=== PATIENT | male | born 1965 | race Caucasian/White ===

== ENCOUNTER 2016-09-11 21:17 | Inpatient (IN) | payer MEDICARE ==
[2016-09-11] MEDS ORDERED: RX INFO: IV CONTRAST WAS GIVEN 1 EACH MISC MISCELLANE PRN (21:40)
[2016-09-11] MEDS ORDERED: SODIUM CHLORIDE 0.9% 1,000 ML IV STA (21:40)
--- NOTE | 2016-09-11 21:44 | ED ---
General Adult HPI - General Chief complaint: Weakness Stated complaint: dizziness Time Seen by Provider: 09/11/16 21:34 Source: patient, RN notes reviewed Mode of arrival: wheelchair Limitations: no limitations - History of Present Illness Initial comments: Patient is a pleasant 50-year-old male presenting to the emergency department complaining of generalized weakness. Onset was just a couple hours ago. Patient does have dizziness that feels like a spinning type sensation. Patient feels slightly foggy with his thinking. No isolated area of weakness. No chest pain or dyspnea. No neck or back pain. No headache. No abdominal pain. Patient has had some episodes of vertigo in the past however not quite like this. - Related Data Home Medications Medication Instructions Recorded Confirmed DULoxetine HCL [Cymbalta] 30 mg PO DAILY 09/11/16 09/11/16 Gabapentin [Neurontin] 400 mg PO TID 09/11/16 09/11/16 Lisinopril [Zestril] 20 mg PO DAILY 09/11/16 09/11/16 Omeprazole 20 mg PO BID 09/11/16 09/11/16 QUEtiapine FUMARATE [SEROquel] 300 mg PO HS 09/11/16 09/11/16 busPIRone HCL 15 mg PO TID 09/11/16 09/11/16 lamoTRIgine [LaMICtal] 200 mg PO DIRECTED 09/11/16 09/11/16 Allergies Allergy/AdvReac Type Severity Reaction Status Date / Time No Known Allergies Allergy Verified 09/11/16 21:23 Review of Systems ROS Statement: Those systems with pertinent positive or pertinent negative responses have been documented in the HPI. ROS Other: All systems not noted in ROS Statement are negative. Constitutional: Denies: fever Eyes: Denies: eye pain ENT: Denies: ear pain Respiratory: Denies: cough Cardiovascular: Denies: chest pain Endocrine: Reports: fatigue Gastrointestinal: Denies: abdominal pain, vomiting Genitourinary: Denies: dysuria Musculoskeletal: Denies: back pain Skin: Denies: rash Neurological: Reports: weakness (Generalized), vertigo. Denies: headache Past Medical History Past Medical History: Hypertension Additional Past Medical History / Comment(s): GI Bleed History of Any Multi-Drug Resistant Organisms: None Reported Additional Past Surgical History / Comment(s): Forearm Past Psychological History: Anxiety, Depression Smoking Status: Current every day smoker Past Alcohol Use History: Heavy Past Drug Use History: None Reported, Heroin General Exam Limitations: no limitations General appearance: other (Patient appears drowsy however does carry conversation and follows commands.) Head exam: Present: atraumatic, normocephalic Eye exam: Present: normal appearance, PERRL, EOMI. Absent: nystagmus ENT exam: Present: normal oropharynx Neck exam: Present: normal inspection. Absent: tenderness Respiratory exam: Present: normal lung sounds bilaterally Cardiovascular Exam: Present: regular rate, normal rhythm GI/Abdominal exam: Present: soft. Absent: tenderness Extremities exam: Present: normal inspection Neurological exam: Present: alert, oriented X3, CN II-XII intact. Absent: motor sensory deficit Expanded Patient oriented to: Present: person, place, time Speech: Present: fluid speech Cranial nerves: EOM's Intact: Normal Cerebellar function: Finger to Nose: Normal Sensory exam: Upper Extremity Light Touch: Normal, Lower Extremity Light Touch: Normal Motor strength exam: RUE: 5, LUE: 5, RLE: 5, LLE: 5 Eye Response: (4) open spontaneously Motor Response: (6) obeys commands Verbal Response: (5) oriented Psychiatric exam: Present: normal affect, normal mood Skin exam: Absent: rash Course Vital Signs 09/11/16 09/11/16 09/11/16 21:21 21:43 22:33 Temperature 98 F Pulse Rate 93 94 Respiratory 20 18 Rate Blood Pressure 61/35 64/45 103/68 O2 Sat by Pulse 98 98 Oximetry EKG Findings - EKG Comments: EKG Findings:: Normal sinus rhythm at 84. ND 140. QRS 84. QT 380. QTC 449. Normal axis. Normal QRS. Normal ST-T. Medical Decision Making - Medical Decision Making Patient reevaluated and feels somewhat better. Secondary to hypotension patient will be admitted. Case was discussed in detail with Dr. larose, who will admit for hospital call. Patient updated on results and plan. Systolic blood pressure 100 with fluids. - Lab Data Result diagrams: 09/11/16 21:41 09/11/16 21:41 Lab Results 09/11/16 09/11/16 09/11/16 Range/Units 21:41 21:41 21:41 WBC 5.8 (3.8-10.6) k/uL RBC 3.82 L (4.30-5.90) m/uL Hgb 12.0 L (13.0-17.5) gm/dL Hct 37.7 L (39.0-53.0) % MCV 98.6 (80.0-100.0) fL MCH 31.4 (25.0-35.0) pg MCHC 31.8 (31.0-37.0) g/dL RDW 13.6 (11.5-15.5) % Plt Count 266 (150-450) k/uL Neutrophils % 66 % Lymphocytes % 20 % Monocytes % 5 % Eosinophils % 4 % Basophils % 2 % Neutrophils # 3.9 (1.3-7.7) k/uL Lymphocytes # 1.2 (1.0-4.8) k/uL Monocytes # 0.3 (0-1.0) k/uL Eosinophils # 0.2 (0-0.7) k/uL Basophils # 0.1 (0-0.2) k/uL PT (9.0-12.0) sec INR (<1.1) APTT (22.0-30.0) sec Sodium 138 (137-145) mmol/L Potassium 3.9 (3.5-5.1) mmol/L Chloride 106 (98-107) mmol/L Carbon Dioxide 21 L (22-30) mmol/L Anion Gap 11 mmol/L BUN 16 (9-20) mg/dL Creatinine 0.80 (0.66-1.25) mg/dL Est GFR (MDRD) Af Amer >60 (>60 ml/min/1.73 sqM) Est GFR (MDRD) Non-Af >60 (>60 ml/min/1.73 sqM) Glucose 137 H (74-99) mg/dL Calcium 9.2 (8.4-10.2) mg/dL Phosphorus 5.1 H (2.5-4.5) mg/dL Magnesium 1.7 (1.6-2.3) mg/dL Total Bilirubin 0.5 (0.2-1.3) mg/dL AST 41 (17-59) U/L ALT 49 (21-72) U/L Alkaline Phosphatase 67 (38-126) U/L Total Creatine Kinase 43 L (55-170) U/L CK-MB (CK-2) 1.3 (0.0-2.4) ng/mL CK-MB (CK-2) Rel Index 3.0 Troponin I <0.012 (0.000-0.034) ng/mL Total Protein 6.2 L (6.3-8.2) g/dL Albumin 3.5 (3.5-5.0) g/dL TSH 2.070 (0.465-4.680) mIU/L Free T4 0.86 (0.78-2.19) ng/dL Free T3 pg/mL 4.0 (2.8-5.3) pg/ml Urine Color Urine Appearance (Clear) Urine pH (5.0-8.0) Ur Specific [place] (1.001-1.035) Urine Protein (Negative) Urine Glucose (UA) (Negative) Urine Ketones (Negative) Urine Blood (Negative) Urine Nitrate (Negative) Urine Bilirubin (Negative) Urine Urobilinogen (<2.0) mg/dL Ur Leukocyte Esterase (Negative) Urine Opiates Screen (NotDetected) Ur Oxycodone Screen (NotDetected) Urine Methadone Screen (NotDetected) Ur Propoxyphene Screen (NotDetected) Ur Barbiturates Screen (NotDetected) U Tricyclic Antidepress (NotDetected) Ur Phencyclidine Scrn (NotDetected) Ur Amphetamines Screen (NotDetected) U Methamphetamines Scrn (NotDetected) U Benzodiazepines Scrn (NotDetected) Urine Cocaine Screen (NotDetected) U Marijuana (THC) Screen (NotDetected) Serum Alcohol <10 mg/dL 09/11/16 09/11/16 Range/Units 21:41 23:00 WBC (3.8-10.6) k/uL RBC (4.30-5.90) m/uL Hgb (13.0-17.5) gm/dL Hct (39.0-53.0) % MCV (80.0-100.0) fL MCH (25.0-35.0) pg MCHC (31.0-37.0) g/dL RDW (11.5-15.5) % Plt Count (150-450) k/uL Neutrophils % % Lymphocytes % % Monocytes % % Eosinophils % % Basophils % % Neutrophils # (1.3-7.7) k/uL Lymphocytes # (1.0-4.8) k/uL Monocytes # (0-1.0) k/uL Eosinophils # (0-0.7) k/uL Basophils # (0-0.2) k/uL PT 10.2 (9.0-12.0) sec INR 1.0 (<1.1) APTT 23.4 (22.0-30.0) sec Sodium (137-145) mmol/L Potassium (3.5-5.1) mmol/L Chloride (98-107) mmol/L Carbon Dioxide (22-30) mmol/L Anion Gap mmol/L BUN (9-20) mg/dL Creatinine (0.66-1.25) mg/dL Est GFR (MDRD) Af Amer (>60 ml/min/1.73 sqM) Est GFR (MDRD) Non-Af (>60 ml/min/1.73 sqM) Glucose (74-99) mg/dL Calcium (8.4-10.2) mg/dL Phosphorus (2.5-4.5) mg/dL Magnesium (1.6-2.3) mg/dL Total Bilirubin (0.2-1.3) mg/dL AST (17-59) U/L ALT (21-72) U/L Alkaline Phosphatase (38-126) U/L Total Creatine Kinase (55-170) U/L CK-MB (CK-2) (0.0-2.4) ng/mL CK-MB (CK-2) Rel Index Troponin I (0.000-0.034) ng/mL Total Protein (6.3-8.2) g/dL Albumin (3.5-5.0) g/dL TSH (0.465-4.680) mIU/L Free T4 (0.78-2.19) ng/dL Free T3 pg/mL (2.8-5.3) pg/ml Urine Color Light Yellow Urine Appearance Clear (Clear) Urine pH 7.0 (5.0-8.0) Ur Specific [place] 1.011 (1.001-1.035) Urine Protein Trace H (Negative) Urine Glucose (UA) Negative (Negative) Urine Ketones Negative (Negative) Urine Blood Negative (Negative) Urine Nitrate Negative (Negative) Urine Bilirubin Negative (Negative) Urine Urobilinogen <2.0 (<2.0) mg/dL Ur Leukocyte Esterase Negative (Negative) Urine Opiates Screen Not Detected (NotDetected) Ur Oxycodone Screen Not Detected (NotDetected) Urine Methadone Screen Not Detected (NotDetected) Ur Propoxyphene Screen Not Detected (NotDetected) Ur Barbiturates Screen Not Detected (NotDetected) U Tricyclic Antidepress Detected H (NotDetected) Ur Phencyclidine Scrn Not Detected (NotDetected) Ur Amphetamines Screen Not Detected (NotDetected) U Methamphetamines Scrn Not Detected (NotDetected) U Benzodiazepines Scrn Not Detected (NotDetected) Urine Cocaine Screen Not Detected (NotDetected) U Marijuana (THC) Screen Not Detected (NotDetected) Serum Alcohol mg/dL - Radiology Data Radiology results: report reviewed (CTA of the head and neck shows no acute process), image reviewed (Computed tomography scan of the brain and chest x-ray shows no acute process.) Disposition Clinical Impression: Hypotension Disposition: ADMITTED IP TO THIS HOSP
[2016-09-11 21:51] LABS: Basophils # (A) 0.1 k/uL (0-0.2); Basophils % (A) 2 %; CH 32.1; CHCM 32.7; Eosinophils # (A) 0.2 k/uL (0-0.7); Eosinophils % (A) 4 %; HCT 37.7 % (39.0-53.0); HDW 2.33; Luc # (Auto) 0.16; Luc % (Auto) 3; Lymphocytes # (A) 1.2 k/uL (1.0-4.8); Lymphocytes % (A) 20 %; MCH 31.4 pg (25.0-35.0); MCHC 31.8 g/dL (31.0-37.0); MCV 98.6 fL (80.0-100.0); Mean Platelet Volume 7.2; Monocytes # (A) 0.3 k/uL (0-1.0); Monocytes % (A) 5 %; Neutrophils # (A) 3.9 k/uL (1.3-7.7); Neutrophils % (A) 66 %; RBC 3.82 m/uL (4.30-5.90); RDW 13.6 % (11.5-15.5); WBC 5.8 k/uL (3.8-10.6); WBC (Perox) 6.22
[2016-09-11 22:01] LABS: Partial Thromboplastin Time 23.4 sec (22.0-30.0); Prothrombin Time 10.2 sec (9.0-12.0)
[2016-09-11 22:05] LABS: ALT 49 U/L (21-72); AST 41 U/L (17-59); Alcohol <10 mg/dL; Alkaline Phosphatase 67 U/L (38-126); Anion Gap 11 mmol/L; Blood Urea Nitrogen 16 mg/dL (9-20); Calcium 9.2 mg/dL (8.4-10.2); Carbon Dioxide 21 mmol/L (22-30); Chloride 106 mmol/L (98-107); Glucose 137 mg/dL (74-99); Magnesium 1.7 mg/dL (1.6-2.3); Non-African American GFR(MDRD) >60 (>60 ml/min/1.73 sqM); Phosphorous 5.1 mg/dL (2.5-4.5); Potassium 3.9 mmol/L (3.5-5.1); Sodium 138 mmol/L (137-145); Total Bilirubin 0.5 mg/dL (0.2-1.3); Total Protein 6.2 g/dL (6.3-8.2)
[2016-09-11 22:14] LABS: Creatine Kinase 43 U/L (55-170)
[2016-09-11 22:28] LABS: Creatine Kinase MB 1.3 ng/mL (0.0-2.4); Troponin I <0.012 ng/mL (0.000-0.034)
--- NOTE | 2016-09-11 22:29 | XR ---
EXAMINATION TYPE: XR chest 2V DATE OF EXAM: 09/11/2016 10:18 PM COMPARISON: NONE HISTORY: Weakness and dizziness TECHNIQUE: Frontal and lateral views of the chest are obtained. FINDINGS: There is elevated left diaphragm. There is some linear density at the lung bases and more on the left side. There is no heart failure. Heart size is normal. There are chest leads. There is ol d right-sided healed rib fracture. IMPRESSION: Bilateral mild atelectasis. Elevated left diaphragm. No heart failure.
--- NOTE | 2016-09-11 22:40 | CT ---
EXAMINATION TYPE: CT brain wo con DATE OF EXAM: 09/11/2016 10:32 PM COMPARISON: NONE HISTORY: Weakness and dizziness CT DLP: mGycm Automated exposure control for dose reduction was used. FINDINGS: The ventricles and sulci appear normal. There is no mass effect nor midline shift. There is no sign o f intracranial hemorrhage. There is some mucosal thickening in the ethmoid and frontal sinuses. Simone rium is intact. IMPRESSION: Frontal and ethmoid sinusitis. No intracranial abnormality.
--- NOTE | 2016-09-11 22:46 | CT ---
EXAMINATION TYPE: CT angio head neck DATE OF EXAM: 09/11/2016 10:32 PM COMPARISON: NONE HISTORY: Weakness and dizziness CT DLP: mGycm Automated exposure control for dose reduction was used. TECHNIQUE: Multiple axial sections were obtained from the aortic arch to the vertex of the brain with intravenou s contrast. FINDINGS: There are 3-D post processed images. There is bilateral patency of the vertebral arteries. There is bilateral patency of the common internet network specialist al and external carotid arteries. There is normal branching pattern of the great vessels on the aorti c arch. There is tortuosity in the distal internal carotid arteries. There is patency of the vertebrobasilar artery system. There is patency of the anterior middle and po sterior cerebral arteries. There is no evidence of aneurysm or neovascularity. There is no mass effec t. There is normal appearance of the venous sinuses. The remainder of exam is unremarkable. IMPRESSION: NEGATIVE CT ANGIOGRAM OF THE NECK. NO EVIDENCE OF HEMODYNAMICALLY SIGNIFICANT STENOSIS. NEGATIVE CT ANGIOGRAM OF THE BRAIN. NO EVIDENCE OF ARTERIAL DISSECTION.
[2016-09-11 23:09] LABS: Appearance,Urine Clear (Clear); Bilirubin,Urine Negative (Negative); Glucose,Urine (UA) Negative (Negative); Ketones,Urine Negative (Negative); Leukocyte Esterase,Urine Negative (Negative); Nitrite,Urine Negative (Negative); Protein,Urine Trace (Negative); Specific Gravity,Urine 1.011 (1.001-1.035); UA Billing (MACRO vs. MICRO) CHEM; Urobilinogen,Urine <2.0 mg/dL (<2.0)
[2016-09-11] MEDS ORDERED: NALOXONE 0.4 MG/ML 1 ML VIAL IV PRN (23:32)
[2016-09-11] MEDS: SODIUM CHLORIDE 0.9% 1,000 ML IV SCH (23:40)
[2016-09-12 01:05] VITALS: RESP 18; BMI 27.4
[2016-09-12 03:26] LABS: Basophils % (A) 0 %; CH 31.5; CHCM 31.6; Eosinophils # (A) 0.2 k/uL (0-0.7); Eosinophils % (A) 4 %; HCT 36.1 % (39.0-53.0); HDW 2.34; HGB 11.6 gm/dL (13.0-17.5); Luc # (Auto) 0.22; Luc % (Auto) 4; Lymphocytes # (A) 1.3 k/uL (1.0-4.8); Lymphocytes % (A) 27 %; MCH 32.2 pg (25.0-35.0); MCHC 32.2 g/dL (31.0-37.0); Mean Platelet Volume 6.4; Monocytes # (A) 0.3 k/uL (0-1.0); Monocytes % (A) 7 %; Neutrophils # (A) 2.9 k/uL (1.3-7.7); Neutrophils % (A) 58 %; RBC 3.61 m/uL (4.30-5.90); RDW 13.6 % (11.5-15.5); WBC (Perox) 4.93
[2016-09-12 03:45] LABS: ALT 49 U/L (21-72); AST 30 U/L (17-59); Alkaline Phosphatase 60 U/L (38-126); Anion Gap 6 mmol/L; Blood Urea Nitrogen 14 mg/dL (9-20); Calcium 8.9 mg/dL (8.4-10.2); Carbon Dioxide 27 mmol/L (22-30); Chloride 108 mmol/L (98-107); Glucose 133 mg/dL (74-99); Non-African American GFR(MDRD) >60 (>60 ml/min/1.73 sqM); Potassium 3.9 mmol/L (3.5-5.1); Sodium 141 mmol/L (137-145); Total Bilirubin 0.5 mg/dL (0.2-1.3); Total Protein 5.7 g/dL (6.3-8.2)
[2016-09-12] MEDS: SODIUM CHLORIDE 0.9% 1,000 ML IV SCH ×2 (08:51→15:43)
[2016-09-12] MEDS ORDERED: LISINOPRIL 20 MG TAB PO SCH (12:15)
[2016-09-12] MEDS ORDERED: DULoxetine HCL 30 MG CAPSULE.DR PO SCH (12:30)
[2016-09-12] MEDS: busPIRone HCl 5 MG TAB PO SCH ×2 (12:38→15:49)
[2016-09-12] MEDS: GABAPENTIN 400 MG CAP PO SCH ×2 (12:38→15:48)
[2016-09-12] MEDS ORDERED: lamoTRIgine 100 MG TAB PO SCH (13:30)
--- NOTE | 2016-09-12 14:06 | HP ---
DATE OF ADMISSION: 09/11/2016 PRESENTING COMPLAINT: Dizzy, lightheaded. HISTORY OF PRESENTING COMPLAINT: This is a 50-year-old patient who has just moved to [place] from [place], has a history of hypertension. Chronic stable conditions include anxiety, depression, GERD, GI bleed. Patient was rushed to go out yesterday evening, took a shower and he thinks he may by mistake, taken an extra dose of Lamictal or an extra dose of Zestril that is 20 mg and subsequently then he started feeling dizzy, unstable, felt just drained. He lives at a three-quarter house and the person who runs the place brought him in. Patient's blood pressure when he first came in her was down to 61/35. CT scan was negative. REVIEW OF SYSTEMS: CONSTITUTIONAL: Tired. HEENT: Dizziness. RESPIRATORY: None. CARDIOVASCULAR: No palpitations or chest pain. GASTROINTESTINAL: Heartburn. GENITOURINARY: None. MUSCULOSKELETAL: None. DERMATOLOGICAL: None. HEMATOLOGICAL: None. LYMPHATICS: None. PSYCHIATRY: Anxiety, depression. NEUROLOGICAL: As above with no focal signs. Past medical history of hypertension, anxiety, depression, GERD, GI bleed. PAST SURGICAL HISTORY: Forearm injury, psych history of anxiety, depression, PTSD. SOCIAL HISTORY: Patient has drank on and off, the last alcohol drinking binge was for 3 months, stopped on June 28, used to smoke, drank two fifths a day. Also did heroin in the past. Large binge; stopped on June 28. Family history of hypertension and lupus. SOCIAL HISTORY: Currently living in a three-quarter house, smokes about 15 cigarettes a day. FAMILY HISTORY: Noncontributory to presentation. HOME MEDICATIONS: 1. Buspirone 50 mg p.o. t.i.d. 2. Zestril 20 mg p.o. daily. 3. Neurontin 40 mg p.o. t.i.d. 4. Cymbalta 30 mg p.o. daily. 5. Lamictal 200 mg as directed. 6. Seroquel 300 mg q.h.s. 7. Omeprazole 20 mg b.i.d. ALLERGIES: None. On exam, vitals on presentation: Temperature 98, pulse 93, respirations 20, blood pressure 61/35, pulse ox 98% on room air. GENERAL APPEARANCE: Average build, lying in bed, tired -appearing. EYES: Pupils equal. Conjunctivae normal. HEENT: External appearance of nose and ears normal. Oral cavity normal. NECK: JVD not raised. Mass not palpable. Respiratory effort normal. LUNGS: Slight decreased breath sounds. CARDIOVASCULAR: First and second sounds are normal. No edema. ABDOMEN: Soft, nontender. Liver and spleen not palpable. LYMPHATIC: No lymph node palpable in neck or axillae. PSYCHIATRY: Alert and oriented x3. Mood and affect normal. DERMATOLOGICAL: Tattoos are present. INVESTIGATIONS: White count 5.8, hemoglobin 12, potassium 3.9. BUN and creatinine are normal. Urine drug screen positive for tricyclic antidepressants, depressions. EKG shows normal sinus rhythm. CT angiogram of the brain, negative. CT scan of the brain, nil acute. ASSESSMENT: 1. Upon discharge, patient presented with acute dizziness, difficulty in speech, after he thinks he may have taken an extra dose of Prinivil. This was confirmed for the fact that patient's blood pressure was low 60 systolic when her first came. I except this to wear out of the system in the next 24 hours. Patient will be worse later towards the evening. Blood pressure was already started to come up. 2. Anxiety, not otherwise specified. 3. Depression, not otherwise specified. 4. Gastroesophageal reflux disease. 5. Essential hypertension. 6. Chronic nicotine dependence. Patient is an active cigarette smoker. PLAN: Keep a close eye on blood pressure. Home medications are resumed except for antihypertensive. If patient is doing better by this evening, patient will probably be let go. Patient advised against smoking. Patient currently does not have a family doctor and is ( ) establishing himself with Dr. Paniagua.
[2016-09-12 16:06] VITALS: BP 152/99; PULSE 78; TEMP 96.8
[2016-09-12] MEDS ORDERED: QUEtiapine 100 MG TAB PO SCH (21:00)
--- NOTE | 2016-09-13 08:36 | EEG ---
DATE OF SERVICE: 09/12/2016 INDICATIONS FOR EXAMINATION: Dizziness and vertigo. AGE: 50Y DESCRIPTION OF PROCEDURE: This EEG was performed using a 21 channel digital electroencephalograph following international 10-20 system. DESCRIPTION OF THE RECORDING: From the beginning of the tracing, with the patient's eyes closed, the background rhythm was mostly consisting of 9 Hz alpha frequency in the posterior occipital leads. No obvious asymmetry is seen. Photic stimulation was performed with a minimal driving response seen. No pathological waves were elicited. Occasional muscle artifacts and movement artifacts are seen. Hyperventilation was not performed. The patient remains awake throughout the tracing. No epileptiform discharges were seen. His EKG lead showed regular rate and rhythm. INTERPRETATION: This awake EEG can be considered within normal limits. There was no asymmetry seen. No epileptiform discharges were noticed. The absence of epileptiform discharges does not rule out the diagnosis of epilepsy. Therefore, clinical correlation is recommended.
[2016-09-13] MEDS ORDERED: PANTOPRAZOLE 40 MG TABLET PO SCH (12:30)
--- NOTE | 2016-09-13 21:21 | DS ---
DATE OF ADMISSION: 09/11/2016 DATE OF DISCHARGE: 09/12/2016 FINAL DIAGNOSES: 1. Acute hypotension due to medication induced. 2. Anxiety, not otherwise specified. 3. Depression, not otherwise specified. 4. Gastroesophageal reflux disease. 5. Essential hypertension. 6. Chronic nicotine dependence. Patient active cigarette smoker. HOSPITAL COURSE: This patient presented for severe dizziness, found to have a blood pressure down to systolic 64 after patient may have taken an extra dose of Prinivil. Patient's blood pressure doing much better, up and out of bed at time of discharge. CT scan of brain was unremarkable. Care was discussed with the patient. Patient counseled against smoking. On exam, LUNGS: Fair air entry. CARDIOVASCULAR: First and second sounds normal. DISCHARGE MEDICATIONS: 1. Cymbalta 30 mg a day. 2. Neurontin 400 mg p.o. t.i.d. 3. Zestril 20 mg p.o. b.i.d. 4. Omeprazole 20 mg b.i.d. 5. Seroquel 200 mg p.o. q.h.s. 6. Buspirone 50 mg p.o. t.i.d. 7. Lamictal 200 mg as directed. 8. Nicotine patch. Patient due to see Dr. Paniagua, follow up with him in 1 week. Care was discussed with the patient.
--- NOTE | 2016-09-18 12:01 | CONS ---
DATE OF CONSULTATION: 09/12/2016 CHIEF COMPLAINT: Dizziness. HISTORY OF PRESENT ILLNESS: Mr. Parsons is a pleasant 50-year-old male who is being evaluated today on 09/12/2016 by the neurology service per the request of Dr. Guajardo for dizziness. The patient was brought into [facility] emergency room complaining of some generalized weakness and significant dizziness which he describes as spinning sensation and lightheaded sensation. His blood pressure in the emergency room was significantly low at 61/35. The patient does have history of hypertension and does take Lisinopril at home. The patient does believe that he accidentally took two Lisinopril yesterday. A CT scan of the brain was done, which showed no intracranial abnormality abnormalities. There was evidence of frontal and ethmoidal sinusitis. A CT angiogram of the brain and neck were normal. His CBC showed mild anemia with a hemoglobin of 11.6 and hematocrit of 36%. His comprehensive metabolic profile, cardiac enzymes, and urinalysis were normal. I did review his EEG, which was normal. At the time of my evaluation, the patient is lying in his bed and appears to be in no acute distress. His blood pressure is back to normal with the latest reading 110/68. He denies any symptoms at this time. PAST MEDICAL HISTORY: Hypertension, gastroesophageal reflux disease, history of GI bleed, depression, anxiety disorder. SOCIAL HISTORY: The patient is a current every day smoker. He frequently drinks alcohol. He denies any current use. FAMILY HISTORY: Noncontributory. HOME MEDICATIONS: Reviewed in the chart. ALLERGIES: No known drug allergies. REVIEW OF SYSTEMS: As mentioned above and otherwise negative. PHYSICAL EXAM: Vital signs show a temperature of 98.0, pulse 75, respirations 18, blood pressure 110/68. GENERAL APPEARANCE: The patient is a well-developed male who appears to be in no acute distress. HEENT: Normocephalic, atraumatic, no facial asymmetry is seen. Neck is supple with no masses felt. CARDIOVASCULAR: Regular rate and rhythm. ABDOMEN: Nontender, nondistended. EXTREMITIES: No edema or clubbing. NEUROLOGICAL EXAM: The patient is alert, aware, and oriented x3. Speech and language are normal. Strength is full in all 4 extremities. Sensory exam was normal to light touch in all 4 extremities. No facial asymmetry is seen on cranial nerve testing. No tremors or seizure-like activity is seen. IMPRESSION: 1. Dizziness, resolved. 2. Hypotension. 3. Tobacco dependence. RECOMMENDATIONS: The patient does have significant dizziness and was found to have some generalized fatigue and weakness, but this was due to his significant hypotension. As mentioned above, the patient believes that he took an extra dose of Lisinopril by mistake. His blood pressure is better at this time and his symptoms have completely resolved. I did review his EEG and CT scan of the brain, which showed no significant abnormalities. No further inpatient neurological work-up is needed. The patient was counseled on tobacco cessation. From a neurology standpoint, the patient is cleared for discharge. Thank you for allowing me to participate in the care of your patient. If you have any questions, please feel free to contact me.
== END 2016-09-12 18:42 | disposition home or self-care (01) | DRG 918 ==
LOC: EC 21:17 → 6SEL 23:31
PROVIDERS: ADMIT Hospitalist; ATTEND Hospitalist
DX: T46.4X1A Poisoning by angiotensin-converting-enzyme inhibitors, accidental (unintentional), initial encounter (principal); I95.2 Hypotension due to drugs; I10 Essential (primary) hypertension; F41.9 Anxiety disorder, unspecified; F32.9 Major depressive disorder, single episode, unspecified; F43.10 Post-traumatic stress disorder, unspecified; K21.9 Gastro-esophageal reflux disease without esophagitis; F17.210 Nicotine dependence, cigarettes, uncomplicated; Z82.49 Family history of ischemic heart disease and other diseases of the circulatory system; Z79.899 Other long term (current) drug therapy; Z71.6 Tobacco abuse counseling; Z87.828 Personal history of other (healed) physical injury and trauma; Z87.19 Personal history of other diseases of the digestive system; Z83.2 Family history of diseases of the blood and blood-forming organs and certain disorders involving the immune mechanism; Y92.099 Unspecified place in other non-institutional residence as the place of occurrence of the external cause
CPT/HCPCS: 36415; 70450; 70496; 70498; 71020; 80053; 80306; 80320; 81003; 82550; 82553; 83735; 84100; 84439; 84443; 84481; 84484; 85025; 85610; 85730; 93005; 95819; 96360; 96361; 99285

== ENCOUNTER 2017-04-18 22:30 | Emergency (ER) | payer MEDICARE ==
[2017-04-18] MEDS ORDERED: SODIUM CHLORIDE 0.9% 1,000 ML IV STA (22:41)
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
--- NOTE | 2017-04-18 23:45 | XR ---
EXAMINATION TYPE: XR pelvis AP view DATE OF EXAM: 04/18/2017 COMPARISON: NONE HISTORY: Fall. Pain. TECHNIQUE: Single view FINDINGS: Pelvic ring is intact. Proximal femurs and hip joints are intact. Sacroiliac joints appear normal. IMPRESSION: Negative pelvis x-ray exam.
--- NOTE | 2017-04-18 23:46 | XR ---
EXAMINATION TYPE: XR chest 1V DATE OF EXAM: 04/18/2017 COMPARISON: 09/11/2016 HISTORY: Altered mental status. Chest pain TECHNIQUE: Single frontal view of the chest is obtained. FINDINGS: There is elevated left diaphragm. There is no sign of pneumothorax. There are chest leads. There is no heart failure. Trachea is midline. I see no definite pleural effusion. 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 This is simila r to old exam. There is probably some atelectasis in the left lower lobe. No heart failure.
[2017-04-18 23:51] LABS: Basophils # (A) 0.1 k/uL (0-0.2); Basophils % (A) 1 %; CH 31.8; CHCM 31.4; Eosinophils # (A) 0.3 k/uL (0-0.7); Eosinophils % (A) 3 %; HCT 43.4 % (39.0-53.0); HDW 2.12; HGB 13.1 gm/dL (13.0-17.5); Luc # (Auto) 0.25; Luc % (Auto) 3; Lymphocytes # (A) 1.4 k/uL (1.0-4.8); Lymphocytes % (A) 16 %; MCH 30.9 pg (25.0-35.0); MCHC 30.2 g/dL (31.0-37.0); MCV 102.1 fL (80.0-100.0); Macrocytosis Slight; Mean Platelet Volume 7.5; Monocytes # (A) 0.5 k/uL (0-1.0); Monocytes % (A) 5 %; Neutrophils # (A) 6.4 k/uL (1.3-7.7); Neutrophils % (A) 72 %; RBC 4.25 m/uL (4.30-5.90); RDW 15.5 % (11.5-15.5); WBC 8.9 k/uL (3.8-10.6)
[2017-04-18 23:58] LABS: INR 0.9 (<1.2); Partial Thromboplastin Time 23.8 sec (22.0-30.0); Prothrombin Time 9.5 sec (9.0-12.0)
[2017-04-18 23:58] LABS: ALT 35 U/L (21-72); AST 50 U/L (17-59); Alkaline Phosphatase 81 U/L (38-126); Anion Gap 20 mmol/L; Blood Urea Nitrogen 17 mg/dL (9-20); Calcium 8.7 mg/dL (8.4-10.2); Carbon Dioxide 15 mmol/L (22-30); Chloride 110 mmol/L (98-107); Glucose 68 mg/dL (74-99); Magnesium 1.8 mg/dL (1.6-2.3); Non-African American GFR(MDRD) >60 (>60 ml/min/1.73 sqM); Phosphorus 3.8 mg/dL (2.5-4.5); Potassium 4.1 mmol/L (3.5-5.1); Sodium 145 mmol/L (137-145); Total Bilirubin 0.4 mg/dL (0.2-1.3); Total Protein 6.5 g/dL (6.3-8.2)
[2017-04-19 00:09] LABS: Alcohol 388 mg/dL
[2017-04-19 00:10] LABS: Creatine Kinase 195 U/L (55-170)
[2017-04-19 00:22] LABS: Troponin I <0.012 ng/mL (0.000-0.034)
[2017-04-19 00:26] LABS: Creatine Kinase MB 3.2 ng/mL (0.0-2.4)
[2017-04-19 05:47] LABS: Glucose,Whole Blood 79 mg/dL (75-99)
[2017-04-19 06:06] LABS: Amorphous Sediment,Urine Occasional /hpf; Appearance,Urine Cloudy (Clear); Bilirubin,Urine Negative (Negative); Glucose,Urine (UA) Negative (Negative); Ketones,Urine 1+ (Negative); Leukocyte Esterase,Urine Negative (Negative); Nitrite,Urine Negative (Negative); Particle Count 4030; Protein,Urine Negative (Negative); RBC,Urine <1 /hpf (0-5); Specific Gravity,Urine 1.007 (1.001-1.035); Squamous Epithelial Cell,Urine 4 /hpf (0-4); UA Billing (MACRO vs. MICRO) MICRO; Urobilinogen,Urine <2.0 mg/dL (<2.0)
[2017-04-19 13:14] VITALS: BP 116/64; PULSE 87; RESP 18; TEMP 97.8
--- NOTE | 2017-04-20 07:43 | PCN ---
Documentation Clarification OP Dear Dr. Wicho Grande Please do addendum to ED report for missing facial laceration length Thank you, Rayray Menjivar Yard Motor Operator If you have any questions, please contact [employer] Administrator at [phone] [facility]
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
== END 2017-04-19 13:14 | disposition home or self-care (01) ==
LOC: EC 22:30
DX: S01.81XA Laceration without foreign body of other part of head, initial encounter (principal); F10.120 Alcohol abuse with intoxication, uncomplicated; F43.20 Adjustment disorder, unspecified; I10 Essential (primary) hypertension; F41.9 Anxiety disorder, unspecified; F32.9 Major depressive disorder, single episode, unspecified; F43.10 Post-traumatic stress disorder, unspecified; F17.200 Nicotine dependence, unspecified, uncomplicated; Z79.899 Other long term (current) drug therapy; Z79.51 Long term (current) use of inhaled steroids; Y04.2XXA Assault by strike against or bumped into by another person, initial encounter
CPT/HCPCS: 12014; 36415; 70450; 70486; 71010; 72125; 72170; 80053; 80306; 80320; 81001; 82075; 82550; 82553; 83735; 84100; 84484; 85025; 85610; 85730; 87086; 93005; 96360; 96361; 99285

== ENCOUNTER 2017-04-21 07:02 | Inpatient (IN) | payer MEDICARE ==
[2017-04-21] MEDS ORDERED: SODIUM CHLORIDE 0.9% 1,000 ML IV ONE ×2 (07:27→08:40)
[2017-04-21] MEDS ORDERED: ONDANSETRON 4 MG/2 ML VIAL IVP STA (07:28)
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
[2017-04-21 07:43] LABS: Basophils % (A) 1 %; CH 31.2; CHCM 31.6; Eosinophils # (A) 0.3 k/uL (0-0.7); Eosinophils % (A) 4 %; HCT 39.7 % (39.0-53.0); HDW 2.02; HGB 12.7 gm/dL (13.0-17.5); Luc # (Auto) 0.17; Luc % (Auto) 3; Lymphocytes # (A) 1.2 k/uL (1.0-4.8); Lymphocytes % (A) 18 %; MCH 31.8 pg (25.0-35.0); MCHC 32.1 g/dL (31.0-37.0); MCV 99.2 fL (80.0-100.0); Macrocytosis Slight; Monocytes # (A) 0.4 k/uL (0-1.0); Monocytes % (A) 6 %; Neutrophils # (A) 4.5 k/uL (1.3-7.7); Neutrophils % (A) 69 %; RDW 14.6 % (11.5-15.5); WBC 6.5 k/uL (3.8-10.6); WBC (Perox) 6.67
[2017-04-21 07:58] LABS: ALT 29 U/L (21-72); AST 35 U/L (17-59); Alkaline Phosphatase 69 U/L (38-126); Anion Gap 13 mmol/L; Blood Urea Nitrogen 10 mg/dL (9-20); Calcium 8.8 mg/dL (8.4-10.2); Carbon Dioxide 20 mmol/L (22-30); Chloride 113 mmol/L (98-107); Glucose 73 mg/dL (74-99); Non-African American GFR(MDRD) >60 (>60 ml/min/1.73 sqM); Sodium 146 mmol/L (137-145); Total Bilirubin 0.4 mg/dL (0.2-1.3); Total Protein 6.3 g/dL (6.3-8.2)
--- NOTE | 2017-04-21 08:15 | CT ---
EXAMINATION TYPE: CT brain wo con DATE OF EXAM: 04/21/2017 COMPARISON: Previous study dated 04/18/2017 HISTORY: Recent fall, dizziness and nausea since CT DLP: 1144.8 mGycm Automated exposure control for dose reduction was used. FINDINGS: Central structures are midline. There is no evidence of hydrocephalus. No acute focal lesion, mass ef fect or midline shift is seen. I do not see evidence of IMPRESSION: 1. NO ACUTE INTRACRANIAL ABNORMALITY. 2. LEFT SCALP SWELLING. 3. CHRONIC SINUS MUCOSAL DISEASE.
[2017-04-21 15:06] VITALS: BMI 25.6
[2017-04-21] MEDS ORDERED: MAG HYDROX/AL HYDROX/SIMETH 30 ML CUP PO PRN (15:21)
[2017-04-21] MEDS ORDERED: MAGNESIUM HYDROXIDE 2,400 MG/10 ML CUP PO PRN (15:21)
[2017-04-21] MEDS: PANTOPRAZOLE 40 MG TABLET PO SCH (16:37)
[2017-04-21] MEDS: LORazepam 1 MG TAB PO PRN (18:53)
[2017-04-21] MEDS: SYMBICORT 160-4.5 MCG INHALER INHALATION SCH (20:33)
[2017-04-21] MEDS: QUEtiapine 200 MG TAB PO SCH ×2 (21:41→23:03)
[2017-04-22] MEDS: ALBUTEROL INHALER 60 PUFF/8 GM INHALER INHALATION PRN ×3 (08:57→21:35)
[2017-04-22] MEDS: SYMBICORT 160-4.5 MCG INHALER INHALATION SCH ×2 (08:57→21:35)
[2017-04-22] MEDS: lamoTRIgine 25 MG TAB PO SCH (09:02)
[2017-04-22] MEDS: DULoxetine HCL 30 MG CAPSULE.DR PO SCH (09:02)
[2017-04-22] MEDS: LISINOPRIL 20 MG TAB PO SCH (09:02)
[2017-04-22] MEDS: PANTOPRAZOLE 40 MG TABLET PO SCH (09:02)
[2017-04-22 11:59] LABS: Hemoglobin A1C 5.6 % (4.2-6.1)
[2017-04-22] MEDS: ACETAMINOPHEN TAB 325 MG TAB PO PRN ×2 (12:25→21:29)
[2017-04-22] MEDS: LORazepam 1 MG TAB PO PRN ×2 (12:26→21:29)
--- NOTE | 2017-04-22 12:42 | P.CONS ---
History of Present Illness - Reason for Consult Consult date: 04/22/17 Medical management - Chief Complaint Severe depression - History of Present Illness This is a 51-year-old gentleman with past medical history noted below significant for chronic alcohol abuse and severe depression who presented to the emergency room originally couple of days ago after he sustained a fall at home and had a laceration on his forehead that was stitched and patient was found to be alcohol intoxicated so he was hydrated until he was sober and then he was released from the emergency room. He subsequently felt more depressed and continued to drink and at some point he was feeling suicidal. He did not have a specific plan. He'll return to the emergency room for further evaluation. He was admitted to the psychiatry unit. He feels relatively better today. No issues otherwise. Urine toxicology screen was negative. Review of Systems Review of system: 14 points review of systems were obtained and were negative except to what were mentioned in the HPI. Past Medical History Past Medical History: GERD/Reflux, Hypertension, Musculoskeletal Disorder Additional Past Medical History / Comment(s): GI Bleed History of Any Multi-Drug Resistant Organisms: None Reported Past Surgical History: Bariatric Surgery, Orthopedic Surgery Additional Past Surgical History / Comment(s): Left inner Forearm-metal plate Past Anesthesia/Blood Transfusion Reactions: No Reported Reaction Smoking Status: Current every day smoker - Past Family History Mother Family Medical History: Hypertension Additional Family Medical History / Comment(s): Lupus Medications and Allergies Home Medications Medication Instructions Recorded Confirmed Type DULoxetine HCL [Cymbalta] 30 mg PO DAILY 09/11/16 04/21/17 History Gabapentin [Neurontin] 400 mg PO TID 09/11/16 04/21/17 History Lisinopril [Zestril] 20 mg PO DAILY 09/11/16 04/21/17 History Omeprazole 20 mg PO BID 09/11/16 04/21/17 History QUEtiapine FUMARATE [SEROquel] 300 mg PO HS 09/11/16 04/21/17 History lamoTRIgine [LaMICtal] 200 mg PO DAILY 09/11/16 04/21/17 History Budesonide/Formoterol Fumarate 2 puff INHALATION RT-BID 04/18/17 04/21/17 History [Symbicort 160-4.5 Mcg Inhaler] Dicyclomine [Bentyl] 20 mg PO QID 04/18/17 04/21/17 History Albuterol Inhaler [Ventolin Hfa 1 - 2 puff INHALATION RT-Q6H PRN 04/21/17 History Inhaler] busPIRone HCL 15 mg PO TID 04/21/17 04/21/17 History Allergies Allergy/AdvReac Type Severity Reaction Status Date / Time No Known Allergies Allergy Verified 04/21/17 11:30 Physical Exam Vitals: Vital Signs Temp Pulse Pulse Resp BP BP BP 04/22/17 09:41 99 20 136/83 04/22/17 07:00 97.7 F 79 16 138/94 04/21/17 18:43 92 16 157/83 04/21/17 14:11 99.5 F 67 18 04/21/17 14:04 75 16 124/74 04/21/17 13:08 98.0 F 68 16 102/70 Pulse Ox 04/22/17 09:41 04/22/17 07:00 04/21/17 18:43 04/21/17 14:11 04/21/17 14:04 100 04/21/17 13:08 99 General: The patient is awake and alert, in no distress Eye: there is normal conjunctiva bilaterally. Neck: The neck is supple, there is no JVD. Cardiovascular: Normal S1-S2, no S3-S4, no murmurs. Respiratory: Lungs clear to auscultation bilaterally Gastrointestinal: Abdomen is soft, nontender Musculoskeletal: There is no pedal edema. Neurological:. Speech is normal. Skin: Skin is warm and dry Results CBC & Chem 7: 04/21/17 07:31 04/21/17 07:31 Labs: Abnormal Lab Results - Last 24 Hours (Table) 04/21/17 Range/Units 07:31 HDL Cholesterol 61 H (40-60) mg/dL Assessment and Plan Plan: 1. Major depressive disorder with suicidal thoughts, managed by psychiatry 2. Essential hypertension: Blood pressure well-controlled 3. Alcohol abuse, counseled extensively to quit 4. Underlying COPD with no evidence of exacerbation Today, I reviewed her medication list and lab work results. Continue current regimen. Thank you very much for the consultation. I will continue to follow up on the patient on as-needed basis
--- NOTE | 2017-04-22 16:36 | P.HP ---
Psychiatric H&P - . H&P Date: 04/22/17 History & Physical: Allergies Allergy/AdvReac Type Severity Reaction Status Date / Time No Known Allergies Allergy Verified 04/21/17 11:30 Vital Signs Temp 97.7 F 04/22/17 07:00 Pulse 99 04/22/17 09:41 Resp 20 04/22/17 09:41 BP 136/83 04/22/17 09:41 Pulse Ox 100 04/21/17 14:04 Intake & Output 04/21/17 04/22/17 04/22/17 18:59 06:59 18:59 Intake Total 1000 Balance 1000 Weight 76.43 kg 78.9 kg Intake: IV 1000 Invasive Line 1 1000 Laboratory Last Values WBC 6.5 k/uL (3.8-10.6) 04/21/17 07:31 RBC 4.00 m/uL (4.30-5.90) L 04/21/17 07:31 Hgb 12.7 gm/dL (13.0-17.5) L 04/21/17 07:31 Hct 39.7 % (39.0-53.0) 04/21/17 07:31 MCV 99.2 fL (80.0-100.0) 04/21/17 07:31 MCH 31.8 pg (25.0-35.0) 04/21/17 07:31 MCHC 32.1 g/dL (31.0-37.0) 04/21/17 07:31 RDW 14.6 % (11.5-15.5) 04/21/17 07:31 Plt Count 349 k/uL (150-450) 04/21/17 07:31 Neutrophils % 69 % 04/21/17 07:31 Lymphocytes % 18 % 04/21/17 07:31 Monocytes % 6 % 04/21/17 07:31 Eosinophils % 4 % 04/21/17 07:31 Basophils % 1 % 04/21/17 07:31 Neutrophils # 4.5 k/uL (1.3-7.7) 04/21/17 07:31 Lymphocytes # 1.2 k/uL (1.0-4.8) 04/21/17 07:31 Monocytes # 0.4 k/uL (0-1.0) 04/21/17 07:31 Eosinophils # 0.3 k/uL (0-0.7) 04/21/17 07:31 Basophils # 0.0 k/uL (0-0.2) 04/21/17 07:31 Macrocytosis Slight 04/21/17 07:31 Sodium 146 mmol/L (137-145) H 04/21/17 07:31 Potassium 4.0 mmol/L (3.5-5.1) 04/21/17 07:31 Chloride 113 mmol/L (98-107) H 04/21/17 07:31 Carbon Dioxide 20 mmol/L (22-30) L 04/21/17 07:31 Anion Gap 13 mmol/L 04/21/17 07:31 BUN 10 mg/dL (9-20) 04/21/17 07:31 Creatinine 0.66 mg/dL (0.66-1.25) 04/21/17 07:31 Est GFR (MDRD) Af Amer >60 (>60 ml/min/1.73 sqM) 04/21/17 07:31 Est GFR (MDRD) Non-Af >60 (>60 ml/min/1.73 sqM) 04/21/17 07:31 Glucose 73 mg/dL (74-99) L 04/21/17 07:[address] Glu mg/dL 114 mg/dL 04/21/17 07:31 Hemoglobin A1c 5.6 % (4.2-6.1) 04/21/17 07:31 Calcium 8.8 mg/dL (8.4-10.2) 04/21/17 07:31 Total Bilirubin 0.4 mg/dL (0.2-1.3) 04/21/17 07:31 AST 35 U/L (17-59) 04/21/17 07:31 ALT 29 U/L (21-72) 04/21/17 07:31 Alkaline Phosphatase 69 U/L (38-126) 04/21/17 07:31 Total Protein 6.3 g/dL (6.3-8.2) 04/21/17 07:31 Albumin 3.6 g/dL (3.5-5.0) 04/21/17 07:31 Triglycerides 141 mg/dL (<150) 04/21/17 07:31 Cholesterol 163 mg/dL (<200) 04/21/17 07:31 LDL Cholesterol, Calc 74 mg/dL (0-99) 04/21/17 07:31 HDL Cholesterol 61 mg/dL (40-60) H 04/21/17 07:31 TSH 2.420 mIU/L (0.465-4.680) 04/21/17 07:31 Urine Opiates Screen Not Detected (NotDetected) 04/21/17 10:43 Ur Oxycodone Screen Not Detected (NotDetected) 04/21/17 10:43 Urine Methadone Screen Not Detected (NotDetected) 04/21/17 10:43 Ur Propoxyphene Screen Not Detected (NotDetected) 04/21/17 10:43 Ur Barbiturates Screen Not Detected (NotDetected) 04/21/17 10:43 U Tricyclic Antidepress Not Detected (NotDetected) 04/21/17 10:43 Ur Phencyclidine Scrn Not Detected (NotDetected) 04/21/17 10:43 Ur Amphetamines Screen Not Detected (NotDetected) 04/21/17 10:43 U Methamphetamines Scrn Not Detected (NotDetected) 04/21/17 10:43 U Benzodiazepines Scrn Not Detected (NotDetected) 04/21/17 10:43 Urine Cocaine Screen Not Detected (NotDetected) 04/21/17 10:43 U Marijuana (THC) Screen Not Detected (NotDetected) 04/21/17 10:43 04/22/17 16:21 IDENTIFYING DATA: 51-year-old male patient HPI: Patient admitted to the inpatient psychiatric unit [facility] on a voluntary basis with recent depression and concerns regarding thoughts of suicide. Patient states that he had started Chantix at the end of February which she thinks was a factor in him becoming more depressed. Says his smoking has cut down. He says he is also been drinking a lot recently. He says he came to the hospital Sunday because he had a gash on his head that sounds like he had fallen. Says his depression was getting worse. He says the reason he came back to the hospital because he was feeling dizzy and his head was hurting he also felt more depressed and had thoughts of suicide but no plan. Says is eating his been decreased and interest in things has been decreased. He does desire to get his sobriety back, but does not have interest in inpatient rehab treatment at this time. He states that he is interested in outpatient treatment program. PAST PSYCHIATRIC HISTORY: Most recently has been on Cymbalta 30 mg daily which is only been taking sporadically. When he takes the Cymbalta does help him. He has also been on Seroquel which has been kind of sporadic with coming does state that the Seroquel makes him tired. He has most recent milligram 300 mg at bedtime. Currently dose to 200 more grams at bedtime he states that he feels very tired but it is tolerable. He also has a history of being on Neurontin which helped some mood stability but he has not been consistent with and also was abusing it recently. He has a history of bipolar 1 disorder. He has a history of long episodes of darci which he'll do excessive spending, sexually impulsive and use drugs. He said more than 5 inpatient psychiatric admissions. He has had 3 previous serious suicide attempts in the span of a year which were overdoses. He also has been on Lamictal recently which he has not been taking consistently. Says he won't take Depakote because of weight gain he was on lithium in the past which he has low blood levels on even at maximum doses. 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 Either IBS or Crohn's disease. ALLERGIES: No known ALLERGIES MEDICATIONS: Tylenol when necessary, Maalox when necessary, Ventolin when necessary, Symbicort, Bentyl, Cymbalta, Lamictal, Zestril, Ativan when necessary , milk of magnesia, Protonix, Seroquel CHEMICAL DEPENDENCY HISTORY: Patient states that he is an alcoholic and also has heroin addiction. He says he quit both of them in the beginning of June , has not used heroin since. He started drinking alcohol January 21 has been using on and off doesn't to last week was more consistently use. He has no interest in inpatient chemical dependency treatment at this point time but is interested in outpatient treatment FAMILY PSYCHIATRIC HISTORY: Father with bipolar disorder FAMILY CHEMICAL DEPENDENCY HISTORY: None known at this time SOCIAL HISTORY: Currently lives with 2 roommates in a home. He does not have any children. He is once and . He has been on disability since June 2000 for bipolar disorder. MENTAL STATUS EXAM: He is alert and cooperative with the interview. His speech is fluent, not rapid or pressured. Thought processes are organized. His mood he describes his "mama Estefani, dark." He denies any active thoughts of harm to self or others. He does state he feels safe here on the unit. There is no evidence of psychosis or agitation. Cognitively appears to be grossly intact. I do not note any significant memory disturbance or disorientation. His insight is adequate, judgment shows evidence of recent impairment. STRENGTHS/WEAKNESSES: Strengths-seeking treatment; weaknesses-coping skills INTELLECTUAL FUNCTIONING: Average IMPRESSIONS: Bipolar disorder, depressed; alcohol use disorder; history of opioid use disorder PLAN: Patient is admitted to the inpatient psychiatric unit [facility] on a voluntary basis. SP 15 minute precautions are ordered and she'll be monitored regarding suicidal ideations. Baseline laboratory workup will be done the patient and medical consultation will be ordered. Circles been reinitiated at 200 motives at bedtime for mood stability as well as Lamictal 25 mg daily. Cymbalta is reinitiated at 30 monitor daily for depression. At this time we will continue to hold on Neurontin with recent concerns of him overusing it. We will monitor his mood, look into any support systems. Dr. Carballo will initiate care this patient starting tomorrow. Estimated length of stay is 5-7 days. Prognosis is guarded.
[2017-04-22 16:46] LABS: Appearance,Urine Cloudy (Clear); Bacteria,Urine Rare /hpf; Bilirubin,Urine Negative (Negative); Glucose,Urine (UA) Negative (Negative); Ketones,Urine Negative (Negative); Leukocyte Esterase,Urine Trace (Negative); Mucus,Urine Moderate /hpf; Nitrite,Urine Negative (Negative); PH, Urine 5.5 (5.0-8.0); Particle Count 7362; Protein,Urine 1+ (Negative); RBC,Urine >182 /hpf (0-5); Specific Gravity,Urine 1.018 (1.001-1.035); Squamous Epithelial Cell,Urine 4 /hpf (0-4); UA Billing (MACRO vs. MICRO) MICRO; WBC,Urine 13 /hpf (0-5)
[2017-04-22] MEDS: DICYCLOMINE 20 MG TAB PO SCH ×2 (19:31→21:28)
[2017-04-22] MEDS: QUEtiapine 200 MG TAB PO SCH (21:28)
[2017-04-23] MEDS: LISINOPRIL 20 MG TAB PO SCH (08:50)
[2017-04-23] MEDS: lamoTRIgine 25 MG TAB PO SCH (08:50)
[2017-04-23] MEDS: PANTOPRAZOLE 40 MG TABLET PO SCH (08:50)
[2017-04-23] MEDS: DULoxetine HCL 30 MG CAPSULE.DR PO SCH (08:50)
[2017-04-23] MEDS: DICYCLOMINE 20 MG TAB PO SCH ×4 (08:50→22:11)
[2017-04-23] MEDS: ACETAMINOPHEN TAB 325 MG TAB PO PRN (08:54)
[2017-04-23] MEDS: LORazepam 1 MG TAB PO PRN ×2 (08:54→17:05)
[2017-04-23] MEDS: SYMBICORT 160-4.5 MCG INHALER INHALATION SCH ×2 (09:09→19:02)
[2017-04-23] MEDS: ALBUTEROL INHALER 60 PUFF/8 GM INHALER INHALATION PRN ×3 (09:10→19:02)
--- NOTE | 2017-04-23 10:54 | P.PN ---
Progress Note - Text Interval history: The patient is found in his room he follows me to an interview room. He was admitted to the mental health unit by Dr. Masterson and that psychiatric evaluation was reviewed. It appears he presented with acute symptoms of depression with suicidal ideation. This is in the context of overusing alcohol. The patient was continued on Cymbalta and Seroquel Lamictal was started 25 mg daily. He reports his mood is "melancholy". Staff report that he has been trying to attend groups. He reports he was able to sleep last night due to the Seroquel. Mental status exam: The patient is a male he is dressed in his own clothing he ambulates slowly in the hallway but demonstrates no ataxia. Eye contact is appropriate speech is fluent and spontaneous nonpressured. He has a disheveled appearance hygiene is fair. He has a sutured wound in the left supraorbital region. Affect is congruent to reported mood. He feels safe in the hospital is endorsing no acute suicidal ideation he is reporting no homicidal ideation. He is endorsing no auditory or visual hallucinations or specific delusions. He demonstrates no verbal or physical aggressiveness. With outstretched hands there is no evidence of tremor. Plan: The patient will continue on his current medications. We will monitor him for safety and encourage his participation in the milieu. Vital signs reviewed. We will consider titrating the Cymbalta and Lamictal further if appropriate.
[2017-04-23] MEDS: QUEtiapine 200 MG TAB PO SCH (22:11)
[2017-04-24] MEDS: LISINOPRIL 20 MG TAB PO SCH (09:09)
[2017-04-24] MEDS: DULoxetine HCL 30 MG CAPSULE.DR PO SCH (09:09)
[2017-04-24] MEDS: PANTOPRAZOLE 40 MG TABLET PO SCH (09:10)
[2017-04-24] MEDS: lamoTRIgine 25 MG TAB PO SCH ×2 (09:10→22:14)
[2017-04-24] MEDS: DICYCLOMINE 20 MG TAB PO SCH ×4 (09:10→22:14)
[2017-04-24] MEDS: LORazepam 1 MG TAB PO PRN ×2 (09:11→18:41)
[2017-04-24] MEDS: ALBUTEROL INHALER 60 PUFF/8 GM INHALER INHALATION PRN ×3 (09:14→19:26)
[2017-04-24] MEDS: SYMBICORT 160-4.5 MCG INHALER INHALATION SCH ×2 (09:14→19:26)
--- NOTE | 2017-04-24 10:59 | P.PN ---
Progress Note - Text Interval history: The patient is found in group he follows me to an interview room. He states that he feels safe here and that his depression is starting to lift. He was able to sleep last night. Again we reviewed his presentation to the hospital. He clearly describes a history of bipolar disorder with manic episodes in the past. He describes some of his manic episodes becoming severe and causing psychosis. He is endorsing no racing thoughts. He is expressing no irritability area we reviewed his medications the Lamictal, Cymbalta, Seroquel. He feels the Seroquel is too sedating in the morning if the doses above 200. We discussed titrating the Lamictal further as the target dose would be 200 mg. Mental status exam: The patient is alert he is dressed in his own clothing hygiene grooming adequate. Eye contact is good speech is fluent spontaneous nonpressured. Affect is brighter and he is more engaged in the conversation today. Thought process is linear compared to yesterday. He is reporting no homicidal ideation intent or plan. He reports feeling safe in the hospital. He is endorsing no acute suicidal ideation intent or plan. He endorses no auditory or visual hallucinations or specific delusions. He demonstrates no verbal or physical aggressiveness. He is oriented to person place and date. Plan: Bipolar 1 disorder depressed, opioid and alcohol use disorders, the patient will continue on his current medications we plan to titrate the Lamictal to 25 mg twice daily starting tomorrow. He will continue on the Cymbalta and Seroquel as written. He is encouraged to continue participating in groups. Vital signs reviewed. We will continue to monitor him for clinical improvement. He may be appropriate for discharge in the next 2-3 days.
[2017-04-24] MEDS: QUEtiapine 200 MG TAB PO SCH (22:14)
--- NOTE | 2017-04-25 09:15 | P.PN ---
Progress Note - Text Interval history: The patient is found in group he follows me to an interview room. He reports he is feeling better sleep is improving. He has been tolerating his medications. He is reporting no side effects from his psychotropic medications. He voices some concerns regarding one of his roommates back home and is considering changing locations because of that person. He has been participating in groups. Mental status exam: The patient is alert he is dressed in his own clothing hygiene grooming adequate. He has a noticeable exaggerated thoracic kyphosis. Eye contact is appropriate he's pleasant and cooperative. He reports his mood is improving he is feeling less depressed. He feels hopeless thinking is resolving. He endorses no acute suicidal or homicidal ideation. He endorses no auditory or visual hallucinations, no specific delusions, there is no observed evidence of psychosis. Insight and judgment improving. He demonstrates no verbal or physical aggressiveness. He remains oriented to person place and date. He does not appear hypomanic or manic. Plan: Bipolar depression, opiate use disorder, alcohol use disorder, the patient will continue on his current medications. We will monitor him for safety and encourage his continued participation in the milieu. Vital signs reviewed. They're within normal limits. We will anticipate discharging him tomorrow if he demonstrates continued stability and improvement.
[2017-04-25] MEDS: PANTOPRAZOLE 40 MG TABLET PO SCH (09:17)
[2017-04-25] MEDS: lamoTRIgine 25 MG TAB PO SCH ×2 (09:17→22:06)
[2017-04-25] MEDS: DICYCLOMINE 20 MG TAB PO SCH ×4 (09:17→22:06)
[2017-04-25] MEDS: DULoxetine HCL 30 MG CAPSULE.DR PO SCH (09:17)
[2017-04-25] MEDS: LISINOPRIL 20 MG TAB PO SCH (09:17)
[2017-04-25] MEDS: SYMBICORT 160-4.5 MCG INHALER INHALATION SCH ×2 (09:19→20:49)
[2017-04-25] MEDS: ALBUTEROL INHALER 60 PUFF/8 GM INHALER INHALATION PRN ×3 (09:20→20:48)
[2017-04-25] MEDS: QUEtiapine 200 MG TAB PO SCH (22:06)
[2017-04-26 06:44] VITALS: BP 111/78; PULSE 61; RESP 12; TEMP 97.6
[2017-04-26] MEDS: ALBUTEROL INHALER 60 PUFF/8 GM INHALER INHALATION PRN ×2 (08:32→12:25)
[2017-04-26] MEDS: SYMBICORT 160-4.5 MCG INHALER INHALATION SCH (08:32)
[2017-04-26] MEDS: PANTOPRAZOLE 40 MG TABLET PO SCH (09:15)
[2017-04-26] MEDS: lamoTRIgine 25 MG TAB PO SCH (09:15)
[2017-04-26] MEDS: LISINOPRIL 20 MG TAB PO SCH (09:15)
[2017-04-26] MEDS: DICYCLOMINE 20 MG TAB PO SCH ×2 (09:15→12:04)
[2017-04-26] MEDS: DULoxetine HCL 30 MG CAPSULE.DR PO SCH (09:15)
[2017-04-26] MEDS: ACETAMINOPHEN TAB 325 MG TAB PO PRN (09:16)
--- NOTE | 2017-04-26 09:24 | P.DS ---
Providers Date of admission: 04/21/17 13:51 Expected date of discharge: 04/26/17 Attending physician: Dragan Navarro Consults: 04/21/17 15:21 Consult Physician Routine Consulting Provider: Sarahy Yap Consult Reason/Comments: history and physical Do you want consulting provider notified?: Yes Primary care physician: Meka Paniagua - Discharge Diagnosis(es) (1) Bipolar 1 disorder, depressed Current Visit: Yes Status: Acute Priority: High (2) Alcohol use disorder, severe, dependence Current Visit: Yes Status: Acute Priority: High (3) Opioid use disorder, severe, dependence Current Visit: Yes Status: Acute Priority: High Hospital Course: Brief summary of admission note: This patient is a 51-year-old male who was admitted to the mental health unit on a voluntary basis with report of depressed mood and suicidal ideation. He had reported he been excessively drinking alcohol he had been off of his psychotropic medications and not sleeping for several days in a row. He had not been eating. He felt hopeless. For full details please refer to Dr. Masterson's psychiatric evaluation dated 04/22/2017. Summary of hospital course: The patient was admitted to the mental health unit he signed in voluntarily. He was initially seen by Dr. Masterson. He was continued on Cymbalta 30 mg daily started on Lamictal 25 mg daily and continued on Seroquel 200 mg at bedtime. During the course of the stay we titrated the Lamictal further. The patient did attend groups. He reported a progressive improvement of symptoms while here. He demonstrated no agitated behavior. He was monitored for alcohol withdrawal symptoms. He attended groups. We discussed having him participate in inpatient chemical dependency treatment upon discharge but he was not agreeable. He plans on attending AA and NA meetings upon discharge. He is agreeable to following up at [facility] for outpatient mental health treatment. Mental status exam: The patient is male appearing his stated age he has several visible tattoos he has earrings. He is noted to have an exaggerated thoracic kyphosis in terms of his posture. Eye contact is appropriate. He is pleasant cooperative easily directed in the session. He reports his mood is much improved affect is congruent and appears euthymic. He denies having any hopelessness thinking or any suicidal or homicidal ideation intent or plan. He is reporting no auditory or visual hallucinations or specific delusions. There is no observed evidence of psychosis. He does not appear hypomanic or manic at this time there is no evidence of pressured speech he endorses no racing thoughts. He demonstrates no verbal or physical aggressiveness. He remains oriented to person place and date. Impressions 1. I Polar 1 disorder most recent depressed, alcohol use disorder, opioid use disorder Plan: The patient will be discharged from the mental health unit today to return back to his own home residing with a roommate. He plans to follow at [facility] work will confirm he has an appointment. He will continue on Seroquel 200 mg at bedtime, Lamictal 25 mg twice daily, Cymbalta 30 mg daily. His Lamictal and possibly Seroquel will require further titration in the outpatient setting. He is instructed to abstain from any use of alcohol or marijuana or illicit drugs. We discussed that his safety risk is elevated should he engage in use of those substances. He does not wish to participate in inpatient chemical dependency treatment is willing to attend NA and AA meetings. At this time there is no imminent safety risk he is able to attend to his own activities of daily living and he is appropriate for transition to outpatient care. He is instructed to return to the hospital with any acute safety concerns. Patient Condition at Discharge: Stable Plan - Discharge Summary New Discharge Prescriptions: New lamoTRIgine [LaMICtal] 25 mg PO BID #60 tab QUEtiapine [SEROquel] 200 mg PO HS #30 tab Continue Lisinopril [Zestril] 20 mg PO DAILY Omeprazole 20 mg PO BID Dicyclomine [Bentyl] 20 mg PO QID Budesonide/Formoterol Fumarate [Symbicort 160-4.5 Mcg Inhaler] 2 puff INHALATION RT-BID Albuterol Inhaler [Ventolin Hfa Inhaler] 1 - 2 puff INHALATION RT-Q6H PRN PRN Reason: Shortness Of Breath DULoxetine HCL [Cymbalta] 30 mg PO DAILY #30 Discontinued Gabapentin [Neurontin] 400 mg PO TID lamoTRIgine [LaMICtal] 200 mg PO DAILY QUEtiapine FUMARATE [SEROquel] 300 mg PO HS busPIRone HCL 15 mg PO TID Discharge Medication List Lisinopril [Zestril] 20 mg PO DAILY 09/11/16 [History] Omeprazole 20 mg PO BID 09/11/16 [History] Budesonide/Formoterol Fumarate [Symbicort 160-4.5 Mcg Inhaler] 2 puff INHALATION RT-BID 04/18/17 [History] Dicyclomine [Bentyl] 20 mg PO QID 04/18/17 [History] Albuterol Inhaler [Ventolin Hfa Inhaler] 1 - 2 puff INHALATION RT-Q6H PRN [History] DULoxetine HCL [Cymbalta] 30 mg PO DAILY #30 04/26/17 [Rx] QUEtiapine [SEROquel] 200 mg PO HS #30 tab 04/26/17 [Rx] lamoTRIgine [LaMICtal] 25 mg PO BID #60 tab 04/26/17 [Rx] Follow up Appointment(s)/Referral(s): Meka Paniagua DO [Primary Care Provider] - 1-2 days
== END 2017-04-26 14:26 | disposition home or self-care (01) | DRG 885 ==
LOC: EC 07:02 → 3MHU 13:51
PROVIDERS: ADMIT Psychiatry & Neurology Psychiatry; ATTEND Psychiatry & Neurology Psychiatry
DX: F31.9 Bipolar disorder, unspecified (principal); F11.20 Opioid dependence, uncomplicated; R45.851 Suicidal ideations; I10 Essential (primary) hypertension; F43.10 Post-traumatic stress disorder, unspecified; F10.229 Alcohol dependence with intoxication, unspecified; F17.200 Nicotine dependence, unspecified, uncomplicated; K21.9 Gastro-esophageal reflux disease without esophagitis; J44.9 Chronic obstructive pulmonary disease, unspecified; M40.204 Unspecified kyphosis, thoracic region; F29 Unspecified psychosis not due to a substance or known physiological condition; R51 Headache; F07.81 Postconcussional syndrome; Z98.84 Bariatric surgery status; Z82.49 Family history of ischemic heart disease and other diseases of the circulatory system; Z81.8 Family history of other mental and behavioral disorders; Z79.899 Other long term (current) drug therapy; Z79.51 Long term (current) use of inhaled steroids
CPT/HCPCS: 36415; 70450; 80053; 80061; 80306; 81001; 82075; 83036; 84443; 85025; 93005; 94640; 96361; 96374; 99285

== ENCOUNTER 2017-06-19 07:53 | Emergency (ER) | payer MEDICARE ==
[2017-06-19 08:00] VITALS: RESP 18
--- NOTE | 2017-06-19 08:12 | ED ---
Psych HPI - General Chief Complaint: Psychiatric Symptoms Stated Complaint: Mental Health Time Seen by Provider: 06/19/17 08:07 Source: patient, EMS, RN notes reviewed Mode of arrival: EMS Limitations: no limitations - History of Present Illness Initial Comments: This is a 51-year-old male presents emergency department chief complaint depression, suicidal thoughts. Patient states that he's been having increasing depression and states that he does really wants to be diabetic states is not really sure if he actually wants to kill himself. Patient states that he does drink alcohol on a regular basis has a history of drug abuse. Patient denies any homicidal ideations. Denies taking current psychiatric medications he states he is supposed to see a psychiatrist antiemetic medications but he is not. Patient denies any physical complaints. - Related Data Home Medications Medication Instructions Recorded Confirmed Lisinopril [Zestril] 20 mg PO BID 09/11/16 06/19/17 Omeprazole 20 mg PO BID 09/11/16 06/19/17 Budesonide/Formoterol Fumarate 1 puff INHALATION RT-BID 04/18/17 06/19/17 [Symbicort 160-4.5 Mcg Inhaler] Dicyclomine [Bentyl] 20 mg PO QID 04/18/17 06/19/17 Albuterol Inhaler [Ventolin Hfa 1 - 2 puff INHALATION RT-Q6H PRN 04/21/17 Inhaler] Gabapentin [Neurontin] 400 mg PO TID 06/19/17 06/19/17 Mometasone/Formoterol [Dulera 100 2 puff INHALATION RT-BID 06/19/17 06/19/17 Mcg/5 Mcg Inhaler] QUEtiapine FUMARATE [SEROquel] 300 mg PO HS 06/19/17 06/19/17 busPIRone HCL 15 mg PO TID 06/19/17 06/19/17 lamoTRIgine [LaMICtal] 200 mg PO DAILY 06/19/17 06/19/17 Previous Rx's Medication Instructions Recorded DULoxetine HCL [Cymbalta] 30 mg PO DAILY #30 04/26/17 Allergies Allergy/AdvReac Type Severity Reaction Status Date / Time No Known Allergies Allergy Verified 06/19/17 08:00 Review of Systems ROS Statement: Those systems with pertinent positive or pertinent negative responses have been documented in the HPI. ROS Other: All systems not noted in ROS Statement are negative. Past Medical History Past Medical History: GERD/Reflux, Hypertension, Musculoskeletal Disorder Additional Past Medical History / Comment(s): GI Bleed History of Any Multi-Drug Resistant Organisms: None Reported Past Surgical History: Bariatric Surgery, Orthopedic Surgery Additional Past Surgical History / Comment(s): Left inner Forearm-metal plate Past Anesthesia/Blood Transfusion Reactions: No Reported Reaction Past Psychological History: Anxiety, Bipolar, Depression, PTSD Smoking Status: Current every day smoker Past Alcohol Use History: Daily, Heavy Past Drug Use History: Marijuana, Methamphetamine - Past Family History Mother Family Medical History: Hypertension Additional Family Medical History / Comment(s): Lupus General Exam Limitations: no limitations General appearance: alert, in no apparent distress Head exam: Present: atraumatic, normocephalic, normal inspection Eye exam: Present: normal appearance, PERRL, EOMI. Absent: scleral icterus, conjunctival injection, periorbital swelling ENT exam: Present: normal exam, normal oropharynx, mucous membranes moist, TM's normal bilaterally, normal external ear exam Neck exam: Present: normal inspection. Absent: tenderness, meningismus, lymphadenopathy Respiratory exam: Present: normal lung sounds bilaterally. Absent: respiratory distress, wheezes, rales, rhonchi, stridor Cardiovascular Exam: Present: regular rate, normal rhythm, normal heart sounds. Absent: systolic murmur, diastolic murmur, rubs, gallop, clicks GI/Abdominal exam: Present: soft, normal bowel sounds. Absent: distended, tenderness, guarding, rebound, rigid Neurological exam: Present: alert, oriented X3 Psychiatric exam: Present: depressed, flat affect Skin exam: Present: warm, dry, intact, normal color. Absent: rash Course Vital Signs 06/19/17 06/19/17 07:56 10:07 Temperature 98.8 F Pulse Rate 76 88 Respiratory 18 18 Rate Blood Pressure 140/83 147/97 O2 Sat by Pulse 97 98 Oximetry Medical Decision Making - Medical Decision Making 51-year-old male presented for depression, alcohol chest contusion. Patient is sober was evaluated by EPS case discussed with psychiatrist patient will be discharged at this time - Lab Data Lab Results 06/19/17 Range/Units 08:22 Urine Opiates Screen Not Detected (NotDetected) Ur Oxycodone Screen Not Detected (NotDetected) Urine Methadone Screen Not Detected (NotDetected) Ur Propoxyphene Screen Not Detected (NotDetected) Ur Barbiturates Screen Not Detected (NotDetected) U Tricyclic Antidepress Not Detected (NotDetected) Ur Phencyclidine Scrn Not Detected (NotDetected) Ur Amphetamines Screen Not Detected (NotDetected) U Methamphetamines Scrn Not Detected (NotDetected) U Benzodiazepines Scrn Not Detected (NotDetected) Urine Cocaine Screen Not Detected (NotDetected) U Marijuana (THC) Screen Not Detected (NotDetected) Disposition Clinical Impression: Depression, Alcohol intoxication Disposition: HOME SELF-CARE Condition: Stable Instructions: Depression (ED) Additional Instructions: Please return to the Emergency Department if symptoms worsen or any other concerns. Referrals: Meka Paniagua DO [Primary Care Provider] - 1-2 days Time of Disposition: 14:58
[2017-06-19 15:09] VITALS: BP 138/87; PULSE 78; TEMP 98.4
== END 2017-06-19 15:09 | disposition home or self-care (01) ==
LOC: EC 07:53
DX: F32.9 Major depressive disorder, single episode, unspecified (principal); F10.120 Alcohol abuse with intoxication, uncomplicated; K21.9 Gastro-esophageal reflux disease without esophagitis; I10 Essential (primary) hypertension; F41.9 Anxiety disorder, unspecified; F17.200 Nicotine dependence, unspecified, uncomplicated; Z79.51 Long term (current) use of inhaled steroids; Z79.899 Other long term (current) drug therapy
CPT/HCPCS: 80306; 82075; 99284

== ENCOUNTER 2017-09-02 22:48 | Emergency (ER) | payer MEDICARE ==
[2017-09-02] MEDS ORDERED: SODIUM CHLORIDE 0.9% 1,000 ML IV ONE (22:58)
[2017-09-02] MEDS ORDERED: LORazepam 2 MG/ML INJ IV STA (22:58)
[2017-09-02 22:59] VITALS: TEMP 98.3
[2017-09-02] MEDS ORDERED: 1: MVI, ADULT NO.4 WITH VIT K 10 ML, THIAMINE 100 MG, FOLIC ACID 1 MG in SODIUM CHLORIDE IV SCH ×4 (23:00)
[2017-09-02] MEDS ORDERED: SODIUM CHLORIDE 0.9% 1,000 ML with MVI, ADULT NO.4 WITH VIT K 10 ML, THIAMINE 100 MG, F... IV ONE ×4 (23:04)
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
[2017-09-02] MEDS ORDERED: LABETALOL 5 MG/ML VIAL MDV IVP STA (23:08)
[2017-09-02 23:20] LABS: Basophils % (A) 0 %; Eosinophils % (A) 0 %; HCT 44.9 % (39.0-53.0); Lymphocytes # (A) 1.4 k/uL (1.0-4.8); Lymphocytes % (A) 19 %; MCH 30.3 pg (25.0-35.0); MCHC 31.2 g/dL (31.0-37.0); MCV 97.1 fL (80.0-100.0); Mean Platelet Volume 6.7; Monocytes # (A) 0.3 k/uL (0-1.0); Monocytes % (A) 4 %; Neutrophils # (A) 5.6 k/uL (1.3-7.7); Neutrophils % (A) 76 %; Platelet Count 291 k/uL (150-450); RBC 4.63 m/uL (4.30-5.90); RDW 13.9 % (11.5-15.5); WBC 7.4 k/uL (3.8-10.6)
[2017-09-02 23:27] LABS: ALT 18 U/L (21-72); AST 60 U/L (17-59); Albumin 4.1 g/dL (3.5-5.0); Alkaline Phosphatase 92 U/L (38-126); Amylase 42 U/L (30-110); Anion Gap 25 mmol/L; Blood Urea Nitrogen 11 mg/dL (9-20); Calcium 9.1 mg/dL (8.4-10.2); Carbon Dioxide 17 mmol/L (22-30); Chloride 90 mmol/L (98-107); Glucose 119 mg/dL (74-99); Lipase 100 U/L (23-300); Magnesium 1.5 mg/dL (1.6-2.3); Potassium 4.3 mmol/L (3.5-5.1); Sodium 132 mmol/L (137-145); Total Bilirubin 0.3 mg/dL (0.2-1.3); Total Protein 6.9 g/dL (6.3-8.2)
[2017-09-02 23:28] LABS: Partial Thromboplastin Time 26.5 sec (22.0-30.0); Prothrombin Time 9.7 sec (9.0-12.0)
[2017-09-02 23:37] VITALS: RESP 18
[2017-09-03 00:59] VITALS: BP 168/99; PULSE 98
== END 2017-09-03 01:52 | disposition home or self-care (01) ==
LOC: EC 22:48
DX: F10.239 Alcohol dependence with withdrawal, unspecified (principal); R21 Rash and other nonspecific skin eruption; I10 Essential (primary) hypertension; K21.9 Gastro-esophageal reflux disease without esophagitis; F17.200 Nicotine dependence, unspecified, uncomplicated; Z53.8 Procedure and treatment not carried out for other reasons; Z79.51 Long term (current) use of inhaled steroids; Z79.899 Other long term (current) drug therapy
CPT/HCPCS: 36415; 80053; 82150; 83690; 83735; 85025; 85610; 85730; 99285; 96365; 96366; 96375; J2060; J3411

== ENCOUNTER 2017-09-03 18:25 | Emergency (ER) | payer MEDICARE ==
[2017-09-03] MEDS ORDERED: SODIUM CHLORIDE 0.9% 1,000 ML IV STA (18:39)
[2017-09-03] MEDS ORDERED: LORazepam 2 MG/ML INJ IV STA (18:39)
[2017-09-03] MEDS ORDERED: THIAMINE 100 MG/ML 2 ML VIAL IM STA (18:39)
[2017-09-03] MEDS ORDERED: FOLIC ACID 1 MG TAB PO STA (18:41)
--- NOTE | 2017-09-03 18:51 | ED ---
General Adult HPI - General Chief complaint: Abdominal Pain Stated complaint: Abd Pain Time Seen by Provider: 09/03/17 18:32 Source: patient, EMS, RN notes reviewed Mode of arrival: EMS Limitations: no limitations - History of Present Illness Initial comments: 51 yo male presents to the ER with cc of alcohol withdrawal. He states that he is an alcoholic and he does not drink since last night. Patient states that he is going through withdrawal symptoms. Patient states that he is feeling somewhat shaky. Patient admits to being an alcoholic and states he's gone to rehab about 13 times. Patient states she's having some abdominal cramping and nausea with this as well. Patient denies any fever chills. Patient denies any recent fever, chills, shortness of breath, chest pain, back pain, numbness or tingling, dysuria or hematuria, constipation or diarrhea, headaches or visual changes, or any other current symptoms. - Related Data Home Medications Medication Instructions Recorded Confirmed Lisinopril [Zestril] 20 mg PO BID 09/11/16 09/03/17 Omeprazole 20 mg PO BID 09/11/16 09/03/17 Budesonide/Formoterol Fumarate 1 puff INHALATION RT-BID 04/18/17 09/03/17 [Symbicort 160-4.5 Mcg Inhaler] Dicyclomine [Bentyl] 20 mg PO QID 04/18/17 09/03/17 Albuterol Inhaler [Ventolin Hfa 1 - 2 puff INHALATION RT-Q6H PRN 04/21/17 Inhaler] Mometasone/Formoterol [Dulera 100 2 puff INHALATION RT-BID 06/19/17 09/03/17 Mcg/5 Mcg Inhaler] Multivitamins, Thera [Multivitamin 1 tab PO DAILY@1200 09/03/17 09/03/17 (formulary)] Previous Rx's Medication Instructions Recorded DULoxetine HCL [Cymbalta] 30 mg PO DAILY #30 capsule. 07/10/17 OLANZapine [ZyPREXA] 10 mg PO HS #30 tab 07/10/17 Thiamine [Vitamin B-1] 100 mg PO BID@1200,1700 #60 tab 07/10/17 busPIRone HCL 15 mg PO TID #90 tablet 07/10/17 lamoTRIgine [LaMICtal] 200 mg PO DAILY #30 tablet 07/10/17 chlordiazePOXIDE HCl [Librium] 25 mg PO QID #10 capsule 09/03/17 Allergies Allergy/AdvReac Type Severity Reaction Status Date / Time No Known Allergies Allergy Verified 09/03/17 18:48 Review of Systems ROS Statement: Those systems with pertinent positive or pertinent negative responses have been documented in the HPI. ROS Other: All systems not noted in ROS Statement are negative. Past Medical History Past Medical History: GERD/Reflux, Hypertension, Musculoskeletal Disorder, Pneumonia Additional Past Medical History / Comment(s): GI Bleed History of Any Multi-Drug Resistant Organisms: None Reported Past Surgical History: Bariatric Surgery, Orthopedic Surgery Additional Past Surgical History / Comment(s): Left inner Forearm-metal plate Past Anesthesia/Blood Transfusion Reactions: No Reported Reaction Past Psychological History: Anxiety, Bipolar, Depression, PTSD Smoking Status: Current every day smoker Past Alcohol Use History: Daily, Heavy Past Drug Use History: Cocaine, Heroin, Marijuana, Methamphetamine - Past Family History Mother Family Medical History: Hypertension Additional Family Medical History / Comment(s): Lupus General Exam - General Exam Comments Initial Comments: General: The patient is awake and alert, in no distress, and does not appear acutely ill. Eye: Pupils are equal, round. Ears, nose, mouth and throat: There are moist mucous membranes. Neck: The neck is supple, there is no tenderness. Cardiovascular: There is a regular rate and rhythm. No murmur, rub or gallop is appreciated. Respiratory: Lungs are clear to auscultation, respirations are non-labored, breath sounds are equal. No wheezes, stridor, rales, or rhonchi. Gastrointestinal: Soft, non-distended, non-tender abdomen without masses or organomegaly noted. There is no rebound or guarding present. No CVA tenderness. Bowel sounds are unremarkable. Back: There is no tenderness to palpation in the midline. There is no obvious deformity. No rashes noted. Musculoskeletal: Normal ROM, no tenderness, There is no pedal edema. There is no calf tenderness or swelling. Sensation intact. Pulses equal bilaterally 2+. Neurological: CN II-XII intact, There are no obvious motor or sensory deficits. Coordination appears grossly intact. Speech is normal. Skin: Skin is warm and dry and no rashes or lesions are noted. Psychiatric: Cooperative, appropriate mood & affect, normal judgment. Limitations: no limitations Course Vital Signs 09/03/17 09/03/17 18:29 19:19 Temperature 98.1 F Pulse Rate 104 H 95 Respiratory 16 16 Rate Blood Pressure 143/98 114/76 O2 Sat by Pulse 98 98 Oximetry Medical Decision Making - Medical Decision Making 51-year-old male presents to the emergency department with a chief complaint of alcohol withdrawal. At this time patient was given Ativan. Lab work was reviewed. We did give the patient a liter of fluids as well as replace his magnesium. At this time we did discuss that we will start the patient will be referred for home and we did make sure that he had his prescription prior to leaving the emergency department. We did discuss rehab we discussed return parameters discussed follow-up and all questions. Patient stated he understood and he is agreement with this plan. All questions have been answered. They will be discharged. - Lab Data Result diagrams: 09/03/17 18:59 09/03/17 18:59 Lab Results 09/03/17 09/03/17 Range/Units 18:59 18:59 WBC 5.6 (3.8-10.6) k/uL RBC 4.63 (4.30-5.90) m/uL Hgb 14.3 (13.0-17.5) gm/dL Hct 43.0 (39.0-53.0) % MCV 93.0 (80.0-100.0) fL MCH 31.0 (25.0-35.0) pg MCHC 33.3 (31.0-37.0) g/dL RDW 13.8 (11.5-15.5) % Plt Count 237 (150-450) k/uL Neutrophils % 70 % Lymphocytes % 21 % Monocytes % 7 % Eosinophils % 0 % Basophils % 0 % Neutrophils # 3.9 (1.3-7.7) k/uL Lymphocytes # 1.2 (1.0-4.8) k/uL Monocytes # 0.4 (0-1.0) k/uL Eosinophils # 0.0 (0-0.7) k/uL Basophils # 0.0 (0-0.2) k/uL Sodium 127 L (137-145) mmol/L Potassium 4.0 (3.5-5.1) mmol/L Chloride 89 L (98-107) mmol/L Carbon Dioxide 23 (22-30) mmol/L Anion Gap 15 mmol/L BUN 7 L (9-20) mg/dL Creatinine 0.50 L (0.66-1.25) mg/dL Est GFR (MDRD) Af Amer >60 (>60 ml/min/1.73 sqM) Est GFR (MDRD) Non-Af >60 (>60 ml/min/1.73 sqM) Glucose 113 H (74-99) mg/dL Calcium 8.9 (8.4-10.2) mg/dL Phosphorus 2.7 (2.5-4.5) mg/dL Magnesium 1.3 L (1.6-2.3) mg/dL Total Bilirubin 1.0 (0.2-1.3) mg/dL AST 59 (17-59) U/L ALT 26 (21-72) U/L Alkaline Phosphatase 97 (38-126) U/L Total Protein 6.7 (6.3-8.2) g/dL Albumin 3.8 (3.5-5.0) g/dL Amylase 37 (30-110) U/L Lipase 76 (23-300) U/L Disposition Clinical Impression: Alcohol withdrawal, Hypomagnesemia, Hyponatremia Disposition: HOME SELF-CARE Condition: Stable Instructions: Abuse of Alcohol (ED) Additional Instructions: Please use medication as discussed. Please follow up with family doctor if symptoms have not improved over the next two days. Please return to the emergency room if your symptoms increase or worsen or for any other concerns. Prescriptions: chlordiazePOXIDE HCl [Librium] 25 mg PO QID #10 capsule Referrals: Meka Paniagua DO [Primary Care Provider] - 1-2 days Time of Disposition: 19:36
[2017-09-03 19:11] LABS: Basophils % (A) 0 %; Eosinophils % (A) 0 %; HGB 14.3 gm/dL (13.0-17.5); Lymphocytes # (A) 1.2 k/uL (1.0-4.8); Lymphocytes % (A) 21 %; MCHC 33.3 g/dL (31.0-37.0); Mean Platelet Volume 6.8; Monocytes # (A) 0.4 k/uL (0-1.0); Monocytes % (A) 7 %; Neutrophils # (A) 3.9 k/uL (1.3-7.7); Neutrophils % (A) 70 %; Platelet Count 237 k/uL (150-450); RBC 4.63 m/uL (4.30-5.90); RDW 13.8 % (11.5-15.5); WBC 5.6 k/uL (3.8-10.6)
[2017-09-03 19:21] LABS: ALT 26 U/L (21-72); AST 59 U/L (17-59); Albumin 3.8 g/dL (3.5-5.0); Alkaline Phosphatase 97 U/L (38-126); Amylase 37 U/L (30-110); Anion Gap 15 mmol/L; Blood Urea Nitrogen 7 mg/dL (9-20); Calcium 8.9 mg/dL (8.4-10.2); Carbon Dioxide 23 mmol/L (22-30); Chloride 89 mmol/L (98-107); Glucose 113 mg/dL (74-99); Lipase 76 U/L (23-300); Magnesium 1.3 mg/dL (1.6-2.3); Phosphorus 2.7 mg/dL (2.5-4.5); Sodium 127 mmol/L (137-145); Total Protein 6.7 g/dL (6.3-8.2)
[2017-09-03] MEDS ORDERED: LORazepam 2 MG/ML INJ IV PRN ×3 (19:36)
[2017-09-03] MEDS: MAGNESIUM SULFATE-D5W PMX 1 GM in DEXTROSE/WATER 1 100ML.BAG IVPB SCH ×2 (19:42→20:48)
[2017-09-03 21:58] VITALS: BP 131/83; PULSE 88; RESP 18; TEMP 98
== END 2017-09-03 21:56 | disposition home or self-care (01) ==
LOC: EC 18:25
DX: F10.239 Alcohol dependence with withdrawal, unspecified (principal); E83.42 Hypomagnesemia; E87.1 Hypo-osmolality and hyponatremia; R10.9 Unspecified abdominal pain; K21.9 Gastro-esophageal reflux disease without esophagitis; I10 Essential (primary) hypertension; F17.200 Nicotine dependence, unspecified, uncomplicated; Z79.51 Long term (current) use of inhaled steroids; Z79.899 Other long term (current) drug therapy
CPT/HCPCS: 99284; 96365; 96366; 96375; 36415; 80053; 82150; 83690; 83735; 84100; 85025; 96361; 96372; J2060; J3411; J3475

== ENCOUNTER 2017-09-06 09:39 | Inpatient (IN) | payer MEDICARE ==
[2017-09-06] MEDS ORDERED: SODIUM CHLORIDE 0.9% 2,000 ML IV STA (10:00)
[2017-09-06 10:18] LABS: Basophils % (A) 1 %; Eosinophils # (A) 0.1 k/uL (0-0.7); Eosinophils % (A) 2 %; HCT 35.9 % (39.0-53.0); Lymphocytes # (A) 1.4 k/uL (1.0-4.8); Lymphocytes % (A) 27 %; MCH 30.5 pg (25.0-35.0); MCHC 31.6 g/dL (31.0-37.0); MCV 96.6 fL (80.0-100.0); Mean Platelet Volume 7.1; Monocytes # (A) 0.2 k/uL (0-1.0); Monocytes % (A) 4 %; Neutrophils # (A) 3.3 k/uL (1.3-7.7); Neutrophils % (A) 64 %; Platelet Count 206 k/uL (150-450); RBC 3.72 m/uL (4.30-5.90); RDW 13.9 % (11.5-15.5); WBC 5.2 k/uL (3.8-10.6)
[2017-09-06 10:24] LABS: Prothrombin Time 9.5 sec (9.0-12.0)
[2017-09-06 10:26] LABS: HGB 11.3 gm/dL (13.0-17.5)
--- NOTE | 2017-09-06 10:31 | ED ---
Overdose HPI - General Chief Complaint: Overdose Stated Complaint: Suicidal/Overdose Time Seen by Provider: 09/06/17 09:44 Source: EMS Mode of arrival: EMS Limitations: no limitations - History of Present Illness Initial Comments: 51 years old male with a history of for drug overdose in the past took about 200 mg of Seroquel about or prior to 2 hours prior to his arrival to the ER he also as well has a history of for drug overdose in the past as well. He himself wakes up to the sternal rub and does not answer any questions no review of system is available on arrival he is tachycardic pulse rate is 117 his blood pressures quite low he was started on fluids right away - Related Data Home Medications Medication Instructions Recorded Confirmed Lisinopril [Zestril] 20 mg PO BID 09/11/16 09/06/17 Omeprazole 20 mg PO BID 09/11/16 09/06/17 Budesonide/Formoterol Fumarate 1 puff INHALATION RT-BID 04/18/17 09/06/17 [Symbicort 160-4.5 Mcg Inhaler] Dicyclomine [Bentyl] 20 mg PO QID 04/18/17 09/06/17 Albuterol Inhaler [Ventolin Hfa 1 - 2 puff INHALATION RT-Q6H PRN 04/21/17 Inhaler] Mometasone/Formoterol [Dulera 100 2 puff INHALATION RT-BID 06/19/17 09/06/17 Mcg/5 Mcg Inhaler] Multivitamins, Thera [Multivitamin 1 tab PO DAILY@1200 09/03/17 09/06/17 (formulary)] QUEtiapine FUMARATE [SEROquel] 3,000 mg PO ONCE 09/06/17 09/06/17 Previous Rx's Medication Instructions Recorded DULoxetine HCL [Cymbalta] 30 mg PO DAILY #30 rosio. 07/10/17 OLANZapine [ZyPREXA] 10 mg PO HS #30 tab 07/10/17 Thiamine [Vitamin B-1] 100 mg PO BID@1200,1700 #60 tab 07/10/17 busPIRone HCL 15 mg PO TID #90 tablet 07/10/17 lamoTRIgine [LaMICtal] 200 mg PO DAILY #30 tablet 07/10/17 chlordiazePOXIDE HCl [Librium] 25 mg PO QID #10 capsule 09/03/17 Allergies Allergy/AdvReac Type Severity Reaction Status Date / Time No Known Allergies Allergy Verified 09/06/17 09:57 Review of Systems ROS Statement: Those systems with pertinent positive or pertinent negative responses have been documented in the HPI. ROS Other: All systems not noted in ROS Statement are negative. Past Medical History Past Medical History: GERD/Reflux, Hypertension, Musculoskeletal Disorder, Pneumonia Additional Past Medical History / Comment(s): GI Bleed History of Any Multi-Drug Resistant Organisms: None Reported Past Surgical History: Bariatric Surgery, Orthopedic Surgery Additional Past Surgical History / Comment(s): Left inner Forearm-metal plate Past Anesthesia/Blood Transfusion Reactions: No Reported Reaction Past Psychological History: Anxiety, Bipolar, Depression, PTSD Smoking Status: Current every day smoker Past Alcohol Use History: Daily, Heavy Past Drug Use History: Cocaine, Heroin, Marijuana, Methamphetamine - Past Family History Mother Family Medical History: Hypertension Additional Family Medical History / Comment(s): Lupus General Exam - General Exam Comments Initial Comments: General: The patient rwesponds only to sternal rub but then fell asleep Skin: Skin is warm and dry and no rashes or lesions are noted. Eye: Pupils are equal, round and reactive to light, and quite constricted there are rather pinpoint Ears, nose, mouth and throat: There are moist mucous membranes and no oral lesions. Neck: The neck is examined no obvious deformity noticed Cardiovascular: There is a regular rate and rhythm. No murmur, rub or gallop is appreciated. Noticed tachycardia Respiratory: To auscultation bilateral, decreased breath sounds bilateral Gastrointestinal: Soft, non-distended, non-tender abdomen without masses or organomegaly noted. There is no rebound or guarding present. Bowel sounds are unremarkable. Back: There is no tenderness to palpation in the midline. There is no obvious deformity. Musculoskeletal: Normal ROM, no tenderness, There is no pedal edema. There is no calf tenderness or swelling. No cords were appreciated. Neurological: GCS is a 7 he is maintaining his airway is well Psychiatric: Cooperative, appropriate mood & affect, normal judgment. Limitations: no limitations Course Vital Signs 09/06/17 09/06/17 09/06/17 09:42 10:15 10:28 Temperature 98 F Pulse Rate 117 H 105 H Respiratory 16 16 16 Rate Blood Pressure 78/52 97/61 O2 Sat by Pulse 97 98 Oximetry EKG is a sinus tachycardia ventricular rate is 15 [place] interval is 148 QRS duration is 86 QT/QTc is 368/86 review of this EKG does not reveal any ST elevation or ST depression noticed some T-wave flattening in aVF V4 V5 and V6 Patient is reassessed at 12:30, he is easily arousable now he CBC, ABGs, troponin, compressive metabolic panel are unremarkable urine drug screen confirms benzo alcohol in now tricyclic antidepressants Medical Decision Making - Lab Data Result diagrams: 09/06/17 09:56 09/06/17 09:56 Lab Results 09/06/17 09/06/17 09/06/17 Range/Units 09:56 09:56 09:56 WBC 5.2 (3.8-10.6) k/uL RBC 3.72 L (4.30-5.90) m/uL Hgb 11.3 L D (13.0-17.5) gm/dL Hct 35.9 L (39.0-53.0) % MCV 96.6 (80.0-100.0) fL MCH 30.5 (25.0-35.0) pg MCHC 31.6 (31.0-37.0) g/dL RDW 13.9 (11.5-15.5) % Plt Count 206 (150-450) k/uL Neutrophils % 64 % Lymphocytes % 27 % Monocytes % 4 % Eosinophils % 2 % Basophils % 1 % Neutrophils # 3.3 (1.3-7.7) k/uL Lymphocytes # 1.4 (1.0-4.8) k/uL Monocytes # 0.2 (0-1.0) k/uL Eosinophils # 0.1 (0-0.7) k/uL Basophils # 0.0 (0-0.2) k/uL PT 9.5 (9.0-12.0) sec INR 1.0 (<1.2) Sample Site ABG pH (7.35-7.45) ABG pCO2 (35-45) mmHg ABG pO2 (83-108) mmHg ABG HCO3 (21-25) mmol/L ABG Total CO2 (19-24) mmol/L ABG O2 Saturation (94-97) % ABG Base Excess mmol/L Bhupinder Test FiO2 % Sodium 143 (137-145) mmol/L Potassium 3.9 (3.5-5.1) mmol/L Chloride 108 H (98-107) mmol/L Carbon Dioxide 22 (22-30) mmol/L Anion Gap 13 mmol/L BUN 9 (9-20) mg/dL Creatinine 0.56 L (0.66-1.25) mg/dL Est GFR (MDRD) Af Amer >60 (>60 ml/min/1.73 sqM) Est GFR (MDRD) Non-Af >60 (>60 ml/min/1.73 sqM) Glucose 101 H (74-99) mg/dL Calcium 8.4 (8.4-10.2) mg/dL Total Bilirubin 0.2 (0.2-1.3) mg/dL AST 27 (17-59) U/L ALT 24 (21-72) U/L Alkaline Phosphatase 66 (38-126) U/L Troponin I (0.000-0.034) ng/mL Total Protein 5.7 L (6.3-8.2) g/dL Albumin 3.2 L (3.5-5.0) g/dL Salicylates <1.0 mg/dL Urine Opiates Screen (NotDetected) Ur Oxycodone Screen (NotDetected) Urine Methadone Screen (NotDetected) Ur Propoxyphene Screen (NotDetected) Acetaminophen <10.0 ug/mL Ur Barbiturates Screen (NotDetected) U Tricyclic Antidepress (NotDetected) Ur Phencyclidine Scrn (NotDetected) Ur Amphetamines Screen (NotDetected) U Methamphetamines Scrn (NotDetected) U Benzodiazepines Scrn (NotDetected) Urine Cocaine Screen (NotDetected) U Marijuana (THC) Screen (NotDetected) Serum Alcohol 98 mg/dL 09/06/17 09/06/17 09/06/17 Range/Units 09:56 10:00 10:31 WBC (3.8-10.6) k/uL RBC (4.30-5.90) m/uL Hgb (13.0-17.5) gm/dL Hct (39.0-53.0) % MCV (80.0-100.0) fL MCH (25.0-35.0) pg MCHC (31.0-37.0) g/dL RDW (11.5-15.5) % Plt Count (150-450) k/uL Neutrophils % % Lymphocytes % % Monocytes % % Eosinophils % % Basophils % % Neutrophils # (1.3-7.7) k/uL Lymphocytes # (1.0-4.8) k/uL Monocytes # (0-1.0) k/uL Eosinophils # (0-0.7) k/uL Basophils # (0-0.2) k/uL PT (9.0-12.0) sec INR (<1.2) Sample Site rrad ABG pH 7.32 L (7.35-7.45) ABG pCO2 44 (35-45) mmHg ABG pO2 125 H (83-108) mmHg ABG HCO3 22 (21-25) mmol/L ABG Total CO2 24 (19-24) mmol/L ABG O2 Saturation 98.7 H (94-97) % ABG Base Excess -3.8 mmol/L Bhupinder Test Yes FiO2 28 % Sodium (137-145) mmol/L Potassium (3.5-5.1) mmol/L Chloride (98-107) mmol/L Carbon Dioxide (22-30) mmol/L Anion Gap mmol/L BUN (9-20) mg/dL Creatinine (0.66-1.25) mg/dL Est GFR (MDRD) Af Amer (>60 ml/min/1.73 sqM) Est GFR (MDRD) Non-Af (>60 ml/min/1.73 sqM) Glucose (74-99) mg/dL Calcium (8.4-10.2) mg/dL Total Bilirubin (0.2-1.3) mg/dL AST (17-59) U/L ALT (21-72) U/L Alkaline Phosphatase (38-126) U/L Troponin I <0.012 (0.000-0.034) ng/mL Total Protein (6.3-8.2) g/dL Albumin (3.5-5.0) g/dL Salicylates mg/dL Urine Opiates Screen Not Detected (NotDetected) Ur Oxycodone Screen Not Detected (NotDetected) Urine Methadone Screen Not Detected (NotDetected) Ur Propoxyphene Screen Not Detected (NotDetected) Acetaminophen ug/mL Ur Barbiturates Screen Not Detected (NotDetected) U Tricyclic Antidepress Detected H (NotDetected) Ur Phencyclidine Scrn Not Detected (NotDetected) Ur Amphetamines Screen Not Detected (NotDetected) U Methamphetamines Scrn Not Detected (NotDetected) U Benzodiazepines Scrn Detected H (NotDetected) Urine Cocaine Screen Not Detected (NotDetected) U Marijuana (THC) Screen Not Detected (NotDetected) Serum Alcohol mg/dL Critical Care Time Total Critical Care Time: 30 Critical Care Time: Rosie came in with the drug overdose his blood pressure was quite low he was quite tachycardic at that time we started 2 IVs given some fluid bolus with that his hypotension as well as tachycardia improved then he has a GCS improved and alert however down the road considering is a Seroquel overdose is intentional even need a psych consult but considering his Seroquel large amount and did speak with the Dr. Suresh he agrees with the admission but he prefers to palpitnt in the ICU will get a consult Dr. Giordano Disposition Clinical Impression: Drug overdose, Tachycardia, Hypotension Disposition: ADMITTED IP TO THIS HOSP Referrals: Lolita Perez DO [Primary Care Provider] - 1-2 days
[2017-09-06 10:35] LABS: ALT 24 U/L (21-72); AST 27 U/L (17-59); Acetaminophen <10.0 ug/mL; Albumin 3.2 g/dL (3.5-5.0); Alkaline Phosphatase 66 U/L (38-126); Anion Gap 13 mmol/L; Blood Urea Nitrogen 9 mg/dL (9-20); Calcium 8.4 mg/dL (8.4-10.2); Carbon Dioxide 22 mmol/L (22-30); Chloride 108 mmol/L (98-107); Glucose 101 mg/dL (74-99); Potassium 3.9 mmol/L (3.5-5.1); Salicylate <1.0 mg/dL; Sodium 143 mmol/L (137-145); Total Bilirubin 0.2 mg/dL (0.2-1.3); Total Protein 5.7 g/dL (6.3-8.2)
[2017-09-06 10:36] LABS: ABG Base Excess -3.8 mmol/L; ABG HCO3 22 mmol/L (21-25); ABG Oxygen Saturation 98.7 % (94-97); ABG PCO2 44 mmHg (35-45); ABG PH 7.32 (7.35-7.45); ABG PO2 125 mmHg (83-108); ABG TCO2 24 mmol/L (19-24)
[2017-09-06 10:38] LABS: Alcohol 98 mg/dL
[2017-09-06 10:38] LABS: Cocaine Screen,Urine Not Detected (NotDetected); Phencyclidine Screen,Urine Not Detected (NotDetected); Urn Cannabinoid Scrn Not Detected (NotDetected)
[2017-09-06 10:39] LABS: Amphetamine Screen,Urine Not Detected (NotDetected); Barbiturate Screen,Urine Not Detected (NotDetected); Benzodiazepines Screen,Urine Detected (NotDetected); Methadone Screen, Urine Not Detected (NotDetected); Opiate Screen,Urine Not Detected (NotDetected); Oxycodone Screen, Urine Not Detected (NotDetected); Tricyclic Antidepressant,Urine Detected (NotDetected)
--- NOTE | 2017-09-06 11:07 | XR ---
EXAMINATION TYPE: XR chest 1V portable DATE OF EXAM: 09/06/2017 COMPARISON: 07/04/2017 HISTORY: Aspiration TECHNIQUE: Single frontal view of the chest is obtained. FINDINGS: Elevated bilateral hemidiaphragms with subsegmental changes at the left lung base. Chronic rib deformity. No pneumothorax. Heart size stable. Atherosclerotic change aorta. IMPRESSION: Subsegmental changes involving the left lung base persist with elevated left hemidiaphra gm. Atelectasis versus infiltrate.
[2017-09-06] MEDS ORDERED: NALOXONE 0.4 MG/ML 1 ML VIAL IV PRN (12:51)
[2017-09-06] MEDS ORDERED: ALBUTEROL NEBULIZED 2.5 MG/3 ML INHALATION PRN (12:56)
--- NOTE | 2017-09-06 14:12 | P.HPIM ---
History of Present Illness H&P Date: 09/06/17 Chief Complaint: Drug overdose with Seroquel This is a 51-year-old male, patient of [facility]. He has a known past medical history of previous drug overdose and psychiatric admissions. Also has a history of GERD, hypertension, bipolar, schizophrenia, PTSD and daily alcohol use. Patient seen and examined in the emergency room. He is currently unresponsive. Patient had taken ten 300 mg tablets of Seroquel about 2 hours prior to arrival to the emergency room. Patient was tachycardic on arrival. With a heart rate of 117 and hypotensive with BP of 78/52. He received IV fluid bolus. Blood pressure has shown improvement. Drug screen was positive for tricyclic antidepressants and benzodiazepines. Elevated alcohol level at 98. Patient will be admitted to the ICU. Chest x-ray shows subsegmental changes involving the left lung base with elevated left hemidiaphragm. Possible atelectasis versus infiltrate. EKG showed sinus tach with a heart rate of 105. Pulmonary service and psychiatry have been consulted. ABG shows a pH of 7.3 to pCO2 44 pO2 125 and bicarb 22. Unable to obtain review of systems. Patient is unarousable. Last reported vitals his heart rate of 106 respiratory rate 16 blood pressure 126/90 on 2 L nasal cannula satting at 98%. History was obtained from ER report and ER nurse Review of Systems Unable to obtain patient is unresponsive Past Medical History Past Medical History: GERD/Reflux, Hypertension, Musculoskeletal Disorder, Pneumonia Additional Past Medical History / Comment(s): GI Bleed, kidney stones History of Any Multi-Drug Resistant Organisms: None Reported Past Surgical History: Bariatric Surgery, Orthopedic Surgery Additional Past Surgical History / Comment(s): Left inner Forearm-metal plate Past Anesthesia/Blood Transfusion Reactions: No Reported Reaction Past Psychological History: Anxiety, Bipolar, Depression, PTSD Smoking Status: Current every day smoker Past Alcohol Use History: Daily, Heavy Past Drug Use History: Cocaine, Heroin, Marijuana, Methamphetamine - Past Family History Mother Family Medical History: Hypertension Additional Family Medical History / Comment(s): Lupus Medications and Allergies Home Medications Medication Instructions Recorded Confirmed Type Lisinopril [Zestril] 20 mg PO BID 09/11/16 09/06/17 History Omeprazole 20 mg PO BID 09/11/16 09/06/17 History Budesonide/Formoterol Fumarate 1 puff INHALATION RT-BID 04/18/17 09/06/17 History [Symbicort 160-4.5 Mcg Inhaler] Dicyclomine [Bentyl] 20 mg PO QID 04/18/17 09/06/17 History Albuterol Inhaler [Ventolin Hfa 1 - 2 puff INHALATION RT-Q6H PRN 04/21/17 History Inhaler] Mometasone/Formoterol [Dulera 100 2 puff INHALATION RT-BID 06/19/17 09/06/17 History Mcg/5 Mcg Inhaler] DULoxetine HCL [Cymbalta] 30 mg PO DAILY #30 capsule. 07/10/17 09/06/17 Rx OLANZapine [ZyPREXA] 10 mg PO HS #30 tab 07/10/17 09/06/17 Rx Thiamine [Vitamin B-1] 100 mg PO BID@1200,1700 #60 tab 07/10/17 09/06/17 Rx busPIRone HCL 15 mg PO TID #90 tablet 07/10/17 09/06/17 Rx lamoTRIgine [LaMICtal] 200 mg PO DAILY #30 tablet 07/10/17 09/06/17 Rx Multivitamins, Thera [Multivitamin 1 tab PO DAILY@1200 09/03/17 09/06/17 History (formulary)] chlordiazePOXIDE HCl [Librium] 25 mg PO QID #10 capsule 09/03/17 09/06/17 Rx QUEtiapine FUMARATE [SEROquel] 3,000 mg PO ONCE 09/06/17 09/06/17 History Allergies Allergy/AdvReac Type Severity Reaction Status Date / Time No Known Allergies Allergy Verified 09/06/17 09:57 Physical Exam Vitals: Vital Signs Temp Pulse Resp BP Pulse Ox 09/06/17 13:42 106 H 16 126/90 98 09/06/17 12:42 95 16 107/69 99 09/06/17 10:28 105 H 16 97/61 98 09/06/17 10:15 16 09/06/17 09:42 98 F 117 H 16 78/52 97 Intake and Output 09/05/17 09/06/17 09/06/17 22:59 06:59 14:59 Other: Weight 68.039 kg Patient Weight 09/07/17 06:59 Weight 68.039 kg Head normocephalic Neck supple Lungs clear to auscultation bilaterally no wheezing or crackles Heart regular rate and rhythm S1-S2, no rub or gallop Abdomen is soft nontender nondistended positive bowel sounds no hepatosplenomegaly Extremities no edema Neuro unresponsive Results CBC & Chem 7: 09/06/17 09:56 09/06/17 09:56 Labs: Abnormal Lab Results - Last 24 Hours (Table) 09/06/17 09/06/17 09/06/17 Range/Units 09:56 09:56 10:00 RBC 3.72 L (4.30-5.90) m/uL Hgb 11.3 L D (13.0-17.5) gm/dL Hct 35.9 L (39.0-53.0) % ABG pH (7.35-7.45) ABG pO2 (83-108) mmHg ABG O2 Saturation (94-97) % Chloride 108 H (98-107) mmol/L Creatinine 0.56 L (0.66-1.25) mg/dL Glucose 101 H (74-99) mg/dL Total Protein 5.7 L (6.3-8.2) g/dL Albumin 3.2 L (3.5-5.0) g/dL U Tricyclic Antidepress Detected H (NotDetected) U Benzodiazepines Scrn Detected H (NotDetected) 09/06/17 Range/Units 10:31 RBC (4.30-5.90) m/uL Hgb (13.0-17.5) gm/dL Hct (39.0-53.0) % ABG pH 7.32 L (7.35-7.45) ABG pO2 125 H (83-108) mmHg ABG O2 Saturation 98.7 H (94-97) % Chloride (98-107) mmol/L Creatinine (0.66-1.25) mg/dL Glucose (74-99) mg/dL Total Protein (6.3-8.2) g/dL Albumin (3.5-5.0) g/dL U Tricyclic Antidepress (NotDetected) U Benzodiazepines Scrn (NotDetected) Assessment and Plan Assessment: 1. Drug overdose with Seroquel and alcohol. Patient will be admitted to the ICU. Consult will be placed for Dr. Lopez for ICU management. Psychiatry has been consulted. 2. Alcohol intoxication: EtOH level of 98. Patient has history of daily alcohol use. We'll start CIWA protocol when patient is more alert 3. Unresponsive secondary to drug overdose and alcohol. 4. Sinus tachycardia and hypotension due to drug overdose. Patient received IV fluid bolus. Blood pressure and tachycardia showing improvement. 5. History of essential hypertension 6. Nicotine dependence 7. History of PTSD GI prophylaxis Protonix and DVT prophylaxis subcu heparin Time with Patient: Greater than 30 (Greater than 50% of the total time spent in counseling and coordination of care.I performed an examination of the patient and discussed their management with the physician Mechanical Applications Engineer. I have reviewed the Physician Mechanical Applications Engineer's notes and agree with the documented findings and plan of care)
--- NOTE | 2017-09-06 14:38 | P.CNPUL ---
History of Present Illness Consult date: 09/06/17 Requesting physician: Eliza Suresh Reason for consult: other (Critical care management) Chief complaint: Drug overdose History of present illness: This is a 51-year-old gentleman who follows with Dr. Perez as his primary care physician. He has a history of hypertension, GI bleed, bariatric surgery, gastroesophageal reflux disease, anxiety/depression, bipolar disorder, posttraumatic stress syndrome disorder, chronic and ongoing tobacco dependence, chronic obstructive pulmonary disease chronic and ongoing daily alcohol use, IV drug user with heroin. History of cocaine marijuana methamphetamine use. He was brought into the emergency room earlier this morning secondary to a drug and alcohol overdose. Suspect Seroquel. Urine drug screen is positive for tricyclic antidepressants and benzodiazepines. Serum alcohol level 98. Arterial blood gases reveal a pO2 of 125, pH 7.32, pCO2 44 and 20% FiO2. He is seen in consultation in the emergency room. He is quite obtunded. He is responding to sternal rub only. Currently protecting his airway. He is 98-99% O2 saturations on 2 L/m per nasal cannula. He is slightly tachycardic. Hemodynamically stable. He was given 2 L of fluid resuscitation. Chest x-ray shows subsegmental changes in the left lung base secondary to atelectasis. Review of Systems ROS unobtainable: due to mental status Past Medical History Past Medical History: GERD/Reflux, Hypertension, Musculoskeletal Disorder, Pneumonia Additional Past Medical History / Comment(s): GI Bleed, kidney stones History of Any Multi-Drug Resistant Organisms: None Reported Past Surgical History: Bariatric Surgery, Orthopedic Surgery Additional Past Surgical History / Comment(s): Left inner Forearm-metal plate Past Anesthesia/Blood Transfusion Reactions: No Reported Reaction Past Psychological History: Anxiety, Bipolar, Depression, PTSD Smoking Status: Current every day smoker Past Alcohol Use History: Daily, Heavy Past Drug Use History: Cocaine, Heroin, Marijuana, Methamphetamine - Past Family History Mother Family Medical History: Hypertension Additional Family Medical History / Comment(s): Lupus Medications and Allergies Home Medications Medication Instructions Recorded Confirmed Type Lisinopril [Zestril] 20 mg PO BID 09/11/16 09/06/17 History Omeprazole 20 mg PO BID 09/11/16 09/06/17 History Budesonide/Formoterol Fumarate 1 puff INHALATION RT-BID 04/18/17 09/06/17 History [Symbicort 160-4.5 Mcg Inhaler] Dicyclomine [Bentyl] 20 mg PO QID 04/18/17 09/06/17 History Albuterol Inhaler [Ventolin Hfa 1 - 2 puff INHALATION RT-Q6H PRN 04/21/17 History Inhaler] Mometasone/Formoterol [Dulera 100 2 puff INHALATION RT-BID 06/19/17 09/06/17 History Mcg/5 Mcg Inhaler] DULoxetine HCL [Cymbalta] 30 mg PO DAILY #30 capsule. 07/10/17 09/06/17 Rx OLANZapine [ZyPREXA] 10 mg PO HS #30 tab 07/10/17 09/06/17 Rx Thiamine [Vitamin B-1] 100 mg PO BID@1200,1700 #60 tab 07/10/17 09/06/17 Rx busPIRone HCL 15 mg PO TID #90 tablet 07/10/17 09/06/17 Rx lamoTRIgine [LaMICtal] 200 mg PO DAILY #30 tablet 07/10/17 09/06/17 Rx Multivitamins, Thera [Multivitamin 1 tab PO DAILY@1200 09/03/17 09/06/17 History (formulary)] chlordiazePOXIDE HCl [Librium] 25 mg PO QID #10 capsule 09/03/17 09/06/17 Rx QUEtiapine FUMARATE [SEROquel] 3,000 mg PO ONCE 09/06/17 09/06/17 History Allergies Allergy/AdvReac Type Severity Reaction Status Date / Time No Known Allergies Allergy Verified 09/06/17 09:57 Physical Exam Vitals: Vital Signs Temp Pulse Resp BP Pulse Ox 09/06/17 13:42 106 H 16 126/90 98 09/06/17 12:42 95 16 107/69 99 09/06/17 10:28 105 H 16 97/61 98 09/06/17 10:15 16 09/06/17 09:42 98 F 117 H 16 78/52 97 Intake and Output 09/05/17 09/06/17 09/06/17 22:59 06:59 14:59 Other: Weight 68.039 kg Patient Weight 09/07/17 06:59 Weight 68.039 kg GENERAL EXAM: Obtunded, unresponsive. HEAD: Normocephalic. EYES: Sluggish reaction of pupils, equal size. NOSE: Clear with pink turbinates. THROAT: No erythema or exudates. NECK: No masses, no JVD. CHEST: No chest wall deformity. LUNGS: Equal air entry with no crackles, wheeze, rhonchi or dullness. CVS: S1 and S2 normal with no audible murmur, regular rhythm. ABDOMEN: No hepatosplenomegaly, normal bowel sounds, no guarding or rigidity. SPINE: No scoliosis or deformity SKIN: No rashes CENTRAL NERVOUS SYSTEM: No focal deficits, tone is normal in all 4 extremities. EXTREMITIES: There is no peripheral edema. No clubbing, no cyanosis. Peripheral pulses are intact. Results - Laboratory Findings CBC and BMP: 09/06/17 09:56 09/06/17 09:56 ABG ABG pH 7.32 (7.35-7.45) L 09/06/17 10:31 ABG pCO2 44 mmHg (35-45) 09/06/17 10:31 ABG pO2 125 mmHg (83-108) H 09/06/17 10:31 ABG O2 Saturation 98.7 % (94-97) H 09/06/17 10:31 PT/INR, D-dimer PT 9.5 sec (9.0-12.0) 09/06/17 09:56 INR 1.0 (<1.2) 09/06/17 09:56 Abnormal lab findings: Abnormal Labs 09/06/17 09/06/17 09/06/17 09:56 09:56 10:00 RBC 3.72 L Hgb 11.3 L D Hct 35.9 L ABG pH ABG pO2 ABG O2 Saturation Chloride 108 H Creatinine 0.56 L Glucose 101 H Total Protein 5.7 L Albumin 3.2 L U Tricyclic Antidepress Detected H U Benzodiazepines Scrn Detected H 09/06/17 10:31 RBC Hgb Hct ABG pH 7.32 L ABG pO2 125 H ABG O2 Saturation 98.7 H Chloride Creatinine Glucose Total Protein Albumin U Tricyclic Antidepress U Benzodiazepines Scrn - Diagnostic Findings Chest x-ray: image reviewed Assessment and Plan Assessment: Impression: #1 Altered mental status secondary to drug and alcohol overdose. Suspect Seroquel. Alcohol level 98. #2 History of drug abuse including heroin, cocaine, methamphetamines, cannabinoid. #3 Alcoholism. #4 Bipolar disorder. #5 Post rheumatic stress disorder. #6 Chronic and ongoing tobacco dependence. #7 Chronic obstructive pulmonary disease. #8 Hypertension. #9 Gastroesophageal reflux disease. Plan: The patient was seen and evaluated by Dr. Lopez. He is currently able to protect his airway. He'll be transferred to the intensive care unit for closer monitoring. We'll continue with his COPD medications including DuoNeb inhalations, Symbicort. He is on heparin for DVT prophylaxis. Protonix for GI prophylaxis. Psychiatry will be consulted. CIWA protocol has been initiated. We will continue to follow and make further recommendations based on his clinical status. I, the cosigning physician, performed a history & physical examination of the patient. Lungs sounds are clear. Diminished. Maintaining good O2 saturations in the 90s on 2 L/m per nasal cannula. I discussed the assessment and plan of care with my nurse practitioner, Jada Webb. I attest to the above note as dictated by her. Time with Patient: Greater than 30
[2017-09-06] MEDS: IPRATROPIUM-ALBUTEROL 3 ML NEB INHALATION PRN (15:16)
[2017-09-06 18:04] LABS: Glucose,Whole Blood 78 mg/dL (75-99)
[2017-09-06] MEDS: THIAMINE 100 MG TAB PO SCH (18:11)
[2017-09-06] MEDS: SODIUM CHLORIDE 0.9% 1,000 ML IV SCH (18:19)
[2017-09-06 18:37] VITALS: BMI 26.4
[2017-09-06] MEDS ORDERED: NON-FORMULARY DRUG (Mometasone/Formoterol [Dulera 100 Mcg/5 Mcg Inhaler] 2 PUFF) INHALATION SCH (20:00)
[2017-09-06] MEDS: HEPARIN SODIUM,PORCINE 5,000 UNIT/ML 1 ML VIAL SQ SCH (20:44)
[2017-09-06] MEDS: SYMBICORT 160-4.5 MCG INHALER INHALATION SCH (20:53)
[2017-09-06 21:22] LABS: Hemoglobin A1C 5.7 % (4.0-6.0)
[2017-09-06 22:23] LABS: Anion Gap 8 mmol/L; Blood Urea Nitrogen 10 mg/dL (9-20); Calcium 8.7 mg/dL (8.4-10.2); Carbon Dioxide 24 mmol/L (22-30); Chloride 109 mmol/L (98-107); Glucose 71 mg/dL (74-99); Magnesium 1.6 mg/dL (1.6-2.3); Potassium 4.2 mmol/L (3.5-5.1); Sodium 141 mmol/L (137-145)
[2017-09-06] MEDS ORDERED: Magnesium Replacement Protocol 1 EACH MISC MISCELLANE PRN (22:28)
[2017-09-07] MEDS: MAGNESIUM SULFATE-D5W PMX 1 GM in DEXTROSE/WATER 1 100ML.BAG IVPB SCH ×2 (00:57)
[2017-09-07] MEDS: SODIUM CHLORIDE 0.9% 1,000 ML IV SCH ×4 (00:57→22:43)
[2017-09-07] MEDS ORDERED: hydrALAZINE HCL 20 MG/ML 1 ML VIAL IVP PRN (02:30)
[2017-09-07 04:03] LABS: Glucose,Whole Blood 83 mg/dL (75-99)
[2017-09-07 04:33] LABS: Basophils % (A) 0 %; Eosinophils # (A) 0.2 k/uL (0-0.7); Eosinophils % (A) 3 %; HCT 36.7 % (39.0-53.0); HGB 11.1 gm/dL (13.0-17.5); Hypochromasia Moderate; Lymphocytes # (A) 1.1 k/uL (1.0-4.8); Lymphocytes % (A) 20 %; MCH 30.4 pg (25.0-35.0); MCHC 30.4 g/dL (31.0-37.0); MCV 100.2 fL (80.0-100.0); Mean Platelet Volume 7.2; Monocytes # (A) 0.3 k/uL (0-1.0); Monocytes % (A) 5 %; Neutrophils # (A) 3.8 k/uL (1.3-7.7); Neutrophils % (A) 69 %; Platelet Count 213 k/uL (150-450); RBC 3.66 m/uL (4.30-5.90); RDW 13.9 % (11.5-15.5); WBC 5.5 k/uL (3.8-10.6)
[2017-09-07 04:53] LABS: ALT 20 U/L (21-72); AST 23 U/L (17-59); Albumin 3.1 g/dL (3.5-5.0); Alkaline Phosphatase 72 U/L (38-126); Anion Gap 9 mmol/L; Blood Urea Nitrogen 10 mg/dL (9-20); Calcium 8.4 mg/dL (8.4-10.2); Carbon Dioxide 23 mmol/L (22-30); Chloride 109 mmol/L (98-107); Glucose 83 mg/dL (74-99); Magnesium 1.9 mg/dL (1.6-2.3); Phosphorus 3.5 mg/dL (2.5-4.5); Potassium 4.2 mmol/L (3.5-5.1); Sodium 141 mmol/L (137-145); Total Bilirubin 0.7 mg/dL (0.2-1.3); Total Protein 5.8 g/dL (6.3-8.2)
[2017-09-07] MEDS: SYMBICORT 160-4.5 MCG INHALER INHALATION SCH ×2 (07:21→20:12)
[2017-09-07] MEDS: PANTOPRAZOLE 40 MG TABLET PO SCH (07:50)
--- NOTE | 2017-09-07 07:51 | XR ---
EXAMINATION TYPE: XR chest 1V portable DATE OF EXAM: 09/07/2017 COMPARISON: Prior chest x-ray 09/06/2017 HISTORY: Abnormal chest x-ray, aspiration, overdose TECHNIQUE: Single frontal view of the chest is obtained. FINDINGS: Patient is rotated. Elevation of left hemidiaphragm persists, there is basilar density not ed. No pneumothorax. Heart size is stable. Aorta diameter appears accentuated. Old rib fractures note d on the right. IMPRESSION: There may be lower lobe atelectasis versus pneumonia. Cannot exclude thoracic aortic ane urysm or small effusion. Rotated exam, recommend follow-up PA and lateral chest x-ray when stable.
[2017-09-07] MEDS: HEPARIN SODIUM,PORCINE 5,000 UNIT/ML 1 ML VIAL SQ SCH ×2 (07:54→22:43)
[2017-09-07] MEDS: PIPERACILLIN-TAZOBACTAM 3.375 GM in DEXTROSE/WATER 1 50ML.BAG IVPB SCH ×3 (09:13→23:39)
--- NOTE | 2017-09-07 10:31 | P.PN ---
Subjective Progress Note Date: 09/07/17 This is a 51-year-old male, patient of [facility]. He has a known past medical history of previous drug overdose and psychiatric admissions. Also has a history of GERD, hypertension, bipolar, schizophrenia, PTSD and daily alcohol use. Patient seen and examined in the emergency room. He is currently unresponsive. Patient had taken ten 300 mg tablets of Seroquel about 2 hours prior to arrival to the emergency room. Patient was tachycardic on arrival. With a heart rate of 117 and hypotensive with BP of 78/52. He received IV fluid bolus. Blood pressure has shown improvement. Drug screen was positive for tricyclic antidepressants and benzodiazepines. Elevated alcohol level at 98. Patient will be admitted to the ICU. Chest x-ray shows subsegmental changes involving the left lung base with elevated left hemidiaphragm. Possible atelectasis versus infiltrate. EKG showed sinus tach with a heart rate of 105. Pulmonary service and psychiatry have been consulted. ABG shows a pH of 7.3 to pCO2 44 pO2 125 and bicarb 22. Unable to obtain review of systems. Patient is unarousable. Last reported vitals his heart rate of 106 respiratory rate 16 blood pressure 126/90 on 2 L nasal cannula satting at 98%. History was obtained from ER report and ER nurse 09/07/2017 patient currently in the ICU. He is lethargic. But more responsive than yesterday. He is able to answer a few questions and falls back asleep. He denies any chest pain or shortness of breath. Denies any nausea or vomiting. Denies any abdominal pain. Has Valdes catheter in place. Today's chest x-ray report states lower lobe atelectasis versus pneumonia cannot exclude thoracic aortic aneurysm or small effusion Objective - Vital Signs Vital signs: Vital Signs Temp 97.4 F L 09/07/17 08:00 Pulse 82 09/07/17 10:00 Resp 11 L 09/07/17 10:00 BP 152/97 09/07/17 10:00 Pulse Ox 99 09/07/17 10:00 Intake & Output 09/06/17 09/07/17 09/07/17 18:59 06:59 18:59 Intake Total 1850 450 Output Total 400 1085 150 Balance -400 765 300 Weight 78.9 kg 79 kg Intake: IV 1850 450 Magnesium Sulfate-D5w Pmx 200 1 gm In Dextrose/Water 1 100ml.bag @ 100 mls/hr IVPB Q1H [facility] Rx#: [id number] Sodium Chloride 0.9% 1, 1650 450 000 ml @ 150 mls/hr IV . Q6H40M [facility] Rx#:[id number] Output: Urine 400 1085 150 Other: Voiding Method Indwelling Catheter Indwelling Catheter - Exam Head normocephalic Neck supple Lungs clear to auscultation bilaterally no wheezing or crackles Heart regular rate and rhythm S1-S2, no rub or gallop Abdomen is soft nontender nondistended positive bowel sounds no hepatosplenomegaly Extremities no edema Neuro lethargic but arousable and able to answer questions. He is orientated 3 - Labs CBC & Chem 7: 09/07/17 04:17 09/07/17 04:17 Labs: Abnormal Lab Results - Last 24 Hours (Table) 09/06/17 09/06/17 09/06/17 Range/Units 09:56 09:56 10:00 RBC 3.72 L (4.30-5.90) m/uL Hgb 11.3 L D (13.0-17.5) gm/dL Hct 35.9 L (39.0-53.0) % MCV (80.0-100.0) fL MCHC (31.0-37.0) g/dL ABG pH (7.35-7.45) ABG pO2 (83-108) mmHg ABG O2 Saturation (94-97) % Chloride 108 H (98-107) mmol/L Creatinine 0.56 L (0.66-1.25) mg/dL Glucose 101 H (74-99) mg/dL ALT (21-72) U/L Total Protein 5.7 L (6.3-8.2) g/dL Albumin 3.2 L (3.5-5.0) g/dL U Tricyclic Antidepress Detected H (NotDetected) U Benzodiazepines Scrn Detected H (NotDetected) 09/06/17 09/06/17 09/07/17 Range/Units 10:31 21:45 04:17 RBC 3.66 L (4.30-5.90) m/uL Hgb 11.1 L (13.0-17.5) gm/dL Hct 36.7 L (39.0-53.0) % MCV 100.2 H (80.0-100.0) fL MCHC 30.4 L (31.0-37.0) g/dL ABG pH 7.32 L (7.35-7.45) ABG pO2 125 H (83-108) mmHg ABG O2 Saturation 98.7 H (94-97) % Chloride 109 H (98-107) mmol/L Creatinine 0.53 L (0.66-1.25) mg/dL Glucose 71 L (74-99) mg/dL ALT (21-72) U/L Total Protein (6.3-8.2) g/dL Albumin (3.5-5.0) g/dL U Tricyclic Antidepress (NotDetected) U Benzodiazepines Scrn (NotDetected) 09/07/17 Range/Units 04:17 RBC (4.30-5.90) m/uL Hgb (13.0-17.5) gm/dL Hct (39.0-53.0) % MCV (80.0-100.0) fL MCHC (31.0-37.0) g/dL ABG pH (7.35-7.45) ABG pO2 (83-108) mmHg ABG O2 Saturation (94-97) % Chloride 109 H (98-107) mmol/L Creatinine 0.50 L (0.66-1.25) mg/dL Glucose (74-99) mg/dL ALT 20 L (21-72) U/L Total Protein 5.8 L (6.3-8.2) g/dL Albumin 3.1 L (3.5-5.0) g/dL U Tricyclic Antidepress (NotDetected) U Benzodiazepines Scrn (NotDetected) Assessment and Plan Assessment: 1. Acute toxic encephalopathy secondary to drug overdose and alcohol toxicity. Drug overdose with Seroquel and alcohol. Patient will be admitted to the ICU. Pulmonary service following. Psychiatry consulted. 2. Alcohol intoxication: EtOH level of 98. Patient has history of daily alcohol use. We'll start CIWA protocol when patient is more alert. Continue thiamine and multivitamin. 3. Unresponsive secondary to drug overdose and alcohol. 4. Sinus tachycardia and hypotension due to drug overdose. Patient received IV fluid bolus. Blood pressure and tachycardia shown improvement 5. History of essential hypertension 6. Nicotine dependence 7. History of PTSD 8. Possible pneumonia noted on chest x-ray, patient started on IV Zosyn GI prophylaxis Protonix and DVT prophylaxis subcu heparin I performed an examination of the patient and discussed their management with the physician Commercial Designer. I have reviewed the Physician Commercial Designer's notes and agree with the documented findings and plan of care
--- NOTE | 2017-09-07 10:45 | P.PN ---
Subjective Progress Note Date: 09/07/17 Principal diagnosis: Altered mental status secondary to drug and alcohol overdose suspect Seroquel. This is a 51-year-old gentleman who follows with Dr. Perez as his primary care physician. He has a history of hypertension, GI bleed, bariatric surgery, gastroesophageal reflux disease, anxiety/depression, bipolar disorder, posttraumatic stress syndrome disorder, chronic and ongoing tobacco dependence, chronic obstructive pulmonary disease chronic and ongoing daily alcohol use, IV drug user with heroin. History of cocaine marijuana methamphetamine use. He was brought into the emergency room earlier this morning secondary to a drug and alcohol overdose. Suspect Seroquel. Urine drug screen is positive for tricyclic antidepressants and benzodiazepines. Serum alcohol level 98. Arterial blood gases reveal a pO2 of 125, pH 7.32, pCO2 44 and 20% FiO2. He is seen in consultation in the emergency room. He is quite obtunded. He is responding to sternal rub only. Currently protecting his airway. He is 98-99% O2 saturations on 2 L/m per nasal cannula. He is slightly tachycardic. Hemodynamically stable. He was given 2 L of fluid resuscitation. Chest x-ray shows subsegmental changes in the left lung base secondary to atelectasis. Patient was seen again today on 09/07/2017, I saw him yesterday prior to admission was he was in the emergency room, and overnight the patient was admitted to the ICU. Patient is doing much better today, he is more awake, responsive, seems to be oriented to place and to time. Patient knows that he overdosed on Seroquel. Drifts on his own to sleep easily if left alone. But overall significant improvement compared to yesterday. And he does not seem to be in any form of distress. His CBC was noted to be relatively normal hemoglobin is 11.1. His electrolytes and renal profile are normal. Chest x- ray however is showing a left lower lobe atelectasis or possibly infiltrate, hence I recommended starting the patient on Zosyn empirically. Objective - Vital Signs Vital signs: Vital Signs Temp 97.4 F L 09/07/17 08:00 Pulse 82 09/07/17 10:00 Resp 11 L 09/07/17 10:00 BP 152/97 09/07/17 10:00 Pulse Ox 99 09/07/17 10:00 Intake & Output 02/09/07/17 09/07/17 18:59 06:59 18:59 Intake Total 1850 450 Output Total 400 1085 150 Balance -400 765 300 Weight 78.9 kg 79 kg Intake: IV 1850 450 Magnesium Sulfate-D5w Pmx 200 1 gm In Dextrose/Water 1 100ml.bag @ 100 mls/hr IVPB Q1H [facility] Rx#: [id number] Sodium Chloride 0.9% 1, 1650 450 000 ml @ 150 mls/hr IV . Q6H40M [facility] Rx#:[id number] Output: Urine 400 1085 150 Other: Voiding Method Indwelling Catheter Indwelling Catheter - Exam GENERAL EXAM: Sleepy, but arousable, responds and follows instructions properly. HEAD: Normocephalic. EYES: Sluggish reaction of pupils, equal size. NOSE: Clear with pink turbinates. THROAT: No erythema or exudates. NECK: No masses, no JVD. CHEST: No chest wall deformity. LUNGS: Equal air entry with no crackles, wheeze, rhonchi or dullness. CVS: S1 and S2 normal with no audible murmur, regular rhythm. ABDOMEN: No hepatosplenomegaly, normal bowel sounds, no guarding or rigidity. SPINE: No scoliosis or deformity SKIN: No rashes CENTRAL NERVOUS SYSTEM: No focal deficits, except the patient remains a bit lethargic and sleepy. tone is normal in all 4 extremities. EXTREMITIES: There is no peripheral edema. No clubbing, no cyanosis. Peripheral pulses are intact. - Labs CBC & Chem 7: 09/07/17 04:17 09/07/17 04:17 Labs: Abnormal Lab Results - Last 24 Hours (Table) 09/06/17 09/06/17 09/07/17 Range/Units 10:31 21:45 04:17 RBC 3.66 L (4.30-5.90) m/uL Hgb 11.1 L (13.0-17.5) gm/dL Hct 36.7 L (39.0-53.0) % MCV 100.2 H (80.0-100.0) fL MCHC 30.4 L (31.0-37.0) g/dL ABG pH 7.32 L (7.35-7.45) ABG pO2 125 H (83-108) mmHg ABG O2 Saturation 98.7 H (94-97) % Chloride 109 H (98-107) mmol/L Creatinine 0.53 L (0.66-1.25) mg/dL Glucose 71 L (74-99) mg/dL ALT (21-72) U/L Total Protein (6.3-8.2) g/dL Albumin (3.5-5.0) g/dL 09/07/17 Range/Units 04:17 RBC (4.30-5.90) m/uL Hgb (13.0-17.5) gm/dL Hct (39.0-53.0) % MCV (80.0-100.0) fL MCHC (31.0-37.0) g/dL ABG pH (7.35-7.45) ABG pO2 (83-108) mmHg ABG O2 Saturation (94-97) % Chloride 109 H (98-107) mmol/L Creatinine 0.50 L (0.66-1.25) mg/dL Glucose (74-99) mg/dL ALT 20 L (21-72) U/L Total Protein 5.8 L (6.3-8.2) g/dL Albumin 3.1 L (3.5-5.0) g/dL Assessment and Plan Assessment: #1 Altered mental status secondary to drug and alcohol overdose. Suspect Seroquel. Alcohol level 98. #2 History of drug abuse including heroin, cocaine, methamphetamines, cannabinoid. #3 Alcoholism. #4 Bipolar disorder. #5 Post rheumatic stress disorder. #6 Chronic and ongoing tobacco dependence. #7 Chronic obstructive pulmonary disease. #8 Hypertension. #9 Gastroesophageal reflux disease. #10 left lower lobe pneumonia, suspect aspiration, hence the patient will be started on Zosyn empirically. Recommendation: Continue present supportive care measures, patient could be transferred out of the ICU to a regular medical floor, will have a sitter next to him at all times, may have to consider a psychiatric consultation on this patient. Continue the alcohol withdrawal protocol. We'll continue to follow. Time with Patient: Less than 30
[2017-09-07] MEDS: MULTIVITAMINS, THERA 1 EACH TAB PO SCH (11:24)
[2017-09-07] MEDS: THIAMINE 100 MG TAB PO SCH ×2 (11:24→15:44)
[2017-09-07] MEDS: IPRATROPIUM-ALBUTEROL 3 ML NEB INHALATION PRN (11:36)
[2017-09-07] MEDS ORDERED: THIAMINE 100 MG/ML 2 ML VIAL IM STA (13:23)
[2017-09-07] MEDS ORDERED: LORazepam 2 MG/ML INJ IV PRN ×3 (13:23)
--- NOTE | 2017-09-07 14:28 | P.PN ---
Progress Note - Text Progress Note Date: 09/07/17 Attempted to do a psychiatric consultation but the patient was too sleepy and needed to be aroused with every question and was becoming irritable. Will return tomorrow to perform evaluation, would continue patient on suicide precautions with a sitter.
[2017-09-08] MEDS: SODIUM CHLORIDE 0.9% 1,000 ML IV SCH ×2 (05:59→09:34)
[2017-09-08 07:22] LABS: Basophils % (A) 1 %; Eosinophils # (A) 0.2 k/uL (0-0.7); Eosinophils % (A) 5 %; HCT 34.7 % (39.0-53.0); HGB 10.8 gm/dL (13.0-17.5); Hypochromasia Slight; Lymphocytes # (A) 1.1 k/uL (1.0-4.8); Lymphocytes % (A) 22 %; MCH 30.8 pg (25.0-35.0); MCHC 31.1 g/dL (31.0-37.0); MCV 99.2 fL (80.0-100.0); Mean Platelet Volume 7.2; Monocytes # (A) 0.2 k/uL (0-1.0); Monocytes % (A) 5 %; Neutrophils # (A) 3.2 k/uL (1.3-7.7); Neutrophils % (A) 65 %; Platelet Count 200 k/uL (150-450); RDW 13.8 % (11.5-15.5); WBC 4.9 k/uL (3.8-10.6)
--- NOTE | 2017-09-08 07:28 | XR ---
EXAMINATION TYPE: XR chest 1V portable DATE OF EXAM: 09/08/2017 HISTORY: Overdose. REFERENCE: Previous study dated 09/07/2017. FINDINGS: There is continuing left basilar airspace disease. There is colonic interposition on the ri ght. The heart is not enlarged. I cannot exclude a small effusion on the left. IMPRESSION: 1. CONTINUING LEFT BASILAR AIRSPACE DISEASE. 2. I CANNOT EXCLUDE A SMALL, LEFT EFFUSION.
[2017-09-08 07:36] LABS: ALT 16 U/L (21-72); AST 17 U/L (17-59); Albumin 2.7 g/dL (3.5-5.0); Alkaline Phosphatase 65 U/L (38-126); Anion Gap 5 mmol/L; Blood Urea Nitrogen 7 mg/dL (9-20); Calcium 8.7 mg/dL (8.4-10.2); Carbon Dioxide 28 mmol/L (22-30); Chloride 106 mmol/L (98-107); Glucose 82 mg/dL (74-99); Magnesium 1.5 mg/dL (1.6-2.3); Phosphorus 3.4 mg/dL (2.5-4.5); Sodium 139 mmol/L (137-145); Total Bilirubin 0.8 mg/dL (0.2-1.3); Total Protein 5.3 g/dL (6.3-8.2)
[2017-09-08] MEDS: SYMBICORT 160-4.5 MCG INHALER INHALATION SCH ×2 (07:51→18:50)
[2017-09-08 08:27] VITALS: RESP 18
[2017-09-08] MEDS: PIPERACILLIN-TAZOBACTAM 3.375 GM in DEXTROSE/WATER 1 50ML.BAG IVPB SCH ×2 (09:25→17:10)
[2017-09-08] MEDS: PANTOPRAZOLE 40 MG TABLET PO SCH (09:26)
[2017-09-08] MEDS: HEPARIN SODIUM,PORCINE 5,000 UNIT/ML 1 ML VIAL SQ SCH ×2 (09:32→21:57)
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
--- NOTE | 2017-09-08 12:51 | P.PN ---
Subjective Progress Note Date: 09/08/17 Principal diagnosis: Altered mental status secondary to drug and alcohol overdose suspect Seroquel. This is a 51-year-old gentleman who follows with Dr. Perez as his primary care physician. He has a history of hypertension, GI bleed, bariatric surgery, gastroesophageal reflux disease, anxiety/depression, bipolar disorder, posttraumatic stress syndrome disorder, chronic and ongoing tobacco dependence, chronic obstructive pulmonary disease chronic and ongoing daily alcohol use, IV drug user with heroin. History of cocaine marijuana methamphetamine use. He was brought into the emergency room earlier this morning secondary to a drug and alcohol overdose. Suspect Seroquel. Urine drug screen is positive for tricyclic antidepressants and benzodiazepines. Serum alcohol level 98. Arterial blood gases reveal a pO2 of 125, pH 7.32, pCO2 44 and 20% FiO2. He is seen in consultation in the emergency room. He is quite obtunded. He is responding to sternal rub only. Currently protecting his airway. He is 98-99% O2 saturations on 2 L/m per nasal cannula. He is slightly tachycardic. Hemodynamically stable. He was given 2 L of fluid resuscitation. Chest x-ray shows subsegmental changes in the left lung base secondary to atelectasis. Patient was seen again today on 09/07/2017, I saw him yesterday prior to admission was he was in the emergency room, and overnight the patient was admitted to the ICU. Patient is doing much better today, he is more awake, responsive, seems to be oriented to place and to time. Patient knows that he overdosed on Seroquel. Drifts on his own to sleep easily if left alone. But overall significant improvement compared to yesterday. And he does not seem to be in any form of distress. His CBC was noted to be relatively normal hemoglobin is 11.1. His electrolytes and renal profile are normal. Chest x- ray however is showing a left lower lobe atelectasis or possibly infiltrate, hence I recommended starting the patient on Zosyn empirically. Patient was reevaluated today on 09/08/2017, he is more awake, feeling much better, denies any specific complaints. Labs were reviewed had a relatively normal CBC and normal basic metabolic profile. Objective - Vital Signs Vital signs: Vital Signs Temp 97.0 F L 09/08/17 07:00 Pulse 95 09/08/17 07:00 Resp 18 09/08/17 07:00 BP 123/80 09/08/17 07:00 Pulse Ox 95 09/08/17 07:54 Intake & Output 09/07/17 09/08/17 09/08/17 18:59 06:59 18:59 Intake Total 510 1775 Output Total 150 400 Balance 360 1375 Intake: IV 450 1725 Sodium Chloride 0.9% 1, 450 1725 000 ml @ 150 mls/hr IV . Q6H40M ROLA Rx#:[id number] Intake, IV Titration 50 Amount Piperacillin-Tazobactam 3 50 .375 gm In Dextrose/Water 1 50ml.bag @ 12.5 mls/hr IVPB Q8HR ROLA Rx#: [id number] Oral 60 Output: Urine 150 400 Other: Voiding Method Indwelling Catheter Urinal Indwelling Catheter - Exam GENERAL EXAM: Awake alert, in no distress. HEAD: Normocephalic. EYES: Sluggish reaction of pupils, equal size. NOSE: Clear with pink turbinates. THROAT: No erythema or exudates. NECK: No masses, no JVD. CHEST: No chest wall deformity. LUNGS: Equal air entry with no crackles, wheeze, rhonchi or dullness. CVS: S1 and S2 normal with no audible murmur, regular rhythm. ABDOMEN: No hepatosplenomegaly, normal bowel sounds, no guarding or rigidity. SPINE: No scoliosis or deformity SKIN: No rashes CENTRAL NERVOUS SYSTEM: No focal deficits EXTREMITIES: There is no peripheral edema. No clubbing, no cyanosis. Peripheral pulses are intact. - Labs CBC & Chem 7: 09/08/17 06:56 09/08/17 06:56 Labs: Abnormal Lab Results - Last 24 Hours (Table) 09/08/17 09/08/17 Range/Units 06:56 06:56 RBC 3.50 L (4.30-5.90) m/uL Hgb 10.8 L (13.0-17.5) gm/dL Hct 34.7 L (39.0-53.0) % BUN 7 L (9-20) mg/dL Creatinine 0.56 L (0.66-1.25) mg/dL Magnesium 1.5 L (1.6-2.3) mg/dL ALT 16 L (21-72) U/L Total Protein 5.3 L (6.3-8.2) g/dL Albumin 2.7 L (3.5-5.0) g/dL Assessment and Plan Assessment: #1 Altered mental status secondary to drug and alcohol overdose. Suspect Seroquel. Alcohol level 98. On admission #2 History of drug abuse including heroin, cocaine, methamphetamines, cannabinoid. #3 Alcoholism. #4 Bipolar disorder. #5 Post rheumatic stress disorder. #6 Chronic and ongoing tobacco dependence. #7 Chronic obstructive pulmonary disease. #8 Hypertension. #9 Gastroesophageal reflux disease. #10 left lower lobe pneumonia, suspect aspiration, chest x-ray today continues to show left lower lobe airspace disease. Recommendation: Continue present supportive care measures, continue Zosyn, patient will need to be seen by psychiatry on consultation. We'll continue to follow. Time with Patient: Less than 30
--- NOTE | 2017-09-08 12:54 | P.DS ---
Providers Date of admission: 09/06/17 12:51 Expected date of discharge: 09/08/17 Attending physician: Eliza Suresh Consults: 09/06/17 12:51 Consult Physician Stat Consulting Provider: Cornelio Lopez Consult Reason/Comments: Drug overdose Do you want consulting provider notified?: Yes Consult Physician Stat Consulting Provider: Angela Lyles Consult Reason/Comments: Drug overdose, history of suicidal attempts Do you want consulting provider notified?: Yes Primary care physician: Lolita Perez Hospital Course: 1. Acute toxic encephalopathy secondary to drug overdose and alcohol toxicity. Drug overdose with Seroquel and alcohol. Patient was admitted to the intensive care unit and was hydrated aggressively. His mentation improved significantly. He is currently awake and alert. 2. Alcohol intoxication: EtOH level of 98. Patient has history of daily alcohol use. Continue thiamine and multivitamin. No evidence of alcohol withdrawal 3. Unresponsiveon presentation secondary to drug overdose and alcohol.t 5. History of essential hypertension 6. Nicotine dependence 7. History of PTSD 8. Possible pneumonia noted on chest x-ray, will finished antibiotic course with Augmentin Patient was seen and evaluated by psychiatry. He was accepted to the psych unit for further evaluation. He will be transferred today for further psychiatric treatment. Plan - Discharge Summary Discharge Rx Participant: Yes New Discharge Prescriptions: New Lisinopril [Prinivil] 10 mg PO DAILY #30 tab Pantoprazole [Protonix] 40 mg PO AC-BRKFST #30 tablet. Continue Budesonide/Formoterol Fumarate [Symbicort 160-4.5 Mcg Inhaler] 1 puff INHALATION RT-BID Albuterol Inhaler [Ventolin Hfa Inhaler] 1 - 2 puff INHALATION RT-Q6H PRN PRN Reason: Shortness Of Breath busPIRone HCL 15 mg PO TID #90 tablet DULoxetine HCL [Cymbalta] 30 mg PO DAILY #30 capsule. lamoTRIgine [LaMICtal] 200 mg PO DAILY #30 tablet Thiamine [Vitamin B-1] 100 mg PO BID@1200,1700 #60 tab Multivitamins, Thera [Multivitamin (formulary)] 1 tab PO DAILY@1200 Discontinued Lisinopril [Zestril] 20 mg PO BID Omeprazole 20 mg PO BID Dicyclomine [Bentyl] 20 mg PO QID Mometasone/Formoterol [Dulera 100 Mcg/5 Mcg Inhaler] 2 puff INHALATION RT-BID OLANZapine [ZyPREXA] 10 mg PO HS #30 tab chlordiazePOXIDE HCl [Librium] 25 mg PO QID #10 capsule QUEtiapine FUMARATE [SEROquel] 3,000 mg PO ONCE Discharge Medication List Budesonide/Formoterol Fumarate [Symbicort 160-4.5 Mcg Inhaler] 1 puff INHALATION RT-BID 04/18/17 [History] Albuterol Inhaler [Ventolin Hfa Inhaler] 1 - 2 puff INHALATION RT-Q6H PRN [History] DULoxetine HCL [Cymbalta] 30 mg PO DAILY #30 capsule. 07/10/17 [Rx] Thiamine [Vitamin B-1] 100 mg PO BID@1200,1700 #60 tab 07/10/17 [Rx] busPIRone HCL 15 mg PO TID #90 tablet 07/10/17 [Rx] lamoTRIgine [LaMICtal] 200 mg PO DAILY #30 tablet 07/10/17 [Rx] Multivitamins, Thera [Multivitamin (formulary)] 1 tab PO DAILY@1200 09/03/17 [ History] Lisinopril [Prinivil] 10 mg PO DAILY #30 tab 09/08/17 [Rx] Pantoprazole [Protonix] 40 mg PO AC-BRKFST #30 tablet. 09/08/17 [Rx] Follow up Appointment(s)/Referral(s): Lolita Perez DO [Primary Care Provider] - 1-2 days Discharge Disposition: TRANSFER TO PSYCH HOSP/UNIT
[2017-09-08] MEDS: THIAMINE 100 MG TAB PO SCH ×2 (15:18→18:37)
[2017-09-08] MEDS: MULTIVITAMINS, THERA 1 EACH TAB PO SCH (15:18)
[2017-09-08 16:10] VITALS: BP 150/101; PULSE 75; TEMP 97.4
== END 2017-09-08 22:15 | DRG 917 ==
LOC: EC 09:39 → 6ICU 12:51 → 5MS5E 09-07 12:52
PROVIDERS: ADMIT Internal Medicine; ATTEND Internal Medicine
DX: T43.591A Poisoning by other antipsychotics and neuroleptics, accidental (unintentional), initial encounter (principal); G92 Toxic encephalopathy; J18.9 Pneumonia, unspecified organism; F10.229 Alcohol dependence with intoxication, unspecified; F17.200 Nicotine dependence, unspecified, uncomplicated; F20.9 Schizophrenia, unspecified; F43.10 Post-traumatic stress disorder, unspecified; I10 Essential (primary) hypertension; J44.9 Chronic obstructive pulmonary disease, unspecified; K21.9 Gastro-esophageal reflux disease without esophagitis; T51.0X1A Toxic effect of ethanol, accidental (unintentional), initial encounter; F11.10 Opioid abuse, uncomplicated; F41.9 Anxiety disorder, unspecified; F32.9 Major depressive disorder, single episode, unspecified; Z79.51 Long term (current) use of inhaled steroids; Z79.899 Other long term (current) drug therapy; Z82.49 Family history of ischemic heart disease and other diseases of the circulatory system; Y90.4 Blood alcohol level of 80-99 mg/100 ml; Y92.9 Unspecified place or not applicable
CPT/HCPCS: 36415; 36600; 71045; 80048; 80053; 80306; 80320; 82150; 82805; 83036; 83520; 83690; 83735; 84100; 84484; 85025; 85610; 93005; 94640; 94760; 96360; 96361; 96365; 96366; 96372; 96375; 99284; 99291

== ENCOUNTER 2017-09-08 21:47 | Inpatient (IN) | payer MEDICARE ==
[2017-09-08] MEDS ORDERED: ALBUTEROL INHALER 60 PUFF/8 GM INHALER INHALATION PRN (22:48)
[2017-09-08] MEDS ORDERED: MAG HYDROX/AL HYDROX/SIMETH 30 ML CUP PO PRN (22:52)
[2017-09-08] MEDS ORDERED: MAGNESIUM HYDROXIDE 2,400 MG/10 ML CUP PO PRN (22:52)
[2017-09-08] MEDS ORDERED: ACETAMINOPHEN TAB 325 MG TAB PO PRN (22:52)
[2017-09-08] MEDS ORDERED: LORazepam 0.5 MG TAB PO PRN (22:57)
[2017-09-09] MEDS: LISINOPRIL 10 MG TAB PO SCH (08:42)
[2017-09-09] MEDS: PANTOPRAZOLE 40 MG TABLET PO SCH (08:43)
[2017-09-09] MEDS: busPIRone HCl 5 MG TAB PO SCH ×3 (08:43→21:25)
[2017-09-09] MEDS: lamoTRIgine 25 MG TAB PO SCH (08:43)
[2017-09-09] MEDS: DULoxetine HCL 30 MG CAPSULE.DR PO SCH (08:43)
[2017-09-09] MEDS: SYMBICORT 160-4.5 MCG INHALER INHALATION SCH ×2 (09:57→19:11)
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
[2017-09-09] MEDS: MULTIVITAMINS, THERA 1 EACH TAB PO SCH (11:58)
[2017-09-09] MEDS: THIAMINE 100 MG TAB PO SCH ×2 (11:58→16:06)
[2017-09-10 06:41] VITALS: TEMP 98.1
[2017-09-10] MEDS: lamoTRIgine 25 MG TAB PO SCH (08:56)
[2017-09-10] MEDS: busPIRone HCl 5 MG TAB PO SCH ×3 (08:56→21:28)
[2017-09-10] MEDS: DULoxetine HCL 30 MG CAPSULE.DR PO SCH (08:57)
[2017-09-10] MEDS: LISINOPRIL 10 MG TAB PO SCH (08:57)
[2017-09-10] MEDS: PANTOPRAZOLE 40 MG TABLET PO SCH (09:10)
[2017-09-10] MEDS: AMOXIC-POT CLAV 500-125 MG 1 EACH TAB PO SCH ×2 (09:11→20:53)
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
[2017-09-10] MEDS: SYMBICORT 160-4.5 MCG INHALER INHALATION SCH ×2 (11:21→22:40)
[2017-09-10] MEDS: THIAMINE 100 MG TAB PO SCH ×2 (12:20→16:15)
[2017-09-10] MEDS: MULTIVITAMINS, THERA 1 EACH TAB PO SCH (12:20)
--- NOTE | 2017-09-10 12:54 | P.PN ---
Progress Note - Text Progress Note Date: 09/10/17 Interval History: Patient is a 51-year-old male who was seen today after having taken an overdose of Seroquel and using alcohol and was transferred from the medical floor. Patient states that he is feeling much less depressed after his mother had paid his rent to his landlord and he has not lost his living situation. Patient reports that he is tolerating the medications without side effects. Patient and I had discussed having someone go to his house to remove the Seroquel and he states that his former girlfriend will not answer her phone and he has no one else he can call to go into his home and remove the Seroquel. Patient states that he plans to destroy or get rid of this once he is discharged. Patient states that he is not having any suicidal ideation and states that he slept well last evening. Patient states that he was attending AA meetings as an outpatient. Mental Status: Appearance/Attitude: Patient was dressed in a hospital gown, makes good eye contact and was cooperative. Behavior: Patient did not display any psychomotor agitation or retardation. Speech/Language: Patient's speech was spontaneous of normal volume and rhythm and he was coherent. Thought Process: Patient was goal-directed there is no evidence of loose associations or flight of ideas. Thought Content: Patient denied any auditory or visual hallucinations and no paranoid or delusional ideation was elicited. Patient states that he is no longer feeling depressed and states that he feels better as his landlord has been paid and he will not lose his apartment. Patient states he is sleeping and eating well. Suicidal/Homicidal Ideation: Patient denied any current suicidal or homicidal ideation Sensorium/Cognition: Patient is alert and oriented to person, place, time and his recent and remote memory are grossly intact. Mood/Affect: Patient's mood is euthymic and his affect is appropriate Insight/Judgment: Patient's insight and judgment are fair. Assessment: Patient reports that since his mother's paid his rent and he continues to have a place to live he is not feeling as overwhelmed or hopeless. He states that he will follow-up with outpatient care after discharge this time and reports that he is no longer feeling suicidal and not having any symptoms of depression. Patient reports no side effects from the restart of his medications. Patient states he has been attending groups and activities. He plans to find a payee company and arrange to have this done as an outpatient and take his mother off from being the payee set his bills are paid electronically. He is hoping that they will also give him his money on a weekly basis rather than one lump sum. Patient reports he has no one who can go to his home and remove the Seroquel from there but states that he will destroy the medication on his return. Plan: [Patient will continue on Lamictal 25 mg daily and this will need to be titrated back to his prior dose as an outpatient, we'll increase his BuSpar back to 15 mg 3 times a day and continue Cymbalta 30 mg every morning. Patient and I discussed possible discharge tomorrow and he was agreeable with this plan. Outpatient follow-up will need to be arranged as patient is unsure if he can return to [facility] clinic. Patient denies discussed the need for him to remain sober and attend AA meetings as well is be compliant with medications and outpatient appointments on discharge.
[2017-09-11] MEDS: busPIRone HCl 5 MG TAB PO SCH (08:59)
[2017-09-11] MEDS: AMOXIC-POT CLAV 500-125 MG 1 EACH TAB PO SCH (08:59)
[2017-09-11] MEDS: PANTOPRAZOLE 40 MG TABLET PO SCH (08:59)
[2017-09-11] MEDS: DULoxetine HCL 30 MG CAPSULE.DR PO SCH (08:59)
[2017-09-11] MEDS: LISINOPRIL 10 MG TAB PO SCH (08:59)
[2017-09-11] MEDS: lamoTRIgine 25 MG TAB PO SCH (08:59)
[2017-09-11] MEDS: SYMBICORT 160-4.5 MCG INHALER INHALATION SCH (09:22)
[2017-09-11 09:29] LABS: Basophils % (A) 0 %; Eosinophils # (A) 0.2 k/uL (0-0.7); Eosinophils % (A) 3 %; HCT 41.9 % (39.0-53.0); HGB 12.7 gm/dL (13.0-17.5); Hypochromasia Moderate; Lymphocytes # (A) 1.5 k/uL (1.0-4.8); Lymphocytes % (A) 27 %; MCH 30.8 pg (25.0-35.0); MCHC 30.3 g/dL (31.0-37.0); MCV 101.5 fL (80.0-100.0); Macrocytosis Slight; Mean Platelet Volume 7.9; Monocytes # (A) 0.7 k/uL (0-1.0); Monocytes % (A) 12 %; Neutrophils # (A) 3.1 k/uL (1.3-7.7); Neutrophils % (A) 56 %; Platelet Count 318 k/uL (150-450); RBC 4.13 m/uL (4.30-5.90); WBC 5.6 k/uL (3.8-10.6)
[2017-09-11 12:05] VITALS: BP 132/86; PULSE 80; RESP 16
[2017-09-11] MEDS: THIAMINE 100 MG TAB PO SCH (12:38)
[2017-09-11] MEDS: MULTIVITAMINS, THERA 1 EACH TAB PO SCH (12:38)
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
== END 2017-09-11 13:56 | disposition home or self-care (01) | DRG 885 ==
LOC: 3MHU 22:44
PROVIDERS: ADMIT Psychiatry & Neurology Psychiatry; ATTEND Psychiatry & Neurology Psychiatry
DX: F31.4 Bipolar disorder, current episode depressed, severe, without psychotic features (principal); G92 Toxic encephalopathy; J18.9 Pneumonia, unspecified organism; F10.239 Alcohol dependence with withdrawal, unspecified; L03.113 Cellulitis of right upper limb; E83.42 Hypomagnesemia; Z62.810 Personal history of physical and sexual abuse in childhood; M50.30 Other cervical disc degeneration, unspecified cervical region; M51.36 Other intervertebral disc degeneration, lumbar region; T43.592A Poisoning by other antipsychotics and neuroleptics, intentional self-harm, initial encounter; K21.9 Gastro-esophageal reflux disease without esophagitis; I10 Essential (primary) hypertension; F43.10 Post-traumatic stress disorder, unspecified; F17.200 Nicotine dependence, unspecified, uncomplicated; Y90.4 Blood alcohol level of 80-99 mg/100 ml; B95.61 Methicillin susceptible Staphylococcus aureus infection as the cause of diseases classified elsewhere; Z91.5 Personal history of self-harm; Z79.51 Long term (current) use of inhaled steroids; Z98.84 Bariatric surgery status; Z82.49 Family history of ischemic heart disease and other diseases of the circulatory system; Z87.442 Personal history of urinary calculi; Z91.14 Patient's other noncompliance with medication regimen; Z79.899 Other long term (current) drug therapy
CPT/HCPCS: 83735; 85025; 87070; 87077; 87186; 87205; 94640

== ENCOUNTER 2017-09-28 09:32 | Inpatient (IN) | payer MEDICARE ==
[2017-09-28 10:07] LABS: Amphetamine Screen,Urine Not Detected (NotDetected); Barbiturate Screen,Urine Not Detected (NotDetected); Benzodiazepines Screen,Urine Not Detected (NotDetected); Cocaine Screen,Urine Not Detected (NotDetected); Methadone Screen, Urine Not Detected (NotDetected); Opiate Screen,Urine Not Detected (NotDetected); Oxycodone Screen, Urine Not Detected (NotDetected); Phencyclidine Screen,Urine Not Detected (NotDetected); Tricyclic Antidepressant,Urine Not Detected (NotDetected); Urn Cannabinoid Scrn Not Detected (NotDetected)
--- NOTE | 2017-09-28 10:55 | ED ---
General Adult HPI - General Chief complaint: Psychiatric Symptoms Stated complaint: Mental Health Time Seen by Provider: 09/28/17 09:34 Source: patient, EMS, RN notes reviewed Mode of arrival: EMS Limitations: no limitations - History of Present Illness Initial comments: 51-year-old male presenting with alcohol intoxication and suicidal ideation. Patient states he has been drinking excessively and attempt to kill himself. He does have history of bipolar, he has had multiple psychiatric admissions in the past. He denies any other ingestion. Denies any physical self-harm. - Related Data Home Medications Medication Instructions Recorded Confirmed Budesonide/Formoterol Fumarate 1 puff INHALATION RT-BID 04/18/17 09/28/17 [Symbicort 160-4.5 Mcg Inhaler] Albuterol Inhaler [Ventolin Hfa 1 - 2 puff INHALATION RT-Q6H PRN 04/21/17 Inhaler] Multivitamins, Thera [Multivitamin 1 tab PO DAILY@1200 09/03/17 09/28/17 (formulary)] Previous Rx's Medication Instructions Recorded Thiamine [Vitamin B-1] 100 mg PO BID@1200,1700 #60 tab 07/10/17 Lisinopril [Prinivil] 10 mg PO DAILY #30 tab 09/08/17 Pantoprazole [Protonix] 40 mg PO AC-BRKFST #30 tablet. 09/08/17 DULoxetine HCL [Cymbalta] 30 mg PO DAILY #14 capsule. 09/11/17 busPIRone HCL 15 mg PO TID #42 tablet 09/11/17 lamoTRIgine [LaMICtal] 25 mg PO DAILY #40 tab 09/11/17 Allergies Allergy/AdvReac Type Severity Reaction Status Date / Time No Known Allergies Allergy Verified 09/28/17 09:35 Review of Systems ROS Statement: Those systems with pertinent positive or pertinent negative responses have been documented in the HPI. ROS Other: All systems not noted in ROS Statement are negative. Past Medical History Past Medical History: GERD/Reflux, Hypertension, Musculoskeletal Disorder, Pneumonia Additional Past Medical History / Comment(s): GI Bleed, kidney stones History of Any Multi-Drug Resistant Organisms: None Reported Past Surgical History: Bariatric Surgery, Orthopedic Surgery Additional Past Surgical History / Comment(s): Left inner Forearm-metal plate Past Anesthesia/Blood Transfusion Reactions: No Reported Reaction Past Psychological History: Anxiety, Bipolar, Depression, PTSD Smoking Status: Current every day smoker Past Alcohol Use History: Daily, Heavy Past Drug Use History: Cocaine, Heroin, Marijuana, Methamphetamine - Past Family History Mother Family Medical History: Hypertension Additional Family Medical History / Comment(s): Lupus General Exam Limitations: no limitations General appearance: alert, appears intoxicated Head exam: Present: atraumatic, normocephalic Eye exam: Present: normal appearance, PERRL, EOMI Neck exam: Present: normal inspection. Absent: tenderness, meningismus Respiratory exam: Present: normal lung sounds bilaterally. Absent: respiratory distress Cardiovascular Exam: Present: regular rate, normal rhythm GI/Abdominal exam: Present: soft. Absent: distended, tenderness Extremities exam: Present: normal inspection, normal capillary refill. Absent: pedal edema Back exam: Present: normal inspection Neurological exam: Present: alert, oriented X3, CN II-XII intact. Absent: motor sensory deficit Psychiatric exam: Present: depressed, suicidal ideation Skin exam: Present: warm, dry, intact. Absent: cyanosis, diaphoretic Course Vital Signs 09/28/17 09/28/17 09:33 14:19 Temperature 98.2 F Pulse Rate 91 100 Respiratory 16 18 Rate Blood Pressure 145/93 101/65 O2 Sat by Pulse 98 98 Oximetry - Reevaluation(s) Reevaluation #1: 09/28/17 1700 Patient account bleeding sobriety, he will be evaluated by EPS for his suicidal ideation. Patient's care is signed out to Dr. Arthur. Medical Decision Making - Lab Data Lab Results 09/28/17 Range/Units 09:44 Urine Opiates Screen Not Detected (NotDetected) Ur Oxycodone Screen Not Detected (NotDetected) Urine Methadone Screen Not Detected (NotDetected) Ur Propoxyphene Screen Not Detected (NotDetected) Ur Barbiturates Screen Not Detected (NotDetected) U Tricyclic Antidepress Not Detected (NotDetected) Ur Phencyclidine Scrn Not Detected (NotDetected) Ur Amphetamines Screen Not Detected (NotDetected) U Methamphetamines Scrn Not Detected (NotDetected) U Benzodiazepines Scrn Not Detected (NotDetected) Urine Cocaine Screen Not Detected (NotDetected) U Marijuana (THC) Screen Not Detected (NotDetected) Disposition Referrals: None,Stated [Primary Care Provider] - 1-2 days
[2017-09-28] MEDS ORDERED: THIAMINE 100 MG TAB PO SCH (17:00)
[2017-09-28] MEDS ORDERED: LORazepam 1 MG TAB PO STA (17:24)
[2017-09-28] MEDS ORDERED: LORazepam 2 MG/ML INJ IV STA (17:31)
[2017-09-28] MEDS ORDERED: MAGNESIUM HYDROXIDE 2,400 MG/10 ML CUP PO PRN (22:10)
[2017-09-28] MEDS ORDERED: ACETAMINOPHEN TAB 325 MG TAB PO PRN (22:10)
[2017-09-28] MEDS ORDERED: MAG HYDROX/AL HYDROX/SIMETH 30 ML CUP PO PRN (22:10)
[2017-09-28] MEDS ORDERED: LORazepam 1 MG TAB PO PRN (22:16)
[2017-09-28 22:47] LABS: Appearance,Urine Clear (Clear); Bilirubin,Urine Negative (Negative); Blood,Urine Negative (Negative); Color,Urine Yellow; Glucose,Urine (UA) Negative (Negative); Ketones,Urine 1+ (Negative); Leukocyte Esterase,Urine Negative (Negative); Nitrite,Urine Negative (Negative); Protein,Urine Negative (Negative); Specific Gravity,Urine 1.004 (1.001-1.035); Urobilinogen,Urine <2.0 mg/dL (<2.0)
[2017-09-28] MEDS ORDERED: NALOXONE 0.4 MG/ML 1 ML VIAL IV PRN (23:12)
[2017-09-28 23:14] VITALS: BP 127/84; PULSE 109; RESP 18; TEMP 99.1
[2017-09-28] MEDS ORDERED: LISINOPRIL 10 MG TAB PO SCH (23:15)
[2017-09-28] MEDS ORDERED: DULoxetine HCL 30 MG CAPSULE.DR PO SCH (23:15)
[2017-09-28] MEDS ORDERED: lamoTRIgine 25 MG TAB PO SCH (23:15)
[2017-09-28] MEDS ORDERED: busPIRone HCl 5 MG TAB PO SCH (23:15)
[2017-09-28] MEDS ORDERED: BACITRACIN OINT 1 EACH PACKET TOPICAL SCH (23:15)
[2017-09-28] MEDS ORDERED: THIAMINE 100 MG/ML 2 ML VIAL IM STA (23:16)
[2017-09-28] MEDS ORDERED: ALBUTEROL INHALER 60 PUFF/8 GM INHALER INHALATION PRN (23:16)
[2017-09-28] MEDS ORDERED: LORazepam 2 MG/ML INJ IV PRN ×3 (23:16)
--- NOTE | 2017-09-28 23:32 | P.HPIM ---
History of Present Illness H&P Date: 09/28/17 Chief Complaint: Suicide ideation 51-year-old male presenting with alcohol intoxication and suicidal ideation. Patient states he has been drinking excessively over the last several days/ weeks in an attempt to kill himself. He does have history of bipolar disorder with multiple psychiatric admissions in the past. Patient has long history of alcoholism and he normally drinks 12 beers every day. He was sober up until June when he broke up with his girlfriend, started drinking back again afterwards. Last month he overdosed himself with Seroquel in an attempt to kill himself. Several days ago he smoked some crack with a friend. His only complaints are some shortness of breath and back pain. He denied having any fevers or chills. No cough. While he was examined by the nurses in the mental health unit he was found to have severe shaking, tachycardia and mild hypertension consistent with alcohol withdrawal symptoms. The last time he drank was this morning. Patient also had several sores in his back with yellow/purulent base. They are tender to touch. He was also found to have multiple black scars on his chest and abdomen and when asked about them he stated that when he tries to roll his cigarettes, and due to severe shakes the burning aleida from the cigarette falls onto his abdomen and chest. Review of Systems 12 point review of system was performed, negative except for HPI Past Medical History Past Medical History: GERD/Reflux, Hypertension, Musculoskeletal Disorder, Pneumonia Additional Past Medical History / Comment(s): GI Bleed, kidney stones History of Any Multi-Drug Resistant Organisms: None Reported Past Surgical History: Bariatric Surgery, Orthopedic Surgery Additional Past Surgical History / Comment(s): Left inner Forearm-metal plate Past Anesthesia/Blood Transfusion Reactions: No Reported Reaction Past Psychological History: Anxiety, Bipolar, Depression, PTSD Smoking Status: Current every day smoker Past Alcohol Use History: Daily, Heavy Past Drug Use History: Cocaine, Heroin, Marijuana, Methamphetamine - Past Family History Mother Family Medical History: Hypertension Additional Family Medical History / Comment(s): Lupus Medications and Allergies Home Medications Medication Instructions Recorded Confirmed Type Budesonide/Formoterol Fumarate 1 puff INHALATION RT-BID 04/18/17 09/28/17 History [Symbicort 160-4.5 Mcg Inhaler] Albuterol Inhaler [Ventolin Hfa 1 - 2 puff INHALATION RT-Q6H PRN 04/21/17 History Inhaler] Thiamine [Vitamin B-1] 100 mg PO BID@1200,1700 #60 tab 07/10/17 09/28/17 Rx Multivitamins, Thera [Multivitamin 1 tab PO DAILY@1200 09/03/17 09/28/17 History (formulary)] Lisinopril [Prinivil] 10 mg PO DAILY #30 tab 09/08/17 09/28/17 Rx Pantoprazole [Protonix] 40 mg PO AC-BRKFST #30 tablet. 09/08/17 09/28/17 Rx DULoxetine HCL [Cymbalta] 30 mg PO DAILY #14 capsule. 09/11/17 09/28/17 Rx busPIRone HCL 15 mg PO TID #42 tablet 09/11/17 09/28/17 Rx lamoTRIgine [LaMICtal] 25 mg PO DAILY #40 tab 09/11/17 09/28/17 Rx Allergies Allergy/AdvReac Type Severity Reaction Status Date / Time No Known Allergies Allergy Verified 09/28/17 09:35 Physical Exam Vitals: Vital Signs Temp Pulse Pulse Resp BP BP Pulse Ox 09/28/17 23:12 99.1 F 109 H 18 127/84 09/28/17 22:25 99.9 F H 102 H 15 126/78 96 09/28/17 14:19 100 18 101/65 98 09/28/17 09:33 98.2 F 91 16 145/93 98 Intake and Output 09/28/17 09/28/17 09/29/17 14:59 22:59 06:59 Output Total 200 Balance -200 Output: Urine 200 Other: Weight 70.307 kg 65.9 kg Patient Weight 09/29/17 06:59 Weight 65.9 kg Constitutional: No acute distress, conversant Eyes:Anicteric sclerae, moist conjunctiva, no lid-lag, PERRLA, ENMT: Oropharynx clear, no erythema, exudates Neck: Supple, FROM, no masses, or JVD, No carotid bruits, No thyromegaly Lungs: Clear to auscultation, Clear to percussion, Normal respiratory effort, no accessory muscle use Cardiovascular: Tachycardic, regular, No murmurs, gallops, or rubs, No peripheral edema Abdominal: Soft, Nontender, no guarding, rebound or rigidity, Normoactive bowel sounds, No hepatomegaly, No splenomegaly, No palpable mass Skin: Multiple ulcers on the back with yellow/purulent base. Multiple scars on the chest and abdomen. Skin with normal temperature, tone, texture, turgor, no induration, No subcutaneous nodules, No rash, lesions, No ulcers Extremities: No digital cyanosis, No clubbing, Pedal pulses intact and symmetrical, Radial pulses intact and symmetrical, No calf tenderness Psychiatric: Alert and oriented to person, place and time, flat affect Neuro: Severe bilateral tremors, Muscles Strength 5/5 in all 4 extremities, Sensation to light touch grossly present throughout, Cranial nerves II-XII grossly intact, no focal sensory deficits Results Labs: Abnormal Lab Results - Last 24 Hours (Table) 09/28/17 Range/Units 22:27 Urine Ketones 1+ H (Negative) Assessment and Plan Plan: #1 Severe alcohol withdrawal: Admit to selective care Alcohol withdrawal protocol with Ativan IV, currently CIWA score is 19 Thiamine, folic acid and multivitamins #2 Suicide attempt/severe depression/bipolar disorder: Sitter one to one while in the floor Consult psychiatry once medically stable #3 COPD: Continue Symbicort and albuterol when necessary #4 Essential hypertension Continue lisinopril
[2017-09-28 23:49] LABS: Basophils # (A) 0.1 k/uL (0-0.2); Basophils % (A) 1 %; Eosinophils # (A) 0.1 k/uL (0-0.7); Eosinophils % (A) 1 %; HCT 39.7 % (39.0-53.0); HGB 12.6 gm/dL (13.0-17.5); Lymphocytes # (A) 1.5 k/uL (1.0-4.8); Lymphocytes % (A) 26 %; MCH 29.9 pg (25.0-35.0); MCHC 31.7 g/dL (31.0-37.0); Mean Platelet Volume 6.6; Monocytes # (A) 0.5 k/uL (0-1.0); Monocytes % (A) 8 %; Neutrophils # (A) 3.5 k/uL (1.3-7.7); Neutrophils % (A) 62 %; Platelet Count 301 k/uL (150-450); RBC 4.21 m/uL (4.30-5.90); RDW 15.5 % (11.5-15.5); WBC 5.6 k/uL (3.8-10.6)
[2017-09-28 23:51] LABS: MCV 94.3 fL (80.0-100.0)
[2017-09-28 23:58] LABS: ALT 59 U/L (21-72); AST 154 U/L (17-59); Alkaline Phosphatase 71 U/L (38-126); Anion Gap 11 mmol/L; Blood Urea Nitrogen 13 mg/dL (9-20); Calcium 9.4 mg/dL (8.4-10.2); Carbon Dioxide 26 mmol/L (22-30); Chloride 95 mmol/L (98-107); Glucose 93 mg/dL (74-99); Magnesium 1.5 mg/dL (1.6-2.3); Phosphorus 3.5 mg/dL (2.5-4.5); Potassium 4.4 mmol/L (3.5-5.1); Sodium 132 mmol/L (137-145); Total Bilirubin 2.7 mg/dL (0.2-1.3); Total Protein 6.9 g/dL (6.3-8.2)
[2017-09-29] MEDS ORDERED: LORazepam 1 MG TAB PO STA (00:05)
[2017-09-29] MEDS ORDERED: PANTOPRAZOLE 40 MG TABLET PO SCH (07:30)
[2017-09-29] MEDS ORDERED: SYMBICORT 160-4.5 MCG INHALER INHALATION SCH (08:00)
[2017-09-29] MEDS ORDERED: LORazepam 1 MG TAB PO SCH (09:00)
[2017-09-29] MEDS ORDERED: MULTIVITAMINS, THERA 1 EACH TAB PO SCH (12:00)
[2017-09-29] MEDS ORDERED: THIAMINE 100 MG TAB PO SCH (12:00)
--- NOTE | 2017-10-03 12:20 | P.DS ---
Providers Date of admission: 09/28/17 22:03 Expected date of discharge: 09/29/17 Attending physician: Angela Lyles MD Consults: 09/28/17 22:10 Consult Physician Routine Consulting Provider: Dory Moncada Consult Reason/Comments: H &P medical management Do you want consulting provider notified?: Yes Primary care physician: Stated None Hospital Course: Patient is a 51-year-old male who came to the emergency room after he called 911 due to his trying to drink himself to . Patient had been discharged from the hospital on September 11 and states that he began drinking and has been drinking since he left the hospital. Patient has not been compliant with his medications and reported that he wants to . Patient was not seen by myself but was admitted to the inpatient psychiatric unit and shortly after his arrival when being seen by the medical csr was found to have a CIWA score of 19 and was felt that he needed transfer to a medical floor to continue his detox. Patient was then transferred to a medical floor and discharged from the psychiatric unit. Patient Condition at Discharge: Serious Plan - Discharge Summary New Discharge Prescriptions: No Action Budesonide/Formoterol Fumarate [Symbicort 160-4.5 Mcg Inhaler] 1 puff INHALATION RT-BID Albuterol Inhaler [Ventolin Hfa Inhaler] 1 - 2 puff INHALATION RT-Q6H PRN PRN Reason: Shortness Of Breath Thiamine [Vitamin B-1] 100 mg PO BID@1200,1700 #60 tab Multivitamins, Thera [Multivitamin (formulary)] 1 tab PO DAILY@1200 Lisinopril [Prinivil] 10 mg PO DAILY #30 tab Pantoprazole [Protonix] 40 mg PO AC-BRKFST #30 tablet. lamoTRIgine [LaMICtal] 25 mg PO DAILY #40 tab busPIRone HCL 15 mg PO TID #42 tablet DULoxetine HCL [Cymbalta] 30 mg PO DAILY #14 capsule. Acetaminophen Tab [Tylenol] 650 mg PO Q6HR PRN tab PRN Reason: Mild Pain Or Fever > 100.5 Albuterol Nebulized [Ventolin Nebulized] 2.5 mg INHALATION RT-QID PRN nebu PRN Reason: Shortness Of Breath Or Wheezing Folic Acid 1 mg PO DAILY@1200 tab Discharge Medication List Budesonide/Formoterol Fumarate [Symbicort 160-4.5 Mcg Inhaler] 1 puff INHALATION RT-BID 04/18/17 [History] Albuterol Inhaler [Ventolin Hfa Inhaler] 1 - 2 puff INHALATION RT-Q6H PRN [History] Thiamine [Vitamin B-1] 100 mg PO BID@1200,1700 #60 tab 07/10/17 [Rx] Multivitamins, Thera [Multivitamin (formulary)] 1 tab PO DAILY@1200 09/03/17 [ History] Lisinopril [Prinivil] 10 mg PO DAILY #30 tab 09/08/17 [Rx] Pantoprazole [Protonix] 40 mg PO AC-BRKFST #30 tablet. 09/08/17 [Rx] DULoxetine HCL [Cymbalta] 30 mg PO DAILY #14 capsule. 09/11/17 [Rx] busPIRone HCL 15 mg PO TID #42 tablet 09/11/17 [Rx] lamoTRIgine [LaMICtal] 25 mg PO DAILY #40 tab 09/11/17 [Rx] Acetaminophen Tab [Tylenol] 650 mg PO Q6HR PRN tab 10/02/17 [Rx] Albuterol Nebulized [Ventolin Nebulized] 2.5 mg INHALATION RT-QID PRN nebu [Rx] Folic Acid 1 mg PO DAILY@1200 tab 10/02/17 [Rx] Follow up Appointment(s)/Referral(s): None,Stated [Primary Care Provider] - 1-2 days Discharge Disposition: TRANSFER TO [facility]
== END 2017-09-29 01:20 | disposition short-term general hospital (02) | DRG 897 ==
LOC: EC 09:32 → 3MHU 22:03
PROVIDERS: ADMIT Psychiatry & Neurology Psychiatry; ATTEND Psychiatry & Neurology Psychiatry
DX: F10.239 Alcohol dependence with withdrawal, unspecified (principal); R45.851 Suicidal ideations; F10.229 Alcohol dependence with intoxication, unspecified; F17.200 Nicotine dependence, unspecified, uncomplicated; F31.9 Bipolar disorder, unspecified; F43.10 Post-traumatic stress disorder, unspecified; I10 Essential (primary) hypertension; J44.9 Chronic obstructive pulmonary disease, unspecified; K21.9 Gastro-esophageal reflux disease without esophagitis; F41.9 Anxiety disorder, unspecified; Z79.51 Long term (current) use of inhaled steroids; Z79.899 Other long term (current) drug therapy; Z87.442 Personal history of urinary calculi; Z87.01 Personal history of pneumonia (recurrent); Z91.5 Personal history of self-harm; Z82.49 Family history of ischemic heart disease and other diseases of the circulatory system
CPT/HCPCS: 80053; 80306; 81003; 82075; 83735; 84100; 85025; 96374; 99285

== ENCOUNTER 2017-09-29 01:31 | Inpatient (IN) | payer MEDICARE ==
[2017-09-29] MEDS ORDERED: LORazepam 2 MG/ML INJ IV PRN ×2 (03:37)
[2017-09-29] MEDS ORDERED: NALOXONE 0.4 MG/ML 1 ML VIAL IV PRN (06:21)
[2017-09-29] MEDS ORDERED: ACETAMINOPHEN TAB 325 MG TAB PO PRN (06:21)
[2017-09-29] MEDS: SODIUM CHLORIDE 0.9% 1,000 ML IV SCH ×2 (06:47→16:33)
[2017-09-29] MEDS: PANTOPRAZOLE 40 MG TABLET PO SCH (06:47)
[2017-09-29] MEDS ORDERED: MAGNESIUM SULFATE-D5W PMX 1 GM in DEXTROSE/WATER 1 100ML.BAG IVPB SCH (07:00)
[2017-09-29] MEDS: MAGNESIUM SULFATE-D5W PMX 1 GM in DEXTROSE/WATER 1 100ML.BAG IVPB SCH ×2 (08:45→10:20)
[2017-09-29] MEDS: busPIRone HCl 5 MG TAB PO SCH ×3 (08:48→21:25)
[2017-09-29] MEDS: DULoxetine HCL 30 MG CAPSULE.DR PO SCH (08:48)
[2017-09-29] MEDS: lamoTRIgine 25 MG TAB PO SCH (08:49)
[2017-09-29] MEDS: LISINOPRIL 10 MG TAB PO SCH (08:49)
[2017-09-29] MEDS: SYMBICORT 160-4.5 MCG INHALER INHALATION SCH ×2 (09:12→21:39)
[2017-09-29] MEDS: ALBUTEROL NEBULIZED 2.5 MG/3 ML INHALATION PRN ×2 (09:12→21:38)
[2017-09-29] MEDS: MULTIVITAMINS, THERA 1 EACH TAB PO SCH (12:05)
[2017-09-29] MEDS: FOLIC ACID 1 MG TAB PO SCH (12:05)
[2017-09-29] MEDS: THIAMINE 100 MG TAB PO SCH ×2 (12:05→16:33)
[2017-09-29 12:13] VITALS: BMI 22.8
--- NOTE | 2017-09-29 16:18 | P.PN ---
Subjective Progress Note Date: 09/29/17 Principal diagnosis: patient seen and examined in follow up for alcohol withdrawal , suicide ideation patient seen and examined, more calm now , he feels less shaky, denies any chest pain, trouble breathing. He denies any further suicidal ideation, he wants to get his life straight H e reported some pressure ulcers on his back that is currently bothering him, he relates those to laying on the ground wasted from drinking for prolonged time. Objective - Vital Signs Vital signs: Vital Signs Temp 97.8 F 09/29/17 11:47 Pulse 83 09/29/17 11:47 Resp 16 09/29/17 11:47 BP 143/81 09/29/17 11:47 Pulse Ox 83 L 09/29/17 11:47 Intake & Output 09/28/17 09/29/17 09/29/17 18:59 06:59 18:59 Intake Total 240 237 Output Total 0 Balance 240 237 Weight 68 kg 68 kg Intake: Oral 240 237 Output: Urine 0 Stool 0 Other: Voiding Method Urinal # Voids 1 0 # Bowel Movements 0 - Exam Constitutional: vital signs stable, Not in acute distress, pleasant, conversant Lungs: Clear to auscultation bilaterally, clear to percussion, normal respiratory effort no use of accessory muscles Cardiovascular: Regular rate and rhythm, no murmurs, no gallops, no rubs, no peripheral edema Gastrointestinal: Soft, no tenderness to palpation, no palpable hepatosplenomegally, bowel sounds positive Extremities: No digital cyanosis or clubbing, peripheral pulses palpable and equal over bilateral radial arteries and dorsalis pedis artery, no calf muscle tenderness Psych: Alert, oriented to place, person , depressed affect, poor judgment multiple small pressure ulcers stage I, II, and III on his buttock over sacrum ( stage I and II) and over his thoracic spine (stage III) . Assessment and Plan (1) Alcohol withdrawal delirium Narrative/Plan: withdrawal precautions Benzos per CIWA thiamine multivitamines IVF hydration Current Visit: Yes Status: Acute Code(s): F10.231 - ALCOHOL DEPENDENCE WITH WITHDRAWAL DELIRIUM SNOMED Code(s): 7939904 (2) Suicidal ideation Narrative/Plan: suicide precautions Current Visit: Yes Status: Acute Code(s): R45.851 - SUICIDAL IDEATIONS SNOMED Code(s): 0213279 (3) Pressure ulcer Narrative/Plan: on his back , patient relates those to laying on the ground wasted from drinking for long time without moving wound care cushioned dressing Current Visit: Yes Status: Acute Code(s): L89.90 - PRESSURE ULCER OF UNSPECIFIED SITE, UNSPECIFIED STAGE SNOMED Code(s): 414474098 (4) Depression Narrative/Plan: psychiatry following Current Visit: Yes Status: Acute Code(s): F32.9 - MAJOR DEPRESSIVE DISORDER , SINGLE EPISODE, UNSPECIFIED SNOMED Code(s): 97086630 (5) Hypertension Narrative/Plan: continue home medications Current Visit: Yes Status: Acute Code(s): I10 - ESSENTIAL (PRIMARY) HYPERTENSION SNOMED Code(s): 16957900 (6) Hyperbilirubinemia Narrative/Plan: due to alcohol abuse continue to monitor Current Visit: Yes Status: Acute Code(s): E80.6 - OTHER DISORDERS OF BILIRUBIN METABOLISM SNOMED Code(s): 54797144 (7) DVT prophylaxis Narrative/Plan: heparin sc tid Current Visit: Yes Status: Acute Code(s): SWL6901 - SNOMED Code(s): 048020086
[2017-09-29] MEDS: LORazepam 2 MG/ML INJ IV PRN (21:25)
[2017-09-29] MEDS: HEPARIN SODIUM,PORCINE 5,000 UNIT/ML 1 ML VIAL SQ SCH (21:25)
[2017-09-30] MEDS: LORazepam 2 MG/ML INJ IV PRN (00:09)
[2017-09-30] MEDS: SODIUM CHLORIDE 0.9% 1,000 ML IV SCH ×2 (04:24→11:49)
[2017-09-30] MEDS: PANTOPRAZOLE 40 MG TABLET PO SCH (06:13)
[2017-09-30 07:04] LABS: Basophils % (A) 1 %; Eosinophils # (A) 0.1 k/uL (0-0.7); Eosinophils % (A) 3 %; HCT 35.1 % (39.0-53.0); HGB 11.5 gm/dL (13.0-17.5); Lymphocytes # (A) 1.5 k/uL (1.0-4.8); Lymphocytes % (A) 28 %; MCH 31.3 pg (25.0-35.0); MCHC 32.7 g/dL (31.0-37.0); MCV 95.7 fL (80.0-100.0); Mean Platelet Volume 7.4; Monocytes # (A) 0.3 k/uL (0-1.0); Monocytes % (A) 6 %; Neutrophils # (A) 3.2 k/uL (1.3-7.7); Neutrophils % (A) 60 %; Platelet Count 223 k/uL (150-450); RBC 3.66 m/uL (4.30-5.90); RDW 15.5 % (11.5-15.5); WBC 5.4 k/uL (3.8-10.6)
[2017-09-30 07:23] LABS: ALT 44 U/L (21-72); AST 86 U/L (17-59); Albumin 3.1 g/dL (3.5-5.0); Alkaline Phosphatase 61 U/L (38-126); Anion Gap 6 mmol/L; Blood Urea Nitrogen 17 mg/dL (9-20); Calcium 8.7 mg/dL (8.4-10.2); Carbon Dioxide 29 mmol/L (22-30); Chloride 99 mmol/L (98-107); Glucose 87 mg/dL (74-99); Magnesium 1.6 mg/dL (1.6-2.3); Phosphorus 4.4 mg/dL (2.5-4.5); Potassium 3.7 mmol/L (3.5-5.1); Sodium 134 mmol/L (137-145); Total Bilirubin 1.2 mg/dL (0.2-1.3); Total Protein 5.6 g/dL (6.3-8.2)
[2017-09-30] MEDS: SYMBICORT 160-4.5 MCG INHALER INHALATION SCH ×2 (08:16→21:12)
[2017-09-30] MEDS: ALBUTEROL NEBULIZED 2.5 MG/3 ML INHALATION PRN ×2 (08:16→21:12)
[2017-09-30] MEDS: HEPARIN SODIUM,PORCINE 5,000 UNIT/ML 1 ML VIAL SQ SCH ×3 (08:58→23:10)
[2017-09-30] MEDS: busPIRone HCl 5 MG TAB PO SCH ×3 (08:58→20:24)
[2017-09-30] MEDS: lamoTRIgine 25 MG TAB PO SCH (08:59)
[2017-09-30] MEDS: DULoxetine HCL 30 MG CAPSULE.DR PO SCH (08:59)
[2017-09-30] MEDS: LISINOPRIL 10 MG TAB PO SCH (08:59)
[2017-09-30] MEDS: THIAMINE 100 MG TAB PO SCH ×2 (11:49→17:20)
[2017-09-30] MEDS: FOLIC ACID 1 MG TAB PO SCH (11:49)
[2017-09-30] MEDS: MULTIVITAMINS, THERA 1 EACH TAB PO SCH (11:49)
--- NOTE | 2017-09-30 13:12 | P.PN ---
Subjective Progress Note Date: 09/30/17 Principal diagnosis: patient seen and examined in follow up for alcohol withdrawal , suicide ideation patient seen and examined, patient doing well now, denies any suicidal ideation , withdrawal symptoms are minimal. Tolerating by mouth intake denies any chest pain or trouble breathing. Denies any nausea or vomiting. Denies any fevers or chills Patient last drink was 48 hours ago, continues to be at risk of withdrawal Objective - Vital Signs Vital signs: Vital Signs Temp 98.6 F 09/30/17 11:35 Pulse 100 09/30/17 11:35 Resp 18 09/30/17 11:35 BP 122/68 09/30/17 11:35 Pulse Ox 98 09/30/17 11:35 Intake & Output 09/29/17 09/30/17 09/30/17 17:59 06:59 18:59 Intake Total Output Total Balance Weight Intake: Oral Output: Urine Stool Other: # Voids # Bowel Movements - Exam Constitutional: vital signs stable, Not in acute distress, pleasant, conversant Lungs: Clear to auscultation bilaterally, clear to percussion, normal respiratory effort no use of accessory muscles Cardiovascular: Regular rate and rhythm, no murmurs, no gallops, no rubs, no peripheral edema Gastrointestinal: Soft, no tenderness to palpation, no palpable hepatosplenomegally, bowel sounds positive Extremities: No digital cyanosis or clubbing, peripheral pulses palpable and equal over bilateral radial arteries and dorsalis pedis artery, no calf muscle tenderness Psych: Alert, oriented to place, person , depressed affect, poor judgment - Labs CBC & Chem 7: 09/30/17 06:21 09/30/17 06:21 Labs: Abnormal Lab Results - Last 24 Hours (Table) 09/30/17 09/30/17 Range/Units 06:21 06:21 RBC 3.66 L (4.30-5.90) m/uL Hgb 11.5 L (13.0-17.5) gm/dL Hct 35.1 L (39.0-53.0) % Sodium 134 L (137-145) mmol/L Creatinine 0.60 L (0.66-1.25) mg/dL AST 86 H (17-59) U/L Total Protein 5.6 L (6.3-8.2) g/dL Albumin 3.1 L (3.5-5.0) g/dL Assessment and Plan (1) Alcohol withdrawal delirium Narrative/Plan: withdrawal precautions Benzos per CIWA , currently scoring low thiamine multivitamines IVF hydration Encourage by mouth intake Patient continues to be at risk of withdrawal for the first 4 days after his last drink which was 48 hours ago Current Visit: Yes Status: Acute Code(s): F10.231 - ALCOHOL DEPENDENCE WITH WITHDRAWAL DELIRIUM SNOMED Code(s): 9718204 (2) Suicidal ideation Narrative/Plan: suicide precautions Current Visit: Yes Status: Acute Code(s): R45.851 - SUICIDAL IDEATIONS SNOMED Code(s): 5203696 (3) Pressure ulcer Narrative/Plan: on his back , patient relates those to laying on the ground wasted from drinking for long time without moving wound care cushioned dressing Current Visit: Yes Status: Acute Code(s): L89.90 - PRESSURE ULCER OF UNSPECIFIED SITE, UNSPECIFIED STAGE SNOMED Code(s): 365812914 (4) Depression Narrative/Plan: psychiatry following Current Visit: Yes Status: Acute Code(s): F32.9 - MAJOR DEPRESSIVE DISORDER , SINGLE EPISODE, UNSPECIFIED SNOMED Code(s): 32373933 (5) Hypertension Narrative/Plan: Currently controlled continue home medications Current Visit: Yes Status: Acute Code(s): I10 - ESSENTIAL (PRIMARY) HYPERTENSION SNOMED Code(s): 51191427 (6) Hyperbilirubinemia Narrative/Plan: due to alcohol abuse continue to monitor Current Visit: Yes Status: Acute Code(s): E80.6 - OTHER DISORDERS OF BILIRUBIN METABOLISM SNOMED Code(s): 65285123 (7) DVT prophylaxis Narrative/Plan: heparin sc tid Current Visit: Yes Status: Acute Code(s): PNN5635 - SNOMED Code(s): 885231533 Plan: Once withdrawal risk is minimal, patient might go back to the mental health unit pending psychiatry recommendations
[2017-10-01] MEDS: SODIUM CHLORIDE 0.9% 1,000 ML IV SCH ×3 (05:49→15:11)
[2017-10-01] MEDS: PANTOPRAZOLE 40 MG TABLET PO SCH (05:51)
[2017-10-01 06:17] LABS: Basophils % (A) 1 %; Eosinophils # (A) 0.1 k/uL (0-0.7); Eosinophils % (A) 3 %; HCT 32.8 % (39.0-53.0); HGB 10.6 gm/dL (13.0-17.5); Lymphocytes # (A) 1.5 k/uL (1.0-4.8); Lymphocytes % (A) 31 %; MCHC 32.3 g/dL (31.0-37.0); Mean Platelet Volume 7.4; Monocytes # (A) 0.2 k/uL (0-1.0); Monocytes % (A) 5 %; Neutrophils # (A) 2.7 k/uL (1.3-7.7); Neutrophils % (A) 57 %; Platelet Count 185 k/uL (150-450); RBC 3.42 m/uL (4.30-5.90); RDW 15.4 % (11.5-15.5); WBC 4.8 k/uL (3.8-10.6)
[2017-10-01 06:42] LABS: ALT 53 U/L (21-72); AST 70 U/L (17-59); Albumin 2.8 g/dL (3.5-5.0); Alkaline Phosphatase 55 U/L (38-126); Anion Gap 5 mmol/L; Blood Urea Nitrogen 9 mg/dL (9-20); Calcium 8.4 mg/dL (8.4-10.2); Carbon Dioxide 29 mmol/L (22-30); Chloride 101 mmol/L (98-107); Glucose 86 mg/dL (74-99); Magnesium 1.3 mg/dL (1.6-2.3); Potassium 3.8 mmol/L (3.5-5.1); Sodium 135 mmol/L (137-145); Total Bilirubin 0.9 mg/dL (0.2-1.3); Total Protein 5.3 g/dL (6.3-8.2)
[2017-10-01] MEDS: DULoxetine HCL 30 MG CAPSULE.DR PO SCH (07:44)
[2017-10-01] MEDS: busPIRone HCl 5 MG TAB PO SCH ×3 (07:44→21:21)
[2017-10-01] MEDS: HEPARIN SODIUM,PORCINE 5,000 UNIT/ML 1 ML VIAL SQ SCH ×3 (07:44→23:41)
[2017-10-01] MEDS: MULTIVITAMINS, THERA 1 EACH TAB PO SCH (07:45)
[2017-10-01] MEDS: LISINOPRIL 10 MG TAB PO SCH (07:45)
[2017-10-01] MEDS: FOLIC ACID 1 MG TAB PO SCH (07:45)
[2017-10-01] MEDS: lamoTRIgine 25 MG TAB PO SCH (07:45)
[2017-10-01] MEDS: THIAMINE 100 MG TAB PO SCH ×2 (07:46→17:03)
[2017-10-01] MEDS: MAGNESIUM SULFATE-D5W PMX 1 GM in DEXTROSE/WATER 1 100ML.BAG IVPB SCH ×2 (07:50→12:19)
[2017-10-01 07:55] VITALS: RESP 18
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
[2017-10-01] MEDS: SYMBICORT 160-4.5 MCG INHALER INHALATION SCH ×2 (08:46→19:29)
[2017-10-01] MEDS: ALBUTEROL NEBULIZED 2.5 MG/3 ML INHALATION PRN (08:46)
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
[2017-10-01] MEDS: LORazepam 2 MG/ML INJ IV PRN (21:21)
[2017-10-01 21:44] VITALS: TEMP 98.7
[2017-10-02] MEDS: SODIUM CHLORIDE 0.9% 1,000 ML IV SCH ×2 (06:24→15:14)
[2017-10-02] MEDS: LISINOPRIL 10 MG TAB PO SCH (08:09)
[2017-10-02] MEDS: HEPARIN SODIUM,PORCINE 5,000 UNIT/ML 1 ML VIAL SQ SCH ×2 (08:09→16:22)
[2017-10-02] MEDS: PANTOPRAZOLE 40 MG TABLET PO SCH (08:09)
[2017-10-02] MEDS: lamoTRIgine 25 MG TAB PO SCH (08:10)
[2017-10-02] MEDS: busPIRone HCl 5 MG TAB PO SCH ×2 (08:10→16:22)
[2017-10-02] MEDS: DULoxetine HCL 30 MG CAPSULE.DR PO SCH (08:10)
[2017-10-02 08:32] LABS: Basophils % (A) 0 %; Eosinophils # (A) 0.2 k/uL (0-0.7); Eosinophils % (A) 3 %; HCT 34.9 % (39.0-53.0); HGB 10.8 gm/dL (13.0-17.5); Hypochromasia Slight; Lymphocytes # (A) 1.4 k/uL (1.0-4.8); Lymphocytes % (A) 27 %; MCH 30.7 pg (25.0-35.0); MCHC 30.9 g/dL (31.0-37.0); MCV 99.4 fL (80.0-100.0); Macrocytosis Slight; Mean Platelet Volume 7.7; Monocytes # (A) 0.3 k/uL (0-1.0); Monocytes % (A) 5 %; Neutrophils # (A) 3.1 k/uL (1.3-7.7); Neutrophils % (A) 61 %; Platelet Count 185 k/uL (150-450); RBC 3.51 m/uL (4.30-5.90); RDW 15.3 % (11.5-15.5); WBC 5.1 k/uL (3.8-10.6)
[2017-10-02] MEDS: SYMBICORT 160-4.5 MCG INHALER INHALATION SCH (08:52)
[2017-10-02 08:54] VITALS: BP 136/83; PULSE 85
[2017-10-02 08:59] LABS: Anion Gap 7 mmol/L; Blood Urea Nitrogen 9 mg/dL (9-20); Calcium 8.8 mg/dL (8.4-10.2); Carbon Dioxide 26 mmol/L (22-30); Chloride 102 mmol/L (98-107); Glucose 85 mg/dL (74-99); Magnesium 1.5 mg/dL (1.6-2.3); Sodium 135 mmol/L (137-145)
[2017-10-02] MEDS: MAGNESIUM SULFATE-D5W PMX 1 GM in DEXTROSE/WATER 1 100ML.BAG IVPB SCH ×2 (10:05→11:15)
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
[2017-10-02] MEDS: FOLIC ACID 1 MG TAB PO SCH (11:17)
[2017-10-02] MEDS: MULTIVITAMINS, THERA 1 EACH TAB PO SCH (11:17)
[2017-10-02] MEDS: THIAMINE 100 MG TAB PO SCH (11:17)
== END 2017-10-02 16:35 | DRG 896 ==
LOC: 6SEL 01:31 → 5MS5E 10-01 13:28
PROVIDERS: ADMIT Internal Medicine; ATTEND Internal Medicine
DX: F10.231 Alcohol dependence with withdrawal delirium (principal); L89.303 Pressure ulcer of unspecified buttock, stage 3; L89.152 Pressure ulcer of sacral region, stage 2; L89.103 Pressure ulcer of unspecified part of back, stage 3; R45.851 Suicidal ideations; R17 Unspecified jaundice; E83.42 Hypomagnesemia; F31.9 Bipolar disorder, unspecified; I10 Essential (primary) hypertension; D64.9 Anemia, unspecified; K29.20 Alcoholic gastritis without bleeding; K21.9 Gastro-esophageal reflux disease without esophagitis; M50.30 Other cervical disc degeneration, unspecified cervical region; M51.36 Other intervertebral disc degeneration, lumbar region; T42.6X6A Underdosing of other antiepileptic and sedative-hypnotic drugs, initial encounter; Z79.899 Other long term (current) drug therapy; Z98.84 Bariatric surgery status; Z83.79 Family history of other diseases of the digestive system
CPT/HCPCS: 80048; 80053; 83735; 84100; 85025; 94640

== ENCOUNTER 2017-10-02 16:11 | Inpatient (IN) | payer MEDICARE ==
[2017-10-02] MEDS ORDERED: MAGNESIUM HYDROXIDE 2,400 MG/10 ML CUP PO PRN (17:19)
[2017-10-02] MEDS ORDERED: MAG HYDROX/AL HYDROX/SIMETH 30 ML CUP PO PRN (17:19)
[2017-10-02] MEDS ORDERED: ALBUTEROL NEBULIZED 2.5 MG/3 ML INHALATION PRN (17:21)
[2017-10-02] MEDS: lamoTRIgine 25 MG TAB PO SCH (17:35)
[2017-10-02] MEDS: busPIRone HCl 5 MG TAB PO SCH (21:12)
[2017-10-02] MEDS: SYMBICORT 160-4.5 MCG INHALER INHALATION SCH (21:26)
[2017-10-02] MEDS: ALBUTEROL INHALER 60 PUFF/8 GM INHALER INHALATION PRN (21:26)
[2017-10-03 00:20] VITALS: BMI 24.0
[2017-10-03] MEDS: DULoxetine HCL 30 MG CAPSULE.DR PO SCH (08:41)
[2017-10-03] MEDS: LORazepam 1 MG TAB PO PRN (08:41)
[2017-10-03] MEDS: busPIRone HCl 5 MG TAB PO SCH ×3 (08:41→21:34)
[2017-10-03] MEDS: LISINOPRIL 10 MG TAB PO SCH (08:41)
[2017-10-03] MEDS: lamoTRIgine 25 MG TAB PO SCH (08:41)
[2017-10-03] MEDS: PANTOPRAZOLE 40 MG TABLET PO SCH (08:42)
[2017-10-03] MEDS: NICOTINE 14MG/24HR PATCH TRANSDERM SCH (08:44)
[2017-10-03] MEDS: SYMBICORT 160-4.5 MCG INHALER INHALATION SCH ×2 (09:03→21:43)
[2017-10-03 11:09] LABS: Basophils % (A) 1 %; Eosinophils # (A) 0.1 k/uL (0-0.7); Eosinophils % (A) 2 %; HCT 35.7 % (39.0-53.0); HGB 11.5 gm/dL (13.0-17.5); Lymphocytes % (A) 18 %; MCH 31.6 pg (25.0-35.0); MCHC 32.2 g/dL (31.0-37.0); MCV 98.2 fL (80.0-100.0); Macrocytosis Slight; Mean Platelet Volume 7.7; Monocytes # (A) 0.3 k/uL (0-1.0); Monocytes % (A) 5 %; Neutrophils % (A) 71 %; Platelet Count 240 k/uL (150-450); RBC 3.64 m/uL (4.30-5.90); RDW 15.4 % (11.5-15.5); WBC 5.7 k/uL (3.8-10.6)
[2017-10-03 11:34] LABS: ALT 60 U/L (21-72); AST 69 U/L (17-59); Albumin 3.6 g/dL (3.5-5.0); Alkaline Phosphatase 53 U/L (38-126); Anion Gap 9 mmol/L; Blood Urea Nitrogen 11 mg/dL (9-20); Calcium 9.6 mg/dL (8.4-10.2); Carbon Dioxide 27 mmol/L (22-30); Chloride 100 mmol/L (98-107); Glucose 63 mg/dL (74-99); Sodium 136 mmol/L (137-145); Total Bilirubin 0.5 mg/dL (0.2-1.3); Total Protein 6.3 g/dL (6.3-8.2)
[2017-10-03] MEDS: MULTIVITAMINS, THERA 1 EACH TAB PO SCH (12:15)
[2017-10-03] MEDS: FOLIC ACID 1 MG TAB PO SCH (12:15)
[2017-10-03] MEDS: THIAMINE 100 MG TAB PO SCH ×2 (12:15→17:38)
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
--- NOTE | 2017-10-03 16:26 | P.MDCNMH ---
History of Present Illness H&P Date: 10/03/17 Chief Complaint: Medical management 51-year-old male with past medical history of depression, alcohol abuse, and hypertension. Patient is being seen now in the mental health unit upon request from psychiatrist for medical management. Patient has presented to the hospital around a week ago for suicidal ideation however he was found to be going and severe alcohol withdrawals with pending DTs for which she was admitted to the [facility] he spent about 4 days in the [facility] being managed and monitored for alcohol withdrawal once he was stabilized he was transferred back to the psych unit. Psychiatry evaluated him on the [facility] and deemed him appropriate for admission for mental health unit for further management of his suicidal ideation and depression. At this point patient is not expressing any physical concerns however he for the first time reported that he had unprotected sex with multiple partners over the past couple months and is asking to be tested for HIV and hepatitis. Otherwise he does not have any other new medical concerns As patient reported earlier during his hospital stay he had chronic anemia and multiple endoscopies were performed in the past including EGDs and colonoscopies without finding any abnormalities. His hemoglobin during the hospital stay has been stable without evidence of ongoing GI bleeding. This most likely due to gastritis from his alcohol abuse. Patient was kept on PPI for that electrolyte has been monitored and corrected accordingly. Blood pressure remained controlled with low-dose of lisinopril 10 mg daily Review of Systems Constitutional: Patient denies fever, denies chills, denies night sweating, denies significant weight changes Eyes: Patient denies visual changes, denies eye pain ENT: Patient denies ear pain, denies rhinorrhea, denies sore throat Cardiovascular: Patient denies chest pain, denies exertional dyspnea, denies peripheral leg edema, denies orthopnea, denies paroxysmal nocturnal dyspnea Respiratory:Patient denies cough, denies wheezing, denies shortness of breath Gastrointestinal: Patient denies diarrhea, denies constipation, denies nausea , denies vomiting, denies abdominal pain Genitourinary: Patient denies dysuria, denies hematuria, denies changes in urinary habits, denies genital lesions Musculoskeletal: Patient denies muscle pain, denies joint pain Psychiatric: Reports anxiety, depression, suicidal ideation Endocrine: Patient denies heat intolerance, denies cold intolerance, denies excessive thirst, denies polyuria Neurological: Patient denies focal neurologic deficits, denies weakness, denies numbness, denies tingling Hem/Lymphatic: Patient denies bleeding tendency, denies bruising, denies swollen lymph glands Allergic/Immun: Patient denies recent allergic reactions Skin: Patient denies rashes, denies pruritis, reports pressure ulcers on the back Past Medical History Past Medical History: GERD/Reflux, Hypertension, Musculoskeletal Disorder, Pneumonia Additional Past Medical History / Comment(s): GI Bleed, kidney stones, degenerative disc disease in lower back and neck, kyphosis and scoliosis, ETOH abuse. History of Any Multi-Drug Resistant Organisms: None Reported Past Surgical History: Bariatric Surgery, Orthopedic Surgery Additional Past Surgical History / Comment(s): Left inner Forearm-metal plate Past Anesthesia/Blood Transfusion Reactions: No Reported Reaction Smoking Status: Current every day smoker Past Alcohol Use History: Heavy - Past Family History Mother Family Medical History: No Reported History, Hypertension Additional Family Medical History / Comment(s): Lupus Medications and Allergies Home Medications Medication Instructions Recorded Confirmed Type Budesonide/Formoterol Fumarate 1 puff INHALATION RT-BID 04/18/17 10/02/17 History [Symbicort 160-4.5 Mcg Inhaler] Albuterol Inhaler [Ventolin Hfa 1 - 2 puff INHALATION RT-Q6H PRN 04/21/17 History Inhaler] Thiamine [Vitamin B-1] 100 mg PO BID@1200,1700 #60 tab 07/10/17 10/02/17 Rx Multivitamins, Thera [Multivitamin 1 tab PO DAILY@1200 09/03/17 10/02/17 History (formulary)] Lisinopril [Prinivil] 10 mg PO DAILY #30 tab 09/08/17 10/02/17 Rx Pantoprazole [Protonix] 40 mg PO AC-BRKFST #30 tablet. 09/08/17 10/02/17 Rx DULoxetine HCL [Cymbalta] 30 mg PO DAILY #14 capsule. 09/11/17 10/02/17 Rx busPIRone HCL 15 mg PO TID #42 tablet 09/11/17 10/02/17 Rx lamoTRIgine [LaMICtal] 25 mg PO DAILY #40 tab 09/11/17 10/02/17 Rx Acetaminophen Tab [Tylenol] 650 mg PO Q6HR PRN tab 10/02/17 10/02/17 Rx Albuterol Nebulized [Ventolin 2.5 mg INHALATION RT-QID PRN nebu 10/02/17 Rx Nebulized] Folic Acid 1 mg PO DAILY@1200 tab 10/02/17 10/02/17 Rx Allergies Allergy/AdvReac Type Severity Reaction Status Date / Time No Known Allergies Allergy Verified 10/03/17 00:23 Physical Exam Vitals: Vital Signs Temp Pulse Pulse Resp BP BP Pulse Ox 10/03/17 08:40 110 H 18 130/91 10/03/17 06:50 98.5 F 77 16 127/86 10/02/17 16:30 96.7 F L 87 20 152/92 100 Intake and Output 10/03/17 10/03/17 10/03/17 06:59 14:59 22:59 Other: Weight 71.6 kg Constitutional: No acute distress, conversant, pleasant Eyes: Anicteric sclerae, moist conjunctiva, no lid-lag Pupils equal round reactive to light ENMT: NC/AT Oropharynx clear, no erythema, exudates Neck: Supple, FROM, no masses, or JVD No carotid bruits No thyromegaly Lungs: Clear to auscultation Clear to percussion Normal respiratory effort, no accessory muscle use Cardiovascular: Heart regular in rate and rhythm, No murmurs, gallops, or rubs No peripheral edema Abdominal: Soft Nontender, no guarding, rebound or rigidity Abdomen moving with respiration Normoactive bowel sounds No hepatomegaly, No splenomegaly No palpable mass No abdominal wall hernia noted Skin: Normal temperature, tone, texture, turgor No induration No subcutaneous nodules No rash, lesions Stage II pressure ulcers over the lower thoracic spine 2 x 2 centimeter , stage I pressure ulcers over the sacrum and the medial aspect of the right buttocks Extremities: No digital cyanosis No clubbing Pedal pulses intact and symmetrical Radial pulses intact and symmetrical No calf tenderness Psychiatric: Alert and oriented to person, place and time Depressed affect poor judgment Neuro Muscles Strength 5/5 in all 4 extremities Sensation to light touch grossly present throughout No focal sensory deficits Lymphatics: no palpable cervical or supraclavicular , or inguinal lymph nodes Cranial Nerve Examination - Cranial Nerves Cranial Nerve II- Optic: Intact Cranial Nerve III- Oculomotor: Intact Cranial Nerve IV- Trochlear: Intact Cranial Nerve V- Trigeminal: Intact Cranial Nerve - Abducens: Intact Cranial Nerve VII- Facial: Intact Cranial Nerve VIII- Auditory: Intact Cranial Nerve IX- Glossopharyngeal: Intact Cranial Nerve X- Vagus: Intact Cranial Nerve XI- Accessory: Intact Cranial Nerve XII- Hypoglossal: Intact Results CBC & Chem 7: 10/03/17 10:23 10/03/17 10:23 Labs: Abnormal Lab Results - Last 24 Hours (Table) 10/03/17 10/03/17 Range/Units 10:23 10:23 RBC 3.64 L (4.30-5.90) m/uL Hgb 11.5 L (13.0-17.5) gm/dL Hct 35.7 L (39.0-53.0) % Sodium 136 L (137-145) mmol/L Creatinine 0.56 L (0.66-1.25) mg/dL Glucose 63 L (74-99) mg/dL AST 69 H (17-59) U/L Assessment and Plan Assessment: 51-year-old male with past medical history of hypertension, alcohol abuse, depression, suicidal ideation. After patient being managed for severe alcohol withdrawal symptoms in the [facility] he was transferred to the psych unit for further management of his depression and suicidal ideation. Internal medicine service was consultative to carry on medical management while the patient and the mental health unit. Plan: #Suicidal ideation and depression Management per psych Suicide precautions #Hypertension Currently controlled Continue with lisinopril #Chronic anemia Patient claims excessive workup performed outpatient with colonoscopies and EGD never found any abnormalities This is most likely due to gastritis from alcohol abuse There is no evidence of ongoing GI bleeding Hemoglobin has been actually trending up and stable during this hospital stay #Stage II pressure ulcer over the lower thoracic spine due to prolonged immobility while wasted with alcohol, this is present on admission Continue with local wound care Padded dressings daily #DVT prophylaxis patient is ambulatory low risk at this point #Alcohol abuse Patient counseled to quit alcohol #Multiple encounters with unprotected sex Patient reports males and female partners, couple incidents of being recipient with male partners Check for HIV consent provided Check for hepatitis panel #Gastritis due to alcohol abuse Continue with PPI Thank you for allowing us to participate in the care of this patient. We will follow peripherally. Do not hesitate to contact us with questions. Someone can be reached from the [facility] hospitalist group at all hours of the day at [phone].
[2017-10-03 18:01] LABS: HIV AB P24 Non-Reactive (Non-Reactive); HIV P24 AG Non-Reactive (Non-Reactive)
[2017-10-04] MEDS: lamoTRIgine 25 MG TAB PO SCH (08:57)
[2017-10-04] MEDS: DULoxetine HCL 30 MG CAPSULE.DR PO SCH (08:57)
[2017-10-04] MEDS: LISINOPRIL 10 MG TAB PO SCH (08:57)
[2017-10-04] MEDS: LORazepam 1 MG TAB PO PRN (08:57)
[2017-10-04] MEDS: busPIRone HCl 5 MG TAB PO SCH ×3 (08:57→20:57)
[2017-10-04] MEDS: PANTOPRAZOLE 40 MG TABLET PO SCH (08:58)
[2017-10-04] MEDS: NICOTINE 14MG/24HR PATCH TRANSDERM SCH (08:58)
[2017-10-04] MEDS: SYMBICORT 160-4.5 MCG INHALER INHALATION SCH ×3 (09:31→21:18)
--- NOTE | 2017-10-04 11:38 | P.PN ---
Progress Note - Text Progress Note Date: 10/04/17 Interval History: Patient is a 51-year-old male who was seen today he reports that he is feeling better from a physical standpoint. He reports still feeling shaky and tremulous after breakfast the last 2 days and has been using Ativan at that time only. He reports that otherwise he is not having any withdrawal symptoms. Patient is not using a walker today and feels more steady on his feet. He reports that he slept about 5-6 hours last evening. Patient reports not feeling suicidal, still feeling slightly depressed but not feeling hopeless and more positive about the future. Patient states that he is looking into other rehab options as [facility] is not possible secondary to his insurance. Patient reports no side effects from the restart of his psychotropic medication. Mental Status: Appearance/Attitude: Patient is appropriately dressed, walking with a stooped posture and is cooperative Behavior: Patient does not exhibit any psychomotor agitation or retardation. Speech/Language: Patient's speech is spontaneous and of normal volume and rhythm and he is coherent Thought Process: Patient is goal-directed he is not tangential or circumstantial and no loose association or flight of ideas. Thought Content: Patient denies any auditory or visual hallucinations no delusions or paranoid ideation were elicited. Patient reports he slept about 5- 6 hours last evening and is feeling better from a physical standpoint. He reports no longer needing to use a walker as he is feeling steadier on his feet. Patient does report that after breakfast yesterday and today he did have some tremors and shaking and took some Ativan with good results otherwise he has not been requiring Ativan throughout the rest of the day or night. Patient reports that he is eating well and not reporting any nausea. Patient states that he is not feeling hopeless, has done a lot of thinking about his alcohol use, and states he is more positive about the future. Suicidal/Homicidal Ideation: Patient denies any current suicidal or homicidal ideation. Sensorium/Cognition: Patient is alert and oriented to person, place, and time and his recent and remote memory are grossly intact Mood/Affect: Patient's mood is slightly depressed and his affect is appropriate Insight/Judgment: Patient's insight and judgment are fair Assessment: Patient reports feeling better physically, his gait is more stable and no longer using a walker. Patient states that he still had some withdrawal symptoms yesterday morning and this morning with Ativan relieving them. Patient states that he is no longer feeling suicidal, or hopeless and is trying to be more positive about the future. Patient is now willing to attend inpatient rehab something that he has declined on his prior admissions. Patient reports no side effects from his medication and states his mood remains slightly depressed. Patient slept 5-6 hours last night and his appetite is good without any complaints of nausea. Patient has been attending groups and activities. Plan: Patient will continue on BuSpar 15 mg 3 times a day, Cymbalta 30 mg in the morning and Lamictal 25 mg daily to stabilize his mood and target his anxiety. Patient is agreeable to inpatient rehab and would like to have this set up prior to discharge, patient has had 3 admissions since June 2017 on related to overdoses with medication and alcohol. Patient has not been compliant with any follow-up after his discharge and has begun drinking immediately upon discharge and is unable to stop. Patient has required medical care prior to each admission due to his overdoses or alcohol withdrawal symptoms. Patient and I again discussed the long-term consequences of continued alcohol use and the need for sobriety from all drugs and alcohol. Patient is working with social work for inpatient rehab referrals, consider discharge tomorrow.
[2017-10-04] MEDS ORDERED: MULTIVITAMINS, THERA 1 EACH TAB ONE (12:00)
[2017-10-04] MEDS ORDERED: FOLIC ACID 1 MG TAB ONE (12:00)
[2017-10-04] MEDS ORDERED: THIAMINE 100 MG TAB ONE (12:00)
[2017-10-04] MEDS: ALBUTEROL INHALER 60 PUFF/8 GM INHALER INHALATION PRN ×2 (12:21→21:16)
[2017-10-04] MEDS: MULTIVITAMINS, THERA 1 EACH TAB PO SCH (13:30)
[2017-10-04] MEDS: THIAMINE 100 MG TAB PO SCH ×3 (13:30→16:31)
[2017-10-04] MEDS: FOLIC ACID 1 MG TAB PO SCH (13:30)
[2017-10-04] MEDS: ACETAMINOPHEN TAB 325 MG TAB PO PRN (20:58)
[2017-10-05] MEDS: LISINOPRIL 10 MG TAB PO SCH (08:59)
[2017-10-05] MEDS: lamoTRIgine 25 MG TAB PO SCH (08:59)
[2017-10-05] MEDS: busPIRone HCl 5 MG TAB PO SCH ×3 (08:59→22:18)
[2017-10-05] MEDS: DULoxetine HCL 30 MG CAPSULE.DR PO SCH (08:59)
[2017-10-05] MEDS: NICOTINE 14MG/24HR PATCH TRANSDERM SCH (09:00)
[2017-10-05] MEDS: LORazepam 1 MG TAB PO PRN (09:02)
[2017-10-05] MEDS: PANTOPRAZOLE 40 MG TABLET PO SCH (09:05)
[2017-10-05] MEDS: SYMBICORT 160-4.5 MCG INHALER INHALATION SCH ×2 (09:37→20:42)
[2017-10-05] MEDS: FOLIC ACID 1 MG TAB PO SCH (12:46)
[2017-10-05] MEDS: MULTIVITAMINS, THERA 1 EACH TAB PO SCH (12:47)
[2017-10-05] MEDS: THIAMINE 100 MG TAB PO SCH ×2 (12:47→18:50)
--- NOTE | 2017-10-05 14:09 | P.PN ---
Progress Note - Text Progress Note Date: 10/05/17 Interval History: Patient is a 51-year-old male who was seen today and who reports that he is not going to go to any inpatient rehab program on Sunday directly from the hospital because he needs to go home and take care of things. Patient states that he'll go later in the week but he will not go on discharge on Sunday. We have yet to hear from [facility] whether they will have a bed on Sunday or not. Patient states that he needs to go home and take care of his cat, washes clothes and has no one that he can call to asked to do these things or trust in his house because his wallet has $300 in it. Patient states that what is different this time is that he came by himself to the emergency room and had not taken an overdose. Patient reports that he is not having any suicidal ideation, not feeling depressed. Patient is sleeping and eating well on the unit. Patient reports no side effects from the medication. Mental Status: Appearance/Attitude: Patient is appropriately dressed, makes good eye contact and is cooperative Behavior: Patient does not exhibit any psychomotor agitation or retardation. Speech/Language: Speech is spontaneous and of normal volume and rhythm and he is coherent. Thought Process: Patient is goal-directed there is no evidence of loose association or flight of ideas and he is not tangential or circumstantial Thought Content: Patient denies auditory or visual hallucinations and no delusions or paranoid ideation were elicited. Patient states that he is interested in inpatient rehab but insists that he cannot go directly from the hospital to a program because he needs to go home to take care of his cat and his laundry and has no one he can ask to assist with these tasks. He states his landlord is currently feeling his cat but cannot do so for the next 2 or 3 weeks. Patient states he is eating and sleeping well. Suicidal/Homicidal Ideation: Patient denies any current suicidal or homicidal ideation. Sensorium/Cognition: Patient is alert and oriented to person, place, and time and his recent and remote memory are grossly intact. Mood/Affect: Patient's mood is irritable and his affect is appropriate Insight/Judgment: Patient's insight and judgment are fair Assessment: Patient reports he is no longer suicidal and not feeling depressed but is adamant that he is not going to go directly from the hospital to an inpatient rehab program as he needs to take care of his cat and do his laundry. He states that he needs several days to accomplish these tasks as he might have to give up his cat as he has no one that he can ask to take care of the cat. His landlord is currently feeding his cat. Patient states that he will follow-up with an inpatient rehab referral if it is at least a day or so after his discharge. Patient reports no side effects from medication. Plan: Patient will continue on BuSpar 15 mg 3 times a day, Cymbalta 30 mg in the morning and Lamictal 25 mg daily. We are waiting to hear from [facility] on Sunday whether they have a bed or not, I discussed with the patient that due to his having had 3 admissions in the last 3 months all secondary to alcohol use and his lack of follow-up after discharge that I would recommend he think of someone that can assist him with his concerns at home and go directly to [facility] if they have a bed on Sunday. Patient is in a disagreement with this and we will wait till Sunday to see what is available at [facility].
[2017-10-06 06:32] VITALS: RESP 16
[2017-10-06] MEDS: busPIRone HCl 5 MG TAB PO SCH ×3 (09:08→21:08)
[2017-10-06] MEDS: DULoxetine HCL 30 MG CAPSULE.DR PO SCH (09:08)
[2017-10-06] MEDS: LISINOPRIL 10 MG TAB PO SCH (09:08)
[2017-10-06] MEDS: PANTOPRAZOLE 40 MG TABLET PO SCH (09:09)
[2017-10-06] MEDS: ALBUTEROL INHALER 60 PUFF/8 GM INHALER INHALATION PRN ×2 (09:26→18:49)
[2017-10-06] MEDS: SYMBICORT 160-4.5 MCG INHALER INHALATION SCH ×2 (09:26→18:48)
[2017-10-06] MEDS: NICOTINE 14MG/24HR PATCH TRANSDERM SCH (09:51)
[2017-10-06] MEDS: lamoTRIgine 25 MG TAB PO SCH (09:56)
[2017-10-06] MEDS: MULTIVITAMINS, THERA 1 EACH TAB PO SCH (12:59)
[2017-10-06] MEDS: THIAMINE 100 MG TAB PO SCH ×2 (12:59→16:21)
[2017-10-06] MEDS: FOLIC ACID 1 MG TAB PO SCH (12:59)
--- NOTE | 2017-10-06 15:03 | P.PN ---
Progress Note - Text Progress Note Date: 10/06/17 Interval history: Patient seen in [facility] today for Dr. Lyles. He reports that his mood is doing pretty good and relays his motivation to get treatment for substance abuse. He states that if he is not able to go as an inpatient he will pursue outpatient program. He does not voice any adverse psychotropic medication side effects. Mental status exam: He is alert and cooperative with the interview. His speech is fluent, not rapid or pressured. Thought processes organized. His mood he relays is doing pretty good. He does not verbalize any thoughts of harm to self or others. No evidence of psychosis or agitation. Plan: Patient will be maintained on current psychotropic medication regimen. We 'll monitor for any medication side effects, continue to cover for through the weekend.
[2017-10-07] MEDS: PANTOPRAZOLE 40 MG TABLET PO SCH (07:52)
[2017-10-07] MEDS: lamoTRIgine 25 MG TAB PO SCH (08:03)
[2017-10-07] MEDS: busPIRone HCl 5 MG TAB PO SCH ×3 (08:03→20:56)
[2017-10-07] MEDS: DULoxetine HCL 30 MG CAPSULE.DR PO SCH (08:03)
[2017-10-07] MEDS: LISINOPRIL 10 MG TAB PO SCH (08:04)
[2017-10-07] MEDS: NICOTINE 14MG/24HR PATCH TRANSDERM SCH (08:05)
[2017-10-07] MEDS: ALBUTEROL INHALER 60 PUFF/8 GM INHALER INHALATION PRN ×3 (09:30→21:50)
[2017-10-07] MEDS: SYMBICORT 160-4.5 MCG INHALER INHALATION SCH ×2 (09:31→21:50)
[2017-10-07] MEDS: ACETAMINOPHEN TAB 325 MG TAB PO PRN (11:12)
[2017-10-07] MEDS: FOLIC ACID 1 MG TAB PO SCH (11:13)
[2017-10-07] MEDS: MULTIVITAMINS, THERA 1 EACH TAB PO SCH (11:39)
[2017-10-07] MEDS: THIAMINE 100 MG TAB PO SCH ×2 (11:39→16:50)
--- NOTE | 2017-10-07 16:08 | P.PN ---
Progress Note - Text Progress Note Date: 10/07/17 Interval history: Patient seen in [facility] today for Dr. Lyles. He reports that his mood is doing pretty good. He slept about 7 hours last night. He feels like he is eating enough. He is still interested in receiving substance abuse treatment. He does not voice any adverse psychotropic medication side effects. Mental status exam: He is alert and cooperative with the interview. His speech is fluent, not rapid or pressured. Thought processes organized. His mood appears improved. He denies any thoughts of harm to self or others. There is no evidence of psychosis or agitation. Plan: We'll maintain current psychotropic medications as current. Dr. Lyles to resume care this patient starting tomorrow.
[2017-10-08 07:13] VITALS: BP 124/78; PULSE 61; TEMP 98.1
[2017-10-08] MEDS: busPIRone HCl 5 MG TAB PO SCH (08:29)
[2017-10-08] MEDS: PANTOPRAZOLE 40 MG TABLET PO SCH (08:29)
[2017-10-08] MEDS: lamoTRIgine 25 MG TAB PO SCH (08:29)
[2017-10-08] MEDS: DULoxetine HCL 30 MG CAPSULE.DR PO SCH (08:29)
[2017-10-08] MEDS: LISINOPRIL 10 MG TAB PO SCH (08:29)
[2017-10-08] MEDS: NICOTINE 14MG/24HR PATCH TRANSDERM SCH (08:30)
[2017-10-08] MEDS: ALBUTEROL INHALER 60 PUFF/8 GM INHALER INHALATION PRN (09:33)
[2017-10-08] MEDS: SYMBICORT 160-4.5 MCG INHALER INHALATION SCH (09:34)
--- NOTE | 2017-10-08 11:31 | P.DS ---
Providers Date of admission: 10/02/17 16:30 Expected date of discharge: 10/08/17 Attending physician: Angela Lyles MD Consults: 10/02/17 17:19 Consult Physician Routine Consulting Provider: Dory Moncada Consult Reason/Comments: follow uo h & p Do you want consulting provider notified?: Yes Primary care physician: Stated None Hospital Course: Discharge Diagnosis: Alcohol use disorder, severe; bipolar type I disorder, current episode depressed Reason for Admission: Patient is a 51-year-old male who is being transferred back to the inpatient psychiatric unit. Patient had called EMS and presented to the emergency room on September 28, admitted to the psychiatric unit and when seen that evening by the medical claims specialist was transferred to the medical floor due to his withdrawal symptoms. Patient is known to me as he had been on the inpatient psychiatric unit from the to September 11 after an overdose attempt with alcohol and Seroquel. Patient states after he was discharged his mother had wired transferred him the remaining amount of money for the month he picked it up at [facility], filled his prescriptions there and then went and bought alcohol. He states since that time he is really not been taking his medications and has been having [employer] deliver beer to his house. Patient has been drinking 12-24 ounce beers a day. Patient states that he began drinking again and states once he started he was unable to stop and began to feel like drinking himself to . Patient reports that he called 911 because he was feeling suicidal. He states that he did dispose of the remainder of the Seroquel medication that he had at home when he was discharged from the hospital. He states that he feared he would take an overdose of his other medications and that's the other reason that he called 911. Patient states that he was basically only drinking beer for the last 2 weeks, stating bed and also smoked crack on one occasion with a friend when he came over to the home. Patient states that he again suicidal because the relationship with a female friend is not going well secondary to his alcohol use. Patient reports that he has tried Vivitrol and Campral in the past as well as Antabuse to control his drinking with little to no benefit. Patient reports that he was not compliant with medication once he was discharged. Patient again has concerns regarding his ability to pay his rent as he has spent all of his money on alcohol. Patient's mother is his payee and his inability to pay his bills was an issue on his last admission. Patient had been discharged from the psychiatric unit in June 2017 and took some of his meds but was not compliant with all of them reported he takes them on a regular basis patient at that time never followed up with any outpatient appointments. Patient again once he was discharged in June began using alcohol again. Patient reports a history of psychiatric difficulties since the age of 29 and is able to endorse manic episodes as well as depressive episodes. Patient reports that most recently his episodes of been mostly depression, with suicidal thoughts and overdose attempts. Patient has a history of suicide attempts in the past 2 in 2016, one in June 2017 and one in August 2017. Mental status on Admission: Appearance/Attitude: Patient is appropriately dressed, walks with a walker and a stooped posture, he makes eye contact and is cooperative. Behavior: Patient does not exhibit any psychomotor agitation or retardation. Speech/Language: Patient is spontaneous, speech is of normal volume and rhythm and he is coherent. Thought Process: Patient is goal-directed, no evidence of circumstantial or tangential thought and no loose associations or flight of ideas. Thought Content: Patient denies auditory or visual hallucinations and no paranoid or delusional ideation is elicited. Patient reports that he is not having any withdrawal symptoms, no longer feeling tremulous and is eating well. Patient states that he slept fairly well. Patient continues to discuss his difficulties with his female friend that led him to continue to drink and feel suicidal, as well as his inability to stop drinking once he starts. Patient states that he is also concerned regarding inappropriate sexual activity that he had earlier in the year and wishes to have HIV testing. Suicidal/Homicidal Ideation: Patient states that he is not currently suicidal and no current homicidal ideation Sensorium/Cognition: Patient is alert and oriented to person, place, and time and his recent and remote memory are grossly intact although the patient states that he notices that his recent memory is not as good as it once was. Mood/Affect: Patient's mood is depressed and his affect is blunted Insight/Judgment: Patient's insight and judgment are fair Hospital Course: Patient was admitted on a voluntary basis, he was maintained on routine precautions in group and activity therapy were ordered. Patient was continued to be followed by the medical claims specialist upon his transfer from the medical floor back to the psychiatric inpatient unit. Patient was continued on BuSpar 15 mg twice a day, Cymbalta 30 mg in the morning and Lamictal at 25 mg a day. Patient reported no side effects from the medication and continue to have some symptoms of withdrawal in the mornings after breakfast and continued to require Ativan. Patient continued to improve reporting that he was no longer feeling as physically ill as he had been, he was eating well on the unit and his pressure ulcers were healing well. Patient reported no suicidal ideation, his mood was stable and he did not report any symptoms of depression. Patient was attending groups and activities. Patient and I discussed his need for rehab due to his inability to stop using alcohol once he is discharged, his need for follow up after care the need to be compliant with this. Patient was not accepted at any inpatient rehab facilities, will return home and follow up with outpatient psychiatric care and is aware that if he re-institutes his Medicaid he can call for an intake at [facility]. Allergies No Known Allergies Allergy (Verified 10/03/17 00:23) Laboratory Last Values WBC 5.7 k/uL (3.8-10.6) 10/03/17 10:23 RBC 3.64 m/uL (4.30-5.90) L 10/03/17 10:23 Hgb 11.5 gm/dL (13.0-17.5) L 10/03/17 10:23 Hct 35.7 % (39.0-53.0) L 10/03/17 10:23 MCV 98.2 fL (80.0-100.0) 10/03/17 10:23 MCH 31.6 pg (25.0-35.0) 10/03/17 10:23 MCHC 32.2 g/dL (31.0-37.0) 10/03/17 10:23 RDW 15.4 % (11.5-15.5) 10/03/17 10:23 Plt Count 240 k/uL (150-450) 10/03/17 10:23 Neutrophils % 71 % 10/03/17 10:23 Lymphocytes % 18 % 10/03/17 10:23 Monocytes % 5 % 10/03/17 10:23 Eosinophils % 2 % 10/03/17 10:23 Basophils % 1 % 10/03/17 10:23 Neutrophils # 4.0 k/uL (1.3-7.7) 10/03/17 10:23 Lymphocytes # 1.0 k/uL (1.0-4.8) 10/03/17 10:23 Monocytes # 0.3 k/uL (0-1.0) 10/03/17 10:23 Eosinophils # 0.1 k/uL (0-0.7) 10/03/17 10:23 Basophils # 0.0 k/uL (0-0.2) 10/03/17 10:23 Macrocytosis Slight 10/03/17 10:23 Sodium 136 mmol/L (137-145) L 10/03/17 10:23 Potassium 4.0 mmol/L (3.5-5.1) 10/03/17 10:23 Chloride 100 mmol/L (98-107) 10/03/17 10:23 Carbon Dioxide 27 mmol/L (22-30) 10/03/17 10:23 Anion Gap 9 mmol/L 10/03/17 10:23 BUN 11 mg/dL (9-20) 10/03/17 10:23 Creatinine 0.56 mg/dL (0.66-1.25) L 10/03/17 10:23 Est GFR (CKD-EPI)AfAm >90 (>60 ml/min/1.73 sqM) 10/03/17 10:23 Est GFR (CKD-EPI)NonAf >90 (>60 ml/min/1.73 sqM) 10/03/17 10:23 Glucose 63 mg/dL (74-99) L 10/03/17 10:23 Calcium 9.6 mg/dL (8.4-10.2) 10/03/17 10:23 Total Bilirubin 0.5 mg/dL (0.2-1.3) 10/03/17 10:23 AST 69 U/L (17-59) H 10/03/17 10:23 ALT 60 U/L (21-72) 10/03/17 10:23 Alkaline Phosphatase 53 U/L (38-126) 10/03/17 10:23 Total Protein 6.3 g/dL (6.3-8.2) 10/03/17 10:23 Albumin 3.6 g/dL (3.5-5.0) 10/03/17 10:23 HIV-1 Antibody Non-Reactive (Non-Reactive) 10/03/17 10:23 HIV Ag/Ab Interpret (()) 10/03/17 10:23 HIV p24 Antibody Non-Reactive (Non-Reactive) 10/03/17 10:23 HIV-2 Antibody Non-Reactive (Non-Reactive) 10/03/17 10:23 HIV P24 Antigen Non-Reactive (Non-Reactive) 10/03/17 10:23 Discharge Mental Status: Appearance/Attitude: Patient is appropriately dressed, walking with a stooped posture makes good eye contact and is cooperative. Behavior: Patient does not display any psychomotor agitation or retardation. Speech/Language: Patient's speech is spontaneous and of normal volume and rhythm and he is coherent Thought Process: Patient is goal-directed there is no evidence of loose association or flight of ideas. Thought Content: Patient denies any auditory or visual hallucinations no delusions or paranoid ideation were elicited. The patient is not having any racing thoughts, is not feeling hopeless or helpless. Patient reports that his physical health is improved dramatically and he is no longer having any symptoms of withdrawal. Patient states that he is eating and sleeping well. Patient states that he is very much interested in rehab once he is discharged. Suicidal/Homicidal Ideation: Patient denies any current suicidal or homicidal ideation. Sensorium/Cognition: Patient is alert and oriented to person, place, and time and his recent and remote memory are grossly intact. Mood/Affect: Patient's mood is euthymic and his affect is appropriate Insight/Judgment: Patient's insight and judgment are fair Risk Assessment: Patient's risk remains high secondary to repeat admissions, continued alcohol use and lack of compliance with follow-up care and medication on discharge Discharge Plan: Patient will be discharged to return home, patient will continue on BuSpar 15 mg twice a day, Cymbalta 30 mg in the morning and Lamictal 25 mg daily for 7 days then increase to 50 mg daily for 2 weeks. Patient will be given prescriptions for these 3 drugs and he states he has sufficient of his other medications at home. Patient was encouraged to remain sober and follow-up with his outpatient appointment and outpatient medications. Patient was encouraged to reinstate his Medicaid so that he could call for an intake at [facility], he is also encouraged to attend AA meetings after discharge. Patient Condition at Discharge: Stable Plan - Discharge Summary Discharge Rx Participant: No New Discharge Prescriptions: Continue Budesonide/Formoterol Fumarate [Symbicort 160-4.5 Mcg Inhaler] 1 puff INHALATION RT-BID Albuterol Inhaler [Ventolin Hfa Inhaler] 1 - 2 puff INHALATION RT-Q6H PRN PRN Reason: Shortness Of Breath Thiamine [Vitamin B-1] 100 mg PO BID@1200,1700 #60 tab Multivitamins, Thera [Multivitamin (formulary)] 1 tab PO DAILY@1200 Lisinopril [Prinivil] 10 mg PO DAILY #30 tab Pantoprazole [Protonix] 40 mg PO AC-BRKFST #30 tablet. Acetaminophen Tab [Tylenol] 650 mg PO Q6HR PRN tab PRN Reason: Mild Pain Or Fever > 100.5 Albuterol Nebulized [Ventolin Nebulized] 2.5 mg INHALATION RT-QID PRN nebu PRN Reason: Shortness Of Breath Or Wheezing Folic Acid 1 mg PO DAILY@1200 tab busPIRone HCL 15 mg PO TID #42 tablet DULoxetine HCL [Cymbalta] 30 mg PO DAILY #14 capsule. lamoTRIgine [LaMICtal] 25 mg PO DAILY #35 tab Discharge Medication List Budesonide/Formoterol Fumarate [Symbicort 160-4.5 Mcg Inhaler] 1 puff INHALATION RT-BID 04/18/17 [History] Albuterol Inhaler [Ventolin Hfa Inhaler] 1 - 2 puff INHALATION RT-Q6H PRN [History] Thiamine [Vitamin B-1] 100 mg PO BID@1200,1700 #60 tab 07/10/17 [Rx] Multivitamins, Thera [Multivitamin (formulary)] 1 tab PO DAILY@1200 09/03/17 [ History] Lisinopril [Prinivil] 10 mg PO DAILY #30 tab 09/08/17 [Rx] Pantoprazole [Protonix] 40 mg PO AC-BRKFST #30 tablet. 09/08/17 [Rx] Acetaminophen Tab [Tylenol] 650 mg PO Q6HR PRN tab 10/02/17 [Rx] Albuterol Nebulized [Ventolin Nebulized] 2.5 mg INHALATION RT-QID PRN nebu [Rx] Folic Acid 1 mg PO DAILY@1200 tab 10/02/17 [Rx] DULoxetine HCL [Cymbalta] 30 mg PO DAILY #14 capsule. 10/08/17 [Rx] busPIRone HCL 15 mg PO TID #42 tablet 10/08/17 [Rx] lamoTRIgine [LaMICtal] 25 mg PO DAILY #35 tab 10/08/17 [Rx] Follow up Appointment(s)/Referral(s): [facility] [Outside] - 10/11/17 11:30 am ([facility] Please call 10/08 or 10/09 speak to Nora prior to appintment for phone intake ) Patient Instructions/Handouts: How to Stop Smoking (GEN) Activity/Diet/Wound Care/Special Instructions: Keep your follow up appointments. Continue medications as prescribed. No alcohol or street drugs. No guns or weapons. Crisis line if needed [phone]. Discharge Disposition: HOME SELF-CARE
[2017-10-08] MEDS: MULTIVITAMINS, THERA 1 EACH TAB PO SCH (12:07)
[2017-10-08] MEDS: FOLIC ACID 1 MG TAB PO SCH (12:07)
[2017-10-08] MEDS: THIAMINE 100 MG TAB PO SCH (12:07)
== END 2017-10-08 12:29 | disposition home or self-care (01) | DRG 885 ==
LOC: 3MHU 16:30
PROVIDERS: ADMIT Psychiatry & Neurology Psychiatry; ATTEND Psychiatry & Neurology Psychiatry
DX: F31.4 Bipolar disorder, current episode depressed, severe, without psychotic features (principal); L89.309 Pressure ulcer of unspecified buttock, unspecified stage; L89.102 Pressure ulcer of unspecified part of back, stage 2; R45.851 Suicidal ideations; F10.10 Alcohol abuse, uncomplicated; I10 Essential (primary) hypertension; K21.9 Gastro-esophageal reflux disease without esophagitis; Z79.899 Other long term (current) drug therapy; Z91.5 Personal history of self-harm; Z98.84 Bariatric surgery status; K29.20 Alcoholic gastritis without bleeding; Z91.14 Patient's other noncompliance with medication regimen; Z71.6 Tobacco abuse counseling; F17.210 Nicotine dependence, cigarettes, uncomplicated; D64.9 Anemia, unspecified; F41.9 Anxiety disorder, unspecified; Z87.442 Personal history of urinary calculi; M50.30 Other cervical disc degeneration, unspecified cervical region; M41.9 Scoliosis, unspecified; Z71.41 Alcohol abuse counseling and surveillance of alcoholic; Z81.1 Family history of alcohol abuse and dependence; Z81.8 Family history of other mental and behavioral disorders
CPT/HCPCS: 80053; 85025; 87390; 94640

== ENCOUNTER 2017-12-30 03:48 | Emergency (ER) | payer MEDICARE ==
[2017-12-30 04:00] VITALS: RESP 16
--- NOTE | 2017-12-30 04:10 | ED ---
General Adult HPI - General Source: patient, police, EMS, RN notes reviewed Mode of arrival: EMS Limitations: no limitations <Saroj Cole - Last Filed: 12/30/17 04:07> <Harjinder Sands - Last Filed: 12/30/17 11:14> - General Chief complaint: Psychiatric Symptoms Stated complaint: Mental Health Time Seen by Provider: 12/30/17 04:03 - History of Present Illness Initial comments: Patient is a pleasant 52-year-old male presenting to the emergency department with suicidal ideation. Patient has been having suicidal thoughts for the past few days. Patient states he is suicidal because he received a message that his girlfriend is being held against her will. Patient states he is unable to notify the police because the person holding her is a phone hacker and his phone has been hacked. Patient denies any hallucinations stating that he has been taking his medications. No homicidal thoughts. Patient does admit to drinking alcohol today. Patient is unclear of any plan that he has to hurt himself. complaint investigations officer is present on patient arrival and did take information from the patient. Patient has no new physical complaints. (Saroj Cole) - Related Data Home Medications Medication Instructions Recorded Confirmed Budesonide/Formoterol Fumarate 1 puff INHALATION RT-BID 04/18/17 10/02/17 [Symbicort 160-4.5 Mcg Inhaler] Albuterol Inhaler [Ventolin Hfa 1 - 2 puff INHALATION RT-Q6H PRN 04/21/17 Inhaler] Multivitamins, Thera [Multivitamin 1 tab PO DAILY@1200 09/03/17 10/02/17 (formulary)] Previous Rx's Medication Instructions Recorded Thiamine [Vitamin B-1] 100 mg PO BID@1200,1700 #60 tab 07/10/17 Lisinopril [Prinivil] 10 mg PO DAILY #30 tab 09/08/17 Pantoprazole [Protonix] 40 mg PO AC-GONZALOKFSJoel #30 tablet. 09/08/17 Acetaminophen Tab [Tylenol] 650 mg PO Q6HR PRN tab 10/02/17 Albuterol Nebulized [Ventolin 2.5 mg INHALATION RT-QID PRN nebu 10/02/17 Nebulized] Folic Acid 1 mg PO DAILY@1200 tab 10/02/17 DULoxetine HCL [Cymbalta] 30 mg PO DAILY #14 capsule. 10/08/17 busPIRone HCL 15 mg PO TID #42 tablet 10/08/17 lamoTRIgine [LaMICtal] 25 mg PO DAILY #35 tab 10/08/17 Allergies Allergy/AdvReac Type Severity Reaction Status Date / Time No Known Allergies Allergy Verified 12/30/17 04:00 Review of Systems ROS Other: All systems not noted in ROS Statement are negative. Constitutional: Denies: fever Eyes: Denies: eye pain ENT: Denies: ear pain Respiratory: Denies: cough Cardiovascular: Denies: chest pain Endocrine: Denies: fatigue Gastrointestinal: Denies: abdominal pain Genitourinary: Denies: dysuria Musculoskeletal: Denies: back pain Skin: Denies: rash Neurological: Denies: headache Psychiatric: Reports: depression, suicidal thoughts <Saroj Cole - Last Filed: 12/30/17 04:07> ROS Other: All systems not noted in ROS Statement are negative. <Harjinder Sands - Last Filed: 12/30/17 11:14> ROS Statement: Those systems with pertinent positive or pertinent negative responses have been documented in the HPI. Past Medical History Past Medical History: GERD/Reflux, Hypertension, Musculoskeletal Disorder, Pneumonia Additional Past Medical History / Comment(s): GI Bleed, kidney stones, degenerative disc disease in lower back and neck, kyphosis and scoliosis, ETOH abuse. History of Any Multi-Drug Resistant Organisms: None Reported Past Surgical History: Bariatric Surgery, Orthopedic Surgery Additional Past Surgical History / Comment(s): Left inner Forearm-metal plate Past Anesthesia/Blood Transfusion Reactions: No Reported Reaction Past Psychological History: Anxiety, Bipolar, Depression, PTSD Past Alcohol Use History: Heavy - Past Family History Mother Family Medical History: Hypertension Additional Family Medical History / Comment(s): Lupus <Saroj Cole - Last Filed: 12/30/17 04:07> General Exam Limitations: no limitations General appearance: alert, in no apparent distress Head exam: Present: atraumatic Eye exam: Present: normal appearance, PERRL, EOMI, nystagmus ENT exam: Present: normal oropharynx Neck exam: Present: normal inspection Respiratory exam: Present: normal lung sounds bilaterally Cardiovascular Exam: Present: regular rate, normal rhythm GI/Abdominal exam: Present: soft. Absent: tenderness Extremities exam: Present: normal inspection Neurological exam: Present: alert, oriented X3. Absent: motor sensory deficit Psychiatric exam: Present: flat affect Skin exam: Present: normal color <Saroj Cole - Last Filed: 12/30/17 04:07> Vital Signs 12/30/17 03:52 Temperature 98.9 F Pulse Rate 102 H Respiratory 16 Rate Blood Pressure 164/90 O2 Sat by Pulse 98 Oximetry Medical Decision Making <Saroj Cole - Last Filed: 12/30/17 04:07> <Harjinder Sands - Last Filed: 12/30/17 11:14> - Medical Decision Making The patient was evaluated by the psychiatric service and currently is not a risk to himself or anyone else he will be discharged with outpatient referral and follow-up. (Harjinder Sands) Disposition <Saroj Cole - Last Filed: 12/30/17 04:07> Is patient prescribed a controlled substance at d/c from ED?: No <Harjinder Sands - Last Filed: 12/30/17 11:14> Clinical Impression: Adjustment reaction, Alcohol intoxication Disposition: HOME SELF-CARE Condition: Good Instructions: Alcohol Intoxication (ED), Abuse of Alcohol (ED), Mood Disorders (ED) Referrals: None,Stated [Primary Care Provider] - 1-2 days
[2017-12-30 11:27] LABS: Amphetamine Screen,Urine Not Detected (NotDetected); Barbiturate Screen,Urine Not Detected (NotDetected); Benzodiazepines Screen,Urine Not Detected (NotDetected); Cocaine Screen,Urine Not Detected (NotDetected); Methadone Screen, Urine Not Detected (NotDetected); Opiate Screen,Urine Not Detected (NotDetected); Oxycodone Screen, Urine Not Detected (NotDetected); Phencyclidine Screen,Urine Not Detected (NotDetected); Tricyclic Antidepressant,Urine Not Detected (NotDetected); Urn Cannabinoid Scrn Not Detected (NotDetected)
[2017-12-30 11:31] VITALS: BP 134/70; PULSE 100; TEMP 98.6
== END 2017-12-30 11:31 | disposition home or self-care (01) ==
LOC: EC 03:48
DX: F43.20 Adjustment disorder, unspecified (principal); F10.120 Alcohol abuse with intoxication, uncomplicated; Z79.51 Long term (current) use of inhaled steroids
CPT/HCPCS: 80306; 82075; 99285

== ENCOUNTER 2018-03-03 01:38 | Emergency (ER) | payer MEDICARE ==
--- NOTE | 2018-03-03 02:11 | ED ---
Alcohol HPI - General Source: patient, EMS Mode of arrival: EMS Limitations: no limitations <Phyllis Brown - Last Filed: 03/04/18 01:59> <Harjinder Worthy - Last Filed: 03/04/18 17:09> - General Chief Complaint: Alcohol Stated Complaint: Mental Health/ETOH Time Seen by Provider: 03/03/18 01:41 - History of Present Illness Initial Comments: 52-year-old male patient presents to the emergency department today complaining of increased depression. Patient states that he has been on a 3 day drinking binge due to being increasingly depressed. Patient states that recently he has been dealing with a woman who is obsessed with him and would not leave him alone. Patient states his situation is improving because he got a new phone and she does not have a contact information. Patient states she deals with chronic pain issues and financial troubles which are also contributing to his depression. Patient does have a history of heroin addiction but hasn't used since 2016. States that he occasionally uses marijuana and crack cocaine. Patient denies any thoughts of killing himself or any homicidal ideation but states that his depression is getting bad. Patient does have a history of bipolar to, states he has been taking his medications as ordered by he is about to run out. Denies any hallucinations. Is requesting mental health examination. He denies any current physical symptoms or concerns. (Phyllis Brown) - Related Data Home Medications Medication Instructions Recorded Confirmed Budesonide/Formoterol Fumarate 1 puff INHALATION RT-BID 04/18/17 03/03/18 [Symbicort 160-4.5 Mcg Inhaler] Albuterol Inhaler [Ventolin Hfa 1 - 2 puff INHALATION RT-Q6H PRN 04/21/17 Inhaler] Multivitamins, Thera [Multivitamin 1 tab PO DAILY 09/03/17 03/03/18 (formulary)] Calcium/Magnesium 1 tab PO DAILY 03/03/18 03/03/18 Dicyclomine [Bentyl] 20 mg PO ACHS 03/03/18 03/03/18 Lisinopril [Zestril] 20 mg PO DAILY 03/03/18 03/03/18 busPIRone HCL 15 mg PO QID 03/03/18 03/03/18 lamoTRIgine [LaMICtal] 100 mg PO DAILY 03/03/18 03/03/18 Previous Rx's Medication Instructions Recorded Albuterol Nebulized [Ventolin 2.5 mg INHALATION RT-QID PRN nebu 10/02/17 Nebulized] DULoxetine HCL [Cymbalta] 30 mg PO DAILY #14 capsule. 10/08/17 Allergies Allergy/AdvReac Type Severity Reaction Status Date / Time No Known Allergies Allergy Verified 03/03/18 17:52 Review of Systems ROS Other: All systems not noted in ROS Statement are negative. <Phyllis Brown - Last Filed: 03/04/18 01:59> ROS Other: All systems not noted in ROS Statement are negative. <Harjinder Worthy - Last Filed: 03/04/18 17:09> ROS Statement: Those systems with pertinent positive or pertinent negative responses have been documented in the HPI. Past Medical History Past Medical History: GERD/Reflux, Hypertension, Musculoskeletal Disorder, Pneumonia Additional Past Medical History / Comment(s): GI Bleed, kidney stones, degenerative disc disease in lower back and neck, kyphosis and scoliosis, ETOH abuse. IBS History of Any Multi-Drug Resistant Organisms: None Reported Past Surgical History: Bariatric Surgery, Orthopedic Surgery Additional Past Surgical History / Comment(s): Left inner Forearm-metal plate Past Anesthesia/Blood Transfusion Reactions: No Reported Reaction Past Psychological History: Anxiety, Bipolar, Depression, PTSD Smoking Status: Current every day smoker Past Alcohol Use History: Heavy Past Drug Use History: Marijuana - Past Family History Mother Family Medical History: Hypertension Additional Family Medical History / Comment(s): Lupus <Phyllis Brown - Last Filed: 03/04/18 01:59> General Exam Limitations: no limitations General appearance: alert, in no apparent distress, other (This is a well- developed, well-nourished adult male patient in no acute distress. Vital signs upon presentation are temperature 98.5F, pulse 109, respirations 18, blood pressure 139/93, pulse ox 95% on room air.) Eye exam: Present: normal appearance, PERRL, EOMI. Absent: scleral icterus, conjunctival injection, periorbital swelling ENT exam: Present: normal exam, normal oropharynx, mucous membranes moist Respiratory exam: Present: normal lung sounds bilaterally. Absent: respiratory distress, wheezes, rales, rhonchi, stridor Cardiovascular Exam: Present: regular rate, normal rhythm, normal heart sounds. Absent: systolic murmur, diastolic murmur, rubs, gallop, clicks GI/Abdominal exam: Present: soft, normal bowel sounds. Absent: distended, tenderness, guarding, rebound, rigid Neurological exam: Present: alert, oriented X3, CN II-XII intact Psychiatric exam: Present: depressed Skin exam: Present: warm, dry, intact, normal color. Absent: rash <Phyllis Brown - Last Filed: 03/04/18 01:59> Vital Signs 03/03/18 03/03/18 03/03/18 01:41 05:49 12:02 Temperature 98.5 F Pulse Rate 109 H 89 87 Respiratory 18 12 16 Rate Blood Pressure 139/93 125/87 136/79 O2 Sat by Pulse 95 98 99 Oximetry 03/03/18 03/04/18 18:49 07:29 Temperature Pulse Rate 62 81 Respiratory 16 18 Rate Blood Pressure 131/90 140/95 O2 Sat by Pulse 100 99 Oximetry Medical Decision Making - Lab Data Result diagrams: 03/03/18 04:55 03/03/18 04:55 <Phyllis Brown - Last Filed: 03/04/18 01:59> - Lab Data Result diagrams: 03/03/18 04:55 03/03/18 04:55 <Harjinder Worthy - Last Filed: 03/04/18 17:09> - Medical Decision Making 52-year-old male patient presented to the emergency department today for complaints of suicidal ideation, increased depression, and concern for alcohol dependence. Patient was seen and evaluated by emergency psychiatric services, it is felt that he would benefit from inpatient admission. There are no beds available in our facilities and will be transferred. (Phyllis Brown) The patient has been in the emergency department for approximately 36 hours. The psychiatrist just recently saw the patient in the ER and they felt as though patient is stable for discharge. He apparently feels much better since he has been in the emergency department and is no longer suicidal. The case is discussed with the psychiatric nurse in this regard. The patient will therefore be discharged and is instructed to follow-up with the psychiatric recommendations and return if any other further problems to occur. He was counseled regarding alcohol abuse. (Kitto,Aroldo) - Lab Data Lab Results 03/03/18 03/03/18 03/03/18 Range/Units 04:55 04:55 04:55 WBC 6.8 (3.8-10.6) k/uL RBC 4.74 (4.30-5.90) m/uL Hgb 14.7 (13.0-17.5) gm/dL Hct 45.1 (39.0-53.0) % MCV 95.3 (80.0-100.0) fL MCH 31.0 (25.0-35.0) pg MCHC 32.6 (31.0-37.0) g/dL RDW 14.3 (11.5-15.5) % Plt Count 380 (150-450) k/uL Neutrophils % 71 % Lymphocytes % 19 % Monocytes % 5 % Eosinophils % 2 % Basophils % 1 % Neutrophils # 4.8 (1.3-7.7) k/uL Lymphocytes # 1.3 (1.0-4.8) k/uL Monocytes # 0.4 (0-1.0) k/uL Eosinophils # 0.2 (0-0.7) k/uL Basophils # 0.1 (0-0.2) k/uL Sodium 141 (137-145) mmol/L Potassium 4.4 (3.5-5.1) mmol/L Chloride 104 (98-107) mmol/L Carbon Dioxide 27 (22-30) mmol/L Anion Gap 10 mmol/L BUN 12 (9-20) mg/dL Creatinine 0.64 L (0.66-1.25) mg/dL Est GFR (CKD-EPI)AfAm >90 (>60 ml/min/1.73 sqM) Est GFR (CKD-EPI)NonAf >90 (>60 ml/min/1.73 sqM) Glucose 110 H (74-99) mg/dL Calcium 9.4 (8.4-10.2) mg/dL Total Bilirubin 1.2 (0.2-1.3) mg/dL AST 34 (17-59) U/L ALT 24 (21-72) U/L Alkaline Phosphatase 84 (38-126) U/L Total Protein 7.2 (6.3-8.2) g/dL Albumin 4.2 (3.5-5.0) g/dL Urine Opiates Screen Not Detected (NotDetected) Ur Oxycodone Screen Not Detected (NotDetected) Urine Methadone Screen Not Detected (NotDetected) Ur Propoxyphene Screen Not Detected (NotDetected) Ur Barbiturates Screen Not Detected (NotDetected) U Tricyclic Antidepress Not Detected (NotDetected) Ur Phencyclidine Scrn Not Detected (NotDetected) Ur Amphetamines Screen Not Detected (NotDetected) U Methamphetamines Scrn Not Detected (NotDetected) U Benzodiazepines Scrn Not Detected (NotDetected) Urine Cocaine Screen Not Detected (NotDetected) U Marijuana (THC) Screen Not Detected (NotDetected) Disposition - Out of Hospital Transfer - Req. Specs Out of Hospital Transfer - Requested Specifics: Psychiatric Non-ICU <Phyllis Brown - Last Filed: 03/04/18 01:59> Is patient prescribed a controlled substance at d/c from ED?: No Time of Disposition: 17:08 <Harjinder Worthy - Last Filed: 03/04/18 17:09> Clinical Impression: Depression, Alcohol abuse Disposition: HOME SELF-CARE Condition: Fair Instructions: Abuse of Alcohol (ED), Depression (ED) Additional Instructions: Please follow-up with the psychiatrist recommendations. Referrals: None,Stated [Primary Care Provider] - 1-2 days
[2018-03-03] MEDS ORDERED: chlordiazePOXIDE 25 MG CAP PO STA (03:52)
[2018-03-03] MEDS ORDERED: THIAMINE 100 MG/ML 2 ML VIAL IM STA (04:57)
[2018-03-03] MEDS ORDERED: LORazepam 2 MG/ML INJ IV PRN ×3 (04:57)
[2018-03-03 05:04] LABS: Basophils # (A) 0.1 k/uL (0-0.2); Basophils % (A) 1 %; Eosinophils # (A) 0.2 k/uL (0-0.7); Eosinophils % (A) 2 %; HCT 45.1 % (39.0-53.0); HGB 14.7 gm/dL (13.0-17.5); Lymphocytes # (A) 1.3 k/uL (1.0-4.8); Lymphocytes % (A) 19 %; MCHC 32.6 g/dL (31.0-37.0); MCV 95.3 fL (80.0-100.0); Mean Platelet Volume 6.6; Monocytes # (A) 0.4 k/uL (0-1.0); Monocytes % (A) 5 %; Neutrophils # (A) 4.8 k/uL (1.3-7.7); Neutrophils % (A) 71 %; Platelet Count 380 k/uL (150-450); RBC 4.74 m/uL (4.30-5.90); RDW 14.3 % (11.5-15.5); WBC 6.8 k/uL (3.8-10.6)
[2018-03-03 05:30] LABS: Amphetamine Screen,Urine Not Detected (NotDetected); Barbiturate Screen,Urine Not Detected (NotDetected); Benzodiazepines Screen,Urine Not Detected (NotDetected); Cocaine Screen,Urine Not Detected (NotDetected); Methadone Screen, Urine Not Detected (NotDetected); Opiate Screen,Urine Not Detected (NotDetected); Oxycodone Screen, Urine Not Detected (NotDetected); Phencyclidine Screen,Urine Not Detected (NotDetected); Tricyclic Antidepressant,Urine Not Detected (NotDetected); Urn Cannabinoid Scrn Not Detected (NotDetected)
[2018-03-03] MEDS ORDERED: SODIUM CHLORIDE 0.9% 1,000 ML with MVI, ADULT NO.4 WITH VIT K 10 ML, THIAMINE 100 MG, F... IV ONE ×4 (05:30)
[2018-03-03 06:18] LABS: ALT 24 U/L (21-72); AST 34 U/L (17-59); Albumin 4.2 g/dL (3.5-5.0); Alkaline Phosphatase 84 U/L (38-126); Anion Gap 10 mmol/L; Blood Urea Nitrogen 12 mg/dL (9-20); Calcium 9.4 mg/dL (8.4-10.2); Carbon Dioxide 27 mmol/L (22-30); Chloride 104 mmol/L (98-107); Glucose 110 mg/dL (74-99); Potassium 4.4 mmol/L (3.5-5.1); Sodium 141 mmol/L (137-145); Total Bilirubin 1.2 mg/dL (0.2-1.3); Total Protein 7.2 g/dL (6.3-8.2)
[2018-03-04 07:30] VITALS: RESP 18
[2018-03-04] MEDS ORDERED: busPIRone HCl 5 MG TAB PO STA (08:30)
[2018-03-04] MEDS ORDERED: lamoTRIgine 100 MG TAB PO STA (08:30)
[2018-03-04] MEDS ORDERED: LISINOPRIL 20 MG TAB PO STA (08:31)
[2018-03-04] MEDS ORDERED: DULoxetine HCL 30 MG CAPSULE.DR PO STA (08:31)
[2018-03-04] MEDS ORDERED: LORazepam 1 MG TAB PO STA (13:11)
[2018-03-04 17:16] VITALS: BP 129/89; PULSE 95; TEMP 98.2
== END 2018-03-04 17:22 | disposition home or self-care (01) ==
LOC: EC 01:38
DX: F31.9 Bipolar disorder, unspecified (principal); F10.10 Alcohol abuse, uncomplicated; R45.851 Suicidal ideations; I10 Essential (primary) hypertension; F41.9 Anxiety disorder, unspecified; F43.10 Post-traumatic stress disorder, unspecified; F17.200 Nicotine dependence, unspecified, uncomplicated; Z79.51 Long term (current) use of inhaled steroids; Z79.899 Other long term (current) drug therapy
CPT/HCPCS: 82075; 36415; 80053; 85025; 80306; 99284; 96365; 96366 ×9; 96375; 96376; 96372; J2060; J3411

== ENCOUNTER 2019-05-18 15:04 | Inpatient (IN) | payer MEDICARE, OTHER ==
--- NOTE | 2019-05-18 17:15 | ED ---
Psych HPI <Iraj Polanco - Last Filed: 05/18/19 23:23> - General Source: patient Mode of arrival: wheelchair <Rosie Santiago - Last Filed: 05/20/19 20:08> - General Chief Complaint: Psychiatric Symptoms Stated Complaint: Suicidal,ETOH Time Seen by Provider: 05/18/19 15:57 - History of Present Illness Initial Comments: Patient is a 53-year-old male presenting to the emergency department with suicidal ideations. Patient was brought in by police department. Patient states he arrived at the train station today from [place] expecting his girlfriend pick him up and she did not. Patient became upset and drank a liter of whiskey and does not want to live anymore. Patient states he does not have a plan at this time. Patient has known history of alcohol intoxication. Patient denies homicidal thoughts at this time. Patient does not have any other complaints at this time. Upon arrival to ER, vital signs are stable. (Rosie Santiago) - Related Data Home Medications Medication Instructions Recorded Confirmed Budesonide/Formoterol Fumarate 1 puff INHALATION DIRECTED 04/18/17 05/31/18 [Symbicort 160-4.5 Mcg Inhaler] Albuterol Inhaler [Ventolin Hfa 1 - 2 puff INHALATION RT-Q6H PRN 04/21/17 05/31/18 Inhaler] Lisinopril [Zestril] 20 mg PO DIRECTED 03/03/18 05/31/18 lamoTRIgine [LaMICtal] 100 mg PO DIRECTED 03/03/18 05/31/18 Previous Rx's Medication Instructions Recorded Albuterol Nebulized [Ventolin 2.5 mg INHALATION RT-QID PRN nebu 10/02/17 Nebulized] Acamprosate Calcium [Campral] 333 mg PO TID 30 Days #90 tablet. 06/05/18 Ipratropium-Albuterol Nebulize 3 ml INHALATION RT-QID PRN 06/05/18 [Duoneb 0.5 mg-3 mg/3 ml Soln] ampul.neb Naltrexone HCl [Revia] 50 mg PO 2100 30 Days #30 tab 06/05/18 Paliperidone [Invega] 3 mg PO 2100 30 Days #30 tab.er.24 06/05/18 Sulfamethox-Tmp 800-160Mg [Bactrim 1 each PO BID 10 Days #20 tab 06/05/18 DS 800-160 mg] Venlafaxine HCl ER [Effexor XR] 150 mg PO 2100 30 Days #30 06/05/18 cap.er.24h lamoTRIgine [LaMICtal] 100 mg PO 2100 30 Days #30 tab 06/05/18 Allergies Allergy/AdvReac Type Severity Reaction Status Date / Time No Known Allergies Allergy Verified 05/20/19 00:32 Review of Systems ROS Other: All systems not noted in ROS Statement are negative. <Iraj Polanco - Last Filed: 05/18/19 23:23> ROS Other: All systems not noted in ROS Statement are negative. <Rosie Santiago - Last Filed: 05/20/19 20:08> ROS Statement: Those systems with pertinent positive or pertinent negative responses have been documented in the HPI. Past Medical History Past Medical History: GERD/Reflux, Hypertension, Musculoskeletal Disorder, Pneumonia Additional Past Medical History / Comment(s): GI Bleed, kidney stones, degenerative disc disease in lower back and neck, kyphosis and scoliosis, ETOH abuse. IBS History of Any Multi-Drug Resistant Organisms: None Reported Past Surgical History: Bariatric Surgery, Orthopedic Surgery Additional Past Surgical History / Comment(s): Left inner Forearm-metal plate Past Anesthesia/Blood Transfusion Reactions: No Reported Reaction Past Psychological History: Anxiety, Bipolar, Depression, PTSD Smoking Status: Current every day smoker Past Alcohol Use History: Abuse, Heavy Past Drug Use History: Cocaine, Heroin, Marijuana - Past Family History Mother Family Medical History: Hypertension Additional Family Medical History / Comment(s): Lupus <Rosie Santiago - Last Filed: 05/20/19 20:08> General Exam Limitations: no limitations <Rosie Santiago - Last Filed: 05/20/19 20:08> - General Exam Comments Initial Comments: GENERAL: Patient lying still on the bed, eyes closed, is responding to my questions. HEAD: Atraumatic, normocephalic. EYES: Pupils equal round and reactive to light, extraocular movements intact, sclera anicteric, conjunctiva are normal. ENT: Moist mucous membranes. NECK: Normal range of motion, supple without lymphadenopathy or JVD. LUNGS: Breath sounds clear to auscultation bilaterally and equal. No wheezes rales or rhonchi. HEART: Regular rate and rhythm without murmurs, rubs or gallops. ABDOMEN: Soft, nontender, normoactive bowel sounds. No guarding, no rebound. No masses appreciated. EXTREMITIES: Normal range of motion, no pitting or edema. No clubbing or cyanosis. NEUROLOGICAL: Cranial nerves II through XII grossly intact. Normal speech. PSYCH: Depressed mood, flat affect. SKIN: Warm, Dry, normal turgor, no rashes or lesions noted. (Rosie Santiago) Course <Iraj Polanco - Last Filed: 05/18/19 23:23> Vital Signs 05/18/19 05/19/19 05/19/19 15:16 00:37 03:46 Temperature 97.8 F Pulse Rate 70 77 70 Respiratory 18 16 18 Rate Blood Pressure 119/78 125/73 153/88 O2 Sat by Pulse 100 96 95 Oximetry - Reevaluation(s) Reevaluation #1: 05/18/19 23:24 Nursing staff reported the patient was starting to become somewhat agitated and I was asked to provide medication for this patient (Iraj Polanco) Medical Decision Making - Lab Data Result diagrams: 05/20/19 07:49 05/20/19 07:49 <Rosie Santiago - Last Filed: 05/20/19 20:08> - Medical Decision Making Patient is a 53-year-old male presenting with suicidal deviations and alcohol intoxication. Vital signs are stable. Patient was evaluated by EPS once he was sober. Patient will be admitted to psych. (Rosie Santiago) Disposition <Iraj Polanco - Last Filed: 05/18/19 23:23> Is patient prescribed a controlled substance at d/c from ED?: No Decision Date: 05/19/19 Decision Time: 04:00 <Rosie Santiago - Last Filed: 05/20/19 20:08> Clinical Impression: Alcohol intoxication, Suicidal ideation Disposition: ADMITTED IP TO THIS HOSP Condition: Stable
[2019-05-18] MEDS ORDERED: ZIPRASIDONE 20 MG VIAL IM STA (23:20)
[2019-05-18] MEDS ORDERED: LORazepam 2 MG/ML INJ IM STA (23:21)
[2019-05-19] MEDS ORDERED: LORazepam 2 MG/ML INJ IM STA (00:27)
[2019-05-19] MEDS ORDERED: MAGNESIUM HYDROXIDE 2,400 MG/10 ML CUP PO PRN (04:21)
[2019-05-19] MEDS ORDERED: ZIPRASIDONE 20 MG VIAL IM PRN (04:21)
[2019-05-19] MEDS ORDERED: ACETAMINOPHEN TAB 325 MG TAB PO PRN (04:21)
[2019-05-19] MEDS ORDERED: MAG HYDROX/AL HYDROX/SIMETH 30 ML CUP PO PRN (04:21)
[2019-05-19] MEDS ORDERED: NICOTINE POLACRILEX 2 MG GUM BUCCAL PRN (15:45)
--- NOTE | 2019-05-19 15:46 | P.HP ---
Psychiatric H&P - . H&P Date: 05/19/19 History & Physical: Allergies Allergy/AdvReac Type Severity Reaction Status Date / Time No Known Allergies Allergy Verified 05/18/19 15:20 Vital Signs Temp 97.6 F 05/19/19 05:21 Pulse 71 05/19/19 05:21 Resp 18 05/19/19 05:21 BP 160/96 05/19/19 05:21 Pulse Ox 97 05/19/19 05:21 Intake & Output 05/18/19 05/19/19 05/19/19 18:59 06:59 18:59 Weight 79.379 kg 05/19/19 12:46 IDENTIFYING DATA: Patient is a 53-year-old male who is currently homeless and has 3 kids in a single and currently collects Social Security. HPI: Patient presented to the hospital after being suicidal and presenting with the police. As per ED report, patient arrived at the train station coming from [place] to meet his girlfriend who did not show up to pick him up. Patient then went to different restaurants and tried to check into different motels and started drinking whiskey before coming into the hospital with suicidal ideations. Patient was placed on security one-to-one coming onto the unit as he was aggressive and intoxicated however patient was agreeable to be interviewed today. Patient states that she is having significant problems with this particular girl who he was trying to meet as he was stating that "she's been messing with me in all parts of my life" and states that "she thinks it's even funny". He claims that this girl is posing as Lina who is his girlfriend and has been able to access her phone and has even called the motels and hotels in the area and has "blocked me from getting in". Patient also spoke about this impostor taking money from his account and "messing with my family". He states that he is been filing different reports with the police and also to report with the FBI that have not been followed up according to patient. Patient claims that she has been taking his medications and was following up in [place] with a psychiatrist. He states at this time that he is depressed and having passive suicidal ideations with no plan. Patient claims that he is having mild anxiety and poor sleep. Patient is endorsing paranoia at this time. He is denying any homicidal ideations. He denies any auditory or visual hallucinations. Patient admits to previously abusing alcohol and has been sober for over a year however most recently drank 1 L of whiskey before coming into the hospital. Patient denies any other recreational drug use. He states that he smokes cigarettes approximately 1 pack per day PAST PSYCHIATRIC HISTORY: Patient states that he has a history of bipolar depression. He claims that his last hospitalization on the mental health unit was in May 2018. Patient admitted to following up with psychiatrist in [place] and was taking his medications as prescribed. Patient denies any previous suicide attempts. PMH: GERD, hypertension, degenerative joint disease, gastric bypass surgery, IBS ALLERGIES: as per EMR CHEMICAL DEPENDENCY HISTORY: as per HPI FAMILY PSYCHIATRIC/SUBSTANCE USE HISTORY: Claims his father was an alcoholic and his grandmother had some form of mental illness. SOCIAL HISTORY: States that he was born and raised in [facility] and moved to [place] thereafter. 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 MENTAL STATUS EXAM: General Appearance: Patient appears to be stated age is alert, attempts to be cooperative. Patient has a long house and has poor hygiene and grooming. Behavior: Patient is calmly seated without any agitated behavior. Speech: Patient's speech is fluent and nonpressured. Mood/Affect: Patient reports their mood is depressed, affect is congruent and constricted. Suicidality/Homicidality: Patient denies having any suicidal or homicidal ideation intent or plan. Perceptions: Patient denies any auditory or visual hallucinations. Though content/process: Patient has a well-formed delusion about it impostor and persecutions towards him. Tangential/circumstantial. Memory and concentration: AOX3, grossly intact for the purposes of this session. Can spell "WORLD" backwards Judgment and insight: poor/impulsive. STRENGTHS/WEAKNESSES: strength is that patient is resilient, weaknesses that patient is impulsive with poor insight. INTELLECT: average IMPRESSIONS: Bipolar disorder unspecified Alcohol abuse Cocaine dependence PLAN: -Patient is admitted under voluntary status to MHU for stabilization of psychiatric symptoms and safety. Patient signed adult voluntary form and medication consent and is placed in patient's chart. -Medications : Will start patient on with Zyprexa 5 mg daily at bedtime for mood stabilization/psychosis. We'll also re-start Lamictal 100 mg twice a day for mood stabilization. We'll start Cymbalta 30 mg daily for mood/pain. We'll consider adding on BuSpar if needed for anxiety. -Ativan and Geodon PRN for agitation/aggression -Patient was counselled on substance abuse and desired to cut back on use -Patient was informed of the risks, benefits and side effects of the medication and patient verbally consented to taking the medications. Patient signed med consent form and was placed in chart. -NRT -Nicorette gum ordered PRN -SW on board for discharge planning. 05/19/19 15:29 05/19/19 15:45
[2019-05-19] MEDS: DULoxetine HCL 30 MG CAPSULE.DR PO SCH (16:18)
[2019-05-19] MEDS ORDERED: SYMBICORT 160-4.5 MCG INHALER INHALATION SCH (19:45)
[2019-05-19] MEDS ORDERED: LISINOPRIL 20 MG TAB PO SCH (19:45)
[2019-05-19] MEDS: SYMBICORT 160-4.5 MCG INHALER INHALATION SCH (22:13)
[2019-05-19] MEDS: lamoTRIgine 100 MG TAB PO SCH (22:31)
[2019-05-19] MEDS: OLANZapine 5 MG TAB PO SCH (22:31)
[2019-05-19] MEDS: LISINOPRIL 20 MG TAB PO SCH (22:31)
--- NOTE | 2019-05-19 23:17 | P.MDCNMH ---
History of Present Illness H&P Date: 05/19/19 Chief Complaint: medical evaluation , manage HTN and COPD 53-year-old with history of hypertension and COPD Patient comes in due to suicidal ideation. He denies any physical complaints at this time denies headache changes in his vision or hearing denies any chest pain or trouble breathing denies any fevers or chills denies any coughing abdominal pain nausea vomiting GI bleeding. Patient was in [place] came back here seeking help and family support. He spent one night in the streets started having suicidal ideation after drinking decided to call 911 and was brought into the hospital. Review of Systems Pertinent positives as noted in HPI. All other systems were reviewed and are negative Past Medical History Past Medical History: GERD/Reflux, Hypertension, Musculoskeletal Disorder, Pneu monia Additional Past Medical History / Comment(s): GI Bleed, kidney stones, degenerative disc disease in lower back and neck, kyphosis and scoliosis, ETOH abuse. IBS History of Any Multi-Drug Resistant Organisms: None Reported Past Surgical History: Bariatric Surgery, Orthopedic Surgery Additional Past Surgical History / Comment(s): Left inner Forearm-metal plate Past Anesthesia/Blood Transfusion Reactions: No Reported Reaction Past Psychological History: Anxiety, Bipolar, Depression, PTSD Smoking Status: Current every day smoker Past Alcohol Use History: Abuse, Heavy Past Drug Use History: Cocaine, Heroin, Marijuana - Past Family History Mother Family Medical History: Hypertension Additional Family Medical History / Comment(s): Lupus Medications and Allergies Home Medications Medication Instructions Recorded Confirmed Type Budesonide/Formoterol Fumarate 1 puff INHALATION DIRECTED 04/18/17 05/31/18 History [Symbicort 160-4.5 Mcg Inhaler] Albuterol Inhaler [Ventolin Hfa 1 - 2 puff INHALATION RT-Q6H PRN 04/21/17 History Inhaler] Albuterol Nebulized [Ventolin 2.5 mg INHALATION RT-QID PRN nebu 10/02/17 05/31/18 Rx Nebulized] Lisinopril [Zestril] 20 mg PO DIRECTED 03/03/18 05/31/18 History lamoTRIgine [LaMICtal] 100 mg PO DIRECTED 03/03/18 05/31/18 History Acamprosate Calcium [Campral] 333 mg PO TID 30 Days #90 tablet. 06/05/18 Rx Ipratropium-Albuterol Nebulize 3 ml INHALATION RT-QID PRN 06/05/18 Rx [Duoneb 0.5 mg-3 mg/3 ml Soln] ampul.neb Naltrexone HCl [Revia] 50 mg PO 2100 30 Days #30 tab 06/05/18 Rx Paliperidone [Invega] 3 mg PO 2100 30 Days #30 tab.er.24 06/05/18 Rx Sulfamethox-Tmp 800-160Mg [Bactrim 1 each PO BID 10 Days #20 tab 06/05/18 Rx DS 800-160 mg] Venlafaxine HCl ER [Effexor XR] 150 mg PO 2100 30 Days #30 06/05/18 Rx cap.er.24h lamoTRIgine [LaMICtal] 100 mg PO 2100 30 Days #30 tab 06/05/18 Rx Allergies Allergy/AdvReac Type Severity Reaction Status Date / Time No Known Allergies Allergy Verified 05/18/19 15:20 Physical Exam Vitals: Vital Signs Temp Pulse Pulse Resp BP BP Pulse Ox 05/19/19 05:21 97.6 F 71 18 160/96 97 05/19/19 03:46 70 18 153/88 95 05/19/19 00:37 77 16 125/73 96 Constitutional: No acute distress, conversant, pleasant Eyes: Anicteric sclerae, moist conjunctiva, no lid-lag Pupils equal round reactive to light ENMT: NC/AT Oropharynx clear, no erythema, exudates Neck: Supple, FROM, no masses, or JVD No carotid bruits No thyromegaly Lungs: Clear to auscultation Clear to percussion Normal respiratory effort, no accessory muscle use Cardiovascular: Heart regular in rate and rhythm, No murmurs, gallops, or rubs No peripheral edema Abdominal: Soft Nontender, no guarding, rebound or rigidity Abdomen moving with respiration Normoactive bowel sounds No hepatomegaly, No splenomegaly No palpable mass No abdominal wall hernia noted Skin: Normal temperature, tone, texture, turgor No induration No subcutaneous nodules No rash, lesions No ulcers Extremities: No digital cyanosis No clubbing Pedal pulses intact and symmetrical Radial pulses intact and symmetrical No calf tenderness Psychiatric: Alert and oriented to person, place and time Depressed affect Poor judgement Neuro Muscles Strength 5/5 in all 4 extremities Sensation to light touch grossly present throughout Cranial nerves II-XII grossly intact No focal sensory deficits Lymphatics: no palpable cervical or supraclavicular , or inguinal lymph nodes Cranial Nerve Examination - Cranial Nerves Cranial Nerve II- Optic: Intact Cranial Nerve III- Oculomotor: Intact Cranial Nerve IV- Trochlear: Intact Cranial Nerve V- Trigeminal: Intact Cranial Nerve - Abducens: Intact Cranial Nerve VII- Facial: Intact Cranial Nerve VIII- Auditory: Intact Cranial Nerve IX- Glossopharyngeal: Intact Cranial Nerve X- Vagus: Intact Cranial Nerve XI- Accessory: Intact Cranial Nerve XII- Hypoglossal: Intact Assessment and Plan Assessment: 53-year-old male with history of hypertension COPD history of schizophrenia and bipolar admitted due to suicidal ideation patient is homeless currently has no physical complaints denies any trouble breathing or chest pain Plan: Suicidal ideation PTSD Bipolar disorder Management per psych Hypertension currently controlled Resume home meds Patient noncompliance with home meds COPD without exacerbation currently stable and compensated Resume inhalers Noncompliance with medications DVT prophylaxis patient low risk patient ambulatory Thank you for allowing us to participate in the care of this patient. We will follow peripherally. Do not hesitate to contact us with questions. Someone can be reached from the [facility] [place] hospitalist group at all hours of the day at [phone].
[2019-05-20] MEDS: SYMBICORT 160-4.5 MCG INHALER INHALATION SCH (08:00)
[2019-05-20 08:12] LABS: Basophils # (A) 0.1 k/uL (0-0.2); Basophils % (A) 1 %; Eosinophils # (A) 0.3 k/uL (0-0.7); Eosinophils % (A) 4 %; HCT 41.2 % (39.0-53.0); HGB 13.2 gm/dL (13.0-17.5); Lymphocytes # (A) 1.8 k/uL (1.0-4.8); Lymphocytes % (A) 26 %; MCH 31.2 pg (25.0-35.0); MCHC 32.1 g/dL (31.0-37.0); MCV 97.1 fL (80.0-100.0); Monocytes # (A) 0.4 k/uL (0-1.0); Monocytes % (A) 5 %; Neutrophils # (A) 4.2 k/uL (1.3-7.7); Neutrophils % (A) 60 %; Platelet Count 304 k/uL (150-450); RBC 4.24 m/uL (4.30-5.90); RDW 13.6 % (11.5-15.5); WBC 6.9 k/uL (3.8-10.6)
[2019-05-20 08:13] LABS: ALT 23 U/L (21-72); AST 28 U/L (17-59); African American GFR (CKD) >90 (>60 ml/min/1.73 sqM); Albumin 3.7 g/dL (3.5-5.0); Alkaline Phosphatase 70 U/L (38-126); Anion Gap 5 mmol/L; Bilirubin, Delta 0.1 mg/dL (0.0-0.2); Bilirubin,Unconjugated 0.8 mg/dL (0.0-1.1); Blood Urea Nitrogen 19 mg/dL (9-20); Calcium 9.1 mg/dL (8.4-10.2); Carbon Dioxide 28 mmol/L (22-30); Chloride 107 mmol/L (98-107); Cholesterol 152 mg/dL (<200); Glucose 95 mg/dL (74-99); HDL Cholesterol 45 mg/dL (40-60); LDL Cholesterol,Calculated 94 mg/dL (0-99); Potassium 3.9 mmol/L (3.5-5.1); Sodium 140 mmol/L (137-145); Total Bilirubin 0.9 mg/dL (0.2-1.3); Total Protein 6.6 g/dL (6.3-8.2); Triglycerides 66 mg/dL (<150)
[2019-05-20] MEDS: MULTIVITAMINS, THERA 1 EACH TAB PO SCH (10:48)
[2019-05-20] MEDS: LISINOPRIL 20 MG TAB PO SCH (10:48)
[2019-05-20] MEDS: lamoTRIgine 100 MG TAB PO SCH ×2 (10:48→21:04)
[2019-05-20] MEDS: DULoxetine HCL 30 MG CAPSULE.DR PO SCH (10:48)
[2019-05-20] MEDS: LORazepam 1 MG TAB PO PRN (10:52)
[2019-05-20] MEDS: SYMBICORT 160-4.5 MCG INHALER (BULK) INHALATION SCH ×2 (12:00→21:06)
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
[2019-05-20 17:38] LABS: Hemoglobin A1C 6.3 % (4.0-6.0)
[2019-05-20] MEDS: OLANZapine 5 MG TAB PO SCH (21:04)
[2019-05-21] MEDS: lamoTRIgine 100 MG TAB PO SCH ×2 (09:16→21:28)
[2019-05-21] MEDS: SYMBICORT 160-4.5 MCG INHALER (BULK) INHALATION SCH ×2 (09:16→20:29)
[2019-05-21] MEDS: MULTIVITAMINS, THERA 1 EACH TAB PO SCH (09:16)
[2019-05-21] MEDS: DULoxetine HCL 60 MG CAPSULE.DR PO SCH (09:16)
[2019-05-21] MEDS: LISINOPRIL 20 MG TAB PO SCH (09:16)
[2019-05-21] MEDS: LORazepam 1 MG TAB PO PRN (09:16)
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
[2019-05-21] MEDS: OLANZapine 5 MG TAB PO SCH (21:28)
[2019-05-22] MEDS: SYMBICORT 160-4.5 MCG INHALER (BULK) INHALATION SCH ×2 (09:24→20:19)
[2019-05-22] MEDS: LORazepam 1 MG TAB PO PRN (09:26)
[2019-05-22] MEDS: MULTIVITAMINS, THERA 1 EACH TAB PO SCH (09:26)
[2019-05-22] MEDS: DULoxetine HCL 60 MG CAPSULE.DR PO SCH (09:26)
[2019-05-22] MEDS: LISINOPRIL 20 MG TAB PO SCH (09:26)
[2019-05-22] MEDS: lamoTRIgine 100 MG TAB PO SCH ×2 (09:26→20:19)
--- NOTE | 2019-05-22 11:53 | P.PN ---
Progress Note - Text Progress Note Date: 05/22/19 Interval History: Patient was seen this morning after group and was agreeable to speak to bid writer in the office. Patient is continuing to show mild improvement with regards his preoccupation about the girl who is manipulating him. He states that he has no overnight complaints and claims to be doing well on the unit and has been interacting more with other patients. He states that his depression and anxiety are mildly improving on the current medications and denies any suicidal thoughts at this time. Patient does remain somewhat anxious/worried about where he will go once he leaves the hospital. He states that he slept better last night on the current medications. Patient states that he again was trying to talk to his mother however was not able to get a hold of her. At this time patient denies any suicidal or homical ideations, intent or plan. Patient denies any auditory, visual hallucinations. Patient continues to endorse well-formed delusion. Patient denies any side effects from the medications and has been compliant with meds. Mental Status Exam: General Appearance: Patient appears to be stated age is alert, attempts to be cooperative. Patient has a long house and has improving hygiene and grooming. Behavior: Patient is calmly seated without any agitated behavior. Speech: Patient's speech is fluent and nonpressured. Mood/Affect: Patient reports their mood is depressed, affect is congruent and constricted. Suicidality/Homicidality: Patient denies having any suicidal or homicidal ideation intent or plan. Perceptions: Patient denies any auditory or visual hallucinations. Though content/process: Patient has a well-formed delusion about it impostor and persecutions towards him. Patient is less preoccupied with it today. Memory and concentration: AOX3, grossly intact for the purposes of this session. Judgment and insight: poor/impulsive, improving mildly. Assessment Bipolar disorder unspecified Delusional disorder Alcohol abuse Cocaine dependence Plan: -Patient continues to meet criteria for inpatient psychiatric admission for symptom stabilization and safety. Patient has signed adult voluntary form and medication consent and was placed in patient's chart. -Medications: We'll continue with Zyprexa 5 mg nightly for mood stabilization/psychosis. Continue Lamictal 100 mg twice a day for mood stabilization. We'll continue with Cymbalta to 60 mg daily for mood/pain. Vistaril if needed for anxiety. -When necessary Geodon and Ativan for agitation/aggression. -NRT -Nicorette gum -SW on board for discharge planning. Patient is currently homeless and will likely go to a senior living upon discharge. Snapper On attempted to call patient's mother once again [phone] for further collateral information, no answer left a voicemail.
[2019-05-22] MEDS: OLANZapine 5 MG TAB PO SCH (20:19)
[2019-05-23] MEDS: SYMBICORT 160-4.5 MCG INHALER (BULK) INHALATION SCH ×2 (08:46→21:02)
[2019-05-23] MEDS: MULTIVITAMINS, THERA 1 EACH TAB PO SCH (08:46)
[2019-05-23] MEDS: DULoxetine HCL 60 MG CAPSULE.DR PO SCH (08:46)
[2019-05-23] MEDS: LISINOPRIL 20 MG TAB PO SCH (08:47)
[2019-05-23] MEDS: lamoTRIgine 100 MG TAB PO SCH ×2 (08:47→21:02)
[2019-05-23] MEDS: LORazepam 1 MG TAB PO PRN ×2 (08:49→21:03)
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
[2019-05-23] MEDS: OLANZapine 5 MG TAB PO SCH (21:02)
[2019-05-24 07:01] VITALS: TEMP 97.6
[2019-05-24] MEDS: MULTIVITAMINS, THERA 1 EACH TAB PO SCH (07:53)
[2019-05-24] MEDS: SYMBICORT 160-4.5 MCG INHALER (BULK) INHALATION SCH ×2 (07:53→20:53)
[2019-05-24] MEDS: DULoxetine HCL 60 MG CAPSULE.DR PO SCH (07:53)
[2019-05-24] MEDS: lamoTRIgine 100 MG TAB PO SCH ×2 (07:53→20:52)
[2019-05-24] MEDS: LISINOPRIL 20 MG TAB PO SCH (07:53)
[2019-05-24] MEDS: LORazepam 1 MG TAB PO PRN ×2 (07:54→16:23)
--- NOTE | 2019-05-24 19:17 | P.PN ---
Progress Note - Text Progress Note Date: 05/24/19 IDENTIFICATION DATA: 53-year-old male admitted to [facility] voluntarily with symptoms of depression and suicidal ideations INTERVAL HISTORY: He states his medications have been working very well for him. He says his mood has been lifted and is able to think well. Reports he is able to plan about the things he should do when he leaves the hospital. He reports good sleep and appetite. Going to all his assigned groups. No side effects from medications. MENTAL STATUS EXAMINATION: 53 year old male. Appears stated age in fair grooming and hygiene. speech and thought process are goal directed. mood is reported as good and affect constricted. denies current auditory hallucinations and visual hallucinations. Denies paranoid ideations. Denies suicidal and homicidal ideations. is alert and oriented x 4. insight and judgement are improving. Assessment Unspecified psychotic disorder rule out schizophrenia PLAN: Zyprexa 5 mg nightly for mood stabilization/psychosis. Continue Lamictal 100 mg twice a day for mood stabilization. Cymbalta to 60 mg daily for mood/pain. Vistaril PRN for anxiety.
[2019-05-24] MEDS: OLANZapine 5 MG TAB PO SCH (20:52)
[2019-05-25] MEDS: MULTIVITAMINS, THERA 1 EACH TAB PO SCH (08:20)
[2019-05-25] MEDS: lamoTRIgine 100 MG TAB PO SCH ×2 (08:20→21:07)
[2019-05-25] MEDS: SYMBICORT 160-4.5 MCG INHALER (BULK) INHALATION SCH ×2 (08:20→21:07)
[2019-05-25] MEDS: LISINOPRIL 20 MG TAB PO SCH (08:20)
[2019-05-25] MEDS: DULoxetine HCL 60 MG CAPSULE.DR PO SCH (08:21)
[2019-05-25] MEDS: LORazepam 1 MG TAB PO PRN ×2 (08:22→18:39)
--- NOTE | 2019-05-25 18:04 | P.PN ---
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 He reports doing well. He reports getting well with his peers and staff. No behavioral probelms. He reports good sleep and appetite. Tolerating his medications well with no side effects. He says zyprexa has been helping him a lot and claims to have been sleeping way better than before MENTAL STATUS EXAMINATION: 53 year old male. Appears stated age in fair grooming and hygiene. speech and thought process are goal directed. mood is reported as good and affect constricted. denies current auditory hallucinations and visual hallucinations. Denies paranoid ideations. Denies suicidal and homicidal ideations. is alert and oriented x 4. insight and judgement are improving. Assessment Unspecified psychotic disorder rule out schizophrenia PLAN: Zyprexa 5 mg nightly for mood stabilization/psychosis. Continue Lamictal 100 mg twice a day for mood stabilization. Cymbalta to 60 mg daily for mood/pain. Vistaril PRN for anxiety.
[2019-05-25] MEDS: OLANZapine 5 MG TAB PO SCH (21:07)
[2019-05-26] MEDS: LORazepam 1 MG TAB PO PRN ×2 (00:19→09:04)
[2019-05-26 00:20] VITALS: RESP 16
[2019-05-26] MEDS: SYMBICORT 160-4.5 MCG INHALER (BULK) INHALATION SCH (09:02)
[2019-05-26] MEDS: DULoxetine HCL 60 MG CAPSULE.DR PO SCH (09:04)
[2019-05-26] MEDS: lamoTRIgine 100 MG TAB PO SCH (09:04)
[2019-05-26] MEDS: LISINOPRIL 20 MG TAB PO SCH (09:04)
[2019-05-26] MEDS: MULTIVITAMINS, THERA 1 EACH TAB PO SCH (09:04)
--- NOTE | 2019-05-26 10:21 | P.DS ---
Providers Date of admission: 05/19/19 03:33 Expected date of discharge: 05/26/19 Attending physician: Evan Mosqueda MD Consults: 05/19/19 04:21 Consult Physician Routine Consulting Provider: Dory Moncada Consult Reason/Comments: H&P, medical management Do you want consulting provider notified?: Yes, Notify in am Primary care physician: Stated None - Discharge Diagnosis(es) (1) Delusional disorder Current Visit: Yes Status: Acute Priority: Medium (2) Alcohol abuse Current Visit: Yes Status: Acute Priority: Medium (3) Cocaine use disorder Current Visit: Yes Status: Acute Priority: Medium (4) Nicotine dependence Current Visit: Yes Status: Acute Priority: Low (5) Bipolar disorder with depression Current Visit: Yes Status: Acute Priority: High Hospital Course: Admission HPI: Patient is a 53-year-old male who is currently homeless and has 3 kids in a single and currently collects Social Security. Patient presented to the hospital after being suicidal and presenting with the police. As per ED report, patient arrived at the train station coming from [place] to meet his girlfriend who did not show up to pick him up. Patient then went to different restaurants and tried to check into different motels and started drinking whiskey before coming into the hospital with suicidal ideations. Patient was placed on security one-to-one coming onto the unit as he was aggressive and intoxicated however patient was agreeable to be interviewed today. Patient states that she is having significant problems with this particular girl who he was trying to meet as he was stating that "she's been messing with me in all parts of my life" and states that "she thinks it's even funny". He claims that this girl is posing as Lina who is his girlfriend and has been able to access her phone and has even called the motels and hotels in the area and has "blocked me from getting in". Patient also spoke about this impostor taking money from his account and "messing with my family". He states that he is been filing different reports with the police and also to report with the FBI that have not been followed up according to patient. Patient claims that she has been taking his medications and was following up in [place] with a psychiatrist. He states at this time that he is depressed and having passive suicidal ideations with no plan. Patient claims that he is having mild anxiety and poor sleep. Patient is endorsing paranoia at this time. He is denying any homicidal ideations. He denies any auditory or visual hallucinations. Patient admits to previously abusing alcohol and has been sober for over a year however most recently drank 1 L of whiskey before coming into the hospital. Patient denies any other recreational drug use. He states that he smokes cigarettes approximately 1 pack per day Hospital course: Upon admission to the unit patient was initially delusional, irritable and anxious/depressed. Patient was however directable and agreeable to commence treatment. Patient got along well with other patients on the unit and followed unit protocol. Patient was compliant with the medications and denied any side effects throughout hospital course. Patient was started on Zyprexa 5 mg nightly for mood stabilization/psychosis, Lamictal titrated up to 150 mg daily for mood stabilization/depression, Cymbalta titrated up to 60 mg daily for mood/pain, Vistaril when needed for anxiety. Patient spoke of his stressors and engaged in therapy both group and individual. Patient was also seen by medical team for history and physical exam. Throughout the course of the hospitalization patient gradually improved with regards to his delusions, mood, anxiety, sleep and pain and became future oriented with improved insight and judgment. On the day of discharge patient denied any suicidal or homicidal ideations intent or plan denied any auditory or visual hallucinations. Patient endorsed wanting to live for his health and future. The patient denied any access to guns or weapons. Patient denied any paranoia and did not endorse any delusions. Patient does have a significant history of substance abuse and was counseled on abstaining from all substances including alcohol and marijuana. Patient declined wanting to go to substance abuse rehab at this time. Patient was also counseled on the medications and need for regular compliance and was encouraged to follow-up with their outpatient appointment for mental health and also for primary care. Mental status exam: General Appearance: Patient appears to be stated age is alert, directable and cooperative. Patient is in no acute distress and has fair hygiene and grooming Behavior: Patient is calmly seated without any agitated behavior. Speech: Patient's speech is fluent and nonpressured. Mood/Affect: Patient reports their mood is "better", affect is congruent and euthymic. Suicidality/Homicidality: Patient denies having any suicidal or homicidal ideation intent or plan. Perceptions: Patient denies any auditory or visual hallucinations. Though content/process: There is no evidence of any delusional thought content and thought process is linear and goal-directed. Memory and concentration: AOX3, grossly intact for the purposes of this session. Can spell "WORLD" backwards correctly. Judgment and insight: fair, improved Impression: Bipolar disorder, depressed Delusional disorder Alcohol abuse Cocaine use disorder Nicotine dependence Plan: -Continue with discharge today as patient has improved and stabilized psychiatrically and is not currently an imminent threat to himself and/or others. -Continue medications: Zyprexa 5 mg nightly for mood stabilization/psychosis, Lamictal 150 mg daily for mood stabilization/depression, Cymbalta 60 mg daily for mood/pain, Vistaril when needed for anxiety. -Patient was counseled on the need for medication compliance and appropriate follow-up at mental health and also primary care for medical issues. Patient verbalized understanding and agreed. -Social work also to arrange for patients follow up appointments with psychiatric care along with follow up with primary care provider. clam bed worker to assist patient with trying to coordinate with payee to allow patient to have more money to afford a place to live. Patient to go to the retirement in the interim. -Patient counseled on abstaining from recreational drugs and marijuana and alcohol. Was informed/educated on the adverse effects on their physical and mental health. Patient verbally agreed and understood -Patient was instructed to return to the hospital or seek immediate medical care if their psychiatric or medical systems do worsen or reoccur. Allergies Allergy/AdvReac Type Severity Reaction Status Date / Time No Known Allergies Allergy Verified 05/20/19 00:32 Allergies Allergy/AdvReac Type Severity Reaction Status Date / Time No Known Allergies Allergy Verified 05/20/19 00:32 Laboratory Results WBC 6.9 k/uL (3.8-10.6) 05/20/19 07:49 RBC 4.24 m/uL (4.30-5.90) L 05/20/19 07:49 Hgb 13.2 gm/dL (13.0-17.5) 05/20/19 07:49 Hct 41.2 % (39.0-53.0) 05/20/19 07:49 MCV 97.1 fL (80.0-100.0) 05/20/19 07:49 MCH 31.2 pg (25.0-35.0) 05/20/19 07:49 MCHC 32.1 g/dL (31.0-37.0) 05/20/19 07:49 RDW 13.6 % (11.5-15.5) 05/20/19 07:49 Plt Count 304 k/uL (150-450) 05/20/19 07:49 Neutrophils % 60 % 05/20/19 07:49 Lymphocytes % 26 % 05/20/19 07:49 Monocytes % 5 % 05/20/19 07:49 Eosinophils % 4 % 05/20/19 07:49 Basophils % 1 % 05/20/19 07:49 Neutrophils # 4.2 k/uL (1.3-7.7) 05/20/19 07:49 Lymphocytes # 1.8 k/uL (1.0-4.8) 05/20/19 07:49 Monocytes # 0.4 k/uL (0-1.0) 05/20/19 07:49 Eosinophils # 0.3 k/uL (0-0.7) 05/20/19 07:49 Basophils # 0.1 k/uL (0-0.2) 05/20/19 07:49 Sodium 140 mmol/L (137-145) 05/20/19 07:49 Potassium 3.9 mmol/L (3.5-5.1) 05/20/19 07:49 Chloride 107 mmol/L (98-107) 05/20/19 07:49 Carbon Dioxide 28 mmol/L (22-30) 05/20/19 07:49 Anion Gap 5 mmol/L 05/20/19 07:49 BUN 19 mg/dL (9-20) 05/20/19 07:49 Creatinine 0.56 mg/dL (0.66-1.25) L 05/20/19 07:49 Est GFR (CKD-EPI)AfAm >90 (>60 ml/min/1.73 sqM) 05/20/19 07:49 Est GFR (CKD-EPI)NonAf >90 (>60 ml/min/1.73 sqM) 05/20/19 07:49 Glucose 95 mg/dL (74-99) 05/20/19 07:[address] Glu mg/dL 134 05/20/19 07:49 Hemoglobin A1c 6.3 % (4.0-6.0) H 05/20/19 07:49 Calcium 9.1 mg/dL (8.4-10.2) 05/20/19 07:49 Total Bilirubin 0.9 mg/dL (0.2-1.3) 05/20/19 07:49 Conjugated Bilirubin 0.0 mg/dL (0.0-0.3) 05/20/19 07:49 Unconjugated Bilirubin 0.8 mg/dL (0.0-1.1) 05/20/19 07:49 Delta Bilirubin 0.1 mg/dL (0.0-0.2) 05/20/19 07:49 AST 28 U/L (17-59) 05/20/19 07:49 ALT 23 U/L (21-72) 05/20/19 07:49 Alkaline Phosphatase 70 U/L (38-126) 05/20/19 07:49 Total Protein 6.6 g/dL (6.3-8.2) 05/20/19 07:49 Albumin 3.7 g/dL (3.5-5.0) 05/20/19 07:49 Triglycerides 66 mg/dL (<150) 05/20/19 07:49 Cholesterol 152 mg/dL (<200) 05/20/19 07:49 LDL Cholesterol, Calc 94 mg/dL (0-99) 05/20/19 07:49 HDL Cholesterol 45 mg/dL (40-60) 05/20/19 07:49 TSH 1.910 mIU/L (0.465-4.680) 05/20/19 07:49 Vital Signs Temp 97.6 F 05/24/19 07:01 Pulse 83 05/26/19 00:20 Resp 16 05/26/19 00:20 BP 164/104 05/26/19 00:20 Pulse Ox 98 05/22/19 09:28 Intake & Output 05/25/19 05/26/19 05/26/19 18:59 06:59 18:59 Weight 81.6 kg Patient Condition at Discharge: Stable Plan - Discharge Summary Discharge Rx Participant: No New Discharge Prescriptions: New DULoxetine HCL [Cymbalta] 60 mg PO DAILY 28 Days capsule.dr lamoTRIgine [LaMICtal] 100 mg PO BID 28 Days tab Multivitamins, Thera [Multivitamin (formulary)] 1 each PO DAILY 28 Days tab Nicotine Polacrilex [Nicorette] 2 mg BUCCAL Q4HR PRN 14 Days gum PRN Reason: Nicotine Cravings Budesonide-Formot 160-4.5 Mcg [Symbicort 160-4.5 Mcg Inhaler (Bulk)] 2 puff INHALATION RT-BID #2 puff Lisinopril [Zestril] 20 mg PO DAILY 28 Days tab OLANZapine [ZyPREXA] 5 mg PO HS 28 Days tab Continue Albuterol Inhaler [Ventolin Hfa Inhaler] 1 - 2 puff INHALATION RT-Q6H PRN #2 puff PRN Reason: Shortness Of Breath Discontinued Budesonide/Formoterol Fumarate [Symbicort 160-4.5 Mcg Inhaler] 1 puff INHALATION DIRECTED Albuterol Nebulized [Ventolin Nebulized] 2.5 mg INHALATION RT-QID PRN nebu PRN Reason: Shortness Of Breath Or Wheezing lamoTRIgine [LaMICtal] 100 mg PO DIRECTED Lisinopril [Zestril] 20 mg PO DIRECTED Acamprosate Calcium [Campral] 333 mg PO TID 30 Days #90 tablet. Ipratropium-Albuterol Nebulize [Duoneb 0.5 mg-3 mg/3 ml Soln] 3 ml INHALATION RT-QID PRN ampul.neb PRN Reason: Shortness Of Breath Or Wheezing lamoTRIgine [LaMICtal] 100 mg PO 2099 30 Days #30 tab Naltrexone HCl [Revia] 50 mg PO 2099 30 Days #30 tab Paliperidone [Invega] 3 mg PO 2099 30 Days #30 tab.er.24 Sulfamethox-Tmp 800-160Mg [Bactrim DS 800-160 mg] 1 each PO BID 10 Days #20 tab Venlafaxine HCl ER [Effexor XR] 150 mg PO 2100 30 Days #30 cap.er.24h Discharge Medication List Albuterol Inhaler [Ventolin Hfa Inhaler] 1 - 2 puff INHALATION RT-Q6H PRN #2 puff 05/26/19 [Rx] Budesonide-Formot 160-4.5 Mcg [Symbicort 160-4.5 Mcg Inhaler (Bulk)] 2 puff INHALATION RT-BID #2 puff 05/26/19 [Rx] DULoxetine HCL [Cymbalta] 60 mg PO DAILY 28 Days capsule. 05/26/19 [Rx] Lisinopril [Zestril] 20 mg PO DAILY 28 Days tab 05/26/19 [Rx] Multivitamins, Thera [Multivitamin (formulary)] 1 each PO DAILY 28 Days tab 05/26/19 [Rx] Nicotine Polacrilex [Nicorette] 2 mg BUCCAL Q4HR PRN 14 Days gum 05/26/19 [Rx] OLANZapine [ZyPREXA] 5 mg PO HS 28 Days tab 05/26/19 [Rx] lamoTRIgine [LaMICtal] 100 mg PO BID 28 Days tab 05/26/19 [Rx] Follow up Appointment(s)/Referral(s): None,Stated [Primary Care Provider] - 1-2 days Discharge Disposition: HOME SELF-CARE
[2019-05-26 14:15] VITALS: BP 139/85; PULSE 97
== END 2019-05-26 17:07 | disposition home or self-care (01) | DRG 885 ==
LOC: EC 15:04 → 3MHU 05-19 02:10 → UNDOADMIN 05-19 02:10 → 3MHU 05-19 03:33
PROVIDERS: ADMIT Psychiatry & Neurology Psychiatry; ATTEND Psychiatry & Neurology Psychiatry
DX: F31.30 Bipolar disorder, current episode depressed, mild or moderate severity, unspecified (principal); R45.851 Suicidal ideations; F22 Delusional disorders; F17.210 Nicotine dependence, cigarettes, uncomplicated; F43.10 Post-traumatic stress disorder, unspecified; I10 Essential (primary) hypertension; K21.9 Gastro-esophageal reflux disease without esophagitis; K58.9 Irritable bowel syndrome, unspecified; M41.9 Scoliosis, unspecified; Z59.0 Homelessness; Z79.51 Long term (current) use of inhaled steroids; Z79.899 Other long term (current) drug therapy; Z81.1 Family history of alcohol abuse and dependence; Z82.49 Family history of ischemic heart disease and other diseases of the circulatory system; Z87.442 Personal history of urinary calculi; Z98.84 Bariatric surgery status
CPT/HCPCS: 80053; 80061; 82075; 82248; 83036; 84443; 85025; 96372; 99285

== ENCOUNTER 2019-05-28 14:39 | Emergency (ER) | payer MEDICARE, OTHER ==
[2019-05-28 14:44] VITALS: RESP 18; TEMP 98
--- NOTE | 2019-05-28 15:04 | ED ---
Psych HPI - General Source: patient, police, EMS, RN notes reviewed Mode of arrival: EMS - History of Present Illness MD Complaint: suicidal ideation, feels depressed, other <Harjinder Sands - Last Filed: 05/28/19 16:42> <Kiya Pichardo - Last Filed: 05/29/19 05:44> - General Chief Complaint: Psychiatric Symptoms Stated Complaint: ETOH Time Seen by Provider: 05/28/19 14:40 - History of Present Illness Initial Comments: This is a 53-year-old male history depression and alcohol abuse who was brought in by EMS today because of feeling suicidal and depressed. He does admit to drinking a lot of alcohol today. States he misses his son and his son's mother. He does not have any particular plan though he does feel suicidal. Easily admitted for inpatient treatment of depression. No other modifying factors at this time (Harjinder Sands) - Related Data Home Medications Medication Instructions Recorded Confirmed Multivitamins, Thera [Multivitamin 1 tab PO DAILY 05/28/19 05/28/19 (formulary)] Previous Rx's Medication Instructions Recorded Albuterol Inhaler [Ventolin Hfa 1 - 2 puff INHALATION RT-Q6H PRN 05/26/19 Inhaler] #2 puff Budesonide-Formot 160-4.5 Mcg 2 puff INHALATION RT-BID #2 puff 05/26/19 [Symbicort 160-4.5 Mcg Inhaler (Bulk)] DULoxetine HCL [Cymbalta] 60 mg PO DAILY 28 Days capsule. 05/26/19 Lisinopril [Zestril] 20 mg PO DAILY 28 Days tab 05/26/19 Nicotine Polacrilex [Nicorette] 2 mg BUCCAL Q4HR PRN 14 Days gum 05/26/19 OLANZapine [ZyPREXA] 5 mg PO HS 28 Days tab 05/26/19 lamoTRIgine [LaMICtal] 100 mg PO BID 28 Days tab 05/26/19 Allergies Allergy/AdvReac Type Severity Reaction Status Date / Time No Known Allergies Allergy Verified 05/28/19 15:25 Review of Systems ROS Other: All systems not noted in ROS Statement are negative. <Harjinder Sands - Last Filed: 05/28/19 16:42> ROS Other: All systems not noted in ROS Statement are negative. <Kiya Pichardo - Last Filed: 05/29/19 05:44> ROS Statement: Those systems with pertinent positive or pertinent negative responses have been documented in the HPI. Past Medical History Past Medical History: GERD/Reflux, Hypertension, Musculoskeletal Disorder, Pneumonia Additional Past Medical History / Comment(s): GI Bleed, kidney stones, degenerative disc disease in lower back and neck, kyphosis and scoliosis, ETOH abuse. IBS History of Any Multi-Drug Resistant Organisms: None Reported Past Surgical History: Bariatric Surgery, Orthopedic Surgery Additional Past Surgical History / Comment(s): Left inner Forearm-metal plate Past Anesthesia/Blood Transfusion Reactions: No Reported Reaction Past Psychological History: Anxiety, Bipolar, Depression, PTSD Smoking Status: Current every day smoker Past Alcohol Use History: Abuse, Heavy Past Drug Use History: Cocaine, Heroin, Marijuana - Past Family History Mother Family Medical History: Hypertension Additional Family Medical History / Comment(s): Lupus <Harjinder Sands - Last Filed: 05/28/19 16:42> General Exam Limitations: no limitations General appearance: alert, appears intoxicated, anxious Head exam: Present: atraumatic, normocephalic, normal inspection Eye exam: Present: normal appearance, PERRL, EOMI. Absent: scleral icterus, conjunctival injection, periorbital swelling ENT exam: Present: normal exam, mucous membranes moist Neck exam: Present: normal inspection. Absent: tenderness, meningismus, lymphadenopathy Respiratory exam: Present: normal lung sounds bilaterally. Absent: respiratory distress, wheezes, rales, rhonchi, stridor Cardiovascular Exam: Present: regular rate, normal rhythm, normal heart sounds. Absent: systolic murmur, diastolic murmur, rubs, gallop, clicks GI/Abdominal exam: Present: soft, normal bowel sounds. Absent: distended, tenderness, guarding, rebound, rigid Extremities exam: Present: normal inspection, full ROM, normal capillary refill. Absent: tenderness, pedal edema, joint swelling, calf tenderness Back exam: Present: normal inspection Neurological exam: Present: alert, oriented X3, CN II-XII intact Psychiatric exam: Present: depressed, flat affect, suicidal ideation Skin exam: Present: warm, dry, intact, normal color. Absent: rash <Harjinder Sands - Last Filed: 05/28/19 16:42> - General Exam Comments Initial Comments: Is a well-developed asthenic appearing male was awake alert oriented x3 does have the smell of alcohol conjoiners on his breath (Harjinder Sands) Course <WichoHarjinder - Last Filed: 05/28/19 16:42> Vital Signs 05/28/19 05/28/19 05/28/19 14:42 15:00 18:00 Temperature 98.0 F Pulse Rate 70 62 72 Respiratory 18 18 18 Rate Blood Pressure 117/77 110/68 91/54 O2 Sat by Pulse 98 100 97 Oximetry - Reevaluation(s) Reevaluation #1: 05/28/19 16:42 The patient's care is endorsed to Dr. Cole at our shift change. Patient is pending sobriety and psychiatric evaluation (Harjinder Sands) Medical Decision Making <Kiya Pichardo - Last Filed: 05/29/19 05:44> - Medical Decision Making Patient care is signed out to me by Dr. Cole. Patient had presented intoxicated making passive suicidal statements. Upon sobriety the patient was evaluated by the emergency psychiatric services nurse, decision was made the patient was safe for discharge home. Patient contracted to safety, patient is tablets with [facility]. Patient will be discharged (Kiya Pichardo) - Lab Data Lab Results 05/28/19 Range/Units 18:30 Urine Opiates Screen Not Detected (NotDetected) Ur Oxycodone Screen Not Detected (NotDetected) Urine Methadone Screen Not Detected (NotDetected) Ur Propoxyphene Screen Not Detected (NotDetected) Ur Barbiturates Screen Not Detected (NotDetected) U Tricyclic Antidepress Not Detected (NotDetected) Ur Phencyclidine Scrn Not Detected (NotDetected) Ur Amphetamines Screen Not Detected (NotDetected) U Methamphetamines Scrn Not Detected (NotDetected) U Benzodiazepines Scrn Not Detected (NotDetected) Urine Cocaine Screen Not Detected (NotDetected) U Marijuana (THC) Screen Not Detected (NotDetected) Disposition <WichoHarjinder - Last Filed: 05/28/19 16:42> Is patient prescribed a controlled substance at d/c from ED?: No <Kiya Pichardo - Last Filed: 05/29/19 05:44> Clinical Impression: Depression, Alcohol intoxication, Suicidal ideation Disposition: HOME SELF-CARE Condition: Stable Instructions (If sedation given, give patient instructions): Alcohol Intoxication (ED) Referrals: None,Stated [Primary Care Provider] - 1-2 days
[2019-05-28 18:02] VITALS: BP 91/54; PULSE 72
[2019-05-28 19:20] LABS: Amphetamine Screen,Urine Not Detected (NotDetected); Barbiturate Screen,Urine Not Detected (NotDetected); Benzodiazepines Screen,Urine Not Detected (NotDetected); Cocaine Screen,Urine Not Detected (NotDetected); Methadone Screen, Urine Not Detected (NotDetected); Opiate Screen,Urine Not Detected (NotDetected); Oxycodone Screen, Urine Not Detected (NotDetected); Phencyclidine Screen,Urine Not Detected (NotDetected); Tricyclic Antidepressant,Urine Not Detected (NotDetected); Urn Cannabinoid Scrn Not Detected (NotDetected)
== END 2019-05-29 05:54 | disposition home or self-care (01) ==
LOC: EC 14:39
DX: F32.9 Major depressive disorder, single episode, unspecified (principal); F10.129 Alcohol abuse with intoxication, unspecified; R45.851 Suicidal ideations; F41.9 Anxiety disorder, unspecified; F17.200 Nicotine dependence, unspecified, uncomplicated
CPT/HCPCS: 80306; 82075; 99285

== ENCOUNTER 2019-06-03 11:21 | Emergency (ER) | payer MEDICARE ==
[2019-06-03] MEDS ORDERED: LORazepam 1 MG TAB PO STA (11:35)
--- NOTE | 2019-06-03 12:15 | ED ---
General Adult HPI - General Chief complaint: Alcohol Stated complaint: Mental health Time Seen by Provider: 06/03/19 11:45 Source: EMS Mode of arrival: EMS Limitations: no limitations - History of Present Illness Initial comments: The patient is a 53-year-old male with past medical history of alcohol abuse who presents to the emergency department with reported alcohol withdrawal. He states that he has been drinking consistently since he came back to the area in mid-April. States his last drink was in the middle the night. He ordered a case of tall "Ofelia Ferguson" and drank most of it. States he's been drinking daily. Admits to history of withdrawal seizures. No seizures recently. Has been in rehab numerous times. Admits to tremors. Denies any fevers or chills, nausea or vomiting. Denies IV drug use. Does admit to heavy smoking. Admits to depression. Denies any suicidal ideations or homicidal ideations. No hallucinations. There are no other alleviating, precipitating or modifying factors - Related Data Home Medications Medication Instructions Recorded Confirmed Multivitamins, Thera [Multivitamin 1 tab PO DAILY 05/28/19 06/03/19 (formulary)] Previous Rx's Medication Instructions Recorded Albuterol Inhaler [Ventolin Hfa 1 - 2 puff INHALATION RT-Q6H PRN 05/26/19 Inhaler] #2 puff Budesonide-Formot 160-4.5 Mcg 2 puff INHALATION RT-BID #2 puff 05/26/19 [Symbicort 160-4.5 Mcg Inhaler (Bulk)] DULoxetine HCL [Cymbalta] 60 mg PO DAILY 28 Days capsule. 05/26/19 Lisinopril [Zestril] 20 mg PO DAILY 28 Days tab 05/26/19 Nicotine Polacrilex [Nicorette] 2 mg BUCCAL Q4HR PRN 14 Days gum 05/26/19 OLANZapine [ZyPREXA] 5 mg PO HS 28 Days tab 05/26/19 lamoTRIgine [LaMICtal] 100 mg PO BID 28 Days tab 05/26/19 Cephalexin [Keflex] 500 mg PO Q6HR #28 cap 06/03/19 chlordiazePOXIDE HCl [Librium] 25 mg PO QID PRN 3 Days #12 capsule 06/03/19 Allergies Allergy/AdvReac Type Severity Reaction Status Date / Time No Known Allergies Allergy Verified 06/03/19 12:02 Review of Systems ROS Statement: Those systems with pertinent positive or pertinent negative responses have been documented in the HPI. ROS Other: All systems not noted in ROS Statement are negative. Past Medical History Past Medical History: GERD/Reflux, Hypertension, Musculoskeletal Disorder, Pneumonia Additional Past Medical History / Comment(s): GI Bleed, kidney stones, degenerative disc disease in lower back and neck, kyphosis and scoliosis, ETOH abuse. IBS History of Any Multi-Drug Resistant Organisms: None Reported Past Surgical History: Bariatric Surgery, Orthopedic Surgery Additional Past Surgical History / Comment(s): Left inner Forearm-metal plate Past Anesthesia/Blood Transfusion Reactions: No Reported Reaction Past Psychological History: Anxiety, Bipolar, Depression, PTSD Smoking Status: Current every day smoker Past Alcohol Use History: Abuse, Heavy Past Drug Use History: Cocaine, Heroin, Marijuana - Past Family History Mother Family Medical History: Hypertension Additional Family Medical History / Comment(s): Lupus General Exam Limitations: no limitations General appearance: alert, in no apparent distress Head exam: Present: atraumatic, normocephalic, normal inspection Eye exam: Present: normal appearance, PERRL, EOMI. Absent: scleral icterus, conjunctival injection, periorbital swelling ENT exam: Present: normal exam, mucous membranes moist Neck exam: Present: normal inspection. Absent: tenderness, meningismus, lymphadenopathy Respiratory exam: Present: normal lung sounds bilaterally. Absent: respiratory distress, wheezes, rales, rhonchi, stridor Cardiovascular Exam: Present: regular rate, normal rhythm, normal heart sounds. Absent: systolic murmur, diastolic murmur, rubs, gallop, clicks GI/Abdominal exam: Present: soft, normal bowel sounds. Absent: distended, tenderness, guarding, rebound, rigid Extremities exam: Present: normal inspection, full ROM, normal capillary refill. Absent: tenderness, pedal edema, joint swelling, calf tenderness Back exam: Present: normal inspection Neurological exam: Present: alert, oriented X3, CN II-XII intact Psychiatric exam: Present: normal affect, normal mood Skin exam: Present: warm, dry, intact, normal color. Absent: rash Course Vital Signs 06/03/19 06/03/19 06/03/19 11:41 11:45 14:52 Temperature 98.7 F 98.0 F Pulse Rate 100 98 Respiratory 19 18 Rate Blood Pressure 152/110 150/99 148/98 O2 Sat by Pulse 98 96 Oximetry Medical Decision Making - Medical Decision Making On arrival the patient is placed in room 9. A thorough history and physical exam is performed. CBC was unremarkable. CMP shows an AST of 148 and ALT of 95 . Urinalysis shows large leukocyte esterase, greater than 182 white blood cells, many white blood cell clumps many bacteria. Serum alcohol is 156. The patient appears comfortable in the room. No tachycardia. Mild tremor on exam. The patient was given 1 mg of Ativan by mouth. His magnesium was low at 1.6 and therefore I did replace this. I reevaluated the patient. He appears comfortable in the room. He is clinical sober. Tremors have resolved and there is no tachycardia. I discussed diagnosis, differential and treatment options. Patient was given resources for shelters and [place] by the EPS service. I will give the patient a starter pack of Keflex. I also provided him with a prescription for Keflex to be taken 4 times a day for comfort care and UTI. I gave the patient a prescription for Librium. He is to follow-up [facility] for rehab. The patient has any new or worsening symptoms she should return to the emergency room. The patient was discharged home in stable condition - Lab Data Result diagrams: 06/03/19 11:59 06/03/19 11:59 Lab Results 06/03/19 06/03/19 06/03/19 Range/Units 11:59 11:59 14:02 WBC 9.8 (3.8-10.6) k/uL RBC 5.08 (4.30-5.90) m/uL Hgb 15.7 (13.0-17.5) gm/dL Hct 49.1 (39.0-53.0) % MCV 96.6 (80.0-100.0) fL MCH 31.0 (25.0-35.0) pg MCHC 32.1 (31.0-37.0) g/dL RDW 13.8 (11.5-15.5) % Plt Count 282 (150-450) k/uL Neutrophils % 80 % Lymphocytes % 12 % Monocytes % 3 % Eosinophils % 3 % Basophils % 1 % Neutrophils # 7.8 H (1.3-7.7) k/uL Lymphocytes # 1.2 (1.0-4.8) k/uL Monocytes # 0.3 (0-1.0) k/uL Eosinophils # 0.3 (0-0.7) k/uL Basophils # 0.1 (0-0.2) k/uL Sodium 142 (137-145) mmol/L Potassium 4.4 (3.5-5.1) mmol/L Chloride 103 (98-107) mmol/L Carbon Dioxide 27 (22-30) mmol/L Anion Gap 12 mmol/L BUN 8 L (9-20) mg/dL Creatinine 0.51 L (0.66-1.25) mg/dL Est GFR (CKD-EPI)AfAm >90 (>60 ml/min/1.73 sqM) Est GFR (CKD-EPI)NonAf >90 (>60 ml/min/1.73 sqM) Glucose 103 H (74-99) mg/dL Calcium 9.2 (8.4-10.2) mg/dL Magnesium 1.6 (1.6-2.3) mg/dL Total Bilirubin 0.9 (0.2-1.3) mg/dL AST 148 H (17-59) U/L ALT 95 H (21-72) U/L Alkaline Phosphatase 96 (38-126) U/L Total Protein 7.6 (6.3-8.2) g/dL Albumin 4.4 (3.5-5.0) g/dL Urine Color Yellow Urine Appearance Cloudy (Clear) Urine pH 5.5 (5.0-8.0) Ur Specific Fertile 1.013 (1.001-1.035) Urine Protein 1+ H (Negative) Urine Glucose (UA) Negative (Negative) Urine Ketones Trace H (Negative) Urine Blood Small H (Negative) Urine Nitrite Positive (Negative) Urine Bilirubin Negative (Negative) Urine Urobilinogen 2.0 (<2.0) mg/dL Ur Leukocyte Esterase Large H (Negative) Urine RBC 4 (0-5) /hpf Urine WBC >182 H (0-5) /hpf Urine WBC Clumps Many H (None) /hpf Ur Squamous Epith Cells <1 (0-4) /hpf Urine Bacteria Many H (None) /hpf Urine Mucus Rare H (None) /hpf Serum Alcohol 156 mg/dL Disposition Clinical Impression: Alcohol intoxication, Urinary tract infection Disposition: HOME SELF-CARE Condition: Stable Instructions (If sedation given, give patient instructions): Urinary Tract Infection in Men (ED), Alcohol Withdrawal (ED) Additional Instructions: Please follow-up with the primary care doctor in 2-4 days. Return to the emergency room for any new or worsening symptoms Prescriptions: Cephalexin [Keflex] 500 mg PO Q6HR #28 cap chlordiazePOXIDE HCl [Librium] 25 mg PO QID PRN 3 Days #12 capsule PRN Reason: Alcohol Withdrawal Is patient prescribed a controlled substance at d/c from ED?: No Referrals: None,Stated [Primary Care Provider] - 1-2 days Time of Disposition: 13:18
[2019-06-03 12:27] LABS: Basophils # (A) 0.1 k/uL (0-0.2); Basophils % (A) 1 %; Eosinophils # (A) 0.3 k/uL (0-0.7); Eosinophils % (A) 3 %; HCT 49.1 % (39.0-53.0); HGB 15.7 gm/dL (13.0-17.5); Lymphocytes # (A) 1.2 k/uL (1.0-4.8); Lymphocytes % (A) 12 %; MCHC 32.1 g/dL (31.0-37.0); MCV 96.6 fL (80.0-100.0); Mean Platelet Volume 6.3; Monocytes # (A) 0.3 k/uL (0-1.0); Monocytes % (A) 3 %; Neutrophils # (A) 7.8 k/uL (1.3-7.7); Neutrophils % (A) 80 %; Platelet Count 282 k/uL (150-450); RBC 5.08 m/uL (4.30-5.90); RDW 13.8 % (11.5-15.5); WBC 9.8 k/uL (3.8-10.6)
[2019-06-03 12:37] LABS: ALT 95 U/L (21-72); AST 148 U/L (17-59); African American GFR (CKD) >90 (>60 ml/min/1.73 sqM); Albumin 4.4 g/dL (3.5-5.0); Alkaline Phosphatase 96 U/L (38-126); Anion Gap 12 mmol/L; Blood Urea Nitrogen 8 mg/dL (9-20); Calcium 9.2 mg/dL (8.4-10.2); Carbon Dioxide 27 mmol/L (22-30); Chloride 103 mmol/L (98-107); Glucose 103 mg/dL (74-99); Magnesium 1.6 mg/dL (1.6-2.3); Potassium 4.4 mmol/L (3.5-5.1); Sodium 142 mmol/L (137-145); Total Bilirubin 0.9 mg/dL (0.2-1.3); Total Protein 7.6 g/dL (6.3-8.2)
[2019-06-03 12:38] LABS: Alcohol 156 mg/dL
[2019-06-03] MEDS ORDERED: MAGNESIUM OXIDE 400 MG TAB PO STA (13:13)
[2019-06-03 14:23] LABS: Appearance,Urine Cloudy (Clear); Bacteria,Urine Many /hpf; Bilirubin,Urine Negative (Negative); Blood,Urine Small (Negative); Color,Urine Yellow; Glucose,Urine (UA) Negative (Negative); Ketones,Urine Trace (Negative); Leukocyte Esterase,Urine Large (Negative); Mucus,Urine Rare /hpf; Nitrite,Urine Positive (Negative); PH, Urine 5.5 (5.0-8.0); Protein,Urine 1+ (Negative); RBC,Urine 4 /hpf (0-5); Specific Gravity,Urine 1.013 (1.001-1.035); Squamous Epithelial Cell,Urine <1 /hpf (0-4); WBC,Urine >182 /hpf (0-5)
[2019-06-03] MEDS ORDERED: CEPHALEXIN 500MG STARTER PACK 4 CAP BTL PO STA (14:42)
[2019-06-03 14:54] VITALS: BP 148/98; PULSE 98; RESP 18; TEMP 98
== END 2019-06-03 15:16 | disposition home or self-care (01) ==
LOC: EC 11:21
DX: F10.129 Alcohol abuse with intoxication, unspecified (principal); N39.0 Urinary tract infection, site not specified; E83.42 Hypomagnesemia; F31.30 Bipolar disorder, current episode depressed, mild or moderate severity, unspecified; F17.200 Nicotine dependence, unspecified, uncomplicated; Y90.6 Blood alcohol level of 120-199 mg/100 ml
CPT/HCPCS: 99285 ×2; 36415; 80053; 83735; 85025; 81001; G0480; 80320

== ENCOUNTER 2019-06-18 11:13 | Emergency (ER) | payer MEDICARE, OTHER ==
[2019-06-18 11:22] VITALS: RESP 18
--- NOTE | 2019-06-18 11:25 | ED ---
Psych HPI - General Stated Complaint: Suicidal Time Seen by Provider: 06/18/19 11:15 Source: patient, EMS, RN notes reviewed Mode of arrival: EMS Limitations: no limitations - History of Present Illness Initial Comments: 53-year-old male presents emergency from chief complaint of feeling suicidal. Patient was presented emergency from via EMS stating that he has been increasing ly depressed because of the holidays, stating that his daughter and sniffing other are not here. Patient does admit to alcohol use presently daily drinker. Denies any current drug use states that he has a former history of use. No physical complaints. No homicidal ideation. - Related Data Home Medications Medication Instructions Recorded Confirmed Multivitamins, Thera [Multivitamin 1 tab PO DAILY 05/28/19 06/18/19 (formulary)] Albuterol Sulfate [Ventolin HFA] 1 - 2 puff INHALATION RT-Q6H PRN 06/18/19 06/18/19 Budesonide/Formoterol Fumarate 2 puff INHALATION RT-BID 06/18/19 06/18/19 [Symbicort 160-4.5 Mcg Inhaler] Calcium Citrate 250 mg PO BID 06/18/19 06/18/19 Cholecalciferol [Vitamin D3 (25 5,000 unit PO DAILY 06/18/19 06/18/19 Mcg = 1000 Iu)] Ferrous Sulfate [Feosol] 325 mg PO DAILY 06/18/19 06/18/19 lamoTRIgine [LaMICtal] 100 mg PO BID 06/18/19 06/18/19 Previous Rx's Medication Instructions Recorded DULoxetine HCL [Cymbalta] 60 mg PO DAILY 28 Days rosio. 05/26/19 Lisinopril [Zestril] 20 mg PO DAILY 28 Days tab 05/26/19 OLANZapine [ZyPREXA] 5 mg PO HS 28 Days tab 05/26/19 chlordiazePOXIDE HCl [Librium] 25 mg PO QID PRN 3 Days #12 capsule 06/03/19 Allergies Allergy/AdvReac Type Severity Reaction Status Date / Time No Known Allergies Allergy Verified 06/18/19 12:21 Review of Systems ROS Statement: Those systems with pertinent positive or pertinent negative responses have been documented in the HPI. ROS Other: All systems not noted in ROS Statement are negative. Past Medical History Past Medical History: GERD/Reflux, Hypertension, Musculoskeletal Disorder, Pneumonia Additional Past Medical History / Comment(s): GI Bleed, kidney stones, degenerative disc disease in lower back and neck, kyphosis and scoliosis, ETOH abuse. IBS History of Any Multi-Drug Resistant Organisms: None Reported Past Surgical History: Bariatric Surgery, Orthopedic Surgery Additional Past Surgical History / Comment(s): Left inner Forearm-metal plate Past Anesthesia/Blood Transfusion Reactions: No Reported Reaction Past Psychological History: Anxiety, Bipolar, Depression, PTSD Smoking Status: Current every day smoker Past Alcohol Use History: Abuse, Heavy Past Drug Use History: Cocaine, Heroin, Marijuana - Past Family History Mother Family Medical History: Hypertension Additional Family Medical History / Comment(s): Lupus General Exam General appearance: alert, in no apparent distress Head exam: Present: atraumatic, normocephalic, normal inspection Neck exam: Present: normal inspection, full ROM. Absent: tenderness, meningismus, lymphadenopathy Respiratory exam: Present: normal lung sounds bilaterally. Absent: respiratory distress, wheezes, rales, rhonchi, stridor Cardiovascular Exam: Present: regular rate, normal rhythm, normal heart sounds. Absent: systolic murmur, diastolic murmur, rubs, gallop, clicks GI/Abdominal exam: Present: soft, normal bowel sounds. Absent: distended, tenderness, guarding, rebound, rigid Neurological exam: Present: alert, oriented X3 Psychiatric exam: Present: depressed, flat affect Skin exam: Present: warm, dry, intact, normal color. Absent: rash Course Vital Signs 06/18/19 11:17 Temperature 99.3 F Pulse Rate 112 H Respiratory 18 Rate Blood Pressure 165/106 O2 Sat by Pulse 96 Oximetry Medical Decision Making - Medical Decision Making Patient evaluated by EPS case discussed with psychiatrist recommends patient to be discharged. Patient is stable for discharge he is not suicidal currently. Patient was given safety plan. Return parameters were discussed. - Lab Data Lab Results 06/18/19 Range/Units 11:15 Urine Opiates Screen Not Detected (NotDetected) Ur Oxycodone Screen Not Detected (NotDetected) Urine Methadone Screen Not Detected (NotDetected) Ur Propoxyphene Screen Not Detected (NotDetected) Ur Barbiturates Screen Not Detected (NotDetected) U Tricyclic Antidepress Not Detected (NotDetected) Ur Phencyclidine Scrn Not Detected (NotDetected) Ur Amphetamines Screen Not Detected (NotDetected) U Methamphetamines Scrn Not Detected (NotDetected) U Benzodiazepines Scrn Not Detected (NotDetected) Urine Cocaine Screen Not Detected (NotDetected) U Marijuana (THC) Screen Not Detected (NotDetected) Disposition Clinical Impression: Bipolar disorder with depression, Alcohol abuse Disposition: HOME SELF-CARE Condition: Stable Instructions (If sedation given, give patient instructions): Depression (ED) Additional Instructions: Please return to the Emergency Department if symptoms worsen or any other concerns. Is patient prescribed a controlled substance at d/c from ED?: No Referrals: None,Stated [Primary Care Provider] - 1-2 days Time of Disposition: 14:46
[2019-06-18 12:32] LABS: Amphetamine Screen,Urine Not Detected (NotDetected); Barbiturate Screen,Urine Not Detected (NotDetected); Benzodiazepines Screen,Urine Not Detected (NotDetected); Cocaine Screen,Urine Not Detected (NotDetected); Methadone Screen, Urine Not Detected (NotDetected); Opiate Screen,Urine Not Detected (NotDetected); Oxycodone Screen, Urine Not Detected (NotDetected); Phencyclidine Screen,Urine Not Detected (NotDetected); Tricyclic Antidepressant,Urine Not Detected (NotDetected); Urn Cannabinoid Scrn Not Detected (NotDetected)
[2019-06-18 14:59] VITALS: BP 170/99; PULSE 109; TEMP 98.2
== END 2019-06-18 15:13 | disposition home or self-care (01) ==
LOC: EC 11:13
DX: F31.30 Bipolar disorder, current episode depressed, mild or moderate severity, unspecified (principal); F10.10 Alcohol abuse, uncomplicated; R45.851 Suicidal ideations; F17.200 Nicotine dependence, unspecified, uncomplicated; Z79.51 Long term (current) use of inhaled steroids; Z79.899 Other long term (current) drug therapy; Z87.01 Personal history of pneumonia (recurrent); Z86.2 Personal history of diseases of the blood and blood-forming organs and certain disorders involving the immune mechanism
CPT/HCPCS: 80306; 82075; 99285

== ENCOUNTER 2019-06-19 11:47 | Observation (INO) | payer MEDICARE ==
--- NOTE | 2019-06-19 12:23 | ED ---
General Adult HPI <Harjinder Sands - Last Filed: 06/19/19 14:42> - General Source: EMS, RN notes reviewed, old records reviewed Mode of arrival: EMS Limitations: no limitations <Ulisses Xie - Last Filed: 06/19/19 15:12> - General Chief complaint: Weakness Stated complaint: GENERALIZED WEAKNESS, DEPRESSION Time Seen by Provider: 06/19/19 11:58 - History of Present Illness Initial comments: 53-year-old male patient presents to ED for multiple complaints. Patient reports that he is homeless not have any vertigo. Patient port that he has not multiple hospitals last 2 days. Most recently patient was discharged from [facility] early this morning for chest pain. Patient reports t hat he [facility] and sat [facility] the [facility]. Patient reports it was very cold and he is feeling generalized weakness. Patient reports although he does not have any suicidal or homicidal plan and has not anything to harm himself or any others. Part of him wishes that he had just sat on the steps to freeze to . During evaluation in the emergency department patient reports that he is not experiencing some substernal chest pain. Patient believes that his generalized weakness is due to alcohol withdrawals. Patient port. He is a daily drinker however has not drank in 2 days. Denies any other complaints at this time. Systemic: Pt denies fatigue, fever/chills, rash. Pt denies night sweats, weight loss. Neuro: Pt denies headache, visual disturbances, syncope or pre-syncope. HEENT: Pt denies ocular discharge or irritation, otalgia, rhinorrhea, pharyngitis or notable lymphadenopathy. Cardiopulmonary: Pt denies SOB, heart palpitations, dyspnea on exertion. Abdominal/GI: Pt denies abdominal pain, n/v/d. : Pt denies dysuria, burning w/ urination, frequency/urgency. Denies new onset urinary or bowel incontinence. MSK: Pt denies myalgia, loss of strength or function in extremities. Neuro: Pt denies new onset weakness, paresthesias. (Ulisses Xie) - Related Data Home Medications Medication Instructions Recorded Confirmed Multivitamins, Thera [Multivitamin 1 tab PO DAILY 05/28/19 06/19/19 (formulary)] Albuterol Sulfate [Ventolin HFA] 1 - 2 puff INHALATION RT-Q6H PRN 06/18/19 06/19/19 Budesonide/Formoterol Fumarate 2 puff INHALATION RT-BID 06/18/19 06/19/19 [Symbicort 160-4.5 Mcg Inhaler] Calcium Citrate 250 mg PO BID 06/18/19 06/19/19 Cholecalciferol [Vitamin D3 (25 5,000 unit PO DAILY 06/18/19 06/19/19 Mcg = 1000 Iu)] Ferrous Sulfate [Feosol] 325 mg PO DAILY 06/18/19 06/19/19 lamoTRIgine [LaMICtal] 100 mg PO BID 06/18/19 06/19/19 Previous Rx's Medication Instructions Recorded DULoxetine HCL [Cymbalta] 60 mg PO DAILY 28 Days capsule. 05/26/19 Lisinopril [Zestril] 20 mg PO DAILY 28 Days tab 05/26/19 OLANZapine [ZyPREXA] 5 mg PO HS 28 Days tab 05/26/19 chlordiazePOXIDE HCl [Librium] 25 mg PO QID PRN 3 Days #12 capsule 06/03/19 Allergies Allergy/AdvReac Type Severity Reaction Status Date / Time No Known Allergies Allergy Verified 06/19/19 14:25 Review of Systems ROS Other: All systems not noted in ROS Statement are negative. <Harjinder Sands - Last Filed: 06/19/19 14:42> ROS Other: All systems not noted in ROS Statement are negative. <Ulisses Xie - Last Filed: 06/19/19 15:12> ROS Statement: Those systems with pertinent positive or pertinent negative responses have been documented in the HPI. Past Medical History Past Medical History: GERD/Reflux, Hypertension, Musculoskeletal Disorder, Pneumonia Additional Past Medical History / Comment(s): GI Bleed, kidney stones, degenerative disc disease in lower back and neck, kyphosis and scoliosis, ETOH abuse. IBS History of Any Multi-Drug Resistant Organisms: None Reported Past Surgical History: Bariatric Surgery, Orthopedic Surgery Additional Past Surgical History / Comment(s): Left inner Forearm-metal plate Past Anesthesia/Blood Transfusion Reactions: No Reported Reaction Past Psychological History: Anxiety, Bipolar, Depression, PTSD Smoking Status: Current every day smoker Past Alcohol Use History: Abuse, Heavy Past Drug Use History: Cocaine, Heroin, Marijuana - Past Family History Mother Family Medical History: Hypertension Additional Family Medical History / Comment(s): Lupus <Ulisses Xie - Last Filed: 06/19/19 15:12> General Exam Limitations: no limitations <Ulisses Xie - Last Filed: 06/19/19 15:12> - General Exam Comments Initial Comments: Constitutional: NAD, AOX3, Pt has pleasant affect. HEENT: NC/AT, trachea midline, neck supple, no lymphadenopathy. Posterior pharynx non erythematous, without exudates. External ears appear normal, without discharge. Mucous membranes moist. Eyes PERRLA, EOM intact. There is no scleral icterus. No pallor noted. Cardiopulmonary: RRR, no murmurs, rubs or gallops, no JVD noted. Lungs CTAB in anterior and posterior izquierdo. No peripheral edema. Abdominal exam: Abdomen soft and non-distended. Abdomen non-tender to palpation in all 4 quadrants. Bowel sounds active in LLQ. No hepatosplenomegaly. No ecchymosis Neuro: CN II-XII intact. No nuchal rigidity. No raccon eyes, no king sign, no hemotympanum. No cervical spinal tenderness. MSK: No posterior calf tenderness bilaterally, homans sign negative bilaterally. Posterior tibialis and radial pulse +2 bilaterally. Sensation intact in upper and lower extremities. Full active ROM in upper and lower extremities, 5/5 stregnth. (Ulisses Xie) Course <Harjinder Sands - Last Filed: 06/19/19 14:42> Vital Signs 06/19/19 06/19/19 06/19/19 11:59 13:30 14:00 Temperature 97.9 F Pulse Rate 85 82 79 Respiratory 16 14 13 Rate Blood Pressure 171/115 154/102 145/104 O2 Sat by Pulse 97 97 97 Oximetry 06/19/19 14:30 Temperature Pulse Rate 79 Respiratory 12 Rate Blood Pressure 145/98 O2 Sat by Pulse 97 Oximetry - Reevaluation(s) Reevaluation #1: 06/19/19 14:42 PA supervision: I personally did evaluate this case and did discuss the findings with Dr. Condon. Patient does demonstrate weakness evidence of UTI and chest pain. He will be admitted for treatment of UTI and serial troponins. (Harjinder Sands) Medical Decision Making - Lab Data Result diagrams: 06/19/19 12:23 06/19/19 12:23 <Harjinder Sands - Last Filed: 06/19/19 14:42> - Lab Data Result diagrams: 06/19/19 12:23 06/19/19 12:23 - EKG Data -: EKG Interpreted by Me (and Dr. Sands ) <Ulisses Xie - Last Filed: 06/19/19 15:12> - Medical Decision Making 53-year-old male patient presents to ED for multiple complaints. Patient reports that he is homeless not have any vertigo. Patient port that he has not multiple hospitals last 2 days. Most recently patient was discharged from [facility] early this morning for chest pain. Patient reports that he went [facility] and sat on the steps. Patient reports it was very cold and he is feeling generalized weakness. Patient reports although he does not have any suicidal or homicidal plan and has not anything to harm himself or any others. Part of him wishes that he had just sat on the steps to freeze to . During evaluation in the emergency department patient reports that he is not experiencing some substernal chest pain. Patient believes that his generalized weakness is due to alcohol withdrawals. Patient port. He is a ben ly drinker however has not drank in 2 days. Denies any other complaints at this time. Patient vital signs stable, afebrile. Physical exam demonstrate acute pathology. Neurologic exam within normal limits. Laboratory investigations revealed troponin of 0.017. BNP of 455. UA displayed infection. Tox screen is negative. Serum alcohol is negative. Chest x-ray displayed new acute left basilar atelectasis. 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 EKG nonischemic. Patient denies any pain at time of admission. Patient placed on CIWA protocol. Patient admitted for serial troponins. Case discussed with Dr. Sands. (Ulisses Xie) - Lab Data Lab Results 06/19/19 06/19/19 06/19/19 Range/Units 12:23 12:23 12:23 WBC 7.9 (3.8-10.6) k/uL RBC 4.38 (4.30-5.90) m/uL Hgb 14.2 (13.0-17.5) gm/dL Hct 42.2 (39.0-53.0) % MCV 96.4 (80.0-100.0) fL MCH 32.5 (25.0-35.0) pg MCHC 33.7 (31.0-37.0) g/dL RDW 13.7 (11.5-15.5) % Plt Count 368 (150-450) k/uL Neutrophils % 84 % Lymphocytes % 9 % Monocytes % 4 % Eosinophils % 1 % Basophils % 1 % Neutrophils # 6.6 (1.3-7.7) k/uL Lymphocytes # 0.7 L (1.0-4.8) k/uL Monocytes # 0.3 (0-1.0) k/uL Eosinophils # 0.1 (0-0.7) k/uL Basophils # 0.1 (0-0.2) k/uL PT (9.0-12.0) sec INR (<1.2) APTT (22.0-30.0) sec Sodium 139 (137-145) mmol/L Potassium 3.7 (3.5-5.1) mmol/L Chloride 105 (98-107) mmol/L Carbon Dioxide 28 (22-30) mmol/L Anion Gap 6 mmol/L BUN 12 (9-20) mg/dL Creatinine 0.59 L (0.66-1.25) mg/dL Est GFR (CKD-EPI)AfAm >90 (>60 ml/min/1.73 sqM) Est GFR (CKD-EPI)NonAf >90 (>60 ml/min/1.73 sqM) Glucose 88 (74-99) mg/dL Calcium 9.0 (8.4-10.2) mg/dL Magnesium 1.7 (1.6-2.3) mg/dL Total Bilirubin 1.2 (0.2-1.3) mg/dL AST 34 (17-59) U/L ALT 21 (21-72) U/L Alkaline Phosphatase 97 (38-126) U/L Troponin I (0.000-0.034) ng/mL NT-Pro-B Natriuret Pep 455 pg/mL Total Protein 7.0 (6.3-8.2) g/dL Albumin 4.1 (3.5-5.0) g/dL Urine Color Urine Appearance (Clear) Urine pH (5.0-8.0) Ur Specific [facility] (1.001-1.035) Urine Protein (Negative) Urine Glucose (UA) (Negative) Urine Ketones (Negative) Urine Blood (Negative) Urine Nitrite (Negative) Urine Bilirubin (Negative) Urine Urobilinogen (<2.0) mg/dL Ur Leukocyte Esterase (Negative) Urine WBC (0-5) /hpf Urine WBC Clumps (None) /hpf Ur Squamous Epith Cells (0-4) /hpf Urine Bacteria (None) /hpf Urine Mucus (None) /hpf Urine Opiates Screen (NotDetected) Ur Oxycodone Screen (NotDetected) Urine Methadone Screen (NotDetected) Ur Propoxyphene Screen (NotDetected) Ur Barbiturates Screen (NotDetected) U Tricyclic Antidepress (NotDetected) Ur Phencyclidine Scrn (NotDetected) Ur Amphetamines Screen (NotDetected) U Methamphetamines Scrn (NotDetected) U Benzodiazepines Scrn (NotDetected) Urine Cocaine Screen (NotDetected) U Marijuana (THC) Screen (NotDetected) Serum Alcohol <10 mg/dL 06/19/19 06/19/19 06/19/19 Range/Units 12:23 12:23 Unknown WBC (3.8-10.6) k/uL RBC (4.30-5.90) m/uL Hgb (13.0-17.5) gm/dL Hct (39.0-53.0) % MCV (80.0-100.0) fL MCH (25.0-35.0) pg MCHC (31.0-37.0) g/dL RDW (11.5-15.5) % Plt Count (150-450) k/uL Neutrophils % % Lymphocytes % % Monocytes % % Eosinophils % % Basophils % % Neutrophils # (1.3-7.7) k/uL Lymphocytes # (1.0-4.8) k/uL Monocytes # (0-1.0) k/uL Eosinophils # (0-0.7) k/uL Basophils # (0-0.2) k/uL PT 10.0 (9.0-12.0) sec INR 0.9 (<1.2) APTT 25.3 (22.0-30.0) sec Sodium (137-145) mmol/L Potassium (3.5-5.1) mmol/L Chloride (98-107) mmol/L Carbon Dioxide (22-30) mmol/L Anion Gap mmol/L BUN (9-20) mg/dL Creatinine (0.66-1.25) mg/dL Est GFR (CKD-EPI)AfAm (>60 ml/min/1.73 sqM) Est GFR (CKD-EPI)NonAf (>60 ml/min/1.73 sqM) Glucose (74-99) mg/dL Calcium (8.4-10.2) mg/dL Magnesium (1.6-2.3) mg/dL Total Bilirubin (0.2-1.3) mg/dL AST (17-59) U/L ALT (21-72) U/L Alkaline Phosphatase (38-126) U/L Troponin I 0.017 (0.000-0.034) ng/mL NT-Pro-B Natriuret Pep pg/mL Total Protein (6.3-8.2) g/dL Albumin (3.5-5.0) g/dL Urine Color Yellow Urine Appearance Turbid (Clear) Urine pH 7.0 (5.0-8.0) Ur Specific [facility] 1.013 (1.001-1.035) Urine Protein 2+ H (Negative) Urine Glucose (UA) Negative (Negative) Urine Ketones Negative (Negative) Urine Blood Small H (Negative) Urine Nitrite Positive (Negative) Urine Bilirubin Negative (Negative) Urine Urobilinogen <2.0 (<2.0) mg/dL Ur Leukocyte Esterase Large H (Negative) Urine WBC >182 H (0-5) /hpf Urine WBC Clumps Many H (None) /hpf Ur Squamous Epith Cells 1 (0-4) /hpf Urine Bacteria Moderate H (None) /hpf Urine Mucus Few H (None) /hpf Urine Opiates Screen Not Detected (NotDetected) Ur Oxycodone Screen Not Detected (NotDetected) Urine Methadone Screen Not Detected (NotDetected) Ur Propoxyphene Screen Not Detected (NotDetected) Ur Barbiturates Screen Not Detected (NotDetected) U Tricyclic Antidepress Not Detected (NotDetected) Ur Phencyclidine Scrn Not Detected (NotDetected) Ur Amphetamines Screen Not Detected (NotDetected) U Methamphetamines Scrn Not Detected (NotDetected) U Benzodiazepines Scrn Not Detected (NotDetected) Urine Cocaine Screen Not Detected (NotDetected) U Marijuana (THC) Screen Not Detected (NotDetected) Serum Alcohol mg/dL - EKG Data EKG Comments: Ventricular rate 64,. Full 156, QRS 84, QT/QTC 46 is 14. Normal sinus rhythm, left ventricle hypertrophy with repolarization abnormality. Nonspecific ST abdnormality. Abnormal EKG. No concern for acute ischemia. (Ulisses Xie) Disposition <Harjinder Sands - Last Filed: 06/19/19 14:42> Is patient prescribed a controlled substance at d/c from ED?: No <Ulisses Xie - Last Filed: 06/19/19 15:12> Clinical Impression: Chest pain, UTI (urinary tract infection) Disposition: ADMITTED IP TO THIS HOSP Condition: Serious Referrals: None,Stated [Primary Care Provider] - 1-2 days
[2019-06-19] MEDS ORDERED: THIAMINE 100 MG/ML 2 ML VIAL IM STA (12:26)
[2019-06-19] MEDS ORDERED: ASPIRIN 81 MG PO STA (12:26)
[2019-06-19] MEDS ORDERED: LORazepam 2 MG/ML INJ IV PRN ×2 (12:26)
[2019-06-19] MEDS ORDERED: SODIUM CHLORIDE 0.9% 1,000 ML IV STA (12:26)
[2019-06-19] MEDS ORDERED: LORazepam 1 MG TAB PO STA (12:27)
[2019-06-19 12:36] LABS: Basophils # (A) 0.1 k/uL (0-0.2); Basophils % (A) 1 %; Eosinophils # (A) 0.1 k/uL (0-0.7); Eosinophils % (A) 1 %; HCT 42.2 % (39.0-53.0); HGB 14.2 gm/dL (13.0-17.5); Lymphocytes # (A) 0.7 k/uL (1.0-4.8); Lymphocytes % (A) 9 %; MCH 32.5 pg (25.0-35.0); MCHC 33.7 g/dL (31.0-37.0); MCV 96.4 fL (80.0-100.0); Mean Platelet Volume 5.4; Monocytes # (A) 0.3 k/uL (0-1.0); Monocytes % (A) 4 %; Neutrophils # (A) 6.6 k/uL (1.3-7.7); Neutrophils % (A) 84 %; Platelet Count 368 k/uL (150-450); RBC 4.38 m/uL (4.30-5.90); RDW 13.7 % (11.5-15.5); WBC 7.9 k/uL (3.8-10.6)
[2019-06-19 12:46] LABS: INR 0.9 (<1.2); Partial Thromboplastin Time 25.3 sec (22.0-30.0)
[2019-06-19 12:50] LABS: ALT 21 U/L (21-72); AST 34 U/L (17-59); African American GFR (CKD) >90 (>60 ml/min/1.73 sqM); Albumin 4.1 g/dL (3.5-5.0); Alcohol <10 mg/dL; Alkaline Phosphatase 97 U/L (38-126); Anion Gap 6 mmol/L; Blood Urea Nitrogen 12 mg/dL (9-20); Carbon Dioxide 28 mmol/L (22-30); Chloride 105 mmol/L (98-107); Glucose 88 mg/dL (74-99); Magnesium 1.7 mg/dL (1.6-2.3); Non-African American GFR(CKD) >90 (>60 ml/min/1.73 sqM); Potassium 3.7 mmol/L (3.5-5.1); Sodium 139 mmol/L (137-145); Total Bilirubin 1.2 mg/dL (0.2-1.3)
[2019-06-19 12:59] LABS: Appearance,Urine Turbid (Clear); Bacteria,Urine Moderate /hpf; Bilirubin,Urine Negative (Negative); Blood,Urine Small (Negative); Color,Urine Yellow; Glucose,Urine (UA) Negative (Negative); Ketones,Urine Negative (Negative); Leukocyte Esterase,Urine Large (Negative); Mucus,Urine Few /hpf; Nitrite,Urine Positive (Negative); Protein,Urine 2+ (Negative); Specific Gravity,Urine 1.013 (1.001-1.035); Squamous Epithelial Cell,Urine 1 /hpf (0-4); Urobilinogen,Urine <2.0 mg/dL (<2.0); WBC,Urine >182 /hpf (0-5)
[2019-06-19 13:01] LABS: Amphetamine Screen,Urine Not Detected (NotDetected); Barbiturate Screen,Urine Not Detected (NotDetected); Benzodiazepines Screen,Urine Not Detected (NotDetected); Cocaine Screen,Urine Not Detected (NotDetected); Methadone Screen, Urine Not Detected (NotDetected); Opiate Screen,Urine Not Detected (NotDetected); Oxycodone Screen, Urine Not Detected (NotDetected); Phencyclidine Screen,Urine Not Detected (NotDetected); Tricyclic Antidepressant,Urine Not Detected (NotDetected); Urn Cannabinoid Scrn Not Detected (NotDetected)
[2019-06-19] MEDS ORDERED: cefTRIAXone IN SWFI 1,000 MG/10 ML SYRINGE IVP STA (13:10)
--- NOTE | 2019-06-19 13:16 | XR ---
EXAMINATION TYPE: XR chest 2V DATE OF EXAM: 06/19/2019 COMPARISON: Chest x-ray April 01, 2018 HISTORY: Dysrhythmia. Anxiety and alcohol withdrawal. TECHNIQUE: Frontal and lateral views of the chest are obtained. FINDINGS: There is new left basilar linear atelectasis with elevated left hemidiaphragm redemonstrat ed. Right lung is clear. No pleural effusion or pneumothorax is noted bilaterally. The cardiac silhou ette size remains within normal limits with ectatic thoracic aorta. Old fractures posterior lateral r ight fifth and sixth ribs are redemonstrated. IMPRESSION: New acute left basilar linear atelectasis.
[2019-06-19] MEDS ORDERED: NITROGLYCERIN SL TABS 0.4 MG TAB SUBLINGUAL PRN (15:08)
[2019-06-19] MEDS ORDERED: ACETAMINOPHEN TAB 325 MG TAB PO PRN (15:08)
--- NOTE | 2019-06-19 15:22 | ED ---
Medical Decision Making - Medical Decision Making wrong EKG dictacted upon. Correct diction: Ventricular rate 100, UT interval 150, QRS 84, QT/QTC 372/479. Normal sinus rhythm, nonspecific T-wave abnormality. Prolonged QT, abnormal EKG. - Lab Data Result diagrams: 06/19/19 12:23 06/19/19 12:23 Lab Results 06/19/19 06/19/19 06/19/19 Range/Units 12:23 12:23 12:23 WBC 7.9 (3.8-10.6) k/uL RBC 4.38 (4.30-5.90) m/uL Hgb 14.2 (13.0-17.5) gm/dL Hct 42.2 (39.0-53.0) % MCV 96.4 (80.0-100.0) fL MCH 32.5 (25.0-35.0) pg MCHC 33.7 (31.0-37.0) g/dL RDW 13.7 (11.5-15.5) % Plt Count 368 (150-450) k/uL Neutrophils % 84 % Lymphocytes % 9 % Monocytes % 4 % Eosinophils % 1 % Basophils % 1 % Neutrophils # 6.6 (1.3-7.7) k/uL Lymphocytes # 0.7 L (1.0-4.8) k/uL Monocytes # 0.3 (0-1.0) k/uL Eosinophils # 0.1 (0-0.7) k/uL Basophils # 0.1 (0-0.2) k/uL PT (9.0-12.0) sec INR (<1.2) APTT (22.0-30.0) sec Sodium 139 (137-145) mmol/L Potassium 3.7 (3.5-5.1) mmol/L Chloride 105 (98-107) mmol/L Carbon Dioxide 28 (22-30) mmol/L Anion Gap 6 mmol/L BUN 12 (9-20) mg/dL Creatinine 0.59 L (0.66-1.25) mg/dL Est GFR (CKD-EPI)AfAm >90 (>60 ml/min/1.73 sqM) Est GFR (CKD-EPI)NonAf >90 (>60 ml/min/1.73 sqM) Glucose 88 (74-99) mg/dL Calcium 9.0 (8.4-10.2) mg/dL Magnesium 1.7 (1.6-2.3) mg/dL Total Bilirubin 1.2 (0.2-1.3) mg/dL AST 34 (17-59) U/L ALT 21 (21-72) U/L Alkaline Phosphatase 97 (38-126) U/L Troponin I (0.000-0.034) ng/mL NT-Pro-B Natriuret Pep 455 pg/mL Total Protein 7.0 (6.3-8.2) g/dL Albumin 4.1 (3.5-5.0) g/dL Urine Color Urine Appearance (Clear) Urine pH (5.0-8.0) Ur Specific [place] (1.001-1.035) Urine Protein (Negative) Urine Glucose (UA) (Negative) Urine Ketones (Negative) Urine Blood (Negative) Urine Nitrite (Negative) Urine Bilirubin (Negative) Urine Urobilinogen (<2.0) mg/dL Ur Leukocyte Esterase (Negative) Urine WBC (0-5) /hpf Urine WBC Clumps (None) /hpf Ur Squamous Epith Cells (0-4) /hpf Urine Bacteria (None) /hpf Urine Mucus (None) /hpf Urine Opiates Screen (NotDetected) Ur Oxycodone Screen (NotDetected) Urine Methadone Screen (NotDetected) Ur Propoxyphene Screen (NotDetected) Ur Barbiturates Screen (NotDetected) U Tricyclic Antidepress (NotDetected) Ur Phencyclidine Scrn (NotDetected) Ur Amphetamines Screen (NotDetected) U Methamphetamines Scrn (NotDetected) U Benzodiazepines Scrn (NotDetected) Urine Cocaine Screen (NotDetected) U Marijuana (THC) Screen (NotDetected) Serum Alcohol <10 mg/dL 06/19/19 06/19/19 06/19/19 Range/Units 12:23 12:23 Unknown WBC (3.8-10.6) k/uL RBC (4.30-5.90) m/uL Hgb (13.0-17.5) gm/dL Hct (39.0-53.0) % MCV (80.0-100.0) fL MCH (25.0-35.0) pg MCHC (31.0-37.0) g/dL RDW (11.5-15.5) % Plt Count (150-450) k/uL Neutrophils % % Lymphocytes % % Monocytes % % Eosinophils % % Basophils % % Neutrophils # (1.3-7.7) k/uL Lymphocytes # (1.0-4.8) k/uL Monocytes # (0-1.0) k/uL Eosinophils # (0-0.7) k/uL Basophils # (0-0.2) k/uL PT 10.0 (9.0-12.0) sec INR 0.9 (<1.2) APTT 25.3 (22.0-30.0) sec Sodium (137-145) mmol/L Potassium (3.5-5.1) mmol/L Chloride (98-107) mmol/L Carbon Dioxide (22-30) mmol/L Anion Gap mmol/L BUN (9-20) mg/dL Creatinine (0.66-1.25) mg/dL Est GFR (CKD-EPI)AfAm (>60 ml/min/1.73 sqM) Est GFR (CKD-EPI)NonAf (>60 ml/min/1.73 sqM) Glucose (74-99) mg/dL Calcium (8.4-10.2) mg/dL Magnesium (1.6-2.3) mg/dL Total Bilirubin (0.2-1.3) mg/dL AST (17-59) U/L ALT (21-72) U/L Alkaline Phosphatase (38-126) U/L Troponin I 0.017 (0.000-0.034) ng/mL NT-Pro-B Natriuret Pep pg/mL Total Protein (6.3-8.2) g/dL Albumin (3.5-5.0) g/dL Urine Color Yellow Urine Appearance Turbid (Clear) Urine pH 7.0 (5.0-8.0) Ur Specific [place] 1.013 (1.001-1.035) Urine Protein 2+ H (Negative) Urine Glucose (UA) Negative (Negative) Urine Ketones Negative (Negative) Urine Blood Small H (Negative) Urine Nitrite Positive (Negative) Urine Bilirubin Negative (Negative) Urine Urobilinogen <2.0 (<2.0) mg/dL Ur Leukocyte Esterase Large H (Negative) Urine WBC >182 H (0-5) /hpf Urine WBC Clumps Many H (None) /hpf Ur Squamous Epith Cells 1 (0-4) /hpf Urine Bacteria Moderate H (None) /hpf Urine Mucus Few H (None) /hpf Urine Opiates Screen Not Detected (NotDetected) Ur Oxycodone Screen Not Detected (NotDetected) Urine Methadone Screen Not Detected (NotDetected) Ur Propoxyphene Screen Not Detected (NotDetected) Ur Barbiturates Screen Not Detected (NotDetected) U Tricyclic Antidepress Not Detected (NotDetected) Ur Phencyclidine Scrn Not Detected (NotDetected) Ur Amphetamines Screen Not Detected (NotDetected) U Methamphetamines Scrn Not Detected (NotDetected) U Benzodiazepines Scrn Not Detected (NotDetected) Urine Cocaine Screen Not Detected (NotDetected) U Marijuana (THC) Screen Not Detected (NotDetected) Serum Alcohol mg/dL - EKG Data -: EKG Interpreted by Me (and Dr. Sands) EKG Comments: Ventricular rate 100, UT interval 150, QRS 84, QT/QTC 372/479. Normal sinus rhythm, nonspecific T-wave abnormality. Prolonged QT, abnormal EKG. Disposition Clinical Impression: Chest pain, UTI (urinary tract infection) Disposition: ADMITTED IP TO THIS HOSP Condition: Serious Is patient prescribed a controlled substance at d/c from ED?: No Referrals: None,Stated [Primary Care Provider] - 1-2 days
[2019-06-19] MEDS ORDERED: ALBUTEROL NEBULIZED 2.5 MG/3 ML INHALATION PRN (15:25)
[2019-06-19] MEDS ORDERED: chlordiazePOXIDE 25 MG CAP PO PRN (15:25)
[2019-06-19] MEDS ORDERED: HYDROcodone/APAP 5-325MG 1 EACH TAB PO PRN (15:26)
[2019-06-19] MEDS ORDERED: TEMAZEPAM 15 MG CAP PO PRN (15:26)
[2019-06-19] MEDS: LORazepam 2 MG/ML INJ IV PRN (17:52)
[2019-06-19] MEDS: CALCIUM CITRATE 250 MG PO SCH (19:16)
[2019-06-19] MEDS: OLANZapine 5 MG TAB PO SCH (19:22)
[2019-06-19] MEDS: HEPARIN SODIUM,PORCINE 5,000 UNIT/ML 1 ML VIAL SQ SCH (19:22)
[2019-06-19] MEDS: lamoTRIgine 100 MG TAB PO SCH (19:22)
[2019-06-19] MEDS: THIAMINE 100 MG TAB PO SCH (19:26)
[2019-06-19] MEDS: SYMBICORT 160-4.5 MCG INHALER INHALATION SCH (19:48)
--- NOTE | 2019-06-19 21:26 | HP ---
HISTORY AND PHYSICAL DATE OF SERVICE: 06/19/2019 CHIEF COMPLAINTS: Multiple chief complaints including chest pain, weakness, ETOH withdrawals and depression. HISTORY OF PRESENT ILLNESS: This 53-year-old gentleman with a past medical history of hypertension, DJD, history of pneumonia, history of bariatric surgery, history of anxiety, bipolar depression, PTSD being followed by no primary in the outpatient setting, is actually homeless. Patient apparently just returned from [place]. The patient does not have a place to go and currently the patient also was drinking alcohol, tall beers and the patient has some complaints of chest pain, palpitation, multiple other symptomatology. Patient admitted for further evaluation and treatment. Patient also had history of polysubstance abuse, cocaine, heroin and marijuana also. PAST MEDICAL HISTORY: History of hypertension, history of GERD, DJD, bariatric surgery, anxiety, bipolar depression, PTSD, substance abuse. MEDICATIONS: Reviewed and include: 1. Lamictal 100 mg p.o. b.i.d. 2. Librium 25 mg q.i.d. p.r.n. 3. Zyprexa 5 mg p.o. q.h.s. 4. Multivitamins 1 p.o. daily. 5. Zestril 20 mg p.o. daily. 6. Iron sulfate 320 mg daily. 7. Cymbalta 60 mg. 8. Vitamin D3 5000 daily. 9. Calcium citrate 250 mg p.o. b.i.d. 10.Symbicort 4.5 two puffs b.i.d. 11.Ventolin HFA II puffs q.6h p.r.n. ALLERGIES: None. FAMILY HISTORY: History of hypertension, lupus in the family. SOCIAL HISTORY: History of smoking, history of polysubstance abuse as mentioned earlier. History of alcohol. REVIEW OF SYSTEMS: ENT No history of diminished hearing or vision. CARDIOVASCULAR As mentioned earlier. RESPIRATORY As mentioned earlier. GI No nausea, vomiting, or diarrhea. No dysuria. NERVOUS No numbness or weakness. ALLERGY/IMMUNOLOGY No asthma or hayfever. MUSCULOSKELETAL As mentioned earlier. HEMATOLOGY/ONCOLOGY Negative. ENDOCRINE No history of diabetes or hypothyroidism. SKIN Negative. CONSTITUTIONAL No history of fever or weight loss. PSYCHIATRY As mentioned earlier. PHYSICAL EXAMINATION: Alert oriented x3. Pulse is 79, blood pressure 140/104, respirations 13, temperature 97.9, pulse ox 97% on room air skin: HEENT: Conjunctivae normal. Oral mucosa moist. NECK: No jugular venous distention. No lymph node enlargement. CARDIOVASCULAR: S1, S2. RESPIRATORY: Diminished breath sounds at the bases. No rhonchi, no crackles. ABDOMEN: Soft, nontender. LEGS: No swelling. NERVOUS SYSTEM: Higher functions mentioned earlier. Moves all four limbs. Diffuse tremors. Otherwise, no focal deficits. LYMPHATICS: No lymph node in neck or axilla. SKIN: No rash. JOINTS: No active deforming arthropathy. LABS: CBC, BMP noted. UA possible UTI. ASSESSMENT: 1. Chest pain for evaluation, possible unstable angina. 2. History of alcoholism and possible early delirium tremens. 3. Acute urinary tract infection present on admission. 4. History of gastroesophageal reflux disease. 5. Accelerated hypertension and hypertensive urgency. 6. History of pneumonia. 7. History of kidney stones. 8. History of gastrointestinal bleed. 9. History of degenerative joint disease. 10.History of irritable bowel syndrome. 11.History of bariatric surgery. 12.History of anxiety, bipolar depression, PTSD. 13.History of polysubstance abuse, cocaine, heroin, marijuana. 14.Social stressors. RECOMMENDATIONS AND DISCUSSION: In this 53-year-old gentleman who presented with multiple complex medical issues, we will monitor the patient closely, continue the current medications, management and symptomatic treatment. I recommend unstable angina protocol. Cardiology consultation. I would recommend empiric antibiotics. Resume the home medications. Symptomatic treatment. Case Management to evaluate the home situation. Otherwise, guarded prognosis because of multiple complex medical issues. Further recommendations to follow. Also, recommend the patient follow up with primary physician closely after discharge. MMODL / IJN: [id number] /
[2019-06-20] MEDS: LORazepam 2 MG/ML INJ IV PRN (02:35)
[2019-06-20] MEDS: PANTOPRAZOLE 40 MG TABLET PO SCH (06:07)
[2019-06-20] MEDS: THIAMINE 100 MG TAB PO SCH ×2 (06:07→16:59)
[2019-06-20 07:15] LABS: Cholesterol 184 mg/dL (<200); HDL Cholesterol 67 mg/dL (40-60); LDL Cholesterol,Calculated 98 mg/dL (0-99); Triglycerides 95 mg/dL (<150)
[2019-06-20] MEDS: SYMBICORT 160-4.5 MCG INHALER INHALATION SCH ×2 (08:02→19:49)
[2019-06-20] MEDS: CALCIUM CITRATE 250 MG PO SCH ×2 (08:20→20:31)
[2019-06-20] MEDS: LISINOPRIL 20 MG TAB PO SCH (08:35)
[2019-06-20] MEDS: lamoTRIgine 100 MG TAB PO SCH ×2 (08:35→21:00)
[2019-06-20] MEDS: FERROUS SULFATE 325 MG TAB PO SCH (08:35)
[2019-06-20] MEDS: MULTIVITAMINS, THERA 1 EACH TAB PO SCH (08:35)
[2019-06-20] MEDS: DULoxetine HCL 60 MG CAPSULE.DR PO SCH (08:35)
[2019-06-20] MEDS: CHOLECALCIFEROL 1,000 UNIT TAB PO SCH (08:35)
[2019-06-20] MEDS: ASPIRIN 325 MG TAB PO SCH (08:35)
[2019-06-20] MEDS: HEPARIN SODIUM,PORCINE 5,000 UNIT/ML 1 ML VIAL SQ SCH ×2 (08:35→21:00)
--- NOTE | 2019-06-20 10:51 | CONS ---
CONSULTATION CHIEF COMPLAINT: Chest pain. Jonathan is a 53-year-old gentleman with history of hypertension, COPD, bipolar mood disorder, who presented to the hospital with chest pain, weakness, and has had alcohol withdrawal also. Patient is homeless and does not have a primary care physician. He apparently just returned from [place]. The patient complains of vague chest pain that is sharp, precordial, unrelated to exertion and unassociated with diaphoresis. At the time of my evaluation, he is pain free. The patient has a history of polysubstance abuse including cocaine, heroin and marijuana. PAST MEDICAL HISTORY: Significant for hypertension, COPD, GERD, degenerative joint disease, bipolar mood disorder. MEDICATIONS: Medications at home include Lamictal 100 b.i.d., Librium, Zyprexa, Zestril 20 mg daily, iron, Cymbalta, Symbicort, and Ventolin. ALLERGIES: There are no known drug allergies. FAMILY HISTORY: Significant for hypertension. SOCIAL HISTORY: Significant for history of smoking, EtOH abuse. REVIEW OF SYSTEMS: HEENT is unremarkable. CARDIAC: As described above. RESPIRATORY: Negative. GI: Negative. GENITOURINARY: Negative. SHIRT FOLDING MACHINE OPERATOR: Negative. ALLERGY/IMMUNOLOGY: Negative. MUSCULOSKELETAL: Negative. HEMATOLOGICAL: Negative. ENDOCRINE: Negative. SKIN: Negative. CONSTITUTIONAL: Negative. PSYCH: As described above. PHYSICAL EXAMINATION: On exam, patient is comfortable at rest. Vital signs are stable. There is no jugular venous distention. Carotid upstroke is normal. There is no bruit. Chest exam reveals good air entry bilaterally. Heart exam reveals first and second heart sounds. No gallop. No murmur. No rub. Abdomen is soft, nontender. Examination of extremities did not reveal any edema. Peripheral pulses are felt. SHIRT FOLDING MACHINE OPERATOR exam did not reveal focal neurological deficits. LABS: Labs show that 3 sets of troponins are negative. LDL cholesterol is 98. Potassium is 3.7. Creatinine is normal. Hemoglobin is 14.2. ASSESSMENT: 1. Precordial chest pain. 2. EtOH abuse. PLAN: Patient's chest discomfort is sharp, atypical, probably noncardiac. I will obtain a 2D echo to evaluate his LV function and rule out wall motion abnormalities. If this is unremarkable, the patient can undergo an outpatient stress test. If he still here, we may do a dobutamine echo on him on Sunday. MMODL / IJN: [id number] /
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
--- NOTE | 2019-06-20 15:04 | ECHOF ---
Referral Reason:LV function MEASUREMENTS -------- HEIGHT: 172.7 cm WEIGHT: 77.1 kg BP: 130/84 IVSd: 1.6 cm (0.6 - 1.1) LVIDd: 3.2 cm (3.9 - 5.3) LVPWd: 1.2 cm (0.6 - 1.1) IVSs: 1.6 cm LVIDs: 2.8 cm LVPWs: 1.7 cm LAESV Index (A-L): 36.02 ml/m IVSd: 1.6 cm (0.6 - 1.1) LVIDd: 6.4 cm (3.9 - 5.3) LVPWd: 1.4 cm (0.6 - 1.1) IVSs: 2.5 cm LVIDs: 5.1 cm LVPWs: 2.0 cm EDV(Teich): 210 ml ESV(Teich): 122 ml EF(Teich): 42 % %FS: 21 % SV(Teich): 88 ml Ao Diam: 3.9 cm (2.0 - 3.7) AV Cusp: 1.9 cm (1.5 - 2.6) LA Diam: 3.5 cm (2.7 - 3.8) MV E Oc: 0.62 m/s MV DecT: 200 ms MV A Oc: 0.85 m/s MV E/A Ratio: 0.72 FINDINGS -------- Sinus rhythm. This was a technically difficult study with suboptimal views. The left ventricular size is normal. There is moderate concentric left ventricular hypertrophy. O verall left ventricular systolic function is mildly impaired with, an EF between 45 - 50 %. Mid ant eroseptal LV wall motion is hypokinetic. Apical septum LV wall motion is hypokinetic. The RV was not well visualized. LA is moderately dilated 34-39 ml/m2 The right atrium was not well visualized. xx ml of Lumason was utilized for enhancement of images. Interatrial and interventricular septum intact. The aortic valve was not well visualized. There is no evidence of aortic regurgitation. There is no evidence of aortic stenosis. No mitral regurgitation. The tricuspid valve was not well visualized. Unable to estimate RVSP due to inadequate TR jet spect ral doppler profile. The pulmonic valve was not well visualized. The aortic root size is normal. There is a trivial pericardial effusion present. Small Pleural Effusion. CONCLUSIONS -------- 1. Sinus rhythm. 2. This was a technically difficult study with suboptimal views. 3. The left ventricular size is normal. 4. There is moderate concentric left ventricular hypertrophy. 5. Overall left ventricular systolic function is mildly impaired with, an EF between 45 - 50 %. 6. Mid anteroseptal LV wall motion is hypokinetic. 7. Apical septum LV wall motion is hypokinetic. 8. The RV was not well visualized. 9. LA is moderately dilated 34-39 ml/m2 10. The right atrium was not well visualized. 11. xx ml of Lumason was utilized for enhancement of images. 12. Interatrial and interventricular septum intact. 13. The aortic valve was not well visualized. 14. There is no evidence of aortic regurgitation. 15. There is no evidence of aortic stenosis. 16. No mitral regurgitation. 17. The tricuspid valve was not well visualized. 18. Unable to estimate RVSP due to inadequate TR jet spectral doppler profile. 19. The pulmonic valve was not well visualized. 20. The aortic root size is normal. 21. There is a trivial pericardial effusion present. 22. Small Pleural Effusion. CURTAIN FELLER BLINDSTITCH: Emeli Lazaro RDCS
--- NOTE | 2019-06-20 18:48 | PN ---
PROGRESS NOTE DATE OF SERVICE: 06/20/2019 This 53-year-old gentleman who was admitted chest pain also has a history of alcoholism. The patient also has a UTI. Patient has significant social issues. The patient is currently apparently homeless. Social Work/Case Management is following the patient closely. A 2D echo with Doppler showed ejection fraction about 45% to 50% as well as other valvular abnormalities. Dr. Chaudhari from Cardiology has seen the patient and recommended outpatient followup. No chest pain. No palpitations. No fever. PHYSICAL EXAMINATION: Alert and oriented x3. Pulse 75, blood pressure 128/87, respirations 16, temperature 98.4, pulse ox 96% on room air. HEENT: Conjunctivae normal. NECK: No jugular venous distention. CARDIOVASCULAR SYSTEM: S1, S2 muffled. RESPIRATORY SYSTEM: Breath sounds diminished at the bases. No rhonchi. No crackles. ABDOMEN: Soft, non-tender. LEGS: No edema. No swelling. NERVOUS SYSTEM: No focal deficit. LABS: Labs at this time show CBC within normal limits. Sodium 139, potassium 3.7. ASSESSMENT: 1. Chest pain. Myocardial infarction ruled out. Possible unstable angina, possibly musculoskeletal. 2. History of alcoholism and possible early delirium tremens. 3. Acute urinary tract infection, present on admission. 4. History of gastroesophageal reflux disease. 5. Accelerated hypertension with hypertensive urgency, present on admission. 6. History of pneumonia. 7. History of kidney stones. 8. History of gastrointestinal bleed. 9. History of degenerative joint disease. 10.History of irritable bowel syndrome. 11.History of bariatric surgery. 12.Anxiety, bipolar, depression, post-traumatic stress disorder. 13.History of polysubstance abuse, cocaine, heroin, marijuana. 14.Social stressors. RECOMMENDATIONS AND DISCUSSION: I recommend to continue current medications, continue with the monitoring, symptomatic treatment. Otherwise at this time I recommend repeat labs. Closely follow with Cardiology. Psychiatry has seen the patient. workup. Increase ambulation. Once the health care social worker/case management team is ready with discharge disposition, the patient might be able to go home and continue workup with a primary physician in the outpatient setting. The importance of compliance was also stressed with the patient. The patient is not following up with any primary physician closely at this time. MMODL / IJN: [id number] / [facility]ITALYessica
[2019-06-20] MEDS: OLANZapine 5 MG TAB PO SCH (21:00)
[2019-06-21] MEDS: THIAMINE 100 MG TAB PO SCH (08:46)
[2019-06-21] MEDS: CHOLECALCIFEROL 1,000 UNIT TAB PO SCH (08:46)
[2019-06-21] MEDS: PANTOPRAZOLE 40 MG TABLET PO SCH (08:46)
[2019-06-21] MEDS: ASPIRIN 325 MG TAB PO SCH (08:46)
[2019-06-21] MEDS: MULTIVITAMINS, THERA 1 EACH TAB PO SCH (08:46)
[2019-06-21] MEDS: LISINOPRIL 20 MG TAB PO SCH (08:47)
[2019-06-21] MEDS: DULoxetine HCL 60 MG CAPSULE.DR PO SCH (08:47)
[2019-06-21] MEDS: HEPARIN SODIUM,PORCINE 5,000 UNIT/ML 1 ML VIAL SQ SCH (08:47)
[2019-06-21] MEDS: FERROUS SULFATE 325 MG TAB PO SCH (08:47)
[2019-06-21] MEDS: CALCIUM CITRATE 250 MG PO SCH (08:50)
[2019-06-21] MEDS: SYMBICORT 160-4.5 MCG INHALER INHALATION SCH (09:22)
[2019-06-21] MEDS: lamoTRIgine 100 MG TAB PO SCH (09:49)
[2019-06-21 12:53] VITALS: BP 154/88; PULSE 72; RESP 18; TEMP 98.1
--- NOTE | 2019-06-21 14:12 | P.PN ---
Subjective Progress Note Date: 06/21/19 Principal diagnosis: Atypical chest pain This is a pleasant 53-year-old gentleman with a past medical history significant for chronic obstructive pulmonary disease as well as history of bipolar disorder was admitted to the hospital with generalized weakness and atypical chest di scomfort. The patient is also alcoholic. He was ruled out for acute coronary event. The EKG did not show any ischemic changes and the enzymes were checked and came in to be unremarkable. The patient was seen today. He is asymptomatic from a cardiovascular standpoint of view. When the patient was seen yesterday by Dr. Bob, we advised proceeding with a stress test to be performed on Sunday but the patient is being discharged now. Patient can be seen as an outpatient and have the stress test as an outpatient as well. Objective - Vital Signs Vital signs: Vital Signs Temp 98.1 F 06/21/19 12:52 Pulse 72 06/21/19 12:52 Resp 18 06/21/19 12:52 BP 154/88 06/21/19 12:52 Pulse Ox 97 06/21/19 12:52 Intake & Output 06/20/19 06/21/19 06/21/19 18:59 06:59 18:59 Intake Total 1080 Balance 1080 Intake: Oral 1080 Other: Voiding Method Toilet # Voids 1 2 - Constitutional General appearance: Present: no acute distress - Respiratory Respiratory: bilateral: CTA - Cardiovascular Rhythm: regular Heart sounds: normal: S1, S2 - Labs CBC & Chem 7: 06/19/19 12:23 06/19/19 12:23 Labs: Microbiology - Last 24 Hours (Table) 06/19/19 Unknown Urine Culture - Final Urine,Voided Escherichia coli 06/19/19 18:47 Blood Culture - Preliminary Blood No Growth after 24 hours Assessment and Plan Assessment: Assessment #1 atypical chest pain #2 alcohol abuse #3 bipolar disorder Plan #1 acute coronary event was ruled out #2 the patient need to have a stress test, probably as an outpatient being disc harged now.
--- NOTE | 2019-06-21 23:06 | DS ---
DISCHARGE SUMMARY DATE OF SERVICE: 06/21/2019. FINAL DIAGNOSES: 1. Chest pain, myocardial infarction ruled out, possibly musculoskeletal. 2. History of alcoholism and possible early delirium tremens. 3. Acute urinary tract infection present on admission. 4. History of gastroesophageal reflux disease. 5. Accelerated hypertension with hypertensive urgency present on admission. 6. History of pneumonia. 7. History of kidney stones. 8. History of gastrointestinal bleed. 9. History of degenerative joint disease. 10.History of irritable bowel syndrome. 11.History of bariatric surgery. 12.History of anxiety, bipolar depression, posttraumatic stress disorder. 13.History of polysubstance abuse, cocaine, heroin and marijuana. 14.Social stressors. DISCHARGE DISPOSITION: The patient will be discharged in stable condition with guarded prognosis. HISTORY OF PRESENT ILLNESS: This 53-year-old gentleman with a past medical history of multiple medical problems was admitted with chest pain and multiple other medical problems, treated symptomatically. Patient improved significantly. The patient was basically homeless and the transplant case manager and social work team is working towards a discharge plan. Otherwise, the patient is improving significantly. Discharged cleared by multiple consultants. On exam, vitals are stable. Cardiovascular S1, S2. Abdomen soft. Nervous system: Higher functions as mentioned earlier. Moves all four extremities. Dermatology: Negative. Rheumatology: Negative. Psychiatry: As mentioned earlier. RECOMMENDATIONS AND DISCUSSION: I would recommend the patient follow up with primary physician and cardiology closely after discharge. DISCHARGE ADVICE AND MEDICATIONS: 1. Follow up with Dr. Parnell in 2 to 3 days. 2. Follow up with Cardiology as recommended. 3. Calcium citrate 250 mg p.o. b.i.d. 4. Iron 320 mg p.o. daily. 5. Lamictal 100 mg p.o. b.i.d. 6. Multivitamins 1 p.o. daily. 7. Symbicort 160/4.5 two puffs b.i.d. 8. Ventolin 1 puff q.6 p.r.n. 9. Vitamin D3 5000 daily. 10.Ativan 1 mg t.i.d. p.r.n. 11.Ceftin 500 mg p.o. b.i.d. for 3 days. 12.Cymbalta 60 mg p.o. daily. 13.Librium 25 mg q.i.d. p.r.n. 14.Tylenol p.r.n. 15.Zestril 20 mg p.o. daily. 16.Zyprexa 5 mg p.o. q.h.s. Once again, the patient being discharged in stable condition. MMSAMMIL / DEMARION: [id number] /
== END 2019-06-21 14:50 | disposition home or self-care (01) ==
LOC: EC 11:47 → 3SCARD 14:42 → 3NMEDONC 06-20 19:15
PROVIDERS: ADMIT Hospitalist; ATTEND Hospitalist
DX: R07.89 Other chest pain (principal); R07.2 Precordial pain; N39.0 Urinary tract infection, site not specified; K21.9 Gastro-esophageal reflux disease without esophagitis; I16.0 Hypertensive urgency; I10 Essential (primary) hypertension; M19.90 Unspecified osteoarthritis, unspecified site; K58.9 Irritable bowel syndrome, unspecified; F41.9 Anxiety disorder, unspecified; F31.9 Bipolar disorder, unspecified; F43.10 Post-traumatic stress disorder, unspecified; F10.21 Alcohol dependence, in remission; F14.11 Cocaine abuse, in remission; F11.11 Opioid abuse, in remission; F12.11 Cannabis abuse, in remission; F43.8 Other reactions to severe stress; M51.36 Other intervertebral disc degeneration, lumbar region; M50.30 Other cervical disc degeneration, unspecified cervical region; M41.9 Scoliosis, unspecified; M40.209 Unspecified kyphosis, site unspecified; J44.9 Chronic obstructive pulmonary disease, unspecified; Z59.0 Homelessness; Z87.01 Personal history of pneumonia (recurrent); Z87.442 Personal history of urinary calculi; Z87.19 Personal history of other diseases of the digestive system; Z98.84 Bariatric surgery status; Z79.899 Other long term (current) drug therapy; Z79.51 Long term (current) use of inhaled steroids; Z98.890 Other specified postprocedural states; Z82.49 Family history of ischemic heart disease and other diseases of the circulatory system; Z83.2 Family history of diseases of the blood and blood-forming organs and certain disorders involving the immune mechanism; Z81.1 Family history of alcohol abuse and dependence
CPT/HCPCS: 96366; 96372 ×4; 96376 ×2; 96365; 96375; 93005 ×2; 99285; 36415; 94640 ×4; 83880; 80061; 80053; 83735; 84484 ×2; 85025; 85610; 85730; 81001; 87040; 80306; 87086; 87077; 87186; 71046; G0378 ×4; C8929; G0480; J2060 ×2; J1644 ×3; J3411; J0696 ×3; Q9950; 80320; 93306

== ENCOUNTER 2019-07-05 08:17 | Emergency (ER) | payer MEDICARE ==
[2019-07-05 08:30] VITALS: RESP 18; TEMP 98.2
--- NOTE | 2019-07-05 08:51 | ED ---
General Adult HPI - General Chief complaint: Psychiatric Symptoms Stated complaint: ETOH, Suicidal Time Seen by Provider: 07/05/19 08:33 Source: patient Mode of arrival: EMS Limitations: no limitations - History of Present Illness Initial comments: Dictation was produced using [employer] dictation software. please excuse any grammatical, word or spelling errors. Chief Complaint: 53-year-old male presents with suicidal ideation. History of Present Illness: An is a 53-year-old male presents with suicidal ideation. Patient is a daily alcoholic. Her last 48 hours he's been drinking more than usual. Patient states he's had withdrawals in the past. Reports that he drinks half a gallon whiskey per day. He has any withdrawal seizures. Patient is depressed because he won't be able to spend [place] with his daughters. She denies any attempt today. He is taking he wants to commit suicide. He has plan of drinking or dosing on heroin. Patient asked alcohol intake approximately 30 minutes prior to coming to the emergency department. The ROS documented in this emergency department record has been reviewed and confirmed by me. Those systems with pertinent positive or negative responses have been documented in the HPI. All other systems are other negative and/or noncontributory. PHYSICAL EXAM: General Impression: Alert and oriented x3, not in acute distress HEENT: Normocephalic atraumatic, extra-ocular movements intact, pupils equal and reactive to light bilaterally, mucous membranes moist. Cardiovascular: Heart regular rate and rhythm, S1&S2 audible, no murmurs, rubs or gallops Chest: Lungs clear to auscultation bilaterally, no rhonchi, no wheeze, no rales Abdomen: Bowel sounds present, abdomen soft, non-tender, non-distended, no organomegaly Musculoskeletal: Pulses present and equal in all extremities, no peripheral edema Motor: no focal deficits noted Neurological: CN II-XII grossly intact, no focal motor or sensory deficits noted Skin: Intact with no visualized rashes Psych: Normal affect and mood ED course: 53 y Old male presents with suicidal ideation. As upon arrival shows heart rate of 103, rest of vital signs within acceptable limits. Physical examination is benign. Patient was evaluated by EPS. They recommend patient be discharged. Patient value at bedside on be stable medical condition. She advised to follow up outpatient with his primary care physician and outpatient psychiatry. Patient has arranged [facility] outpatient limits. - Related Data Home Medications Medication Instructions Recorded Confirmed Multivitamins, Thera [Multivitamin 1 tab PO DAILY 05/28/19 06/19/19 (formulary)] Albuterol Sulfate [Ventolin HFA] 1 - 2 puff INHALATION RT-Q6H PRN 06/18/19 06/19/19 Budesonide/Formoterol Fumarate 2 puff INHALATION RT-BID 06/18/19 06/19/19 [Symbicort 160-4.5 Mcg Inhaler] Calcium Citrate 250 mg PO BID 06/18/19 06/19/19 Cholecalciferol [Vitamin D3 (25 5,000 unit PO DAILY 06/18/19 06/19/19 Mcg = 1000 Iu)] Ferrous Sulfate [Iron (65 MG 325 mg PO DAILY 06/18/19 06/19/19 Elemental)] lamoTRIgine [LaMICtal] 100 mg PO BID 06/18/19 06/19/19 Previous Rx's Medication Instructions Recorded DULoxetine HCL [Cymbalta] 60 mg PO DAILY 28 Days capsule. 05/26/19 Lisinopril [Zestril] 20 mg PO DAILY 28 Days tab 05/26/19 OLANZapine [ZyPREXA] 5 mg PO HS 28 Days tab 05/26/19 chlordiazePOXIDE HCl [Librium] 25 mg PO QID PRN 3 Days #12 capsule 06/03/19 Acetaminophen Tab [Tylenol] 650 mg PO Q4HR PRN tab 06/21/19 Cefuroxime Axetil [Ceftin] 500 mg PO BID 3 Days #6 tab 06/21/19 LORazepam [Ativan] 1 mg PO TID PRN #10 tab 06/21/19 Allergies Allergy/AdvReac Type Severity Reaction Status Date / Time No Known Allergies Allergy Verified 07/05/19 08:30 Review of Systems ROS Statement: Those systems with pertinent positive or pertinent negative responses have been documented in the HPI. ROS Other: All systems not noted in ROS Statement are negative. Past Medical History Past Medical History: GERD/Reflux, Hypertension, Musculoskeletal Disorder, Pneumonia Additional Past Medical History / Comment(s): GI Bleed, kidney stones, degenerative disc disease in lower back and neck, kyphosis and scoliosis, ETOH abuse. IBS, iron deficient anemia. History of Any Multi-Drug Resistant Organisms: None Reported Past Surgical History: Bariatric Surgery, Orthopedic Surgery Additional Past Surgical History / Comment(s): Right inner Forearm-metal plate Past Anesthesia/Blood Transfusion Reactions: No Reported Reaction Past Psychological History: Anxiety, Bipolar, Depression, PTSD Smoking Status: Current every day smoker Past Alcohol Use History: Abuse, Heavy Past Drug Use History: Cocaine, Heroin, Marijuana - Past Family History Mother Family Medical History: Hypertension Additional Family Medical History / Comment(s): Lupus General Exam Limitations: no limitations Course Vital Signs 07/05/19 08:22 Temperature 98.2 F Pulse Rate 103 H Respiratory 18 Rate Blood Pressure 133/97 O2 Sat by Pulse 95 Oximetry Medical Decision Making - Lab Data Result diagrams: 07/05/19 09:05 07/05/19 09:05 Lab Results 07/05/19 07/05/19 07/05/19 Range/Units 09:05 09:05 09:15 WBC 7.9 (3.8-10.6) k/uL RBC 4.95 (4.30-5.90) m/uL Hgb 15.4 (13.0-17.5) gm/dL Hct 47.9 (39.0-53.0) % MCV 96.8 (80.0-100.0) fL MCH 31.2 (25.0-35.0) pg MCHC 32.2 (31.0-37.0) g/dL RDW 13.9 (11.5-15.5) % Plt Count 360 (150-450) k/uL Neutrophils % 71 % Lymphocytes % 19 % Monocytes % 3 % Eosinophils % 3 % Basophils % 1 % Neutrophils # 5.7 (1.3-7.7) k/uL Lymphocytes # 1.5 (1.0-4.8) k/uL Monocytes # 0.3 (0-1.0) k/uL Eosinophils # 0.3 (0-0.7) k/uL Basophils # 0.1 (0-0.2) k/uL Sodium 146 H (137-145) mmol/L Potassium 4.1 (3.5-5.1) mmol/L Chloride 106 (98-107) mmol/L Carbon Dioxide 25 (22-30) mmol/L Anion Gap 15 mmol/L BUN 14 (9-20) mg/dL Creatinine 0.60 L (0.66-1.25) mg/dL Est GFR (CKD-EPI)AfAm >90 (>60 ml/min/1.73 sqM) Est GFR (CKD-EPI)NonAf >90 (>60 ml/min/1.73 sqM) Glucose 166 H (74-99) mg/dL Calcium 9.0 (8.4-10.2) mg/dL Magnesium 1.5 L (1.6-2.3) mg/dL Urine Opiates Screen Not Detected (NotDetected) Ur Oxycodone Screen Not Detected (NotDetected) Urine Methadone Screen Not Detected (NotDetected) Ur Propoxyphene Screen Not Detected (NotDetected) Ur Barbiturates Screen Not Detected (NotDetected) U Tricyclic Antidepress Not Detected (NotDetected) Ur Phencyclidine Scrn Not Detected (NotDetected) Ur Amphetamines Screen Not Detected (NotDetected) U Methamphetamines Scrn Not Detected (NotDetected) U Benzodiazepines Scrn Not Detected (NotDetected) Urine Cocaine Screen Not Detected (NotDetected) U Marijuana (THC) Screen Not Detected (NotDetected) Serum Alcohol 258 H* mg/dL Disposition Clinical Impression: Suicidal ideations Disposition: HOME SELF-CARE Condition: Good Instructions (If sedation given, give patient instructions): Suicide Prevention (ED) Is patient prescribed a controlled substance at d/c from ED?: No Referrals: None,Stated [Primary Care Provider] - 1-2 days Time of Disposition: 16:31
[2019-07-05 09:18] LABS: Basophils # (A) 0.1 k/uL (0-0.2); Basophils % (A) 1 %; Eosinophils # (A) 0.3 k/uL (0-0.7); Eosinophils % (A) 3 %; HCT 47.9 % (39.0-53.0); HGB 15.4 gm/dL (13.0-17.5); Lymphocytes # (A) 1.5 k/uL (1.0-4.8); Lymphocytes % (A) 19 %; MCH 31.2 pg (25.0-35.0); MCHC 32.2 g/dL (31.0-37.0); MCV 96.8 fL (80.0-100.0); Mean Platelet Volume 6.4; Monocytes # (A) 0.3 k/uL (0-1.0); Monocytes % (A) 3 %; Neutrophils # (A) 5.7 k/uL (1.3-7.7); Neutrophils % (A) 71 %; Platelet Count 360 k/uL (150-450); RBC 4.95 m/uL (4.30-5.90); RDW 13.9 % (11.5-15.5); WBC 7.9 k/uL (3.8-10.6)
[2019-07-05 09:28] LABS: African American GFR (CKD) >90 (>60 ml/min/1.73 sqM); Anion Gap 15 mmol/L; Blood Urea Nitrogen 14 mg/dL (9-20); Carbon Dioxide 25 mmol/L (22-30); Chloride 106 mmol/L (98-107); Glucose 166 mg/dL (74-99); Magnesium 1.5 mg/dL (1.6-2.3); Non-African American GFR(CKD) >90 (>60 ml/min/1.73 sqM); Potassium 4.1 mmol/L (3.5-5.1); Sodium 146 mmol/L (137-145)
[2019-07-05 09:35] LABS: Amphetamine Screen,Urine Not Detected (NotDetected); Barbiturate Screen,Urine Not Detected (NotDetected); Benzodiazepines Screen,Urine Not Detected (NotDetected); Cocaine Screen,Urine Not Detected (NotDetected); Methadone Screen, Urine Not Detected (NotDetected); Opiate Screen,Urine Not Detected (NotDetected); Oxycodone Screen, Urine Not Detected (NotDetected); Phencyclidine Screen,Urine Not Detected (NotDetected); Tricyclic Antidepressant,Urine Not Detected (NotDetected); Urn Cannabinoid Scrn Not Detected (NotDetected)
[2019-07-05 09:45] LABS: Alcohol 258 mg/dL
[2019-07-05] MEDS: MAGNESIUM SULFATE-D5W PMX 1 GM in DEXTROSE/WATER 1 100ML.BAG IVPB SCH ×2 (11:36→12:37)
[2019-07-05] MEDS ORDERED: LORazepam 2 MG/ML INJ IV STA (16:23)
[2019-07-05 16:41] VITALS: BP 127/80; PULSE 80
== END 2019-07-05 17:04 | disposition home or self-care (01) ==
LOC: EC 08:17
DX: R45.851 Suicidal ideations (principal); F31.9 Bipolar disorder, unspecified; I10 Essential (primary) hypertension; F17.200 Nicotine dependence, unspecified, uncomplicated; Z79.51 Long term (current) use of inhaled steroids; Z79.899 Other long term (current) drug therapy; Z98.84 Bariatric surgery status
CPT/HCPCS: 82075; 36415; 80048; 83735; 85025; 80306; 99285; 96365; 96366; 96375; G0480; J2060; J3475; 80320

== ENCOUNTER 2019-07-05 22:49 | Emergency (ER) | payer MEDICARE ==
[2019-07-06 05:42] VITALS: BP 104/64; PULSE 85; RESP 17; TEMP 97.8
--- NOTE | 2019-07-06 07:12 | ED ---
Alcohol HPI - General Source: patient, EMS Mode of arrival: EMS - History of Present Illness MD Complaint: alcohol intoxication Last Drink: just [employer] Previous Visits for Alcohol Intoxication?: Yes Recent Trauma: No Associated Symptoms: denies other symptoms Treatments Prior to Arrival: none Chronic Alcohol Use: Yes <Iraj Polanco - Last Filed: 07/06/19 07:10> <Bernardo Rivera - Last Filed: 07/06/19 11:05> - General Chief Complaint: Alcohol Stated Complaint: ETOH Time Seen by Provider: 07/05/19 22:58 - History of Present Illness Initial Comments: this patient is a 53-year-old man who presents to have evaluation for intoxication. The patient had been at his residence, which is currently a motel. He reportedly had become intoxicated and was outside his room without any clothes on. Follow enforcement was called and therefore brought the patient here. Patient denies any injuries. No complaints on arrival. (Iraj Polanco) - Related Data Home Medications Medication Instructions Recorded Confirmed Multivitamins, Thera [Multivitamin 1 tab PO DAILY 05/28/19 06/19/19 (formulary)] Albuterol Sulfate [Ventolin HFA] 1 - 2 puff INHALATION RT-Q6H PRN 06/18/19 06/19/19 Budesonide/Formoterol Fumarate 2 puff INHALATION RT-BID 06/18/19 06/19/19 [Symbicort 160-4.5 Mcg Inhaler] Calcium Citrate 250 mg PO BID 06/18/19 06/19/19 Cholecalciferol [Vitamin D3 (25 5,000 unit PO DAILY 06/18/19 06/19/19 Mcg = 1000 Iu)] Ferrous Sulfate [Iron (65 MG 325 mg PO DAILY 06/18/19 06/19/19 Elemental)] lamoTRIgine [LaMICtal] 100 mg PO BID 06/18/19 06/19/19 Previous Rx's Medication Instructions Recorded DULoxetine HCL [Cymbalta] 60 mg PO DAILY 28 Days rosio. 05/26/19 Lisinopril [Zestril] 20 mg PO DAILY 28 Days tab 05/26/19 OLANZapine [ZyPREXA] 5 mg PO HS 28 Days tab 05/26/19 chlordiazePOXIDE HCl [Librium] 25 mg PO QID PRN 3 Days #12 capsule 06/03/19 Acetaminophen Tab [Tylenol] 650 mg PO Q4HR PRN tab 06/21/19 Cefuroxime Axetil [Ceftin] 500 mg PO BID 3 Days #6 tab 06/21/19 LORazepam [Ativan] 1 mg PO TID PRN #10 tab 06/21/19 Allergies Allergy/AdvReac Type Severity Reaction Status Date / Time No Known Allergies Allergy Verified 07/05/19 08:30 Review of Systems ROS Other: All systems not noted in ROS Statement are negative. Constitutional: Denies: fever Respiratory: Denies: cough, dyspnea Cardiovascular: Denies: chest pain, syncope Gastrointestinal: Denies: abdominal pain, vomiting, diarrhea Musculoskeletal: Denies: back pain Neurological: Denies: headache, weakness, numbness <Iraj Polanco - Last Filed: 07/06/19 07:10> ROS Other: All systems not noted in ROS Statement are negative. <Bernardo Rivera - Last Filed: 07/06/19 11:05> ROS Statement: Those systems with pertinent positive or pertinent negative responses have been documented in the HPI. Past Medical History Past Medical History: GERD/Reflux, Hypertension, Musculoskeletal Disorder, Pneumonia Additional Past Medical History / Comment(s): GI Bleed, kidney stones, degenerative disc disease in lower back and neck, kyphosis and scoliosis, ETOH abuse. IBS, iron deficient anemia. History of Any Multi-Drug Resistant Organisms: None Reported Past Surgical History: Bariatric Surgery, Orthopedic Surgery Additional Past Surgical History / Comment(s): Right inner Forearm-metal plate Past Anesthesia/Blood Transfusion Reactions: No Reported Reaction Past Psychological History: Anxiety, Bipolar, Depression, PTSD Smoking Status: Current every day smoker Past Alcohol Use History: Abuse, Heavy Past Drug Use History: Cocaine, Heroin, Marijuana - Past Family History Mother Family Medical History: Hypertension Additional Family Medical History / Comment(s): Lupus <Iraj Polanco - Last Filed: 07/06/19 07:10> General Exam General appearance: alert, appears intoxicated Head exam: Present: atraumatic, normocephalic Eye exam: Present: normal appearance. Absent: scleral icterus, conjunctival injection Neck exam: Present: normal inspection, full ROM. Absent: tenderness, meningismus Respiratory exam: Present: normal lung sounds bilaterally. Absent: respiratory distress, wheezes, rales, rhonchi, stridor, chest wall tenderness Cardiovascular Exam: Present: regular rate, normal rhythm, normal heart sounds. Absent: systolic murmur, diastolic murmur, rubs, gallop GI/Abdominal exam: Present: soft. Absent: distended, tenderness, mass Extremities exam: Present: normal inspection, normal capillary refill Neurological exam: Present: alert Skin exam: Present: warm, dry, intact, normal color. Absent: rash <Iraj Polanco - Last Filed: 07/06/19 07:10> Course Vital Signs 07/05/19 07/05/19 07/06/19 22:51 23:47 05:30 Temperature 97.4 F L 97.8 F Pulse Rate 85 78 85 Respiratory 18 18 17 Rate Blood Pressure 147/97 123/81 104/64 O2 Sat by Pulse 97 94 L 99 Oximetry Disposition <Iraj Polanco - Last Filed: 07/06/19 07:10> Is patient prescribed a controlled substance at d/c from ED?: No Time of Disposition: 11:05 <Bernardo Rivera - Last Filed: 07/06/19 11:05> Clinical Impression: Alcohol intoxication Disposition: HOME SELF-CARE Condition: Good Instructions (If sedation given, give patient instructions): Alcohol Intoxication (ED) Referrals: None,Stated [Primary Care Provider] - 1-2 days
[2019-07-06] MEDS ORDERED: ONDANSETRON 4 MG ODT STARTER PACK 2 TAB BTL PO STA (11:05)
== END 2019-07-06 11:30 | disposition home or self-care (01) ==
LOC: EC 22:49
DX: F10.129 Alcohol abuse with intoxication, unspecified (principal); F41.9 Anxiety disorder, unspecified; F31.9 Bipolar disorder, unspecified; F17.200 Nicotine dependence, unspecified, uncomplicated; Z79.899 Other long term (current) drug therapy
CPT/HCPCS: 99284 ×2; 82075; 96365; 96366; 96375; 99285; 36415; 80048; 83735; 85025; 80306; G0480; J2060; J3475; S0119; 80320

== ENCOUNTER 2019-11-23 10:09 | Emergency (ER) | payer MEDICARE ==
[2019-11-23 10:25] VITALS: RESP 18
--- NOTE | 2019-11-23 10:25 | ED ---
General Adult HPI - General Stated complaint: Mental health Time Seen by Provider: 11/23/19 10:10 Source: patient Mode of arrival: ambulatory - History of Present Illness Initial comments: Dictation was produced using [employer] dictation software. please excuse any grammatical, word or spelling errors. This patient was cared for during a federal and state declared state of emergency secondary to Covid 19 Chief Complaint: 54-year-old male presents for EPS evaluation. History of Present Illness: 54-year-old male who has past medical history bipolar disease. He is brought in by law enforcement for aggression towards staff. Patient has been aggressive with staff at [facility] [employer]. Patient has no complaints at this time. Denies any medical complaints. Denies any psychiatric complaints. Denies any suicidal homicidal ideation. No visual auditory hallucination. He wants a urine drug screen obtained because he thinks is being [facility]. The ROS documented in this emergency department record has been reviewed and confirmed by me. Those systems with pertinent positive or negative responses have been documented in the HPI. All other systems are other negative and/or noncontributory. PHYSICAL EXAM: General Impression: Alert and oriented x3, not in acute distress HEENT: Normocephalic atraumatic, extra-ocular movements intact, pupils equal and reactive to light bilaterally, mucous membranes moist. Cardiovascular: Heart regular rate and rhythm Chest: Able to complete full sentences, no retractions, no tachypnea Abdomen: abdomen soft, non-tender, non-distended, no organomegaly Musculoskeletal: Pulses present and equal in all extremities, no peripheral edema Motor: no focal deficits noted Neurological: CN II-XII grossly intact, no focal motor or sensory deficits noted Skin: Intact with no visualized rashes Psych: Normal affect and mood ED course: 54-year-old male brought in for EPS evaluation. All signs upon arrival are within acceptable limits. Patient medically cleared for EPS evaluation.Patient was evaluated by EPS. Discharge plan was performed. Patient understandable agreeable to plan. Patient evaluated bedside with stable medical condition. He is cooperative and calm. - Related Data Home Medications Medication Instructions Recorded Confirmed Multivitamins, Thera [Multivitamin 1 tab PO DAILY 05/28/19 06/19/19 (formulary)] Albuterol Sulfate [Ventolin HFA] 1 - 2 puff INHALATION RT-Q6H PRN 06/18/19 06/19/19 Budesonide/Formoterol Fumarate 2 puff INHALATION RT-BID 06/18/19 06/19/19 [Symbicort 160-4.5 Mcg Inhaler] Calcium Citrate 250 mg PO BID 06/18/19 06/19/19 Cholecalciferol [Vitamin D3 (25 5,000 unit PO DAILY 06/18/19 06/19/19 Mcg = 1000 Iu)] Ferrous Sulfate [Iron (65 MG 325 mg PO DAILY 06/18/19 06/19/19 Elemental)] lamoTRIgine [LaMICtal] 100 mg PO BID 06/18/19 06/19/19 Previous Rx's Medication Instructions Recorded DULoxetine HCL [Cymbalta] 60 mg PO DAILY 28 Days capsule. 05/26/19 Lisinopril [Zestril] 20 mg PO DAILY 28 Days tab 05/26/19 OLANZapine [ZyPREXA] 5 mg PO HS 28 Days tab 05/26/19 chlordiazePOXIDE HCl [Librium] 25 mg PO QID PRN 3 Days #12 capsule 06/03/19 Acetaminophen Tab [Tylenol] 650 mg PO Q4HR PRN tab 06/21/19 Cefuroxime Axetil [Ceftin] 500 mg PO BID 3 Days #6 tab 06/21/19 LORazepam [Ativan] 1 mg PO TID PRN #10 tab 06/21/19 Allergies Allergy/AdvReac Type Severity Reaction Status Date / Time No Known Allergies Allergy Verified 11/23/19 10:24 Review of Systems ROS Statement: Those systems with pertinent positive or pertinent negative responses have been documented in the HPI. ROS Other: All systems not noted in ROS Statement are negative. Past Medical History Past Medical History: GERD/Reflux, Hypertension, Musculoskeletal Disorder, Pneumonia Additional Past Medical History / Comment(s): GI Bleed, kidney stones, degenerative disc disease in lower back and neck, kyphosis and scoliosis, ETOH abuse. IBS, iron deficient anemia. History of Any Multi-Drug Resistant Organisms: None Reported Past Surgical History: Bariatric Surgery, Orthopedic Surgery Additional Past Surgical History / Comment(s): Right inner Forearm-metal plate Past Anesthesia/Blood Transfusion Reactions: No Reported Reaction Past Psychological History: Anxiety, Bipolar, Depression, PTSD Smoking Status: Current every day smoker Past Alcohol Use History: Abuse, Heavy Past Drug Use History: Cocaine, Heroin, Marijuana - Past Family History Mother Family Medical History: Hypertension Additional Family Medical History / Comment(s): Lupus Course Vital Signs 11/23/19 10:18 Temperature 98.4 F Respiratory 18 Rate Blood Pressure 169/116 O2 Sat by Pulse 98 Oximetry Medical Decision Making - Lab Data Lab Results 11/23/19 Range/Units 10:30 Urine Opiates Screen Not Detected (NotDetected) Ur Oxycodone Screen Not Detected (NotDetected) Urine Methadone Screen Not Detected (NotDetected) Ur Propoxyphene Screen Not Detected (NotDetected) Ur Barbiturates Screen Not Detected (NotDetected) U Tricyclic Antidepress Not Detected (NotDetected) Ur Phencyclidine Scrn Not Detected (NotDetected) Ur Amphetamines Screen Not Detected (NotDetected) U Methamphetamines Scrn Not Detected (NotDetected) U Benzodiazepines Scrn Not Detected (NotDetected) Urine Cocaine Screen Not Detected (NotDetected) U Marijuana (THC) Screen Not Detected (NotDetected) Disposition Clinical Impression: Aggressive behavior Disposition: HOME SELF-CARE Condition: Good Instructions (If sedation given, give patient instructions): Conduct Disorder (ED) Is patient prescribed a controlled substance at d/c from ED?: No Referrals: None,Stated [Primary Care Provider] - 1-2 days Time of Disposition: 13:09
[2019-11-23 11:08] LABS: Amphetamine Screen,Urine Not Detected (NotDetected); Cocaine Screen,Urine Not Detected (NotDetected); Opiate Screen,Urine Not Detected (NotDetected); Phencyclidine Screen,Urine Not Detected (NotDetected); Urn Cannabinoid Scrn Not Detected (NotDetected)
[2019-11-23 11:09] LABS: Barbiturate Screen,Urine Not Detected (NotDetected); Benzodiazepines Screen,Urine Not Detected (NotDetected); Methadone Screen, Urine Not Detected (NotDetected); Oxycodone Screen, Urine Not Detected (NotDetected); Tricyclic Antidepressant,Urine Not Detected (NotDetected)
[2019-11-23 13:22] VITALS: BP 168/110; PULSE 99; TEMP 98.1
== END 2019-11-23 13:20 | disposition home or self-care (01) ==
LOC: EC 10:09
DX: R45.6 Violent behavior (principal); F31.9 Bipolar disorder, unspecified; D50.9 Iron deficiency anemia, unspecified; F10.10 Alcohol abuse, uncomplicated; F17.200 Nicotine dependence, unspecified, uncomplicated; Z79.899 Other long term (current) drug therapy
CPT/HCPCS: 80306; 82075; 99285

== ENCOUNTER 2020-01-26 16:26 | Emergency (ER) | payer MEDICARE ==
[2020-01-26 16:34] VITALS: BP 161/99; PULSE 78; RESP 16; TEMP 98.5
[2020-01-26] MEDS ORDERED: ONDANSETRON ODT 4 MG TAB PO STA (17:20)
--- NOTE | 2020-01-26 17:29 | ED ---
General Adult HPI - General Chief complaint: Nausea/Vomiting/Diarrhea Stated complaint: dehydration/near syncope Time Seen by Provider: 01/26/20 17:16 Source: patient, RN notes reviewed Mode of arrival: ambulatory Limitations: no limitations - History of Present Illness Initial comments: 54-year-old male with a past medical history of alcohol abuse, cocaine abuse, heroin abuse, marijuana, GERD, hypertension presents to the emergency department for a chief complaint of nausea. Patient states he was sitting in the park when he started to feel very hot out. States he started to get nauseous so decided to call 911. Patient requesting something to drink like water upon arrival. Patient states he thinks he sat out in the sun and heat too long given it is a 90 day outside and he was sitting there for hours. Patient denies abdominal pain. Denies chest pain or shortness of breath. Patient denies having drink any alcohol.Patient has no other complaints at this time including shortness of breath, chest pain, abdominal pain, nausea or vomiting, headache, or visual changes. - Related Data Home Medications Medication Instructions Recorded Confirmed Multivitamins, Thera [Multivitamin 1 tab PO DAILY 05/28/19 06/19/19 (formulary)] Albuterol Sulfate [Ventolin HFA] 1 - 2 puff INHALATION RT-Q6H PRN 06/18/19 06/19/19 Budesonide/Formoterol Fumarate 2 puff INHALATION RT-BID 06/18/19 06/19/19 [Symbicort 160-4.5 Mcg Inhaler] Calcium Citrate 250 mg PO BID 06/18/19 06/19/19 Cholecalciferol [Vitamin D3 (25 5,000 unit PO DAILY 06/18/19 06/19/19 Mcg = 1000 Iu)] Ferrous Sulfate [Iron (65 MG 325 mg PO DAILY 06/18/19 06/19/19 Elemental)] lamoTRIgine [LaMICtal] 100 mg PO BID 06/18/19 06/19/19 Previous Rx's Medication Instructions Recorded DULoxetine HCL [Cymbalta] 60 mg PO DAILY 28 Days rosio. 05/26/19 Lisinopril [Zestril] 20 mg PO DAILY 28 Days tab 05/26/19 OLANZapine [ZyPREXA] 5 mg PO HS 28 Days tab 05/26/19 chlordiazePOXIDE HCl [Librium] 25 mg PO QID PRN 3 Days #12 capsule 06/03/19 Acetaminophen Tab [Tylenol] 650 mg PO Q4HR PRN tab 06/21/19 Cefuroxime Axetil [Ceftin] 500 mg PO BID 3 Days #6 tab 06/21/19 LORazepam [Ativan] 1 mg PO TID PRN #10 tab 06/21/19 Allergies Allergy/AdvReac Type Severity Reaction Status Date / Time No Known Allergies Allergy Verified 01/26/20 16:31 Review of Systems ROS Statement: Those systems with pertinent positive or pertinent negative responses have been documented in the HPI. ROS Other: All systems not noted in ROS Statement are negative. Past Medical History Past Medical History: GERD/Reflux, Hypertension, Musculoskeletal Disorder, Pneu monia Additional Past Medical History / Comment(s): GI Bleed, kidney stones, degenerative disc disease in lower back and neck, kyphosis and scoliosis, ETOH abuse. IBS, iron deficient anemia. History of Any Multi-Drug Resistant Organisms: None Reported Past Surgical History: Bariatric Surgery, Orthopedic Surgery Additional Past Surgical History / Comment(s): Right inner Forearm-metal plate Past Anesthesia/Blood Transfusion Reactions: No Reported Reaction Past Psychological History: Anxiety, Bipolar, Depression, PTSD Smoking Status: Current every day smoker Past Alcohol Use History: Abuse, Heavy Past Drug Use History: Cocaine, Heroin, Marijuana - Past Family History Mother Family Medical History: Hypertension Additional Family Medical History / Comment(s): Lupus General Exam Limitations: no limitations General appearance: alert, in no apparent distress Head exam: Present: atraumatic, normocephalic, normal inspection Eye exam: Present: normal appearance, PERRL, EOMI. Absent: scleral icterus, conjunctival injection, periorbital swelling ENT exam: Present: normal exam, mucous membranes moist Neck exam: Present: normal inspection, full ROM. Absent: tenderness, meningismus, lymphadenopathy Respiratory exam: Present: normal lung sounds bilaterally. Absent: respiratory distress, wheezes, rales, rhonchi, stridor Cardiovascular Exam: Present: regular rate, normal rhythm, normal heart sounds. Absent: systolic murmur, diastolic murmur, rubs, gallop, clicks GI/Abdominal exam: Present: soft, normal bowel sounds. Absent: distended, tenderness, guarding, rebound, rigid Neurological exam: Present: alert, oriented X3, normal gait Course Vital Signs 01/26/20 16:31 Temperature 98.5 F Pulse Rate 78 Respiratory 16 Rate Blood Pressure 161/99 O2 Sat by Pulse 96 Oximetry Medical Decision Making - Medical Decision Making Vitals are stable. CBC CMP is unremarkable. EKG shows a normal sinus rhythm. Patient was given fluids and Zofran and had significant improvement in symptoms. I suspect this is likely secondary to heat exhaustion given patient was outside for several hours. Patient will follow up with primary care in 1-2 days. He'll return for any worsening symptoms. - Lab Data Result diagrams: 01/26/20 18:27 01/26/20 18:27 Lab Results 01/26/20 01/26/20 Range/Units 18:27 18:27 WBC 7.2 (3.8-10.6) k/uL RBC 4.21 L (4.30-5.90) m/uL Hgb 13.3 (13.0-17.5) gm/dL Hct 41.2 (39.0-53.0) % MCV 97.9 (80.0-100.0) fL MCH 31.6 (25.0-35.0) pg MCHC 32.2 (31.0-37.0) g/dL RDW 13.4 (11.5-15.5) % Plt Count 274 (150-450) k/uL Neutrophils % 65 % Lymphocytes % 24 % Monocytes % 5 % Eosinophils % 2 % Basophils % 1 % Neutrophils # 4.7 (1.3-7.7) k/uL Lymphocytes # 1.7 (1.0-4.8) k/uL Monocytes # 0.4 (0-1.0) k/uL Eosinophils # 0.1 (0-0.7) k/uL Basophils # 0.1 (0-0.2) k/uL Sodium 138 (137-145) mmol/L Potassium 3.9 (3.5-5.1) mmol/L Chloride 106 (98-107) mmol/L Carbon Dioxide 26 (22-30) mmol/L Anion Gap 6 mmol/L BUN 14 (9-20) mg/dL Creatinine 0.53 L (0.66-1.25) mg/dL Est GFR (CKD-EPI)AfAm >90 (>60 ml/min/1.73 sqM) Est GFR (CKD-EPI)NonAf >90 (>60 ml/min/1.73 sqM) Glucose 85 (74-99) mg/dL Calcium 9.1 (8.4-10.2) mg/dL Total Bilirubin 0.5 (0.2-1.3) mg/dL AST 33 (17-59) U/L ALT 14 (4-49) U/L Alkaline Phosphatase 75 (38-126) U/L Total Protein 6.4 (6.3-8.2) g/dL Albumin 3.9 (3.5-5.0) g/dL Amylase 59 (30-110) U/L Lipase 99 (23-300) U/L Disposition Clinical Impression: Nausea Disposition: HOME SELF-CARE Condition: Good Instructions (If sedation given, give patient instructions): Acute Nausea and Vomiting (ED) Additional Instructions: Please follow up with primary care in 1-2 days. Please return here to the emergency room for any worsening symptoms. Is patient prescribed a controlled substance at d/c from ED?: No Referrals: Checo Parnell MD [REFERRING] - 1-2 days Time of Disposition: 19:25
[2020-01-26] MEDS ORDERED: SODIUM CHLORIDE 0.9% 1,000 ML IV STA (17:51)
[2020-01-26 18:33] LABS: Basophils # (A) 0.1 k/uL (0-0.2); Basophils % (A) 1 %; Eosinophils # (A) 0.1 k/uL (0-0.7); Eosinophils % (A) 2 %; HCT 41.2 % (39.0-53.0); HGB 13.3 gm/dL (13.0-17.5); Lymphocytes # (A) 1.7 k/uL (1.0-4.8); Lymphocytes % (A) 24 %; MCH 31.6 pg (25.0-35.0); MCHC 32.2 g/dL (31.0-37.0); MCV 97.9 fL (80.0-100.0); Mean Platelet Volume 6.9; Monocytes # (A) 0.4 k/uL (0-1.0); Monocytes % (A) 5 %; Neutrophils # (A) 4.7 k/uL (1.3-7.7); Neutrophils % (A) 65 %; Platelet Count 274 k/uL (150-450); RBC 4.21 m/uL (4.30-5.90); RDW 13.4 % (11.5-15.5); WBC 7.2 k/uL (3.8-10.6)
[2020-01-26 18:52] LABS: ALT 14 U/L (4-49); AST 33 U/L (17-59); African American GFR (CKD) >90 (>60 ml/min/1.73 sqM); Albumin 3.9 g/dL (3.5-5.0); Alkaline Phosphatase 75 U/L (38-126); Amylase 59 U/L (30-110); Anion Gap 6 mmol/L; Blood Urea Nitrogen 14 mg/dL (9-20); Calcium 9.1 mg/dL (8.4-10.2); Carbon Dioxide 26 mmol/L (22-30); Chloride 106 mmol/L (98-107); Glucose 85 mg/dL (74-99); Non-African American GFR(CKD) >90 (>60 ml/min/1.73 sqM); Potassium 3.9 mmol/L (3.5-5.1); Sodium 138 mmol/L (137-145); Total Bilirubin 0.5 mg/dL (0.2-1.3); Total Protein 6.4 g/dL (6.3-8.2)
== END 2020-01-26 19:36 | disposition home or self-care (01) ==
LOC: EC 16:26
DX: R11.0 Nausea (principal); I10 Essential (primary) hypertension; K21.9 Gastro-esophageal reflux disease without esophagitis; F31.9 Bipolar disorder, unspecified; F17.200 Nicotine dependence, unspecified, uncomplicated; Z79.51 Long term (current) use of inhaled steroids; Z79.899 Other long term (current) drug therapy; Z98.84 Bariatric surgery status
CPT/HCPCS: 36415; 80053; 82150; 83690; 85025; 93005; 96360; 99283

== ENCOUNTER 2020-02-13 21:00 | Emergency (ER) | payer MEDICARE ==
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
[2020-02-13 22:10] LABS: Appearance,Urine Clear (Clear); Bilirubin,Urine Negative (Negative); Blood,Urine Moderate (Negative); Color,Urine Yellow; Glucose,Urine (UA) Negative (Negative); Ketones,Urine Negative (Negative); Leukocyte Esterase,Urine Negative (Negative); Nitrite,Urine Negative (Negative); Protein,Urine Negative (Negative); RBC,Urine 4 /hpf (0-5); Specific Gravity,Urine 1.006 (1.001-1.035); Squamous Epithelial Cell,Urine <1 /hpf (0-4); Urobilinogen,Urine <2.0 mg/dL (<2.0); WBC,Urine <1 /hpf (0-5)
[2020-02-13 22:19] LABS: HCT 41.5 % (39.0-53.0); HGB 13.9 gm/dL (13.0-17.5); MCH 32.8 pg (25.0-35.0); MCHC 33.5 g/dL (31.0-37.0); MCV 97.9 fL (80.0-100.0); Mean Platelet Volume 6.6; Platelet Count 316 k/uL (150-450); RBC 4.24 m/uL (4.30-5.90); RDW 13.1 % (11.5-15.5); WBC 8.5 k/uL (3.8-10.6)
[2020-02-13 22:33] LABS: ALT 14 U/L (4-49); AST 30 U/L (17-59); African American GFR (CKD) >90 (>60 ml/min/1.73 sqM); Albumin 4.1 g/dL (3.5-5.0); Alkaline Phosphatase 73 U/L (38-126); Anion Gap 13 mmol/L; Blood Urea Nitrogen 10 mg/dL (9-20); Calcium 9.2 mg/dL (8.4-10.2); Carbon Dioxide 20 mmol/L (22-30); Chloride 105 mmol/L (98-107); Glucose 168 mg/dL (74-99); Non-African American GFR(CKD) >90 (>60 ml/min/1.73 sqM); Potassium 4.2 mmol/L (3.5-5.1); Sodium 138 mmol/L (137-145); Total Bilirubin 0.5 mg/dL (0.2-1.3); Total Protein 6.7 g/dL (6.3-8.2)
[2020-02-14 11:44] VITALS: BP 145/79; PULSE 68; RESP 18; TEMP 98.8
[2020-02-14 11:51] LABS: Urine Alcohol Positive (Negative); Urine Barbiturate Negative (Negative); Urine Cocaine Negative (Negative); Urine Methadone Negative (Negative); Urine Opiates Negative (Negative); Urine Phencyclidine Negative (Negative)
== END 2020-02-14 14:31 | disposition other institution (70) ==
LOC: EC 21:00
DX: F32.9 Major depressive disorder, single episode, unspecified (principal); F10.129 Alcohol abuse with intoxication, unspecified; R45.850 Homicidal ideations
CPT/HCPCS: 36415; 80053; 80306; 81001; 82075; 85027; 99285

== ENCOUNTER 2020-03-30 02:28 | Inpatient (IN) | payer MEDICARE ==
--- NOTE | 2020-03-30 03:21 | ED ---
Psych HPI <Master Herbert - Last Filed: 03/30/20 13:55> - General Source: patient, police Mode of arrival: ambulatory <Kiya Pichardo - Last Filed: 03/30/20 22:08> - General Chief Complaint: Psychiatric Symptoms Stated Complaint: Mental health Time Seen by Provider: 03/30/20 02:42 - History of Present Illness Initial Comments: Chris is a 54-year-old male who is brought to ER today by police. Patient is currently homeless he [place] when he kept hearing people talking about him. Patient became concerned that people are going to try to kill him. Patient called the police because he felt like people were following him through the forest. Patient also states that he has no active suicidal plan but he doesn't want to be alive anymore and that he doesn't want to live like this. (Kiya Pichardo) - Related Data Home Medications Medication Instructions Recorded Confirmed No Known Home Medications 02/13/20 03/30/20 Allergies Allergy/AdvReac Type Severity Reaction Status Date / Time No Known Allergies Allergy Verified 03/30/20 08:24 Review of Systems ROS Other: All systems not noted in ROS Statement are negative. <Master Herbert - Last Filed: 03/30/20 13:55> ROS Other: All systems not noted in ROS Statement are negative. <Kiya Pichardo - Last Filed: 03/30/20 22:08> ROS Statement: Those systems with pertinent positive or pertinent negative responses have been documented in the HPI. Past Medical History Past Medical History: GERD/Reflux, Hypertension, Musculoskeletal Disorder, Pneumonia Additional Past Medical History / Comment(s): GI Bleed, kidney stones, degenerative disc disease in lower back and neck, kyphosis and scoliosis, ETOH abuse. IBS, iron deficient anemia. History of Any Multi-Drug Resistant Organisms: None Reported Past Surgical History: Bariatric Surgery, Orthopedic Surgery Additional Past Surgical History / Comment(s): Right inner Forearm-metal plate Past Anesthesia/Blood Transfusion Reactions: No Reported Reaction Past Psychological History: Anxiety, Bipolar, Depression, PTSD Smoking Status: Current every day smoker Past Alcohol Use History: Abuse, Heavy Past Drug Use History: Cocaine, Heroin, Marijuana - Past Family History Mother Family Medical History: Hypertension Additional Family Medical History / Comment(s): Lupus <Kiya Pichardo - Last Filed: 03/30/20 22:08> General Exam Limitations: no limitations <Kiya Pichardo - Last Filed: 03/30/20 22:08> - General Exam Comments Initial Comments: Physical Exam GENERAL: Patient is well-developed and well-nourished. Patient is nontoxic and well-hydrated and is in no distress. HENT: Normocephalic, Atraumatic. EYES: PERRL, EOMI PULMONARY: Unlabored respirations. CARDIOVASCULAR: RRR Warm and well perfused extremities ABDOMEN: Non-distended SKIN: No rashes or bruising : Deferred NEUROLOGIC: Alert and oriented Normal speech Normal gait MUSCULOSKELETAL: Moving all extremities with no apparent injury PSYCHIATRIC: Depressed, paranoid (Kiya Pichardo) Course Vital Signs 03/30/20 03/30/20 02:49 07:32 Temperature 98 F Pulse Rate 100 72 Respiratory 18 16 Rate Blood Pressure 115/81 122/76 O2 Sat by Pulse 98 99 Oximetry Medical Decision Making - Lab Data Result diagrams: 03/30/20 03:08 03/30/20 03:08 <Master Herbert - Last Filed: 03/30/20 13:55> - Lab Data Result diagrams: 03/30/20 03:08 03/30/20 03:08 <Kiya Pichardo - Last Filed: 03/30/20 22:08> - Medical Decision Making The patient was seen and evaluated history is obtained from patient Patient sitting up comfortably eating in no acute distress reports he feels like people are following him and going to kill him Patient states that he doesn't want to be alive but has no active suicidal plan Patient was petitioned by police Patient is intoxicated on arrival but medically cleared for evaluation by psychiatry at 5:45 AM Patient care is signed out to Dr. Herbert, patient is pending evaluation by the emergency psychiatric services (Kiya Pichardo) - Lab Data Lab Results 03/30/20 03/30/20 03/30/20 Range/Units 03:08 03:08 03:08 WBC 6.4 (3.8-10.6) k/uL RBC 4.37 (4.30-5.90) m/uL Hgb 13.5 (13.0-17.5) gm/dL Hct 42.2 (39.0-53.0) % MCV 96.5 (80.0-100.0) fL MCH 31.0 (25.0-35.0) pg MCHC 32.1 (31.0-37.0) g/dL RDW 13.2 (11.5-15.5) % Plt Count 339 (150-450) k/uL Neutrophils % 54 % Lymphocytes % 35 % Monocytes % 4 % Eosinophils % 5 % Basophils % 1 % Neutrophils # 3.4 (1.3-7.7) k/uL Lymphocytes # 2.2 (1.0-4.8) k/uL Monocytes # 0.2 (0-1.0) k/uL Eosinophils # 0.3 (0-0.7) k/uL Basophils # 0.1 (0-0.2) k/uL Sodium 141 (137-145) mmol/L Potassium 3.7 (3.5-5.1) mmol/L Chloride 107 (98-107) mmol/L Carbon Dioxide 18 L (22-30) mmol/L Anion Gap 16 mmol/L BUN 13 (9-20) mg/dL Creatinine 0.53 L (0.66-1.25) mg/dL Est GFR (CKD-EPI)AfAm >90 (>60 ml/min/1.73 sqM) Est GFR (CKD-EPI)NonAf >90 (>60 ml/min/1.73 sqM) Glucose 138 H (74-99) mg/dL Calcium 9.2 (8.4-10.2) mg/dL Total Bilirubin 0.3 (0.2-1.3) mg/dL AST 35 (17-59) U/L ALT 19 (4-49) U/L Alkaline Phosphatase 70 (38-126) U/L Total Protein 6.9 (6.3-8.2) g/dL Albumin 4.2 (3.5-5.0) g/dL Urine Color Light Yellow Urine Appearance Clear (Clear) Urine pH 5.0 (5.0-8.0) Ur Specific [place] 1.007 (1.001-1.035) Urine Protein Negative (Negative) Urine Glucose (UA) Negative (Negative) Urine Ketones Negative (Negative) Urine Blood Small H (Negative) Urine Nitrite Negative (Negative) Urine Bilirubin Negative (Negative) Urine Urobilinogen <2.0 (<2.0) mg/dL Ur Leukocyte Esterase Negative (Negative) Urine RBC 5 (0-5) /hpf Urine WBC <1 (0-5) /hpf Ur Squamous Epith Cells <1 (0-4) /hpf Hyaline Casts 3 H (0-2) /lpf Urine Mucus Rare H (None) /hpf Salicylates <1.0 mg/dL Urine Opiates Screen Not Detected (NotDetected) Ur Oxycodone Screen Not Detected (NotDetected) Urine Methadone Screen Not Detected (NotDetected) Ur Propoxyphene Screen Not Detected (NotDetected) Acetaminophen <10.0 ug/mL Ur Barbiturates Screen Not Detected (NotDetected) U Tricyclic Antidepress Not Detected (NotDetected) Ur Phencyclidine Scrn Not Detected (NotDetected) Ur Amphetamines Screen Not Detected (NotDetected) U Methamphetamines Scrn Not Detected (NotDetected) U Benzodiazepines Scrn Not Detected (NotDetected) Urine Cocaine Screen Not Detected (NotDetected) U Marijuana (THC) Screen Not Detected (NotDetected) Serum Alcohol 130 mg/dL Disposition Time of Disposition: 13:56 <Master Herbert - Last Filed: 03/30/20 13:55> <Kiya Pichardo - Last Filed: 03/30/20 22:08> Clinical Impression: Suicidal ideation Disposition: ADMITTED IP TO THIS HOSP
[2020-03-30 03:40] LABS: Basophils # (A) 0.1 k/uL (0-0.2); Basophils % (A) 1 %; Eosinophils # (A) 0.3 k/uL (0-0.7); Eosinophils % (A) 5 %; HCT 42.2 % (39.0-53.0); HGB 13.5 gm/dL (13.0-17.5); Lymphocytes # (A) 2.2 k/uL (1.0-4.8); Lymphocytes % (A) 35 %; MCHC 32.1 g/dL (31.0-37.0); MCV 96.5 fL (80.0-100.0); Mean Platelet Volume 6.8; Monocytes # (A) 0.2 k/uL (0-1.0); Monocytes % (A) 4 %; Neutrophils # (A) 3.4 k/uL (1.3-7.7); Neutrophils % (A) 54 %; Platelet Count 339 k/uL (150-450); RBC 4.37 m/uL (4.30-5.90); RDW 13.2 % (11.5-15.5); WBC 6.4 k/uL (3.8-10.6)
[2020-03-30 03:48] LABS: Appearance,Urine Clear (Clear); Bilirubin,Urine Negative (Negative); Blood,Urine Small (Negative); Color,Urine Light Yellow; Glucose,Urine (UA) Negative (Negative); Hyaline Casts,Urine 3 /lpf (0-2); Ketones,Urine Negative (Negative); Leukocyte Esterase,Urine Negative (Negative); Mucus,Urine Rare /hpf; Nitrite,Urine Negative (Negative); Protein,Urine Negative (Negative); RBC,Urine 5 /hpf (0-5); Specific Gravity,Urine 1.007 (1.001-1.035); Squamous Epithelial Cell,Urine <1 /hpf (0-4); Urobilinogen,Urine <2.0 mg/dL (<2.0); WBC,Urine <1 /hpf (0-5)
[2020-03-30 03:49] LABS: ALT 19 U/L (4-49); AST 35 U/L (17-59); Acetaminophen <10.0 ug/mL; African American GFR (CKD) >90 (>60 ml/min/1.73 sqM); Albumin 4.2 g/dL (3.5-5.0); Alkaline Phosphatase 70 U/L (38-126); Anion Gap 16 mmol/L; Blood Urea Nitrogen 13 mg/dL (9-20); Calcium 9.2 mg/dL (8.4-10.2); Carbon Dioxide 18 mmol/L (22-30); Chloride 107 mmol/L (98-107); Glucose 138 mg/dL (74-99); Non-African American GFR(CKD) >90 (>60 ml/min/1.73 sqM); Potassium 3.7 mmol/L (3.5-5.1); Salicylate <1.0 mg/dL; Sodium 141 mmol/L (137-145); Total Bilirubin 0.3 mg/dL (0.2-1.3); Total Protein 6.9 g/dL (6.3-8.2)
[2020-03-30 03:58] LABS: Amphetamine Screen,Urine Not Detected (NotDetected); Barbiturate Screen,Urine Not Detected (NotDetected); Benzodiazepines Screen,Urine Not Detected (NotDetected); Cocaine Screen,Urine Not Detected (NotDetected); Methadone Screen, Urine Not Detected (NotDetected); Opiate Screen,Urine Not Detected (NotDetected); Oxycodone Screen, Urine Not Detected (NotDetected); Phencyclidine Screen,Urine Not Detected (NotDetected); Tricyclic Antidepressant,Urine Not Detected (NotDetected); Urn Cannabinoid Scrn Not Detected (NotDetected)
[2020-03-30 04:16] LABS: Alcohol 130 mg/dL
[2020-03-30] MEDS ORDERED: MAGNESIUM HYDROXIDE 2,400 MG/10 ML CUP PO PRN (14:30)
[2020-03-30] MEDS ORDERED: MAG HYDROX/AL HYDROX/SIMETH 30 ML CUP PO PRN (14:30)
[2020-03-30] MEDS ORDERED: ZIPRASIDONE 20 MG VIAL IM PRN (14:30)
[2020-03-30] MEDS ORDERED: LORazepam 1 MG TAB PO PRN (14:30)
[2020-03-30] MEDS ORDERED: ACETAMINOPHEN TAB 325 MG TAB PO PRN (14:30)
[2020-03-31] MEDS: NICOTINE 14MG/24HR PATCH TRANSDERM SCH (10:16)
[2020-03-31 10:59] LABS: ALT 20 U/L (4-49); AST 49 U/L (17-59); African American GFR (CKD) >90 (>60 ml/min/1.73 sqM); Alkaline Phosphatase 51 U/L (38-126); Anion Gap 8 mmol/L; Blood Urea Nitrogen 17 mg/dL (9-20); Calcium 8.9 mg/dL (8.4-10.2); Carbon Dioxide 23 mmol/L (22-30); Chloride 104 mmol/L (98-107); Glucose 135 mg/dL (74-99); Non-African American GFR(CKD) >90 (>60 ml/min/1.73 sqM); Sodium 135 mmol/L (137-145); Total Bilirubin 1.4 mg/dL (0.2-1.3); Total Protein 6.9 g/dL (6.3-8.2)
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
[2020-04-01] MEDS: lamoTRIgine 25 MG TAB PO SCH (09:27)
[2020-04-01] MEDS: DULoxetine HCL 30 MG CAPSULE.DR PO SCH (09:27)
[2020-04-01] MEDS: NICOTINE 14MG/24HR PATCH TRANSDERM SCH (09:27)
--- NOTE | 2020-04-01 11:04 | P.PN ---
Subjective Progress Note Date: 04/01/20 Principal diagnosis: Bipolar disorder unspecified Alcohol abuse Cocaine dependence Subjective the patient says that he is putting together a discharge plan that he been going to groups and classes and his depression is decreasing and is looking forward to getting back on the Lamictal and Cymbalta he says he slept well and his appetite is fine Objective: Labs were run yesterday a general chemistry sugar was high as he already knows bilirubin was sodium and potassium were up no other labs and not thought to have an acute issue Vital signs: Temperature 98.3 heart rate 73 respirations 16 blood pressure 158/81 Groups the patient has been attending he spontaneous verbal stay for the full group does not need much assistance Staff assessment of the patient is alert falls commands denies homicidality's suicidality no evidence of delusions and there denied seems appropriate Mental status exam patient is somewhat sleepy serious affect slow psychomotor activity but cooperative logical good eye contact Assessment he seems to be calming down out of his suicidal depression not because the medicines but just being in a structured environment plan is to discharge him tomorrow continue the titration of Cymbalta and Lamictal. Objective - Vital Signs Vital signs: Vital Signs Temp 98.3 F 04/01/20 06:36 Pulse 73 04/01/20 06:36 Resp 16 04/01/20 06:36 BP 158/81 04/01/20 06:36 Pulse Ox 97 03/30/20 15:35 - Labs CBC & Chem 7: 03/30/20 03:08 03/31/20 09:56 Labs: Abnormal Lab Results - Last 24 Hours (Table) 03/31/20 Range/Units 09:56 Sodium 135 L (137-145) mmol/L Potassium 6.0 H (3.5-5.1) mmol/L Creatinine 0.51 L (0.66-1.25) mg/dL Glucose 135 H (74-99) mg/dL Total Bilirubin 1.4 H (0.2-1.3) mg/dL
--- NOTE | 2020-04-01 22:06 | P.CONS ---
History of Present Illness - Reason for Consult Consult date: 03/31/20 medical eval - Chief Complaint suicidal - History of Present Illness Jonathan Parsons is a 54 yo M with PMH of PTSD, Bipolar disorder who presented to the ED via EMS with hallucinations and suicidal ideation. He was [place] police [place] and was afraid he people were out to get him. He has not followed with his PCP in quite some time due to finances. He is asymptomatic otherwise and denies chest pain, shortness of breath, nausea, vomiting or abdominal pain. He has overall been mildly hypertensive since his admission and labs do show random glucose of 130. Review of Systems All systems: negative Constitutional: Denies chills, Denies fever Eyes: denies blurred vision, denies pain Ears, nose, mouth and throat: Denies headache, Denies sore throat Cardiovascular: Denies chest pain, Denies shortness of breath Respiratory: Denies cough Gastrointestinal: Denies abdominal pain, Denies diarrhea, Denies nausea, Denies vomiting Musculoskeletal: Denies myalgias Integumentary: Denies pruritus, Denies rash Neurological: Denies numbness, Denies weakness Psychiatric: Reports as per HPI, Reports anxiety, Reports depression, Reports suicidal ideation Endocrine: Denies fatigue, Denies weight change Past Medical History Past Medical History: GERD/Reflux, Hypertension, Musculoskeletal Disorder, Pneumonia Additional Past Medical History / Comment(s): GI Bleed, kidney stones, degenerative disc disease in lower back and neck, kyphosis and scoliosis, ETOH abuse. IBS, iron deficient anemia. History of Any Multi-Drug Resistant Organisms: None Reported Past Surgical History: Bariatric Surgery, Orthopedic Surgery Additional Past Surgical History / Comment(s): Right inner Forearm-metal plate Past Anesthesia/Blood Transfusion Reactions: No Reported Reaction Past Psychological History: Anxiety, Bipolar, Depression, PTSD Smoking Status: Current every day smoker Past Alcohol Use History: Abuse, Heavy Past Drug Use History: Cocaine, Heroin, Marijuana - Past Family History Mother Family Medical History: Hypertension Additional Family Medical History / Comment(s): Lupus Medications and Allergies Home Medications Medication Instructions Recorded Confirmed Type No Known Home Medications 02/13/20 03/30/20 History Allergies Allergy/AdvReac Type Severity Reaction Status Date / Time No Known Allergies Allergy Verified 03/30/20 08:24 Physical Exam Vitals: Vital Signs Temp Pulse Resp BP 04/01/20 06:36 98.3 F 73 16 158/81 General: well nourished, well developed, NAD. Vitals reviewed Eyes: PERRL, EOMI, conjunctiva normal HENT: normocephalic, mucus membranes moist Neck: supple, no JVD Lungs: normal respiratory effort, no wheezes or rales CV: Regular rate and rhythm, no murmur. Peripheral pulses 2+ Abdomen: soft, nondistended, no organomegaly Lymph: no cervical or axillary LAD Skin: warm and dry. Neuro: A&Ox3. Flat affect and depressed mood Results CBC & Chem 7: 03/30/20 03:08 03/31/20 09:56 Assessment and Plan (1) Elevated glucose Current Visit: Yes Status: Acute Code(s): R73.09 - OTHER ABNORMAL GLUCOSE SNOMED Code(s): 37543098 (2) Suicidal ideation Current Visit: Yes Status: Acute Code(s): R45.851 - SUICIDAL IDEATIONS SNOMED Code(s): 7072274 (3) Bipolar 1 disorder, depressed Current Visit: No Status: Acute Priority: Low Code(s): F31.9 - BIPOLAR DISORDER, UNSPECIFIED SNOMED Code(s): 76145685 (4) Hypertension Current Visit: No Status: Acute Code(s): I10 - ESSENTIAL (PRIMARY) HYPERTENSION SNOMED Code(s): 53426289 Plan: 1. Psychosis and suicidal ideation. Management per psychiatry 2. Essential hypertension. Will start lisinopril this admission 3. Elevated glucose. Obtain A1c
[2020-04-02 02:49] LABS: Cholesterol 174 mg/dL (<200); HDL Cholesterol 62 mg/dL (40-60); LDL Cholesterol,Calculated 81 mg/dL (0-99); Triglycerides 156 mg/dL (<150)
[2020-04-02 06:32] VITALS: BP 150/97; PULSE 63; RESP 17; TEMP 98.6
[2020-04-02] MEDS ORDERED: lisinopriL 10 MG TAB PO SCH (09:00)
[2020-04-02] MEDS: lamoTRIgine 25 MG TAB PO SCH (09:05)
[2020-04-02] MEDS: DULoxetine HCL 30 MG CAPSULE.DR PO SCH (09:05)
[2020-04-02] MEDS: NICOTINE 14MG/24HR PATCH TRANSDERM SCH (09:05)
--- NOTE | 2020-04-02 09:05 | P.DS ---
Providers Date of admission: 03/30/20 14:18 Expected date of discharge: 04/02/20 Attending physician: Kash Chavez MD Consults: 03/30/20 14:30 Consult Physician Routine Consulting Provider: Meka Paniagua Consult Reason/Comments: History and Physical Do you want consulting provider notified?: Yes Primary care physician: Meka [facility] Course: The patient was admitted to the psychiatric unit on 03/30 in being discharged on 04/02 basically had no finances and was homeless and couldn't get his medications became depressed and little paranoid. He has a long-term history of mood swings but has not had a manic high for a long period of time he did develop tardive dyskinesia from taking Prolixin recently and had no evidence of psychotic symptoms well in our unit. I chose to treat him with what has worked before low-dose Cymbalta 30 which is less likely to generate a manic or psychotic symptoms serotonin medicines and get him restarted on lamotrigine he will need to keep increasing that he'll he gets back to 200 twice a day so that it will have both antidepressant and some anti-agitation properties. He may have to have an antipsychotic and would have to use closet being but he was resistant to the thought of weekly blood draws and we did not see any psychotic symptoms to justify. Groups: The patient attended faithfully was somewhat decreased ADLs but verbal with peers and staff redirectable and participated well Staff assessment is that the patient is calm compliant oriented alert denying suicidal homicidal or psychotic symptoms Mental status: Somewhat decreased eye contact, minimal self-care is alert cooperative gait and station normal psychomotor activity slightly down but he is not staff tardive dyskinetic movements actually seemed to be somewhat less he denies any suicidal or homicidal thoughts says he has a place to go and will get back in with the community mental health and try to get some counseling as well as medications. He is quite intelligent I believe after he stabilizes with a place to stay and predictable income he needs to figure out some way to use his intellect. Assessment: The patient is doing better he is calm and cooperative and more hopeful. She had gotten to the place he had no medicine and no supports and he now has a plan to get those things in place. I believe that he is doing well enough for discharge prognosis however is somewhat guarded due to his poor motivation to do his part. Health Concerns: Patient is review of systems during his stay was negative he is no acute complaints. He does have a history of GERD high blood pressure musculoskeletal disorder pneumonia in the past and his blood sugars are up He had labs while he was here toxicology was negative urinalysis was okay his sugars were elevated and check twice he will need to follow through with that with his family doctor Vital signs temperature 98.6 heart rate 63 respiration 16 blood pressure is elevated running about 150/97 today Pertinent Studies: None Procedures: None Patient Condition at Discharge: Fair Plan - Discharge Summary Discharge Rx Participant: No New Discharge Prescriptions: New DULoxetine HCL [Cymbalta] 30 mg PO DAILY 30 Days #30 capsule. lamoTRIgine [LaMICtal] 25 mg PO DAILY 30 Days #50 tab lisinopriL [Zestril] 10 mg PO DAILY tab No Action No Known Home Medications Discharge Medication List No Known Home Medications 02/13/20 [History] DULoxetine HCL [Cymbalta] 30 mg PO DAILY 30 Days #30 capsule. 04/02/20 [Rx] lamoTRIgine [LaMICtal] 25 mg PO DAILY 30 Days #50 tab 04/02/20 [Rx] lisinopriL [Zestril] 10 mg PO DAILY tab 04/02/20 [Rx] Follow up Appointment(s)/Referral(s): Meka Paniagua DO [Primary Care Provider] - 1-2 days
== END 2020-04-02 14:05 | disposition home or self-care (01) | DRG 885 ==
LOC: EC 02:28 → 3MHU 14:18
PROVIDERS: ADMIT Psychiatry & Neurology Psychiatry; ATTEND Psychiatry & Neurology Psychiatry
DX: F31.9 Bipolar disorder, unspecified (principal); F14.20 Cocaine dependence, uncomplicated; R45.851 Suicidal ideations; F41.9 Anxiety disorder, unspecified; I10 Essential (primary) hypertension; K21.9 Gastro-esophageal reflux disease without esophagitis; M19.90 Unspecified osteoarthritis, unspecified site; F43.10 Post-traumatic stress disorder, unspecified; F10.10 Alcohol abuse, uncomplicated; F17.210 Nicotine dependence, cigarettes, uncomplicated; M41.9 Scoliosis, unspecified; G24.01 Drug induced subacute dyskinesia; R73.09 Other abnormal glucose; T43.3X5A Adverse effect of phenothiazine antipsychotics and neuroleptics, initial encounter; K58.9 Irritable bowel syndrome, unspecified; Z59.0 Homelessness; Z87.01 Personal history of pneumonia (recurrent); Z87.442 Personal history of urinary calculi; Z98.84 Bariatric surgery status; Z98.890 Other specified postprocedural states; Z82.49 Family history of ischemic heart disease and other diseases of the circulatory system; Z81.1 Family history of alcohol abuse and dependence; Z83.2 Family history of diseases of the blood and blood-forming organs and certain disorders involving the immune mechanism; Z86.2 Personal history of diseases of the blood and blood-forming organs and certain disorders involving the immune mechanism
CPT/HCPCS: 36415; 80053; 80061; 80306; 80320; 80329; 81001; 82075; 83036; 83520; 85025; 99285

== ENCOUNTER 2020-04-19 19:54 | Emergency (ER) | payer MEDICARE ==
[2020-04-19 20:16] VITALS: TEMP 97.8
--- NOTE | 2020-04-19 22:21 | ED ---
Fall HPI - General Chief Complaint: Fall Stated Complaint: ETOH, Fall Time Seen by Provider: 04/19/20 21:06 Source: patient, EMS Mode of arrival: EMS - History of Present Illness Initial Comments: Jonathan 54-year-old alcoholic male who presents to the ER today for evaluation of left eyebrow laceration after fall. Patient reports he's been drinking heavily today, he stumbled and fell hitting the left side of his face. He does not know if he lost consciousness. States that his tetanus was last updated 2 years ago when he had a similar fall resulting a laceration to his nose. the patient denies any pain. - Related Data Home Medications Medication Instructions Recorded Confirmed lamoTRIgine [LaMICtal] See Taper PO DAILY 04/19/20 04/19/20 Previous Rx's Medication Instructions Recorded DULoxetine HCL [Cymbalta] 30 mg PO DAILY 30 Days #30 04/02/20 capsule. lisinopriL [Zestril] 10 mg PO DAILY tab 04/02/20 Allergies Allergy/AdvReac Type Severity Reaction Status Date / Time No Known Allergies Allergy Verified 04/19/20 22:34 Review of Systems ROS Statement: Those systems with pertinent positive or pertinent negative responses have been documented in the HPI. ROS Other: All systems not noted in ROS Statement are negative. Past Medical History Past Medical History: GERD/Reflux, Hypertension, Musculoskeletal Disorder, Pneumonia Additional Past Medical History / Comment(s): GI Bleed, kidney stones, degenerative disc disease in lower back and neck, kyphosis and scoliosis, ETOH abuse. IBS, iron deficient anemia. History of Any Multi-Drug Resistant Organisms: None Reported Past Surgical History: Bariatric Surgery, Orthopedic Surgery Additional Past Surgical History / Comment(s): Right inner Forearm-metal plate Past Anesthesia/Blood Transfusion Reactions: No Reported Reaction Past Psychological History: Anxiety, Bipolar, Depression, PTSD Smoking Status: Current every day smoker Past Alcohol Use History: Abuse, Heavy Past Drug Use History: Cocaine, Heroin, Marijuana - Past Family History Mother Family Medical History: Hypertension Additional Family Medical History / Comment(s): Lupus General Exam - General Exam Comments Initial Comments: Physical Exam GENERAL: Patient is nontoxic and well-hydrated and is in no distress. poor personal hygiene, strong odor of alcohol HENT: swelling and laceration to the lateral side of the left eyebrow, bleeding is controlled EYES: PERRL, EOMI PULMONARY: Unlabored respirations. No audible rales rhonchi or wheezing was noted. CARDIOVASCULAR: There is a regular rate and rhythm without any murmurs gallops or rubs. ABDOMEN: Soft and nontender with normal bowel sounds. SKIN: Skin is clear with no lesions or rashes and otherwise unremarkable. : Deferred NEUROLOGIC: Patient is alert and oriented x3. Moving all extremities spontaneously speech is slurred MUSCULOSKELETAL: Normal extremities with adequate strength and full range of motion. No lower extremity swelling or edema. No calf tenderness. PSYCHIATRIC: Normal psychiatric evaluation. Course Vital Signs 04/19/20 04/19/20 04/19/20 20:12 21:00 23:42 Temperature 97.8 F Pulse Rate 103 H 82 78 Respiratory 18 18 17 Rate Blood Pressure 153/103 122/78 120/62 O2 Sat by Pulse 95 98 98 Oximetry 04/20/20 01:00 Temperature Pulse Rate 77 Respiratory 20 Rate Blood Pressure 144/74 O2 Sat by Pulse 97 Oximetry Procedures - Laceration Laceration #1 Consent Obtained: verbal consent Indication: laceration Site: face Size (cm): 1 Description: linear Depth: simple, single layer Pre-repair: wound explored, deep structures intact Type of Sutures: other (skin glue) Patient Tolerated Procedure: well Medical Decision Making - Medical Decision Making The patient was seen and evaluated history is obtained from patient CT imaging was obtained due to alcohol intoxication and head injury ED scan with no acute findings Patient ate dinner, was drinking fluids, sleeping quietly. Patient be allowed to sleep in the ER overnight until sobriety in the morning. Disposition Clinical Impression: Fall, Alcohol intoxication Disposition: HOME SELF-CARE Condition: Stable Instructions (If sedation given, give patient instructions): Fall Prevention (ED) Is patient prescribed a controlled substance at d/c from ED?: No Referrals: Meka Paniagua DO [Primary Care Provider] - 1-2 days
--- NOTE | 2020-04-19 22:24 | CT ---
EXAMINATION TYPE: CT brain [place] wo con DATE OF EXAM: 04/19/2020 COMPARISON: 04/18/2017 HISTORY: fall CT DLP: 1564.2 mGycm Automated exposure control for dose reduction was used. Cervical vertebra have normal alignment. There is spurring of the endplates anteriorly in the mid cer vical spine. Posterior elements are intact. Facet joints are intact. Skull base is intact. There is n ormal aeration of the mastoid sinuses. Occipital bone is intact. Ventricles have normal size. There is no mass effect nor midline shift. There is no sign of intracran ial hemorrhage. The calvarium is intact. There is no evidence of cerebral edema. There is some ectasia of the proximal right middle cerebral artery that measures 7 mm. IMPRESSION: No acute abnormality of the cervical spine. No fracture. No change. Negative CT scan of the brain for acute injury. 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
[2020-04-20] MEDS ORDERED: TOPICAL SKIN ADHESIVE 1 EACH AMP TOPICAL ONE (00:49)
[2020-04-20 05:19] VITALS: BP 136/85; PULSE 94; RESP 18
== END 2020-04-20 05:27 | disposition home or self-care (01) ==
LOC: EC 19:54
DX: S01.112A Laceration without foreign body of left eyelid and periocular area, initial encounter (principal); F10.129 Alcohol abuse with intoxication, unspecified; F41.9 Anxiety disorder, unspecified; F31.9 Bipolar disorder, unspecified; F17.200 Nicotine dependence, unspecified, uncomplicated; Y90.9 Presence of alcohol in blood, level not specified; W01.198A Fall on same level from slipping, tripping and stumbling with subsequent striking against other object, initial encounter
CPT/HCPCS: 12011; 70450; 72125; 82075; 99283

== ENCOUNTER 2020-04-20 19:44 | Inpatient (IN) | payer MEDICARE ==
--- NOTE | 2020-04-20 20:40 | ED ---
General Adult HPI - General Chief complaint: Psychiatric Symptoms Stated complaint: Mental Health Time Seen by Provider: 04/20/20 19:56 Source: patient, police, RN notes reviewed Mode of arrival: ambulatory Limitations: no limitations - History of Present Illness Initial comments: 54-year-old male with past medical history of alcoholism, polysubstance abuse presents to the emergency room for suicidal thoughts. Patient states he has had suicidal thoughts for the past few weeks. Patient states this was triggered by his homelessness and the fact that he cannot have a relationship with his daughter. Patient has a plan of jumping in front of a train. Patient reports he drank 5 tall boys today.Patient has no other complaints at this time including shortness of breath, chest pain, abdominal pain, nausea or vomiting, headache, or visual changes. - Related Data Home Medications Medication Instructions Recorded Confirmed lamoTRIgine [LaMICtal] See Taper PO DAILY 04/19/20 04/21/20 Previous Rx's Medication Instructions Recorded DULoxetine HCL [Cymbalta] 30 mg PO DAILY 30 Days #30 04/02/20 capsule. lisinopriL [Zestril] 10 mg PO DAILY tab 04/02/20 Allergies Allergy/AdvReac Type Severity Reaction Status Date / Time No Known Allergies Allergy Verified 04/21/20 05:35 Review of Systems ROS Statement: Those systems with pertinent positive or pertinent negative responses have been documented in the HPI. ROS Other: All systems not noted in ROS Statement are negative. Past Medical History Past Medical History: GERD/Reflux, Hypertension, Musculoskeletal Disorder, Pneumonia Additional Past Medical History / Comment(s): GI Bleed, kidney stones, degenerative disc disease in lower back and neck, kyphosis and scoliosis, ETOH abuse. IBS, iron deficient anemia. History of Any Multi-Drug Resistant Organisms: None Reported Past Surgical History: Bariatric Surgery, Orthopedic Surgery Additional Past Surgical History / Comment(s): Right inner Forearm-metal plate Past Anesthesia/Blood Transfusion Reactions: No Reported Reaction Past Psychological History: Anxiety, Bipolar, Depression, PTSD Smoking Status: Current every day smoker Past Alcohol Use History: Abuse, Heavy Past Drug Use History: Cocaine, Heroin, Marijuana - Past Family History Mother Family Medical History: Hypertension Additional Family Medical History / Comment(s): Lupus General Exam Limitations: no limitations General appearance: alert, in no apparent distress Head exam: Present: atraumatic, normocephalic, normal inspection Eye exam: Present: normal appearance, PERRL, EOMI. Absent: scleral icterus, conjunctival injection, periorbital swelling ENT exam: Present: normal exam, mucous membranes moist Neck exam: Present: normal inspection, full ROM. Absent: tenderness, meningis mus, lymphadenopathy Respiratory exam: Present: normal lung sounds bilaterally. Absent: respiratory distress, wheezes, rales, rhonchi, stridor Cardiovascular Exam: Present: regular rate, normal rhythm, normal heart sounds. Absent: bradycardia, tachycardia, irregular rhythm GI/Abdominal exam: Present: soft, normal bowel sounds. Absent: distended, tenderness, guarding, rebound, rigid Neurological exam: Present: alert Course Vital Signs 04/20/20 04/21/20 04/21/20 19:50 05:47 07:11 Temperature 97.6 F 100.2 F H 99.1 F Pulse Rate 98 99 Respiratory 16 18 Rate Blood Pressure 163/99 148/92 O2 Sat by Pulse 96 96 Oximetry Medical Decision Making - Medical Decision Making Care signed out to Dr. Pichardo at 2300 Patient was admitted to the psychiatric floor. - Lab Data Result diagrams: 04/20/20 23:17 04/20/20 23:17 Lab Results 04/20/20 04/20/20 04/20/20 Range/Units 20:23 20:23 23:17 WBC 12.5 H (3.8-10.6) k/uL RBC 4.46 (4.30-5.90) m/uL Hgb 13.3 (13.0-17.5) gm/dL Hct 41.5 (39.0-53.0) % MCV 93.0 (80.0-100.0) fL MCH 29.8 (25.0-35.0) pg MCHC 32.0 (31.0-37.0) g/dL RDW 13.2 (11.5-15.5) % Plt Count 336 (150-450) k/uL Neutrophils % 76 % Lymphocytes % 16 % Monocytes % 5 % Eosinophils % 1 % Basophils % 0 % Neutrophils # 9.5 H (1.3-7.7) k/uL Lymphocytes # 2.0 (1.0-4.8) k/uL Monocytes # 0.7 (0-1.0) k/uL Eosinophils # 0.1 (0-0.7) k/uL Basophils # 0.0 (0-0.2) k/uL Sodium (137-145) mmol/L Potassium (3.5-5.1) mmol/L Chloride (98-107) mmol/L Carbon Dioxide (22-30) mmol/L Anion Gap mmol/L BUN (9-20) mg/dL Creatinine (0.66-1.25) mg/dL Est GFR (CKD-EPI)AfAm (>60 ml/min/1.73 sqM) Est GFR (CKD-EPI)NonAf (>60 ml/min/1.73 sqM) Glucose (74-99) mg/dL Calcium (8.4-10.2) mg/dL Total Bilirubin (0.2-1.3) mg/dL AST (17-59) U/L ALT (4-49) U/L Alkaline Phosphatase (38-126) U/L Total Protein (6.3-8.2) g/dL Albumin (3.5-5.0) g/dL Urine Color Light Yellow Urine Appearance Clear (Clear) Urine pH 5.5 (5.0-8.0) Ur Specific [place] 1.009 (1.001-1.035) Urine Protein 1+ H (Negative) Urine Glucose (UA) Negative (Negative) Urine Ketones Trace H (Negative) Urine Blood Moderate H (Negative) Urine Nitrite Negative (Negative) Urine Bilirubin Negative (Negative) Urine Urobilinogen <2.0 (<2.0) mg/dL Ur Leukocyte Esterase Negative (Negative) Urine RBC <1 (0-5) /hpf Urine WBC 1 (0-5) /hpf Ur Squamous Epith Cells 1 (0-4) /hpf Urine Bacteria Rare H (None) /hpf Hyaline Casts 1 (0-2) /lpf Urine Mucus Rare H (None) /hpf Salicylates mg/dL Urine Opiates Screen Not Detected (NotDetected) Ur Oxycodone Screen Not Detected (NotDetected) Urine Methadone Screen Not Detected (NotDetected) Ur Propoxyphene Screen Not Detected (NotDetected) Acetaminophen ug/mL Ur Barbiturates Screen Not Detected (NotDetected) U Tricyclic Antidepress Not Detected (NotDetected) Ur Phencyclidine Scrn Not Detected (NotDetected) Ur Amphetamines Screen Not Detected (NotDetected) U Methamphetamines Scrn Not Detected (NotDetected) U Benzodiazepines Scrn Not Detected (NotDetected) Urine Cocaine Screen Not Detected (NotDetected) U Marijuana (THC) Screen Not Detected (NotDetected) 04/20/20 Range/Units 23:17 WBC (3.8-10.6) k/uL RBC (4.30-5.90) m/uL Hgb (13.0-17.5) gm/dL Hct (39.0-53.0) % MCV (80.0-100.0) fL MCH (25.0-35.0) pg MCHC (31.0-37.0) g/dL RDW (11.5-15.5) % Plt Count (150-450) k/uL Neutrophils % % Lymphocytes % % Monocytes % % Eosinophils % % Basophils % % Neutrophils # (1.3-7.7) k/uL Lymphocytes # (1.0-4.8) k/uL Monocytes # (0-1.0) k/uL Eosinophils # (0-0.7) k/uL Basophils # (0-0.2) k/uL Sodium 135 L (137-145) mmol/L Potassium 4.1 (3.5-5.1) mmol/L Chloride 98 (98-107) mmol/L Carbon Dioxide 25 (22-30) mmol/L Anion Gap 12 mmol/L BUN 10 (9-20) mg/dL Creatinine 0.47 L (0.66-1.25) mg/dL Est GFR (CKD-EPI)AfAm >90 (>60 ml/min/1.73 sqM) Est GFR (CKD-EPI)NonAf >90 (>60 ml/min/1.73 sqM) Glucose 88 (74-99) mg/dL Calcium 9.1 (8.4-10.2) mg/dL Total Bilirubin 1.0 (0.2-1.3) mg/dL AST 70 H (17-59) U/L ALT 19 (4-49) U/L Alkaline Phosphatase 92 (38-126) U/L Total Protein 6.7 (6.3-8.2) g/dL Albumin 4.1 (3.5-5.0) g/dL Urine Color Urine Appearance (Clear) Urine pH (5.0-8.0) Ur Specific [place] (1.001-1.035) Urine Protein (Negative) Urine Glucose (UA) (Negative) Urine Ketones (Negative) Urine Blood (Negative) Urine Nitrite (Negative) Urine Bilirubin (Negative) Urine Urobilinogen (<2.0) mg/dL Ur Leukocyte Esterase (Negative) Urine RBC (0-5) /hpf Urine WBC (0-5) /hpf Ur Squamous Epith Cells (0-4) /hpf Urine Bacteria (None) /hpf Hyaline Casts (0-2) /lpf Urine Mucus (None) /hpf Salicylates <1.0 mg/dL Urine Opiates Screen (NotDetected) Ur Oxycodone Screen (NotDetected) Urine Methadone Screen (NotDetected) Ur Propoxyphene Screen (NotDetected) Acetaminophen <10.0 ug/mL Ur Barbiturates Screen (NotDetected) U Tricyclic Antidepress (NotDetected) Ur Phencyclidine Scrn (NotDetected) Ur Amphetamines Screen (NotDetected) U Methamphetamines Scrn (NotDetected) U Benzodiazepines Scrn (NotDetected) Urine Cocaine Screen (NotDetected) U Marijuana (THC) Screen (NotDetected) Disposition Clinical Impression: Suicidal ideation Disposition: TRANSFER TO PSYCH HOSP/UNIT Time of Disposition: 18:05
[2020-04-20 20:48] LABS: Amphetamine Screen,Urine Not Detected (NotDetected); Barbiturate Screen,Urine Not Detected (NotDetected); Benzodiazepines Screen,Urine Not Detected (NotDetected); Cocaine Screen,Urine Not Detected (NotDetected); Methadone Screen, Urine Not Detected (NotDetected); Opiate Screen,Urine Not Detected (NotDetected); Oxycodone Screen, Urine Not Detected (NotDetected); Phencyclidine Screen,Urine Not Detected (NotDetected); Tricyclic Antidepressant,Urine Not Detected (NotDetected); Urn Cannabinoid Scrn Not Detected (NotDetected)
[2020-04-20 23:34] LABS: Basophils % (A) 0 %; Eosinophils # (A) 0.1 k/uL (0-0.7); Eosinophils % (A) 1 %; HCT 41.5 % (39.0-53.0); HGB 13.3 gm/dL (13.0-17.5); Lymphocytes % (A) 16 %; MCH 29.8 pg (25.0-35.0); Mean Platelet Volume 6.3; Monocytes # (A) 0.7 k/uL (0-1.0); Monocytes % (A) 5 %; Neutrophils # (A) 9.5 k/uL (1.3-7.7); Neutrophils % (A) 76 %; Platelet Count 336 k/uL (150-450); RBC 4.46 m/uL (4.30-5.90); RDW 13.2 % (11.5-15.5); WBC 12.5 k/uL (3.8-10.6)
[2020-04-20 23:44] LABS: ALT 19 U/L (4-49); AST 70 U/L (17-59); Acetaminophen <10.0 ug/mL; African American GFR (CKD) >90 (>60 ml/min/1.73 sqM); Albumin 4.1 g/dL (3.5-5.0); Alkaline Phosphatase 92 U/L (38-126); Anion Gap 12 mmol/L; Blood Urea Nitrogen 10 mg/dL (9-20); Calcium 9.1 mg/dL (8.4-10.2); Carbon Dioxide 25 mmol/L (22-30); Chloride 98 mmol/L (98-107); Glucose 88 mg/dL (74-99); Non-African American GFR(CKD) >90 (>60 ml/min/1.73 sqM); Potassium 4.1 mmol/L (3.5-5.1); Salicylate <1.0 mg/dL; Sodium 135 mmol/L (137-145); Total Protein 6.7 g/dL (6.3-8.2)
[2020-04-21] MEDS ORDERED: MAGNESIUM HYDROXIDE 2,400 MG/10 ML CUP PO PRN (05:29)
[2020-04-21] MEDS ORDERED: MAG HYDROX/AL HYDROX/SIMETH 30 ML CUP PO PRN (05:29)
[2020-04-21] MEDS ORDERED: LORazepam 2 MG/ML INJ IM PRN (05:35)
[2020-04-21] MEDS ORDERED: IBUPROFEN 600 MG TAB PO STA (05:46)
[2020-04-21 06:02] LABS: Appearance,Urine Clear (Clear); Bacteria,Urine Rare /hpf; Bilirubin,Urine Negative (Negative); Blood,Urine Moderate (Negative); Color,Urine Light Yellow; Glucose,Urine (UA) Negative (Negative); Hyaline Casts,Urine 1 /lpf (0-2); Ketones,Urine Trace (Negative); Leukocyte Esterase,Urine Negative (Negative); Mucus,Urine Rare /hpf; Nitrite,Urine Negative (Negative); PH, Urine 5.5 (5.0-8.0); Protein,Urine 1+ (Negative); RBC,Urine <1 /hpf (0-5); Specific Gravity,Urine 1.009 (1.001-1.035); Squamous Epithelial Cell,Urine 1 /hpf (0-4); Urobilinogen,Urine <2.0 mg/dL (<2.0); WBC,Urine 1 /hpf (0-5)
[2020-04-21] MEDS ORDERED: ZIPRASIDONE 20 MG VIAL IM PRN (09:00)
[2020-04-21 09:31] LABS: Albumin 4.3 g/dL (3.5-5.0); Bilirubin, Delta 0.4 mg/dL (0.0-0.2); Bilirubin,Unconjugated 1.6 mg/dL (0.0-1.1); Total Protein 7.5 g/dL (6.3-8.2)
[2020-04-21] MEDS: lisinopriL 10 MG TAB PO SCH (10:12)
[2020-04-21] MEDS: NICOTINE 14MG/24HR PATCH TRANSDERM SCH (10:12)
[2020-04-21] MEDS: ACETAMINOPHEN TAB 325 MG TAB PO PRN (10:13)
--- NOTE | 2020-04-21 11:21 | P.HP ---
Psychiatric H&P - . H&P Date: 04/21/20 History & Physical: Allergies Allergy/AdvReac Type Severity Reaction Status Date / Time No Known Allergies Allergy Verified 04/21/20 05:35 Vital Signs Temp 99.3 F 04/21/20 08:13 Pulse 101 H 04/21/20 08:13 Resp 16 04/21/20 08:13 BP 144/98 04/21/20 08:13 Pulse Ox 95 04/21/20 08:13 Intake & Output 04/20/20 04/21/20 04/21/20 18:59 06:59 18:59 Weight 72.575 kg 72.57 kg Laboratory Last Values WBC 12.5 k/uL (3.8-10.6) H 04/20/20 23:17 RBC 4.46 m/uL (4.30-5.90) 04/20/20 23:17 Hgb 13.3 gm/dL (13.0-17.5) 04/20/20 23:17 Hct 41.5 % (39.0-53.0) 04/20/20 23:17 MCV 93.0 fL (80.0-100.0) 04/20/20 23:17 MCH 29.8 pg (25.0-35.0) 04/20/20 23:17 MCHC 32.0 g/dL (31.0-37.0) 04/20/20 23:17 RDW 13.2 % (11.5-15.5) 04/20/20 23:17 Plt Count 336 k/uL (150-450) 04/20/20 23:17 Neutrophils % 76 % 04/20/20 23:17 Lymphocytes % 16 % 04/20/20 23:17 Monocytes % 5 % 04/20/20 23:17 Eosinophils % 1 % 04/20/20 23:17 Basophils % 0 % 04/20/20 23:17 Neutrophils # 9.5 k/uL (1.3-7.7) H 04/20/20 23:17 Lymphocytes # 2.0 k/uL (1.0-4.8) 04/20/20 23:17 Monocytes # 0.7 k/uL (0-1.0) 04/20/20 23:17 Eosinophils # 0.1 k/uL (0-0.7) 04/20/20 23:17 Basophils # 0.0 k/uL (0-0.2) 04/20/20 23:17 Sodium 135 mmol/L (137-145) L 04/20/20 23:17 Potassium 4.1 mmol/L (3.5-5.1) 04/20/20 23:17 Chloride 98 mmol/L (98-107) 04/20/20 23:17 Carbon Dioxide 25 mmol/L (22-30) 04/20/20 23:17 Anion Gap 12 mmol/L 04/20/20 23:17 BUN 10 mg/dL (9-20) 04/20/20 23:17 Creatinine 0.47 mg/dL (0.66-1.25) L 04/20/20 23:17 Est GFR (CKD-EPI)AfAm >90 (>60 ml/min/1.73 sqM) 04/20/20 23:17 Est GFR (CKD-EPI)NonAf >90 (>60 ml/min/1.73 sqM) 04/20/20 23:17 Glucose 88 mg/dL (74-99) 04/20/20 23:17 Calcium 9.1 mg/dL (8.4-10.2) 04/20/20 23:17 Total Bilirubin 2.0 mg/dL (0.2-1.3) H 04/21/20 09:03 Conjugated Bilirubin 0.0 mg/dL (0.0-0.3) 04/21/20 09:03 Unconjugated Bilirubin 1.6 mg/dL (0.0-1.1) H 04/21/20 09:03 Delta Bilirubin 0.4 mg/dL (0.0-0.2) H 04/21/20 09:03 AST 92 U/L (17-59) H 04/21/20 09:03 ALT 27 U/L (4-49) 04/21/20 09:03 Alkaline Phosphatase 96 U/L (38-126) 04/21/20 09:03 Total Protein 7.5 g/dL (6.3-8.2) 04/21/20 09:03 Albumin 4.3 g/dL (3.5-5.0) 04/21/20 09:03 Triglycerides 52 mg/dL (<150) 04/21/20 09:03 Cholesterol 187 mg/dL (<200) 04/21/20 09:03 LDL Cholesterol, Calc 83 mg/dL (0-99) 04/21/20 09:03 HDL Cholesterol 94 mg/dL (40-60) H 04/21/20 09:03 TSH 2.090 mIU/L (0.465-4.680) 04/21/20 09:03 Urine Color Light Yellow 04/20/20 20:23 Urine Appearance Clear (Clear) 04/20/20 20: Urine pH 5.5 (5.0-8.0) 04/20/20 20:23 Ur Specific [place] 1.009 (1.001-1.035) 04/20/20 20:23 Urine Protein 1+ (Negative) H 04/20/20 20:23 Urine Glucose (UA) Negative (Negative) 04/20/20 20: Urine Ketones Trace (Negative) H 04/20/20 20:23 Urine Blood Moderate (Negative) H 04/20/20 20:23 Urine Nitrite Negative (Negative) 04/20/20 20:23 Urine Bilirubin Negative (Negative) 04/20/20 20:23 Urine Urobilinogen <2.0 mg/dL (<2.0) 04/20/20 20:23 Ur Leukocyte Esterase Negative (Negative) 04/20/20 20:23 Urine RBC <1 /hpf (0-5) 04/20/20 20:23 Urine WBC 1 /hpf (0-5) 04/20/20 20:23 Ur Squamous Epith Cells 1 /hpf (0-4) 04/20/20 20:23 Urine Bacteria Rare /hpf (None) H 04/20/20 20:23 Hyaline Casts 1 /lpf (0-2) 04/20/20 20:23 Urine Mucus Rare /hpf (None) H 04/20/20 20:23 Salicylates <1.0 mg/dL 04/20/20 23:17 Urine Opiates Screen Not Detected (NotDetected) 04/20/20 20:23 Ur Oxycodone Screen Not Detected (NotDetected) 04/20/20 20:23 Urine Methadone Screen Not Detected (NotDetected) 04/20/20 20:23 Ur Propoxyphene Screen Not Detected (NotDetected) 04/20/20 20:23 Acetaminophen <10.0 ug/mL 04/20/20 23:17 Ur Barbiturates Screen Not Detected (NotDetected) 04/20/20 20:23 U Tricyclic Antidepress Not Detected (NotDetected) 04/20/20 20:23 Ur Phencyclidine Scrn Not Detected (NotDetected) 04/20/20 20:23 Ur Amphetamines Screen Not Detected (NotDetected) 04/20/20 20:23 U Methamphetamines Scrn Not Detected (NotDetected) 04/20/20 20:23 U Benzodiazepines Scrn Not Detected (NotDetected) 04/20/20 20:23 Urine Cocaine Screen Not Detected (NotDetected) 04/20/20 20:23 U Marijuana (THC) Screen Not Detected (NotDetected) 04/20/20 20:23 04/21/20 11:12 IDENTIFYING DATA: Patient is a 54-year-old male who is currently homeless and has 3 kids in a single and currently collects Social Security. Patient has a payee HPI: Patient presented to the hospital yesterday complaining of suicidal ideations for the past several weeks. Patient claimed in the ER that he had a plan to jump into a train oncoming. He stated that the depression was triggered by his chronic homelessness and poor relationship with his daughter. He also claimed in the ER that he drank alcohol before coming into the hospital. His UDS was negative. Patient was admitted to mental health unit for evaluation and treatment. Patient has had several admissions in the past for psychiatric concerns. Patient appeared to have poor hygiene and grooming and was calm and quiet during the interview. He states that he is "fed up with being homeless" and states that he was recently homeless once again after being [facility] to [facility]. He states that his "time was up" and he was asked to not return. He claims that he stayed at [facility] several days and came to have slept outside yesterday and claims that he was feeling cold and came into the hospital. He states that he ran out of money as well and also that his payee was asking him for receipts however he states that he lost his phone. He claims that he also "messed up" and started drinking states that he drank a fifth of whiskey on Sunday. He denied any other drug use. He claims that he has not been taking his medications and didn't pick them up upon discharge earlier this month from the mental health unit. Claims his sleep has been interrupted and his appetite has been poor. He is denying any homicidal ideations. He claims that he does have suicidal thoughts at this time however no plans or intent in the hospital. He denies any auditory or visual hallucinations. He states that he smokes cigarettes approximately 1 pack per day PAST PSYCHIATRIC HISTORY: Patient states that he has a history of bipolar depression. Patient's last psychiatric hospitalization was on 03/30-04/02/2006/11/2020. Patient was on Lamictal and Cymbalta upon discharge however did not take these medications after being discharged. He claims that he has had 3 previous suicide attempts in the past overdosing on medication several years ago. He claims that he has a therapist and psychiatrist at [facility] however has not gone recently. PMH: GERD, hypertension, degenerative joint disease, gastric bypass surgery, IBS ALLERGIES: as per EMR CHEMICAL DEPENDENCY HISTORY: as per HPI FAMILY PSYCHIATRIC/SUBSTANCE USE HISTORY: Claims his father was an alcoholic and his grandmother had some form of mental illness. SOCIAL HISTORY: States that he was born and raised in [place] and moved to [place] thereafter. 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 MENTAL STATUS EXAM: General Appearance: Patient appears to be stated age is alert, attempts to be cooperative. Quiet. Patient has a long house and has poor hygiene and grooming. Behavior: Patient is calmly seated without any agitated behavior. Quiet Speech: Patient's speech is fluent and nonpressured. Mood/Affect: Patient reports their mood is depressed, affect is congruent and constricted. Suicidality/Homicidality: Patient denies having any homicidal ideation intent or plan. He admits having suicidal thoughts however no intent or plan. Perceptions: Patient denies any auditory or visual hallucinations. Though content/process: Poverty of content. Logical. Goal oriented. Memory and concentration: AOX3, grossly intact for the purposes of this session. Can spell "WORLD" backwards Judgment and insight: poor/impulsive. STRENGTHS/WEAKNESSES: strength is that patient is resilient, weaknesses that patient is impulsive with poor insight. INTELLECT: average IMPRESSIONS: Bipolar disorder, current episode depressed Alcohol abuse Plan: -Patient is admitted under involuntary status to MHU for stabilization of psychiatric symptoms and safety. Patient has not signed medication consent and is placed in patient's chart. A second certification was completed and along with petition will be filed for court. -Medications : Will start patient on Lamictal 25 mg twice a day for mood stabilization/depression, we'll also start patient back on Cymbalta 30 mg daily for mood/anxiety. -Ativan and Geodon PRN for agitation/aggression -ciwa protocol with ativan prn for etoh withdrawal. -will order CXR today and covid test as patient is having cough and elevated wbcs plus fever -Patient was counselled on substance abuse and desired to cut back on use, [facility] er patient was fairly superficial about this -Patient was informed of the risks, benefits and side effects of the medication and patient verbally consented to taking the medications. Patient signed med consent form and was placed in chart. -Internal Medicine consult to perform medical evaluation and physical. -NRT - nicotine patch -SW on board for discharge planning. Encourage patient to participate in groups to work on coping skills. 04/21/20 11:13 04/21/20 11:20
--- NOTE | 2020-04-21 11:53 | XR ---
EXAMINATION TYPE: XR chest 2V DATE OF EXAM: 04/21/2020 COMPARISON: Prior chest x-ray 06/11/2019 HISTORY: Cough TECHNIQUE: Frontal and lateral views of the chest are obtained. FINDINGS: There is no focal air space opacity, pleural effusion, or pneumothorax seen. The cardiac silhouette size is within normal limits. There is likely an underlying spinal curvature. The osseou s structures are intact posterior right sixth rib shows deformity consistent with old rib fracture. A john may be ectatic and is dense. IMPRESSION: No acute cardiopulmonary process.
[2020-04-21] MEDS: lamoTRIgine 25 MG TAB PO SCH ×2 (12:26→23:15)
[2020-04-21] MEDS: DULoxetine HCL 30 MG CAPSULE.DR PO SCH (12:26)
[2020-04-21] MEDS ORDERED: guaiFENesin 600 MG TABLET.ER PO PRN (22:00)
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
[2020-04-21] MEDS: AMOXICILLIN 500 MG CAP PO SCH (23:15)
[2020-04-22] MEDS: AMOXICILLIN 500 MG CAP PO SCH ×4 (00:05→21:11)
[2020-04-22] MEDS: LORazepam 1 MG TAB PO PRN (00:11)
[2020-04-22] MEDS: ACETAMINOPHEN TAB 325 MG TAB PO PRN ×2 (00:14→09:44)
[2020-04-22] MEDS: lamoTRIgine 25 MG TAB PO SCH ×2 (09:43→21:11)
[2020-04-22] MEDS: NICOTINE 14MG/24HR PATCH TRANSDERM SCH (09:43)
[2020-04-22] MEDS: DULoxetine HCL 30 MG CAPSULE.DR PO SCH (09:43)
[2020-04-22] MEDS: lisinopriL 10 MG TAB PO SCH (09:43)
--- NOTE | 2020-04-22 09:51 | P.PN ---
Progress Note - Text Progress Note Date: 04/22/20 Interval History: Patient was seen lying in his bed as he is in isolation at this time for covid rule out. Patient was agreeable to speak with junior underwriter today. Patient continues to endorse some fever and difficulty with sleep last night. He states that he continues to feel isolated and depressed. He claims that "sometimes I want to ". He claims that he does not have any intent or plan to harm himself in the hospital. He states that he has mild anxiety today. He claims that he has been taking his medications as prescribed. He continues to be vague about his discharge plan and was asking if team can speak with his payee for more money. He claims that his appetite is fair and has better energy today. At this time patient denies any homical ideations, intent or plan. Patient denies any auditory, visual hallucinations and denies any paranoia or delusions. Patient denies any side effects from the medications and has been compliant with meds. Mental Status Exam: General Appearance: Patient appears to be stated age is alert, attempts to be cooperative. Patient has a long house and has improving hygiene and grooming. Behavior: Patient is calmly seated without any agitated behavior. Quiet tone Speech: Patient's speech is fluent and nonpressured. Mood/Affect: Patient reports their mood is depressed, affect is congruent and constricted. Suicidality/Homicidality: Patient denies having any homicidal ideation intent or plan. He admits having suicidal thoughts however no intent or plan. Perceptions: Patient denies any auditory or visual hallucinations. Though content/process: Poverty of content. Logical. Goal oriented. Vague at times. Memory and concentration: AOX3, grossly intact for the purposes of this session. Judgment and insight: poor/impulsive, improving mildly Assessment Bipolar disorder, current episode depressed Alcohol abuse Plan: -Patient continues to meet criteria for inpatient psychiatric admission for symptom stabilization and safety. Patient has not signed medication consent and was placed in patient's chart. Currently awaiting deferral and court hearing as patient is currently involuntary. -Medications: Continue with Lamictal 25 mg twice a day for mood stabilization/depression. We will increase Cymbalta to 60 mg daily for mood/a nxiety for tomorrow. -When necessary Ativan and Geodon for agitation/aggression. -Appreciate recommendations by internal medicine, acute bacterial sinusitis and started antibiotics. -Chest x-ray completed on 04/21/2020 was negative for any acute changes. -COVID-19 test - pending. Currently in isolation, precautions. -NRT - nicotine patch -SW on board for discharge planning. Encouraged the patient to participate in milieu. Awaiting deferral and full court hearing date. sanitation worker hosing machinery to contact patient's payee for assistance with discharge planning and financial assistance for patient.
[2020-04-23] MEDS: AMOXICILLIN 500 MG CAP PO SCH ×3 (08:45→21:21)
[2020-04-23] MEDS: LORazepam 1 MG TAB PO PRN ×2 (08:45→16:31)
[2020-04-23] MEDS: NICOTINE 14MG/24HR PATCH TRANSDERM SCH (08:45)
[2020-04-23] MEDS: DULoxetine HCL 30 MG CAPSULE.DR PO SCH (08:45)
[2020-04-23] MEDS: lisinopriL 10 MG TAB PO SCH (08:45)
[2020-04-23] MEDS: lamoTRIgine 25 MG TAB PO SCH ×2 (08:45→20:32)
[2020-04-23] MEDS ORDERED: DULoxetine HCL 30 MG CAPSULE.DR PO ONE (11:30)
--- NOTE | 2020-04-23 11:37 | P.PN ---
Progress Note - Text Progress Note Date: 04/23/20 Interval History: Patient was seen lying in bed this morning and was recently released from [facility] rule out precautions and was agreeable to speak with technical publications writer today. Patient states that medically he is doing better and claimed that he is not feeling as short of breath and his cough has been improving. He states that he continues to feel isolated and depressed during the day. He claims that he has been making minimal attempts to go to group however will start to go over the weekend. He continues to state that he feels like he wants to "" however has no active plan or intent in the hospital. He states that he has mild anxiety today. He claims that he has been taking his medications as prescribed. Patient was agreeable to have the medications increased over the weekend and to continue to be monitored. He states that he is eating fairly and has been showering. He claims that his appetite is fair and has better energy today. At this time patient denies any homical ideations, intent or plan. Patient denies any auditory, visual hallucinations and denies any paranoia or delusions. Patient denies any side effects from the medications and has been compliant with meds. Mental Status Exam: General Appearance: Patient appears to be stated age is alert, attempts to be cooperative. Patient has a long house and has improving hygiene and grooming. Behavior: Patient is calmly seated without any agitated behavior. Speech: Patient's speech is fluent and nonpressured. Soft tone. Mood/Affect: Patient reports their mood is depressed, mildly improving, affect is congruent and constricted. Suicidality/Homicidality: Patient denies having any homicidal ideation intent or plan. He admits having suicidal thoughts however no intent or plan. Perceptions: Patient denies any auditory or visual hallucinations. Though content/process: Poverty of content. Logical. Goal oriented. Vague at times. Memory and concentration: AOX3, grossly intact for the purposes of this session. Judgment and insight: poor/impulsive, improving mildly Assessment Bipolar disorder, current episode depressed Alcohol abuse Plan: -Patient continues to meet criteria for inpatient psychiatric admission for symptom stabilization and safety. Patient has not signed medication consent and was placed in patient's chart. Currently awaiting deferral and court hearing as patient is currently involuntary. -Medications: Increased Lamictal 25 mg daily + 50mg HS for mood stabilization/depression. We will increase Cymbalta to 60 mg daily for mood/anxiety -When necessary Ativan and Geodon for agitation/aggression. -Appreciate recommendations by internal medicine, acute bacterial sinusitis and started antibiotics. -Chest x-ray completed on 04/21/2020 was negative for any acute changes. -COVID-19 test -negative. Isolation precautions removed. -NRT - nicotine patch -SW on board for discharge planning. Encouraged the patient to participate in milieu. Awaiting deferral and full court hearing date. structural ironworker to contact patient's payee for assistance with discharge planning and financial assistance for patient. Likely discharge next week.
[2020-04-24] MEDS: NICOTINE 14MG/24HR PATCH TRANSDERM SCH (10:09)
[2020-04-24] MEDS: DULoxetine HCL 60 MG CAPSULE.DR PO SCH (10:11)
[2020-04-24] MEDS: AMOXICILLIN 500 MG CAP PO SCH ×3 (10:11→21:05)
[2020-04-24] MEDS: lamoTRIgine 25 MG TAB PO SCH ×2 (10:11→21:05)
[2020-04-24] MEDS: lisinopriL 10 MG TAB PO SCH (10:11)
[2020-04-24] MEDS: LORazepam 1 MG TAB PO PRN (10:13)
--- NOTE | 2020-04-24 18:43 | PN ---
PROGRESS NOTE DATE OF SERVICE: 04/24/2020. CHIEF COMPLAINT: The patient was depressed and hopeless relating to being homeless. He had suicidal thinking. INTERVAL HISTORY: Patient has been doing fair. He had a quiet day yesterday, comes out in the day area. He will wander about some. He interacts with others. He tends to have a quiet, reserved manner. He has been attending most groups. Mostly, he is described as having "low energy" in groups. He has been cooperative with care. He slept 4 hours last night. Today, he has been up. He continues pretty much the same. He has attended groups today. He will be seen in the day areas, though he does not interact too much with others. He does respond appropriately to staff. He has been cooperative with care. His main focus is on trying to reach his payee to make arrangements to have money available for him to go into some kind of a housing situation. He says he is limited by having lost his cellphone and not having any contact information. He said that he has talked with social workers and apparently on Sunday can make contacts with [employer] to potentially move things forward for him. He states that he did drink significantly leading up to his hospitalization, though that was a more an isolated situation. He tolerates his psychotropic medications. It is noted that he was hospitalized here in March, was discharged on Cymbalta, though did not have money to pickling operator the prescription so he had not been taking it during the interim. MENTAL STATUS EXAM: Patient walked with a very slow manner. He sat without restlessness. Eye contact was fair at best. He spoke in a soft voice. He did not say a lot. He answered questions appropriately with very brief responses. His affect was flat. Mood depressed. He was significantly distressed. There was no indication of thought disorder. He denied current thoughts of harm to self or others. He was oriented and alert. ASSESSMENT: I will continue the current diagnosis and treatment plan. We will continue to make efforts to engage the patient in individual and group therapeutic activities. I will continue psychotropic medications the same. He has just been increased on Cymbalta to 60 mg a day and will continue Lamictal 25 mg in the morning, 50 mg at bedtime. I encouraged him to avoid use of Ativan given the alcohol issues he has had. Apparently he does have the option of getting some housing situation set up on Sunday once he is able to get a hold of his payee. We will focus on stabilization and discharge planning. MMSAMMIL / IJN: [id number] / RUDI
[2020-04-25 06:28] VITALS: RESP 16
[2020-04-25] MEDS: lisinopriL 10 MG TAB PO SCH (08:06)
[2020-04-25] MEDS: DULoxetine HCL 60 MG CAPSULE.DR PO SCH (08:06)
[2020-04-25] MEDS: AMOXICILLIN 500 MG CAP PO SCH ×3 (08:06→21:49)
[2020-04-25] MEDS: lamoTRIgine 25 MG TAB PO SCH ×2 (08:06→21:48)
[2020-04-25] MEDS: NICOTINE 14MG/24HR PATCH TRANSDERM SCH (08:06)
[2020-04-25] MEDS ORDERED: cloNIDine 0.2 MG/24HR PATCH TRANSDERM SCH (18:15)
--- NOTE | 2020-04-26 01:50 | PN ---
PROGRESS NOTE DATE OF SERVICE: 04/25/2020 CHIEF COMPLAINT: The patient was depressed and hopeless relating to being homeless. He had suicidal thinking. INTERVAL HISTORY: Patient has been doing fair. Overall he says not much has changed. He had a quiet day yesterday. He comes out in the day area. He does not interact too much with others. He will wander around the unit some. He has been cooperative with care. He attended groups yesterday. He tends to have a quiet manner in group. He slept fair last night. Today he has been up. He continues to do about the same. He said he does not notice any change one way or another. As far as mood goes, he did not raise any significant issues or concerns today. He has been attending groups. He tolerates his psychotropic medications. CIWA scores have been negligible. It is noted that his blood pressure has been consistently up with his last blood pressure this morning at 0800 of 150/89, pulse 74. On the 3rd at 0400, his blood pressure was 152/95, pulse 72, temperature 97.8, respirations 16. MENTAL STATUS EXAM: Patient gave fair eye contact. Psychomotor activity was slowed. Speech was monotone and soft. He answered questions appropriately with very brief responses. He did not say much. His affect was blunted. His mood was quiet. He did not appear to be significantly distressed. There was no indication of thought disorder. He voiced no thoughts of harm. Cognition was clear. ASSESSMENT: I will continue the current diagnosis and treatment plan. I will continue psychotropic medications the same. I will start the patient on Catapres 0.2. The aim of Catapres is to help manage his blood pressure, though also provide potential benefits for early withdrawal issues related to alcohol withdrawal. I reviewed medication issues briefly with the patient. It is not clear that he was too engaged in conversation. We will focus on stabilization and discharge planning. MMODL / IJN: [id number] /
[2020-04-26 06:43] VITALS: TEMP 98.7
[2020-04-26] MEDS: NICOTINE 14MG/24HR PATCH TRANSDERM SCH (09:15)
[2020-04-26] MEDS: DULoxetine HCL 60 MG CAPSULE.DR PO SCH (09:15)
[2020-04-26] MEDS: AMOXICILLIN 500 MG CAP PO SCH ×3 (09:15→20:48)
[2020-04-26] MEDS: lisinopriL 20 MG TAB PO SCH (09:16)
[2020-04-26] MEDS: lamoTRIgine 25 MG TAB PO SCH ×2 (09:16→20:47)
--- NOTE | 2020-04-26 10:28 | P.PN ---
Progress Note - Text Progress Note Date: 04/26/20 Interval History: Patient was seen taking part in group this morning and was agreeable to speak with typewriter ribbon winder today. Patient continues to claim that he has been improving over the weekend and as of lately his cough has been improving. He states that he is feeling more optimistic about his potential discharge soon. He states that he was able to talk with Julia who has given him a number for the [employer] [facility] that he is willing to go to and will be contacting his payee today to have that arranged. He states that he continues to feel isolated and less depressed today and feeling more optimistic about his future. He also claims that he is reflecting back last year on some of his delusions when he was in [place] however states that now "it was because I wasn't taking my medications" and also claims that he feels that alcohol makes his mood worse. He claims that he has been taking his medications as prescribed. He states that he is eating fairly and has been showering. He claims that his appetite is fair and has better energy today. At this time patient denies any homical ideations, intent or plan. Patient denies any auditory, visual hallucinations and denies any paranoia or delusions. Patient denies any side effects from the medications and has been compliant with meds. Mental Status Exam: General Appearance: Patient appears to be stated age is alert, more cooperative today. Patient has a long house and has improving hygiene and grooming. Behavior: Patient is calmly seated without any agitated behavior. Her cooperative today. Speech: Patient's speech is fluent and nonpressured. Soft tone. Mood/Affect: Patient reports their mood is improving mildly, affect is congruent and constricted. Suicidality/Homicidality: Patient denies having any homicidal ideation intent or plan. He admits having suicidal thoughts however no intent or plan. Perceptions: Patient denies any auditory or visual hallucinations. Though content/process: Patient is displaying more Goal oriented thought process and is more logical today. Memory and concentration: AOX3, grossly intact for the purposes of this session. Judgment and insight: poor/impulsive, improving mildly Assessment Bipolar disorder, current episode depressed Alcohol abuse Plan: -Patient continues to meet criteria for inpatient psychiatric admission for symptom stabilization and safety. Patient has not signed medication consent and was placed in patient's chart. Patient deferred court and is agreeable to treatment. -Medications: Increased Lamictal 50mg bid for mood stabilization/depression. We will continue Cymbalta to 60 mg daily for mood/anxiety -When necessary Ativan and Geodon for agitation/aggression. -Appreciate recommendations by internal medicine, acute bacterial sinusitis and started antibiotics. -Chest x-ray completed on 04/21/2020 was negative for any acute changes. -COVID-19 test -negative. Isolation precautions removed. -NRT - nicotine patch -SW on board for discharge planning. Encouraged the patient to participate in milieu. Patient ended up referring court and agreeable to treatment. antisqueak worker to contact patient's payee for assistance with discharge planning and financial assistance for patient. Likely discharge in 1-2 days, likely to room and board.
[2020-04-27] MEDS: NICOTINE 14MG/24HR PATCH TRANSDERM SCH ×2 (08:51→08:52)
[2020-04-27] MEDS: DULoxetine HCL 60 MG CAPSULE.DR PO SCH (08:52)
[2020-04-27] MEDS: lisinopriL 20 MG TAB PO SCH (08:52)
[2020-04-27 08:53] VITALS: BP 140/83; PULSE 107
[2020-04-27] MEDS ORDERED: lamoTRIgine 25 MG TAB PO SCH (09:00)
--- NOTE | 2020-04-27 11:27 | P.DS ---
Providers Date of admission: 04/21/20 05:19 Expected date of discharge: 04/27/20 Attending physician: Evan Mosqueda MD Consults: 04/21/20 07:28 Consult Physician Routine Consulting Provider: rC Paniagua Consult Reason/Comments: For H & P for Medical Follow Up Do you want consulting provider notified?: Yes, Notify in am Primary care physician: Meka Paniagua - Discharge Diagnosis(es) (1) Bipolar disorder current episode depressed Current Visit: Yes Status: Acute Priority: High (2) Alcohol abuse Current Visit: Yes Status: Acute Priority: Medium (3) Nicotine dependence Current Visit: Yes Status: Acute Priority: Low Hospital Course: Admission HPI: Admission was complete by inspector automatic typewriter "Patient is a 54-year-old male who is currently homeless and has 3 kids in a single and currently collects Social Security. Patient has a payee. Patient presented to the hospital yesterday complaining of suicidal ideations for the past several weeks. Patient claimed in the ER that he had a plan to jump into a train oncoming. He stated that the depression was triggered by his chronic homelessness and poor relationship with his daughter. He also claimed in the ER that he drank alcohol before coming into the hospital. His UDS was negative. Patient was admitted to mental health unit for evaluation and treatment. Patient has had several admissions in the past for psychiatric concerns. Patient appeared to have poor hygiene and grooming and was calm and quiet during the interview. He states that he is "fed up with being homeless" and states that he was recently homeless once again after being asked to leave at the assisted. He states that his "time was up" and he was asked to not return. He claims that he stayed at [place] [address] several days and came to have slept outside yesterday and claims that he was feeling cold and came into the hospital. He states that he ran out of money as well and also that his payee was asking him for receipts however he states that he lost his phone. He claims that he also "messed up" and started drinking states that he drank a fifth of whiskey on Sunday. He denied any other drug use. He claims that he has not been taking his medications and didn't pick them up upon discharge earlier this month from the mental health unit. Claims his sleep has been interrupted and his appetite has been poor. He is denying any homicidal ideations. He claims that he does have suicidal thoughts at this time however no plans or intent in the hospital. He denies any auditory or visual hallucinations. He states that he smokes cigarettes approximately 1 pack per day" Hospital course: Upon admission to the unit patient was initially depressed and suicidal. Patient was however directable and agreeable to commence treatment. Patient was admitted involuntarily and a second certificate was completed and faxed to the courts. Patient ended up signing deferral for court and agreeing to treatment. Patient got along well with other patients on the unit and followed unit protocol. Patient was compliant with the medications and denied any side effects throughout hospital course. Patient was started on Lamictal and titrated up to a dose of 100 mg daily for mood stabilization/depression. Patient was also restarted on Cymbalta and titrate up the dose of 60 mg daily for mood/anxiety.. Patient spoke of his stressors and engaged in therapy both group and individual. Patient was also seen by medical team for history and physical exam. Patient was experiencing upper respiratory symptoms including cough and congestion and was diagnosed with acute bacterial sinusitis and started on amoxicillin and completed the antibiotic course. Patient also had a chest x-ray completed on 04/21/2020 which was negative for any acute changes. Patient had a covid-19 test which was negative. Throughout the course of the hospitalization patient gradually improved with regards to mood, anxiety, sleep and became future oriented with improved insight and judgment. On the day of discharge patient denied any suicidal or homicidal ideations intent or plan denied any auditory or visual hallucinations. Patient endorsed wanting to live for his children and his future. The patient denied any access to guns or weapons. Patient denied any paranoia and did not endorse any delusions. Patient does have a significant history of substance abuse and was counseled on abstaining from all substances including alcohol and marijuana. Patient was offered however declined inpatient substance-abuse rehab. Patient was also counseled on the medications and need for regular compliance and was encouraged to follow-up with their outpatient appointment for mental health and also for primary care. pack worker supervisor spoke with patient's payee to address patient's needs and allow him money for a motel into purchasing a new phone. Mental status exam: General Appearance: Patient appears to be older than stated age is alert, pleasant, and cooperative. Patient is in no acute distress and has improved hygiene and grooming Behavior: Patient is calmly seated without any agitated behavior. Speech: Patient's speech is fluent and nonpressured. Mood/Affect: Patient reports their mood is "better", affect is congruent and constricted Suicidality/Homicidality: Patient denies having any suicidal or homicidal ideation intent or plan. Perceptions: Patient denies any auditory or visual hallucinations. Though content/process: There is no evidence of any delusional thought content and thought process is linear and goal-directed. more future oriented Memory and concentration: AOX3, grossly intact for the purposes of this session. Can spell "WORLD" backwards correctly. Judgment and insight: chronically poor, however has improved with guarded prognosis Impression: Bipolar disorder, currently depressed Alcohol abuse Nicotine dependence Plan: -Continue with discharge today as patient has improved and stabilized psychiatrically and is not currently an imminent threat to himself and/or others. Patient will remain at chronically elevated risk for harm to self and/or others due to his impulsivity and substance abuse. -Continue medications: Continue with Lamictal 100 mg daily for mood stabilization/depression, continue with Cymbalta 60 mg daily for mood/anxiety. -Patient was counseled on the need for medication compliance and appropriate follow-up at mental health and also primary care for medical issues. Patient verbalized understanding and agreed. -pack worker supervisor helped arrange for payee to allow patient for money to allow him a hotel/motel stay into purchasing a new phone. Social work also to arrange for patients follow up appointments with [facility] for psychiatric care along with follow up with primary care provider. Patient will need to follow-up with his primary care provider for his elevated blood pressure. -Patient counseled on abstaining from recreational drugs and marijuana and alcohol. Was informed/educated on the adverse effects on their physical and mental health. Patient verbally agreed and understood. Patient was offered subst ance abuse treatment however declined at this time. -Patient was instructed to return to the hospital or seek immediate medical care if their psychiatric or medical symptoms do worsen or reoccur. Allergies Allergy/AdvReac Type Severity Reaction Status Date / Time No Known Allergies Allergy Verified 04/21/20 05:35 Laboratory Results WBC 12.5 k/uL (3.8-10.6) H 04/20/20 23:17 RBC 4.46 m/uL (4.30-5.90) 04/20/20 23:17 Hgb 13.3 gm/dL (13.0-17.5) 04/20/20 23:17 Hct 41.5 % (39.0-53.0) 04/20/20 23:17 MCV 93.0 fL (80.0-100.0) 04/20/20 23:17 MCH 29.8 pg (25.0-35.0) 04/20/20 23:17 MCHC 32.0 g/dL (31.0-37.0) 04/20/20 23:17 RDW 13.2 % (11.5-15.5) 04/20/20 23:17 Plt Count 336 k/uL (150-450) 04/20/20 23:17 Neutrophils % 76 % 04/20/20 23:17 Lymphocytes % 16 % 04/20/20 23:17 Monocytes % 5 % 04/20/20 23:17 Eosinophils % 1 % 04/20/20 23:17 Basophils % 0 % 04/20/20 23:17 Neutrophils # 9.5 k/uL (1.3-7.7) H 04/20/20 23:17 Lymphocytes # 2.0 k/uL (1.0-4.8) 04/20/20 23:17 Monocytes # 0.7 k/uL (0-1.0) 04/20/20 23:17 Eosinophils # 0.1 k/uL (0-0.7) 04/20/20 23:17 Basophils # 0.0 k/uL (0-0.2) 04/20/20 23:17 Sodium 135 mmol/L (137-145) L 04/20/20 23:17 Potassium 4.1 mmol/L (3.5-5.1) 04/20/20 23:17 Chloride 98 mmol/L (98-107) 04/20/20 23:17 Carbon Dioxide 25 mmol/L (22-30) 04/20/20 23:17 Anion Gap 12 mmol/L 04/20/20 23:17 BUN 10 mg/dL (9-20) 04/20/20 23:17 Creatinine 0.47 mg/dL (0.66-1.25) L 04/20/20 23:17 Est GFR (CKD-EPI)AfAm >90 (>60 ml/min/1.73 sqM) 04/20/20 23:17 Est GFR (CKD-EPI)NonAf >90 (>60 ml/min/1.73 sqM) 04/20/20 23:17 Glucose 88 mg/dL (74-99) 04/20/20 23:17 Calcium 9.1 mg/dL (8.4-10.2) 04/20/20 23:17 Total Bilirubin 2.0 mg/dL (0.2-1.3) H 04/21/20 09:03 Conjugated Bilirubin 0.0 mg/dL (0.0-0.3) 04/21/20 09:03 Unconjugated Bilirubin 1.6 mg/dL (0.0-1.1) H 04/21/20 09:03 Delta Bilirubin 0.4 mg/dL (0.0-0.2) H 04/21/20 09:03 AST 92 U/L (17-59) H 04/21/20 09:03 ALT 27 U/L (4-49) 04/21/20 09:03 Alkaline Phosphatase 96 U/L (38-126) 04/21/20 09:03 Total Protein 7.5 g/dL (6.3-8.2) 04/21/20 09:03 Albumin 4.3 g/dL (3.5-5.0) 04/21/20 09:03 Triglycerides 52 mg/dL (<150) 04/21/20 09:03 Cholesterol 187 mg/dL (<200) 04/21/20 09:03 LDL Cholesterol, Calc 83 mg/dL (0-99) 04/21/20 09:03 HDL Cholesterol 94 mg/dL (40-60) H 04/21/20 09:03 TSH 2.090 mIU/L (0.465-4.680) 04/21/20 09:03 Urine Color Light Yellow 04/20/20 20:23 Urine Appearance Clear (Clear) 04/20/20 20:23 Urine pH 5.5 (5.0-8.0) 04/20/20 20:23 Ur Specific [place] 1.009 (1.001-1.035) 04/20/20 20:23 Urine Protein 1+ (Negative) H 04/20/20 20:23 Urine Glucose (UA) Negative (Negative) 04/20/20 20:23 Urine Ketones Trace (Negative) H 04/20/20 20:23 Urine Blood Moderate (Negative) H 04/20/20 20:23 Urine Nitrite Negative (Negative) 04/20/20 20:23 Urine Bilirubin Negative (Negative) 04/20/20 20:23 Urine Urobilinogen <2.0 mg/dL (<2.0) 04/20/20 20:23 Ur Leukocyte Esterase Negative (Negative) 04/20/20 20:23 Urine RBC <1 /hpf (0-5) 04/20/20 20:23 Urine WBC 1 /hpf (0-5) 04/20/20 20:23 Ur Squamous Epith Cells 1 /hpf (0-4) 04/20/20 20:23 Urine Bacteria Rare /hpf (None) H 04/20/20 20:23 Hyaline Casts 1 /lpf (0-2) 04/20/20 20:23 Urine Mucus Rare /hpf (None) H 04/20/20 20:23 Salicylates <1.0 mg/dL 04/20/20 23:17 Urine Opiates Screen Not Detected (NotDetected) 04/20/20 20:23 Ur Oxycodone Screen Not Detected (NotDetected) 04/20/20 20:23 Urine Methadone Screen Not Detected (NotDetected) 04/20/20 20:23 Ur Propoxyphene Screen Not Detected (NotDetected) 04/20/20 20:23 Acetaminophen <10.0 ug/mL 04/20/20 23:17 Ur Barbiturates Screen Not Detected (NotDetected) 04/20/20 20:23 U Tricyclic Antidepress Not Detected (NotDetected) 04/20/20 20:23 Ur Phencyclidine Scrn Not Detected (NotDetected) 04/20/20 20:23 Ur Amphetamines Screen Not Detected (NotDetected) 04/20/20 20:23 U Methamphetamines Scrn Not Detected (NotDetected) 04/20/20 20:23 U Benzodiazepines Scrn Not Detected (NotDetected) 04/20/20 20:23 Urine Cocaine Screen Not Detected (NotDetected) 04/20/20 20:23 U Marijuana (THC) Screen Not Detected (NotDetected) 04/20/20 20:23 Coronavirus (PCR) Not Detected (Not Detected) 04/21/20 13:56 Vital Signs Temp 98.7 F 04/26/20 06:43 Pulse 107 H 04/27/20 08:53 Resp 16 04/27/20 06:44 BP 140/83 04/27/20 08:53 Pulse Ox 96 04/27/20 06:44 Patient Condition at Discharge: Stable Plan - Discharge Summary Discharge Rx Participant: Yes New Discharge Prescriptions: New DULoxetine HCL [Cymbalta] 60 mg PO DAILY 30 Days capsule. Nicotine 14Mg/24Hr Patch [Habitrol] 1 patch TRANSDERM DAILY 14 Days patch lamoTRIgine [LaMICtal] 100 mg PO DAILY 30 Days tab lisinopriL [Zestril] 20 mg PO DAILY 30 Days tab Discontinued DULoxetine HCL [Cymbalta] 30 mg PO DAILY 30 Days #30 capsule. lisinopriL [Zestril] 10 mg PO DAILY tab lamoTRIgine [LaMICtal] See Taper PO DAILY Discharge Medication List DULoxetine HCL [Cymbalta] 60 mg PO DAILY 30 Days capsule. 04/27/20 [Rx] Nicotine 14Mg/24Hr Patch [Habitrol] 1 patch TRANSDERM DAILY 14 Days patch 04/27/20 [Rx] lamoTRIgine [LaMICtal] 100 mg PO DAILY 30 Days tab 04/27/20 [Rx] lisinopriL [Zestril] 20 mg PO DAILY 30 Days tab 04/27/20 [Rx] Follow up Appointment(s)/Referral(s): Meka Paniagua DO [Primary Care Provider] - 1-2 days Activity/Diet/Wound Care/Special Instructions: Activity and diet as tolerated. Avoid the use of street drugs and alcohol. Take all medications as prescribed. When you are in need of refills on your medicat ions please contact your medical provider and/or outpatient psychiatrist to have this done. Please go to scheduled outpatient appointment for aftercare treatment. If symptoms return or become worse, call the crisis line at and/or go to the nearest emergency room for evaluation. Discharge Disposition: OTHER INSTITUTION NOT DEFINED
== END 2020-04-27 13:52 | disposition home or self-care (01) | DRG 885 ==
LOC: EC 19:44 → 3MHU 04-21 05:19
PROVIDERS: ADMIT Psychiatry & Neurology Psychiatry; ATTEND Psychiatry & Neurology Psychiatry
DX: F31.30 Bipolar disorder, current episode depressed, mild or moderate severity, unspecified (principal); R17 Unspecified jaundice; R45.851 Suicidal ideations; F43.10 Post-traumatic stress disorder, unspecified; I10 Essential (primary) hypertension; J01.90 Acute sinusitis, unspecified; M41.9 Scoliosis, unspecified; Z20.828 Contact with and (suspected) exposure to other viral communicable diseases; Z59.0 Homelessness; Z82.49 Family history of ischemic heart disease and other diseases of the circulatory system; Z81.1 Family history of alcohol abuse and dependence; Z81.8 Family history of other mental and behavioral disorders; F10.10 Alcohol abuse, uncomplicated; F17.210 Nicotine dependence, cigarettes, uncomplicated; Z79.899 Other long term (current) drug therapy; Z87.442 Personal history of urinary calculi; Z91.14 Patient's other noncompliance with medication regimen; Z98.84 Bariatric surgery status; M50.30 Other cervical disc degeneration, unspecified cervical region; K58.9 Irritable bowel syndrome, unspecified; Z87.01 Personal history of pneumonia (recurrent); D50.9 Iron deficiency anemia, unspecified; F14.11 Cocaine abuse, in remission; F11.11 Opioid abuse, in remission; Z63.8 Other specified problems related to primary support group; Z91.5 Personal history of self-harm; K21.9 Gastro-esophageal reflux disease without esophagitis; Z71.41 Alcohol abuse counseling and surveillance of alcoholic
CPT/HCPCS: 12011; 36415; 70450; 71046; 72125; 80053; 80061; 80076; 80306; 80329; 81001; 82075; 83520; 84443; 85025; 99283; 99285

== ENCOUNTER 2020-08-06 16:16 | Emergency (ER) | payer MEDICARE ==
--- NOTE | 2020-08-06 16:30 | ED ---
Psych HPI - General Chief Complaint: Psychiatric Symptoms Stated Complaint: Mental Health Time Seen by Provider: 08/06/20 16:24 Source: patient Mode of arrival: ambulatory - History of Present Illness Initial Comments: 54-year-old male with extensive psychiatric history of presenting for psychiatric evaluation. Patient states someone has been following him and distal accidentally which caused him to feel depressed. Patient states his been ongoing problem for quite some time. Patient states he would like to be admitted. Patient states that he has had suicidal thoughts and would take his tablets. States he's had these thoughts for quite some time but never actually attempted anything. Denies any self-harm. - Related Data Home Medications Medication Instructions Recorded Confirmed Multivitamins, Thera [Multivitamin 1 tab PO DAILY 08/06/20 08/06/20 (formulary)] lamoTRIgine [LaMICtal] 100 mg PO BID 08/06/20 08/06/20 Previous Rx's Medication Instructions Recorded DULoxetine HCL [Cymbalta] 60 mg PO DAILY 30 Days capsule. 04/27/20 lisinopriL [Zestril] 20 mg PO DAILY 30 Days tab 04/27/20 Allergies Allergy/AdvReac Type Severity Reaction Status Date / Time No Known Allergies Allergy Verified 08/06/20 17:07 Review of Systems ROS Statement: Those systems with pertinent positive or pertinent negative responses have been documented in the HPI. ROS Other: All systems not noted in ROS Statement are negative. Past Medical History Past Medical History: GERD/Reflux, Hypertension, Musculoskeletal Disorder, Pneumonia Additional Past Medical History / Comment(s): GI Bleed, kidney stones, degenerative disc disease in lower back and neck, kyphosis and scoliosis, ETOH abuse. IBS, iron deficient anemia. History of Any Multi-Drug Resistant Organisms: None Reported Past Surgical History: Bariatric Surgery, Orthopedic Surgery Additional Past Surgical History / Comment(s): Right inner Forearm-metal plate Past Anesthesia/Blood Transfusion Reactions: No Reported Reaction Past Psychological History: Anxiety, Bipolar, Depression, PTSD Smoking Status: Current every day smoker Past Alcohol Use History: Abuse, Heavy Past Drug Use History: Cocaine, Heroin, Marijuana - Past Family History Mother Family Medical History: Hypertension Additional Family Medical History / Comment(s): Lupus General Exam Limitations: no limitations General appearance: alert, in no apparent distress Head exam: Present: atraumatic, normocephalic, normal inspection Eye exam: Present: normal appearance, PERRL, EOMI Pupils: Present: normal accommodation ENT exam: Present: normal exam, normal oropharynx, mucous membranes moist Neck exam: Present: normal inspection, full ROM. Absent: tenderness Respiratory exam: Present: normal lung sounds bilaterally. Absent: respiratory distress, wheezes, rales Cardiovascular Exam: Present: regular rate, normal rhythm, normal heart sounds Extremities exam: Present: normal inspection, full ROM Back exam: Present: normal inspection, full ROM Neurological exam: Present: alert, oriented X3, normal gait Psychiatric exam: Present: normal affect, normal mood Skin exam: Present: warm, dry, intact, normal color Course Vital Signs 08/06/20 16:18 Temperature 99.4 F Pulse Rate 110 H Respiratory 20 Rate Blood Pressure 158/93 O2 Sat by Pulse 98 Oximetry Medical Decision Making - Medical Decision Making 54-year-old male presenting to emergency Department for psychiatric evaluation. Physical examination is unremarkable. Patient did complain that he had suicidal thoughts with a plan. Patient states he just wants to be admitted to the hospital. EPS evaluated the patient and they will have him follow-up with outpatient psychiatric services. Return parameters thoroughly discussed the patient is understanding and agreeable. Case discussed with physician. - Lab Data Lab Results 08/06/20 08/06/20 Range/Units 16:58 16:58 Urine Opiates Screen Not Detected (NotDetected) Ur Oxycodone Screen Not Detected (NotDetected) Urine Methadone Screen Not Detected (NotDetected) Ur Propoxyphene Screen Not Detected (NotDetected) Ur Barbiturates Screen Not Detected (NotDetected) U Tricyclic Antidepress Not Detected (NotDetected) Ur Phencyclidine Scrn Not Detected (NotDetected) Ur Amphetamines Screen Not Detected (NotDetected) U Methamphetamines Scrn Not Detected (NotDetected) U Benzodiazepines Scrn Not Detected (NotDetected) Urine Cocaine Screen Not Detected (NotDetected) U Marijuana (THC) Screen Not Detected (NotDetected) Coronavirus (PCR) Not Detected (Not Detectd) Disposition Clinical Impression: Adjustment reaction of adult life Disposition: HOME SELF-CARE Condition: Stable Instructions (If sedation given, give patient instructions): Depression (DC) Additional Instructions: Follow-up with outpatient psychiatric services. Return to emergency department if symptoms worsen. Is patient prescribed a controlled substance at d/c from ED?: No Referrals: Meka Paniagua DO [Primary Care Provider] - 1-2 days Time of Disposition: 18:44
[2020-08-06 17:21] LABS: Amphetamine Screen,Urine Not Detected (NotDetected); Barbiturate Screen,Urine Not Detected (NotDetected); Benzodiazepines Screen,Urine Not Detected (NotDetected); Cocaine Screen,Urine Not Detected (NotDetected); Methadone Screen, Urine Not Detected (NotDetected); Opiate Screen,Urine Not Detected (NotDetected); Oxycodone Screen, Urine Not Detected (NotDetected); Phencyclidine Screen,Urine Not Detected (NotDetected); Tricyclic Antidepressant,Urine Not Detected (NotDetected); Urn Cannabinoid Scrn Not Detected (NotDetected)
[2020-08-06 19:14] VITALS: BP 143/92; PULSE 98; RESP 18; TEMP 98.9
== END 2020-08-06 19:14 | disposition home or self-care (01) ==
LOC: EC 16:16
DX: F43.23 Adjustment disorder with mixed anxiety and depressed mood (principal); F41.9 Anxiety disorder, unspecified; F31.9 Bipolar disorder, unspecified; F17.200 Nicotine dependence, unspecified, uncomplicated; Z20.822 Contact with and (suspected) exposure to COVID-19; Z79.899 Other long term (current) drug therapy
CPT/HCPCS: 80306; 82075; 87635; 99285

== ENCOUNTER 2020-08-17 09:04 | Emergency (ER) | payer MEDICARE, OTHER ==
[2020-08-17 09:12] VITALS: RESP 16; TEMP 99.5
[2020-08-17] MEDS ORDERED: LORazepam 2 MG/ML INJ IV STA (09:18)
[2020-08-17] MEDS ORDERED: SODIUM CHLORIDE 0.9% 1,000 ML IV ONE (09:18)
--- NOTE | 2020-08-17 09:24 | ED ---
General Adult HPI - General Chief complaint: Alcohol Stated complaint: ETOH Time Seen by Provider: 08/17/20 09:05 Source: patient, EMS, RN notes reviewed, old records reviewed Mode of arrival: EMS Limitations: no limitations - History of Present Illness Initial comments: This a 54-year-old male presents emergency department stating that he hasn't drank since last evening and he is here because he is starting to get the shakes and he believes that he is withdrawing from alcohol. Patient states he wants to go to rehab center but he has not made any phone calls any attempt ago. Patient states he also got a piece of mail yesterday that had cleared her and it from a person that he is concerned about. Patient states his person is stalking him and after he got the piece of mail he thought maybe the person was outside but his roommate confirmed that he was not and he believes his roommate. Patient states she has hallucinations but he cannot tell me anything that he was hallucinating about either auditory or visually. Patient denies any chest pain difficulty breathing shortness of breath per patient denies any recent fever chills or cough per patient denies abdominal pain patient denies any nausea vomiting per patient denies any diarrhea. Patient denies any recent injury or trauma. Patient states last drink was 11 PM. Patient denied actually having any visual or auditory hallucinations he states he had the sensation that he thought his stalker was outside but did not actually see him or here. - Related Data Home Medications Medication Instructions Recorded Confirmed Multivitamins, Thera [Multivitamin 1 tab PO DAILY 08/06/20 08/17/20 (formulary)] lamoTRIgine [LaMICtal] 100 mg PO BID 08/06/20 08/17/20 Previous Rx's Medication Instructions Recorded DULoxetine HCL [Cymbalta] 60 mg PO DAILY 30 Days capsule. 04/27/20 lisinopriL [Zestril] 20 mg PO DAILY 30 Days tab 04/27/20 Allergies Allergy/AdvReac Type Severity Reaction Status Date / Time No Known Allergies Allergy Verified 08/17/20 09:34 Review of Systems ROS Statement: Those systems with pertinent positive or pertinent negative responses have been documented in the HPI. ROS Other: All systems not noted in ROS Statement are negative. Past Medical History Past Medical History: GERD/Reflux, Hypertension, Musculoskeletal Disorder, Pneumonia Additional Past Medical History / Comment(s): GI Bleed, kidney stones, degen erative disc disease in lower back and neck, kyphosis and scoliosis, ETOH abuse. IBS, iron deficient anemia. History of Any Multi-Drug Resistant Organisms: None Reported Past Surgical History: Bariatric Surgery, Orthopedic Surgery Additional Past Surgical History / Comment(s): Right inner Forearm-metal plate Past Anesthesia/Blood Transfusion Reactions: No Reported Reaction Past Psychological History: Anxiety, Bipolar, Depression, PTSD Smoking Status: Current every day smoker Past Alcohol Use History: Abuse, Daily, Heavy Past Drug Use History: Cocaine, Heroin, Marijuana - Past Family History Mother Family Medical History: Hypertension Additional Family Medical History / Comment(s): Lupus General Exam - General Exam Comments Initial Comments: GENERAL: Patient is well-developed and well-nourished. Patient is nontoxic and well- hydrated and is in mild distress. ENT: Neck is soft and supple. No significant lymphadenopathy is noted. Oropharynx is clear. Moist mucous membranes. Neck has full range of motion without eliciting any pain. EYES: The sclera were anicteric and conjunctiva were pink and moist. Extraocular movements were intact and pupils were equal round and reactive to light. Eyelids were unremarkable. PULMONARY: Unlabored respirations. Good breath sounds bilaterally. No audible rales rhonchi or wheezing was noted. CARDIOVASCULAR: There is a regular rate and rhythm without any murmurs gallops or rubs. ABDOMEN: Soft and nontender with normal bowel sounds. SKIN: Skin is clear with no lesions or rashes and otherwise unremarkable. NEUROLOGIC: Patient is alert and oriented x3. Cranial nerves II through XII are grossly intact. Motor and sensory are also intact. Normal speech, volume and content. Symmetrical smile. MUSCULOSKELETAL: Normal extremities with adequate strength and full range of motion. LYMPHATICS: No significant lymphadenopathy is noted PSYCHIATRIC: Patient is mildly anxious Limitations: no limitations Course Vital Signs 08/17/20 08/17/20 08/17/20 09:05 10:01 10:28 Temperature 99.5 F Pulse Rate 103 H 105 H 99 Respiratory 16 16 16 Rate Blood Pressure 187/113 135/99 140/96 O2 Sat by Pulse 98 100 100 Oximetry Medical Decision Making - Medical Decision Making Patient received Ativan and a liter of fluid on the emergency department. I went back into reevaluate the patient he stated he felt considerably better and would follow-up with outpatient rehabilitation Center. - Lab Data Result diagrams: 08/17/20 09:35 08/17/20 09:35 Lab Results 08/17/20 08/17/20 Range/Units 09:35 09:35 WBC 8.6 (3.8-10.6) k/uL RBC 4.52 (4.30-5.90) m/uL Hgb 13.7 (13.0-17.5) gm/dL Hct 40.6 (39.0-53.0) % MCV 89.8 (80.0-100.0) fL MCH 30.2 (25.0-35.0) pg MCHC 33.6 (31.0-37.0) g/dL RDW 14.6 (11.5-15.5) % Plt Count 274 (150-450) k/uL MPV 6.5 Neutrophils % 73 % Lymphocytes % 16 % Monocytes % 6 % Eosinophils % 1 % Basophils % 1 % Neutrophils # 6.4 (1.3-7.7) k/uL Lymphocytes # 1.4 (1.0-4.8) k/uL Monocytes # 0.5 (0-1.0) k/uL Eosinophils # 0.1 (0-0.7) k/uL Basophils # 0.1 (0-0.2) k/uL Sodium 128 L (137-145) mmol/L Potassium 4.1 (3.5-5.1) mmol/L Chloride 93 L (98-107) mmol/L Carbon Dioxide 23 (22-30) mmol/L Anion Gap 12 mmol/L BUN 13 (9-20) mg/dL Creatinine 0.60 L (0.66-1.25) mg/dL Est GFR (CKD-EPI)AfAm >90 (>60 ml/min/1.73 sqM) Est GFR (CKD-EPI)NonAf >90 (>60 ml/min/1.73 sqM) Glucose 129 H (74-99) mg/dL Calcium 9.3 (8.4-10.2) mg/dL Magnesium 1.4 L (1.6-2.3) mg/dL Total Bilirubin 0.9 (0.2-1.3) mg/dL AST 36 (17-59) U/L ALT 17 (4-49) U/L Alkaline Phosphatase 72 (38-126) U/L Total Protein 7.3 (6.3-8.2) g/dL Albumin 4.2 (3.5-5.0) g/dL Disposition Clinical Impression: Alcohol abuse, Hyponatremia, Alcohol withdrawal syndrome Disposition: HOME SELF-CARE Instructions (If sedation given, give patient instructions): Abuse of Alcohol (ED), Alcohol Withdrawal (ED) Additional Instructions: Patient should follow-up with the rehabilitation Center today. Patient stop drinking. Is patient prescribed a controlled substance at d/c from ED?: No Referrals: Meka Paniagua DO [Primary Care Provider] - 1-2 days Time of Disposition: 10:41
[2020-08-17 09:41] LABS: Basophils # (A) 0.1 k/uL (0-0.2); Basophils % (A) 1 %; Eosinophils # (A) 0.1 k/uL (0-0.7); Eosinophils % (A) 1 %; HCT 40.6 % (39.0-53.0); HGB 13.7 gm/dL (13.0-17.5); Lymphocytes # (A) 1.4 k/uL (1.0-4.8); Lymphocytes % (A) 16 %; MCH 30.2 pg (25.0-35.0); MCHC 33.6 g/dL (31.0-37.0); MCV 89.8 fL (80.0-100.0); Mean Platelet Volume 6.5; Monocytes # (A) 0.5 k/uL (0-1.0); Monocytes % (A) 6 %; Neutrophils # (A) 6.4 k/uL (1.3-7.7); Neutrophils % (A) 73 %; Platelet Count 274 k/uL (150-450); RBC 4.52 m/uL (4.30-5.90); RDW 14.6 % (11.5-15.5); WBC 8.6 k/uL (3.8-10.6)
[2020-08-17 10:02] LABS: ALT 17 U/L (4-49); AST 36 U/L (17-59); African American GFR (CKD) >90 (>60 ml/min/1.73 sqM); Albumin 4.2 g/dL (3.5-5.0); Alkaline Phosphatase 72 U/L (38-126); Anion Gap 12 mmol/L; Blood Urea Nitrogen 13 mg/dL (9-20); Calcium 9.3 mg/dL (8.4-10.2); Carbon Dioxide 23 mmol/L (22-30); Chloride 93 mmol/L (98-107); Glucose 129 mg/dL (74-99); Magnesium 1.4 mg/dL (1.6-2.3); Non-African American GFR(CKD) >90 (>60 ml/min/1.73 sqM); Potassium 4.1 mmol/L (3.5-5.1); Sodium 128 mmol/L (137-145); Total Bilirubin 0.9 mg/dL (0.2-1.3); Total Protein 7.3 g/dL (6.3-8.2)
[2020-08-17 11:06] VITALS: BP 119/67; PULSE 80
== END 2020-08-17 11:00 | disposition home or self-care (01) ==
LOC: EC 09:04
DX: F10.139 Alcohol abuse with withdrawal, unspecified (principal); E87.1 Hypo-osmolality and hyponatremia; I10 Essential (primary) hypertension; F31.9 Bipolar disorder, unspecified; F17.200 Nicotine dependence, unspecified, uncomplicated; Z79.899 Other long term (current) drug therapy; Z98.84 Bariatric surgery status
CPT/HCPCS: 36415; 80053; 83735; 85025; 99285; 96374; 96361 ×2; J2060

== ENCOUNTER 2020-09-06 00:38 | Inpatient (IN) | payer MEDICARE, OTHER ==
[2020-09-06] MEDS ORDERED: LORazepam 2 MG/ML INJ IM STA (00:57)
[2020-09-06] MEDS ORDERED: HYDROcodone/APAP 5-325MG 1 EACH TAB PO STA (00:57)
[2020-09-06] MEDS ORDERED: SODIUM CHLORIDE 0.9% 1,000 ML IV STA ×3 (01:17→04:47)
--- NOTE | 2020-09-06 01:18 | ED ---
Abdominal Pain HPI - General Chief Complaint: Abdominal Pain Stated Complaint: ABD Pain Time Seen by Provider: 09/06/20 00:46 Source: patient, EMS, RN notes reviewed, old records reviewed Mode of arrival: EMS Limitations: no limitations - History of Present Illness Initial Comments: This is a 54-year-old male DF for evaluation patient coming in for severe abdominal pain and bloating unable to eat and drink significant nausea vomiting no bowel movements able to ER today but just feels diffuse pain throughout his belly. Never had similar pain before patient is ectopic. Medical history prior surgeries as well as alcoholism. Patient has had prior abdominal hernias. Denying any cirrhosis from alcoholism. Symptoms remain severely anxious tonight he presents today with anxiety relating the symptoms MD Complaint: abdominal pain -: hour(s) Location: diffuse, periumbilical Radiation: epigastric, suprapubic Severity: moderate Severity scale (1-10): 6 Quality: fullness Consistency: constant Improves With: nothing Worsens With: nothing Associated Symptoms: nausea, vomiting, diarrhea, constipation, anorexia - Related Data Home Medications Medication Instructions Recorded Confirmed Multivitamins, Thera [Multivitamin 1 tab PO DAILY 08/06/20 08/17/20 (formulary)] lamoTRIgine [LaMICtal] 100 mg PO BID 08/06/20 08/17/20 Previous Rx's Medication Instructions Recorded DULoxetine HCL [Cymbalta] 60 mg PO DAILY 30 Days capsule. 04/27/20 lisinopriL [Zestril] 20 mg PO DAILY 30 Days tab 04/27/20 Allergies Allergy/AdvReac Type Severity Reaction Status Date / Time No Known Allergies Allergy Verified 09/06/20 00:46 Review of Systems ROS Statement: Those systems with pertinent positive or pertinent negative responses have been documented in the HPI. ROS Other: All systems not noted in ROS Statement are negative. Past Medical History Past Medical History: GERD/Reflux, Hypertension, Musculoskeletal Disorder, Pneumonia Additional Past Medical History / Comment(s): GI Bleed, kidney stones, degenerative disc disease in lower back and neck, kyphosis and scoliosis, ETOH abuse. IBS, iron deficient anemia. History of Any Multi-Drug Resistant Organisms: None Reported Past Surgical History: Bariatric Surgery, Orthopedic Surgery Additional Past Surgical History / Comment(s): Right inner Forearm-metal plate Past Anesthesia/Blood Transfusion Reactions: No Reported Reaction Past Psychological History: Anxiety, Bipolar, Depression, PTSD Past Alcohol Use History: Abuse, Heavy - Past Family History Mother Family Medical History: Hypertension Additional Family Medical History / Comment(s): Lupus General Exam Limitations: no limitations General appearance: alert, anxious, in distress Head exam: Present: atraumatic, normocephalic, normal inspection Eye exam: Present: normal appearance, PERRL, EOMI. Absent: scleral icterus, conjunctival injection, periorbital swelling ENT exam: Present: normal exam, mucous membranes moist Neck exam: Present: normal inspection. Absent: tenderness, meningismus, lymphadenopathy Respiratory exam: Present: normal lung sounds bilaterally. Absent: respiratory distress, wheezes, rales, rhonchi, stridor Cardiovascular Exam: Present: normal rhythm, tachycardia, normal heart sounds. Absent: systolic murmur, diastolic murmur, rubs, gallop, clicks GI/Abdominal exam: Present: soft, normal bowel sounds. Absent: distended, tenderness, guarding, rebound, rigid Extremities exam: Present: normal inspection, full ROM, normal capillary refill. Absent: tenderness, pedal edema, joint swelling, calf tenderness Back exam: Present: normal inspection Neurological exam: Present: alert, oriented X3, CN II-XII intact Psychiatric exam: Present: normal affect, normal mood Skin exam: Present: warm, dry, intact, normal color. Absent: rash Course Vital Signs 09/06/20 09/06/20 09/06/20 00:40 01:45 02:30 Temperature 98.9 F Pulse Rate 109 H 93 Respiratory 18 18 Rate Blood Pressure 161/116 112/103 O2 Sat by Pulse 98 98 Oximetry 09/06/20 09/06/20 04:00 05:00 Temperature Pulse Rate 83 86 Respiratory 18 18 Rate Blood Pressure 145/110 131/55 O2 Sat by Pulse 97 98 Oximetry - Reevaluation(s) Reevaluation #1: 09/06/20 02:41 Medical record is reviewed Patient has initial x-ray which looks severely abnormal computed tomography scan which continues at picture. Patient is air throughout her abdomen unable to drink here, patient did have a for placed secondary to severe urinary retention which did relieve 2 L of urine. Patient swelling abdominal bloating and pain Reevaluation #2: No real improvement in symptoms and patient here in the ER Medical Decision Making - Medical Decision Making 54 male be admitted for evaluation, continue (replacement as needed, advance diet is appropriate and hydration. - Lab Data Result diagrams: 09/06/20 01:21 09/06/20 01:21 Lab Results 09/06/20 09/06/20 09/06/20 Range/Units 01:21 01:21 02:58 WBC 9.5 (3.8-10.6) k/uL RBC 5.05 (4.30-5.90) m/uL Hgb 14.6 (13.0-17.5) gm/dL Hct 45.0 (39.0-53.0) % MCV 89.0 (80.0-100.0) fL MCH 29.0 (25.0-35.0) pg MCHC 32.5 (31.0-37.0) g/dL RDW 15.0 (11.5-15.5) % Plt Count 449 (150-450) k/uL MPV 6.6 Neutrophils % 75 % Lymphocytes % 14 % Monocytes % 8 % Eosinophils % 1 % Basophils % 1 % Neutrophils # 7.1 (1.3-7.7) k/uL Lymphocytes # 1.3 (1.0-4.8) k/uL Monocytes # 0.7 (0-1.0) k/uL Eosinophils # 0.1 (0-0.7) k/uL Basophils # 0.1 (0-0.2) k/uL Sodium 133 L (137-145) mmol/L Potassium 4.1 (3.5-5.1) mmol/L Chloride 97 L (98-107) mmol/L Carbon Dioxide 27 (22-30) mmol/L Anion Gap 9 mmol/L BUN 7 L (9-20) mg/dL Creatinine 0.53 L (0.66-1.25) mg/dL Est GFR (CKD-EPI)AfAm >90 (>60 ml/min/1.73 sqM) Est GFR (CKD-EPI)NonAf >90 (>60 ml/min/1.73 sqM) Glucose 172 H (74-99) mg/dL Calcium 9.8 (8.4-10.2) mg/dL Total Bilirubin 1.1 (0.2-1.3) mg/dL AST 32 (17-59) U/L ALT 15 (4-49) U/L Alkaline Phosphatase 85 (38-126) U/L Total Protein 8.0 (6.3-8.2) g/dL Albumin 4.5 (3.5-5.0) g/dL Amylase 66 (30-110) U/L Lipase 128 (23-300) U/L Coronavirus (PCR) Not Detected (Not Detectd) - Radiology Data Radiology results: report reviewed (X-ray chest, CT head and pelvis x-ray KUB to show dilated small bowel loops), image reviewed Disposition Clinical Impression: Abdominal pain, Alcohol intoxication, Ileus, Urinary retention Disposition: ADMITTED IP TO THIS HOSP Condition: Fair Is patient prescribed a controlled substance at d/c from ED?: No
[2020-09-06 01:33] LABS: Basophils # (A) 0.1 k/uL (0-0.2); Basophils % (A) 1 %; Eosinophils # (A) 0.1 k/uL (0-0.7); Eosinophils % (A) 1 %; HGB 14.6 gm/dL (13.0-17.5); Lymphocytes # (A) 1.3 k/uL (1.0-4.8); Lymphocytes % (A) 14 %; MCHC 32.5 g/dL (31.0-37.0); Mean Platelet Volume 6.6; Monocytes # (A) 0.7 k/uL (0-1.0); Monocytes % (A) 8 %; Neutrophils # (A) 7.1 k/uL (1.3-7.7); Neutrophils % (A) 75 %; Platelet Count 449 k/uL (150-450); RBC 5.05 m/uL (4.30-5.90); WBC 9.5 k/uL (3.8-10.6)
[2020-09-06 01:38] LABS: ALT 15 U/L (4-49); AST 32 U/L (17-59); African American GFR (CKD) >90 (>60 ml/min/1.73 sqM); Albumin 4.5 g/dL (3.5-5.0); Alkaline Phosphatase 85 U/L (38-126); Amylase 66 U/L (30-110); Anion Gap 9 mmol/L; Blood Urea Nitrogen 7 mg/dL (9-20); Calcium 9.8 mg/dL (8.4-10.2); Carbon Dioxide 27 mmol/L (22-30); Chloride 97 mmol/L (98-107); Glucose 172 mg/dL (74-99); Lipase 128 U/L (23-300); Non-African American GFR(CKD) >90 (>60 ml/min/1.73 sqM); Potassium 4.1 mmol/L (3.5-5.1); Sodium 133 mmol/L (137-145); Total Bilirubin 1.1 mg/dL (0.2-1.3)
[2020-09-06] MEDS ORDERED: diphenhydrAMINE 50 MG/ML 1 ML VIAL IVP STA (01:58)
[2020-09-06] MEDS ORDERED: methylPREDNISolone SOD SUCCI 125 MG/2 ML VIAL IV STA (01:58)
[2020-09-06] MEDS ORDERED: FAMOTIDINE 20 MG/2 ML VIAL IV STA (01:58)
--- NOTE | 2020-09-06 02:01 | XR ---
EXAM: XR Chest, 1 View CLINICAL HISTORY: ITS.REASON XR Reason: pain TECHNIQUE: Frontal view of the chest. COMPARISON: 04/21/2020. FINDINGS: Lungs: No consolidative changes. Pleural space: No pleural effusions. No pneumothorax. Heart: Unremarkable. No cardiomegaly. Mediastinum: Unremarkable. Bones/joints: Osteopenia. Upper abdomen: Elevation left hemidiaphragm. Other findings: Hypoaeration. IMPRESSION: 1. Hypoaeration. 2. Elevation of the left hemidiaphragm. 3. No consolidative change.
--- NOTE | 2020-09-06 02:56 | CT ---
EXAM: CT Abdomen and Pelvis With Intravenous Contrast CLINICAL HISTORY: ITS.REASON CT Reason: pain TECHNIQUE: Axial computed tomography images of the abdomen and pelvis with intravenous contrast. CTDI is 12.1 mGy and DLP is 1423.3 mGy-cm. This CT exam was performed using one or more of the following dose reduction techniques: automated exposure control, adjustment of the mA and/or kV according to patient size, and/or use of iterative reconstruction technique. COMPARISON: No relevant prior studies available. FINDINGS: Lung bases: The left diaphragm is elevated approximately 8 cm with small amounts of left lung base atelectasis adjacent to it. Heart: The heart size is normal. Severe coronary calcification is present. ABDOMEN: Liver: Mild hepatomegaly with the liver measuring 19.4 cm craniocaudad. No focal liver lesion is seen. Gallbladder and bile ducts: There are several gallstones in the dependent portion of the gallbladder without lesion or pericholecystic inflammation. No biliary duct stone is identified. Pancreas: Unremarkable. No mass. No ductal dilation. Spleen: Unremarkable. No splenomegaly. Adrenals: Unremarkable. No mass. Kidneys and ureters: Nonobstructive 1 mm calculus in the lower pole of the right kidney. No hydronephrosis or ureterolithiasis is seen. Delayed images show normal renal contrast excretion bilaterally. Stomach and bowel: There is gaseous distention of a nondilated colon. Small bowel loops are nondilated. No acute inflammatory changes are seen involving the bowel. There is a line of sal along the stomach and proximal small bowel from previous gastric bypass procedure. No mucosal thickening. PELVIS: Appendix: No findings to suggest acute appendicitis. Bladder: The urinary bladder is fully distended with nondilated. If the patient is unable to void, consider urinary retention. Reproductive: Unremarkable as visualized. ABDOMEN and PELVIS: Intraperitoneal space: Unremarkable. No free air. No significant fluid collection. Bones/joints: Moderate degenerative changes throughout the spine. No acute fracture or destructive bone lesion is seen. No dislocation. Soft tissues: Unremarkable. Vasculature: Unremarkable. No abdominal aortic aneurysm. Lymph nodes: Unremarkable. No enlarged lymph nodes. IMPRESSION: 1. There is gaseous distention of a nondilated colon. Small bowel loops are nondilated. No acute inflammatory changes are seen involving the bowel. 2. The urinary bladder is fully distended with nondilated. If the patient is unable to void, consider urinary retention. 3. Multiple age-related degenerative changes described above. No other acute process is identified.
--- NOTE | 2020-09-06 04:30 | XR ---
EXAM: XR Abdomen, 1 View CLINICAL HISTORY: ITS.REASON XR Reason: recheck TECHNIQUE: Frontal supine view of the abdomen/pelvis. COMPARISON: July 04, [address] of the abdomen and pelvis from September 05, 2020 FINDINGS: Lower thorax: There is an elevated left diaphragm, similar to previous. Gastrointestinal tract: There are gas distended and mildly dilated bowel loops throughout the abdomen and pelvis with bowel gas pattern unchanged since previous. Organs: There is a small amount of contrast in a nondilated urinary bladder. Bones/joints: Moderate degenerative changes in the lumbar spine. Soft tissues: There are markers from previous mesh hernia repair. IMPRESSION: There are gas distended and mildly dilated bowel loops throughout the abdomen and pelvis with bowel gas pattern unchanged since previous.
[2020-09-06] MEDS ORDERED: LORazepam 2 MG/ML INJ IV PRN ×2 (04:46)
[2020-09-06] MEDS ORDERED: THIAMINE 100 MG/ML 2 ML VIAL IM STA (04:46)
[2020-09-06] MEDS ORDERED: MORPHINE SULFATE 4 MG/ML SYRINGE IV PRN (04:46)
[2020-09-06] MEDS ORDERED: NALOXONE 0.4 MG/ML 1 ML VIAL IV PRN (04:46)
[2020-09-06 05:25] LABS: Acetaminophen <10.0 ug/mL; Alcohol <10 mg/dL; Salicylate <1.0 mg/dL
[2020-09-06 05:26] LABS: Magnesium 1.7 mg/dL (1.6-2.3)
[2020-09-06] MEDS: DEXTROSE 5%-0.45% NACL 1,000 ML IV SCH ×2 (06:08→16:12)
[2020-09-06] MEDS: LORazepam 2 MG/ML INJ IV PRN ×2 (06:08→17:29)
[2020-09-06] MEDS: DULoxetine HCL 30 MG CAPSULE.DR PO SCH ×2 (09:08→20:18)
[2020-09-06] MEDS: lamoTRIgine 100 MG TAB PO SCH ×2 (09:08→20:18)
[2020-09-06] MEDS: PANTOPRAZOLE 40 MG/10 ML VIAL IV SCH (09:08)
[2020-09-06 12:16] VITALS: RESP 16
[2020-09-06] MEDS: THIAMINE 100 MG TAB PO SCH (17:02)
--- NOTE | 2020-09-06 20:55 | P.HPIM ---
History of Present Illness H&P Date: 09/06/20 Chief Complaint: abdominal pressure, urinary retention Jonathan Parsons is a 54 yo M with PMH of bipolar disorder, alcoholism who presented to the ED complaining of abdominal pain and bloating. He states that over the past few days he lost his appetite and has felt pressure around his bladder. He denies nausea, vomiting, fever or chills. He does complain of difficulty urinating. He has continued to drink throughout this time although states he cut back. On presentation vitals and labs were stable, CXR clear, CT abd/pelvis with no acute findings, possible urinary retention. Pt did require urinary catheterization with approx 900 cc out. Review of Systems All systems: negative Constitutional: Reports malaise, Denies chills, Denies fever Eyes: denies blurred vision, denies pain Ears, nose, mouth and throat: Denies headache, Denies sore throat Cardiovascular: Denies chest pain, Denies shortness of breath Respiratory: Denies cough Gastrointestinal: Reports abdominal pain, Reports loss of appetite, Denies diarrhea, Denies nausea, Denies vomiting Genitourinary: Reports urinary retention Musculoskeletal: Denies myalgias Integumentary: Denies pruritus, Denies rash Neurological: Denies numbness, Denies weakness Psychiatric: Denies anxiety, Denies depression Endocrine: Denies fatigue, Denies weight change Past Medical History Past Medical History: COPD, GERD/Reflux, GI Bleed, Hypertension, Musculoskeletal Disorder, Pneumonia, Renal Disease, Skin Disorder Additional Past Medical History / Comment(s): ETOH abuse with delirium tremors, lower GI bleed, IBS, chronic iron deficiency anemia, hypomagnesemia, hyperbilirubinemia, anorexia, vertigo, nephrolithiasis-passed stone on his own, chronic low back/cervical pain, DDD, kyphosis, scoliosis, coccyx pressure ulcer pt states is mostly healed History of Any Multi-Drug Resistant Organisms: None Reported Past Surgical History: Bariatric Surgery, Hernia Repair, Orthopedic Surgery, Tonsillectomy Additional Past Surgical History / Comment(s): Right inner Forearm-metal plate, gastric bypass, incisional hernia surgery x2, EGDs, colonoscopies. Past Anesthesia/Blood Transfusion Reactions: No Reported Reaction Smoking Status: Current every day smoker - Past Family History Mother Family Medical History: Hypertension Additional Family Medical History / Comment(s): Lupus. Mother is living. Father Family Medical History: Liver Disease Additional Family Medical History / Comment(s): ETOH abuse. of cirrhosis complications. Medications and Allergies Home Medications Medication Instructions Recorded Confirmed Type lisinopriL [Zestril] 20 mg PO DAILY 30 Days tab 04/27/20 09/06/20 Rx lamoTRIgine [LaMICtal] 100 mg PO BID 08/06/20 09/06/20 History DULoxetine HCL [Cymbalta] 30 mg PO BID 09/06/20 09/06/20 History Multivit with Calcium,Iron,Min 1 tab PO DAILY 09/06/20 09/06/20 History [Women's Multivitamin] Allergies Allergy/AdvReac Type Severity Reaction Status Date / Time No Known Allergies Allergy Verified 09/06/20 07:16 Physical Exam Vitals: Vital Signs Temp Pulse Pulse Resp BP BP Pulse Ox 09/06/20 12:15 98.3 F 85 16 151/93 97 09/06/20 05:00 86 18 131/55 98 09/06/20 04:00 83 18 145/110 97 09/06/20 02:30 98.9 F 09/06/20 01:45 93 18 112/103 98 09/06/20 00:40 109 H 18 161/116 98 Intake and Output 09/06/20 09/06/20 09/06/20 06:59 14:59 22:59 Intake Total 1200 Balance 1200 Intake: Intake, IV Titration 1200 Amount Dextrose 5%-0.45% NaCl 1, 1200 000 ml @ 100 mls/hr IV . Q10H [facility] Rx#:[id number] Other: Weight 77.111 kg 77.111 kg General: well nourished, well developed, NAD. Vitals reviewed Eyes: PERRL, EOMI, conjunctiva normal HENT: normocephalic, mucus membranes moist Neck: supple, no JVD Lungs: normal respiratory effort, no wheezes or rales CV: Regular rate and rhythm, no murmur. Peripheral pulses 2+ Abdomen: soft, nondistended, no organomegaly Lymph: no cervical or axillary LAD Skin: warm and dry. Neuro: A&Ox3, normal mood and affect Results CBC & Chem 7: 09/06/20 01:21 09/06/20 01:21 Labs: Abnormal Lab Results - Last 24 Hours (Table) 09/06/20 Range/Units 01:21 Sodium 133 L (137-145) mmol/L Chloride 97 L (98-107) mmol/L BUN 7 L (9-20) mg/dL Creatinine 0.53 L (0.66-1.25) mg/dL Glucose 172 H (74-99) mg/dL Thrombosis Risk Factor Assmnt - Choose All That Apply Any of the Below Risk Factors Present?: Yes Each Factor Represents 1 point: Age 41-60 years Other Risk Factors: No Other congenital or acquired thrombophilia - If yes, enter type in comment: No Thrombosis Risk Factor Assessment Total Risk Factor Score: 1 Thrombosis Risk Factor Assessment Level: Low Risk Assessment and Plan (1) Alcohol intoxication Current Visit: Yes Status: Acute Code(s): F10.929 - ALCOHOL USE, UNSPECIFIED WITH INTOXICATION, UNSPECIFIED SNOMED Code(s): 81168448 (2) Abdominal pain Current Visit: Yes Status: Acute Code(s): R10.9 - UNSPECIFIED ABDOMINAL PAIN SNOMED Code(s): 87092162 (3) Urinary retention Current Visit: Yes Status: Acute Code(s): R33.9 - RETENTION OF URINE, UNSPECIFIED SNOMED Code(s): 981848884 Plan: 1. Alcohol withdrawal. Admit, [place] protocol 2. Urinary retention. Check PSA, urology consult for further evaluation 3. Bipolar disorder. Continue lamictal
[2020-09-07 05:15] VITALS: BP 149/91; PULSE 70; TEMP 98
[2020-09-07] MEDS ORDERED: Magnesium Replacement Protocol 1 EACH MISC MISCELLANE PRN (08:52)
[2020-09-07] MEDS: DEXTROSE 5%-0.45% NACL 1,000 ML IV SCH ×2 (09:16→12:13)
[2020-09-07] MEDS: THIAMINE 100 MG TAB PO SCH (09:17)
[2020-09-07] MEDS: DULoxetine HCL 30 MG CAPSULE.DR PO SCH (09:17)
[2020-09-07] MEDS: PANTOPRAZOLE 40 MG/10 ML VIAL IV SCH (09:17)
[2020-09-07] MEDS: lamoTRIgine 100 MG TAB PO SCH (09:17)
--- NOTE | 2020-09-07 09:59 | P.DS ---
Providers Date of admission: 09/06/20 04:46 Expected date of discharge: 09/07/20 Attending physician: Cr Paniagua MD Consults: 09/06/20 09:27 Consult Physician Routine Consulting Provider: Brian Block Consult Reason/Comments: urine retention Do you want consulting provider notified?: Yes Primary care physician: Meka Paniagua [facility] Course: Final Diagnoses: Alcohol intoxication with withdrawal. Significant clinical improvement on CIWA protocol. Urinary retention, urology following. PSA level pending and to be discussed at follow-up visit with PCP Bipolar disorder. Hospital course:Jonathan Parsons is a 54 yo M with PMH of bipolar disorder, alcoholism who presented to the ED complaining of abdominal pain and bloating. He states that over the past few days he lost his appetite and has felt pressure around his bladder. He denies nausea, vomiting, fever or chills. He does complain of difficulty urinating. He has continued to drink throughout this time although states he cut back. On presentation vitals and labs were stable, CXR clear, CT abd/pelvis with no acute findings, possible urinary retention. Pt did require urinary catheterization with approx 900 cc out. Significant clinical improvement. No shakiness, no diaphoresis. Denies chest pain, palpitations or shortness of breath. Denies bladder pressure, no abdominal pain. PSA magnesium level pending. Patient will be discharged home today in a stable condition with guarded prognosis pending urology final DC recommendations and clearance. The impression and plan of care has been dictated as directed. : I performed a history and examination of this patient, discussed the same with the dictator. I agree with the dictator's note ,documented as a scribe. Any additional findings or plans will be noted. Patient Condition at Discharge: Stable Plan - Discharge Summary Discharge Rx Participant: No New Discharge Prescriptions: No Action lisinopriL [Zestril] 20 mg PO DAILY 30 Days tab lamoTRIgine [LaMICtal] 100 mg PO BID Multivit with Calcium,Iron,Min [Women's Multivitamin] 1 tab PO DAILY DULoxetine HCL [Cymbalta] 30 mg PO BID Discharge Medication List lisinopriL [Zestril] 20 mg PO DAILY 30 Days tab 04/27/20 [Rx] lamoTRIgine [LaMICtal] 100 mg PO BID 08/06/20 [History] DULoxetine HCL [Cymbalta] 30 mg PO BID 09/06/20 [History] Multivit with Calcium,Iron,Min [Women's Multivitamin] 1 tab PO DAILY 09/06/20 [History] Follow up Appointment(s)/Referral(s): Cr Paniagua MD [STAFF PHYSICIAN] - 3 Days Brian Block MD [STAFF PHYSICIAN] - 1 Week Activity/Diet/Wound Care/Special Instructions: Pt would like a pneumonia and influenza vaccine prior to discharge. Confirm Valdes catheter recommendations as per urology;patient states urology told him to leave it in 1 week.
[2020-09-07 11:06] VITALS: BMI 25.8
[2020-09-07 11:48] LABS: Basophils # (A) 0.04 X 10*3/uL (0.00-0.10); Basophils % (A) 0.4 %; Eosinophils # (A) 0.03 X 10*3/uL (0.04-0.35); Eosinophils % (A) 0.3 %; HCT 36.8 % (39.6-50.0); HGB 11.6 g/dL (13.0-17.0); Lymphocytes # (A) 1.81 X 10*3/uL (0.90-5.00); Lymphocytes % (A) 20.4 %; MCH 29.1 pg (27.0-32.0); MCHC 31.5 g/dL (32.0-37.0); MCV 92.5 fL (80.0-97.0); Mean Platelet Volume 9.3 fL (9.5-12.2); Monocytes # (A) 0.73 X 10*3/uL (0.20-1.00); Monocytes % (A) 8.2 %; Neutrophils # (A) 6.25 X 10*3/uL (1.80-7.70); Neutrophils % (A) 70.4 %; Platelet Count 328 X 10*3/uL (140-440); RBC 3.98 X 10*6/uL (4.40-5.60); RDW 15.2 % (11.5-14.5); WBC 8.89 X 10*3/uL (4.50-10.00)
[2020-09-07 12:06] LABS: African American GFR (CKD) 132.1 (60.0-200.0); Albumin 3.9 g/dL (3.80-4.90); Albumin/Globulin Ratio 2.17 (1.60-3.17); Anion Gap 7.2 mmol/L (4.00-12.00); BUN/Creat Ratio 16.67 Ratio (12.00-20.00); Calcium 8.5 mg/dL (8.7-10.3); Carbon Dioxide 25.8 mmol/L (21.6-31.8); Globulin 1.8 g/dL (1.6-3.3); Magnesium 1.8 mg/dL (1.5-2.4); Phosphorus 3.4 mg/dL (2.4-5.1); Potassium 3.9 mmol/L (3.5-5.5); Total Bilirubin 0.9 mg/dL (0.2-1.2); Total Protein 5.7 g/dL (6.2-8.2)
--- NOTE | 2020-09-07 17:25 | P.GSCN ---
History of Present Illness Consult date: 09/07/20 Reason for Consult: Urinary retention History of present illness: Jonathan Parsons is a 54 yo male that presents to the hospital with abdominal pain and distention, He underwent a CT abd/pelvis which was only significant for urinary retention. Guillermo was placed with return of 900 mL. He indicated he has difficulty voiding at baseline. For the past 3-4 months have been having weak stream, straining with urination. Denies any dysuria or gross hematuria. No family hx of prostate cancer, no previous hx of urinary retention Review of Systems - Constitutional Denies fever, Denies weight loss - EENT Ears, nose, mouth and throat: Denies dysphagia - Cardiovascular Denies chest pain, Denies shortness of breath - Respiratory Denies cough, Denies 7 - Genitourinary Reports urinary retention, Denies dysuria, Denies flank pain - Integumentary Denies rash, Denies unusual bruising - Neurological Denies headaches, Denies syncope Past Medical History Past Medical History: COPD, GERD/Reflux, GI Bleed, Hypertension, Musculoskeletal Disorder, Pneumonia, Renal Disease, Skin Disorder Additional Past Medical History / Comment(s): ETOH abuse with delirium tremors, lower GI bleed, IBS, chronic iron deficiency anemia, hypomagnesemia, hyperbilirubinemia, anorexia, vertigo, nephrolithiasis-passed stone on his own, chronic low back/cervical pain, DDD, kyphosis, scoliosis, coccyx pressure ulcer pt states is mostly healed History of Any Multi-Drug Resistant Organisms: None Reported Past Surgical History: Bariatric Surgery, Hernia Repair, Orthopedic Surgery, Tonsillectomy Additional Past Surgical History / Comment(s): Right inner Forearm-metal plate, gastric bypass, incisional hernia surgery x2, EGDs, colonoscopies. Past Anesthesia/Blood Transfusion Reactions: No Reported Reaction Smoking Status: Current every day smoker - Past Family History Mother Family Medical History: Hypertension Additional Family Medical History / Comment(s): Lupus. Mother is living. Father Family Medical History: Liver Disease Additional Family Medical History / Comment(s): ETOH abuse. of cirrhosis complications. Medications and Allergies Home Medications Medication Instructions Recorded Confirmed Type lisinopriL [Zestril] 20 mg PO DAILY 30 Days tab 04/27/20 09/06/20 Rx lamoTRIgine [LaMICtal] 100 mg PO BID 08/06/20 09/06/20 History DULoxetine HCL [Cymbalta] 30 mg PO BID 09/06/20 09/06/20 History Multivit with Calcium,Iron,Min 1 tab PO DAILY 09/06/20 09/06/20 History [Women's Multivitamin] Allergies Allergy/AdvReac Type Severity Reaction Status Date / Time No Known Allergies Allergy Verified 09/06/20 07:16 Surgical - Exam Vital Signs Pulse Resp BP Pulse Ox 109 H 18 161/116 98 09/06/20 00:40 09/06/20 00:40 09/06/20 00:40 09/06/20 00:40 - General well developed, well nourished, no distress, no pain - Eyes PERRL, normal ocular movement - ENT normal nares, normal mucosa, no hearing loss - Respiratory normal expansion, normal respiratory effort - Abdomen Abdomen: soft, non tender - Genitourinary guillermo in placed draining clear yellow urine - Psychiatric oriented to time, oriented to person, oriented to place Results - Labs 09/07/20 06:16 09/07/20 06:16 Abnormal Lab Results - Last 24 Hours (Table) 09/07/20 09/07/20 Range/Units 06:16 06:16 RBC 3.98 L (4.40-5.60) X 10*6/uL Hgb 11.6 L (13.0-17.0) g/dL Hct 36.8 L (39.6-50.0) % MCHC 31.5 L (32.0-37.0) g/dL RDW 15.2 H (11.5-14.5) % MPV 9.3 L (9.5-12.2) fL Eosinophils # 0.03 L (0.04-0.35) X 10*3/uL Calcium 8.5 L (8.7-10.3) mg/dL Total Protein 5.7 L (6.2-8.2) g/dL Diabetes panel 09/07/20 Range/Units 06:16 Sodium 137 (135-145) mmol/L Potassium 3.9 (3.5-5.5) mmol/L Chloride 104 (96-109) mmol/L Carbon Dioxide 25.8 (21.6-31.8) mmol/L BUN 10.0 (9.0-27.0) mg/dL Creatinine 0.6 (0.6-1.5) mg/dL Glucose 94 (70-110) mg/dL Calcium 8.5 L (8.7-10.3) mg/dL AST 20 (14-35) U/L ALT 11 (10-49) U/L Alkaline Phosphatase 61 (41-126) U/L Total Protein 5.7 L (6.2-8.2) g/dL Albumin 3.90 (3.80-4.90) g/dL Calcium panel 09/07/20 Range/Units 06:16 Calcium 8.5 L (8.7-10.3) mg/dL Phosphorus 3.4 (2.4-5.1) mg/dL Albumin 3.90 (3.80-4.90) g/dL Pituitary panel 09/07/20 Range/Units 06:16 Sodium 137 (135-145) mmol/L Potassium 3.9 (3.5-5.5) mmol/L Chloride 104 (96-109) mmol/L Carbon Dioxide 25.8 (21.6-31.8) mmol/L BUN 10.0 (9.0-27.0) mg/dL Creatinine 0.6 (0.6-1.5) mg/dL Glucose 94 (70-110) mg/dL Calcium 8.5 L (8.7-10.3) mg/dL Adrenal panel 09/07/20 Range/Units 06:16 Sodium 137 (135-145) mmol/L Potassium 3.9 (3.5-5.5) mmol/L Chloride 104 (96-109) mmol/L Carbon Dioxide 25.8 (21.6-31.8) mmol/L BUN 10.0 (9.0-27.0) mg/dL Creatinine 0.6 (0.6-1.5) mg/dL Glucose 94 (70-110) mg/dL Calcium 8.5 L (8.7-10.3) mg/dL Total Bilirubin 0.9 (0.2-1.2) mg/dL AST 20 (14-35) U/L ALT 11 (10-49) U/L Alkaline Phosphatase 61 (41-126) U/L Total Protein 5.7 L (6.2-8.2) g/dL Albumin 3.90 (3.80-4.90) g/dL Assessment and Plan Assessment: 54 yo male admitted to the hospital with urinary retention, guillermo placed with return of 800 mL. Has voiding dysfunction at baseline -Start flomax, can be discharged home on flomax -F/U in one week for TOV
== END 2020-09-07 13:54 | disposition home or self-care (01) | DRG 897 ==
LOC: EC 00:38 → 5NMEDONC 04:46
PROVIDERS: ADMIT Family Medicine; ATTEND Family Medicine
DX: F10.239 Alcohol dependence with withdrawal, unspecified (principal); F17.200 Nicotine dependence, unspecified, uncomplicated; F31.9 Bipolar disorder, unspecified; F43.10 Post-traumatic stress disorder, unspecified; I10 Essential (primary) hypertension; J44.9 Chronic obstructive pulmonary disease, unspecified; Y90.0 Blood alcohol level of less than 20 mg/100 ml; M41.9 Scoliosis, unspecified; Z20.822 Contact with and (suspected) exposure to COVID-19; R33.9 Retention of urine, unspecified; Z98.84 Bariatric surgery status; Z87.442 Personal history of urinary calculi; Z79.899 Other long term (current) drug therapy; Z82.49 Family history of ischemic heart disease and other diseases of the circulatory system
CPT/HCPCS: 36415; 51702; 51798; 71045; 74018; 74177; 80053; 80143; 80179; 80320; 82009; 82150; 83690; 83735; 84100; 84153; 85025; 87635; 96361; 96372; 96374; 96375; 99285

== ENCOUNTER 2020-12-25 18:29 | Inpatient (IN) | payer MEDICARE, OTHER ==
[~2020-12-25 18:29] MED LIST: TICAGRELOR 90 MG TAB PO ONE
[2020-12-25 19:11] LABS: Basophils % (A) 0 %; Eosinophils # (A) 0.2 k/uL (0-0.7); Eosinophils % (A) 1 %; HCT 41.3 % (39.0-53.0); HGB 14.1 gm/dL (13.0-17.5); Lymphocytes # (A) 1.2 k/uL (1.0-4.8); Lymphocytes % (A) 9 %; MCH 30.4 pg (25.0-35.0); MCHC 34.1 g/dL (31.0-37.0); MCV 89.2 fL (80.0-100.0); Mean Platelet Volume 6.9; Monocytes # (A) 0.8 k/uL (0-1.0); Monocytes % (A) 6 %; Neutrophils # (A) 10.4 k/uL (1.3-7.7); Neutrophils % (A) 81 %; Platelet Count 301 k/uL (150-450); RBC 4.64 m/uL (4.30-5.90); RDW 14.4 % (11.5-15.5); WBC 12.8 k/uL (3.8-10.6)
[2020-12-25 19:20] LABS: Partial Thromboplastin Time 24.5 sec (22.0-30.0); Prothrombin Time 10.7 sec (9.0-12.0)
[2020-12-25 19:34] LABS: ALT 24 U/L (4-49); AST 178 U/L (17-59); African American GFR (CKD) >90 (>60 ml/min/1.73 sqM); Albumin 4.3 g/dL (3.5-5.0); Alkaline Phosphatase 101 U/L (38-126); Anion Gap 8 mmol/L; Blood Urea Nitrogen 6 mg/dL (9-20); Calcium 9.1 mg/dL (8.4-10.2); Carbon Dioxide 23 mmol/L (22-30); Chloride 92 mmol/L (98-107); Glucose 125 mg/dL (74-99); Non-African American GFR(CKD) >90 (>60 ml/min/1.73 sqM); Potassium 3.9 mmol/L (3.5-5.1); Sodium 123 mmol/L (137-145); Total Bilirubin 1.4 mg/dL (0.2-1.3); Total Protein 7.1 g/dL (6.3-8.2)
[2020-12-25] MEDS ORDERED: SODIUM CHLORIDE 0.9% 1,000 ML IV STA (20:14)
[2020-12-25] MEDS ORDERED: ASPIRIN 81 MG PO STA (20:14)
[2020-12-25] MEDS ORDERED: MORPHINE SULFATE 4 MG/ML SYRINGE IVP STA (20:21)
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
--- NOTE | 2020-12-25 21:56 | XR ---
EXAMINATION TYPE: XR chest 2V DATE OF EXAM: 12/25/2020 COMPARISON: 09/06/2020 HISTORY: Chest pain TECHNIQUE: 2 views FINDINGS: There is elevated left diaphragm with atelectasis left lung base. Right lung is clear. Hear t size is normal. There are chest leads. IMPRESSION: Left basilar atelectasis unchanged compared to old exam.
--- NOTE | 2020-12-25 22:01 | CT ---
EXAMINATION TYPE: CT brain wo con DATE OF EXAM: 12/25/2020 COMPARISON: 04/19/2020 HISTORY: Weakness, nausea, vomiting and headache CT DLP: 1247.4 mGycm Automated exposure control for dose reduction was used. Ventricles have normal size. There is no mass effect nor midline shift. There is no sign of intracran ial hemorrhage. Calvarium is intact. Skull base is intact. IMPRESSION: Negative unenhanced head CT scan.
[2020-12-25] MEDS ORDERED: fentaNYL (PF) 50 MCG/ML 2 ML AMP ONE (22:09)
[2020-12-25] MEDS ORDERED: LIDOCAINE 1% INJ 10MG/ML (20 ML MDV) ONE (22:09)
[2020-12-25] MEDS ORDERED: VERAPAMIL 2.5 MG/ML 2 ML AMP ONE (22:09)
[2020-12-25] MEDS ORDERED: HEPARIN SODIUM 1,000 UN/ML (10ML VL) ONE (22:09)
[2020-12-25 22:13] LABS: INR 1.1 (<1.2); Partial Thromboplastin Time 25.1 sec (22.0-30.0); Prothrombin Time 11.5 sec (9.0-12.0)
[2020-12-25] MEDS ORDERED: fentaNYL (PF) 50 MCG/ML 2 ML AMP IVP ONE (22:21)
[2020-12-25] MEDS ORDERED: IV FLUID CONTINUATION 1,000 ML IV ONE (22:25)
[2020-12-25] MEDS ORDERED: LIDOCAINE 1% INJ 10MG/ML (20 ML MDV) SQ ONE (22:26)
[2020-12-25] MEDS ORDERED: NALOXONE 0.4 MG/ML 1 ML VIAL IV PRN (22:28)
[2020-12-25] MEDS ORDERED: VERAPAMIL SYRINGE (5 MG/10 ML) INTRAARTER ONE (22:31)
[2020-12-25] MEDS ORDERED: HEPARIN SODIUM 1,000 UN/ML (10ML VL) IV ONE ×2 (22:44→22:46)
[2020-12-25] MEDS ORDERED: TICAGRELOR 90 MG TAB ONE (22:46)
[2020-12-25] MEDS ORDERED: TICAGRELOR 90 MG TAB PO ONE (22:47)
[2020-12-25] MEDS ORDERED: IOPAMIDOL-370 125ML BTL INJ ONE ×2 (22:50→23:28)
[2020-12-25] MEDS ORDERED: MIDAZOLAM 2 MG/2 ML VIAL IVP ONE (23:23)
[2020-12-25] MEDS ORDERED: IOPAMIDOL-370 100ML BTL INJ ONE (23:36)
[2020-12-25] MEDS ORDERED: SODIUM CHLORIDE 0.9% 1,000 ML IV SCH (23:45)
[2020-12-25] MEDS ORDERED: RX INFO: IV CONTRAST WAS GIVEN 1 EACH MISC MISCELLANE PRN (23:51)
[2020-12-25] MEDS ORDERED: MAG HYDROX/AL HYDROX/SIMETH 30 ML CUP PO PRN (23:51)
[2020-12-25] MEDS ORDERED: NITROGLYCERIN SL TABS 0.4 MG TAB SUBLINGUAL PRN (23:51)
[2020-12-25] MEDS ORDERED: ATROPINE SULFATE 0.1 MG/ML 10ML SYRINGE IV PRN (23:51)
[2020-12-25] MEDS ORDERED: ZOLPIDEM 5 MG TAB PO PRN (23:51)
[2020-12-26 00:02] LABS: Glucose,Whole Blood 171 mg/dL (75-99)
[2020-12-26] MEDS ORDERED: ACETAMINOPHEN TAB 325 MG TAB PO PRN (03:12)
[2020-12-26 03:32] LABS: Basophils % (A) 0 %; Eosinophils % (A) 0 %; HCT 40.4 % (39.0-53.0); HGB 12.9 gm/dL (13.0-17.5); Lymphocytes # (A) 0.9 k/uL (1.0-4.8); Lymphocytes % (A) 8 %; MCH 29.5 pg (25.0-35.0); MCHC 31.8 g/dL (31.0-37.0); MCV 92.6 fL (80.0-100.0); Mean Platelet Volume 6.7; Monocytes # (A) 0.7 k/uL (0-1.0); Monocytes % (A) 6 %; Neutrophils # (A) 9.8 k/uL (1.3-7.7); Neutrophils % (A) 84 %; Platelet Count 270 k/uL (150-450); RBC 4.36 m/uL (4.30-5.90); RDW 14.9 % (11.5-15.5); WBC 11.7 k/uL (3.8-10.6)
[2020-12-26 03:35] LABS: African American GFR (CKD) >90 (>60 ml/min/1.73 sqM); Anion Gap 7 mmol/L; Blood Urea Nitrogen 6 mg/dL (9-20); Calcium 8.4 mg/dL (8.4-10.2); Carbon Dioxide 21 mmol/L (22-30); Chloride 95 mmol/L (98-107); Glucose 127 mg/dL (74-99); Non-African American GFR(CKD) >90 (>60 ml/min/1.73 sqM); Potassium 3.9 mmol/L (3.5-5.1); Sodium 123 mmol/L (137-145)
[2020-12-26] MEDS ORDERED: Potassium Replacement Protocol 1 EACH MISC MISCELLANE PRN (03:43)
[2020-12-26] MEDS ORDERED: POTASSIUM CHLORIDE ER 20 MEQ TAB.ER PO SCH (04:00)
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
--- NOTE | 2020-12-26 07:08 | CC ---
CARDIAC CATHETERIZATION REPORT PROCEDURE PERFORMED: Cardiac catheterization and angioplasty. HISTORY OF PRESENT ILLNESS: Mr. Parsons is a 55-year-old male with no history of obstructive coronary artery disease who presented to the emergency room with symptoms of chest discomfort that started yesterday and persisted throughout the day until this evening. On presentation he was found to have a troponin of 13 there was QS in V1 and V2 and T-wave inversion. In view of that, recommendation was made regarding cardiac catheterization, the procedure as well as the risks and the complications were discussed with the patient who is in full understanding and agreement. PROCEDURE: Patient was brought to the lab systems analyst in a fasting semi-sedate state after receiving fentanyl and Benadryl and achieving moderate conscious sedated state. Using Xylocaine anesthesia and Seldinger technique a 6-Tajik sheath was introduced in the right radial artery. Attempts to advance a 6-Tajik FR 3-1/2 guiding catheter into the ascending aorta was very difficult because of severe tortuosity in the subclavian artery. At that time the catheter was removed and using Xylocaine anesthesia and Seldinger technique, a 6-Tajik sheath was introduced in the right femoral artery. Multiple attempts to cannulate the left main using a 6-Tajik 4 bent left Brooke catheter, 6-Tajik LBU 4, 6-Tajik 5 bent left Brooke catheter, 6-Tajik XB LAD 4, 6-Tajik LBU 3.5, 6-Tajik Voda left 4, 6-Tajik Voda left 3-1/2, 6-Tajik CLS 4.5 and subsequently CLS 4 were unsuccessful. Subsequently 6-Tajik Q4 was able to come close to the left main. Subsequently a 0.014 balanced medium weight J-wire was advanced across to the LAD with the help of a microcatheter. The wire crossed the total occlusion and positioned in the mid segment. Subsequently a 3.0 x 12 mm NC Trek balloon was advanced and 2 inflations at 8 atmospheres were done. Following that the balloon was removed and a 4.0 x 15 mm Xience Tiffany stent was deployed postdilated at 16 atmospheres. Following that the balloon was removed and a 4.0 x 15 mm Xience Tiffany stent was deployed distal to the first one and post dilated at 16 atmospheres. Then an inflation in the overlap segment was done at 16 atmospheres. Following that, the balloon and the guidewire were withdrawn back in the guiding catheter. Images were obtained and repeated and those images reveal stable successful stenting. At that point, the guiding catheter, the balloon and the guidewire were removed and a 6-Tajik right Brooke diagnostic catheter was introduced and images of the right coronary artery performed. The left guide was used to cross the aortic valve and end-diastolic pressure was calculated. Following that catheter and sheaths were removed. Hemostasis was obtained with deployment of a TR band on the right radial artery and Angio-Seal in the right femoral artery. Of note, patient received a total of 7000 units of intravenous heparin as well as intra- arterial verapamil. He also received an oral loading dose of Brilinta. He had no chest discomfort at the end of the procedure. FINDINGS: 1. Fluoroscopy: There was severe calcification involving the left anterior descending artery and the right femoral artery. 2. Left main: This is a large-sized vessel, bifurcating into left circumflex, left anterior descending artery, left main coronary artery. Has no evidence of high- grade stenosis. 3. Left anterior descending artery: This is a heavily calcified vessel that is totally occluded in the mid segment right after the takeoff of the first septal neck band operator. There is no antegrade flow. 4. Left circumflex: This is a nondominant large size vessel that has no evidence of high-grade stenosis and has about 30-40% plaque proximally. 5. Right coronary artery: This vessel is totally occluded proximally with no antegrade flow. 6. Collaterals: There is collateral from the left coronary system toward the distal right coronary artery. LEFT VENTRICULOGRAM: Left ventriculogram was not performed. HEMODYNAMICS: There was no gradient across the aortic valve. The left ventricle end-diastolic pressure was 6-8 mmHg. ANGIOPLASTY: Successful recanalization of the totally occluded right coronary artery in the mid segment with reduction of stenosis from 100% to less than 10%. There was chronic occlusion of the distal LAD. CONCLUSION: 1. Acutely occluded mid left anterior descending with successful stenting of that segment with chronic occlusion of the distal left anterior descending. 2. 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 3. Mild disease in the proximal left circumflex. 4. Severely calcified coronary arteries. 5. Severe tortuosity of the aorta as well as the right subclavian. RECOMMENDATION: I reviewed the results with the patient in detail as well as the importance of dual antiplatelet treatment. The findings and recommendation were discussed with him in full detail. Depending on his progress, further recommendation will be made. Duration of sedation is 74 minutes. MMODL / IJN: [id number] /
[2020-12-26] MEDS: TICAGRELOR 90 MG TAB PO SCH ×2 (09:17→21:25)
[2020-12-26] MEDS: ASPIRIN 81 MG PO SCH (09:17)
[2020-12-26] MEDS: SPIRONOLACTONE 25 MG TAB PO SCH (09:17)
[2020-12-26] MEDS: METOPROLOL TARTRATE 25 MG TAB PO SCH ×2 (09:17→22:00)
[2020-12-26] MEDS: HEPARIN SODIUM,PORCINE/PF 5,000 UNIT/0.5 ML SYRINGE SQ SCH ×2 (09:18→21:25)
[2020-12-26] MEDS: FAMOTIDINE 20 MG/2 ML VIAL IV SCH ×2 (09:18→21:25)
--- NOTE | 2020-12-26 09:45 | PN ---
PROGRESS NOTE Mr. Parsons is a 55-year-old male with history of smoking, history of hypertension who presented to the emergency room with symptoms of chest discomfort going on for about 24 hours, had T-wave inversion and QS pattern with mild ST-segment elevation in the anterior precordial leads with troponin of 13 on presentation. He underwent cardiac catheterization was found to have heavily calcified coronary arteries, chronically occluded right coronary artery and distal LAD with acutely occluded mid LAD and underwent stenting of the LAD. He is doing well this morning. He denies any chest pain. He denies any dizziness or palpitation. He denies any nausea. He continues to be on aspirin once a day, Brilinta 90 mg twice a day, Lipitor 80 mg daily, Zestril 2.5 mg twice a day, metoprolol tartrate 25 mg twice a day, spironolactone 25 mg daily. PHYSICAL EXAMINATION: Blood pressure 128/70 with a heart rate in the 80s. Lungs: No wheezes. Heart regular rate and rhythm, S1, S2. No S3. No rub appreciated. ABDOMEN: Soft, nontender. EXTREMITIES: No edema. Right groin no hematoma. Right radial pulse intact. LAB DATA: Sodium 123, BUN and creatinine 6 and 0.38. Hemoglobin 12.9. His peak troponin is 81.9. His EKG shows no significant evolution. IMPRESSION: 1. Status post acute myocardial infarction that occurred at least 12 hours prior to presentation with acutely occluded mid LAD and appearance of chronic occlusion of the distal LAD. 2. Chronically occluded right coronary artery. 3. History of hypertension. 4. History of chronic tobacco use. 5. Prior history of alcohol intake. 6. Hyponatremia. RECOMMENDATION: From the cardiac standpoint, I will continue present therapy. We will obtain echocardiogram with Doppler tomorrow. We will follow his sodium closely, increase his level of activity. I will increase the dose of his JUAN inhibitor. Depending on his progress, further recommendation will be made. MMODL / IJN: [id number] /
[2020-12-26 10:05] LABS: Chol/HDL Ratio 3.61; LDL Cholesterol,Calculated 102.2 mg/dL (0.0-131.0); VLDL Calculation 12.8 mg/dL (5.00-40.00)
[2020-12-26] MEDS ORDERED: ALBUTEROL NEBULIZED 2.5 MG/3 ML INHALATION PRN (11:07)
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
[2020-12-26] MEDS: SYMBICORT 80-4.5 MCG INHALER INHALATION SCH (20:31)
[2020-12-26] MEDS ORDERED: lisinopriL 5 MG TAB PO SCH (21:00)
[2020-12-26] MEDS: lamoTRIgine 100 MG TAB PO SCH (21:25)
[2020-12-26] MEDS: ATORVASTATIN 80 MG TAB PO SCH (21:25)
[2020-12-27 05:52] LABS: African American GFR (CKD) >90 (>60 ml/min/1.73 sqM); Anion Gap 5 mmol/L; Blood Urea Nitrogen 10 mg/dL (9-20); Calcium 8.7 mg/dL (8.4-10.2); Carbon Dioxide 26 mmol/L (22-30); Chloride 103 mmol/L (98-107); Glucose 116 mg/dL (74-99); Non-African American GFR(CKD) >90 (>60 ml/min/1.73 sqM); Potassium 4.1 mmol/L (3.5-5.1); Sodium 134 mmol/L (137-145)
[2020-12-27] MEDS: SYMBICORT 80-4.5 MCG INHALER INHALATION SCH ×2 (08:38→19:38)
[2020-12-27] MEDS: ASPIRIN 81 MG PO SCH (10:52)
[2020-12-27] MEDS: TICAGRELOR 90 MG TAB PO SCH ×2 (10:52→20:32)
[2020-12-27] MEDS: lamoTRIgine 100 MG TAB PO SCH ×2 (10:52→20:32)
[2020-12-27] MEDS: SPIRONOLACTONE 25 MG TAB PO SCH (10:52)
[2020-12-27] MEDS: METOPROLOL TARTRATE 25 MG TAB PO SCH ×2 (10:52→20:32)
[2020-12-27] MEDS: HEPARIN SODIUM,PORCINE/PF 5,000 UNIT/0.5 ML SYRINGE SQ SCH ×2 (10:53→20:32)
[2020-12-27] MEDS: FAMOTIDINE 20 MG/2 ML VIAL IV SCH ×2 (10:53→20:32)
[2020-12-27] MEDS: DULoxetine HCL 60 MG CAPSULE.DR PO SCH (10:59)
--- NOTE | 2020-12-27 10:59 | ECHOF ---
Referral Reason:mi MEASUREMENTS -------- HEIGHT: 172.7 cm WEIGHT: 90.3 kg BP: 102/66 IVSd: 1.2 cm (0.6 - 1.1) LVIDd: 3.1 cm (3.9 - 5.3) LVPWd: 1.2 cm (0.6 - 1.1) IVSs: 1.8 cm LVIDs: 2.2 cm LVPWs: 1.7 cm LAESV Index (A-L): 35.17 ml/m Ao Diam: 3.7 cm (2.0 - 3.7) AV Cusp: 1.8 cm (1.5 - 2.6) LA Diam: 3.3 cm (2.7 - 3.8) MV EXCURSION: 12.495 mm (> 18.000) MV EF SLOPE: 66 mm/s (70 - 150) EPSS: 2.2 cm MV E Oc: 0.82 m/s MV DecT: 246 ms MV A Co: 1.17 m/s MV E/A Ratio: 0.70 RAP: 5.00 mmHg RVSP: 9.06 mmHg FINDINGS -------- This was a technically difficult study with suboptimal views. The left ventricular size is normal. There is mild concentric left ventricular hypertrophy. Overa ll left ventricular systolic function is mild-moderately impaired with, an EF between 40 - 45 %. In creased LAP Grade 2 Diastolic Dysfunction. Basal inferoseptal LV wall motion is hypokinetic. Api clive septum LV wall motion is hypokinetic. Anterseptal Hypokinesis Mid to basal inferiorlateral i s hypokinetic The right ventricle is normal in size. LA is moderately dilated 34-39 ml/m2 The right atrial size is normal. Lumason used The aortic valve was not well visualized. The mitral valve is normal. There is trace mitral regurgitation. The tricuspid valve appears structurally normal. Trace tricuspid regurgitation present. Right jessica tricular systolic pressure is normal at < 35 mmHg. There is no pulmonic regurgitation present. The aortic root size is normal. IVC Not well visulized. There is a trivial pericardial effusion present. Moderate Pleural Effusion. CONCLUSIONS -------- 1. The left ventricular size is normal. 2. There is mild concentric left ventricular hypertrophy. 3. Overall left ventricular systolic function is mild-moderately impaired with, an EF between 40 - 45 %. 4. Increased LAP Grade 2 Diastolic Dysfunction. 5. Basal inferoseptal LV wall motion is hypokinetic. 6. Apical septum LV wall motion is hypokinetic. 7. Anterseptal Hypokinesis 8. Mid to basal inferiorlateral is hypokinetic 9. LA is moderately dilated 34-39 ml/m2 10. There is trace mitral regurgitation. 11. Trace tricuspid regurgitation present. 12. There is a trivial pericardial effusion present. 13. Moderate Pleural Effusion. TOP EDGE BEVELER: Breann Soares RDCS
[2020-12-27 11:00] VITALS: BMI 29.3
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
--- NOTE | 2020-12-27 13:44 | P.PN ---
Subjective This is a 55-year-old male patient with a past medical history of paroxysmal atrial fibrillation? (no details not on anticoagulation), history of polysubstance abuse, bipolar disorder, alcohol abuse, gastroesophageal reflux disease, COPD, nephrolithiasis, chronic low back pain gastric bypass, tobacco use and dependence. 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 He did complain of chest discomfort, troponin peaked at 81. On EKG he had a QS pattern in V1 and V2 and ST segment elevation. Cardiology was contacted and patient was taken to the laboratory coordinator which found acutely occluded mid left anterior descending with successful stenting of that segment with chronic occlusion of the distal LAD. Chronic occlusion of the proximal right coronary artery, mild disease in the proximal left circumflex, severely calcified coronary arteries, severe t ortuosity of the aorta as well as the right subclavian. Patient seen and examined in the ICU. Lying in bed, no acute distress. Sodium 134, potassium 4.1, BUN 10, serum creatinine 0.58, triglycerides 64, cholesterol 159, LDL 102, HDL 44. Blood pressure 120/81, heart rate 86, afebrile, maintaining oxygen saturations 96% on room air GENERAL: Well-appearing, well-nourished and in no acute distress. NECK: Supple without JVD or thyromegaly. LUNGS: Breath sounds clear to auscultation bilaterally. Respiration equal and unlabored. No wheezes, rales or rhonchi. HEART: Regular rate and rhythm without murmurs, rubs or gallops. S1 and S2 heard. EXTREMITIES: Normal range of motion, no edema. No clubbing or cyanosis. Peripheral pulses intact. ASSESSMENT STEMI s/p PCI to distal LAD History of hypertension Chronic nicotine dependence Chronically occluded RCA Paroxysmal atrial fibrillation?- this is self reported per primary team, patient he thinks he had atrial fibrillation, however, never has been on anticoagulation and no documentation by cardiology associates of this in the past. PLAN -Echocardiogram ordered -Continue aspirin 81mg daily, atorvastatin 80mg nightly, Brilinta -Continue lisinopril 2.5mg daily and metoprolol tartrate 25mg BID -Further recommendations to follow Nurse Practitioner note has been reviewed, I agree with a documented findings and plan of care. Patient was seen and examined. Objective - Vital Signs Vital signs: Vital Signs Temp 98.9 F 12/26/20 09:00 Pulse 78 12/26/20 14:00 Resp 12 12/26/20 14:00 BP 104/73 12/26/20 14:00 Pulse Ox 94 L 12/26/20 14:00 Intake & Output 12/25/20 12/26/20 12/26/20 18:59 06:59 18:59 Intake Total 550 450 Output Total 1350 1900 Balance -800 -1450 Weight 83.915 kg 90.3 kg Intake: IV 550 450 Sodium Chloride 0.9% 1, 450 450 000 ml @ 75 mls/hr IV . [id number] [facility] Rx#:[id number] Output: Urine 1350 1900 Other: Voiding Method Urinal Urinal - Labs CBC & Chem 7: 12/26/20 02:31 12/27/20 04:54 Labs: Abnormal Lab Results - Last 24 Hours (Table) 12/25/20 12/25/20 12/25/20 Range/Units 18:59 18:59 18:59 WBC 12.8 H (3.8-10.6) k/uL Hgb (13.0-17.5) gm/dL Neutrophils # 10.4 H (1.3-7.7) k/uL Lymphocytes # (1.0-4.8) k/uL Sodium 123 L (137-145) mmol/L Chloride 92 L (98-107) mmol/L Carbon Dioxide (22-30) mmol/L BUN 6 L (9-20) mg/dL Creatinine 0.46 L (0.66-1.25) mg/dL Glucose 125 H (74-99) mg/dL POC Glucose (mg/dL) (75-99) mg/dL Osmolality (280-301) mosm/kg Total Bilirubin 1.4 H (0.2-1.3) mg/dL AST 178 H (17-59) U/L Troponin I 13.300 H* (0.000-0.034) ng/mL 12/26/20 12/26/20 12/26/20 Range/Units 00:00 00:49 02:31 WBC (3.8-10.6) k/uL Hgb (13.0-17.5) gm/dL Neutrophils # (1.3-7.7) k/uL Lymphocytes # (1.0-4.8) k/uL Sodium (137-145) mmol/L Chloride (98-107) mmol/L Carbon Dioxide (22-30) mmol/L BUN (9-20) mg/dL Creatinine (0.66-1.25) mg/dL Glucose (74-99) mg/dL POC Glucose (mg/dL) 171 H (75-99) mg/dL Osmolality (280-301) mosm/kg Total Bilirubin (0.2-1.3) mg/dL AST (17-59) U/L Troponin I 67.400 H* 81.900 H* (0.000-0.034) ng/mL 12/26/20 12/26/20 12/26/20 Range/Units 02:31 02:31 06:36 WBC 11.7 H (3.8-10.6) k/uL Hgb 12.9 L (13.0-17.5) gm/dL Neutrophils # 9.8 H (1.3-7.7) k/uL Lymphocytes # 0.9 L (1.0-4.8) k/uL Sodium 123 L (137-145) mmol/L Chloride 95 L (98-107) mmol/L Carbon Dioxide 21 L (22-30) mmol/L BUN 6 L (9-20) mg/dL Creatinine 0.38 L (0.66-1.25) mg/dL Glucose 127 H (74-99) mg/dL POC Glucose (mg/dL) (75-99) mg/dL Osmolality 258 L (280-301) mosm/kg Total Bilirubin (0.2-1.3) mg/dL AST (17-59) U/L Troponin I (0.000-0.034) ng/mL
[2020-12-27] MEDS: ATORVASTATIN 80 MG TAB PO SCH (20:32)
[2020-12-28] MEDS: SYMBICORT 80-4.5 MCG INHALER INHALATION SCH (08:28)
[2020-12-28 09:25] VITALS: TEMP 98.4
[2020-12-28] MEDS: DULoxetine HCL 60 MG CAPSULE.DR PO SCH (09:29)
[2020-12-28] MEDS: ASPIRIN 81 MG PO SCH (09:29)
[2020-12-28] MEDS: FAMOTIDINE 20 MG/2 ML VIAL IV SCH (09:30)
[2020-12-28] MEDS: HEPARIN SODIUM,PORCINE/PF 5,000 UNIT/0.5 ML SYRINGE SQ SCH (09:30)
[2020-12-28] MEDS: TICAGRELOR 90 MG TAB PO SCH (09:31)
[2020-12-28] MEDS: SPIRONOLACTONE 25 MG TAB PO SCH (09:31)
[2020-12-28] MEDS: lamoTRIgine 100 MG TAB PO SCH (09:31)
[2020-12-28] MEDS: METOPROLOL TARTRATE 25 MG TAB PO SCH (09:31)
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
[2020-12-28 11:43] VITALS: BP 120/82; PULSE 61; RESP 16
--- NOTE | 2020-12-28 12:52 | P.PN ---
Subjective This is a 55-year-old male patient with a past medical history of paroxysmal atrial fibrillation? (uknown details not on anticoagulation), history of polysubstance abuse, bipolar disorder, alcohol abuse, gastroesophageal reflux disease, COPD, nephrolithiasis, chronic low back pain gastric bypass, tobacco use and dependence. 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 He did complain of chest discomfort, troponin peaked at 81. On EKG he had a QS pattern in V1 and V2 and ST segment elevation. Cardiology was contacted and patient was taken to the lab manager which found acutely occluded mid left anterior descending with successful stenting of that segment with chronic occlusion of the distal LAD. Chronic occlusion of the proximal right coronary artery, mild disease in the proximal left circumflex, severely calcified coronary arteries, severe t ortuosity of the aorta as well as the right subclavian. 12/28/2020 Yesterday patient transferred to from ICU. Sitting up in bed, no acute distress. Doing well. Ambulating with no difficulty. Denies chest pain, shortness of breath, palpitations, lightheadedness, dizziness. Blood pressure 120/82, heart rate 61, afebrile, maintaining oxygen saturations 99% on room air. Currently being maintained on aspirin 81mg daily, atorvastatin 80mg nightly, Brilinta 90mg BID, lisinopril 2.5mg daily and metoprolol tartrate 25mg BID, spironolactone 25mg daily . Echocardiogram revealed- left ventricular systolic function is mild-moderately impaired with EF 40-45%, Grade 2 diastolic dysfunction, with LV wall hypokinesis, LA is moderately dilated, trace MR, trace TR. GENERAL: Well-appearing, well-nourished and in no acute distress. NECK: Supple without JVD or thyromegaly. LUNGS: Breath sounds clear to auscultation bilaterally. Respiration equal and unlabored. No wheezes, rales or rhonchi. HEART: Regular rate and rhythm without murmurs, rubs or gallops. S1 and S2 heard. EXTREMITIES: Normal range of motion, no edema. No clubbing or cyanosis. Peripheral pulses intact. ASSESSMENT STEMI s/p PCI to distal LAD History of hypertension Chronic nicotine dependence Chronically occluded RCA Ischemic cardiomyopathy EF 40-45% Paroxysmal atrial fibrillation?- this is self reported per primary team, patient he thinks he had atrial fibrillation, however, never has been on anticoagulation and no documentation by cardiology associates of this in the past. PLAN -From cardiology perspective patient is stable to be discharged. -Continue aspirin 81mg daily, atorvastatin 80mg nightly, Brilinta 90mg BID, lisinopril 2.5mg daily and metoprolol tartrate 25mg BID, spironolactone 25mg daily. -Brilinta is covered and copay is $9.20/month per case management, and patient is agreeable to this -Smoking cessation discussed with patient and highly encouraged -Patient is following up in the office outpatient and has a scheduled appointment on 01/04/21. Nurse Practitioner note has been reviewed, I agree with a documented findings and plan of care. Patient was seen and examined. Objective - Vital Signs Vital signs: Vital Signs Temp 98.4 F 12/28/20 11:42 Pulse 61 12/28/20 11:42 Resp 16 12/28/20 11:42 BP 120/82 12/28/20 11:42 Pulse Ox 99 12/28/20 11:42 Intake & Output 12/27/20 12/28/20 12/28/20 18:59 06:59 18:59 Intake Total 450 Output Total 1050 Balance -600 Weight 87.6 kg 83.7 kg Intake: Oral 450 Output: Urine 1050 Other: Voiding Method Urinal Urinal # Voids 1 1 - Labs CBC & Chem 7: 12/26/20 02:31 12/27/20 04:54
[2020-12-28] MEDS ORDERED: FAMOTIDINE 20 MG TAB PO SCH (21:00)
== END 2020-12-28 13:22 | disposition home or self-care (01) | DRG 247 ==
LOC: EC 18:29 → 2SICU 22:32 → 3SCARD 12-27 20:09
PROVIDERS: ADMIT Internal Medicine Geriatric Medicine; ATTEND Internal Medicine Geriatric Medicine
PROC: B2111ZZ Fluoroscopy of Multiple Coronary Arteries using Low Osmolar Contrast (ICD-10-PCS; 2020-12-25)
PROC: 027035Z Dilation of Coronary Artery, One Artery with Two Drug-eluting Intraluminal Devices, Percutaneous Approach (ICD-10-PCS; principal; 2020-12-25 21:59)
PROC: 4A023N7 Measurement of Cardiac Sampling and Pressure, Left Heart, Percutaneous Approach (ICD-10-PCS; 2020-12-25 21:59)
DX: I21.09 ST elevation (STEMI) myocardial infarction involving other coronary artery of anterior wall (principal); E87.1 Hypo-osmolality and hyponatremia; J44.9 Chronic obstructive pulmonary disease, unspecified; I10 Essential (primary) hypertension; F17.210 Nicotine dependence, cigarettes, uncomplicated; K58.9 Irritable bowel syndrome, unspecified; F31.9 Bipolar disorder, unspecified; F43.10 Post-traumatic stress disorder, unspecified; Z82.49 Family history of ischemic heart disease and other diseases of the circulatory system; I48.0 Paroxysmal atrial fibrillation; Z79.51 Long term (current) use of inhaled steroids; Z20.822 Contact with and (suspected) exposure to COVID-19; Z79.02 Long term (current) use of antithrombotics/antiplatelets; Z79.82 Long term (current) use of aspirin; I25.10 Atherosclerotic heart disease of native coronary artery without angina pectoris; Z98.84 Bariatric surgery status; I25.5 Ischemic cardiomyopathy; S50.311A Abrasion of right elbow, initial encounter; G89.29 Other chronic pain; M54.5 Low back pain; R33.9 Retention of urine, unspecified; Z87.01 Personal history of pneumonia (recurrent); Z81.1 Family history of alcohol abuse and dependence; Z83.2 Family history of diseases of the blood and blood-forming organs and certain disorders involving the immune mechanism; K21.9 Gastro-esophageal reflux disease without esophagitis
CPT/HCPCS: 36415; 70450; 71046; 80048; 80053; 80061; 83930; 83935; 84300; 84484; 85025; 85610; 85730; 87635; 93005; 93306; 93458; 94640; 96374; 99285

== ENCOUNTER 2021-02-12 17:38 | Observation (INO) | payer MEDICARE, OTHER ==
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
[2021-02-12 18:26] LABS: Basophils # (A) 0.1 k/uL (0-0.2); Basophils % (A) 1 %; Eosinophils # (A) 0.2 k/uL (0-0.7); Eosinophils % (A) 2 %; HCT 42.9 % (39.0-53.0); HGB 14.4 gm/dL (13.0-17.5); Lymphocytes # (A) 2.1 k/uL (1.0-4.8); Lymphocytes % (A) 24 %; MCH 31.4 pg (25.0-35.0); MCHC 33.5 g/dL (31.0-37.0); MCV 93.9 fL (80.0-100.0); Mean Platelet Volume 6.6; Monocytes # (A) 0.5 k/uL (0-1.0); Monocytes % (A) 6 %; Neutrophils # (A) 5.4 k/uL (1.3-7.7); Neutrophils % (A) 63 %; Platelet Count 388 k/uL (150-450); RBC 4.57 m/uL (4.30-5.90); RDW 14.6 % (11.5-15.5); WBC 8.6 k/uL (3.8-10.6)
[2021-02-12 18:35] LABS: ALT 36 U/L (4-49); AST 87 U/L (17-59); Acetaminophen <10.0 ug/mL; African American GFR (CKD) >90 (>60 ml/min/1.73 sqM); Albumin 4.5 g/dL (3.5-5.0); Alkaline Phosphatase 92 U/L (38-126); Anion Gap 16 mmol/L; Blood Urea Nitrogen 13 mg/dL (9-20); Calcium 8.9 mg/dL (8.4-10.2); Carbon Dioxide 23 mmol/L (22-30); Chloride 101 mmol/L (98-107); Glucose 111 mg/dL (74-99); Non-African American GFR(CKD) >90 (>60 ml/min/1.73 sqM); Potassium 4.3 mmol/L (3.5-5.1); Salicylate <1.0 mg/dL; Sodium 140 mmol/L (137-145); Total Bilirubin 0.5 mg/dL (0.2-1.3); Total Protein 7.3 g/dL (6.3-8.2)
[2021-02-12 19:00] LABS: Alcohol 413 mg/dL
[2021-02-12] MEDS ORDERED: LORazepam 2 MG/ML INJ IV PRN ×2 (19:13)
[2021-02-12] MEDS ORDERED: ONDANSETRON 4 MG/2 ML VIAL IVP PRN (19:13)
[2021-02-12] MEDS ORDERED: THIAMINE 100 MG/ML 2 ML VIAL IM STA (19:13)
[2021-02-12] MEDS ORDERED: NALOXONE 0.4 MG/ML 1 ML VIAL IV PRN (19:13)
[2021-02-12] MEDS: LORazepam 2 MG/ML INJ IV PRN (20:14)
[2021-02-12 20:34] VITALS: RESP 18
[2021-02-12 21:19] LABS: Amphetamine Screen,Urine Not Detected (NotDetected); Barbiturate Screen,Urine Not Detected (NotDetected); Benzodiazepines Screen,Urine Not Detected (NotDetected); Cocaine Screen,Urine Not Detected (NotDetected); Methadone Screen, Urine Not Detected (NotDetected); Opiate Screen,Urine Not Detected (NotDetected); Oxycodone Screen, Urine Not Detected (NotDetected); Phencyclidine Screen,Urine Not Detected (NotDetected); Tricyclic Antidepressant,Urine Not Detected (NotDetected); Urn Cannabinoid Scrn Not Detected (NotDetected)
[2021-02-12 22:14] LABS: Glucose,Whole Blood 107 mg/dL (75-99)
[2021-02-12] MEDS: THIAMINE 100 MG TAB PO SCH (23:08)
[2021-02-13 04:55] VITALS: BP 96/59; PULSE 108; TEMP 98.4
[2021-02-13] MEDS: THIAMINE 100 MG TAB PO SCH (08:33)
[2021-02-13] MEDS: LORazepam 2 MG/ML INJ IV PRN (08:33)
[2021-02-13] MEDS ORDERED: ALBUTEROL NEBULIZED 2.5 MG/3 ML INHALATION PRN (09:34)
[2021-02-13] MEDS ORDERED: TICAGRELOR 90 MG TAB PO SCH (09:45)
[2021-02-13] MEDS ORDERED: METOPROLOL TARTRATE 25 MG TAB PO SCH (09:45)
[2021-02-13] MEDS ORDERED: lamoTRIgine 100 MG TAB PO SCH (09:45)
[2021-02-13] MEDS ORDERED: DULoxetine HCL 60 MG CAPSULE.DR PO SCH (09:45)
--- NOTE | 2021-02-13 09:59 | P.HPIM ---
History of Present Illness 55-year-old male is admitted for alcohol intoxication and suicidal thoughts. The patient has been binge drinking for the last 5 days patient used to be an alcoholic with drinking alcohol on regular basis patient has been depressed s gonzalez his cardiac catheterization and stenting in month of November patient appears to have had acute systolic dysfunction at that time with EF of around 40-45%. Presently not in heart failure exacerbation patient is on Aldactone and lisinopril which are being held because of the low blood pressures. Patient is also not metoprolol which will be continued Patient was a very depressed was planing of suicidal thoughts but doesn't really have a plan. Patient is willing to go to psychiatric floor. REVIEW OF SYSTEMS: CONSTITUTIONAL: No fever, no malaise, no fatigue. HEENT: No recent visual problems or hearing problems. Denied any sore throat. CARDIOVASCULAR: No chest pain, orthopnea, PND, no palpitations, no syncope. PULMONARY: No shortness of breath, no cough, no hemoptysis. GASTROINTESTINAL: No diarrhea, no nausea, no vomiting, no abdominal pain. NEUROLOGICAL: No headaches, no weakness, no numbness. HEMATOLOGICAL: Denies any bleeding or petechiae. GENITOURINARY: Denies any burning micturition, frequency, or urgency. MUSCULOSKELETAL/RHEUMATOLOGICAL: Denies any joint pain, swelling, or any muscle pain. ENDOCRINE: Denies any polyuria or polydipsia. The rest of the 14-point review of systems is negative. PHYSICAL EXAMINATION: GENERAL: The patient is alert and oriented x3, not in any acute distress. Well developed, well nourished. HEENT: Pupils are round and equally reacting to light. EOMI. No scleral icterus. No conjunctival pallor. Normocephalic, atraumatic. No pharyngeal erythema. No thyromegaly. CARDIOVASCULAR: S1 and S2 present. No murmurs, rubs, or gallops. PULMONARY: Chest is clear to auscultation, no wheezing or crackles. ABDOMEN: Soft, nontender, nondistended, normoactive bowel sounds. No palpable organomegaly. MUSCULOSKELETAL: No joint swelling or deformity. EXTREMITIES: No cyanosis, clubbing, or pedal edema. NEUROLOGICAL: Gross neurological examination did not reveal any focal deficits. SKIN: No rashes. Assessment and plan -Alcohol abuse: Counseling was provided, considering his alcoholism history and his labs are do not believe expect significant withdrawals because of which made patient is medically stable to be discharged to psychiatric floor. Patient will be continued on thiamine segmentation -Sinus tachycardia reflux tachycardia as he didn't receive his metoprolol which will resume -Congestive heart failure acute systolic dysfunction when he had an [place] it may have improved by now patient is euvolemic at this time not in heart failure exacerbation. Patient will benefit from lisinopril as his blood pressure cannot tolerate it patient will not be started on lisinopril although Aldactone will be continued upon discharge. -Coronary artery disease with stents in month. Continue with dual antiplatelet a beta deepa and a statin -COPD without any acute exacerbation -Continued nicotine use: Counseling was provided -Depression with suicidal ideation patient is willing to go to psychiatric floor. Resume his antidepressants further management as per psychiatry Patient is medically stable to be discharged to psychiatric floor patient voluntarily wanted to go to psych floor. Past Medical History Past Medical History: COPD, GERD/Reflux, GI Bleed, Hypertension, Musculoskeletal Disorder, Pneumonia, Renal Disease, Skin Disorder Additional Past Medical History / Comment(s): ETOH abuse with delirium tremors, lower GI bleed, IBS, chronic iron deficiency anemia, hypomagnesemia, hyperbilirubinemia, anorexia, vertigo, nephrolithiasis-passed stone on his own, chronic low back/cervical pain, DDD, kyphosis, scoliosis, coccyx pressure ulcer pt states is mostly healed History of Any Multi-Drug Resistant Organisms: None Reported Past Surgical History: Bariatric Surgery, Hernia Repair, Orthopedic Surgery, To nsillectomy Additional Past Surgical History / Comment(s): Right inner Forearm-metal plate, gastric bypass, incisional hernia surgery x2, EGDs, colonoscopies. Past Anesthesia/Blood Transfusion Reactions: No Reported Reaction Past Psychological History: Anxiety, Bipolar, Depression, PTSD Additional Psychological History / Comment(s): Pt resides in a friends home where he rents a room. He uses the bus system to get to appointments. Pt states his depression is stable at this time, no thoughts or plans of suicide. He has had multiple mental health unit admissions. He has ETOH abus. He goes to [facility]. He has a payee. Smoking Status: Smoker, current status unknown Past Alcohol Use History: Abuse, Heavy Additional Past Alcohol Use History / Comment(s): . Past Drug Use History: Heroin, Marijuana Additional Drug Use History / Comment(s): . - Past Family History Mother Family Medical History: Hypertension Additional Family Medical History / Comment(s): Lupus. Mother is living. Father Family Medical History: Liver Disease Additional Family Medical History / Comment(s): ETOH abuse. of cirrhosis complications. Medications and Allergies Home Medications Medication Instructions Recorded Confirmed Type lamoTRIgine [LaMICtal] 100 mg PO BID 08/06/20 02/12/21 History Albuterol Inhaler [Ventolin Hfa 2 puff INHALATION RT-Q4H PRN 12/26/20 02/12/21 History Inhaler] Budesonide/Formoterol Fumarate 2 puff INHALATION RT-BID 12/26/20 02/12/21 History [Symbicort 80-4.5 Mcg Inhaler] DULoxetine HCL [Cymbalta] 60 mg PO DAILY 12/26/20 02/12/21 History Ticagrelor [Brilinta] 90 mg PO BID 30 Days #60 tab 12/27/20 02/12/21 Rx Aspirin 81 mg PO DAILY chew 12/28/20 02/12/21 Rx Atorvastatin [Lipitor] 80 mg PO HS #30 tab 12/28/20 02/12/21 Rx Metoprolol Tartrate [Lopressor] 25 mg PO BID #60 tab 12/28/20 02/12/21 Rx Tamsulosin HCl [Flomax] 0.4 mg PO DAILY 02/12/21 02/12/21 History Spironolactone [Aldactone] 25 mg PO DAILY #30 tablet 02/13/21 Rx Thiamine [Vitamin B-1] 100 mg PO BID-W/MEALS tab 02/13/21 Rx Allergies Allergy/AdvReac Type Severity Reaction Status Date / Time No Known Allergies Allergy Verified 12/26/20 10:14 Physical Exam Vitals: Vital Signs Temp Pulse Pulse Pulse Resp BP BP 02/13/21 04:30 98.4 F 108 H 18 02/12/21 22:13 97.4 F L 101 H 18 92/63 02/12/21 20:32 88 18 137/84 02/12/21 17:40 98.5 F 91 16 136/89 BP Pulse Ox 02/13/21 04:30 96/59 96 02/12/21 22:13 96 02/12/21 20:32 99 02/12/21 17:40 97 Intake and Output 02/12/21 02/13/21 02/13/21 22:59 06:59 14:59 Intake Total 600 Balance 600 Intake: Oral 600 Other: Voiding Method Toilet Urinal # Voids 2 Weight 72.575 kg Results CBC & Chem 7: 02/12/21 18:17 02/12/21 18:17 Labs: Abnormal Lab Results - Last 24 Hours (Table) 02/12/21 02/12/21 Range/Units 18:17 22:11 Creatinine 0.56 L (0.66-1.25) mg/dL Glucose 111 H (74-99) mg/dL POC Glucose (mg/dL) 107 H (75-99) mg/dL AST 87 H (17-59) U/L Serum Alcohol 413 H* mg/dL Thrombosis Risk Factor Assmnt - Choose All That Apply Each Factor Represents 1 point: Age 41-60 years Thrombosis Risk Factor Assessment Total Risk Factor Score: 1 Thrombosis Risk Factor Assessment Level: Low Risk
--- NOTE | 2021-02-13 09:59 | P.DS ---
Providers Date of admission: 02/12/21 19:13 Attending physician: Ki Gibbs Consults: 02/12/21 19:13 Consult Physician Urgent Consulting Provider: Wicho Zheng Consult Reason/Comments: suicidal Do you want consulting provider notified?: Yes Primary care physician: Stated None Hospital Course: Please refer to HPI for further details Patient Condition at Discharge: Serious Plan - Discharge Summary Discharge Rx Participant: Yes New Discharge Prescriptions: New Thiamine [Vitamin B-1] 100 mg PO BID-W/MEALS tab Spironolactone [Aldactone] 25 mg PO DAILY #30 tablet Continue lamoTRIgine [LaMICtal] 100 mg PO BID Albuterol Inhaler [Ventolin Hfa Inhaler] 2 puff INHALATION RT-Q4H PRN PRN Reason: Shortness Of Breath Ticagrelor [Brilinta] 90 mg PO BID 30 Days #60 tab Atorvastatin [Lipitor] 80 mg PO HS #30 tab Metoprolol Tartrate [Lopressor] 25 mg PO BID #60 tab DULoxetine HCL [Cymbalta] 60 mg PO DAILY Budesonide/Formoterol Fumarate [Symbicort 80-4.5 Mcg Inhaler] 2 puff INHALATION RT-BID Aspirin 81 mg PO DAILY chew Tamsulosin HCl [Flomax] 0.4 mg PO DAILY Discontinued Spironolactone [Aldactone] 25 mg PO DAILY #30 tab lisinopriL [Zestril] 2.5 mg PO BID #60 tab Discharge Medication List lamoTRIgine [LaMICtal] 100 mg PO BID 08/06/20 [History] Albuterol Inhaler [Ventolin Hfa Inhaler] 2 puff INHALATION RT-Q4H PRN 12/26/20 [History] Budesonide/Formoterol Fumarate [Symbicort 80-4.5 Mcg Inhaler] 2 puff INHALATION RT-BID 12/26/20 [History] DULoxetine HCL [Cymbalta] 60 mg PO DAILY 12/26/20 [History] Ticagrelor [Brilinta] 90 mg PO BID 30 Days #60 tab 12/27/20 [Rx] Aspirin 81 mg PO DAILY chew 12/28/20 [Rx] Atorvastatin [Lipitor] 80 mg PO HS #30 tab 12/28/20 [Rx] Metoprolol Tartrate [Lopressor] 25 mg PO BID #60 tab 12/28/20 [Rx] Tamsulosin HCl [Flomax] 0.4 mg PO DAILY 02/12/21 [History] Spironolactone [Aldactone] 25 mg PO DAILY #30 tablet 02/13/21 [Rx] Thiamine [Vitamin B-1] 100 mg PO BID-W/MEALS tab 02/13/21 [Rx]
[2021-02-13] MEDS ORDERED: SYMBICORT 80-4.5 MCG INHALER INHALATION SCH (20:00)
[2021-02-13] MEDS ORDERED: ATORVASTATIN 80 MG TAB PO SCH (21:00)
[2021-02-14] MEDS ORDERED: TAMSULOSIN 0.4 MG CAP.ER.24H PO SCH (09:00)
[2021-02-14] MEDS ORDERED: ASPIRIN 81 MG PO SCH (09:00)
== END 2021-02-13 14:52 | disposition home or self-care (01) ==
LOC: EC 17:38 → 5NMEDONC 19:13
PROVIDERS: ADMIT Internal Medicine; ATTEND Internal Medicine
DX: F10.129 Alcohol abuse with intoxication, unspecified (principal); R45.851 Suicidal ideations; Z79.51 Long term (current) use of inhaled steroids; Z79.02 Long term (current) use of antithrombotics/antiplatelets; Z79.82 Long term (current) use of aspirin; Z79.899 Other long term (current) drug therapy; J44.9 Chronic obstructive pulmonary disease, unspecified; K21.9 Gastro-esophageal reflux disease without esophagitis; I11.0 Hypertensive heart disease with heart failure; I50.21 Acute systolic (congestive) heart failure; Z87.19 Personal history of other diseases of the digestive system; Z87.01 Personal history of pneumonia (recurrent); M41.9 Scoliosis, unspecified; Z87.442 Personal history of urinary calculi; D50.9 Iron deficiency anemia, unspecified; K58.9 Irritable bowel syndrome, unspecified; Z98.84 Bariatric surgery status; Z98.890 Other specified postprocedural states; Z82.49 Family history of ischemic heart disease and other diseases of the circulatory system; F31.9 Bipolar disorder, unspecified; F43.10 Post-traumatic stress disorder, unspecified; F41.9 Anxiety disorder, unspecified; Z82.69 Family history of other diseases of the musculoskeletal system and connective tissue; Z83.79 Family history of other diseases of the digestive system; Z81.1 Family history of alcohol abuse and dependence; Y90.8 Blood alcohol level of 240 mg/100 ml or more; R00.0 Tachycardia, unspecified; I25.10 Atherosclerotic heart disease of native coronary artery without angina pectoris; Z95.5 Presence of coronary angioplasty implant and graft; F17.200 Nicotine dependence, unspecified, uncomplicated
CPT/HCPCS: 99285; 96376; 82075; 96372; 96374; 36415; 80053; 85025; 80306; 80143; 80179; G0378 ×2; G0480; J2060 ×2; J3411; 80320

== ENCOUNTER 2021-02-18 18:03 | Observation (INO) | payer MEDICARE, OTHER ==
[2021-02-18] MEDS ORDERED: NITROGLYCERIN SL TABS 0.4 MG TAB SUBLINGUAL STA (18:31)
[2021-02-18] MEDS ORDERED: HEPARIN SODIUM 1,000 UN/ML (10ML VL) IV ONE (18:31)
[2021-02-18] MEDS ORDERED: LORazepam 2 MG/ML INJ IV STA (18:38)
--- NOTE | 2021-02-18 18:52 | ED ---
General Adult HPI - General Chief complaint: Chest Pain Stated complaint: Chest Pain Time Seen by Provider: 02/18/21 18:09 Source: patient, EMS Mode of arrival: EMS - History of Present Illness Initial comments: Dictation was produced using [employer] dictation software. please excuse any grammatical, word or spelling errors. Chief Complaint: 55-year-old male presents with chest pain History of Present Illness: Is 55-year-old male past medical history of coronary artery disease. He presents today with chest pain since this morning. States is a pressure that went up to his jaw. States it feels like when he was diagnosed with a cardiac infarction on December 25 of this year. Patient states he woke up with this pain told the staff that he would like to come to the emergency room. He is currently at [facility] for alcohol detoxification. He was given nitroglycerin this morning with improvement of symptoms. EMS performed EKG which they said did not show any myocardial infarction. Patient evaluated at bedside states that his symptoms improved with the nitroglycerin this morning however he started having some symptoms. States his last alcohol ingestion was yesterday. The ROS documented in this emergency department record has been reviewed and confirmed by me. Those systems with pertinent positive or negative responses have been documented in the HPI. All other systems are other negative and/or noncontributory. PHYSICAL EXAM: General Impression: Alert and oriented x3, tremulous HEENT: Normocephalic atraumatic, extra-ocular movements intact, pupils equal and reactive to light bilaterally, mucous membranes moist. Cardiovascular: Heart regular rate and rhythm Chest: Able to complete full sentences, no retractions, no tachypnea Abdomen: abdomen soft, non-tender, non-distended, no organomegaly Musculoskeletal: Pulses present and equal in all extremities, no peripheral edema Motor: no focal deficits noted Neurological: CN II-XII grossly intact, no focal motor or sensory deficits noted Skin: Intact with no visualized rashes Psych: Normal affect and mood ED course: 55-year-old male with clinical presentation concerning for acute coronary syndrome. Vital signs upon arrival are within acceptable limits. Multiple EKGs were performed. There does appear to be ST elevations with Q waves in V1 through V3. Serial EKG showed no dynamic changes. Posterior EKG was unremarkable. There is no reciprocal changes. Case was discussed at 6:[address] Duenas who reviewed the EKGs and patient's EMR. Dr. Duenas does not recommend paging code STEMI at this time. Dr. Duenas's recommendation was to see what his troponin is an treat his chest pain. Patient started heparin and given nitroglycerin. Patient also given Ativan for his withdrawals. EKG interpretation: Ventricular rate 89, normal sinus rhythm,. Interval 150, QRS 80, QTC 423. No TX prolongation, no QTC prolongation, there does appear to be ST elevations in V1 and V2 and slightly in V3. Repeat EKG performed 24 minutes later showed no dynamic changes. Posterior EKG shows no reciprocal changes. 7:40 PM: Patient was reevaluated at bedside saying his symptoms are basically gone. Denies any chest pain symptoms at this time. CBC is unremarkable. Coag panel is negative. Metabolic panel appears to be within acceptable limits except for some mild hypomagnesemia. Patient given IV magnesium. Troponin is 0.057. I did discuss patient's labs with Dr. Duenas. He states that no indication for clinical laboratory medical director intervention at this time. He recommends patient be admitted for serial troponins and cardiac monitoring. Patient had her to be given aspirin by EMS. Started on IV heparin and given Nitropaste. Patient be admitted to Dr. Reilly. CiWA ordered, ativan PRN ordered. - Related Data Home Medications Medication Instructions Recorded Confirmed Acetaminophen [Tylenol] 650 mg PO Q4H PRN 02/18/21 02/18/21 Calcium/Magnesium 1 - 2 tab PO Q8H PRN 02/18/21 02/18/21 Chlorpheniramine Maleate 4 mg PO Q4H PRN 02/18/21 02/18/21 [Chlor-Trimeton] Ibuprofen [Motrin] 600 mg PO Q6H PRN 02/18/21 02/18/21 Metoprolol Tartrate [Lopressor] 25 mg PO BID@0600,172902/18/21 02/18/21 Multivitamins, Thera [Multivitamin 1 tab PO DAILY@59902/18/21 02/18/21 (formulary)] Thiamine [Vitamin B-1] 100 mg PO DAILY@0602/18/21 02/18/21 Ticagrelor [Brilinta] 90 mg PO BID@0600,172902/18/21 02/18/21 Tigan 200mg 200 mg IM Q6H PRN 02/18/21 02/18/21 Tigan 300mg Suppository 300 mg RECTAL Q6H PRN 02/18/21 02/18/21 Trimethobenzamide [Tigan] 300 mg PO Q6H PRN 02/18/21 02/18/21 Zofran 2mg/Ml 4 mg IM Q6H PRN 02/18/21 02/18/21 lisinopriL [Zestril] 2.5 mg PO DAILY@0600 02/18/21 02/18/21 ondansetron HCL [Zofran] 8 mg PO Q6H PRN 02/18/21 02/18/21 traZODone HCL 50 - 150 mg PO HS PRN 02/18/21 02/18/21 Allergies Allergy/AdvReac Type Severity Reaction Status Date / Time No Known Allergies Allergy Verified 02/18/21 19:04 Review of Systems ROS Statement: Those systems with pertinent positive or pertinent negative responses have been documented in the HPI. ROS Other: All systems not noted in ROS Statement are negative. Past Medical History Past Medical History: COPD, GERD/Reflux, GI Bleed, Hypertension, Musculoskeletal Disorder, Pneumonia, Renal Disease, Skin Disorder Additional Past Medical History / Comment(s): ETOH abuse with delirium tremors, lower GI bleed, IBS, chronic iron deficiency anemia, hypomagnesemia, hyperbilirubinemia, anorexia, vertigo, nephrolithiasis-passed stone on his own, chronic low back/cervical pain, DDD, kyphosis, scoliosis, coccyx pressure ulcer pt states is mostly healed History of Any Multi-Drug Resistant Organisms: None Reported Past Surgical History: Bariatric Surgery, Hernia Repair, Orthopedic Surgery, Tonsillectomy Additional Past Surgical History / Comment(s): Right inner Forearm-metal plate, gastric bypass, incisional hernia surgery x2, EGDs, colonoscopies. Past Anesthesia/Blood Transfusion Reactions: No Reported Reaction Past Psychological History: Anxiety, Bipolar, Depression, PTSD Smoking Status: Current every day smoker Past Alcohol Use History: Abuse, Heavy Past Drug Use History: Cocaine, Heroin, Marijuana - Past Family History Mother Family Medical History: Hypertension Additional Family Medical History / Comment(s): Lupus. Mother is living. Father Family Medical History: Liver Disease Additional Family Medical History / Comment(s): ETOH abuse. of cirrhosis complications. Course Vital Signs 02/18/21 02/18/21 02/18/21 18:05 18:12 18:51 Temperature 98.4 F Pulse Rate 87 96 Pulse Rate [ 85 Right Radial] Respiratory 18 18 Rate Blood Pressure 135/93 90/61 O2 Sat by Pulse 100 98 Oximetry 02/18/21 02/18/21 19:18 20:00 Temperature Pulse Rate 89 80 Pulse Rate [ Right Radial] Respiratory 18 18 Rate Blood Pressure 102/70 108/83 O2 Sat by Pulse 97 98 Oximetry Medical Decision Making - Lab Data Result diagrams: 02/18/21 18:47 02/18/21 18:47 Lab Results 02/18/21 02/18/21 02/18/21 Range/Units 18:47 18:47 18:47 WBC 9.2 (3.8-10.6) k/uL RBC 4.06 L (4.30-5.90) m/uL Hgb 13.3 (13.0-17.5) gm/dL Hct 39.1 (39.0-53.0) % MCV 96.4 (80.0-100.0) fL MCH 32.7 (25.0-35.0) pg MCHC 33.9 (31.0-37.0) g/dL RDW 15.7 H (11.5-15.5) % Plt Count 245 (150-450) k/uL MPV 6.6 Neutrophils % 86 % Lymphocytes % 7 % Monocytes % 4 % Eosinophils % 0 % Basophils % 1 % Neutrophils # 7.9 H (1.3-7.7) k/uL Lymphocytes # 0.6 L (1.0-4.8) k/uL Monocytes # 0.4 (0-1.0) k/uL Eosinophils # 0.0 (0-0.7) k/uL Basophils # 0.1 (0-0.2) k/uL PT 9.9 (9.0-12.0) sec INR 0.9 (<1.2) APTT 23.8 (22.0-30.0) sec Sodium 139 (137-145) mmol/L Potassium 4.2 (3.5-5.1) mmol/L Chloride 100 (98-107) mmol/L Carbon Dioxide 27 (22-30) mmol/L Anion Gap 12 mmol/L BUN 10 (9-20) mg/dL Creatinine 0.63 L (0.66-1.25) mg/dL Est GFR (CKD-EPI)AfAm >90 (>60 ml/min/1.73 sqM) Est GFR (CKD-EPI)NonAf >90 (>60 ml/min/1.73 sqM) Glucose 123 H (74-99) mg/dL Calcium 9.0 (8.4-10.2) mg/dL Magnesium 1.5 L (1.6-2.3) mg/dL Total Bilirubin 0.3 (0.2-1.3) mg/dL AST 87 H (17-59) U/L ALT 57 H (4-49) U/L Alkaline Phosphatase 97 (38-126) U/L Troponin I (0.000-0.034) ng/mL Total Protein 7.0 (6.3-8.2) g/dL Albumin 4.2 (3.5-5.0) g/dL 02/18/21 Range/Units 18:47 WBC (3.8-10.6) k/uL RBC (4.30-5.90) m/uL Hgb (13.0-17.5) gm/dL Hct (39.0-53.0) % MCV (80.0-100.0) fL MCH (25.0-35.0) pg MCHC (31.0-37.0) g/dL RDW (11.5-15.5) % Plt Count (150-450) k/uL MPV Neutrophils % % Lymphocytes % % Monocytes % % Eosinophils % % Basophils % % Neutrophils # (1.3-7.7) k/uL Lymphocytes # (1.0-4.8) k/uL Monocytes # (0-1.0) k/uL Eosinophils # (0-0.7) k/uL Basophils # (0-0.2) k/uL PT (9.0-12.0) sec INR (<1.2) APTT (22.0-30.0) sec Sodium (137-145) mmol/L Potassium (3.5-5.1) mmol/L Chloride (98-107) mmol/L Carbon Dioxide (22-30) mmol/L Anion Gap mmol/L BUN (9-20) mg/dL Creatinine (0.66-1.25) mg/dL Est GFR (CKD-EPI)AfAm (>60 ml/min/1.73 sqM) Est GFR (CKD-EPI)NonAf (>60 ml/min/1.73 sqM) Glucose (74-99) mg/dL Calcium (8.4-10.2) mg/dL Magnesium (1.6-2.3) mg/dL Total Bilirubin (0.2-1.3) mg/dL AST (17-59) U/L ALT (4-49) U/L Alkaline Phosphatase (38-126) U/L Troponin I 0.057 H* (0.000-0.034) ng/mL Total Protein (6.3-8.2) g/dL Albumin (3.5-5.0) g/dL Critical Care Time Critical Care Time: Yes Total Critical Care Time: 33 Disposition Clinical Impression: ACS (acute coronary syndrome) Disposition: ADMITTED IP TO THIS [facility] Condition: Critical
[2021-02-18] MEDS: HEPARIN SOD,PORK IN 0.45% NACL 25,000 UNIT in 0.45% NACL 1 250ML.BAG IV SCH (18:54)
[2021-02-18 18:59] LABS: Basophils # (A) 0.1 k/uL (0-0.2); Basophils % (A) 1 %; Eosinophils % (A) 0 %; HCT 39.1 % (39.0-53.0); HGB 13.3 gm/dL (13.0-17.5); Lymphocytes # (A) 0.6 k/uL (1.0-4.8); Lymphocytes % (A) 7 %; MCH 32.7 pg (25.0-35.0); MCHC 33.9 g/dL (31.0-37.0); MCV 96.4 fL (80.0-100.0); Mean Platelet Volume 6.6; Monocytes # (A) 0.4 k/uL (0-1.0); Monocytes % (A) 4 %; Neutrophils # (A) 7.9 k/uL (1.3-7.7); Neutrophils % (A) 86 %; Platelet Count 245 k/uL (150-450); RBC 4.06 m/uL (4.30-5.90); RDW 15.7 % (11.5-15.5); WBC 9.2 k/uL (3.8-10.6)
[2021-02-18 19:09] LABS: ALT 57 U/L (4-49); AST 87 U/L (17-59); African American GFR (CKD) >90 (>60 ml/min/1.73 sqM); Albumin 4.2 g/dL (3.5-5.0); Alkaline Phosphatase 97 U/L (38-126); Anion Gap 12 mmol/L; Blood Urea Nitrogen 10 mg/dL (9-20); Carbon Dioxide 27 mmol/L (22-30); Chloride 100 mmol/L (98-107); Glucose 123 mg/dL (74-99); Magnesium 1.5 mg/dL (1.6-2.3); Non-African American GFR(CKD) >90 (>60 ml/min/1.73 sqM); Potassium 4.2 mmol/L (3.5-5.1); Sodium 139 mmol/L (137-145); Total Bilirubin 0.3 mg/dL (0.2-1.3)
[2021-02-18 19:11] LABS: INR 0.9 (<1.2); Partial Thromboplastin Time 23.8 sec (22.0-30.0); Prothrombin Time 9.9 sec (9.0-12.0)
--- NOTE | 2021-02-18 19:32 | XR ---
EXAMINATION TYPE: XR chest 1V portable DATE OF EXAM: 02/18/2021 COMPARISON: 12/25/2020 HISTORY: Chest pain. TECHNIQUE: Single frontal view of the chest is obtained. FINDINGS: Stable mild elevation of the left hemidiaphragm with chronic mild opacity. There is no new focal opacity, pleural effusion, or pneumothorax seen. The cardiac silhouette size is within normal limits. The osseous structures are stable. Chronic right rib fractures with chest wall deformity s een. IMPRESSION: No acute process.
[2021-02-18] MEDS ORDERED: NITROGLYCERIN OINT 1 INCH/GM PACKET TOPICAL STA (19:33)
[2021-02-18] MEDS ORDERED: NITROGLYCERIN SL TABS 0.4 MG TAB SUBLINGUAL PRN (19:43)
[2021-02-18] MEDS ORDERED: LORazepam 2 MG/ML INJ IV PRN ×2 (19:46)
[2021-02-18] MEDS ORDERED: THIAMINE 100 MG/ML 2 ML VIAL IM STA (19:46)
[2021-02-18] MEDS: MAGNESIUM SULFATE-D5W PMX 1 GM in DEXTROSE/WATER 1 100ML.BAG IVPB SCH ×2 (20:07→21:39)
[2021-02-18] MEDS ORDERED: traZODone HCL 50 MG TAB PO PRN (21:47)
[2021-02-18] MEDS ORDERED: ACETAMINOPHEN TAB 325 MG TAB PO PRN ×2 (21:47→21:50)
[2021-02-18] MEDS ORDERED: TRIMETHOBENZAMIDE 100 MG/ML 2 ML VIAL IM PRN (21:47)
[2021-02-18] MEDS ORDERED: IPRATROPIUM-ALBUTEROL 3 ML NEB INHALATION PRN (21:50)
[2021-02-18] MEDS ORDERED: ONDANSETRON 4 MG/2 ML VIAL IVP PRN (21:50)
[2021-02-18] MEDS: PANTOPRAZOLE 40 MG TABLET PO SCH (22:00)
[2021-02-19] MEDS ORDERED: HEPARIN SODIUM 1,000 UN/ML (10ML VL) IV PRN (01:23)
[2021-02-19] MEDS: PANTOPRAZOLE 40 MG TABLET PO SCH (06:39)
[2021-02-19] MEDS: THIAMINE 100 MG TAB PO SCH ×3 (06:39→17:22)
[2021-02-19] MEDS: METOPROLOL TARTRATE 25 MG TAB PO SCH ×2 (08:35→20:17)
[2021-02-19] MEDS: MULTIVITAMINS, THERA 1 EACH TAB PO SCH (08:35)
[2021-02-19] MEDS: ASPIRIN 325 MG TAB PO SCH (08:35)
[2021-02-19] MEDS: TICAGRELOR 90 MG TAB PO SCH ×2 (08:35→20:17)
--- NOTE | 2021-02-19 11:56 | P.CRDCN ---
History of Present Illness History of present illness: HISTORY OF PRESENTING ILLNESS Patient is a pleasant 55-year-old male with history of tobacco abuse, alcohol abuse, coronary artery disease status post PCI of proximal LAD 12/25/2020, ischemic cardiomyopathy with ejection fraction 40-45% who presents secondary to chest pain. 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 He was found to have 100% RCA stenosis with left to light collaterals, mild 30% circumflex stenosis and a 100% stenosis of the mid LAD. Patient underwent stenting of the mid LAD however there was more distal LAD occlusion which was treated medically. Patient had done fairly well outpatient however started drinking again. He says he has been compliant with his medications. He therefore wanted to detox and presented to [facility] yesterday morning. He states he had neck is me dications in the morning and when he was at [facility] he started feeling chest pressure and pain similar to his prior CO. He states he had associated diaphoresis and mild shortness breath. He was given nitroglycerin in the EMS and an emergency department. Patient's EKG showed Q waves in V1 through V3 with minimal [address] elevation in V2 consistent with old CO. Patient's chest pain was improved with nitroglycerin and therefore treated as non-STEMI. Blood work showed fairly flat troponin 0.057, 0.056, 0.074. He denies any chest pain right now. He does have mildly elevated liver enzymes 87 AST and 57 ALT. REVIEW OF SYSTEMS At the time of my exam: CONSTITUTIONAL: Denies fever or chills. CARDIOVASCULAR: +chest pain, +shortness of breath, no orthopnea, PND or palpitations. RESPIRATORY: Denies cough. GASTROINTESTINAL: Denies abdominal pain, diarrhea, constipation, nausea or vomiting. MUSCULOSKELETAL: Denies myalgias. NEUROLOGIC: Denies numbness, tingling or weakness. ENDOCRINE: Denies fatigue, weight change, polydipsia or polyurina. GENITOURINARY: Denies burning, hematuria or urgency with micturation. HEMATOLOGIC: Denies history of anemia or bleeding. PHYSICAL EXAMINATION Vital signs reviewed. CONSTITUTIONAL: No apparent distress. HEENT: Head is normocephalic. Pupils are equal, round. Sclerae anicteric. Mucous membranes of the mouth are moist. No JVD. No carotid bruit. CHEST EXAMINATION: Lungs are clear to auscultation. No chest wall tenderness is noted on palpation or with deep breathing. HEART EXAMINATION: Regular rate and rhythm. S1, S2 heard. No murmurs, gallops or rub. ABDOMEN: Soft, nontender. Positive bowel sounds. EXTREMITIES: 2+ peripheral pulses, no lower extremity edema and no calf tenderness. NEUROLOGIC EXAMINATION: Patient is awake, alert and oriented x3. ASSESSMENT 1. Non-STEMI. May be type II mechanism from withdrawals with missing medic ations versus type I mechanism of a new CO. EKG does show Q waves anteriorly from prior CO with minimal residual ST elevation V2. Currently chest pain-free 2. Coronary artery disease status post PCI of mid LAD with residual distal LAD CTL as well as RCA SYSTEMS PROJECT MANAGER with collaterals. 3. Alcohol abuse, undergoing detox 4. Mild ischemic cardiomyopathy ejection fraction 40-45% 5. Tobacco abuse 6. Hypertension 7. Chronic systolic heart failure PLAN Patient's EKG is concerning for old anterior CO and unclear if there is viability of the LAD territory. He is however still having chest pain and may consider repeat heart catheterization if there has been some change in ejection fraction. Otherwise his presentation may be a result of detox and missing his medications. Continue with aggressive medical regimen. If repeat heart catheterization performed, unclear interventional targets if no new stenosis identified however may consider SYSTEMS PROJECT MANAGER procedure at some point if he continues to have angina. Unfortunately heart catheterization was somewhat more difficult with severe tortuosity. Continue medical therapy with heparin drip for 48 hours at this time and check ejection fraction. If ejection fraction low may consider heart catheterization on Sunday. Past Medical History Past Medical History: COPD, GERD/Reflux, GI Bleed, Hypertension, Musculoskeletal Disorder, Pneumonia, Renal Disease, Skin Disorder Additional Past Medical History / Comment(s): ETOH abuse with delirium tremors, lower GI bleed, IBS, chronic iron deficiency anemia, hypomagnesemia, hyperbilirubinemia, anorexia, vertigo, nephrolithiasis-passed stone on his own, chronic low back/cervical pain, DDD, kyphosis, scoliosis, coccyx pressure ulcer pt states is mostly healed History of Any Multi-Drug Resistant Organisms: None Reported Past Surgical History: Bariatric Surgery, Hernia Repair, Orthopedic Surgery, Tonsillectomy Additional Past Surgical History / Comment(s): Right inner Forearm-metal plate, gastric bypass, incisional hernia surgery x2, EGDs, colonoscopies. Past Anesthesia/Blood Transfusion Reactions: No Reported Reaction Past Psychological History: Anxiety, Bipolar, Depression, PTSD Additional Psychological History / Comment(s): Pt resides in a friends home where he rents a room. He uses the bus system to get to appointments. Pt states his depression is stable at this time, no thoughts or plans of suicide. He has had multiple mental health unit admissions. He has ETOH abus. He goes to [facility]. He has a payee. Smoking Status: Current every day smoker Past Alcohol Use History: Abuse, Heavy Additional Past Alcohol Use History / Comment(s): . Past Drug Use History: Cocaine, Heroin, Marijuana Additional Drug Use History / Comment(s): . - Past Family History Mother Family Medical History: Hypertension Additional Family Medical History / Comment(s): Lupus. Mother is living. Father Family Medical History: Liver Disease Additional Family Medical History / Comment(s): ETOH abuse. of cirrhosis complications. Medications and Allergies Home Medications Medication Instructions Recorded Confirmed Type Acetaminophen [Tylenol] 650 mg PO Q4H PRN 02/18/21 02/18/21 History Calcium/Magnesium 1 - 2 tab PO Q8H PRN 02/18/21 02/18/21 History Chlorpheniramine Maleate 4 mg PO Q4H PRN 02/18/21 02/18/21 History [Chlor-Trimeton] Ibuprofen [Motrin] 600 mg PO Q6H PRN 02/18/21 02/18/21 History Metoprolol Tartrate [Lopressor] 25 mg PO BID@06,17302/18/21 02/18/21 History Multivitamins, Thera [Multivitamin 1 tab PO DAILY@0602/18/21 02/18/21 History (formulary)] Thiamine [Vitamin B-1] 100 mg PO DAILY@0600 02/18/21 02/18/21 History Ticagrelor [Brilinta] 90 mg PO BID@0600,172902/18/21 02/18/21 History Tigan 200mg 200 mg IM Q6H PRN 02/18/21 02/18/21 History Tigan 300mg Suppository 300 mg RECTAL Q6H PRN 02/18/21 02/18/21 History Trimethobenzamide [Tigan] 300 mg PO Q6H PRN 02/18/21 02/18/21 History Zofran 2mg/Ml 4 mg IM Q6H PRN 02/18/21 02/18/21 History lisinopriL [Zestril] 2.5 mg PO DAILY@0600 02/18/21 02/18/21 History ondansetron HCL [Zofran] 8 mg PO Q6H PRN 02/18/21 02/18/21 History traZODone HCL 50 - 150 mg PO HS PRN 02/18/21 02/18/21 History Allergies Allergy/AdvReac Type Severity Reaction Status Date / Time No Known Allergies Allergy Verified 02/18/21 19:04 Physical Exam Vitals: Vital Signs Temp Pulse Pulse Resp BP BP Pulse Ox 02/19/21 08:00 98.4 F 80 18 143/87 97 02/19/21 04:00 67 18 111/72 95 02/19/21 00:00 88 18 120/80 95 02/18/21 21:30 98.4 F 84 18 123/77 97 02/18/21 20:55 84 18 108/86 97 02/18/21 20:00 80 18 108/83 98 02/18/21 19:18 89 18 102/70 97 02/18/21 18:51 96 18 90/61 98 02/18/21 18:12 85 02/18/21 18:05 98.4 F 87 18 135/93 100 Intake and Output 02/18/21 02/19/21 02/19/21 22:59 06:59 14:59 Intake Total 1440 62.381 Output Total 300 Balance 1440 62.381 -300 Intake: Intake, IV Titration 62.381 Amount Heparin Sod,Pork in 0.45% 62.381 NaCl 25,000 unit In 0.45 % NaCl 1 250ml.bag @ 12 UNITS/KG/HR 9.798 mls/hr IV .Q24H [facility] Rx#: [id number] Oral 1440 Output: Urine 300 Other: Voiding Method Urinal Urinal # Voids 1 Weight 81.647 kg 80.1 kg Results 02/18/21 18:47 02/18/21 18:47 Cardiac Enzymes 02/18/21 02/18/21 02/18/21 Range/Units 18:47 18:47 20:09 AST 87 H (17-59) U/L Troponin I 0.057 H* 0.056 H* (0.000-0.034) ng/mL 02/19/21 Range/Units 00:30 AST (17-59) U/L Troponin I 0.074 H* (0.000-0.034) ng/mL Coagulation 02/18/21 02/19/21 02/19/21 Range/Units 18:47 00:30 07:52 PT 9.9 (9.0-12.0) sec APTT 23.8 36.1 H 50.3 H (22.0-30.0) sec CBC 02/18/21 Range/Units 18:47 WBC 9.2 (3.8-10.6) k/uL RBC 4.06 L (4.30-5.90) m/uL Hgb 13.3 (13.0-17.5) gm/dL Hct 39.1 (39.0-53.0) % Plt Count 245 (150-450) k/uL Comprehensive Metabolic Panel 02/18/21 Range/Units 18:47 Sodium 139 (137-145) mmol/L Potassium 4.2 (3.5-5.1) mmol/L Chloride 100 (98-107) mmol/L Carbon Dioxide 27 (22-30) mmol/L BUN 10 (9-20) mg/dL Creatinine 0.63 L (0.66-1.25) mg/dL Glucose 123 H (74-99) mg/dL Calcium 9.0 (8.4-10.2) mg/dL AST 87 H (17-59) U/L ALT 57 H (4-49) U/L Alkaline Phosphatase 97 (38-126) U/L Total Protein 7.0 (6.3-8.2) g/dL Albumin 4.2 (3.5-5.0) g/dL Current Medications Generic Name Dose Route Start Last Admin Trade Name Freq PRN Reason Stop Dose Admin Acetaminophen 650 mg 02/18/21 21:47 Acetaminophen Tab 325 Mg Tab PO Q4H PRN Fever and/ or Pain Acetaminophen 650 mg 02/18/21 21:50 Acetaminophen Tab 325 Mg Tab PO Q6HR PRN Fever and/ or Pain Albuterol/Ipratropium 3 ml 02/18/21 21:50 Ipratropium-Albuterol 3 Ml Neb INHALATION RT-QID PRN sob Aspirin 325 mg 02/19/21 09:00 02/19/21 08:35 Aspirin 325 Mg Tab PO 325 mg DAILY [facility]OLA Administration Heparin Sodium (Porcine) 0 unit 02/19/21 01:23 02/19/21 01:37 Heparin Sodium 1,000 Un/Ml (10ml Vl) IV 2,000 unit PER PROTOCOL PRN Administration Low PTT Protocol Heparin Sodium/Sodium Chloride 250 mls @ 9.798 mls/hr 02/18/21 18:45 02/19/21 01:16 25,000 unit/ Sodium Chloride IV 14 units/kg/hr .Q24H [facility] 11.431 mls/hr Titration Protocol 12 UNITS/KG/HR Lisinopril 2.5 mg 02/19/21 09:00 02/19/21 08:35 Lisinopril 2.5 Mg Tab PO 2.5 mg DAILY ROLA Administration Lorazepam 1 mg 02/18/21 19:46 Lorazepam 2 Mg/Ml Inj IV Q2HR PRN CIWA 8 or 9 Lorazepam 1 mg 02/18/21 19:46 02/18/21 21:38 Lorazepam 2 Mg/Ml Inj IV 1 mg Q1HR PRN Administration CIWA 10 to 15 Lorazepam 2 mg 02/18/21 19:46 Lorazepam 2 Mg/Ml Inj IV 02/20/21 19:46 Q10M PRN CIWA 16 or higher Metoprolol Tartrate 25 mg 02/19/21 09:00 02/19/21 08:35 Metoprolol Tartrate 25 Mg Tab PO 25 mg BID ROLA Administration Multivitamins 1 each 02/19/21 09:00 02/19/21 08:35 Multivitamins, Thera 1 Each Tab PO 1 each DAILY ROLA Administration Nitroglycerin 0.4 mg 02/18/21 19:43 Nitroglycerin Sl Tabs 0.4 Mg Tab SUBLINGUAL Q5M PRN Chest Pain Ondansetron HCl 4 mg 02/18/21 21:50 Ondansetron 4 Mg/2 Ml Vial IVP Q6HR PRN Nausea And Vomiting Pantoprazole Sodium 40 mg 02/18/21 22:00 02/19/21 06:39 Pantoprazole 40 Mg Tablet PO 40 mg [id number] ROLA Administration Thiamine HCl 100 mg 02/19/21 07:30 02/19/21 06:39 Thiamine 100 Mg Tab PO 100 mg BID-W/MEALS ROLA Administration Thiamine HCl 100 mg 02/19/21 09:00 02/19/21 08:35 Thiamine 100 Mg Tab PO 100 mg DAILY ROLA Administration Ticagrelor 90 mg 02/19/21 09:00 02/19/21 08:35 Ticagrelor 90 Mg Tab PO 90 mg BID ROLA Administration Trazodone HCl 50 mg 02/18/21 21:47 Trazodone Hcl 50 Mg Tab PO HS PRN Insomnia Trimethobenzamide HCl 200 mg 02/18/21 21:47 Trimethobenzamide 100 Mg/Ml 2 Ml Vial IM Q6H PRN Nausea And Vomiting Intake and Output 02/18/21 02/19/21 02/19/21 22:59 06:59 14:59 Intake Total 1440 62.381 Output Total 300 Balance 1440 62.381 -300 Intake: Intake, IV Titration 62.381 Amount Heparin Sod,Pork in 0.45% 62.381 NaCl 25,000 unit In 0.45 % NaCl 1 250ml.bag @ 12 UNITS/KG/HR 9.798 mls/hr IV .Q24H [facility] Rx#: [id number] Oral 1440 Output: Urine 300 Other: Voiding Method Urinal Urinal # Voids 1 Weight 81.647 kg 80.1 kg 02/18/21 18:47 02/18/21 18:47
[2021-02-19] MEDS: LORazepam 2 MG/ML INJ IV PRN ×3 (11:57→20:25)
[2021-02-19 12:59] LABS: Chol/HDL Ratio 2.1; LDL Cholesterol,Calculated 54.2 mg/dL (0.0-131.0); VLDL Calculation 13.8 mg/dL (5.00-40.00)
--- NOTE | 2021-02-19 13:17 | ECHOF ---
Referral Reason:re: LV function MEASUREMENTS -------- HEIGHT: 172.7 cm WEIGHT: 79.8 kg BP: 145/91 FINDINGS -------- Sinus rhythm. This was a technically difficult study with suboptimal apical views. Limited Study Overall left ventricular systolic function is mildly impaired with, an EF between 45 - 50 %. Apical anterior LV wall motion is hypokinetic. Apical septum LV wall motion is hypokinetic. 5 ml of Lumason was utilized for enhancement of images. There is no pericardial effusion. CONCLUSIONS -------- 1. Limited Study 2. Overall left ventricular systolic function is mildly impaired with, an EF between 45 - 50 %. 3. Apical anterior LV wall motion is hypokinetic. 4. Apical septum LV wall motion is hypokinetic. 5. 5 ml of Lumason was utilized for enhancement of images. 6. There is no pericardial effusion. COUNTING MACHINE OPERATOR: Nikole Lopez RDCS
--- NOTE | 2021-02-19 13:42 | P.HPIM ---
History of Present Illness H&P Date: 02/19/21 History of present illness 55 years old male with past medical history of coronary artery disease s/p PCI of proximal LAD 12/25/2020, ischemic cardiomyopathy with ejection fraction 40 to 45%, history of alcohol abuse, tobacco abuse, history of gastric bypass, history of COPD, GERD, history of GI bleed, hypertension, chronic kidney disease, history of nephrolithiasis, chronic low back and cervical pain comes in with chest pain that was central, radiating to his neck and his arms. Patient reported similar to his previous presentation and decided to come to the ER. Patient is currently depressed and has been drinking heavily for the past 1 month since his old DC. He decided to detox and went to [facility] yesterday morning. His last drink was at 9 AM in the morning. Patient while patient started to detox he started having tremors, hallucination, delusions and the chest pressure. He feels increasingly weak in his lower extremity and he feels his legs are shaky. EKG done in the ER suggested Q waves in V1 through V3 with minimal [address] elevation in V2 consistent with old DC. Patient's chest pain was treated with nitroglycerin and treated as NSTEMI. Cardiology was consulted patient initiated on heparin drip. Labs were reviewed patient has a troponin 0.0 [phone]. LDL 54. INR 0.9 magnesium 1.5 AST 87 ALT 57 alkaline phosphatase 97 calcium 9 glucose 123 creatinine 0.63 WBC of 9.2 hemoglobin 13.3 platelet 245 Review of system Constitutional: No fevers, chills and weight loss. tremorous HENT: Negative. Negative for hearing loss. Eyes: Negative. Respiratory: No cough, shortness of breath or hemoptysis. No sputum production and wheezing. Cardiovascular: endorses chest pain, denies palpitations, orthopnea, claudication and PND. No swelling of feet Gastrointestinal: Negative for nausea, vomiting and melena. Genitourinary: Negative for urgency and frequency. Musculoskeletal: Negative for myalgias and neck pain. Skin: Negative. Negative for itching and rash. Neurological: Negative for headaches. lower ext shakiness and weakness Psychiatric/Behavioral: Negative for depression SOCIAL HISTORY Patient is a smoker of one and a half to 2 packs a day for 43 years. He has history of alcohol abuse drinking 3/5 of vodka per day but states his last alcohol intake was 3 months ago. He uses marijuana occasionally. He does have history of IV drug abuse but has been clean for 4 1/2 years. He is single and lives in an apartment. FAMILY HISTORY Mother is alive at age 79 with history of coronary artery disease with 3 vessel CABG. Father at age 53 from cirrhosis of the liver. Patient has 1 brother that has no major medical problems that the patient is aware of. Patient has a daughter that is 26 years of age and a son that is 7 years of age with no major medical problems. Physical exam CONSTITUTIONAL: Patient appears comfortable in no apparent distress. NECK: No JVD or lymph node enlargement. HEET: Unremarkable, conjunctivae/corneas clear. Sclera anicteric. Oral cavity no lesions. RESPIRATORY: Clear to auscultation bilaterally. CARDIOVASCULAR: Regular rate and rhythm. GASTROINTESTINAL: soft, non tender, no organomegaly. Bowel sounds are positive. PSYCH: Denies any depression or anxiety. Tremors and shaky on extension of the arms SKIN: No rashes NEUROLOGICAL: alert, oriented x 3, no focal deficits noted. Upper extremity tremors on extension of his arms. Unstable gait due to shakiness and ataxia Assessment and plan 1. Acute substernal chest pain likely NSTEMI with EKG suggestive of previous DC findings. Continue heparin for 48 hours stop echocardiogram obtained. Possible cardiac cath on Sunday #2 coronary artery disease recent cardiac cath suggestive of 100% RCA stenosis with [id number] collaterals mild 30% circumflex stenosis 100% stenosis of the mid LAD underwent stenting of mid LAD distal LAD occlusion was treated medically. Continue metoprolol 25 twice daily continue Brilinta 90 twice daily continue aspirin 325 mg daily #3 congestive heart failure with last ejection fraction 40 to 45%. Continue daily weights and ELVIN monitoring repeat echocardiogram ordered continue lisinopril 2.5 mg daily #4 COPD without acute exacerbation continue breathing treatments as needed with DuoNeb's every 4-6 hours #5 alcohol abuse currently detoxing. [facility] protocol initiated. Patient is improving on delirium and hallucination continues to have shaking of upper and lower extremity leading to gait instability. Is currently under the care of [facility]hab continue thiamine 100 mg daily #6 tobacco abuse smoking cessation discussed with the patient. Nicotine patch offered #7 Bipolar disorder continue trazodone 50 mg as needed #8 history of gastric bypass with reflux continue pantoprazole 40 mg daily #9 chronic pain secondary to degenerative disc disease, stable #10 history of IBS, stable #11 hypertension continue lisinopril, metoprolol #12 DVT prophylaxis on heparin drip #13 GI prophylaxis on pantoprazole 40 mg daily #14 CODE STATUS full code #15 disposition patient need at least 1-2 inpatient night for stabilization Past Medical History Past Medical History: COPD, GERD/Reflux, GI Bleed, Hypertension, Musculoskeletal Disorder, Pneumonia, Renal Disease, Skin Disorder Additional Past Medical History / Comment(s): ETOH abuse with delirium tremors, lower GI bleed, IBS, chronic iron deficiency anemia, hypomagnesemia, hyperbilirubinemia, anorexia, vertigo, nephrolithiasis-passed stone on his own, chronic low back/cervical pain, DDD, kyphosis, scoliosis, coccyx pressure ulcer pt states is mostly healed History of Any Multi-Drug Resistant Organisms: None Reported Past Surgical History: Bariatric Surgery, Hernia Repair, Orthopedic Surgery, Tonsillectomy Additional Past Surgical History / Comment(s): Right inner Forearm-metal plate, gastric bypass, incisional hernia surgery x2, EGDs, colonoscopies. Past Anesthesia/Blood Transfusion Reactions: No Reported Reaction Past Psychological History: Anxiety, Bipolar, Depression, PTSD Additional Psychological History / Comment(s): Pt resides in a friends home where he rents a room. He uses the bus system to get to appointments. Pt states his depression is stable at this time, no thoughts or plans of suicide. He has had multiple mental health unit admissions. He has ETOH abus. He goes to [facility]. He has a payee. Smoking Status: Current every day smoker Past Alcohol Use History: Abuse, Heavy Additional Past Alcohol Use History / Comment(s): . Past Drug Use History: Cocaine, Heroin, Marijuana Additional Drug Use History / Comment(s): . - Past Family History Mother Family Medical History: Hypertension Additional Family Medical History / Comment(s): Lupus. Mother is living. Father Family Medical History: Liver Disease Additional Family Medical History / Comment(s): ETOH abuse. of cirrhosis complications. Medications and Allergies Home Medications Medication Instructions Recorded Confirmed Type Acetaminophen [Tylenol] 650 mg PO Q4H PRN 02/18/21 02/18/21 History Calcium/Magnesium 1 - 2 tab PO Q8H PRN 02/18/21 02/18/21 History Chlorpheniramine Maleate 4 mg PO Q4H PRN 02/18/21 02/18/21 History [Chlor-Trimeton] Ibuprofen [Motrin] 600 mg PO Q6H PRN 02/18/21 02/18/21 History Metoprolol Tartrate [Lopressor] 25 mg PO BID@0600,1730 02/18/21 02/18/21 History Multivitamins, Thera [Multivitamin 1 tab PO DAILY@59902/18/21 02/18/21 History (formulary)] Thiamine [Vitamin B-1] 100 mg PO DAILY@0600 02/18/21 02/18/21 History Ticagrelor [Brilinta] 90 mg PO BID@0600,1730 02/18/21 02/18/21 History Tigan 200mg 200 mg IM Q6H PRN 02/18/21 02/18/21 History Tigan 300mg Suppository 300 mg RECTAL Q6H PRN 02/18/21 02/18/21 History Trimethobenzamide [Tigan] 300 mg PO Q6H PRN 02/18/21 02/18/21 History Zofran 2mg/Ml 4 mg IM Q6H PRN 02/18/21 02/18/21 History lisinopriL [Zestril] 2.5 mg PO DAILY@59902/18/21 02/18/21 History ondansetron HCL [Zofran] 8 mg PO Q6H PRN 02/18/21 02/18/21 History traZODone HCL 50 - 150 mg PO HS PRN 02/18/21 02/18/21 History Allergies Allergy/AdvReac Type Severity Reaction Status Date / Time No Known Allergies Allergy Verified 02/18/21 19:04 Physical Exam Vitals: Vital Signs Temp Pulse Pulse Resp BP BP Pulse Ox 02/19/21 08:00 98.4 F 80 18 143/87 97 02/19/21 04:00 67 18 111/72 95 02/19/21 00:00 88 18 120/80 95 02/18/21 21:30 98.4 F 84 18 123/77 97 02/18/21 20:55 84 18 108/86 97 02/18/21 20:00 80 18 108/83 98 02/18/21 19:18 89 18 102/70 97 02/18/21 18:51 96 18 90/61 98 02/18/21 18:12 85 02/18/21 18:05 98.4 F 87 18 135/93 100 Intake and Output 02/18/21 02/19/21 02/19/21 22:59 06:59 14:59 Intake Total 1440 62.381 Balance 1440 62.381 Intake: Intake, IV Titration 62.381 Amount Heparin Sod,Pork in 0.45% 62.381 NaCl 25,000 unit In 0.45 % NaCl 1 250ml.bag @ 12 UNITS/KG/HR 9.798 mls/hr IV .Q24H [facility] Rx#: [id number] Oral 1440 Other: Voiding Method Urinal Urinal # Voids 1 Weight 81.647 kg 80.1 kg Results CBC & Chem 7: 02/18/21 18:47 02/18/21 18:47 Labs: Abnormal Lab Results - Last 24 Hours (Table) 02/18/21 02/18/21 02/18/21 Range/Units 18:47 18:47 18:47 RBC 4.06 L (4.30-5.90) m/uL RDW 15.7 H (11.5-15.5) % Neutrophils # 7.9 H (1.3-7.7) k/uL Lymphocytes # 0.6 L (1.0-4.8) k/uL APTT (22.0-30.0) sec Creatinine 0.63 L (0.66-1.25) mg/dL Glucose 123 H (74-99) mg/dL Magnesium 1.5 L (1.6-2.3) mg/dL AST 87 H (17-59) U/L ALT 57 H (4-49) U/L Troponin I 0.057 H* (0.000-0.034) ng/mL 02/18/21 02/19/21 02/19/21 Range/Units 20:09 00:30 00:30 RBC (4.30-5.90) m/uL RDW (11.5-15.5) % Neutrophils # (1.3-7.7) k/uL Lymphocytes # (1.0-4.8) k/uL APTT 36.1 H (22.0-30.0) sec Creatinine (0.66-1.25) mg/dL Glucose (74-99) mg/dL Magnesium (1.6-2.3) mg/dL AST (17-59) U/L ALT (4-49) U/L Troponin I 0.056 H* 0.074 H* (0.000-0.034) ng/mL 02/19/21 Range/Units 07:52 RBC (4.30-5.90) m/uL RDW (11.5-15.5) % Neutrophils # (1.3-7.7) k/uL Lymphocytes # (1.0-4.8) k/uL APTT 50.3 H (22.0-30.0) sec Creatinine (0.66-1.25) mg/dL Glucose (74-99) mg/dL Magnesium (1.6-2.3) mg/dL AST (17-59) U/L ALT (4-49) U/L Troponin I (0.000-0.034) ng/mL Thrombosis Risk Factor Assmnt - DVT/VTE Prophylaxis DVT/VTE Prophylaxis: Pharmacologic Prophylaxis ordered
[2021-02-19] MEDS: HEPARIN SOD,PORK IN 0.45% NACL 25,000 UNIT in 0.45% NACL 1 250ML.BAG IV SCH (17:23)
[2021-02-20] MEDS: THIAMINE 100 MG TAB PO SCH ×2 (06:07→07:50)
[2021-02-20] MEDS: PANTOPRAZOLE 40 MG TABLET PO SCH (06:07)
[2021-02-20 07:49] VITALS: TEMP 97.5
[2021-02-20] MEDS: ASPIRIN 325 MG TAB PO SCH (07:50)
[2021-02-20] MEDS: MULTIVITAMINS, THERA 1 EACH TAB PO SCH (07:50)
[2021-02-20] MEDS: METOPROLOL TARTRATE 25 MG TAB PO SCH (07:50)
[2021-02-20] MEDS: TICAGRELOR 90 MG TAB PO SCH (07:50)
[2021-02-20 11:26] LABS: ALT 34 U/L (4-49); AST 51 U/L (17-59); African American GFR (CKD) >90 (>60 ml/min/1.73 sqM); Albumin 3.5 g/dL (3.5-5.0); Alkaline Phosphatase 111 U/L (38-126); Anion Gap 8 mmol/L; Blood Urea Nitrogen 12 mg/dL (9-20); C Reactive Protein <0.5 mg/dL (<1.0); Calcium 8.6 mg/dL (8.4-10.2); Carbon Dioxide 24 mmol/L (22-30); Chloride 104 mmol/L (98-107); Glucose 149 mg/dL (74-99); Non-African American GFR(CKD) >90 (>60 ml/min/1.73 sqM); Potassium 3.7 mmol/L (3.5-5.1); Sodium 136 mmol/L (137-145); Total Bilirubin 1.3 mg/dL (0.2-1.3); Total Protein 6.3 g/dL (6.3-8.2)
[2021-02-20 11:58] VITALS: BP 119/78; PULSE 67; RESP 16
--- NOTE | 2021-02-20 12:10 | P.PN ---
Subjective HISTORY OF PRESENTING ILLNESS Patient is a pleasant 55-year-old male with history of tobacco abuse, alcohol abuse, coronary artery disease status post PCI of proximal LAD 12/25/2020, ischemic cardiomyopathy with ejection fraction 40-45% who presents secondary to chest pain. Patient initially presented 12/25/2020 with EKG showing Q waves V1 and V2 with dynamic ST changes and therefore was taken [facility]. He was found to have 100% RCA stenosis with left to light collaterals, mild 30% circumflex stenosis and a 100% stenosis of the mid LAD. Patient underwent stenting of the mid LAD however there was more distal LAD occlusion which was treated medically. Patient had done fairly well outpatient however started drinking again. He says he has been compliant with his medications. He therefore wanted to detox and presented to [facility] yesterday morning. He states he had neck is medications in the morning and when he was at [facility] he started feeling chest pressure and pain similar to his prior [place]. He states he had associated diaphoresis and mild shortness breath. He was given nitroglycerin in the EMS and an emergency department. Patient's EKG showed Q waves in V1 through V3 with minimal [address] elevation in V2 consistent with old [place]. Patient's chest pain was improved with nitroglycerin and therefore treated as non-STEMI. Blood work showed fairly flat troponin 0.057, 0.056, 0.074. He denies any chest pain right now. He does have mildly elevated liver enzymes 87 AST and 57 ALT. 02/20 Patient seen and examined. Patient denies any further chest pain since being admitted. Echocardiogram repeated yesterday with mildly improved ejection fraction of 45-50%. He denies any shortness breath and has been walking the mar[place]. He states his withdrawal symptoms have improved and only received Ativan once this morning. He believes that a lot of this was related to his detoxing and not taking his medications. We discussed possible repeat heart catheterization, stress testing or medical therapy and patient would prefer medical therapy which is reasonable. REVIEW OF SYSTEMS At the time of my exam: CONSTITUTIONAL: Denies fever or chills. CARDIOVASCULAR: +chest pain, +shortness of breath, no orthopnea, PND or palpita tions. RESPIRATORY: Denies cough. GASTROINTESTINAL: Denies abdominal pain, diarrhea, constipation, nausea or vomiting. MUSCULOSKELETAL: Denies myalgias. NEUROLOGIC: Denies numbness, tingling or weakness. ENDOCRINE: Denies fatigue, weight change, polydipsia or polyurina. GENITOURINARY: Denies burning, hematuria or urgency with micturation. HEMATOLOGIC: Denies history of anemia or bleeding. PHYSICAL EXAMINATION Vital signs reviewed. CONSTITUTIONAL: No apparent distress. HEENT: Head is normocephalic. Pupils are equal, round. Sclerae anicteric. Mucous membranes of the mouth are moist. No JVD. No carotid bruit. CHEST EXAMINATION: Lungs are clear to auscultation. No chest wall tenderness is noted on palpation or with deep breathing. HEART EXAMINATION: Regular rate and rhythm. S1, S2 heard. No murmurs, gallops or rub. ABDOMEN: Soft, nontender. Positive bowel sounds. EXTREMITIES: 2+ peripheral pulses, no lower extremity edema and no calf tenderness. NEUROLOGIC EXAMINATION: Patient is awake, alert and oriented x3. ASSESSMENT 1. Non-STEMI. May be type II mechanism from withdrawals with missing medications versus type I mechanism of a new [place]. EKG does show Q waves anteriorly from prior [place] with minimal residual ST elevation V2. Currently chest pain-free 2. Coronary artery disease status post PCI of mid LAD with residual distal LAD CTL as well as RCA PHARMACY RESOURCE TECH with collaterals. 3. Alcohol abuse, undergoing detox 4. Mild ischemic cardiomyopathy ejection fraction 45-50% 5. Tobacco abuse 6. Hypertension 7. Chronic systolic heart failure PLAN Echocardiogram with mild improvement in ejection fraction. Patient's main presentation appears related to missing his medications in detox. We discussed possible repeat heart catheterization, stress testing or medical therapy and mercedes oneal would prefer medical therapy. No current angina and he has done well since been placed back on his medications. We will increase his metoprolol to 50 mg twice a day and follow-up in office in 1 week. Patient stable for discharge home from a cardiac standpoint. Objective - Vital Signs Vital signs: Vital Signs Temp 97.5 F L 02/20/21 07:47 Pulse 67 02/20/21 11:57 Resp 16 02/20/21 11:57 BP 119/78 02/20/21 11:57 Pulse Ox 97 02/20/21 11:57 Intake & Output 02/19/21 02/20/21 02/20/21 18:59 06:59 18:59 Intake Total 664.23 972.612 Output Total 300 1420 Balance 364.23 -1420 972.612 Weight 81.3 kg Intake: Intake, IV Titration 184.23 192.612 Amount Heparin Sod,Pork in 0.45% 184.23 192.612 NaCl 25,000 unit In 0.45 % NaCl 1 250ml.bag @ 12 UNITS/KG/HR 9.798 mls/hr IV .Q24H [facility] Rx#: [id number] Oral 480 780 Output: Urine 300 1420 Other: Voiding Method Urinal Urinal Urinal # Voids 1 1 - Labs CBC & Chem 7: 02/18/21 18:47 02/20/21 08:03 Labs: Abnormal Lab Results - Last 24 Hours (Table) 02/19/21 02/20/21 02/20/21 Range/Units 07:52 08:03 08:03 APTT 38.8 H (22.0-30.0) sec Sodium 136 L (137-145) mmol/L Creatinine 0.62 L (0.66-1.25) mg/dL Glucose 149 H (74-99) mg/dL HDL Cholesterol 62.0 H (40.0-60.0) mg/dL
--- NOTE | 2021-02-20 14:18 | P.DS ---
Providers Date of admission: 02/18/21 19:44 Attending physician: Fang Tavares Consults: 02/18/21 19:34 Consult Physician Routine Consulting Provider: Deondre Duenas Consult Reason/Comments: nstemi, ACS Do you want consulting provider notified?: Already Contacted Primary care physician: [facility] Course: 55 years old male with past medical history of coronary artery disease s/p PCI of proximal LAD 12/25/2020, ischemic cardiomyopathy with ejection fraction 40 to 45%, history of alcohol abuse, tobacco abuse, history of gastric bypass, history of COPD, GERD, history of GI bleed, hypertension, chronic kidney disease, history of nephrolithiasis, chronic low back and cervical pain comes in with chest pain that was central, radiating to his neck and his arms. Patient reported similar to his previous presentation and decided to come to the ER. Patient is currently depressed and has been drinking heavily for the past 1 month since his old [place]. He decided to detox and went to [place] yesterday morning. His last drink was at 9 AM in the morning. Patient while patient started to detox he started having tremors, hallucination, delusions and the chest pressure. He feels increasingly weak in his lower extremity and he feels his legs are shaky. EKG done in the ER suggested Q waves in V1 through V3 with minimal [address] elevation in V2 consistent with old [place]. Patient's chest pain was treated with nitroglycerin and treated as NSTEMI. Cardiology was consulted patient initiated on heparin drip. Labs were reviewed patient has a troponin 0.0 [phone]. LDL 54. INR 0.9 magnesium 1.5 AST 87 ALT 57 alkaline phosphatase 97 calcium 9 glucose 123 creatinine 0.63 WBC of 9.2 hemoglobin 13.3 platelet 245 8/1 patient's chest pain has improved. Patient does have mild tremors involving upper extremity but denies any weakness or difficulty ambulating. Cardiology has evaluated the patient. Repeat echogram suggested mildly improve ejection fraction. Since patient's symptoms has improved with medications. Plan to perform cardiac cath as outpatient. Review of system Constitutional: No fevers, chills and weight loss. tremorous HENT: Negative. Negative for hearing loss. Eyes: Negative. Respiratory: No cough, shortness of breath or hemoptysis. No sputum production and wheezing. Cardiovascular: endorses chest pain, denies palpitations, orthopnea, claudication and PND. No swelling of feet Gastrointestinal: Negative for nausea, vomiting and melena. Genitourinary: Negative for urgency and frequency. Musculoskeletal: Negative for myalgias and neck pain. Skin: Negative. Negative for itching and rash. Neurological: Negative for headaches. lower ext shakiness and weakness Psychiatric/Behavioral: Negative for depression Physical exam CONSTITUTIONAL: Patient appears comfortable in no apparent distress. NECK: No JVD or lymph node enlargement. HEET: Unremarkable, conjunctivae/corneas clear. Sclera anicteric. Oral cavity no lesions. RESPIRATORY: Clear to auscultation bilaterally. CARDIOVASCULAR: Regular rate and rhythm. GASTROINTESTINAL: soft, non tender, no organomegaly. Bowel sounds are positive. PSYCH: Denies any depression or anxiety. Tremors and shaky on extension of the arms SKIN: No rashes NEUROLOGICAL: alert, oriented x 3, no focal deficits noted. Upper extremity tremors on extension of his arms. Unstable gait due to shakiness and ataxia Assessment and plan 1. Acute substernal chest pain likely NSTEMI #2 coronary artery disease recent cardiac cath suggestive of 100% RCA stenosis with [id number] collaterals mild 30% circumflex stenosis 100% stenosis of the mid LAD underwent stenting of mid LAD distal LAD occlusion was treated medically. #3 congestive heart failure with last ejection fraction 40 to 45%. #4 COPD without acute exacerbation #5 alcohol abuse currently detoxing. #6 tobacco abuse smoking cessation discussed #7 Bipolar disorder #8 history of gastric bypass with reflux #9 chronic pain secondary to degenerative disc disease #10 history of IBS, #11 hypertension Discharge to home with self-care Patient Condition at Discharge: Good Plan - Discharge Summary Discharge Rx Participant: Yes New Discharge Prescriptions: New Metoprolol Tartrate [Lopressor] 50 mg PO BID tab Pantoprazole [Protonix] 40 mg PO AC-BRKFST #30 tablet. Continue Calcium/Magnesium 1 - 2 tab PO Q8H PRN PRN Reason: Muscle Pain Ibuprofen [Motrin] 600 mg PO Q6H PRN PRN Reason: Fever And/ Or Pain Acetaminophen [Tylenol] 650 mg PO Q4H PRN PRN Reason: Fever And/ Or Pain Tigan 200mg 200 mg IM Q6H PRN PRN Reason: Nausea And Vomiting ondansetron HCL [Zofran] 8 mg PO Q6H PRN PRN Reason: Nausea And Vomiting Zofran 2mg/Ml 4 mg IM Q6H PRN PRN Reason: Nausea And Vomiting lisinopriL [Zestril] 2.5 mg PO DAILY@0600 Multivitamins, Thera [Multivitamin (formulary)] 1 tab PO DAILY@0600 traZODone HCL 50 - 150 mg PO HS PRN PRN Reason: Insomnia Chlorpheniramine Maleate [Chlor-Trimeton] 4 mg PO Q4H PRN PRN Reason: Allergy Symptoms Trimethobenzamide [Tigan] 300 mg PO Q6H PRN PRN Reason: Nausea And Vomiting Tigan 300mg Suppository 300 mg RECTAL Q6H PRN PRN Reason: Nausea Ticagrelor [Brilinta] 90 mg PO BID@0600,1730 Thiamine [Vitamin B-1] 100 mg PO DAILY@0600 Discontinued Metoprolol Tartrate [Lopressor] 25 mg PO BID@0600,1730 Discharge Medication List Acetaminophen [Tylenol] 650 mg PO Q4H PRN 02/18/21 [History] Calcium/Magnesium 1 - 2 tab PO Q8H PRN 02/18/21 [History] Chlorpheniramine Maleate [Chlor-Trimeton] 4 mg PO Q4H PRN 02/18/21 [History] Ibuprofen [Motrin] 600 mg PO Q6H PRN 02/18/21 [History] Multivitamins, Thera [Multivitamin (formulary)] 1 tab PO DAILY@0602/18/21 [History] Thiamine [Vitamin B-1] 100 mg PO DAILY@0602/18/21 [History] Ticagrelor [Brilinta] 90 mg PO BID@0600,1730 02/18/21 [History] Tigan 200mg 200 mg IM Q6H PRN 02/18/21 [History] Tigan 300mg Suppository 300 mg RECTAL Q6H PRN 02/18/21 [History] Trimethobenzamide [Tigan] 300 mg PO Q6H PRN 02/18/21 [History] Zofran 2mg/Ml 4 mg IM Q6H PRN 02/18/21 [History] lisinopriL [Zestril] 2.5 mg PO DAILY@0602/18/21 [History] ondansetron HCL [Zofran] 8 mg PO Q6H PRN 02/18/21 [History] traZODone HCL 50 - 150 mg PO HS PRN 02/18/21 [History] Metoprolol Tartrate [Lopressor] 50 mg PO BID tab 02/20/21 [Rx] Pantoprazole [Protonix] 40 mg PO NEISHA #30 tablet. 02/20/21 [Rx] Follow up Appointment(s)/Referral(s): [facility] [Primary Care Provider] - 1-2 days Discharge Disposition: HOME SELF-CARE
== END 2021-02-20 15:18 | disposition home or self-care (01) ==
LOC: EC 18:03 → INTOOBSV 19:44 → 3SCARD 19:44 → UNDODISIN 02-20 15:18
PROVIDERS: ADMIT Family Medicine; ATTEND Family Medicine
DX: R07.2 Precordial pain (principal); I25.10 Atherosclerotic heart disease of native coronary artery without angina pectoris; I50.22 Chronic systolic (congestive) heart failure; I13.0 Hypertensive heart and chronic kidney disease with heart failure and stage 1 through stage 4 chronic kidney disease, or unspecified chronic kidney disease; F10.10 Alcohol abuse, uncomplicated; F31.9 Bipolar disorder, unspecified; I25.5 Ischemic cardiomyopathy; K21.9 Gastro-esophageal reflux disease without esophagitis; N18.9 Chronic kidney disease, unspecified; M54.2 Cervicalgia; F17.210 Nicotine dependence, cigarettes, uncomplicated; K58.9 Irritable bowel syndrome, unspecified; M54.5 Low back pain; G89.29 Other chronic pain; M41.9 Scoliosis, unspecified; L89.159 Pressure ulcer of sacral region, unspecified stage; J44.9 Chronic obstructive pulmonary disease, unspecified; I10 Essential (primary) hypertension; Z95.1 Presence of aortocoronary bypass graft; Z98.84 Bariatric surgery status; Z98.61 Coronary angioplasty status; I25.2 Old myocardial infarction; Z71.6 Tobacco abuse counseling; Z79.02 Long term (current) use of antithrombotics/antiplatelets; Z79.82 Long term (current) use of aspirin; Z79.899 Other long term (current) drug therapy; Z87.442 Personal history of urinary calculi; M51.36 Other intervertebral disc degeneration, lumbar region
CPT/HCPCS: 99291; 96376 ×3; 96366 ×4; 96368; 96365; 96372; 96375; 36415; 93005; 80061; 80053 ×2; 83735; 84484 ×2; 85025; 85610; 85730 ×3; 86140; 71045; G0378 ×3; C8924; J2060 ×2; J3411; J1644 ×4; J3475; Q9950; 93308

== ENCOUNTER 2021-03-29 23:21 | Inpatient (IN) | payer MEDICARE, MEDICAID ==
[2021-03-30] MEDS ORDERED: IBUPROFEN 400 MG TAB PO STA (01:17)
[2021-03-30 02:05] LABS: Amphetamine Screen,Urine Not Detected (NotDetected); Barbiturate Screen,Urine Not Detected (NotDetected); Benzodiazepines Screen,Urine Not Detected (NotDetected); Cocaine Screen,Urine Not Detected (NotDetected); Methadone Screen, Urine Not Detected (NotDetected); Opiate Screen,Urine Not Detected (NotDetected); Oxycodone Screen, Urine Not Detected (NotDetected); Phencyclidine Screen,Urine Not Detected (NotDetected); Tricyclic Antidepressant,Urine Not Detected (NotDetected); Urn Cannabinoid Scrn Not Detected (NotDetected)
--- NOTE | 2021-03-30 02:25 | CT ---
EXAMINATION TYPE: CT orbits wo con DATE OF EXAM: 03/30/2021 COMPARISON: None HISTORY: etoh Pain CT DLP: 1425.4 mGycm Automated exposure control for dose reduction was used. Images obtained from the bottom of the mandible to the top of the frontal sinuses without contrast. The mandibular ring appears intact. Temporomandibular joints are anatomic. Zygomatic arches appear no rmal. The maxilla is intact. There is fairly normal aeration of the paranasal sinuses. Nasal bone is intact. There is no evidence of orbital mass. There is some mucosal thickening in the anterior ethmoi d sinuses. There is mild mucosal thickening left side frontal sinus. There is no evidence of orbital blowout fracture. Mastoid sinuses appear normal. External auditory canals appear normal. IMPRESSION: No fracture seen. Mild anterior ethmoid and frontal sinusitis. No significant periorbital abnormality identified.
--- NOTE | 2021-03-30 02:34 | CT ---
EXAMINATION TYPE: CT brain wo con DATE OF EXAM: 03/30/2021 COMPARISON: 12/25/2020 HISTORY: Weakness trauma. CT DLP: 1425.4 mGycm Automated exposure control for dose reduction was used. There is mild cerebral atrophy. There is no mass effect nor midline shift. There is no sign of intrac ranial hemorrhage. Calvarium is intact. There is no evidence of cerebral edema. Skull base is intact. There is some mucosal thickening in the ethmoid air cells. There is some fusiform aneurysmal changes in the supraclinoid right internal carotid artery and the proximal right middle cerebral artery. The se appear similar to old exam. IMPRESSION: Cerebral atrophy. No acute intracranial abnormality. Ethmoid sinusitis increased compared to old exam . 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
--- NOTE | 2021-03-30 07:17 | ED ---
Psych HPI - General Source: patient Mode of arrival: EMS - History of Present Illness MD Complaint: suicidal ideation, feels depressed -: days(s) Associated Psychiatric Symptoms: depression, suicidal ideation History of same: Yes Quality: getting worse Improves With: none Worsens With: none Context: recent alcohol abuse <Iraj Polanco - Last Filed: 03/30/21 07:16> <Saroj Cole - Last Filed: 03/30/21 11:00> - General Chief Complaint: Psychiatric Symptoms Stated Complaint: Mental Health Time Seen by Provider: 03/29/21 23:31 - Related Data Home Medications Medication Instructions Recorded Confirmed Acetaminophen [Tylenol] 650 mg PO Q4H PRN 02/18/21 03/30/21 Calcium/Magnesium 1 tab PO DAILY 02/18/21 03/30/21 Ticagrelor [Brilinta] 90 mg PO BID 02/18/21 03/30/21 lisinopriL [Zestril] 2.5 mg PO DAILY 02/18/21 03/30/21 Albuterol Inhaler [Ventolin Hfa 2 puff INHALATION RT-QID PRN 03/30/21 03/30/21 Inhaler] Aspirin EC [Ecotrin Low Dose] 81 mg PO DAILY 03/30/21 03/30/21 Atorvastatin [Lipitor] 80 mg PO HS 03/30/21 03/30/21 DULoxetine HCL [Cymbalta] 60 mg PO DAILY 03/30/21 03/30/21 Fluticasone/Salmeterol [Advair 1 puff INHALATION RT-BID 03/30/21 03/30/21 100-50 Diskus] Multivit with Calcium,Iron,Min 1 tab PO DAILY 03/30/21 03/30/21 [Women's Multivitamin] Nitroglycerin Sl Tabs [Nitrostat] 0.4 mg SL Q5M PRN 03/30/21 03/30/21 Omeprazole 20 mg PO DAILY 03/30/21 03/30/21 Spironolactone 25 mg PO DAILY 03/30/21 03/30/21 Tamsulosin HCl [Flomax] 0.4 mg PO HS 03/30/21 03/30/21 lamoTRIgine [LaMICtal] 100 mg PO BID 03/30/21 03/30/21 Previous Rx's Medication Instructions Recorded Metoprolol Tartrate [Lopressor] 50 mg PO BID tab 02/20/21 Pantoprazole [Protonix] 40 mg PO JHONATAN-BRKFST #30 tablet. 02/20/21 Allergies Allergy/AdvReac Type Severity Reaction Status Date / Time No Known Allergies Allergy Verified 03/30/21 07:51 Review of Systems ROS Other: All systems not noted in ROS Statement are negative. Constitutional: Denies: fever, chills Respiratory: Denies: cough, dyspnea Cardiovascular: Denies: chest pain, palpitations, edema Gastrointestinal: Denies: abdominal pain, vomiting, diarrhea Genitourinary: Denies: dysuria, hematuria Musculoskeletal: Denies: back pain Skin: Denies: rash Neurological: Denies: headache, weakness Psychiatric: Reports: depression, suicidal thoughts. Denies: auditory hallucinations, visual hallucinations, homicidal thoughts <Iraj Polanco - Last Filed: 03/30/21 07:16> ROS Other: All systems not noted in ROS Statement are negative. <Saroj Cole - Last Filed: 03/30/21 11:00> ROS Statement: Those systems with pertinent positive or pertinent negative responses have been documented in the HPI. Past Medical History Past Medical History: COPD, GERD/Reflux, GI Bleed, Hypertension, Musculoskeletal Disorder, Pneumonia, Renal Disease, Skin Disorder Additional Past Medical History / Comment(s): ETOH abuse with delirium tremors, lower GI bleed, IBS, chronic iron deficiency anemia, hypomagnesemia, hyperbilirubinemia, anorexia, vertigo, nephrolithiasis-passed stone on his own, chronic low back/cervical pain, DDD, kyphosis, scoliosis, coccyx pressure ulcer pt states is mostly healed History of Any Multi-Drug Resistant Organisms: None Reported Past Surgical History: Bariatric Surgery, Hernia Repair, Orthopedic Surgery, Tonsillectomy Additional Past Surgical History / Comment(s): Right inner Forearm-metal plate, gastric bypass, incisional hernia surgery x2, EGDs, colonoscopies. Past Anesthesia/Blood Transfusion Reactions: No Reported Reaction Past Psychological History: Anxiety, Bipolar, Depression, PTSD Smoking Status: Current every day smoker Past Alcohol Use History: Abuse, Daily, Heavy Past Drug Use History: Cocaine, Heroin, Marijuana - Past Family History Mother Family Medical History: Hypertension Additional Family Medical History / Comment(s): Lupus. Mother is living. Father Family Medical History: Liver Disease Additional Family Medical History / Comment(s): ETOH abuse. of cirrhosis complications. <VikkiIraj vladez - Last Filed: 03/30/21 07:16> General Exam Limitations: no limitations General appearance: alert, in no apparent distress Head exam: Present: atraumatic, normocephalic Eye exam: Present: normal appearance Neck exam: Present: normal inspection Respiratory exam: Present: normal lung sounds bilaterally. Absent: respiratory distress, wheezes, rales, rhonchi, stridor Cardiovascular Exam: Present: regular rate, normal rhythm, normal heart sounds. Absent: systolic murmur, diastolic murmur, rubs, gallop GI/Abdominal exam: Present: soft. Absent: distended, tenderness, guarding, rebound, rigid, mass Extremities exam: Present: normal inspection, normal capillary refill. Absent: pedal edema, calf tenderness Neurological exam: Present: alert Psychiatric exam: Present: depressed, suicidal ideation. Absent: agitated, anxious, flat affect, manic, homicidal ideation Skin exam: Present: warm, dry, intact, normal color. Absent: rash <SherriIraj - Last Filed: 03/30/21 07:16> Course Vital Signs 03/29/21 23:22 Temperature 98.7 F Pulse Rate 89 Respiratory 20 Rate Blood Pressure 134/91 O2 Sat by Pulse 98 Oximetry Medical Decision Making <Saroj Cole - Last Filed: 03/30/21 11:00> - Medical Decision Making Patient was seen by mental health services and admitted. (Saroj Cole) - Lab Data Lab Results 03/30/21 Range/Units 01:31 Urine Opiates Screen Not Detected (NotDetected) Ur Oxycodone Screen Not Detected (NotDetected) Urine Methadone Screen Not Detected (NotDetected) Ur Propoxyphene Screen Not Detected (NotDetected) Ur Barbiturates Screen Not Detected (NotDetected) U Tricyclic Antidepress Not Detected (NotDetected) Ur Phencyclidine Scrn Not Detected (NotDetected) Ur Amphetamines Screen Not Detected (NotDetected) U Methamphetamines Scrn Not Detected (NotDetected) U Benzodiazepines Scrn Not Detected (NotDetected) Urine Cocaine Screen Not Detected (NotDetected) U Marijuana (THC) Screen Not Detected (NotDetected) Disposition <Iraj Polanco - Last Filed: 03/30/21 07:16> Is patient prescribed a controlled substance at d/c from ED?: No Decision Time: 11:00 <Saroj Cole - Last Filed: 03/30/21 11:00> Clinical Impression: Suicidal ideation, Depression Disposition: TRANSFER TO PSYCH HOSP/UNIT Referrals: [facility] [Primary Care Provider] - 1-2 days
[2021-03-30] MEDS ORDERED: LORazepam 2 MG/ML INJ IV STA (11:21)
[2021-03-30] MEDS ORDERED: ALBUTEROL HFA INHALER INHALATION PRN (12:59)
[2021-03-30] MEDS ORDERED: NITROGLYCERIN SL TABS 0.4 MG TAB SUBLINGUAL PRN (12:59)
[2021-03-30] MEDS ORDERED: LORazepam 2 MG/ML INJ IM PRN (13:04)
[2021-03-30] MEDS ORDERED: haloperidoL 5 MG TAB PO PRN (13:04)
[2021-03-30] MEDS ORDERED: HALOPERIDOL LACTATE 5 MG/ML 1 ML VIAL IM PRN (13:04)
[2021-03-30] MEDS ORDERED: LORazepam 1 MG TAB PO PRN (13:04)
[2021-03-30] MEDS ORDERED: MAGNESIUM HYDROXIDE 2,400 MG/10 ML CUP PO PRN (13:05)
[2021-03-30] MEDS ORDERED: ACETAMINOPHEN TAB 325 MG TAB PO PRN (13:05)
[2021-03-30] MEDS ORDERED: MAG HYDROX/AL HYDROX/SIMETH 30 ML CUP PO PRN (13:05)
[2021-03-30] MEDS: NICOTINE 21MG/24HR PATCH TRANSDERM SCH (14:38)
[2021-03-30 14:47] LABS: Appearance,Urine Turbid (Clear); Bacteria,Urine Many /hpf; Bilirubin,Urine Negative (Negative); Blood,Urine Moderate (Negative); Color,Urine Yellow; Glucose,Urine (UA) Negative (Negative); Ketones,Urine Negative (Negative); Leukocyte Esterase,Urine Large (Negative); Nitrite,Urine Negative (Negative); PH, Urine 6.5 (5.0-8.0); Protein,Urine 1+ (Negative); RBC,Urine 63 /hpf (0-5); Specific Gravity,Urine 1.012 (1.001-1.035); Urobilinogen,Urine <2.0 mg/dL (<2.0); WBC,Urine >182 /hpf (0-5)
[2021-03-30] MEDS ORDERED: diazePAM 5 MG TAB PO SCH (15:00)
[2021-03-30] MEDS: diazePAM 5 MG TAB PO SCH ×2 (15:10→20:46)
[2021-03-30] MEDS: TICAGRELOR 90 MG TAB PO SCH (20:44)
[2021-03-30] MEDS: TAMSULOSIN 0.4 MG CAP.ER.24H PO SCH (20:44)
[2021-03-30] MEDS: METOPROLOL TARTRATE 50 MG TAB PO SCH (20:45)
[2021-03-30] MEDS: SYMBICORT 80-4.5 MCG INHALER (MHU) INHALATION SCH (20:45)
[2021-03-30] MEDS: ATORVASTATIN 80 MG TAB PO SCH (20:45)
--- NOTE | 2021-03-31 02:09 | P.MDCNMH ---
History of Present Illness H&P Date: 03/30/21 Chief Complaint: medical evaluation 55 year old male with COPD currently compensated CAD s/p stent december 2020, on dual antiplatelet therapy hypertension controlled patient comes in due to depression and suicidal ideation . patient does not go into details , he does admit to heavy alcohol intake , which is an ongoing issues as he prefers to other medications in order to forget his problems, he understands its not his best option when it comes to health , but he claims that it works the best. he denies any medical concerns at this time , denies any fever, chills, URI , chest pain or trouble breathing , he denies any gi bleeding he denies any drug abuse except for occasional marijuana Review of Systems Pertinent positives as noted in HPI. All other systems were reviewed and are negative Past Medical History Past Medical History: COPD, GERD/Reflux, GI Bleed, Hypertension, Musculoskeletal Disorder, Pneumonia, Renal Disease, Skin Disorder Additional Past Medical History / Comment(s): ETOH abuse with delirium tremors, lower GI bleed, IBS, chronic iron deficiency anemia, hypomagnesemia, hyperbilirubinemia, anorexia, vertigo, nephrolithiasis-passed stone on his own, chronic low back/cervical pain, DDD, kyphosis, scoliosis, coccyx pressure ulcer pt states is mostly healed History of Any Multi-Drug Resistant Organisms: None Reported Past Surgical History: Bariatric Surgery, Hernia Repair, Orthopedic Surgery, Tonsillectomy Additional Past Surgical History / Comment(s): Right inner Forearm-metal plate, gastric bypass, incisional hernia surgery x2, EGDs, colonoscopies. Past Anesthesia/Blood Transfusion Reactions: No Reported Reaction Past Psychological History: Anxiety, Bipolar, Depression, PTSD Additional Psychological History / Comment(s): Pt resides in a friends home where he rents a room. He uses the bus system to get to appointments. Pt states his depression is stable at this time, no thoughts or plans of suicide. He has had multiple mental health unit admissions. He has ETOH abus. He goes to [facility]. He has a payee. Smoking Status: Current every day smoker, Never smoker Past Alcohol Use History: Abuse, Daily, Heavy Past Drug Use History: Cocaine, Heroin, Marijuana - Past Family History Mother Family Medical History: Hypertension Additional Family Medical History / Comment(s): Lupus. Mother is living. Father Family Medical History: Liver Disease Additional Family Medical History / Comment(s): ETOH abuse. of cirrhosis complications. Medications and Allergies Home Medications Medication Instructions Recorded Confirmed Type Acetaminophen [Tylenol] 650 mg PO Q4H PRN 02/18/21 03/30/21 History Calcium/Magnesium 1 tab PO DAILY 02/18/21 03/30/21 History Ticagrelor [Brilinta] 90 mg PO BID 02/18/21 03/30/21 History lisinopriL [Zestril] 2.5 mg PO DAILY 02/18/21 03/30/21 History Metoprolol Tartrate [Lopressor] 50 mg PO BID tab 02/20/21 03/30/21 Rx Pantoprazole [Protonix] 40 mg PO [id number] #30 tablet. 02/20/21 03/30/21 Rx Albuterol Inhaler [Ventolin Hfa 2 puff INHALATION RT-QID PRN 03/30/21 03/30/21 History Inhaler] Aspirin EC [Ecotrin Low Dose] 81 mg PO DAILY 03/30/21 03/30/21 History Atorvastatin [Lipitor] 80 mg PO HS 03/30/21 03/30/21 History DULoxetine HCL [Cymbalta] 60 mg PO DAILY 03/30/21 03/30/21 History Fluticasone/Salmeterol [Advair 1 puff INHALATION RT-BID 03/30/21 03/30/21 History 100-50 Diskus] Multivit with Calcium,Iron,Min 1 tab PO DAILY 03/30/21 03/30/21 History [Women's Multivitamin] Nitroglycerin Sl Tabs [Nitrostat] 0.4 mg SL Q5M PRN 03/30/21 03/30/21 History Omeprazole 20 mg PO DAILY 03/30/21 03/30/21 History Spironolactone 25 mg PO DAILY 03/30/21 03/30/21 History Tamsulosin HCl [Flomax] 0.4 mg PO HS 03/30/21 03/30/21 History lamoTRIgine [LaMICtal] 100 mg PO BID 03/30/21 03/30/21 History Allergies Allergy/AdvReac Type Severity Reaction Status Date / Time No Known Allergies Allergy Verified 03/30/21 07:51 Physical Exam Vitals: Vital Signs Temp Pulse Pulse Resp BP BP Pulse Ox 03/30/21 15:51 98.9 F 102 H 20 135/77 03/30/21 13:30 99.2 F 88 20 130/87 99 03/30/21 11:31 94 18 120/85 94 L Intake and Output 03/30/21 03/30/21 03/31/21 14:59 22:59 06:59 Other: Weight 81.148 kg Constitutional: No acute distress, conversant, pleasant Eyes: Anicteric sclerae, moist conjunctiva, Pupils equal round reactive to light ENMT: NC/AT Oropharynx clear, no erythema, or exudates Neck: Supple, FROM, no masses, or JVD No carotid bruits No thyromegaly Lungs: Clear to auscultation Clear to percussion Normal respiratory effort, no accessory muscle use Cardiovascular: Heart regular in rate and rhythm, No murmurs, gallops, or rubs No peripheral edema Abdominal: Soft Nontender, no guarding, rebound or rigidity Abdomen moving with respiration Normoactive bowel sounds No hepatomegaly, No splenomegaly No palpable mass No abdominal wall hernia noted Skin: Normal temperature, tone, texture, turgor No induration No subcutaneous nodules No rash, lesions No ulcers Extremities: No digital cyanosis No clubbing Pedal pulses intact and symmetrical Radial pulses intact and symmetrical No calf tenderness Psychiatric: Alert and oriented to person, place and time Neuro Muscles Strength 5/5 in all 4 extremities Sensation to light touch grossly present throughout Cranial nerves II-XII grossly intact No focal sensory deficits Lymphatics: no palpable cervical or supraclavicular , or inguinal lymph nodes Cranial Nerve Examination - Cranial Nerves Cranial Nerve II- Optic: Intact Cranial Nerve III- Oculomotor: Intact Cranial Nerve IV- Trochlear: Intact Cranial Nerve V- Trigeminal: Intact Cranial Nerve - Abducens: Intact Cranial Nerve VII- Facial: Intact Cranial Nerve VIII- Auditory: Intact Cranial Nerve IX- Glossopharyngeal: Intact Cranial Nerve X- Vagus: Intact Cranial Nerve XI- Accessory: Intact Cranial Nerve XII- Hypoglossal: Intact Results Labs: Abnormal Lab Results - Last 24 Hours (Table) 03/30/21 Range/Units 13:52 Urine Protein 1+ H (Negative) Urine Blood Moderate H (Negative) Ur Leukocyte Esterase Large H (Negative) Urine RBC 63 H (0-5) /hpf Urine WBC >182 H (0-5) /hpf Urine WBC Clumps Many H (None) /hpf Urine Bacteria Many H (None) /hpf Assessment and Plan Assessment: bipolar disorder, depression suicidal ideation management per psych COPD compensated continue with inhalers PRN CAD withi recent stents continue with ASA , birlinta hypertension , continue cardiac meds hyperlipidemia continue with statin negative for covid follow up labs Thank you for allowing us to participate in the care of this patient. We will follow peripherally. Do not hesitate to contact us with questions. Someone can be reached from the [facility] hospitalist group at all hours of the day at [phone].
[2021-03-31] MEDS ORDERED: PANTOPRAZOLE 40 MG TABLET PO SCH (07:30)
[2021-03-31] MEDS: NICOTINE 21MG/24HR PATCH TRANSDERM SCH (08:30)
[2021-03-31] MEDS: ASPIRIN 81 MG PO SCH (08:30)
[2021-03-31] MEDS: TICAGRELOR 90 MG TAB PO SCH ×2 (08:30→21:25)
[2021-03-31] MEDS: DULoxetine HCL 30 MG CAPSULE.DR PO SCH (08:30)
[2021-03-31] MEDS: MULTIVITAMINS, THERA 1 EACH TAB PO SCH (08:30)
[2021-03-31] MEDS: METOPROLOL TARTRATE 50 MG TAB PO SCH ×3 (08:30→21:33)
[2021-03-31] MEDS: PANTOPRAZOLE 40 MG TABLET PO SCH (08:30)
[2021-03-31] MEDS: SPIRONOLACTONE 25 MG TAB PO SCH (08:30)
[2021-03-31] MEDS: SYMBICORT 80-4.5 MCG INHALER (MHU) INHALATION SCH ×2 (08:31→21:24)
[2021-03-31] MEDS: diazePAM 5 MG TAB PO SCH ×3 (08:32→21:35)
[2021-03-31] MEDS ORDERED: lamoTRIgine 25 MG TAB PO SCH (09:30)
--- NOTE | 2021-03-31 09:30 | P.HP ---
Psychiatric H&P - . H&P Date: 03/31/21 History & Physical: Allergies Allergy/AdvReac Type Severity Reaction Status Date / Time No Known Allergies Allergy Verified 03/30/21 07:51 Vital Signs Temp 97.7 F 03/31/21 07:10 Pulse 104 H 03/31/21 08:36 Resp 16 03/31/21 07:10 BP 110/73 03/31/21 08:36 Pulse Ox 99 03/30/21 13:30 Intake & Output 03/30/21 03/31/21 03/31/21 18:59 06:59 18:59 Weight 81.148 kg Laboratory Last Values Urine Color Yellow 03/30/21 13:52 Urine Appearance Turbid (Clear) 03/30/21 13:52 Urine pH 6.5 (5.0-8.0) 03/30/21 13:52 Ur Specific Harvest 1.012 (1.001-1.035) 03/30/21 13:52 Urine Protein 1+ (Negative) H 03/30/21 13:52 Urine Glucose (UA) Negative (Negative) 03/30/21 13:52 Urine Ketones Negative (Negative) 03/30/21 13:52 Urine Blood Moderate (Negative) H 03/30/21 13:52 Urine Nitrite Negative (Negative) 03/30/21 13:52 Urine Bilirubin Negative (Negative) 03/30/21 13:52 Urine Urobilinogen <2.0 mg/dL (<2.0) 03/30/21 13:52 Ur Leukocyte Esterase Large (Negative) H 03/30/21 13:52 Urine RBC 63 /hpf (0-5) H 03/30/21 13:52 Urine WBC >182 /hpf (0-5) H 03/30/21 13:52 Urine WBC Clumps Many /hpf (None) H 03/30/21 13:52 Urine Bacteria Many /hpf (None) H 03/30/21 13:52 Urine Opiates Screen Not Detected (NotDetected) 03/30/21 01:31 Ur Oxycodone Screen Not Detected (NotDetected) 03/30/21 01:31 Urine Methadone Screen Not Detected (NotDetected) 03/30/21 01:31 Ur Propoxyphene Screen Not Detected (NotDetected) 03/30/21 01:31 Ur Barbiturates Screen Not Detected (NotDetected) 03/30/21 01:31 U Tricyclic Antidepress Not Detected (NotDetected) 03/30/21 01:31 Ur Phencyclidine Scrn Not Detected (NotDetected) 03/30/21 01:31 Ur Amphetamines Screen Not Detected (NotDetected) 03/30/21 01:31 U Methamphetamines Scrn Not Detected (NotDetected) 03/30/21 01:31 U Benzodiazepines Scrn Not Detected (NotDetected) 03/30/21 01:31 Urine Cocaine Screen Not Detected (NotDetected) 03/30/21 01:31 U Marijuana (THC) Screen Not Detected (NotDetected) 03/30/21 01:31 Coronavirus (PCR) Not Detected (Not Detectd) 03/30/21 11:29 03/31/21 09:11 IDENTIFYING DATA: Patient is a 54-year-old male who is currently lives with a friend in a house, has 3 kids in a single and currently collects Social Security HPI: Patient presented to the hospital yesterday complaining of suicidal ideations and depression and also was drinking etoh. Patient was seen in the hallways and agreeable to speak to commercial real estate underwriter. He appears to be weak and mildly tremulous today and was walking with a walker. She has a history of bipolar disorder and currently follows up at [facility] is on Cymbalta and Lamictal. He also has a history of alcohol abuse and severe withdrawals and has had several psychiatric hospitalizations in the past. Patient was last admitted to the mental health unit in March 2020. Patient claims that he is feeling "extremely depressed" and states that he went on a drinking binge for the past 2 days. He states that he was off his meds at this time for several days and was drinking approximately 20 beers. He states that he is feeling depressed for some "bad news I got". He claims that his mother of his child was younger than he expected and she told him about this. He states that "I'm not a pedophile" and was fairly tangential and guarded and evasive. He states that he was very concerned and he called the FBI and the police to report himself. He states that he does not know what to do with himself at this time as he feels very anxious and came to the hospital. He states that he does have a good living environment at this time however finds that his housemate and friend has been difficult to deal with. He sleep has been interrupted and poor. He is denying any homicidal or suicidal ideations intent or plan. He is denying any auditory or visual hallucinations at this time. He states that he smokes cigarettes approximately 1 pack per day and occasional marijuana. He describes binge drinking at times as noted above. PAST PSYCHIATRIC HISTORY: Patient states that he has a history of bipolar. Patient's last psychiatric hospitalization was on 03/2020. Patient was on Lamictal and Cymbalta and has recently been off these medications. He currently follows up at [facility] with his nurse practitioner and his therapist. He claims that he has had 3 previous suicide attempts in the past overdosing on medication several years ago. PMH: GERD, hypertension, degenerative joint disease, gastric bypass surgery, IBS ALLERGIES: as per EMR CHEMICAL DEPENDENCY HISTORY: as per HPI FAMILY PSYCHIATRIC/SUBSTANCE USE HISTORY: Claims his father was an alcoholic and his grandmother had some form of mental illness. SOCIAL HISTORY: States that he was born and raised in [place] and moved to [place] thereafter. 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 MENTAL STATUS EXAM: General Appearance: Patient appears to be stated age is alert, attempts to be cooperative. Quiet. Patient has a long house and has poor hygiene and grooming. Behavior: Patient is calmly seated without any agitated behavior. Tremulous Speech: Patient's speech is fluent and nonpressured. Mood/Affect: Patient reports their mood is depressed, affect is congruent and co nstricted. Suicidality/Homicidality: Patient denies having any homicidal ideation intent or plan. He admits having suicidal thoughts however no intent or plan. Perceptions: Patient denies any auditory or visual hallucinations. Though content/process: Poverty of content. Rambles at times. Guarded/evasive. Memory and concentration: AOX3, grossly intact for the purposes of this session. Can spell "WORLD" backwards Judgment and insight: poor STRENGTHS/WEAKNESSES: strength is that patient is resilient, weaknesses that patient is impulsive with poor insight. INTELLECT: average IMPRESSIONS: Bipolar disorder, current episode depressed Alcohol abuse, currently in withdrawal Cannabis use disorder mild Nicotine dependence Plan: -Patient is admitted under voluntary status to [facility]HU for stabilization of psychiatric symptoms and safety. Patient has signed medication consent and is placed in patient's chart. Patient signed voluntary form -Medications : Lamictal 50 mg twice a day for mood stabilization/depression, we'll also start patient back on Cymbalta 30 mg daily for mood/anxiety. Scheduled Valium 10 mg 3 times a day with plan to taper down for etoh w/d -Ativan and Haldol PRN for agitation/aggression -ciwa protocol with ativan prn for etoh withdrawal. -Patient was counselled on substance abuse and desired to cut back on use, however patient was fairly superficial about this -Patient was informed of the risks, benefits and side effects of the medication and patient verbally consented to taking the medications. Patient signed med consent form and was placed in chart. -Internal Medicine consult to perform medical evaluation and physical. -NRT - nicotine patch -SW on board for discharge planning. Encourage patient to participate in groups to work on coping skills. 03/31/21 09:19
[2021-03-31] MEDS: THIAMINE 100 MG TAB PO SCH (09:57)
[2021-03-31] MEDS: lamoTRIgine 25 MG TAB PO SCH ×2 (09:57→21:25)
[2021-03-31] MEDS: FOLIC ACID 1 MG TAB PO SCH (09:57)
[2021-03-31 12:54] LABS: Basophils % (A) 1 %; Eosinophils # (A) 0.1 k/uL (0-0.7); Eosinophils % (A) 1 %; HCT 40.4 % (39.0-53.0); HGB 13.1 gm/dL (13.0-17.5); Hypochromasia Slight; Lymphocytes # (A) 0.9 k/uL (1.0-4.8); Lymphocytes % (A) 12 %; MCH 32.1 pg (25.0-35.0); MCHC 32.5 g/dL (31.0-37.0); MCV 98.9 fL (80.0-100.0); Macrocytosis Slight; Mean Platelet Volume 7.1; Monocytes # (A) 0.3 k/uL (0-1.0); Monocytes % (A) 5 %; Neutrophils # (A) 5.9 k/uL (1.3-7.7); Neutrophils % (A) 79 %; Platelet Count 320 k/uL (150-450); RBC 4.08 m/uL (4.30-5.90); RDW 15.1 % (11.5-15.5); WBC 7.4 k/uL (3.8-10.6)
[2021-03-31 13:01] LABS: ALT 73 U/L (4-49); AST 128 U/L (17-59); African American GFR (CKD) >90 (>60 ml/min/1.73 sqM); Albumin 4.2 g/dL (3.5-5.0); Alkaline Phosphatase 99 U/L (38-126); Anion Gap 10 mmol/L; Blood Urea Nitrogen 12 mg/dL (9-20); Calcium 9.7 mg/dL (8.4-10.2); Carbon Dioxide 26 mmol/L (22-30); Chloride 99 mmol/L (98-107); Glucose 127 mg/dL (74-99); Non-African American GFR(CKD) >90 (>60 ml/min/1.73 sqM); Potassium 4.7 mmol/L (3.5-5.1); Sodium 135 mmol/L (137-145); Total Bilirubin 1.5 mg/dL (0.2-1.3); Total Protein 7.3 g/dL (6.3-8.2)
[2021-03-31] MEDS: TAMSULOSIN 0.4 MG CAP.ER.24H PO SCH (21:25)
[2021-03-31] MEDS: ATORVASTATIN 80 MG TAB PO SCH (21:25)
[2021-03-31 22:49] LABS: Hemoglobin A1C 5.9 % (4.0-6.0)
[2021-04-01 04:40] LABS: Chol/HDL Ratio 1.65; Cholesterol 170 mg/dL (0-200); LDL Cholesterol,Calculated 46.6 mg/dL (0.0-131.0)
[2021-04-01] MEDS: PANTOPRAZOLE 40 MG TABLET PO SCH (08:05)
[2021-04-01] MEDS: diazePAM 5 MG TAB PO SCH ×2 (08:05→21:15)
[2021-04-01] MEDS: MULTIVITAMINS, THERA 1 EACH TAB PO SCH (08:05)
[2021-04-01] MEDS: ASPIRIN 81 MG PO SCH (08:05)
[2021-04-01] MEDS: lamoTRIgine 25 MG TAB PO SCH ×2 (08:06→21:14)
[2021-04-01] MEDS: THIAMINE 100 MG TAB PO SCH (08:06)
[2021-04-01] MEDS: DULoxetine HCL 30 MG CAPSULE.DR PO SCH (08:06)
[2021-04-01] MEDS: TICAGRELOR 90 MG TAB PO SCH ×2 (08:07→21:15)
[2021-04-01] MEDS: NICOTINE 21MG/24HR PATCH TRANSDERM SCH (08:07)
[2021-04-01] MEDS: SYMBICORT 80-4.5 MCG INHALER (MHU) INHALATION SCH ×2 (08:08→21:17)
[2021-04-01] MEDS: METOPROLOL TARTRATE 50 MG TAB PO SCH ×2 (08:08→21:15)
[2021-04-01] MEDS: FOLIC ACID 1 MG TAB PO SCH (08:08)
[2021-04-01] MEDS: SPIRONOLACTONE 25 MG TAB PO SCH (08:08)
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
[2021-04-01] MEDS ORDERED: diazePAM 5 MG TAB PO SCH (21:00)
[2021-04-01] MEDS: ATORVASTATIN 80 MG TAB PO SCH (21:14)
[2021-04-01] MEDS: TAMSULOSIN 0.4 MG CAP.ER.24H PO SCH (21:14)
[2021-04-02] MEDS: THIAMINE 100 MG TAB PO SCH (08:29)
[2021-04-02] MEDS: NICOTINE 21MG/24HR PATCH TRANSDERM SCH (08:29)
[2021-04-02] MEDS: PANTOPRAZOLE 40 MG TABLET PO SCH (08:29)
[2021-04-02] MEDS: METOPROLOL TARTRATE 50 MG TAB PO SCH ×2 (08:29→21:26)
[2021-04-02] MEDS: lamoTRIgine 25 MG TAB PO SCH ×2 (08:29→21:27)
[2021-04-02] MEDS: ASPIRIN 81 MG PO SCH (08:30)
[2021-04-02] MEDS: SPIRONOLACTONE 25 MG TAB PO SCH (08:30)
[2021-04-02] MEDS: diazePAM 5 MG TAB PO SCH ×2 (08:30→21:27)
[2021-04-02] MEDS: MULTIVITAMINS, THERA 1 EACH TAB PO SCH (08:30)
[2021-04-02] MEDS: FOLIC ACID 1 MG TAB PO SCH (08:30)
[2021-04-02] MEDS: SYMBICORT 80-4.5 MCG INHALER (MHU) INHALATION SCH ×2 (08:30→21:27)
[2021-04-02] MEDS: DULoxetine HCL 30 MG CAPSULE.DR PO SCH (08:30)
[2021-04-02] MEDS: TICAGRELOR 90 MG TAB PO SCH ×2 (08:31→21:26)
--- NOTE | 2021-04-02 19:43 | PN ---
PROGRESS NOTE DATE OF SERVICE: 04/02/2021. CHIEF COMPLAINT: The patient presented with depression with suicidal thinking. He had been drinking, which has been a long-term problem for him. INTERVAL HISTORY: The patient has been doing fairly well. He had a quiet day yesterday. He comes out on the unit. He tends to have a quiet manner, though he does interact some with others. He has attended most of the groups and seems to find them productive for him. His CIWA scores yesterday were 5 on three different assessments. He said he slept well last night. Today he has been up. His CIWA scores have remained stable. Vital signs as of 0800 hours included BP 101/56, pulse 88 and regular. He said today that overall he felt things were improving for him. He has a better outlook. He says that his mood is improved. He talked briefly about discharge planning issues. He tolerates his psychotropic medications. MENTAL STATUS: Patient gave fairly good eye contact. He answered questions with brief responses. His thoughts were clear. Psychomotor activity was somewhat restless, though not significantly so. His affect was a little constricted. He had a quiet manner. He did not appear to be significantly distressed. His mood was reserved. There was no indication of thought disorder. He denied thoughts of harm. Cognition was clear. ASSESSMENT: I will continue the current diagnosis and treatment plan. We will continue to make efforts to engage the patient in individual and group therapeutic activities. I will continue psychotropic medications the same. He is on a taper of Valium as per Dr. Mosqueda. I reviewed medication issues with the patient to a limited extent; he did not engage too much in the conversation. We will focus on stabilization and discharge planning. MMODL / IJN: [id number] /
[2021-04-02] MEDS: ATORVASTATIN 80 MG TAB PO SCH (21:26)
[2021-04-02] MEDS: TAMSULOSIN 0.4 MG CAP.ER.24H PO SCH (21:26)
[2021-04-03] MEDS: NICOTINE 21MG/24HR PATCH TRANSDERM SCH (08:33)
[2021-04-03] MEDS: SYMBICORT 80-4.5 MCG INHALER (MHU) INHALATION SCH ×2 (08:33→21:10)
[2021-04-03] MEDS: METOPROLOL TARTRATE 50 MG TAB PO SCH ×2 (08:34→21:16)
[2021-04-03] MEDS: PANTOPRAZOLE 40 MG TABLET PO SCH (08:35)
[2021-04-03] MEDS: lamoTRIgine 100 MG TAB PO SCH ×2 (08:35→21:16)
[2021-04-03] MEDS: ASPIRIN 81 MG PO SCH (08:35)
[2021-04-03] MEDS: FOLIC ACID 1 MG TAB PO SCH (08:36)
[2021-04-03] MEDS: DULoxetine HCL 30 MG CAPSULE.DR PO SCH (08:36)
[2021-04-03] MEDS: SPIRONOLACTONE 25 MG TAB PO SCH (08:36)
[2021-04-03] MEDS: TICAGRELOR 90 MG TAB PO SCH ×2 (08:36→21:16)
[2021-04-03] MEDS: THIAMINE 100 MG TAB PO SCH (08:36)
[2021-04-03] MEDS: MULTIVITAMINS, THERA 1 EACH TAB PO SCH (08:36)
[2021-04-03] MEDS ORDERED: diazePAM 5 MG TAB PO SCH (09:00)
[2021-04-03 09:21] VITALS: RESP 16
--- NOTE | 2021-04-03 12:28 | PN ---
PROGRESS NOTE DATE OF SERVICE: 04/03/2021. CHIEF COMPLAINT: The patient presented with depression with suicidal thinking. He had been drinking, which has been a long-term problem for him. INTERVAL HISTORY: Patient has been doing fairly well. He seems to continue to make progress in terms of his mood and function. Yesterday he had a quiet day. He comes out on the unit. He tends to have a quiet manner, though he does interact with others. He seems to be comfortable in the milieu. It is noted that he had one CIWA score later in the day of one, and earlier CIWA scores were 6 on three different assessments. The main issues noted were muscle tremor, moderate, and palms moist, minimal. He also was noted to have anxiety. He attended groups yesterday and was appropriate. He said he slept fairly well last night. Today he has been up. He comes out on the unit. Today when I talked to him he said he was feeling good. He noted that overall he has been feeling better day by day. His CIWA score at midnight was zero. He has a good outlook. He is hopeful to be discharged early in the week. He is aware of the treatment plans relating to his medication and understands he is on a tapering dose of Valium, targeting withdrawal issues. He tolerates his psychotropic medications. MENTAL STATUS: Patient gave good eye contact. He was a little restless. He answered questions with direct responses. His thoughts were clear. He was not showing any excessive psychomotor activity or tremors. He was appropriate in his interactions. His affect was in a reasonable range. He smiled a little. He had a calm manner. His mood was even. He did not appear to be distressed. There was no indication of thought disorder. He voiced no thoughts of harm. Cognition was clear. ASSESSMENT: I will continue the current diagnosis and treatment plan. I will continue psychotropic medications the same. The patient has been making progress and continues to report improvement in mood, thoughts and function. I will reduce his Valium to 2 mg twice a day. I anticipate the patient being discharged fairly soon. We will coordinate with outpatient resources and focus on stabilization and discharge planning. ALIS / ZAINA: [id number] /
[2021-04-03] MEDS: TAMSULOSIN 0.4 MG CAP.ER.24H PO SCH (21:16)
[2021-04-03] MEDS: ATORVASTATIN 80 MG TAB PO SCH (21:17)
[2021-04-03] MEDS: diazePAM 2 MG TAB PO SCH (21:18)
[2021-04-04 07:13] VITALS: TEMP 97.5
[2021-04-04 08:25] VITALS: BP 131/74; PULSE 90
[2021-04-04] MEDS: SYMBICORT 80-4.5 MCG INHALER (MHU) INHALATION SCH (08:25)
[2021-04-04] MEDS: PANTOPRAZOLE 40 MG TABLET PO SCH (08:26)
[2021-04-04] MEDS: DULoxetine HCL 30 MG CAPSULE.DR PO SCH (08:26)
[2021-04-04] MEDS: SPIRONOLACTONE 25 MG TAB PO SCH (08:26)
[2021-04-04] MEDS: MULTIVITAMINS, THERA 1 EACH TAB PO SCH (08:26)
[2021-04-04] MEDS: METOPROLOL TARTRATE 50 MG TAB PO SCH (08:26)
[2021-04-04] MEDS: FOLIC ACID 1 MG TAB PO SCH (08:26)
[2021-04-04] MEDS: lamoTRIgine 100 MG TAB PO SCH (08:26)
[2021-04-04] MEDS: TICAGRELOR 90 MG TAB PO SCH (08:26)
[2021-04-04] MEDS: ASPIRIN 81 MG PO SCH (08:26)
[2021-04-04] MEDS: NICOTINE 21MG/24HR PATCH TRANSDERM SCH (08:26)
[2021-04-04] MEDS: THIAMINE 100 MG TAB PO SCH (08:26)
[2021-04-04] MEDS: diazePAM 2 MG TAB PO SCH (08:27)
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
== END 2021-04-04 13:18 | disposition home or self-care (01) | DRG 885 ==
LOC: EC 23:21 → 3MHU 03-30 12:50
PROVIDERS: ADMIT Psychiatry & Neurology Psychiatry; ATTEND Psychiatry & Neurology Psychiatry
DX: F31.30 Bipolar disorder, current episode depressed, mild or moderate severity, unspecified (principal); R45.851 Suicidal ideations; F10.139 Alcohol abuse with withdrawal, unspecified; J44.9 Chronic obstructive pulmonary disease, unspecified; Z20.822 Contact with and (suspected) exposure to COVID-19; F12.10 Cannabis abuse, uncomplicated; I10 Essential (primary) hypertension; J32.2 Chronic ethmoidal sinusitis; I25.10 Atherosclerotic heart disease of native coronary artery without angina pectoris; E78.5 Hyperlipidemia, unspecified; M54.2 Cervicalgia; G89.29 Other chronic pain; M54.5 Low back pain; K58.9 Irritable bowel syndrome, unspecified; M41.9 Scoliosis, unspecified; F43.10 Post-traumatic stress disorder, unspecified; K21.9 Gastro-esophageal reflux disease without esophagitis; M19.90 Unspecified osteoarthritis, unspecified site; F17.210 Nicotine dependence, cigarettes, uncomplicated; Z71.6 Tobacco abuse counseling; Z79.82 Long term (current) use of aspirin; Z79.02 Long term (current) use of antithrombotics/antiplatelets; Z79.899 Other long term (current) drug therapy; Z87.01 Personal history of pneumonia (recurrent); Z87.19 Personal history of other diseases of the digestive system; Z86.39 Personal history of other endocrine, nutritional and metabolic disease; Z86.2 Personal history of diseases of the blood and blood-forming organs and certain disorders involving the immune mechanism; Z87.442 Personal history of urinary calculi; Z98.84 Bariatric surgery status; Z87.2 Personal history of diseases of the skin and subcutaneous tissue; Z95.5 Presence of coronary angioplasty implant and graft; Z90.89 Acquired absence of other organs; Z98.890 Other specified postprocedural states; Z82.49 Family history of ischemic heart disease and other diseases of the circulatory system; Z81.1 Family history of alcohol abuse and dependence; Z83.79 Family history of other diseases of the digestive system; Z82.69 Family history of other diseases of the musculoskeletal system and connective tissue
CPT/HCPCS: 70450; 70480; 80053; 80061; 80306; 81001; 82075; 83036; 84443; 85025; 87635; 96374; 99285

== ENCOUNTER 2021-04-12 05:04 | Emergency (ER) | payer MEDICARE, OTHER ==
[2021-04-12] MEDS ORDERED: DIPH,PERTUS(ACELL)TETVAC-LF 0.5 ML VIAL IM ONE (05:29)
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
[2021-04-12] MEDS ORDERED: BACITRACIN OINT 1 EACH PACKET TOPICAL ONE (06:38)
[2021-04-12 12:15] LABS: Cocaine Screen,Urine Not Detected (NotDetected); Opiate Screen,Urine Not Detected (NotDetected); Phencyclidine Screen,Urine Not Detected (NotDetected); Urn Cannabinoid Scrn Not Detected (NotDetected)
[2021-04-12 12:16] LABS: Amphetamine Screen,Urine Not Detected (NotDetected); Barbiturate Screen,Urine Not Detected (NotDetected); Benzodiazepines Screen,Urine Detected (NotDetected); Methadone Screen, Urine Not Detected (NotDetected); Oxycodone Screen, Urine Not Detected (NotDetected); Tricyclic Antidepressant,Urine Not Detected (NotDetected)
[2021-04-12] MEDS ORDERED: LORazepam 2 MG/ML INJ IV STA (15:32)
[2021-04-12 19:06] VITALS: BP 108/79; PULSE 78; RESP 16; TEMP 98.7
== END 2021-04-12 19:04 | disposition home or self-care (01) ==
LOC: EC 05:04
DX: F10.229 Alcohol dependence with intoxication, unspecified (principal); R51.9 Headache, unspecified; F17.200 Nicotine dependence, unspecified, uncomplicated; I10 Essential (primary) hypertension; J44.9 Chronic obstructive pulmonary disease, unspecified; Z23 Encounter for immunization; Z79.51 Long term (current) use of inhaled steroids; Z79.899 Other long term (current) drug therapy; Y04.8XXA Assault by other bodily force, initial encounter; Y92.009 Unspecified place in unspecified non-institutional (private) residence as the place of occurrence of the external cause
CPT/HCPCS: 82075; 80306; 72125; 70486; 70450; 90715; 99284; 96374; 90471; L0120; J2060

== ENCOUNTER 2021-04-25 18:29 | Observation (INO) | payer MEDICARE, OTHER ==
[2021-04-25] MEDS ORDERED: SODIUM CHLORIDE 0.9% 1,000 ML IV STA (19:01)
[2021-04-25 20:05] LABS: Amphetamine Screen,Urine Not Detected (NotDetected); Anisocytosis Slight; Barbiturate Screen,Urine Not Detected (NotDetected); Basophils # (A) 0.1 k/uL (0-0.2); Basophils % (A) 1 %; Benzodiazepines Screen,Urine Detected (NotDetected); Cocaine Screen,Urine Not Detected (NotDetected); Eosinophils # (A) 0.1 k/uL (0-0.7); Eosinophils % (A) 2 %; HGB 11.3 gm/dL (13.0-17.5); Lymphocytes # (A) 1.8 k/uL (1.0-4.8); Lymphocytes % (A) 29 %; MCH 31.6 pg (25.0-35.0); MCHC 33.4 g/dL (31.0-37.0); MCV 94.8 fL (80.0-100.0); Mean Platelet Volume 7.8; Methadone Screen, Urine Not Detected (NotDetected); Monocytes # (A) 0.5 k/uL (0-1.0); Monocytes % (A) 9 %; Neutrophils # (A) 3.6 k/uL (1.3-7.7); Neutrophils % (A) 57 %; Opiate Screen,Urine Not Detected (NotDetected); Oxycodone Screen, Urine Not Detected (NotDetected); Phencyclidine Screen,Urine Not Detected (NotDetected); Platelet Count 342 k/uL (150-450); RBC 3.58 m/uL (4.30-5.90); RDW 16.5 % (11.5-15.5); Tricyclic Antidepressant,Urine Not Detected (NotDetected); Urn Cannabinoid Scrn Not Detected (NotDetected); WBC 6.3 k/uL (3.8-10.6)
[2021-04-25 20:28] LABS: ALT 13 U/L (4-49); AST 43 U/L (17-59); African American GFR (CKD) >90 (>60 ml/min/1.73 sqM); Albumin 3.8 g/dL (3.5-5.0); Alkaline Phosphatase 91 U/L (38-126); Anion Gap 10 mmol/L; Blood Urea Nitrogen 6 mg/dL (9-20); Calcium 8.4 mg/dL (8.4-10.2); Carbon Dioxide 22 mmol/L (22-30); Chloride 103 mmol/L (98-107); Glucose 95 mg/dL (74-99); Lipase 125 U/L (23-300); Magnesium 1.7 mg/dL (1.6-2.3); Non-African American GFR(CKD) >90 (>60 ml/min/1.73 sqM); Sodium 135 mmol/L (137-145); Total Bilirubin 0.4 mg/dL (0.2-1.3); Total Protein 6.8 g/dL (6.3-8.2)
[2021-04-25 20:41] LABS: Alcohol 364 mg/dL
--- NOTE | 2021-04-25 22:04 | ED ---
Alcohol HPI - General Chief Complaint: Alcohol Stated Complaint: ETOH Time Seen by Provider: 04/25/21 19:02 Source: patient, EMS, RN notes reviewed Mode of arrival: EMS Limitations: no limitations - History of Present Illness Initial Comments: This a 55-year-old male presents emergency department via EMS chief complaint alcohol intoxication, suicidal ideation. Patient states that he drank multiple beers today is a chronic alcoholic. Patient complaints that he is suicidal. Denies any recent drug abuse as a physical complaints. - Related Data Home Medications Medication Instructions Recorded Confirmed Acetaminophen [Tylenol] 650 mg PO Q4H PRN 02/18/21 04/25/21 Ticagrelor [Brilinta] 90 mg PO BID 02/18/21 04/25/21 lisinopriL [Zestril] 2.5 mg PO DAILY 02/18/21 04/25/21 Albuterol Inhaler [Ventolin Hfa 2 puff INHALATION RT-QID PRN 03/30/21 04/25/21 Inhaler] Aspirin EC [Ecotrin Low Dose] 81 mg PO DAILY 03/30/21 04/25/21 Atorvastatin [Lipitor] 80 mg PO HS 03/30/21 04/25/21 Fluticasone/Salmeterol [Advair 1 puff INHALATION RT-BID 03/30/21 04/25/21 100-50 Diskus] Nitroglycerin Sl Tabs [Nitrostat] 0.4 mg SL Q5M PRN 03/30/21 04/25/21 Spironolactone 25 mg PO DAILY 03/30/21 04/25/21 Tamsulosin HCl [Flomax] 0.4 mg PO HS 03/30/21 04/25/21 DULoxetine HCL [Cymbalta] 60 mg PO DAILY 04/12/21 04/25/21 Metoprolol Tartrate [Lopressor] 25 mg PO BID 04/12/21 04/25/21 Multivitamins, Thera [Multivitamin 1 tab PO DAILY 04/12/21 04/25/21 (formulary)] Naltrexone HCl [Revia] 50 mg PO DAILY 04/25/21 04/25/21 Previous Rx's Medication Instructions Recorded Nicotine 21Mg/24Hr Patch [Habitrol] 1 patch TRANSDERM DAILY 14 Days 04/04/21 patch Omeprazole 20 mg PO DAILY 30 Days #0 04/04/21 lamoTRIgine [LaMICtal] 100 mg PO BID 30 Days tab 04/04/21 Allergies Allergy/AdvReac Type Severity Reaction Status Date / Time No Known Allergies Allergy Verified 04/25/21 22:38 Review of Systems ROS Statement: Those systems with pertinent positive or pertinent negative responses have been documented in the HPI. ROS Other: All systems not noted in ROS Statement are negative. Past Medical History Past Medical History: COPD, GERD/Reflux, GI Bleed, Hypertension, Musculoskeletal Disorder, Pneumonia, Renal Disease, Skin Disorder Additional Past Medical History / Comment(s): ETOH abuse with delirium tremors, lower GI bleed, IBS, chronic iron deficiency anemia, hypomagnesemia, hyperbili rubinemia, anorexia, vertigo, nephrolithiasis-passed stone on his own, chronic low back/cervical pain, DDD, kyphosis, scoliosis, coccyx pressure ulcer pt states is mostly healed History of Any Multi-Drug Resistant Organisms: None Reported Past Surgical History: Bariatric Surgery, Hernia Repair, Orthopedic Surgery, Tonsillectomy Additional Past Surgical History / Comment(s): Right inner Forearm-metal plate, gastric bypass, incisional hernia surgery x2, EGDs, colonoscopies. Past Anesthesia/Blood Transfusion Reactions: No Reported Reaction Past Psychological History: Anxiety, Bipolar, Depression, PTSD Smoking Status: Current every day smoker Past Alcohol Use History: Abuse, Daily, Heavy Past Drug Use History: Cocaine, Heroin, Marijuana - Past Family History Mother Family Medical History: Hypertension Additional Family Medical History / Comment(s): Lupus. Mother is living. Father Family Medical History: Liver Disease Additional Family Medical History / Comment(s): ETOH abuse. of cirrhosis complications. General Exam Limitations: no limitations General appearance: alert, in no apparent distress, appears intoxicated Head exam: Present: atraumatic, normocephalic, normal inspection Neck exam: Present: normal inspection. Absent: tenderness, meningismus, lymphadenopathy Respiratory exam: Present: normal lung sounds bilaterally. Absent: respiratory distress, wheezes, rales, rhonchi, stridor Cardiovascular Exam: Present: regular rate, normal rhythm, normal heart sounds. Absent: systolic murmur, diastolic murmur, rubs, gallop, clicks GI/Abdominal exam: Present: soft, normal bowel sounds. Absent: distended, tenderness, guarding, rebound, rigid Course Vital Signs 04/25/21 18:52 Temperature 98.1 F Pulse Rate 81 Respiratory 18 Rate Blood Pressure 121/80 O2 Sat by Pulse 99 Oximetry Medical Decision Making - Medical Decision Making Patient be admitted for acute alcohol intoxication, possible withdraw, psychiatric evaluation - Lab Data Result diagrams: 04/25/21 19:38 04/25/21 19:38 Lab Results 04/25/21 04/25/21 04/25/21 Range/Units 19:38 19:38 19:38 WBC 6.3 (3.8-10.6) k/uL RBC 3.58 L (4.30-5.90) m/uL Hgb 11.3 L (13.0-17.5) gm/dL Hct 34.0 L (39.0-53.0) % MCV 94.8 (80.0-100.0) fL MCH 31.6 (25.0-35.0) pg MCHC 33.4 (31.0-37.0) g/dL RDW 16.5 H (11.5-15.5) % Plt Count 342 (150-450) k/uL MPV 7.8 Neutrophils % 57 % Lymphocytes % 29 % Monocytes % 9 % Eosinophils % 2 % Basophils % 1 % Neutrophils # 3.6 (1.3-7.7) k/uL Lymphocytes # 1.8 (1.0-4.8) k/uL Monocytes # 0.5 (0-1.0) k/uL Eosinophils # 0.1 (0-0.7) k/uL Basophils # 0.1 (0-0.2) k/uL Anisocytosis Slight Sodium 135 L (137-145) mmol/L Potassium 4.0 (3.5-5.1) mmol/L Chloride 103 (98-107) mmol/L Carbon Dioxide 22 (22-30) mmol/L Anion Gap 10 mmol/L BUN 6 L (9-20) mg/dL Creatinine 0.49 L (0.66-1.25) mg/dL Est GFR (CKD-EPI)AfAm >90 (>60 ml/min/1.73 sqM) Est GFR (CKD-EPI)NonAf >90 (>60 ml/min/1.73 sqM) Glucose 95 (74-99) mg/dL Calcium 8.4 (8.4-10.2) mg/dL Magnesium 1.7 (1.6-2.3) mg/dL Total Bilirubin 0.4 (0.2-1.3) mg/dL AST 43 (17-59) U/L ALT 13 (4-49) U/L Alkaline Phosphatase 91 (38-126) U/L Total Protein 6.8 (6.3-8.2) g/dL Albumin 3.8 (3.5-5.0) g/dL Lipase 125 (23-300) U/L Urine Opiates Screen Not Detected (NotDetected) Ur Oxycodone Screen Not Detected (NotDetected) Urine Methadone Screen Not Detected (NotDetected) Ur Propoxyphene Screen Not Detected (NotDetected) Ur Barbiturates Screen Not Detected (NotDetected) U Tricyclic Antidepress Not Detected (NotDetected) Ur Phencyclidine Scrn Not Detected (NotDetected) Ur Amphetamines Screen Not Detected (NotDetected) U Methamphetamines Scrn Not Detected (NotDetected) U Benzodiazepines Scrn Detected H (NotDetected) Urine Cocaine Screen Not Detected (NotDetected) U Marijuana (THC) Screen Not Detected (NotDetected) Serum Alcohol 364 H* mg/dL Disposition Clinical Impression: Suicidal ideation, Alcohol intoxication Disposition: ADMITTED IP TO THIS HOSP Condition: Fair Referrals: [facility] [Primary Care Provider] - 1-2 days
[2021-04-26] MEDS ORDERED: LORazepam 2 MG/ML INJ IV PRN ×3 (00:19)
[2021-04-26] MEDS ORDERED: NALOXONE 0.4 MG/ML 1 ML VIAL IV PRN (00:30)
[2021-04-26] MEDS ORDERED: SODIUM CHLORIDE 0.9% 1,000 ML with MVI, ADULT NO.4 WITH VIT K 10 ML, THIAMINE 100 MG, F... IV ONE ×4 (00:33)
[2021-04-26] MEDS ORDERED: ALBUTEROL NEBULIZED 2.5 MG/3 ML INHALATION PRN (11:40)
[2021-04-26] MEDS ORDERED: NITROGLYCERIN SL TABS 0.4 MG TAB SUBLINGUAL PRN (11:40)
[2021-04-26] MEDS ORDERED: ACETAMINOPHEN TAB 325 MG TAB PO PRN (11:40)
[2021-04-26] MEDS ORDERED: SPIRONOLACTONE 25 MG TAB PO SCH (12:15)
[2021-04-26] MEDS ORDERED: NICOTINE 21MG/24HR PATCH TRANSDERM SCH (12:15)
[2021-04-26] MEDS ORDERED: TICAGRELOR 90 MG TAB PO SCH (12:15)
[2021-04-26] MEDS ORDERED: METOPROLOL TARTRATE 25 MG TAB PO SCH (12:15)
[2021-04-26 12:35] VITALS: BP 150/77; PULSE 92; RESP 20; TEMP 98.7
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
[2021-04-26] MEDS ORDERED: DULoxetine HCL 30 MG CAPSULE.DR PO SCH (13:30)
[2021-04-26] MEDS ORDERED: lamoTRIgine 100 MG TAB PO SCH ×2 (13:30→21:00)
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
[2021-04-26] MEDS ORDERED: THIAMINE 100 MG TAB PO SCH (17:30)
[2021-04-26] MEDS ORDERED: SYMBICORT 80-4.5 MCG INHALER INHALATION SCH (20:00)
[2021-04-26] MEDS ORDERED: ATORVASTATIN 80 MG TAB PO SCH (21:00)
[2021-04-26] MEDS ORDERED: TAMSULOSIN 0.4 MG CAP.ER.24H PO SCH (21:00)
[2021-04-27] MEDS ORDERED: PANTOPRAZOLE 40 MG TABLET PO SCH (07:30)
[2021-04-27] MEDS ORDERED: DULoxetine HCL 60 MG CAPSULE.DR PO SCH (09:00)
[2021-04-27] MEDS ORDERED: MULTIVITAMINS, THERA 1 EACH TAB PO SCH (09:00)
[2021-04-27] MEDS ORDERED: ASPIRIN 81 MG PO SCH (09:00)
== END 2021-04-26 12:23 | disposition home or self-care (01) ==
LOC: EC 18:29 → 4SSUR 04-26 01:36
PROVIDERS: ADMIT Internal Medicine; ATTEND Internal Medicine
DX: F10.129 Alcohol abuse with intoxication, unspecified (principal); F31.9 Bipolar disorder, unspecified; R45.851 Suicidal ideations; F12.99 Cannabis use, unspecified with unspecified cannabis-induced disorder; F17.210 Nicotine dependence, cigarettes, uncomplicated; J44.9 Chronic obstructive pulmonary disease, unspecified; D50.9 Iron deficiency anemia, unspecified; I10 Essential (primary) hypertension; I48.0 Paroxysmal atrial fibrillation; I25.10 Atherosclerotic heart disease of native coronary artery without angina pectoris; K21.9 Gastro-esophageal reflux disease without esophagitis; G89.29 Other chronic pain; M54.5 Low back pain; I25.2 Old myocardial infarction; Y90.8 Blood alcohol level of 240 mg/100 ml or more; R78.4 Finding of other drugs of addictive potential in blood; M19.90 Unspecified osteoarthritis, unspecified site; K58.9 Irritable bowel syndrome, unspecified; L89.159 Pressure ulcer of sacral region, unspecified stage; M41.9 Scoliosis, unspecified; R63.0 Anorexia; M54.2 Cervicalgia; M40.209 Unspecified kyphosis, site unspecified; F43.10 Post-traumatic stress disorder, unspecified; F41.9 Anxiety disorder, unspecified; Z20.822 Contact with and (suspected) exposure to COVID-19; Z79.02 Long term (current) use of antithrombotics/antiplatelets; Z79.82 Long term (current) use of aspirin; Z79.51 Long term (current) use of inhaled steroids; Z79.899 Other long term (current) drug therapy; Z87.19 Personal history of other diseases of the digestive system; Z98.84 Bariatric surgery status; Z87.01 Personal history of pneumonia (recurrent); Z87.442 Personal history of urinary calculi; Z91.5 Personal history of self-harm; Z87.448 Personal history of other diseases of urinary system; Z98.890 Other specified postprocedural states; Z82.49 Family history of ischemic heart disease and other diseases of the circulatory system; Z81.1 Family history of alcohol abuse and dependence; Z81.8 Family history of other mental and behavioral disorders; Z84.89 Family history of other specified conditions; Z83.79 Family history of other diseases of the digestive system
CPT/HCPCS: 96376; 96365; 96366; 96375; 96361; 99285; 36415; 80053; 83690; 83735; 85025; 80306; 87635; G0378; G0480; J2060; J3411; 80320

== ENCOUNTER 2021-08-04 06:16 | Observation (INO) | payer MEDICARE, OTHER ==
[2021-08-04] MEDS ORDERED: SODIUM CHLORIDE 0.9% 2,000 ML IV STA (06:32)
[2021-08-04] MEDS ORDERED: LORazepam 2 MG/ML INJ IV STA (06:33)
[2021-08-04 06:57] LABS: Basophils % (A) 0 %; Eosinophils # (A) 0.1 k/uL (0-0.7); Eosinophils % (A) 1 %; HCT 36.9 % (39.0-53.0); HGB 12.1 gm/dL (13.0-17.5); Lymphocytes # (A) 1.3 k/uL (1.0-4.8); Lymphocytes % (A) 20 %; MCH 29.6 pg (25.0-35.0); MCHC 32.9 g/dL (31.0-37.0); MCV 89.9 fL (80.0-100.0); Mean Platelet Volume 7.5; Monocytes # (A) 0.5 k/uL (0-1.0); Monocytes % (A) 7 %; Neutrophils # (A) 4.8 k/uL (1.3-7.7); Neutrophils % (A) 70 %; Platelet Count 222 k/uL (150-450); RDW 15.7 % (11.5-15.5); WBC 6.8 k/uL (3.8-10.6)
[2021-08-04 07:09] LABS: ALT 25 U/L (4-49); Acetaminophen <10.0 ug/mL; African American GFR (CKD) >90 (>60 ml/min/1.73 sqM); Albumin 3.9 g/dL (3.5-5.0); Alcohol <10 mg/dL; Anion Gap 11 mmol/L; Blood Urea Nitrogen 9 mg/dL (9-20); Calcium 8.7 mg/dL (8.4-10.2); Carbon Dioxide 20 mmol/L (22-30); Chloride 92 mmol/L (98-107); Glucose 118 mg/dL (74-99); Non-African American GFR(CKD) >90 (>60 ml/min/1.73 sqM); Salicylate <1.0 mg/dL; Sodium 123 mmol/L (137-145); Total Bilirubin 1.2 mg/dL (0.2-1.3); Total Protein 7.1 g/dL (6.3-8.2)
--- NOTE | 2021-08-04 07:10 | ED ---
General Adult HPI - General Chief complaint: Weakness Stated complaint: weakness Time Seen by Provider: 08/04/21 06:25 Source: patient, family Mode of arrival: ambulatory Limitations: no limitations - History of Present Illness Initial comments: 55-year-old male with a past medical history of GERD, hypertension, COPD, chronic alcoholism presents to the emergency room for a chief complaint of not feeling well. Patient states that he had about 4 beers last night and shortly afterwards started to feel a little out of it. Patient states he wanted his roommate to take him to the ER but had to wait for him to go home. Patient unsure if he is withdrawing from alcohol or if he may have ingested drugs. Patient has no other complaints at this time including shortness of breath, chest pain, abdominal pain, nausea or vomiting, headache, or visual changes. - Related Data Home Medications Medication Instructions Recorded Confirmed Acetaminophen [Tylenol] 650 mg PO Q4H PRN 02/18/21 04/25/21 Ticagrelor [Brilinta] 90 mg PO BID 02/18/21 04/25/21 lisinopriL [Zestril] 2.5 mg PO DAILY 02/18/21 04/25/21 Albuterol Inhaler [Ventolin Hfa 2 puff INHALATION RT-QID PRN 03/30/21 04/25/21 Inhaler] Aspirin EC [Ecotrin Low Dose] 81 mg PO DAILY 03/30/21 04/25/21 Atorvastatin [Lipitor] 80 mg PO HS 03/30/21 04/25/21 Fluticasone/Salmeterol [Advair 1 puff INHALATION RT-BID 03/30/21 04/25/21 100-50 Diskus] Nitroglycerin Sl Tabs [Nitrostat] 0.4 mg SL Q5M PRN 03/30/21 04/25/21 Spironolactone 25 mg PO DAILY 03/30/21 04/25/21 Tamsulosin HCl [Flomax] 0.4 mg PO HS 03/30/21 04/25/21 DULoxetine HCL [Cymbalta] 60 mg PO DAILY 04/12/21 04/25/21 Metoprolol Tartrate [Lopressor] 25 mg PO BID 04/12/21 04/25/21 Multivitamins, Thera [Multivitamin 1 tab PO DAILY 04/12/21 04/25/21 (formulary)] Naltrexone HCl [Revia] 50 mg PO DAILY 04/25/21 04/25/21 Previous Rx's Medication Instructions Recorded Nicotine 21Mg/24Hr Patch [Habitrol] 1 patch TRANSDERM DAILY 14 Days 04/04/21 patch Omeprazole 20 mg PO DAILY 30 Days #0 04/04/21 lamoTRIgine [LaMICtal] 100 mg PO BID 30 Days tab 04/04/21 Thiamine [Vitamin B-1] 100 mg PO BID-W/MEALS #60 tab 04/26/21 Allergies Allergy/AdvReac Type Severity Reaction Status Date / Time No Known Allergies Allergy Verified 08/04/21 08:07 Review of Systems ROS Statement: Those systems with pertinent positive or pertinent negative responses have been documented in the HPI. ROS Other: All systems not noted in ROS Statement are negative. Past Medical History Past Medical History: COPD, GERD/Reflux, GI Bleed, Hypertension, Musculoskeletal Disorder, Pneumonia, Renal Disease, Skin Disorder Additional Past Medical History / Comment(s): ETOH abuse with delirium tremors, lower GI bleed, IBS, chronic iron deficiency anemia, hypomagnesemia, hyperbilirubinemia, anorexia, vertigo, nephrolithiasis-passed stone on his own, chronic low back/cervical pain, DDD, kyphosis, scoliosis, coccyx pressure ulcer pt states is mostly healed History of Any Multi-Drug Resistant Organisms: None Reported Past Surgical History: Bariatric Surgery, Hernia Repair, Orthopedic Surgery, Tonsillectomy Additional Past Surgical History / Comment(s): Right inner Forearm-metal plate, gastric bypass, incisional hernia surgery x2, EGDs, colonoscopies. Past Anesthesia/Blood Transfusion Reactions: No Reported Reaction Past Psychological History: Anxiety, Bipolar, Depression, PTSD Smoking Status: Current every day smoker Past Alcohol Use History: Abuse, Daily, Heavy Past Drug Use History: Cocaine, Heroin, Marijuana - Past Family History Mother Family Medical History: Hypertension Additional Family Medical History / Comment(s): Lupus. Mother is living. Father Family Medical History: Liver Disease Additional Family Medical History / Comment(s): ETOH abuse. of cirrhosis complications. General Exam Limitations: no limitations General appearance: alert, in no apparent distress Head exam: Present: atraumatic Eye exam: Present: normal appearance, PERRL, EOMI. Absent: scleral icterus, conjunctival injection ENT exam: Present: normal exam, mucous membranes moist Neck exam: Present: normal inspection, full ROM. Absent: tenderness, meningismus, lymphadenopathy Respiratory exam: Present: normal lung sounds bilaterally. Absent: respiratory distress, wheezes Cardiovascular Exam: Present: regular rate, normal rhythm, normal heart sounds GI/Abdominal exam: Present: soft, normal bowel sounds. Absent: distended, tenderness Neurological exam: Present: alert Course Vital Signs 08/04/21 08/04/21 08/04/21 06:17 06:52 07:17 Temperature 98.5 F Pulse Rate 120 H 98 76 Respiratory 24 18 18 Rate Blood Pressure 166/105 113/103 140/87 O2 Sat by Pulse 97 96 97 Oximetry EKG Findings - EKG Comments: EKG Findings:: Sinus rhythm, ventricular rate 94, NV interval 148, QTC 427 Medical Decision Making - Medical Decision Making Vitals are stable. Patient is tremulous. CBC is unremarkable. CMP does reveal hyponatremia of 123. Urinalysis does show evidence of urinary tract infection. Patient will be admitted for alcohol withdrawal and hyponatremia. Case discussed with Dr. Tavares who does accept admission. Requests IV fluids at 100 mls per hour normal saline as well as consult to Dr. Anderson. Requests Rocephin for UTI. - Lab Data Result diagrams: 08/04/21 06:46 08/04/21 06:46 Lab Results 08/04/21 08/04/21 08/04/21 Range/Units 06:46 06:46 06:46 WBC 6.8 (3.8-10.6) k/uL RBC 4.10 L (4.30-5.90) m/uL Hgb 12.1 L (13.0-17.5) gm/dL Hct 36.9 L (39.0-53.0) % MCV 89.9 (80.0-100.0) fL MCH 29.6 (25.0-35.0) pg MCHC 32.9 (31.0-37.0) g/dL RDW 15.7 H (11.5-15.5) % Plt Count 222 (150-450) k/uL MPV 7.5 Neutrophils % 70 % Lymphocytes % 20 % Monocytes % 7 % Eosinophils % 1 % Basophils % 0 % Neutrophils # 4.8 (1.3-7.7) k/uL Lymphocytes # 1.3 (1.0-4.8) k/uL Monocytes # 0.5 (0-1.0) k/uL Eosinophils # 0.1 (0-0.7) k/uL Basophils # 0.0 (0-0.2) k/uL Sodium 123 L (137-145) mmol/L Potassium 4.6 (3.5-5.1) mmol/L Chloride 92 L (98-107) mmol/L Carbon Dioxide 20 L (22-30) mmol/L Anion Gap 11 mmol/L BUN 9 (9-20) mg/dL Creatinine 0.50 L (0.66-1.25) mg/dL Est GFR (CKD-EPI)AfAm >90 (>60 ml/min/1.73 sqM) Est GFR (CKD-EPI)NonAf >90 (>60 ml/min/1.73 sqM) Glucose 118 H (74-99) mg/dL Calcium 8.7 (8.4-10.2) mg/dL Magnesium (1.6-2.3) mg/dL Total Bilirubin 1.2 (0.2-1.3) mg/dL AST 63 H (17-59) U/L ALT 25 (4-49) U/L Alkaline Phosphatase 77 (38-126) U/L Total Protein 7.1 (6.3-8.2) g/dL Albumin 3.9 (3.5-5.0) g/dL Urine Color Light Yellow Urine Appearance Clear (Clear) Urine pH 6.0 (5.0-8.0) Ur Specific [place] 1.003 (1.001-1.035) Urine Protein Negative (Negative) Urine Glucose (UA) Negative (Negative) Urine Ketones Negative (Negative) Urine Blood Small H (Negative) Urine Nitrite Negative (Negative) Urine Bilirubin Negative (Negative) Urine Urobilinogen 2.0 (<2.0) mg/dL Ur Leukocyte Esterase Large H (Negative) Urine RBC <1 (0-5) /hpf Urine WBC 29 H (0-5) /hpf Urine WBC Clumps Few H (None) /hpf Ur Squamous Epith Cells <1 (0-4) /hpf Amorphous Sediment Rare H (None) /hpf Urine Bacteria Many H (None) /hpf Salicylates <1.0 mg/dL Urine Opiates Screen Not Detected (NotDetected) Ur Oxycodone Screen Not Detected (NotDetected) Urine Methadone Screen Not Detected (NotDetected) Ur Propoxyphene Screen Not Detected (NotDetected) Acetaminophen <10.0 ug/mL Ur Barbiturates Screen Not Detected (NotDetected) U Tricyclic Antidepress Not Detected (NotDetected) Ur Phencyclidine Scrn Not Detected (NotDetected) Ur Amphetamines Screen Not Detected (NotDetected) U Methamphetamines Scrn Not Detected (NotDetected) U Benzodiazepines Scrn Not Detected (NotDetected) Urine Cocaine Screen Not Detected (NotDetected) U Marijuana (THC) Screen Not Detected (NotDetected) Serum Alcohol <10 mg/dL 08/04/21 Range/Units 06:46 WBC (3.8-10.6) k/uL RBC (4.30-5.90) m/uL Hgb (13.0-17.5) gm/dL Hct (39.0-53.0) % MCV (80.0-100.0) fL MCH (25.0-35.0) pg MCHC (31.0-37.0) g/dL RDW (11.5-15.5) % Plt Count (150-450) k/uL MPV Neutrophils % % Lymphocytes % % Monocytes % % Eosinophils % % Basophils % % Neutrophils # (1.3-7.7) k/uL Lymphocytes # (1.0-4.8) k/uL Monocytes # (0-1.0) k/uL Eosinophils # (0-0.7) k/uL Basophils # (0-0.2) k/uL Sodium (137-145) mmol/L Potassium (3.5-5.1) mmol/L Chloride (98-107) mmol/L Carbon Dioxide (22-30) mmol/L Anion Gap mmol/L BUN (9-20) mg/dL Creatinine (0.66-1.25) mg/dL Est GFR (CKD-EPI)AfAm (>60 ml/min/1.73 sqM) Est GFR (CKD-EPI)NonAf (>60 ml/min/1.73 sqM) Glucose (74-99) mg/dL Calcium (8.4-10.2) mg/dL Magnesium 1.3 L (1.6-2.3) mg/dL Total Bilirubin (0.2-1.3) mg/dL AST (17-59) U/L ALT (4-49) U/L Alkaline Phosphatase (38-126) U/L Total Protein (6.3-8.2) g/dL Albumin (3.5-5.0) g/dL Urine Color Urine Appearance (Clear) Urine pH (5.0-8.0) Ur Specific [place] (1.001-1.035) Urine Protein (Negative) Urine Glucose (UA) (Negative) Urine Ketones (Negative) Urine Blood (Negative) Urine Nitrite (Negative) Urine Bilirubin (Negative) Urine Urobilinogen (<2.0) mg/dL Ur Leukocyte Esterase (Negative) Urine RBC (0-5) /hpf Urine WBC (0-5) /hpf Urine WBC Clumps (None) /hpf Ur Squamous Epith Cells (0-4) /hpf Amorphous Sediment (None) /hpf Urine Bacteria (None) /hpf Salicylates mg/dL Urine Opiates Screen (NotDetected) Ur Oxycodone Screen (NotDetected) Urine Methadone Screen (NotDetected) Ur Propoxyphene Screen (NotDetected) Acetaminophen ug/mL Ur Barbiturates Screen (NotDetected) U Tricyclic Antidepress (NotDetected) Ur Phencyclidine Scrn (NotDetected) Ur Amphetamines Screen (NotDetected) U Methamphetamines Scrn (NotDetected) U Benzodiazepines Scrn (NotDetected) Urine Cocaine Screen (NotDetected) U Marijuana (THC) Screen (NotDetected) Serum Alcohol mg/dL Disposition Clinical Impression: Hyponatremia, Alcohol withdrawal, UTI (urinary tract infection) Disposition: ADMITTED IP TO THIS HOSP Is patient prescribed a controlled substance at d/c from ED?: No Referrals: [facility] [Primary Care Provider] - 1-2 days Time of Disposition: 08:08
[2021-08-04 07:11] LABS: Amorphous Sediment,Urine Rare /hpf; Appearance,Urine Clear (Clear); Bacteria,Urine Many /hpf; Bilirubin,Urine Negative (Negative); Blood,Urine Small (Negative); Color,Urine Light Yellow; Glucose,Urine (UA) Negative (Negative); Ketones,Urine Negative (Negative); Leukocyte Esterase,Urine Large (Negative); Nitrite,Urine Negative (Negative); Protein,Urine Negative (Negative); RBC,Urine <1 /hpf (0-5); Specific Gravity,Urine 1.003 (1.001-1.035); Squamous Epithelial Cell,Urine <1 /hpf (0-4); WBC,Urine 29 /hpf (0-5)
[2021-08-04 07:12] LABS: AST 63 U/L (17-59); Alkaline Phosphatase 77 U/L (38-126); Amphetamine Screen,Urine Not Detected (NotDetected); Barbiturate Screen,Urine Not Detected (NotDetected); Benzodiazepines Screen,Urine Not Detected (NotDetected); Cocaine Screen,Urine Not Detected (NotDetected); Methadone Screen, Urine Not Detected (NotDetected); Opiate Screen,Urine Not Detected (NotDetected); Oxycodone Screen, Urine Not Detected (NotDetected); Phencyclidine Screen,Urine Not Detected (NotDetected); Potassium 4.6 mmol/L (3.5-5.1); Tricyclic Antidepressant,Urine Not Detected (NotDetected); Urn Cannabinoid Scrn Not Detected (NotDetected)
[2021-08-04] MEDS ORDERED: ONDANSETRON 4 MG/2 ML VIAL IVP PRN (08:03)
[2021-08-04] MEDS ORDERED: ACETAMINOPHEN TAB 325 MG TAB PO PRN ×2 (08:03→17:21)
[2021-08-04] MEDS ORDERED: NALOXONE 0.4 MG/ML 1 ML VIAL IV PRN ×2 (08:03→08:04)
[2021-08-04] MEDS ORDERED: cefTRIAXone IN SWFI 1,000 MG/10 ML SYRINGE IVP STA (08:04)
[2021-08-04] MEDS ORDERED: THIAMINE 100 MG/ML 2 ML VIAL IM STA (08:05)
[2021-08-04] MEDS ORDERED: LORazepam 2 MG/ML INJ IV PRN ×6 (08:05→09:13)
[2021-08-04] MEDS ORDERED: MAGNESIUM OXIDE 400 MG TAB PO STA (08:07)
[2021-08-04] MEDS: SODIUM CHLORIDE 0.9% 1,000 ML IV SCH ×2 (08:52→21:27)
[2021-08-04] MEDS ORDERED: cefTRIAXone IN SWFI 1,000 MG/10 ML SYRINGE IVP SCH (09:00)
--- NOTE | 2021-08-04 15:00 | P.HPIM ---
History of Present Illness H&P Date: 08/04/21 HISTORY OF PRESENT ILLNESS This is a 55-year-old male patient of [facility] with past medical history of paroxysmal atrial fibrillation not on anticoagulation, and her artery disease with stent of the LAD, bipolar disorder, alcohol abuse, gastroesophageal reflux disease, COPD, nephrolithiasis, chronic low back pain gastric bypass, tobacco use and dependence. Patient sent in to the hospital complaining of feeling tired and weak and shaky. He denies having fever or chills, shortness of breath or cough. He did receive a vaccine booster in June. He complains of dysuria sometimes for the past month. He has a remote history of kidney stones. Regarding alcohol, he is drinking 4-5 beers per day and he does have history of alcohol seizure in the past about 4 years ago during a hospitalization. Patient is an active smoker. Patient came into [facility] emergency center for evaluation. On be afebrile initial heart rate 120 and resolved, blood pressure 166/105, pulse ox 97% on room air. The C6 0.8, hemoglobin 12.1. Sodium 123 and repeat 127 at 11 AM. Potassium 4.6, chloride 92, CO2 20, BUN 9 and creatinine 0.5. Blood sugar 118 years. Magnesium 1.3. AST 63. Urine culture is in progress. Coronavirus PCR detected. Patient is seen today in the emergency center waiting for a bed on the [facility] floor. REVIEW OF SYSTEMS At the time of evaluation: Constitutional: No fever, no chills, no night sweats. No weight change. Reports weakness, Reports fatigue or lethargy. Reports daytime sleepiness. EENT: No headache. No blurred vision or double vision, no loss of vision. No loss of Hearing, no ringing in the ears, no dizziness. No nasal drainage or congestion. No epistaxis. No sore throat. Lungs: No shortness of breath, cough, no sputum production. No wheezing. Cardiovascular: No chest pain, no lower extremity edema. No palpitations. No paroxysmal nocturnal dyspnea. No orthopnea. No lightheadedness or dizziness. No syncopal episodes. Abdominal: No abdominal pain. No nausea, vomiting. No diarrhea. No constipation. No bloody or tarry stools.. No loss of appetite. Genitourinary: Reports intermittent dysuria, increased frequency, urgency. No urinary retention. Musculoskeletal: No myalgias. Reports muscle weakness, no gait dysfunction, no frequent falls. Chronic back pain. No neck pain. Integumentary: No wounds, no lesions. No rash or pruritus. No unusual bruising. No change in hair or nails. Neurologic: No aphasia. No facial droop. No change in mentation. No head injury. No headache. No paralysis. No paresthesia. Psychiatric: No depression. No anxiety. No mood swings. Endocrine: No abnormal blood sugars. No weight change. SOCIAL HISTORY Patient is a smoker of one and a half to 2 packs a day for 43 years. He has history of alcohol abuse drinking 3/5 of vodka per day but states his last alcohol intake was 3 months ago. He uses marijuana occasionally. He does have history of IV drug abuse but has been clean for 4 1/2 years. He is single and lives in an apartment. FAMILY HISTORY Mother is alive at age 79 with history of coronary artery disease with 3 vessel CABG. Father at age 53 from cirrhosis of the liver. Patient has 1 brother that has no major medical problems that the patient is aware of. Patient has a daughter that is 26 years of age and a son that is 7 years of age with no major medical problems. PHYSICAL EXAMINATION Gen: This is a 55-year-old male patient. He is resting in ER stretcher and appears to be comfortable and in no acute distress. HEENT: Head is atraumatic, normocephalic. Pupils equal, round. Sclerae is anicteric. NECK: Supple. No JVD. No lymphadenopathy. No thyromegaly. LUNGS: Clear to auscultation. No wheezes or rhonchi. No intercostal retractions. HEART: Regular rate and rhythm. No murmur. ABDOMEN: Soft. Bowel sounds are present. No masses. No tenderness. EXTREMITIES: No pedal edema. No calf tenderness. NEUROLOGICAL: Patient is awake, alert and oriented x3. Cranial nerves 2 through 12 are grossly intact. ASSESSMENT AND PLAN 1. Acute urinary tract infection. Continue ceftriaxone, urine culture 2. COVID19 infection. 3. Tobacco use and dependence. Patient declines need for nicotine patch. 4. Alcohol abuse, stable. 5. Hypertension. Continue lisinopril and Lopressor, Aldactone 25 mg daily. 6. History of paroxysmal atrial fibrillation. No anticoagulation. 7. Bipolar disorder. Continue Cymbalta 60 mg daily, Lamictal 100 mg twice daily. 8. COPD without exacerbation. Continue albuterol inhaler 2 puffs every 4 hours as needed, Symbicort 2 puffs twice daily. GI prophylaxis DVT prophylaxis. Patient will be admitted to the hospital for a minimum of 2 night stay. DISCHARGE PLAN Home. Impression and plan of care have been directed as dictated by the signing physician. Darshana Valenzuela nurse practitioner acting as scribe for signing physici an. Past Medical History Past Medical History: COPD, GERD/Reflux, GI Bleed, Hypertension, Musculoskeletal Disorder, Pneumonia, Renal Disease, Skin Disorder Additional Past Medical History / Comment(s): ETOH abuse with delirium tremors, lower GI bleed, IBS, chronic iron deficiency anemia, hypomagnesemia, hyperbilirubinemia, anorexia, vertigo, nephrolithiasis-passed stone on his own, chronic low back/cervical pain, DDD, kyphosis, scoliosis, coccyx pressure ulcer pt states is mostly healed History of Any Multi-Drug Resistant Organisms: None Reported Past Surgical History: Bariatric Surgery, Hernia Repair, Orthopedic Surgery, Tonsillectomy Additional Past Surgical History / Comment(s): Right inner Forearm-metal plate, gastric bypass, incisional hernia surgery x2, EGDs, colonoscopies. Past Anesthesia/Blood Transfusion Reactions: No Reported Reaction Past Psychological History: Anxiety, Bipolar, Depression, PTSD Smoking Status: Current every day smoker Past Alcohol Use History: Abuse, Daily, Heavy Past Drug Use History: Cocaine, Heroin, Marijuana - Past Family History Mother Family Medical History: Hypertension Additional Family Medical History / Comment(s): Lupus. Mother is living. Father Family Medical History: Liver Disease Additional Family Medical History / Comment(s): ETOH abuse. of cirrhosis complications. Medications and Allergies Home Medications Medication Instructions Recorded Confirmed Type Acetaminophen [Tylenol] 650 mg PO Q4H PRN 02/18/21 08/04/21 History Ticagrelor [Brilinta] 90 mg PO BID 02/18/21 08/04/21 History lisinopriL [Zestril] 2.5 mg PO DAILY 02/18/21 08/04/21 History Albuterol Inhaler [Ventolin Hfa 2 puff INHALATION RT-QID PRN 03/30/21 08/04/21 History Inhaler] Aspirin EC [Ecotrin Low Dose] 81 mg PO DAILY 03/30/21 08/04/21 History Atorvastatin [Lipitor] 80 mg PO HS 03/30/21 08/04/21 History Fluticasone/Salmeterol [Advair 1 puff INHALATION RT-BID 03/30/21 08/04/21 History 100-50 Diskus] Nitroglycerin Sl Tabs [Nitrostat] 0.4 mg SL Q5M PRN 03/30/21 08/04/21 History Spironolactone 25 mg PO DAILY 03/30/21 08/04/21 History Omeprazole 20 mg PO DAILY 30 Days #0 04/04/21 08/04/21 Rx lamoTRIgine [LaMICtal] 100 mg PO BID 30 Days tab 04/04/21 08/04/21 Rx DULoxetine HCL [Cymbalta] 60 mg PO DAILY 04/12/21 08/04/21 History Metoprolol Tartrate [Lopressor] 25 mg PO BID 04/12/21 08/04/21 History Multivitamins, Thera [Multivitamin 1 tab PO DAILY 04/12/21 08/04/21 History (formulary)] Ascorbic Acid [Vitamin C] 500 mg PO DAILY tab 08/05/21 Rx Pantoprazole [Protonix] 40 mg PO AC-BRKFST #30 tab 08/05/21 Rx Thiamine [Vitamin B-1] 100 mg PO BID-W/MEALS tab 08/05/21 Rx Zinc Sulfate [Orazinc] 220 mg PO DAILY cap 08/05/21 Rx Allergies Allergy/AdvReac Type Severity Reaction Status Date / Time No Known Allergies Allergy Verified 08/04/21 08:07 Physical Exam Vitals: Vital Signs Temp Pulse Resp BP Pulse Ox 08/04/21 10:12 78 16 101/66 97 08/04/21 08:45 90 18 135/89 97 08/04/21 07:17 76 18 140/87 97 08/04/21 06:52 98 18 113/103 96 08/04/21 06:17 98.5 F 120 H 24 166/105 97 Intake and Output 08/03/21 08/04/21 08/04/21 22:59 06:59 14:59 Other: Weight 77.111 kg Results CBC & Chem 7: 08/04/21 06:46 08/04/21 17:00 Labs: Abnormal Lab Results - Last 24 Hours (Table) 08/04/21 08/04/21 08/04/21 Range/Units 06:46 06:46 06:46 RBC 4.10 L (4.30-5.90) m/uL Hgb 12.1 L (13.0-17.5) gm/dL Hct 36.9 L (39.0-53.0) % RDW 15.7 H (11.5-15.5) % Sodium 123 L (137-145) mmol/L Chloride 92 L (98-107) mmol/L Carbon Dioxide 20 L (22-30) mmol/L Creatinine 0.50 L (0.66-1.25) mg/dL Glucose 118 H (74-99) mg/dL Magnesium (1.6-2.3) mg/dL AST 63 H (17-59) U/L Urine Blood Small H (Negative) Ur Leukocyte Esterase Large H (Negative) Urine WBC 29 H (0-5) /hpf Urine WBC Clumps Few H (None) /hpf Amorphous Sediment Rare H (None) /hpf Urine Bacteria Many H (None) /hpf Coronavirus (PCR) (Not Detectd) 08/04/21 08/04/21 Range/Units 06:46 08:08 RBC (4.30-5.90) m/uL Hgb (13.0-17.5) gm/dL Hct (39.0-53.0) % RDW (11.5-15.5) % Sodium (137-145) mmol/L Chloride (98-107) mmol/L Carbon Dioxide (22-30) mmol/L Creatinine (0.66-1.25) mg/dL Glucose (74-99) mg/dL Magnesium 1.3 L (1.6-2.3) mg/dL AST (17-59) U/L Urine Blood (Negative) Ur Leukocyte Esterase (Negative) Urine WBC (0-5) /hpf Urine WBC Clumps (None) /hpf Amorphous Sediment (None) /hpf Urine Bacteria (None) /hpf Coronavirus (PCR) Detected A (Not Detectd)
--- NOTE | 2021-08-04 16:10 | CONS ---
CONSULTATION REASON FOR CONSULTATION: Hyponatremia. HISTORY OF PRESENT ILLNESS: Patient is a 55-year-old male who has a history of hypertension, COPD, gastroesophageal reflux disease, history of chronic ETOH abuse. He was admitted to the hospital with complaints of nausea, vomiting and weakness. He had about 4 beers last night. Patient tested positive for coronavirus PCR. I do not have a chest x-ray. Serum sodium was 123 on admission. Patient has been receiving IV saline and his repeat sodium about 4 hours later is up to 127. Patient denies any prior history of hyponatremia. PAST MEDICAL HISTORY: Hypertension, dyslipidemia, gastroesophageal reflux disease. PAST SURGICAL HISTORY: Right inner forearm metal plate, history of gastric bypass surgery, incisional hernia repair, colonoscopies, EGDs. SOCIAL HISTORY: Patient smokes daily. There is history of EtOH use as well and previous history of cocaine, heroin and marijuana use. MEDICATIONS: Medications prior to admission included Advair, spironolactone, Flomax, Cymbalta, Lopressor, Lamictal, omeprazole, nicotine patch, aspirin, lisinopril, Brilinta, Tylenol. ALLERGIES: NONE. REVIEW OF SYSTEMS: As per HPI. Other systems negative. PHYSICAL EXAMINATION: Patient is comfortable, awake, not in any acute distress. Blood pressure 101/66, heart rate 78 per minute. Patient is afebrile. Examination of lower extremities shows no evidence of edema. CHECK EMBOSSER exam grossly intact. Heart and lungs are not examined. Labs show sodium 123, potassium 4.6, chloride 92. CO2 is 20, BUN 9, serum creatinine 0.5, hemoglobin 12.1 g/dL. UA shows WBCs 29. ASSESSMENT: 1. Hyponatremia, mostly hypovolemic and also associated with EtOH use, currently improving with normal saline. I will continue with the saline for now. Repeat sodium again this evening. Increase oral protein intake. 2. Coronavirus PCR positive. No respiratory symptoms. Consider obtaining chest x- ray. Oxygen saturations are 97% on room air. 3. History of EtOH abuse. 4. Asymptomatic pyuria. PLAN: Continue with saline. Check urine osmolality. Encourage increased oral intake, particularly protein. Repeat sodium later on this evening. Thank you for this consultation. Will continue to follow the patient with you during his hospitalization. MMODL / IJN: [id number] /
[2021-08-04] MEDS ORDERED: NITROGLYCERIN SL TABS 0.4 MG TAB SUBLINGUAL PRN (17:21)
[2021-08-04] MEDS ORDERED: ALBUTEROL HFA INHALER INHALATION PRN (17:21)
[2021-08-04] MEDS ORDERED: THIAMINE 100 MG TAB PO SCH (17:30)
[2021-08-04] MEDS: THIAMINE 100 MG TAB PO SCH (17:34)
[2021-08-04] MEDS: TICAGRELOR 90 MG TAB PO SCH (19:55)
[2021-08-04] MEDS: METOPROLOL TARTRATE 25 MG TAB PO SCH (19:55)
[2021-08-04] MEDS: lamoTRIgine 100 MG TAB PO SCH (19:55)
[2021-08-04] MEDS ORDERED: ATORVASTATIN 80 MG TAB PO SCH (21:00)
[2021-08-04] MEDS: SYMBICORT 160-4.5 MCG INHALER INHALATION SCH (21:22)
[2021-08-04] MEDS: Salmeterol 50 mcg INHALER INHALATION SCH (21:22)
[2021-08-05 02:02] VITALS: TEMP 98.1
[2021-08-05] MEDS ORDERED: PANTOPRAZOLE 40 MG TABLET PO SCH (07:30)
[2021-08-05] MEDS ORDERED: MULTIVITAMINS, THERA 1 EACH TAB PO SCH (09:00)
[2021-08-05] MEDS ORDERED: ZINC SULFATE 220 MG CAP PO SCH (09:00)
[2021-08-05] MEDS ORDERED: ASPIRIN 81 MG PO SCH (09:00)
[2021-08-05] MEDS ORDERED: SPIRONOLACTONE 25 MG TAB PO SCH (09:00)
[2021-08-05] MEDS ORDERED: ASCORBIC ACID 500 MG TAB PO SCH (09:00)
[2021-08-05] MEDS ORDERED: DULoxetine HCL 60 MG CAPSULE.DR PO SCH (09:00)
[2021-08-05] MEDS: METOPROLOL TARTRATE 25 MG TAB PO SCH (09:05)
[2021-08-05] MEDS: THIAMINE 100 MG TAB PO SCH (09:05)
[2021-08-05] MEDS: lamoTRIgine 100 MG TAB PO SCH (09:06)
[2021-08-05] MEDS: TICAGRELOR 90 MG TAB PO SCH (09:06)
[2021-08-05] MEDS: SODIUM CHLORIDE 0.9% 1,000 ML IV SCH (09:07)
--- NOTE | 2021-08-05 09:54 | P.DS ---
Providers Date of admission: 08/04/21 08:05 Expected date of discharge: 08/05/21 Attending physician: Fang Tavares Consults: 08/04/21 08:03 Consult Physician Routine Consulting Provider: Purvi Anderson Consult Reason/Comments: hyponatremia Do you want consulting provider notified?: Yes Primary care physician: [facility] Course: HISTORY OF PRESENT ILLNESS This is a 55-year-old male patient of [facility] with past medical history of paroxysmal atrial fibrillation not on anticoagulation, and her artery disease with stent of the LAD, bipolar disorder, alcohol abuse, gastroesophageal reflux disease, COPD, nephrolithiasis, chronic low back pain gastric bypass, tobacco use and dependence. Patient sent in to the hospital complaining of feeling tired and weak and shaky. He denies having fever or chills, shortness of breath or cough. He did receive a vaccine booster in June. He complains of dysuria sometimes for the past month. He has a remote history of kidney stones. Regarding alcohol, he is drinking 4-5 beers per day and he does have history of alcohol seizure in the past about 4 years ago during a hospitalization. Patient is an active smoker. Patient came into [facility] emergency center for evaluation. On be afebrile initial heart rate 120 and resolved, blood pressure 166/105, pulse ox 97% on room air. The C6 0.8, hemoglobin 12.1. Sodium 123 and repeat 127 at 11 AM. Potassium 4.6, chloride 92, CO2 20, BUN 9 and creatinine 0.5. Blood sugar 118 years. Magnesium 1.3. AST 63. Urine culture is in progress. Coronavirus PCR detected. Patient is seen today in the emergency center waiting for a bed on the Med[facility] floor. 08/05: Patient has been seen by nephrology for hyponatremia with recommendations to continue saline and increase oral intake especially protein. Recheck of sodium yesterday was 127 followed by 131. Due to Covid, patient will be ordered for 1 dose of Bamlanivimab and then patient will be discharged home today in stable condition. Urine culture is in process. Previous urine culture was E. coli pansensitive. DISCHARGE DIAGNOSES 1. Acute urinary tract infection. 2. COVID19 infection. 3. Tobacco use and dependence. 4. Alcohol abuse, stable. 5. Hypertension. 6. History of paroxysmal atrial fibrillation. 7. Bipolar disorder. 8. COPD without exacerbation. DISCHARGE PLAN Home. Greater than 35 minutes was utilized and coordinating patient's discharge. Impression and plan of care have been directed as dictated by the signing physician. Darshana Valenzuela nurse practitioner acting as scribe for signing physician. Patient Condition at Discharge: Good Plan - Discharge Summary Discharge Rx Participant: No New Discharge Prescriptions: New Zinc Sulfate [Orazinc] 220 mg PO DAILY cap Pantoprazole [Protonix] 40 mg PO AC-BRKFST #30 tab Ascorbic Acid [Vitamin C] 500 mg PO DAILY tab Cefuroxime Axetil [Ceftin] 500 mg PO BID 10 Days #30 tab Thiamine [Vitamin B-1] 100 mg PO BID-W/MEALS tab Continue Acetaminophen [Tylenol] 650 mg PO Q4H PRN PRN Reason: Fever And/ Or Pain lisinopriL [Zestril] 2.5 mg PO DAILY Fluticasone/Salmeterol [Advair 100-50 Diskus] 1 puff INHALATION RT-BID Spironolactone 25 mg PO DAILY Atorvastatin [Lipitor] 80 mg PO HS Albuterol Inhaler [Ventolin Hfa Inhaler] 2 puff INHALATION RT-QID PRN PRN Reason: Shortness Of Breath lamoTRIgine [LaMICtal] 100 mg PO BID 30 Days tab Omeprazole 20 mg PO DAILY 30 Days #0 Multivitamins, Thera [Multivitamin (formulary)] 1 tab PO DAILY Ticagrelor [Brilinta] 90 mg PO BID Aspirin EC [Ecotrin Low Dose] 81 mg PO DAILY Nitroglycerin Sl Tabs [Nitrostat] 0.4 mg SL Q5M PRN PRN Reason: Chest Pain DULoxetine HCL [Cymbalta] 60 mg PO DAILY Metoprolol Tartrate [Lopressor] 25 mg PO BID Discharge Medication List Acetaminophen [Tylenol] 650 mg PO Q4H PRN 02/18/21 [History] Ticagrelor [Brilinta] 90 mg PO BID 02/18/21 [History] lisinopriL [Zestril] 2.5 mg PO DAILY 02/18/21 [History] Albuterol Inhaler [Ventolin Hfa Inhaler] 2 puff INHALATION RT-QID PRN 03/30/21 [History] Aspirin EC [Ecotrin Low Dose] 81 mg PO DAILY 03/30/21 [History] Atorvastatin [Lipitor] 80 mg PO HS 03/30/21 [History] Fluticasone/Salmeterol [Advair 100-50 Diskus] 1 puff INHALATION RT-BID 03/30/21 [History] Nitroglycerin Sl Tabs [Nitrostat] 0.4 mg SL Q5M PRN 03/30/21 [History] Spironolactone 25 mg PO DAILY 03/30/21 [History] Omeprazole 20 mg PO DAILY 30 Days #0 04/04/21 [Rx] lamoTRIgine [LaMICtal] 100 mg PO BID 30 Days tab 04/04/21 [Rx] DULoxetine HCL [Cymbalta] 60 mg PO DAILY 04/12/21 [History] Metoprolol Tartrate [Lopressor] 25 mg PO BID 04/12/21 [History] Multivitamins, Thera [Multivitamin (formulary)] 1 tab PO DAILY 04/12/21 [Hi story] Ascorbic Acid [Vitamin C] 500 mg PO DAILY tab 08/05/21 [Rx] Cefuroxime Axetil [Ceftin] 500 mg PO BID 10 Days #30 tab 08/05/21 [Rx] Pantoprazole [Protonix] 40 mg PO AC-BRKFST #30 tab 08/05/21 [Rx] Thiamine [Vitamin B-1] 100 mg PO BID-W/MEALS tab 08/05/21 [Rx] Zinc Sulfate [Orazinc] 220 mg PO DAILY cap 08/05/21 [Rx] Follow up Appointment(s)/Referral(s): [facility] [Primary Care Provider] - 08/30/21 2:30 pm Discharge Disposition: HOME SELF-CARE
[2021-08-05] MEDS ORDERED: BAMLANIVIMAB (EUA) 700 MG, ETESEVIMAB (EUA) 1,400 MG in SODIUM CHLORIDE 0.9% 100 ML IVPB ONE (11:00)
[2021-08-05 11:10] VITALS: RESP 16
[2021-08-05] MEDS ORDERED: SODIUM CHLORIDE 0.9% 50 ML IVPB ONE (11:30)
[2021-08-05] MEDS: SYMBICORT 160-4.5 MCG INHALER INHALATION SCH (12:09)
[2021-08-05] MEDS: Salmeterol 50 mcg INHALER INHALATION SCH (12:09)
[2021-08-05 12:50] VITALS: BP 117/74; PULSE 74
[2021-08-05 13:59] VITALS: BMI 25.8
--- NOTE | 2021-08-05 18:14 | PN ---
PROGRESS NOTE Patient is seen for followup for hyponatremia which was mostly hypovolemic and associated with excessive beer intake. The patient's sodium improved with normal saline administration. This morning he is comfortable, denies any significant complaints. There are plans for discharge. EXAMINATION: Today blood pressure 127/85, heart rate 72 per minute, he is afebrile. Examination shows patient is awake, alert, oriented x3. OPEN CUT EXAMINER exam grossly intact. Lungs and heart are not examined. LAB: Show sodium 131 from yesterday, 08/04/2021 at 5:00 pm. PLAN: The patient is advised to avoid excessive consumption of beer, maintain good oral protein intake and repeat labs as outpatient. MMODL / IJN: [id number] /
== END 2021-08-05 15:34 | disposition home or self-care (01) ==
LOC: EC 06:16 → 5NMEDONC 08:05 → INTOOBSV 08:05 → 4SSUR 10:23 → UNDODISIN 08-05 15:34
PROVIDERS: ADMIT Family Medicine; ATTEND Family Medicine
DX: N39.0 Urinary tract infection, site not specified (principal); U07.1 COVID-19; I48.0 Paroxysmal atrial fibrillation; E87.1 Hypo-osmolality and hyponatremia; J44.9 Chronic obstructive pulmonary disease, unspecified; F31.9 Bipolar disorder, unspecified; I10 Essential (primary) hypertension; K21.9 Gastro-esophageal reflux disease without esophagitis; G89.29 Other chronic pain; M54.59 Other low back pain; E86.1 Hypovolemia; F17.210 Nicotine dependence, cigarettes, uncomplicated; F10.139 Alcohol abuse with withdrawal, unspecified; E78.5 Hyperlipidemia, unspecified; R11.2 Nausea with vomiting, unspecified; F41.9 Anxiety disorder, unspecified; F43.10 Post-traumatic stress disorder, unspecified; E83.42 Hypomagnesemia; D50.9 Iron deficiency anemia, unspecified; K58.9 Irritable bowel syndrome, unspecified; Z71.9 Counseling, unspecified; Z95.5 Presence of coronary angioplasty implant and graft; Z87.442 Personal history of urinary calculi; Z87.898 Personal history of other specified conditions; Z87.01 Personal history of pneumonia (recurrent); Z87.19 Personal history of other diseases of the digestive system; Z79.82 Long term (current) use of aspirin; Z79.899 Other long term (current) drug therapy; Z79.02 Long term (current) use of antithrombotics/antiplatelets; Z98.84 Bariatric surgery status; Z82.49 Family history of ischemic heart disease and other diseases of the circulatory system; Z81.1 Family history of alcohol abuse and dependence; Z83.79 Family history of other diseases of the digestive system
CPT/HCPCS: 96376; 96361 ×3; 96365; 96372; 96375; 99285; 36415; 94640 ×2; 93005; 80053; 83735; 84295; 85025; 81001; 83935; 80306; 80143; 87086; 87077; 87186; 87635; 80179; G0378 ×3; G0480; J2060; J3411; J0696 ×2; J3490; 80320; 96374

== ENCOUNTER 2021-09-05 08:34 | Observation (INO) | payer MEDICARE, OTHER ==
[2021-09-05] MEDS ORDERED: LORazepam 2 MG/ML INJ IV STA ×2 (09:04→11:25)
[2021-09-05] MEDS ORDERED: SODIUM CHLORIDE 0.9% 500 ML 500 ML IV STA ×2 (09:04→10:31)
[2021-09-05] MEDS ORDERED: THIAMINE 100 MG/ML 2 ML VIAL IM STA (09:04)
--- NOTE | 2021-09-05 09:07 | ED ---
General Adult HPI - General Chief complaint: Alcohol Stated complaint: ETOH Time Seen by Provider: 09/05/21 08:43 Source: patient, EMS, RN notes reviewed Mode of arrival: EMS Limitations: no limitations - History of Present Illness Initial comments: Patient is a pleasant 55-year-old male presenting to the emergency department with general weakness. Patient states he has been feeling weak ever since he was discharged following COVID-19 infection a few weeks ago. Patient states when he drinks alcohol but makes things worse. Patient was taking alcohol again yesterday. Patient feels shaky at this time. Patient feels weak all over and is having difficulty with walking. No isolated area of weakness or confusion. - Related Data Home Medications Medication Instructions Recorded Confirmed Acetaminophen [Tylenol] 650 mg PO Q4H PRN 02/18/21 09/05/21 Ticagrelor [Brilinta] 90 mg PO BID 02/18/21 09/05/21 lisinopriL [Zestril] 2.5 mg PO DAILY 02/18/21 09/05/21 Albuterol Inhaler [Ventolin Hfa 2 puff INHALATION RT-QID PRN 03/30/21 09/05/21 Inhaler] Aspirin EC [Ecotrin Low Dose] 81 mg PO DAILY 03/30/21 09/05/21 Atorvastatin [Lipitor] 80 mg PO HS 03/30/21 09/05/21 Fluticasone/Salmeterol [Advair 1 puff INHALATION RT-BID 03/30/21 09/05/21 100-50 Diskus] Nitroglycerin Sl Tabs [Nitrostat] 0.4 mg SL Q5M PRN 03/30/21 09/05/21 Spironolactone 25 mg PO DAILY 03/30/21 09/05/21 DULoxetine HCL [Cymbalta] 60 mg PO DAILY 04/12/21 09/05/21 Metoprolol Tartrate [Lopressor] 25 mg PO BID 04/12/21 09/05/21 Multivitamins, Thera [Multivitamin 1 tab PO DAILY 04/12/21 09/05/21 (formulary)] Naltrexone HCl [Revia] 50 mg PO DAILY 09/05/21 09/05/21 Previous Rx's Medication Instructions Recorded Omeprazole 20 mg PO DAILY 30 Days #0 04/04/21 lamoTRIgine [LaMICtal] 100 mg PO BID 30 Days tab 04/04/21 Allergies Allergy/AdvReac Type Severity Reaction Status Date / Time No Known Allergies Allergy Verified 09/05/21 11:19 Review of Systems ROS Statement: Those systems with pertinent positive or pertinent negative responses have been documented in the HPI. ROS Other: All systems not noted in ROS Statement are negative. Constitutional: Denies: fever Eyes: Denies: eye pain ENT: Denies: ear pain Respiratory: Denies: cough Cardiovascular: Denies: chest pain Endocrine: Reports: fatigue Gastrointestinal: Denies: abdominal pain, vomiting Genitourinary: Denies: dysuria Musculoskeletal: Denies: back pain Skin: Denies: rash Neurological: Reports: as per HPI Past Medical History Past Medical History: COPD, GERD/Reflux, GI Bleed, Hypertension, Musculoskeletal Disorder, Pneumonia, Renal Disease, Skin Disorder Additional Past Medical History / Comment(s): ETOH abuse with delirium tremors, lower GI bleed, IBS, chronic iron deficiency anemia, hypomagnesemia, hyperbilirubinemia, anorexia, vertigo, nephrolithiasis-passed stone on his own, chronic low back/cervical pain, DDD, kyphosis, scoliosis, coccyx pressure ulcer pt states is mostly healed Last Myocardial Infarction Date:: 12/25/20 History of Any Multi-Drug Resistant Organisms: None Reported Past Surgical History: Bariatric Surgery, Hernia Repair, Orthopedic Surgery, Tonsillectomy Additional Past Surgical History / Comment(s): Right inner Forearm-metal plate, gastric bypass, incisional hernia surgery x2, EGDs, colonoscopies. Past Anesthesia/Blood Transfusion Reactions: No Reported Reaction Date of Last Stent Placement:: 12/25/20 Past Psychological History: Anxiety, Bipolar, Depression, PTSD Smoking Status: Current every day smoker Past Alcohol Use History: Abuse, Daily, Heavy Past Drug Use History: Cocaine, Heroin, Marijuana - Past Family History Mother Family Medical History: Hypertension Additional Family Medical History / Comment(s): Lupus. Mother is living. Father Family Medical History: Liver Disease Additional Family Medical History / Comment(s): ETOH abuse. of cirrhosis complications. General Exam Limitations: no limitations General appearance: alert, in no apparent distress, other (Patient does have mild resting tremor) Head exam: Present: atraumatic, normocephalic Eye exam: Present: normal appearance, PERRL ENT exam: Present: normal oropharynx Neck exam: Present: normal inspection Respiratory exam: Present: normal lung sounds bilaterally Cardiovascular Exam: Present: regular rate, normal rhythm GI/Abdominal exam: Present: soft. Absent: tenderness Extremities exam: Present: normal inspection. Absent: pedal edema, calf tenderness Neurological exam: Present: alert, oriented X3, CN II-XII intact. Absent: motor sensory deficit Expanded Neurological exam: Present: protecting the airway Speech: Present: fluid speech Sensory exam: Upper Extremity Light Touch: Normal, Lower Extremity Light Touch: Normal Motor strength exam: RUE: 5, LUE: 5, RLE: 5, LLE: 5 Eye Response: (4) open spontaneously Motor Response: (6) obeys commands Verbal Response: (5) oriented Psychiatric exam: Present: normal affect, normal mood Skin exam: Present: normal color Course Vital Signs 09/05/21 08:36 Temperature 98.3 F Pulse Rate 96 Respiratory 18 Rate Blood Pressure 157/85 O2 Sat by Pulse 99 Oximetry Medical Decision Making - Medical Decision Making Patient reevaluated. Patient still unable to stand up on his own despite 2 of Ativan. Patient is shaky. Patient admits to drinking much more alcohol the l ast couple of days. Case discussed with Dr. Saxena, who will admit [facility]. She does agree with ordering computed tomography scan. - Lab Data Result diagrams: 09/05/21 09:30 09/05/21 09:30 Lab Results 09/05/21 09/05/21 09/05/21 Range/Units 09:29 09:30 09:30 WBC 6.7 (3.8-10.6) k/uL RBC 4.04 L (4.30-5.90) m/uL Hgb 11.9 L (13.0-17.5) gm/dL Hct 37.0 L (39.0-53.0) % MCV 91.7 (80.0-100.0) fL MCH 29.5 (25.0-35.0) pg MCHC 32.2 (31.0-37.0) g/dL RDW 17.4 H (11.5-15.5) % Plt Count 294 (150-450) k/uL MPV 7.3 Neutrophils % 76 % Lymphocytes % 14 % Monocytes % 6 % Eosinophils % 2 % Basophils % 1 % Neutrophils # 5.0 (1.3-7.7) k/uL Lymphocytes # 0.9 L (1.0-4.8) k/uL Monocytes # 0.4 (0-1.0) k/uL Eosinophils # 0.1 (0-0.7) k/uL Basophils # 0.0 (0-0.2) k/uL Anisocytosis Slight Sodium 129 L (137-145) mmol/L Potassium 4.4 (3.5-5.1) mmol/L Chloride 97 L (98-107) mmol/L Carbon Dioxide 22 (22-30) mmol/L Anion Gap 10 mmol/L BUN 8 L (9-20) mg/dL Creatinine 0.46 L (0.66-1.25) mg/dL Est GFR (CKD-EPI)AfAm >90 (>60 ml/min/1.73 sqM) Est GFR (CKD-EPI)NonAf >90 (>60 ml/min/1.73 sqM) Glucose 101 H (74-99) mg/dL Calcium 8.8 (8.4-10.2) mg/dL Magnesium 1.6 (1.6-2.3) mg/dL Total Bilirubin 1.0 (0.2-1.3) mg/dL AST 59 (17-59) U/L ALT 23 (4-49) U/L Alkaline Phosphatase 79 (38-126) U/L Total Protein 7.1 (6.3-8.2) g/dL Albumin 3.9 (3.5-5.0) g/dL Amylase 62 (30-110) U/L Lipase 86 (23-300) U/L Urine Color Light Yellow Urine Appearance Clear (Clear) Urine pH 5.5 (5.0-8.0) Ur Specific [place] 1.003 (1.001-1.035) Urine Protein Negative (Negative) Urine Glucose (UA) Negative (Negative) Urine Ketones Negative (Negative) Urine Blood Negative (Negative) Urine Nitrite Negative (Negative) Urine Bilirubin Negative (Negative) Urine Urobilinogen <2.0 (<2.0) mg/dL Ur Leukocyte Esterase Negative (Negative) Urine Opiates Screen Not Detected (NotDetected) Ur Oxycodone Screen Not Detected (NotDetected) Urine Methadone Screen Not Detected (NotDetected) Ur Propoxyphene Screen Not Detected (NotDetected) Ur Barbiturates Screen Not Detected (NotDetected) U Tricyclic Antidepress Not Detected (NotDetected) Ur Phencyclidine Scrn Not Detected (NotDetected) Ur Amphetamines Screen Not Detected (NotDetected) U Methamphetamines Scrn Not Detected (NotDetected) U Benzodiazepines Scrn Not Detected (NotDetected) Urine Cocaine Screen Not Detected (NotDetected) U Marijuana (THC) Screen Not Detected (NotDetected) Serum Alcohol <10 mg/dL Disposition Clinical Impression: Alcohol withdrawal, Gait disturbance Disposition: ADMITTED IP TO THIS HOSP Is patient prescribed a controlled substance at d/c from ED?: No Referrals: [facility] [Primary Care Provider] - 1-2 days Decision Time: 12:43
[2021-09-05 09:54] LABS: Appearance,Urine Clear (Clear); Bilirubin,Urine Negative (Negative); Blood,Urine Negative (Negative); Color,Urine Light Yellow; Glucose,Urine (UA) Negative (Negative); Ketones,Urine Negative (Negative); Leukocyte Esterase,Urine Negative (Negative); Nitrite,Urine Negative (Negative); PH, Urine 5.5 (5.0-8.0); Protein,Urine Negative (Negative); Specific Gravity,Urine 1.003 (1.001-1.035); Urobilinogen,Urine <2.0 mg/dL (<2.0)
[2021-09-05 10:30] LABS: ALT 23 U/L (4-49); AST 59 U/L (17-59); African American GFR (CKD) >90 (>60 ml/min/1.73 sqM); Albumin 3.9 g/dL (3.5-5.0); Alcohol <10 mg/dL; Alkaline Phosphatase 79 U/L (38-126); Amylase 62 U/L (30-110); Anion Gap 10 mmol/L; Blood Urea Nitrogen 8 mg/dL (9-20); Calcium 8.8 mg/dL (8.4-10.2); Carbon Dioxide 22 mmol/L (22-30); Chloride 97 mmol/L (98-107); Glucose 101 mg/dL (74-99); Lipase 86 U/L (23-300); Magnesium 1.6 mg/dL (1.6-2.3); Non-African American GFR(CKD) >90 (>60 ml/min/1.73 sqM); Potassium 4.4 mmol/L (3.5-5.1); Sodium 129 mmol/L (137-145); Total Protein 7.1 g/dL (6.3-8.2)
[2021-09-05 10:34] LABS: Anisocytosis Slight; Basophils % (A) 1 %; Eosinophils # (A) 0.1 k/uL (0-0.7); Eosinophils % (A) 2 %; HGB 11.9 gm/dL (13.0-17.5); Lymphocytes # (A) 0.9 k/uL (1.0-4.8); Lymphocytes % (A) 14 %; MCH 29.5 pg (25.0-35.0); MCHC 32.2 g/dL (31.0-37.0); MCV 91.7 fL (80.0-100.0); Mean Platelet Volume 7.3; Monocytes # (A) 0.4 k/uL (0-1.0); Monocytes % (A) 6 %; Neutrophils % (A) 76 %; Platelet Count 294 k/uL (150-450); RBC 4.04 m/uL (4.30-5.90); RDW 17.4 % (11.5-15.5); WBC 6.7 k/uL (3.8-10.6)
[2021-09-05 10:57] LABS: Amphetamine Screen,Urine Not Detected (NotDetected); Barbiturate Screen,Urine Not Detected (NotDetected); Benzodiazepines Screen,Urine Not Detected (NotDetected); Cocaine Screen,Urine Not Detected (NotDetected); Methadone Screen, Urine Not Detected (NotDetected); Opiate Screen,Urine Not Detected (NotDetected); Oxycodone Screen, Urine Not Detected (NotDetected); Phencyclidine Screen,Urine Not Detected (NotDetected); Tricyclic Antidepressant,Urine Not Detected (NotDetected); Urn Cannabinoid Scrn Not Detected (NotDetected)
[2021-09-05] MEDS ORDERED: NALOXONE 0.4 MG/ML 1 ML VIAL IV PRN (12:43)
[2021-09-05] MEDS ORDERED: LORazepam 2 MG/ML INJ IV PRN ×4 (12:44)
[2021-09-05] MEDS: SODIUM CHLORIDE 0.9% 1,000 ML IV SCH (13:00)
--- NOTE | 2021-09-05 13:26 | P.HPIM ---
History of Present Illness H&P Date: 09/05/21 HISTORY OF PRESENT ILLNESS This is a 55-year-old male patient of [facility] with past medical history of paroxysmal atrial fibrillation not on anticoagulation, and her artery disease with stent of the LAD, bipolar disorder, alcohol abuse, gastroesophageal reflux disease, COPD, nephrolithiasis, chronic low back pain gastric bypass, tobacco use and dependence Her was last admitted in for acute UTI and acute COVID infection. Patient presented with weakness and tiredness that visit. He was given Bamlanivimab infusion and was discharged. According to patient he has been feeling weak and lethargic since his discharge. He continues to drink intermittently 12 of 12 ounce beer every day. He denies doing any drugs. Patient denies any diarrhea, loss of blood from any site., Increased frequency of urination, cough or congestion. He denies any chest pain or shortness of breath. He denies any vision change. Patient feels weak in both his legs and has difficulty staying up. He does not use any cane or walker. He denies any history of stroke in the past. Patient's last drink was yesterday while watching [employer]. He came to the emergency room for increased weakness. He received 2 doses of Ativan due to increased shakiness. Patient sent in to the hospital complaining of feeling tired and weak and shaky. He denies having fever or chills, shortness of breath or cough. He did receive a vaccine booster in June. Vitals are stable afebrile blood pressure 128/84 oxygen 98% on room air. Labs as leukocyte of 6.5 hemoglobin 11.9 platelet 294 sodium 129 chloride 97 BUN 8 creatinine 0.46 glucose 101 urine analysis is negative for infection. UDS is negative. Patient came into [facility] emergency center for evaluation. On be afebrile initial heart rate 120 and resolved, blood pressure 166/105, pulse ox 97% on room air. The C6 0.8, hemoglobin 12.1. Sodium 123 and repeat 127 at 11 AM. Potassium 4.6, chloride 92, CO2 20, BUN 9 and creatinine 0.5. Blood sugar 118 years. Magnesium 1.3. AST 63. Urine culture is in progress. Coronavirus PCR detected. CT head ordered to evaluate for bleed. REVIEW OF SYSTEMS At the time of evaluation: Constitutional: No fever, no chills, no night sweats. No weight change. Reports weakness, Reports fatigue or lethargy. Reports daytime sleepiness EENT: No headache. No blurred vision or double vision, no loss of vision. No loss of Hearing, no ringing in the ears, no dizziness. No nasal drainage or congestion. No epistaxis. No sore throat. Lungs: No shortness of breath, cough, no sputum production. No wheezing. Cardiovascular: No chest pain, no lower extremity edema. No palpitations. No paroxysmal nocturnal dyspnea. No orthopnea. No lightheadedness or dizziness. No syncopal episodes. Abdominal: No abdominal pain. No nausea, vomiting. No diarrhea. No constipation. No bloody or tarry stools.. No loss of appetite. Genitourinary: Reports intermittent dysuria, increased frequency, urgency. No urinary retention. Musculoskeletal: No myalgias. Reports muscle weakness, no gait dysfunction, no frequent falls. Chronic back pain. No neck pain. Integumentary: No wounds, no lesions. No rash or pruritus. No unusual bruising. No change in hair or nails. Neurologic: No aphasia. No facial droop. No change in mentation. No head injury. No headache. No paralysis. No paresthesia. Psychiatric: No depression. No anxiety. No mood swings. Endocrine: No abnormal blood sugars. No weight change. SOCIAL HISTORY Patient is a smoker of one and a half to 2 packs a day for 43 years. He has history of alcohol abuse drinking 3/5 of vodka per day. Drinks 12 12 ounce beer every day , last intake was yesterday. He uses marijuana occasionally. He does have history of IV drug abuse but has been clean for 4 1/2 years. He is single and lives in an apartment. FAMILY HISTORY Mother is alive at age 79 with history of coronary artery disease with 3 vessel CABG. Father at age 53 from cirrhosis of the liver. Patient has 1 brother that has no major medical problems that the patient is aware of. Patient has a daughter that is 26 years of age and a son that is 7 years of age with no major medical problems. PHYSICAL EXAMINATION Gen: This is a 55-year-old male patient. Drowsy He is resting in ER stretcher and appears to be comfortable and in no acute distress. HEENT: Head is atraumatic, normocephalic. Pupils equal, round. Sclerae is anicteric. NECK: Supple. No JVD. No lymphadenopathy. No thyromegaly. LUNGS: Clear to auscultation. No wheezes or rhonchi. No intercostal retractions. HEART: Regular rate and rhythm. No murmur. ABDOMEN: Soft. Bowel sounds are present. No masses. No tenderness. EXTREMITIES: No pedal edema. No calf tenderness. NEUROLOGICAL: Patient is awake, alert and oriented x3. Cranial nerves 2 through 12 are grossly intact. ASSESSMENT AND PLAN 1. Fatigue Possible COVID related long-hauler syndrome. Recent UTI treated in July/2020. Urinalysis today negative for infection. UDS negative for infection alcohol level is negative. CT head ordered to rule out subacute required hemorrhage/subdural hemorrhage 2. Hyponatremia likely hypovolemic secondary to dehydration continue normal saline at 75 mL per hour. No sign of infection. No change in mental status. CT head 3. Recent COVID19 infection. last detected 08/04/2021. Inflammation markers ordered. 4. Tobacco use and dependence. Patient declines need for nicotine patch. 5. Alcohol abuse, stable. watch for alcohol withdrawal 6. Hypertension. Continue lisinopril and Lopressor, Aldactone 25 mg daily. 7. History of paroxysmal atrial fibrillation. No anticoagulation. 8. Bipolar disorder. Continue Cymbalta 60 mg daily, Lamictal 100 mg twice daily. 9. COPD without exacerbation. Continue albuterol inhaler 2 puffs every 4 hours as needed, Symbicort 2 puffs twice daily. GI prophylaxis DVT prophylaxis. Patient will be admitted to the hospital for a minimum of 2 night stay. DISCHARGE PLAN Home. Past Medical History Past Medical History: COPD, GERD/Reflux, GI Bleed, Hypertension, Musculoskeletal Disorder, Pneumonia, Renal Disease, Skin Disorder Additional Past Medical History / Comment(s): ETOH abuse with delirium tremors, lower GI bleed, IBS, chronic iron deficiency anemia, hypomagnesemia, hyperbilirubinemia, anorexia, vertigo, nephrolithiasis-passed stone on his own, chronic low back/cervical pain, DDD, kyphosis, scoliosis, coccyx pressure ulcer pt states is mostly healed Last Myocardial Infarction Date:: 12/25/20 History of Any Multi-Drug Resistant Organisms: None Reported Past Surgical History: Bariatric Surgery, Hernia Repair, Orthopedic Surgery, Tonsillectomy Additional Past Surgical History / Comment(s): Right inner Forearm-metal plate, gastric bypass, incisional hernia surgery x2, EGDs, colonoscopies. Past Anesthesia/Blood Transfusion Reactions: No Reported Reaction Date of Last Stent Placement:: 12/25/20 Past Psychological History: Anxiety, Bipolar, Depression, PTSD Smoking Status: Current every day smoker Past Alcohol Use History: Abuse, Daily, Heavy Past Drug Use History: Cocaine, Heroin, Marijuana - Past Family History Mother Family Medical History: Hypertension Additional Family Medical History / Comment(s): Lupus. Mother is living. Father Family Medical History: Liver Disease Additional Family Medical History / Comment(s): ETOH abuse. of cirrhosis complications. Medications and Allergies Home Medications Medication Instructions Recorded Confirmed Type Acetaminophen [Tylenol] 650 mg PO Q4H PRN 02/18/21 09/05/21 History Ticagrelor [Brilinta] 90 mg PO BID 02/18/21 09/05/21 History lisinopriL [Zestril] 2.5 mg PO DAILY 02/18/21 09/05/21 History Albuterol Inhaler [Ventolin Hfa 2 puff INHALATION RT-QID PRN 03/30/21 09/05/21 History Inhaler] Aspirin EC [Ecotrin Low Dose] 81 mg PO DAILY 03/30/21 09/05/21 History Atorvastatin [Lipitor] 80 mg PO HS 03/30/21 09/05/21 History Fluticasone/Salmeterol [Advair 1 puff INHALATION RT-BID 03/30/21 09/05/21 History 100-50 Diskus] Nitroglycerin Sl Tabs [Nitrostat] 0.4 mg SL Q5M PRN 03/30/21 09/05/21 History Spironolactone 25 mg PO DAILY 03/30/21 09/05/21 History Omeprazole 20 mg PO DAILY 30 Days #0 04/04/21 09/05/21 Rx lamoTRIgine [LaMICtal] 100 mg PO BID 30 Days tab 04/04/21 09/05/21 Rx DULoxetine HCL [Cymbalta] 60 mg PO DAILY 04/12/21 09/05/21 History Metoprolol Tartrate [Lopressor] 25 mg PO BID 04/12/21 09/05/21 History Multivitamins, Thera [Multivitamin 1 tab PO DAILY 04/12/21 09/05/21 History (formulary)] Naltrexone HCl [Revia] 50 mg PO DAILY 09/05/21 09/05/21 History Allergies Allergy/AdvReac Type Severity Reaction Status Date / Time No Known Allergies Allergy Verified 09/05/21 11:19 Physical Exam Vitals: Vital Signs Temp Pulse Pulse Pulse Pulse Resp BP 09/05/21 12:36 101 H 18 09/05/21 12:34 96 16 09/05/21 12:32 87 16 09/05/21 08:36 98.3 F 96 18 157/85 BP BP BP Pulse Ox 09/05/21 12:36 128/84 98 09/05/21 12:34 133/83 98 09/05/21 12:32 132/79 98 09/05/21 08:36 99 Intake and Output 09/04/21 09/05/21 09/05/21 22:59 06:59 14:59 Other: Weight 71.668 kg Results CBC & Chem 7: 09/05/21 09:30 09/05/21 09:30 Labs: Abnormal Lab Results - Last 24 Hours (Table) 09/05/21 09/05/21 Range/Units 09:30 09:30 RBC 4.04 L (4.30-5.90) m/uL Hgb 11.9 L (13.0-17.5) gm/dL Hct 37.0 L (39.0-53.0) % RDW 17.4 H (11.5-15.5) % Lymphocytes # 0.9 L (1.0-4.8) k/uL Sodium 129 L (137-145) mmol/L Chloride 97 L (98-107) mmol/L BUN 8 L (9-20) mg/dL Creatinine 0.46 L (0.66-1.25) mg/dL Glucose 101 H (74-99) mg/dL
[2021-09-05] MEDS ORDERED: ACETAMINOPHEN TAB 325 MG TAB PO PRN (13:29)
[2021-09-05] MEDS ORDERED: ALBUTEROL NEBULIZED 2.5 MG/3 ML INHALATION PRN (13:29)
--- NOTE | 2021-09-05 14:04 | CT ---
EXAMINATION TYPE: CT brain without contrast DATE OF EXAM: 09/05/2021 COMPARISON: CT dated 04/12/2021 HISTORY: Gait disturbance. Alcohol withdrawal. CT DLP: 1165.4 mGycm Automated exposure control for dose reduction was used. TECHNIQUE: Multiplanar nonenhanced CT scan of the brain without IV contrast administration. FINDINGS: Generalized brain volume loss changes, more than expected for the patient's age, appreciated previous ly. Scattered arterial atherosclerotic calcifications. Slightly prominent right cavernous sinus, also appreciated previously and grossly stable since 2017 CT scan. No acute intracranial hemorrhage or gross acute cortical infarct. No midline shift, herniation or jessica tricular megaly. Unremarkable basal cisterns, sella and CP angles. No gross space-occupying lesion, v asogenic edema or mass effect. Unremarkable orbits. Mucosal thickening of the left sphenoid sinus compartment and ethmoid air cells. Clear mastoid air cells. No aggressive bone lesion. IMPRESSION: No acute intracranial abnormality or gross space-occupying lesion by this nonenhanced CT scan. Generalized brain volume loss changes, more than expected for the patient's age, appreciated previous ly. Other incidental findings as described above.
[2021-09-05 15:07] LABS: C Reactive Protein <0.5 mg/dL (<1.0); LDH 392 U/L (313-618)
[2021-09-05] MEDS: THIAMINE 100 MG TAB PO SCH (18:01)
[2021-09-05] MEDS: SYMBICORT 80-4.5 MCG INHALER INHALATION SCH (19:39)
[2021-09-05] MEDS: TICAGRELOR 90 MG TAB PO SCH (22:59)
[2021-09-05] MEDS: ATORVASTATIN 80 MG TAB PO SCH (22:59)
[2021-09-05] MEDS: FAMOTIDINE 20 MG TAB PO SCH (22:59)
[2021-09-05] MEDS: lamoTRIgine 100 MG TAB PO SCH (22:59)
[2021-09-05] MEDS: METOPROLOL TARTRATE 25 MG TAB PO SCH (22:59)
[2021-09-06 05:30] LABS: Ferritin 34.5 ng/mL (22.0-322.0); Iron 123 ug/dL (65-175); Total Iron Binding Capacity 406 ug/dL (228-460)
[2021-09-06 07:28] LABS: Glucose,Whole Blood 151 mg/dL (75-99)
[2021-09-06] MEDS: THIAMINE 100 MG TAB PO SCH ×2 (07:29→16:39)
[2021-09-06] MEDS: PANTOPRAZOLE 40 MG TABLET PO SCH (07:29)
[2021-09-06] MEDS: SODIUM CHLORIDE 0.9% 1,000 ML IV SCH ×2 (08:43→11:08)
[2021-09-06] MEDS: SYMBICORT 80-4.5 MCG INHALER INHALATION SCH ×2 (08:44→20:36)
[2021-09-06 08:58] LABS: Basophils # (A) 0.06 X 10*3/uL (0.00-0.10); Basophils % (A) 1.1 %; Eosinophils # (A) 0.18 X 10*3/uL (0.04-0.35); Eosinophils % (A) 3.3 %; HCT 35.8 % (39.6-50.0); HGB 11.3 g/dL (13.0-17.0); Immature Grans, Automated 0.4 %; Lymphocytes # (A) 1.25 X 10*3/uL (0.90-5.00); Lymphocytes % (A) 23.1 %; MCH 29.1 pg (27.0-32.0); MCHC 31.6 g/dL (32.0-37.0); MCV 92.3 fL (80.0-97.0); Monocytes # (A) 0.63 X 10*3/uL (0.20-1.00); Monocytes % (A) 11.6 %; NRBC Per 100 WBC 0 /100 WBCS (0.0-0.0); Neutrophils # (A) 3.28 X 10*3/uL (1.80-7.70); Neutrophils % (A) 60.5 %; Platelet Count 249 X 10*3/uL (140-440); RBC 3.88 X 10*6/uL (4.40-5.60); RDW 19.4 % (11.5-14.5); WBC 5.42 X 10*3/uL (4.50-10.00)
[2021-09-06] MEDS: ASPIRIN 81 MG PO SCH (09:21)
[2021-09-06] MEDS: SPIRONOLACTONE 25 MG TAB PO SCH (09:22)
[2021-09-06] MEDS: METOPROLOL TARTRATE 25 MG TAB PO SCH ×2 (09:22→21:03)
[2021-09-06] MEDS: MULTIVITAMINS, THERA 1 EACH TAB PO SCH (09:22)
[2021-09-06] MEDS: DULoxetine HCL 60 MG CAPSULE.DR PO SCH (09:22)
[2021-09-06] MEDS: lamoTRIgine 100 MG TAB PO SCH ×2 (09:22→21:03)
[2021-09-06] MEDS: FAMOTIDINE 20 MG TAB PO SCH ×2 (09:22→21:04)
[2021-09-06 09:36] LABS: African American GFR (CKD) 123.1 (60.0-200.0); Albumin 3.8 g/dL (3.8-4.9); Albumin/Globulin Ratio 1.46 (1.60-3.17); Anion Gap 10.8 mmol/L (10.00-18.00); BUN/Creat Ratio 14.14 Ratio (12.00-20.00); Blood Urea Nitrogen 9.9 mg/dL (9.0-27.0); Calcium 8.6 mg/dL (8.7-10.3); Carbon Dioxide 23.2 mmol/L (20.0-27.5); Globulin 2.6 g/dL (1.6-3.3); Magnesium 2.1 mg/dL (1.5-2.4); Non-African American GFR(CKD) 106.2 (60.0-200.0); Potassium 3.8 mmol/L (3.5-5.5); Total Bilirubin 0.8 mg/dL (0.30-1.20); Total Protein 6.4 g/dL (6.2-8.2)
[2021-09-06] MEDS: TICAGRELOR 90 MG TAB PO SCH ×2 (11:08→22:09)
[2021-09-06 11:43] LABS: Glucose,Whole Blood 111 mg/dL (75-99)
[2021-09-06 13:24] VITALS: BMI 24.0
--- NOTE | 2021-09-06 14:20 | P.PN ---
Subjective Progress Note Date: 09/06/21 Principal diagnosis: Patient continues to be weak Constitutional: No acute distress, conversant, pleasant Eyes: Anicteric sclerae, moist conjunctiva, no lid-lag PERRLA ENMT: NC/AT Oropharynx clear, no erythema, exudates Neck: Supple, FROM, no masses, or JVD No carotid bruits No thyromegaly Lungs: Clear to auscultation Clear to percussion Normal respiratory effort, no accessory muscle use Cardiovascular: Heart regular in rate and rhythm, No murmurs, gallops, or rubs No peripheral edema Abdominal: Soft Nontender, no guarding, rebound or rigidity Abdomen moving with respiration Normoactive bowel sounds No hepatomegaly, No splenomegaly No palpable mass No abdominal wall hernia noted Skin: Normal temperature, tone, texture, turgor No induration No subcutaneous nodules No rash, lesions No ulcers Extremities: No digital cyanosis No clubbing Pedal pulses intact and symmetrical Radial pulses intact and symmetrical Normal gait and station No calf tenderness Psychiatric:Alert and oriented to person, place and time Appropriate affect Intact judgement Neuro: Muscles Strength 5/5 in all 4 extremities Sensation to light touch grossly present throughout Cranial nerves II-XII grossly intact No focal sensory deficits 1. Fatigue Possible COVID related long-hauler syndrome. Recent UTI treated in July/2020. Urinalysis today negative for infection. UDS negative for infection alcohol level is negative. CT head ordered to rule out subacute required hemorrhage/subdural hemorrhage Monitor closely for alcohol withdrawals 2. Hyponatremia likely hypovolemic secondary to dehydration continue normal saline at 75 mL per hour. No sign of infection. No change in mental status. CT head 3. Recent COVID19 infection. last detected 08/04/2021. Inflammation markers ordered. 4. Tobacco use and dependence. Patient declines need for nicotine patch. 5. Alcohol abuse, stable. watch for alcohol withdrawal 6. Hypertension. Continue lisinopril and Lopressor, Aldactone 25 mg daily. 7. History of paroxysmal atrial fibrillation. No anticoagulation. 8. Bipolar disorder. Continue Cymbalta 60 mg daily, Lamictal 100 mg twice daily. 9. COPD without exacerbation. Continue albuterol inhaler 2 puffs every 4 hours as needed, Symbicort 2 puffs twice daily. GI prophylaxis DVT prophylaxis. Objective - Vital Signs Vital signs: Vital Signs Temp 97.8 F 09/06/21 08:00 Pulse 74 09/06/21 08:00 Resp 14 09/06/21 08:00 BP 130/80 09/06/21 08:00 Pulse Ox 98 09/06/21 08:00 Intake & Output 09/05/21 09/06/21 09/06/21 18:59 06:59 18:59 Intake Total 300 Balance 300 Weight 71.668 kg 71.668 kg 71.668 kg Intake: Oral 300 Other: Voiding Method Toilet # Voids 1 0 # Bowel Movements 0 - Labs CBC & Chem 7: 09/06/21 03:28 09/06/21 03:28 Labs: Abnormal Lab Results - Last 24 Hours (Table) 09/05/21 09/06/21 09/06/21 Range/Units 14:16 03:28 03:28 RBC 3.88 L (4.40-5.60) X 10*6/uL Hgb 11.3 L (13.0-17.0) g/dL Hct 35.8 L (39.6-50.0) % MCHC 31.6 L (32.0-37.0) g/dL RDW 19.4 H (11.5-14.5) % D-Dimer 0.80 H (<0.60) mg/L FEU Glucose 112 H (70-110) mg/dL POC Glucose (mg/dL) (75-99) mg/dL Calcium 8.6 L (8.7-10.3) mg/dL AST 41 H (14-35) U/L Albumin/Globulin Ratio 1.46 L (1.60-3.17) g/dL 09/06/21 09/06/21 Range/Units 07:26 11:40 RBC (4.40-5.60) X 10*6/uL Hgb (13.0-17.0) g/dL Hct (39.6-50.0) % MCHC (32.0-37.0) g/dL RDW (11.5-14.5) % D-Dimer (<0.60) mg/L FEU Glucose (70-110) mg/dL POC Glucose (mg/dL) 151 H 111 H (75-99) mg/dL Calcium (8.7-10.3) mg/dL AST (14-35) U/L Albumin/Globulin Ratio (1.60-3.17) g/dL
[2021-09-06 14:38] VITALS: RESP 16
[2021-09-06 16:39] LABS: Glucose,Whole Blood 96 mg/dL (75-99)
[2021-09-06 20:33] LABS: Glucose,Whole Blood 128 mg/dL (75-99)
[2021-09-06] MEDS: ATORVASTATIN 80 MG TAB PO SCH (21:04)
[2021-09-07] MEDS: SODIUM CHLORIDE 0.9% 1,000 ML IV SCH (06:00)
[2021-09-07 06:50] LABS: Glucose,Whole Blood 108 mg/dL (75-99)
[2021-09-07] MEDS: THIAMINE 100 MG TAB PO SCH (07:15)
[2021-09-07] MEDS: PANTOPRAZOLE 40 MG TABLET PO SCH (07:15)
[2021-09-07] MEDS: SYMBICORT 80-4.5 MCG INHALER INHALATION SCH (07:36)
[2021-09-07 07:53] VITALS: BP 126/81; PULSE 60; TEMP 98.1
[2021-09-07] MEDS: MULTIVITAMINS, THERA 1 EACH TAB PO SCH (08:56)
[2021-09-07] MEDS: FAMOTIDINE 20 MG TAB PO SCH (08:56)
[2021-09-07] MEDS: SPIRONOLACTONE 25 MG TAB PO SCH (08:56)
[2021-09-07] MEDS: lamoTRIgine 100 MG TAB PO SCH (08:56)
[2021-09-07] MEDS: DULoxetine HCL 60 MG CAPSULE.DR PO SCH (08:56)
[2021-09-07] MEDS: ASPIRIN 81 MG PO SCH (08:56)
[2021-09-07] MEDS: METOPROLOL TARTRATE 25 MG TAB PO SCH (08:56)
[2021-09-07] MEDS: TICAGRELOR 90 MG TAB PO SCH (08:56)
--- NOTE | 2021-09-07 09:08 | P.DS ---
Providers Date of admission: 09/05/21 12:43 Expected date of discharge: 09/07/21 Attending physician: Benita Gambino DO Primary care physician: [facility] Course: 55-year-old male with multiple admissions to the hospital with WITHDRAWALS admitted to the hospital with hyponatremia and possible cognitive syndrome the patient has been feeling weak patient has been given fluids after which the condition of the patient improved the patient feels better today still weak but feels better no evidence of withdrawals at this time Constitutional: No acute distress, conversant, pleasant Eyes: Anicteric sclerae, moist conjunctiva, no lid-lag PERRLA ENMT: NC/AT Oropharynx clear, no erythema, exudates Neck: Supple, FROM, no masses, or JVD No carotid bruits No thyromegaly Lungs: Clear to auscultation Clear to percussion Normal respiratory effort, no accessory muscle use Cardiovascular: Heart regular in rate and rhythm, No murmurs, gallops, or rubs No peripheral edema Abdominal: Soft Nontender, no guarding, rebound or rigidity Abdomen moving with respiration Normoactive bowel sounds No hepatomegaly, No splenomegaly No palpable mass No abdominal wall hernia noted Skin: Normal temperature, tone, texture, turgor No induration No subcutaneous nodules No rash, lesions No ulcers Extremities: No digital cyanosis No clubbing Pedal pulses intact and symmetrical Radial pulses intact and symmetrical Normal gait and station No calf tenderness Psychiatric:Alert and oriented to person, place and time Appropriate affect Intact judgement Neuro: Muscles Strength 5/5 in all 4 extremities Sensation to light touch grossly present throughout Cranial nerves II-XII grossly intact No focal sensory deficits Discharge plan Hyponatremia Alcohol ABUSE Multiple medical problems Generalized weakness Patient follow-up with primary care physician Plan - Discharge Summary Discharge Rx Participant: Yes New Discharge Prescriptions: Continue Acetaminophen [Tylenol] 650 mg PO Q4H PRN PRN Reason: Fever And/ Or Pain lisinopriL [Zestril] 2.5 mg PO DAILY Fluticasone/Salmeterol [Advair 100-50 Diskus] 1 puff INHALATION RT-BID Spironolactone 25 mg PO DAILY Atorvastatin [Lipitor] 80 mg PO HS Albuterol Inhaler [Ventolin Hfa Inhaler] 2 puff INHALATION RT-QID PRN PRN Reason: Shortness Of Breath lamoTRIgine [LaMICtal] 100 mg PO BID 30 Days tab Omeprazole 20 mg PO DAILY 30 Days #0 Multivitamins, Thera [Multivitamin (formulary)] 1 tab PO DAILY Ticagrelor [Brilinta] 90 mg PO BID Aspirin EC [Ecotrin Low Dose] 81 mg PO DAILY Nitroglycerin Sl Tabs [Nitrostat] 0.4 mg SL Q5M PRN PRN Reason: Chest Pain DULoxetine HCL [Cymbalta] 60 mg PO DAILY Metoprolol Tartrate [Lopressor] 25 mg PO BID Naltrexone HCl [Revia] 50 mg PO DAILY Discharge Medication List Acetaminophen [Tylenol] 650 mg PO Q4H PRN 02/18/21 [History] Ticagrelor [Brilinta] 90 mg PO BID 02/18/21 [History] lisinopriL [Zestril] 2.5 mg PO DAILY 02/18/21 [History] Albuterol Inhaler [Ventolin Hfa Inhaler] 2 puff INHALATION RT-QID PRN 03/30/21 [History] Aspirin EC [Ecotrin Low Dose] 81 mg PO DAILY 03/30/21 [History] Atorvastatin [Lipitor] 80 mg PO HS 03/30/21 [History] Fluticasone/Salmeterol [Advair 100-50 Diskus] 1 puff INHALATION RT-BID 03/30/21 [History] Nitroglycerin Sl Tabs [Nitrostat] 0.4 mg SL Q5M PRN 03/30/21 [History] Spironolactone 25 mg PO DAILY 03/30/21 [History] Omeprazole 20 mg PO DAILY 30 Days #0 04/04/21 [Rx] lamoTRIgine [LaMICtal] 100 mg PO BID 30 Days tab 04/04/21 [Rx] DULoxetine HCL [Cymbalta] 60 mg PO DAILY 04/12/21 [History] Metoprolol Tartrate [Lopressor] 25 mg PO BID 04/12/21 [History] Multivitamins, Thera [Multivitamin (formulary)] 1 tab PO DAILY 04/12/21 [History] Naltrexone HCl [Revia] 50 mg PO DAILY 09/05/21 [History] Follow up Appointment(s)/Referral(s): [facility], [NON-STAFF] - As Needed ([facility] will call you to schedule your home care visits. ) [facility] [Primary Care Provider] - 1-2 days Patient Instructions/Handouts: Hyponatremia (DC), Weakness (DC) Discharge Disposition: HOME SELF-CARE
[2021-09-07 09:28] LABS: Basophils # (A) 0.07 X 10*3/uL (0.00-0.10); Basophils % (A) 1.3 %; Eosinophils # (A) 0.19 X 10*3/uL (0.04-0.35); Eosinophils % (A) 3.5 %; HCT 31.8 % (39.6-50.0); HGB 9.9 g/dL (13.0-17.0); Immature Grans, Automated 0.4 %; Lymphocytes # (A) 1.47 X 10*3/uL (0.90-5.00); MCH 28.9 pg (27.0-32.0); MCHC 31.1 g/dL (32.0-37.0); Mean Platelet Volume 10.3 fL (9.5-12.2); Monocytes # (A) 0.63 X 10*3/uL (0.20-1.00); Monocytes % (A) 11.6 %; NRBC Per 100 WBC 0 /100 WBCS (0.0-0.0); Neutrophils # (A) 3.06 X 10*3/uL (1.80-7.70); Neutrophils % (A) 56.2 %; Platelet Count 227 X 10*3/uL (140-440); RBC 3.42 X 10*6/uL (4.40-5.60); RDW 18.9 % (11.5-14.5); WBC 5.44 X 10*3/uL (4.50-10.00)
[2021-09-07 09:44] LABS: African American GFR (CKD) 131.2 (60.0-200.0); Anion Gap 9.7 mmol/L (10.00-18.00); BUN/Creat Ratio 15.5 Ratio (12.00-20.00); Blood Urea Nitrogen 9.3 mg/dL (9.0-27.0); Carbon Dioxide 21.3 mmol/L (20.0-27.5); Non-African American GFR(CKD) 113.2 (60.0-200.0); Potassium 3.9 mmol/L (3.5-5.5)
[2021-09-07 09:45] LABS: Albumin 3.4 g/dL (3.8-4.9); Albumin/Globulin Ratio 1.42 (1.60-3.17); Calcium 8.3 mg/dL (8.7-10.3); Globulin 2.4 g/dL (1.6-3.3); Total Bilirubin 0.7 mg/dL (0.30-1.20); Total Protein 5.8 g/dL (6.2-8.2)
== END 2021-09-07 11:47 | disposition home or self-care (01) ==
LOC: EC 08:34 → 4SSUR 12:43 → INTOOBSV 12:43 → 4SSUR 15:25 → UNDODISIN 09-07 11:47
PROVIDERS: ADMIT Internal Medicine; ATTEND Internal Medicine
DX: E87.1 Hypo-osmolality and hyponatremia (principal); F10.10 Alcohol abuse, uncomplicated; E86.0 Dehydration; R79.89 Other specified abnormal findings of blood chemistry; J44.9 Chronic obstructive pulmonary disease, unspecified; I48.0 Paroxysmal atrial fibrillation; I10 Essential (primary) hypertension; D50.9 Iron deficiency anemia, unspecified; I25.10 Atherosclerotic heart disease of native coronary artery without angina pectoris; K21.9 Gastro-esophageal reflux disease without esophagitis; R26.9 Unspecified abnormalities of gait and mobility; G89.29 Other chronic pain; M54.50 Low back pain, unspecified; M54.2 Cervicalgia; M41.9 Scoliosis, unspecified; K58.9 Irritable bowel syndrome, unspecified; L89.159 Pressure ulcer of sacral region, unspecified stage; R35.0 Frequency of micturition; F31.9 Bipolar disorder, unspecified; F43.10 Post-traumatic stress disorder, unspecified; F41.9 Anxiety disorder, unspecified; I25.2 Old myocardial infarction; Y90.0 Blood alcohol level of less than 20 mg/100 ml; F17.210 Nicotine dependence, cigarettes, uncomplicated; Z20.822 Contact with and (suspected) exposure to COVID-19; Z79.02 Long term (current) use of antithrombotics/antiplatelets; Z79.82 Long term (current) use of aspirin; Z79.51 Long term (current) use of inhaled steroids; Z79.899 Other long term (current) drug therapy; Z86.16 Personal history of COVID-19; Z98.84 Bariatric surgery status; Z87.01 Personal history of pneumonia (recurrent); Z87.440 Personal history of urinary (tract) infections; Z87.442 Personal history of urinary calculi; Z87.19 Personal history of other diseases of the digestive system; Z95.5 Presence of coronary angioplasty implant and graft; Z87.898 Personal history of other specified conditions; Z98.890 Other specified postprocedural states; Z83.49 Family history of other endocrine, nutritional and metabolic diseases; Z81.1 Family history of alcohol abuse and dependence; Z83.79 Family history of other diseases of the digestive system; Z82.49 Family history of ischemic heart disease and other diseases of the circulatory system
CPT/HCPCS: 96361 ×3; 96376; 96372; 96374; 99285; 36415; 94640 ×3; 97162; 97166; 85379; 83880; 80053 ×3; 85652; 82728; 82150; 83540; 83550; 83615; 83690; 83735 ×2; 85025 ×3; 86140; 81003; 80306; 84145; 87635; 70450; G0378 ×3; G0480; J2060; J3411; 80320; 96375

== ENCOUNTER 2021-10-11 11:39 | Emergency (ER) | payer MEDICARE, OTHER ==
[2021-10-11 11:49] VITALS: RESP 20; TEMP 98.9
[2021-10-11] MEDS ORDERED: SODIUM CHLORIDE 0.9% 1,000 ML IV ONE (12:15)
[2021-10-11] MEDS ORDERED: SODIUM CHLORIDE 0.9% 500 ML 500 ML IV ONE (12:15)
[2021-10-11] MEDS ORDERED: ONDANSETRON 4 MG/2 ML VIAL IVP STA (12:16)
[2021-10-11] MEDS ORDERED: LORazepam 2 MG/ML INJ IV STA (12:24)
[2021-10-11 12:42] LABS: Anisocytosis Slight; Basophils # (A) 0.1 k/uL (0-0.2); Basophils % (A) 1 %; Eosinophils % (A) 0 %; HCT 36.6 % (39.0-53.0); HGB 12.1 gm/dL (13.0-17.5); Lymphocytes # (A) 0.8 k/uL (1.0-4.8); Lymphocytes % (A) 9 %; MCH 29.1 pg (25.0-35.0); MCHC 32.9 g/dL (31.0-37.0); MCV 88.4 fL (80.0-100.0); Mean Platelet Volume 6.6; Monocytes # (A) 0.4 k/uL (0-1.0); Monocytes % (A) 5 %; Neutrophils # (A) 7.1 k/uL (1.3-7.7); Neutrophils % (A) 84 %; Platelet Count 348 k/uL (150-450); RBC 4.14 m/uL (4.30-5.90); RDW 17.6 % (11.5-15.5); WBC 8.4 k/uL (3.8-10.6)
[2021-10-11 12:55] LABS: ALT 43 U/L (4-49); African American GFR (CKD) >90 (>60 ml/min/1.73 sqM); Albumin 4.3 g/dL (3.5-5.0); Alcohol <10 mg/dL; Anion Gap 11 mmol/L; Blood Urea Nitrogen 8 mg/dL (9-20); Calcium 8.7 mg/dL (8.4-10.2); Carbon Dioxide 22 mmol/L (22-30); Chloride 96 mmol/L (98-107); Glucose 143 mg/dL (74-99); Non-African American GFR(CKD) >90 (>60 ml/min/1.73 sqM); Sodium 129 mmol/L (137-145); Total Bilirubin 1.4 mg/dL (0.2-1.3); Total Protein 7.8 g/dL (6.3-8.2)
[2021-10-11 13:06] LABS: AST 100 U/L (17-59); Alkaline Phosphatase 87 U/L (38-126); Magnesium 1.4 mg/dL (1.6-2.3); Potassium 4.3 mmol/L (3.5-5.1)
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
--- NOTE | 2021-10-11 13:19 | CT ---
EXAMINATION TYPE: CT brain wo con DATE OF EXAM: 10/11/2021 HISTORY: Fall injury with headache. CT DLP: 1186.4 mGycm. Automated Exposure Control for Dose Reduction was Utilized. TECHNIQUE: CT scan of the head is performed without contrast. COMPARISON: CT Brain September 05 2021. FINDINGS: There is no acute intracranial hemorrhage or midline shift identified. There is mild diff use ventricular and sulcal prominence consistent with diffuse age-related cerebral atrophy. There is mild low-attenuation in the periventricular white matter consistent with chronic small vessel ischem ic change. The calvarium is intact patchy opacification of ethmoid sinuses bilaterally is redemonstr ated. Globes are intact bilaterally. Mild/moderate mucosal thickening inferior left frontal sinus red emonstrated. Remainder of the paranasal sinuses are clear. IMPRESSION: No acute intracranial hemorrhage or midline shift. There is mild diffuse cerebral atrop hy and chronic small vessel ischemic change redemonstrated. Chronic paranasal sinus disease again se en. No significant change from prior.
[2021-10-11] MEDS ORDERED: MAGNESIUM SULFATE-D5W PMX 1 GM in DEXTROSE/WATER 1 100ML.BAG IVPB ONE (13:31)
[2021-10-11 14:04] VITALS: BP 160/92; PULSE 99
== END 2021-10-11 15:04 | disposition home or self-care (01) ==
LOC: EC 11:39
DX: F10.139 Alcohol abuse with withdrawal, unspecified (principal); E83.42 Hypomagnesemia; J44.9 Chronic obstructive pulmonary disease, unspecified; K21.9 Gastro-esophageal reflux disease without esophagitis; I10 Essential (primary) hypertension; I25.2 Old myocardial infarction; F41.9 Anxiety disorder, unspecified; F31.9 Bipolar disorder, unspecified; F43.10 Post-traumatic stress disorder, unspecified; F17.200 Nicotine dependence, unspecified, uncomplicated; F12.90 Cannabis use, unspecified, uncomplicated; Z79.82 Long term (current) use of aspirin; Z98.84 Bariatric surgery status; Y90.0 Blood alcohol level of less than 20 mg/100 ml
CPT/HCPCS: 99285; 96365; 96375 ×2; 96361; 36415; 80053; 83735; 85025; 70450; G0480; J2060; J2405; J3475; 80320

== ENCOUNTER 2021-12-03 11:50 | Inpatient (IN) | payer MEDICARE, OTHER ==
[2021-12-03] MEDS ORDERED: SODIUM CHLORIDE 0.9% 1,000 ML IV STA ×3 (12:18→14:39)
[2021-12-03] MEDS ORDERED: ACETAMINOPHEN TAB 500 MG TAB PO STA (12:18)
[2021-12-03] MEDS ORDERED: ASPIRIN 81 MG PO STA (12:18)
[2021-12-03] MEDS ORDERED: LORazepam 2 MG/ML INJ IV STA (12:19)
--- NOTE | 2021-12-03 12:30 | ED ---
General Adult HPI - General Chief complaint: Chest Pain Stated complaint: Alcohol withdrawl Time Seen by Provider: 12/03/21 11:54 Source: patient, RN notes reviewed Mode of arrival: ambulatory Limitations: no limitations - History of Present Illness Initial comments: 56-year-old male with a past medical history of COPD, GERD, hypertension, renal disease, alcohol abuse, [place] presents to the emergency room for several complaints. Patient states he believes his right shoulder is injured. He thinks he his right shoulder about a week ago and his friend helped him put it back in place. States it is painful but he can lift it above his head. Patient also stating he is having some chest pain and shortness of breath. This is been ongoing since this morning. He states he has tremors as well. He last drank beer about 9 hours for to arrival.Patient has no other complaints at this time including abdominal pain, nausea or vomiting, headache, or visual changes. - Related Data Home Medications Medication Instructions Recorded Confirmed Ticagrelor [Brilinta] 90 mg PO BID 02/18/21 12/03/21 lisinopriL [Zestril] 2.5 mg PO DAILY 02/18/21 12/03/21 Aspirin EC [Ecotrin Low Dose] 81 mg PO DAILY 03/30/21 12/03/21 Atorvastatin [Lipitor] 80 mg PO HS 03/30/21 12/03/21 Nitroglycerin Sl Tabs [Nitrostat] 0.4 mg SL Q5M PRN 03/30/21 12/03/21 Spironolactone 25 mg PO DAILY 03/30/21 12/03/21 DULoxetine HCL [Cymbalta] 60 mg PO DAILY 04/12/21 12/03/21 Metoprolol Tartrate [Lopressor] 25 mg PO BID 04/12/21 12/03/21 Naltrexone HCl [Revia] 50 mg PO DAILY 09/05/21 12/03/21 Albuterol Sulfate [Proair Hfa] 2 puff INHALATION RT-QID PRN 10/11/21 12/03/21 Fluticasone/Vilanterol [Breo 1 puff INHALATION RT-DAILY 10/11/21 12/03/21 Ellipta 100-25 Mcg Inhaler] Menthol [Biofreeze] 1 applic TOPICAL TID PRN 10/11/21 12/03/21 lamoTRIgine [LaMICtal] 100 mg PO BID 10/11/21 12/03/21 Menthol [Biofreeze] 1 applic TOPICAL TID PRN 12/03/21 12/03/21 Previous Rx's Medication Instructions Recorded Omeprazole 20 mg PO DAILY 30 Days #0 04/04/21 Allergies Allergy/AdvReac Type Severity Reaction Status Date / Time No Known Allergies Allergy Verified 12/03/21 13:33 Review of Systems ROS Statement: Those systems with pertinent positive or pertinent negative responses have been documented in the HPI. ROS Other: All systems not noted in ROS Statement are negative. Past Medical History Past Medical History: COPD, GERD/Reflux, GI Bleed, Hypertension, Myocardial Infarction ([place]), Pneumonia, Renal Disease, Skin Disorder Additional Past Medical History / Comment(s): ETOH abuse with delirium tremors, lower GI bleed, IBS, chronic iron deficiency anemia, hypomagnesemia, hyperbilirubinemia, anorexia, vertigo, nephrolithiasis-passed stone on his own, chronic low back/cervical pain, DDD, kyphosis, scoliosis, coccyx pressure ulcer pt states is mostly healed. Dry and itchy skin back in high school. 2 heart attacks, one in December (2020) second in February (2020). Last Myocardial Infarction Date:: February 2021 History of Any Multi-Drug Resistant Organisms: None Reported Past Surgical History: Bariatric Surgery, Heart Catheterization With Stent, Hernia Repair, Orthopedic Surgery, Tonsillectomy Additional Past Surgical History / Comment(s): Right inner Forearm-metal plate, gastric bypass, incisional hernia surgery x2, EGDs, colonoscopies. 2 Stents placed in December 2020. Past Anesthesia/Blood Transfusion Reactions: No Reported Reaction Date of Last Stent Placement:: 2020 Past Psychological History: Anxiety, Bipolar, Depression, PTSD Smoking Status: Current every day smoker Past Alcohol Use History: Abuse, Daily, Heavy Past Drug Use History: Cocaine, Heroin, Marijuana - Past Family History Mother Family Medical History: Hypertension Additional Family Medical History / Comment(s): Lupus. Mother is living. Father Family Medical History: Liver Disease Additional Family Medical History / Comment(s): ETOH abuse. of cirrhosis complications. General Exam Limitations: no limitations General appearance: alert, in no apparent distress Head exam: Present: atraumatic Eye exam: Present: normal appearance, PERRL, EOMI. Absent: scleral icterus, conjunctival injection ENT exam: Present: normal exam, mucous membranes moist Neck exam: Present: normal inspection, full ROM. Absent: tenderness Respiratory exam: Present: normal lung sounds bilaterally. Absent: respiratory distress, wheezes Cardiovascular Exam: Present: regular rate, normal rhythm, normal heart sounds GI/Abdominal exam: Present: soft, normal bowel sounds. Absent: distended, tenderness Extremities exam: Present: full ROM (Full range of motion of the right shoulder.), normal capillary refill (Capillary fill less than 2 seconds, radial pulse 2+ right upper extremity) Course Vital Signs 12/03/21 12/03/21 11:52 13:33 Temperature 100.1 F H 99.5 F Pulse Rate 117 H 96 Respiratory 20 18 Rate Blood Pressure 165/106 129/91 O2 Sat by Pulse 95 97 Oximetry EKG Findings - EKG Comments: EKG Findings:: Sinus tachycardia, ventricular rate 114, TN interval 157, QTC 428 Medical Decision Making - Medical Decision Making Patient presents with low-grade fever of 100.1. On exam he does have tremors. CBC is unremarkable. White blood cell count is normal at 8.5. CMP unremarkable as well. Lactic acid noted to be 5.8. Suspect secondary to dehydration. Currently do not have a source of infection. Chest x-ray does not show any lobar pneumonia. Patient was given fluids. COVID-19 and influenza are negative. Blood cultures pending. Patient has had right shoulder pain, full range of motion. Able to raise arm above head, no evidence of a septic arthritis. X-ray of the right shoulder was obtained for pain shows a mild soft tissue swelling. There is incidentally a 1.7 cm oval lucency along the humerus which is a nonspecific finding. Three-month radiograph follow-up recommended patient also having some shortness of breath. Troponin is slightly elevated 0.035. Multiple previous troponins have been elevated as well. EKG elevation. Troponin will be trended. He was given aspirin. Patient will be admitted for further management. - Lab Data Result diagrams: 12/03/21 12:24 12/03/21 12:24 Lab Results 12/03/21 12/03/21 12/03/21 Range/Units 12:24 12:24 12:24 WBC 8.5 (3.8-10.6) k/uL RBC 4.01 L (4.30-5.90) m/uL Hgb 11.4 L (13.0-17.5) gm/dL Hct 36.8 L (39.0-53.0) % MCV 91.8 (80.0-100.0) fL MCH 28.4 (25.0-35.0) pg MCHC 30.9 L (31.0-37.0) g/dL RDW 17.2 H (11.5-15.5) % Plt Count 220 (150-450) k/uL MPV 7.2 Neutrophils % 86 % Lymphocytes % 7 % Monocytes % 4 % Eosinophils % 1 % Basophils % 1 % Neutrophils # 7.3 (1.3-7.7) k/uL Lymphocytes # 0.6 L (1.0-4.8) k/uL Monocytes # 0.3 (0-1.0) k/uL Eosinophils # 0.0 (0-0.7) k/uL Basophils # 0.1 (0-0.2) k/uL Hypochromasia Slight Anisocytosis Slight PT 10.2 (9.0-12.0) sec INR 0.9 (<1.2) APTT 24.5 (22.0-30.0) sec Sodium 138 (137-145) mmol/L Potassium 3.9 (3.5-5.1) mmol/L Chloride 102 (98-107) mmol/L Carbon Dioxide 19 L (22-30) mmol/L Anion Gap 17 mmol/L BUN 9 (9-20) mg/dL Creatinine 0.62 L (0.66-1.25) mg/dL Est GFR (CKD-EPI)AfAm >90 (>60 ml/min/1.73 sqM) Est GFR (CKD-EPI)NonAf >90 (>60 ml/min/1.73 sqM) Glucose 140 H (74-99) mg/dL Plasma Lactic Acid Jesse (0.7-2.0) mmol/L Calcium 9.0 (8.4-10.2) mg/dL Magnesium 1.6 (1.6-2.3) mg/dL Total Bilirubin 1.1 (0.2-1.3) mg/dL AST 47 (17-59) U/L ALT 18 (4-49) U/L Alkaline Phosphatase 106 (38-126) U/L Troponin I (0.000-0.034) ng/mL NT-Pro-B Natriuret Pep pg/mL Total Protein 7.5 (6.3-8.2) g/dL Albumin 4.4 (3.5-5.0) g/dL Lipase 75 (23-300) U/L Serum Alcohol 23 mg/dL Coronavirus (PCR) (Not Detectd) Influenza Type A RNA (Not Detectd) Influenza Type B (PCR) (Not Detectd) 12/03/21 12/03/21 12/03/21 Range/Units 12:24 12:24 12:24 WBC (3.8-10.6) k/uL RBC (4.30-5.90) m/uL Hgb (13.0-17.5) gm/dL Hct (39.0-53.0) % MCV (80.0-100.0) fL MCH (25.0-35.0) pg MCHC (31.0-37.0) g/dL RDW (11.5-15.5) % Plt Count (150-450) k/uL MPV Neutrophils % % Lymphocytes % % Monocytes % % Eosinophils % % Basophils % % Neutrophils # (1.3-7.7) k/uL Lymphocytes # (1.0-4.8) k/uL Monocytes # (0-1.0) k/uL Eosinophils # (0-0.7) k/uL Basophils # (0-0.2) k/uL Hypochromasia Anisocytosis PT (9.0-12.0) sec INR (<1.2) APTT (22.0-30.0) sec Sodium (137-145) mmol/L Potassium (3.5-5.1) mmol/L Chloride (98-107) mmol/L Carbon Dioxide (22-30) mmol/L Anion Gap mmol/L BUN (9-20) mg/dL Creatinine (0.66-1.25) mg/dL Est GFR (CKD-EPI)AfAm (>60 ml/min/1.73 sqM) Est GFR (CKD-EPI)NonAf (>60 ml/min/1.73 sqM) Glucose (74-99) mg/dL Plasma Lactic Acid Jesse (0.7-2.0) mmol/L Calcium (8.4-10.2) mg/dL Magnesium (1.6-2.3) mg/dL Total Bilirubin (0.2-1.3) mg/dL AST (17-59) U/L ALT (4-49) U/L Alkaline Phosphatase (38-126) U/L Troponin I 0.035 H* (0.000-0.034) ng/mL NT-Pro-B Natriuret Pep 384 pg/mL Total Protein (6.3-8.2) g/dL Albumin (3.5-5.0) g/dL Lipase (23-300) U/L Serum Alcohol mg/dL Coronavirus (PCR) (Not Detectd) Influenza Type A RNA Not Detected (Not Detectd) Influenza Type B (PCR) Not Detected (Not Detectd) 12/03/21 12/03/21 Range/Units 12:24 12:24 WBC (3.8-10.6) k/uL RBC (4.30-5.90) m/uL Hgb (13.0-17.5) gm/dL Hct (39.0-53.0) % MCV (80.0-100.0) fL MCH (25.0-35.0) pg MCHC (31.0-37.0) g/dL RDW (11.5-15.5) % Plt Count (150-450) k/uL MPV Neutrophils % % Lymphocytes % % Monocytes % % Eosinophils % % Basophils % % Neutrophils # (1.3-7.7) k/uL Lymphocytes # (1.0-4.8) k/uL Monocytes # (0-1.0) k/uL Eosinophils # (0-0.7) k/uL Basophils # (0-0.2) k/uL Hypochromasia Anisocytosis PT (9.0-12.0) sec INR (<1.2) APTT (22.0-30.0) sec Sodium (137-145) mmol/L Potassium (3.5-5.1) mmol/L Chloride (98-107) mmol/L Carbon Dioxide (22-30) mmol/L Anion Gap mmol/L BUN (9-20) mg/dL Creatinine (0.66-1.25) mg/dL Est GFR (CKD-EPI)AfAm (>60 ml/min/1.73 sqM) Est GFR (CKD-EPI)NonAf (>60 ml/min/1.73 sqM) Glucose (74-99) mg/dL Plasma Lactic Acid Jesse 5.8 H* (0.7-2.0) mmol/L Calcium (8.4-10.2) mg/dL Magnesium (1.6-2.3) mg/dL Total Bilirubin (0.2-1.3) mg/dL AST (17-59) U/L ALT (4-49) U/L Alkaline Phosphatase (38-126) U/L Troponin I (0.000-0.034) ng/mL NT-Pro-B Natriuret Pep pg/mL Total Protein (6.3-8.2) g/dL Albumin (3.5-5.0) g/dL Lipase (23-300) U/L Serum Alcohol mg/dL Coronavirus (PCR) Not Detected (Not Detectd) Influenza Type A RNA (Not Detectd) Influenza Type B (PCR) (Not Detectd) Disposition Clinical Impression: Shoulder pain, Elevated troponin, Fever, Lactic acidosis, Humerus lesion, right, Alcohol withdrawal Disposition: ADMITTED IP TO THIS HOSP Is patient prescribed a controlled substance at d/c from ED?: No Referrals: [facility] [Primary Care Provider] - 1-2 days Time of Disposition: 14:35
[2021-12-03 12:36] LABS: Anisocytosis Slight; Basophils # (A) 0.1 k/uL (0-0.2); Basophils % (A) 1 %; Eosinophils % (A) 1 %; HCT 36.8 % (39.0-53.0); HGB 11.4 gm/dL (13.0-17.5); Hypochromasia Slight; Lymphocytes # (A) 0.6 k/uL (1.0-4.8); Lymphocytes % (A) 7 %; MCH 28.4 pg (25.0-35.0); MCHC 30.9 g/dL (31.0-37.0); MCV 91.8 fL (80.0-100.0); Mean Platelet Volume 7.2; Monocytes # (A) 0.3 k/uL (0-1.0); Monocytes % (A) 4 %; Neutrophils # (A) 7.3 k/uL (1.3-7.7); Neutrophils % (A) 86 %; Platelet Count 220 k/uL (150-450); RBC 4.01 m/uL (4.30-5.90); RDW 17.2 % (11.5-15.5); WBC 8.5 k/uL (3.8-10.6)
[2021-12-03 12:44] LABS: INR 0.9 (<1.2); Partial Thromboplastin Time 24.5 sec (22.0-30.0); Prothrombin Time 10.2 sec (9.0-12.0)
[2021-12-03 12:48] LABS: ALT 18 U/L (4-49); AST 47 U/L (17-59); African American GFR (CKD) >90 (>60 ml/min/1.73 sqM); Albumin 4.4 g/dL (3.5-5.0); Alcohol 23 mg/dL; Alkaline Phosphatase 106 U/L (38-126); Anion Gap 17 mmol/L; Blood Urea Nitrogen 9 mg/dL (9-20); Carbon Dioxide 19 mmol/L (22-30); Chloride 102 mmol/L (98-107); Glucose 140 mg/dL (74-99); Lipase 75 U/L (23-300); Magnesium 1.6 mg/dL (1.6-2.3); Non-African American GFR(CKD) >90 (>60 ml/min/1.73 sqM); Potassium 3.9 mmol/L (3.5-5.1); Sodium 138 mmol/L (137-145); Total Bilirubin 1.1 mg/dL (0.2-1.3); Total Protein 7.5 g/dL (6.3-8.2)
--- NOTE | 2021-12-03 13:05 | XR ---
EXAMINATION TYPE: XR chest 2V DATE OF EXAM: 12/03/2021 COMPARISON: 02/18/2021 HISTORY: 56-year-old male with chest pain and shortness of breath TECHNIQUE: AP and lateral views FINDINGS: Heart upper limits of normal in size. Continued prominent asymmetric elevation left hemidiaphragm. He patic flexure of the colon interposed below the right hemidiaphragm. Old fracture deformities right-s ided ribs. Unchanged, chronic interstitial prominence. IMPRESSION: More pronounced asymmetric elevation left hemidiaphragm now. If concern for hemidiaphragmatic paralys is, a fluoroscopic sniff test can be performed.
--- NOTE | 2021-12-03 13:11 | XR ---
EXAMINATION TYPE: XR shoulder complete 3 views RT DATE OF EXAM: 12/03/2021 Comparison: None Clinical History: 56-year-old male pain Findings: Mild degenerative joint space narrowing AC joint. There may be some mild soft tissue swelling overlyi ng the superior aspect of the shoulder. Subacromial space is preserved. An oval, 1.7 cm lucent area w ith narrow zone of transition within the lateral proximal humeral shaft cortex. No periostitis or ero sive change seen. No acute fracture, subluxation, or dislocation. Healed right-sided rib fracture def ormities. Impression: 1. Mild soft tissue swelling along the superior aspect of the shoulder. Query any recent injury. 2. Mild AC joint OA. No acute osseous abnormality seen. 3. Old right-sided rib fracture deformities. There is also a 1.7 cm oval cortical lucency demonstrati ng narrow zone of transition along the lateral aspect of the proximal humeral shaft. This is a nonspe cific finding. Atypical appearance for neoplasm. Possible sequela of old trauma or infection. Correla te to exclude any past medical history of underlying primary neoplasm. Unless symptomatic, 3 month ra diographic follow up recommended as a conservative measure.
[2021-12-03] MEDS ORDERED: THIAMINE 100 MG/ML 2 ML VIAL IM STA (14:38)
[2021-12-03] MEDS ORDERED: LORazepam 2 MG/ML INJ IV PRN ×3 (14:38)
[2021-12-03] MEDS ORDERED: ONDANSETRON 4 MG/2 ML VIAL IVP PRN (14:52)
[2021-12-03] MEDS ORDERED: ACETAMINOPHEN TAB 325 MG TAB PO PRN (14:52)
[2021-12-03] MEDS ORDERED: NALOXONE 0.4 MG/ML 1 ML VIAL IV PRN (14:52)
[2021-12-03] MEDS ORDERED: ALBUTEROL NEBULIZED 2.5 MG/3 ML INHALATION PRN (14:53)
--- NOTE | 2021-12-03 15:27 | P.HPIM ---
History of Present Illness H&P Date: 12/03/21 Chief Complaint: Chest pain Patient is a 56-year-old male with PMH of alcohol abuse, COPD, GERD, hypertension, CAD with history of 2 stents, bipolar disorder presents the ED for chest pain and withdrawal-like symptoms. Patient reports chest pain that has been ongoing since 7 AM. Chest pain is midsternal, pressure-like in nature, nonradiating, constant, 7 out of 10 in severity. His chest pain was associated with shortness of breath and diaphoresis. He also reports right shoulder pain that has been ongoing since falling at [employer] a few days prior to presentation. Patient reports drinking a pint of vodka daily. He reports shaking, nausea but no vomiting, palpitations which she relates to withdrawing from alcohol. He denies any alcohol induced seizures. He denies any head trauma or syncopal episodes. He denies any headache, lower extremity edema, fever or chills, cough, palpitations, changes in urination or bowel habits. No changes in appetite or weight. He denies any dizziness, numbness/weakness/tingling of extremities. In the ED, he was noted to be hypertensive with a BP of 165/106, heart rate of 117 and T-max of 100.1 Fahrenheit. CBC showed hemoglobin of 11.4 with MCV of 91.8. White dilation profile negative. CMP showed a bicarb of 19, glucose of 140. Lactic acid was 5.8. Troponin was 0.035 with EKG showing no ST elevation. Lipase was negative. Serum alcohol was 23. COVID-19 negative. Chest x-ray showed asymmetric elevation of the left hemidiaphragm. 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 Patient is admitted for further management of his symptoms. Review of systems was performed and is negative except above. General: [non toxic], [no distress], [tremulous] Derm: [warm], [dry] Head: [atraumatic], [normocephalic], [symmetric] Eyes: [EOMI], [no lid lag], [anicteric sclera] Mouth: [no lip lesion], [mucus membranes moist] Cardiovascular: [Tachycardic], [no murmur], [positive DP pulse bilateral] Lungs: [CTA bilateral], [no rhonchi, no rales] , [no accessory muscle use] Abdominal: [soft], [ nontender to palpation], [no guarding], [no appreciable organomegaly] Ext: [no gross muscle atrophy], [no edema], [no contractures], [restricted range of motion of the right shoulder due to pain] Neuro: [ CN II-XI grossly intact], [no focal neuro deficits] Psych: [Alert], [oriented], [appropriate affect] Assessment and Plan #Chest pain with elevated troponin and history of CAD #Alcohol intoxication with impending withdrawal #Right shoulder pain #Lactic acidosis #Normocytic anemia #Obesity #Smoker Chronic conditions: COPD, GERD, hypertension, bipolar disorder Patient presents with chest pain that appears to be typical in nature also complaining of alcohol withdrawal symptoms. 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 Initial troponin is 0.035 with EKG showing sinus tachycardia and Q waves in V1 and V2. Troponins will be trended and ACS will be ruled out. Echocardiogram has been ordered. Telemetry monitoring will be ordered. Cardiology will be consulted for further management of this patient. Restart aspirin, Lipitor, metoprolol and Brilinta for history of CAD. Patient will be started on CIWA protocol and given Ativan as needed. His right shoulder pain is likely related to a fall that he suffered prior to presentation. Right shoulder x-ray recommends repeat x-ray in 3 months. He will need to follow-up with his PCP for further evaluation. PT and OT will be consulted to work with this patient. His lactic acidosis is likely related to dehydration. He'll be started on normal saline at 130 mL per hour. Lactic acid to be repeated until negative. Patient would benefit from a structured weight loss program. Patient was offered a nicotine patch which he refused. He'll be started on albuterol neb as needed for shortness of breath and wheezing. Restart Prilosec for history of GERD. Restart lisinopril and Aldactone for history of hypertension. Restart Lamictal and Cymbalta for history of bipolar disorder and anxiety. DVT prophylaxis: [Heparin] Discussed with: [Patient, ED physician] Anticipated discharge: [2-3 days] Anticipated discharge place: [Home] A total of [45] minutes was spent on the care of this complex patient more than 50% of the time was spent in counseling and care coordination. Patient names his mother decision maker if he can't make decisions for himself. Patient would like to be full code. Past Medical History Past Medical History: COPD, GERD/Reflux, GI Bleed, Hypertension, Myocardial Infarction ([place]), Pneumonia, Renal Disease, Skin Disorder Additional Past Medical History / Comment(s): ETOH abuse with delirium tremors, lower GI bleed, IBS, chronic iron deficiency anemia, hypomagnesemia, hyperbilirubinemia, anorexia, vertigo, nephrolithiasis-passed stone on his own, chronic low back/cervical pain, DDD, kyphosis, scoliosis, coccyx pressure ulcer pt states is mostly healed. Dry and itchy skin back in high school. 2 heart attacks, one in December (2020) second in February (2020). Last Myocardial Infarction Date:: February 2021 History of Any Multi-Drug Resistant Organisms: None Reported Past Surgical History: Bariatric Surgery, Heart Catheterization With Stent, Hernia Repair, Orthopedic Surgery, Tonsillectomy Additional Past Surgical History / Comment(s): Right inner Forearm-metal plate, gastric bypass, incisional hernia surgery x2, EGDs, colonoscopies. 2 Stents placed in December 2020. Past Anesthesia/Blood Transfusion Reactions: No Reported Reaction Date of Last Stent Placement:: 2020 Past Psychological History: Anxiety, Bipolar, Depression, PTSD Smoking Status: Current every day smoker Past Alcohol Use History: Abuse, Daily, Heavy Past Drug Use History: Cocaine, Heroin, Marijuana - Past Family History Mother Family Medical History: Hypertension Additional Family Medical History / Comment(s): Lupus. Mother is living. Father Family Medical History: Liver Disease Additional Family Medical History / Comment(s): ETOH abuse. of cirrhosis complications. Medications and Allergies Home Medications Medication Instructions Recorded Confirmed Type Ticagrelor [Brilinta] 90 mg PO BID 02/18/21 12/03/21 History lisinopriL [Zestril] 2.5 mg PO DAILY 02/18/21 12/03/21 History Aspirin EC [Ecotrin Low Dose] 81 mg PO DAILY 03/30/21 12/03/21 History Atorvastatin [Lipitor] 80 mg PO HS 03/30/21 12/03/21 History Nitroglycerin Sl Tabs [Nitrostat] 0.4 mg SL Q5M PRN 03/30/21 12/03/21 History Spironolactone 25 mg PO DAILY 03/30/21 12/03/21 History Omeprazole 20 mg PO DAILY 30 Days #0 04/04/21 12/03/21 Rx DULoxetine HCL [Cymbalta] 60 mg PO DAILY 04/12/21 12/03/21 History Metoprolol Tartrate [Lopressor] 25 mg PO BID 04/12/21 12/03/21 History Naltrexone HCl [Revia] 50 mg PO DAILY 09/05/21 12/03/21 History Albuterol Sulfate [Proair Hfa] 2 puff INHALATION RT-QID PRN 10/11/21 12/03/21 History Fluticasone/Vilanterol [Breo 1 puff INHALATION RT-DAILY 10/11/21 12/03/21 History Ellipta 100-25 Mcg Inhaler] Menthol [Biofreeze] 1 applic TOPICAL TID PRN 10/11/21 12/03/21 History lamoTRIgine [LaMICtal] 100 mg PO BID 10/11/21 12/03/21 History Menthol [Biofreeze] 1 applic TOPICAL TID PRN 12/03/21 12/03/21 History Allergies Allergy/AdvReac Type Severity Reaction Status Date / Time No Known Allergies Allergy Verified 12/03/21 13:33 Physical Exam Vitals: Vital Signs Temp Pulse Resp BP Pulse Ox 12/03/21 13:33 99.5 F 96 18 129/91 97 12/03/21 11:52 100.1 F H 117 H 20 165/106 95 Intake and Output 12/03/21 12/03/21 12/03/21 06:59 14:59 22:59 Other: Weight 74.843 kg Results CBC & Chem 7: 12/03/21 12:24 12/03/21 12:24 Labs: Abnormal Lab Results - Last 24 Hours (Table) 12/03/21 12/03/21 12/03/21 Range/Units 12:24 12:24 12:24 RBC 4.01 L (4.30-5.90) m/uL Hgb 11.4 L (13.0-17.5) gm/dL Hct 36.8 L (39.0-53.0) % MCHC 30.9 L (31.0-37.0) g/dL RDW 17.2 H (11.5-15.5) % Lymphocytes # 0.6 L (1.0-4.8) k/uL Carbon Dioxide 19 L (22-30) mmol/L Creatinine 0.62 L (0.66-1.25) mg/dL Glucose 140 H (74-99) mg/dL Plasma Lactic Acid Jesse (0.7-2.0) mmol/L Troponin I 0.035 H* (0.000-0.034) ng/mL 12/03/21 Range/Units 12:24 RBC (4.30-5.90) m/uL Hgb (13.0-17.5) gm/dL Hct (39.0-53.0) % MCHC (31.0-37.0) g/dL RDW (11.5-15.5) % Lymphocytes # (1.0-4.8) k/uL Carbon Dioxide (22-30) mmol/L Creatinine (0.66-1.25) mg/dL Glucose (74-99) mg/dL Plasma Lactic Acid Jesse 5.8 H* (0.7-2.0) mmol/L Troponin I (0.000-0.034) ng/mL
[2021-12-03 16:07] LABS: Appearance,Urine Clear (Clear); Bilirubin,Urine Negative (Negative); Blood,Urine Moderate (Negative); Color,Urine Yellow; Glucose,Urine (UA) Negative (Negative); Hyaline Casts,Urine 1 /lpf (0-2); Ketones,Urine Negative (Negative); Leukocyte Esterase,Urine Small (Negative); Mucus,Urine Rare /hpf; Nitrite,Urine Negative (Negative); PH, Urine 5.5 (5.0-8.0); Protein,Urine 1+ (Negative); RBC,Urine 38 /hpf (0-5); Specific Gravity,Urine 1.017 (1.001-1.035); Squamous Epithelial Cell,Urine <1 /hpf (0-4); WBC,Urine 10 /hpf (0-5)
[2021-12-03] MEDS: HEPARIN SODIUM,PORCINE/PF 5,000 UNIT/0.5 ML SYRINGE SQ SCH (17:57)
[2021-12-03] MEDS: THIAMINE 100 MG TAB PO SCH (17:57)
[2021-12-03] MEDS: METOPROLOL TARTRATE 25 MG TAB PO SCH (20:27)
[2021-12-03] MEDS: lamoTRIgine 100 MG TAB PO SCH (20:29)
[2021-12-03] MEDS: TICAGRELOR 90 MG TAB PO SCH (20:30)
[2021-12-03] MEDS: ATORVASTATIN 80 MG TAB PO SCH (20:30)
[2021-12-04] MEDS: HEPARIN SODIUM,PORCINE/PF 5,000 UNIT/0.5 ML SYRINGE SQ SCH ×3 (00:08→17:06)
[2021-12-04] MEDS: THIAMINE 100 MG TAB PO SCH ×2 (06:32→17:06)
[2021-12-04 07:16] LABS: Anisocytosis Slight; Basophils # (A) 0.1 k/uL (0-0.2); Basophils % (A) 1 %; Eosinophils # (A) 0.2 k/uL (0-0.7); Eosinophils % (A) 3 %; HCT 33.2 % (39.0-53.0); HGB 10.2 gm/dL (13.0-17.5); Hypochromasia Marked; Lymphocytes # (A) 0.9 k/uL (1.0-4.8); Lymphocytes % (A) 15 %; MCH 29.1 pg (25.0-35.0); MCHC 30.8 g/dL (31.0-37.0); MCV 94.7 fL (80.0-100.0); Mean Platelet Volume 7.9; Monocytes # (A) 0.3 k/uL (0-1.0); Monocytes % (A) 5 %; Neutrophils # (A) 4.3 k/uL (1.3-7.7); Neutrophils % (A) 73 %; Platelet Count 161 k/uL (150-450); RBC 3.51 m/uL (4.30-5.90); RDW 17.2 % (11.5-15.5); WBC 5.9 k/uL (3.8-10.6)
[2021-12-04 07:30] LABS: African American GFR (CKD) >90 (>60 ml/min/1.73 sqM); Anion Gap 4 mmol/L; Blood Urea Nitrogen 13 mg/dL (9-20); Calcium 7.9 mg/dL (8.4-10.2); Carbon Dioxide 25 mmol/L (22-30); Chloride 110 mmol/L (98-107); Glucose 93 mg/dL (74-99); Non-African American GFR(CKD) >90 (>60 ml/min/1.73 sqM); Potassium 3.7 mmol/L (3.5-5.1); Sodium 139 mmol/L (137-145)
[2021-12-04] MEDS: lamoTRIgine 100 MG TAB PO SCH ×2 (08:32→21:22)
[2021-12-04] MEDS: METOPROLOL TARTRATE 25 MG TAB PO SCH ×2 (08:35→21:22)
[2021-12-04] MEDS: ASPIRIN 81 MG PO SCH (08:35)
[2021-12-04] MEDS: SPIRONOLACTONE 25 MG TAB PO SCH (08:35)
[2021-12-04] MEDS: PANTOPRAZOLE 40 MG TABLET PO SCH (08:35)
[2021-12-04] MEDS: TICAGRELOR 90 MG TAB PO SCH ×2 (08:35→21:22)
[2021-12-04] MEDS: DULoxetine HCL 60 MG CAPSULE.DR PO SCH (08:35)
[2021-12-04] MEDS ORDERED: ASPIRIN 325 MG TAB PO SCH (09:00)
--- NOTE | 2021-12-04 14:28 | P.PN ---
Subjective Progress Note Date: 12/04/21 Principal diagnosis: Chest pain, R shoulder pain, EtOH withdrawal Patient was seen and examined. No acute events overnight. Patient reports improvement in his withdrawal-like symptoms since yesterday. He reports complete resolution of his chest pain. Improvement in right shoulder pain. No Ativan received since yesterday. General: [non toxic], [no distress], [appears at stated age] Derm: [warm], [dry] Head: [atraumatic], [normocephalic], [symmetric] Eyes: [EOMI], [no lid lag], [anicteric sclera] Mouth: [no lip lesion], [mucus membranes moist] Cardiovascular: [S1S2 reg], [no murmur] Lungs: [CTA bilateral], [no rhonchi, no rales] , [no accessory muscle use] Ext: [no gross muscle atrophy], [no edema], [no contractures] Neuro: [no focal neuro deficits] Psych: [Alert], [oriented], [appropriate affect] Assessment and Plan #Chest pain with elevated troponin and history of CAD #Alcohol intoxication with impending withdrawal #Right shoulder pain #Normocytic anemia #Obesity #Smoker Resolved: Lactic acidosis Chronic conditions: COPD, GERD, hypertension, bipolar disorder Patient presents with chest pain that appears to be typical in nature also complaining of alcohol withdrawal symptoms. 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 Initial troponin is 0.035 with EKG showing sinus tachycardia and Q waves in V1 and V2. Repeat troponins 0.041 and 0.037, ACS ruled out. Echocardiogram has been ordered. Telemetry monitori ng will be ordered. Cardiology will be consulted for further management of this patient. Restart aspirin, Lipitor, metoprolol and Brilinta for history of CAD. Patient will be started on CIWA protocol and given Ativan as needed. His right shoulder pain is likely related to a fall that he suffered prior to presentation. Right shoulder x-ray recommends repeat x-ray in 3 months. He will need to follow-up with his PCP for further evaluation. PT and OT will be consulted to work with this patient. Patient would benefit from a structured weight loss program. Patient was offered a nicotine patch which he refused. He'll be started on albuterol neb as needed for shortness of breath and wheezi ng. Restart Prilosec for history of GERD. Restart lisinopril and Aldactone for history of hypertension. Restart Lamictal and Cymbalta for history of bipolar disorder and anxiety. DVT prophylaxis: [Heparin] Discussed with: [Patient] Anticipated discharge: [1-2 days] Anticipated discharge place: [Home] A total of [45] minutes was spent on the care of this complex patient more than 50% of the time was spent in counseling and care coordination. Patient names his mother decision maker if he can't make decisions for himself. Patient would like to be full code. Patient improving. Unfortunately Echocardiogram is not available today. Anticipate DC home tomorrow after Echocardiogram results are back. Objective - Vital Signs Vital signs: Vital Signs Temp 98.6 F 12/04/21 11:46 Pulse 65 12/04/21 11:46 Resp 20 12/04/21 11:46 BP 150/88 12/04/21 11:46 Pulse Ox 97 12/04/21 11:46 Intake & Output 12/03/21 12/04/21 12/04/21 18:59 06:59 18:59 Intake Total 90 118 Output Total 0 350 Balance 90 -350 118 Weight 74.843 kg Intake: Oral 90 118 Output: Urine 0 350 Other: Voiding Method Urinal # Voids 1 # Bowel Movements 1 - Labs CBC & Chem 7: 12/04/21 06:23 12/04/21 06:23 Labs: Abnormal Lab Results - Last 24 Hours (Table) 12/03/21 12/03/21 12/03/21 Range/Units 15:09 15:58 20:10 RBC (4.30-5.90) m/uL Hgb (13.0-17.5) gm/dL Hct (39.0-53.0) % MCHC (31.0-37.0) g/dL RDW (11.5-15.5) % Lymphocytes # (1.0-4.8) k/uL Chloride (98-107) mmol/L Creatinine (0.66-1.25) mg/dL Calcium (8.4-10.2) mg/dL Troponin I 0.041 H* 0.037 H* (0.000-0.034) ng/mL Urine Protein 1+ H (Negative) Urine Blood Moderate H (Negative) Ur Leukocyte Esterase Small H (Negative) Urine RBC 38 H (0-5) /hpf Urine WBC 10 H (0-5) /hpf Urine Mucus Rare H (None) /hpf 12/04/21 12/04/21 Range/Units 06:23 06:23 RBC 3.51 L (4.30-5.90) m/uL Hgb 10.2 L (13.0-17.5) gm/dL Hct 33.2 L (39.0-53.0) % MCHC 30.8 L (31.0-37.0) g/dL RDW 17.2 H (11.5-15.5) % Lymphocytes # 0.9 L (1.0-4.8) k/uL Chloride 110 H (98-107) mmol/L Creatinine 0.52 L (0.66-1.25) mg/dL Calcium 7.9 L (8.4-10.2) mg/dL Troponin I (0.000-0.034) ng/mL Urine Protein (Negative) Urine Blood (Negative) Ur Leukocyte Esterase (Negative) Urine RBC (0-5) /hpf Urine WBC (0-5) /hpf Urine Mucus (None) /hpf Microbiology - Last 24 Hours (Table) 11/03/21 12:40 Blood Culture Gram Stain - Preliminary Blood 12/03/21 12:40 Blood Culture - Final Blood
--- NOTE | 2021-12-04 14:59 | P.CRDCN ---
History of Present Illness History of present illness: HISTORY OF PRESENTING ILLNESS Patient is a pleasant 56-year-old male with history of tobacco abuse, alcohol abuse, coronary artery disease status post PCI of proximal LAD 12/25/2020, ischemic cardiomyopathy with ejection fraction 40-45% who presents secondary to chest pain. 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 He was found to have 100% RCA stenosis with left to right collaterals, mild 30% circumflex stenosis and a 100% stenosis of the mid LAD. Patient underwent stenting of the mid LAD however there was more distal LAD occlusion which was treated medically. Since December he has been having multiple admissions for psychiatric issues, depression and chest pains. He states he has been doing fairly well however has gone back to drinking frequently and had a DUI 3 weeks ago. He has been atte mpting to stop his drinking and therefore stopped drinking and 4 hours later started having shaking sensation, feeling jittery, feeling nauseous, breaking out in a sweat and started having chest pain. He also admits he has not been taking all of his medications over last few weeks. His blood pressure is elevated 160s over 100s on presentation. He was given some Ativan with improvement in his symptoms. He denies any significant chest pain or pressure currently. Troponins noted to be minimally elevated 0.04, 0.03 similar to prior presentations. Creatinine normal at 0.5, hemoglobin 10.2. EKG shows sinus rhythm, Q waves V1 and V2, Q waves in 3, aVF no significant ST, T-wave abnormalities REVIEW OF SYSTEMS At the time of my exam: CONSTITUTIONAL: Denies fever or chills. CARDIOVASCULAR: +chest pain, no shortness of breath, orthopnea, PND or palpitations. RESPIRATORY: Denies cough. GASTROINTESTINAL: Denies abdominal pain, diarrhea, constipation, +nausea no vomiting. MUSCULOSKELETAL: Denies myalgias. NEUROLOGIC: Denies numbness, tingling or weakness. ENDOCRINE: Denies fatigue, weight change, polydipsia or polyurina. GENITOURINARY: Denies burning, hematuria or urgency with micturation. HEMATOLOGIC: Denies history of anemia or bleeding. PHYSICAL EXAMINATION Vital signs reviewed. CONSTITUTIONAL: No apparent distress, chronically ill appearing. HEENT: Head is normocephalic. Pupils are equal, round. Sclerae anicteric. Mucous membranes of the mouth are moist. No JVD. No carotid bruit. CHEST EXAMINATION: Lungs are clear to auscultation. No chest wall tenderness is noted on palpation or with deep breathing. HEART EXAMINATION: Regular rate and rhythm. S1, S2 heard. No murmurs, gallops or rub. ABDOMEN: Soft, nontender. Positive bowel sounds. EXTREMITIES: 2+ peripheral pulses, no lower extremity edema and no calf tenderness. NEUROLOGIC EXAMINATION: Patient is awake, alert and oriented x3. ASSESSMENT 1. Episode of chest pain appears related to detox with associated clammy chills, nausea improved with Ativan 2. Chronically elevated troponins similar to prior presentation 3. Coronary artery disease with previous PCI LAD 4. Hypertension 5. Medical noncompliance 6. Alcohol abuse 7. Anemia 8. Ischemic cardiomyopathy of 40-45% PLAN Patient's chest pain is atypical and appears more related to detox seen and was improved with Ativan. Also questionable compliance as patient has not been following up in office and recently has not been taking his medications. Troponins chronically elevated similar to prior. Patient does have residual RCA disease as well as distal LAD however nothing appears related to acute coronary syndrome and would continue to treat medically. Check 2-D echo. Possible discharge tomorrow if patient stable without any change in symptoms and no significant change on echo. Past Medical History Past Medical History: COPD, GERD/Reflux, GI Bleed, Hypertension, Myocardial Infarction ([place]), Pneumonia, Skin Disorder Additional Past Medical History / Comment(s): ETOH abuse with delirium tremors, lower GI bleed, IBS, chronic iron deficiency anemia, hypomagnesemia, hype rbilirubinemia, anorexia, vertigo, nephrolithiasis-passed stone on his own, chronic low back/cervical pain, DDD, kyphosis, scoliosis, coccyx pressure ulcer pt states is mostly healed. Dry and itchy skin back in high school. 2 heart attacks, one in December (2020) second in February (2020). Last Myocardial Infarction Date:: February 2021 History of Any Multi-Drug Resistant Organisms: None Reported Past Surgical History: Bariatric Surgery, Heart Catheterization With Stent, Hernia Repair, Orthopedic Surgery, Tonsillectomy Additional Past Surgical History / Comment(s): Right inner Forearm-metal plate, gastric bypass, incisional hernia surgery x2, EGDs, colonoscopies. 2 Stents placed in December 2020. Past Anesthesia/Blood Transfusion Reactions: No Reported Reaction Date of Last Stent Placement:: 2020 Smoking Status: Current every day smoker - Past Family History Mother Family Medical History: Hypertension Additional Family Medical History / Comment(s): Lupus. Mother is living. Father Family Medical History: Liver Disease Additional Family Medical History / Comment(s): ETOH abuse. of cirrhosis complications. Medications and Allergies Home Medications Medication Instructions Recorded Confirmed Type Ticagrelor [Brilinta] 90 mg PO BID 02/18/21 12/03/21 History lisinopriL [Zestril] 2.5 mg PO DAILY 02/18/21 12/03/21 History Aspirin EC [Ecotrin Low Dose] 81 mg PO DAILY 03/30/21 12/03/21 History Atorvastatin [Lipitor] 80 mg PO HS 03/30/21 12/03/21 History Nitroglycerin Sl Tabs [Nitrostat] 0.4 mg SL Q5M PRN 03/30/21 12/03/21 History Spironolactone 25 mg PO DAILY 03/30/21 12/03/21 History Omeprazole 20 mg PO DAILY 30 Days #0 04/04/21 12/03/21 Rx DULoxetine HCL [Cymbalta] 60 mg PO DAILY 04/12/21 12/03/21 History Metoprolol Tartrate [Lopressor] 25 mg PO BID 04/12/21 12/03/21 History Naltrexone HCl [Revia] 50 mg PO DAILY 09/05/21 12/03/21 History Albuterol Sulfate [Proair Hfa] 2 puff INHALATION RT-QID PRN 10/11/21 12/03/21 History Fluticasone/Vilanterol [Breo 1 puff INHALATION RT-DAILY 10/11/21 12/03/21 History Ellipta 100-25 Mcg Inhaler] Menthol [Biofreeze] 1 applic TOPICAL TID PRN 10/11/21 12/03/21 History lamoTRIgine [LaMICtal] 100 mg PO BID 10/11/21 12/03/21 History Menthol [Biofreeze] 1 applic TOPICAL TID PRN 12/03/21 12/03/21 History Allergies Allergy/AdvReac Type Severity Reaction Status Date / Time No Known Allergies Allergy Verified 12/03/21 13:33 Physical Exam Vitals: Vital Signs Temp Pulse Pulse Resp BP BP Pulse Ox 12/04/21 11:46 98.6 F 65 20 150/88 97 12/04/21 08:00 98.2 F 69 20 149/87 97 12/04/21 04:00 98.2 F 72 16 145/91 97 12/04/21 01:46 68 18 12/04/21 00:00 98 F 68 18 135/84 97 12/03/21 20:00 99.2 F 90 18 133/78 96 12/03/21 17:48 99.8 F H 77 20 151/90 98 12/03/21 16:00 81 16 137/89 97 Intake and Output 12/03/21 12/04/21 12/04/21 22:59 06:59 14:59 Intake Total 90 118 Output Total 0 350 Balance 90 -350 118 Intake: Oral 90 118 Output: Urine 0 350 Other: Voiding Method Urinal Urinal # Voids 1 # Bowel Movements 1 Weight 74.843 kg Results 12/04/21 06:23 12/04/21 06:23 Cardiac Enzymes 12/03/21 12/03/21 Range/Units 15:09 20:10 Troponin I 0.041 H* 0.037 H* (0.000-0.034) ng/mL CBC 12/04/21 Range/Units 06:23 WBC 5.9 (3.8-10.6) k/uL RBC 3.51 L (4.30-5.90) m/uL Hgb 10.2 L (13.0-17.5) gm/dL Hct 33.2 L (39.0-53.0) % Plt Count 161 (150-450) k/uL Comprehensive Metabolic Panel 12/04/21 Range/Units 06:23 Sodium 139 (137-145) mmol/L Potassium 3.7 (3.5-5.1) mmol/L Chloride 110 H (98-107) mmol/L Carbon Dioxide 25 (22-30) mmol/L BUN 13 (9-20) mg/dL Creatinine 0.52 L (0.66-1.25) mg/dL Glucose 93 (74-99) mg/dL Calcium 7.9 L (8.4-10.2) mg/dL Current Medications Generic Name Dose Route Start Last Admin Trade Name Freq PRN Reason Stop Dose Admin Acetaminophen 650 mg 12/03/21 14:52 Acetaminophen Tab 325 Mg Tab PO Q6HR PRN Mild Pain or Fever > 100.5 Hydrocodone Bitart/Acetaminophen 1 each 12/03/21 14:52 Hydrocodone/Apap 5-325mg 1 Each Tab PO Q4HR PRN Moderate Pain Albuterol Sulfate 2.5 mg 12/03/21 14:53 Albuterol Nebulized 2.5 Mg/3 Ml INHALATION RT-QID PRN Shortness Of Breath Or Wheezing Aspirin 81 mg 12/04/21 09:00 12/04/21 08:35 Aspirin 81 Mg PO 81 mg DAILY ROLA Administration Atorvastatin Calcium 80 mg 12/03/21 21:00 12/03/21 20:30 Atorvastatin 80 Mg Tab PO 80 mg HS ROLA Administration Duloxetine HCl 60 mg 12/04/21 09:00 12/04/21 08:35 Duloxetine Hcl 60 Mg Capsule.Dr PO 60 mg DAILY ROLA Administration Heparin Sodium (Porcine) 5,000 unit 12/03/21 16:00 12/04/21 08:35 Heparin Sodium,Porcine/Pf 5,000 Unit/0.5 Ml Syringe SQ 5,000 unit Q8HR ROLA Administration Lamotrigine 100 mg 12/03/21 21:00 12/04/21 08:32 Lamotrigine 100 Mg Tab PO Not Given BID ROLA Lisinopril 2.5 mg 12/04/21 09:00 12/04/21 08:35 Lisinopril 2.5 Mg Tab PO 2.5 mg DAILY ROLA Administration Lorazepam 1 mg 12/03/21 14:38 12/03/21 17:57 Lorazepam 2 Mg/Ml Inj IV 1 mg Q2HR PRN Administration CIWA 8 or 9 Lorazepam 1 mg 12/03/21 14:38 Lorazepam 2 Mg/Ml Inj IV Q1HR PRN CIWA 10 to 15 Lorazepam 2 mg 12/03/21 14:38 Lorazepam 2 Mg/Ml Inj IV 12/05/21 14:39 Q10M PRN CIWA 16 or higher Metoprolol Tartrate 25 mg 12/03/21 21:00 12/04/21 08:35 Metoprolol Tartrate 25 Mg Tab PO 25 mg BID ROLA Administration Naloxone HCl 0.2 mg 12/03/21 14:52 Naloxone 0.4 Mg/Ml 1 Ml Vial IV Q2M PRN Opioid Reversal Ondansetron HCl 4 mg 12/03/21 14:52 Ondansetron 4 Mg/2 Ml Vial IVP Q8HR PRN Nausea And Vomiting Pantoprazole Sodium 40 mg 12/04/21 09:00 12/04/21 08:35 Pantoprazole 40 Mg Tablet PO 40 mg DAILY ROLA Administration Spironolactone 25 mg 12/04/21 09:00 12/04/21 08:35 Spironolactone 25 Mg Tab PO 25 mg DAILY ROLA Administration Thiamine HCl 100 mg 12/03/21 17:30 12/04/21 06:32 Thiamine 100 Mg Tab PO 100 mg BID-W/MEALS ROLA Administration Ticagrelor 90 mg 12/03/21 21:00 12/04/21 08:35 Ticagrelor 90 Mg Tab PO 90 mg BID ROLA Administration Intake and Output 12/03/21 12/04/21 12/04/21 22:59 06:59 14:59 Intake Total 90 118 Output Total 0 350 Balance 90 -350 118 Intake: Oral 90 118 Output: Urine 0 350 Other: Voiding Method Urinal Urinal # Voids 1 # Bowel Movements 1 Weight 74.843 kg 12/04/21 06:23 12/04/21 06:23
[2021-12-04 16:16] LABS: Chol/HDL Ratio 2.43 Ratio; LDL Cholesterol,Calculated 65.5 mg/dL (0.0-131.0)
[2021-12-04] MEDS: ATORVASTATIN 80 MG TAB PO SCH (21:22)
[2021-12-04] MEDS: HYDROcodone/APAP 5-325MG 1 EACH TAB PO PRN (21:24)
[2021-12-05] MEDS: HEPARIN SODIUM,PORCINE/PF 5,000 UNIT/0.5 ML SYRINGE SQ SCH ×4 (00:03→23:32)
[2021-12-05] MEDS: THIAMINE 100 MG TAB PO SCH ×2 (06:32→15:52)
[2021-12-05] MEDS: PANTOPRAZOLE 40 MG TABLET PO SCH (08:50)
[2021-12-05] MEDS: METOPROLOL TARTRATE 25 MG TAB PO SCH ×2 (08:50→20:54)
[2021-12-05] MEDS: SPIRONOLACTONE 25 MG TAB PO SCH (08:50)
[2021-12-05] MEDS: DULoxetine HCL 60 MG CAPSULE.DR PO SCH (08:50)
[2021-12-05] MEDS: TICAGRELOR 90 MG TAB PO SCH ×2 (08:50→20:54)
[2021-12-05] MEDS: ASPIRIN 81 MG PO SCH (08:50)
[2021-12-05] MEDS: lamoTRIgine 100 MG TAB PO SCH ×2 (08:50→20:54)
--- NOTE | 2021-12-05 10:36 | CA ---
Transthoracic Echo Report Name: Jonathan Parsons Age: 56 Gender: M : 1965 Exam Date: 12/05/2021 07:58 Exam Location: [facility] Ht (in): 67 Wt (lb): 165 Ordering Physician: Miladys Morfin MD Attending/Referring Phys: Remelt Operator Nikole Lopez RDCS Procedure CPT: Indications: Chest Pain Cardiac Hx: Technical Quality: Fair Contrast 1: Total Dose (mL): Contrast 2: Total Dose (mL): MEASUREMENTS (Male / Female) Normal Values 2D ECHO LV Diastolic Diameter PLAX 4.3 cm 4.2 - 5.9 / 3.9 - 5.3 cm LV Systolic Diameter PLAX 2.6 cm IVS Diastolic Thickness 1.4 cm 0.6 - 1.0 / 0.6 - 0.9 cm LVPW Diastolic Thickness 1.3 cm 0.6 - 1.0 / 0.6 - 0.9 cm LV Relative Wall Thickness 0.6 LA Systolic Diameter LX 3.2 cm 3.0 - 4.0 / 2.7 - 3.8 cm LA Volume 76.8 cm??? 18 - 58 / 22 - 52 cm??? M-MODE Aortic Root Diameter MM 3.8 cm MV E Point Septal Separation 3.1 cm AV Cusp Separation MM 2.2 cm DOPPLER AV Peak Velocity 134.4 cm/s AV Peak Gradient 7.2 mmHg MV Area PHT 3.1 cm??? Mitral E Point Velocity 78.0 cm/s Mitral A Point Velocity 123.5 cm/s Mitral E to A Ratio 0.6 MV Deceleration Time 248.1 ms MV E' Velocity 5.6 cm/s Mitral E to MV E' Ratio 14.0 FINDINGS Left Ventricle Left ventricular ejection fraction is estimated at 40-45 %. Left ventricular cavity size normal. Moderate concentric left ventricular hypertrophy. Apical septum, apical inferior, apical anterior hypokinesis Right Ventricle Right ventricle not well visualized. Right Atrium Normal right atrial size. Left Atrium Moderately increased left atrial volume. Mildly increased left atrial area. No evidence for an atrial septal defect. Mitral Valve Structurally normal mitral valve. No mitral stenosis, regurgitation or prolapse. Aortic Valve No aortic valve stenosis or regurgitation. Tricuspid Valve No tricuspid stenosis, regurgitation or prolapse. Pulmonic Valve Pulmonic valve not well visualized. Pericardium Normal pericardium. Aorta Mild aortic dilatation at the level of the sinuses of valsalva (root). CONCLUSIONS Mildly impaired LV function with EF between 40-45% See above for details Previewed by: Dr. Balta Bird MD (Electronically Signed) Final Date: 05 Dec 2021 10:35
[2021-12-05 11:22] LABS: Anisocytosis Slight; Basophils # (A) 0.1 k/uL (0-0.2); Basophils % (A) 1 %; Eosinophils # (A) 0.2 k/uL (0-0.7); Eosinophils % (A) 2 %; HCT 41.4 % (39.0-53.0); HGB 12.3 gm/dL (13.0-17.5); Hypochromasia Marked; Lymphocytes # (A) 1.3 k/uL (1.0-4.8); Lymphocytes % (A) 16 %; MCH 28.4 pg (25.0-35.0); MCHC 29.6 g/dL (31.0-37.0); Macrocytosis Slight; Mean Platelet Volume 8.5; Monocytes # (A) 0.3 k/uL (0-1.0); Monocytes % (A) 4 %; Neutrophils # (A) 6.4 k/uL (1.3-7.7); Neutrophils % (A) 75 %; Platelet Count 141 k/uL (150-450); RBC 4.31 m/uL (4.30-5.90); RDW 17.2 % (11.5-15.5); WBC 8.5 k/uL (3.8-10.6)
[2021-12-05 11:36] LABS: ALT 17 U/L (4-49); AST 38 U/L (17-59); African American GFR (CKD) >90 (>60 ml/min/1.73 sqM); Albumin 4.2 g/dL (3.5-5.0); Alkaline Phosphatase 114 U/L (38-126); Anion Gap 7 mmol/L; Blood Urea Nitrogen 12 mg/dL (9-20); C Reactive Protein <0.5 mg/dL (<1.0); Calcium 8.7 mg/dL (8.4-10.2); Carbon Dioxide 25 mmol/L (22-30); Chloride 104 mmol/L (98-107); Glucose 103 mg/dL (74-99); Non-African American GFR(CKD) >90 (>60 ml/min/1.73 sqM); Potassium 3.6 mmol/L (3.5-5.1); Sodium 136 mmol/L (137-145); Total Bilirubin 1.2 mg/dL (0.2-1.3); Total Protein 7.5 g/dL (6.3-8.2)
--- NOTE | 2021-12-05 11:47 | P.PN ---
Subjective Patient was examined at bedside not complaining of any new symptomatology. He denies any worsening shortness of breath, chest or palpitations. He did have some urinary complaints including dysuria. He did have subjective chills and fevers on admission however not today. Objective - Vital Signs Vital signs: Vital Signs Temp 98.5 F 12/05/21 08:00 Pulse 75 12/05/21 08:00 Resp 18 12/05/21 08:00 BP 124/70 12/05/21 08:00 Pulse Ox 98 12/05/21 08:00 Intake & Output 12/04/21 12/05/21 12/05/21 18:59 06:59 18:59 Intake Total 236 Balance 236 Intake: Oral 236 Other: Voiding Method Toilet Urinal # Voids 1 3 # Bowel Movements 1 - Exam General: [non toxic], [no distress], [appears at stated age] Derm: [warm], [dry] Head: [atraumatic], [normocephalic], [symmetric] Eyes: [EOMI], [no lid lag], [anicteric sclera] Mouth: [no lip lesion], [mucus membranes moist] Cardiovascular: [S1S2 reg], [no murmur] Lungs: [CTA bilateral], [no rhonchi, no rales] , [no accessory muscle use] Ext: [no gross muscle atrophy], [no edema], [no contractures] Neuro: [no focal neuro deficits] Psych: [Alert], [oriented], [appropriate affect] - Labs CBC & Chem 7: 12/05/21 10:55 12/05/21 10:55 Labs: Abnormal Lab Results - Last 24 Hours (Table) 12/04/21 12/05/21 12/05/21 Range/Units 06:23 10:55 10:55 Hgb 12.3 L (13.0-17.5) gm/dL MCHC 29.6 L (31.0-37.0) g/dL RDW 17.2 H (11.5-15.5) % Plt Count 141 L (150-450) k/uL Sodium 136 L (137-145) mmol/L Glucose 103 H (74-99) mg/dL HDL Cholesterol 61.30 H (40.00-60.00) mg/dL Microbiology - Last 24 Hours (Table) 04/14/22 12:40 Blood Culture Gram Stain - Final Blood Blood Culture - Final Coagulase Negative Staph Coagulase Negative Staph#2 12/03/21 15:00 Blood Culture - Preliminary Blood No Growth after 24 hours Assessment and Plan Assessment: Assessment: #Chest pain with elevated troponin and history of CAD #Alcohol intoxication with impending withdrawal #Bacteremia staph - source unknown Blood cultures #Right shoulder pain #Normocytic anemia #Obesity #Smoker Resolved: Lactic acidosis Chronic conditions: COPD, GERD, hypertension, bipolar disorder Plan: -Admit to medicine for close monitoring -Aspiration/fall precaution -Continue Cipro protocol -2-D echocardiogram pending -Repeat blood cultures growing staph? O coordinate care with ID as well -Repeat urinalysis patient complaining of Some dysuria -DVT prophylaxis heparin
--- NOTE | 2021-12-05 11:50 | P.PN ---
Subjective HISTORY OF PRESENTING ILLNESS Patient is a pleasant 56-year-old male with history of tobacco abuse, alcohol abuse, coronary artery disease status post PCI of proximal LAD 12/25/2020, ischemic cardiomyopathy with ejection fraction 40-45% who presents secondary to chest pain. 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 He was found to have 100% RCA stenosis with left to right collaterals, mild 30% circumflex stenosis and a 100% stenosis of the mid LAD. Patient underwent stenting of the mid LAD however there was more distal LAD occlusion which was treated medically. Since December he has been having multiple admissions for psychiatric issues, depression and chest pains. He states he has been doing fairly well however has gone back to drinking frequently and had a DUI 3 weeks ago. He has been attempting to stop his drinking and therefore stopped drinking and 4 hours later started having shaking sensation, feeling jittery, feeling nauseous, breaking out in a sweat and started having chest pain. He also admits he has not been taking all of his medications over last few weeks. His blood pressure is elevated 160s over 100s on presentation. He was given some Ativan with improvement in his symptoms. He denies any significant chest pain or pressure currently. Troponins noted to be minimally elevated 0.04, 0.03 similar to prior presentations. Creatinine normal at 0.5, hemoglobin 10.2. EKG shows sinus rhythm, Q waves V1 and V2, Q waves in 3, aVF no significant ST, T-wave abnormalities 12/05 Patient seen and examined. Patient denies any further chest pain or pressure. Does have chronic shortness breath however no significant change. Echo performed with continued similar EF 40-45% with apical LAD distribution hypokinesis. PHYSICAL EXAMINATION Vital signs reviewed. CONSTITUTIONAL: No apparent distress, chronically ill appearing. HEENT: Head is normocephalic. Pupils are equal, round. Sclerae anicteric. Mucous membranes of the mouth are moist. No JVD. No carotid bruit. CHEST EXAMINATION: Lungs are clear to auscultation. No chest wall tenderness is noted on palpation or with deep breathing. HEART EXAMINATION: Regular rate and rhythm. S1, S2 heard. No murmurs, gallops or rub. ABDOMEN: Soft, nontender. Positive bowel sounds. EXTREMITIES: 2+ peripheral pulses, no lower extremity edema and no calf tenderness. NEUROLOGIC EXAMINATION: Patient is awake, alert and oriented x3. ASSESSMENT 1. Episode of chest pain appears related to detox with associated clammy chills, nausea improved with Ativan 2. Chronically elevated troponins similar to prior presentation 3. Coronary artery disease with previous PCI LAD 4. Hypertension 5. Medical noncompliance 6. Alcohol abuse 7. Anemia 8. Ischemic cardiomyopathy of 40-45% PLAN Go shows no significant change from prior with continued EF 40-45% with apical LAD distribution hypokinesis. Chest pain not typical of acute coronary syndrome and chronically elevated troponins with no significant change in EF from prior. Continue treatment medically. Symptoms appear related to detox. Patient stable from a cardiology standpoint for discharge with outpatient follow-up with Dr. Chaudhari. Objective - Vital Signs Vital signs: Vital Signs Temp 98.5 F 12/05/21 08:00 Pulse 75 12/05/21 08:00 Resp 18 12/05/21 08:00 BP 124/70 12/05/21 08:00 Pulse Ox 98 12/05/21 08:00 Intake & Output 12/04/21 12/05/21 12/05/21 18:59 06:59 18:59 Intake Total 236 Balance 236 Intake: Oral 236 Other: Voiding Method Toilet Urinal # Voids 1 3 # Bowel Movements 1 - Labs CBC & Chem 7: 12/05/21 10:55 12/05/21 10:55 Labs: Abnormal Lab Results - Last 24 Hours (Table) 12/04/21 12/05/21 12/05/21 Range/Units 06:23 10:55 10:55 Hgb 12.3 L (13.0-17.5) gm/dL MCHC 29.6 L (31.0-37.0) g/dL RDW 17.2 H (11.5-15.5) % Plt Count 141 L (150-450) k/uL Sodium 136 L (137-145) mmol/L Glucose 103 H (74-99) mg/dL HDL Cholesterol 61.30 H (40.00-60.00) mg/dL Microbiology - Last 24 Hours (Table) 11/03/21 12:40 Blood Culture Gram Stain - Final Blood Blood Culture - Final Coagulase Negative Staph Coagulase Negative Staph#2 12/03/21 15:00 Blood Culture - Preliminary Blood No Growth after 24 hours
[2021-12-05] MEDS: ATORVASTATIN 80 MG TAB PO SCH (20:54)
--- NOTE | 2021-12-05 22:53 | P.CONS ---
History of Present Illness - Reason for Consult Consult date: 12/05/21 Staph bacteremia Requesting physician: Dre Mayfield - Chief Complaint chest pain x 1 day - History of Present Illness Patient is a 56-year male with a past medical he significant for COPD hypertension renal insufficiency history of smoking and drinking presented to the hospital 2 days ago for evaluation of the right shoulder pain that apparently has been going on for about a week no history of any trauma pain was mostly when lifting intensity 5-6 out of 10 no radiation patient also complaining of some chest pain and shortness of breath with the symptoms the patient was evaluated by ER physician on arrival to the ER the patient did have a low-grade fever 100.1 F patient fever subsequently resolved patient was not hypoxic or need for supplemental oxygen patient did have normal white count creatinine was normal liver enzymes are normal troponin was elevated UA was mildly positive COVID influenza PCR was negative serum alcohol level was 23 patient did have a chest x-ray asymmetric elevation left hemidiaphragm concern for hemidiaphragmatic paralysis, patient did have x-ray of the shoulder which did show some mild soft tissue swelling along the superior aspect of the shoulder question of mild trauma old rib fracture, patient did have a blood culture drawn which came back positive coagulase-negative staph that has prompted this infectious disease consultation patient currently not on any systemic antibiotic therapy Review of Systems Positive point has been mentioned in the HPI rest of the systems are negative Past Medical History Past Medical History: COPD, GERD/Reflux, GI Bleed, Hypertension, Myocardial Infarction ([place]), Pneumonia, Skin Disorder Additional Past Medical History / Comment(s): ETOH abuse with delirium tremors, lower GI bleed, IBS, chronic iron deficiency anemia, hypomagnesemia, hyperbilirubinemia, anorexia, vertigo, nephrolithiasis-passed stone on his own, chronic low back/cervical pain, DDD, kyphosis, scoliosis, coccyx pressure ulcer pt states is mostly healed. Dry and itchy skin back in high school. 2 heart attacks, one in December (2020) second in February (2020). Last Myocardial Infarction Date:: February 2021 History of Any Multi-Drug Resistant Organisms: None Reported Past Surgical History: Bariatric Surgery, Heart Catheterization With Stent, Fadia ia Repair, Orthopedic Surgery, Tonsillectomy Additional Past Surgical History / Comment(s): Right inner Forearm-metal plate, gastric bypass, incisional hernia surgery x2, EGDs, colonoscopies. 2 Stents placed in December 2020. Past Anesthesia/Blood Transfusion Reactions: No Reported Reaction Date of Last Stent Placement:: 2020 Smoking Status: Current every day smoker - Past Family History Mother Family Medical History: Hypertension Additional Family Medical History / Comment(s): Lupus. Mother is living. Father Family Medical History: Liver Disease Additional Family Medical History / Comment(s): ETOH abuse. of cirrhosis complications. Medications and Allergies Home Medications Medication Instructions Recorded Confirmed Type Ticagrelor [Brilinta] 90 mg PO BID 02/18/21 12/03/21 History lisinopriL [Zestril] 2.5 mg PO DAILY 02/18/21 12/03/21 History Aspirin EC [Ecotrin Low Dose] 81 mg PO DAILY 03/30/21 12/03/21 History Atorvastatin [Lipitor] 80 mg PO HS 03/30/21 12/03/21 History Nitroglycerin Sl Tabs [Nitrostat] 0.4 mg SL Q5M PRN 03/30/21 12/03/21 History Spironolactone 25 mg PO DAILY 03/30/21 12/03/21 History Omeprazole 20 mg PO DAILY 30 Days #0 04/04/21 12/03/21 Rx DULoxetine HCL [Cymbalta] 60 mg PO DAILY 04/12/21 12/03/21 History Metoprolol Tartrate [Lopressor] 25 mg PO BID 04/12/21 12/03/21 History Naltrexone HCl [Revia] 50 mg PO DAILY 09/05/21 12/03/21 History Albuterol Sulfate [Proair Hfa] 2 puff INHALATION RT-QID PRN 10/11/21 12/03/21 History Fluticasone/Vilanterol [Breo 1 puff INHALATION RT-DAILY 10/11/21 12/03/21 History Ellipta 100-25 Mcg Inhaler] Menthol [Biofreeze] 1 applic TOPICAL TID PRN 10/11/21 12/03/21 History lamoTRIgine [LaMICtal] 100 mg PO BID 10/11/21 12/03/21 History Menthol [Biofreeze] 1 applic TOPICAL TID PRN 12/03/21 12/03/21 History Allergies Allergy/AdvReac Type Severity Reaction Status Date / Time No Known Allergies Allergy Verified 12/03/21 13:33 Physical Exam Vitals: Vital Signs Temp Pulse Resp BP Pulse Ox 12/05/21 04:00 98.7 F 64 18 132/84 94 L 12/05/21 02:00 65 18 12/05/21 00:00 99.2 F 65 18 129/81 97 12/04/21 20:00 98.6 F 74 20 153/94 97 12/04/21 16:38 99.9 F H 70 20 131/84 97 12/04/21 11:46 98.6 F 65 20 150/88 97 Intake and Output 12/04/21 12/05/21 12/05/21 22:59 06:59 14:59 Intake Total 118 Balance 118 Intake: Oral 118 Other: Voiding Method Toilet Toilet Urinal Urinal # Voids 3 GENERAL DESCRIPTION: Middle-aged male lying in bed, no distress. No tachypnea or accessory muscle of respiration use. HEENT: Shows Pallor , no scleral icterus. Oral mucous membrane is dry. No pharyngeal erythema or thrush NECK: Trachea central, no thyromegaly. LUNGS: Unlabored breathing. Clear to auscultation anteriorly. No wheeze or crackle. HEART: S1, S2, regular rate and rhythm. No loud murmur ABDOMEN: Soft, no tenderness , guarding or rigidity, no organomegaly EXTREMITIES: No edema of feet. SKIN: No rash, no masses palpable. NEUROLOGICAL: The patient is awake, alert, oriented x3, mood and affect normal. Results CBC & Chem 7: 12/05/21 10:55 12/05/21 10:55 Labs: Abnormal Lab Results - Last 24 Hours (Table) 12/04/21 Range/Units 06:23 HDL Cholesterol 61.30 H (40.00-60.00) mg/dL Microbiology - Last 24 Hours (Table) 11/03/21 12:40 Blood Culture Gram Stain - Preliminary Blood Blood Culture - Preliminary Coagulase Negative Staph 12/03/21 15:00 Blood Culture - Preliminary Blood No Growth after 24 hours 12/03/21 12:40 Blood Culture - Final Blood Assessment and Plan (1) Bacteremia Current Visit: Yes Status: Acute Code(s): R78.81 - BACTEREMIA SNOMED Code(s): 8529926 Plan: 1patient with a positive blood culture with gram-positive cocci has been finalized with coagulase-negative staph to strain more likely contamination as the patient will have any clinical disease to go along with, repeat blood culture has been negative so far. 2patient did have a low-grade fever on admission questionable viral syndrome as no other obvious focus clinically behaving as pneumonia abdominal soft frontal examination and no evidence of cellulitis. 3we will check a CRP procalcitonin repeat a urine culture We will follow on clinical condition and cultures to further adjust medication if needed Thank you for this consultation will follow this patient along with you Time with Patient: Greater than 30
[2021-12-06 03:08] LABS: Appearance,Urine Clear (Clear); Bacteria,Urine Rare /hpf; Bilirubin,Urine Negative (Negative); Blood,Urine Large (Negative); Color,Urine Yellow; Glucose,Urine (UA) Negative (Negative); Ketones,Urine Trace (Negative); Leukocyte Esterase,Urine Trace (Negative); Mucus,Urine Rare /hpf; Nitrite,Urine Negative (Negative); PH, Urine 6.5 (5.0-8.0); Protein,Urine Trace (Negative); RBC,Urine >182 /hpf (0-5); Specific Gravity,Urine 1.021 (1.001-1.035); Squamous Epithelial Cell,Urine <1 /hpf (0-4); Urobilinogen,Urine >12.0 mg/dL (<2.0); WBC,Urine 7 /hpf (0-5)
[2021-12-06] MEDS: THIAMINE 100 MG TAB PO SCH (06:40)
[2021-12-06] MEDS: METOPROLOL TARTRATE 25 MG TAB PO SCH (08:56)
[2021-12-06] MEDS: DULoxetine HCL 60 MG CAPSULE.DR PO SCH (08:56)
[2021-12-06] MEDS: PANTOPRAZOLE 40 MG TABLET PO SCH (08:56)
[2021-12-06] MEDS: lamoTRIgine 100 MG TAB PO SCH (08:56)
[2021-12-06] MEDS: TICAGRELOR 90 MG TAB PO SCH (08:56)
[2021-12-06] MEDS: HYDROcodone/APAP 5-325MG 1 EACH TAB PO PRN (08:57)
[2021-12-06] MEDS: SPIRONOLACTONE 25 MG TAB PO SCH (08:57)
[2021-12-06] MEDS: ASPIRIN 81 MG PO SCH (08:57)
[2021-12-06] MEDS: HEPARIN SODIUM,PORCINE/PF 5,000 UNIT/0.5 ML SYRINGE SQ SCH (08:58)
--- NOTE | 2021-12-06 15:40 | P.DS ---
Providers Date of admission: 12/03/21 14:44 Attending physician: Indra Shearer MD Consults: 12/05/21 07:49 Consult Physician Routine Consulting Provider: Jim Parks Consult Reason/Comments: staph bacteremia Do you want consulting provider notified?: Yes Primary care physician: [facility] Course: Patient is a 56-year-old male with PMH of alcohol abuse, COPD, GERD, hypertension, CAD with history of 2 stents, bipolar disorder presents the ED for chest pain and withdrawal-like symptoms. Patient reports chest pain that has been ongoing since 7 AM. Chest pain is midsternal, pressure-like in nature, nonradiating, constant, 7 out of 10 in severity. His chest pain was associated with shortness of breath and diaphoresis. He also reports right shoulder pain that has been ongoing since falling at [place] a few days prior to presentation. Patient reports drinking a pint of vodka daily. He reports shaking, nausea but no vomiting, palpitations which she relates to withdrawing from alcohol. He denies any alcohol induced seizures. He denies any head trauma or syncopal episodes. He denies any headache, lower extremity edema, fever or chills, cough, palpitations, changes in urination or bowel habits. No changes in appetite or weight. He denies any dizziness, numbness/weakness/tingling of extremities. In the ED, he was noted to be hypertensive with a BP of 165/106, heart rate of 117 and T-max of 100.1 Fahrenheit. CBC showed hemoglobin of 11.4 with MCV of 91.8. White dilation profile negative. CMP showed a bicarb of 19, glucose of 140. Lactic acid was 5.8. Troponin was 0.035 [address]KG showing no [address] elevation. Lipase was negative. Serum alcohol was 23. COVID-19 negative. Chest x-ray showed asymmetric elevation of the left hemidiaphragm. 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 Patient is admitted for further management of his symptoms. She was evaluated by cardiology team. He has stated that the chest pain is atypical and appears more related to his detox since it did improve with Ativan. 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 Troponins continued to be chronically elevated similar to prior. Patient does have residual RCA disease as well as distal LAD however nothing appears related to acute cardiac syndrome at this time as per cardiology. 2-D echocardiogram was evaluated by the service. The patient is okay to be discharged from their perspective. I also did speak with infectious disease given a abnormal blood culture. Recommended to send the patient home on Ceftin 500 mg twice a day for possible UTI. As the patient was having some urinary symptoms. At this time he is okay to be discharged to follow with primary care doctor cardiology within 1 week of discharge. His also been educated regarding alcohol cessation and is doing well today during my examination. Vital signs are stable. Plan - Discharge Summary Discharge Rx Participant: No New Discharge Prescriptions: New Cefuroxime Axetil [Ceftin] 500 mg PO BID 7 Days #14 tab Continue lisinopriL [Zestril] 2.5 mg PO DAILY Spironolactone 25 mg PO DAILY Atorvastatin [Lipitor] 80 mg PO HS Omeprazole 20 mg PO DAILY 30 Days #0 lamoTRIgine [LaMICtal] 100 mg PO BID Menthol [Biofreeze] 1 applic TOPICAL TID PRN PRN Reason: NECK PAIN Ticagrelor [Brilinta] 90 mg PO BID Aspirin EC [Ecotrin Low Dose] 81 mg PO DAILY Nitroglycerin Sl Tabs [Nitrostat] 0.4 mg SL Q5M PRN PRN Reason: Chest Pain DULoxetine HCL [Cymbalta] 60 mg PO DAILY Metoprolol Tartrate [Lopressor] 25 mg PO BID Naltrexone HCl [Revia] 50 mg PO DAILY Albuterol Sulfate [Proair Hfa] 2 puff INHALATION RT-QID PRN PRN Reason: Shortness Of Breath Fluticasone/Vilanterol [Breo Ellipta 100-25 Mcg Inhaler] 1 puff INHALATION RT-DAILY Menthol [Biofreeze] 1 applic TOPICAL TID PRN PRN Reason: Pain Discharge Medication List Ticagrelor [Brilinta] 90 mg PO BID 02/18/21 [History] lisinopriL [Zestril] 2.5 mg PO DAILY 02/18/21 [History] Aspirin EC [Ecotrin Low Dose] 81 mg PO DAILY 03/30/21 [History] Atorvastatin [Lipitor] 80 mg PO HS 03/30/21 [History] Nitroglycerin Sl Tabs [Nitrostat] 0.4 mg SL Q5M PRN 03/30/21 [History] Spironolactone 25 mg PO DAILY 03/30/21 [History] Omeprazole 20 mg PO DAILY 30 Days #0 04/04/21 [Rx] DULoxetine HCL [Cymbalta] 60 mg PO DAILY 04/12/21 [History] Metoprolol Tartrate [Lopressor] 25 mg PO BID 04/12/21 [History] Naltrexone HCl [Revia] 50 mg PO DAILY 09/05/21 [History] Albuterol Sulfate [Proair Hfa] 2 puff INHALATION RT-QID PRN 10/11/21 [History] Fluticasone/Vilanterol [Breo Ellipta 100-25 Mcg Inhaler] 1 puff INHALATION RT- DAILY 10/11/21 [History] Menthol [Biofreeze] 1 applic TOPICAL TID PRN 10/11/21 [History] lamoTRIgine [LaMICtal] 100 mg PO BID 10/11/21 [History] Menthol [Biofreeze] 1 applic TOPICAL TID PRN 12/03/21 [History] Cefuroxime Axetil [Ceftin] 500 mg PO BID 7 Days #14 tab 12/06/21 [Rx] Follow up Appointment(s)/Referral(s): [facility] [Primary Care Provider] - 1-2 days Jaun Chaudhari MD [STAFF PHYSICIAN] - 1 Week Discharge Disposition: HOME SELF-CARE
[2021-12-06 16:27] VITALS: RESP 16
[2021-12-06 16:28] VITALS: BP 109/78; PULSE 62; TEMP 97.8
== END 2021-12-06 18:56 | disposition home or self-care (01) | DRG 897 ==
LOC: EC 11:50 → 3SCARD 14:44
PROVIDERS: ADMIT Internal Medicine; ATTEND Internal Medicine
DX: F10.131 Alcohol abuse with withdrawal delirium (principal); E87.2 Acidosis; N39.0 Urinary tract infection, site not specified; Y90.1 Blood alcohol level of 20-39 mg/100 ml; R07.89 Other chest pain; R77.8 Other specified abnormalities of plasma proteins; D50.9 Iron deficiency anemia, unspecified; E86.0 Dehydration; F17.210 Nicotine dependence, cigarettes, uncomplicated; F31.9 Bipolar disorder, unspecified; F43.10 Post-traumatic stress disorder, unspecified; I10 Essential (primary) hypertension; I25.10 Atherosclerotic heart disease of native coronary artery without angina pectoris; I25.2 Old myocardial infarction; I25.5 Ischemic cardiomyopathy; Z20.822 Contact with and (suspected) exposure to COVID-19; J44.9 Chronic obstructive pulmonary disease, unspecified; K21.9 Gastro-esophageal reflux disease without esophagitis; F10.129 Alcohol abuse with intoxication, unspecified; M19.90 Unspecified osteoarthritis, unspecified site; E80.6 Other disorders of bilirubin metabolism; M41.9 Scoliosis, unspecified; M54.2 Cervicalgia; N28.9 Disorder of kidney and ureter, unspecified; R42 Dizziness and giddiness; B95.8 Unspecified staphylococcus as the cause of diseases classified elsewhere; M25.511 Pain in right shoulder; Z28.311 Partially vaccinated for COVID-19; Z90.89 Acquired absence of other organs; Z98.890 Other specified postprocedural states; Z98.84 Bariatric surgery status; G89.29 Other chronic pain; E83.42 Hypomagnesemia; Z71.41 Alcohol abuse counseling and surveillance of alcoholic; Z79.02 Long term (current) use of antithrombotics/antiplatelets; Z79.82 Long term (current) use of aspirin; Z79.899 Other long term (current) drug therapy; Z82.49 Family history of ischemic heart disease and other diseases of the circulatory system; Z87.442 Personal history of urinary calculi; Z91.19 Patient's noncompliance with other medical treatment and regimen; Z95.5 Presence of coronary angioplasty implant and graft; Z81.1 Family history of alcohol abuse and dependence; Z84.89 Family history of other specified conditions
CPT/HCPCS: 36415; 71046; 80048; 80053; 80061; 80320; 81001; 83605; 83690; 83735; 83880; 84145; 84484; 85025; 85610; 85730; 86140; 87040; 87502; 87635; 93005; 93306; 96360; 96361; 96372; 96374; 99285

== ENCOUNTER 2022-08-19 12:59 | Emergency (ER) | payer MEDICARE, OTHER ==
[2022-08-19] MEDS ORDERED: SODIUM CHLORIDE 0.9% 1,000 ML IV ONE (13:56)
[2022-08-19] MEDS ORDERED: ONDANSETRON 4 MG/2 ML VIAL IVP STA (13:56)
[2022-08-19] MEDS ORDERED: FAMOTIDINE 20 MG/2 ML VIAL IV STA (13:56)
--- NOTE | 2022-08-19 14:03 | ED ---
General Adult HPI - General Chief complaint: GI Bleed Stated complaint: GI bleed Time Seen by Provider: 08/19/22 13:09 Source: EMS, RN notes reviewed Mode of arrival: EMS Limitations: no limitations - History of Present Illness Initial comments: 56-year-old male with a history of polysubstance abuse presents to the emergency department with dark stools. He reports dark stools for the last 4 days, and reports this morning he had a bowel movement with streaks of red blood. He reports that he has drank a fifth of vodka every day for the 6 last days. He admits to having GI bleed for the past. The last being "a few years ago ." He denies any dizziness, lightheadedness, headache, vision changes, chest pain, palpitations, shortness of breath. He does admit to accompanying symptoms of nausea and vomiting however denies any hematemesis. He states that he is unable to eat or drink anything. He reports that his last alcoholic drink was at approximately 02:00. denies Any trauma or falls. - Related Data Home Medications Medication Instructions Recorded Confirmed Aspirin EC [Ecotrin Low Dose] 81 mg PO DAILY 03/30/21 08/19/22 Atorvastatin [Lipitor] 80 mg PO HS 03/30/21 08/19/22 DULoxetine HCL [Cymbalta] 60 mg PO DAILY 04/12/21 08/19/22 Metoprolol Tartrate [Lopressor] 25 mg PO BID 04/12/21 08/19/22 Albuterol Sulfate [Proair Hfa] 2 puff INHALATION RT-QID PRN 10/11/21 08/19/22 Budesonide/Formoterol Fumarate 2 puff INHALATION RT-BID 08/19/22 08/19/22 [Symbicort 160-4.5 Mcg Inhaler] lisinopriL [Zestril] 5 mg PO DAILY 08/19/22 08/19/22 Previous Rx's Medication Instructions Recorded Omeprazole 20 mg PO DAILY 30 Days #0 04/04/21 Allergies Allergy/AdvReac Type Severity Reaction Status Date / Time No Known Allergies Allergy Verified 08/19/22 15:15 Review of Systems ROS Statement: Those systems with pertinent positive or pertinent negative responses have been documented in the HPI. ROS Other: All systems not noted in ROS Statement are negative. Past Medical History Past Medical History: COPD, GERD/Reflux, GI Bleed, Hypertension, Myocardial Infarction ([place]), Pneumonia, Skin Disorder Additional Past Medical History / Comment(s): ETOH abuse with delirium tremors, lower GI bleed, IBS, chronic iron deficiency anemia, hypomagnesemia, hyperbilirubinemia, anorexia, vertigo, nephrolithiasis-passed stone on his own, chronic low back/cervical pain, DDD, kyphosis, scoliosis, coccyx pressure ulcer pt states is mostly healed. Dry and itchy skin back in high school. 2 heart attacks, one in December (2020) second in February (2020). Last Myocardial Infarction Date:: February 2021 History of Any Multi-Drug Resistant Organisms: None Reported Past Surgical History: Bariatric Surgery, Heart Catheterization With Stent, Hernia Repair, Orthopedic Surgery, Tonsillectomy Additional Past Surgical History / Comment(s): Right inner Forearm-metal plate, gastric bypass, incisional hernia surgery x2, EGDs, colonoscopies. 2 Stents placed in December 2020. Past Anesthesia/Blood Transfusion Reactions: No Reported Reaction Date of Last Stent Placement:: 2020 Past Psychological History: Anxiety, Bipolar, Depression, PTSD Smoking Status: Current every day smoker Past Alcohol Use History: Abuse Past Drug Use History: None Reported - Past Family History Mother Family Medical History: Hypertension Additional Family Medical History / Comment(s): Lupus. Mother is living. Father Family Medical History: Liver Disease Additional Family Medical History / Comment(s): ETOH abuse. of cirrhosis complications. General Exam Limitations: no limitations General appearance: alert, in no apparent distress Head exam: Present: atraumatic, normocephalic, normal inspection Eye exam: Present: normal appearance, PERRL, EOMI. Absent: scleral icterus, conjunctival injection, periorbital swelling ENT exam: Present: normal exam, mucous membranes moist Neck exam: Present: normal inspection. Absent: tenderness, meningismus, lymphadenopathy Respiratory exam: Present: normal lung sounds bilaterally. Absent: respiratory distress, wheezes, rales, rhonchi, stridor Cardiovascular Exam: Present: regular rate, normal rhythm, normal heart sounds. Absent: systolic murmur, diastolic murmur, rubs, gallop, clicks GI/Abdominal exam: Present: soft, tenderness (LLQ), normal bowel sounds. Absent: distended, guarding, rebound, rigid Extremities exam: Present: normal inspection, full ROM, normal capillary refill. Absent: tenderness, pedal edema, joint swelling, calf tenderness Back exam: Present: normal inspection Neurological exam: Present: alert, oriented X3, CN II-XII intact Psychiatric exam: Present: normal affect, normal mood Skin exam: Present: warm, dry, intact, normal color. Absent: rash Course Vital Signs 08/19/22 13:01 Temperature 98.7 F Pulse Rate 87 Respiratory 18 Rate Blood Pressure 128/89 O2 Sat by Pulse 97 Oximetry - Reevaluation(s) Reevaluation #1: 08/19/22 14:54 Rectal exam performed with RN, Bhargavi present. No obvious blood in the rectal vault. Reevaluation #2: 08/19/22 15:34 Recent reevaluated. Patient updated on results. Reevaluation #3: 08/19/22 16:58 Should reevaluated. Patient is agreeable with the plan for transfer. EKG Findings - EKG Comments: EKG Findings:: I interpreted the following: EKG performed at 14:06. rate 81bpm, NSR with left axis deviation. IL 145, QRS 110, QT/Qtc 402/440 Medical Decision Making - Medical Decision Making Was pt. sent in by a medical professional or institution (, PA, TENANT COORDINATOR, urgent care, hospital, or shelter...) When possible be specific @ -[No] Did you speak to anyone other than the patient for history (EMS, parent, family, police, friend...)? What history was obtained from this source @ -[No] Did you review nursing and triage notes (agree or disagree)? Why? @ -[I reviewed and agree with nursing and triage notes] Were old charts reviewed (outside hosp., previous admission, EMS record, old EKG, old radiological studies, urgent care reports/EKG's, shelter records)? Report findings @ -[No old charts were reviewed] Differential Diagnosis (chest pain, altered mental status, abdominal pain women, abdominal pain men, vaginal bleeding, weakness, fever, dyspnea, syncope, headache, dizziness, GI bleed, back pain, seizure, CVA, palpatations, mental health)? @ -[not applicable] EKG interpreted by me (3pts min.). @ -[As above] X-rays interpreted by me (1pt min.). @ -[None done] CT interpreted by me (1pt min.). @ -[None done] U/S interpreted by me (1pt. min.). @ -[None done] What testing was considered but not performed or refused? (CT, X-rays, U/S, labs)? Why? @ -[None] What meds were considered but not given or refused? Why? @ -[None] Did you discuss the management of the patient with other professionals (professionals i.e. , PA, TENANT COORDINATOR, lab, RT, psych nurse, sr. social media & mobile manager, automation mechanic, teacher, contracts officer, rehabilitation case coordinator)? Give summary @ -[No] Was smoking cessation discussed for >3mins.? @ -[No] Was critical care preformed (if so, how long)? @ -[No] Were there social determinants of health that impacted care today? How? (Homelessness, low income, unemployed, alcoholism, drug addiction, transportation, low edu. Level, literacy, decrease access to med. care, [facility], rehab)? @ -[No] Was there de-escalation of care discussed even if they declined (Discuss DNR or withdrawal of care, Hospice)? DNR status @ -[No] What co-morbidities impacted this encounter? (DM, HTN, Smoking, COPD, CAD, Cancer, CVA, ARF, Chemo, Hep., AIDS, mental health diagnosis, sleep apnea, morbid obesity)? @ -[None] Was patient admitted / discharged? Hospital course, mention meds given and route, prescriptions, significant lab abnormalities, going to OR and other pertinent info. @ -56-year-old male presents the emergency department for melena. Patient had a history and sickle performed in the emergency department. Physical exam is essentially unremarkable heart rate regular rhythm, lung sounds clear to auscultation bilaterally, abdomen soft with mild tenderness to the left lower quadrant. No rebound no guarding. His black stool in the rectal vault, patient is Hemoccult positive. Patient was given 1 L of IV fluids and Protonix. Lab work is remarkable for hemoglobin 11.3. Case discussed with Dr. Tuyet Pitts who agrees and accepts the patient for transfer. Mallorie hammond was transferred in stable condition. Patient is agreeable for plan. Case discussed with Dr. Worthy, who agrees for ER to ER transfer. I discussed the case with Dr. Merrill beverly, MARGIEP who agrees with the current plan of care. Undiagnosed new problem with uncertain prognosis? @ -[No] Drug Therapy requiring intensive monitoring for toxicity (Heparin, Nitro, Insulin, Cardizem)? @ -[No] Were any procedures done? @ -[No] Diagnosis/symptom? @ -Upper GI bleed - melena - hx of alcohol abuse Acute, or Chronic, or Acute on Chronic? @ -acute Uncomplicated (without systemic symptoms) or Complicated (systemic symptoms)? @ -complicated Side effects of treatment? @ -[No] Exacerbation, Progression, or Severe Exacerbation? @ -[No] Poses a threat to life or bodily function? How? (Chest pain, [place], [place], pneumonia, PE, COPD, DKA, ARF, appy, cholecystitis, CVA, Diverticulitis, Homicidal, Suicidal, threat to staff... and all critical care pts) @ -[No] - Lab Data Result diagrams: 08/19/22 14:01 08/19/22 14:01 Lab Results 08/19/22 08/19/22 08/19/22 Range/Units 14:01 14:01 14:01 WBC 8.3 (3.8-10.6) k/uL RBC 4.26 L (4.30-5.90) m/uL Hgb 11.3 L (13.0-17.5) gm/dL Hct 35.7 L (39.0-53.0) % MCV 83.8 (80.0-100.0) fL MCH 26.6 (25.0-35.0) pg MCHC 31.8 (31.0-37.0) g/dL RDW 15.9 H (11.5-15.5) % Plt Count 307 (150-450) k/uL MPV 6.7 Neutrophils % 75 % Lymphocytes % 15 % Monocytes % 5 % Eosinophils % 2 % Basophils % 1 % Neutrophils # 6.2 (1.3-7.7) k/uL Lymphocytes # 1.2 (1.0-4.8) k/uL Monocytes # 0.4 (0-1.0) k/uL Eosinophils # 0.1 (0-0.7) k/uL Basophils # 0.1 (0-0.2) k/uL PT 10.1 (9.0-12.0) sec INR 0.9 (<1.2) APTT 25.5 (22.0-30.0) sec Sodium 134 L (137-145) mmol/L Potassium 4.6 (3.5-5.1) mmol/L Chloride 100 (98-107) mmol/L Carbon Dioxide 22 (22-30) mmol/L Anion Gap 12 mmol/L BUN 8 L (9-20) mg/dL Creatinine 0.48 L (0.66-1.25) mg/dL Est GFR (CKD-EPI)AfAm >90 (>60 ml/min/1.73 sqM) Est GFR (CKD-EPI)NonAf >90 (>60 ml/min/1.73 sqM) Glucose 117 H (74-99) mg/dL Calcium 9.2 (8.4-10.2) mg/dL Total Bilirubin 0.7 (0.2-1.3) mg/dL AST 34 (17-59) U/L ALT 21 (4-49) U/L Alkaline Phosphatase 124 (38-126) U/L Total Protein 7.3 (6.3-8.2) g/dL Albumin 4.3 (3.5-5.0) g/dL Stool Occult Blood (Negative) 08/19/22 Range/Units 14:22 WBC (3.8-10.6) k/uL RBC (4.30-5.90) m/uL Hgb (13.0-17.5) gm/dL Hct (39.0-53.0) % MCV (80.0-100.0) fL MCH (25.0-35.0) pg MCHC (31.0-37.0) g/dL RDW (11.5-15.5) % Plt Count (150-450) k/uL MPV Neutrophils % % Lymphocytes % % Monocytes % % Eosinophils % % Basophils % % Neutrophils # (1.3-7.7) k/uL Lymphocytes # (1.0-4.8) k/uL Monocytes # (0-1.0) k/uL Eosinophils # (0-0.7) k/uL Basophils # (0-0.2) k/uL PT (9.0-12.0) sec INR (<1.2) APTT (22.0-30.0) sec Sodium (137-145) mmol/L Potassium (3.5-5.1) mmol/L Chloride (98-107) mmol/L Carbon Dioxide (22-30) mmol/L Anion Gap mmol/L BUN (9-20) mg/dL Creatinine (0.66-1.25) mg/dL Est GFR (CKD-EPI)AfAm (>60 ml/min/1.73 sqM) Est GFR (CKD-EPI)NonAf (>60 ml/min/1.73 sqM) Glucose (74-99) mg/dL Calcium (8.4-10.2) mg/dL Total Bilirubin (0.2-1.3) mg/dL AST (17-59) U/L ALT (4-49) U/L Alkaline Phosphatase (38-126) U/L Total Protein (6.3-8.2) g/dL Albumin (3.5-5.0) g/dL Stool Occult Blood Positive (Negative) Disposition Clinical Impression: Melena, Upper GI bleeding Disposition: OTHER INSTITUTION NOT DEFINED Condition: Fair Instructions (If sedation given, give patient instructions): Gastrointestinal Bleeding (ED) Referrals: [facility] [Primary Care Provider] - 1-2 days Time of Disposition: 16:15 - Out of Hospital Transfer - Req. Specs Out of Hospital Transfer - Requested Specifics: Other Emergency Center ([facility])
[2022-08-19 14:35] LABS: Basophils # (A) 0.1 k/uL (0-0.2); Basophils % (A) 1 %; Eosinophils # (A) 0.1 k/uL (0-0.7); Eosinophils % (A) 2 %; HCT 35.7 % (39.0-53.0); HGB 11.3 gm/dL (13.0-17.5); Lymphocytes # (A) 1.2 k/uL (1.0-4.8); Lymphocytes % (A) 15 %; MCH 26.6 pg (25.0-35.0); MCHC 31.8 g/dL (31.0-37.0); MCV 83.8 fL (80.0-100.0); Mean Platelet Volume 6.7; Monocytes # (A) 0.4 k/uL (0-1.0); Monocytes % (A) 5 %; Neutrophils # (A) 6.2 k/uL (1.3-7.7); Neutrophils % (A) 75 %; Platelet Count 307 k/uL (150-450); RBC 4.26 m/uL (4.30-5.90); RDW 15.9 % (11.5-15.5); WBC 8.3 k/uL (3.8-10.6)
[2022-08-19 15:03] LABS: ALT 21 U/L (4-49); AST 34 U/L (17-59); African American GFR (CKD) >90 (>60 ml/min/1.73 sqM); Albumin 4.3 g/dL (3.5-5.0); Alkaline Phosphatase 124 U/L (38-126); Anion Gap 12 mmol/L; Blood Urea Nitrogen 8 mg/dL (9-20); Calcium 9.2 mg/dL (8.4-10.2); Carbon Dioxide 22 mmol/L (22-30); Chloride 100 mmol/L (98-107); Glucose 117 mg/dL (74-99); Non-African American GFR(CKD) >90 (>60 ml/min/1.73 sqM); Potassium 4.6 mmol/L (3.5-5.1); Sodium 134 mmol/L (137-145); Total Bilirubin 0.7 mg/dL (0.2-1.3); Total Protein 7.3 g/dL (6.3-8.2)
[2022-08-19 15:07] LABS: INR 0.9 (<1.2); Partial Thromboplastin Time 25.5 sec (22.0-30.0); Prothrombin Time 10.1 sec (9.0-12.0)
[2022-08-19] MEDS ORDERED: PANTOPRAZOLE 40 MG/10 ML VIAL IVP STA (15:21)
[2022-08-19 17:44] VITALS: BP 139/94; PULSE 93; RESP 16; TEMP 97.5
== END 2022-08-19 18:41 | disposition other institution (70) ==
LOC: EC 12:59
DX: K92.1 Melena (principal); I10 Essential (primary) hypertension; J44.9 Chronic obstructive pulmonary disease, unspecified; K21.9 Gastro-esophageal reflux disease without esophagitis; I25.2 Old myocardial infarction; F41.9 Anxiety disorder, unspecified; F31.9 Bipolar disorder, unspecified; F17.200 Nicotine dependence, unspecified, uncomplicated; Z79.82 Long term (current) use of aspirin; Z79.51 Long term (current) use of inhaled steroids; Z79.899 Other long term (current) drug therapy
CPT/HCPCS: 36415; 93005; 86900; 86901; 80053; 85025; 85610; 85730; 86850; 82272; 99285; 96374; 96375 ×2; 96361 ×2; J2405; C9113

== ENCOUNTER 2022-10-25 09:23 | Inpatient (IN) | payer MEDICARE, OTHER ==
--- NOTE | 2022-10-25 10:09 | ED ---
SOB HPI - General Source: patient, EMS, RN notes reviewed Mode of arrival: EMS Limitations: no limitations <Omar Triplett - Last Filed: 10/25/22 12:35> <Rula Kenny - Last Filed: 10/26/22 13:34> - General Chief Complaint: Shortness of Breath Stated Complaint: SOB Time Seen by Provider: 10/25/22 09:39 - History of Present Illness Initial Comments: 57-year-old male presented to the emergency Department with chief complaint shortness breath. Patient states he just got out of senior living states he took a hot shower states that this causes feel short of breath he was given a breathing treatment on the way and he states he feels greatly improved. Patient does have COPD, history of CHF. Patient denies any fevers or chills no productive cough. Patient states that he does have leg swelling which she's been wrapping his legs states that has been helping. Patient is currently on Bactrim for wounds which are healing up. Patient denies any associated symptoms. (Omar Triplett) - Related Data Home Medications Medication Instructions Recorded Confirmed Aspirin EC [Ecotrin Low Dose] 81 mg PO HS 03/30/21 10/25/22 Atorvastatin [Lipitor] 80 mg PO HS 03/30/21 10/25/22 DULoxetine HCL [Cymbalta] 60 mg PO HS 04/12/21 10/25/22 Metoprolol Tartrate [Lopressor] 25 mg PO BID 04/12/21 10/25/22 Albuterol Nebulized [Ventolin 2.5 mg INHALATION RT-Q8H PRN 10/25/22 10/25/22 Nebulized] Sulfamethox-Tmp 800-160Mg [Bactrim 1 tab PO Q12HR 10/25/22 10/25/22 DS 800-160 mg] hydroCHLOROthiazide [Hydrodiuril] 25 mg PO DAILY 10/25/22 10/25/22 lisinopriL [Zestril] 2.5 mg PO DAILY 10/25/22 10/25/22 Allergies Allergy/AdvReac Type Severity Reaction Status Date / Time No Known Allergies Allergy Verified 10/25/22 10:38 Review of Systems ROS Other: All systems not noted in ROS Statement are negative. <Omar Triplett - Last Filed: 10/25/22 12:35> ROS Other: All systems not noted in ROS Statement are negative. <Rula Kenny A - Last Filed: 10/26/22 13:34> ROS Statement: Those systems with pertinent positive or pertinent negative responses have been documented in the HPI. Past Medical History Past Medical History: COPD, GERD/Reflux, GI Bleed, Hypertension, Myocardial Infarction (VT), Pneumonia, Skin Disorder Additional Past Medical History / Comment(s): ETOH abuse with delirium tremors, lower GI bleed, IBS, chronic iron deficiency anemia, hypomagnesemia, hyperbilirubinemia, anorexia, vertigo, nephrolithiasis-passed stone on his own, chronic low back/cervical pain, DDD, kyphosis, scoliosis, coccyx pressure ulcer pt states is mostly healed. Dry and itchy skin back in high school. 2 heart attacks, one in December (2020) second in February (2020). Last Myocardial Infarction Date:: February 2021 History of Any Multi-Drug Resistant Organisms: None Reported Past Surgical History: Bariatric Surgery, Heart Catheterization With Stent, Hernia Repair, Orthopedic Surgery, Tonsillectomy Additional Past Surgical History / Comment(s): Right inner Forearm-metal plate, gastric bypass, incisional hernia surgery x2, EGDs, colonoscopies. 2 Stents placed in December 2020. Past Anesthesia/Blood Transfusion Reactions: No Reported Reaction Date of Last Stent Placement:: 2020 Past Psychological History: Anxiety, Bipolar, Depression, PTSD Smoking Status: Current every day smoker Past Alcohol Use History: Abuse Past Drug Use History: None Reported - Past Family History Mother Family Medical History: Hypertension Additional Family Medical History / Comment(s): Lupus. Mother is living. Father Family Medical History: Liver Disease Additional Family Medical History / Comment(s): ETOH abuse. of cirrhosis complications. <Omar Triplett - Last Filed: 10/25/22 12:35> General Exam Limitations: no limitations General appearance: alert, in no apparent distress Head exam: Present: atraumatic, normocephalic, normal inspection Eye exam: Present: normal appearance, PERRL, EOMI. Absent: scleral icterus, conjunctival injection, periorbital swelling ENT exam: Present: normal exam, normal oropharynx, mucous membranes moist Neck exam: Present: normal inspection, full ROM. Absent: tenderness, meningismus, lymphadenopathy Respiratory exam: Present: wheezes (Minimal). Absent: respiratory distress, rales, rhonchi, stridor Cardiovascular Exam: Present: regular rate, normal rhythm, normal heart sounds. Absent: systolic murmur, diastolic murmur, rubs, gallop, clicks Extremities exam: Present: other (Bilateral lower extremity legs are wrapped, there is minimal swelling, pulses are palpable) <Omar Triplett - Last Filed: 10/25/22 12:35> Course Vital Signs 10/25/22 10/25/22 10/25/22 09:25 09:29 10:00 Temperature 98.1 F Pulse Rate 83 84 Respiratory 20 20 16 Rate Blood Pressure 111/77 111/77 109/79 O2 Sat by Pulse 99 99 Oximetry 10/25/22 10/25/22 10/25/22 11:00 11:59 12:00 Temperature 98.3 F Pulse Rate 83 87 Respiratory 18 20 20 Rate Blood Pressure 102/76 O2 Sat by Pulse 98 Oximetry 10/25/22 10/25/22 10/25/22 13:00 14:00 15:00 Temperature Pulse Rate 89 86 91 Respiratory 18 16 Rate Blood Pressure 108/80 106/80 112/81 O2 Sat by Pulse Oximetry 10/25/22 10/25/22 10/25/22 16:00 17:00 18:00 Temperature Pulse Rate 88 90 92 Respiratory Rate Blood Pressure 110/83 110/84 109/81 O2 Sat by Pulse 94 L Oximetry Medical Decision Making - Lab Data Result diagrams: 10/25/22 10:01 10/25/22 10:01 - EKG Data -: EKG Interpreted by Dc <Omar Triplett - Last Filed: 10/25/22 12:35> - Lab Data Result diagrams: 10/26/22 06:24 10/25/22 10:01 <Rula Kenny - Last Filed: 10/26/22 13:34> - Medical Decision Making Was pt. sent in by a medical professional or institution (TRACEY Katz, BIOSTATISTICS MANAGER, urgent care, hospital, or detention...) When possible be specific @ -No Did you speak to anyone other than the patient for history (EMS, parent, family, police, friend...)? What history was obtained from this source @ -EMS provided prehospital vitals, treatment Did you review nursing and triage notes (agree or disagree)? Why? @ -I reviewed and agree with nursing and triage notes Were old charts reviewed (outside hosp., previous admission, EMS record, old EKG, old radiological studies, urgent care reports/EKG's, detention records)? Report findings @ -No old charts were reviewed Differential Diagnosis (chest pain, altered mental status, abdominal pain women, abdominal pain men, vaginal bleeding, weakness, fever, dyspnea, syncope, headache, dizziness, GI bleed, back pain, seizure, CVA, palpatations, mental health, musculoskeletal)? @ -Differential Dyspnea: Coronary syndrome, arrhythmia, tamponade, asthma, COPD, pulmonary embolism, pneumonia, pneumothorax, pulmonary effusion, anaphylaxis, diabetic ketoacidosis, flailed chest, pulmonary contusion, diaphragmatic rupture, anemia, neuromuscular, this is not meant to be an all-inclusive list. EKG interpreted by me (3pts min.). @ -Chest x-ray shows possible atelectasis changes X-rays interpreted by me (1pt min.). @ -None done CT interpreted by me (1pt min.). @ -None done U/S interpreted by me (1pt. min.). @ -None done What testing was considered but not performed or refused? (CT, X-rays, U/S, labs)? Why? @ -None What meds were considered but not given or refused? Why? @ -None Did you discuss the management of the patient with other professionals (professionals i.e. , PA, BIOSTATISTICS MANAGER, lab, RT, psych nurse, addiction social worker, dedicated truck driver, teacher, corporation officer, case management manager)? Give summary @ -[Dr. Martines for admission with cardiology consult Was smoking cessation discussed for >3mins.? @ -No Was critical care preformed (if so, how long)? @ -No Were there social determinants of health that impacted care today? How? (Homelessness, low income, unemployed, alcoholism, drug addiction, transportation, low edu. Level, literacy, decrease access to med. care, senior living, rehab)? @ -No Was there de-escalation of care discussed even if they declined (Discuss DNR or withdrawal of care, Hospice)? DNR status @ -No What co-morbidities impacted this encounter? (DM, HTN, Smoking, COPD, CAD, Cance r, CVA, ARF, Chemo, Hep., AIDS, mental health diagnosis, sleep apnea, morbid obesity)? @ -CAD, COPD Was patient admitted / discharged? Hospital course, mention meds given and route, prescriptions, significant lab abnormalities, going to OR and other pertinent info. @ -Admitted patient had acute onset of dyspnea was improved though patient has elevated troponin, BNP is significantly elevated at 13,500 from baseline of 400. Patient will have repeat troponin, echocardiogram, cardiology evaluation patient's magnesium is 1.4 patient was ordered replacement. Undiagnosed new problem with uncertain prognosis? @ -No Drug Therapy requiring intensive monitoring for toxicity (Heparin, Nitro, Insulin, Cardizem)? @ -Yes heparin Were any procedures done? @ -No Diagnosis/symptom? @ -Dyspnea, hypomagnesemia elevated troponin Acute, or Chronic, or Acute on Chronic? @ -Acute Uncomplicated (without systemic symptoms) or Complicated (systemic symptoms)? @ -Complicated Side effects of treatment? @ -No Exacerbation, Progression, or Severe Exacerbation? @ -No Poses a threat to life or bodily function? How? (Chest pain, USA, VT, pneumonia, PE, COPD, DKA, ARF, appy, cholecystitis, CVA, Diverticulitis, Homicidal, Suicidal, threat to staff... and all critical care pts) @ -Yes patient has risk for cardiac arrest (Omar Triplett) - Lab Data Lab Results 10/25/22 10/25/22 10/25/22 Range/Units 10:01 10:01 10:01 WBC 6.1 (3.8-10.6) k/uL RBC 3.85 L (4.30-5.90) m/uL Hgb 9.5 L (13.0-17.5) gm/dL Hct 30.3 L (39.0-53.0) % MCV 78.6 L (80.0-100.0) fL MCH 24.5 L (25.0-35.0) pg MCHC 31.2 (31.0-37.0) g/dL RDW 18.1 H (11.5-15.5) % Plt Count 242 (150-450) k/uL MPV 8.0 Neutrophils % (Manual) 83 % Lymphocytes % (Manual) 10 % Monocytes % (Manual) 6 % Basophils % (Manual) 1 % Neutrophils # (Manual) 5.06 (1.3-7.7) k/uL Lymphocytes # (Manual) 0.61 L (1.0-4.8) k/uL Monocytes # (Manual) 0.37 (0-1.0) k/uL Basophils # (Manual) 0.06 (0-0.2) k/uL Nucleated RBCs 0 (0-0) /100 WBC Manual Slide Review Performed Hypochromasia Marked Poikilocytosis Moderate Anisocytosis Slight Microcytosis Slight Crenated Cell Present PT 13.5 H (9.0-12.0) sec INR 1.3 H (<1.2) APTT 25.9 (22.0-30.0) sec Sodium 133 L (137-145) mmol/L Potassium 3.8 (3.5-5.1) mmol/L Chloride 97 L (98-107) mmol/L Carbon Dioxide 25 (22-30) mmol/L Anion Gap 11 mmol/L BUN 18 (9-20) mg/dL Creatinine 0.94 (0.66-1.25) mg/dL Est GFR (CKD-EPI)AfAm >90 (>60 ml/min/1.73 sqM) Est GFR (CKD-EPI)NonAf >90 (>60 ml/min/1.73 sqM) Glucose 95 (74-99) mg/dL Calcium 8.4 (8.4-10.2) mg/dL Magnesium 1.7 (1.6-2.3) mg/dL Total Bilirubin 1.4 H (0.2-1.3) mg/dL AST 62 H (17-59) U/L ALT 52 H (4-49) U/L Alkaline Phosphatase 125 (38-126) U/L Troponin I (0.000-0.034) ng/mL NT-Pro-B Natriuret Pep pg/mL Total Protein 6.4 (6.3-8.2) g/dL Albumin 3.3 L (3.5-5.0) g/dL 10/25/22 10/25/22 Range/Units 10:01 10:01 WBC (3.8-10.6) k/uL RBC (4.30-5.90) m/uL Hgb (13.0-17.5) gm/dL Hct (39.0-53.0) % MCV (80.0-100.0) fL MCH (25.0-35.0) pg MCHC (31.0-37.0) g/dL RDW (11.5-15.5) % Plt Count (150-450) k/uL MPV Neutrophils % (Manual) % Lymphocytes % (Manual) % Monocytes % (Manual) % Basophils % (Manual) % Neutrophils # (Manual) (1.3-7.7) k/uL Lymphocytes # (Manual) (1.0-4.8) k/uL Monocytes # (Manual) (0-1.0) k/uL Basophils # (Manual) (0-0.2) k/uL Nucleated RBCs (0-0) /100 WBC Manual Slide Review Hypochromasia Poikilocytosis Anisocytosis Microcytosis Crenated Cell PT (9.0-12.0) sec INR (<1.2) APTT (22.0-30.0) sec Sodium (137-145) mmol/L Potassium (3.5-5.1) mmol/L Chloride (98-107) mmol/L Carbon Dioxide (22-30) mmol/L Anion Gap mmol/L BUN (9-20) mg/dL Creatinine (0.66-1.25) mg/dL Est GFR (CKD-EPI)AfAm (>60 ml/min/1.73 sqM) Est GFR (CKD-EPI)NonAf (>60 ml/min/1.73 sqM) Glucose (74-99) mg/dL Calcium (8.4-10.2) mg/dL Magnesium (1.6-2.3) mg/dL Total Bilirubin (0.2-1.3) mg/dL AST (17-59) U/L ALT (4-49) U/L Alkaline Phosphatase (38-126) U/L Troponin I 0.044 H* (0.000-0.034) ng/mL NT-Pro-B Natriuret Pep 36854 pg/mL Total Protein (6.3-8.2) g/dL Albumin (3.5-5.0) g/dL - EKG Data EKG Comments: EKG 29:50 sinus rhythm with rate of 84 CO 157 QRS 75 QT/QTC 371/412 (Omar Triplett) Critical Care Time Critical Care Time: Yes <Rula Kenny - Last Filed: 10/26/22 13:34> Critical Care Time: 35 minutes for NSTEMI and heparin drip (Rula Kenny) Disposition Time of Disposition: 12:21 <Omar Triplett - Last Filed: 10/25/22 12:35> <Rula Kenny - Last Filed: 10/26/22 13:34> Clinical Impression: Dyspnea, Hypomagnesemia, Elevated troponin Disposition: ADMITTED IP TO THIS HOSP Condition: Poor
--- NOTE | 2022-10-25 10:36 | XR ---
EXAMINATION TYPE: XR chest 2V DATE OF EXAM: 10/25/2022 COMPARISON: 12/03/2021 INDICATION: Difficulty breathing TECHNIQUE: Frontal and lateral views of the chest are obtained. FINDINGS: The heart size is normal. The pulmonary vasculature is normal. The lungs are clear. Some left basilar infiltrate may be present. Correlate for atelectasis. Mild el evation of the left diaphragm is present. Old right rib fractures are evident. IMPRESSION: 1. Suggestion of atelectasis at the left lung base
[2022-10-25 10:48] LABS: INR 1.3 (<1.2); Partial Thromboplastin Time 25.9 sec (22.0-30.0); Prothrombin Time 13.5 sec (9.0-12.0)
[2022-10-25 10:53] LABS: ALT 52 U/L (4-49); AST 62 U/L (17-59); African American GFR (CKD) >90 (>60 ml/min/1.73 sqM); Albumin 3.3 g/dL (3.5-5.0); Alkaline Phosphatase 125 U/L (38-126); Anion Gap 11 mmol/L; Blood Urea Nitrogen 18 mg/dL (9-20); Calcium 8.4 mg/dL (8.4-10.2); Carbon Dioxide 25 mmol/L (22-30); Chloride 97 mmol/L (98-107); Glucose 95 mg/dL (74-99); Magnesium 1.7 mg/dL (1.6-2.3); Non-African American GFR(CKD) >90 (>60 ml/min/1.73 sqM); Potassium 3.8 mmol/L (3.5-5.1); Sodium 133 mmol/L (137-145); Total Bilirubin 1.4 mg/dL (0.2-1.3); Total Protein 6.4 g/dL (6.3-8.2)
[2022-10-25 10:56] LABS: Anisocytosis Slight; HCT 30.3 % (39.0-53.0); HGB 9.5 gm/dL (13.0-17.5); Hypochromasia Marked; MCH 24.5 pg (25.0-35.0); MCHC 31.2 g/dL (31.0-37.0); MCV 78.6 fL (80.0-100.0); Microcytosis Slight; Platelet Count 242 k/uL (150-450); Poikilocytosis Moderate; RBC 3.85 m/uL (4.30-5.90); RDW 18.1 % (11.5-15.5); WBC 6.1 k/uL (3.8-10.6)
[2022-10-25] MEDS ORDERED: NITROGLYCERIN SL TABS 0.4 MG TAB SUBLINGUAL PRN (12:32)
[2022-10-25] MEDS ORDERED: ASPIRIN 81 MG PO STA (12:32)
[2022-10-25] MEDS ORDERED: MAGNESIUM SULFATE-D5W PMX 1 GM in DEXTROSE/WATER 1 100ML.BAG IVPB ONE (12:34)
[2022-10-25] MEDS ORDERED: HEPARIN SODIUM 1,000 UN/ML (10ML VL) IV ONE (12:34)
[2022-10-25] MEDS ORDERED: HEPARIN SODIUM 1,000 UN/ML (10ML VL) IV PRN (12:34)
[2022-10-25 13:16] LABS: Basophils # (M) 0.06 k/uL (0-0.2); Lymphocytes # (M) 0.61 k/uL (1.0-4.8); Monocytes # (M) 0.37 k/uL (0-1.0); Neutrophils # (M) 5.06 k/uL (1.3-7.7); Neutrophils % (M) 83 %; Nucleated Red Blood Cells 0 /100 WBC (0-0); Total Cells Counted 100
[2022-10-25 13:17] LABS: Crenated RBC Present
--- NOTE | 2022-10-25 13:46 | P.HPIM ---
History of Present Illness H&P Date: 10/25/22 History of Presenting Illness: Patient is a very pleasant 57-year-old male with a past medical history of CAD with previous ID and stent placement 2, hypertension, hyperlipidemia, COPD with continued nicotine dependence, and alcohol use/abuse. Patient reports that he has been clean from alcohol use 2 months because he was incarcerated. He reports that he just got out of senior care and upon getting home, he got into a hot shower and suddenly began having shortness of breath and chest pain. Patient reports in addition to this he has had worsening lower extremity edema worse on left as he has been unable to care for properly while in senior care. Patient reports chronic wounds on bilateral lower extremities have been improving since he has been applying Bactrim and wrapping with compression bandages. Patient denies having any fevers, chills, diaphoresis, dizziness, lightheadedness, cough, sinus congestion or drainage, palpitations, nausea, vomiting, or experiencing any num bness/tingling/weakness in his extremities. He underwent full evaluation in the emergency department. Labs completed and reviewed. CBC revealing macrocytic microchromic anemia with hemoglobin of 9.5. BMP showing mild hyponatremia with sodium of 133 and hypochloremia with chloride of 97. Liver profile revealing hyperbilirubinemia with bilirubin of 1.4, AST of 62, ALT is 52, and alkaline phosphatase of 125. Troponin elevated at 0.044 and pro-BMP 13,500. EKG showing normal sinus rhythm at 84 bpm with no significant T-wave or ST abnormalities upon personal review and interpretation. Chest x-ray completed and reviewed, radiology report stating suggestion of atelectasis at left lung base an old right rib fractures noted. Patient was started on heparin infusion for elevated troponin. Discussed patient, laboratory findings, and imaging results in great detail with the ED provider. Patient will be admitted under our services with consultation to cardiology. Heart score 4. Review of systems: Pertinent positives and negatives as discussed in HPI, a complete review of systems was performed and all other systems are negative. Physical exam: Vital signs reviewed and stable. General: Nontoxic, no distress and appears stated age. Derm: Skin warm and dry, normal coloration for ethnicity. Head: Atraumatic, normocephalic and symmetric. Eyes: EOMs intact, no lid lag, and anicteric sclera Mouth: no lip lesions, mucus membranes moist Cardiovascular: regular rate and rhythm with normal S1S2, systolic murmur, positive posterior tibial pulses bilaterally, and cap refill < 2 seconds. Lungs: Respirations even, regular, and unlabored on room air. Lungs CTA bilaterally, no rhonchi, no rales, no wheezing, and no accessory muscle usage. Abdominal: soft, nontender to palpation, no guarding, no appreciable organomegaly Ext: ROM intact. No gross muscle atrophy, 3+ pitting bilateral lower extremity edema, no contractures. Venous discoloration and edema to bilateral lower ex tremities. Wounds with scab/crusting on dorsal surface of left foot. Neuro: Speech clear, face symmetrical and CN II-XII grossly intact with no noted focal neuro deficits Psych: Alert and oriented to person, place, time, and situation. Appropriate and pleasant affect. Assessment and Plan of Care: Elevated troponin Chest pain, rule out acute coronary event History of CAD with previous stenting 2 Hypertension Hyperlipidemia COPD -Continue heparin infusion for elevated troponin along with daily cardiac medication regimen consisting of aspirin, atorvastatin, hydrochlorothiazide, lisinopril, and metoprolol. - Labs completed and reviewed. Troponin elevated at 0.044 and pro-BMP 13,500. -EKG showing normal sinus rhythm at 84 bpm with no significant T-wave or ST abnormalities upon personal review and interpretation. -Chest x-ray completed and reviewed, radiology report stating suggestion of atelectasis at left lung base an old right rib fractures noted. -Discussed patient, laboratory findings, and imaging results in great detail with the ED provider. -Patient will be admitted under our services to observation unit with telemetry with consultation to cardiology. -Troponins to be trended -CTA chest to be completed secondary to Well's score of 4.5 showing a moderate risk group with patient's reports of sudden onset shortness of breath and chest pain. Patient was not tachycardic but does take metoprolol 25 mg twice daily and reports being sedentary over the past 2 months while incarcerated. -Echocardiogram to be completed. History of alcohol abuse Transaminitis. Secondary to above. -Labs completed and reviewed. CBC revealing macrocytic microchromic anemia with hemoglobin of 9.5. BMP showing mild hyponatremia with sodium of 133 and hypochloremia with chloride of 97. Liver profile revealing hyperbilirubinemia with bilirubin of 1.4, AST of 62, ALT is 52, and alkaline phosphatase of 125. -Patient reports 2 months since last time a using alcohol. We will continue to monitor with repeat a.m. labs, no further interventions at this time. Wounds with scabbing/crusting on dorsal surface of left foot Peripheral venous insufficiency with chronic wounds -Wound care consult placed The patient is admitted with an anticipated less than than 2 midnight stay for evaluation of chest pain and shortness of breath CODE STATUS: Full code DVT prophylaxis: Heparin Discussed with: Patient, RN, and ED provider Anticipated discharge date: 24-[address]: Home Patient was seen independently by Nurse Practitioner. This document was prepared using [employer] dictation software. Please allow for errors in merchandise executive while rare they do occur. I reviewed the documentation as provided by the ANGELITO above, who is the original author of this note. I agree with the documented assessment and plan, with the following changes: none Past Medical History Past Medical History: COPD, GERD/Reflux, GI Bleed, Hypertension, Myocardial Infarction (ID), Pneumonia, Skin Disorder Additional Past Medical History / Comment(s): ETOH abuse with delirium tremors, lower GI bleed, IBS, chronic iron deficiency anemia, hypomagnesemia, hyperbilirubinemia, anorexia, vertigo, nephrolithiasis-passed stone on his own, chronic low back/cervical pain, DDD, kyphosis, scoliosis, coccyx pressure ulcer pt states is mostly healed. Dry and itchy skin back in high school. 2 heart attacks, one in December (2020) second in February (2020). Last Myocardial Infarction Date:: February 2021 History of Any Multi-Drug Resistant Organisms: None Reported Past Surgical History: Bariatric Surgery, Heart Catheterization With Stent, Hernia Repair, Orthopedic Surgery, Tonsillectomy Additional Past Surgical History / Comment(s): Right inner Forearm-metal plate, gastric bypass, incisional hernia surgery x2, EGDs, colonoscopies. 2 Stents placed in December 2020. Past Anesthesia/Blood Transfusion Reactions: No Reported Reaction Date of Last Stent Placement:: 2020 Past Psychological History: Anxiety, Bipolar, Depression, PTSD Smoking Status: Current every day smoker Past Alcohol Use History: Abuse Past Drug Use History: None Reported - Past Family History Mother Family Medical History: Hypertension Additional Family Medical History / Comment(s): Lupus. Mother is living. Father Family Medical History: Liver Disease Additional Family Medical History / Comment(s): ETOH abuse. of cirrhosis complications. Medications and Allergies Home Medications Medication Instructions Recorded Confirmed Type Aspirin EC [Ecotrin Low Dose] 81 mg PO HS 03/30/21 10/25/22 History Atorvastatin [Lipitor] 80 mg PO HS 03/30/21 10/25/22 History DULoxetine HCL [Cymbalta] 60 mg PO HS 04/12/21 10/25/22 History Metoprolol Tartrate [Lopressor] 25 mg PO BID 04/12/21 10/25/22 History Albuterol Nebulized [Ventolin 2.5 mg INHALATION RT-Q8H PRN 10/25/22 10/25/22 History Nebulized] Sulfamethox-Tmp 800-160Mg [Bactrim 1 tab PO Q12HR 10/25/22 10/25/22 History DS 800-160 mg] hydroCHLOROthiazide [Hydrodiuril] 25 mg PO DAILY 10/25/22 10/25/22 History lisinopriL [Zestril] 2.5 mg PO DAILY 10/25/22 10/25/22 History Allergies Allergy/AdvReac Type Severity Reaction Status Date / Time No Known Allergies Allergy Verified 10/25/22 10:38 Physical Exam Osteopathic Statement: *. No significant issues noted on an osteopathic structural exam other than those noted in the History and Physical/Consult. Vitals: Vital Signs Temp Pulse Resp BP Pulse Ox 10/25/22 12:00 98.3 F 87 20 108/80 98 10/25/22 11:59 20 10/25/22 09:25 98.1 F 83 20 111/77 99 Intake and Output 10/24/22 10/25/22 10/25/22 22:59 06:59 14:59 Other: Weight 103.419 kg Results CBC & Chem 7: 10/25/22 10:01 10/25/22 10:01 Labs: Abnormal Lab Results - Last 24 Hours (Table) 10/25/22 10/25/22 10/25/22 Range/Units 10:01 10:01 10:01 RBC 3.85 L (4.30-5.90) m/uL Hgb 9.5 L (13.0-17.5) gm/dL Hct 30.3 L (39.0-53.0) % MCV 78.6 L (80.0-100.0) fL MCH 24.5 L (25.0-35.0) pg RDW 18.1 H (11.5-15.5) % PT 13.5 H (9.0-12.0) sec INR 1.3 H (<1.2) Sodium 133 L (137-145) mmol/L Chloride 97 L (98-107) mmol/L Total Bilirubin 1.4 H (0.2-1.3) mg/dL AST 62 H (17-59) U/L ALT 52 H (4-49) U/L Troponin I (0.000-0.034) ng/mL Albumin 3.3 L (3.5-5.0) g/dL 10/25/22 Range/Units 10:01 RBC (4.30-5.90) m/uL Hgb (13.0-17.5) gm/dL Hct (39.0-53.0) % MCV (80.0-100.0) fL MCH (25.0-35.0) pg RDW (11.5-15.5) % PT (9.0-12.0) sec INR (<1.2) Sodium (137-145) mmol/L Chloride (98-107) mmol/L Total Bilirubin (0.2-1.3) mg/dL AST (17-59) U/L ALT (4-49) U/L Troponin I 0.044 H* (0.000-0.034) ng/mL Albumin (3.5-5.0) g/dL
[2022-10-25] MEDS: HEPARIN SOD,PORK IN 0.45% NACL 25,000 UNIT in 0.45% NACL 1 250ML.BAG IV SCH (14:16)
--- NOTE | 2022-10-25 16:33 | CT ---
CT CHEST FOR PULMONARY EMBOLISM. EXAMINATION TYPE: CT chest angio for PE DATE OF EXAM: 10/25/2022 INDICATION: bilateral leg swelling CT DLP: 632.9 mGycm, Automated exposure control for dose reduction was used. CONTRAST: Patient injected with 100 mL of Isovue 300. COMPARISON: None TECHNIQUE: CT of the chest is performed on a spiral scan at 2 mm thick sections. Study is performed with intravenous contrast timed for evaluation for pulmonary embolism. This will limit additional po rtions of the evaluation. 3-D MIP images reconstructed by the technologist are reviewed on the compu ter in the coronal and sagittal planes. FINDINGS: No persistent filling defects are evident to suggest an acute pulmonary embolism. No mediastinal or hilar adenopathy enlarged by CT criteria is evident. The ascending aorta diameter at the level of the main pulmonary artery is 4.0 cm. The main pulmonary artery diameter at the bifur cation is 4.0 cm. Small right pleural effusion is present. There is posterior herniation of the left diaphragm with jerrica vation of the spleen and bowel posteriorly. Limited CT section through the upper abdomen are unremarkable. IMPRESSIONS: 1. No acute pulmonary embolism. 2. [id number] right pleural effusion. 3. Limited inspiration. Elevation of the left diaphragm with possible posterior herniation.
[2022-10-25] MEDS: ATORVASTATIN 80 MG TAB PO SCH (21:06)
[2022-10-25] MEDS: DULoxetine HCL 60 MG CAPSULE.DR PO SCH (21:06)
[2022-10-25] MEDS: METOPROLOL TARTRATE 25 MG TAB PO SCH (21:06)
[2022-10-25] MEDS ORDERED: MORPHINE SULFATE 4 MG/ML SYRINGE IVP PRN (22:31)
[2022-10-25] MEDS ORDERED: ACETAMINOPHEN TAB 325 MG TAB PO PRN (22:41)
[2022-10-26] MEDS: ALBUTEROL NEBULIZED 2.5 MG/3 ML INHALATION PRN ×2 (04:44→11:46)
[2022-10-26] MEDS ORDERED: ASPIRIN 325 MG TAB PO SCH (09:00)
[2022-10-26 09:04] LABS: INR 1.3 (<1.2)
[2022-10-26] MEDS: ASPIRIN 81 MG PO SCH (09:08)
[2022-10-26] MEDS: METOPROLOL TARTRATE 25 MG TAB PO SCH ×2 (09:09→19:40)
[2022-10-26] MEDS: hydroCHLOROthiazide 25 MG TAB PO SCH (09:09)
[2022-10-26] MEDS: FUROSEMIDE 10 MG/ML 4 ML VIAL IV SCH ×2 (09:09→17:01)
[2022-10-26 09:37] LABS: Anisocytosis Slight; Basophils % (A) 1 %; Eosinophils # (A) 0.1 k/uL (0-0.7); Eosinophils % (A) 1 %; HCT 32.1 % (39.0-53.0); HGB 9.9 gm/dL (13.0-17.5); Hypochromasia Marked; Lymphocytes # (A) 1.8 k/uL (1.0-4.8); Lymphocytes % (A) 23 %; MCH 25.1 pg (25.0-35.0); MCHC 30.8 g/dL (31.0-37.0); MCV 81.5 fL (80.0-100.0); Mean Platelet Volume 9.8; Microcytosis Slight; Monocytes # (A) 0.6 k/uL (0-1.0); Monocytes % (A) 7 %; Neutrophils % (A) 64 %; Platelet Count 281 k/uL (150-450); Poikilocytosis Slight; RBC 3.94 m/uL (4.30-5.90); WBC 7.7 k/uL (3.8-10.6)
--- NOTE | 2022-10-26 09:45 | CA ---
Transthoracic Echo Report Name: Jonathan Parsons Age: 57 Gender: M : 1965 Exam Date: 10/25/2022 13:18 Exam Location: [facility] Ht (in): 68 Wt (lb): 228 Ordering Physician: Omar Triplett Attending/Referring Phys: [id number], Ioana Desizing Machine Back Tender Lisa Arnold RDCS Procedure CPT: Indications: dyspnea, cardiomegaly Cardiac Hx: Technical Quality: Fair Contrast 1: Total Dose (mL): Contrast 2: Total Dose (mL): MEASUREMENTS (Male / Female) Normal Values 2D ECHO LV Diastolic Diameter PLAX 5.9 cm 4.2 - 5.9 / 3.9 - 5.3 cm LV Systolic Diameter PLAX 5.3 cm IVS Diastolic Thickness 1.6 cm 0.6 - 1.0 / 0.6 - 0.9 cm LVPW Diastolic Thickness 1.8 cm 0.6 - 1.0 / 0.6 - 0.9 cm LV Relative Wall Thickness 0.6 LA Volume 112.4 cm??? 18 - 58 / 22 - 52 cm??? M-MODE Aortic Root Diameter MM 3.7 cm AV Cusp Separation MM 2.0 cm DOPPLER AV Peak Velocity 121.5 cm/s AV Peak Gradient 5.9 mmHg LVOT Peak Velocity 77.4 cm/s LVOT Peak Gradient 2.4 mmHg MV Peak Velocity 130.1 cm/s MV Peak Gradient 6.8 mmHg MV Mean Velocity 86.1 cm/s MV Mean Gradient 3.2 mmHg MV Velocity Time Integral 26.2 cm MV Area PHT 4.2 cm??? MR Peak Velocity 482.7 cm/s MR Peak Gradient 93.2 mmHg Mitral E Point Velocity 115.7 cm/s Mitral A Point Velocity 45.3 cm/s Mitral E to A Ratio 2.6 MV Deceleration Time 138.8 ms TR Peak Velocity 355.6 cm/s TR Peak Gradient 50.6 mmHg Right Atrial Pressure 8.0 mmHg Pulmonary Artery Systolic Pressu 58.6 mmHg Right Ventricular Systolic Press 58.6 mmHg FINDINGS Left Ventricle Mildly enlarged left ventricle with hypokinesia off mid to distal anteroseptal apical and anterolateral wall. Base of the ventricle contracts well. Ejection fraction is about 30-35% Right Ventricle Moderate right ventricular dilatation. Reduced right ventricular global systolic function. Severe pulmonary hypertension. Right Atrium Normal right atrial size. Left Atrium Severely increased left atrial volume. Mitral Valve Moderate mitral regurgitation. Aortic Valve Trileaflet aortic valve. Aortic valve sclerosis. Tricuspid Valve Yiri-ks-[id number] tricuspid regurgitation. Pulmonic Valve Pulmonic valve not well visualized. Pericardium Small pericardial effusion. Aorta Moderate aortic dilatation at the level of the sinuses of valsalva (root). Normal size proximal ascending aorta. CONCLUSIONS Mildly enlarged left ventricle with wall motion up amenities as described above and ejection fraction of 30-35%. Enlarged right ventricle. Moderate pulmonary hypertension. Moderate mitral and mild to moderate tricuspid regurgitation. No significant pericardial effusion Previewed by: Dr. Mauro Parikh MD (Electronically Signed) Final Date: 26 October 2022 09:44
--- NOTE | 2022-10-26 11:21 | P.CONS ---
History of Present Illness - Reason for Consult Consult date: 10/26/22 wound care - History of Present Illness This is a 57-year-old gentleman being seen on 3 cells for a nonhealing ulceration to the left dorsal foot. Patient's past medical history significant for COPD, GERD, GI bleed, hypertension, chronic back pain. Patient states that the ulceration has been there for a few weeks. At this time the ulceration is epithelialized with no open areas. Patient does not have any drainage. Patient states that he has been working on it at home. Review Of Systems: Constitutional: No fever, no chills, no night sweats. No weight change. No weakness, fatigue or lethargy. No daytime sleepiness. Integumentary:reports wounds, no lesions. No rash or pruritus. No unusual bruising. No change in hair or nails. Physical exam: General Appearance: Alert, cooperative, no distress, appears stated age. Skin: See HPI all other Skin color, texture, tugor normal, no rashes or lesions. Neurologic: Alert oriented x3 Assessment: 1. Nonhealing ulceration left dorsal foot Limited to skin breakdown - resolved 2. Chronic venous hypertension with inflammation and ulceration of left lower extremity 3. Venous insufficiency Plan: 1.Apply zinc to dorsal foot, wrap with dayna wrap. Thank you for the consultation any questions please contact the wound care center DNP note has been reviewed and discussed with Dr. Oneill and the impression and plan of care has been directed as dictated. Past Medical History Past Medical History: COPD, GERD/Reflux, GI Bleed, Hypertension, Myocardial Infarction ([place]), Pneumonia, Skin Disorder Additional Past Medical History / Comment(s): ETOH abuse with delirium tremors, lower GI bleed, IBS, chronic iron deficiency anemia, hypomagnesemia, hyperbilirubinemia, anorexia, vertigo, nephrolithiasis-passed stone on his own, chronic low back/cervical pain, DDD, kyphosis, scoliosis, coccyx pressure ulcer pt states is mostly healed. Dry and itchy skin back in high school. 2 heart attacks, one in December (2020) second in February (2020). Last Myocardial Infarction Date:: February 2021 History of Any Multi-Drug Resistant Organisms: None Reported Past Surgical History: Bariatric Surgery, Heart Catheterization With Stent, He rnia Repair, Orthopedic Surgery, Tonsillectomy Additional Past Surgical History / Comment(s): Right inner Forearm-metal plate, gastric bypass, incisional hernia surgery x2, EGDs, colonoscopies. 2 Stents placed in December 2020. Past Anesthesia/Blood Transfusion Reactions: No Reported Reaction Date of Last Stent Placement:: 2020 Past Psychological History: Anxiety, Bipolar, Depression, PTSD Smoking Status: Current every day smoker Past Alcohol Use History: Abuse Past Drug Use History: None Reported - Past Family History Mother History Unknown: Yes Family Medical History: Hypertension Additional Family Medical History / Comment(s): Lupus. Mother is living. Father History Unknown: Yes Family Medical History: Liver Disease Additional Family Medical History / Comment(s): ETOH abuse. of cirrhosis complications. Medications and Allergies Home Medications Medication Instructions Recorded Confirmed Type Aspirin EC [Ecotrin Low Dose] 81 mg PO HS 03/30/21 10/25/22 History Atorvastatin [Lipitor] 80 mg PO HS 03/30/21 10/25/22 History DULoxetine HCL [Cymbalta] 60 mg PO HS 04/12/21 10/25/22 History Metoprolol Tartrate [Lopressor] 25 mg PO BID 04/12/21 10/25/22 History Albuterol Nebulized [Ventolin 2.5 mg INHALATION RT-Q8H PRN 10/25/22 10/25/22 History Nebulized] Sulfamethox-Tmp 800-160Mg [Bactrim 1 tab PO Q12HR 10/25/22 10/25/22 History DS 800-160 mg] hydroCHLOROthiazide [Hydrodiuril] 25 mg PO DAILY 10/25/22 10/25/22 History lisinopriL [Zestril] 2.5 mg PO DAILY 10/25/22 10/25/22 History Allergies Allergy/AdvReac Type Severity Reaction Status Date / Time No Known Allergies Allergy Verified 10/25/22 10:38 Physical Exam Vitals: Vital Signs Temp Pulse Pulse Resp BP BP Pulse Ox 10/26/22 08:00 98 F 84 20 122/63 96 10/26/22 04:59 84 10/26/22 04:45 84 10/26/22 03:35 97.4 F L 81 16 101/62 96 10/26/22 01:20 16 10/25/22 23:20 98.0 F 61 16 91/57 95 10/25/22 21:12 98.6 F 85 16 99/62 95 10/25/22 19:29 16 10/25/22 19:28 98.6 F 85 16 99/62 95 10/25/22 18:00 92 109/81 10/25/22 17:00 90 110/84 94 L 10/25/22 16:00 88 110/83 10/25/22 15:00 91 112/81 10/25/22 14:00 86 16 106/80 10/25/22 13:00 89 18 108/80 10/25/22 12:00 98.3 F 87 20 102/76 98 10/25/22 11:59 20 Intake and Output 10/25/22 10/26/22 10/26/22 22:59 06:59 14:59 Intake Total 20 20 118 Output Total 400 275 250 Balance -380 -255 -132 Intake: IV 20 20 Invasive Line 2 10 10 Invasive Line 3 10 10 Oral 118 Output: Urine 400 275 250 Other: Voiding Method Toilet Toilet # Voids 1 Weight 103.419 kg 94 kg Results CBC & Chem 7: 10/26/22 06:24 10/25/22 10:01 Labs: Abnormal Lab Results - Last 24 Hours (Table) 10/25/22 10/25/22 10/25/22 Range/Units 10:01 10:01 13:17 RBC (4.30-5.90) m/uL Hgb (13.0-17.5) gm/dL Hct (39.0-53.0) % MCHC (31.0-37.0) g/dL RDW (11.5-15.5) % Lymphocytes # (Manual) 0.61 L (1.0-4.8) k/uL PT (9.0-12.0) sec INR (<1.2) APTT (22.0-30.0) sec Troponin I 0.044 H* 0.043 H* (0.000-0.034) ng/mL 10/25/22 10/25/22 10/26/22 Range/Units 15:16 20:40 06:24 RBC 3.94 L (4.30-5.90) m/uL Hgb 9.9 L (13.0-17.5) gm/dL Hct 32.1 L (39.0-53.0) % MCHC 30.8 L (31.0-37.0) g/dL RDW 18.0 H (11.5-15.5) % Lymphocytes # (Manual) (1.0-4.8) k/uL PT (9.0-12.0) sec INR (<1.2) APTT 50.3 H (22.0-30.0) sec Troponin I 0.049 H* (0.000-0.034) ng/mL 10/26/22 10/26/22 Range/Units 06:24 06:24 RBC (4.30-5.90) m/uL Hgb (13.0-17.5) gm/dL Hct (39.0-53.0) % MCHC (31.0-37.0) g/dL RDW (11.5-15.5) % Lymphocytes # (Manual) (1.0-4.8) k/uL PT 13.0 H (9.0-12.0) sec INR 1.3 H (<1.2) APTT 49.5 H (22.0-30.0) sec Troponin I (0.000-0.034) ng/mL Assessment and Plan (1) Non-pressure chronic ulcer of other part of left foot limited to breakdown of skin Current Visit: Yes Status: Acute Code(s): L97.521 - NON-PRS CHRONIC ULCER OTH PRT L FOOT LIMITED TO BRKDWN SKIN SNOMED Code(s): 73367991659269888 (2) Chronic venous hypertension (idiopathic) with inflammation of left lower extremity Current Visit: Yes Status: Acute Code(s): I87.322 - CHRONIC VENOUS HYPERTENSION W INFLAMMATION OF L LOW EXTREM SNOMED Code(s): 636435338 (3) Venous (peripheral) insufficiency Current Visit: Yes Status: Acute Code(s): I87.2 - VENOUS INSUFFICIENCY (CHRONIC) (PERIPHERAL) SNOMED Code(s): 17960914
[2022-10-26 11:23] LABS: LDL Cholesterol,Calculated 44.2 mg/dL (0.0-131.0); VLDL Calculation 10.86 mg/dL (5.00-40.00)
[2022-10-26 11:35] VITALS: BMI 31.5
[2022-10-26 11:42] LABS: Glucose,Whole Blood 118 mg/dL (70-110)
[2022-10-26 13:13] LABS: Crenated RBC Present
[2022-10-26] MEDS: ZINC OXIDE 20% OINT 28.4 GM TUBE TOPICAL SCH (13:21)
[2022-10-26] MEDS: HEPARIN SOD,PORK IN 0.45% NACL 25,000 UNIT in 0.45% NACL 1 250ML.BAG IV SCH (15:00)
--- NOTE | 2022-10-26 16:23 | P.PN ---
Subjective Progress Note Date: 10/26/22 Hospital course: Patient is a very pleasant 57-year-old male with a past medical history of CAD with previous [place] and stent placement 2, hypertension, hyperlipidemia, COPD with continued nicotine dependence, and alcohol use/abuse. Patient reports that he has been clean from alcohol use 2 months because he was incarcerated. He reports that he just got out of half-way and upon getting home, he got into a hot shower and suddenly began having shortness of breath and chest pain. Patient reports in addition to this he has had worsening lower extremity edema worse on left as he has been unable to care for properly while in half-way. Patient reports chronic wounds on bilateral lower extremities have been improving since he has been applying Bactrim and wrapping with compression bandages. Patient denies having any fevers, chills, diaphoresis, dizziness, lightheadedness, cough, sinus congestion or drainage, palpitations, nausea, vomiting, or experiencing any n umbness/tingling/weakness in his extremities. He underwent full evaluation in the emergency department. Labs completed and reviewed. CBC revealing macrocytic microchromic anemia with hemoglobin of 9.5. BMP showing mild hyponatremia with sodium of 133 and hypochloremia with chloride of 97. Liver profile revealing hyperbilirubinemia with bilirubin of 1.4, AST of 62, ALT is 52, and alkaline phosphatase of 125. Troponin elevated at 0.044 and pro-BMP 13,500. EKG showing normal sinus rhythm at 84 bpm with no significant T-wave or ST abnormalities upon personal review and interpretation. Chest x-ray completed and reviewed, radiology report stating suggestion of atelectasis at left lung base an old right rib fractures noted. Patient was started on heparin infusion for elevated troponin. Discussed patient, laboratory findings, and imaging results in great detail with the ED provider. Patient was admitted under our services with consultation to cardiology. Heart score 4. CTA chest was completed ruling out pulmonary emboli and revealing small to moderate right pleural effusion with limited evaluation of the diaphragm with possible posterior herniation. Echocardiogram was completed revealing significantly impaired EF of 30-35% with moderate pulmonary hypertension and moderate mitral and tricuspid regurgitation. Physical exam: Vital signs reviewed and stable. General: Nontoxic, no distress and appears stated age. Derm: Skin warm and dry, normal coloration for ethnicity. Head: Atraumatic, normocephalic and symmetric. Eyes: EOMs intact, no lid lag, and anicteric sclera Mouth: no lip lesions, mucus membranes moist Cardiovascular: regular rate and rhythm with normal S1S2, systolic murmur, positive posterior tibial pulses bilaterally, and cap refill < 2 seconds. Lungs: Respirations even, regular, and unlabored on room air. Lungs CTA bilaterally, no rhonchi, no rales, no wheezing, and no accessory muscle usage. Abdominal: soft, nontender to palpation, no guarding, no appreciable organomegaly Ext: ROM intact. No gross muscle atrophy, 3+ pitting bilateral lower extremity edema, no contractures. Venous discoloration and edema to bilateral lower extremities. Wounds with scab/crusting on dorsal surface of left foot. Neuro: Speech clear, face symmetrical and CN II-XII grossly intact with no noted focal neuro deficits Psych: Alert and oriented to person, place, time, and situation. Appropriate and pleasant affect. Assessment and Plan of Care: Elevated troponins Acute exacerbation of systolic heart failure with EF of 30-35% History of CAD with previous stenting 2 Hypertension Hyperlipidemia COPD -Continue heparin infusion for elevated troponins along with daily cardiac medication regimen consisting of aspirin, atorvastatin, hydrochlorothiazide, lisinopril, and metoprolol. -Cardiology evaluated and started patient on Lasix 40 mg IVP every 8 hours. -Order placed for strict I's and O's, daily weights, and for repeat BMP and magnesium level tomorrow morning to closely monitor renal function and electrolytes with IV diuresis. -Echocardiogram was completed and report reviewed revealing significantly impaired EF of 30-35% with moderate pulmonary hypertension and moderate mitral and tricuspid regurgitation. -Troponins trended and reviewed. Troponin 0.044, 0.043, and 0.049. pro-BMP 13,500. -EKG showing normal sinus rhythm at 84 bpm with no significant T-wave or ST abnormalities upon personal review and interpretation. -Chest x-ray completed and reviewed, radiology report stating suggestion of atelectasis at left lung base an old right rib fractures noted. -CTA chest was completed ruling out pulmonary emboli and revealing small to moderate right pleural effusion with limited evaluation of the diaphragm with possible posterior herniation History of alcohol abuse Transaminitis. Secondary to above. -liver enzymes were elevated with total bili of 1.4, AST of 62, and ALT of 52. Order placed for repeat CMP with a.m. labs to evaluate for improvement/resolution of elevated liver enzymes. -Patient reports 2 months since last time a using alcohol. We will continue to monitor with repeat a.m. labs, no further interventions at this time. Wounds with scabbing/crusting on dorsal surface of left foot Peripheral venous insufficiency with chronic wound -Wound care consult placed The patient is admitted with an anticipated less than than 2 midnight stay for evaluation of chest pain and shortness of breath CODE STATUS: Full code DVT prophylaxis: Heparin Discussed with: Patient and RN Anticipated discharge date: clinical course to determine Anticipated discharge place: Home Patient was seen independently by Nurse Practitioner. This document was prepared using [employer] dictation software. Please allow for errors in media production operator while rare they do occur. I reviewed the documentation as provided by the ANGELITO above, who is the original author of this note. I agree with the documented assessment and plan, with the following changes: none Objective - Vital Signs Vital signs: Vital Signs Temp 97.4 F L 10/26/22 03:35 Pulse 84 10/26/22 04:59 Resp 16 10/26/22 03:35 BP 101/62 10/26/22 03:35 Pulse Ox 96 10/26/22 03:35 FiO2 Intake & Output 10/25/22 10/26/22 10/26/22 18:59 06:59 18:59 Intake Total 40 Output Total 675 Balance -635 Weight 103.419 kg 94 kg Intake: IV 40 Invasive Line 2 20 Invasive Line 3 20 Output: Urine 675 Other: Voiding Method Toilet # Voids 1 - Labs CBC & Chem 7: 10/26/22 06:24 10/27/22 06:59 Labs: Abnormal Lab Results - Last 24 Hours (Table) 10/25/22 10/25/22 10/25/22 Range/Units 10:01 10:01 10:01 RBC 3.85 L (4.30-5.90) m/uL Hgb 9.5 L (13.0-17.5) gm/dL Hct 30.3 L (39.0-53.0) % MCV 78.6 L (80.0-100.0) fL MCH 24.5 L (25.0-35.0) pg RDW 18.1 H (11.5-15.5) % Lymphocytes # (Manual) 0.61 L (1.0-4.8) k/uL PT 13.5 H (9.0-12.0) sec INR 1.3 H (<1.2) APTT (22.0-30.0) sec Sodium 133 L (137-145) mmol/L Chloride 97 L (98-107) mmol/L Total Bilirubin 1.4 H (0.2-1.3) mg/dL AST 62 H (17-59) U/L ALT 52 H (4-49) U/L Troponin I (0.000-0.034) ng/mL Albumin 3.3 L (3.5-5.0) g/dL 10/25/22 10/25/22 10/25/22 Range/Units 10:01 13:17 15:16 RBC (4.30-5.90) m/uL Hgb (13.0-17.5) gm/dL Hct (39.0-53.0) % MCV (80.0-100.0) fL MCH (25.0-35.0) pg RDW (11.5-15.5) % Lymphocytes # (Manual) (1.0-4.8) k/uL PT (9.0-12.0) sec INR (<1.2) APTT (22.0-30.0) sec Sodium (137-145) mmol/L Chloride (98-107) mmol/L Total Bilirubin (0.2-1.3) mg/dL AST (17-59) U/L ALT (4-49) U/L Troponin I 0.044 H* 0.043 H* 0.049 H* (0.000-0.034) ng/mL Albumin (3.5-5.0) g/dL 10/25/22 Range/Units 20:40 RBC (4.30-5.90) m/uL Hgb (13.0-17.5) gm/dL Hct (39.0-53.0) % MCV (80.0-100.0) fL MCH (25.0-35.0) pg RDW (11.5-15.5) % Lymphocytes # (Manual) (1.0-4.8) k/uL PT (9.0-12.0) sec INR (<1.2) APTT 50.3 H (22.0-30.0) sec Sodium (137-145) mmol/L Chloride (98-107) mmol/L Total Bilirubin (0.2-1.3) mg/dL AST (17-59) U/L ALT (4-49) U/L Troponin I (0.000-0.034) ng/mL Albumin (3.5-5.0) g/dL
--- NOTE | 2022-10-26 17:19 | CONS ---
CONSULTATION CHIEF COMPLAINT: Shortness of breath. HISTORY OF PRESENT ILLNESS: Jonathan is 57-year-old gentleman with history of coronary artery disease, status post prior angioplasty of the mid LAD, chronic total occlusion of the distal LAD, chronic occlusion of the right coronary artery, ischemic cardiomyopathy with an ejection fraction of 40% to 45%, who has been in assisted since August. Apparently, he was getting ready to go somewhere and then suddenly became more and more short of breath and then passed out. He was brought to the emergency room, where he had mild troponin elevation and is admitted to hospital for the same. At the time of my evaluation this morning, he is free of chest pain, seems to be in overt heart failure with bilateral leg edema, does not seem to be in respiratory distress. EKG on admission revealed sinus rhythm with evidence of prior anteroseptal myocardial infarction with PVCs. He had a CT scan of the chest that was negative for pulmonary embolism. He has pleural effusion noted. His labs show that the troponins are elevated at 0.04, 0.04, and 0.04 with an elevated BNP at 13,500. He is anemic with a hemoglobin of 9.5. Platelet count is normal. The patient's clinical presentation is consistent with acute exacerbation of chronic congestive heart failure and wii-OM-xputcdl elevation NH. The plan at this stage is to treat him with optimal medical therapy including continued IV heparin, intravenous diuretics, obtain a 2D echo, and then decide on further course of action based on how he does. We may consider a stress test, and if he has ischemia, we may proceed with cardiac catheterization. PAST MEDICAL HISTORY: Significant for multivessel coronary artery disease, hypertension, and dyslipidemia. MEDICATIONS AT HOME: Included: 1. Ventolin. 2. Cymbalta. 3. Zestril. 4. HydroDIURIL. 5. Lopressor. 6. Lipitor. 7. Aspirin. ALLERGIES: There are no known drug allergies. FAMILY HISTORY: Negative for premature coronary artery disease. SOCIAL HISTORY: Significant for smoking. There is no history of EtOH abuse or drug abuse. REVIEW OF SYSTEMS: 14 out of 14 review of systems has been performed. Pertinents are as documented. PHYSICAL EXAMINATION: GENERAL: The patient is comfortable at rest. VITAL SIGNS: O2 saturation is 96% on room air, afebrile, heart rate is 84 beats per minute, blood pressure is 101/62, respiratory rate is 16. NECK: There is no jugular venous distention. Carotid upstroke is normal. There is no bruit. CHEST: Reveals diminished air entry at the right base. I do not hear any crackles or rhonchi. HEART: Reveals first and second heart sounds and systolic murmur at the apex. ABDOMEN: Soft. EXTREMITIES: Exam of extremities reveals moderate bilateral pitting edema. LABORATORY DATA: Show a hemoglobin of 9.5, platelet count is 240. Potassium is 3.8, creatinine is 0.9. Troponins are elevated. BNP is elevated. ASSESSMENT: 1. Acute exacerbation of chronic congestive heart failure. 2. Wna-FC-bbupawh elevation myocardial infarction in a patient with known multivessel coronary artery disease. PLAN: We will treat the patient with aspirin, Lipitor, heparin, intravenous Lasix, Zestril, and Lopressor. I will obtain a 2D echo and decide on further course of action based on how his symptoms evolve. MMCYNDI / DEMARION: [id number] /
[2022-10-26] MEDS: DULoxetine HCL 60 MG CAPSULE.DR PO SCH (19:40)
[2022-10-26] MEDS: ATORVASTATIN 80 MG TAB PO SCH (19:40)
[2022-10-27] MEDS: FUROSEMIDE 10 MG/ML 4 ML VIAL IV SCH ×2 (00:04→13:00)
[2022-10-27 08:00] LABS: Calcium 8.7 mg/dL (8.4-10.2); Magnesium 1.6 mg/dL (1.6-2.3); Total Bilirubin 1.3 mg/dL (0.2-1.3); Total Protein 5.8 g/dL (6.3-8.2)
[2022-10-27 08:19] LABS: Potassium 2.7 mmol/L (3.5-5.1)
[2022-10-27] MEDS: hydroCHLOROthiazide 25 MG TAB PO SCH (09:57)
[2022-10-27] MEDS: ASPIRIN 81 MG PO SCH (09:57)
[2022-10-27] MEDS: METOPROLOL TARTRATE 25 MG TAB PO SCH ×2 (09:57→19:55)
[2022-10-27] MEDS: POTASSIUM CHLORIDE ER 20 MEQ TAB.ER PO SCH ×2 (09:57→12:05)
[2022-10-27] MEDS ORDERED: FUROSEMIDE 10 MG/ML 4 ML VIAL IV SCH (10:15)
[2022-10-27] MEDS: MAGNESIUM SULFATE-D5W PMX 1 GM in DEXTROSE/WATER 1 100ML.BAG IVPB SCH ×2 (12:05→14:19)
--- NOTE | 2022-10-27 13:24 | P.PN ---
Subjective Progress Note Date: 10/27/22 HISTORY OF PRESENT ILLNESS: This is a 57-year-old male who is a patient of Dr. Chaudhari. Patient is admitted to the hospital secondary to congestive heart failure. Patient examined this morning at the bedside. Patient denies chest pain or pressure. He denies shortness of breath at rest. He does report continued shortness of breath with exertion. He remains on IV Lasix. His urine output over the last 24 hours is approximately 5 L. Potassium is low this morning at 2.7. Echocardiogram revealed ejection fraction 30-35% which is slightly lower than his previous echocardiogram which revealed EF of 40-45%. PHYSICAL EXAM: VITAL SIGNS: Reviewed. GENERAL: Well-developed in no acute distress. NECK: Supple. No JVD or thyromegaly LUNGS: Respirations even and unlabored. Lungs diminished to auscultation bilaterally. HEART: Regular rate and rhythm. S1 and S2 heard. EXTREMITIES: Normal range of motion. No clubbing or cyanosis. Peripheral pulses intact. Trace bilateral lower extremity edema ASSESSMENT: Acute on chronic heart failure with reduced ejection fraction Abnormal troponins, flat, likely secondary to above Known multivessel coronary artery disease with previous angioplasty of mid LAD Chronic total occlusion of distal LAD Chronic occlusion of RCA Ischemic cardiomyopathy, ejection fraction 30-35% PLAN: Discontinue IV heparin. Begin subcu heparin Continue IV Lasix. Decrease dosage to every 12 hours Daily weights, accurate I&O, and monitor kidney function Continue additional cardiac medications Further recommendations pending patient's course Nurse practitioner note has been reviewed by physician. Signing provider agrees with the documented findings, assessment, and plan of care. Objective - Vital Signs Vital signs: Vital Signs Temp 98.4 F 10/27/22 12:00 Pulse 74 10/27/22 12:00 Resp 17 10/27/22 12:00 BP 93/61 10/27/22 12:00 Pulse Ox 98 10/27/22 12:00 FiO2 Intake & Output 10/26/22 10/27/22 10/27/22 18:59 06:59 18:59 Intake Total 603.333 240 Output Total 6615 3100 Balance -8865.667 -2860 Weight 94 kg 82.8 kg Intake: IV 120 Heparin Sod,Pork in 0.45% 120 NaCl 25,000 unit In 0.45 % NaCl 1 250ml.bag @ 9. 669 UNITS/KG/HR 10 mls/hr IV .Q24H [facility] Rx#: [id number] Intake, IV Titration 247.333 Amount Heparin Sod,Pork in 0.45% 247.333 NaCl 25,000 unit In 0.45 % NaCl 1 250ml.bag @ 9. 669 UNITS/KG/HR 10 mls/hr IV .Q24H [facility] Rx#: [id number] Oral 236 240 Output: Urine 2725 3100 Other: Voiding Method Toilet Toilet # Bowel Movements 1 - Labs CBC & Chem 7: 10/26/22 06:24 10/27/22 06:59 Labs: Abnormal Lab Results - Last 24 Hours (Table) 10/27/22 10/27/22 Range/Units 06:59 06:59 APTT 60.4 H (22.0-30.0) sec Sodium 134 L (137-145) mmol/L Potassium 2.7 L* (3.5-5.1) mmol/L Chloride 91 L (98-107) mmol/L Carbon Dioxide 37 H (22-30) mmol/L Glucose 108 H (74-99) mg/dL Total Protein 5.8 L (6.3-8.2) g/dL Albumin 3.0 L (3.5-5.0) g/dL
--- NOTE | 2022-10-27 14:17 | P.PN ---
Subjective Progress Note Date: 10/27/22 Hospital course: Patient is a very pleasant 57-year-old male with a past medical history of CAD with previous PR and stent placement 2, hypertension, hyperlipidemia, COPD with continued nicotine dependence, and alcohol use/abuse. Patient reports that he has been clean from alcohol use 2 months because he was incarcerated. He reports that he just got out of [facility] and upon getting home, he got into a hot shower and suddenly began having shortness of breath and chest pain. Patient reports in addition to this he has had worsening lower extremity edema worse on left as he has been unable to care for properly while in [facility]. Patient reports chronic wounds on bilateral lower extremities have been improving since he has been applying Bactrim and wrapping with compression bandages. Patient denies having any fevers, chills, diaphoresis, dizziness, lightheadedness, cough, sinus congestion or drainage, palpitations, nausea, vomiting, or experiencing any n umbness/tingling/weakness in his extremities. He underwent full evaluation in the emergency department. Labs completed and reviewed. CBC revealing macrocytic microchromic anemia with hemoglobin of 9.5. BMP showing mild hyponatremia with sodium of 133 and hypochloremia with chloride of 97. Liver profile revealing hyperbilirubinemia with bilirubin of 1.4, AST of 62, ALT is 52, and alkaline phosphatase of 125. Troponin elevated at 0.044 and pro-BMP 13,500. EKG showing normal sinus rhythm at 84 bpm with no significant T-wave or ST abnormalities upon personal review and interpretation. Chest x-ray completed and reviewed, radiology report stating suggestion of atelectasis at left lung base an old right rib fractures noted. Patient was started on heparin infusion for elevated troponin. Discussed patient, laboratory findings, and imaging results in great detail with the ED provider. Patient was admitted under our services with consultation to cardiology. Heart score 4. CTA chest was completed ruling out pulmonary emboli and revealing small to moderate right pleural effusion with limited evaluation of the diaphragm with possible posterior herniation. Echocardiogram was completed revealing significantly impaired EF of 30-35% with moderate pulmonary hypertension and moderate mitral and tricuspid regurgitation. Physical exam: Vital signs reviewed and stable. General: Nontoxic, no distress and appears stated age. Derm: Skin warm and dry, normal coloration for ethnicity. Head: Atraumatic, normocephalic and symmetric. Eyes: EOMs intact, no lid lag, and anicteric sclera Mouth: no lip lesions, mucus membranes moist Cardiovascular: regular rate and rhythm with normal S1S2, systolic murmur, positive posterior tibial pulses bilaterally, and cap refill < 2 seconds. Lungs: Respirations even, regular, and unlabored on room air. Lungs CTA bilaterally, no rhonchi, no rales, no wheezing, and no accessory muscle usage. Abdominal: soft, nontender to palpation, no guarding, no appreciable organomegaly Ext: ROM intact. No gross muscle atrophy, 3+ pitting bilateral lower extremity edema, no contractures. Venous discoloration and edema to bilateral lower extremities. Wounds with scab/crusting on dorsal surface of left foot. Neuro: Speech clear, face symmetrical and CN II-XII grossly intact with no noted focal neuro deficits Psych: Alert and oriented to person, place, time, and situation. Appropriate and pleasant affect. Assessment and Plan of Care: Acute exacerbation of chronic systolic heart failure with EF of 30-35% Elevated troponins, believed to be secondary to acute CHF exacerbation History of CAD with previous stenting 2 Hypertension Hyperlipidemia COPD -Continue cardiac medication regimen consisting of aspirin, atorvastatin, hydrochlorothiazide, lisinopril, and metoprolol. -Cardiology following and discussed plan of care with cardiology SHOE REPAIRER APPRENTICE, Lasix to be decreased to 40 mg IVP every 12 hours secondary to successful diuresis and current hypokalemia and hypomagnesemia. -Continue strict I's and O's and daily weights. Patient has had urinary output of 5825 mL over the past 24 hours. -Morning labs reviewed showing hypomagnesemia with magnesium of 1.6, hyponatremia with sodium of 134, hypokalemia with potassium of 2.7, hypochloremia with chloride of 91, and hypercarbia with bicarb of 37. Discussed with cardiology SHOE REPAIRER APPRENTICE and Lasix will be decreased to 40 mg IVP twice daily secondary to metabolic alkalosis and above electrolyte abnormalities. -Orders also placed for repeat BMP and magnesium level tomorrow morning to closely monitor renal function and electrolytes with IV diuresis. History of alcohol abuse Transaminitis, resolved -Liver enzymes were initially elevated with total bili of 1.4, AST of 62, ALT of 52, and alkaline phosphatase of 125. Repeat CMP completed with morning labs showing resolution of transaminitis with total bili of 1.3, AST of 58, and ALT of 46 with alkaline phosphatase of 122. -Patient reports 2 months since last time a using alcohol. We will continue to monitor with repeat a.m. labs, no further interventions at this time. Wounds with scabbing/crusting on dorsal surface of left foot Peripheral venous insufficiency with chronic wound -Wound care following The patient is admitted with an anticipated less than than 2 midnight stay for evaluation of chest pain and shortness of breath CODE STATUS: Full code DVT prophylaxis: Heparin Discussed with: Patient, cardiology SHOE REPAIRER APPRENTICE and RN Anticipated discharge date: clinical course to determine Anticipated discharge place: Home Patient was seen independently by Nurse Practitioner. This document was prepared using [employer] dictation software. Please allow for errors in watch train inspector while rare they do occur. I reviewed the documentation as provided by the ANGELITO above, who is the original author of this note. I agree with the documented assessment and plan, with the following changes: none Objective - Vital Signs Vital signs: Vital Signs Temp 98.1 F 10/27/22 04:00 Pulse 80 10/27/22 04:00 Resp 18 10/27/22 04:00 BP 100/70 10/27/22 04:00 Pulse Ox 95 10/27/22 04:00 FiO2 Intake & Output 10/26/22 10/27/22 10/27/22 18:59 06:59 18:59 Intake Total 603.333 240 Output Total 2725 3100 Balance -2121.667 -2860 Weight 94 kg 82.8 kg Intake: IV 120 Heparin Sod,Pork in 0.45% 120 NaCl 25,000 unit In 0.45 % NaCl 1 250ml.bag @ 9. 669 UNITS/KG/HR 10 mls/hr IV .Q24H ROLA Rx#: [id number] Intake, IV Titration 247.333 Amount Heparin Sod,Pork in 0.45% 247.333 NaCl 25,000 unit In 0.45 % NaCl 1 250ml.bag @ 9. 669 UNITS/KG/HR 10 mls/hr IV .Q24H ROLA Rx#: [id number] Oral 236 240 Output: Urine 2725 3100 Other: Voiding Method Toilet # Bowel Movements 1 - Labs CBC & Chem 7: 10/26/22 06:24 10/27/22 06:59 Labs: Abnormal Lab Results - Last 24 Hours (Table) 10/26/22 10/26/2210/26/23 Range/Units 06:24 06:24 06:24 RBC 3.94 L (4.30-5.90) m/uL Hgb 9.9 L (13.0-17.5) gm/dL Hct 32.1 L (39.0-53.0) % MCHC 30.8 L (31.0-37.0) g/dL RDW 18.0 H (11.5-15.5) % PT 13.0 H (9.0-12.0) sec INR 1.3 H (<1.2) APTT (22.0-30.0) sec Sodium (137-145) mmol/L Potassium (3.5-5.1) mmol/L Chloride (98-107) mmol/L Carbon Dioxide (22-30) mmol/L Glucose (74-99) mg/dL POC Glucose (mg/dL) (70-110) mg/dL Total Protein (6.3-8.2) g/dL Albumin (3.5-5.0) g/dL HDL Cholesterol 25.10 L (40.00-60.00) mg/dL 10/26/22 10/26/22 10/27/22 Range/Units 06:24 11:41 06:59 RBC (4.30-5.90) m/uL Hgb (13.0-17.5) gm/dL Hct (39.0-53.0) % MCHC (31.0-37.0) g/dL RDW (11.5-15.5) % PT (9.0-12.0) sec INR (<1.2) APTT 49.5 H 60.4 H (22.0-30.0) sec Sodium (137-145) mmol/L Potassium (3.5-5.1) mmol/L Chloride (98-107) mmol/L Carbon Dioxide (22-30) mmol/L Glucose (74-99) mg/dL POC Glucose (mg/dL) 118 H (70-110) mg/dL Total Protein (6.3-8.2) g/dL Albumin (3.5-5.0) g/dL HDL Cholesterol (40.00-60.00) mg/dL 10/27/22 Range/Units 06:59 RBC (4.30-5.90) m/uL Hgb (13.0-17.5) gm/dL Hct (39.0-53.0) % MCHC (31.0-37.0) g/dL RDW (11.5-15.5) % PT (9.0-12.0) sec INR (<1.2) APTT (22.0-30.0) sec Sodium 134 L (137-145) mmol/L Potassium 2.7 L* (3.5-5.1) mmol/L Chloride 91 L (98-107) mmol/L Carbon Dioxide 37 H (22-30) mmol/L Glucose 108 H (74-99) mg/dL POC Glucose (mg/dL) (70-110) mg/dL Total Protein 5.8 L (6.3-8.2) g/dL Albumin 3.0 L (3.5-5.0) g/dL HDL Cholesterol (40.00-60.00) mg/dL
[2022-10-27] MEDS: HEPARIN SODIUM,PORCINE/PF 5,000 UNIT/0.5 ML SYRINGE SQ SCH ×2 (16:46→23:04)
[2022-10-27] MEDS: ZINC OXIDE 20% OINT 28.4 GM TUBE TOPICAL SCH (17:08)
[2022-10-27] MEDS: ATORVASTATIN 80 MG TAB PO SCH (19:55)
[2022-10-27] MEDS: DULoxetine HCL 60 MG CAPSULE.DR PO SCH (19:55)
[2022-10-27] MEDS ORDERED: SODIUM CHLORIDE 0.9% 1,000 ML IV SCH (20:00)
[2022-10-28 08:24] LABS: ALT 45 U/L (4-49); AST 58 U/L (17-59); African American GFR (CKD) >90 (>60 ml/min/1.73 sqM); Alkaline Phosphatase 116 U/L (38-126); Anion Gap 5 mmol/L; Blood Urea Nitrogen 15 mg/dL (9-20); Calcium 8.3 mg/dL (8.4-10.2); Carbon Dioxide 34 mmol/L (22-30); Chloride 92 mmol/L (98-107); Glucose 103 mg/dL (74-99); Magnesium 1.7 mg/dL (1.6-2.3); Non-African American GFR(CKD) >90 (>60 ml/min/1.73 sqM); Potassium 3.5 mmol/L (3.5-5.1); Sodium 131 mmol/L (137-145); Total Bilirubin 1.4 mg/dL (0.2-1.3); Total Protein 5.8 g/dL (6.3-8.2)
[2022-10-28] MEDS: ASPIRIN 81 MG PO SCH (08:24)
[2022-10-28] MEDS: HEPARIN SODIUM,PORCINE/PF 5,000 UNIT/0.5 ML SYRINGE SQ SCH ×2 (08:24→15:51)
[2022-10-28] MEDS: METOPROLOL TARTRATE 25 MG TAB PO SCH ×2 (08:24→20:10)
[2022-10-28] MEDS: ZINC OXIDE 20% OINT 28.4 GM TUBE TOPICAL SCH (08:28)
[2022-10-28 08:49] LABS: Anisocytosis Slight; HCT 31.4 % (39.0-53.0); HGB 9.7 gm/dL (13.0-17.5); Hypochromasia Marked; MCH 24.8 pg (25.0-35.0); MCV 79.9 fL (80.0-100.0); Mean Platelet Volume 7.7; Microcytosis Slight; Platelet Count 222 k/uL (150-450); Poikilocytosis Slight; RBC 3.93 m/uL (4.30-5.90); RDW 18.3 % (11.5-15.5); WBC 7.8 k/uL (3.8-10.6)
[2022-10-28] MEDS ORDERED: POTASSIUM CHLORIDE ER 20 MEQ TAB.ER PO STA (09:45)
[2022-10-28] MEDS ORDERED: SODIUM CHLORIDE 0.9% 500 ML 500 ML IV ONE (09:49)
--- NOTE | 2022-10-28 10:24 | P.PN ---
Subjective Progress Note Date: 10/28/22 HISTORY OF PRESENT ILLNESS: This is a 57-year-old male who is a patient of Dr. Chaudhari. Patient is admitted to the hospital secondary to congestive heart failure. Patient examined this morning at the bedside. Patient denies chest pain or pressure. He denies shortness of breath at rest. He does report continued shortness of breath with exertion. He remains on IV Lasix. His urine output over the last 24 hours is approximately 5 L. Potassium is low this morning at 2.7. Echocardiogram revealed ejection fraction 30-35% which is slightly lower than his previous echocardiogram which revealed EF of 40-45%. 10/28/2022 Patient examined this morning at the bedside. Patient denies chest pain or pressure. He currently denies shortness of breath. His lasix was discontinued yesterday by internal medicine. Patient was having issues with hypotension yesterday. Blood pressure this morning stable. PHYSICAL EXAM: VITAL SIGNS: Reviewed. GENERAL: Well-developed in no acute distress. NECK: Supple. No JVD or thyromegaly LUNGS: Respirations even and unlabored. Lungs with rhonchi noted on the left side. No crackles noted. HEART: Regular rate and rhythm. S1 and S2 heard. EXTREMITIES: Normal range of motion. No clubbing or cyanosis. Peripheral pulses intact. Trace bilateral lower extremity edema ASSESSMENT: Acute on chronic heart failure with reduced ejection fraction Abnormal troponins, flat, likely secondary to above Known multivessel coronary artery disease with previous angioplasty of mid LAD Chronic total occlusion of distal LAD Chronic occlusion of RCA Ischemic cardiomyopathy, ejection fraction 30-35% Hypokalemia PLAN: Lasix discontinued yesterday per internal medicine Daily weights, accurate I&O, and monitor kidney function Continue additional cardiac medications Further recommendations pending patient's course Nurse practitioner note has been reviewed by physician. Signing provider agrees with the documented findings, assessment, and plan of care. Objective - Vital Signs Vital signs: Vital Signs Temp 98.4 F 10/28/22 08:00 Pulse 71 10/28/22 08:00 Resp 18 10/28/22 08:00 BP 116/67 10/28/22 08:00 Pulse Ox 95 10/28/22 08:00 FiO2 Intake & Output 10/27/22 10/28/22 10/28/22 18:59 06:59 18:59 Output Total 2100 1200 Balance -2100 -1200 Weight 80.4 kg Output: Urine 2099 1200 Other: Voiding Method Toilet Toilet # Voids 2 - Labs CBC & Chem 7: 10/28/22 07:24 10/28/22 07:24 Labs: Abnormal Lab Results - Last 24 Hours (Table) 10/28/22 10/28/22 Range/Units 07:24 07:24 RBC 3.93 L (4.30-5.90) m/uL Hgb 9.7 L (13.0-17.5) gm/dL Hct 31.4 L (39.0-53.0) % MCV 79.9 L (80.0-100.0) fL MCH 24.8 L (25.0-35.0) pg RDW 18.3 H (11.5-15.5) % Sodium 131 L (137-145) mmol/L Chloride 92 L (98-107) mmol/L Carbon Dioxide 34 H (22-30) mmol/L Glucose 103 H (74-99) mg/dL Calcium 8.3 L (8.4-10.2) mg/dL Total Bilirubin 1.4 H (0.2-1.3) mg/dL Total Protein 5.8 L (6.3-8.2) g/dL Albumin 3.0 L (3.5-5.0) g/dL
[2022-10-28] MEDS: MAGNESIUM SULFATE-D5W PMX 1 GM in DEXTROSE/WATER 1 100ML.BAG IVPB SCH ×2 (11:32→15:51)
--- NOTE | 2022-10-28 19:02 | P.PN ---
Subjective Progress Note Date: 10/28/22 Hospital course: Patient is a very pleasant 57-year-old male with a past medical history of CAD with previous PR and stent placement 2, hypertension, hyperlipidemia, COPD with continued nicotine dependence, and alcohol use/abuse. Patient reports that he has been clean from alcohol use 2 months because he was incarcerated. He reports that he just got out [facility] and upon getting home, he got into a hot shower and suddenly began having shortness of breath and chest pain. Patient reports in addition to this he has had worsening lower extremity edema worse on left as he has been unable to care for properly while in [facility]. Patient reports chronic wounds on bilateral lower extremities have been improving since he has been applying Bactrim and wrapping with compression bandages. Patient denies having any fevers, chills, diaphoresis, dizziness, lightheadedness, cough, sinus congestion or drainage, palpitations, nausea, vomiting, or experiencing any n umbness/tingling/weakness in his extremities. He underwent full evaluation in the emergency department. Labs completed and reviewed. CBC revealing macrocytic microchromic anemia with hemoglobin of 9.5. BMP showing mild hyponatremia with sodium of 133 and hypochloremia with chloride of 97. Liver profile revealing hyperbilirubinemia with bilirubin of 1.4, AST of 62, ALT is 52, and alkaline phosphatase of 125. Troponin elevated at 0.044 and pro-BMP 13,500. EKG showing normal sinus rhythm at 84 bpm with no significant T-wave or ST abnormalities upon personal review and interpretation. Chest x-ray completed and reviewed, radiology report stating suggestion of atelectasis at left lung base an old right rib fractures noted. Patient was started on heparin infusion for elevated troponin. Discussed patient, laboratory findings, and imaging results in great detail with the ED provider. Patient was admitted under our services with consultation to cardiology. Heart score 4. CTA chest was completed ruling out pulmonary emboli and revealing small to moderate right pleural effusion with limited evaluation of the diaphragm with possible posterior herniation. Echocardiogram was completed revealing significantly impaired EF of 30-35% with moderate pulmonary hypertension and moderate mitral and tricuspid regurgitation. Physical exam: Vital signs reviewed and stable. General: Nontoxic, no distress and appears stated age. Derm: Skin warm and dry, normal coloration for ethnicity. Head: Atraumatic, normocephalic and symmetric. Eyes: EOMs intact, no lid lag, and anicteric sclera Mouth: no lip lesions, mucus membranes moist Cardiovascular: regular rate and rhythm with normal S1S2, systolic murmur, positive posterior tibial pulses bilaterally, and cap refill < 2 seconds. Lungs: Respirations even, regular, and unlabored on room air. Lungs CTA bilaterally, no rhonchi, no rales, no wheezing, and no accessory muscle usage. Abdominal: soft, nontender to palpation, no guarding, no appreciable organomegaly Ext: ROM intact. No gross muscle atrophy, 3+ pitting bilateral lower extremity edema, no contractures. Venous discoloration and edema to bilateral lower extremities. Wounds with scab/crusting on dorsal surface of left foot. Neuro: Speech clear, face symmetrical and CN II-XII grossly intact with no noted focal neuro deficits Psych: Alert and oriented to person, place, time, and situation. Appropriate and pleasant affect. Assessment and Plan of Care: Acute exacerbation of chronic systolic heart failure with EF of 30-35% Elevated troponins, believed to be secondary to acute CHF exacerbation History of CAD with previous stenting 2 Hypertension Hyperlipidemia COPD Metabolic alkalosis -Continue cardiac medication regimen consisting of aspirin, atorvastatin, hydrochlorothiazide, lisinopril, and metoprolol. -Cardiology following and discussed plan of care with cardiology [facility] [facility] MAGISTRATE regarding need to discontinue Lasix at this time. -Continue strict I's and O's and daily weights. Patient has documented output of 3300 mL over the past 24 hours. -Morning labs reviewed. CBC revealing stable anemia with hemoglobin of 9.7. BMP revealing continued metabolic alkalosis with sodium 131, chloride 92, bicarb 34, and anion gap 5. Magnesium 1.7. -Lasix discontinued secondary to metabolic alkalosis and over-diuresis. Patient provided with a 500 mL bolus of 0.9% normal saline secondary to metabolic alkalosis and overdiuresis. -Patient given K-Dur 20 milliequivalents 1 dose for potassium of 3.5, magnesium sulfate 2 g IVPB for magnesium of 1.7, -Orders also placed for repeat BMP and magnesium level tomorrow morning to closely monitor renal function and electrolytes. History of alcohol abuse Transaminitis, resolved -Liver enzymes were initially elevated with total bili of 1.4, AST of 62, ALT of 52, and alkaline phosphatase of 125. Repeat CMP completed with morning labs showing resolution of transaminitis with total bili of 1.4, AST 58, and ALT 45 with alkaline phosphatase of 116. -Patient reports 2 months since last time a using alcohol. We will continue to monitor with repeat a.m. labs, no further interventions at this time. Wounds with scabbing/crusting on dorsal surface of left foot Peripheral venous insufficiency with chronic wound -Wound care following The patient is admitted with an anticipated less than than 2 midnight stay for evaluation of chest pain and shortness of breath CODE STATUS: Full code DVT prophylaxis: Heparin Discussed with: Patient, cardiology [facility] [employer] MAGISTRATE and RN Anticipated discharge date: clinical course to determine Anticipated discharge place: Home Patient was seen independently by Nurse Practitioner. This document was prepared using [employer] dictation software. Please allow for errors in [employer] while rare they do occur. Rony Howell NP rendered care for this patient independently, reviewed the findings and plan as documented in the note above. I did not physically speak with or examine the patient on this date. Objective - Vital Signs Vital signs: Vital Signs Temp 98.4 F 10/28/22 03:10 Pulse 91 10/28/22 03:10 Resp 18 10/28/22 03:10 BP 103/71 10/28/22 03:10 Pulse Ox 95 10/28/22 03:10 FiO2 Intake & Output 10/27/22 10/28/22 10/28/22 18:59 06:59 18:59 Output Total 2100 1200 Balance -2100 -1200 Weight 80.4 kg Output: Urine 2100 1200 Other: Voiding Method Toilet Toilet # Voids 2 - Labs CBC & Chem 7: 10/28/22 07:24 10/28/22 07:24 Labs: Abnormal Lab Results - Last 24 Hours (Table) 10/27/22 Range/Units 06:59 Sodium 134 L (137-145) mmol/L Potassium 2.7 L* (3.5-5.1) mmol/L Chloride 91 L (98-107) mmol/L Carbon Dioxide 37 H (22-30) mmol/L Glucose 108 H (74-99) mg/dL Total Protein 5.8 L (6.3-8.2) g/dL Albumin 3.0 L (3.5-5.0) g/dL
[2022-10-28] MEDS: ATORVASTATIN 80 MG TAB PO SCH (20:10)
[2022-10-28] MEDS: DULoxetine HCL 60 MG CAPSULE.DR PO SCH (20:10)
[2022-10-29] MEDS: HEPARIN SODIUM,PORCINE/PF 5,000 UNIT/0.5 ML SYRINGE SQ SCH ×3 (00:25→17:27)
[2022-10-29 08:38] LABS: ALT 46 U/L (4-49); AST 60 U/L (17-59); African American GFR (CKD) >90 (>60 ml/min/1.73 sqM); Albumin 3.2 g/dL (3.5-5.0); Alkaline Phosphatase 120 U/L (38-126); Anion Gap 5 mmol/L; Blood Urea Nitrogen 17 mg/dL (9-20); Calcium 8.3 mg/dL (8.4-10.2); Carbon Dioxide 29 mmol/L (22-30); Chloride 97 mmol/L (98-107); Glucose 162 mg/dL (74-99); Magnesium 1.9 mg/dL (1.6-2.3); Non-African American GFR(CKD) >90 (>60 ml/min/1.73 sqM); Potassium 4.3 mmol/L (3.5-5.1); Sodium 131 mmol/L (137-145); Total Bilirubin 1.5 mg/dL (0.2-1.3); Total Protein 6.2 g/dL (6.3-8.2)
[2022-10-29] MEDS: METOPROLOL TARTRATE 25 MG TAB PO SCH ×2 (09:11→20:10)
[2022-10-29] MEDS: ASPIRIN 81 MG PO SCH (09:11)
[2022-10-29] MEDS: ZINC OXIDE 20% OINT 28.4 GM TUBE TOPICAL SCH ×2 (09:12→16:25)
--- NOTE | 2022-10-29 11:42 | P.PN ---
Subjective Progress Note Date: 10/29/22 HISTORY OF PRESENT ILLNESS: This is a 57-year-old male who is a patient of Dr. Chaudhari. Patient is admitted to the hospital secondary to congestive heart failure. Patient examined this morning at the bedside. Patient denies chest pain or pressure. He denies shortness of breath at rest. He does report continued shortness of breath with exertion. He remains on IV Lasix. His urine output over the last 24 hours is approximately 5 L. Potassium is low this morning at 2.7. Echocardiogram revealed ejection fraction 30-35% which is slightly lower than his previous echocardiogram which revealed EF of 40-45%. 10/28/2022 Patient examined this morning at the bedside. Patient denies chest pain or pressure. He currently denies shortness of breath. His lasix was discontinued yesterday by internal medicine. Patient was having issues with hypotension yesterday. Blood pressure this morning stable. 10/29/2022 Patient examined this morning at the bedside. Patient denies chest pain or pressure. He denies shortness of breath. Patient's kidney function stable today. CO2 29. Vital signs are stable. PHYSICAL EXAM: VITAL SIGNS: Reviewed. GENERAL: Well-developed in no acute distress. NECK: Supple. No JVD or thyromegaly LUNGS: Respirations even and unlabored. Lungs diminished. HEART: Regular rate and rhythm. S1 and S2 heard. EXTREMITIES: Normal range of motion. No clubbing or cyanosis. Peripheral pulses intact. No lower extremity edema ASSESSMENT: Acute on chronic heart failure with reduced ejection fraction Abnormal troponins, flat, likely secondary to above Known multivessel coronary artery disease with previous angioplasty of mid LAD Chronic total occlusion of distal LAD Chronic occlusion of RCA Ischemic cardiomyopathy, ejection fraction 30-35% Hypokalemia PLAN: Resume Lasix. Begin 40 mg by mouth daily Daily weights, accurate I&O, and monitor kidney function Continue additional cardiac medications Further recommendations pending patient's course Nurse practitioner note has been reviewed by physician. Signing provider agrees with the documented findings, assessment, and plan of care. Objective - Vital Signs Vital signs: Vital Signs Temp 98.4 F 10/29/22 03:18 Pulse 89 10/29/22 08:00 Resp 16 10/29/22 08:00 BP 107/48 10/29/22 08:00 Pulse Ox 97 10/29/22 08:00 FiO2 Intake & Output 10/28/22 10/29/22 10/29/22 18:59 06:59 18:59 Intake Total 780 240 Output Total 800 550 Balance 780 -800 -310 Weight 80.4 kg 77.1 kg Intake: Oral 780 240 Output: Urine 800 550 Other: Voiding Method Toilet Toilet - Labs CBC & Chem 7: 10/28/22 07:24 10/29/22 08:04 Labs: Abnormal Lab Results - Last 24 Hours (Table) 10/29/22 Range/Units 08:04 Sodium 131 L (137-145) mmol/L Chloride 97 L (98-107) mmol/L Glucose 162 H (74-99) mg/dL Calcium 8.3 L (8.4-10.2) mg/dL Total Bilirubin 1.5 H (0.2-1.3) mg/dL AST 60 H (17-59) U/L Total Protein 6.2 L (6.3-8.2) g/dL Albumin 3.2 L (3.5-5.0) g/dL
--- NOTE | 2022-10-29 13:54 | P.PN ---
Subjective Progress Note Date: 10/29/22 Hospital course: Patient is a very pleasant 57-year-old male with a past medical history of CAD with previous CA and stent placement 2, hypertension, hyperlipidemia, COPD with continued nicotine dependence, and alcohol use/abuse. Patient reports that he has been clean from alcohol use 2 months because he was incarcerated. He reports that he just got out of longterm and upon getting home, he got into a hot shower and suddenly began having shortness of breath and chest pain. Patient reports in addition to this he has had worsening lower extremity edema worse on left as he has been unable to care for properly while in longterm. Patient reports chronic wounds on bilateral lower extremities have been improving since he has been applying Bactrim and wrapping with compression bandages. Patient denies having any fevers, chills, diaphoresis, dizziness, lightheadedness, cough, sinus congestion or drainage, palpitations, nausea, vomiting, or experiencing any n umbness/tingling/weakness in his extremities. He underwent full evaluation in the emergency department. Labs completed and reviewed. CBC revealing macrocytic microchromic anemia with hemoglobin of 9.5. BMP showing mild hyponatremia with sodium of 133 and hypochloremia with chloride of 97. Liver profile revealing hyperbilirubinemia with bilirubin of 1.4, AST of 62, ALT is 52, and alkaline phosphatase of 125. Troponin elevated at 0.044 and pro-BMP 13,500. EKG showing normal sinus rhythm at 84 bpm with no significant T-wave or ST abnormalities upon personal review and interpretation. Chest x-ray completed and reviewed, radiology report stating suggestion of atelectasis at left lung base an old right rib fractures noted. Patient was started on heparin infusion for elevated troponin. Discussed patient, laboratory findings, and imaging results in great detail with the ED provider. Patient was admitted under our services with consultation to cardiology. Heart score 4. CTA chest was completed ruling out pulmonary emboli and revealing small to moderate right pleural effusion with limited evaluation of the diaphragm with possible posterior herniation. Echocardiogram was completed revealing significantly impaired EF of 30-35% with moderate pulmonary hypertension and moderate mitral and tricuspid regurgitation. Physical exam: Vital signs reviewed and stable. General: Nontoxic, no distress and appears stated age. Derm: Skin warm and dry, normal coloration for ethnicity. Head: Atraumatic, normocephalic and symmetric. Eyes: EOMs intact, no lid lag, and anicteric sclera Mouth: no lip lesions, mucus membranes moist Cardiovascular: regular rate and rhythm with normal S1S2, systolic murmur, positive posterior tibial pulses bilaterally, and cap refill < 2 seconds. Lungs: Respirations even, regular, and unlabored on room air. Lungs CTA bilaterally, no rhonchi, no rales, no wheezing, and no accessory muscle usage. Abdominal: soft, nontender to palpation, no guarding, no appreciable organomegaly Ext: ROM intact. No gross muscle atrophy, 3+ pitting bilateral lower extremity edema, no contractures. Venous discoloration and edema to bilateral lower extremities. Wounds with scab/crusting on dorsal surface of left foot. Neuro: Speech clear, face symmetrical and CN II-XII grossly intact with no noted focal neuro deficits Psych: Alert and oriented to person, place, time, and situation. Appropriate and pleasant affect. Assessment and Plan of Care: Acute exacerbation of chronic systolic heart failure with EF of 30-35% Elevated troponins, believed to be secondary to acute CHF exacerbation History of CAD with previous stenting 2 Hypertension Hyperlipidemia COPD Metabolic alkalosis -Continue cardiac medication regimen consisting of aspirin, atorvastatin, hydrochlorothiazide, lisinopril, and metoprolol. -Metabolic acidosis significantly improved after IV fluid hydration. Morning labs reviewed, BMP revealing hypernatremia sodium of 131, hypochloremia with chloride of 97, and normal bicarb of 29. This is significantly improved from previous labs showing sodium 134, chloride 91, and bicarb of 37. Hypokalemia resolved with potassium of 4.3. Hypomagnesemia resolved with magnesium of 1.9. -Cardiology following and discussed plan of care with cardiology SHIRT PRESSER,secondary to resolution of metabolic alkalosis we will start patient on oral Lasix 40 mg daily beginning today. -Continue strict I's and O's and daily weights. Patient has documented output of 800 mL over the past 24 hours. -Order placed for repeat morning BMP and magnesium level to closely monitor renal function and electrolytes Closely since resuming diuretic. History of alcohol abuse Transaminitis, resolved -Liver enzymes were initially elevated with total bili of 1.4, AST of 62, ALT of 52, and alkaline phosphatase of 125. Repeat CMP completed with morning labs showing resolution of transaminitis with total bili of 1.5, AST 60, and ALT 46 with alkaline phosphatase of 120. -Patient reports 2 months since last time a using alcohol. We will continue to monitor with repeat a.m. labs, no further interventions at this time. Wounds with scabbing/crusting on dorsal surface of left foot Peripheral venous insufficiency with chronic wound -Wound care following The patient is admitted with an anticipated less than than 2 midnight stay for evaluation of chest pain and shortness of breath CODE STATUS: Full code DVT prophylaxis: Heparin Discussed with: Patient, cardiology SHIRT PRESSER and RN Anticipated discharge date: Plan for discharge likely tomorrow morning Anticipated discharge place: Home Patient was seen independently by Nurse Practitioner. This document was prepared using [employer] dictation software. Please allow for errors in social organization professor while rare they do occur. Rony Howell NP rendered care for this patient independently, reviewed the findings and plan as documented in the note above. I did not physically speak with or examine the patient on this date. Objective - Vital Signs Vital signs: Vital Signs Temp 98.4 F 10/29/22 03:18 Pulse 88 10/29/22 03:18 Resp 15 10/29/22 03:18 BP 100/65 10/29/22 03:18 Pulse Ox 96 10/29/22 03:18 FiO2 Intake & Output 10/28/22 10/29/22 10/29/22 18:59 06:59 18:59 Intake Total 780 Output Total 800 550 Balance 780 -800 -550 Weight 80.4 kg 77.1 kg Intake: Oral 780 Output: Urine 800 550 Other: Voiding Method Toilet - Labs CBC & Chem 7: 10/28/22 07:24 10/29/22 08:04 Labs: Abnormal Lab Results - Last 24 Hours (Table) 10/28/22 10/29/22 Range/Units 07:24 08:04 RBC 3.93 L (4.30-5.90) m/uL Hgb 9.7 L (13.0-17.5) gm/dL Hct 31.4 L (39.0-53.0) % MCV 79.9 L (80.0-100.0) fL MCH 24.8 L (25.0-35.0) pg RDW 18.3 H (11.5-15.5) % Sodium 131 L (137-145) mmol/L Chloride 97 L (98-107) mmol/L Glucose 162 H (74-99) mg/dL Calcium 8.3 L (8.4-10.2) mg/dL Total Bilirubin 1.5 H (0.2-1.3) mg/dL AST 60 H (17-59) U/L Total Protein 6.2 L (6.3-8.2) g/dL Albumin 3.2 L (3.5-5.0) g/dL
[2022-10-29] MEDS: FUROSEMIDE 40 MG TAB PO SCH (17:27)
[2022-10-29] MEDS: DULoxetine HCL 60 MG CAPSULE.DR PO SCH (20:10)
[2022-10-29] MEDS: ATORVASTATIN 80 MG TAB PO SCH (20:10)
[2022-10-30] MEDS: HEPARIN SODIUM,PORCINE/PF 5,000 UNIT/0.5 ML SYRINGE SQ SCH ×2 (00:02→08:17)
[2022-10-30 07:24] LABS: African American GFR (CKD) >90 (>60 ml/min/1.73 sqM); Anion Gap 7 mmol/L; Blood Urea Nitrogen 18 mg/dL (9-20); Calcium 8.1 mg/dL (8.4-10.2); Carbon Dioxide 27 mmol/L (22-30); Chloride 100 mmol/L (98-107); Glucose 95 mg/dL (74-99); Magnesium 1.9 mg/dL (1.6-2.3); Non-African American GFR(CKD) >90 (>60 ml/min/1.73 sqM); Potassium 4.2 mmol/L (3.5-5.1); Sodium 134 mmol/L (137-145)
[2022-10-30] MEDS: ZINC OXIDE 20% OINT 28.4 GM TUBE TOPICAL SCH (08:14)
[2022-10-30] MEDS: FUROSEMIDE 40 MG TAB PO SCH (08:17)
[2022-10-30] MEDS: METOPROLOL TARTRATE 25 MG TAB PO SCH (08:17)
[2022-10-30] MEDS: ASPIRIN 81 MG PO SCH (08:17)
[2022-10-30 08:21] VITALS: BP 96/64; PULSE 87; RESP 16; TEMP 98.1
--- NOTE | 2022-10-30 11:22 | P.PN ---
Subjective Progress Note Date: 10/30/22 HISTORY OF PRESENT ILLNESS: This is a 57-year-old male who is a patient of Dr. Chaudhari. Patient is admitted to the hospital secondary to congestive heart failure. Patient examined this morning at the bedside. Patient denies chest pain or pressure. He denies shortness of breath at rest. He does report continued shortness of breath with exertion. He remains on IV Lasix. His urine output over the last 24 hours is approximately 5 L. Potassium is low this morning at 2.7. Echocardiogram revealed ejection fraction 30-35% which is slightly lower than his previous echocardiogram which revealed EF of 40-45%. 10/28/2022 Patient examined this morning at the bedside. Patient denies chest pain or pressure. He currently denies shortness of breath. His lasix was discontinued yesterday by internal medicine. Patient was having issues with hypotension yesterday. Blood pressure this morning stable. 10/29/2022 Patient examined this morning at the bedside. Patient denies chest pain or pressure. He denies shortness of breath. Patient's kidney function stable today. CO2 29. Vital signs are stable. 10/30 patient is seen today in follow-up. He denies having any chest pain or s hortness of breath. He is currently on Lasix 40 mg daily oral. No lower extremity edema. Repeat blood work reveals sodium 134, potassium 4.4, BUN 18 and creatinine 0.68. PHYSICAL EXAM: VITAL SIGNS: Reviewed. GENERAL: Well-developed in no acute distress. NECK: Supple. No JVD or thyromegaly LUNGS: Respirations even and unlabored. Lungs diminished. HEART: Regular rate and rhythm. S1 and S2 heard. EXTREMITIES: Normal range of motion. No clubbing or cyanosis. Peripheral pulses intact. No lower extremity edema ASSESSMENT: Acute on chronic heart failure with reduced ejection fraction Abnormal troponins, flat, likely secondary to above Known multivessel coronary artery disease with previous angioplasty of mid LAD Chronic total occlusion of distal LAD Chronic occlusion of RCA Ischemic cardiomyopathy, ejection fraction 30-35% Hypokalemia PLAN: Continue additional cardiac medications Patient is cleared for discharge from cardiology. He may follow up in the office in 2 weeks. Cardiology will follow on an as-needed basis. Please reconsult for any new concerns. Nurse practitioner note has been reviewed by physician. Signing provider agrees with the documented findings, assessment, and plan of care. Objective - Vital Signs Vital signs: Vital Signs Temp 98.1 F 10/30/22 08:11 Pulse 87 10/30/22 08:11 Resp 16 10/30/22 08:11 BP 96/64 10/30/22 08:11 Pulse Ox 95 10/30/22 08:11 FiO2 Intake & Output 10/29/22 10/30/22 10/30/22 18:59 06:59 18:59 Intake Total 480 10 118 Output Total 550 325 Balance -70 -315 118 Weight 77.6 kg Intake: IV 10 0.9 10 Oral 480 118 Output: Urine 550 325 Other: Voiding Method Toilet Toilet Toilet Urinal Urinal # Voids 1 - Labs CBC & Chem 7: 10/28/22 07:24 10/30/22 05:46 Labs: Abnormal Lab Results - Last 24 Hours (Table) 10/30/22 Range/Units 05:46 Sodium 134 L (137-145) mmol/L Calcium 8.1 L (8.4-10.2) mg/dL
--- NOTE | 2022-10-30 19:02 | P.DS ---
Providers Date of admission: 10/25/22 12:29 Expected date of discharge: 10/30/22 Attending physician: Bharathi Martines MD Consults: 10/25/22 12:32 Consult Physician Urgent Consulting Provider: Balta Bird Consult Reason/Comments: chest pain Do you want consulting provider notified?: Yes Primary care physician: [facility] Hospital Course: Discharge Diagnosis: Acute exacerbation of chronic systolic heart failure with EF of 30-35% Elevated troponins, believed to be secondary to acute CHF exacerbation History of CAD with previous stenting 2 Hypertension Hyperlipidemia COPD Metabolic alkalosis History of alcohol abuse Transaminitis, resolved Wounds with scabbing/crusting on dorsal surface of left foot Peripheral venous insufficiency with chronic wound Hospital Course: Patient is a very pleasant 57-year-old male with a past medical history of CAD with previous LA and stent placement 2, hypertension, hyperlipidemia, COPD with continued nicotine dependence, and alcohol use/abuse. Patient reports that he has been clean from alcohol use 2 months because he was incarcerated. He reports that [facility] and upon getting home, he got into a hot shower and suddenly began having shortness of breath and chest pain. Patient reports in addition to this he has had worsening lower extremity edema worse on left as he has been unable to care for properly while in [facility]. Patient reports chronic wounds on bilateral lower extremities have been improving since he has been applying Bactrim and wrapping with compression bandages. Patient denies having any fevers, chills, diaphoresis, dizziness, lightheadedness, cough, sinus congestion or drainage, palpitations, nausea, vomiting, or experiencing any numbness/tingling/weakness in his extremities. He underwent full evaluation in the emergency department. Labs completed and reviewed. CBC revealing macrocytic microchromic anemia with hemoglobin of 9.5. BMP showing mild hyponatremia with sodium of 133 and hypochloremia with chloride of 97. Liver profile revealing hyperbilirubinemia with bilirubin of 1.4, AST of 62, ALT is 52, and alkaline phosphatase of 125. Troponin elevated at 0.044 and pro-BMP 13,500. EKG showing normal sinus rhythm at 84 bpm with no significant T-wave or ST abnormalities upon personal review and interpretation. Chest x-ray completed and reviewed, radiology report stating suggestion of atelectasis at left lung base an old right rib fractures noted. Patient was started on heparin infusion for elevated troponin. Discussed patient, laboratory findings, and imaging results in great detail with the ED provider. Patient was admitted under our services with consultation to cardiology. Heart score 4. CTA chest was completed ruling out pulmonary emboli and revealing small to moderate right pleural effusion with limited evaluation of the diaphragm with possible posterior herniation. Echocardiogram was completed revealing significantly impaired EF of 30-35% with moderate pulmonary hypertension and moderate mitral and tricuspid regurgitation. Patient underwent successful IV diuresis. He was started on oral Lasix 40 mg daily. Patient is medically stable at this time. He is being discharged home with home health services. Patient to continue cardiac medication regimen consisting of aspirin, atorvastatin, hydrochlorothiazide, lisinopril, and metoprolol and sent with prescription for Lasix 40 mg daily. Patient to follow up outpatient with PCP in 1-2 days and cardiology in 2 weeks. Physical exam: Vital signs reviewed and stable. General: Nontoxic, no distress and appears stated age. Derm: Skin warm and dry, normal coloration for ethnicity. Head: Atraumatic, normocephalic and symmetric. Eyes: EOMs intact, no lid lag, and anicteric sclera Mouth: no lip lesions, mucus membranes moist Cardiovascular: regular rate and rhythm with normal S1S2, systolic murmur, positive posterior tibial pulses bilaterally, and cap refill < 2 seconds. Lungs: Respirations even, regular, and unlabored on room air. Lungs CTA bilaterally, no rhonchi, no rales, no wheezing, and no accessory muscle usage. Abdominal: soft, nontender to palpation, no guarding, no appreciable organomegaly Ext: ROM intact. No gross muscle atrophy, 3+ pitting bilateral lower extremity edema, no contractures. Venous discoloration and edema to bilateral lower extremities. Wounds with scab/crusting on dorsal surface of left foot. Neuro: Speech clear, face symmetrical and CN II-XII grossly intact with no noted focal neuro deficits Psych: Alert and oriented to person, place, time, and situation. Appropriate and pleasant affect. A total of 33 minutes of time were spent preparing this complex discharge summary. Pt was discharged on 10/30/22 at 9:54 AM Patient was seen independently by Nurse Practitioner. This document was prepared using [employer] dictation software. Please allow for errors in track leader while rare they do occur. Rony Howell NP rendered care for this patient independently, reviewed the findings and plan as documented in the note above. I did not physically speak with or examine the patient on this date. Patient Condition at Discharge: Stable Plan - Discharge Summary Discharge Rx Participant: Yes New Discharge Prescriptions: New Furosemide [Lasix] 40 mg PO DAILY 30 Days #30 tab Continue Atorvastatin [Lipitor] 80 mg PO HS Aspirin EC [Ecotrin Low Dose] 81 mg PO HS DULoxetine HCL [Cymbalta] 60 mg PO HS Metoprolol Tartrate [Lopressor] 25 mg PO BID Albuterol Nebulized [Ventolin Nebulized] 2.5 mg INHALATION RT-Q8H PRN PRN Reason: Shortness Of Breath lisinopriL [Zestril] 2.5 mg PO DAILY Discontinued hydroCHLOROthiazide [Hydrodiuril] 25 mg PO DAILY No Action Sulfamethox-Tmp 800-160Mg [Bactrim DS 800-160 mg] 1 tab PO Q12HR Discharge Medication List Aspirin EC [Ecotrin Low Dose] 81 mg PO HS 03/30/21 [History] Atorvastatin [Lipitor] 80 mg PO HS 03/30/21 [History] DULoxetine HCL [Cymbalta] 60 mg PO HS 04/12/21 [History] Metoprolol Tartrate [Lopressor] 25 mg PO BID 04/12/21 [History] Albuterol Nebulized [Ventolin Nebulized] 2.5 mg INHALATION RT-Q8H PRN 10/25/22 [History] Sulfamethox-Tmp 800-160Mg [Bactrim DS 800-160 mg] 1 tab PO Q12HR 10/25/22 [History] lisinopriL [Zestril] 2.5 mg PO DAILY 10/25/22 [History] Furosemide [Lasix] 40 mg PO DAILY 30 Days #30 tab 10/30/22 [Rx] Follow up Appointment(s)/Referral(s): [facility] [Primary Care Provider] - 11/09/22 11:00 am Jaun Chaudhari MD [STAFF PHYSICIAN] - 11/16/22 4:15 pm Patient Instructions/Handouts: Heart Failure (DC), How to Stop Smoking (DC), Abuse of Alcohol (DC) Activity/Diet/Wound Care/Special Instructions: Activity: As tolerated. Take breaks as needed. Diet: Heart healthy and carb consistent diet. Avoid salts, or foods with hidden salts such as canned or boxed foods and frozen dinners. Extra salt makes your heart work harder and traps the fluid in your body for longer. Special Instructions: Take all of your medications as directed and remember to keep all of your doctor's appointments and follow-up as needed. Thank you for allowing us to participate in your care, it was truly a pleasure having you for our patient!!! Discharge/Stand Alone Forms: AA Meetings [facility], Community Resources, Outpatient Counseling, Personal Plating Tank Operator Discharge Disposition: HOME WITH HOME HEALTH SERVICES
== END 2022-10-30 12:24 | disposition home health service (06) | DRG 291 ==
LOC: EC 09:23 → 3SCARD 12:29
PROVIDERS: ADMIT Student in an Organized Health Care Education/Training Program; ATTEND Student in an Organized Health Care Education/Training Program
DX: I11.0 Hypertensive heart disease with heart failure (principal); I50.23 Acute on chronic systolic (congestive) heart failure; E87.1 Hypo-osmolality and hyponatremia; E87.3 Alkalosis; I25.5 Ischemic cardiomyopathy; I25.82 Chronic total occlusion of coronary artery; I27.20 Pulmonary hypertension, unspecified; I08.1 Rheumatic disorders of both mitral and tricuspid valves; I25.10 Atherosclerotic heart disease of native coronary artery without angina pectoris; I87.2 Venous insufficiency (chronic) (peripheral); I87.329 Chronic venous hypertension (idiopathic) with inflammation of unspecified lower extremity; L97.521 Non-pressure chronic ulcer of other part of left foot limited to breakdown of skin; J44.9 Chronic obstructive pulmonary disease, unspecified; M41.9 Scoliosis, unspecified; F10.11 Alcohol abuse, in remission; G89.29 Other chronic pain; R74.01 Elevation of levels of liver transaminase levels; F31.9 Bipolar disorder, unspecified; E87.8 Other disorders of electrolyte and fluid balance, not elsewhere classified; E83.42 Hypomagnesemia; D50.9 Iron deficiency anemia, unspecified; I25.2 Old myocardial infarction; F41.9 Anxiety disorder, unspecified; R77.8 Other specified abnormalities of plasma proteins; K58.9 Irritable bowel syndrome, unspecified; E87.6 Hypokalemia; F17.210 Nicotine dependence, cigarettes, uncomplicated; Z71.3 Dietary counseling and surveillance; Z28.21 Immunization not carried out because of patient refusal; F43.10 Post-traumatic stress disorder, unspecified; Z81.1 Family history of alcohol abuse and dependence; Z87.442 Personal history of urinary calculi; Z98.84 Bariatric surgery status; Z65.3 Problems related to other legal circumstances; Z79.899 Other long term (current) drug therapy; Z82.49 Family history of ischemic heart disease and other diseases of the circulatory system; Z95.5 Presence of coronary angioplasty implant and graft
CPT/HCPCS: 36415; 71046; 71275; 80048; 80053; 80061; 83735; 83880; 84484; 85025; 85027; 85610; 85730; 93005; 93306; 94640; 96365; 96366; 99291

== ENCOUNTER 2022-11-11 17:09 | Inpatient (IN) | payer MEDICARE, OTHER ==
[2022-11-11] MEDS ORDERED: IPRATROPIUM-ALBUTEROL 3 ML NEB INHALATION STA (17:27)
[2022-11-11] MEDS ORDERED: ASPIRIN 81 MG PO STA (17:27)
[2022-11-11] MEDS ORDERED: DILTIAZEM DRIP BOLUS FROM BAG 1 MG SOLN IV ONE (17:35)
[2022-11-11] MEDS ORDERED: DILTIAZEM 125 MG in SODIUM CHLORIDE 0.9% 100 ML IV SCH (17:45)
--- NOTE | 2022-11-11 17:47 | ED ---
Chest Pain HPI - General Chief Complaint: Chest Pain Stated Complaint: Chest Pain Time Seen by Provider: 11/11/22 17:17 Source: patient, EMS, RN notes reviewed Mode of arrival: EMS Limitations: no limitations - History of Present Illness Initial Comments: 57-year-old male with a history of atrial fibrillation and history of alcoholism history depression who is brought in today because of chest pain and shortness of breath. He states he feels like his A. fib is acting up he also states she's been very depressed does not want live anymore and been drinking a lot of alcohol for the past 5 days he denies any fevers chills or sweats he just desponded is given up on life in addition to these medical issues. Currently no chest pain report does feel somewhat short of breath. He also denies any overt suicidal thoughts or ideation but is very desponded depressed wants to . No other current complaints or modifying factors he does admit to alcohol he does admit to still smoking. No street drugs reported MD Complaint: chest pain, other - Related Data Home Medications Medication Instructions Recorded Confirmed Aspirin EC [Ecotrin Low Dose] 81 mg PO HS 03/30/21 11/11/22 Atorvastatin [Lipitor] 80 mg PO HS 03/30/21 11/11/22 DULoxetine HCL [Cymbalta] 60 mg PO HS 04/12/21 11/11/22 Metoprolol Tartrate [Lopressor] 25 mg PO BID 04/12/21 11/11/22 Albuterol Nebulized [Ventolin 2.5 mg INHALATION RT-Q8H PRN 10/25/22 11/11/22 Nebulized] lisinopriL [Zestril] 2.5 mg PO DAILY 10/25/22 11/11/22 Previous Rx's Medication Instructions Recorded Furosemide [Lasix] 40 mg PO DAILY 30 Days #30 tab 10/30/22 Allergies Allergy/AdvReac Type Severity Reaction Status Date / Time No Known Allergies Allergy Verified 11/11/22 18:30 Review of Systems ROS Statement: Those systems with pertinent positive or pertinent negative responses have been documented in the HPI. ROS Other: All systems not noted in ROS Statement are negative. Past Medical History Past Medical History: COPD, GERD/Reflux, GI Bleed, Hypertension, Myocardial Infarction (PR), Pneumonia, Skin Disorder Additional Past Medical History / Comment(s): ETOH abuse with delirium tremors, lower GI bleed, IBS, chronic iron deficiency anemia, hypomagnesemia, hyperbilirubinemia, anorexia, vertigo, nephrolithiasis-passed stone on his own, chronic low back/cervical pain, DDD, kyphosis, scoliosis, coccyx pressure ulcer pt states is mostly healed. Dry and itchy skin back in high school. 2 heart attacks, one in December (2020) second in February (2020). Last Myocardial Infarction Date:: February 2021 History of Any Multi-Drug Resistant Organisms: None Reported Past Surgical History: Bariatric Surgery, Heart Catheterization With Stent, Hernia Repair, Orthopedic Surgery, Tonsillectomy Additional Past Surgical History / Comment(s): Right inner Forearm-metal plate, gastric bypass, incisional hernia surgery x2, EGDs, colonoscopies. 2 Stents placed in December 2020. Past Anesthesia/Blood Transfusion Reactions: No Reported Reaction Date of Last Stent Placement:: 2020 Past Psychological History: Anxiety, Bipolar, Depression, PTSD Smoking Status: Current every day smoker Past Alcohol Use History: Abuse Past Drug Use History: None Reported - Past Family History Mother History Unknown: Yes Family Medical History: Hypertension Additional Family Medical History / Comment(s): Lupus. Mother is living. Father History Unknown: Yes Family Medical History: Liver Disease Additional Family Medical History / Comment(s): ETOH abuse. of cirrhosis complications. General Exam - General Exam Comments Initial Comments: This is a well-developed thin appearing male was awake alert oriented 4 he does have the smell of alcohol conjoiners on his breath Limitations: no limitations General appearance: alert, anxious Head exam: Present: atraumatic, normocephalic, normal inspection Eye exam: Present: normal appearance, PERRL, EOMI. Absent: scleral icterus, conjunctival injection, periorbital swelling ENT exam: Present: mucous membranes dry Neck exam: Present: normal inspection, full ROM, other. Absent: tenderness, meningismus, lymphadenopathy Respiratory exam: Present: wheezes, decreased breath sounds (No stridor JVD or bruits). Absent: respiratory distress, rales, rhonchi, stridor Cardiovascular Exam: Present: regular rate, normal rhythm, normal heart sounds. Absent: systolic murmur, diastolic murmur, rubs, gallop, clicks GI/Abdominal exam: Present: soft, normal bowel sounds. Absent: distended, tenderness, guarding, rebound, rigid, bruit, pulsatile mass Extremities exam: Present: normal inspection, full ROM, normal capillary refill. Absent: tenderness, pedal edema, joint swelling, calf tenderness Back exam: Present: normal inspection Neurological exam: Present: alert, oriented X3, CN II-XII intact Psychiatric exam: Present: depressed, flat affect Skin exam: Present: warm, dry, intact, normal color. Absent: rash Course Vital Signs 11/11/22 11/11/22 11/11/22 17:12 18:19 18:23 Temperature 98.7 F Pulse Rate 77 124 H 124 H Respiratory 16 16 Rate Blood Pressure 122/104 93/58 O2 Sat by Pulse 98 93 L Oximetry 11/11/22 11/11/22 18:31 18:33 Temperature Pulse Rate 111 H 126 H Respiratory 18 Rate Blood Pressure 87/61 O2 Sat by Pulse 96 Oximetry - Reevaluation(s) Reevaluation #1: 11/11/22 19:41 The patient did require fluid bolus in addition IV Cardizem to the A. fib RVR to dehydration. Chest Pain MDM - MDM Patient did receive IV fluids in addition IV Cardizem the heart rate has improved blood pressure did drop with did start recover after IV hydration. Patient's alcohol level is 160 at the time of testing. He states he is feeling much better though after the treatment that was rendered. I did discuss the case with Dr. Segovia patient be admitted with cardiology consultation other than discomfort from lying on ER stretcher he has no chest pain reported this time. Was pt. sent in by a medical professional or institution (, PA, RN EMERGENCY, urgent care, hospital, or [facility]...) When possible be specific @ -[Paramedics upon arrival] Did you speak to anyone other than the patient for history (EMS, parent, family, police, friend...)? What history was obtained from this source @ -[No] Did you review nursing and triage notes (agree or disagree)? Why? @ -[I reviewed and agree with nursing and triage notes] Were old charts reviewed (outside hosp., previous admission, EMS record, old EKG, old radiological studies, urgent care reports/EKG's, [facility] records)? Report findings @ -[Previous admission old charts were reviewed] Differential Diagnosis (chest pain, altered mental status, abdominal pain women, abdominal pain men, vaginal bleeding, weakness, fever, dyspnea, syncope, headache, dizziness, GI bleed, back pain, seizure, CVA, palpatations, mental health, musculoskeletal)? @ -[Chest pain, rapid atrial fibrillation, depression, alcohol intoxication] EKG interpreted by me (3pts min.). @ -[As above] X-rays interpreted by me (1pt min.). @ -[As above x-ray showed no definitive evidence of CHF there was evidence of super position of bowel between the liver and diaphragm.] CT interpreted by me (1pt min.). @ -[None done] U/S interpreted by me (1pt. min.). @ -[None done] What testing was considered but not performed or refused? (CT, X-rays, U/S, labs)? Why? @ -[None] What meds were considered but not given or refused? Why? @ -[None] Did you discuss the management of the patient with other professionals (professionals i.e. , PA, RN EMERGENCY, lab, RT, psych nurse, social studies teacher, block hacker, teacher, sheriff officer, case picker)? Give summary @ -[Dr. Segovia] Was smoking cessation discussed for >3mins.? @ -[Patient currently has no desire to stop smoking] Was critical care preformed (if so, how long)? @ -[45 minutes] Were there social determinants of health that impacted care today? How? (Homelessness, low income, unemployed, alcoholism, drug addiction, transportation, low edu. Level, literacy, decrease access to med. care, fpc, rehab)? @ -[Alcoholism, low income, depression] Was there de-escalation of care discussed even if they declined (Discuss DNR or withdrawal of care, Hospice)? DNR status @ -[No] What co-morbidities impacted this encounter? (DM, HTN, Smoking, COPD, CAD, Cancer, CVA, ARF, Chemo, Hep., AIDS, mental health diagnosis, sleep apnea, morbid obesity)? @ -[Atrial fibrillation COPD hypertension and coronary artery disease bipolar disorder Was patient admitted / discharged? Hospital course, mention meds given and route, prescriptions, significant lab abnormalities, going to OR and other pertinent info. @ -[hospital course] patient was admitted to the hospital he did have A. fib with RVR also demonstrated hypotensive episode dehydration also depression with an attempt to harm himself drinking a lot of alcohol. Cardiology will be consulted. Undiagnosed new problem with uncertain prognosis? @ -[Non-ST elevation myocardial infarction] Drug Therapy requiring intensive monitoring for toxicity (Heparin, Nitro, Insulin, Cardizem)? @ -[No] Were any procedures done? @ -[No] Diagnosis/symptom? @ -[Rapid atrial fibrillation, non-ST elevation myocardial infarction, COPD exacerbation, CHF, hypotensive episode, dehydration, depression with suicidal ideation] Acute, or Chronic, or Acute on Chronic? @ -[default] Uncomplicated (without systemic symptoms) or Complicated (systemic symptoms)? @ -[Complicated] Side effects of treatment? @ -[Hypotensive episode] Exacerbation, Progression, or Severe Exacerbation? @ -[No] Poses a threat to life or bodily function? How? (Chest pain, USA, PR, pneumonia, PE, COPD, DKA, ARF, appy, cholecystitis, CVA, Diverticulitis, Homicidal, Suicidal, threat to staff... and all critical care pts) @ -[Non-ST elevation myocardial infarction, rapid atrial fibrillation, alcohol intoxication, depression] Critical Care Time Critical Care Time: Yes Total Critical Care Time: 45 Disposition Clinical Impression: Acute non-ST elevation myocardial infarction (NSTEMI), CHF (congestive heart failure), Hypotensive episode, Rapid atrial fibrillation, Alcohol intoxication, Depression, Suicidal ideation, Hypokalemia, Dehydration Disposition: ADMITTED IP TO THIS [facility] Condition: Fair Referrals: [facility] [Primary Care Provider] - 1-2 days Decision Date: 11/11/22 Decision Time: 19:15
[2022-11-11 17:48] LABS: Anisocytosis Moderate; Basophils % (A) 0 %; Eosinophils # (A) 0.1 k/uL (0-0.7); Eosinophils % (A) 1 %; HCT 34.4 % (39.0-53.0); HGB 10.6 gm/dL (13.0-17.5); Hypochromasia Marked; Lymphocytes # (A) 0.8 k/uL (1.0-4.8); Lymphocytes % (A) 12 %; MCH 25.5 pg (25.0-35.0); MCHC 30.8 g/dL (31.0-37.0); MCV 82.8 fL (80.0-100.0); Mean Platelet Volume 8.2; Microcytosis Slight; Monocytes # (A) 0.3 k/uL (0-1.0); Monocytes % (A) 4 %; Neutrophils # (A) 5.2 k/uL (1.3-7.7); Neutrophils % (A) 80 %; Platelet Count 184 k/uL (150-450); Poikilocytosis Slight; RBC 4.15 m/uL (4.30-5.90); RDW 21.5 % (11.5-15.5); WBC 6.5 k/uL (3.8-10.6)
[2022-11-11 17:59] LABS: Potassium 3.3 mmol/L (3.5-5.1)
--- NOTE | 2022-11-11 17:59 | XR ---
EXAMINATION TYPE: XR chest 2V DATE OF EXAM: 11/11/2022 COMPARISON: 10/25/2022 HISTORY: Shortness of breath TECHNIQUE: Frontal and lateral views of the chest are obtained. FINDINGS: Scattered senescent parenchymal changes noted. Hyperinflation compatible with COPD. No evidence for infiltrate. No evidence for atelectasis. Heart size is stable. Mediastinal structures are stable and grossly unremarkable. No evidence for hilar prominence. There is colonic interposition noted underneath the right hemidiaph ragm. Distended small and large bowel suspected. Degenerative changes dorsal spine. IMPRESSION: 1. No evidence for acute pulmonary disease.
[2022-11-11 18:00] LABS: ALT 27 U/L (4-49); AST 51 U/L (17-59); African American GFR (CKD) >90 (>60 ml/min/1.73 sqM); Albumin 3.7 g/dL (3.5-5.0); Alkaline Phosphatase 86 U/L (38-126); Anion Gap 13 mmol/L; Blood Urea Nitrogen 13 mg/dL (9-20); Calcium 8.6 mg/dL (8.4-10.2); Carbon Dioxide 25 mmol/L (22-30); Chloride 102 mmol/L (98-107); Glucose 121 mg/dL (74-99); Lipase 223 U/L (23-300); Magnesium 1.7 mg/dL (1.6-2.3); Non-African American GFR(CKD) >90 (>60 ml/min/1.73 sqM); Sodium 140 mmol/L (137-145); Total Bilirubin 0.8 mg/dL (0.2-1.3)
[2022-11-11] MEDS ORDERED: SODIUM CHLORIDE 0.9% 500 ML 500 ML IV ONE ×2 (18:20→18:35)
[2022-11-11 18:27] LABS: Alcohol 160 mg/dL
[2022-11-11] MEDS ORDERED: POTASSIUM CHLORIDE 10 MEQ in WATER FOR INJECTION 1 100ML.BAG IVPB STA (18:41)
[2022-11-11] MEDS ORDERED: HEPARIN SODIUM 1,000 UN/ML (10ML VL) IV PRN (18:41)
[2022-11-11] MEDS ORDERED: HEPARIN SODIUM 1,000 UN/ML (10ML VL) IV ONE (18:41)
[2022-11-11] MEDS ORDERED: MAGNESIUM SULFATE-D5W PMX 1 GM in DEXTROSE/WATER 1 100ML.BAG IVPB ONE (18:41)
[2022-11-11] MEDS ORDERED: POTASSIUM CHLORIDE ER 20 MEQ TAB.ER PO STA (18:41)
[2022-11-11 19:18] LABS: Anisocytosis Moderate; Basophils % (A) 0 %; Eosinophils % (A) 1 %; HCT 32.5 % (39.0-53.0); HGB 9.7 gm/dL (13.0-17.5); Hypochromasia Marked; Lymphocytes % (A) 16 %; MCH 25.1 pg (25.0-35.0); MCHC 29.8 g/dL (31.0-37.0); MCV 84.1 fL (80.0-100.0); Mean Platelet Volume 7.7; Microcytosis Slight; Monocytes # (A) 0.2 k/uL (0-1.0); Monocytes % (A) 4 %; Neutrophils # (A) 4.5 k/uL (1.3-7.7); Neutrophils % (A) 76 %; Platelet Count 213 k/uL (150-450); Poikilocytosis Slight; RBC 3.87 m/uL (4.30-5.90); RDW 21.4 % (11.5-15.5); WBC 5.9 k/uL (3.8-10.6)
[2022-11-11] MEDS ORDERED: SODIUM CHLORIDE 0.9% 1,000 ML IV STA (19:31)
[2022-11-11] MEDS ORDERED: fentaNYL (PF) 50 MCG/ML 2 ML AMP IV STA (19:36)
[2022-11-11] MEDS ORDERED: NITROGLYCERIN SL TABS 0.4 MG TAB SUBLINGUAL PRN (19:48)
[2022-11-11] MEDS: HEPARIN SOD,PORK IN 0.45% NACL 25,000 UNIT in 0.45% NACL 1 250ML.BAG IV SCH (20:03)
[2022-11-11 20:27] LABS: Partial Thromboplastin Time 23.3 sec (22.0-30.0); Prothrombin Time 10.6 sec (9.0-12.0)
[2022-11-11] MEDS: DULoxetine HCL 60 MG CAPSULE.DR PO SCH (21:45)
[2022-11-11] MEDS: ATORVASTATIN 80 MG TAB PO SCH (21:45)
[2022-11-11] MEDS: METOPROLOL TARTRATE 25 MG TAB PO SCH (21:45)
[2022-11-11] MEDS ORDERED: LORazepam 2 MG/ML INJ IV PRN ×2 (22:55)
[2022-11-11] MEDS ORDERED: HYDROcodone/APAP 5-325MG 1 EACH TAB PO PRN (22:57)
[2022-11-11] MEDS ORDERED: ACETAMINOPHEN TAB 325 MG TAB PO PRN (22:57)
--- NOTE | 2022-11-11 23:10 | P.HPIM ---
History of Present Illness H&P Date: 11/11/22 Chief Complaint: heart racing , SOB 57 year old male with CAD, chronic systolic chf LVEF 30%, alcohol dependance, depression patient coming in due to worsening SOB, with minimal activity which has progressed to feeling SOB at rest, denies any leg swelling, or chest pain , but admits to heart racing. he denies fever, chills, nausea , vomiting, or GI bleeding . he admits to heavy alcohol consumption, as he feels hopeless with suicidal thoughts off/on. he does not have a plan , but was thinking of keep drinking hoping to sleep and not wake up. he reports frequent falls at home, and when he was in alf, he was released about 2 weeks ago. he denies passing out, and claims usually feels weak and falls. he denies any recent traveling , or history of blood clots, he was recently hospitalized here and discharged 10 days ago where he was treated for acute CHF exacerbation he denies illicit drugs , but admits to smoking and heavy alcohol Review of Systems Pertinent positives as noted in HPI. All other systems were reviewed and are negative Past Medical History Past Medical History: COPD, GERD/Reflux, GI Bleed, Hypertension, Myocardial Infarction (PR), Pneumonia, Skin Disorder Additional Past Medical History / Comment(s): ETOH abuse with delirium tremors, lower GI bleed, IBS, chronic iron deficiency anemia, hypomagnesemia, hyperbilirubinemia, anorexia, vertigo, nephrolithiasis-passed stone on his own, chronic low back/cervical pain, DDD, kyphosis, scoliosis, coccyx pressure ulcer pt states is mostly healed. Dry and itchy skin back in high school. 2 heart attacks, one in December (2020) second in February (2020). Last Myocardial Infarction Date:: February 2021 History of Any Multi-Drug Resistant Organisms: None Reported Past Surgical History: Bariatric Surgery, Heart Catheterization With Stent, Hernia Repair, Orthopedic Surgery, Tonsillectomy Additional Past Surgical History / Comment(s): Right inner Forearm-metal plate, gastric bypass, incisional hernia surgery x2, EGDs, colonoscopies. 2 Stents placed in December 2020. Past Anesthesia/Blood Transfusion Reactions: No Reported Reaction Date of Last Stent Placement:: 2020 Past Psychological History: Anxiety, Bipolar, Depression, PTSD Additional Psychological History / Comment(s): Pt resides in a friends home where he rents a room. He now has a car and drives. Pt states his depression is stable at this time, no thoughts or plans of suicide. He has had multiple mental health unit admissions. He has ETOH abuse. He goes to [facility] [address] [address] Smoking Status: Current every day smoker Past Alcohol Use History: Abuse Additional Past Alcohol Use History / Comment(s): Pt started smokingin 1979 and is a 1.5 -2ppd smoker. He drinks on average 12 beers /day 4-5 days a week or 1- 2 fifths per day Past Drug Use History: None Reported Additional Drug Use History / Comment(s): Pt still uses marijuana on occasion, but quit all other drugs 4-5 years ago. - Past Family History Mother History Unknown: Yes Family Medical History: Hypertension Additional Family Medical History / Comment(s): Lupus. Mother is living. Father History Unknown: Yes Family Medical History: Liver Disease Additional Family Medical History / Comment(s): ETOH abuse. of cirrhosis complications. Medications and Allergies Home Medications Medication Instructions Recorded Confirmed Type Aspirin EC [Ecotrin Low Dose] 81 mg PO HS 03/30/21 11/11/22 History Atorvastatin [Lipitor] 80 mg PO HS 03/30/21 11/11/22 History DULoxetine HCL [Cymbalta] 60 mg PO HS 04/12/21 11/11/22 History Metoprolol Tartrate [Lopressor] 25 mg PO BID 04/12/21 11/11/22 History Albuterol Nebulized [Ventolin 2.5 mg INHALATION RT-Q8H PRN 10/25/22 11/11/22 History Nebulized] lisinopriL [Zestril] 2.5 mg PO DAILY 10/25/22 11/11/22 History Furosemide [Lasix] 40 mg PO DAILY 30 Days #30 tab 10/30/22 11/11/22 Rx Allergies Allergy/AdvReac Type Severity Reaction Status Date / Time No Known Allergies Allergy Verified 11/11/22 18:30 Physical Exam Vitals: Vital Signs Temp Pulse Pulse Resp BP BP Pulse Ox 11/11/22 21:20 105 H 18 94/58 96 11/11/22 20:37 104/65 11/11/22 20:30 114 H 15 93/81 96 11/11/22 18:33 126 H 18 87/61 96 11/11/22 18:31 111 H 11/11/22 18:23 124 H 11/11/22 18:19 124 H 16 93/58 93 L 11/11/22 17:12 98.7 F 77 16 122/104 98 Intake and Output 11/11/22 11/11/22 11/11/22 06:59 14:59 22:59 Intake Total 22.417 Balance 22.417 Intake: Intake, IV Titration 22.417 Amount Diltiazem 125 mg In 22.417 Sodium Chloride 0.9% 100 ml @ 5 MG/HR 5 mls/hr IV .Q24H [facility] Rx#:[id number] Other: Weight 72.121 kg Constitutional: No acute distress, conversant Eyes: Anicteric sclerae, moist conjunctiva, Pupils equal round reactive to light ENMT: NC/AT Oropharynx clear, no erythema, or exudates Neck: Supple, no masses, or JVD No carotid bruits No thyromegaly Lungs: Clear to auscultation Clear to percussion Normal respiratory effort, no accessory muscle use Cardiovascular: Heart irregular No murmurs, gallops, or rubs No peripheral edema Abdominal: Soft Nontender, no guarding, rebound or rigidity Abdomen moving with respiration Normoactive bowel sounds No hepatomegaly, No splenomegaly No palpable mass No abdominal wall hernia noted Skin: there is abrasions and small wound over his mid back, no draining wound. he also has scabs over the dorsum of his left foot. Extremities: No digital cyanosis No clubbing Pedal pulses intact and symmetrical Radial pulses intact and symmetrical No calf tenderness Psychiatric: Alert and oriented to person, place and time fair judgment Neuro Muscles Strength 5/5 in all 4 extremities Sensation to light touch grossly present throughout Cranial nerves II-XII grossly intact Lymphatics: no palpable cervical or supraclavicular lymph nodes Results CBC & Chem 7: 11/11/22 19:00 11/11/22 17:32 Labs: Abnormal Lab Results - Last 24 Hours (Table) 11/11/22 11/11/22 11/11/22 Range/Units 17:32 17:32 17:32 RBC 4.15 L (4.30-5.90) m/uL Hgb 10.6 L (13.0-17.5) gm/dL Hct 34.4 L (39.0-53.0) % MCHC 30.8 L (31.0-37.0) g/dL RDW 21.5 H (11.5-15.5) % Lymphocytes # 0.8 L (1.0-4.8) k/uL Potassium 3.3 L (3.5-5.1) mmol/L Creatinine 0.52 L (0.66-1.25) mg/dL Glucose 121 H (74-99) mg/dL Troponin I 0.455 H* (0.000-0.034) ng/mL 11/11/22 11/11/22 Range/Units 19:00 20:04 RBC 3.87 L (4.30-5.90) m/uL Hgb 9.7 L (13.0-17.5) gm/dL Hct 32.5 L (39.0-53.0) % MCHC 29.8 L (31.0-37.0) g/dL RDW 21.4 H (11.5-15.5) % Lymphocytes # (1.0-4.8) k/uL Potassium (3.5-5.1) mmol/L Creatinine (0.66-1.25) mg/dL Glucose (74-99) mg/dL Troponin I 0.493 H* (0.000-0.034) ng/mL Thrombosis Risk Factor Assmnt - Choose All That Apply Any of the Below Risk Factors Present?: Yes Each Factor Represents 1 point: Abnormal pulmonary function (COPD), Age 41-60 years, Heart failure (<1month), Medical pt on bed rest Other Risk Factors: No Other congenital or acquired thrombophilia - If yes, enter type in comment: No Thrombosis Risk Factor Assessment Total Risk Factor Score: 4 Thrombosis Risk Factor Assessment Level: Moderate Risk Assessment and Plan Assessment: 57 year old male with Systlic CHF LVEF 30% , h/o CAD, coming in with tachycardia, I discussed the case with ED doc, he is found to have Afib with RVR, I accepted the admission for heart rate control and elevated trops for further cardiac workup, patient also reported suicidal ideation. with anticipated length of stay > 2 midnights atrial fibrillation with rapid vent response , patient not on anticoagulation at home chronic systolic CHF with LVED 30% , compensated elevated trops , suspected to be secondary to afib with RVR h/o CAD plan security monitor cardizem drip to control heart rate heparin drip for afib protocol cardiology consult aspirin 325 mg po daily atorvastatin 80 mg po daily continue with metoprolol continue with po lasix trend trops hypokalemia replace and follow up levels alcohol dependance and abuse monitor for alcohol withdrawal benzo per ciwa thiamin daily counseled to quit alcohol suicidal ideation , depression suicide precautions psych consult COPD , compensated resume home inhalers supplemental oxygen as needed counseled toquit smoking NRT offered full code DVT PPX on heparin drip for afib
[2022-11-11] MEDS: LORazepam 2 MG/ML INJ IV PRN (23:40)
[2022-11-11 23:58] LABS: Amphetamine Screen,Urine Not Detected (NotDetected); Cocaine Screen,Urine Not Detected (NotDetected); Opiate Screen,Urine Not Detected (NotDetected); Phencyclidine Screen,Urine Not Detected (NotDetected); Urn Cannabinoid Scrn Not Detected (NotDetected)
[2022-11-11 23:59] LABS: Barbiturate Screen,Urine Not Detected (NotDetected); Benzodiazepines Screen,Urine Not Detected (NotDetected); Methadone Screen, Urine Not Detected (NotDetected); Oxycodone Screen, Urine Not Detected (NotDetected); Tricyclic Antidepressant,Urine Not Detected (NotDetected)
[2022-11-12 08:10] LABS: Anisocytosis Moderate; Basophils % (A) 0 %; Eosinophils # (A) 0.1 k/uL (0-0.7); Eosinophils % (A) 1 %; HCT 31.6 % (39.0-53.0); HGB 9.6 gm/dL (13.0-17.5); Hypochromasia Marked; Lymphocytes # (A) 1.1 k/uL (1.0-4.8); Lymphocytes % (A) 18 %; MCH 25.5 pg (25.0-35.0); MCHC 30.3 g/dL (31.0-37.0); MCV 84.1 fL (80.0-100.0); Mean Platelet Volume 8.8; Microcytosis Slight; Monocytes # (A) 0.3 k/uL (0-1.0); Monocytes % (A) 5 %; Neutrophils # (A) 4.6 k/uL (1.3-7.7); Neutrophils % (A) 72 %; Platelet Count 190 k/uL (150-450); Poikilocytosis Slight; RBC 3.75 m/uL (4.30-5.90); RDW 21.8 % (11.5-15.5); WBC 6.3 k/uL (3.8-10.6)
[2022-11-12 08:58] LABS: Partial Thromboplastin Time 41.2 sec (22.0-30.0); Prothrombin Time 10.8 sec (9.0-12.0)
[2022-11-12] MEDS ORDERED: FUROSEMIDE 40 MG TAB PO SCH (09:00)
[2022-11-12] MEDS ORDERED: ASPIRIN 325 MG TAB PO SCH (09:00)
[2022-11-12] MEDS: THIAMINE 100 MG TAB PO SCH (09:15)
[2022-11-12] MEDS: METOPROLOL TARTRATE 25 MG TAB PO SCH (09:15)
--- NOTE | 2022-11-12 09:42 | P.CRDCN ---
History of Present Illness Consult date: 11/12/22 History of present illness: History of Present Illness: The patient is a 57-year-old male with a known history of coronary disease, ischemic cardiomyopathy, paroxysmal atrial fibrillation who presents to the emergency room with symptoms of progressive dyspnea, fatigue and chest discomfort. And fortunately the patient has a history of heavy alcohol intake and has been drinking recently. He was noted to be in atrial fibrillation on presentation which has been paroxysmal in the past. He has been complaining of chest discomfort at times exertional. His troponin is mildly elevated but has been elevated in the past. He had some peripheral edema that resolved but recent PND or orthopnea. He was in half-way until early this month. He has not been always compliant with his medication. He presented in December 2020 with an acute myocardial infarction. Underwent cardiac catheterization that showed total occlusion of the mid LAD and proximal RCA with collaterals from the left system to the RCA and mild to moderate disease in the left circumflex. He underwent stenting of the mid LAD and was found to have chronic occlusion of the distal LAD. His most recent echocardiogram in October showed an ejection fraction of 30-35% with moderate mitral and [id number] tricuspid regurgitation. He was admitted earlier this month with exacerbation of CHF with reduced ejection fraction. On presentation he was in atrial fibrillation with rapid ventricular response he has been maintained on IV Cardizem and IV heparin. His NT proBNP was 7520. His troponin mildly elevated but predominantly flat. He has a history of chronic tobacco use. Medications: Zestril 2.5 mg daily, Lopressor 25 mg twice a day, Lasix 40 mg daily, Cymbalta, aspirin, Lipitor 80 mg daily Review of Systems: Respiratory: He has a history of chronic tobacco use and chronic dyspnea on exertion GI: No nausea or vomiting . No history of peptic ulcer disease. No recent GI bleed. : No hematuria or dysuria. Nervous System: No stroke or seizure. Physical Examination: 57-year-old male, alert and oriented appears to be older than stated age ,Blood pressure 94/50, Heart rate 90 Head: Normocephalic. Eyes: Sclerae nonicteric. Neck: Good carotid upstroke, no bruit, no jugular venous distention. Lungs: Decreased breath sounds bilaterally Heart: Irregular rate and rhythm, S1-S2, no S3, no rub. Systolic ejection murmur. Abdomen: Soft nontender, positive bowel sounds no organomegaly. Extremities: No edema, intact distal pulses. Labs: WBC 6.3, hemoglobin 9.6, potassium 3.3, BUN 13, creatinine 0.52 . NT proBNP 7520. Troponin 0.455, 0.493, 0.643. Alcohol level 160, chest x-ray with no acute infiltrate EKG: Atrial fibrillation with rate of [address]-T wave changes Impression: 1. Symptoms of progressive dyspnea was combination of CHF and probable COPD 2. Atrial fibrillation, paroxysmal with rapid ventricular response. His score is 2. 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 Troponin elevation appears to be chronic and probably represent type II myocardial infarction 4. History of stenting of the LAD and chronic occlusion of the RCA 5. Severe ischemic cardiac myopathy 6. Chronic alcohol intake 7. Chronic tobacco use 8. Anemia 9. History of depression and suicidal ideation Plan: 1. Stop IV Cardizem 2. Continue IV heparin for now 3. Continue beta deepa, statin and diuretics 4. Add Farxiga 5. Depending on the blood pressure adjust the dose of JUAN inhibitor 6. Follow renal functions 7. Alcohol and tobacco cessation 8. Depending on his progress further recommendations will be made, prognosis is guarded in view of history 9. Thank you for this consult we will follow with you. Past Medical History Past Medical History: COPD, GERD/Reflux, GI Bleed, Hypertension, Myocardial Infarction ([place]), Pneumonia, Skin Disorder Additional Past Medical History / Comment(s): ETOH abuse with delirium tremors, lower GI bleed, IBS, chronic iron deficiency anemia, hypomagnesemia, hyperbilirubinemia, anorexia, vertigo, nephrolithiasis-passed stone on his own, chronic low back/cervical pain, DDD, kyphosis, scoliosis, coccyx pressure ulcer pt states is mostly healed. Dry and itchy skin back in high school. 2 heart attacks, one in December (2020) second in February (2020). Last Myocardial Infarction Date:: February 2021 History of Any Multi-Drug Resistant Organisms: None Reported Past Surgical History: Bariatric Surgery, Heart Catheterization With Stent, Hernia Repair, Orthopedic Surgery, Tonsillectomy Additional Past Surgical History / Comment(s): Right inner Forearm-metal plate, gastric bypass, incisional hernia surgery x2, EGDs, colonoscopies. 2 Stents placed in December 2020. Past Anesthesia/Blood Transfusion Reactions: No Reported Reaction Date of Last Stent Placement:: 2020 Past Psychological History: Anxiety, Bipolar, Depression, PTSD Additional Psychological History / Comment(s): Pt resides in a friends home where he rents a room. He now has a car and drives. Pt states his depression is stable at this time, no thoughts or plans of suicide. He has had multiple mental health unit admissions. He has ETOH abuse. He goes to [facility]. Smoking Status: Current every day smoker Past Alcohol Use History: Abuse Additional Past Alcohol Use History / Comment(s): Pt started smokingin 1979 and is a 1.5 -2ppd smoker. He drinks on average 12 beers /day 4-5 days a week or 1- 2 fifths per day Past Drug Use History: None Reported Additional Drug Use History / Comment(s): Pt still uses marijuana on occasion, but quit all other drugs 4-5 years ago. - Past Family History Mother History Unknown: Yes Family Medical History: Hypertension Additional Family Medical History / Comment(s): Lupus. Mother is living. Father History Unknown: Yes Family Medical History: Liver Disease Additional Family Medical History / Comment(s): ETOH abuse. of cirrhosis complications. Medications and Allergies Home Medications Medication Instructions Recorded Confirmed Type Aspirin EC [Ecotrin Low Dose] 81 mg PO HS 03/30/21 11/11/22 History Atorvastatin [Lipitor] 80 mg PO HS 03/30/21 11/11/22 History DULoxetine HCL [Cymbalta] 60 mg PO HS 04/12/21 11/11/22 History Metoprolol Tartrate [Lopressor] 25 mg PO BID 04/12/21 11/11/22 History Albuterol Nebulized [Ventolin 2.5 mg INHALATION RT-Q8H PRN 10/25/22 11/11/22 H istory Nebulized] lisinopriL [Zestril] 2.5 mg PO DAILY 10/25/22 11/11/22 History Furosemide [Lasix] 40 mg PO DAILY 30 Days #30 tab 10/30/22 11/11/22 Rx Allergies Allergy/AdvReac Type Severity Reaction Status Date / Time No Known Allergies Allergy Verified 11/11/22 18:30 Physical Exam Vitals: Vital Signs Temp Pulse Pulse Resp BP BP Pulse Ox 11/12/22 09:14 111 H 18 90/52 97 11/12/22 04:00 110 H 18 91/64 96 11/12/22 02:00 83 18 11/12/22 00:00 83 16 92/58 98 11/11/22 21:20 105 H 18 94/58 96 11/11/22 20:37 104/65 11/11/22 20:30 114 H 15 93/81 96 11/11/22 18:33 126 H 18 87/61 96 11/11/22 18:31 111 H 11/11/22 18:23 124 H 11/11/22 18:19 124 H 16 93/58 93 L 11/11/22 17:12 98.7 F 77 16 122/104 98 Intake and Output 11/11/22 11/12/22 11/12/22 22:59 06:59 14:59 Intake Total 22.417 57.844 Balance 22.417 57.844 Intake: Intake, IV Titration 22.417 57.844 Amount Diltiazem 125 mg In 22.417 Sodium Chloride 0.9% 100 ml @ 5 MG/HR 5 mls/hr IV .Q24H [facility] Rx#:[id number] Heparin Sod,Pork in 0.45% 57.844 NaCl 25,000 unit In 0.45 % NaCl 1 250ml.bag @ 12 UNITS/KG/HR 8.655 mls/hr IV .Q24H [facility] Rx#: [id number] Other: Voiding Method Urinal # Voids 1 Weight 72.121 kg Results 11/12/22 07:55 11/11/22 17:32 Cardiac Enzymes 11/11/22 11/11/22 11/11/22 Range/Units 17:32 17:32 20:04 AST 51 (17-59) U/L Troponin I 0.455 H* 0.493 H* (0.000-0.034) ng/mL 11/12/22 Range/Units 00:18 AST (17-59) U/L Troponin I 0.643 H* (0.000-0.034) ng/mL Coagulation 11/11/22 11/12/22 11/12/22 Range/Units 19:00 00:18 07:55 PT 10.6 10.8 (9.0-12.0) sec APTT 23.3 39.3 H 41.2 H (22.0-30.0) sec CBC 11/11/22 11/11/22 11/12/22 Range/Units 17:32 19:00 07:55 WBC 6.5 5.9 6.3 (3.8-10.6) k/uL RBC 4.15 L 3.87 L 3.75 L (4.30-5.90) m/uL Hgb 10.6 L 9.7 L 9.6 L (13.0-17.5) gm/dL Hct 34.4 L 32.5 L 31.6 L (39.0-53.0) % Plt Count 184 213 190 (150-450) k/uL Comprehensive Metabolic Panel 11/11/22 Range/Units 17:32 Sodium 140 (137-145) mmol/L Potassium 3.3 L (3.5-5.1) mmol/L Chloride 102 (98-107) mmol/L Carbon Dioxide 25 (22-30) mmol/L BUN 13 (9-20) mg/dL Creatinine 0.52 L (0.66-1.25) mg/dL Glucose 121 H (74-99) mg/dL Calcium 8.6 (8.4-10.2) mg/dL AST 51 (17-59) U/L ALT 27 (4-49) U/L Alkaline Phosphatase 86 (38-126) U/L Total Protein 7.0 (6.3-8.2) g/dL Albumin 3.7 (3.5-5.0) g/dL Current Medications Generic Name Dose Route Start Last Admin Trade Name Freq PRN Reason Stop Dose Admin Acetaminophen 650 mg 11/11/22 22:57 Acetaminophen Tab 325 Mg Tab PO Q6HR PRN Fever and/ or Pain Hydrocodone Bitart/Acetaminophen 1 each 11/11/22 22:57 11/12/22 04:15 Hydrocodone/Apap 5-325mg 1 Each Tab PO 1 each Q4HR PRN Administration Pain Albuterol Sulfate 2.5 mg 11/11/22 19:50 Albuterol Nebulized 2.5 Mg/3 Ml INHALATION RT-Q8H PRN Shortness Of Breath Aspirin 325 mg 11/12/22 09:00 11/12/22 09:15 Aspirin 325 Mg Tab PO 325 mg DAILY [facility] Administration Atorvastatin Calcium 80 mg 11/11/22 21:00 11/11/22 21:45 Atorvastatin 80 Mg Tab PO 80 mg HS [facility] Administration Duloxetine HCl 60 mg 11/11/22 21:00 11/11/22 21:45 Duloxetine Hcl 60 Mg Capsule.Dr PO 60 mg HS [facility] Administration Furosemide 40 mg 11/12/22 09:00 Furosemide 40 Mg Tab PO DAILY [facility] Heparin Sodium (Porcine) 0 unit 11/11/22 18:41 Heparin Sodium 1,000 Un/Ml (10ml Vl) IV PER PROTOCOL PRN Low PTT Protocol Diltiazem HCl 125 mg/ Sodium 125 mls @ 5 mls/hr 11/11/22 17:45 11/11/22 21:04 Chloride IV 5 mg/hr .Q24H [facility] 5 mls/hr Infusion 5 MG/HR Heparin Sodium/Sodium Chloride 250 mls @ 8.655 mls/hr 11/11/22 18:45 11/12/22 02:44 25,000 unit/ Sodium Chloride IV 14 units/kg/hr .Q24H [facility] 10.097 mls/hr Titration Protocol 12 UNITS/KG/HR Lorazepam 1 mg 11/11/22 22:55 Lorazepam 2 Mg/Ml Inj IV Q1HR PRN CIWA 10 to 15 Lorazepam 1 mg 11/11/22 22:55 11/11/22 23:40 Lorazepam 2 Mg/Ml Inj IV 1 mg Q2HR PRN Administration CIWA 8 or 9 Lorazepam 2 mg 11/11/22 22:55 Lorazepam 2 Mg/Ml Inj IV 11/13/22 22:55 Q10M PRN CIWA 16 or higher Metoprolol Tartrate 25 mg 11/11/22 21:00 11/12/22 09:15 Metoprolol Tartrate 25 Mg Tab PO 25 mg BID [facility] Administration Nitroglycerin 0.4 mg 11/11/22 19:48 Nitroglycerin Sl Tabs 0.4 Mg Tab SUBLINGUAL Q5M PRN Chest Pain Thiamine HCl 100 mg 11/12/22 09:00 11/12/22 09:15 Thiamine 100 Mg Tab PO 100 mg DAILY [facility] Administration Intake and Output 11/11/22 11/12/22 11/12/22 22:59 06:59 14:59 Intake Total 22.417 57.844 Balance 22.417 57.844 Intake: Intake, IV Titration 22.417 57.844 Amount Diltiazem 125 mg In 22.417 Sodium Chloride 0.9% 100 ml @ 5 MG/HR 5 mls/hr IV .Q24H [facility] Rx#:[id number] Heparin Sod,Pork in 0.45% 57.844 NaCl 25,000 unit In 0.45 % NaCl 1 250ml.bag @ 12 UNITS/KG/HR 8.655 mls/hr IV .Q24H [facility] Rx#: [id number] Other: Voiding Method Urinal # Voids 1 Weight 72.121 kg 11/12/22 07:55 11/11/22 17:32
--- NOTE | 2022-11-12 11:11 | P.PN ---
Subjective Progress Note Date: 11/12/22 Hospital Course: 57-year-old male with history of paroxysmal atrial fibrillation CAD, chronic systolic CHF with EF 30%, alcohol dependence, depression presenting with dyspnea, weakness, palpitations. On initial presentation, temperature was 98.7, heart rate 124, blood pressure 93/58, saturating at 93% on room air. WBC 6.5, hemoglobin 10.6, platelet 184, potassium 3.3, creatinine 0.5 to, troponin at 0.455, proBNP 7000, serum alcohol level 160. Chest x-ray showed no acute process. EKG showed A. fib with RVR. Patient admitted for symptomatic atrial fibrillation with RVR, progressive weakness and dyspnea. Cardiology was consulted. Patient was started on IV heparin drip and IV Cardizem drip. Subjective: Patient seen and examined at bedside. No acute events overnight. He denies any current chest pain, shortness of breath, abdominal pain, nausea, vomiting, urinary or bowel complaints. He claims that he feels extremely weak when getting up out of the bed. Pertinent positives and negatives as discussed above, a complete review of systems was performed and all other systems are negative. Vitals Signs Reviewed. General: nontoxic, no distress, appears at stated age Derm: warm, dry Head: atraumatic, normocephalic, symmetric Eyes: EOMI, no lid lag, anicteric sclera Mouth: no lip lesion, mucus membranes moist Cardiovascular: S1S2 irregular, tachycardic, no murmur Lungs: CTA bilateral, no rhonchi, no rales , no accessory muscle use Abdominal: soft, nontender to palpation, no guarding, no appreciable organomegaly Ext: no gross muscle atrophy, no edema, no contractures Neuro: CN II-XI grossly intact, no focal neuro deficits Psych: Alert, oriented, appropriate affect Data Reviewed Today: Pertinent Labs: WBC 6.3, hemoglobin 9.6, troponin peaked at 0.643 Assessment and Plan: Active: Atrial fibrillation with RVR type 2 NSTEMI Chronic dyspnea, likely related to COPD, and chronic systolic CHF Mild chronic systolic heart failure exacerbation Hypokalemia Suicidal ideations Acute alcohol intoxication, and dependence -Cardiology note reviewed: Cardizem discontinued, increased metoprolol 50 mg twice a day, continuing IV heparin, patient is a poor candidate for anticoagulation given his history of alcohol dependence, dosing based on APTT, daily CBC -Also started on farxiga 10 mg -on Lasix 40 mg IV twice a day, monitor urine output, and electrolytes, BMP tomorrow -Started on spironolactone 25 mg daily -Resumed lisinopril 2.5 mg daily -Patient was given potassium in the ER, BMP tomorrow -Suicide precautions,bedside sitter, psychiatry consulted -Ativan as needed based on CIWA score -Thiamine oral Chronic: CAD COPD, not in exacerbation Nicotine dependence DVT ppx: Heparin drip Code status: Full code Anticipated discharge place: Pending clinical course Anticipated discharge time: Pending clinical course Objective - Vital Signs Vital signs: Vital Signs Temp 98.7 F 11/11/22 17:12 Pulse 111 H 11/12/22 09:14 Resp 18 11/12/22 09:14 BP 90/52 11/12/22 09:14 Pulse Ox 94 L 11/12/22 09:49 FiO2 Intake & Output 11/11/22 11/12/22 11/12/22 18:59 06:59 18:59 Intake Total 80.261 146.760 Balance 80.261 146.760 Weight 72.121 kg 72.121 kg Intake: Intake, IV Titration 80.261 146.760 Amount Diltiazem 125 mg In 22.417 67.667 Sodium Chloride 0.9% 100 ml @ 5 MG/HR 5 mls/hr IV .Q24H [facility] Rx#:[id number] Heparin Sod,Pork in 0.45% 57.844 79.093 NaCl 25,000 unit In 0.45 % NaCl 1 250ml.bag @ 12 UNITS/KG/HR 8.655 mls/hr IV .Q24H [facility] Rx#: [id number] Other: Voiding Method Urinal Urinal # Voids 1 - Labs CBC & Chem 7: 11/12/22 07:55 11/11/22 17:32 Labs: Abnormal Lab Results - Last 24 Hours (Table) 11/11/22 11/11/22 11/11/22 Range/Units 17:32 17:32 17:32 RBC 4.15 L (4.30-5.90) m/uL Hgb 10.6 L (13.0-17.5) gm/dL Hct 34.4 L (39.0-53.0) % MCHC 30.8 L (31.0-37.0) g/dL RDW 21.5 H (11.5-15.5) % Lymphocytes # 0.8 L (1.0-4.8) k/uL APTT (22.0-30.0) sec D-Dimer (<0.60) mg/L FEU Potassium 3.3 L (3.5-5.1) mmol/L Creatinine 0.52 L (0.66-1.25) mg/dL Glucose 121 H (74-99) mg/dL Troponin I 0.455 H* (0.000-0.034) ng/mL 11/11/22 11/11/22 11/12/22 Range/Units 19:00 20:04 00:18 RBC 3.87 L (4.30-5.90) m/uL Hgb 9.7 L (13.0-17.5) gm/dL Hct 32.5 L (39.0-53.0) % MCHC 29.8 L (31.0-37.0) g/dL RDW 21.4 H (11.5-15.5) % Lymphocytes # (1.0-4.8) k/uL APTT (22.0-30.0) sec D-Dimer (<0.60) mg/L FEU Potassium (3.5-5.1) mmol/L Creatinine (0.66-1.25) mg/dL Glucose (74-99) mg/dL Troponin I 0.493 H* 0.643 H* (0.000-0.034) ng/mL 11/12/22 11/12/22 11/12/22 Range/Units 00:18 07:55 07:55 RBC 3.75 L (4.30-5.90) m/uL Hgb 9.6 L (13.0-17.5) gm/dL Hct 31.6 L (39.0-53.0) % MCHC 30.3 L (31.0-37.0) g/dL RDW 21.8 H (11.5-15.5) % Lymphocytes # (1.0-4.8) k/uL APTT 39.3 H 41.2 H (22.0-30.0) sec D-Dimer 1.38 H (<0.60) mg/L FEU Potassium (3.5-5.1) mmol/L Creatinine (0.66-1.25) mg/dL Glucose (74-99) mg/dL Troponin I (0.000-0.034) ng/mL
[2022-11-12 12:28] LABS: African American GFR (CKD) >90 (>60 ml/min/1.73 sqM); Anion Gap 10 mmol/L; Blood Urea Nitrogen 23 mg/dL (9-20); Calcium 8.3 mg/dL (8.4-10.2); Carbon Dioxide 23 mmol/L (22-30); Chloride 103 mmol/L (98-107); Glucose 191 mg/dL (74-99); Magnesium 1.9 mg/dL (1.6-2.3); Non-African American GFR(CKD) >90 (>60 ml/min/1.73 sqM); Potassium 3.7 mmol/L (3.5-5.1); Sodium 136 mmol/L (137-145)
[2022-11-12] MEDS: DAPAGLIFLOZIN PROPANEDIOL 10 MG TABLET PO SCH (13:04)
[2022-11-12] MEDS: SPIRONOLACTONE 25 MG TAB PO SCH (13:04)
[2022-11-12 13:06] LABS: Chol/HDL Ratio 1.87 Ratio; LDL Cholesterol,Calculated 37.6 mg/dL (0.0-131.0); VLDL Calculation 11.78 mg/dL (5.00-40.00)
[2022-11-12] MEDS: LORazepam 2 MG/ML INJ IV PRN (15:50)
--- NOTE | 2022-11-12 16:04 | P.CN ---
Psychiatric Consult - . Consult date: 11/12/22 Consult:: 11/12/22 13:40 IDENTIFYING DATA: Patient is a 57-year-old male who is currently lives by himself and currently collects Social Security REASON FOR REFERRAL: Psychiatry was consulted for potential suicidal ideation HISTORY OF PRESENT ILLNESS: The patient presented to the hospital due to symptomatic atrial fibrillation with RVR, weakness, dyspnea, and elevated troponins. Cardiology is on board. Patient states that he was released from detention 2 weeks ago. He says that he drank while on probation and is concerned that he will have to return to detention for 1 year (from what he was told). When asked to describe his mood recently, he says that being in detention was "rough on me" while smiling sarcastically. He reports a long history of trouble falling and staying asleep. He also says his appetite has been poor. He reports drinking one to 2/5 of liquor daily. He says it started with vodka but has been whiskey recently. He reports a long history of substance use. He says he began drinking at a young age and the drinking increased in 2011. He reports having attended [employer] in 2016. He also endorses a history of heroin use and says at its peak he was using 1 g daily along with cocaine from 2013 to June 2016. Patient says well he is not on probation, he also smokes marijuana about twice a week "to relax ". Patient states that he began smoking tobacco since he was 9 years old and smokes currently 1 pack per day. Patient becomes irritable while discussing his substance use and discussing potential recommendations including considering inpatient rehab and medications. He states that he has already been on Antabuse, Vivitrol (and Naltrexone), and Campral in the past. He says he does not want to be on any of these currently. He says he would like to get his medical health in order and to work on improving his ability to walk. He reports feeling concerned about his heart condition and is hopeful for improvement. Patient says he is doing well on Cymbalta 60 mg and asks if this might be able to be increased to help him get through this rough time. He says that while he was in detention, he was not getting his medication and therefore says he has been feeling better since resuming taking the Cymbalta at home. Patient vehemently denies suicidal ideation, intent or plan, as asked and assessed. He says that he would like to spend time with his girlfriend who is currently in [place] and with his 2-month-old child. He is also hoping that he would be able to get some physical therapy. At this time patient denies any suicidal or homicidal ideations, intent or plan. Patient denies any auditory and visual hallucinations. Patient expresses that there is someone named Jakub who has hacked into social media and has committed identity theft on his behalf. He says he called the police on her but denies any other intention to take any other actions including harming anybody. Per chart review from notes in 04/2019, this is likely a chronic delusion for the patient. Patient denies a history of constellation of symptoms consistent with darci while sober of all substances. He states that he has had a history of such symptoms while withdrawing from heroin and using cocaine. PAST PSYCHIATRIC HISTORY: Patient states that he has a history of bipolar. Patient's last psychiatric hospitalization was on 03/2020. Patient was on Lamictal and Cymbalta and has recently been off these medications. He currently follows up at [facility] and his therapist. He claims that he has had 3 previous suicide attempts in the past overdosing on medication several years ago. He reports having "tardive dyskinesia "on Risperdal and Zyprexa. He says that Seroquel made him very sleepy. PAST MEDICAL HISTORY: Past Medical History: COPD, GERD/Reflux, GI Bleed, Hypertension, Myocardial Infarction (DE), Pneumonia, Skin Disorder Additional Past Medical History / Comment(s): ETOH abuse with delirium tremors, lower GI bleed, IBS, chronic iron deficiency anemia, hypomagnesemia, hyperbilirubinemia, anorexia, vertigo, nephrolithiasis-passed stone on his own, chronic low back/cervical pain, DDD, kyphosis, scoliosis, coccyx pressure ulcer pt states is mostly healed. Dry and itchy skin back in high school. 2 heart attacks, one in December (2020) second in February (2020). Last Myocardial Infarction Date:: February 2021 History of Any Multi-Drug Resistant Organisms: None Reported Past Surgical History: Bariatric Surgery, Heart Catheterization With Stent, Hernia Repair, Orthopedic Surgery, Tonsillectomy Additional Past Surgical History / Comment(s): Right inner Forearm-metal plate, gastric bypass, incisional hernia surgery x2, EGDs, colonoscopies. 2 Stents placed in December 2020. Past Anesthesia/Blood Transfusion Reactions: No Reported Reaction Date of Last Stent Placement:: 2020 Past Psychological History: Anxiety, Bipolar, Depression, PTSD Additional Psychological History / Comment(s): Pt resides in a friends home where he rents a room. He now has a car and drives. Pt states his depression is stable at this time, no thoughts or plans of suicide. He has had multiple mental health unit admissions. He has ETOH abuse. He goes to [facility]. Smoking Status: Current every day smoker Past Alcohol Use History: Abuse Additional Past Alcohol Use History / Comment(s): Pt started smoking in 1979 and is a 1.5 -2ppd smoker. He drinks on average 12 beers /day 4-5 days a week or 1- 2 fifths per day Past Drug Use History: None Reported Additional Drug Use History / Comment(s): Pt still uses marijuana on occasion, but quit all other drugs 4-5 years ago. ALLERGIES: as per EMR. CHEMICAL DEPENDENCY HISTORY: as per HPI. FAMILY PSYCHIATRIC/SUBSTANCE USE HISTORY: Claims his father was an alcoholic and his grandmother had some form of mental illness. SOCIAL HISTORY: Per chart review: States that he was born and raised in [facility] and moved to [place] thereafter. 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 Pt resides in a friends home where he rents a room. Patient reported that this provider that he is living by himself. He says he has a girlfriend Abby in [place]. He reports having 6 daughters and 3 sons. He says he used to travel and being abandoned. He says he enjoys playing guitar and belle. MENTAL STATUS EXAM: General Appearance: Patient appears to be stated age is alert, attempts to be cooperative but becomes uncooperative when discussing treatment for substance use. Patient has a long house and has fair hygiene and grooming. Tattoos Behavior: Patient is calmly seated without any agitated behavior. Speech: Patient's speech is fluent and nonpressured. Mood/Affect: Patient reports their mood is "just fine", affect is congruent and irritable at times. Suicidality/Homicidality: Patient denies having any homicidal or suicidal ideations intent or plan. Perceptions: Patient denies any auditory or visual hallucinations. Though content/process: Chronic delusion. Rambles at times. Logical. Memory and concentration: AOX3, grossly intact for the purposes of this session. Can spell "WORLD" backwards Judgment and insight: Poor and impulsive IMPRESSIONS: Depressive disorder, mixed. Substance-induced depressive disorder vs major depressive disorder, mixed Alcohol use disorder, severe, in withdrawal Opioid use disorder, in sustained remission Cannabis use disorder, in early remission Nicotine dependence Likely delusional disorder Plan: -At this time patient DOES NOT meet criteria for inpatient psychiatric admission. -Would recommend the following medication changes/additions: Start Abilify 10 mg daily for mood stabilization. QTc 422 Continue Cymbalta 60 mg daily for mood/anxiety/pain. Discussed recommendation of alcohol craving medications at length but patient was highly resistant to this -CIWA protocol with PRN Ativan for alcohol withdrawal. Continue to monitor vital signs. -Patient is currently established with [facility] and recommend regular follow-up -Paleontology Teacher spoke with patient about substance abuse and the harmful effects on medical and mental health, patient verbally understood and agreed. Patient was offered rehab for substance use however patient is declining both of them at this time. -SW to provide patient substance use treatment resources including AA/NA meetings in the community. -SW to provide patient with access line number to call for inpatient substance rehab -Communicated plan to patient's nurse -Psychiatry will continue to follow and likely sign off tomorrow -Please contact with any questions. 11/12/22 15:36 11/12/22 16:01
[2022-11-12] MEDS: ARIPiprazole 10 MG TAB PO SCH (17:06)
[2022-11-12] MEDS: HEPARIN SOD,PORK IN 0.45% NACL 25,000 UNIT in 0.45% NACL 1 250ML.BAG IV SCH (19:53)
[2022-11-12] MEDS: ATORVASTATIN 80 MG TAB PO SCH (19:53)
[2022-11-12] MEDS: DULoxetine HCL 60 MG CAPSULE.DR PO SCH (19:53)
[2022-11-12] MEDS: FUROSEMIDE 10 MG/ML 4 ML VIAL IV SCH (19:53)
[2022-11-12] MEDS: METOPROLOL TARTRATE 50 MG TAB PO SCH ×2 (19:53→20:01)
[2022-11-13] MEDS: METOPROLOL TARTRATE 50 MG TAB PO SCH ×2 (09:13→20:49)
[2022-11-13] MEDS: SPIRONOLACTONE 25 MG TAB PO SCH (09:13)
[2022-11-13] MEDS: ASPIRIN 81 MG PO SCH (09:13)
[2022-11-13] MEDS: THIAMINE 100 MG TAB PO SCH (09:13)
[2022-11-13] MEDS: ARIPiprazole 10 MG TAB PO SCH (09:13)
[2022-11-13] MEDS: FUROSEMIDE 10 MG/ML 4 ML VIAL IV SCH (09:13)
[2022-11-13 09:27] LABS: Anisocytosis Moderate; Basophils % (A) 1 %; Eosinophils # (A) 0.1 k/uL (0-0.7); Eosinophils % (A) 2 %; HCT 35.8 % (39.0-53.0); HGB 10.5 gm/dL (13.0-17.5); Hypochromasia Marked; Lymphocytes # (A) 1.8 k/uL (1.0-4.8); Lymphocytes % (A) 25 %; MCH 25.8 pg (25.0-35.0); MCHC 29.4 g/dL (31.0-37.0); MCV 87.8 fL (80.0-100.0); Macrocytosis Slight; Monocytes # (A) 0.4 k/uL (0-1.0); Monocytes % (A) 5 %; Neutrophils # (A) 4.7 k/uL (1.3-7.7); Neutrophils % (A) 65 %; Platelet Count 188 k/uL (150-450); RBC 4.07 m/uL (4.30-5.90); RDW 22.1 % (11.5-15.5); WBC 7.3 k/uL (3.8-10.6)
[2022-11-13 09:56] LABS: African American GFR (CKD) >90 (>60 ml/min/1.73 sqM); Anion Gap 10 mmol/L; Blood Urea Nitrogen 27 mg/dL (9-20); Calcium 8.4 mg/dL (8.4-10.2); Carbon Dioxide 27 mmol/L (22-30); Chloride 99 mmol/L (98-107); Glucose 247 mg/dL (74-99); Magnesium 1.7 mg/dL (1.6-2.3); Non-African American GFR(CKD) >90 (>60 ml/min/1.73 sqM); Potassium 3.5 mmol/L (3.5-5.1); Sodium 136 mmol/L (137-145)
[2022-11-13] MEDS: DAPAGLIFLOZIN PROPANEDIOL 10 MG TABLET PO SCH (10:05)
[2022-11-13 12:56] LABS: ABG Base Excess -0.8 mmol/L; ABG HCO3 24 mmol/L (21-25); ABG Oxygen Saturation 94.9 % (94-97); ABG PCO2 40 mmHg (35-45); ABG PH 7.39 (7.35-7.45); ABG PO2 80 mmHg (83-108); ABG TCO2 25 mmol/L (19-24); Allen Test Performed? Yes
[2022-11-13] MEDS ORDERED: SODIUM CHLORIDE 0.9% 500 ML 500 ML IV ONE (12:57)
--- NOTE | 2022-11-13 13:39 | XR ---
EXAMINATION TYPE: XR chest 1V portable DATE OF EXAM: 11/13/2022 COMPARISON: 11/11/2022 HISTORY: Shortness of breath TECHNIQUE: Single frontal view of the chest is obtained. FINDINGS: A chronic rib cage deformities are seen and there is elevation left hemidiaphragm. Hypertr ophic and degenerative changes of the spine. There is limited inspiration. No sizable pneumothorax. IMPRESSION: 1. Elevated left hemidiaphragm with volume loss and basilar consolidation. Stable from prior exam. Fa vor compressive atelectasis over pneumonia correlate clinically.
--- NOTE | 2022-11-13 14:55 | P.PN ---
Progress Note - Text Progress Note Date: 11/13/22 Interval hx: Patient was seen today by story writer for psychiatric follow up today. Patient's mother states that patient has been lethargic today and at times complaining of shortness of breath. Patient was seen lying in bed and was awoken by story writer. He is stationed. He did briefly explained why came to the hospital due to Chest Pain. He Did State That He Was Recently in Retirement. He Claims That He Has Still Having Anxiety Which Is His Main Complaint at This Time. he denies any depression. he claims that he has been feeling tired aswell for the past two days. denies any etoh w/d sx. he states that he is eating fairly. he denies any si or hi at this time and denies any ah or vh. he has been taking meds as perscribed. Mental status exam: General Appearance: Patient appears to be bald, wearing glasses, stated age is lethargic, attempts to be cooperative. Patient has a long house and has fair hygiene and grooming. Tattoos Behavior: Patient is calmly seated without any agitated behavior. lethargic. Speech: Patient's speech is fluent and nonpressured. concrete. Mood/Affect: Patient reports their mood is "just anxious", affect is congruent Suicidality/Homicidality: Patient denies having any homicidal or suicidal ideations intent or plan. Perceptions: Patient denies any auditory or visual hallucinations. Though content/process: Chronic delusion. Rambles at times. Logical. Memory and concentration: AOX3, grossly intact for the purposes of this session. Judgment and insight: Poor, improving midlly IMPRESSIONS: Depressive disorder r/o substance-induced depressive disorder vs major depressive disorder Alcohol use disorder, severe dependence, in withdrawal Opioid use disorder, in sustained remission Cannabis use disorder, in early remission Nicotine dependence hx of delusional disorder Plan: -At this time patient DOES NOT meet criteria for inpatient psychiatric admis rosa. -Would recommend the following medication changes/additions: continue Abilify 10 mg daily for mood stabilization Continue Cymbalta 60 mg daily for mood/anxiety/pain added buspar 15 mg tid shceduled for anxiety. decreased librium to 10 mg bid for etoh withdrawl and likely oversedation -CIWA protocol with PRN Ativan for alcohol withdrawal. Continue to monitor vital signs. -Patient is currently established with [facility] and recommend regular follow-up -Crm Functional Analyst spoke with patient about substance abuse and the harmful effects on medical and mental health, patient verbally understood and agreed. Patient was offered rehab for substance use however patient is declining both of them at this time. -SW to provide patient substance use treatment resources including AA/NA meetings in the community. -SW to provide patient with access line number to call for inpatient substance rehab -Communicated plan to patient's nurse -Psychiatry will follow up tomorrow and likely sign off then -Please contact with any questions.
[2022-11-13 15:04] VITALS: BMI 21.3
[2022-11-13] MEDS ORDERED: DEXTROSE 50% SYRINGE 50 ML IVP PRN ×2 (15:48)
--- NOTE | 2022-11-13 15:54 | P.PN ---
Subjective Progress Note Date: 11/13/22 (delayed charting seen at 1015) Patient is a 57-year-old male with known paroxysmal atrial fibrillation, ischemic cardiomyopathy with chronic systolic congestive heart failure ejection fraction 30%, coronary artery disease, and alcohol dependency who presented with weakness and palpitations. In the ER he underwent extensive evaluation. On arrival his heart rate was 124 and blood pressure was 93/58. Initial laboratory analysis was remarkable for hemoglobin of 10.6, potassium 3.3, troponin 0.455, and BNP approximately 7000. Chest x-ray showed no acute process and EKG confirmed atrial fibrillation with rapid ventricular response. Patient was started on IV Cardizem and heparin. Is admitted to the telemetry unit for further monitoring. Cardiology was consulted. Patient was transitioned from IV Cardizem to metoprolol. He is considered high risk for anticoagulation secondar y to history of alcohol dependency and noncompliance. He was seen by psychiatry for depression but did not meet requirements for inpatient admission. Patient seen and examined at bedside. He complains of a chronic cough which is worse, despite being sedated and appearing lethargic he continues to complain of anxiety, he does complain of some shortness of breath. We had a very juan antonio conversation that if he continues to consume alcohol his overall health will worsen and he will not recover. We also discussed that he likely will have chronic exercise intolerance due to his severe cardiomyopathy. Vital signs reviewed General: nontoxic, no distress, appears at stated age Cardiovascular: S1S2 reg, no murmur, positive posterior tibial pulse bilateral, Lungs: Decreased bs bilateral, no rhonchi, no rales , no accessory muscle use Abdominal: soft, nontender to palpation, no guarding, no appreciable organomegaly Ext: no gross muscle atrophy, no edema, no contractures Neuro: CN II-XI grossly intact, no focal neuro deficits Psych: Lethargic, oriented, appropriate affect Assessment: Atrial fibrillation with rapid ventricular response Type II myocardial infarction secondary to A. fib with RVR Acute on Chronic systolic congestive heart failure, EF 30-35 % Depression with suicidal ideation Acute alcohol intoxication and dependence a known alcoholic Hypokalemia Hyperglcemia Chronic: Coronary artery disease, COPD not in exacerbation, nicotine dependency Imaging: Chest x-ray ordered and reviewed by myself: Left hemidiaphragm elevation, mild atelectasis right lung Data Review: Vital signs reviewed from this morning temperature 97.4, pulse 108, respirations 18, blood pressure 94/62, O2 sat 99% on room air Laboratory analysis remarkable for hemoglobin 10.5, sodium 136, BUN 27, glucose 247 Ammonia ordered and was 18, ABG was ordered and unremarkable. Plan: -Continue with aspirin 81 mg daily, Lipitor 80 mg daily, Lopressor 50 mg twice daily -Lisinopril 2.5 mg, Lasix and aldactone discontinued secondary to hypotension - Continue with Farxiga - add SSI Continue with CIWA protocol, thiamine, and folic acid 1 mg daily -Cardiology note reviewed from 11/12. They recommending stopping IV Cardizem and heparin would continue with the beta deepa, statins, and diuretics. They recommended adding farxiga. - Psych note reviewed: recommended decreasing librium, no indication for inpatient admission. - On heparin gtt. - Start SSI given hyperglycemia, check A1C DVT prophylaxis: Heparin gtt Discussed with: Social work: Likely need SNF on discharge patient has been refusing ETOH rehab Anticipated discharge date: Pending clinical course Anticipated discharge place: Pending clinical course This dictation was prepared using [employer] voice recognition software. Though every attempt is made to correct errors during during dictation some may still exist. Objective - Vital Signs Vital signs: Vital Signs Temp 97.4 F L 11/13/22 12:15 Pulse 95 11/13/22 12:15 Resp 16 11/13/22 14:00 BP 81/56 11/13/22 12:15 Pulse Ox 100 11/13/22 12:15 FiO2 Intake & Output 11/12/22 11/13/22 11/13/22 18:59 06:59 18:59 Intake Total 1586.760 107.505 263.854 Output Total 200 Balance 1586.760 -92.495 263.854 Weight 63.6 kg 63.6 kg Intake: Intake, IV Titration 146.760 107.505 163.854 Amount Diltiazem 125 mg In 67.667 Sodium Chloride 0.9% 100 ml @ 5 MG/HR 5 mls/hr IV .Q24H ROLA Rx#:[id number] Heparin Sod,Pork in 0.45% 79.093 107.505 163.854 NaCl 25,000 unit In 0.45 % NaCl 1 250ml.bag @ 12 UNITS/KG/HR 8.655 mls/hr IV .Q24H ROLA Rx#: [id number] Oral 1440 100 Output: Urine 200 Other: Voiding Method Urinal Urinal Urinal # Voids 2 1 1 # Bowel Movements 1 1 - Labs CBC & Chem 7: 11/13/22 09:10 11/13/22 09:10 Labs: Abnormal Lab Results - Last 24 Hours (Table) 11/12/22 11/13/22 11/13/22 Range/Units 16:49 09:10 09:10 RBC 4.07 L (4.30-5.90) m/uL Hgb 10.5 L (13.0-17.5) gm/dL Hct 35.8 L (39.0-53.0) % MCHC 29.4 L (31.0-37.0) g/dL RDW 22.1 H (11.5-15.5) % APTT 50.1 H (22.0-30.0) sec ABG pO2 (83-108) mmHg ABG Total CO2 (19-24) mmol/L Sodium 136 L (137-145) mmol/L BUN 27 H (9-20) mg/dL Glucose 247 H (74-99) mg/dL 11/13/22 11/13/22 Range/Units 09:10 12:52 RBC (4.30-5.90) m/uL Hgb (13.0-17.5) gm/dL Hct (39.0-53.0) % MCHC (31.0-37.0) g/dL RDW (11.5-15.5) % APTT 77.1 H (22.0-30.0) sec ABG pO2 80 L (83-108) mmHg ABG Total CO2 25 H (19-24) mmol/L Sodium (137-145) mmol/L BUN (9-20) mg/dL Glucose (74-99) mg/dL
[2022-11-13 16:42] LABS: Glucose,Whole Blood 149 mg/dL (70-110)
[2022-11-13] MEDS: busPIRone HCl 5 MG TAB PO SCH ×2 (17:44→21:39)
[2022-11-13] MEDS: FOLIC ACID 1 MG TAB PO SCH (17:44)
[2022-11-13] MEDS: INSULIN ASPART (NovoLOG) 100 UNIT/ML VIAL SQ SCH ×2 (17:45→20:36)
[2022-11-13] MEDS: HEPARIN SOD,PORK IN 0.45% NACL 25,000 UNIT in 0.45% NACL 1 250ML.BAG IV SCH (17:46)
--- NOTE | 2022-11-13 19:43 | P.PN ---
Subjective History of Present Illness: The patient is a 57-year-old male with a known history of coronary disease, ischemic cardiomyopathy, paroxysmal atrial fibrillation who presents to the emergency room with symptoms of progressive dyspnea, fatigue and chest discomfort. And fortunately the patient has a history of heavy alcohol intake and has been drinking recently. He was noted to be in atrial fibrillation on presentation which has been paroxysmal in the past. He has been complaining of chest discomfort at times exertional. His troponin is mildly elevated but has been elevated in the past. He had some peripheral edema that resolved but recent PND or orthopnea. He was in [facility] until early this month. He has not been always compliant with his medication. He presented in December 2020 with an acute myocardial infarction. Underwent cardiac catheterization that showed total occlusion of the mid LAD and proximal RCA with collaterals from the left system to the RCA and mild to moderate disease in the left circumflex. He underwent stenting of the mid LAD and was found to have chronic occlusion of the distal LAD. His most recent echocardiogram in October showed an ejection fraction of 30-35% with moderate mitral and [id number] tricuspid regurgitation. He was admitted earlier this month with exacerbation of CHF with reduced ejection fraction. On presentation he was in atrial fibrillation with rapid ventricular response he has been maintained on IV Cardizem and IV heparin. His NT proBNP was 7520. His troponin mildly elevated but predominantly flat. He has a history of chronic tobacco use. Medications: Zestril 2.5 mg daily, Lopressor 25 mg twice a day, Lasix 40 mg daily, Cymbalta, aspirin, Lipitor 80 mg daily 11/13 Patient seen and examined. Hemoglobin 10.5, platelets 188, creatinine stable at 0.8 however increase from prior 0.5. Patient was restarted on heart failure regimen however blood pressures very borderline 80s over 40s and 50s. He denies any actual lightheadedness however appears fatigued and states he feels weak. He has been on IV Lasix however does not appear to have significant edema and these will be discontinued today. Physical Examination: Vitals reviewed Head: Normocephalic. Eyes: Sclerae nonicteric. Neck: Good carotid upstroke, no bruit, no jugular venous distention. Lungs: Decreased breath sounds bilaterally Heart: Irregular rate and rhythm, S1-S2, no S3, no rub. Systolic ejection mu rmur. Abdomen: Soft nontender, positive bowel sounds no organomegaly. Extremities: No edema, intact distal pulses. Impression: 1. Symptoms of progressive dyspnea was combination of CHF and probable COPD 2. Atrial fibrillation, paroxysmal with rapid ventricular response. His score is 2. The patient is not a good candidate for anticoagulation at this time on the clinical account manager because of the history of severe alcohol intake and noncompliance 3. Troponin elevation appears to be chronic and probably represent type II myocardial infarction 4. History of stenting of the LAD and chronic occlusion of the RCA 5. Severe ischemic cardiac myopathy 6. Chronic alcohol intake 7. Chronic tobacco use 8. Anemia 9. History of depression and suicidal ideation Plan: Patient with mildly worsened kidney function up from 0.5 disease or 0.8 and increased BUN to creatinine ratio and appears somewhat poor line dry on exam. Additionally he is hypotensive and we will hold lisinopril, spironolactone and Lasix. Continue metoprolol for now. May need IV hydration. Optimize heart failure regimen is able. Monitor heart rates on beta deepa. Further recommendations to follow. Objective - Vital Signs Vital signs: Vital Signs Temp 97.4 F L 11/13/22 12:15 Pulse 99 11/13/22 17:40 Resp 16 11/13/22 17:40 BP 86/42 11/13/22 17:40 Pulse Ox 99 11/13/22 17:40 FiO2 Intake & Output 11/13/22 11/13/22 11/14/22 06:59 18:59 06:59 Intake Total 526.800 8599.000 Output Total 200 Balance -92.495 1620.000 Weight 63.6 kg 63.6 kg Intake: Intake, IV Titration 107.505 250.000 Amount Heparin Sod,Pork in 0.45% 107.505 250.000 NaCl 25,000 unit In 0.45 % NaCl 1 250ml.bag @ 12 UNITS/KG/HR 8.655 mls/hr IV .Q24H ROLA Rx#: [id number] Oral 1370 Output: Urine 200 Other: Voiding Method Urinal Urinal # Voids 1 1 # Bowel Movements 1 1 - Labs CBC & Chem 7: 11/13/22 09:10 11/13/22 09:10 Labs: Abnormal Lab Results - Last 24 Hours (Table) 11/13/22 11/13/22 11/13/22 Range/Units 09:10 09:10 09:10 RBC 4.07 L (4.30-5.90) m/uL Hgb 10.5 L (13.0-17.5) gm/dL Hct 35.8 L (39.0-53.0) % MCHC 29.4 L (31.0-37.0) g/dL RDW 22.1 H (11.5-15.5) % APTT 77.1 H (22.0-30.0) sec ABG pO2 (83-108) mmHg ABG Total CO2 (19-24) mmol/L Sodium 136 L (137-145) mmol/L BUN 27 H (9-20) mg/dL Glucose 247 H (74-99) mg/dL POC Glucose (mg/dL) (70-110) mg/dL 11/13/22 11/13/22 Range/Units 12:52 16:38 RBC (4.30-5.90) m/uL Hgb (13.0-17.5) gm/dL Hct (39.0-53.0) % MCHC (31.0-37.0) g/dL RDW (11.5-15.5) % APTT (22.0-30.0) sec ABG pO2 80 L (83-108) mmHg ABG Total CO2 25 H (19-24) mmol/L Sodium (137-145) mmol/L BUN (9-20) mg/dL Glucose (74-99) mg/dL POC Glucose (mg/dL) 149 H (70-110) mg/dL
[2022-11-13 20:22] LABS: Glucose,Whole Blood 141 mg/dL (70-110)
[2022-11-13] MEDS: DULoxetine HCL 60 MG CAPSULE.DR PO SCH (20:49)
[2022-11-13] MEDS: ATORVASTATIN 80 MG TAB PO SCH (20:49)
[2022-11-13] MEDS: ALBUTEROL NEBULIZED 2.5 MG/3 ML INHALATION PRN (21:48)
[2022-11-14 06:11] LABS: Glucose,Whole Blood 132 mg/dL (70-110)
[2022-11-14] MEDS: INSULIN ASPART (NovoLOG) 100 UNIT/ML VIAL SQ SCH ×4 (06:13→20:18)
[2022-11-14] MEDS: ASPIRIN 81 MG PO SCH (09:00)
[2022-11-14] MEDS: THIAMINE 100 MG TAB PO SCH (09:00)
[2022-11-14] MEDS: DAPAGLIFLOZIN PROPANEDIOL 10 MG TABLET PO SCH (09:00)
[2022-11-14] MEDS: busPIRone HCl 5 MG TAB PO SCH (09:00)
[2022-11-14] MEDS: METOPROLOL TARTRATE 25 MG TAB PO SCH ×2 (09:00→20:09)
[2022-11-14] MEDS: ARIPiprazole 10 MG TAB PO SCH (09:00)
[2022-11-14] MEDS: FOLIC ACID 1 MG TAB PO SCH (09:00)
[2022-11-14 09:19] LABS: Anisocytosis Moderate; Basophils % (A) 0 %; Eosinophils % (A) 0 %; HCT 34.3 % (39.0-53.0); Hypochromasia Marked; Lymphocytes # (A) 1.9 k/uL (1.0-4.8); Lymphocytes % (A) 24 %; MCH 24.4 pg (25.0-35.0); MCHC 29.1 g/dL (31.0-37.0); MCV 83.9 fL (80.0-100.0); Microcytosis Slight; Monocytes # (A) 0.5 k/uL (0-1.0); Monocytes % (A) 6 %; Neutrophils # (A) 5.2 k/uL (1.3-7.7); Neutrophils % (A) 65 %; Platelet Count 142 k/uL (150-450); RBC 4.09 m/uL (4.30-5.90); RDW 22.8 % (11.5-15.5)
[2022-11-14 09:31] LABS: ALT 335 U/L (4-49); African American GFR (CKD) >90 (>60 ml/min/1.73 sqM); Albumin 3.3 g/dL (3.5-5.0); Alkaline Phosphatase 180 U/L (38-126); Anion Gap 11 mmol/L; Blood Urea Nitrogen 40 mg/dL (9-20); Calcium 8.3 mg/dL (8.4-10.2); Carbon Dioxide 22 mmol/L (22-30); Chloride 99 mmol/L (98-107); Glucose 124 mg/dL (74-99); Magnesium 1.7 mg/dL (1.6-2.3); Non-African American GFR(CKD) 88 (>60 ml/min/1.73 sqM); Potassium 4.3 mmol/L (3.5-5.1); Sodium 132 mmol/L (137-145); Total Bilirubin 2.4 mg/dL (0.2-1.3); Total Protein 6.4 g/dL (6.3-8.2)
--- NOTE | 2022-11-14 11:06 | P.PN ---
Subjective Progress Note Date: 11/14/22 Patient is a 57-year-old male with known paroxysmal atrial fibrillation, ischemic cardiomyopathy with chronic systolic congestive heart failure ejection fraction 30%, coronary artery disease, and alcohol dependency who presented with weakness and palpitations. In the ER he underwent extensive evaluation. On arrival his heart rate was 124 and blood pressure was 93/58. Initial laboratory analysis was remarkable for hemoglobin of 10.6, potassium 3.3, troponin 0.455, and BNP approximately 7000. Chest x-ray showed no acute process and EKG confirmed atrial fibrillation with rapid ventricular response. Patient was started on IV Cardizem and heparin. Is admitted to the telemetry unit for further monitoring. Cardiology was consulted. Patient was transitioned from IV Cardizem to metoprolol. He is considered high risk for anticoagulation secondary to history of alcohol dependency and noncompliance. He was seen by psychiatry for depression but did not meet requirements for inpatient admission. Patient seen and examined at bedside. His breathing is slightly better today. N o chest pain, Still feeling weak. We had a very juan antonio discussion about his drinking and how it is making all his medical problems worse. Vital signs reviewed General: nontoxic, no distress, appears at stated age Cardiovascular: S1S2 reg, no murmur, positive posterior tibial pulse bilateral, Lungs: Decreased bs bilateral, no rhonchi, no rales , no accessory muscle use Abdominal: soft, nontender to palpation, no guarding, no appreciable organomegaly Ext: no gross muscle atrophy, no edema, no contractures Neuro: CN II-XI grossly intact, no focal neuro deficits Psych: Awake, oriented, appropriate affect Assessment: Atrial fibrillation with rapid ventricular response Hypotension Type II myocardial infarction secondary to A. fib with RVR Acute on Chronic systolic congestive heart failure, EF 30-35 % Depression with suicidal ideation Acute alcohol intoxication and dependence a known alcoholic Resolved: Hypokalemia Hyperglcemia Chronic: Coronary artery disease, COPD not in exacerbation, nicotine dependency Imaging: None new Data Review: Vital signs reviewed and temperature 97.8, pulse 89, respirations 18, blood pressure 85/68, O2 sat 97% on room air Labs reviewed and hemoglobin 10 (10.5 yesterday), platelet count 142, sodium 132 (down from 136), BUN 40, creatinine 0.96, ALT 335, alkaline phosphatase 180 Plan: -Continue with aspirin 81 mg daily, Lipitor 80 mg daily - He continues to have low blood pressure despite discontinuation spironolactone, lasix, and lisinopril. - Decrease metoprolol to 25 mg twice daily - Stop Farxiga as it can cause hypotension due to intravascular volume depletion - Had a long discussion with patient and he will go to Sub acute rehab on discharge and he will consider trying naltrexone - Continue with librium 10 mg BID, CIWA, thiamine 100 mg dialy, and folic acid 1 mg daily r - SSI, sugar well controlled -Cardiology note reviewed from 11/13. Discontinue spironolactone, lasix, and lisinopril. - PAwait further psych recs - On heparin gtt. - Await A1C DVT prophylaxis: Heparin gtt Discussed with: Social work: SNF on discharge Anticipated discharge date: Pending clinical course Anticipated discharge place: Pending clinical course This dictation was prepared using [employer] + voice recognition software. Though every attempt is made to correct errors during during dictation some may still exist. Objective - Vital Signs Vital signs: Vital Signs Temp 97.8 F 11/14/22 09:00 Pulse 89 11/14/22 09:00 Resp 18 11/14/22 09:00 BP 84/68 11/14/22 09:00 Pulse Ox 97 11/14/22 09:00 FiO2 Intake & Output 11/13/22 11/14/22 11/14/22 18:59 06:59 18:59 Intake Total 1620.000 540 720 Balance 1620.000 540 720 Weight 63.6 kg Intake: Intake, IV Titration 250.000 Amount Heparin Sod,Pork in 0.45% 250.000 NaCl 25,000 unit In 0.45 % NaCl 1 250ml.bag @ 12 UNITS/KG/HR 8.655 mls/hr IV .Q24H [facility] Rx#: [id number] Oral 1370 540 720 Other: Voiding Method Urinal Urinal Urinal Diaper Diaper # Voids 1 2 # Bowel Movements 1 - Labs CBC & Chem 7: 11/14/22 08:57 11/14/22 08:57 Labs: Abnormal Lab Results - Last 24 Hours (Table) 11/13/22 11/13/22 11/13/22 Range/Units 12:52 16:38 20:20 RBC (4.30-5.90) m/uL Hgb (13.0-17.5) gm/dL Hct (39.0-53.0) % MCH (25.0-35.0) pg MCHC (31.0-37.0) g/dL RDW (11.5-15.5) % Plt Count (150-450) k/uL APTT (22.0-30.0) sec ABG pO2 80 L (83-108) mmHg ABG Total CO2 25 H (19-24) mmol/L Sodium (137-145) mmol/L BUN (9-20) mg/dL Glucose (74-99) mg/dL POC Glucose (mg/dL) 149 H 141 H (70-110) mg/dL Calcium (8.4-10.2) mg/dL Total Bilirubin (0.2-1.3) mg/dL ALT (4-49) U/L Alkaline Phosphatase (38-126) U/L Albumin (3.5-5.0) g/dL 11/14/22 11/14/22 11/14/22 Range/Units 06:05 08:57 08:57 RBC 4.09 L (4.30-5.90) m/uL Hgb 10.0 L (13.0-17.5) gm/dL Hct 34.3 L (39.0-53.0) % MCH 24.4 L (25.0-35.0) pg MCHC 29.1 L (31.0-37.0) g/dL RDW 22.8 H (11.5-15.5) % Plt Count 142 L (150-450) k/uL APTT (22.0-30.0) sec ABG pO2 (83-108) mmHg ABG Total CO2 (19-24) mmol/L Sodium 132 L (137-145) mmol/L BUN 40 H (9-20) mg/dL Glucose 124 H (74-99) mg/dL POC Glucose (mg/dL) 132 H (70-110) mg/dL Calcium 8.3 L (8.4-10.2) mg/dL Total Bilirubin 2.4 H (0.2-1.3) mg/dL ALT 335 H (4-49) U/L Alkaline Phosphatase 180 H (38-126) U/L Albumin 3.3 L (3.5-5.0) g/dL 11/14/22 Range/Units 08:57 RBC (4.30-5.90) m/uL Hgb (13.0-17.5) gm/dL Hct (39.0-53.0) % MCH (25.0-35.0) pg MCHC (31.0-37.0) g/dL RDW (11.5-15.5) % Plt Count (150-450) k/uL APTT 67.5 H (22.0-30.0) sec ABG pO2 (83-108) mmHg ABG Total CO2 (19-24) mmol/L Sodium (137-145) mmol/L BUN (9-20) mg/dL Glucose (74-99) mg/dL POC Glucose (mg/dL) (70-110) mg/dL Calcium (8.4-10.2) mg/dL Total Bilirubin (0.2-1.3) mg/dL ALT (4-49) U/L Alkaline Phosphatase (38-126) U/L Albumin (3.5-5.0) g/dL
[2022-11-14 11:42] LABS: Glucose,Whole Blood 103 mg/dL (70-110)
[2022-11-14] MEDS: ALBUTEROL NEBULIZED 2.5 MG/3 ML INHALATION PRN (12:13)
--- NOTE | 2022-11-14 13:16 | P.PN ---
Progress Note - Text Progress Note Date: 11/14/22 Interval hx: Patient was seen today by specifications writer for psychiatric follow up today. Patient's nurse states that patient has been less lethargic today and doing a bit better overall. he contiues to have soft BP readings and anxious at times. Patient was seen sitting on his chair and was able to speak to specifications writer today. Patient claims that he is doing a bit better today and states the anxiety has been improving with BuSpar. He claims that he is not having any problems with his mood now depression today. States that he slept fairly last night. We spoke more counseled patient on his drinking and he states that he is now agreeable to call the number and couldn't rehab. He states that he has been eating more at having to stay hydrated. She did not offer any other complaints about the medications. Denying any withdrawal symptoms from alcohol at this time. he denies any si or hi at this time and denies any ah or vh. he has been taking meds as prescribed. Mental status exam: General Appearance: Patient appears to be bald, wearing glasses, stated age is more alert today, attempts to be cooperative. Patient has a long house and has fair hygiene and grooming. Tattoos Behavior: Patient is calmly seated without any agitated behavior. Speech: Patient's speech is fluent and nonpressured. concrete, improving mildly Mood/Affect: Patient reports their mood is "a bit better", affect is congruent Suicidality/Homicidality: Patient denies having any homicidal or suicidal ideations intent or plan. Perceptions: Patient denies any auditory or visual hallucinations. Though content/process: Logical. goal oriented, concrete. Memory and concentration: AOX3, grossly intact for the purposes of this session. Judgment and insight: improving midlly IMPRESSIONS: Depressive disorder r/o substance-induced depressive disorder vs major depressive disorder Alcohol use disorder, severe dependence, in withdrawal Opioid use disorder, in sustained remission Cannabis use disorder, in early remission Nicotine dependence hx of delusional disorder Plan: -At this time patient DOES NOT meet criteria for inpatient psychiatric admission. -Would recommend the following medication changes/additions: continue Abilify 10 mg daily for mood stabilization Continue Cymbalta 60 mg daily for mood/anxiety/pain increase buspar 20 mg tid shceduled for anxiety. d/c librium today -CIWA protocol with PRN Ativan for alcohol withdrawal. Continue to monitor vital signs. -Patient is currently established with [facility] and recommend regular follow-up -[facility] spoke with patient about substance abuse and the harmful effects on medical and mental health, patient verbally understood and agreed. -SW to provide patient substance use treatment resources including AA/NA meetings in the community. -SW to provide patient with access line number to call for inpatient substance rehab -Communicated plan to patient's nurse -Psychiatry will sign off at this time. -Please contact with any questions.
[2022-11-14 13:50] LABS: AST 1587 U/L (17-59)
[2022-11-14 16:08] LABS: Glucose,Whole Blood 134 mg/dL (70-110)
[2022-11-14] MEDS: busPIRone HCl 10 MG TAB PO SCH ×2 (16:13→22:02)
[2022-11-14] MEDS: HEPARIN SOD,PORK IN 0.45% NACL 25,000 UNIT in 0.45% NACL 1 250ML.BAG IV SCH (17:11)
--- NOTE | 2022-11-14 20:02 | P.PN ---
Subjective Progress Note Date: 11/14/22 The patient is a 57-year-old male with a known history of coronary disease, ischemic cardiomyopathy, paroxysmal atrial fibrillation who presents to the emergency room with symptoms of progressive dyspnea, fatigue and chest discomfort. And fortunately the patient has a history of heavy alcohol intake and has been drinking recently. He was noted to be in atrial fibrillation on presentation which has been paroxysmal in the past. He has been complaining of chest discomfort at times exertional. His troponin is mildly elevated but has been elevated in the past. He had some peripheral edema that resolved but recent PND or orthopnea. He was in correction until early this month. He has not been always compliant with his medication. He presented in December 2020 with an acute myocardial infarction. Underwent cardiac catheterization that showed total occlusion of the mid LAD and proximal RCA with collaterals from the left system to the RCA and mild to moderate disease in the left circumflex. He underwent stenting of the mid LAD and was found to have chronic occlusion of the distal LAD. His most recent echocardiogram in October showed an ejection fraction of 30-35% with moderate mitral and [id number] tricuspid regurgitation. He was admitted earlier this month with exacerbation of CHF with reduced ejection fraction. On presentation he was in atrial fibrillation with rapid ventricular response he has been maintained on IV Cardizem and IV heparin. His NT proBNP was 7520. His troponin mildly elevated but predominantly flat. He has a history of chronic tobacco use. Medications: Zestril 2.5 mg daily, Lopressor 25 mg twice a day, Lasix 40 mg daily, Cymbalta, aspirin, Lipitor 80 mg daily 11/13 Patient seen and examined. Hemoglobin 10.5, platelets 188, creatinine stable at 0.8 however increase from prior 0.5. Patient was restarted on heart failure regimen however blood pressures very borderline 80s over 40s and 50s. He denies any actual lightheadedness however appears fatigued and states he feels weak. He has been on IV Lasix however does not appear to have significant edema and these will be discontinued today. 11/14 He is out of bed to chair, feels better today, states that he is eating a little better today. He is currently in sinus rhythm. Creatinine 0.96. Physical Examination: Vitals reviewed Head: Normocephalic. Eyes: Sclerae nonicteric. Neck: Good carotid upstroke, no bruit, no jugular venous distention. Lungs: Decreased breath sounds bilaterally Heart: Irregular rate and rhythm, S1-S2, no S3, no rub. Systolic ejection murmur. Abdomen: Soft nontender, positive bowel sounds no organomegaly. Extremities: No edema, intact distal pulses. Impression: 1. Symptoms of progressive dyspnea was combination of CHF and probable COPD 2. Atrial fibrillation, paroxysmal with rapid ventricular response. His score is 2. The patient is not a good candidate for anticoagulation at this time on the [facility] because of the history of severe alcohol intake and noncompliance 3. Troponin elevation appears to be chronic and probably represent type II myocardial infarction 4. History of stenting of the LAD and chronic occlusion of the RCA 5. Severe cardiomyopathy 6. Chronic alcohol intake 7. Chronic tobacco use 8. Anemia 9. History of depression and suicidal ideation Plan: Creatinine increased to 0.96. Given hypotension we will hold lisinopril, spironolactone and Lasix. Continue metoprolol for now. Optimize heart failure regimen is able. Monitor heart rates on beta deepa. We will plan for heart catheterization to evaluated for bloackages tomorrow 11/15. Further recs post cath. NPO after midnight. Objective - Vital Signs Vital signs: Vital Signs Temp 97.8 F 11/14/22 09:00 Pulse 87 11/14/22 16:10 Resp 18 11/14/22 16:10 BP 85/63 11/14/22 16:10 Pulse Ox 95 11/14/22 16:10 FiO2 Intake & Output 11/14/22 11/14/22 11/15/22 06:59 18:59 06:59 Intake Total 540 2650.000 Balance 540 2650.000 Intake: Intake, IV Titration 250.000 Amount Heparin Sod,Pork in 0.45% 250.000 NaCl 25,000 unit In 0.45 % NaCl 1 250ml.bag @ 12 UNITS/KG/HR 8.655 mls/hr IV .Q24H [facility] Rx#: [id number] Oral 540 2400 Other: Voiding Method Urinal Urinal Diaper Diaper # Voids 2 2 - Labs CBC & Chem 7: 11/14/22 08:57 11/14/22 08:57 Labs: Abnormal Lab Results - Last 24 Hours (Table) 04/24/23 04/25/23 04/25/23 Range/Units 20:20 06:05 08:57 RBC 4.09 L (4.30-5.90) m/uL Hgb 10.0 L (13.0-17.5) gm/dL Hct 34.3 L (39.0-53.0) % MCH 24.4 L (25.0-35.0) pg MCHC 29.1 L (31.0-37.0) g/dL RDW 22.8 H (11.5-15.5) % Plt Count 142 L (150-450) k/uL APTT (22.0-30.0) sec Sodium (137-145) mmol/L BUN (9-20) mg/dL Glucose (74-99) mg/dL POC Glucose (mg/dL) 141 H 132 H (70-110) mg/dL Calcium (8.4-10.2) mg/dL Total Bilirubin (0.2-1.3) mg/dL AST (17-59) U/L ALT (4-49) U/L Alkaline Phosphatase (38-126) U/L Albumin (3.5-5.0) g/dL 11/14/22 11/14/22 11/14/22 Range/Units 08:57 08:57 16:07 RBC (4.30-5.90) m/uL Hgb (13.0-17.5) gm/dL Hct (39.0-53.0) % MCH (25.0-35.0) pg MCHC (31.0-37.0) g/dL RDW (11.5-15.5) % Plt Count (150-450) k/uL APTT 67.5 H (22.0-30.0) sec Sodium 132 L (137-145) mmol/L BUN 40 H (9-20) mg/dL Glucose 124 H (74-99) mg/dL POC Glucose (mg/dL) 134 H (70-110) mg/dL Calcium 8.3 L (8.4-10.2) mg/dL Total Bilirubin 2.4 H (0.2-1.3) mg/dL AST 1587 H (17-59) U/L ALT 335 H (4-49) U/L Alkaline Phosphatase 180 H (38-126) U/L Albumin 3.3 L (3.5-5.0) g/dL
[2022-11-14] MEDS ORDERED: NITROGLYCERIN SL TABS 0.4 MG TAB SUBLINGUAL PRN (20:03)
[2022-11-14] MEDS: MELATONIN 5 MG TABLET PO SCH (20:09)
[2022-11-14] MEDS: DULoxetine HCL 60 MG CAPSULE.DR PO SCH (20:09)
[2022-11-14] MEDS: ATORVASTATIN 80 MG TAB PO SCH (20:09)
[2022-11-14 20:18] LABS: Glucose,Whole Blood 123 mg/dL (70-110)
[2022-11-15 06:16] LABS: Glucose,Whole Blood 125 mg/dL (70-110)
[2022-11-15] MEDS: INSULIN ASPART (NovoLOG) 100 UNIT/ML VIAL SQ SCH ×4 (06:17→19:57)
[2022-11-15] MEDS ORDERED: HEPARIN SODIUM,PORCINE 10,000 UNIT in SODIUM CHLORIDE 0.9% 1,000 ML IRRIGATION PRN (07:00)
[2022-11-15] MEDS ORDERED: HEPARIN SODIUM,PORCINE 2,500 UNIT in SODIUM CHLORIDE 0.9% 250 ML IRRIGATION PRN (07:00)
[2022-11-15] MEDS: ARIPiprazole 10 MG TAB PO SCH (08:56)
[2022-11-15] MEDS: METOPROLOL TARTRATE 25 MG TAB PO SCH ×2 (08:56→19:56)
[2022-11-15] MEDS: THIAMINE 100 MG TAB PO SCH (08:56)
[2022-11-15] MEDS: busPIRone HCl 10 MG TAB PO SCH ×3 (08:56→19:56)
[2022-11-15] MEDS: ASPIRIN 81 MG PO SCH (08:56)
[2022-11-15] MEDS: FOLIC ACID 1 MG TAB PO SCH (08:56)
--- NOTE | 2022-11-15 09:10 | P.PN ---
Subjective The patient is a 57-year-old male with a known history of coronary disease, ischemic cardiomyopathy, paroxysmal atrial fibrillation who presents to the emergency room with symptoms of progressive dyspnea, fatigue and chest discomfort. And fortunately the patient has a history of heavy alcohol intake and has been drinking recently. He was noted to be in atrial fibrillation on presentation which has been paroxysmal in the past. He has been complaining of chest discomfort at times exertional. His troponin is mildly elevated but has been elevated in the past. He had some peripheral edema that resolved but recent PND or orthopnea. He was in senior care until early this month. He has not been always compliant with his medication. He presented in December 2020 with an acute myocardial infarction. Underwent cardiac catheterization that showed tot al occlusion of the mid LAD and proximal RCA with collaterals from the left system to the RCA and mild to moderate disease in the left circumflex. He underwent stenting of the mid LAD and was found to have chronic occlusion of the distal LAD. His most recent echocardiogram in October showed an ejection fraction of 30-35% with moderate mitral and [id number] tricuspid regurgitation. He was admitted earlier this month with exacerbation of CHF with reduced ejection fraction. On presentation he was in atrial fibrillation with rapid ventricular response he has been maintained on IV Cardizem and IV heparin. His NT proBNP was 7520. His troponin mildly elevated but predominantly flat. He has a history of chronic tobacco use. Medications: Zestril 2.5 mg daily, Lopressor 25 mg twice a day, Lasix 40 mg daily, Cymbalta, aspirin, Lipitor 80 mg daily 11/13 Patient seen and examined. Hemoglobin 10.5, platelets 188, creatinine stable at 0.8 however increase from prior 0.5. Patient was restarted on heart failure regimen however blood pressures very borderline 80s over 40s and 50s. He denies any actual lightheadedness however appears fatigued and states he feels weak. He has been on IV Lasix however does not appear to have significant edema and these will be discontinued today. 11/14 He is out of bed to chair, feels better today, states that he is eating a little better today. He is currently in sinus rhythm. Creatinine 0.96. 11/15 Patient seen and examined. Further discussion with patient as well as Dr. Dunlap and he does have chronic CAD with prior cardiomyopathy. Continue medical therapy and follow-up outpatient. No current need for catheterization and unclear patient is good interventional candidate. He denies any chest pain or pressure and states he feels much better. Blood pressure still borderline on the metoprolol however no lightheadedness or dizziness. He has been eating and drinking okay. Physical Examination: Vitals reviewed Head: Normocephalic. Eyes: Sclerae nonicteric. Neck: Good carotid upstroke, no bruit, no jugular venous distention. Lungs: Decreased breath sounds bilaterally Heart: Irregular rate and rhythm, S1-S2, no S3, no rub. Systolic ejection murmur. Abdomen: Soft nontender, positive bowel sounds no organomegaly. Extremities: No edema, intact distal pulses. Impression: 1. Symptoms of progressive dyspnea was combination of CHF and probable COPD 2. Atrial fibrillation, paroxysmal with rapid ventricular response. His score is 2. The patient is not a good candidate for anticoagulation at this time on the [facility] because of the history of severe alcohol intake and noncompliance 3. Troponin elevation appears to be chronic and probably represent type II myocardial infarction 4. History of stenting of the LAD and chronic occlusion of the RCA 5. Severe cardiomyopathy 6. Chronic alcohol intake 7. Chronic tobacco use 8. Anemia 9. History of depression and suicidal ideation 10. Eleavted liver enzymes, questionable shock liver vs other Plan: Patient appears relatively stable from a heart failure standpoint. Does not appear volume overloaded. His shortness breath has improved and his lethargy and hypotension also improved. Patient can only tolerate low-dose of heart failure regimen and continue with metoprolol. Appears stable from a cardiology standpoint for discharge. Follow-up outpatient. Objective - Vital Signs Vital signs: Vital Signs Temp 97.7 F 11/14/22 20:07 Pulse 87 11/15/22 03:32 Resp 15 11/15/22 03:32 BP 89/67 11/15/22 03:32 Pulse Ox 96 11/15/22 03:32 FiO2 Intake & Output 11/14/22 11/15/22 11/15/22 18:59 06:59 18:59 Intake Total 2650.000 Output Total 500 Balance 2650.000 -500 Intake: Intake, IV Titration 250.000 Amount Heparin Sod,Pork in 0.45% 250.000 NaCl 25,000 unit In 0.45 % NaCl 1 250ml.bag @ 12 UNITS/KG/HR 8.655 mls/hr IV .Q24H [facility] Rx#: [id number] Oral 2400 Output: Urine 500 Other: Voiding Method Urinal Urinal Diaper Diaper # Voids 2 1 - Labs CBC & Chem 7: 11/14/22 08:57 11/14/22 08:57 Labs: Abnormal Lab Results - Last 24 Hours (Table) 11/14/22 11/14/22 11/14/22 Range/Units 08:57 08:57 08:57 RBC 4.09 L (4.30-5.90) m/uL Hgb 10.0 L (13.0-17.5) gm/dL Hct 34.3 L (39.0-53.0) % MCH 24.4 L (25.0-35.0) pg MCHC 29.1 L (31.0-37.0) g/dL RDW 22.8 H (11.5-15.5) % Plt Count 142 L (150-450) k/uL APTT 67.5 H (22.0-30.0) sec Sodium 132 L (137-145) mmol/L BUN 40 H (9-20) mg/dL Glucose 124 H (74-99) mg/dL POC Glucose (mg/dL) (70-110) mg/dL Calcium 8.3 L (8.4-10.2) mg/dL Total Bilirubin 2.4 H (0.2-1.3) mg/dL AST 1587 H (17-59) U/L ALT 335 H (4-49) U/L Alkaline Phosphatase 180 H (38-126) U/L Albumin 3.3 L (3.5-5.0) g/dL 11/14/22 11/14/22 11/15/22 Range/Units 16:07 20:16 06:13 RBC (4.30-5.90) m/uL Hgb (13.0-17.5) gm/dL Hct (39.0-53.0) % MCH (25.0-35.0) pg MCHC (31.0-37.0) g/dL RDW (11.5-15.5) % Plt Count (150-450) k/uL APTT (22.0-30.0) sec Sodium (137-145) mmol/L BUN (9-20) mg/dL Glucose (74-99) mg/dL POC Glucose (mg/dL) 134 H 123 H 125 H (70-110) mg/dL Calcium (8.4-10.2) mg/dL Total Bilirubin (0.2-1.3) mg/dL AST (17-59) U/L ALT (4-49) U/L Alkaline Phosphatase (38-126) U/L Albumin (3.5-5.0) g/dL
[2022-11-15 11:39] LABS: Glucose,Whole Blood 180 mg/dL (70-110)
[2022-11-15 12:46] LABS: Anisocytosis Moderate; HCT 31.8 % (39.0-53.0); HGB 9.6 gm/dL (13.0-17.5); Hypochromasia Marked; MCH 25.4 pg (25.0-35.0); MCHC 30.2 g/dL (31.0-37.0); MCV 84.1 fL (80.0-100.0); Mean Platelet Volume 8.4; Microcytosis Slight; Platelet Count 136 k/uL (150-450); RBC 3.79 m/uL (4.30-5.90); RDW 23.1 % (11.5-15.5); WBC 7.1 k/uL (3.8-10.6)
[2022-11-15 12:58] LABS: ALT 375 U/L (4-49); African American GFR (CKD) >90 (>60 ml/min/1.73 sqM); Albumin 3.2 g/dL (3.5-5.0); Alkaline Phosphatase 284 U/L (38-126); Anion Gap 8 mmol/L; Blood Urea Nitrogen 37 mg/dL (9-20); Carbon Dioxide 24 mmol/L (22-30); Chloride 99 mmol/L (98-107); Glucose 125 mg/dL (74-99); Magnesium 1.8 mg/dL (1.6-2.3); Non-African American GFR(CKD) >90 (>60 ml/min/1.73 sqM); Potassium 4.1 mmol/L (3.5-5.1); Sodium 131 mmol/L (137-145); Total Protein 6.3 g/dL (6.3-8.2)
[2022-11-15 13:05] LABS: AST 1100 U/L (17-59)
--- NOTE | 2022-11-15 13:46 | P.PN ---
Subjective Progress Note Date: 11/15/22 Patient is a 57-year-old male with known paroxysmal atrial fibrillation, ischemic cardiomyopathy with chronic systolic congestive heart failure ejection fraction 30%, coronary artery disease, and alcohol dependency who presented with weakness and palpitations. In the ER he underwent extensive evaluation. On arrival his heart rate was 124 and blood pressure was 93/58. Initial laboratory analysis was remarkable for hemoglobin of 10.6, potassium 3.3, troponin 0.455, and BNP approximately 7000. Chest x-ray showed no acute process and EKG confirmed atrial fibrillation with rapid ventricular response. Patient was started on IV Cardizem and heparin. Is admitted to the telemetry unit for further monitoring. Cardiology was consulted. Patient was transitioned from IV Cardizem to metoprolol. He is considered high risk for anticoagulation secondary to history of alcohol dependency and noncompliance. He was seen by psychiatry for depression but did not meet requirements for inpatient admission. Patient seen and examined at bedside. He is feeling much better than at admissi on, he denies any nausea, vomiting, abdominal pain. He reports his coughing and shortness of breath improving. Vital signs reviewed General: nontoxic, no distress, appears at stated age Cardiovascular: S1S2 reg, no murmur, positive posterior tibial pulse bilateral, Lungs: Decreased bs bilateral, no rhonchi, no rales , no accessory muscle use Abdominal: soft, nontender to palpation, no guarding, no appreciable organomegaly Ext: no gross muscle atrophy, no edema, no contractures Neuro: CN II-XI grossly intact, no focal neuro deficits Psych: Awake, oriented, appropriate affect Assessment: Atrial fibrillation with rapid ventricular response Hypotension - likly medication induced Thrombocytopenia -need to monitor closely the given need for IV heparin at this time, has not fallen by greater than one half Transaminitis, suspect ischemic hepatitis secondary to low blood pressures Type II myocardial infarction secondary to A. fib with RVR Acute on Chronic systolic congestive heart failure, EF 30-35 % Depression with suicidal ideation Acute alcohol intoxication and dependence a known alcoholic Pre-diabetes Resolved: Hypokalemia Hyperglcemia Chronic: Coronary artery disease, COPD not in exacerbation, nicotine dependency Imaging: None new Data Review: Vitals reviewed from this morning temperature 97.4, pulse 89, pressure 102/68, O2 sat 99% on room air No labs were available at the time I initially saw the patient. However labs resulted in remarkable for hemoglobin 9.6 (stable from 10 yesterday), platelets 136, sodium 131, BUN 37, creatinine 0.87, total bilirubin 2, AST 1100 (down from 1587), ALT 375 Plan: -Recheck liver enzymes, check liver ultrasound and gallbladder. Patient was told to remain nothing by mouth until those are available. -Case discussed with cardiology will continue with metoprolol. Would benefit from optimized heart failure regimen however patient does not have blood pressure to tolerate JUAN inhibitor, spironolactone, diuretic therapy, or SGLT2 at this time. -Continue with aspirin 81 mg daily, Lipitor 80 mg daily - Metoprolol to 25 mg twice daily - Had a long discussion with patient and he will go to Sub acute rehab on discharge and he will consider trying naltrexone - Completed librium di, CIWA, thiamine 100 mg dialy, and folic acid 1 mg daily r - SSI, sugar well controlled - [facility] has signed off - On heparin gtt. DVT prophylaxis: Heparin gtt Discussed with: Social work: SNF on discharge Anticipated discharge date: In 2-[address]: D/W social work--SNF (if able to find an accepting facility, if improves significantly then inpatient substance rehab) This dictation was prepared using [employer] voice recognition software. [facility] every attempt is made to correct errors during during dictation some may still exist. Objective - Vital Signs Vital signs: Vital Signs Temp 97.4 F L 11/15/22 12:25 Pulse 81 11/15/22 12:25 Resp 16 11/15/22 12:25 BP 92/65 11/15/22 12:25 Pulse Ox 100 11/15/22 12:25 FiO2 Intake & Output 11/14/22 11/15/22 11/15/22 18:59 06:59 18:59 Intake Total 2650.000 118 Output Total 500 Balance 2650.000 -500 118 Intake: Intake, IV Titration 250.000 Amount Heparin Sod,Pork in 0.45% 250.000 NaCl 25,000 unit In 0.45 % NaCl 1 250ml.bag @ 12 UNITS/KG/HR 8.655 mls/hr IV .Q24H ROLA Rx#: [id number] Oral 2400 118 Output: Urine 500 Other: Voiding Method Urinal Urinal Urinal Diaper Diaper Diaper # Voids 2 1 - Labs CBC & Chem 7: 11/15/22 12:19 11/15/22 12:19 Labs: Abnormal Lab Results - Last 24 Hours (Table) 11/14/22 11/14/22 11/14/22 Range/Units 08:57 16:07 20:16 RBC (4.30-5.90) m/uL Hgb (13.0-17.5) gm/dL Hct (39.0-53.0) % MCHC (31.0-37.0) g/dL RDW (11.5-15.5) % Plt Count (150-450) k/uL APTT (22.0-30.0) sec Sodium (137-145) mmol/L BUN (9-20) mg/dL Glucose (74-99) mg/dL POC Glucose (mg/dL) 134 H 123 H (70-110) mg/dL Calcium (8.4-10.2) mg/dL Total Bilirubin (0.2-1.3) mg/dL AST 1587 H (17-59) U/L ALT (4-49) U/L Alkaline Phosphatase (38-126) U/L Albumin (3.5-5.0) g/dL 11/15/22 11/15/22 11/15/22 Range/Units 06:13 11:37 12:19 RBC 3.79 L (4.30-5.90) m/uL Hgb 9.6 L (13.0-17.5) gm/dL Hct 31.8 L (39.0-53.0) % MCHC 30.2 L (31.0-37.0) g/dL RDW 23.1 H (11.5-15.5) % Plt Count 136 L (150-450) k/uL APTT (22.0-30.0) sec Sodium (137-145) mmol/L BUN (9-20) mg/dL Glucose (74-99) mg/dL POC Glucose (mg/dL) 125 H 180 H (70-110) mg/dL Calcium (8.4-10.2) mg/dL Total Bilirubin (0.2-1.3) mg/dL AST (17-59) U/L ALT (4-49) U/L Alkaline Phosphatase (38-126) U/L Albumin (3.5-5.0) g/dL 11/15/22 11/15/22 Range/Units 12:19 12:19 RBC (4.30-5.90) m/uL Hgb (13.0-17.5) gm/dL Hct (39.0-53.0) % MCHC (31.0-37.0) g/dL RDW (11.5-15.5) % Plt Count (150-450) k/uL APTT 68.3 H (22.0-30.0) sec Sodium 131 L (137-145) mmol/L BUN 37 H (9-20) mg/dL Glucose 125 H (74-99) mg/dL POC Glucose (mg/dL) (70-110) mg/dL Calcium 8.0 L (8.4-10.2) mg/dL Total Bilirubin 2.0 H (0.2-1.3) mg/dL AST 1100 H (17-59) U/L ALT 375 H (4-49) U/L Alkaline Phosphatase 284 H (38-126) U/L Albumin 3.2 L (3.5-5.0) g/dL
[2022-11-15 16:12] LABS: Glucose,Whole Blood 118 mg/dL (70-110)
--- NOTE | 2022-11-15 17:12 | US ---
EXAMINATION TYPE: US liver DATE OF EXAM: 11/15/2022 COMPARISON: CT 10/25/2022. CLINICAL INDICATION: Male, 57 years old with history of gallstone, transaminitis, ETOH abuse; CT show ed gallstones. Portable ultrasound. Patient unable to wake up during exam for position change. TECHNIQUE: Multiple sonographic images of the right upper quadrant are obtained. FINDINGS: EXAM MEASUREMENTS: Liver Length: 21.5 cm Gallbladder Wall: 0.2 cm CBD: 0.5 cm Right Kidney: 12.3 x 7.0 x 5.0 cm [employer] NOTES: Suboptimal due to patient position Pancreas: Obscured by bowel gas Liver: Enlarged in size. Coarse. Heterogenous and lobular. Main portal vein - 2.4 cm. Gallbladder: Multiple stones seen. LLD images taken due to patient unable to move. Two echogenic f oci seen in left lobe of liver = 0.7 cm and 0.4 cm which are compatible with desiccation seen on prio r CT. Evidence for sonographic Jiménez's sign: neg CBD: wnl in size, limited visualization Right Kidney: Upper pole cortical anechoic appearing lesion = 1.1 x 0.9 x 1.1 cm, suboptimal visuali zation due to patient breathing. Lower pole echogenic focus with shadow - 0.8 x 0.6 cm. Small amount of free fluid seen adjacent to liver IMPRESSION: 1. Coarsened nodular contour compatible with cirrhosis. 2. Cholelithiasis.
[2022-11-15 19:53] LABS: Glucose,Whole Blood 168 mg/dL (70-110)
[2022-11-15] MEDS: MELATONIN 5 MG TABLET PO SCH (19:57)
[2022-11-15] MEDS: ATORVASTATIN 80 MG TAB PO SCH (19:57)
[2022-11-15] MEDS: DULoxetine HCL 60 MG CAPSULE.DR PO SCH (19:57)
[2022-11-16 06:05] LABS: Glucose,Whole Blood 106 mg/dL (70-110)
[2022-11-16] MEDS: INSULIN ASPART (NovoLOG) 100 UNIT/ML VIAL SQ SCH ×4 (06:15→20:53)
[2022-11-16] MEDS: METOPROLOL TARTRATE 25 MG TAB PO SCH ×2 (08:31→21:04)
[2022-11-16] MEDS: ARIPiprazole 10 MG TAB PO SCH (08:31)
[2022-11-16] MEDS: FOLIC ACID 1 MG TAB PO SCH (08:31)
[2022-11-16] MEDS: ASPIRIN 81 MG PO SCH (08:31)
[2022-11-16] MEDS: busPIRone HCl 10 MG TAB PO SCH ×3 (08:31→21:04)
[2022-11-16] MEDS: THIAMINE 100 MG TAB PO SCH (08:31)
[2022-11-16 08:47] LABS: Anisocytosis Moderate; HCT 28.3 % (39.0-53.0); HGB 8.5 gm/dL (13.0-17.5); Hypochromasia Marked; MCH 25.3 pg (25.0-35.0); MCHC 29.9 g/dL (31.0-37.0); MCV 84.7 fL (80.0-100.0); Mean Platelet Volume 9.3; Microcytosis Slight; Platelet Count 122 k/uL (150-450); RBC 3.34 m/uL (4.30-5.90); RDW 23.5 % (11.5-15.5); WBC 5.2 k/uL (3.8-10.6)
[2022-11-16 09:26] LABS: ALT 308 U/L (4-49); AST 640 U/L (17-59); African American GFR (CKD) >90 (>60 ml/min/1.73 sqM); Albumin 2.7 g/dL (3.5-5.0); Alkaline Phosphatase 239 U/L (38-126); Anion Gap 10 mmol/L; Blood Urea Nitrogen 23 mg/dL (9-20); Calcium 7.8 mg/dL (8.4-10.2); Carbon Dioxide 22 mmol/L (22-30); Chloride 100 mmol/L (98-107); Glucose 93 mg/dL (74-99); Non-African American GFR(CKD) >90 (>60 ml/min/1.73 sqM); Potassium 3.6 mmol/L (3.5-5.1); Sodium 132 mmol/L (137-145); Total Bilirubin 1.4 mg/dL (0.2-1.3); Total Protein 5.7 g/dL (6.3-8.2)
[2022-11-16 10:14] LABS: Lymphocytes # (M) 1.35 k/uL (1.0-4.8); Monocytes # (M) 0.26 k/uL (0-1.0); Neutrophils # (M) 3.59 k/uL (1.3-7.7); Neutrophils % (M) 69 %; Nucleated Red Blood Cells 0 /100 WBC (0-0); Total Cells Counted 100
[2022-11-16 10:17] LABS: Poikilocytosis (M) Present
[2022-11-16 11:27] LABS: Glucose,Whole Blood 203 mg/dL (70-110)
[2022-11-16] MEDS: ALBUTEROL NEBULIZED 2.5 MG/3 ML INHALATION PRN (12:14)
--- NOTE | 2022-11-16 13:09 | P.PN ---
Subjective Progress Note Date: 11/16/22 Hospital Course: 57-year-old male with known paroxysmal atrial fibrillation, ischemic ca rdiomyopathy with chronic systolic congestive heart failure ejection fraction 30%, coronary artery disease, and alcohol dependency who presented with weakness and palpitations. In the ER he underwent extensive evaluation. On arrival his heart rate was 124 and blood pressure was 93/58. Initial laboratory analysis was remarkable for hemoglobin of 10.6, potassium 3.3, troponin 0.455, and BNP approximately 7000. Chest x-ray showed no acute process and EKG confirmed atrial fibrillation with rapid ventricular response. Patient was started on IV Cardizem and heparin. Is admitted to the telemetry unit for further monitoring. Cardiology was consulted. Patient was transitioned from IV Cardizem to metoprolol. He is considered high risk for anticoagulation secondary to history of alcohol dependency and noncompliance. He was seen by psychiatry for depression but did not meet requirements for inpatient admission. Due to persistent hypotension, patient had possible ischemic hepatitis. Liver ultrasound consistent with cirrhosis. Patient pending discharge to rehab facility. Subjective: Patient seen and examined at bedside. No acute events overnight. He denies any chest pain, shortness of breath, abdominal pain, nausea, vomiting, diarrhea, constipation, or urinary complaints. Still having difficulty with his balance Pertinent positives and negatives as discussed above, a complete review of systems was performed and all other systems are negative. Vitals Signs Reviewed. General: nontoxic, no distress, appears at stated age Derm: warm, dry Head: atraumatic, normocephalic, symmetric Eyes: EOMI, no lid lag, anicteric sclera Mouth: no lip lesion, mucus membranes moist Cardiovascular: S1S2 reg, no murmur Lungs: CTA bilateral, no rhonchi, no rales , no accessory muscle use Abdominal: soft, nontender to palpation, no guarding, no appreciable organomegaly Ext: no gross muscle atrophy, no edema, no contractures Neuro: CN II-XI grossly intact, no focal neuro deficits Psych: Alert, oriented, appropriate affect Data Reviewed Today: Pertinent Labs: WBC 5.2, hemoglobin 8.5, platelet 122, sodium 132, creatinine 0.59, AST 640, BPB320, ALP 239, total bilirubin 1.4 Liver ultrasound report reviewed shows possible cirrhosis, and cholelithiasis Assessment and Plan: Atrial fibrillation with rapid ventricular response, now rate controlled Hypotension -in the setting of medications, systolic heart failure, and cirrhosis Thrombocytopenia, likely in the setting of cirrhosis Type II myocardial infarction secondary to A. fib with RVR Acute on Chronic systolic congestive heart failure, EF 30-35 % Acute Transaminitis, suspect ischemic hepatitis, improving Acute alcohol intoxication and dependence in known alcoholic Depression with suicidal ideation Pre-diabetes -Cardiology following, patient on metoprolol 25 twice a day, Would benefit from optimized heart failure regimen however patient does not have blood pressure to tolerate JUAN inhibitor, spironolactone, diuretic therapy, or SGLT2 at this time. -Continue with aspirin 81 mg daily, Lipitor 80 mg daily -Transaminases down trending, liver ultrasound shows possible cirrhosis, currently compensated, will likely need outpatient GI follow-up -Counseled regarding alcohol cessation - Completed librium di, CIWA, IV Ativan as needed, thiamine 100 mg dialy, and folic acid 1 mg daily - SSI, sugar well controlled - Pscy has signed off Resolved: Hypokalemia Hyperglcemia Chronic: Coronary artery disease, COPD not in exacerbation, nicotine dependency DVT ppx: Subcu heparin Code status: Full code Anticipated discharge place: Subacute rehab, pending bed availability Anticipated discharge time: Pending bed availability Objective - Vital Signs Vital signs: Vital Signs Temp 98.1 F 11/16/22 11:48 Pulse 80 11/16/22 12:25 Resp 18 11/16/22 12:25 BP 94/61 11/16/22 11:48 Pulse Ox 99 11/16/22 11:48 FiO2 Intake & Output 11/15/22 11/16/22 11/16/22 18:59 06:59 18:59 Intake Total 476 Output Total 500 400 300 Balance -24 -400 -300 Weight 63.6 kg Intake: Oral 476 Output: Urine 500 400 300 Other: Voiding Method Urinal Urinal Urinal Diaper Diaper Diaper # Voids 1 # Bowel Movements 1 - Labs CBC & Chem 7: 11/16/22 08:17 11/16/22 08:17 Labs: Abnormal Lab Results - Last 24 Hours (Table) 11/15/22 11/15/22 11/16/22 Range/Units 16:11 19:52 08:17 RBC 3.34 L (4.30-5.90) m/uL Hgb 8.5 L (13.0-17.5) gm/dL Hct 28.3 L (39.0-53.0) % MCHC 29.9 L (31.0-37.0) g/dL RDW 23.5 H (11.5-15.5) % Plt Count 122 L (150-450) k/uL Sodium (137-145) mmol/L BUN (9-20) mg/dL Creatinine (0.66-1.25) mg/dL POC Glucose (mg/dL) 118 H 168 H (70-110) mg/dL Calcium (8.4-10.2) mg/dL Total Bilirubin (0.2-1.3) mg/dL AST (17-59) U/L ALT (4-49) U/L Alkaline Phosphatase (38-126) U/L Total Protein (6.3-8.2) g/dL Albumin (3.5-5.0) g/dL 11/16/22 11/16/22 Range/Units 08:17 11:23 RBC (4.30-5.90) m/uL Hgb (13.0-17.5) gm/dL Hct (39.0-53.0) % MCHC (31.0-37.0) g/dL RDW (11.5-15.5) % Plt Count (150-450) k/uL Sodium 132 L (137-145) mmol/L BUN 23 H (9-20) mg/dL Creatinine 0.59 L (0.66-1.25) mg/dL POC Glucose (mg/dL) 203 H (70-110) mg/dL Calcium 7.8 L (8.4-10.2) mg/dL Total Bilirubin 1.4 H (0.2-1.3) mg/dL AST 640 H (17-59) U/L ALT 308 H (4-49) U/L Alkaline Phosphatase 239 H (38-126) U/L Total Protein 5.7 L (6.3-8.2) g/dL Albumin 2.7 L (3.5-5.0) g/dL
[2022-11-16 16:23] LABS: Glucose,Whole Blood 113 mg/dL (70-110)
[2022-11-16 20:18] LABS: Glucose,Whole Blood 139 mg/dL (70-110)
[2022-11-16] MEDS: MELATONIN 5 MG TABLET PO SCH (21:04)
[2022-11-16] MEDS: ATORVASTATIN 80 MG TAB PO SCH (21:04)
[2022-11-16] MEDS: DULoxetine HCL 60 MG CAPSULE.DR PO SCH (21:04)
[2022-11-17 06:14] LABS: Glucose,Whole Blood 117 mg/dL (70-110)
[2022-11-17] MEDS: INSULIN ASPART (NovoLOG) 100 UNIT/ML VIAL SQ SCH ×2 (06:15→12:02)
[2022-11-17 07:48] VITALS: RESP 20
[2022-11-17] MEDS: ARIPiprazole 10 MG TAB PO SCH (08:19)
[2022-11-17] MEDS: ASPIRIN 81 MG PO SCH (08:19)
[2022-11-17] MEDS: METOPROLOL TARTRATE 25 MG TAB PO SCH (08:19)
[2022-11-17] MEDS: busPIRone HCl 10 MG TAB PO SCH (08:20)
[2022-11-17] MEDS: FOLIC ACID 1 MG TAB PO SCH (08:20)
[2022-11-17] MEDS: THIAMINE 100 MG TAB PO SCH (08:20)
[2022-11-17 10:39] LABS: ALT 237 U/L (4-49); AST 432 U/L (17-59); African American GFR (CKD) >90 (>60 ml/min/1.73 sqM); Albumin 2.7 g/dL (3.5-5.0); Alkaline Phosphatase 219 U/L (38-126); Anion Gap 10 mmol/L; Blood Urea Nitrogen 18 mg/dL (9-20); Calcium 7.8 mg/dL (8.4-10.2); Carbon Dioxide 23 mmol/L (22-30); Chloride 101 mmol/L (98-107); Glucose 195 mg/dL (74-99); Non-African American GFR(CKD) >90 (>60 ml/min/1.73 sqM); Potassium 3.5 mmol/L (3.5-5.1); Sodium 134 mmol/L (137-145); Total Protein 5.6 g/dL (6.3-8.2)
[2022-11-17 11:54] LABS: Glucose,Whole Blood 101 mg/dL (70-110)
[2022-11-17 12:01] VITALS: BP 80/58; PULSE 68; TEMP 97.7
--- NOTE | 2022-11-17 12:05 | P.DS ---
Providers Date of admission: 11/11/22 19:48 Expected date of discharge: 11/17/22 Attending physician: Sherley Galeas MD Consults: 11/11/22 22:50 Consult Physician Routine Consulting Provider: Evan Mosqueda Consult Reason/Comments: suicidal ideation Do you want consulting provider notified?: Yes, Notify in am Primary care physician: [facility] Course: Discharge Diagnosis: Atrial fibrillation with rapid ventricular response, now rate controlled Hypotension Thrombocytopenia Type II myocardial infarction secondary to A. fib with RVR Acute on Chronic systolic congestive heart failure, EF 30-35 % Acute Transaminitis, ischemic hepatitis Acute alcohol intoxication and dependence in known alcoholic New diagnosis of cirrhosis Depression with suicidal ideation Pre-diabetes Hypokalemia Hyperglcemia Hospital Course: 57-year-old male with known paroxysmal atrial fibrillation, ischemic cardiomyopathy with chronic systolic congestive heart failure ejection fraction 30%, coronary artery disease, and alcohol dependency who presented with weakness and palpitations. In the ER he underwent extensive evaluation. On arrival his heart rate was 124 and blood pressure was 93/58. Initial laboratory analysis was remarkable for hemoglobin of 10.6, potassium 3.3, troponin 0.455, and BNP approximately 7000. Chest x-ray showed no acute process and EKG confirmed atrial fibrillation with rapid ventricular response. Patient was started on IV Cardizem and heparin. Was admitted to the telemetry unit for further monitoring. Cardiology was consulted. Patient was transitioned from IV Cardizem to metoprolol. He is considered high risk for anticoagulation secondary to history of alcohol dependency and noncompliance. He completed lithium taper. He was seen by psychiatry for depression but did not meet requirements for inpatient admission. Due to persistent hypotension, patient had possible ischemic hepatitis. Liver ultrasound consistent with cirrhosis. Patient not able to tolerate goal directed medical therapy for systolic heart failure. His blood pressure does not allow for JUAN inhibitor, spironolactone, diuretic therapy, or SGL T2 inhibitor. Patient to be started on midodrine. Patient will need follow-up with cardiology and GI. Patient seen and examined at bedside. Vital signs reviewed and stable. General: nontoxic, no distress, appears older than at stated age Derm: warm, dry Head: atraumatic, normocephalic, symmetric Eyes: EOMI, no lid lag, anicteric sclera Mouth: no lip lesion, mucus membranes moist Cardiovascular: S1S2 reg, no murmur Lungs: CTA bilateral, no rhonchi, no rales , no accessory muscle use Abdominal: soft, nontender to palpation, no guarding, no appreciable organomegaly Ext: no gross muscle atrophy, no edema, no contractures Neuro: CN II-XI grossly intact, no focal neuro deficits Psych: Alert, oriented, appropriate affect A total of 33 minutes of time were spent preparing this complex discharge summary. Patient was discharged on 11/17/22 at 1205. Patient Condition at Discharge: Stable Plan - Discharge Summary Discharge Rx Participant: No New Discharge Prescriptions: New Aspirin 81 mg PO DAILY tab busPIRone HCl [Buspar] 20 mg PO TID tab Midodrine [ProAmatine] 5 mg PO AC-TID tab Thiamine [Vitamin B-1] 100 mg PO DAILY tab ARIPiprazole [Abilify] 10 mg PO DAILY tab Folic Acid 1 mg PO DAILY tab Acetaminophen Tab [Tylenol] 650 mg PO Q6HR PRN tab PRN Reason: Fever And/ Or Pain Continue Atorvastatin [Lipitor] 80 mg PO HS DULoxetine HCL [Cymbalta] 60 mg PO HS Metoprolol Tartrate [Lopressor] 25 mg PO BID Albuterol Nebulized [Ventolin Nebulized] 2.5 mg INHALATION RT-Q8H PRN PRN Reason: Shortness Of Breath Discontinued Aspirin EC [Ecotrin Low Dose] 81 mg PO HS lisinopriL [Zestril] 2.5 mg PO DAILY Furosemide [Lasix] 40 mg PO DAILY 30 Days #30 tab Discharge Medication List Atorvastatin [Lipitor] 80 mg PO HS 03/30/21 [History] DULoxetine HCL [Cymbalta] 60 mg PO HS 04/12/21 [History] Metoprolol Tartrate [Lopressor] 25 mg PO BID 04/12/21 [History] Albuterol Nebulized [Ventolin Nebulized] 2.5 mg INHALATION RT-Q8H PRN 10/25/22 [History] ARIPiprazole [Abilify] 10 mg PO DAILY tab 11/17/22 [Rx] Acetaminophen Tab [Tylenol] 650 mg PO Q6HR PRN tab 11/17/22 [Rx] Aspirin 81 mg PO DAILY tab 11/17/22 [Rx] Folic Acid 1 mg PO DAILY tab 11/17/22 [Rx] Midodrine [ProAmatine] 5 mg PO AC-TID tab 11/17/22 [Rx] Thiamine [Vitamin B-1] 100 mg PO DAILY tab 11/17/22 [Rx] busPIRone HCl [Buspar] 20 mg PO TID tab 11/17/22 [Rx] Follow up Appointment(s)/Referral(s): [facility] [Primary Care Provider] - 1-2 days Deondre Duenas DO [STAFF PHYSICIAN] - 1 Week Beryl Chaudhari MD [STAFF PHYSICIAN] - 1 Week Patient Instructions/Handouts: A-fib (Atrial Fibrillation) (DC), Abuse of Alcohol (DC), Cirrhosis (DC) Activity/Diet/Wound Care/Special Instructions: Please see your PCP, and also motorized squad sergeant and GI. Discharge Disposition: TRANSFER TO SNF/ECF
[2022-11-17 12:25] LABS: Anisocytosis Moderate; HCT 31.3 % (39.0-53.0); HGB 9.3 gm/dL (13.0-17.5); Hypochromasia Marked; MCH 25.7 pg (25.0-35.0); MCHC 29.9 g/dL (31.0-37.0); MCV 86.1 fL (80.0-100.0); Macrocytosis Slight; Microcytosis Slight; Platelet Count 121 k/uL (150-450); Poikilocytosis Slight; RBC 3.63 m/uL (4.30-5.90); RDW 23.5 % (11.5-15.5); WBC 5.8 k/uL (3.8-10.6)
[2022-11-17] MEDS ORDERED: MIDODRINE 5 MG TAB PO SCH (12:30)
[2022-11-17 15:06] LABS: Lymphocytes # (M) 1.16 k/uL (1.0-4.8); Monocytes # (M) 0.87 k/uL (0-1.0); Neutrophils # (M) 3.77 k/uL (1.3-7.7); Neutrophils % (M) 65 %; Nucleated Red Blood Cells 0 /100 WBC (0-0); Total Cells Counted 100
[2022-11-17 15:07] LABS: Crenated RBC Present
[2022-11-17 15:08] LABS: RBC Fragments Present
== END 2022-11-17 14:22 | DRG 280 ==
LOC: EC 17:09 → 3SCARD 19:48
PROVIDERS: ADMIT Internal Medicine; ATTEND Internal Medicine
DX: I48.0 Paroxysmal atrial fibrillation (principal); I21.A1 Myocardial infarction type 2; I50.23 Acute on chronic systolic (congestive) heart failure; R45.851 Suicidal ideations; F11.11 Opioid abuse, in remission; F12.11 Cannabis abuse, in remission; F17.210 Nicotine dependence, cigarettes, uncomplicated; F31.9 Bipolar disorder, unspecified; F43.10 Post-traumatic stress disorder, unspecified; I11.0 Hypertensive heart disease with heart failure; E86.0 Dehydration; G89.29 Other chronic pain; E87.6 Hypokalemia; I95.9 Hypotension, unspecified; L89.159 Pressure ulcer of sacral region, unspecified stage; D50.9 Iron deficiency anemia, unspecified; F10.229 Alcohol dependence with intoxication, unspecified; M54.2 Cervicalgia; R73.03 Prediabetes; J44.9 Chronic obstructive pulmonary disease, unspecified; K70.30 Alcoholic cirrhosis of liver without ascites; I25.82 Chronic total occlusion of coronary artery; I08.1 Rheumatic disorders of both mitral and tricuspid valves; I25.10 Atherosclerotic heart disease of native coronary artery without angina pectoris; I25.2 Old myocardial infarction; I25.5 Ischemic cardiomyopathy; M41.9 Scoliosis, unspecified; Y90.6 Blood alcohol level of 120-199 mg/100 ml; Z87.442 Personal history of urinary calculi; Z91.199 Patient's noncompliance with other medical treatment and regimen due to unspecified reason; Z98.84 Bariatric surgery status; Z79.82 Long term (current) use of aspirin; Z79.899 Other long term (current) drug therapy; Z82.49 Family history of ischemic heart disease and other diseases of the circulatory system; Z65.3 Problems related to other legal circumstances; Z95.5 Presence of coronary angioplasty implant and graft
CPT/HCPCS: 36415; 36600; 71045; 71046; 76705; 80048; 80053; 80061; 80306; 80320; 82075; 82140; 82805; 83036; 83690; 83735; 83880; 84484; 85025; 85027; 85379; 85610; 85730; 93005; 94640; 94760; 96361; 96365; 96366; 96367; 96368; 96375; 99291

== ENCOUNTER 2022-12-05 02:54 | Emergency (ER) | payer MEDICARE, OTHER ==
--- NOTE | 2022-12-05 03:55 | ED ---
General Adult HPI - General Chief complaint: Alcohol Stated complaint: ETOH,mental health Time Seen by Provider: 12/05/22 02:57 Source: patient Mode of arrival: EMS Limitations: no limitations - History of Present Illness Initial comments: This is a 57-year-old male with a past medical history including atrial fibrillation presents emergency department for palpitations via EMS. The patient stated that he felt these palpitations last for approximate 4 hours and because of the longevity of the symptoms he called EMS. The patient did state that his symptoms had resolved while with EMS on the way to the emergency department. The patient was apologetic for coming into the emergency department stating that he was feeling fine at the moment. The patient did report drinking relationship advisor tonight however was ANO 4 and able to answer all questions appropr iately. The patient was resting in bed comfortably without any further acute pain or distress noted. - Related Data Home Medications Medication Instructions Recorded Confirmed Atorvastatin [Lipitor] 80 mg PO HS 03/30/21 11/11/22 DULoxetine HCL [Cymbalta] 60 mg PO HS 04/12/21 11/11/22 Metoprolol Tartrate [Lopressor] 25 mg PO BID 04/12/21 11/11/22 Albuterol Nebulized [Ventolin 2.5 mg INHALATION RT-Q8H PRN 10/25/22 11/11/22 Nebulized] Previous Rx's Medication Instructions Recorded ARIPiprazole [Abilify] 10 mg PO DAILY tab 11/17/22 Acetaminophen Tab [Tylenol] 650 mg PO Q6HR PRN tab 11/17/22 Aspirin 81 mg PO DAILY tab 11/17/22 Folic Acid 1 mg PO DAILY tab 11/17/22 Midodrine [ProAmatine] 5 mg PO AC-TID tab 11/17/22 Thiamine [Vitamin B-1] 100 mg PO DAILY tab 11/17/22 busPIRone HCl [Buspar] 20 mg PO TID tab 11/17/22 Allergies Allergy/AdvReac Type Severity Reaction Status Date / Time No Known Allergies Allergy Verified 12/05/22 03:10 Review of Systems ROS Statement: Those systems with pertinent positive or pertinent negative responses have been documented in the HPI. ROS Other: All systems not noted in ROS Statement are negative. Past Medical History Past Medical History: COPD, GERD/Reflux, GI Bleed, Hypertension, Myocardial Infarction ([place]), Pneumonia, Skin Disorder Additional Past Medical History / Comment(s): ETOH abuse with delirium tremors, lower GI bleed, IBS, chronic iron deficiency anemia, hypomagnesemia, hyperbilirubinemia, anorexia, vertigo, nephrolithiasis-passed stone on his own, chronic low back/cervical pain, DDD, kyphosis, scoliosis, coccyx pressure ulcer pt states is mostly healed. Dry and itchy skin back in high school. 2 heart attacks, one in December (2020) second in February (2020). Last Myocardial Infarction Date:: February 2021 History of Any Multi-Drug Resistant Organisms: None Reported Past Surgical History: Bariatric Surgery, Heart Catheterization With Stent, Hernia Repair, Orthopedic Surgery, Tonsillectomy Additional Past Surgical History / Comment(s): Right inner Forearm-metal plate, gastric bypass, incisional hernia surgery x2, EGDs, colonoscopies. 2 Stents placed in December 2020. Past Anesthesia/Blood Transfusion Reactions: No Reported Reaction Date of Last Stent Placement:: 2020 Past Psychological History: Anxiety, Bipolar, Depression, PTSD Smoking Status: Current every day smoker Past Alcohol Use History: Abuse, Daily Past Drug Use History: None Reported - Past Family History Mother History Unknown: Yes Family Medical History: Hypertension Additional Family Medical History / Comment(s): Lupus. Mother is living. Father History Unknown: Yes Family Medical History: Liver Disease Additional Family Medical History / Comment(s): ETOH abuse. of cirrhosis complications. General Exam Limitations: no limitations General appearance: alert, in no apparent distress Head exam: Present: atraumatic, normocephalic, normal inspection Eye exam: Present: normal appearance, PERRL Pupils: Present: normal accommodation ENT exam: Present: normal exam, normal oropharynx, mucous membranes moist Neck exam: Present: normal inspection, full ROM Respiratory exam: Present: normal lung sounds bilaterally Cardiovascular Exam: Present: regular rate, normal rhythm, normal heart sounds GI/Abdominal exam: Present: soft, normal bowel sounds Extremities exam: Present: normal inspection, full ROM Back exam: Present: normal inspection, full ROM Neurological exam: Present: alert, oriented X3, CN II-XII intact Psychiatric exam: Present: normal affect, normal mood Skin exam: Present: warm, dry Course Vital Signs 12/05/22 03:10 Temperature 98.2 F Pulse Rate 104 H Respiratory 18 Rate Blood Pressure 98/67 O2 Sat by Pulse 98 Oximetry EKG Findings - EKG Comments: EKG Findings:: An EKG was obtained and was interpreted by myself showing a rate of 102, [place] interval 180, QS duration 94 and QTC of 418. This EKG showed a sinus tachycardia with out any ST segment elevation or depressions. Medical Decision Making - Medical Decision Making Was pt. sent in by a medical professional or institution (, [employer], CIGARETTE VENDOR, urgent care, hospital, or [facility]...) When possible be specific @ -No Did you speak to anyone other than the patient for history (EMS, parent, family, police, friend...)? What history was obtained from this source @ -No Did you review nursing and triage notes (agree or disagree)? Why? @ -I reviewed and agree with nursing and triage notes Were old charts reviewed (outside hosp., previous admission, EMS record, old EKG, old radiological studies, urgent care reports/EKG's, [facility] records)? Report findings @ -No old charts were reviewed Differential Diagnosis (chest pain, altered mental status, abdominal pain women, abdominal pain men, vaginal bleeding, weakness, fever, dyspnea, syncope, headache, dizziness, GI bleed, back pain, seizure, CVA, palpatations, mental health)? @ -ACS, palpitations, chest pain EKG interpreted by me (3pts min.). @ -As above X-rays interpreted by me (1pt min.). @ -Chest x-ray was obtained and was interpreted by myself showing no acute change from prior exams. CT interpreted by me (1pt min.). @ -None done U/S interpreted by me (1pt. min.). @ -None done What testing was considered but not performed or refused? (CT, X-rays, U/S, labs)? Why? @ -None What meds were considered but not given or refused? Why? @ -None Did you discuss the management of the patient with other professionals (pro fessionals i.e. TRACEY Katz, CIGARETTE VENDOR, lab, RT, psych nurse, social media campaign manager, sprinkler inspector, teacher, special service officer, clinical case manager)? Give summary @ -No Was smoking cessation discussed for >3mins.? @ -No Was critical care preformed (if so, how long)? @ -No Were there social determinants of health that impacted care today? How? (Homelessness, low income, unemployed, alcoholism, drug addiction, transporta tion, low edu. Level, literacy, decrease access to med. care, alf, rehab)? @ -No Was there de-escalation of care discussed even if they declined (Discuss DNR or withdrawal of care, Hospice)? DNR status @ -No What co-morbidities impacted this encounter? (DM, HTN, Smoking, COPD, CAD, Cancer, CVA, ARF, Chemo, Hep., AIDS, mental health diagnosis, sleep apnea, morbid obesity)? @ -Atrial fibrillation, hypertension Was patient admitted / discharged? Hospital course, mention meds given and route, prescriptions, significant lab abnormalities, going to OR and other pertinent info. @ -The patient was seen and evaluated emergency department. Physical exam, the patient was resting in bed without any acute distress. Vital signs admission were stable. Laboratory workup was obtained secondary to the patient's complaints of palpitations. The patient remained stable without any further symptoms and all laboratory workup was negative. The patient did have an elevat ed troponin but was continuing to down trend from his previous elevation when he was admitted to the hospital at the end of October for an NSTEMI. The patient was deemed still for discharge and was ANO 4, able to in breathing throughout the emergency Department with any acute assistance. The patient was advised to follow-up with his memory care physician for further workup and evaluation and [facility] had [facility] symptoms. The patient was agreeable to this and all his questions were answered. The patient was discharged home in stable condition. Undiagnosed new problem with uncertain prognosis? @ -No Drug Therapy requiring intensive monitoring for toxicity (Heparin, Nitro, Insulin, Cardizem)? @ -No Were any procedures done? @ -No Diagnosis/symptom? @ -Palpitations, NOS Acute, or Chronic, or Acute on Chronic? @ -Acute on chronic Uncomplicated (without systemic symptoms) or Complicated (systemic symptoms)? @ -Uncomplicated Side effects of treatment? @ -No Exacerbation, Progression, or Severe Exacerbation? @ -No Poses a threat to life or bodily function? How? (Chest pain, [place], [place], pneumonia, PE, COPD, DKA, ARF, appy, cholecystitis, CVA, Diverticulitis, Homicidal, Suicidal, threat to staff... and all critical care pts) @ -No - Lab Data Result diagrams: 12/05/22 03:33 12/05/22 03:33 Lab Results 12/05/22 12/05/22 12/05/22 Range/Units 03:33 03:33 03:33 WBC 5.1 (3.8-10.6) k/uL RBC 4.14 L (4.30-5.90) m/uL Hgb 10.8 L (13.0-17.5) gm/dL Hct 36.1 L (39.0-53.0) % MCV 87.2 (80.0-100.0) fL MCH 26.2 (25.0-35.0) pg MCHC 30.0 L (31.0-37.0) g/dL RDW 24.1 H (11.5-15.5) % Plt Count 278 D (150-450) k/uL MPV 7.6 Neutrophils % 69 % Lymphocytes % 21 % Monocytes % 5 % Eosinophils % 1 % Basophils % 1 % Neutrophils # 3.5 (1.3-7.7) k/uL Lymphocytes # 1.1 (1.0-4.8) k/uL Monocytes # 0.2 (0-1.0) k/uL Eosinophils # 0.0 (0-0.7) k/uL Basophils # 0.1 (0-0.2) k/uL Hypochromasia Marked Poikilocytosis Slight Anisocytosis Marked Microcytosis Slight Sodium 143 (137-145) mmol/L Potassium 3.5 (3.5-5.1) mmol/L Chloride 106 (98-107) mmol/L Carbon Dioxide 22 (22-30) mmol/L Anion Gap 15 mmol/L BUN 10 (9-20) mg/dL Creatinine 0.56 L (0.66-1.25) mg/dL Est GFR (CKD-EPI)AfAm >90 (>60 ml/min/1.73 sqM) Est GFR (CKD-EPI)NonAf >90 (>60 ml/min/1.73 sqM) Glucose 62 L (74-99) mg/dL Calcium 7.6 L (8.4-10.2) mg/dL Magnesium 1.6 (1.6-2.3) mg/dL Total Bilirubin 0.8 (0.2-1.3) mg/dL AST 35 (17-59) U/L ALT 22 (4-49) U/L Alkaline Phosphatase 131 H (38-126) U/L Troponin I 0.219 H* (0.000-0.034) ng/mL Total Protein 5.9 L (6.3-8.2) g/dL Albumin 3.0 L (3.5-5.0) g/dL Lipase 49 (23-300) U/L Disposition Clinical Impression: Palpitations Disposition: HOME SELF-CARE Condition: Stable Instructions (If sedation given, give patient instructions): Heart Palpitations (DC) Is patient prescribed a controlled substance at d/c from ED?: No Referrals: [facility] [Primary Care Provider] - 1-2 days Time of Disposition: 06:50
[2022-12-05 04:10] LABS: Anisocytosis Marked; Basophils # (A) 0.1 k/uL (0-0.2); Basophils % (A) 1 %; Eosinophils % (A) 1 %; HCT 36.1 % (39.0-53.0); HGB 10.8 gm/dL (13.0-17.5); Hypochromasia Marked; Lymphocytes # (A) 1.1 k/uL (1.0-4.8); Lymphocytes % (A) 21 %; MCH 26.2 pg (25.0-35.0); MCV 87.2 fL (80.0-100.0); Mean Platelet Volume 7.6; Microcytosis Slight; Monocytes # (A) 0.2 k/uL (0-1.0); Monocytes % (A) 5 %; Neutrophils # (A) 3.5 k/uL (1.3-7.7); Neutrophils % (A) 69 %; Poikilocytosis Slight; RBC 4.14 m/uL (4.30-5.90); RDW 24.1 % (11.5-15.5); WBC 5.1 k/uL (3.8-10.6)
[2022-12-05 04:22] LABS: ALT 22 U/L (4-49); AST 35 U/L (17-59); African American GFR (CKD) >90 (>60 ml/min/1.73 sqM); Alkaline Phosphatase 131 U/L (38-126); Anion Gap 15 mmol/L; Blood Urea Nitrogen 10 mg/dL (9-20); Calcium 7.6 mg/dL (8.4-10.2); Carbon Dioxide 22 mmol/L (22-30); Chloride 106 mmol/L (98-107); Glucose 62 mg/dL (74-99); Lipase 49 U/L (23-300); Magnesium 1.6 mg/dL (1.6-2.3); Non-African American GFR(CKD) >90 (>60 ml/min/1.73 sqM); Potassium 3.5 mmol/L (3.5-5.1); Sodium 143 mmol/L (137-145); Total Bilirubin 0.8 mg/dL (0.2-1.3); Total Protein 5.9 g/dL (6.3-8.2)
[2022-12-05 05:05] LABS: Platelet Count 278 k/uL (150-450)
--- NOTE | 2022-12-05 07:09 | XR ---
EXAMINATION TYPE: XR chest 2V DATE OF EXAM: 12/05/2022 COMPARISON: 11/13/2022 HISTORY: 57-year-old male with chest pain TECHNIQUE: AP and lateral views FINDINGS: Limited, rotated portable exam. Heart is mildly enlarged. Low lung volumes. Continued asymmetric elev ation left hemidiaphragm. Mild interstitial prominence. Old healed right lateral rib fracture deformi ties. The lateral view, there is small pleural effusion with adjacent opacity. IMPRESSION: 1. Mild cardiomegaly with hypoventilatory changes. Correlate for mild pulmonary vascular congestion. 2. On the lateral view we see a small pleural effusion with adjacent atelectasis and/or consolidation . 3. Continued asymmetric elevation left hemidiaphragm. If concern for hemidiaphragmatic paralysis, a f luoroscopic sniff test could be performed.
[2022-12-05 07:25] VITALS: BP 107/57; PULSE 116; RESP 20; TEMP 98.5
== END 2022-12-05 08:19 | disposition home or self-care (01) ==
LOC: EC 02:54
DX: R00.2 Palpitations (principal); J44.9 Chronic obstructive pulmonary disease, unspecified; I10 Essential (primary) hypertension; I25.2 Old myocardial infarction; F41.9 Anxiety disorder, unspecified; F31.9 Bipolar disorder, unspecified; F17.200 Nicotine dependence, unspecified, uncomplicated; Z79.899 Other long term (current) drug therapy
CPT/HCPCS: 36415; 71046; 80053; 83690; 83735; 84484; 85025; 93005; 99285

== ENCOUNTER 2022-12-06 14:12 | Inpatient (IN) | payer MEDICAID, MEDICARE, OTHER ==
[2022-12-06] MEDS ORDERED: ASPIRIN 81 MG PO STA (14:32)
[2022-12-06] MEDS ORDERED: SODIUM CHLORIDE 0.9% 1,000 ML IV STA (14:32)
[2022-12-06] MEDS ORDERED: DEXTROSE 5% IN WATER 100 ML with AMIODARONE 150 MG IV ONE (14:50)
[2022-12-06 14:58] LABS: Anisocytosis Moderate; Basophils % (A) 1 %; Eosinophils % (A) 0 %; HCT 38.3 % (39.0-53.0); HGB 11.6 gm/dL (13.0-17.5); Hypochromasia Marked; Lymphocytes # (A) 0.7 k/uL (1.0-4.8); Lymphocytes % (A) 10 %; MCH 26.2 pg (25.0-35.0); MCHC 30.2 g/dL (31.0-37.0); MCV 86.8 fL (80.0-100.0); Mean Platelet Volume 7.7; Microcytosis Slight; Monocytes # (A) 0.3 k/uL (0-1.0); Monocytes % (A) 5 %; Neutrophils # (A) 5.8 k/uL (1.3-7.7); Neutrophils % (A) 81 %; Platelet Count 292 k/uL (150-450); Poikilocytosis Slight; RBC 4.42 m/uL (4.30-5.90); RDW 23.8 % (11.5-15.5); WBC 7.2 k/uL (3.8-10.6)
[2022-12-06] MEDS ORDERED: AMIODARONE 360 MG in DEXTROSE 5% IN WATER 200 ML IV ONE ×2 (15:00)
[2022-12-06 15:13] LABS: INR 1.2 (<1.2); Prothrombin Time 12.3 sec (9.0-12.0)
--- NOTE | 2022-12-06 15:13 | ED ---
General Adult HPI - General Chief complaint: Shortness of Breath Stated complaint: SOB Time Seen by Provider: 12/06/22 14:28 Source: patient, EMS Mode of arrival: EMS Limitations: no limitations - History of Present Illness Initial comments: Dictation was produced using [employer] dictation software. please excuse any grammatical, word or spelling errors. Chief Complaint: 57-year-old male presents emergency peripheral weakness shortness of breath tachycardia History of Present Illness: 37-year-old male who has past medical history of atrial fibrillation. He does take anticoagulation medications. Patient states he's feeling palpitation shortness breath and weakness. He was not able to take his daily medications. Takes metoprolol for his A. fib. He states that his blood pressure was slightly low today which is part of the reason why he didn't take his medications. Patient is brought in by EMS found be tachycardic with rates above 200. The ROS documented in this emergency department record has been reviewed and confirmed by me. Those systems with pertinent positive or negative responses have been documented in the HPI. All other systems are other negative and/or noncontributory. - Related Data Home Medications Medication Instructions Recorded Confirmed Atorvastatin [Lipitor] 80 mg PO HS 03/30/21 12/06/22 DULoxetine HCL [Cymbalta] 60 mg PO HS 04/12/21 12/06/22 Metoprolol Tartrate [Lopressor] 25 mg PO BID 04/12/21 12/06/22 ARIPiprazole [Abilify] 10 mg PO DAILY 12/06/22 12/06/22 Omeprazole [PriLOSEC] 20 mg PO DAILY 12/06/22 12/06/22 Previous Rx's Medication Instructions Recorded Aspirin 81 mg PO DAILY tab 11/17/22 Allergies Allergy/AdvReac Type Severity Reaction Status Date / Time Iodinated Contrast Media Allergy Itching-see Verified 12/06/22 17:34 comment Review of Systems ROS Statement: Those systems with pertinent positive or pertinent negative responses have been documented in the HPI. ROS Other: All systems not noted in ROS Statement are negative. Past Medical History Past Medical History: COPD, GERD/Reflux, GI Bleed, Hypertension, Myocardial Inf arction ([place]), Pneumonia, Skin Disorder Additional Past Medical History / Comment(s): ETOH abuse with delirium tremors, lower GI bleed, IBS, chronic iron deficiency anemia, hypomagnesemia, hyperbilirubinemia, anorexia, vertigo, nephrolithiasis-passed stone on his own, chronic low back/cervical pain, DDD, kyphosis, scoliosis, coccyx pressure ulcer pt states is mostly healed. Dry and itchy skin back in high school. 2 heart attacks, one in December (2020) second in February (2020). Last Myocardial Infarction Date:: February 2021 History of Any Multi-Drug Resistant Organisms: None Reported Past Surgical History: Bariatric Surgery, Heart Catheterization With Stent, Hernia Repair, Orthopedic Surgery, Tonsillectomy Additional Past Surgical History / Comment(s): Right inner Forearm-metal plate, gastric bypass, incisional hernia surgery x2, EGDs, colonoscopies. 2 Stents placed in December 2020. Past Anesthesia/Blood Transfusion Reactions: No Reported Reaction Date of Last Stent Placement:: 2020 Past Psychological History: Anxiety, Bipolar, Depression, PTSD Smoking Status: Current every day smoker Past Alcohol Use History: Abuse, Daily Past Drug Use History: None Reported - Past Family History Mother History Unknown: Yes Family Medical History: Hypertension Additional Family Medical History / Comment(s): Lupus. Mother is living. Father History Unknown: Yes Family Medical History: Liver Disease Additional Family Medical History / Comment(s): ETOH abuse. of cirrhosis complications. General Exam - General Exam Comments Initial Comments: PHYSICAL EXAM: General Impression: Alert and oriented x3, mildly dyspneic HEENT: Normocephalic atraumatic, extra-ocular movements intact, pupils equal and reactive to light bilaterally, mucous membranes moist. Cardiovascular: Tachycardic Chest: Able to complete full sentences, no retractions, no tachypnea Abdomen: abdomen soft, non-tender, non-distended, no organomegaly Musculoskeletal: Pulses present and equal in all extremities, no peripheral edema Motor: no focal deficits noted Neurological: CN II-XII grossly intact, no focal motor or sensory deficits noted Skin: Intact with no visualized rashes Psych: Anxious Limitations: no limitations Course Vital Signs 12/06/22 14:26 Temperature 98.5 F Pulse Rate 180 H Respiratory 24 Rate Blood Pressure 118/107 O2 Sat by Pulse 100 Oximetry - Reevaluation(s) Reevaluation #1: 12/06/22 15:13 Patient seen and evaluated and room #1. Vital signs upon arrival shows heart rate of 180. On the banking services clerk is anywhere above 180 around 200. Patient did not appear to be any significant distress. He did complain of some mild chest pain. Recommended to the patient that we do electrical cardioversion he refused rather do medical management. States that he had electrical cardioversion in the past and he did not ever want that procedure done again. Patient started on amiodarone because she did have a soft blood pressure. Reevaluation #2: 12/06/22 15:13 After several minutes on amiodarone his heart rate improved to average 150s to 160s however still tachycardic. EKG Findings - EKG Comments: EKG Findings:: My EKG interpretation: Ventricular rate 181, A. fib with RVR, QRS 87, QTC 341. no QTC prolongation, no ST or T-wave changes noted. EKG consistent with A. fib with RVR Medical Decision Making - Medical Decision Making Was pt. sent in by a medical professional or institution (, PA, TERADATA SOLUTION ARCHITECT, urgent care, hospital, or halfway...) When possible be specific @ -No Did you speak to anyone other than the patient for history (EMS, parent, family, police, friend...)? What history was obtained from this source @ -EMS provided some history states that he is very tachycardic Did you review nursing and triage notes (agree or disagree)? Why? @ -I reviewed and agree with nursing and triage notes Were old charts reviewed (outside hosp., previous admission, EMS record, old EKG, old radiological studies, urgent care reports/EKG's, halfway records)? Report findings @ -Prior charting was reviewed suggesting the patient has stops history of A. fib RVR discharge summary from October this year shows the patient was admitted for suicidal ideation. Differential Diagnosis (chest pain, altered mental status, abdominal pain women, abdominal pain men, vaginal bleeding, musculoskeletal, weakness, fever, dyspnea, syncope, headache, dizziness, GI bleed, back pain, seizure, CVA, palpatations, mental health)? @ - Differential Palpitations: Ventricular arrhythmias, atrial arrhythmias, myocardial infarction, anemia, thyrotoxicosis, electrolyte imbalance, hypokalemia, pulmonary embolism, pulmonary disease, drugs, alcohol, anxiety, stress.... This is not meant to be an all-inclusive list. EKG interpreted by me (3pts min.). @ -See above X-rays interpreted by me (1pt min.). @ -Pending CT interpreted by me (1pt min.). @ -None done U/S interpreted by me (1pt. min.). @ -None done What testing was considered but not performed or refused? (CT, X-rays, U/S, labs)? Why? @ -None What meds were considered but not given or refused? Why? @ -None Did you discuss the management of the patient with other professionals (professionals i.e. DrJasmin, PA, TERADATA SOLUTION ARCHITECT, lab, RT, psych nurse, healthcare social worker, marketing manager health communications, teacher, aboriginal home school liaison officer, pillowcase turner)? Give summary @ -Is imaging and clinical presentation discussed with hospitalist, Dr. Cárdenas for admission. Was smoking cessation discussed for >3mins.? @ -No Was critical care preformed (if so, how long)? @ -yes, 33 minutes Were there social determinants of health that impacted care today? How? (Homelessness, low income, unemployed, alcoholism, drug addiction, transportation, low edu. Level, literacy, decrease access to med. care, group home, rehab)? @ -No Was there de-escalation of care discussed even if they declined (Discuss DNR or withdrawal of care, Hospice)? DNR status @ -No What co-morbidities impacted this encounter? (DM, HTN, Smoking, COPD, CAD, Cancer, CVA, ARF, Chemo, Hep., AIDS, mental health diagnosis, sleep apnea, morbid obesity)? @ -None Was patient admitted / discharged? Hospital course, mention meds given and route, prescriptions, significant lab abnormalities, going to OR and other pertinent info. @ -57-year-old male past medical history of A. fib RVR. He is on rate controlling medications. He was taken off of an evaluation medications by his bed control specialist. Vital signs upon arrival patient was very tachycardic. He s tarted on amiodarone. Observed in emergency department for several hours with improvement in his heart rate. Patient states that his chest pain is now improved. Does have elevated troponin. Rest of labs within acceptable limits. Patient be admitted for further care. Undiagnosed new problem with uncertain prognosis? @ -No Drug Therapy requiring intensive monitoring for toxicity (Heparin, Nitro, Insulin, Cardizem)? @ -No Were any procedures done? @ -No Diagnosis/symptom? Acute, or Chronic, or Acute on Chronic? Uncomplicated (without systemic symptoms) or Complicated (systemic symptoms)? @ -. A. fib RVR Side effects of treatment? @ -No Exacerbation, Progression, or Severe Exacerbation? @ -No Poses a threat to life or bodily function? How? (Chest pain, [place], [place], pneumonia, PE, COPD, DKA, ARF, appy, cholecystitis, CVA, Diverticulitis, Homicidal, Suicidal, threat to staff... and all critical care pts) @ -yes - Lab Data Result diagrams: 12/06/22 14:37 12/06/22 14:37 Lab Results 12/06/22 12/06/22 12/06/22 Range/Units 14:37 14:37 14:37 WBC 7.2 (3.8-10.6) k/uL RBC 4.42 (4.30-5.90) m/uL Hgb 11.6 L (13.0-17.5) gm/dL Hct 38.3 L (39.0-53.0) % MCV 86.8 (80.0-100.0) fL MCH 26.2 (25.0-35.0) pg MCHC 30.2 L (31.0-37.0) g/dL RDW 23.8 H (11.5-15.5) % Plt Count 292 (150-450) k/uL MPV 7.7 Neutrophils % 81 % Lymphocytes % 10 % Monocytes % 5 % Eosinophils % 0 % Basophils % 1 % Neutrophils # 5.8 (1.3-7.7) k/uL Lymphocytes # 0.7 L (1.0-4.8) k/uL Monocytes # 0.3 (0-1.0) k/uL Eosinophils # 0.0 (0-0.7) k/uL Basophils # 0.0 (0-0.2) k/uL Hypochromasia Marked Poikilocytosis Slight Anisocytosis Moderate Microcytosis Slight PT 12.3 H (9.0-12.0) sec INR 1.2 H (<1.2) APTT 21.8 L (22.0-30.0) sec Sodium 136 L (137-145) mmol/L Potassium 3.9 (3.5-5.1) mmol/L Chloride 99 (98-107) mmol/L Carbon Dioxide 15 L (22-30) mmol/L Anion Gap 22 mmol/L BUN 7 L (9-20) mg/dL Creatinine 0.53 L (0.66-1.25) mg/dL Est GFR (CKD-EPI)AfAm >90 (>60 ml/min/1.73 sqM) Est GFR (CKD-EPI)NonAf >90 (>60 ml/min/1.73 sqM) Glucose 167 H (74-99) mg/dL Calcium 7.7 L (8.4-10.2) mg/dL Magnesium 1.6 (1.6-2.3) mg/dL Total Bilirubin 1.4 H (0.2-1.3) mg/dL AST 42 (17-59) U/L ALT 25 (4-49) U/L Alkaline Phosphatase 148 H (38-126) U/L Troponin I (0.000-0.034) ng/mL Total Protein 6.5 (6.3-8.2) g/dL Albumin 3.5 (3.5-5.0) g/dL TSH 3.440 (0.465-4.680) mIU/L 12/06/22 Range/Units 14:37 WBC (3.8-10.6) k/uL RBC (4.30-5.90) m/uL Hgb (13.0-17.5) gm/dL Hct (39.0-53.0) % MCV (80.0-100.0) fL MCH (25.0-35.0) pg MCHC (31.0-37.0) g/dL RDW (11.5-15.5) % Plt Count (150-450) k/uL MPV Neutrophils % % Lymphocytes % % Monocytes % % Eosinophils % % Basophils % % Neutrophils # (1.3-7.7) k/uL Lymphocytes # (1.0-4.8) k/uL Monocytes # (0-1.0) k/uL Eosinophils # (0-0.7) k/uL Basophils # (0-0.2) k/uL Hypochromasia Poikilocytosis Anisocytosis Microcytosis PT (9.0-12.0) sec INR (<1.2) APTT (22.0-30.0) sec Sodium (137-145) mmol/L Potassium (3.5-5.1) mmol/L Chloride (98-107) mmol/L Carbon Dioxide (22-30) mmol/L Anion Gap mmol/L BUN (9-20) mg/dL Creatinine (0.66-1.25) mg/dL Est GFR (CKD-EPI)AfAm (>60 ml/min/1.73 sqM) Est GFR (CKD-EPI)NonAf (>60 ml/min/1.73 sqM) Glucose (74-99) mg/dL Calcium (8.4-10.2) mg/dL Magnesium (1.6-2.3) mg/dL Total Bilirubin (0.2-1.3) mg/dL AST (17-59) U/L ALT (4-49) U/L Alkaline Phosphatase (38-126) U/L Troponin I 0.206 H* (0.000-0.034) ng/mL Total Protein (6.3-8.2) g/dL Albumin (3.5-5.0) g/dL TSH (0.465-4.680) mIU/L Disposition Clinical Impression: Atrial fibrillation with RVR Disposition: ADMITTED IP TO THIS HOSP Condition: Serious Referrals: None,Stated [REFERRING] - 1-2 days Decision Time: 17:51
[2022-12-06 15:14] LABS: ALT 25 U/L (4-49); AST 42 U/L (17-59); African American GFR (CKD) >90 (>60 ml/min/1.73 sqM); Albumin 3.5 g/dL (3.5-5.0); Alkaline Phosphatase 148 U/L (38-126); Anion Gap 22 mmol/L; Blood Urea Nitrogen 7 mg/dL (9-20); Calcium 7.7 mg/dL (8.4-10.2); Carbon Dioxide 15 mmol/L (22-30); Chloride 99 mmol/L (98-107); Glucose 167 mg/dL (74-99); Magnesium 1.6 mg/dL (1.6-2.3); Non-African American GFR(CKD) >90 (>60 ml/min/1.73 sqM); Potassium 3.9 mmol/L (3.5-5.1); Sodium 136 mmol/L (137-145); Total Bilirubin 1.4 mg/dL (0.2-1.3); Total Protein 6.5 g/dL (6.3-8.2)
[2022-12-06 15:24] LABS: Partial Thromboplastin Time 21.8 sec (22.0-30.0)
[2022-12-06] MEDS ORDERED: ONDANSETRON 4 MG/2 ML VIAL IVP PRN (17:44)
[2022-12-06] MEDS ORDERED: NALOXONE 0.4 MG/ML 1 ML VIAL IV PRN (17:44)
[2022-12-06] MEDS ORDERED: SODIUM CHLORIDE 0.9% 1,000 ML IV SCH (17:45)
--- NOTE | 2022-12-06 18:07 | XR ---
EXAMINATION TYPE: XR chest 2V DATE OF EXAM: 12/06/2022 COMPARISON: Chest x-ray one day earlier HISTORY: Dysrhythmia. TECHNIQUE: Frontal and lateral views of the chest are obtained. FINDINGS: Elevated left hemidiaphragm with bilateral central and bibasilar increased opacities are m ore prominent from one day earlier. Small left-sided pleural effusion redemonstrated on lateral view. Stable cardiomegaly. Osseous structures are intact. IMPRESSION: Worsening bilateral mid to lower lung edema and/or infiltrates.
[2022-12-06] MEDS ORDERED: LORazepam 1 MG TAB PO PRN ×3 (20:26)
[2022-12-06] MEDS ORDERED: LORazepam 0.5 MG TAB PO PRN (20:26)
[2022-12-06] MEDS ORDERED: THIAMINE 100 MG/ML 2 ML VIAL IM STA (20:26)
--- NOTE | 2022-12-06 20:28 | P.HPIM ---
History of Present Illness H&P Date: 12/06/22 The patient is a 57-year-old male with a PMH of systolic CHF EF 30%, CAD status post multiple stents, history of A. fib not on anticoagulation due to recent history of GI bleeding in July, alcohol abuse with history of DTs, type II DM, and recent stay at [facility] for [facility] presents to the emergency room with complaints of shortness of breath, palpitations, chest discomfort, and fatigue. The patient reports that over the past few months, he has been experiencing intermittent shortness of breath with chest discomfort that has recently worsened. He reports that he is now unable to ambulate and his home due to shortness of breath. He reports persistent palpitations. Reports ongoing alcohol use drinking as much as a pint of hard liquor daily. Patient reports that he did have some chest discomfort earlier today which he described as sharp substernal lasting for a few minutes but states that it has now resolved completely.. Denies experiencing fever, chills, cough, nausea, vomiting, abdominal pain, diarrhea. The patient underwent an extensive evaluation in the emergency room. Upon arriv al the patient's vitals were pulse 180, BP 118/107, the patient was on a nonrebreather with 10 L of oxygen, with 98.5F and respiratory rate 24. EKG had revealed A. fib with RVR at 181 bpm with poor R-wave progression. Chest x-ray revealed bilateral edema versus infiltrates. Laboratory evaluation was remarkable for troponin 0.206, sodium 136, CO2 15, was 167, magnesium 1.6, and T bili 1.4. ED documentation reviewed and case discussed with ED provider. Review of systems: Pertinent positives and negatives as discussed in HPI, a complete review of systems was performed and all other systems are negative. Physical examination: Vital signs reviewed General: Disheveled male, no distress, appears older than stated age, normal weight Derm: no unusual rashes/lesions, warm Head: atraumatic, normocephalic, symmetric Eyes: EOMI, no lid lag, anicteric sclera, pupils equal round reactive to light ENT: Nose and ears atraumatic Neck: No cervical lymphadenopathy, trachea midline, supple Mouth: no lip lesion, mucus membranes moist Cardiovascular: Irregularly irregular with tachycardia, no murmur, positive dorsalis pedis pulse bilateral, no edema Lungs: Scattered rales, no accessory muscle use Abdominal: soft, nontender to palpation, no guarding Ext: muscle strength 4 out of 5 in all 4 extremities grossly, no gross muscle atrophy, no contractures, Neuro: CN II-XI grossly intact, no gross focal neuro deficits Psych: Alert, oriented, appropriate affect Assessment: A. fib with RVR Elevated troponin, suspect secondary to ongoing A. fib with RVR Acute systolic CHF exacerbation suspect brought on by A. fib with RVR Acute hypoxic respiratory failure, likely CHF Alcohol abuse, impending withdrawal Chronic conditions: Type II DM Imaging: EKG had revealed A. fib with RVR at 181 bpm with poor R-wave progression. Chest x-ray revealed bilateral edema versus infiltrates. Data Review: Upon arrival the patient's vitals were pulse 180, BP 118/107, the patient was on a nonrebreather with 10 L of oxygen, with 98.5F and respiratory rate 24. Laboratory evaluation was remarkable for troponin 0.206, sodium 136, CO2 15, was 167, magnesium 1.6, and T bili 1.4. Plan: Continue with amiodarone infusion Hold off on anticoagulation due to recent history of severe bleed. S/p ASA 324 mg po once Cardiac monitoring Cardiology consulted Trend troponin Start patient on Lasix 40 mg IV every 12 hourly Monitor electrolytes daily Supplemental oxygen as needed Daily weights, intake output CIWA Protocol, thiamine and multivitamin Insulin sliding scale and blood monitoring DVT prophylaxis: Heparin subq The patient is admitted with an anticipated greater than 2 midnight stay for evaluation of Afib CODE STATUS: Full Code Discussed with: Patient Anticipated discharge place: Home Past Medical History Past Medical History: COPD, GERD/Reflux, GI Bleed, Hypertension, Myocardial Infarction ([place]), Pneumonia, Skin Disorder Additional Past Medical History / Comment(s): ETOH abuse with delirium tremors, lower GI bleed, IBS, chronic iron deficiency anemia, hypomagnesemia, hyperbilirubinemia, anorexia, vertigo, nephrolithiasis-passed stone on his own, chronic low back/cervical pain, DDD, kyphosis, scoliosis, coccyx pressure ulcer pt states is mostly healed. Dry and itchy skin back in high school. 2 heart attacks, one in December (2020) second in February (2020). Last Myocardial Infarction Date:: February 2021 History of Any Multi-Drug Resistant Organisms: None Reported Past Surgical History: Bariatric Surgery, Heart Catheterization With Stent, Hernia Repair, Orthopedic Surgery, Tonsillectomy Additional Past Surgical History / Comment(s): Right inner Forearm-metal plate, gastric bypass, incisional hernia surgery x2, EGDs, colonoscopies. 2 Stents placed in December 2020. Past Anesthesia/Blood Transfusion Reactions: No Reported Reaction Date of Last Stent Placement:: 2020 Past Psychological History: Anxiety, Bipolar, Depression, PTSD Smoking Status: Current every day smoker Past Alcohol Use History: Abuse, Daily Past Drug Use History: None Reported - Past Family History Mother History Unknown: Yes Family Medical History: Hypertension Additional Family Medical History / Comment(s): Lupus. Mother is living. Father History Unknown: Yes Family Medical History: Liver Disease Additional Family Medical History / Comment(s): ETOH abuse. of cirrhosis complications. Medications and Allergies Home Medications Medication Instructions Recorded Confirmed Type Atorvastatin [Lipitor] 80 mg PO HS 03/30/21 12/06/22 History DULoxetine HCL [Cymbalta] 60 mg PO HS 04/12/21 12/06/22 History Metoprolol Tartrate [Lopressor] 25 mg PO BID 04/12/21 12/06/22 History Aspirin 81 mg PO DAILY tab 11/17/22 12/06/22 Rx ARIPiprazole [Abilify] 10 mg PO DAILY 12/06/22 12/06/22 History Omeprazole [PriLOSEC] 20 mg PO DAILY 12/06/22 12/06/22 History Allergies Allergy/AdvReac Type Severity Reaction Status Date / Time Iodinated Contrast Media Allergy Itching-see Verified 12/06/22 17:34 comment Physical Exam Vitals: Vital Signs Temp Pulse Resp BP Pulse Ox 12/06/22 19:45 20 128/91 12/06/22 19:30 123 H 20 109/85 100 12/06/22 19:15 122 H 17 115/89 100 12/06/22 18:15 125 H 22 123/90 99 12/06/22 18:00 120 H 20 120/85 99 12/06/22 17:45 129 H 20 114/79 100 12/06/22 17:30 124 H 16 113/86 100 12/06/22 17:15 129 H 22 112/79 100 12/06/22 17:00 131 H 18 106/83 100 12/06/22 16:45 128 H 23 100/79 100 12/06/22 16:30 128 H 18 113/82 100 12/06/22 16:15 128 H 18 113/71 98 12/06/22 16:00 133 H 27 H 123/89 99 12/06/22 15:45 131 H 27 H 116/66 98 12/06/22 15:27 174 H 26 H 104/93 100 12/06/22 14:26 98.5 F 180 H 24 118/107 100 Intake and Output 12/06/22 12/06/22 12/06/22 06:59 14:59 22:59 Other: Weight 77.111 kg Results CBC & Chem 7: 12/06/22 14:37 12/06/22 14:37 Labs: Abnormal Lab Results - Last 24 Hours (Table) 12/06/22 12/06/22 12/06/22 Range/Units 14:37 14:37 14:37 Hgb 11.6 L (13.0-17.5) gm/dL Hct 38.3 L (39.0-53.0) % MCHC 30.2 L (31.0-37.0) g/dL RDW 23.8 H (11.5-15.5) % Lymphocytes # 0.7 L (1.0-4.8) k/uL PT 12.3 H (9.0-12.0) sec INR 1.2 H (<1.2) APTT 21.8 L (22.0-30.0) sec Sodium 136 L (137-145) mmol/L Carbon Dioxide 15 L (22-30) mmol/L BUN 7 L (9-20) mg/dL Creatinine 0.53 L (0.66-1.25) mg/dL Glucose 167 H (74-99) mg/dL Calcium 7.7 L (8.4-10.2) mg/dL Total Bilirubin 1.4 H (0.2-1.3) mg/dL Alkaline Phosphatase 148 H (38-126) U/L Troponin I (0.000-0.034) ng/mL 12/06/22 Range/Units 14:37 Hgb (13.0-17.5) gm/dL Hct (39.0-53.0) % MCHC (31.0-37.0) g/dL RDW (11.5-15.5) % Lymphocytes # (1.0-4.8) k/uL PT (9.0-12.0) sec INR (<1.2) APTT (22.0-30.0) sec Sodium (137-145) mmol/L Carbon Dioxide (22-30) mmol/L BUN (9-20) mg/dL Creatinine (0.66-1.25) mg/dL Glucose (74-99) mg/dL Calcium (8.4-10.2) mg/dL Total Bilirubin (0.2-1.3) mg/dL Alkaline Phosphatase (38-126) U/L Troponin I 0.206 H* (0.000-0.034) ng/mL
[2022-12-06] MEDS ORDERED: AMIODARONE 450 MG in DEXTROSE 5% IN WATER 250 ML IV SCH ×2 (21:00)
[2022-12-06] MEDS: FUROSEMIDE 10 MG/ML 4 ML VIAL IV SCH (22:04)
[2022-12-07] MEDS: HEPARIN SODIUM,PORCINE/PF 5,000 UNIT/0.5 ML SYRINGE SQ SCH ×4 (00:06→23:20)
[2022-12-07 06:01] LABS: Glucose,Whole Blood 108 mg/dL (70-110)
[2022-12-07 06:30] LABS: Anisocytosis Marked; HCT 32.9 % (39.0-53.0); HGB 10.4 gm/dL (13.0-17.5); Hypochromasia Marked; MCH 26.5 pg (25.0-35.0); MCHC 31.4 g/dL (31.0-37.0); MCV 84.2 fL (80.0-100.0); Mean Platelet Volume 7.7; Microcytosis Moderate; Platelet Count 232 k/uL (150-450); Poikilocytosis Slight; RBC 3.91 m/uL (4.30-5.90); RDW 24.1 % (11.5-15.5); WBC 6.7 k/uL (3.8-10.6)
[2022-12-07 06:38] LABS: ALT 19 U/L (4-49); AST 35 U/L (17-59); African American GFR (CKD) >90 (>60 ml/min/1.73 sqM); Albumin 2.9 g/dL (3.5-5.0); Alkaline Phosphatase 134 U/L (38-126); Anion Gap 6 mmol/L; Blood Urea Nitrogen 5 mg/dL (9-20); Calcium 7.6 mg/dL (8.4-10.2); Carbon Dioxide 34 mmol/L (22-30); Chloride 97 mmol/L (98-107); Glucose 83 mg/dL (74-99); Magnesium 1.4 mg/dL (1.6-2.3); Non-African American GFR(CKD) >90 (>60 ml/min/1.73 sqM); Potassium 3.1 mmol/L (3.5-5.1); Sodium 137 mmol/L (137-145); Total Bilirubin 1.8 mg/dL (0.2-1.3); Total Protein 5.6 g/dL (6.3-8.2)
[2022-12-07 08:58] VITALS: RESP 18
[2022-12-07] MEDS: MULTIVITAMINS, THERA 1 EACH TAB PO SCH (08:58)
[2022-12-07] MEDS: ASPIRIN 81 MG PO SCH (08:58)
[2022-12-07] MEDS: FUROSEMIDE 10 MG/ML 4 ML VIAL IV SCH ×2 (08:58→19:58)
[2022-12-07] MEDS: THIAMINE 100 MG TAB PO SCH (08:59)
[2022-12-07] MEDS: METOPROLOL TARTRATE 25 MG TAB PO SCH ×2 (08:59→19:58)
[2022-12-07] MEDS: MAGNESIUM SULFATE-D5W PMX 1 GM in DEXTROSE/WATER 1 100ML.BAG IVPB SCH ×3 (08:59→13:00)
[2022-12-07] MEDS ORDERED: POTASSIUM CHLORIDE ER 20 MEQ TAB.ER PO STA (09:21)
--- NOTE | 2022-12-07 11:02 | P.CRDCN ---
History of Present Illness History of present illness: HISTORY OF PRESENT ILLNESS: This is a 57-year-old male with a past medical history significant for atrial fibrillation, hypertension, hyperlipidemia, and coronary artery disease. Patient follows in the office with Dr. Chaudhari and was last seen in the office in 2021. We have been asked to see the patient in consultation for A. fib with RVR. Patient examined at the bedside. Patient presented to the hospital for chief complaint of shortness of breath and palpitations. Patient was found to be in acute heart failure and was started on IV Lasix. Patient was also found to be in A. fib with RVR. He was placed on IV amiodarone. The patient has converted to sinus mechanism and is maintaining sinus mechanism this morning. He denies any chest pain or pressure. He reports his shortness of breath is improving from yesterday. * EKG reveals atrial fibrillation with RVR * Chest xray worsening bilateral mid to lower lung edema and/or infiltrates * Laboratory data: WBC 6.7. Hemoglobin 10.4. Platelet count 232. Sodium 137. Potassium 3.1. BUN 5. Creatinine 0.54. Magnesium 1.4. Troponin 0.206. 0.370. 0.349. ProBNP 19,200. * Current home cardiac medications include metoprolol tartrate 25 mg twice a day, Lipitor 80 mg at night, and aspirin 81 mg daily * Most recent echocardiogram obtained in October 2022 revealing ejection fraction 30-35% hypokinesia of the mid to distal anterior septal a periumbilical and anterior lateral wall, severe pulmonary hypertension, moderate mitral regurgitation, and mild to moderate tricuspid regurgitation, with small pericardial effusion * Cardiac catheterization history: December 2020 revealing acutely occluded mid LAD with successful stenting of that segment with chronic occlusion of the distal LAD. Chronic occlusion of the proximal right RCA, mild disease in the proximal left circumflex. Severely calcified coronary arteries. Severe tortuosity of the aorta as well as the right subclavian. REVIEW OF SYSTEMS: At the time of my exam: CONSTITUTIONAL: Denies fever or chills. HEENT: Denies blurred vision, vision changes, or eye pain. Denies hemoptysis CARDIOVASCULAR: Denies chest pain. Denies orthopnea. Denies PND. Denies palpitations RESPIRATORY: Denies shortness of breath. GASTROINTESTINAL: Denies abdominal pain. Denies nausea or vomiting. HEMATOLOGIC: Denies bleeding disorders. GENITOURINARY: Denies any blood in urine. SKIN: Denies pruitis. Denies rash. PHYSICAL EXAM: VITAL SIGNS: Reviewed. GENERAL: Well-developed in no acute distress. HEENT: Head is normocephalic. Pupils are equal, round. Sclerae anicteric. Mucous membranes of the mouth are moist. Neck supple. No JVD or thyromegaly LUNGS: Respirations even and unlabored. Lungs diminished to auscultation bilaterally with bibasilar crackles. HEART: Regular rate and rhythm. S1 and S2 heard. ABDOMEN: Soft. Nondistended. Nontender. EXTREMITIES: Normal range of motion. No clubbing or cyanosis. Peripheral pulses intact. No lower extremity edema NEUROLOGIC: Awake and alert. Oriented x 3. ASSESSMENT: Shortness of breath Persistent atrial fibrillation with RVR, patient is not a good candidate for anticoagulation secondary to history of severe alcohol intake and noncompliance Abnormal troponins, likely type II [place], no evidence of acute coronary syndrome Acute congestive heart failure with reduced EF Coronary artery disease with previous stenting of the LAD and chronic occlusion of the RCA Ischemic cardiomyopathy, ejection fraction 30-35% Hypertension Hyperlipidemia History of alcohol abuse Nicotine dependence PLAN: No need to repeat echocardiogram as this was performed last month Discontinue IV amiodarone. Begin oral amiodarone 400 mg twice a day Continue IV Lasix Daily weights, accurate I&O, and monitoring of kidney function Abstinence from alcohol recommended Further recommendations pending patient's course Nurse practitioner note has been reviewed by physician. Signing provider agrees with the documented findings, assessment, and plan of care. Past Medical History Past Medical History: COPD, GERD/Reflux, GI Bleed, Hypertension, Myocardial Infarction ([place]), Pneumonia, Skin Disorder Additional Past Medical History / Comment(s): ETOH abuse with delirium tremors, lower GI bleed, IBS, chronic iron deficiency anemia, hypomagnesemia, hyperbilirubinemia, anorexia, vertigo, nephrolithiasis-passed stone on his own, chronic low back/cervical pain, DDD, kyphosis, scoliosis, coccyx pressure ulcer pt states is mostly healed. Dry and itchy skin back in high school. 2 heart attacks, one in December (2020) second in February (2020). Last Myocardial Infarction Date:: February 2021 History of Any Multi-Drug Resistant Organisms: None Reported Past Surgical History: Bariatric Surgery, Heart Catheterization With Stent, Hernia Repair, Orthopedic Surgery, Tonsillectomy Additional Past Surgical History / Comment(s): Right inner Forearm-metal plate, gastric bypass, incisional hernia surgery x2, EGDs, colonoscopies. 2 Stents placed in December 2020; bilateral knee surgeries Past Anesthesia/Blood Transfusion Reactions: No Reported Reaction Date of Last Stent Placement:: 2020 Past Psychological History: Anxiety, Bipolar, Depression, PTSD Additional Psychological History / Comment(s): Pt resides in a friends home where he rents a room. He now has a car and drives. Pt states his depression is stable at this time, no thoughts or plans of suicide. He has had multiple mental health unit admissions. He has ETOH abuse. He goes to [facility]. Smoking Status: Current every day smoker Past Alcohol Use History: Abuse, Daily Additional Past Alcohol Use History / Comment(s): Pt started smokingin 1979 and is a 1.5 -2ppd smoker. He drinks on average 12 beers /day 4-5 days a week or 1- 2 fifths per day Past Drug Use History: None Reported Additional Drug Use History / Comment(s): Pt still uses marijuana on occasion, but quit all other drugs 4-5 years ago. - Past Family History Mother History Unknown: Yes Family Medical History: Hypertension Additional Family Medical History / Comment(s): Lupus. Mother is living. Father History Unknown: Yes Family Medical History: Liver Disease Additional Family Medical History / Comment(s): ETOH abuse. of cirrhosis complications. Medications and Allergies Home Medications Medication Instructions Recorded Confirmed Type Atorvastatin [Lipitor] 80 mg PO HS 03/30/21 12/06/22 History DULoxetine HCL [Cymbalta] 60 mg PO HS 04/12/21 12/06/22 History Metoprolol Tartrate [Lopressor] 25 mg PO BID 04/12/21 12/06/22 History Aspirin 81 mg PO DAILY tab 11/17/22 12/06/22 Rx ARIPiprazole [Abilify] 10 mg PO DAILY 12/06/22 12/06/22 History Omeprazole [PriLOSEC] 20 mg PO DAILY 12/06/22 12/06/22 History Allergies Allergy/AdvReac Type Severity Reaction Status Date / Time Iodinated Contrast Media Allergy Itching-see Verified 12/06/22 17:34 comment Physical Exam Vitals: Vital Signs Temp Pulse Pulse Resp BP BP Pulse Ox 12/07/22 08:03 99 12/07/22 04:00 98.1 F 74 16 111/71 99 12/07/22 00:08 99 12/07/22 00:00 98.8 F 113 H 16 114/79 100 12/06/22 21:10 97.3 F L 118 H 14 105/74 100 12/06/22 20:45 125 H 22 122/88 100 12/06/22 20:30 120/86 100 12/06/22 20:15 122/82 96 12/06/22 20:00 121 H 13 117/78 100 12/06/22 19:45 20 128/91 12/06/22 19:30 123 H 20 109/85 100 12/06/22 19:15 122 H 17 115/89 100 12/06/22 18:15 125 H 22 123/90 99 12/06/22 18:00 120 H 20 120/85 99 12/06/22 17:45 129 H 20 114/79 100 12/06/22 17:30 124 H 16 113/86 100 12/06/22 17:15 129 H 22 112/79 100 12/06/22 17:00 131 H 18 106/83 100 12/06/22 16:45 128 H 23 100/79 100 12/06/22 16:30 128 H 18 113/82 100 12/06/22 16:15 128 H 18 113/71 98 12/06/22 16:00 133 H 27 H 123/89 99 12/06/22 15:45 131 H 27 H 116/66 98 12/06/22 15:27 174 H 26 H 104/93 100 12/06/22 14:26 98.5 F 180 H 24 118/107 100 Intake and Output 12/06/22 12/07/22 12/07/22 22:59 06:59 14:59 Intake Total 1540 Output Total 525 5600 240 Balance 1015 -5600 -240 Intake: Intake, IV Titration 1000 Amount Sodium Chloride 0.9% 1, 1000 000 ml @ 999 mls/hr IV . Q1H1M STA Rx#:[id number] Oral 540 Output: Urine 525 5600 240 Other: Voiding Method Urinal Urinal # Voids 4 Weight 81.4 kg Results 12/07/22 05:28 05/18/23 05:28 Cardiac Enzymes 12/06/22 12/06/22 12/07/22 Range/Units 14:37 14:37 05:28 AST 42 35 (17-59) U/L Troponin I 0.206 H* (0.000-0.034) ng/mL 12/07/22 Range/Units 05:28 AST (17-59) U/L Troponin I 0.370 H* (0.000-0.034) ng/mL Coagulation 12/06/22 Range/Units 14:37 PT 12.3 H (9.0-12.0) sec APTT 21.8 L (22.0-30.0) sec CBC 12/06/22 12/07/22 Range/Units 14:37 05:28 WBC 7.2 6.7 (3.8-10.6) k/uL RBC 4.42 3.91 L (4.30-5.90) m/uL Hgb 11.6 L 10.4 L (13.0-17.5) gm/dL Hct 38.3 L 32.9 L (39.0-53.0) % Plt Count 292 232 (150-450) k/uL Comprehensive Metabolic Panel 12/06/22 12/07/22 Range/Units 14:37 05:28 Sodium 136 L 137 (137-145) mmol/L Potassium 3.9 3.1 L (3.5-5.1) mmol/L Chloride 99 97 L (98-107) mmol/L Carbon Dioxide 15 L 34 H (22-30) mmol/L BUN 7 L 5 L (9-20) mg/dL Creatinine 0.53 L 0.54 L (0.66-1.25) mg/dL Glucose 167 H 83 (74-99) mg/dL Calcium 7.7 L 7.6 L (8.4-10.2) mg/dL AST 42 35 (17-59) U/L ALT 25 19 (4-49) U/L Alkaline Phosphatase 148 H 134 H (38-126) U/L Total Protein 6.5 5.6 L (6.3-8.2) g/dL Albumin 3.5 2.9 L (3.5-5.0) g/dL Current Medications Generic Name Dose Route Start Last Admin Trade Name Freq PRN Reason Stop Dose Admin Furosemide 40 mg 12/06/22 21:00 12/06/22 22:04 Furosemide 10 Mg/Ml 4 Ml Vial IV 40 mg Q12HR ROLA Administration Heparin Sodium (Porcine) 5,000 unit 12/07/22 00:00 12/07/22 00:06 Heparin Sodium,Porcine/Pf 5,000 Unit/0.5 Ml Syringe SQ 5,000 unit Q8HR ROLA Administration Amiodarone HCl 450 mg/ 250 mls @ 16.667 mls/hr 12/06/22 21:00 12/06/22 21:26 Dextrose/Water IV 12/07/22 14:59 0.5 mg/min .Q15H ROLA 16.667 mls/hr Administration Protocol 0.5 MG/MIN Magnesium Sulfate/Dextrose 1 100 mls @ 100 mls/hr 12/07/22 08:00 gm/ IV Solution IVPB 12/07/22 10:59 Q1H ROLA Lorazepam 2 mg 12/06/22 20:26 Lorazepam 1 Mg Tab PO Q3HR PRN Ciwa 8 To 9 Lorazepam 2 mg 12/06/22 20:26 Lorazepam 1 Mg Tab PO Q2HR PRN Ciwa 10 or greater Lorazepam 1 mg 12/06/22 20:26 Lorazepam 1 Mg Tab PO Q4HR PRN Ciwa 6 To 7 Lorazepam 0.5 mg 12/06/22 20:26 Lorazepam 0.5 Mg Tab PO Q4HR PRN Ciwa 4 To 5 Multivitamins 1 each 12/07/22 09:00 Multivitamins, Thera 1 Each Tab PO DAILY ROLA Naloxone HCl 0.2 mg 12/06/22 17:44 Naloxone 0.4 Mg/Ml 1 Ml Vial IV Q2M PRN Opioid Reversal Ondansetron HCl 4 mg 12/06/22 17:44 Ondansetron 4 Mg/2 Ml Vial IVP Q8HR PRN Nausea And Vomiting Thiamine HCl 100 mg 12/07/22 09:00 Thiamine 100 Mg Tab PO DAILY ROLA Intake and Output 12/06/22 12/07/22 12/07/22 22:59 06:59 14:59 Intake Total 1540 Output Total 525 5600 240 Balance 1015 -5600 -240 Intake: Intake, IV Titration 1000 Amount Sodium Chloride 0.9% 1, 1000 000 ml @ 999 mls/hr IV . Q1H1M STA Rx#:[id number] Oral 540 Output: Urine 525 5600 240 Other: Voiding Method Urinal Urinal # Voids 4 Weight 81.4 kg 12/07/22 05:28 12/07/22 05:28
[2022-12-07 11:20] LABS: Glucose,Whole Blood 110 mg/dL (70-110)
[2022-12-07] MEDS: AMIODARONE 200 MG TAB PO SCH ×2 (11:58→19:58)
[2022-12-07 16:15] LABS: Glucose,Whole Blood 116 mg/dL (70-110)
--- NOTE | 2022-12-07 19:25 | P.PN ---
Subjective Progress Note Date: 12/07/22 (delayed charting seen at 1010) Patient is a 57-year-old male with a systolic congestive heart failure ejection fraction 30%, A. fib not on anticoagulation due to recent bleeding in July, coronary artery disease status post multiple stents, extensive history of EtOH abuse with DTs and now cirrhosis, type 2 diabetes mellitus, and recent admission at subacute rehab for recovery from systolic congestive heart failure. He presented to the ER due to worsening shortness of breath and weakness. In the ER he underwent an extensive evaluation. Upon arrival his pulse was 180 and he was requiring a nonrebreather. Laboratory analysis was remarkable for troponin 0.206, sodium 136, CO2 15, magnesium 1.6, and bili of 1.4. EKG demonstrated A. fib with RVR. Patient was started on amiodarone due to borderline low blood pressures. He is also started on Lasix. He was admitted to the selective care unit for further monitoring. Cardiology was consulted. Patient seen and examined at bedside. He reports that when he left the long term he initially was doing well. He had been on Lasix but they discontinued it at the long term. He states his blood pressures have been low normal and he has been checking them at home but mistakingly was holding his metoprolol and continue to administer lisinopril. He now realizes his air. He does report that he is having difficulty getting around as he has no transportation, his apartment is requiring a deep cleaning, and he needs a visiting nurse practitioner. He does have a learning solutions specialist admitted to mental health is helping with these arrangements. He is feeling much better than on presentation but somewhat back to baseline. Vital signs reviewed General: [nontoxic], [no distress], [appears at stated age] Cardiovascular: [S1S2 regular reg], [no murmur], [positive posterior tibial pulse bilateral], Lungs: [Decreased breath sounds bilateral], [no rhonchi, no rales] , [no accessory muscle use] Abdominal: [soft], [ nontender to palpation], [no guarding], [no appreciable organomegaly] Ext: [no gross muscle atrophy], [trace edema], [no contractures] Neuro: [ CN II-XI grossly intact], [no focal neuro deficits] Psych: [Alert], [oriented], [appropriate affect] Assessment: Atrophic fibrillation with rapid ventricular response Acute exacerbation of chronic systolic congestive heart failure, ischemic cardiomyopathy with ejection fraction 30% Type II non-STEMI secondary to A. fib with RVR Acute hypoxic respiratory failure secondary to CHF and A. fib with RVR History of alcohol dependency, currently in remission Diabetes mellitus type 2 Chronic: Hypertension Dyslipidemia Nicotine dependency Imaging: None new Data Review: Vital signs reviewed and temperature 90.8, pulse 107, respirations 18, blood pressure 106/71, O2 sat 98% on 2 L Laboratory from this morning unremarkable for hemoglobin 10.4, sodium 3.1, chloride 97, carbon dioxide 34, BUN 5, creatinine 0.54, calcium 7.6, magnesium 1.4. Plan: -Continue Lasix 40 mg IV twice daily. Will need close monitoring of renal function. -Encourage patient to remain alcohol free -Magnesium 3 g IV piggyback, potassium 40 mEq -Continue with aspirin 81 mg daily, Lipitor 80 mg daily, Cymbalta 60 mg daily, Lopressor 25 mg twice daily, Abilify 10 mg daily, and Prilosec 20 mg daily -Case discussed with cardiology and patient was converted from IV amiodarone infusion to oral amiodarone. DVT prophylaxis: Heparin Discussed with: Patient, nursing Anticipated discharge date: in AM Anticipated discharge place: Home This dictation was prepared using [employer] voice recognition software. Though every attempt is made to correct errors during during dictation some may still exist. Objective - Vital Signs Vital signs: Vital Signs Temp 98.0 F 12/07/22 08:00 Pulse 90 12/07/22 15:36 Resp 18 12/07/22 15:36 BP 102/59 12/07/22 15:36 Pulse Ox 97 12/07/22 15:36 FiO2 Intake & Output 12/07/22 12/07/22 12/08/22 06:59 18:59 06:59 Intake Total 1540 236 Output Total 6125 2805 Balance -0929 -5016 Weight 81.4 kg Intake: Intake, IV Titration 1000 Amount Sodium Chloride 0.9% 1, 1000 000 ml @ 999 mls/hr IV . Q1H1M STA Rx#:[id number] Oral 540 236 Output: Urine 6125 2805 Other: Voiding Method Urinal Urinal # Voids 4 - Labs CBC & Chem 7: 12/07/22 05:28 12/07/22 05:28 Labs: Abnormal Lab Results - Last 24 Hours (Table) 12/07/22 12/07/22 12/07/22 Range/Units 05:28 05:28 05:28 RBC 3.91 L (4.30-5.90) m/uL Hgb 10.4 L (13.0-17.5) gm/dL Hct 32.9 L (39.0-53.0) % RDW 24.1 H (11.5-15.5) % Potassium 3.1 L (3.5-5.1) mmol/L Chloride 97 L (98-107) mmol/L Carbon Dioxide 34 H (22-30) mmol/L BUN 5 L (9-20) mg/dL Creatinine 0.54 L (0.66-1.25) mg/dL POC Glucose (mg/dL) (70-110) mg/dL Calcium 7.6 L (8.4-10.2) mg/dL Magnesium 1.4 L (1.6-2.3) mg/dL Total Bilirubin 1.8 H (0.2-1.3) mg/dL Alkaline Phosphatase 134 H (38-126) U/L Troponin I 0.370 H* (0.000-0.034) ng/mL Total Protein 5.6 L (6.3-8.2) g/dL Albumin 2.9 L (3.5-5.0) g/dL 12/07/22 12/07/22 Range/Units 08:44 16:14 RBC (4.30-5.90) m/uL Hgb (13.0-17.5) gm/dL Hct (39.0-53.0) % RDW (11.5-15.5) % Potassium (3.5-5.1) mmol/L Chloride (98-107) mmol/L Carbon Dioxide (22-30) mmol/L BUN (9-20) mg/dL Creatinine (0.66-1.25) mg/dL POC Glucose (mg/dL) 116 H (70-110) mg/dL Calcium (8.4-10.2) mg/dL Magnesium (1.6-2.3) mg/dL Total Bilirubin (0.2-1.3) mg/dL Alkaline Phosphatase (38-126) U/L Troponin I 0.349 H* (0.000-0.034) ng/mL Total Protein (6.3-8.2) g/dL Albumin (3.5-5.0) g/dL
[2022-12-08 08:45] VITALS: TEMP 98.1
[2022-12-08] MEDS: HEPARIN SODIUM,PORCINE/PF 5,000 UNIT/0.5 ML SYRINGE SQ SCH ×2 (08:46→16:29)
[2022-12-08] MEDS: FUROSEMIDE 10 MG/ML 4 ML VIAL IV SCH (08:46)
[2022-12-08] MEDS: THIAMINE 100 MG TAB PO SCH (08:46)
[2022-12-08] MEDS: METOPROLOL TARTRATE 25 MG TAB PO SCH (08:46)
[2022-12-08] MEDS: MULTIVITAMINS, THERA 1 EACH TAB PO SCH (08:46)
[2022-12-08] MEDS: AMIODARONE 200 MG TAB PO SCH (08:46)
[2022-12-08] MEDS: ASPIRIN 81 MG PO SCH (08:46)
[2022-12-08 11:59] LABS: African American GFR (CKD) >90 (>60 ml/min/1.73 sqM); Anion Gap 6 mmol/L; Blood Urea Nitrogen 9 mg/dL (9-20); Calcium 8.1 mg/dL (8.4-10.2); Carbon Dioxide 38 mmol/L (22-30); Chloride 93 mmol/L (98-107); Glucose 86 mg/dL (74-99); Magnesium 1.7 mg/dL (1.6-2.3); Non-African American GFR(CKD) >90 (>60 ml/min/1.73 sqM); Potassium 3.2 mmol/L (3.5-5.1); Sodium 137 mmol/L (137-145)
[2022-12-08 12:44] VITALS: BP 95/62; PULSE 98
[2022-12-08] MEDS ORDERED: POTASSIUM CHLORIDE ER 20 MEQ TAB.ER PO STA (13:30)
[2022-12-08] MEDS ORDERED: MAGNESIUM OXIDE 400 MG TAB PO STA (13:30)
--- NOTE | 2022-12-08 14:09 | P.DS ---
Providers Date of admission: 12/06/22 17:44 Expected date of discharge: 12/08/22 Attending physician: Benita Gambino DO Consults: 12/06/22 17:44 Consult Physician Routine Consulting Provider: Jaun Chaudhari Consult Reason/Comments: afib rvr Do you want consulting provider notified?: Yes Primary care physician: [facility] Course: Discharge Diagnosis: Atrial fibrillation with rapid ventricular response Acute exacerbation of chronic systolic congestive heart failure, ischemic cardiomyopathy with ejection fraction 30% Type II non-STEMI secondary to A. fib with RVR Hypokalemia Hypomagnesemia Acute hypoxic respiratory failure secondary to CHF and A. fib with RVR History of alcohol dependency, currently in remission Diabetes mellitus type 2 Chronic: Hypertension Dyslipidemia Nicotine dependency Hospital Course: Patient is a 57-year-old male with a systolic congestive heart failure ejection fraction 30%, A. fib not on anticoagulation due to recent bleeding in July, coronary artery disease status post multiple stents, extensive history of EtOH abuse with DTs and now cirrhosis, type 2 diabetes mellitus, and recent admission at subacute rehab for recovery from systolic congestive heart failure. He presented to the ER due to worsening shortness of breath and weakness. In the ER he underwent an extensive evaluation. Upon arrival his pulse was 180 and he was requiring a nonrebreather. Laboratory analysis was remarkable for troponin 0.206, sodium 136, CO2 15, magnesium 1.6, and bili of 1.4. EKG demonstrated A. fib with RVR. Patient was started on amiodarone due to borderline low blood pressures. He is also started on Lasix. He was admitted to the selective care unit for further monitoring. Cardiology was consulted. His amiodarone infusion was converted to oral amiodarone. He was restarted on his Lopressor. He diuresed well losing 9 kg in 48 hours. His breathing was back to baseline and he felt well. He was determined stable for discharge. Follow-up: Dr. Bob in 1 week, reestablish at the [facility], prescription for a walker was given for an antalgic gait. He is unable to have home health care because he does not have primary at this time. He was started on Lasix 20 mg daily and amiodarone 400 mg daily he will have a repeat basic metabolic profile and magnesium levels in 3 days. Patient seen and examined at bedside. Feeling much better. Denies any shortness of breath, nausea, vomiting. Feels comfortable going home. Vital signs reviewed and stable. General: nontoxic, no distress, appears at stated age Derm: warm, dry Head: atraumatic, normocephalic, symmetric Eyes: EOMI, no lid lag, anicteric sclera Mouth: no lip lesion, mucus membranes moist Cardiovascular: S1S2 reg, no murmur, positive posterior tibial pulse bilateral, Lungs: CTA bilateral, no rhonchi, no rales , no accessory muscle use Abdominal: soft, nontender to palpation, no guarding, no appreciable organomegaly Ext: no gross muscle atrophy, no edema, no contractures Neuro: CN II-XI grossly intact, no focal neuro deficits Psych: Alert, oriented, appropriate affect A total of 37 minutes of time were spent preparing this complex discharge summary. Patient was discharged on 12/08/22. This dictation was prepared using [employer] voice recognition software. Though every attempt is made to correct errors during during dictation some may still exist. Patient Condition at Discharge: Stable Plan - Discharge Summary New Discharge Prescriptions: New Furosemide [Lasix] 20 mg PO DAILY #30 tab Amiodarone [Cordarone] 400 mg PO BID #60 tablet Continue Atorvastatin [Lipitor] 80 mg PO HS Aspirin 81 mg PO DAILY tab Omeprazole [PriLOSEC] 20 mg PO DAILY Metoprolol Tartrate [Lopressor] 25 mg PO BID #60 tab DULoxetine HCL [Cymbalta] 60 mg PO HS ARIPiprazole [Abilify] 10 mg PO DAILY Discharge Medication List Atorvastatin [Lipitor] 80 mg PO HS 03/30/21 [History] DULoxetine HCL [Cymbalta] 60 mg PO HS 04/12/21 [History] Aspirin 81 mg PO DAILY tab 11/17/22 [Rx] ARIPiprazole [Abilify] 10 mg PO DAILY 12/06/22 [History] Omeprazole [PriLOSEC] 20 mg PO DAILY 12/06/22 [History] Amiodarone [Cordarone] 400 mg PO BID #60 tablet 12/08/22 [Rx] Furosemide [Lasix] 20 mg PO DAILY #30 tab 12/08/22 [Rx] Metoprolol Tartrate [Lopressor] 25 mg PO BID #60 tab 12/08/22 [Rx] Follow up Appointment(s)/Referral(s): None,Stated [REFERRING] - 1-2 days [facility] [Primary Care Provider] - 1 Week Jaun Chaudhari MD [STAFF PHYSICIAN] - 3 Weeks Ambulatory/Diagnostic Orders: Basic Metabolic Panel [LAB.AMB] Time Frame: 3 Days, Location: None Selected Magnesium [LAB.AMB] Location: None Selected Activity/Diet/Wound Care/Special Instructions: Activity: As tolerated Diet: 2 gram sodium, 2L fluid restriction Special Instructions: Take your blood pressure daily and make a log to bring to your appointment with Dr. Chaudhari. Do not hold your metoprolol unless your top number is less than 85 or bottom number is less than 55. Take your weight daily and make a log call Dr. Chaudhari if you gain greater than 3 pounds in 1 day or 5 pounds in 3 days. Discharge/Stand Alone Forms: AA Meetings [place], Community Resources, Outpat ient Counseling, Inp Substance Abuse Facilities, Personal Sap Bi Developer Discharge Disposition: HOME SELF-CARE
--- NOTE | 2022-12-09 00:09 | PN ---
PROGRESS NOTE SUBJECTIVE: This is a 57-year-old gentleman with history of coronary artery disease, hypertension, dyslipidemia, atrial fibrillation, is admitted to hospital with atrial fibrillation with rapid ventricular rate. He is not a candidate for anticoagulant. MEDICATIONS: Currently on, 1. Amiodarone 400 b.i.d. 2. Aspirin. 3. Lasix. 4. Lopressor. OBJECTIVE: GENERAL: Feeling better. Heart rate is well controlled. VITAL SIGNS: Stable. Heart rate is 98 beats per minute, blood pressure is 94/62, respiratory rate is 18, and O2 saturation is 97% on room air. NECK: There is no jugular venous distention. Carotid upstroke is normal. There is no bruit. CHEST: Reveals good air entry bilaterally. HEART: Reveals first and second heart sounds. No gallop. Has a systolic murmur at the left lower sternal border. ABDOMEN: Soft. EXTREMITIES: Did not reveal any edema. Peripheral pulses are felt. ASSESSMENT: 1. Persistent atrial fibrillation with rapid ventricular rate. Elevated troponin secondary to type 2 mechanism. 2. Noncompliance. 3. Acute on chronic systolic heart failure. 4. CAD. PLAN: Continue current medications. Hopefully home later today, and follow up with me over the next several weeks. MMODL / IJN: [id number] /
== END 2022-12-08 17:27 | disposition home or self-care (01) | DRG 201 ==
LOC: EC 14:12 → 3SCARD 17:44
PROVIDERS: ADMIT Internal Medicine; ATTEND Internal Medicine
DX: I48.19 Other persistent atrial fibrillation (principal); I11.0 Hypertensive heart disease with heart failure; I50.23 Acute on chronic systolic (congestive) heart failure; I21.A1 Myocardial infarction type 2; E87.6 Hypokalemia; J96.01 Acute respiratory failure with hypoxia; E11.9 Type 2 diabetes mellitus without complications; E78.5 Hyperlipidemia, unspecified; F17.210 Nicotine dependence, cigarettes, uncomplicated; F31.9 Bipolar disorder, unspecified; F43.10 Post-traumatic stress disorder, unspecified; I25.10 Atherosclerotic heart disease of native coronary artery without angina pectoris; I25.2 Old myocardial infarction; I25.5 Ischemic cardiomyopathy; I31.39 Other pericardial effusion (noninflammatory); I27.20 Pulmonary hypertension, unspecified; K58.9 Irritable bowel syndrome, unspecified; J44.0 Chronic obstructive pulmonary disease with (acute) lower respiratory infection; K74.60 Unspecified cirrhosis of liver; M41.9 Scoliosis, unspecified; I08.1 Rheumatic disorders of both mitral and tricuspid valves; F10.20 Alcohol dependence, uncomplicated; Z79.82 Long term (current) use of aspirin; Z79.899 Other long term (current) drug therapy; G89.29 Other chronic pain; D50.9 Iron deficiency anemia, unspecified; Z82.49 Family history of ischemic heart disease and other diseases of the circulatory system; Z87.442 Personal history of urinary calculi; Z91.199 Patient's noncompliance with other medical treatment and regimen due to unspecified reason; R00.0 Tachycardia, unspecified; Z95.5 Presence of coronary angioplasty implant and graft; Z98.84 Bariatric surgery status; E83.42 Hypomagnesemia; Z79.01 Long term (current) use of anticoagulants; Z91.041 Radiographic dye allergy status; Z71.41 Alcohol abuse counseling and surveillance of alcoholic; Z87.19 Personal history of other diseases of the digestive system; Z87.01 Personal history of pneumonia (recurrent)
CPT/HCPCS: 36415; 71046; 80048; 80053; 83735; 83880; 84443; 84484; 85025; 85027; 85610; 85730; 93005; 94760; 96365; 96366; 96368; 99291

== ENCOUNTER 2023-06-28 03:19 | Inpatient (IN) | payer MEDICARE, OTHER ==
[2023-06-28] MEDS ORDERED: SODIUM CHLORIDE 0.9% 1,000 ML IV STA (03:21)
--- NOTE | 2023-06-28 03:23 | ED ---
Chest Pain HPI - General Stated Complaint: Chest pain Time Seen by Provider: 06/28/23 03:21 Source: RN notes reviewed, old records reviewed Limitations: no limitations, altered mental status (Suspect intoxication) - History of Present Illness Initial Comments: This is a 57-year-old male to the emergency room in today for evaluation regards to chest pain chest pain since last night. Chest pain has been persistent breathing over the ER today. Patient has history of heart disease. Patient is recent fever cough or congestion of travel show sick contacts no other complaints MD Complaint: chest pain -: days(s) Onset: during rest, during exertion Pain Location: left chest Pain Radiation: none Severity: moderate Quality: tightness, aching, heaviness Consistency: constant Improves With: nothing Worsens With: nothing Anginal Symptoms: diaphoresis, dyspnea, sense of impending doom Other Symptoms: palpitations Treatments Prior to Arrival: none - Related Data Home Medications Medication Instructions Recorded Confirmed Atorvastatin [Lipitor] 80 mg PO HS 03/30/21 06/28/23 Omeprazole [PriLOSEC] 20 mg PO DAILY 12/06/22 06/28/23 Amiodarone [Cordarone] 200 mg PO DAILY 06/28/23 06/28/23 DULoxetine HCL [Cymbalta] 60 mg PO DAILY 06/28/23 06/28/23 Multivit with Calcium,Iron,Min 1 tab PO DAILY 06/28/23 06/28/23 [Women's Daily Formula] Previous Rx's Medication Instructions Recorded Aspirin 81 mg PO DAILY tab 11/17/22 Metoprolol Tartrate [Lopressor] 25 mg PO BID #60 tab 12/08/22 Allergies Allergy/AdvReac Type Severity Reaction Status Date / Time Iodinated Contrast Media Allergy Itching-see Verified 06/28/23 08:09 comment Review of Systems ROS Statement: Those systems with pertinent positive or pertinent negative responses have been documented in the HPI. ROS Other: All systems not noted in ROS Statement are negative. EKG Findings - EKG Comments: EKG Findings:: EKG is sinus 99 QRS 125 QTc 453 - EKG Results: EKG: interpreted by TIM Past Medical History Past Medical History: COPD, GERD/Reflux, GI Bleed, Hypertension, Myocardial Infarction (NV), Pneumonia, Skin Disorder Additional Past Medical History / Comment(s): ETOH abuse with delirium tremors, lower GI bleed, IBS, chronic iron deficiency anemia, hypomagnesemia, hyperbilirubinemia, anorexia, vertigo, nephrolithiasis-passed stone on his own, chronic low back/cervical pain, DDD, kyphosis, scoliosis, coccyx pressure ulcer pt states is mostly healed. Dry and itchy skin back in high school. 2 heart attacks, one in December (2020) second in February (2020). Last Myocardial Infarction Date:: February 2021 History of Any Multi-Drug Resistant Organisms: None Reported Past Surgical History: Bariatric Surgery, Heart Catheterization With Stent, Hernia Repair, Orthopedic Surgery, Tonsillectomy Additional Past Surgical History / Comment(s): Right inner Forearm-metal plate, gastric bypass, incisional hernia surgery x2, EGDs, colonoscopies. 2 Stents placed in December 2020; bilateral knee surgeries Past Anesthesia/Blood Transfusion Reactions: No Reported Reaction Date of Last Stent Placement:: 2020 Past Psychological History: Anxiety, Bipolar, Depression, PTSD Additional Psychological History / Comment(s): Pt resides in a friends home where he rents a room. He now has a car and drives. Pt states his depression is stable at this time, no thoughts or plans of suicide. He has had multiple mental health unit admissions. He has ETOH abuse. He goes to [facility]. Smoking Status: Current every day smoker Past Alcohol Use History: Abuse, Daily Additional Past Alcohol Use History / Comment(s): Pt started smokingin 1979 and is a 1.5 -2ppd smoker. He drinks on average 12 beers /day 4-5 days a week or 1- 2 fifths per day Past Drug Use History: None Reported Additional Drug Use History / Comment(s): Pt still uses marijuana on occasion, but quit all other drugs 4-5 years ago. - Past Family History Mother History Unknown: Yes Family Medical History: Hypertension Additional Family Medical History / Comment(s): Lupus. Mother is living. Father History Unknown: Yes Family Medical History: Liver Disease Additional Family Medical History / Comment(s): ETOH abuse. of cirrhosis complications. General Exam General appearance: alert, in no apparent distress Head exam: Present: atraumatic, normocephalic, normal inspection Eye exam: Present: normal appearance, PERRL, EOMI. Absent: scleral icterus, conjunctival injection, periorbital swelling ENT exam: Present: normal exam, mucous membranes moist Neck exam: Present: normal inspection. Absent: tenderness, meningismus, lymphadenopathy Respiratory exam: Present: normal lung sounds bilaterally. Absent: respiratory distress, wheezes, rales, rhonchi, stridor Cardiovascular Exam: Present: regular rate, normal rhythm, normal heart sounds. Absent: systolic murmur, diastolic murmur, rubs, gallop, clicks GI/Abdominal exam: Present: soft, normal bowel sounds. Absent: distended, tenderness, guarding, rebound, rigid Extremities exam: Present: normal inspection, full ROM, normal capillary refill. Absent: tenderness, pedal edema, joint swelling, calf tenderness Back exam: Present: normal inspection Neurological exam: Present: alert, oriented X3, CN II-XII intact Psychiatric exam: Present: normal affect, normal mood Skin exam: Present: warm, dry, intact, normal color. Absent: rash Course Vital Signs 06/28/23 06/28/23 06/28/23 03:20 04:25 05:00 Temperature 98.1 F Pulse Rate 99 92 92 Respiratory 22 17 14 Rate Blood Pressure 105/66 97/64 102/65 O2 Sat by Pulse 97 97 96 Oximetry 06/28/23 06/28/23 06/28/23 06:00 07:43 08:50 Temperature Pulse Rate 94 99 98 Respiratory 18 20 16 Rate Blood Pressure 101/66 98/58 91/50 O2 Sat by Pulse 96 96 98 Oximetry 06/28/23 06/28/23 06/28/23 09:56 14:23 18:00 Temperature Pulse Rate 99 78 84 Respiratory 20 18 18 Rate Blood Pressure 100/60 105/73 111/71 O2 Sat by Pulse 97 99 96 Oximetry - Reevaluation(s) Reevaluation #1: 06/28/23 03:43 Patient records have been reviewed Reevaluation #2: 06/28/23 06:11 Patient has persistent chest pain here in the ER Reevaluation #3: 06/28/23 06:11 patient informed results questions answered Reevaluation #4: 06/28/23 03:44 Was pt. sent in by a medical professional or institution (, PA, SURGICAL INSTRUMENT MECHANIC, urgent care, hospital, or [facility]...) When possible be specific @ -no Did you speak to anyone other than the patient for history (EMS, parent, family, police, friend...)? What history was obtained from this source @ -no Did you review nursing and triage notes (agree or disagree)? Why? @ -agree Are old charts reviewed (outside hosp., previous admission, EMS record, old EKG, old radiological studies, urgent care reports/EKG's, [facility] records)? Report findings @ -yes Differential Diagnosis (chest pain, altered mental status, abdominal pain women, abdominal pain men, vaginal bleeding, weakness, fever, dyspnea, syncope, headache, dizziness, GI bleed, back pain, seizure, CVA, palpatations, mental health, musculoskeletal)? @ -prior EKG interpreted by me (3pts min.). @ -yes X-rays interpreted by me (1pt min.). @ -yes negative for acute disease CT interpreted by me (1pt min.). @ -no U/S interpreted by me (1pt. min.). @ -no What testing was considered but not performed or refused? (CT, X-rays, U/S, labs)? Why? @ -none What meds were considered but not given or refused? Why? @ -none Did you discuss the management of the patient with other professionals (professionals i.e. , PA, SURGICAL INSTRUMENT MECHANIC, lab, RT, psych nurse, social work nurse, manipulator operator, teacher, strategic intelligence officer, lining caser)? Give summary @ -no Was smoking cessation discussed for >3mins.? @ -no Was critical care preformed (if so, how long)? @ -yes31 Were there social determinants of health that impacted care today? How? (Homelessness, low income, unemployed, alcoholism, drug addiction, transportation, low edu. Level, literacy, decrease access to med. care, long term, rehab)? @ -none Was there de-escalation of care discussed even if they declined (Discuss DNR or withdrawal of care, Hospice)? DNR status @ -no What co-morbidities impacted this encounter? (DM, HTN, Smoking, COPD, CAD, Cancer, CVA, ARF, Chemo, Hep., AIDS, mental health diagnosis, sleep apnea, morbid obesity)? @ -none Was patient admitted / discharged? Hospital course, mention meds given and route, prescriptions, significant lab abnormalities, going to OR and other pertinent info. @ - 57 male to the emergency department for evaluation significant heart dise ase. Patient's coming in for chest pain today and has been found to have an elevated troponin with no EKG changes. Significant alcohol intoxication. Patient symptoms are persistent here in the ER with significant intoxication as well. Patient be admitted for cardiology evaluation management Admitted Undiagnosed new problem with uncertain prognosis? @ -no Drug Therapy requiring intensive monitoring for toxicity (Heparin, Nitro, Insulin, Cardizem)? @ -no Were any procedures done? @ -no Diagnosis/symptom? @ -Non-STEMI, ACS Acute, or Chronic, or Acute on Chronic? @ -Acute Uncomplicated (without systemic symptoms) or Complicated (systemic symptoms)? @ -Complicated Side effects of treatment? @ -no Exacerbation, Progression, or Severe Exacerbation? @ -exacerbation Poses a threat to life or bodily function? How? (Chest pain, USA, NV, pneumonia, PE, COPD, DKA, ARF, appy, cholecystitis, CVA, Diverticulitis, Homicidal, Suicidal, threat to staff... and all critical care pts) @ -yes significant ACS Reevaluation #5: 06/28/23 03:44 Differential Chest Pain: Stable Angina, Unstable Angina, STEMI, NSTEMI Aortic Dissection, Pneumothorax, Musculoskeletal, Esophageal Spasm GERD, Cholecystitis, Pancreatitis, Zoster, this is not meant to be an all-inclusive list. - Consultations Consultation #1: Spoke with sound who will admit this patient Chest Pain MDM - MDM 57 male to the emergency department for evaluation significant heart disease. Patient's coming in for chest pain today and has been found to have an elevated troponin with no EKG changes. Significant alcohol intoxication. Patient symptoms are persistent here in the ER with significant intoxication as well. Patient be admitted for cardiology evaluation management Critical Care Time Critical Care Time: Yes Total Critical Care Time: 31 Disposition Clinical Impression: Acute non-ST elevation myocardial infarction (NSTEMI), Elevated troponin, Alcohol intoxication, Unstable angina pectoris Disposition: ADMITTED IP TO THIS HOSP Condition: Serious Is patient prescribed a controlled substance at d/c from ED?: No Time of Disposition: 06:00
[2023-06-28 03:40] LABS: Anisocytosis Slight; Basophils % (A) 0 %; Eosinophils % (A) 0 %; HCT 33.9 % (39.0-53.0); HGB 10.7 gm/dL (13.0-17.5); Hypochromasia Marked; Lymphocytes % (A) 13 %; MCH 27.1 pg (25.0-35.0); MCHC 31.5 g/dL (31.0-37.0); MCV 86.1 fL (80.0-100.0); Mean Platelet Volume 7.3; Monocytes # (A) 0.5 k/uL (0-1.0); Monocytes % (A) 7 %; Neutrophils # (A) 5.8 k/uL (1.3-7.7); Neutrophils % (A) 76 %; Platelet Count 302 k/uL (150-450); RBC 3.93 m/uL (4.30-5.90); RDW 17.8 % (11.5-15.5); WBC 7.7 k/uL (3.8-10.6)
[2023-06-28 03:49] LABS: INR 0.9 (<1.2); Partial Thromboplastin Time 24.4 sec (22.0-30.0); Prothrombin Time 9.7 sec (10.0-12.5)
[2023-06-28 03:57] LABS: ALT 36 U/L (4-49); AST 86 U/L (17-59); African American GFR (CKD) >90 (>60 ml/min/1.73 sqM); Albumin 3.9 g/dL (3.5-5.0); Alkaline Phosphatase 73 U/L (38-126); Anion Gap 21 mmol/L; Blood Urea Nitrogen 13 mg/dL (9-20); Calcium 8.5 mg/dL (8.4-10.2); Carbon Dioxide 16 mmol/L (22-30); Chloride 99 mmol/L (98-107); Glucose 213 mg/dL (74-99); Lipase 64 U/L (23-300); Magnesium 1.5 mg/dL (1.6-2.3); Non-African American GFR(CKD) >90 (>60 ml/min/1.73 sqM); Sodium 136 mmol/L (137-145); Total Bilirubin 0.6 mg/dL (0.2-1.3); Total Protein 6.7 g/dL (6.3-8.2)
[2023-06-28 04:05] LABS: NT-Pro-B-Type Natriuretic Pept 4340 pg/mL
[2023-06-28 05:06] LABS: Alcohol 195 mg/dL
[2023-06-28] MEDS ORDERED: MORPHINE SULFATE 4 MG/ML SYRINGE IV PRN (05:59)
[2023-06-28] MEDS ORDERED: NALOXONE 0.4 MG/ML 1 ML VIAL IV PRN (05:59)
[2023-06-28] MEDS ORDERED: HEPARIN SODIUM 1,000 UN/ML (10ML VL) IV PRN (05:59)
[2023-06-28] MEDS ORDERED: ONDANSETRON 4 MG/2 ML VIAL IVP PRN (05:59)
[2023-06-28] MEDS ORDERED: HEPARIN SODIUM 1,000 UN/ML (10ML VL) IV ONE (05:59)
[2023-06-28] MEDS ORDERED: LORazepam 2 MG/ML INJ IV PRN ×2 (05:59)
[2023-06-28] MEDS: HEPARIN SOD,PORK IN 0.45% NACL 25,000 UNIT in 0.45% NACL 1 250ML.BAG IV SCH (06:26)
[2023-06-28] MEDS: SODIUM CHLORIDE 0.9% 1,000 ML IV SCH (06:30)
--- NOTE | 2023-06-28 06:37 | XR ---
EXAM: XR Chest, 1 View CLINICAL HISTORY: ITS.REASON XR Reason: cp TECHNIQUE: Frontal view of the chest. COMPARISON: CT chest performed 10/25/22 FINDINGS: Lungs: Suspect atelectasis in the left lower lobe. No consolidation. Pleural space: Unremarkable. No pneumothorax. Heart: Moderate cardiomegaly. Mediastinum: Normal mediastinal contour. Bones/joints: Suspected healing rib fractures on the right. Upper abdomen: Stable elevation of the left hemidiaphragm. IMPRESSION: No radiographic evidence of acute cardiopulmonary process, allowing for portable technique.
[2023-06-28] MEDS: THIAMINE 100 MG TAB PO SCH (07:38)
[2023-06-28] MEDS: ASPIRIN 81 MG PO SCH (07:38)
[2023-06-28] MEDS: FOLIC ACID 1 MG TAB PO SCH (07:38)
[2023-06-28] MEDS: MULTIVITAMINS, THERA 1 EACH TAB PO SCH (07:39)
[2023-06-28] MEDS ORDERED: ALPRAZolam 0.25 MG TAB PO PRN (08:28)
[2023-06-28] MEDS ORDERED: NITROGLYCERIN SL TABS 0.4 MG TAB SUBLINGUAL PRN (08:28)
[2023-06-28] MEDS ORDERED: ALPRAZolam 0.5 MG TAB PO PRN (08:28)
[2023-06-28] MEDS ORDERED: SODIUM CHLORIDE 0.9% 500 ML 500 ML IV ONE (08:36)
[2023-06-28] MEDS ORDERED: ASPIRIN 81 MG PO SCH (09:00)
[2023-06-28] MEDS: METOPROLOL TARTRATE 25 MG TAB PO SCH ×2 (09:53→21:55)
[2023-06-28] MEDS: AMIODARONE 200 MG TAB PO SCH (09:53)
--- NOTE | 2023-06-28 10:30 | P.HPIM ---
History of Present Illness H&P Date: 06/28/23 Chief Complaint: chest pain 57 -year-old man with medical history of CAD status post PCI in 2020, alcohol use disorder, proximal atrial fibrillation, active smoker, recent incarceration, hypertension, hyperlipidemia presented for chest pain. Patient says that last I started to develop chest pain which is all across his chest, pressure-like in nature. He said that this pain felt similar to when he had heart attacks in the past. Normally, he takes nitroglycerin, but when he tried that at home he did not have any relief prompting him to come to the hospital for further evaluation. Patient denies fevers, chills. Reports nausea, sweats. Denies palpitations, cough, dyspnea, abdominal pain, constipation, diarrhea, dysuria, dyschezia, numbness/weakness of extremities. In the emergency room, patient was afebrile, 105/66, heart rate 99, 97% on room air. CBC remarkable for anemia, 10.7. Basic metabolic panel remarkable for anion gap 21, CO2 of 16. Liver function tests remarkable for AST of 86, ALT of 39. Lipase was 64. Troponin is 1.58. Alcohol level is 195. Coags are unremarkable. EKG demonstrates normal sinus rhythm with normal axis, no ST-T changes concerning for ischemia. Chest x-ray demonstrates cardiomegaly with mildly increased pulmonary vascularity and interstitial markings, left diaphragmatic hernia. All Systems reviewed and pertinent positives and negatives noted in HPI, all other symptoms are negative Gen: in no apparent distress, resting comfortably in bed Eyes: PERRL, no scleral injection or icterus HENT: normocephalic, atraumatic, good hearing acuity, moist mucous membranes Neck: no tracheal deviation, full range of motion Resp: good air exchange, breathing comfortably with no accessory muscle use, no tactile fremitus CVS: good distal perfusion x 4, no pitting edema GI: soft, NTTP, ND, no hepatosplenomegaly : no suprapubic tenderness, no CVAT, guillermo catheter not present MSK: no clubbing, no cyanosis, no noted contractures of extremities Skin: no noted rashes, petechiae; temperature of skin is appropriate Neuro: moving all extremities without signs of weakness, CN II-XII intact Psych: cooperative, euthymic mood, insight and judgment intact Labs and imaging as above Assessment/plan: Non-ST elevation myocardial infarction CAD -Patient was admitted inpatient -Cardiology was consulted -Restart aspirin 81 mg daily, metoprolol 25 mg twice a day, atorvastatin 80 mg at bedtime -Continue heparin drip, follow PTT for toxicity -Echocardiogram ordered -Nothing by mouth in case of heart catheterization -Trend troponins -Monitor on telemetry Chronic systolic heart failure, ejection fraction 30-35% Severe pulmonary hypertension, class II Chronic right heart failure -Echocardiogram as above -Strict ins and outs, daily weights -Patient appears euvolemic, hold off on Lasix at this time -Goal-directed medical therapy: -Continue metoprolol as above -Patient is not on JUAN inhibitor, spironolactone, SGLT 2 inhibitor - will need to add as tolerated after ischemic work up -If ejection fraction is still reduced, patient should be considered for AICD Alcohol use disorder with dependence, severe Alcohol withdrawal syndrome Nicotine Use -[facility] protocol -Thiamine, folate, multivitamin -Ativan when necessary -Cessation counseling -Nicotine patch if requested Paroxysmal atrial fibrillation Hypertension Hyperlipidemia -Continue amiodarone, metoprolol, atorvastatin Patient is full code Past Medical History Past Medical History: COPD, GERD/Reflux, GI Bleed, Hypertension, Myocardial Infarction ([place]), Pneumonia, Skin Disorder Additional Past Medical History / Comment(s): ETOH abuse with delirium tremors, lower GI bleed, IBS, chronic iron deficiency anemia, hypomagnesemia, hyperbilirubinemia, anorexia, vertigo, nephrolithiasis-passed stone on his own, chronic low back/cervical pain, DDD, kyphosis, scoliosis, coccyx pressure ulcer pt states is mostly healed. Dry and itchy skin back in high school. 2 heart attacks, one in December (2020) second in February (2020). Last Myocardial Infarction Date:: February 2021 History of Any Multi-Drug Resistant Organisms: None Reported Past Surgical History: Bariatric Surgery, Heart Catheterization With Stent, Hernia Repair, Orthopedic Surgery, Tonsillectomy Additional Past Surgical History / Comment(s): Right inner Forearm-metal plate, gastric bypass, incisional hernia surgery x2, EGDs, colonoscopies. 2 Stents placed in December 2020; bilateral knee surgeries Past Anesthesia/Blood Transfusion Reactions: No Reported Reaction Date of Last Stent Placement:: 2020 Past Psychological History: Anxiety, Bipolar, Depression, PTSD Additional Psychological History / Comment(s): [facility] he rents a room. He now has a car and drives. Pt states his depression is stable at this time, no thoughts or plans of suicide. He has had multiple mental health unit admissions. He has ETOH abuse. He goes to [facility]. Smoking Status: Current every day smoker Past Alcohol Use History: Abuse, Daily Additional Past Alcohol Use History / Comment(s): Pt started smokingin 1979 and is a 1.5 -2ppd smoker. He drinks on average 12 beers /day 4-5 days a week or 1- 2 fifths per day Past Drug Use History: None Reported Additional Drug Use History / Comment(s): Pt still uses marijuana on occasion, but quit all other drugs 4-5 years ago. - Past Family History Mother History Unknown: Yes Family Medical History: Hypertension Additional Family Medical History / Comment(s): Lupus. Mother is living. Father History Unknown: Yes Family Medical History: Liver Disease Additional Family Medical History / Comment(s): ETOH abuse. of cirrhosis complications. Medications and Allergies Home Medications Medication Instructions Recorded Confirmed Type Atorvastatin [Lipitor] 80 mg PO HS 03/30/21 06/28/23 History Aspirin 81 mg PO DAILY tab 11/17/22 06/28/23 Rx Omeprazole [PriLOSEC] 20 mg PO DAILY 12/06/22 06/28/23 History Metoprolol Tartrate [Lopressor] 25 mg PO BID #60 tab 12/08/22 06/28/23 Rx Amiodarone [Cordarone] 200 mg PO DAILY 06/28/23 06/28/23 History DULoxetine HCL [Cymbalta] 60 mg PO DAILY 06/28/23 06/28/23 History Multivit with Calcium,Iron,Min 1 tab PO DAILY 06/28/23 06/28/23 History [Women's Daily Formula] Allergies Allergy/AdvReac Type Severity Reaction Status Date / Time Iodinated Contrast Media Allergy Itching-see Verified 06/28/23 08:09 comment Physical Exam Osteopathic Statement: *. No significant issues noted on an osteopathic structural exam other than those noted in the History and Physical/Consult. Vitals: Vital Signs Temp Pulse Resp BP Pulse Ox 06/28/23 09:56 99 20 100/60 97 06/28/23 08:50 98 16 91/50 98 06/28/23 07:43 99 20 98/58 96 06/28/23 06:00 94 18 101/66 96 06/28/23 05:00 92 14 102/65 96 06/28/23 04:25 92 17 97/64 97 06/28/23 03:20 98.1 F 99 22 105/66 97 Intake and Output 06/27/23 06/28/23 06/28/23 22:59 06:59 14:59 Other: Weight 77.111 kg Results CBC & Chem 7: 06/28/23 03:30 06/28/23 03:30 Labs: Abnormal Lab Results - Last 24 Hours (Table) 06/28/23 06/28/23 06/28/23 Range/Units 03:30 03:30 03:30 RBC 3.93 L (4.30-5.90) m/uL Hgb 10.7 L (13.0-17.5) gm/dL Hct 33.9 L (39.0-53.0) % RDW 17.8 H (11.5-15.5) % PT 9.7 L (10.0-12.5) sec Sodium 136 L (137-145) mmol/L Carbon Dioxide 16 L (22-30) mmol/L Creatinine 0.63 L (0.66-1.25) mg/dL Glucose 213 H (74-99) mg/dL Magnesium 1.5 L (1.6-2.3) mg/dL AST 86 H (17-59) U/L Troponin I (0.000-0.034) ng/mL 06/28/23 Range/Units 03:30 RBC (4.30-5.90) m/uL Hgb (13.0-17.5) gm/dL Hct (39.0-53.0) % RDW (11.5-15.5) % PT (10.0-12.5) sec Sodium (137-145) mmol/L Carbon Dioxide (22-30) mmol/L Creatinine (0.66-1.25) mg/dL Glucose (74-99) mg/dL Magnesium (1.6-2.3) mg/dL AST (17-59) U/L Troponin I 1.580 H* (0.000-0.034) ng/mL
--- NOTE | 2023-06-28 10:34 | P.CRDCN ---
History of Present Illness Consult date: 06/28/23 Consult reason: chest pain History of present illness: History of present illness: This is a 57-year-old male patient of Dr. Sheldon Chaudhari with past medical history of coronary artery disease status post angioplasty of the LAD with an anterior wall myocardial infarction, chronic total occlusion of the right coronary artery, bipolar disorder, history of alcohol abuse, paroxysmal atrial fibrillation, hypertension, hyperlipidemia. We have been asked to evaluate the patient for chest pain. Patient states he had sudden onset yesterday of chest pain around 8 PM. The pain was worse with movement and with deep breathing. He states he's had the pain on and off. He states he has dizziness with standing sometimes. He denies any palpitations no lower extremity edema. No blood in his urine or stool. No syncopal episodes. Patient is active smoker and active alcohol abuse use. Patient has been started on the CIWA protocol. Patient is seen today in the emergency center waiting for a bed on the cardiac stepdown unit. EKG sinus rhythm with no acute ST changes Chest x-ray: No acute cardio pulmonary process WBC 7.7, hemoglobin 10.7, platelet count 302. INR 0.9. Sodium 136, potassium 4, CO2 16, BUN 13 creatinine 0.63. Blood sugar 213. Magnesium 1.5. AST 86 otherwise liver function tests are within normal limits. Troponin 1.580. Pro BNP 4340. Albumin 3.9. Lipase 64. Serum alcohol 195. Home cardiac medications: Amiodarone 200 mg daily, aspirin 81 mg daily, Lipitor 80 mg at bedtime, Lopressor 25 mg twice daily Most recent echocardiogram obtained in October 2022 revealing ejection fraction 30-35% hypokinesia of the mid to distal anterior septal a periumbilical and anterior lateral wall, severe pulmonary hypertension, moderate mitral regurgitation, and mild to moderate tricuspid regurgitation, with small pericardial effusion Cardiac catheterization history: December 2020 revealing acutely occluded mid LAD with successful stenting of that segment with chronic occlusion of the distal LAD. Chronic occlusion of the proximal right RCA, mild disease in the proximal left circumflex. Severely calcified coronary arteries. Severe tortuosity of the aorta as well as the right subclavian Review Of Systems: At the time of my exam: CONSTITUTIONAL: Denies fever or chills. CARDIOVASCULAR: Denies chest pain, Denies shortness of breath, no orthopnea, PND or palpitations. RESPIRATORY: Denies cough. GASTROINTESTINAL: Denies abdominal pain, diarrhea, constipation, nausea or vomiting. MUSCULOSKELETAL: Denies myalgias. NEUROLOGIC: Denies numbness, tingling or weakness. ENDOCRINE: Denies fatigue, weight change, polydipsia or polyurina. GENITOURINARY: Denies burning, hematuria or urgency with micturation. HEMATOLOGIC: Denies history of anemia or bleeding. Physical examination: Gen: This is a 57-year-old male. He is resting in the ER and appears to be comfortable in no acute distress VS: reviewed HEENT: Head is atraumatic, normocephalic. Pupils equal, round. Sclerae is anicteric. NECK: Supple. No JVD. LUNGS: Clear to auscultation. No wheezes or rhonchi. No intercostal retractions. HEART: Regular rate and rhythm. Systolic murmur. ABDOMEN: Soft No tenderness. EXTREMITIES: No pedal edema. No calf tenderness. NEUROLOGICAL: Patient is awake, alert and oriented. Assessment: Non-ST elevated myocardial infarction History of coronary artery disease Paroxysmal atrial fibrillation not on anticoagulation due to noncompliance and alcohol abuse Hypertension Dyslipidemia Plan: Fluid bolus of 500 mL normal saline Resume patient's home cardiac medications Obtain 2-D echocardiogram and Doppler study to assess cardiac structure and function Schedule patient for cardiac catheterization tomorrow with Dr. Sheldon Chaudhari Further recommendations to follow based upon clinical course Thank you kindly for this consultation. Nurse practitioner note has been reviewed, I agree with documented findings and plan of care. Patient was seen and examined. Past Medical History Past Medical History: COPD, GERD/Reflux, GI Bleed, Hypertension, Myocardial Infarction ([place]), Pneumonia, Skin Disorder Additional Past Medical History / Comment(s): ETOH abuse with delirium tremors, lower GI bleed, IBS, chronic iron deficiency anemia, hypomagnesemia, hyperbilirubinemia, anorexia, vertigo, nephrolithiasis-passed stone on his own, chronic low back/cervical pain, DDD, kyphosis, scoliosis, coccyx pressure ulcer pt states is mostly healed. Dry and itchy skin back in high school. 2 heart attacks, one in December (2020) second in February (2020). Last Myocardial Infarction Date:: February 2021 History of Any Multi-Drug Resistant Organisms: None Reported Past Surgical History: Bariatric Surgery, Heart Catheterization With Stent, Hernia Repair, Orthopedic Surgery, Tonsillectomy Additional Past Surgical History / Comment(s): Right inner Forearm-metal plate, gastric bypass, incisional hernia surgery x2, EGDs, colonoscopies. 2 Stents placed in December 2020; bilateral knee surgeries Past Anesthesia/Blood Transfusion Reactions: No Reported Reaction Date of Last Stent Placement:: 2020 Past Psychological History: Anxiety, Bipolar, Depression, PTSD Additional Psychological History / Comment(s): Pt resides in a friends home where he rents a room. He now has a car and drives. Pt states his depression is stable at this time, no thoughts or plans of suicide. He has had multiple mental health unit admissions. He has ETOH abuse. He goes to [facility]. Smoking Status: Current every day smoker Past Alcohol Use History: Abuse, Daily Additional Past Alcohol Use History / Comment(s): Pt started smokingin 1979 and is a 1.5 -2ppd smoker. He drinks on average 12 beers /day 4-5 days a week or 1- 2 fifths per day Past Drug Use History: None Reported Additional Drug Use History / Comment(s): Pt still uses marijuana on occasion, but quit all other drugs 4-5 years ago. - Past Family History Mother History Unknown: Yes Family Medical History: Hypertension Additional Family Medical History / Comment(s): Lupus. Mother is living. Father History Unknown: Yes Family Medical History: Liver Disease Additional Family Medical History / Comment(s): ETOH abuse. of cirrhosis complications. Medications and Allergies Home Medications Medication Instructions Recorded Confirmed Type Atorvastatin [Lipitor] 80 mg PO HS 03/30/21 06/28/23 History Aspirin 81 mg PO DAILY tab 11/17/22 06/28/23 Rx Omeprazole [PriLOSEC] 20 mg PO DAILY 12/06/22 06/28/23 History Metoprolol Tartrate [Lopressor] 25 mg PO BID #60 tab 12/08/22 06/28/23 Rx Amiodarone [Cordarone] 200 mg PO DAILY 06/28/23 06/28/23 History DULoxetine HCL [Cymbalta] 60 mg PO DAILY 06/28/23 06/28/23 History Multivit with Calcium,Iron,Min 1 tab PO DAILY 06/28/23 06/28/23 History [Women's Daily Formula] Allergies Allergy/AdvReac Type Severity Reaction Status Date / Time Iodinated Contrast Media Allergy Itching-see Verified 06/28/23 08:09 comment Physical Exam Vitals: Vital Signs Temp Pulse Resp BP Pulse Ox 06/28/23 07:43 99 20 98/58 96 06/28/23 06:00 94 18 101/66 96 06/28/23 05:00 92 14 102/65 96 06/28/23 04:25 92 17 97/64 97 06/28/23 03:20 98.1 F 99 22 105/66 97 Intake and Output 06/27/23 06/28/23 06/28/23 22:59 06:59 14:59 Other: Weight 77.111 kg Results 06/28/23 03:30 06/28/23 03:30 Cardiac Enzymes 06/28/23 06/28/23 Range/Units 03:30 03:30 AST 86 H (17-59) U/L Troponin I 1.580 H* (0.000-0.034) ng/mL Coagulation 06/28/23 Range/Units 03:30 PT 9.7 L (10.0-12.5) sec APTT 24.4 (22.0-30.0) sec CBC 06/28/23 Range/Units 03:30 WBC 7.7 (3.8-10.6) k/uL RBC 3.93 L (4.30-5.90) m/uL Hgb 10.7 L (13.0-17.5) gm/dL Hct 33.9 L (39.0-53.0) % Plt Count 302 (150-450) k/uL Comprehensive Metabolic Panel 06/28/23 Range/Units 03:30 Sodium 136 L (137-145) mmol/L Potassium 4.0 (3.5-5.1) mmol/L Chloride 99 (98-107) mmol/L Carbon Dioxide 16 L (22-30) mmol/L BUN 13 (9-20) mg/dL Creatinine 0.63 L (0.66-1.25) mg/dL Glucose 213 H (74-99) mg/dL Calcium 8.5 (8.4-10.2) mg/dL AST 86 H (17-59) U/L ALT 36 (4-49) U/L Alkaline Phosphatase 73 (38-126) U/L Total Protein 6.7 (6.3-8.2) g/dL Albumin 3.9 (3.5-5.0) g/dL Current Medications Generic Name Dose Route Start Last Admin Trade Name Freq PRN Reason Stop Dose Admin Aspirin 81 mg 06/28/23 09:00 06/28/23 07:38 Aspirin 81 Mg PO 81 mg DAILY ROLA Administration Atorvastatin Calcium 80 mg 06/28/23 21:00 Atorvastatin 80 Mg Tab PO HS ROLA Folic Acid 1 mg 06/28/23 09:00 06/28/23 07:38 Folic Acid 1 Mg Tab PO 1 mg DAILY ROLA Administration Heparin Sodium (Porcine) 0 unit 06/28/23 05:59 Heparin Sodium 1,000 Un/Ml (10ml Vl) IV PER PROTOCOL PRN Low PTT Protocol Sodium Chloride 1,000 mls @ 100 mls/hr 06/28/23 03:21 06/28/23 03:31 Saline 0.9% IV 06/28/23 13:20 100 mls/hr .Q10H STA Administration Heparin Sodium/Sodium Chloride 250 mls @ 9.253 mls/hr 06/28/23 06:15 06/28/23 06:26 25,000 unit/ Sodium Chloride IV 12 units/kg/hr .Q24H ROLA 9.253 mls/hr Administration Protocol 12 UNITS/KG/HR Sodium Chloride 1,000 mls @ 75 mls/hr 06/28/23 06:00 06/28/23 06:30 Saline 0.9% IV 75 mls/hr .[id number] ROLA Administration Lorazepam 2 mg 06/28/23 05:59 06/28/23 07:41 Lorazepam 2 Mg/Ml Inj IV 06/30/23 06:08 2 mg Q10M PRN Administration CIWA 16 or higher Lorazepam 1 mg 06/28/23 05:59 Lorazepam 2 Mg/Ml Inj IV Q2HR PRN CIWA 8 or 9 Lorazepam 1 mg 06/28/23 05:59 Lorazepam 2 Mg/Ml Inj IV Q1HR PRN CIWA 10 to 15 Morphine Sulfate 4 mg 06/28/23 05:59 Morphine Sulfate 4 Mg/Ml Syringe IV Q4HR PRN Severe Pain (Scale 7 to 10) Multivitamins 1 each 06/28/23 09:00 06/28/23 07:39 Multivitamins, Thera 1 Each Tab PO 1 each DAILY ROLA Administration Naloxone HCl 0.2 mg 06/28/23 05:59 Naloxone 0.4 Mg/Ml 1 Ml Vial IV Q2M PRN Opioid Reversal Ondansetron HCl 4 mg 06/28/23 05:59 Ondansetron 4 Mg/2 Ml Vial IVP Q8HR PRN Nausea And Vomiting Thiamine HCl 100 mg 06/28/23 09:00 06/28/23 07:38 Thiamine 100 Mg Tab PO 100 mg DAILY ROLA Administration Intake and Output 06/27/23 06/28/23 06/28/23 22:59 06:59 14:59 Other: Weight 77.111 kg 06/28/23 03:30 06/28/23 03:30
--- NOTE | 2023-06-28 12:15 | CA ---
Transthoracic Echo Report Name: Jonathan Parsons Age: 57 Gender: M : 1965 Exam Date: 06/28/2023 10:26 Exam Location: [facility] Ht (in): 67 Wt (lb): 170 Ordering Physician: Darshana Valenzuela Attending/Referring Phys: [id number], Bianca Drill Press Tender Nikole Lopez RDCS Procedure CPT: Indications: LVF Cardiac Hx: Technical Quality: Very technically difficult study Contrast 1: Definity Total Dose (mL): 2 Contrast 2: Total Dose (mL): MEASUREMENTS (Male / Female) Normal Values 2D ECHO LV Diastolic Diameter PLAX 4.9 cm 4.2 - 5.9 / 3.9 - 5.3 cm LV Systolic Diameter PLAX 4.5 cm IVS Diastolic Thickness 1.2 cm 0.6 - 1.0 / 0.6 - 0.9 cm LVPW Diastolic Thickness 1.2 cm 0.6 - 1.0 / 0.6 - 0.9 cm LV Relative Wall Thickness 0.5 LA Systolic Diameter LX 4.2 cm 3.0 - 4.0 / 2.7 - 3.8 cm LV Diastolic Volume MOD BP 126.9 cm??? 67 - 155 / 56 - 104 cm??? LV Systolic Volume MOD BP 59.9 cm??? 22 - 58 / 19 - 49 cm??? LV Ejection Fraction MOD BP 52.8 % >= 55 % LV Cardiac Index MOD BP 3305.4 cm???/min???m??? LV Diastolic Volume MOD 4C 113.3 cm??? LV Systolic Volume MOD 4C 37.1 cm??? LV Ejection Fraction MOD 4C 67.2 % LV Cardiac Index MOD 4C 3758.8 cm???/min???m??? LV Diastolic Length 4C 8.8 cm LV Systolic Length 4C 7.7 cm LV Diastolic Volume MOD 2C 131.2 cm??? LV Systolic Volume MOD 2C 87.3 cm??? LV Ejection Fraction MOD 2C 33.5 % LV Cardiac Index MOD 2C 2172.2 cm???/min???m??? LV Diastolic Length 2C 9.8 cm LV Systolic Length 2C 8.7 cm LA Volume 131.0 cm??? 18 - 58 / 22 - 52 cm??? LA Volume Index 68.1 cm???/m??? 16 - 28 cm???/m??? DOPPLER AV Peak Velocity 137.9 cm/s AV Peak Gradient 7.6 mmHg MV Area PHT 4.4 cm??? Mitral E Point Velocity 106.4 cm/s Mitral A Point Velocity 111.8 cm/s Mitral E to A Ratio 1.0 MV Deceleration Time 171.6 ms MV E' Velocity 4.1 cm/s Mitral E to MV E' Ratio 26.0 FINDINGS Left Ventricle Left ventricular ejection fraction is estimated at 30-35%. Left ventricular cavity size normal. Left ventricular wall thickness normal. Mildly increased septal wall thickness. Mildly increased left ventricular systolic volume. Moderatly decreased left ventricular ejection fraction. Right Ventricle Right ventricle not well visualized. Unable to estimate the right ventricular systolic pressure. Right Atrium Right atrium not well visualized. Left Atrium Mildly increased left atrial diameter. Severely increased left atrial volume. Moderately increased left atrial area. Mitral Valve Structurally normal mitral valve. No mitral stenosis, regurgitation or prolapse. Aortic Valve Aortic valve not well visualized. No aortic valve stenosis or regurgitation. Tricuspid Valve Tricuspid valve not well visualized. Pulmonic Valve Pulmonic valve not well visualized. Pericardium No pericardial effusion. Aorta Aortic root and proximal ascending aorta not well visualized. CONCLUSIONS Impaired LV function with EF between 30-35% Overall technically difficult study Previewed by: Dr. Balta Bird MD (Electronically Signed) Final Date: 28 June 2023 12:14
[2023-06-28] MEDS ORDERED: ATORVASTATIN 80 MG TAB PO SCH ×2 (21:00)
[2023-06-29] MEDS: LORazepam 2 MG/ML INJ IV PRN ×2 (02:47→08:08)
[2023-06-29 04:51] LABS: Anisocytosis Slight; Basophils % (A) 1 %; Eosinophils # (A) 0.2 k/uL (0-0.7); Eosinophils % (A) 3 %; HCT 32.9 % (39.0-53.0); HGB 10.3 gm/dL (13.0-17.5); Hypochromasia Moderate; Lymphocytes # (A) 2.1 k/uL (1.0-4.8); Lymphocytes % (A) 30 %; MCH 26.8 pg (25.0-35.0); MCHC 31.3 g/dL (31.0-37.0); MCV 85.6 fL (80.0-100.0); Mean Platelet Volume 7.5; Monocytes # (A) 0.3 k/uL (0-1.0); Monocytes % (A) 4 %; Neutrophils # (A) 4.1 k/uL (1.3-7.7); Neutrophils % (A) 60 %; Platelet Count 249 k/uL (150-450); RBC 3.85 m/uL (4.30-5.90); RDW 17.9 % (11.5-15.5); WBC 6.8 k/uL (3.8-10.6)
[2023-06-29] MEDS ORDERED: ATORVASTATIN 80 MG TAB PO ONE (05:00)
[2023-06-29] MEDS ORDERED: ASPIRIN 325 MG TAB PO ONE (05:00)
[2023-06-29 05:02] LABS: African American GFR (CKD) >90 (>60 ml/min/1.73 sqM); Carbon Dioxide 24 mmol/L (22-30); Glucose 109 mg/dL (74-99); Non-African American GFR(CKD) >90 (>60 ml/min/1.73 sqM); Phosphorus 3.3 mg/dL (2.5-4.5); Potassium 3.6 mmol/L (3.5-5.1); Sodium 136 mmol/L (137-145); Total Protein 6.2 g/dL (6.3-8.2)
[2023-06-29 05:04] LABS: ALT 34 U/L (4-49); AST 66 U/L (17-59); Alkaline Phosphatase 84 U/L (38-126); Blood Urea Nitrogen 10 mg/dL (9-20); Calcium 8.3 mg/dL (8.4-10.2); Magnesium 1.6 mg/dL (1.6-2.3); Total Bilirubin 1.7 mg/dL (0.2-1.3)
[2023-06-29 05:16] LABS: Albumin 3.4 g/dL (3.5-5.0); Anion Gap 9 mmol/L; Chloride 103 mmol/L (98-107)
[2023-06-29] MEDS ORDERED: HEPARIN SODIUM,PORCINE 10,000 UNIT in SODIUM CHLORIDE 0.9% 1,000 ML IRRIGATION PRN (07:00)
[2023-06-29] MEDS ORDERED: HEPARIN SODIUM,PORCINE (1 ML) 2,500 UNIT in SODIUM CHLORIDE 0.9% 250 ML IRRIGATION PRN (07:00)
[2023-06-29] MEDS: SODIUM CHLORIDE 0.9% 1,000 ML IV SCH ×2 (07:28→10:12)
[2023-06-29] MEDS ORDERED: PANTOPRAZOLE 40 MG TABLET PO SCH (07:30)
[2023-06-29] MEDS: HEPARIN SOD,PORK IN 0.45% NACL 25,000 UNIT in 0.45% NACL 1 250ML.BAG IV SCH (07:55)
[2023-06-29] MEDS: THIAMINE 100 MG TAB PO SCH (07:56)
[2023-06-29] MEDS: METOPROLOL TARTRATE 25 MG TAB PO SCH (07:56)
[2023-06-29] MEDS: FOLIC ACID 1 MG TAB PO SCH (07:56)
[2023-06-29] MEDS: AMIODARONE 200 MG TAB PO SCH (07:56)
[2023-06-29] MEDS: MULTIVITAMINS, THERA 1 EACH TAB PO SCH (07:56)
[2023-06-29] MEDS ORDERED: NON FORMULARY DRUG (Multivit With Calcium,Iron,Min [Women's Multivitamin] 1 EACH Tablet) PO SCH (09:00)
[2023-06-29] MEDS ORDERED: DULoxetine HCL 60 MG CAPSULE.DR PO SCH ×2 (09:00)
[2023-06-29] MEDS ORDERED: ASPIRIN 325 MG TAB PO STA (10:13)
[2023-06-29] MEDS: ASPIRIN 81 MG PO SCH (10:13)
[2023-06-29] MEDS ORDERED: diphenhydrAMINE 50 MG/ML 1 ML VIAL IVP STA (10:14)
[2023-06-29] MEDS ORDERED: methylPREDNISolone SOD SUCCI 125 MG/2 ML VIAL IV STA (10:14)
[2023-06-29] MEDS ORDERED: FAMOTIDINE 20 MG TAB PO STA (10:15)
[2023-06-29] MEDS ORDERED: fentaNYL (PF) 50 MCG/ML 2 ML AMP ONE (11:00)
[2023-06-29] MEDS ORDERED: fentaNYL (PF) 50 MCG/ML 2 ML AMP IVP ONE (11:34)
[2023-06-29] MEDS ORDERED: HEPARIN SODIUM 1,000 UN/ML (10ML VL) ONE (11:35)
[2023-06-29] MEDS ORDERED: LIDOCAINE 1% INJ 10MG/ML (20 ML MDV) SQ ONE (11:36)
[2023-06-29] MEDS ORDERED: VERAPAMIL SYRINGE (5 MG/10 ML) INTRAARTER ONE (11:37)
[2023-06-29] MEDS ORDERED: IV FLUID CONTINUATION 600 ML IV ONE (11:37)
[2023-06-29] MEDS ORDERED: HEPARIN SODIUM 1,000 UN/ML (10ML VL) IVP ONE (11:46)
[2023-06-29] MEDS ORDERED: IOPAMIDOL-370 100ML BTL INJ ONE (12:01)
[2023-06-29] MEDS ORDERED: RX INFO: IV CONTRAST WAS GIVEN 1 EACH MISC MISCELLANE PRN (12:17)
[2023-06-29] MEDS ORDERED: HEPARIN SODIUM 1,000 UN/ML (10ML VL) IV PRN (12:20)
--- NOTE | 2023-06-29 12:27 | P.CARDCATH ---
Date of Procedure: 06/29/23 Description of Procedure: Cardiac Catheterization: The patient is a 57-year-old male with a known history of severe CAD, status post stenting of the LAD in the setting of a myocardial infarction in 2020, chronically occluded RCA, paroxysmal atrial fibrillation, ischemic cardiomyopathy and history of alcohol intake who presented with non-STEMI . Recommendations were made regarding cardiac catheterization, the risks and the complications were discussed with the patient who is in full understanding and agreement. Procedure Description: Patient was brought to general production laborer in fasting semi-sedated state after receiving Fentanyl and Benadryl achieiving moderate conscious sedated state. Using Xylocaine Anesthesia and modified Seldinger technique, a 6-Panamanian sheath was introduced in the left radial artery . Subsequently, selective coronary angiography was performed using a 5-Panamanian 4 bend Brooke catheter. Multiple views of the coronary artery including hemiaxial views were obtained. The pigtail catheter was used to cross the aortic valve and LVEDP was calculated. Following that, catheter and sheath were removed. Hemostasis was obtained with deployment of vascular band . There was no immediate complication. Patient was returned to room in stable condition. Of note, the patient received a total of 4000 units of intravenous heparin as well as intra-arterial verapamil. Findings: Fluoroscopy: Severe calcifications of all the coronary arteries was noted Left main: This is a large size vessel, calcified, bifurcating into LAD and left circumflex, left main has no significant obstructive disease LAD: This is a large size vessel, heavily calcified. The proximal mid LAD stented and the stent is patent. After the takeoff of 2 diagonal branch the LAD is chronically occluded with minimal distal flow to the apex. Left circumflex: This is a large nondominant vessel giving rise to a large obtuse marginal branch the proximal left circumflex is totally occluded with slow flow distally into the OM. The vessel is calcified. RCA: This vessel is totally occluded proximally with minimal flow to the distal segment. There is evidence of collaterals from the left coronary system toward the right PDA and PLV. Left Ventriculogram: Not performed Hemodynamics: There was no gradient across the aortic valve , LVEDP was 20-25 mmHg Conclusion: 1. Severe calcifications of the coronary arteries 2. Patent stent in the proximal mid LAD with chronic total occlusion distally 3. Chronic total occlusion of the proximal RCA with [id number] collaterals 4. Total occlusion of the proximal left circumflex with slow flow distally 5. Elevated LVEDP Recommendations: Compared to the images obtained in 2020 the left circumflex occlusion is new. This is a high risk intervention. I have discussed this case with Dr Self at [facility] who will accept the transfer to undergo high-risk int ervention. The findings and the recommendations were discussed with the patient he is in full understanding and agreement. Duration of sedation is 25 minutes.
[2023-06-29] MEDS ORDERED: SODIUM CHLORIDE 0.9% 1,000 ML IV SCH (12:30)
[2023-06-29 12:39] VITALS: RESP 18
[2023-06-29 12:51] LABS: Anisocytosis Slight; Basophils % (A) 1 %; Eosinophils # (A) 0.1 k/uL (0-0.7); Eosinophils % (A) 3 %; HCT 33.6 % (39.0-53.0); HGB 10.7 gm/dL (13.0-17.5); Hypochromasia Marked; Lymphocytes # (A) 0.7 k/uL (1.0-4.8); Lymphocytes % (A) 16 %; MCH 27.5 pg (25.0-35.0); MCHC 31.8 g/dL (31.0-37.0); MCV 86.5 fL (80.0-100.0); Mean Platelet Volume 7.5; Monocytes # (A) 0.1 k/uL (0-1.0); Monocytes % (A) 3 %; Neutrophils # (A) 3.3 k/uL (1.3-7.7); Neutrophils % (A) 77 %; Platelet Count 213 k/uL (150-450); RBC 3.88 m/uL (4.30-5.90); RDW 17.9 % (11.5-15.5); WBC 4.4 k/uL (3.8-10.6)
[2023-06-29 13:14] LABS: Partial Thromboplastin Time 84.8 sec (22.0-30.0); Prothrombin Time 10.9 sec (10.0-12.5)
[2023-06-29 13:16] LABS: African American GFR (CKD) >90 (>60 ml/min/1.73 sqM); Anion Gap 10 mmol/L; Blood Urea Nitrogen 9 mg/dL (9-20); Calcium 8.4 mg/dL (8.4-10.2); Carbon Dioxide 22 mmol/L (22-30); Chloride 104 mmol/L (98-107); Glucose 127 mg/dL (74-99); Non-African American GFR(CKD) >90 (>60 ml/min/1.73 sqM); Potassium 4.1 mmol/L (3.5-5.1); Sodium 136 mmol/L (137-145)
[2023-06-29] MEDS ORDERED: HEPARIN SOD,PORK IN 0.45% NACL 25,000 UNIT in 0.45% NACL 1 250ML.BAG IV SCH (15:30)
[2023-06-29 16:13] VITALS: BP 115/77; PULSE 83; TEMP 98.3
--- NOTE | 2023-06-29 16:33 | P.DS ---
Providers Date of admission: 06/28/23 05:59 Expected date of discharge: 06/29/23 Attending physician: Bob Peters MD Consults: 06/28/23 05:59 Consult Physician Routine Consulting Provider: Artis Dunlap Consult Reason/Comments: nstemi Do you want consulting provider notified?: Yes Primary care physician: [facility] Course: Non-ST elevation myocardial infarction CAD Chronic systolic heart failure, ejection fraction 30-35% Severe pulmonary hypertension, class II Chronic right heart failure Alcohol use disorder with dependence, severe Alcohol withdrawal syndrome Nicotine Use Paroxysmal atrial fibrillation Hypertension Hyperlipidemia Hospital Course: 57 -year-old man with medical history of CAD status post PCI in 2020, alcohol use disorder, proximal atrial fibrillation, active smoker, recent incarceration, hypertension, hyperlipidemia presented for chest pain. In the emergency room, patient was afebrile, 105/66, heart rate 99, 97% on room air. CBC remarkable for anemia, 10.7. Basic metabolic panel remarkable for anion gap 21, CO2 of 16. Liver function tests remarkable for AST of 86, ALT of 39. Lipase was 64. Troponin is 1.58. Alcohol level is 195. Coags are unremarkable. EKG demonstrates normal sinus rhythm with normal axis, no ST-T changes concerning for ischemia. Chest x-ray demonstrates cardiomegaly with mildly increased pulmonary vascularity and interstitial markings, left diaphragmatic hernia. Pt was taken to paint laboratory technician today and was found to have TEAM PHYSICIAN of RCA, patent LAD stent with TEAM PHYSICIAN of distal LAD, and acute occlusion of LCx - our interventionalist discussed the case with [facility], and patient was accepted for transfer to their facility for further management. I spent 50 minutes coordinating this discharge on 06/29 Gen: in no apparent distress, resting comfortably in bed Eyes: PERRL, no scleral injection or icterus HENT: normocephalic, atraumatic, good hearing acuity, moist mucous membranes Neck: no tracheal deviation, full range of motion Resp: good air exchange, breathing comfortably with no accessory muscle use, no tactile fremitus CVS: good distal perfusion x 4, no pitting edema GI: soft, NTTP, ND, no hepatosplenomegaly : no suprapubic tenderness, no CVAT, guillermo catheter not present MSK: no clubbing, no cyanosis, no noted contractures of extremities Skin: no noted rashes, petechiae; temperature of skin is appropriate Neuro: moving all extremities without signs of weakness, CN II-XII intact Psych: cooperative, euthymic mood, insight and judgment intact Patient Condition at Discharge: Serious Plan - Discharge Summary Discharge Rx Participant: No New Discharge Prescriptions: No Action Atorvastatin [Lipitor] 80 mg PO HS Aspirin 81 mg PO DAILY tab Omeprazole [PriLOSEC] 20 mg PO DAILY Metoprolol Tartrate [Lopressor] 25 mg PO BID #60 tab Multivit with Calcium,Iron,Min [Women's Daily Formula] 1 tab PO DAILY DULoxetine HCL [Cymbalta] 60 mg PO DAILY Amiodarone [Cordarone] 200 mg PO DAILY Discharge Medication List Atorvastatin [Lipitor] 80 mg PO HS 03/30/21 [History] Aspirin 81 mg PO DAILY tab 11/17/22 [Rx] Omeprazole [PriLOSEC] 20 mg PO DAILY 12/06/22 [History] Metoprolol Tartrate [Lopressor] 25 mg PO BID #60 tab 12/08/22 [Rx] Amiodarone [Cordarone] 200 mg PO DAILY 06/28/23 [History] DULoxetine HCL [Cymbalta] 60 mg PO DAILY 06/28/23 [History] Multivit with Calcium,Iron,Min [Women's Daily Formula] 1 tab PO DAILY 06/28/23 [History] Follow up Appointment(s)/Referral(s): [facility] [Primary Care Provider] - 1-2 days
[2023-06-29] MEDS ORDERED: lisinopriL 5 MG TAB PO SCH (21:00)
[2023-06-30] MEDS ORDERED: SPIRONOLACTONE 25 MG TAB PO SCH (09:00)
== END 2023-06-29 16:46 | disposition short-term general hospital (02) | DRG 281 ==
LOC: EC 03:19 → 3SCARD 05:59
PROVIDERS: ADMIT Internal Medicine; ATTEND Internal Medicine
PROC: B2161ZZ Fluoroscopy of Right and Left Heart using Low Osmolar Contrast (ICD-10-PCS; 2023-06-29)
PROC: 4A023N7 Measurement of Cardiac Sampling and Pressure, Left Heart, Percutaneous Approach (ICD-10-PCS; principal; 2023-06-29 07:30)
DX: I21.4 Non-ST elevation (NSTEMI) myocardial infarction (principal); F10.239 Alcohol dependence with withdrawal, unspecified; I50.22 Chronic systolic (congestive) heart failure; I11.0 Hypertensive heart disease with heart failure; I48.0 Paroxysmal atrial fibrillation; I25.110 Atherosclerotic heart disease of native coronary artery with unstable angina pectoris; D64.9 Anemia, unspecified; E78.5 Hyperlipidemia, unspecified; F10.229 Alcohol dependence with intoxication, unspecified; F17.210 Nicotine dependence, cigarettes, uncomplicated; F43.10 Post-traumatic stress disorder, unspecified; I08.1 Rheumatic disorders of both mitral and tricuspid valves; I25.2 Old myocardial infarction; I27.29 Other secondary pulmonary hypertension; I50.82 Biventricular heart failure; J44.9 Chronic obstructive pulmonary disease, unspecified; K44.9 Diaphragmatic hernia without obstruction or gangrene; M41.9 Scoliosis, unspecified; Y90.6 Blood alcohol level of 120-199 mg/100 ml; Z79.82 Long term (current) use of aspirin; Z79.899 Other long term (current) drug therapy; Z82.49 Family history of ischemic heart disease and other diseases of the circulatory system; Z87.442 Personal history of urinary calculi; Z91.199 Patient's noncompliance with other medical treatment and regimen due to unspecified reason; Z95.5 Presence of coronary angioplasty implant and graft; Z98.84 Bariatric surgery status; Z87.19 Personal history of other diseases of the digestive system; F31.9 Bipolar disorder, unspecified
CPT/HCPCS: 36415; 71045; 80048; 80053; 80320; 83690; 83735; 83880; 84100; 84484; 85025; 85610; 85730; 93005; 93306; 93458; 96365; 96366; 96375; 99291

== ENCOUNTER 2023-08-18 13:59 | Emergency (ER) | payer MEDICARE ==
--- NOTE | 2023-08-18 17:32 | ED ---
General Adult HPI - General Chief complaint: Psychiatric Symptoms Stated complaint: mental health/petition Time Seen by Provider: 08/18/23 16:06 Source: patient, RN notes reviewed Mode of arrival: ambulatory Limitations: no limitations - History of Present Illness Initial comments: 57-year-old male presents to the emergency department on petition from his therapist. Patient reports that he has been feeling well physically and mentally. He denies any symptoms currently including suicidal ideation, homicidal ideation. He does report a history of bipolar disorder and is currently on medications for this. He does follow with [facility]. - Related Data Home Medications Medication Instructions Recorded Confirmed Atorvastatin [Lipitor] 80 mg PO HS 03/30/21 06/28/23 Omeprazole [PriLOSEC] 20 mg PO DAILY 12/06/22 06/28/23 Amiodarone [Cordarone] 200 mg PO DAILY 06/28/23 06/28/23 DULoxetine HCL [Cymbalta] 60 mg PO DAILY 06/28/23 06/28/23 Multivit with Calcium,Iron,Min 1 tab PO DAILY 06/28/23 06/28/23 [Women's Daily Formula] Previous Rx's Medication Instructions Recorded Aspirin 81 mg PO DAILY tab 11/17/22 Metoprolol Tartrate [Lopressor] 25 mg PO BID #60 tab 12/08/22 Allergies Allergy/AdvReac Type Severity Reaction Status Date / Time Iodinated Contrast Media Allergy Itching-see Verified 06/28/23 08:09 comment Review of Systems ROS Statement: Those systems with pertinent positive or pertinent negative responses have been documented in the HPI. ROS Other: All systems not noted in ROS Statement are negative. Past Medical History Past Medical History: COPD, GERD/Reflux, GI Bleed, Hypertension, Myocardial Infarction (NH), Pneumonia, Skin Disorder Additional Past Medical History / Comment(s): ETOH abuse with delirium tremors, lower GI bleed, IBS, chronic iron deficiency anemia, hypomagnesemia, hyperbilirubinemia, anorexia, vertigo, nephrolithiasis-passed stone on his own, chronic low back/cervical pain, DDD, kyphosis, scoliosis, coccyx pressure ulcer pt states is mostly healed. Dry and itchy skin back in high school. 2 heart attacks, one in December (2020) second in February (2020). Last Myocardial Infarction Date:: February 2021 History of Any Multi-Drug Resistant Organisms: None Reported Past Surgical History: Bariatric Surgery, Heart Catheterization With Stent, Hernia Repair, Orthopedic Surgery, Tonsillectomy Additional Past Surgical History / Comment(s): Right inner Forearm-metal plate, gastric bypass, incisional hernia surgery x2, EGDs, colonoscopies. 2 Stents placed in December 2020; bilateral knee surgeries Past Anesthesia/Blood Transfusion Reactions: No Reported Reaction Date of Last Stent Placement:: 2020 Past Psychological History: Anxiety, Bipolar, Depression, PTSD Smoking Status: Current every day smoker Past Alcohol Use History: Abuse, Daily Past Drug Use History: None Reported - Past Family History Mother History Unknown: Yes Family Medical History: Hypertension Additional Family Medical History / Comment(s): Lupus. Mother is living. Father History Unknown: Yes Family Medical History: Liver Disease Additional Family Medical History / Comment(s): ETOH abuse. of cirrhosis complications. General Exam Limitations: no limitations General appearance: alert, in no apparent distress Head exam: Present: atraumatic, normocephalic, normal inspection Eye exam: Present: normal appearance, PERRL, EOMI. Absent: scleral icterus, conjunctival injection, periorbital swelling ENT exam: Present: normal exam, mucous membranes moist Course Vital Signs 08/18/23 08/18/23 14:14 19:49 Temperature 99.2 F 98.1 F Pulse Rate 95 87 Respiratory 16 18 Rate Blood Pressure 124/85 134/78 O2 Sat by Pulse 96 98 Oximetry Medical Decision Making - Medical Decision Making Was pt. sent in by a medical professional or institution (, PA, HARPOONER, urgent care, hospital, or fci...) When possible be specific @ -Sent in by his therapist Did you speak to anyone other than the patient for history (EMS, parent, family, police, friend...)? What history was obtained from this source @ -No Did you review nursing and triage notes (agree or disagree)? Why? @ -I reviewed and agree with nursing and triage notes Were old charts reviewed (outside hosp., previous admission, EMS record, old EKG, old radiological studies, urgent care reports/EKG's, fci records)? Report findings @ -No old charts were reviewed Differential Diagnosis (chest pain, altered mental status, abdominal pain women, abdominal pain men, vaginal bleeding, weakness, fever, dyspnea, syncope, headache, dizziness, GI bleed, back pain, seizure, CVA, palpatations, mental health, musculoskeletal)? @ -Differential Mental Health Depression, anxiety, bipolar, psychosis, schizophrenia, borderline personality, situational depression, adjustment disorder, behavioral disorder, brain tumor, malingering, substance abuse, encephalopathy, medication reaction, dementia, hypothyroidism, degenerative neurologic disorder, lupus.... This is not meant to be all-inclusive list EKG interpreted by me (3pts min.). @ -None X-rays interpreted by me (1pt min.). @ -None done CT interpreted by me (1pt min.). @ -None done U/S interpreted by me (1pt. min.). @ -None done What testing was considered but not performed or refused? (CT, X-rays, U/S, labs)? Why? @ -None What meds were considered but not given or refused? Why? @ -None Did you discuss the management of the patient with other professionals (professionals i.e. , PA, HARPOONER, lab, RT, psych nurse, forensic social worker, ophthalmic technologist, teacher, transportation security officer, lining caser)? Give summary @ -Management close with emergency psychiatric services who discussed the case with psychiatrist. Patient is stable for discharge with the care plan which was provided to the patient. Was smoking cessation discussed for >3mins.? @ -No Was critical care preformed (if so, how long)? @ -No Were there social determinants of health that impacted care today? How? (Homelessness, low income, unemployed, alcoholism, drug addiction, transportation, low edu. Level, literacy, decrease access to med. care, prison, rehab)? @ -No Was there de-escalation of care discussed even if they declined (Discuss DNR or withdrawal of care, Hospice)? DNR status @ -No What co-morbidities impacted this encounter? (DM, HTN, Smoking, COPD, CAD, Cancer, CVA, ARF, Chemo, Hep., AIDS, mental health diagnosis, sleep apnea, morbid obesity)? @ -None Was patient admitted / discharged? Hospital course, mention meds given and route, prescriptions, significant lab abnormalities, going to OR and other pertinent info. @ -Patient presented to the emergency department for evaluation of mental health issues. He was sent in by his therapist for evaluation. He denies any symptoms at this time to me. His charts from [facility] were reviewed. Patient has been acting violent, hyperverbal at [facility]. Patient denies any physical or mental complaints at this time. Denies suicidal or homicidal ideation. Patient was evaluated by emergency psychiatric services and discussed the case with the psychiatrist. Patient is stable for discharge. Patient was provided a care plan and the patient is agreeable to follow it. Patient will follow-up closely with [facility] providers. Patient understanding agreeable discharge plan. Patient stable at time of discharge. Case discussed with Dr. Polanco. Undiagnosed new problem with uncertain prognosis? @ -No Drug Therapy requiring intensive monitoring for toxicity (Heparin, Nitro, Insulin, Cardizem)? @ -No Were any procedures done? @ -No Diagnosis/symptom? @ -Bipolar disorder Acute, or Chronic, or Acute on Chronic? @ -Chronic Uncomplicated (without systemic symptoms) or Complicated (systemic symptoms)? @ -Uncomplicated Side effects of treatment? @ -No Exacerbation, Progression, or Severe Exacerbation? @ -No Poses a threat to life or bodily function? How? (Chest pain, [place], NH, pneumonia, PE, COPD, DKA, ARF, appy, cholecystitis, CVA, Diverticulitis, Homicidal, Suicidal, threat to staff... and all critical care pts) @ -No Disposition Clinical Impression: Bipolar disorder Disposition: HOME SELF-CARE Condition: Stable Additional Instructions: Please follow your care plan and follow-up with [facility]. Return to the emergency department for new or worsening symptoms. Is patient prescribed a controlled substance at d/c from ED?: No Referrals: None,Stated [Primary Care Provider] - 1-2 days
[2023-08-18 19:54] VITALS: BP 134/78; PULSE 87; RESP 18; TEMP 98.1
== END 2023-08-18 20:28 | disposition home or self-care (01) ==
LOC: EC 13:59
DX: F31.9 Bipolar disorder, unspecified (principal); J44.9 Chronic obstructive pulmonary disease, unspecified; K21.9 Gastro-esophageal reflux disease without esophagitis; I25.2 Old myocardial infarction; I10 Essential (primary) hypertension; F41.9 Anxiety disorder, unspecified; F17.200 Nicotine dependence, unspecified, uncomplicated; Z79.899 Other long term (current) drug therapy; Z91.041 Radiographic dye allergy status
CPT/HCPCS: 82075; 99284

== ENCOUNTER 2023-10-04 12:20 | Observation (INO) | payer MEDICARE, OTHER ==
[2023-10-04] MEDS: NITROGLYCERIN OINT 1 INCH/GM PACKET TOPICAL STA (12:52)
--- NOTE | 2023-10-04 13:00 | ED ---
Chest Pain HPI - General Chief Complaint: Chest Pain Stated Complaint: SOB Time Seen by Provider: 10/04/23 12:30 Source: patient, EMS Mode of arrival: EMS Limitations: no limitations - History of Present Illness Initial Comments: This 57-year-old male presents with complaint of chest pain. He states that it is in his left chest and is a pressure type sensation. He is some mild radiation down his left arm. He does complain of shortness of breath. He had some nausea and also vomited. This came on while at rest approximately 2 hours prior to arrival. He does relate a significant cardiac history with previous angioplasties and 2 stent placements. His last stent was in June 2023. He was seen at our hospital and apparently had a heart catheterization with occlusion but our simplex operator had difficult time placing stent and apparently sent him to [facility] and they placed a stent at that time. He denies any leg pain or swelling. He does present via EMS and received aspirin 324 mg per EMS. He does have a history of alcohol abuse. He states that he drank last night and had a couple beers this morning. He denies going through severe withdrawals. He states that he has not been drinking heavily recently. No other complaints or modifying factors. - Related Data Home Medications Medication Instructions Recorded Confirmed Atorvastatin [Lipitor] 80 mg PO HS 03/30/21 10/04/23 Omeprazole [PriLOSEC] 20 mg PO DAILY 12/06/22 10/04/23 Amiodarone [Cordarone] 200 mg PO DAILY 06/28/23 10/04/23 DULoxetine HCL [Cymbalta] 60 mg PO DAILY 06/28/23 10/04/23 Multivit with Calcium,Iron,Min 1 tab PO DAILY 06/28/23 10/04/23 [Women's Daily Formula] Apixaban [Eliquis] 5 mg PO BID 10/04/23 10/04/23 Ticagrelor [Brilinta] 90 mg PO BID 10/04/23 10/04/23 Previous Rx's Medication Instructions Recorded Aspirin 81 mg PO DAILY tab 11/17/22 Metoprolol Tartrate [Lopressor] 25 mg PO BID #60 tab 12/08/22 Allergies Allergy/AdvReac Type Severity Reaction Status Date / Time Iodinated Contrast Media Allergy Itching-see Verified 10/04/23 12:36 comment Review of Systems ROS Statement: Those systems with pertinent positive or pertinent negative responses have been documented in the HPI. ROS Other: All systems not noted in ROS Statement are negative. Past Medical History Past Medical History: COPD, GERD/Reflux, GI Bleed, Hypertension, Myocardial Infarction ([place]), Pneumonia, Skin Disorder Additional Past Medical History / Comment(s): ETOH abuse with delirium tremors, lower GI bleed, IBS, chronic iron deficiency anemia, hypomagnesemia, hyperbilirubinemia, anorexia, vertigo, nephrolithiasis-passed stone on his own, chronic low back/cervical pain, DDD, kyphosis, scoliosis, coccyx pressure ulcer pt states is mostly healed. Dry and itchy skin back in high school. 2 heart attacks, one in December (2020) second in February (2020). Last Myocardial Infarction Date:: February 2021 History of Any Multi-Drug Resistant Organisms: None Reported Past Surgical History: Bariatric Surgery, Heart Catheterization With Stent, Hernia Repair, Orthopedic Surgery, Tonsillectomy Additional Past Surgical History / Comment(s): Right inner Forearm-metal plate, gastric bypass, incisional hernia surgery x2, EGDs, colonoscopies. 2 Stents placed in December 2020; bilateral knee surgeries Past Anesthesia/Blood Transfusion Reactions: No Reported Reaction Date of Last Stent Placement:: 2020 Past Psychological History: Anxiety, Bipolar, Depression, PTSD Smoking Status: Current every day smoker Past Alcohol Use History: Abuse, Daily Past Drug Use History: None Reported - Past Family History Mother History Unknown: Yes Family Medical History: Hypertension Additional Family Medical History / Comment(s): Lupus. Mother is living. Father History Unknown: Yes Family Medical History: Liver Disease Additional Family Medical History / Comment(s): ETOH abuse. of cirrhosis complications. General Exam - General Exam Comments Initial Comments: GENERAL: The patient is well nourished and well hydrated. VITAL SIGNS: Heart rate, blood pressure, respiratory rate reviewed as recorded in nurse's notes. EYES: Pupils are round and reactive. Extraocular movements are intact. No conjunctival / lid redness or swelling. ENT: No external evidence of injury, swelling, or ecchymosis. Airway is patent. Throat is clear. NECK: Nontender. No swelling or evidence of injury. No subcutaneous emphysema. Trachea is midline. No thyroid mass. HEART: Regular rate and rhythm. Good peripheral pulses. LUNGS/CHEST: Breath sounds clear and equal bilaterally. No rales, rhonchi, or wheezes. No ecchymosis, subcutaneous emphysema, or tenderness. ABDOMEN: Abdomen soft without tenderness. No palpable masses or organomegaly. No peritoneal signs. No abdominal wall swelling or ecchymosis. EXTREMITIES: No extremity tenderness. Normal muscle tone and function. No thoracolumbar tenderness. NEUROLOGIC: Sensation is grossly intact. Cranial nerve exam reveals face is symmetrical, tongue is midline, speech is clear. SKIN: No abrasions or ecchymosis is noted. No induration or masses noted. PSYCHIATRIC: Alert and oriented. Appropriate behavior and judgment. Limitations: no limitations Course Vital Signs 10/04/23 10/04/23 10/04/23 12:34 13:00 14:00 Temperature 97.6 F Pulse Rate 72 72 Respiratory 16 16 Rate Blood Pressure 89/60 65/38 75/40 O2 Sat by Pulse 97 100 Oximetry 10/04/23 10/04/23 15:00 15:23 Temperature Pulse Rate 73 74 Respiratory 12 18 Rate Blood Pressure 78/41 91/63 O2 Sat by Pulse 100 100 Oximetry Chest Pain [facility] The patient was seen and examined. All diagnostics are reviewed. The patient was placed on a director of cardiac rehabilitation and no ectopy is identified. The EKG shows a normal sinus rhythm at a rate of 79. There is no acute ST or T wave changes noted per my interpretation. The intervals are normal with slight increase in QRS duration at 126. Patient does receive some Nitropaste to anterior chest wall. Old records are reviewed and this does show significant cardiac history with previous myocardial infarction's, congestive heart failure, cardiomyopathy, atrial fibrillation, and ejection fraction of 30 to 35%. He also received Zofran intravenously for his nausea. Chest x-ray came back showing evidence of congestive heart failure per my interpretation and radiologist interpretation. Lasix is ordered intravenously. Patient is feeling somewhat improved on recheck. It is felt as though he would benefit from admission to the hospital for further treatment. Patient is agreeable. Case is discussed with internal medicine and they are agreeable with admission. Cardiology will be consulted. Was pt. sent in by a medical professional or institution (, PA, ADVERTISER, urgent care, hospital, or jail...) When possible be specific @ -No Did you speak to anyone other than the patient for history (EMS, parent, family, police, friend...)? What history was obtained from this source @ -No Did you review nursing and triage notes (agree or disagree)? Why? @ -I reviewed and agree with nursing and triage notes Were old charts reviewed (outside hosp., previous admission, EMS record, old EKG, old radiological studies, urgent care reports/EKG's, jail records)? Report findings @ -Old records were reviewed and it appears as though he had heart catheterization at our facility in June 2023 and was sent to [facility] for definitive treatment. Differential Diagnosis (chest pain, altered mental status, abdominal pain women, abdominal pain men, vaginal bleeding, weakness, fever, dyspnea, syncope, headache, dizziness, GI bleed, back pain, seizure, CVA, palpatations, mental health, musculoskeletal)? @ -Chest pain, congestive heart failure, dyspnea, acute coronary syndrome, dehydration. EKG interpreted by me (3pts min.). @ -As above X-rays interpreted by me (1pt min.). @ -As above CT interpreted by me (1pt min.). @ -None done U/S interpreted by me (1pt. min.). @ -None done What testing was considered but not performed or refused? (CT, X-rays, U/S, l abs)? Why? @ -None What meds were considered but not given or refused? Why? @ -None Did you discuss the management of the patient with other professionals (professionals i.e. , PA, ADVERTISER, lab, RT, psych nurse, aids social worker, acid purification equipment operator, teacher, chief creative officer, caser shoe parts)? Give summary @ -Case was discussed with internal medicine who is agreeable with admission. Was smoking cessation discussed for >3mins.? @ -No Was critical care preformed (if so, how long)? @ -No Were there social determinants of health that impacted care today? How? (Homelessness, low income, unemployed, alcoholism, drug addiction, transportation, low edu. Level, literacy, decrease access to med. care, chcf, rehab)? @ -No Was there de-escalation of care discussed even if they declined (Discuss DNR or withdrawal of care, Hospice)? DNR status @ -No What co-morbidities impacted this encounter? (DM, HTN, Smoking, COPD, CAD, Cancer, CVA, ARF, Chemo, Hep., AIDS, mental health diagnosis, sleep apnea, morbid obesity)? @ -Coronary artery disease, pulmonary hypertension, congestive heart failure. Was patient admitted / discharged? Hospital course, mention meds given and route, prescriptions, significant lab abnormalities, going to OR and other pertinent info. @ -Patient was admitted, please see above. Undiagnosed new problem with uncertain prognosis? @ -No Drug Therapy requiring intensive monitoring for toxicity (Heparin, Nitro, Insulin, Cardizem)? @ -No Were any procedures done? @ -No Diagnosis/symptom? @ -Chest pain, acute coronary syndrome, dyspnea, congestive heart failure. Acute, or Chronic, or Acute on Chronic? @ -Acute Uncomplicated (without systemic symptoms) or Complicated (systemic symptoms)? @ -Uncomplicated Side effects of treatment? @ -No Exacerbation, Progression, or Severe Exacerbation? @ -No Poses a threat to life or bodily function? How? (Chest pain, [place], [place], pneumonia, PE, COPD, DKA, ARF, appy, cholecystitis, CVA, Diverticulitis, Homicidal, Suicidal, threat to staff... and all critical care pts) @ -Yes, congestive heart failure and acute coronary syndrome can be potentially life-threatening. Disposition Clinical Impression: Chest pain, Nausea and vomiting, Anemia, Dehydration, Alcohol abuse, Hypoglycemia, Dyspnea, CHF (congestive heart failure) Disposition: ADMITTED IP TO THIS HOSP Condition: Fair Is patient prescribed a controlled substance at d/c from ED?: No Time of Disposition: 15:28 Decision Date: 10/04/23 Decision Time: 15:28
[2023-10-04] MEDS: ONDANSETRON 4 MG/2 ML VIAL IVP STA (13:12)
[2023-10-04 13:22] LABS: Anisocytosis Slight; Basophils # (A) 0.1 k/uL (0-0.2); Basophils % (A) 1 %; Eosinophils # (A) 0.1 k/uL (0-0.7); Eosinophils % (A) 1 %; HCT 30.5 % (39.0-53.0); Hypochromasia Marked; Lymphocytes # (A) 0.7 k/uL (1.0-4.8); Lymphocytes % (A) 12 %; MCH 25.6 pg (25.0-35.0); MCHC 29.6 g/dL (31.0-37.0); MCV 86.4 fL (80.0-100.0); Mean Platelet Volume 7.4; Monocytes # (A) 0.3 k/uL (0-1.0); Monocytes % (A) 6 %; Neutrophils # (A) 4.7 k/uL (1.3-7.7); Neutrophils % (A) 76 %; Platelet Count 345 k/uL (150-450); RBC 3.53 m/uL (4.30-5.90); RDW 18.6 % (11.5-15.5); WBC 6.1 k/uL (3.8-10.6)
[2023-10-04 13:35] LABS: ALT 16 U/L (4-49); AST 22 U/L (17-59); African American GFR (CKD) >90 (>60 ml/min/1.73 sqM); Albumin 3.4 g/dL (3.5-5.0); Alcohol 74 mg/dL; Alkaline Phosphatase 65 U/L (38-126); Anion Gap 17 mmol/L; Blood Urea Nitrogen 14 mg/dL (9-20); Calcium 8.7 mg/dL (8.4-10.2); Carbon Dioxide 12 mmol/L (22-30); Chloride 116 mmol/L (98-107); Glucose 69 mg/dL (74-99); Magnesium 1.8 mg/dL (1.6-2.3); Non-African American GFR(CKD) >90 (>60 ml/min/1.73 sqM); Potassium 3.6 mmol/L (3.5-5.1); Sodium 145 mmol/L (137-145); Total Bilirubin 0.2 mg/dL (0.2-1.3); Total Protein 6.2 g/dL (6.3-8.2)
[2023-10-04 13:38] LABS: INR 0.9 (<1.2); Partial Thromboplastin Time 22.7 sec (22.0-30.0); Prothrombin Time 10.1 sec (10.0-12.5)
[2023-10-04 13:43] LABS: NT-Pro-B-Type Natriuretic Pept 2880 pg/mL
[2023-10-04] MEDS: SODIUM CHLORIDE 0.9% 500 ML IV STA ×2 (14:05→14:40)
[2023-10-04] MEDS: SODIUM CHLORIDE 0.9% 1,000 ML IV STA (14:05)
[2023-10-04] MEDS ORDERED: NITROGLYCERIN SL TABS 0.4 MG TAB SUBLINGUAL PRN (15:31)
--- NOTE | 2023-10-04 16:03 | XR ---
EXAMINATION TYPE: XR chest 2V DATE OF EXAM: 10/04/2023 3:40 PM CLINICAL INDICATION:Male, 57 years old with history of Chest Pain; COMPARISON: Chest radiographs from 06/28/2023 TECHNIQUE: XR chest 2V Frontal and lateral views of the chest. FINDINGS: Lungs/Pleura: There is no evidence of pleural effusion, focal consolidation, or pneumothorax. Pulmonary vascularity: Unremarkable. Heart/mediastinum: Cardiomediastinal silhouette is enlarged and stable. Atherosclerotic calcificatio ns are seen in the aorta. Musculoskeletal: No acute osseous pathology. Remote appearing right-sided rib fracture. IMPRESSION: Cardiomegaly and mild pulmonary vascular congestion. Correlate with BNP for congestive heart failure.
[2023-10-04] MEDS: FUROSEMIDE 10 MG/ML 4 ML VIAL IV STA (18:19)
[2023-10-04] MEDS: NITROGLYCERIN OINT 1 INCH/GM PACKET TOPICAL SCH (18:20)
[2023-10-04] MEDS: ATORVASTATIN 80 MG TAB PO SCH (20:39)
[2023-10-04] MEDS: TICAGRELOR 90 MG TAB PO SCH (20:40)
[2023-10-04] MEDS: METOPROLOL TARTRATE 25 MG TAB PO SCH (20:40)
--- NOTE | 2023-10-05 00:36 | P.HPIM ---
History of Present Illness H&P Date: 10/04/23 Chief Complaint: Chest pain Patient is a 57-year-old male with a past medical history of hypertension, COPD, EtOH abuse with history of DTs, coronary artery with history of stent placement, chronic CHF with systolic dysfunction, paroxysmal atrial fibrillation, chronic low back pain, kyphosis/scoliosis, anxiety/depression bipolar disorder and PTSD and currently everyday smoker and daily alcohol use presents to ER with the complaints of chest pain. Patient states that 3 hours prior to coming to ER he started having left retrosternal chest pain associate with shortness of breath and nausea and felt sweaty. Patient states that she had similar symptoms when apparently had OK. Patient states that his last drink was yesterday evening. On admission blood pressure 89/60 and dropped down to 65/38. Patient is 97% on 4 L via nasal cannula. Chest x-ray showed cardiomegaly with mild pulmonary vascular congestion. Correlate with BNP for CHF. EKG showed sinus rhythm Laboratory pressure WBC 6.1 hemoglobin 9.0 and platelets 345 Sodium 144 potassium 3.6 chloride 106 bicarb is 12 BUN 14 and creatinine 0.68 and blood sugar is 69 Troponin 0.028, 0.025 and 0.034 proBNP 2880 Albumin 3.4 Serum alcohol level is 74 Patient underwent cardiac catheterization on 06/28/2023 showed severe calcifications of coronary arteries. Patent stent in the proximal and mid LAD with chronic total occlusion distally. Chronic total occlusion of the proximal RCA with [id number] collaterals. Total occlusion of the proximal left circumflex with slow flow distally. Elevated LVEDP. Due to high risk intervention patient was transferred to [facility] for further intervention. Review of Systems Constitutional: Patient denies any fever or chills . No generalized weakness or weight loss. Abdomen: Patient denied nausea vomiting and diarrhea and abdominal pain. Cardiovascular: Patient complains of chest pain associated with short of breath no palpitations. Leg swelling. Respiratory: patient denied any cough is from production. No shortness of breath Neurologic: Patient denied any numbness or tingling headache. Musculoskeletal: Patient denies any complaints of joint swelling or deformity. Skin: Negative Psychiatric: Negative Endocrine: No heat or cold intolerance. No recent weight gain. Genitourinary: No dysuria or hematuria. All other 14 point ROS negative except the above Past Medical History Past Medical History: COPD, GERD/Reflux, GI Bleed, Hypertension, Myocardial Infarction ([place]), Pneumonia, Skin Disorder Additional Past Medical History / Comment(s): ETOH abuse with delirium tremors, lower GI bleed, IBS, chronic iron deficiency anemia, hypomagnesemia, hyperbili rubinemia, anorexia, vertigo, nephrolithiasis-passed stone on his own, chronic low back/cervical pain, DDD, kyphosis, scoliosis, coccyx pressure ulcer pt states is mostly healed. Dry and itchy skin back in high school. 2 heart attacks, one in December (2020) second in February (2020). Last Myocardial Infarction Date:: February 2021 History of Any Multi-Drug Resistant Organisms: None Reported Past Surgical History: Bariatric Surgery, Heart Catheterization With Stent, Hernia Repair, Orthopedic Surgery, Tonsillectomy Additional Past Surgical History / Comment(s): Right inner Forearm-metal plate, gastric bypass, incisional hernia surgery x2, EGDs, colonoscopies. 2 Stents placed in December 2020; bilateral knee surgeries Past Anesthesia/Blood Transfusion Reactions: No Reported Reaction Date of Last Stent Placement:: 2020 Past Psychological History: Anxiety, Bipolar, Depression, PTSD Smoking Status: Current every day smoker Past Alcohol Use History: Abuse, Daily Past Drug Use History: None Reported - Past Family History Mother History Unknown: Yes Family Medical History: Hypertension Additional Family Medical History / Comment(s): Lupus. Mother is living. Father History Unknown: Yes Family Medical History: Liver Disease Additional Family Medical History / Comment(s): ETOH abuse. of cirrhosis complications. Medications and Allergies Home Medications Medication Instructions Recorded Confirmed Type Atorvastatin [Lipitor] 80 mg PO HS 03/30/21 10/04/23 History Aspirin 81 mg PO DAILY tab 11/17/22 10/04/23 Rx Omeprazole [PriLOSEC] 20 mg PO DAILY 12/06/22 10/04/23 History Metoprolol Tartrate [Lopressor] 25 mg PO BID #60 tab 12/08/22 10/04/23 Rx Amiodarone [Cordarone] 200 mg PO DAILY 06/28/23 10/04/23 History DULoxetine HCL [Cymbalta] 60 mg PO DAILY 06/28/23 10/04/23 History Multivit with Calcium,Iron,Min 1 tab PO DAILY 06/28/23 10/04/23 History [Women's Daily Formula] Apixaban [Eliquis] 5 mg PO BID 10/04/23 10/04/23 History Ticagrelor [Brilinta] 90 mg PO BID 10/04/23 10/04/23 History Allergies Allergy/AdvReac Type Severity Reaction Status Date / Time Iodinated Contrast Media Allergy Itching-see Verified 10/04/23 12:36 comment Physical Exam Vitals: Vital Signs Temp Pulse Resp BP Pulse Ox 10/04/23 20:45 70 16 92/63 98 10/04/23 18:00 70 16 91/62 100 10/04/23 15:23 74 18 91/63 100 10/04/23 15:00 73 12 78/41 100 10/04/23 14:00 72 16 75/40 100 10/04/23 13:00 65/38 10/04/23 12:34 97.6 F 72 16 89/60 97 Intake and Output 10/04/23 10/04/23 10/04/23 06:59 14:59 22:59 Other: Weight 83.915 kg PHYSICAL EXAMINATION: Patient is lying in the bed comfortably, no acute distress, awake alert and oriented.. HEENT: Normocephalic. Neck is supple. Pupils reactive. Nostrils clear. Oral cavity is moist. Neck reveals no JVD, carotid bruits, or thyromegaly. CHEST EXAMINATION: Trachea is central. Symmetrical expansion. Left basilar crackles. No wheezing or rhonchi. Nonlabored breathing.. CARDIAC: Normal S1, S2 with no gallops. No murmurs ABDOMEN: Soft. Bowel sounds normal. No organomegaly. No abdominal bruits. Extremities: Trace bilateral pedal edema. No clubbing or cyanosis Neurologically awake, alert, oriented x3 with well-coordinated movements. No focal deficits noted Skin: No rash or skin lesions. Psychiatric: Coperative. Nonsuicidal Musculoskeletal: No joint swelling or deformity. Normal range of motion. Results CBC & Chem 7: 10/04/23 13:02 10/04/23 13:02 Labs: Abnormal Lab Results - Last 24 Hours (Table) 10/04/23 10/04/23 Range/Units 13:02 13:02 RBC 3.53 L (4.30-5.90) m/uL Hgb 9.0 L (13.0-17.5) gm/dL Hct 30.5 L (39.0-53.0) % MCHC 29.6 L (31.0-37.0) g/dL RDW 18.6 H (11.5-15.5) % Lymphocytes # 0.7 L (1.0-4.8) k/uL Chloride 116 H (98-107) mmol/L Carbon Dioxide 12 L (22-30) mmol/L Glucose 69 L (74-99) mg/dL Total Protein 6.2 L (6.3-8.2) g/dL Albumin 3.4 L (3.5-5.0) g/dL Thrombosis Risk Factor Assmnt - DVT/VTE Prophylaxis DVT/VTE Prophylaxis: Pharmacologic Prophylaxis ordered Assessment and Plan Assessment: Chest pain with significant history of CAD. Rule out ACS Coronary artery disease with prior history of stent placement to proximal and mid LAD and recent high risk intervention. Patient was transferred to [facility]. Chronic CHF with systolic dysfunction ejection fraction 30 to 35% Chronic right heart failure and severe pulmonary hypertension Paroxysmal atrial fibrillation on anticoagulation with Eliquis Alcohol intoxication on admission with level 74 Prior history of alcohol withdrawal symptoms and DTs Hypertension History of [place] Chronic iron deficiency Chronic low back pain, DDD, kyphosis and scoliosis GERD and prior history of GI bleed History of gastric bypass surgery Anxiety/depression/bipolar and PTSD Current everyday smoker and daily alcohol use GI prophylaxis with PPI Plan: Patient will be continued on telemetry. Was given a dose of IV Lasix in the ER. Continue with aspirin, Brilinta and statins and metoprolol. Follow-up serial troponins. Monitor for alcohol withdrawal symptoms Cardiology consulted for further evaluation. Continue to follow closely. Prognosis is guarded. Time with Patient: Greater than 30
[2023-10-05] MEDS: PANTOPRAZOLE 40 MG TABLET PO SCH (05:33)
[2023-10-05] MEDS ORDERED: REGADENOSON 0.4 MG/5 ML SYRINGE IV PRN (08:23)
[2023-10-05] MEDS ORDERED: AMINOPHYLLINE 500 MG/20 ML VIAL IV PRN (08:23)
[2023-10-05] MEDS ORDERED: CAFFEINE CITRATE 60 MG/3 ML VIAL IV PRN (08:23)
[2023-10-05 08:28] LABS: Anisocytosis Slight; HCT 31.7 % (39.0-53.0); HGB 8.8 gm/dL (13.0-17.5); Hypochromasia Marked; MCHC 27.8 g/dL (31.0-37.0); Mean Platelet Volume 7.6; Platelet Count 315 k/uL (150-450); RBC 3.53 m/uL (4.30-5.90); RDW 18.3 % (11.5-15.5); WBC 7.2 k/uL (3.8-10.6)
[2023-10-05 08:53] LABS: Lymphocytes # (M) 1.73 k/uL (1.0-4.8); Monocytes # (M) 0.94 k/uL (0-1.0); Neutrophils # (M) 4.54 k/uL (1.3-7.7); Neutrophils % (M) 63 %; Nucleated Red Blood Cells 0 /100 WBC (0-0); Ovalocytes Present; Target Cells Present; Total Cells Counted 100
[2023-10-05 08:54] LABS: Anisocytosis (M) Present; Poikilocytosis (M) Present
[2023-10-05] MEDS ORDERED: FAMOTIDINE 20 MG TAB PO SCH (09:00)
[2023-10-05] MEDS ORDERED: ASPIRIN 81 MG PO SCH (09:00)
--- NOTE | 2023-10-05 10:36 | CA ---
Transthoracic Echo Report Name: Jonathan Parsons Age: 57 Gender: M : 1965 Exam Date: 10/04/2023 16:49 Exam Location: [place] [facility] Ht (in): 68 Wt (lb): 185 Ordering Physician: Harjinder Worthy DO Attending/Referring Phys: [id number], [employer] Field Technician Nikole Lopez, [place] Procedure CPT: Indications: CP Cardiac Hx: Hx of [place], stents, HTN, COPD Technical Quality: Technically difficult study Contrast 1: Total Dose (mL): Contrast 2: Total Dose (mL): MEASUREMENTS (Male / Female) Normal Values 2D ECHO LV Diastolic Diameter PLAX 5.3 cm 4.2 - 5.9 / 3.9 - 5.3 cm LV Systolic Diameter PLAX 4.2 cm IVS Diastolic Thickness 1.1 cm 0.6 - 1.0 / 0.6 - 0.9 cm LVPW Diastolic Thickness 1.1 cm 0.6 - 1.0 / 0.6 - 0.9 cm LV Relative Wall Thickness 0.4 RV Internal Dim ED PLAX 3.5 cm LA Systolic Diameter LX 4.5 cm 3.0 - 4.0 / 2.7 - 3.8 cm LV Diastolic Volume MOD BP 270.5 cm??? 67 - 155 / 56 - 104 cm??? LV Systolic Volume MOD BP 197.1 cm??? - 58 / 19 - 49 cm??? LV Ejection Fraction MOD BP 27.1 % >= 55 % LV Cardiac Index MOD BP 2572.2 cm???/min???m??? LV Diastolic Volume MOD 4C 288.3 cm??? LV Systolic Volume MOD 4C 217.2 cm??? LV Ejection Fraction MOD 4C 24.7 % LV Cardiac Index MOD 4C 2492.5 cm???/min???m??? LV Diastolic Length 4C 11.4 cm LV Systolic Length 4C 11.2 cm LV Diastolic Volume MOD 2C 249.0 cm??? LV Systolic Volume MOD 2C 181.7 cm??? LV Ejection Fraction MOD 2C 27.0 % LV Cardiac Index MOD 2C 2358.3 cm???/min???m??? LV Diastolic Length 2C 11.8 cm LV Systolic Length 2C 11.3 cm LA Volume 173.9 cm??? 18 - 58 / 22 - 52 cm??? LA Volume Index 85.9 cm???/m??? 16 - 28 cm???/m??? M-MODE Aortic Root Diameter MM 3.8 cm DOPPLER AV Peak Velocity 134.3 cm/s AV Peak Gradient 7.2 mmHg MV Area PHT 4.4 cm??? Mitral E Point Velocity 104.5 cm/s Mitral A Point Velocity 69.4 cm/s Mitral E to A Ratio 1.5 MV Deceleration Time 173.9 ms TR Peak Velocity 295.0 cm/s TR Peak Gradient 34.8 mmHg Right Ventricular Systolic Press 39.8 mmHg FINDINGS Left Ventricle Left ventricular ejection fraction is estimated at 20-25 %. Left ventricular cavity size normal. Mildly increased septal wall thickness. Severely increased left ventricular diastolic volume. Severely increased left ventricular systolic volume. Severely decreased left ventricular ejection fraction. Apical thrombus Right Ventricle Mild right ventricular dilatation. Mild pulmonary hypertension. Right Atrium Normal right atrial size. Left Atrium Mildly increased left atrial diameter. Severely increased left atrial volume. Moderately increased left atrial area. Mitral Valve Structurally normal mitral valve. Moderate mitral regurgitation. Aortic Valve Aortic valve not well visualized. No aortic valve stenosis or regurgitation. Tricuspid Valve Structurally normal tricuspid valve. Mild tricuspid regurgitation. Pulmonic Valve Pulmonic valve not well visualized. Pericardium No pericardial effusion. Aorta Mild aortic dilatation at the level of the sinuses of valsalva 38 mm CONCLUSIONS Technically difficult study for interpretation Severe LV systolic dysfunction with an EF between 20-25% with mid ventricle and apical hypokinesia Apical thrombus was noted using contrast to study Moderate mitral regurgitation Previewed by: Dr. Balta Bird MD (Electronically Signed) Final Date: 05 October 2023 10:35
--- NOTE | 2023-10-05 10:50 | P.CRDCN ---
History of Present Illness History of present illness: HISTORY OF PRESENT ILLNESS: This is a 57-year-old male with a past medical history significant for coronary artery disease, paroxysmal atrial fibrillation, hyperlipidemia, anxiety, depres rosa, bipolar disorder, PTSD, nicotine dependence, and alcohol abuse. Patient follows in the office with Dr. Chaudhari. We have been asked to see the patient in consultation for chest pain. Patient examined at the bedside. Patient states yesterday morning he did some light cleaning around his house and walked to get his mail. He states that he then was sitting outside waiting for a doororder when he began to have chest pain. He states the pain was in the middle of his chest and he describes it as a crushing pain. He reports feeling short of breath, nauseated, and dizzy. He denied any radiation of the pain. He states that he went inside and called EMS. He did receive nitro which he states helped his pain. This morning he is only complaining of pain with deep inspiration. It is noted that the patient underwent cardiac catheterization by Dr. Dunlap in June 2023 revealing severe calcifications in the coronary arteries, patent stent in the proximal mid LAD with chronic total occlusion distally, chronic total occlusion of the proximal RCA with [id number] collaterals, total occ lusion of the proximal left circumflex with slow flow distally, and elevated LVEDP. The patient was transferred to [facility] for high risk PCI. The patient underwent stenting of the proximal to mid circumflex to mid second obtuse marginal branch. DIAGNOSTICS: - EKG reveals sinus mechanism with no signs of acute ischemia.. - Chest xray cardiomegaly and mild pulmonary vascular congestion. - Laboratory data: WBC 7.2. Hemoglobin 8.8. Platelet count 315. Sodium 145. Potassium 3.6. BUN 14. Creatinine 0.68. Troponin negative x 3 proBNP 2880. - Current home cardiac medications include atorvastatin 80 mg at night, Brilinta 90 mg twice a day, metoprolol titrate 25 mg twice a day, aspirin 81 mg daily, Eliquis 5 mg twice a day, and amiodarone 200 mg daily -Echocardiogram obtained this admission reveals ejection fraction 20 to 25% with apical hypokinesia,, mild pulmonary hypertension, apical thrombus, and moderate mitral regurgitation REVIEW OF SYSTEMS: At the time of my exam: CONSTITUTIONAL: Denies fever or chills. HEENT: Denies blurred vision, vision changes, or eye pain. Denies hemoptysis CARDIOVASCULAR: Denies chest pain. Denies orthopnea. Denies PND. Denies palpitations RESPIRATORY: Denies shortness of breath. GASTROINTESTINAL: Denies abdominal pain. Denies nausea or vomiting. HEMATOLOGIC: Denies bleeding disorders. GENITOURINARY: Denies any blood in urine. SKIN: Denies pruitis. Denies rash. PHYSICAL EXAM: VITAL SIGNS: Reviewed. GENERAL: Well-developed in no acute distress. HEENT: Head is normocephalic. Pupils are equal, round. Sclerae anicteric. Mucous membranes of the mouth are moist. Neck supple. No JVD or thyromegaly LUNGS: Respirations even and unlabored. Lungs essentially clear to auscultation bilaterally. HEART: Regular rate and rhythm. S1 and S2 heard. ABDOMEN: Soft. Nondistended. Nontender. EXTREMITIES: Normal range of motion. No clubbing or cyanosis. Peripheral pulses intact. No lower extremity edema NEUROLOGIC: Awake and alert. Oriented x 3. ASSESSMENT: Chest pain Acute alcohol intoxication, serum alcohol 74 on admission Apical thrombus Triple-vessel coronary artery disease with recent stenting of the proximal to mid circumflex to mid second obtuse marginal branch, performed at [facility] in June 2023 Paroxysmal atrial fibrillation Ischemic cardiomyopathy, 20 to 25% Hyperlipidemia Anxiety Depression Bipolar disorder PTSD Nicotine dependence History of alcohol abuse PLAN: An acute coronary event has been ruled out 2D echo obtained and reviewed Resume home cardiac medications Patient is currently taking aspirin, Brilinta, and Eliquis. Will discontinue aspirin and continue with Eliquis and Brilinta. Patient to undergo Lexiscan stress test today Abstinence from alcohol recommended Smoking cessation encouraged Further recommendations pending patient course Patient to follow-up postdischarge with Dr. Chaudhari Nurse practitioner note has been reviewed by physician. Signing provider agrees with the documented findings, assessment, and plan of care documented by [employer]UDER as a scribe. Past Medical History Past Medical History: COPD, GERD/Reflux, GI Bleed, Hypertension, Myocardial Infarction (ME), Pneumonia, Skin Disorder Additional Past Medical History / Comment(s): ETOH abuse with delirium tremors, lower GI bleed, IBS, chronic iron deficiency anemia, hypomagnesemia, hyperbilirubinemia, anorexia, vertigo, nephrolithiasis-passed stone on his own, chronic low back/cervical pain, DDD, kyphosis, scoliosis, coccyx pressure ulcer pt states is mostly healed. Dry and itchy skin back in high school. 2 heart attacks, one in December (2020) second in February (2020). Last Myocardial Infarction Date:: February 2021 History of Any Multi-Drug Resistant Organisms: None Reported Past Surgical History: Bariatric Surgery, Heart Catheterization With Stent, Hernia Repair, Orthopedic Surgery, Tonsillectomy Additional Past Surgical History / Comment(s): Right inner Forearm-metal plate, gastric bypass, incisional hernia surgery x2, EGDs, colonoscopies. 2 Stents placed in December 2020; bilateral knee surgeries Past Anesthesia/Blood Transfusion Reactions: No Reported Reaction Date of Last Stent Placement:: 2020 Past Psychological History: Anxiety, Bipolar, Depression, PTSD Smoking Status: Current every day smoker Past Alcohol Use History: Abuse, Daily Past Drug Use History: None Reported - Past Family History Mother History Unknown: Yes Family Medical History: Hypertension Additional Family Medical History / Comment(s): Lupus. Mother is living. Father History Unknown: Yes Family Medical History: Liver Disease Additional Family Medical History / Comment(s): ETOH abuse. of cirrhosis complications. Medications and Allergies Home Medications Medication Instructions Recorded Confirmed Type Atorvastatin [Lipitor] 80 mg PO HS 03/30/21 10/04/23 History Aspirin 81 mg PO DAILY tab 11/17/22 10/04/23 Rx Omeprazole [PriLOSEC] 20 mg PO DAILY 12/06/22 10/04/23 History Metoprolol Tartrate [Lopressor] 25 mg PO BID #60 tab 12/08/22 10/04/23 Rx Amiodarone [Cordarone] 200 mg PO DAILY 06/28/23 10/04/23 History DULoxetine HCL [Cymbalta] 60 mg PO DAILY 06/28/23 10/04/23 History Multivit with Calcium,Iron,Min 1 tab PO DAILY 06/28/23 10/04/23 History [Women's Daily Formula] Apixaban [Eliquis] 5 mg PO BID 10/04/23 10/04/23 History Ticagrelor [Brilinta] 90 mg PO BID 10/04/23 10/04/23 History Allergies Allergy/AdvReac Type Severity Reaction Status Date / Time Iodinated Contrast Media Allergy Itching-see Verified 10/04/23 12:36 comment Physical Exam Vitals: Vital Signs Temp Pulse Pulse Resp BP BP Pulse Ox 10/05/23 07:00 98.3 F 91 17 122/80 98 10/05/23 02:00 98.6 F 58 L 16 94/63 98 10/04/23 21:27 98.1 F 66 16 95/59 98 10/04/23 20:45 70 16 92/63 98 10/04/23 18:00 70 16 91/62 100 10/04/23 15:23 74 18 91/63 100 10/04/23 15:00 73 12 78/41 100 10/04/23 14:00 72 16 75/40 100 10/04/23 13:00 65/38 10/04/23 12:34 97.6 F 72 16 89/60 97 Intake and Output 10/04/23 10/05/23 10/05/23 22:59 06:59 14:59 Other: # Voids 1 2 Weight 83.915 kg Results 10/05/23 06:05 10/04/23 13:02 Cardiac Enzymes 10/04/23 10/04/23 10/04/23 Range/Units 13:02 13:02 16:06 AST 22 (17-59) U/L Troponin I 0.028 0.025 (0.000-0.034) ng/mL 10/04/23 Range/Units 18:07 AST (17-59) U/L Troponin I 0.034 (0.000-0.034) ng/mL Coagulation 10/04/23 Range/Units 13:02 PT 10.1 (10.0-12.5) sec APTT 22.7 (22.0-30.0) sec CBC 10/04/23 Range/Units 13:02 WBC 6.1 (3.8-10.6) k/uL RBC 3.53 L (4.30-5.90) m/uL Hgb 9.0 L (13.0-17.5) gm/dL Hct 30.5 L (39.0-53.0) % Plt Count 345 (150-450) k/uL Comprehensive Metabolic Panel 10/04/23 Range/Units 13:02 Sodium 145 (137-145) mmol/L Potassium 3.6 (3.5-5.1) mmol/L Chloride 116 H (98-107) mmol/L Carbon Dioxide 12 L (22-30) mmol/L BUN 14 (9-20) mg/dL Creatinine 0.68 (0.66-1.25) mg/dL Glucose 69 L (74-99) mg/dL Calcium 8.7 (8.4-10.2) mg/dL AST 22 (17-59) U/L ALT 16 (4-49) U/L Alkaline Phosphatase 65 (38-126) U/L Total Protein 6.2 L (6.3-8.2) g/dL Albumin 3.4 L (3.5-5.0) g/dL Current Medications Generic Name Dose Route Start Last Admin Trade Name Freq PRN Reason Stop Dose Admin Amiodarone HCl 200 mg 10/05/23 09:00 Amiodarone 200 Mg Tab PO DAILY [facility] Aspirin 81 mg 10/05/23 09:00 Aspirin 81 Mg PO DAILY [facility] Atorvastatin Calcium 80 mg 10/04/23 21:00 10/04/23 20:39 Atorvastatin 80 Mg Tab PO 80 mg HS [facility] Administration Duloxetine HCl 60 mg 10/05/23 09:00 Duloxetine Hcl 60 Mg Capsule.Dr PO DAILY [facility] Enoxaparin Sodium 40 mg 10/05/23 09:00 Enoxaparin 40 Mg/0.4 Ml Syringe SQ DAILY [facility] Folic Acid 1 mg 10/05/23 09:00 Folic Acid 1 Mg Tab PO DAILY [facility] Metoprolol Tartrate 25 mg 10/04/23 21:00 10/04/23 20:40 Metoprolol Tartrate 25 Mg Tab PO 25 mg BID [facility] Administration Multivitamins 1 each 10/05/23 09:00 Multivitamins, Thera 1 Each Tab PO DAILY [facility] Nitroglycerin 0.4 mg 10/04/23 15:31 Nitroglycerin Sl Tabs 0.4 Mg Tab SUBLINGUAL Q5M PRN Chest Pain Pantoprazole Sodium 40 mg 10/05/23 07:30 10/05/23 05:33 Pantoprazole 40 Mg Tablet PO 40 mg [id number] [facility] Administration Thiamine HCl 100 mg 10/05/23 09:00 Thiamine 100 Mg Tab PO DAILY [facility] Ticagrelor 90 mg 10/04/23 21:00 10/04/23 20:40 Ticagrelor 90 Mg Tab PO 90 mg BID [facility] Administration Intake and Output 10/04/23 10/05/23 10/05/23 22:59 06:59 14:59 Other: # Voids 1 2 Weight 83.915 kg 10/04/23 13:02 10/04/23 13:02
[2023-10-05 11:01] LABS: Blood Urea Nitrogen 15.4 mg/dL (9.0-27.0); Calcium 8.4 mg/dL (8.7-10.3); Carbon Dioxide 23.7 mmol/L (21.6-31.8); Chloride 104 mmol/L (96-109); Chol/HDL Ratio 2.81 Ratio; Glucose 82 mg/dL (70-110); Potassium 4.1 mmol/L (3.5-5.5); Sodium 140 mmol/L (135-145); VLDL Calculation 13.68 mg/dL (5.00-40.00)
[2023-10-05] MEDS: ENOXAPARIN 40 MG/0.4 ML SYRINGE SQ SCH (12:25)
[2023-10-05] MEDS: THIAMINE 100 MG TAB PO SCH (12:30)
[2023-10-05] MEDS: MULTIVITAMINS, THERA 1 EACH TAB PO SCH (12:30)
[2023-10-05] MEDS: FOLIC ACID 1 MG TAB PO SCH (12:30)
--- NOTE | 2023-10-05 13:05 | NM ---
EXAMINATION TYPE: NM stress lexiscan cardiolite DATE OF EXAM: 10/05/2023 COMPARISON: NONE CLINICAL INDICATION: Male, 57 years old with history of CP; TECHNIQUE: After the intravenous administration of 9.61 mCi Tc 99m Sestamibi - Cardiolite resting SP ECT images acquired 45 minutes post injection. The patient received 0.4mg Lexiscan, 24.9 mCi Tc 99m Sestamibi - Stress images obtained [address] injection FINDINGS: Exam is severely limited due to extensive GI activity adjacent to the lateral wall. There is a large fixed defect involving the inferior wall and anteroseptal wall. Polar maps suggest diffuse reversibil ity but this is not well demonstrated on the SPECT images. Gated analysis shows global hypokinesis w ith estimated left ventricular ejection fraction of 35 %.TID measurement 1.02, within normal limits. IMPRESSION: Markedly abnormal exam. There is global hypokinesis with estimated LVEF of 35% and large areas of fixed perfusion defect including the anteroseptal wall and inferior wall. Correlate for larg e areas of old infarct/ischemic cardiomyopathy. Given the large amount of GI activity just adjacent, assessment for focal reversibility is very limited.
[2023-10-05] MEDS: RANOLAZINE 500 MG TAB.ER.12H PO SCH (13:28)
[2023-10-05] MEDS: DULoxetine HCL 60 MG CAPSULE.DR PO SCH (13:28)
[2023-10-05] MEDS: ISOSORBIDE MONONITRATE ER 30 MG TAB.ER.24H PO SCH (13:28)
[2023-10-05] MEDS: AMIODARONE 200 MG TAB PO SCH (13:28)
--- NOTE | 2023-10-05 17:58 | CA ---
Lexiscan Nuclear Stress Test Report Name: Jonathan Parsons Exam Date: 10/05/2023 10:44 Exam Location: [place] Stress Ht (in): 68 Wt (lb): 185 BSA: 1.98 Ordering Phys: Luiza Storey Referring Phys: LUIZA STOREY Technologist: VIVIEN IVY Age: 57 Gender: M : 1965 Procedure CPT: Indications: Reflex order-Stress test ICD-10 Codes: Patient History: CHEST PAIN, DIFFICULTY IN BREATHING, ANGINA, HTN, FAMILY HX OF HEART DISEASE, CURRENT SMOKER, PRIOR [place], PRIOR CATH WITH STENTS X 3, COPD Medications: Meds past 24 hrs: Pretest Chest Pain: STRESS TEST Lexiscan Protocol Exercise Duration (min:sec): 00:[address] Depressions (mm): Angina Score: Ritter Score: Resting HR (bpm): 76 Peak HR (bpm): 93 Resting BP (mmHg): 110 / 70 Peak BP (mmHg): 110 / 70 MPHR: 163 Target HR: 139 % MPHR: 57 METS: 1.0 Total Dose: Peak Dose: Atropine: Double Product: 27568 BP Response: Stress Termination: INFUSION COMPLETE Stress Symptoms: NO SYMPTOMS Stress Summary: ECG ANALYSIS Resting ECG: Stress ECG: CONCLUSIONS Nondiagnostic stress testing Dr. Balta Bird MD (Electronically Signed) Final Date: 05 October 2023 17:57
--- NOTE | 2023-10-05 18:47 | P.PN ---
Subjective Progress Note Date: 10/05/23 57-year-old male with a past medical history of hypertension, COPD, EtOH abuse with history of DTs, coronary artery with history of stent placement, chronic CHF with systolic dysfunction, paroxysmal atrial fibrillation, chronic low back pain, kyphosis/scoliosis, anxiety/depression bipolar disorder and PTSD and currently everyday smoker and daily alcohol use presents to ER with the complaints of chest pain. Patient states that 3 hours prior to coming to ER he started having left retrosternal chest pain associate with shortness of breath and nausea and felt sweaty. Patient states that she had similar symptoms when apparently had MS. Patient states that his last drink was yesterday evening. On admission blood pressure 89/60 and dropped down to 65/38. Patient is 97% on 4 L via nasal cannula. Chest x-ray showed cardiomegaly with mild pulmonary vascular congestion. Correlate with BNP for CHF. EKG showed sinus rhythm Laboratory pressure WBC 6.1 hemoglobin 9.0 and platelets 345 Sodium 144 potassium 3.6 chloride 106 bicarb is 12 BUN 14 and creatinine 0.68 and blood sugar is 69 Troponin 0.028, 0.025 and 0.034 proBNP 2880 Albumin 3.4 Serum alcohol level is 74 Patient underwent cardiac catheterization on 06/28/2023 showed severe calcifications of coronary arteries. Patent stent in the proximal and mid LAD with chronic total occlusion distally. Chronic total occlusion of the proximal RCA with [id number] collaterals. Total occlusion of the proximal left circumflex with slow flow distally. Elevated LVEDP. Due to high risk intervention patient was transferred to [facility] for further intervention. Objective - Vital Signs Vital signs: Vital Signs Temp 98.3 F 10/05/23 07:00 Pulse 91 10/05/23 07:00 Resp 17 10/05/23 07:00 BP 122/80 10/05/23 07:00 Pulse Ox 98 10/05/23 07:00 FiO2 Intake & Output 10/04/23 10/05/23 10/05/23 18:59 06:59 18:59 Weight 83.915 kg 83.915 kg Other: # Voids 2 - Exam Patient is lying in the bed comfortably, no acute distress, awake alert and oriented.. HEENT: Normocephalic. Neck is supple. Pupils reactive. Nostrils clear. Oral cavity is moist. Neck reveals no JVD, carotid bruits, or thyromegaly. CHEST EXAMINATION: Trachea is central. Symmetrical expansion. Left basilar crackles. No wheezing or rhonchi. Nonlabored breathing.. CARDIAC: Normal S1, S2 with no gallops. No murmurs ABDOMEN: Soft. Bowel sounds normal. No organomegaly. No abdominal bruits. Extremities: Trace bilateral pedal edema. No clubbing or cyanosis Neurologically awake, alert, oriented x3 with well-coordinated movements. No focal deficits noted Skin: No rash or skin lesions. Psychiatric: Coperative. Nonsuicidal Musculoskeletal: No joint swelling or deformity. Normal range of motion. - Labs CBC & Chem 7: 10/05/23 06:05 10/05/23 06:05 Labs: Abnormal Lab Results - Last 24 Hours (Table) 10/04/23 10/04/23 10/05/23 Range/Units 13:02 13:02 06:05 RBC 3.53 L (4.30-5.90) m/uL Hgb 9.0 L (13.0-17.5) gm/dL Hct 30.5 L (39.0-53.0) % MCHC 29.6 L (31.0-37.0) g/dL RDW 18.6 H (11.5-15.5) % Lymphocytes # 0.7 L (1.0-4.8) k/uL Chloride 116 H (98-107) mmol/L Carbon Dioxide 12 L (22-30) mmol/L Anion Gap 12.30 H (4.00-12.00) mmol/L BUN/Creatinine Ratio 22.00 H (12.00-20.00) Ratio Glucose 69 L (74-99) mg/dL Calcium 8.4 L (8.7-10.3) mg/dL Total Protein 6.2 L (6.3-8.2) g/dL Albumin 3.4 L (3.5-5.0) g/dL 10/05/23 Range/Units 06:05 RBC 3.53 L (4.30-5.90) m/uL Hgb 8.8 L (13.0-17.5) gm/dL Hct 31.7 L (39.0-53.0) % MCHC 27.8 L (31.0-37.0) g/dL RDW 18.3 H (11.5-15.5) % Lymphocytes # (1.0-4.8) k/uL Chloride (98-107) mmol/L Carbon Dioxide (22-30) mmol/L Anion Gap (4.00-12.00) mmol/L BUN/Creatinine Ratio (12.00-20.00) Ratio Glucose (74-99) mg/dL Calcium (8.7-10.3) mg/dL Total Protein (6.3-8.2) g/dL Albumin (3.5-5.0) g/dL Assessment and Plan Assessment: Chest pain with significant history of CAD. Rule out ACS Coronary artery disease with prior history of stent placement to proximal and mid LAD and recent high risk intervention. Patient was transferred to [facility]. Chronic CHF with systolic dysfunction ejection fraction 30 to 35% Chronic right heart failure and severe pulmonary hypertension Paroxysmal atrial fibrillation on anticoagulation with Eliquis Alcohol intoxication on admission with level 74 Prior history of alcohol withdrawal symptoms and DTs Hypertension History of MS Chronic iron deficiency Chronic low back pain, DDD, kyphosis and scoliosis GERD and prior history of GI bleed History of gastric bypass surgery Anxiety/depression/bipolar and PTSD Current everyday smoker and daily alcohol use GI prophylaxis with PPI Plan: Patient will be continued on telemetry. Was given a dose of IV Lasix in the ER. Continue with aspirin, Brilinta and statins and metoprolol. Follow-up serial troponins. Monitor for alcohol withdrawal symptoms Cardiology consulted for further evaluation. Continue to follow closely. Prognosis is guarded.
[2023-10-05] MEDS: APIXABAN 5 MG TAB PO SCH (22:38)
[2023-10-06 08:09] VITALS: RESP 18
--- NOTE | 2023-10-06 13:20 | P.PN ---
Subjective Progress Note Date: 10/06/23 This is a pleasant 57-year-old gentleman with a past medical history significant for CAD, paroxysmal atrial fibrillation, hyperlipidemia, anxiety, depression, bipolar disorder, PTSD, nicotine dependence and alcohol abuse. He follows in the office with Dr. Bob. Most recently he underwent high risk PCI at [facility] in June involving the proximal to mid circumflex to mid second obtuse marginal branch. He presented to the hospital with complaints of chest discomfort. Troponins were negative x 3. NT proBNP was elevated at 2880. He underwent Lexiscan MPI which showed fixed defect but there was a large amount of GI activity therefore the study was suboptimal. He was initiated on Ranexa and isosorbide yesterday. He has had no further complaints of chest discomfort. His breathing is stable. He denies any dizziness or lightheadedness. He has had no palpitations. Objective - Vital Signs Vital signs: Vital Signs Temp 97.9 F 10/06/23 07:00 Pulse 81 10/06/23 07:00 Resp 18 10/06/23 07:00 BP 123/78 10/06/23 07:00 Pulse Ox 96 10/06/23 07:48 FiO2 Intake & Output 10/05/23 10/06/23 10/06/23 18:59 06:59 18:59 Intake Total 118 Balance 118 Intake: Oral 118 Other: # Voids 4 1 # Bowel Movements 1 - Exam VITAL SIGNS: Reviewed. GENERAL: Well-developed in no acute distress. HEENT: Head is normocephalic. Pupils are equal, round. Sclerae anicteric. Mucous membranes of the mouth are moist. Neck supple. No JVD or thyromegaly LUNGS: Respirations even and unlabored. Lungs essentially clear to auscultation bilaterally. HEART: Regular rate and rhythm. S1 and S2 heard. ABDOMEN: Soft. Nondistended. Nontender. EXTREMITIES: Normal range of motion. No clubbing or cyanosis. Peripheral pulses intact. No lower extremity edema NEUROLOGIC: Awake and alert. Oriented x 3. - Labs CBC & Chem 7: 10/05/23 06:05 10/05/23 06:05 Labs: Abnormal Lab Results - Last 24 Hours (Table) 10/05/23 Range/Units 06:05 Anion Gap 12.30 H (4.00-12.00) mmol/L BUN/Creatinine Ratio 22.00 H (12.00-20.00) Ratio Calcium 8.4 L (8.7-10.3) mg/dL Assessment and Plan Assessment: Chest pain Acute alcohol intoxication, serum alcohol 74 on admission Apical thrombus Triple-vessel coronary artery disease with recent stenting of the proximal to mid circumflex to mid second obtuse marginal branch, performed at [facility] in June 2023 Paroxysmal atrial fibrillation Ischemic cardiomyopathy, 20 to 25% Hyperlipidemia Anxiety Depression Bipolar disorder PTSD Nicotine dependence History of alcohol abuse Plan: From cardiology's perspective medications were reviewed and we will continue the same. He has remained chest pain-free. From our standpoint patient may be dis charged home he will follow-up with Dr. Chaudhari as an outpatient. [employer] note has been reviewed, I agree with a documented findings and plan of care. Patient was seen and examined.
[2023-10-06 14:12] VITALS: BP 101/62; PULSE 84; TEMP 98.5
== END 2023-10-06 17:45 | disposition home or self-care (01) ==
LOC: EC 12:20 → 6NMEDSUR 15:34
PROVIDERS: ADMIT Internal Medicine; ATTEND Internal Medicine
DX: R07.9 Chest pain, unspecified (principal); R06.02 Shortness of breath; K21.9 Gastro-esophageal reflux disease without esophagitis; F17.210 Nicotine dependence, cigarettes, uncomplicated; F10.129 Alcohol abuse with intoxication, unspecified; Y90.3 Blood alcohol level of 60-79 mg/100 ml; F41.9 Anxiety disorder, unspecified; F31.9 Bipolar disorder, unspecified; F43.10 Post-traumatic stress disorder, unspecified; I48.0 Paroxysmal atrial fibrillation; I25.10 Atherosclerotic heart disease of native coronary artery without angina pectoris; E78.5 Hyperlipidemia, unspecified; I25.5 Ischemic cardiomyopathy; I10 Essential (primary) hypertension; I25.2 Old myocardial infarction; D50.9 Iron deficiency anemia, unspecified; Z79.899 Other long term (current) drug therapy; Z79.01 Long term (current) use of anticoagulants; Z79.82 Long term (current) use of aspirin; Z95.5 Presence of coronary angioplasty implant and graft; Z11.52 Encounter for screening for COVID-19; Z98.84 Bariatric surgery status; Z98.0 Intestinal bypass and anastomosis status
CPT/HCPCS: 96361; 96374; 96375; 99285; 36415; 94760; 93005; 93017; 82747; 83880; 80061; 80053; 80048; 82607; 83735; 84484; 85025 ×2; 85610; 85730; 87636; 71046; 78452; G0378 ×3; C8929; G0480; A9500; J1940; J2405; Q9957; J2785; 80320; 93306

== ENCOUNTER 2023-11-18 09:20 | Observation (INO) | payer MEDICARE, OTHER ==
--- NOTE | 2023-11-18 09:32 | ED ---
General Adult HPI - General Stated complaint: Chest pain Time Seen by Provider: 11/18/23 09:24 Source: patient, EMS, RN notes reviewed, old records reviewed Mode of arrival: EMS Limitations: no limitations - History of Present Illness Initial comments: Patient is a 58-year-old male present to the emergency department with concerns with chest discomfort. Onset of symptoms was prior to arrival while showering. Discomfort described as pressure and was rated 8/10. Discomfort is now mild after nitroglycerin by EMS. Patient did have associated dyspnea, nausea, and diaphoresis. Only mild nausea remains at this time. Patient does have history of previous cardiac history with previous stenting. - Related Data Home Medications Medication Instructions Recorded Confirmed Atorvastatin [Lipitor] 80 mg PO HS 03/30/21 11/18/23 Omeprazole [PriLOSEC] 20 mg PO DAILY 12/06/22 11/18/23 Amiodarone [Cordarone] 200 mg PO DAILY 06/28/23 11/18/23 DULoxetine HCL [Cymbalta] 60 mg PO DAILY 06/28/23 11/18/23 Multivit with Calcium,Iron,Min 1 tab PO DAILY 06/28/23 11/18/23 [Women's Multivitamin] Apixaban [Eliquis] 5 mg PO BID 10/04/23 11/18/23 Ticagrelor [Brilinta] 90 mg PO BID 10/04/23 11/18/23 Previous Rx's Medication Instructions Recorded Aspirin 81 mg PO DAILY tab 11/17/22 Metoprolol Tartrate [Lopressor] 25 mg PO BID #60 tab 12/08/22 Folic Acid 1 mg PO DAILY tab 10/06/23 Isosorbide Mononitrate ER [Imdur] 30 mg PO DAILY 30 Days #30 tab 10/06/23 Ranolazine [Ranexa] 500 mg PO Q12HR 30 Days #60 tab 10/06/23 Thiamine [Vitamin B-1] 100 mg PO DAILY tab 10/06/23 Allergies Allergy/AdvReac Type Severity Reaction Status Date / Time Iodinated Contrast Media Allergy Itching-see Verified 11/18/23 11:41 comment Review of Systems ROS Statement: Those systems with pertinent positive or pertinent negative responses have been documented in the HPI. ROS Other: All systems not noted in ROS Statement are negative. Constitutional: Denies: fever Eyes: Denies: eye pain ENT: Denies: ear pain Respiratory: Reports: as per HPI Cardiovascular: Reports: as per HPI, chest pain Gastrointestinal: Reports: nausea Genitourinary: Denies: dysuria Musculoskeletal: Denies: back pain Past Medical History Past Medical History: COPD, GERD/Reflux, GI Bleed, Hypertension, Myocardial Infarction ([place]), Pneumonia, Skin Disorder Additional Past Medical History / Comment(s): ETOH abuse with delirium tremors, lower GI bleed, IBS, chronic iron deficiency anemia, hypomagnesemia, hyperbilirubinemia, anorexia, vertigo, nephrolithiasis-passed stone on his own, chronic low back/cervical pain, DDD, kyphosis, scoliosis, coccyx pressure ulcer pt states is mostly healed. Dry and itchy skin back in high school. 2 heart attacks, one in December (2020) second in February (2020). Last Myocardial Infarction Date:: February 2021 History of Any Multi-Drug Resistant Organisms: None Reported Past Surgical History: Bariatric Surgery, Heart Catheterization With Stent, Hernia Repair, Orthopedic Surgery, Tonsillectomy Additional Past Surgical History / Comment(s): Right inner Forearm-metal plate, gastric bypass, incisional hernia surgery x2, EGDs, colonoscopies. 2 Stents placed in December 2020; bilateral knee surgeries Past Anesthesia/Blood Transfusion Reactions: No Reported Reaction Date of Last Stent Placement:: 2020 Past Psychological History: Anxiety, Bipolar, Depression, PTSD Smoking Status: Current every day smoker Past Alcohol Use History: Abuse, Daily Past Drug Use History: None Reported - Past Family History Mother History Unknown: Yes Family Medical History: Hypertension Additional Family Medical History / Comment(s): Lupus. Mother is living. Father History Unknown: Yes Family Medical History: Liver Disease Additional Family Medical History / Comment(s): ETOH abuse. of cirrhosis complications. General Exam Limitations: no limitations General appearance: alert, in no apparent distress Head exam: Present: normocephalic Eye exam: Present: normal appearance Neck exam: Present: normal inspection Respiratory exam: Present: normal lung sounds bilaterally Cardiovascular Exam: Present: regular rate, normal rhythm, normal heart sounds Expanded Peripheral pulses: 2+: Radial (R), Radial (L), Posterior Tibialis (R), Posterior Tibialis (L), Dorsalis Pedis (R), Dorsalis Pedis (L) GI/Abdominal exam: Present: soft. Absent: tenderness Extremities exam: Present: normal inspection. 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 Q wave in lead III.), sinus rhythm, normal ST/T EKG shows: tachycardia Medical Decision Making - Medical Decision Making Was pt. sent in by a medical professional or institution (, PA, [employer] OPERATIONS SPECIALIST, urgent care, hospital, or residential...) When possible be specific @ -No Did you speak to anyone other than the patient for history (EMS, parent, family, police, friend...)? What history was obtained from this source @ -No Did you review nursing and triage notes (agree or disagree)? Why? @ -I reviewed and agree with nursing and triage notes Were old charts reviewed (outside hosp., previous admission, EMS record, old EKG, old radiological studies, urgent care reports/EKG's, residential records)? Report findings @ -Previous chest x-ray reviewed showing findings similar to today's Differential Diagnosis (chest pain, altered mental status, abdominal pain women, abdominal pain men, vaginal bleeding, weakness, fever, dyspnea, syncope, headache, dizziness, GI bleed, back pain, seizure, CVA, palpatations, mental health, musculoskeletal)? @ -Differential Chest Pain: Stable Angina, Unstable Angina, STEMI, NSTEMI Aortic Dissection, Pneumothorax, Musculoskeletal, Esophageal Spasm GERD, Cholecystitis, Pancreatitis, Zoster, this is not meant to be an all-inclusive list. EKG interpreted by me (3pts min.). @ -As above X-rays interpreted by me (1pt min.). @ -Chest x-ray shows no acute process. There is gas-filled bowel bilaterally below the diaphragm similar to previous x-ray. CT interpreted by me (1pt min.). @ -None done U/S interpreted by me (1pt. min.). @ -None done What testing was considered but not performed or refused? (CT, X-rays, U/S, labs)? Why? @ -None What meds were considered but not given or refused? Why? @ -None Did you discuss the management of the patient with other professionals (professionals i.e. , PA, [employer] OPERATIONS SPECIALIST, lab, RT, psych nurse, social worker health services, chemical preparer, teacher, forest officer, director of casework department)? Give summary @ -Case was discussed with Dr. Ayon who will admit covering hospital call Was smoking cessation discussed for >3mins.? @ -No Was critical care preformed (if so, how long)? @ -No Were there social determinants of health that impacted care today? How? (Homelessness, low income, unemployed, alcoholism, drug addiction, transportation, low edu. Level, literacy, decrease access to med. care, long term, rehab)? @ -No Was there de-escalation of care discussed even if they declined (Discuss DNR or withdrawal of care, Hospice)? DNR status @ -No What co-morbidities impacted this encounter? (DM, HTN, Smoking, COPD, CAD, Cancer, CVA, ARF, Chemo, Hep., AIDS, mental health diagnosis, sleep apnea, morbid obesity)? @ -None Was patient admitted / discharged? Hospital course, mention meds given and route, prescriptions, significant lab abnormalities, going to OR and other pertinent info. @ -Patient reevaluated and improved. Patient is updated on results and plan. Patient will be admitted with cardiac consult. Admission orders written. CO2 is likely related with history of alcohol use Undiagnosed new problem with uncertain prognosis? @ -No Drug Therapy requiring intensive monitoring for toxicity (Heparin, Nitro, Insulin, Cardizem)? @ -No Were any procedures done? @ -No Diagnosis/symptom? @ -Chest pain Acute, or Chronic, or Acute on Chronic? @ -Acute Uncomplicated (without systemic symptoms) or Complicated (systemic symptoms)? @ -Default Side effects of treatment? @ -No Exacerbation, Progression, or Severe Exacerbation? @ -No Poses a threat to life or bodily function? How? (Chest pain, [place], [place], pneumonia, PE, COPD, DKA, ARF, appy, cholecystitis, CVA, Diverticulitis, Homicidal, Suicidal, threat to staff... and all critical care pts) @ -No - Lab Data Result diagrams: 11/18/23 09:39 11/18/23 09:39 Lab Results 11/18/23 11/18/23 11/18/23 Range/Units 09:39 09:39 09:39 WBC 6.5 (3.8-10.6) k/uL RBC 3.88 L (4.30-5.90) m/uL Hgb 9.5 L (13.0-17.5) gm/dL Hct 31.4 L (39.0-53.0) % MCV 81.0 D (80.0-100.0) fL MCH 24.5 L (25.0-35.0) pg MCHC 30.3 L (31.0-37.0) g/dL RDW 18.9 H (11.5-15.5) % Plt Count 380 (150-450) k/uL MPV 6.9 Neutrophils % 74 % Lymphocytes % 15 % Monocytes % 7 % Eosinophils % 1 % Basophils % 1 % Neutrophils # 4.8 (1.3-7.7) k/uL Lymphocytes # 1.0 (1.0-4.8) k/uL Monocytes # 0.4 (0-1.0) k/uL Eosinophils # 0.1 (0-0.7) k/uL Basophils # 0.0 (0-0.2) k/uL Hypochromasia Marked Anisocytosis Slight Microcytosis Slight PT 10.1 (10.0-12.5) sec INR 0.9 (<1.2) APTT 23.8 (22.0-30.0) sec Sodium 134 L (137-145) mmol/L Potassium 4.3 (3.5-5.1) mmol/L Chloride 105 (98-107) mmol/L Carbon Dioxide 13 L (22-30) mmol/L Anion Gap 16 mmol/L BUN 17 (9-20) mg/dL Creatinine 0.65 L (0.66-1.25) mg/dL Est GFR (CKD-EPI)AfAm >90 (>60 ml/min/1.73 sqM) Est GFR (CKD-EPI)NonAf >90 (>60 ml/min/1.73 sqM) Glucose 103 H (74-99) mg/dL Calcium 8.6 (8.4-10.2) mg/dL Magnesium 1.6 (1.6-2.3) mg/dL Total Bilirubin 0.8 (0.2-1.3) mg/dL AST 34 (17-59) U/L ALT 18 (4-49) U/L Alkaline Phosphatase 80 (38-126) U/L Troponin I (0.000-0.034) ng/mL Total Protein 6.7 (6.3-8.2) g/dL Albumin 3.8 (3.5-5.0) g/dL 11/18/23 Range/Units 09:39 WBC (3.8-10.6) k/uL RBC (4.30-5.90) m/uL Hgb (13.0-17.5) gm/dL Hct (39.0-53.0) % MCV (80.0-100.0) fL MCH (25.0-35.0) pg MCHC (31.0-37.0) g/dL RDW (11.5-15.5) % Plt Count (150-450) k/uL MPV Neutrophils % % Lymphocytes % % Monocytes % % Eosinophils % % Basophils % % Neutrophils # (1.3-7.7) k/uL Lymphocytes # (1.0-4.8) k/uL Monocytes # (0-1.0) k/uL Eosinophils # (0-0.7) k/uL Basophils # (0-0.2) k/uL Hypochromasia Anisocytosis Microcytosis PT (10.0-12.5) sec INR (<1.2) APTT (22.0-30.0) sec Sodium (137-145) mmol/L Potassium (3.5-5.1) mmol/L Chloride (98-107) mmol/L Carbon Dioxide (22-30) mmol/L Anion Gap mmol/L BUN (9-20) mg/dL Creatinine (0.66-1.25) mg/dL Est GFR (CKD-EPI)AfAm (>60 ml/min/1.73 sqM) Est GFR (CKD-EPI)NonAf (>60 ml/min/1.73 sqM) Glucose (74-99) mg/dL Calcium (8.4-10.2) mg/dL Magnesium (1.6-2.3) mg/dL Total Bilirubin (0.2-1.3) mg/dL AST (17-59) U/L ALT (4-49) U/L Alkaline Phosphatase (38-126) U/L Troponin I 0.031 (0.000-0.034) ng/mL Total Protein (6.3-8.2) g/dL Albumin (3.5-5.0) g/dL Disposition Clinical Impression: Chest pain Disposition: ADMITTED IP TO THIS HOSP Is patient prescribed a controlled substance at d/c from ED?: No Referrals: None,Stated [Primary Care Provider] - 1-2 days Time of Disposition: 12:22
[2023-11-18] MEDS: ASPIRIN 81 MG PO STA (09:38)
[2023-11-18 10:02] LABS: Anisocytosis Slight; Basophils % (A) 1 %; Eosinophils # (A) 0.1 k/uL (0-0.7); Eosinophils % (A) 1 %; HCT 31.4 % (39.0-53.0); HGB 9.5 gm/dL (13.0-17.5); Hypochromasia Marked; Lymphocytes % (A) 15 %; MCH 24.5 pg (25.0-35.0); MCHC 30.3 g/dL (31.0-37.0); Mean Platelet Volume 6.9; Microcytosis Slight; Monocytes # (A) 0.4 k/uL (0-1.0); Monocytes % (A) 7 %; Neutrophils # (A) 4.8 k/uL (1.3-7.7); Neutrophils % (A) 74 %; Platelet Count 380 k/uL (150-450); RBC 3.88 m/uL (4.30-5.90); RDW 18.9 % (11.5-15.5); WBC 6.5 k/uL (3.8-10.6)
[2023-11-18 10:20] LABS: INR 0.9 (<1.2); Partial Thromboplastin Time 23.8 sec (22.0-30.0); Prothrombin Time 10.1 sec (10.0-12.5)
--- NOTE | 2023-11-18 10:25 | XR ---
EXAMINATION TYPE: XR chest 2V DATE OF EXAM: 11/18/2023 9:46 AM CLINICAL INDICATION:Male, 58 years old with history of Chest Pain; [facility] COMPARISON: 10/04/2023 and 06/28/2023 TECHNIQUE: XR chest 2V. Frontal and lateral views of the chest.. FINDINGS: Moderate cardiomegaly with mild central congestive changes, probably superimposed on chronic pulmonar y interstitial changes, similar to the last exam. Aortic calcifications. No sizable pleural effusion or evidence of pneumothorax. No focal airspace consolidation. Probable mi ld bibasilar subsegmental atelectasis. Osseous structures are grossly unchanged. Chronic rib fracture deformities without gross acute osseou s pathology. Degenerative changes of the thoracic spine with exaggerated kyphosis. The appearance of the lower chest/upper abdomen is similar to the last exam. Likely reflects eventrat ion of the left hemidiaphragm with gas-filled bowel subjacent, and lucency on the right likely subdia phragmatic gas filled bowel as well. However, free intraperitoneal air cannot be excluded in this set ting. IMPRESSION: 1. Stable cardiopulmonary status. Cardiomegaly with mild central congestive changes. 2. Similar appearance of the lower chest/upper abdomen compared to prior. If of clinical concern, CT may be obtained for further evaluation.
[2023-11-18 10:29] LABS: ALT 18 U/L (4-49); AST 34 U/L (17-59); African American GFR (CKD) >90 (>60 ml/min/1.73 sqM); Albumin 3.8 g/dL (3.5-5.0); Alkaline Phosphatase 80 U/L (38-126); Anion Gap 16 mmol/L; Blood Urea Nitrogen 17 mg/dL (9-20); Calcium 8.6 mg/dL (8.4-10.2); Carbon Dioxide 13 mmol/L (22-30); Chloride 105 mmol/L (98-107); Glucose 103 mg/dL (74-99); Magnesium 1.6 mg/dL (1.6-2.3); Non-African American GFR(CKD) >90 (>60 ml/min/1.73 sqM); Sodium 134 mmol/L (137-145); Total Bilirubin 0.8 mg/dL (0.2-1.3); Total Protein 6.7 g/dL (6.3-8.2)
[2023-11-18 10:53] LABS: Potassium 4.3 mmol/L (3.5-5.1)
[2023-11-18] MEDS: NITROGLYCERIN OINT 1 INCH/GM PACKET TOPICAL STA (11:25)
[2023-11-18] MEDS ORDERED: ACETAMINOPHEN TAB 325 MG TAB PO PRN (12:24)
[2023-11-18] MEDS ORDERED: NALOXONE 0.4 MG/ML 1 ML VIAL IV PRN (12:24)
[2023-11-18] MEDS: MULTIVITAMINS, THERA 1 EACH TAB PO SCH (14:54)
[2023-11-18] MEDS: MAGNESIUM SULFATE-D5W PMX 1 GM in DEXTROSE/WATER 1 100ML.BAG IVPB SCH (14:54)
[2023-11-18] MEDS ORDERED: LORazepam 2 MG/ML INJ IV PRN ×3 (16:51)
[2023-11-18] MEDS ORDERED: LORazepam 1 MG TAB PO PRN ×2 (16:51)
[2023-11-18] MEDS ORDERED: LORazepam 0.5 MG TAB PO PRN (16:51)
--- NOTE | 2023-11-18 17:13 | P.HPIM ---
History of Present Illness H&P Date: 11/18/23 History of Presenting Illness: Patient is a 58-year-old male with a past medical history of CAD status post stenting x 3 with most recent stent being placed June 2023 currently on dual antiplatelet therapy with aspirin and Brilinta, ischemic cardiomyopathy with recently known EF of 20 to 25%, paroxysmal atrial fibrillation on anticoagulation with Eliquis, hypertension, hyperlipidemia, bipolar disorder, anxiety and depression, PTSD, nicotine dependence, and alcohol abuse with binge drinking behaviors. He presented to the emergency department with a chief complaint of chest pain. Patient reports binge drinking over the past few days and reports drinking a pint of vodka yesterday evening. He states this morning while showering around 7 AM he developed sudden onset pressure to his midsternal chest accompanied by shortness of breath, dizziness, nausea, and severe diaphoresis. Patient currently reports that his chest pain has improved from 8 out of 10 down to 3 out of 10 since placement of nitroglycerin paste in the emergency department. As stated above patient reports she recently binge drinking and continued nicotine dependence, but denies having any drug use, recent infections or exposure to known ill contacts, palpitations, cough or congestion, episodes of vomiting, or experiencing any numbness/tingling/weakness/swelling in his extremities. Patient reports that his right of way supervisor is Dr. Dunlap and that he has taken all of his medications directly as prescribed without missing any doses. Upon arrival to the emergency department, patient underwent evaluation. Vital signs upon arrival show blood pressure 102/73, heart rate 111, respiratory rate 18, temp 98.5 F, and SpO2 of 97% on room air. EKG was completed showing sinus tachycardia at 113 bpm. Chest x-ray completed showing cardiomegaly with mild central congestive changes. Labs completed and reviewed. CBC showing stable normocytic anemia with hemoglobin of 9.5. Coagulation profile normal findings. BMP showing hypokalemia with sodium 134 and hypocarbia with bicarb of 13 and elevated anion gap of 16. Blood glucose was 103. Magnesium low at 1.6. Troponin 0.031 (this appears to be at baseline with most recent troponin drawn 10/04/2023 resulting at 0.034). Patient given aspirin 324 mg p.o. x 1 dose and Nitropaste in the emergency department and admitted under our services with consultation to cardiology. Review of systems: Pertinent positives and negatives as discussed in HPI, a complete review of systems was performed and all other systems are negative. Physical exam: Vital signs reviewed and stable. General: Nontoxic, no distress and appears stated age. Derm: Skin warm and dry, normal coloration for ethnicity. Head: Atraumatic, normocephalic and symmetric. Eyes: EOMs intact, no lid lag, and anicteric sclera Mouth: no lip lesions, mucus membranes moist Cardiovascular: regular rate and rhythm with normal S1S2, systolic murmur, positive posterior tibial pulses bilaterally, and cap refill < 2 seconds. Lungs: Respirations even, regular, and unlabored on room air. Lungs CTA bilaterally, no rhonchi, no rales, no wheezing, and no accessory muscle usage. Abdominal: soft, nontender to palpation, no guarding, no appreciable organomegaly Ext: ROM intact. No gross muscle atrophy, no edema, no contractures Neuro: Speech clear, face symmetrical and CN II-XII grossly intact with no noted focal neuro deficits Psych: Alert and oriented to person, place, time, and situation. Appropriate and pleasant affect. Assessment and Plan of Care: Chest pain, rule out acute coronary event Ischemic cardiomyopathy with EF of 20 to 25% Paroxysmal atrial fibrillation CAD status post stenting x 3 -Cardiology consulted, appreciate recommendations -Telemetry monitoring -Trend troponins -Cardiac diet, NPO at midnight -Continue cardiac medication regimen with aspirin 81 mg daily, atorvastatin 80 mg nightly, amiodarone 200 mg daily, Eliquis 5 mg twice daily, isosorbide mononitrate 30 mg daily, metoprolol 25 mg twice daily, Brilinta 90 mg twice daily and Ranexa 500 mg twice daily -Echocardiogram completed 10/03/2026 and reviewed reporting severely impaired EF of 20 to 25% with mid ventricle and apical hypokinesia and reports of an apical thrombus noticed using contrast to study Alcohol abuse with reports of binge drinking behaviors -Order placed for monitoring of CIWA scores and patient to be medicated with Ativan 0.5 mg every 4 hours as needed for CIWA score of 4-5, Ativan 1 mg every 4 hours for CIWA score of 6-7, Ativan 2 mg every 3 hours CIWA score of 8-9, and Ativan 2 mg every 2 hours forr CIWA score of 10 or greater. -Thiamine 100 mg daily, Multivitamin daily, and Folate 1 mg daily -Seizure, fall, aspiration, and elopement precautions in place. -Urine drug screen -Continued close monitoring of electrolytes and replace as needed. -Telemetry monitoring. Bipolar disorder Anxiety and depression PTSD -Continue daily medication regimen with Cymbalta 60 mg daily. Nicotine dependence Order placed for nicotine patch 21 mg daily and strongly advised patient on smoking cessation. Data and imaging reviewed: As stated above in HPI CODE STATUS: Full code DVT prophylaxis: Eliquis Anticipated discharge date: Clinical course to determine Anticipated discharge place: Clinical course to determine Patient was seen independently by Nurse Practitioner. This document was prepared using [employer] dictation software. Please allow for errors in breeder hen service technician while rare they do occur. Rony Howell NP rendered care for this patient independently, reviewed the findings and plan as documented in the note above. I did not physically speak with or examine the patient on this date. Past Medical History Past Medical History: COPD, GERD/Reflux, GI Bleed, Hypertension, Myocardial Infarction ([place]), Pneumonia, Skin Disorder Additional Past Medical History / Comment(s): ETOH abuse with delirium tremors, lower GI bleed, IBS, chronic iron deficiency anemia, hypomagnesemia, hyperbilirubinemia, anorexia, vertigo, nephrolithiasis-passed stone on his own, chronic low back/cervical pain, DDD, kyphosis, scoliosis, coccyx pressure ulcer pt states is mostly healed. Dry and itchy skin back in high school. 2 heart attacks, one in December (2020) second in February (2020). Last Myocardial Infarction Date:: February 2021 History of Any Multi-Drug Resistant Organisms: None Reported Past Surgical History: Bariatric Surgery, Heart Catheterization With Stent, Hernia Repair, Orthopedic Surgery, Tonsillectomy Additional Past Surgical History / Comment(s): Right inner Forearm-metal plate, gastric bypass, incisional hernia surgery x2, EGDs, colonoscopies. 2 Stents placed in December 2020; bilateral knee surgeries Past Anesthesia/Blood Transfusion Reactions: No Reported Reaction Date of Last Stent Placement:: 2020 Past Psychological History: Anxiety, Bipolar, Depression, PTSD Smoking Status: Current every day smoker Past Alcohol Use History: Abuse, Daily Past Drug Use History: None Reported - Past Family History Mother History Unknown: Yes Family Medical History: Hypertension Additional Family Medical History / Comment(s): Lupus. Mother is living. Father History Unknown: Yes Family Medical History: Liver Disease Additional Family Medical History / Comment(s): ETOH abuse. of cirrhosis complications. Medications and Allergies Home Medications Medication Instructions Recorded Confirmed Type Atorvastatin [Lipitor] 80 mg PO HS 03/30/21 11/18/23 History Aspirin 81 mg PO DAILY tab 11/17/22 11/18/23 Rx Omeprazole [PriLOSEC] 20 mg PO DAILY 12/06/22 11/18/23 History Metoprolol Tartrate [Lopressor] 25 mg PO BID #60 tab 12/08/22 11/18/23 Rx Amiodarone [Cordarone] 200 mg PO DAILY 06/28/23 11/18/23 History DULoxetine HCL [Cymbalta] 60 mg PO DAILY 06/28/23 11/18/23 History Multivit with Calcium,Iron,Min 1 tab PO DAILY 06/28/23 11/18/23 History [Women's Multivitamin] Apixaban [Eliquis] 5 mg PO BID 10/04/23 11/18/23 History Ticagrelor [Brilinta] 90 mg PO BID 10/04/23 11/18/23 History Folic Acid 1 mg PO DAILY tab 10/06/23 11/18/23 Rx Isosorbide Mononitrate ER [Imdur] 30 mg PO DAILY 30 Days #30 tab 10/06/23 11/18/23 Rx Ranolazine [Ranexa] 500 mg PO Q12HR 30 Days #60 tab 10/06/23 11/18/23 Rx Thiamine [Vitamin B-1] 100 mg PO DAILY tab 10/06/23 11/18/23 Rx Allergies Allergy/AdvReac Type Severity Reaction Status Date / Time Iodinated Contrast Media Allergy Itching-see Verified 11/18/23 11:41 comment Physical Exam Vitals: Vital Signs Temp Pulse Pulse Resp BP Pulse Ox 11/18/23 09:39 104 H 11/18/23 09:21 98.5 F 111 H 18 102/73 97 Intake and Output 11/17/23 11/18/23 11/18/23 22:59 06:59 14:59 Other: Weight 81.647 kg Results CBC & Chem 7: 11/18/23 09:39 11/18/23 09:39 Labs: Abnormal Lab Results - Last 24 Hours (Table) 11/18/23 11/18/23 Range/Units 09:39 09:39 RBC 3.88 L (4.30-5.90) m/uL Hgb 9.5 L (13.0-17.5) gm/dL Hct 31.4 L (39.0-53.0) % MCH 24.5 L (25.0-35.0) pg MCHC 30.3 L (31.0-37.0) g/dL RDW 18.9 H (11.5-15.5) % Sodium 134 L (137-145) mmol/L Carbon Dioxide 13 L (22-30) mmol/L Creatinine 0.65 L (0.66-1.25) mg/dL Glucose 103 H (74-99) mg/dL
[2023-11-18] MEDS: NITROGLYCERIN OINT 1 INCH/GM PACKET TOPICAL SCH (17:54)
[2023-11-18] MEDS: NICOTINE 21MG/24HR PATCH TRANSDERM SCH (17:55)
[2023-11-18 19:13] LABS: Amphetamine Screen,Urine Not Detected (NotDetected); Barbiturate Screen,Urine Not Detected (NotDetected); Benzodiazepines Screen,Urine Not Detected (NotDetected); Cocaine Screen,Urine Not Detected (NotDetected); Methadone Screen, Urine Not Detected (NotDetected); Opiate Screen,Urine Not Detected (NotDetected); Oxycodone Screen, Urine Not Detected (NotDetected); Phencyclidine Screen,Urine Not Detected (NotDetected); Tricyclic Antidepressant,Urine Not Detected (NotDetected); Urn Cannabinoid Scrn Not Detected (NotDetected)
[2023-11-18] MEDS: TICAGRELOR 90 MG TAB PO SCH (20:04)
[2023-11-18] MEDS: APIXABAN 5 MG TAB PO SCH (20:04)
[2023-11-18] MEDS: METOPROLOL TARTRATE 25 MG TAB PO SCH (20:36)
[2023-11-18] MEDS: ATORVASTATIN 80 MG TAB PO SCH (20:36)
[2023-11-18] MEDS: HEPARIN SOD,PORK IN 0.45% NACL 25,000 UNIT in 0.45% NACL 1 250ML.BAG IV SCH (20:37)
[2023-11-18] MEDS: RANOLAZINE 500 MG TAB.ER.12H PO SCH (20:38)
[2023-11-19 03:40] LABS: Anisocytosis Slight; HCT 32.1 % (39.0-53.0); HGB 9.8 gm/dL (13.0-17.5); Hypochromasia Marked; MCH 24.7 pg (25.0-35.0); MCHC 30.4 g/dL (31.0-37.0); MCV 81.1 fL (80.0-100.0); Microcytosis Slight; Platelet Count 336 k/uL (150-450); RBC 3.96 m/uL (4.30-5.90); WBC 6.3 k/uL (3.8-10.6)
[2023-11-19 03:49] LABS: ALT 23 U/L (4-49); AST 48 U/L (17-59); African American GFR (CKD) >90 (>60 ml/min/1.73 sqM); Albumin 3.8 g/dL (3.5-5.0); Alkaline Phosphatase 85 U/L (38-126); Anion Gap 6 mmol/L; Blood Urea Nitrogen 21 mg/dL (9-20); Carbon Dioxide 24 mmol/L (22-30); Chloride 105 mmol/L (98-107); Glucose 95 mg/dL (74-99); Magnesium 2.1 mg/dL (1.6-2.3); Non-African American GFR(CKD) >90 (>60 ml/min/1.73 sqM); Potassium 4.3 mmol/L (3.5-5.1); Sodium 135 mmol/L (137-145); Total Bilirubin 1.4 mg/dL (0.2-1.3); Total Protein 6.6 g/dL (6.3-8.2)
[2023-11-19] MEDS: HEPARIN SODIUM 1,000 UN/ML (10ML VL) IV PRN (04:08)
[2023-11-19] MEDS: PANTOPRAZOLE 40 MG TABLET PO SCH (08:20)
[2023-11-19] MEDS: DULoxetine HCL 60 MG CAPSULE.DR PO SCH (08:20)
[2023-11-19] MEDS: ASPIRIN 81 MG PO SCH (08:20)
[2023-11-19] MEDS: AMIODARONE 200 MG TAB PO SCH (08:21)
[2023-11-19] MEDS: ISOSORBIDE MONONITRATE ER 30 MG TAB.ER.24H PO SCH (08:21)
[2023-11-19] MEDS: FOLIC ACID 1 MG TAB PO SCH (08:21)
[2023-11-19] MEDS: THIAMINE 100 MG TAB PO SCH (08:34)
[2023-11-19] MEDS ORDERED: ASPIRIN 325 MG TAB PO SCH (09:00)
[2023-11-19] MEDS ORDERED: ALPRAZolam 0.5 MG TAB PO PRN (10:05)
[2023-11-19] MEDS ORDERED: ALPRAZolam 0.25 MG TAB PO PRN (10:05)
[2023-11-19] MEDS ORDERED: NITROGLYCERIN SL TABS 0.4 MG TAB SUBLINGUAL PRN (10:05)
[2023-11-19] MEDS: ATORVASTATIN 80 MG TAB PO STA (10:39)
[2023-11-19] MEDS: ASPIRIN 325 MG TAB PO STA (10:41)
[2023-11-19] MEDS: SODIUM CHLORIDE 0.9% 900 ML IV ONE (11:17)
[2023-11-19] MEDS ORDERED: methylPREDNISolone SOD SUCCI 125 MG/2 ML VIAL ONE (11:29)
[2023-11-19] MEDS ORDERED: fentaNYL (PF) 50 MCG/ML 2 ML AMP ONE (11:29)
[2023-11-19] MEDS ORDERED: diphenhydrAMINE 50 MG/ML 1 ML VIAL ONE (11:29)
[2023-11-19] MEDS: diphenhydrAMINE 50 MG/ML 1 ML VIAL IVP ONE (11:34)
[2023-11-19] MEDS: methylPREDNISolone SOD SUCCI 125 MG/2 ML VIAL IVP ONE (11:34)
[2023-11-19] MEDS: fentaNYL (PF) 50 MCG/1 ML VIAL IVP ONE (11:49)
[2023-11-19] MEDS ORDERED: HEPARIN SODIUM 1,000 UN/ML (10ML VL) ONE (11:49)
[2023-11-19] MEDS: LIDOCAINE 1% INJ 10MG/ML (20 ML MDV) SQ ONE (11:52)
[2023-11-19] MEDS: VERAPAMIL SYRINGE (5 MG/10 ML) INTRAARTER ONE (11:54)
[2023-11-19] MEDS: MIDAZOLAM 2 MG/2 ML VIAL IVP ONE (11:54)
[2023-11-19] MEDS: HEPARIN SODIUM 1,000 UN/ML (10ML VL) IVP ONE (12:02)
--- NOTE | 2023-11-19 12:10 | P.CRDCN ---
History of Present Illness History of present illness: HISTORY OF PRESENT ILLNESS: This is a 58-year-old male with a past medical history significant for hypertension, hyperlipidemia, coronary artery disease, nicotine dependence, alcohol abuse, paroxysmal atrial fibrillation, and bipolar disorder. Patient follows in the office with Dr. Chaudhari but has not been seen since April 2023. We have been asked to see the patient in consultation for chest pain. Patient examined at the bedside in the emergency room. Patient states yesterday morning he took his medications and then decided to get into the shower. He states he developed chest pain while taking a shower along with shortness of breath, nausea, and diaphoresis. He states the pain felt similar to previous times when he required stenting so he called 911. Patient states he has been compliant with his medications regularly. He states he has nitro at home but could not find it so he did not take any while he was having his chest pain. Patient also reports binge drinking over the weekend. He is a current cigarette smoker. He does report shortness of breath with exertion only which he states is his baseline. It is noted that the patient previously had stenting performed at [facility]. His physician at [facility] did recommend a cardiac MRI however the patient states he is not followed up on this. He reports that he has transportation issues and has difficulty making it to his follow-up appointments. DIAGNOSTICS: - EKG reveals sinus tachycardia with no signs of acute ischemia. - Chest xray stable cardiopulmonary status. Cardiomegaly with mild central congestive changes.. - Laboratory data: WBC 6.3. Hemoglobin 9.8. Platelet count 336. Sodium 135. Potassium 4.3. BUN 21. Creatinine 0.69. Troponin 0.031. 0.045. 0.046. - Current home cardiac medications include amiodarone 200 mg daily, Eliquis 5 mg twice a day, aspirin 81 mg daily, Lipitor 80 mg at night, Imdur 30 mg daily, metoprolol tartrate 25 mg twice a day, Ranexa 500 mg twice a day, and Brilinta 90 mg twice a day. - Most recent echocardiogram obtained in September 2023 revealed ejection fraction 20 to 25%, apical thrombus, mild pulmonary hypertension, moderate MR -Patient underwent Lexiscan on 10/05/2023 revealing markedly abnormal exam. There is global hypokinesis with estimated LVEF of 35% and large areas of fixed perfusion defect including the anterior septal wall and inferior wall. Correlate for large areas of old infarct/ischemic cardiomyopathy. Given the large amount of GI activity just adjacent, assessment for focal reversibility is very limited. - Cardiac catheterization history: 06/29/2023 revealing severe calcifications of the coronary arteries, patent stent in the proximal mid LAD with chronic total occlusion distally, chronic total occlusion of the proximal RCA with [id number] collaterals, total occlusion of the proximal left circumflex with slow flow distally. Elevated LVEDP. The patient was transferred to [facility] and underwent stenting of the proximal to mid circumflex and mid second obtuse marginal branch REVIEW OF SYSTEMS: At the time of my exam: CONSTITUTIONAL: Denies fever or chills. HEENT: Denies blurred vision, vision changes, or eye pain. Denies hemoptysis CARDIOVASCULAR: Denies chest pain. Denies orthopnea. Denies PND. Denies palpitations RESPIRATORY: Denies shortness of breath. GASTROINTESTINAL: Denies abdominal pain. Denies nausea or vomiting. HEMATOLOGIC: Denies bleeding disorders. GENITOURINARY: Denies any blood in urine. SKIN: Denies pruitis. Denies rash. PHYSICAL EXAM: VITAL SIGNS: Reviewed. GENERAL: Well-developed in no acute distress. HEENT: Head is normocephalic. Pupils are equal, round. Sclerae anicteric. Mucous membranes of the mouth are moist. Neck supple. No JVD or thyromegaly LUNGS: Respirations even and unlabored. Lungs essentially clear to auscultation bilaterally. HEART: Regular rate and rhythm. S1 and S2 heard. ABDOMEN: Soft. Nondistended. Nontender. EXTREMITIES: Normal range of motion. No clubbing or cyanosis. Peripheral pulses intact. No lower extremity edema NEUROLOGIC: Awake and alert. Oriented x 3. ASSESSMENT: Non-STEMI Coronary artery disease with previous stenting of the LAD and more recently stenting of the proximal to mid circumflex and mid second obtuse marginal branch performed at [facility] 06/2023 Chronically occluded RCA Paroxysmal atrial fibrillation, on Eliquis outpatient Ischemic cardiomyopathy History of alcohol abuse with binge drinking over the weekend Recent apical thrombus noted on echo Hypertension Hyperlipidemia Bipolar disorder Anxiety Depression PTSD Nicotine dependence PLAN: Continue IV heparin. Eliquis currently on hold. Continue home cardiac medications Patient to undergo cardiac catheterization today with Dr. Dunlap Abstinence from alcohol recommended Smoking cessation encouraged. Patient prescribed nicotine patch while inpatient. Recommend referral to [place] quit line upon discharge. Further recommendations pending patient course Nurse practitioner note has been reviewed by physician. Signing provider agrees with the documented findings, assessment, and plan of care documented by REPORT CLERK as a scribe. Past Medical History Past Medical History: COPD, GERD/Reflux, GI Bleed, Hypertension, Myocardial Infarction ([place]), Pneumonia, Skin Disorder Additional Past Medical History / Comment(s): ETOH abuse with delirium tremors, lower GI bleed, IBS, chronic iron deficiency anemia, hypomagnesemia, hyperbilirubinemia, anorexia, vertigo, nephrolithiasis-passed stone on his own, chronic low back/cervical pain, DDD, kyphosis, scoliosis, coccyx pressure ulcer pt states is mostly healed. Dry and itchy skin back in high school. 2 heart attacks, one in December (2020) second in February (2020). Last Myocardial Infarction Date:: February 2021 History of Any Multi-Drug Resistant Organisms: None Reported Past Surgical History: Bariatric Surgery, Heart Catheterization With Stent, Hernia Repair, Orthopedic Surgery, Tonsillectomy Additional Past Surgical History / Comment(s): Right inner Forearm-metal plate, gastric bypass, incisional hernia surgery x2, EGDs, colonoscopies. 2 Stents placed in December 2020; bilateral knee surgeries Past Anesthesia/Blood Transfusion Reactions: No Reported Reaction Date of Last Stent Placement:: 2020 Past Psychological History: Anxiety, Bipolar, Depression, PTSD Smoking Status: Current every day smoker Past Alcohol Use History: Abuse, Daily Past Drug Use History: None Reported - Past Family History Mother History Unknown: Yes Family Medical History: Hypertension Additional Family Medical History / Comment(s): Lupus. Mother is living. Father History Unknown: Yes Family Medical History: Liver Disease Additional Family Medical History / Comment(s): ETOH abuse. of cirrhosis complications. Medications and Allergies Home Medications Medication Instructions Recorded Confirmed Type Atorvastatin [Lipitor] 80 mg PO HS 03/30/21 11/18/23 History Aspirin 81 mg PO DAILY tab 11/17/22 11/18/23 Rx Omeprazole [PriLOSEC] 20 mg PO DAILY 12/06/22 11/18/23 History Metoprolol Tartrate [Lopressor] 25 mg PO BID #60 tab 12/08/22 11/18/23 Rx Amiodarone [Cordarone] 200 mg PO DAILY 06/28/23 11/18/23 History DULoxetine HCL [Cymbalta] 60 mg PO DAILY 06/28/23 11/18/23 History Multivit with Calcium,Iron,Min 1 tab PO DAILY 06/28/23 11/18/23 History [Women's Multivitamin] Apixaban [Eliquis] 5 mg PO BID 10/04/23 11/18/23 History Ticagrelor [Brilinta] 90 mg PO BID 10/04/23 11/18/23 History Folic Acid 1 mg PO DAILY tab 10/06/23 11/18/23 Rx Isosorbide Mononitrate ER [Imdur] 30 mg PO DAILY 30 Days #30 tab 10/06/23 0 11/18/23 Rx Ranolazine [Ranexa] 500 mg PO Q12HR 30 Days #60 tab 10/06/23 11/18/23 Rx Thiamine [Vitamin B-1] 100 mg PO DAILY tab 10/06/23 11/18/23 Rx Allergies Allergy/AdvReac Type Severity Reaction Status Date / Time Iodinated Contrast Media Allergy Itching-see Verified 11/18/23 11:41 comment Physical Exam Vitals: Vital Signs Temp Pulse Pulse Resp BP Pulse Ox 11/19/23 08:25 76 14 112/79 97 11/19/23 06:12 76 17 120/77 99 11/19/23 04:11 98.2 F 81 17 105/76 98 11/19/23 03:11 93 16 109/73 95 11/19/23 02:36 76 17 105/78 11/19/23 00:33 73 18 111/73 11/18/23 22:30 71 12 104/79 96 11/18/23 21:00 82 22 119/71 97 11/18/23 19:30 98.4 F 82 15 118/74 97 11/18/23 19:00 87 18 121/79 98 11/18/23 14:30 78 18 125/80 98 11/18/23 13:30 82 18 123/75 98 11/18/23 12:30 86 18 121/76 98 11/18/23 11:30 86 18 118/68 98 11/18/23 10:30 84 18 120/76 98 11/18/23 09:39 104 H 11/18/23 09:30 80 18 117/79 98 11/18/23 09:21 98.5 F 111 H 18 102/73 97 Intake and Output 11/18/23 11/19/23 11/19/23 22:59 06:59 14:59 Intake Total 73.812 Balance 73.812 Intake: Intake, IV Titration 73.812 Amount Heparin Sod,Pork in 0.45% 73.812 NaCl 25,000 unit In 0.45 % NaCl 1 250ml.bag @ 12 UNITS/KG/HR 9.798 mls/hr IV .Q24H [facility] Rx#: [id number] Results 11/19/23 02:42 11/19/23 02:42 Cardiac Enzymes 11/18/23 11/18/23 11/18/23 Range/Units 09:39 09:39 14:01 AST 34 (17-59) U/L Troponin I 0.031 0.045 H* (0.000-0.034) ng/mL 11/18/23 11/19/23 Range/Units 16:30 02:42 AST 48 (17-59) U/L Troponin I 0.046 H* (0.000-0.034) ng/mL Coagulation 11/18/23 11/19/23 Range/Units 09:39 02:42 PT 10.1 (10.0-12.5) sec APTT 23.8 30.5 H (22.0-30.0) sec CBC 11/18/23 11/19/23 Range/Units 09:39 02:42 WBC 6.5 6.3 (3.8-10.6) k/uL RBC 3.88 L 3.96 L (4.30-5.90) m/uL Hgb 9.5 L 9.8 L (13.0-17.5) gm/dL Hct 31.4 L 32.1 L (39.0-53.0) % Plt Count 380 336 (150-450) k/uL Comprehensive Metabolic Panel 11/18/23 11/19/23 Range/Units 09:39 02:42 Sodium 134 L 135 L (137-145) mmol/L Potassium 4.3 4.3 (3.5-5.1) mmol/L Chloride 105 105 (98-107) mmol/L Carbon Dioxide 13 L 24 (22-30) mmol/L BUN 17 21 H (9-20) mg/dL Creatinine 0.65 L 0.69 (0.66-1.25) mg/dL Glucose 103 H 95 (74-99) mg/dL Calcium 8.6 9.0 (8.4-10.2) mg/dL AST 34 48 (17-59) U/L ALT 18 23 (4-49) U/L Alkaline Phosphatase 80 85 (38-126) U/L Total Protein 6.7 6.6 (6.3-8.2) g/dL Albumin 3.8 3.8 (3.5-5.0) g/dL Current Medications Generic Name Dose Route Start Last Admin Trade Name Freq PRN Reason Stop Dose Admin Acetaminophen 650 mg 11/18/23 12:24 Acetaminophen Tab 325 Mg Tab PO Q6HR PRN Mild Pain or Fever > 100.5 Amiodarone HCl 200 mg 11/19/23 09:00 11/19/23 08:21 Amiodarone 200 Mg Tab PO 200 mg DAILY ROLA Administration Aspirin 81 mg 11/19/23 09:00 11/19/23 08:20 Aspirin 81 Mg PO 81 mg DAILY ROLA Administration Atorvastatin Calcium 80 mg 11/18/23 21:00 11/18/23 20:36 Atorvastatin 80 Mg Tab PO 80 mg HS ROLA Administration Duloxetine HCl 60 mg 11/19/23 09:00 11/19/23 08:20 Duloxetine Hcl 60 Mg Capsule.Dr PO 60 mg DAILY ROLA Administration Folic Acid 1 mg 11/19/23 09:00 11/19/23 08:21 Folic Acid 1 Mg Tab PO 1 mg DAILY ROLA Administration Heparin Sodium (Porcine) 0 unit 11/18/23 20:06 11/19/23 04:08 Heparin Sodium 1,000 Un/Ml (10ml Vl) IV 4,082.35 unit Q6HR PRN Administration Low PTT Protocol Heparin Sodium/Sodium Chloride 250 mls @ 9.798 mls/hr 11/18/23 20:15 11/19/23 04:09 25,000 unit/ Sodium Chloride IV 15 units/kg/hr .Q24H ROLA 12.247 mls/hr Titration Protocol 12 UNITS/KG/HR Isosorbide Mononitrate 30 mg 11/19/23 09:00 11/19/23 08:21 Isosorbide Mononitrate Er 30 Mg Tab.Er.24h PO 30 mg DAILY ROLA Administration Lorazepam 1 mg 11/18/23 16:51 Lorazepam 1 Mg Tab PO Q1HR PRN Alcohol Withdrawal Lorazepam 0.5 mg 11/18/23 16:51 Lorazepam 0.5 Mg Tab PO Q4HR PRN Ciwa 4 To 5 Lorazepam 1 mg 11/18/23 16:51 Lorazepam 1 Mg Tab PO Q4HR PRN [place] 6 To 7 Lorazepam 1 mg 11/18/23 16:51 Lorazepam 2 Mg/Ml Inj IV Q1HR PRN CIWA 10 to 15 Lorazepam 1 mg 11/18/23 16:51 Lorazepam 2 Mg/Ml Inj IV Q2HR PRN CIWA 8 or 9 Lorazepam 2 mg 11/18/23 16:51 Lorazepam 2 Mg/Ml Inj IV 11/20/23 16:52 Q10M PRN CIWA 16 or higher Metoprolol Tartrate 25 mg 11/18/23 21:00 11/19/23 08:20 Metoprolol Tartrate 25 Mg Tab PO 25 mg BID ROLA Administration Multivitamins 1 each 11/18/23 14:00 11/19/23 08:34 Multivitamins, Thera 1 Each Tab PO 1 each DAILY ROLA Administration Naloxone HCl 0.2 mg 11/18/23 12:24 Naloxone 0.4 Mg/Ml 1 Ml Vial IV Q2M PRN Opioid Reversal Nicotine 1 patch 11/18/23 17:00 11/19/23 08:22 Nicotine 21mg/24hr Patch TRANSDERM Not Given DAILY ROLA Nitroglycerin 1 inch 11/18/23 18:00 11/19/23 06:12 Nitroglycerin Oint 1 Inch/Gm Packet TOPICAL 1 inch Q6HR ROLA Administration Pantoprazole Sodium 40 mg 11/19/23 07:30 11/19/23 08:20 Pantoprazole 40 Mg Tablet PO 40 mg [id number] ROLA Administration Ranolazine 500 mg 11/18/23 21:00 11/19/23 08:21 Ranolazine 500 Mg Tab.Er.12h PO 500 mg Q12HR ROLA Administration Thiamine HCl 100 mg 11/19/23 09:00 11/19/23 08:34 Thiamine 100 Mg Tab PO 100 mg DAILY ROLA Administration Ticagrelor 90 mg 11/18/23 21:00 11/19/23 08:34 Ticagrelor 90 Mg Tab PO 90 mg BID ROLA Administration Intake and Output 11/18/23 11/19/23 11/19/23 22:59 06:59 14:59 Intake Total 73.812 Balance 73.812 Intake: Intake, IV Titration 73.812 Amount Heparin Sod,Pork in 0.45% 73.812 NaCl 25,000 unit In 0.45 % NaCl 1 250ml.bag @ 12 UNITS/KG/HR 9.798 mls/hr IV .Q24H [facility] Rx#: [id number] 11/19/23 02:42 11/19/23 02:42
[2023-11-19] MEDS: IOPAMIDOL-370 100ML BTL INJ ONE (12:16)
[2023-11-19] MEDS ORDERED: RX INFO: IV CONTRAST WAS GIVEN 1 EACH MISC MISCELLANE PRN (12:25)
--- NOTE | 2023-11-19 12:33 | P.CARDCATH ---
Date of Procedure: 11/19/23 Description of Procedure: Cardiac Catheterization: The patient is a 58-year-old male with a known history of CAD, status post stenting of the LAD and left circumflex with chronically occluded RCA and mid LAD with severely impaired systolic function, history of chronic tobacco use, hyperlipidemia who presented with symptoms of chest discomfort with mild troponin elevation. Recommendations were made regarding cardiac catheterization, the risks and the complications were discussed with the patient who is in full understanding and agreement. Procedure Description: Patient was brought to chemical laboratory chief in fasting semi-sedated state after receiving Fentanyl and Benadryl achieiving moderate conscious sedated state. Using Xylocaine Anesthesia and modified Seldinger technique, a 6-Vietnamese sheath was introduced in the left radial artery . Subsequently, selective coronary angiography was performed using a 5-Vietnamese 4 bend Brooke catheter. Multiple views of the coronary artery including hemiaxial views were obtained. The 6 Vietnamese pigtail catheter was used to cross the aortic valve and LVEDP was calculated. Following that, catheter and sheath were removed. Hemostasis was obtained with deployment of vascular band . There was no immediate complication. Patient was returned to room in stable condition. Of note, the patient received a total of 4000 units of intravenous heparin as well as intra-arterial verapamil. Findings: Fluoroscopy: Severe calcification of all the coronary arteries was noted Left main: This is a large size vessel, bifurcating into LAD and left circumflex, left main has no high-grade stenosis LAD: This is a large size vessel, giving rise to 2 diagonal branch in the midsegment. The proximal LAD stented segment is patent with mild restenosis of 20%. The mid to distal LAD is chronically occluded with late filling of the apical segment Left circumflex: This is a large nondominant vessel, giving rise to 2 large obtuse marginal branch. The stented segment in the proximal left circumflex is patent with no evidence of significant in-stent restenosis with 20% plaque RCA: This vessel is chronic occluded proximally with no antegrade flow. There is retrograde collaterals from the left coronary system through the septal wine steward/stewardess to the PDA and the PLV Left Ventriculogram: Not performed Hemodynamics: There was no gradient across aortic valve, LVEDP was 10-14 mmHg Conclusion: 1. Severely calcified coronary arteries 2. Patent stent in the proximal LAD and left circumflex 3. Chronically occluded proximal RCA and mid to distal LAD 4. Normal LVEDP Recommendations: I have recommended to continue medical therapy, I see no evidence of significant progression of disease. I have discussed with him the importance of smoking cessation and compliance with his medications. The findings and the recommendations were discussed with the patient and he was in full understanding and agreement. Duration of sedation is 27 minutes.
--- NOTE | 2023-11-19 13:31 | P.PN ---
Subjective Progress Note Date: 11/19/23 Hospital course:: Patient is a 58-year-old male with a past medical history of CAD status post stenting x 3 with most recent stent being placed June 2023 currently on dual antiplatelet therapy with aspirin and Brilinta, ischemic cardiomyopathy with recently known EF of 20 to 25%, paroxysmal atrial fibrillation on anticoagulation with Eliquis, hypertension, hyperlipidemia, bipolar disorder, anxiety and depression, PTSD, nicotine dependence, and alcohol abuse with binge drinking behaviors. He presented to the emergency department with a chief complaint of chest pain. Patient reports binge drinking over the past few days and reports drinking a pint of vodka yesterday evening. He states this morning while showering around 7 AM he developed sudden onset pressure to his midsternal chest accompanied by shortness of breath, dizziness, nausea, and severe diaphoresis. Patient currently reports that his chest pain has improved from 8 out of 10 down to 3 out of 10 since placement of nitroglycerin paste in the emergency department. As stated above patient reports she recently binge drinking and continued nicotine dependence, but denies having any drug use, recent infections or exposure to known ill contacts, palpitations, cough or congestion, episodes of vomiting, or experiencing any numbness/tingling/weakness/swelling in his extremities. Patient reports that his axminster rug setter is Dr. Dunlap and that he has taken all of his medications directly as prescribed without missing any doses. Upon arrival to the emergency department, patient underwent evaluation. Vital signs upon arrival show blood pressure 102/73, heart rate 111, respiratory rate 18, temp 98.5 F, and SpO2 of 97% on room air. EKG was completed showing sinus tachycardia at 113 bpm. Chest x-ray completed showing cardiomegaly with mild central congestive changes. Labs completed and reviewed. CBC showing stable normocytic anemia with hemoglobin of 9.5. Coagulation profile normal findings. BMP showing hypokalemia with sodium 134 and hypocarbia with bicarb of 13 and elevated anion gap of 16. Blood glucose was 103. Magnesium low at 1.6. Troponin 0.031 (this appears to be at baseline with most recent troponin drawn 10/04/2023 resulting at 0.034). Patient given aspirin 324 mg p.o. x 1 dose and Nitropaste in the emergency department and admitted under our services with consultation to cardiology. Opponents were trended increasing from 0.031-0.045 and 0.046. Eliquis was held and patient was started on heparin infusion per cardiology. Security Guard Supervisor planning to take patient for cardiac cath later today. Physical exam: Patient seen and fully evaluated at bedside this morning. Patient reports resolution of previously reported chest pain/discomfort. He currently denies having any complaints or needs. Patient awaiting to be taken down for cardiac catheterization later today. Vital signs reviewed and stable. General: Nontoxic, no distress and appears stated age. Derm: Skin warm and dry, normal coloration for ethnicity. Head: Atraumatic, normocephalic and symmetric. Eyes: EOMs intact, no lid lag, and anicteric sclera Mouth: no lip lesions, mucus membranes moist Cardiovascular: regular rate and rhythm with normal S1S2, systolic murmur, positive posterior tibial pulses bilaterally, and cap refill < 2 seconds. Lungs: Respirations even, regular, and unlabored on room air. Lungs CTA bilaterally, no rhonchi, no rales, no wheezing, and no accessory muscle usage. Abdominal: soft, nontender to palpation, no guarding, no appreciable organomegaly Ext: ROM intact. No gross muscle atrophy, no edema, no contractures Neuro: Speech clear, face symmetrical and CN II-XII grossly intact with no noted focal neuro deficits Psych: Alert and oriented to person, place, time, and situation. Appropriate and pleasant affect. Assessment and Plan of Care: Chest pain, rule out acute coronary event Ischemic cardiomyopathy with EF of 20 to 25% Paroxysmal atrial fibrillation CAD status post stenting x 3 -Cardiology consulted, appreciate recommendations -Telemetry monitoring -Trend troponins -Cardiac diet, NPO at midnight -Continue cardiac medication regimen with aspirin 81 mg daily, atorvastatin 80 mg nightly, amiodarone 200 mg daily, Eliquis 5 mg twice daily, isosorbide mononitrate 30 mg daily, metoprolol 25 mg twice daily, Brilinta 90 mg twice daily and Ranexa 500 mg twice daily -Echocardiogram completed 10/03/2026 and reviewed reporting severely impaired EF of 20 to 25% with mid ventricle and apical hypokinesia and reports of an apical thrombus noticed using contrast to study Alcohol abuse with reports of binge drinking behaviors -Order placed for monitoring of CIWA scores and patient to be medicated with Ativan 0.5 mg every 4 hours as needed for CIWA score of 4-5, Ativan 1 mg every 4 hours for CIWA score of 6-7, Ativan 2 mg every 3 hours CIWA score of 8-9, and Ativan 2 mg every 2 hours forr CIWA score of 10 or greater. -Thiamine 100 mg daily, Multivitamin daily, and Folate 1 mg daily -Seizure, fall, aspiration, and elopement precautions in place. -Urine drug screen -Continued close monitoring of electrolytes and replace as needed. -Telemetry monitoring. Bipolar disorder Anxiety and depression PTSD -Continue daily medication regimen with Cymbalta 60 mg daily. Nicotine dependence Order placed for nicotine patch 21 mg daily and strongly advised patient on smoking cessation. Data and imaging reviewed: Morning labs reviewed. CBC showing stable anemia with hemoglobin of 9.8. PTT was supratherapeutic at greater than 200. Heparin infusion paused at this time. BMP showing hyponatremia with sodium of 135 and elevated BUN of 21 otherwise normal findings. Liver profile showing elevated total bili of 1.4. Magnesium normal findings at 2.1. Vital signs stable. Blood pressure 112/79, heart rate 76, respiratory rate 14, temp 98.2 F, and SpO2 of 97% on room air. CODE STATUS: Full code DVT prophylaxis: Eliquis Anticipated discharge date: Clinical course to determine Anticipated discharge place: Clinical course to determine Patient was seen independently by Nurse Practitioner. This document was prepared using [employer] dictation software. Please allow for errors in aerial gunner superintendent while rare they do occur. Rony Howell NP rendered care for this patient independently, reviewed the findings and plan as documented in the note above. I did not physically speak with or examine the patient on this date. Objective - Vital Signs Vital signs: Vital Signs Temp 98.2 F 11/19/23 04:11 Pulse 76 11/19/23 06:12 Resp 17 11/19/23 06:12 BP 120/77 11/19/23 06:12 Pulse Ox 99 11/19/23 06:12 FiO2 Intake & Output 11/18/23 11/19/23 11/19/23 18:59 06:59 18:59 Intake Total 73.812 Balance 73.812 Weight 81.647 kg Intake: Intake, IV Titration 73.812 Amount Heparin Sod,Pork in 0.45% 73.812 NaCl 25,000 unit In 0.45 % NaCl 1 250ml.bag @ 12 UNITS/KG/HR 9.798 mls/hr IV .Q24H [facility] Rx#: [id number] - Labs CBC & Chem 7: 11/19/23 02:42 11/19/23 16:24 Labs: Abnormal Lab Results - Last 24 Hours (Table) 11/18/23 11/18/23 11/18/23 Range/Units 09:39 09:39 14:01 RBC 3.88 L (4.30-5.90) m/uL Hgb 9.5 L (13.0-17.5) gm/dL Hct 31.4 L (39.0-53.0) % MCH 24.5 L (25.0-35.0) pg MCHC 30.3 L (31.0-37.0) g/dL RDW 18.9 H (11.5-15.5) % APTT (22.0-30.0) sec Sodium 134 L (137-145) mmol/L Carbon Dioxide 13 L (22-30) mmol/L BUN (9-20) mg/dL Creatinine 0.65 L (0.66-1.25) mg/dL Glucose 103 H (74-99) mg/dL Total Bilirubin (0.2-1.3) mg/dL Troponin I 0.045 H* (0.000-0.034) ng/mL 11/18/23 11/19/23 11/19/23 Range/Units 16:30 02:42 02:42 RBC 3.96 L (4.30-5.90) m/uL Hgb 9.8 L (13.0-17.5) gm/dL Hct 32.1 L (39.0-53.0) % MCH 24.7 L (25.0-35.0) pg MCHC 30.4 L (31.0-37.0) g/dL RDW 19.0 H (11.5-15.5) % APTT (22.0-30.0) sec Sodium 135 L (137-145) mmol/L Carbon Dioxide (22-30) mmol/L BUN 21 H (9-20) mg/dL Creatinine (0.66-1.25) mg/dL Glucose (74-99) mg/dL Total Bilirubin 1.4 H (0.2-1.3) mg/dL Troponin I 0.046 H* (0.000-0.034) ng/mL 11/19/23 Range/Units 02:42 RBC (4.30-5.90) m/uL Hgb (13.0-17.5) gm/dL Hct (39.0-53.0) % MCH (25.0-35.0) pg MCHC (31.0-37.0) g/dL RDW (11.5-15.5) % APTT 30.5 H (22.0-30.0) sec Sodium (137-145) mmol/L Carbon Dioxide (22-30) mmol/L BUN (9-20) mg/dL Creatinine (0.66-1.25) mg/dL Glucose (74-99) mg/dL Total Bilirubin (0.2-1.3) mg/dL Troponin I (0.000-0.034) ng/mL
[2023-11-19 16:59] LABS: African American GFR (CKD) >90 (>60 ml/min/1.73 sqM); Anion Gap 7 mmol/L; Blood Urea Nitrogen 21 mg/dL (9-20); Calcium 8.6 mg/dL (8.4-10.2); Carbon Dioxide 21 mmol/L (22-30); Chloride 107 mmol/L (98-107); Glucose 140 mg/dL (74-99); Non-African American GFR(CKD) >90 (>60 ml/min/1.73 sqM); Potassium 4.6 mmol/L (3.5-5.1); Sodium 135 mmol/L (137-145)
[2023-11-19] MEDS: SODIUM CHLORIDE 0.9% 1,000 ML IV SCH (17:35)
[2023-11-19] MEDS: SODIUM CHLORIDE 0.9% 1,000 ML in EMPTY BAG 1 BAG IV SCH (17:35)
[2023-11-19] MEDS: RANOLAZINE 500 MG TAB.ER.12H PO SCH (17:36)
[2023-11-20 04:24] VITALS: TEMP 97.5
[2023-11-20] MEDS ORDERED: HEPARIN SODIUM,PORCINE (1 ML) 2,500 UNIT in SODIUM CHLORIDE 0.9% 250 ML IRRIGATION PRN (07:00)
[2023-11-20] MEDS ORDERED: HEPARIN SODIUM,PORCINE 10,000 UNIT in SODIUM CHLORIDE 0.9% 1,000 ML IRRIGATION PRN (07:00)
[2023-11-20] MEDS: APIXABAN 5 MG TAB PO SCH (08:08)
[2023-11-20] MEDS: DAPAGLIFLOZIN PROPANEDIOL 10 MG TABLET PO SCH (08:08)
[2023-11-20 08:46] VITALS: BP 107/67; PULSE 91; RESP 16
--- NOTE | 2023-11-20 11:45 | P.DS ---
Providers Date of admission: 11/18/23 12:24 Expected date of discharge: 11/20/23 Attending physician: Benita Gambino DO Consults: 11/18/23 12:24 Consult Physician Routine Consulting Provider: Jaun Chaudhari Consult Reason/Comments: cp Do you want consulting provider notified?: Yes Primary care physician: Stated None Hospital Course: Discharge Diagnosis: Elevated troponins with chest pain, acute coronary event ruled out. Halal Butcher evaluated and took patient for cardiac cath on 11/19/2023. Cardiac catheterization showing severely calcified coronary arteries with patent stent in the proximal LAD and left circumflex and chronically occluded proximal RCA and mid to distal LAD. Halal Butcher recommending maximizing medical management and strongly encouraging smoking cessation. Cardiology starting patient on Farxiga 10 mg daily and recommending patient follow-up outpatient in their office in 1 week. Patient is medically cleared for discharge at this time, prescription sent for Farxiga and patient to continue cardiac medication regimen with aspirin 81 mg daily, atorvastatin 80 mg nightly, amiodarone 200 mg daily, Eliquis 5 mg twice daily, isosorbide mononitrate 30 mg daily, metoprolol 25 mg twice daily, Brilinta 90 mg twice daily and Ranexa 500 mg twice daily. Patient to follow-up outpatient with PCP in 1 to 2 days and with application design engineer in 1 week. Ischemic cardiomyopathy with EF of 20 to 25%.. Echocardiogram completed 10/03/2026 and reviewed reporting severely impaired EF of 20 to 25% with mid ventricle and apical hypokinesia and reports of an apical thrombus noticed using contrast to study Paroxysmal atrial fibrillation. Continue amiodarone 200 mg daily, metoprolol 25 mg twice daily, and Eliquis 5 mg twice daily. CAD status post stenting x 3. Continue cardiac medication regimen with aspirin 81 mg daily, atorvastatin 80 mg nightly, amiodarone 200 mg daily, Eliquis 5 mg twice daily, isosorbide mononitrate 30 mg daily, metoprolol 25 mg twice daily, Brilinta 90 mg twice daily and Ranexa 500 mg twice daily Alcohol abuse with reports of binge drinking behaviors. Patient strongly encouraged to stop any and all alcohol use. Patient reports he follows with outpatient and has arranged transportation to and from meetings. Bipolar disorder, Anxiety and depression, and PTSD. Patient to continue to follow-up with [facility] and recommending continue daily medication regimen with Cymbalta 60 mg daily. Nicotine dependence. Strongly recommended smoking cessation. Hospital course:: Patient is a 58-year-old male with a past medical history of CAD status post stenting x 3 with most recent stent being placed June 2023 currently on dual antiplatelet therapy with aspirin and Brilinta, ischemic cardiomyopathy with recently known EF of 20 to 25%, paroxysmal atrial fibrillation on ant icoagulation with Eliquis, hypertension, hyperlipidemia, bipolar disorder, anxiety and depression, PTSD, nicotine dependence, and alcohol abuse with binge drinking behaviors. He presented to the emergency department with a chief complaint of chest pain. Patient reports binge drinking over the past few days and reports drinking a pint of vodka yesterday evening. He states this morning while showering around 7 AM he developed sudden onset pressure to his midsternal chest accompanied by shortness of breath, dizziness, nausea, and severe diaphoresis. Patient currently reports that his chest pain has improved from 8 out of 10 down to 3 out of 10 since placement of nitroglycerin paste in the emergency department. As stated above patient reports she recently binge drinking and continued nicotine dependence, but denies having any drug use, recent infections or exposure to known ill contacts, palpitations, cough or congestion, episodes of vomiting, or experiencing any numbness/tingling/wea kness/swelling in his extremities. Patient reports that his application design engineer is Dr. Dunlap and that he has taken all of his medications directly as prescribed without missing any doses. Upon arrival to the emergency department, patient underwent evaluation. Vital signs upon arrival show blood pressure 102/73, heart rate 111, respiratory rate 18, temp 98.5 F, and SpO2 of 97% on room air. EKG was completed showing sinus tachycardia at 113 bpm. Chest x-ray completed showing cardiomegaly with mild central congestive changes. Labs completed and reviewed. CBC showing stable normocytic anemia with hemoglobin of 9.5. Coagulation profile normal findings. BMP showing hypokalemia with sodium 134 and hypocarbia with bicarb of 13 and elevated anion gap of 16. Blood glucose was 103. Magnesium low at 1.6. Troponin 0.031 (this appears to be at baseline with most recent troponin drawn 10/04/2023 resulting at 0.034). Patient given aspirin 324 mg p.o. x 1 dose and Nitropaste in the emergency department and admitted under our services with consultation to cardiology. Opponents were trended increasing from 0.031-0.045 and 0.046. Eliquis was held and patient was started on heparin infusion per cardiology. Halal Butcher evaluated and took patient for cardiac cath on 11/19/2023. Cardiac catheterization showing severely calcified coronary arteries with patent stent in the proximal LAD and left circumflex and chronically occluded proximal RCA and mid to distal LAD. Halal Butcher recommending maximizing medical management and strongly encouraging smoking cessation. cardiology starting patient on Farxiga 10 mg daily and recommending patient follow-up outpatient in their office in 1 week. Patient currently free from any chest pain or complaints and is medically stable for discharge at this time. Patient strongly encouraged to avoid any and all alcohol use, recommended smoking cessation and for patient to follow-up with PCP in 1 to 2 days in addition to application design engineer in 1 week. Physical exam: Vital signs reviewed and stable. General: Nontoxic, no distress and appears stated age. Derm: Skin warm and dry, normal coloration for ethnicity. Head: Atraumatic, normocephalic and symmetric. Eyes: EOMs intact, no lid lag, and anicteric sclera Mouth: no lip lesions, mucus membranes moist Cardiovascular: regular rate and rhythm with normal S1S2, systolic murmur, positive posterior tibial pulses bilaterally, and cap refill < 2 seconds. Lungs: Respirations even, regular, and unlabored on room air. Lungs CTA bilaterally, no rhonchi, no rales, no wheezing, and no accessory muscle usage. Abdominal: soft, nontender to palpation, no guarding, no appreciable organomegaly Ext: ROM intact. No gross muscle atrophy, no edema, no contractures Neuro: Speech clear, face symmetrical and CN II-XII grossly intact with no noted focal neuro deficits Psych: Alert and oriented to person, place, time, and situation. Appropriate and pleasant affect. A total of 35 minutes of time were spent preparing this complex discharge summary. Pt was discharged on 11/20/2023 at 9:52 AM. Patient was seen independently by Nurse Practitioner. This document was prepared using [employer] dictation software. Please allow for errors in skein bander while rare they do occur. Rony Howell NP rendered care for this patient independently, reviewed the findings and plan as documented in the note above. I did not physically speak with or examine the patient on this date. Patient Condition at Discharge: Stable Plan - Discharge Summary Discharge Rx Participant: Yes New Discharge Prescriptions: New Dapagliflozin Propanediol [Farxiga] 10 mg PO DAILY 30 Days #30 tab Continue Atorvastatin [Lipitor] 80 mg PO HS Aspirin 81 mg PO DAILY tab Omeprazole [PriLOSEC] 20 mg PO DAILY Metoprolol Tartrate [Lopressor] 25 mg PO BID #60 tab Multivit with Calcium,Iron,Min [Women's Multivitamin] 1 tab PO DAILY Isosorbide Mononitrate ER [Imdur] 30 mg PO DAILY 30 Days #30 tab Ranolazine [Ranexa] 500 mg PO Q12HR 30 Days #60 tab Folic Acid 1 mg PO DAILY tab Thiamine [Vitamin B-1] 100 mg PO DAILY tab DULoxetine HCL [Cymbalta] 60 mg PO DAILY Amiodarone [Cordarone] 200 mg PO DAILY Apixaban [Eliquis] 5 mg PO BID Ticagrelor [Brilinta] 90 mg PO BID Discharge Medication List Atorvastatin [Lipitor] 80 mg PO HS 03/30/21 [History] Aspirin 81 mg PO DAILY tab 11/17/22 [Rx] Omeprazole [PriLOSEC] 20 mg PO DAILY 12/06/22 [History] Metoprolol Tartrate [Lopressor] 25 mg PO BID #60 tab 12/08/22 [Rx] Amiodarone [Cordarone] 200 mg PO DAILY 06/28/23 [History] DULoxetine HCL [Cymbalta] 60 mg PO DAILY 06/28/23 [History] Multivit with Calcium,Iron,Min [Women's Multivitamin] 1 tab PO DAILY 06/28/23 [History] Apixaban [Eliquis] 5 mg PO BID 10/04/23 [History] Ticagrelor [Brilinta] 90 mg PO BID 10/04/23 [History] Folic Acid 1 mg PO DAILY tab 10/06/23 [Rx] Isosorbide Mononitrate ER [Imdur] 30 mg PO DAILY 30 Days #30 tab 10/06/23 [Rx] Ranolazine [Ranexa] 500 mg PO Q12HR 30 Days #60 tab 10/06/23 [Rx] Thiamine [Vitamin B-1] 100 mg PO DAILY tab 10/06/23 [Rx] Dapagliflozin Propanediol [Farxiga] 10 mg PO DAILY 30 Days #30 tab 11/20/23 [Rx] Follow up Appointment(s)/Referral(s): Artis Dunlap MD [STAFF PHYSICIAN] - 12/04/23 9:30 am Pierre Amezcua MD [REFERRING] - 1 Week Patient Instructions/Handouts: *Surgery [facility] - After Heart Catheterization - Sash Repairer Instructions Activity/Diet/Wound Care/Special Instructions: Activity: As tolerated. Take breaks as needed. Diet: Heart healthy and carb consistent diet. Avoid salts, or foods with hidden salts such as canned or boxed foods and frozen dinners. Extra salt makes your heart work harder and traps the fluid in your body for longer. Special Instructions: Take all of your medications as directed and remember to keep all of your doctor's appointments and follow-up as needed. Strongly avoid cessation of any and all alcohol use. Discussed at bedside strongly recommend cessation of any and all alcohol use especially binge drinking behaviors and continuing with your AA meetings. Also strongly recommend smoking cessation. Thank you for allowing us to participate in your care, it was truly a pleasure having you for our patient!!! Discharge Disposition: HOME SELF-CARE
== END 2023-11-20 11:32 | disposition home or self-care (01) ==
LOC: EC 09:20 → 6NMEDSUR 12:24 → 3SCARD 15:22
PROVIDERS: ADMIT Internal Medicine; ATTEND Internal Medicine
DX: R07.89 Other chest pain (principal); R79.89 Other specified abnormal findings of blood chemistry; I25.10 Atherosclerotic heart disease of native coronary artery without angina pectoris; I25.5 Ischemic cardiomyopathy; I25.82 Chronic total occlusion of coronary artery; I48.0 Paroxysmal atrial fibrillation; E87.6 Hypokalemia; E87.1 Hypo-osmolality and hyponatremia; I27.20 Pulmonary hypertension, unspecified; I11.9 Hypertensive heart disease without heart failure; E78.5 Hyperlipidemia, unspecified; F10.10 Alcohol abuse, uncomplicated; D64.9 Anemia, unspecified; F43.10 Post-traumatic stress disorder, unspecified; F31.9 Bipolar disorder, unspecified; F41.9 Anxiety disorder, unspecified; Z79.02 Long term (current) use of antithrombotics/antiplatelets; F17.210 Nicotine dependence, cigarettes, uncomplicated; Z79.01 Long term (current) use of anticoagulants; Z79.82 Long term (current) use of aspirin; Z79.899 Other long term (current) drug therapy; Z91.041 Radiographic dye allergy status; Z95.5 Presence of coronary angioplasty implant and graft; Y90.9 Presence of alcohol in blood, level not specified
CPT/HCPCS: 96376; 96365; 96366 ×2; 96367; 99285; 36415; 93005; 93458; 80053 ×2; 80048; 83735 ×2; 84484; 85025; 85027; 85610; 85730 ×2; 80306; 71046; G0378 ×4; C1769; C1894; J2250; J1200; J2001; J1644 ×2; J3475; Q9967; J3010; J2919

== ENCOUNTER 2024-01-27 21:44 | Observation (INO) | payer MEDICARE, OTHER ==
[2024-01-27 23:08] LABS: Anisocytosis Slight; Basophils # (A) 0.1 k/uL (0-0.2); Basophils % (A) 1 %; Eosinophils # (A) 0.2 k/uL (0-0.7); Eosinophils % (A) 3 %; HCT 30.5 % (39.0-53.0); HGB 9.4 gm/dL (13.0-17.5); Hypochromasia Marked; Lymphocytes # (A) 0.7 k/uL (1.0-4.8); Lymphocytes % (A) 9 %; MCHC 30.7 g/dL (31.0-37.0); MCV 84.7 fL (80.0-100.0); Mean Platelet Volume 7.5; Microcytosis Slight; Monocytes # (A) 0.4 k/uL (0-1.0); Monocytes % (A) 6 %; Neutrophils # (A) 5.9 k/uL (1.3-7.7); Neutrophils % (A) 78 %; Platelet Count 337 k/uL (150-450); RDW 19.5 % (11.5-15.5); WBC 7.5 k/uL (3.8-10.6)
[2024-01-27 23:22] LABS: INR 0.9 (<1.2); Partial Thromboplastin Time 26.3 sec (22.0-30.0); Prothrombin Time 9.9 sec (10.0-12.5)
[2024-01-27] MEDS: MORPHINE SULFATE 4 MG/ML SYRINGE IVP STA (23:35)
[2024-01-27 23:43] LABS: ALT 44 U/L (4-49); AST 89 U/L (17-59); African American GFR (CKD) >90 (>60 ml/min/1.73 sqM); Albumin 3.8 g/dL (3.5-5.0); Alkaline Phosphatase 72 U/L (38-126); Anion Gap 14 mmol/L; Blood Urea Nitrogen 13 mg/dL (9-20); Calcium 8.6 mg/dL (8.4-10.2); Carbon Dioxide 21 mmol/L (22-30); Chloride 106 mmol/L (98-107); Glucose 137 mg/dL (74-99); Magnesium 1.7 mg/dL (1.6-2.3); Non-African American GFR(CKD) >90 (>60 ml/min/1.73 sqM); Potassium 3.8 mmol/L (3.5-5.1); Sodium 141 mmol/L (137-145); Total Bilirubin 0.8 mg/dL (0.2-1.3); Total Protein 6.2 g/dL (6.3-8.2)
[2024-01-27 23:52] LABS: NT-Pro-B-Type Natriuretic Pept 564 pg/mL
--- NOTE | 2024-01-28 01:02 | XR ---
EXAM: XR Chest, 2 Views CLINICAL HISTORY: ITS.REASON XR Reason: Chest Pain TECHNIQUE: Frontal and lateral views of the chest. COMPARISON: CXR November 18, 2023. FINDINGS: Lungs: Emphysema. No consolidation. Pleural space: Unremarkable. No pneumothorax. Heart: Cardiomegaly. Mediastinum: Unremarkable. Normal mediastinal contour. Bones/joints: Unremarkable. No acute fracture. Upper abdomen: Elevated LEFT hemidiaphragm. IMPRESSION: No acute findings in the chest.
--- NOTE | 2024-01-28 01:04 | ED ---
Chest Pain HPI - General Chief Complaint: Chest Pain Stated Complaint: chest pain Time Seen by Provider: 01/27/24 21:55 Source: EMS Mode of arrival: EMS - History of Present Illness Initial Comments: 58-year-old male with past medical history of coronary artery disease who presents emergency department reporting chest pain. States it started around 11 AM this morning. He admits he has been drinking all day. Drink approximately a pint. He describes it as a pressure sensation. States he has had 3 heart attacks with 3 stent placements and his pain feels similar in nature. He does have access to nitro however did not take any. He is supposed to be on Brilinta but unsure if he has taken his medications appropriately. Pain is graded 7 out of 10. Has associated shortness of breath. No lower extremity swelling. No history of DVT or PE. No other alleviating, precipitating or modifying factors - Related Data Home Medications Medication Instructions Recorded Confirmed Atorvastatin [Lipitor] 80 mg PO HS 03/30/21 01/28/24 Omeprazole [PriLOSEC] 20 mg PO DAILY 12/06/22 01/28/24 Amiodarone [Cordarone] 200 mg PO DAILY 06/28/23 01/28/24 DULoxetine HCL [Cymbalta] 60 mg PO DAILY 06/28/23 01/28/24 Apixaban [Eliquis] 5 mg PO BID 10/04/23 01/28/24 Ticagrelor [Brilinta] 90 mg PO BID 10/04/23 01/28/24 Previous Rx's Medication Instructions Recorded Aspirin 81 mg PO DAILY tab 11/17/22 Metoprolol Tartrate [Lopressor] 25 mg PO BID #60 tab 12/08/22 Allergies Allergy/AdvReac Type Severity Reaction Status Date / Time Iodinated Contrast Media Allergy Itching-see Verified 01/28/24 09:33 comment fentanyl AdvReac Itching Verified 01/28/24 09:33 Review of Systems ROS Statement: Those systems with pertinent positive or pertinent negative responses have been documented in the HPI. ROS Other: All systems not noted in ROS Statement are negative. Past Medical History Past Medical History: COPD, GERD/Reflux, GI Bleed, Hypertension, Myocardial Infarction ([place]), Pneumonia, Skin Disorder Additional Past Medical History / Comment(s): ETOH abuse with delirium tremors, lower GI bleed, IBS, chronic iron deficiency anemia, hypomagnesemia, hyperbilirubinemia, anorexia, vertigo, nephrolithiasis-passed stone on his own, chronic low back/cervical pain, DDD, kyphosis, scoliosis, coccyx pressure ulcer pt states is mostly healed. Dry and itchy skin back in high school. 2 heart attacks, one in December (2020) second in February (2020). Last Myocardial Infarction Date:: February 2021 History of Any Multi-Drug Resistant Organisms: None Reported Past Surgical History: Bariatric Surgery, Heart Catheterization With Stent, Hernia Repair, Orthopedic Surgery, Tonsillectomy Additional Past Surgical History / Comment(s): Right inner Forearm-metal plate, gastric bypass, incisional hernia surgery x2, EGDs, colonoscopies. 2 Stents henry herb in December 2020; bilateral knee surgeries Past Anesthesia/Blood Transfusion Reactions: No Reported Reaction Date of Last Stent Placement:: 2020 Past Psychological History: Anxiety, Bipolar, Depression, PTSD Smoking Status: Current every day smoker - Past Family History Mother History Unknown: Yes Family Medical History: Hypertension Additional Family Medical History / Comment(s): Lupus. Mother is living. Father History Unknown: Yes Family Medical History: Liver Disease Additional Family Medical History / Comment(s): ETOH abuse. of cirrhosis complications. General Exam General appearance: alert, appears intoxicated Head exam: Present: atraumatic, normocephalic, normal inspection Eye exam: Present: normal appearance, PERRL, EOMI. Absent: scleral icterus, conjunctival injection, periorbital swelling ENT exam: Present: normal exam, mucous membranes moist Neck exam: Present: normal inspection. Absent: tenderness, meningismus, lymphadenopathy Respiratory exam: Present: normal lung sounds bilaterally. Absent: respiratory distress, wheezes, rales, rhonchi, stridor Cardiovascular Exam: Present: regular rate, normal rhythm, normal heart sounds. Absent: systolic murmur, diastolic murmur, rubs, gallop, clicks GI/Abdominal exam: Present: soft, normal bowel sounds. Absent: distended, tenderness, guarding, rebound, rigid Extremities exam: Present: normal inspection, full ROM, normal capillary refill. Absent: tenderness, pedal edema, joint swelling, calf tenderness Back exam: Present: normal inspection Neurological exam: Present: alert, oriented X3, CN II-XII intact Psychiatric exam: Present: normal affect, normal mood Skin exam: Present: warm, dry, intact, normal color. Absent: rash Course Vital Signs 01/27/24 01/27/24 01/28/24 21:54 22:03 01:52 Temperature 98.2 F Pulse Rate 98 94 Pulse Rate [ 98 Left Sitting Radial] Respiratory 18 18 Rate Blood Pressure 138/96 105/65 O2 Sat by Pulse 95 96 Oximetry 01/28/24 01/28/24 01/28/24 06:37 08:17 10:00 Temperature Pulse Rate 98 100 110 H Pulse Rate [ Left Sitting Radial] Respiratory 18 20 20 Rate Blood Pressure 105/72 116/74 130/68 O2 Sat by Pulse 95 98 98 Oximetry 01/28/24 01/28/24 13:01 15:57 Temperature Pulse Rate 85 71 Pulse Rate [ Left Sitting Radial] Respiratory 16 18 Rate Blood Pressure 101/62 117/85 O2 Sat by Pulse 95 97 Oximetry Chest Pain MDM - MDM Was pt. sent in by a medical professional or institution (, PA, ELECTRIC MOTOR REPAIRER, urgent care, hospital, or detention...) When possible be specific @ -No Did you speak to anyone other than the patient for history (EMS, parent, family, police, friend...)? What history was obtained from this source @ -No Did you review nursing and triage notes (agree or disagree)? Why? @ -I reviewed and agree with nursing and triage notes Were old charts reviewed (outside hosp., previous admission, EMS record, old EKG, old radiological studies, urgent care reports/EKG's, detention records)? Report findings @ -I reviewed cardiology consultation in October where patient was seen for chest pain Differential Diagnosis (chest pain, altered mental status, abdominal pain women, abdominal pain men, vaginal bleeding, weakness, fever, dyspnea, syncope, headache, dizziness, GI bleed, back pain, seizure, CVA, palpatations, mental health, musculoskeletal)? @ -Differential Chest Pain: Stable Angina, Unstable Angina, STEMI, NSTEMI Aortic Dissection, Pneumothorax, Musculoskeletal, Esophageal Spasm GERD, Cholecystitis, Pancreatitis, Zoster, this is not meant to be an all-inclusive list. EKG interpreted by me (3pts min.). @ -Yes and demonstrates sinus rhythm with rate of 96. DE interval 153. QRS 108. QTc 447. No acute ST segment elevations or depressions X-rays interpreted by me (1pt min.). @ -Yes and demonstrates no acute process CT interpreted by me (1pt min.). @ -None done U/S interpreted by me (1pt. min.). @ -None done What testing was considered but not performed or refused? (CT, X-rays, U/S, labs)? Why? @ -None What meds were considered but not given or refused? Why? @ -None Did you discuss the management of the patient with other professionals (professionals i.e. , PA, ELECTRIC MOTOR REPAIRER, lab, RT, psych nurse, psychiatric social worker supervisor, vat tender, teacher, health officer, block and case maker)? Give summary @ -Spoke with Dr. Steve for the admission Was smoking cessation discussed for >3mins.? @ -No Was critical care preformed (if so, how long)? @ -No Were there social determinants of health that impacted care today? How? (Homelessness, low income, unemployed, alcoholism, drug addiction, transportation, low edu. Level, literacy, decrease access to med. care, senior living, rehab)? @ -No Was there de-escalation of care discussed even if they declined (Discuss DNR or withdrawal of care, Hospice)? DNR status @ -No What co-morbidities impacted this encounter? (DM, HTN, Smoking, COPD, CAD, Cancer, CVA, ARF, Chemo, Hep., AIDS, mental health diagnosis, sleep apnea, morbid obesity)? @ -Coronary artery disease, alcohol abuse Was patient admitted / discharged? Hospital course, mention meds given and route, prescriptions, significant lab abnormalities, going to OR and other pertinent info. @ -Upon arrival patient seen and evaluated in room 15. Thorough history and physical exam was performed. Patient does appear to be intoxicated. IV is established. Laboratory studies are conducted. Patient does have mildly jerrica vated troponin. At this time I will admit the patient and trend his troponins. Spoke with Dr. Steve for admission Undiagnosed new problem with uncertain prognosis? @ -No Drug Therapy requiring intensive monitoring for toxicity (Heparin, Nitro, Insulin, Cardizem)? @ -No Were any procedures done? @ -No Diagnosis/symptom? @ -Acute chest pain, history of coronary artery disease, elevated Trope, acute alcohol intoxication Acute, or Chronic, or Acute on Chronic? @ -Acute on chronic Uncomplicated (without systemic symptoms) or Complicated (systemic symptoms)? @ -Complicated Side effects of treatment? @ -No Exacerbation, Progression, or Severe Exacerbation? @ -No Poses a threat to life or bodily function? How? (Chest pain, [place], [place], pneumonia, PE, COPD, DKA, ARF, appy, cholecystitis, CVA, Diverticulitis, Homicidal, Suicidal, threat to staff... and all critical care pts) @ -No Disposition Clinical Impression: Chest pain, Elevated troponin, Alcohol abuse Disposition: ADMITTED IP TO THIS HOSP Condition: Stable Is patient prescribed a controlled substance at d/c from ED?: No Time of Disposition: 01:09 Decision to Admit Reason: Admit from EC Decision Date: 01/28/24 Decision Time: 01:09
[2024-01-28] MEDS ORDERED: NALOXONE 0.4 MG/ML 1 ML VIAL IV PRN (01:10)
[2024-01-28] MEDS: NITROGLYCERIN OINT 1 INCH/GM PACKET TOPICAL STA (01:54)
[2024-01-28] MEDS: MORPHINE SULFATE 2 MG/ML SYRINGE IVP STA (05:14)
--- NOTE | 2024-01-28 07:07 | P.HPIM ---
History of Present Illness H&P Date: 01/28/24 Chief Complaint: Chest pain 58-year-old male with ischemic cardiomyopathy left ventricular ejection fraction 20-25% Severe CAD status post multiple stents, paroxysmal A-fib on Eliquis Patient coming in due to sudden onset chest pain he was relaxing watching TV when suddenly started feeling crushing central chest pain radiating to the left neck 8 out of 10 in severity took some nitro at home helped a little bit but did not completely eliminate the pain he started having increased chest pain again eventually decided to come into the hospital after couple hours of dealing with it. These episodes were associated with profuse sweating heavy breathing feeling nauseous and slightly dizzy. Denies any vomiting. Patient denies any physical activity out of the ordinary. Denies any fevers chills upper respiratory infection symptoms coughing denies any recent travel or sick contact. Denies any GI bleeding He claims to be compliant with all his medications including Brilinta Patient denies any orthopnea or paroxysmal nocturnal dyspnea however he does report that he gets short of breath easily when he does anything Patient admits to tobacco smoking denies any illicit drugs he also admits to regular alcohol consumption At time of my evaluation patient claims that pain has resolved since he started the nitro patch review of systems Pertinent positives as noted in HPI. All other systems were reviewed and are negative on exam Constitutional: No acute distress, conversant, pleasant Eyes: Anicteric sclerae, moist conjunctiva, Pupils equal round reactive to light ENMT: NC/AT Oropharynx clear, no erythema, or exudates Neck: Supple, no masses, or JVD No carotid bruits No thyromegaly Lungs: Clear to auscultation Clear to percussion Normal respiratory effort, no accessory muscle use Cardiovascular: Heart regular in rate and rhythm, No murmurs, gallops, or rubs No peripheral edema Abdominal: Soft Nontender, no guarding, rebound or rigidity Abdomen moving with respiration Normoactive bowel sounds Skin dry and itchy skin with excoriation joel over bilateral legs no erythema no swelling Extremities: No digital cyanosis Pedal pulses intact and symmetrical Radial pulses intact and symmetrical No calf tenderness Psychiatric: Alert and oriented to person, place and time Neuro Muscles Strength 5/5 in all 4 extremities Sensation to light touch grossly present throughout Cranial nerves II-XII grossly intact Past Medical History Past Medical History: COPD, GERD/Reflux, GI Bleed, Hypertension, Myocardial Infarction ([place]), Pneumonia, Skin Disorder Additional Past Medical History / Comment(s): ETOH abuse with delirium tremors, lower GI bleed, IBS, chronic iron deficiency anemia, hypomagnesemia, hyperbilirubinemia, anorexia, vertigo, nephrolithiasis-passed stone on his own, chronic low back/cervical pain, DDD, kyphosis, scoliosis, coccyx pressure ulcer pt states is mostly healed. Dry and itchy skin back in high school. 2 heart attacks, one in December (2020) second in February (2020). Last Myocardial Infarction Date:: February 2021 History of Any Multi-Drug Resistant Organisms: None Reported Past Surgical History: Bariatric Surgery, Heart Catheterization With Stent, Hernia Repair, Orthopedic Surgery, Tonsillectomy Additional Past Surgical History / Comment(s): Right inner Forearm-metal plate, gastric bypass, incisional hernia surgery x2, EGDs, colonoscopies. 2 Stents placed in December 2020; bilateral knee surgeries Past Anesthesia/Blood Transfusion Reactions: No Reported Reaction Date of Last Stent Placement:: 2020 Past Psychological History: Anxiety, Bipolar, Depression, PTSD Smoking Status: Current every day smoker - Past Family History Mother History Unknown: Yes Family Medical History: Hypertension Additional Family Medical History / Comment(s): Lupus. Mother is living. Father History Unknown: Yes Family Medical History: Liver Disease Additional Family Medical History / Comment(s): ETOH abuse. of cirrhosis complications. Medications and Allergies Home Medications Medication Instructions Recorded Confirmed Type Atorvastatin [Lipitor] 80 mg PO HS 03/30/21 11/18/23 History Aspirin 81 mg PO DAILY tab 11/17/22 11/18/23 Rx Omeprazole [PriLOSEC] 20 mg PO DAILY 12/06/22 11/18/23 History Metoprolol Tartrate [Lopressor] 25 mg PO BID #60 tab 12/08/22 11/18/23 Rx Amiodarone [Cordarone] 200 mg PO DAILY 06/28/23 11/18/23 History DULoxetine HCL [Cymbalta] 60 mg PO DAILY 06/28/23 11/18/23 History Multivit with Calcium,Iron,Min 1 tab PO DAILY 06/28/23 11/18/23 History [Women's Multivitamin] Apixaban [Eliquis] 5 mg PO BID 10/04/23 11/18/23 History Ticagrelor [Brilinta] 90 mg PO BID 10/04/23 11/18/23 History Folic Acid 1 mg PO DAILY tab 10/06/23 11/18/23 Rx Isosorbide Mononitrate ER [Imdur] 30 mg PO DAILY 30 Days #30 tab 10/06/23 11/18/23 Rx Ranolazine [Ranexa] 500 mg PO Q12HR 30 Days #60 tab 10/06/23 11/18/23 Rx Thiamine [Vitamin B-1] 100 mg PO DAILY tab 10/06/23 11/18/23 Rx Dapagliflozin Propanediol [Farxiga] 10 mg PO DAILY 30 Days #30 tab 11/20/23 Rx Allergies Allergy/AdvReac Type Severity Reaction Status Date / Time Iodinated Contrast Media Allergy Itching-see Verified 11/18/23 11:41 comment fentanyl AdvReac Itching Verified 01/27/24 22:00 Physical Exam Vitals: Vital Signs Temp Pulse Pulse Resp BP Pulse Ox 01/28/24 06:37 98 18 105/72 95 01/28/24 01:52 94 18 105/65 96 01/27/24 22:03 98 01/27/24 21:54 98.2 F 98 18 138/96 95 Intake and Output 01/27/24 01/27/24 01/28/24 14:59 22:59 06:59 Other: Weight 79.379 kg Results CBC & Chem 7: 01/27/24 22:45 01/27/24 22:45 Labs: Abnormal Lab Results - Last 24 Hours (Table) 01/27/24 01/27/24 01/27/24 Range/Units 22:45 22:45 22:45 RBC 3.60 L (4.30-5.90) m/uL Hgb 9.4 L (13.0-17.5) gm/dL Hct 30.5 L (39.0-53.0) % MCHC 30.7 L (31.0-37.0) g/dL RDW 19.5 H (11.5-15.5) % Lymphocytes # 0.7 L (1.0-4.8) k/uL PT 9.9 L (10.0-12.5) sec Carbon Dioxide 21 L (22-30) mmol/L Creatinine 0.57 L (0.66-1.25) mg/dL Glucose 137 H (74-99) mg/dL AST 89 H (17-59) U/L Troponin I (0.000-0.034) ng/mL Total Protein 6.2 L (6.3-8.2) g/dL Serum Alcohol mg/dL 01/27/24 01/27/24 01/28/24 Range/Units 22:45 23:35 01:58 RBC (4.30-5.90) m/uL Hgb (13.0-17.5) gm/dL Hct (39.0-53.0) % MCHC (31.0-37.0) g/dL RDW (11.5-15.5) % Lymphocytes # (1.0-4.8) k/uL PT (10.0-12.5) sec Carbon Dioxide (22-30) mmol/L Creatinine (0.66-1.25) mg/dL Glucose (74-99) mg/dL AST (17-59) U/L Troponin I 0.059 H* 0.063 H* (0.000-0.034) ng/mL Total Protein (6.3-8.2) g/dL Serum Alcohol 202 H* mg/dL 01/28/24 Range/Units 04:47 RBC (4.30-5.90) m/uL Hgb (13.0-17.5) gm/dL Hct (39.0-53.0) % MCHC (31.0-37.0) g/dL RDW (11.5-15.5) % Lymphocytes # (1.0-4.8) k/uL PT (10.0-12.5) sec Carbon Dioxide (22-30) mmol/L Creatinine (0.66-1.25) mg/dL Glucose (74-99) mg/dL AST (17-59) U/L Troponin I 0.067 H* (0.000-0.034) ng/mL Total Protein (6.3-8.2) g/dL Serum Alcohol mg/dL Assessment and Plan Assessment: 58-year-old male with coronary artery disease status post stents, ischemic cardiomyopathy left ventricular ejection fraction 20% coming in with sudden onset chest pain discussed the case with ED doctor and accepted the admission for NSTEMI with anticipated length of stay more than 2 midnights NSTEMI coronary artery disease with multiple stents in the past Most recent left heart cath done in October 2023 showed severely calcified coronary artery disease with patent stents in the proximal LAD and left circumflex and chronic occluded proximal RCA and mid to distal LAD Cardiology at that time recommended maximal medical therapy Continue with aspirin and atorvastatin Continue with Brilinta Continue with Eliquis which patient takes for A-fib Troponin elevated and trending slightly up 0.059 then 0.067 BMP 564 Cardiac monitoring Continue to monitor vital signs EKG no acute ST changes Continue with Nitropatch Hold Imdur Cardiology consult Ischemic cardiomyopathy with left ventricular ejection fraction 20-25% per ec hocardiogram from September 2023 NYHA II-III Continue with Farxiga Patient is not on diuretics or Aldactone at home Patient is not on JUAN inhibitor or ARB alcohol Fluid restriction 2 L daily Daily weight Supplemental oxygen as needed Paroxysmal A-fib Continue with Eliquis Continue with amiodarone 200 mg p.o. daily Moderately severe alcohol intoxication and alcohol dependence patient Monitor for alcohol withdrawal Benzos per CIWA scale Thiamine p.o. daily Serum alcohol level 202 Chronic anemia Hemoglobin around baseline 9.4 Denies GI bleeding Renal function unremarkable sodium 141 potassium 3.8 BUN 13 creatinine 0.5 Full code DVT prophylaxis on Eliquis for A-fib GI prophylaxis Protonix 40 mg p.o. daily
[2024-01-28] MEDS: DAPAGLIFLOZIN PROPANEDIOL 10 MG TABLET PO SCH (08:12)
[2024-01-28] MEDS: ASPIRIN 81 MG PO SCH (08:13)
[2024-01-28] MEDS: AMIODARONE 200 MG TAB PO SCH (08:13)
[2024-01-28] MEDS: METOPROLOL TARTRATE 25 MG TAB PO SCH (08:13)
[2024-01-28] MEDS: PANTOPRAZOLE 40 MG TABLET PO SCH (08:13)
[2024-01-28] MEDS: APIXABAN 5 MG TAB PO SCH (08:13)
[2024-01-28] MEDS ORDERED: TICAGRELOR 90 MG TAB PO SCH (09:00)
--- NOTE | 2024-01-28 09:34 | P.CRDCN ---
History of Present Illness History of present illness: HISTORY OF PRESENT ILLNESS: This is a 58-year-old male with a past medical history significant for coronary artery disease with previous stenting, ischemic cardiomyopathy, COPD, paroxysmal atrial fibrillation, hypertension, hyperlipidemia, and alcohol abuse. Patient follows in the office with Dr. Chaudhari. We have been asked to see the patient in consultation for elevated troponins. Patient examined at the bedside in the emergency room. Patient states he began to have chest discomfort yesterday which prompted him to come to the emergency room. Patient states he was drinking heavily yesterday. Serum alcohol on admission was 202. Patient does report he is starting to have withdrawal symptoms this morning. He currently denies any chest pain or pressure. Denies any shortness of breath. DIAGNOSTICS: - EKG reveals sinus mechanism with nonspecific ST-T wave changes. No signs of acute ischemia.. - Chest xray negative for acute findings. - Laboratory data: WBC 7.5. Hemoglobin 9.4. Platelet count 337. Sodium 141. Potassium 3.8. BUN 13. Creatinine 0.57. Troponin 0.059. 0.063. 0.067. Serum alcohol 202. - Current home cardiac medication list has not been updated at the time of this dictation - Most recent echocardiogram obtained in September 2023 revealed ejection fraction 20 to 25%, mild pulmonary hypertension, apical thrombus was noted, and moderate mitral regurgitation - Cardiac catheterization history: October 2023 revealing severely calcified coronary arteries, patent stent in the proximal LAD and left circumflex, chronically occluded proximal RCA and mid to distal LAD, normal LVEDP. REVIEW OF SYSTEMS: At the time of my exam: CONSTITUTIONAL: Denies fever or chills. HEENT: Denies blurred vision, vision changes, or eye pain. Denies hemoptysis CARDIOVASCULAR: Denies chest pain. Denies orthopnea. Denies PND. Denies palpitations RESPIRATORY: Denies shortness of breath. GASTROINTESTINAL: Denies abdominal pain. Denies nausea or vomiting. HEMATOLOGIC: Denies bleeding disorders. GENITOURINARY: Denies any blood in urine. SKIN: Denies pruitis. Denies rash. PHYSICAL EXAM: VITAL SIGNS: Reviewed. GENERAL: Well-developed in no acute distress. HEENT: Head is normocephalic. Pupils are equal, round. Sclerae anicteric. Mucous membranes of the mouth are moist. Neck supple. No JVD or thyromegaly LUNGS: Respirations even and unlabored. Lungs essentially clear to auscultation bilaterally. HEART: Regular rate and rhythm. S1 and S2 heard. ABDOMEN: Soft. Nondistended. Nontender. EXTREMITIES: Normal range of motion. No clubbing or cyanosis. Peripheral pul ses intact. No lower extremity edema NEUROLOGIC: Awake and alert. Oriented x 3. ASSESSMENT: Chest pain Acute alcohol intoxication Acute alcohol withdrawal Coronary artery disease with previous stenting of the proximal LAD and left circumflex Chronically occluded proximal RCA and mid to distal LAD Abnormal troponins, flat, of no clinical significance, acute coronary syndrome ruled out Apical thrombus per echocardiogram, diagnosed September 2023 Ischemic cardiomyopathy, ejection fraction 20 to 25% COPD Paroxysmal atrial fibrillation Hypertension Hyperlipidemia History of alcohol abuse PLAN: An acute coronary event has been ruled out Obtain 2D echo to assess cardiac structure and function Resume home cardiac medications once medication list has been updated and verified Discontinue Brilinta. Continue Eliquis and aspirin Treatment of alcohol withdrawal per primary medicine Abstinence from alcohol recommended Further recommendations pending patient course Nurse practitioner note has been reviewed by physician. Signing provider agrees with the documented findings, assessment, and plan of care documented by [employer] MACHINE OPERATOR as a scribe. Past Medical History Past Medical History: COPD, GERD/Reflux, GI Bleed, Hypertension, Myocardial Infarction ([place]), Pneumonia, Skin Disorder Additional Past Medical History / Comment(s): ETOH abuse with delirium tremors, lower GI bleed, IBS, chronic iron deficiency anemia, hypomagnesemia, hyperbil irubinemia, anorexia, vertigo, nephrolithiasis-passed stone on his own, chronic low back/cervical pain, DDD, kyphosis, scoliosis, coccyx pressure ulcer pt states is mostly healed. Dry and itchy skin back in high school. 2 heart attacks, one in December (2020) second in February (2020). Last Myocardial Infarction Date:: February 2021 History of Any Multi-Drug Resistant Organisms: None Reported Past Surgical History: Bariatric Surgery, Heart Catheterization With Stent, Hernia Repair, Orthopedic Surgery, Tonsillectomy Additional Past Surgical History / Comment(s): Right inner Forearm-metal plate, gastric bypass, incisional hernia surgery x2, EGDs, colonoscopies. 2 Stents placed in December 2020; bilateral knee surgeries Past Anesthesia/Blood Transfusion Reactions: No Reported Reaction Date of Last Stent Placement:: 2020 Past Psychological History: Anxiety, Bipolar, Depression, PTSD Smoking Status: Current every day smoker - Past Family History Mother History Unknown: Yes Family Medical History: Hypertension Additional Family Medical History / Comment(s): Lupus. Mother is living. Father History Unknown: Yes Family Medical History: Liver Disease Additional Family Medical History / Comment(s): ETOH abuse. of cirrhosis complications. Medications and Allergies Home Medications Medication Instructions Recorded Confirmed Type Atorvastatin [Lipitor] 80 mg PO HS 03/30/21 11/18/23 History Aspirin 81 mg PO DAILY tab 11/17/22 11/18/23 Rx Omeprazole [PriLOSEC] 20 mg PO DAILY 12/06/22 11/18/23 History Metoprolol Tartrate [Lopressor] 25 mg PO BID #60 tab 12/08/22 11/18/23 Rx Amiodarone [Cordarone] 200 mg PO DAILY 06/28/23 11/18/23 History DULoxetine HCL [Cymbalta] 60 mg PO DAILY 06/28/23 11/18/23 History Multivit with Calcium,Iron,Min 1 tab PO DAILY 06/28/23 11/18/23 History [Women's Multivitamin] Apixaban [Eliquis] 5 mg PO BID 10/04/23 11/18/23 History Ticagrelor [Brilinta] 90 mg PO BID 10/04/23 11/18/23 History Folic Acid 1 mg PO DAILY tab 10/06/23 11/18/23 Rx Isosorbide Mononitrate ER [Imdur] 30 mg PO DAILY 30 Days #30 tab 10/06/23 11/18/23 Rx Ranolazine [Ranexa] 500 mg PO Q12HR 30 Days #60 tab 10/06/23 11/18/23 Rx Thiamine [Vitamin B-1] 100 mg PO DAILY tab 10/06/23 11/18/23 Rx Dapagliflozin Propanediol [Farxiga] 10 mg PO DAILY 30 Days #30 tab 11/20/23 Rx Allergies Allergy/AdvReac Type Severity Reaction Status Date / Time Iodinated Contrast Media Allergy Itching-see Verified 11/18/23 11:41 comment fentanyl AdvReac Itching Verified 01/27/24 22:00 Physical Exam Vitals: Vital Signs Temp Pulse Pulse Resp BP Pulse Ox 01/28/24 08:17 100 20 116/74 98 01/28/24 06:37 98 18 105/72 95 01/28/24 01:52 94 18 105/65 96 01/27/24 22:03 98 01/27/24 21:54 98.2 F 98 18 138/96 95 Intake and Output 01/27/24 01/28/24 01/28/24 22:59 06:59 14:59 Other: Weight 79.379 kg Results 01/27/24 22:45 01/27/24 22:45 Cardiac Enzymes 01/27/24 01/27/24 01/28/24 Range/Units 22:45 22:45 01:58 AST 89 H (17-59) U/L Troponin I 0.059 H* 0.063 H* (0.000-0.034) ng/mL 01/28/24 Range/Units 04:47 AST (17-59) U/L Troponin I 0.067 H* (0.000-0.034) ng/mL Coagulation 01/27/24 Range/Units 22:45 PT 9.9 L (10.0-12.5) sec APTT 26.3 (22.0-30.0) sec CBC 01/27/24 Range/Units 22:45 WBC 7.5 (3.8-10.6) k/uL RBC 3.60 L (4.30-5.90) m/uL Hgb 9.4 L (13.0-17.5) gm/dL Hct 30.5 L (39.0-53.0) % Plt Count 337 (150-450) k/uL Comprehensive Metabolic Panel 01/27/24 Range/Units 22:45 Sodium 141 (137-145) mmol/L Potassium 3.8 (3.5-5.1) mmol/L Chloride 106 (98-107) mmol/L Carbon Dioxide 21 L (22-30) mmol/L BUN 13 (9-20) mg/dL Creatinine 0.57 L (0.66-1.25) mg/dL Glucose 137 H (74-99) mg/dL Calcium 8.6 (8.4-10.2) mg/dL AST 89 H (17-59) U/L ALT 44 (4-49) U/L Alkaline Phosphatase 72 (38-126) U/L Total Protein 6.2 L (6.3-8.2) g/dL Albumin 3.8 (3.5-5.0) g/dL Current Medications Generic Name Dose Route Start Last Admin Trade Name Kandi PRN Reason Stop Dose Admin Amiodarone HCl 200 mg 01/28/24 09:00 01/28/24 08:13 Amiodarone 200 Mg Tab PO 200 mg DAILY ROLA Administration Apixaban 5 mg 01/28/24 09:00 01/28/24 08:13 Apixaban 5 Mg Tab PO 5 mg BID ROLA Administration Protocol Aspirin 81 mg 01/28/24 09:00 01/28/24 08:13 Aspirin 81 Mg PO 81 mg DAILY ROLA Administration Atorvastatin Calcium 80 mg 01/28/24 21:00 Atorvastatin 80 Mg Tab PO HS ROLA Dapagliflozin 10 mg 01/28/24 09:00 01/28/24 08:12 Dapagliflozin Propanediol 10 Mg Tablet PO 10 mg DAILY ROLA Administration Lorazepam 0.5 mg 01/28/24 07:09 Lorazepam 0.5 Mg Tab PO Q4HR PRN Ciwa 4 To 5 Lorazepam 1 mg 01/28/24 07:09 Lorazepam 1 Mg Tab PO Q4HR PRN Ciwa 6 To 7 Lorazepam 2 mg 01/28/24 07:09 Lorazepam 1 Mg Tab PO Q3HR PRN Ciwa 8 To 9 Lorazepam 1 mg 01/28/24 07:09 Lorazepam 2 Mg/Ml Inj IV Q1HR PRN CIWA 10 to 15 Metoprolol Tartrate 25 mg 01/28/24 09:00 01/28/24 08:13 Metoprolol Tartrate 25 Mg Tab PO 25 mg BID ROLA Administration Naloxone HCl 0.2 mg 01/28/24 01:10 Naloxone 0.4 Mg/Ml 1 Ml Vial IV Q2M PRN Opioid Reversal Pantoprazole Sodium 40 mg 01/28/24 09:00 01/28/24 08:13 Pantoprazole 40 Mg Tablet PO 40 mg DAILY ROLA Administration Thiamine HCl 100 mg 01/29/24 09:00 Thiamine 100 Mg Tab PO DAILY ROLA Intake and Output 01/27/24 01/28/24 01/28/24 22:59 06:59 14:59 Other: Weight 79.379 kg 01/27/24 22:45 01/27/24 22:45
[2024-01-28] MEDS: LORazepam 2 MG/ML INJ IV STA (12:07)
[2024-01-28 15:58] LABS: Glucose,Whole Blood 106 mg/dL (70-110)
[2024-01-28] MEDS: ATORVASTATIN 80 MG TAB PO SCH (20:36)
[2024-01-29] MEDS: LORazepam 1 MG TAB PO PRN ×2 (00:11→16:37)
[2024-01-29 06:36] LABS: Anisocytosis Slight; Basophils % (A) 1 %; Eosinophils # (A) 0.3 k/uL (0-0.7); Eosinophils % (A) 4 %; HGB 9.6 gm/dL (13.0-17.5); Hypochromasia Marked; Lymphocytes # (A) 1.2 k/uL (1.0-4.8); Lymphocytes % (A) 19 %; MCH 25.8 pg (25.0-35.0); MCV 85.8 fL (80.0-100.0); Mean Platelet Volume 7.9; Monocytes # (A) 0.4 k/uL (0-1.0); Monocytes % (A) 6 %; Neutrophils # (A) 4.2 k/uL (1.3-7.7); Neutrophils % (A) 67 %; Platelet Count 300 k/uL (150-450); RBC 3.73 m/uL (4.30-5.90); RDW 19.3 % (11.5-15.5); WBC 6.3 k/uL (3.8-10.6)
[2024-01-29 06:46] LABS: African American GFR (CKD) >90 (>60 ml/min/1.73 sqM); Anion Gap 7 mmol/L; Blood Urea Nitrogen 15 mg/dL (9-20); Calcium 8.5 mg/dL (8.4-10.2); Carbon Dioxide 27 mmol/L (22-30); Chloride 104 mmol/L (98-107); Glucose 86 mg/dL (74-99); Non-African American GFR(CKD) >90 (>60 ml/min/1.73 sqM); Potassium 3.7 mmol/L (3.5-5.1); Sodium 138 mmol/L (137-145)
[2024-01-29] MEDS ORDERED: Potassium Replacement Protocol 1 EACH MISC MISCELLANE PRN (07:27)
[2024-01-29] MEDS: THIAMINE 100 MG TAB PO SCH (08:16)
[2024-01-29] MEDS: LORazepam 2 MG/ML INJ IV PRN (08:16)
[2024-01-29] MEDS: POTASSIUM CHLORIDE ER 20 MEQ TAB.ER PO SCH (08:17)
--- NOTE | 2024-01-29 08:37 | PN ---
PROGRESS NOTE SUBJECTIVE: A 58-year-old gentleman, who was admitted to the hospital with acute alcohol intoxication, also had some chest discomfort and mildly elevated troponins that were not suggestive of an acute coronary syndrome. This morning, the patient appears comfortable at rest and is free of significant symptoms. OBJECTIVE: GENERAL: On exam, comfortable at rest. VITAL SIGNS: Heart rate is 73 beats per minute. Blood pressure is 99/62, respiratory rate 16, O2 saturation is 96% on room air. CHEST: Reveals good air entry bilaterally. HEART: Reveals first and second heart sounds. No gallop. No murmur. ABDOMEN: Soft. EXTREMITIES: Did not reveal any edema. Peripheral pulses are felt. LABORATORY DATA: Shows a hemoglobin of 9.6, platelet count is 300. Creatinine is 0.5. ASSESSMENT: 1. Atypical chest pain. 2. Acute alcohol intoxication. 3. Elevated troponins not suggestive of acute coronary syndrome. 4. History of coronary artery disease, status post prior angioplasty. 5. Paroxysmal atrial fibrillation. PLAN: We will follow the echocardiogram once it is available. No other cardiac workup at this time. Increase his activity. MMODL / IJN: [id number] /
--- NOTE | 2024-01-29 11:44 | CA ---
Transthoracic Echo Report Name: Jonathan Parsons Age: 58 Gender: M : 1965 Exam Date: 01/28/2024 17:16 Exam Location: [place] [facility] Ht (in): 68 Wt (lb): 175 Ordering Physician: Luiza Storey Attending/Referring Phys: [id number], Cordelia Director Of Dietary Emeli Lazaro RDCS Procedure CPT: Indications: LV function, CP Cardiac Hx: Technical Quality: Technically difficult study Contrast 1: Definity Total Dose (mL): 2 Contrast 2: Total Dose (mL): MEASUREMENTS (Male / Female) Normal Values 2D ECHO LV Diastolic Diameter PLAX 4.2 cm 4.2 - 5.9 / 3.9 - 5.3 cm LV Systolic Diameter PLAX 3.6 cm IVS Diastolic Thickness 1.9 cm 0.6 - 1.0 / 0.6 - 0.9 cm LVPW Diastolic Thickness 1.7 cm 0.6 - 1.0 / 0.6 - 0.9 cm LV Relative Wall Thickness 0.9 LA Volume 123.5 cm??? 18 - 58 / 22 - 52 cm??? LA Volume Index 62.8 cm???/m??? 16 - 28 cm???/m??? DOPPLER AV Peak Velocity 140.8 cm/s AV Peak Gradient 7.9 mmHg AV Mean Velocity 103.4 cm/s AV Mean Gradient 4.8 mmHg AV Velocity Time Integral 26.4 cm LVOT Peak Velocity 102.8 cm/s LVOT Peak Gradient 4.2 mmHg LVOT Velocity Time Integral 21.0 cm MV Area PHT 2.9 cm??? Mitral E Point Velocity 56.2 cm/s Mitral A Point Velocity 123.4 cm/s Mitral E to A Ratio 0.5 MV Deceleration Time 257.2 ms MV E' Velocity 3.8 cm/s Mitral E to MV E' Ratio 14.9 FINDINGS Left Ventricle Severely increased left ventricular wall thickness. Left ventricular cavity size normal. Reduced global left ventricular systolic function. Global left ventricular hypokinesis. Left ventricular ejection fraction is estimated at 30- 35 %. Grade 2 diastolic dysfunction. Right Ventricle Right ventricle not well visualized. Right Atrium Right atrium not well visualized. Left Atrium Severely increased left atrial volume. Mildly increased left atrial area. Mitral Valve Structurally normal mitral valve. Mitral valve thickened. Mild mitral annular calcification. Mild mitral regurgitation. Aortic Valve No aortic valve stenosis or regurgitation. Tricuspid Valve Structurally normal tricuspid valve. Pulmonic Valve Pulmonic valve not well visualized. Pericardium No pericardial effusion. Aorta Normal size aortic root and proximal ascending aorta. CONCLUSIONS Left ventricular ejection fraction 30-35% Severely increased left ventricular wall thickness Mild mitral calcification Mild mitral regurgitation No pericardial effusion Previewed by: Dr. Deondre Duenas DO (Electronically Signed) Final Date: 29 January 2024 11:44
--- NOTE | 2024-01-29 16:51 | P.PN ---
Subjective Progress Note Date: 01/29/24 No new complaints today. Feels a bit unsteady on his feet. Withdrawal controlled. Gen: In NAD, non-toxic HEENT: normocephalic, atraumatic, hearing acuity is intant, mucous membranes moist CVS: perfusing all extremities well, no pitting edema, Respiratory: symmetric chest expansion, no accessory muscle use, GI: soft, NTTP, ND, : no suprapubic tenderness, no CVA tenderness MSK/Derm: no rashes, cyanosis Neuro: CN II-XII intact, no motor weakness, Psych: cooperative, euthymic mood, judgment and insight is intact Hospital course: 58-year-old male with coronary artery disease status post stents, ischemic cardiomyopathy left ventricular ejection fraction 20% coming in with sudden onset chest pain discussed the case with ED doctor and accepted the admission for NSTEMI with anticipated length of stay more than 2 midnights Troponin elevated and trending slightly up 0.059 then 0.067 BMP 564 Serum alcohol level 202 Hemoglobin around baseline 9.4 Renal function unremarkable sodium 141 potassium 3.8 BUN 13 creatinine 0.[address] changes Assessment/plan: Alcohol Withdrawal -CIWA protocol, ativan PRN -thiamine, MVI, folate Elevated Troponin Coronary artery disease with multiple stents in the past Most recent left heart cath done in October 2023 showed severely calcified belkys nary artery disease with patent stents in the proximal LAD and left circumflex and chronic occluded proximal RCA and mid to distal LAD Cardiology at that time recommended maximal medical therapy Continue with aspirin and atorvastatin Continue with Eliquis which patient takes for A-fib Cardiac monitoring Continue to monitor vital signs Continue with Nitropatch Hold Imdur Cardiology consult Ischemic cardiomyopathy with left ventricular ejection fraction 20-25% per echocardiogram from September 2023 NYHA II-III Continue with Farxiga Patient is not on diuretics or Aldactone at home Patient is not on JUAN inhibitor or ARB alcohol Fluid restriction 2 L daily Daily weight Supplemental oxygen as needed Paroxysmal A-fib Continue with amiodarone 200 mg p.o. daily Moderately severe alcohol intoxication and alcohol dependence patient Monitor for alcohol withdrawal Benzos per CIWA scale Thiamine p.o. daily Chronic anemia Denies GI bleeding Full code DVT prophylaxis on Eliquis for A-fib GI prophylaxis Protonix 40 mg p.o. daily Objective - Vital Signs Vital signs: Vital Signs Temp 98.1 F 01/29/24 12:00 Pulse 69 01/29/24 12:00 Resp 14 01/29/24 12:00 BP 108/85 01/29/24 12:00 Pulse Ox 96 01/29/24 12:00 FiO2 Intake & Output 01/28/24 01/29/24 01/29/24 18:59 06:59 18:59 Intake Total 540 Output Total 300 150 Balance 240 -150 Weight 79.379 kg 82.2 kg Intake: Oral 540 Output: Urine 300 150 Other: Voiding Method Urinal Urinal # Voids 1 - Labs CBC & Chem 7: 01/29/24 05:51 01/29/24 05:51 Labs: Abnormal Lab Results - Last 24 Hours (Table) 01/29/24 01/29/24 Range/Units 05:51 05:51 RBC 3.73 L (4.30-5.90) m/uL Hgb 9.6 L (13.0-17.5) gm/dL Hct 32.0 L (39.0-53.0) % MCHC 30.0 L (31.0-37.0) g/dL RDW 19.3 H (11.5-15.5) % Creatinine 0.50 L (0.66-1.25) mg/dL
[2024-01-30] MEDS: LORazepam 0.5 MG TAB PO PRN (00:27)
[2024-01-30 07:03] LABS: African American GFR (CKD) >90 (>60 ml/min/1.73 sqM); Anion Gap 3 mmol/L; Blood Urea Nitrogen 12 mg/dL (9-20); Calcium 8.8 mg/dL (8.4-10.2); Carbon Dioxide 27 mmol/L (22-30); Chloride 106 mmol/L (98-107); Glucose 87 mg/dL (74-99); Magnesium 1.6 mg/dL (1.6-2.3); Non-African American GFR(CKD) >90 (>60 ml/min/1.73 sqM); Potassium 3.9 mmol/L (3.5-5.1); Sodium 136 mmol/L (137-145)
[2024-01-30 07:16] LABS: Anisocytosis Slight; HCT 32.9 % (39.0-53.0); HGB 9.6 gm/dL (13.0-17.5); Hypochromasia Marked; MCH 25.6 pg (25.0-35.0); MCHC 29.2 g/dL (31.0-37.0); MCV 87.8 fL (80.0-100.0); Mean Platelet Volume 7.9; Platelet Count 234 k/uL (150-450); RBC 3.75 m/uL (4.30-5.90); RDW 19.4 % (11.5-15.5); WBC 6.2 k/uL (3.8-10.6)
--- NOTE | 2024-01-30 09:16 | P.DS ---
Providers Date of admission: 01/28/24 01:10 Expected date of discharge: 01/30/24 Attending physician: Sherley Galeas MD Consults: 01/28/24 01:10 Consult Physician Urgent Consulting Provider: [facility] Consult Reason/Comments: acute chest pain, elevated trop Do you want consulting provider notified?: Yes Primary care physician: Stated None Hospital Course: Alcohol Withdrawal Elevated Troponin Coronary artery disease with multiple stents in the past Ischemic cardiomyopathy with left ventricular ejection fraction 20-25% per echocardiogram from September 2023 NYHA II-III Paroxysmal A-fib Moderately severe alcohol intoxication and alcohol dependence patient Chronic anemia Gen: In NAD, non-toxic HEENT: normocephalic, atraumatic, hearing acuity is intant, mucous membranes moist CVS: perfusing all extremities well, no pitting edema, Respiratory: symmetric chest expansion, no accessory muscle use, GI: soft, NTTP, ND, : no suprapubic tenderness, no CVA tenderness MSK/Derm: no rashes, cyanosis Neuro: CN II-XII intact, no motor weakness, Psych: cooperative, euthymic mood, judgment and insight is intact Hospital course: 58-year-old male with coronary artery disease status post stents, ischemic cardiomyopathy left ventricular ejection fraction 20% coming in with sudden onset chest pain and alcohol intoxication. Troponin was slightly elevated at 0. 059 then trended to 0.067. BNP was 564. EKG demonstrated no acute ST changes. Patient was admitted to observation with cardiology consultation, who evaluated the patient, repeated echocardiogram which confirmed low ejection fraction, but notably there was no concern for ACS. During his hospitalization, his Brilinta was discontinued and he remains on aspirin and Eliquis. His hospital course was notable for mild alcohol withdrawal, warranting Ativan as needed and CIWA protocol. Patient will be discharged home and was provided alcohol cessation counseling throughout hospitalization. I spent 34 minutes coordinating this discharge Patient Condition at Discharge: Good Plan - Discharge Summary Discharge Rx Participant: Yes New Discharge Prescriptions: New Thiamine [Vitamin B-1] 100 mg PO DAILY #14 tab Continue Atorvastatin [Lipitor] 80 mg PO HS Aspirin 81 mg PO DAILY tab Omeprazole [PriLOSEC] 20 mg PO DAILY Metoprolol Tartrate [Lopressor] 25 mg PO BID #60 tab DULoxetine HCL [Cymbalta] 60 mg PO DAILY Amiodarone [Cordarone] 200 mg PO DAILY Apixaban [Eliquis] 5 mg PO BID Discontinued Ticagrelor [Brilinta] 90 mg PO BID Discharge Medication List Atorvastatin [Lipitor] 80 mg PO HS 03/30/21 [History] Aspirin 81 mg PO DAILY tab 11/17/22 [Rx] Omeprazole [PriLOSEC] 20 mg PO DAILY 12/06/22 [History] Metoprolol Tartrate [Lopressor] 25 mg PO BID #60 tab 12/08/22 [Rx] Amiodarone [Cordarone] 200 mg PO DAILY 06/28/23 [History] DULoxetine HCL [Cymbalta] 60 mg PO DAILY 06/28/23 [History] Apixaban [Eliquis] 5 mg PO BID 10/04/23 [History] Thiamine [Vitamin B-1] 100 mg PO DAILY #14 tab 01/30/24 [Rx] Follow up Appointment(s)/Referral(s): None,Stated [Primary Care Provider] - 1-2 days Discharge Disposition: HOME SELF-CARE
[2024-01-30 09:28] LABS: Eosinophils # (M) 0.19 k/uL (0-0.7); Lymphocytes # (M) 0.99 k/uL (1.0-4.8); Neutrophils # (M) 4.53 k/uL (1.3-7.7); Neutrophils % (M) 73 %; Nucleated Red Blood Cells 0 /100 WBC (0-0); Total Cells Counted 100
[2024-01-30 09:29] LABS: Poikilocytosis (M) Present
[2024-01-30 09:35] VITALS: RESP 16
--- NOTE | 2024-01-30 11:24 | PN ---
PROGRESS NOTE SUBJECTIVE: Jonathan is a 58-year-old gentleman who is admitted to hospital with chest pain and ruled out for myocardial infarction. He has history of EtOH abuse and was intoxicated on his presentation. His history is also significant for paroxysmal atrial fibrillation. This morning, he is doing well, free of symptoms, eager to go home. An echocardiogram revealed an ejection fraction of 35% with mild mitral regurgitation. OBJECTIVE: GENERAL: Comfortable at rest. VITAL SIGNS: Stable. O2 saturation is 95% on room air. NECK: There is no jugular venous distention. Carotid upstroke is normal. There is no bruit. CHEST: Reveals good air entry bilaterally. HEART: Reveals first and second heart sounds. No gallop, no murmur. ABDOMEN: Soft. EXTREMITIES: Did not reveal any edema. Peripheral pulses are felt. LABORATORY DATA: Labs show a hemoglobin of 9.6, platelet count is 234, potassium is 3.9 with a creatinine of 0.5. His troponins were flat at 0.05, 0.06 and 0.06 without definite pattern to it. ASSESSMENT: 1. ETOH abuse with alcohol intoxication, troponin elevation not related to acute myocardial ischemia and no clinical significance. 2. Anemia. 3. History of paroxysmal atrial fibrillation. 4. Ischemic cardiomyopathy. PLAN: The patient will continue with current medical therapy. MMODL / IJN: [id number] /
[2024-01-30 12:02] VITALS: BP 112/79; PULSE 70; TEMP 98
== END 2024-01-30 12:52 | disposition home or self-care (01) ==
LOC: EC 21:44 → 6NMEDSUR 01-28 01:10 → 3SCARD 01-28 01:22 → 2SICU 01-28 15:04
PROVIDERS: ADMIT Internal Medicine; ATTEND Internal Medicine
DX: F10.229 Alcohol dependence with intoxication, unspecified (principal); F10.239 Alcohol dependence with withdrawal, unspecified; R07.89 Other chest pain; R79.89 Other specified abnormal findings of blood chemistry; I25.10 Atherosclerotic heart disease of native coronary artery without angina pectoris; J44.9 Chronic obstructive pulmonary disease, unspecified; K21.9 Gastro-esophageal reflux disease without esophagitis; I10 Essential (primary) hypertension; F31.9 Bipolar disorder, unspecified; F41.9 Anxiety disorder, unspecified; I25.5 Ischemic cardiomyopathy; I48.0 Paroxysmal atrial fibrillation; D64.9 Anemia, unspecified; E78.5 Hyperlipidemia, unspecified; I25.2 Old myocardial infarction; F17.200 Nicotine dependence, unspecified, uncomplicated; Y90.7 Blood alcohol level of 200-239 mg/100 ml; Z95.5 Presence of coronary angioplasty implant and graft; Z79.899 Other long term (current) drug therapy; Z79.01 Long term (current) use of anticoagulants; Z79.02 Long term (current) use of antithrombotics/antiplatelets; Z79.82 Long term (current) use of aspirin; Z79.84 Long term (current) use of oral hypoglycemic drugs
CPT/HCPCS: 96376 ×2; 96374; 96375; 99285; 36415; 93005; 83880; 80053; 80048 ×2; 83735 ×2; 84484 ×2; 85025 ×3; 85610; 85730; 71046; G0378 ×3; C8929; G0480; J2060 ×2; J2270 ×2; J3360; Q9957; 80320; 93306

== ENCOUNTER 2024-01-31 01:02 | Observation (INO) | payer MEDICARE, OTHER ==
--- NOTE | 2024-01-31 03:02 | ED ---
General Adult HPI - General Chief complaint: Alcohol Stated complaint: ETOH Depressed Time Seen by Provider: 01/31/24 01:11 Source: patient, police Mode of arrival: ambulatory Limitations: no limitations - History of Present Illness Initial comments: 58-year-old male presents to the emergency department accompanied by police. Police found the patient outside naked. It appeared that the patient had been drinking. He does not provide much history to triage staff Upon evaluation by myself the patient states that he brought himself in for c hest pain. He does have history of cardiac disease. Patient was just admitted to the hospital 3 days ago for same complaint. Denies fevers, chills or cough. Does admit to shortness of breath. HPI is limited because the patient's alcohol intoxication - Related Data Home Medications Medication Instructions Recorded Confirmed Atorvastatin [Lipitor] 80 mg PO HS 03/30/21 01/28/24 Omeprazole [PriLOSEC] 20 mg PO DAILY 12/06/22 01/28/24 Amiodarone [Cordarone] 200 mg PO DAILY 06/28/23 01/28/24 DULoxetine HCL [Cymbalta] 60 mg PO DAILY 06/28/23 01/28/24 Apixaban [Eliquis] 5 mg PO BID 10/04/23 01/28/24 Previous Rx's Medication Instructions Recorded Aspirin 81 mg PO DAILY tab 11/17/22 Metoprolol Tartrate [Lopressor] 25 mg PO BID #60 tab 12/08/22 Thiamine [Vitamin B-1] 100 mg PO DAILY #14 tab 01/30/24 Allergies Allergy/AdvReac Type Severity Reaction Status Date / Time Iodinated Contrast Media Allergy Itching-see Verified 01/31/24 01:09 comment fentanyl AdvReac Itching Verified 01/31/24 01:09 Review of Systems ROS Statement: Those systems with pertinent positive or pertinent negative responses have been documented in the HPI. ROS Other: All systems not noted in ROS Statement are negative. Past Medical History Past Medical History: COPD, GERD/Reflux, GI Bleed, Hypertension, Myocardial Infarction ([place]), Pneumonia, Skin Disorder Additional Past Medical History / Comment(s): ETOH abuse with delirium tremors, lower GI bleed, IBS, chronic iron deficiency anemia, hypomagnesemia, hyperbilirubinemia, anorexia, vertigo, nephrolithiasis-passed stone on his own, chronic low back/cervical pain, DDD, kyphosis, scoliosis, coccyx pressure ulcer pt states is mostly healed. Dry and itchy skin back in high school. 2 heart at tacks, one in December (2020) second in February (2020). Last Myocardial Infarction Date:: February 2021 History of Any Multi-Drug Resistant Organisms: None Reported Past Surgical History: Bariatric Surgery, Heart Catheterization With Stent, Hernia Repair, Orthopedic Surgery, Tonsillectomy Additional Past Surgical History / Comment(s): Right inner Forearm-metal plate, gastric bypass, incisional hernia surgery x2, EGDs, colonoscopies. 2 Stents placed in December 2020; bilateral knee surgeries Past Anesthesia/Blood Transfusion Reactions: No Reported Reaction Date of Last Stent Placement:: 2020 Past Psychological History: Anxiety, Bipolar, Depression, PTSD Smoking Status: Current every day smoker - Past Family History Mother History Unknown: Yes Family Medical History: Hypertension Additional Family Medical History / Comment(s): Lupus. Mother is living. Father History Unknown: Yes Family Medical History: Liver Disease Additional Family Medical History / Comment(s): ETOH abuse. of cirrhosis complications. General Exam Limitations: no limitations General appearance: alert, appears intoxicated Head exam: Present: atraumatic, normocephalic, normal inspection Eye exam: Present: normal appearance, PERRL, EOMI. Absent: scleral icterus, conjunctival injection, periorbital swelling ENT exam: Present: normal exam, mucous membranes moist Neck exam: Present: normal inspection Respiratory exam: Present: normal lung sounds bilaterally. Absent: respiratory distress, wheezes, rales, rhonchi, stridor Cardiovascular Exam: Present: regular rate, normal rhythm, normal heart sounds. Absent: systolic murmur, diastolic murmur, rubs, gallop, clicks Neurological exam: Present: alert Course Vital Signs 01/31/24 01/31/24 01/31/24 01:07 02:14 04:24 Temperature 97.3 F L Pulse Rate 82 70 67 Respiratory 16 18 18 Rate Blood Pressure 102/69 91/68 107/78 O2 Sat by Pulse 100 99 100 Oximetry Medical Decision Making - Medical Decision Making Was pt. sent in by a medical professional or institution (, PA, MANAGER OPERATING, urgent care, hospital, or senior care...) When possible be specific @ -Patient was brought in by police Did you speak to anyone other than the patient for history (EMS, parent, family, police, friend...)? What history was obtained from this source @ -No Did you review nursing and triage notes (agree or disagree)? Why? @ -I reviewed and agree with nursing and triage notes Were old charts reviewed (outside hosp., previous admission, EMS record, old EKG, old radiological studies, urgent care reports/EKG's, senior care records)? Report findings @ -I reviewed the discharge summary January 29 Differential Diagnosis (chest pain, altered mental status, abdominal pain women, abdominal pain men, vaginal bleeding, weakness, fever, dyspnea, syncope, headache, dizziness, GI bleed, back pain, seizure, CVA, palpatations, mental health, musculoskeletal)? @ -Differential Chest Pain: Stable Angina, Unstable Angina, STEMI, NSTEMI Aortic Dissection, Pneumothorax, Musculoskeletal, Esophageal Spasm GERD, Cholecystitis, Pancreatitis, Zoster, this is not meant to be an all-inclusive list. EKG interpreted by me (3pts min.). @ -yes and demonstrates sinus rhythm with a rate of 66. AK interval 117. QRS 125. QTc of 455 X-rays interpreted by me (1pt min.). @ -None done CT interpreted by me (1pt min.). @ -None done U/S interpreted by me (1pt. min.). @ -None done What testing was considered but not performed or refused? (CT, X-rays, U/S, labs)? Why? @ -None What meds were considered but not given or refused? Why? @ -None Did you discuss the management of the patient with other professionals (professionals i.e. , PA, MANAGER OPERATING, lab, RT, psych nurse, rn social services, career and technology education teacher, teacher, attendance officer, director case management)? Give summary @ -Spoke with Kiya from [facility] for admission Was smoking cessation discussed for >3mins.? @ -No Was critical care preformed (if so, how long)? @ -No Were there social determinants of health that impacted care today? How? (Homelessness, low income, unemployed, alcoholism, drug addiction, transportat ion, low edu. Level, literacy, decrease access to med. care, prison, rehab)? @ -No Was there de-escalation of care discussed even if they declined (Discuss DNR or withdrawal of care, Hospice)? DNR status @ -No What co-morbidities impacted this encounter? (DM, HTN, Smoking, COPD, CAD, Cancer, CVA, ARF, Chemo, Hep., AIDS, mental health diagnosis, sleep apnea, morbid obesity)? @ -Coronary artery disease, alcohol abuse Was patient admitted / discharged? Hospital course, mention meds given and route , prescriptions, significant lab abnormalities, going to OR and other pertinent info. @ -Upon arrival patient seen and evaluated in room 23. Patient is visibly intoxicated. IV was established. Twelve-lead EKG was obtained. Laboratory studies are conducted. Patient is significantly intoxicated. Will admit for serial troponins and sobriety. Spoke with Kiya from [facility] for admission Undiagnosed new problem with uncertain prognosis? @ -No Drug Therapy requiring intensive monitoring for toxicity (Heparin, Nitro, Insulin, Cardizem)? @ -No Were any procedures done? @ -No Diagnosis/symptom? @ -Acute chest pain, history of coronary artery disease, alcohol intoxication Acute, or Chronic, or Acute on Chronic? @ -Acute on chronic Uncomplicated (without systemic symptoms) or Complicated (systemic symptoms)? @ -Complicated Side effects of treatment? @ -No Exacerbation, Progression, or Severe Exacerbation? @ -No Poses a threat to life or bodily function? How? (Chest pain, [place], [place], pneumonia, PE, COPD, DKA, ARF, appy, cholecystitis, CVA, Diverticulitis, Homicidal, Suicidal, threat to staff... and all critical care pts) @ -No - Lab Data Result diagrams: 01/31/24 02:14 01/31/24 02:14 Lab Results 01/31/24 01/31/24 01/31/24 Range/Units 02:14 02:14 02:14 WBC 5.8 (3.8-10.6) k/uL RBC 4.25 L (4.30-5.90) m/uL Hgb 10.8 L (13.0-17.5) gm/dL Hct 36.9 L (39.0-53.0) % MCV 86.8 (80.0-100.0) fL MCH 25.4 (25.0-35.0) pg MCHC 29.3 L (31.0-37.0) g/dL RDW 19.4 H (11.5-15.5) % Plt Count 272 (150-450) k/uL MPV 7.8 Neutrophils % (Manual) 33 % Band Neuts % (Manual) 53 % Eosinophils % (Manual) 6 % Basophils % (Manual) 8 % Neutrophils # (Manual) 4.90 (1.3-7.7) k/uL Eosinophils # (Manual) 0.35 (0-0.7) k/uL Basophils # (Manual) 0.46 H (0-0.2) k/uL Nucleated RBCs 0 (0-0) /100 WBC Manual Slide Review Performed Hypochromasia Marked Anisocytosis Slight Target Cells Present Ovalocytes Present Crenated Cell Present Fragmented RBCs Present Sodium 147 H (137-145) mmol/L Potassium 4.0 (3.5-5.1) mmol/L Chloride 110 H (98-107) mmol/L Carbon Dioxide 25 (22-30) mmol/L Anion Gap 12 mmol/L BUN 8 L (9-20) mg/dL Creatinine 0.59 L (0.66-1.25) mg/dL Est GFR (CKD-EPI)AfAm >90 (>60 ml/min/1.73 sqM) Est GFR (CKD-EPI)NonAf >90 (>60 ml/min/1.73 sqM) Glucose 90 (74-99) mg/dL Calcium 9.1 (8.4-10.2) mg/dL Magnesium 1.6 (1.6-2.3) mg/dL Total Bilirubin 0.6 (0.2-1.3) mg/dL AST 67 H (17-59) U/L ALT 42 (4-49) U/L Alkaline Phosphatase 68 (38-126) U/L Troponin I 0.014 (0.000-0.034) ng/mL Total Protein 6.9 (6.3-8.2) g/dL Albumin 4.2 (3.5-5.0) g/dL Serum Alcohol 279 H* mg/dL Disposition Clinical Impression: Alcohol intoxication Disposition: ADMITTED IP TO THIS [facility] Condition: Stable Is patient prescribed a controlled substance at d/c from ED?: No Time of Disposition: 03:59 Decision to Admit Reason: Admit from EC Decision Date: 01/31/24 Decision Time: 03:59
[2024-01-31] MEDS: SODIUM CHLORIDE 0.9% 1,000 ML IV ONE (03:14)
[2024-01-31 03:21] LABS: ALT 42 U/L (4-49); AST 67 U/L (17-59); African American GFR (CKD) >90 (>60 ml/min/1.73 sqM); Albumin 4.2 g/dL (3.5-5.0); Alkaline Phosphatase 68 U/L (38-126); Anion Gap 12 mmol/L; Blood Urea Nitrogen 8 mg/dL (9-20); Calcium 9.1 mg/dL (8.4-10.2); Carbon Dioxide 25 mmol/L (22-30); Chloride 110 mmol/L (98-107); Glucose 90 mg/dL (74-99); Magnesium 1.6 mg/dL (1.6-2.3); Non-African American GFR(CKD) >90 (>60 ml/min/1.73 sqM); Sodium 147 mmol/L (137-145); Total Bilirubin 0.6 mg/dL (0.2-1.3); Total Protein 6.9 g/dL (6.3-8.2)
[2024-01-31 03:35] LABS: Alcohol 279 mg/dL
[2024-01-31 03:52] LABS: Anisocytosis Slight; HCT 36.9 % (39.0-53.0); HGB 10.8 gm/dL (13.0-17.5); Hypochromasia Marked; MCH 25.4 pg (25.0-35.0); MCHC 29.3 g/dL (31.0-37.0); MCV 86.8 fL (80.0-100.0); Mean Platelet Volume 7.8; Platelet Count 272 k/uL (150-450); RBC 4.25 m/uL (4.30-5.90); RDW 19.4 % (11.5-15.5); WBC 5.8 k/uL (3.8-10.6)
[2024-01-31] MEDS ORDERED: NALOXONE 0.4 MG/ML 1 ML VIAL IV PRN (03:59)
[2024-01-31] MEDS ORDERED: LORazepam 1 MG TAB PO PRN ×3 (04:18)
[2024-01-31] MEDS ORDERED: LORazepam 0.5 MG TAB PO PRN (04:18)
[2024-01-31] MEDS: SODIUM CHLORIDE 0.9% 1,000 ML IV SCH (04:32)
[2024-01-31 05:10] LABS: Band Neutrophils % 53 %; Basophils # (M) 0.46 k/uL (0-0.2); Eosinophils # (M) 0.35 k/uL (0-0.7); Neutrophils % (M) 33 %; Nucleated Red Blood Cells 0 /100 WBC (0-0); Total Cells Counted 100
[2024-01-31 05:13] LABS: Crenated RBC Present; Ovalocytes Present; RBC Fragments Present; Target Cells Present
[2024-01-31] MEDS: PANTOPRAZOLE 40 MG/10 ML VIAL IVP SCH (08:41)
[2024-01-31] MEDS: NITROGLYCERIN SL TABS 0.4 MG TAB SUBLINGUAL PRN (08:41)
[2024-01-31 11:35] LABS: Amphetamine Screen,Urine Not Detected (NotDetected); Barbiturate Screen,Urine Not Detected (NotDetected); Benzodiazepines Screen,Urine Detected (NotDetected); Cocaine Screen,Urine Not Detected (NotDetected); Methadone Screen, Urine Not Detected (NotDetected); Opiate Screen,Urine Not Detected (NotDetected); Oxycodone Screen, Urine Not Detected (NotDetected); Phencyclidine Screen,Urine Not Detected (NotDetected); Tricyclic Antidepressant,Urine Not Detected (NotDetected)
[2024-01-31 11:36] LABS: Urn Cannabinoid Scrn Not Detected (NotDetected)
[2024-01-31] MEDS: LORazepam 1 MG TAB PO PRN (12:29)
--- NOTE | 2024-01-31 13:14 | P.HPIM ---
History of Present Illness 58-year-old admitted for alcohol withdrawal patient given with alcohol intoxication acute alcohol drinks about fifth of alcohol daily and patient has drink was yesterday patient is presently undergoing withdrawals patient is also complaining of chest pressure-like sensation does have history of coronary disease cardiac catheterization stents In the past. EKG showed some J-point elevation in pattern but no other acute ST-T wave changes were appreciated on the EKG. Troponins were negative. Patient does have history of atrial fib rillation on Eliquis patient is also on aspirin at this time. Patient is receiving IV fluids with hyperchloremia and hypernatremia. REVIEW OF SYSTEMS: All other systems are negative except those mentioned in the HPI PHYSICAL EXAMINATION: GENERAL: The patient is alert and oriented x3, not in any acute distress. Well developed, well nourished. HEENT: Pupils are round and equally reacting to light. EOMI. No scleral icterus. No conjunctival pallor. Normocephalic, atraumatic. No pharyngeal erythema. No thyromegaly. CARDIOVASCULAR: S1 and S2 present. No murmurs, rubs, or gallops. PULMONARY: Chest is clear to auscultation, no wheezing or crackles. ABDOMEN: Soft, nontender, nondistended, normoactive bowel sounds. No palpable organomegaly. MUSCULOSKELETAL: No joint swelling or deformity. EXTREMITIES: No cyanosis, clubbing, or pedal edema. NEUROLOGICAL: Gross neurological examination did not reveal any focal deficits. SKIN: No rashes. Assessment and plan .Alcohol withdrawal patient is on Ativan CIWA protocol with along with thiamine multivitamin supplementation social work will be consulted. Will add Librium. -Chest pain pleuritic in nature because of which I will obtain a D-dimer and a chest x-ray to evaluate for pneumonia and rule out any pulmonary embolism although patient is on anticoagulation which is being continued troponins are negative EKG is no acute ST-T wave changes cardiology will evaluate the patient,, ruled out acute coronary syndromes -Atrial fibrillation paroxysmal presently sinus rhythm patient was resumed on anticoagulation and beta-deepa -Alcohol abuse -Gastroesophageal reflux disease -COPD without any acute exacerbation -Coronary artery disease with stents in the past -Depression For above-mentioned chronic medical problems patient will be resumed on appropriate home medications DVT prophylaxis:-On anticoagulation Past Medical History Past Medical History: COPD, GERD/Reflux, GI Bleed, Hypertension, Myocardial Infarction ([place]), Pneumonia, Skin Disorder Additional Past Medical History / Comment(s): ETOH abuse with delirium tremors, lower GI bleed, IBS, chronic iron deficiency anemia, hypomagnesemia, hyperbilirubinemia, anorexia, vertigo, nephrolithiasis-passed stone on his own, chronic low back/cervical pain, DDD, kyphosis, scoliosis, coccyx pressure ulcer pt states is mostly healed. Dry and itchy skin back in high school. 2 heart attacks, one in December (2020) second in February (2020). Last Myocardial Infarction Date:: February 2021 History of Any Multi-Drug Resistant Organisms: None Reported Past Surgical History: Bariatric Surgery, Heart Catheterization With Stent, Hernia Repair, Orthopedic Surgery, Tonsillectomy Additional Past Surgical History / Comment(s): Right inner Forearm-metal plate, gastric bypass, incisional hernia surgery x2, EGDs, colonoscopies. 2 Stents placed in December 2020; bilateral knee surgeries Past Anesthesia/Blood Transfusion Reactions: No Reported Reaction Date of Last Stent Placement:: 2020 Past Psychological History: Anxiety, Bipolar, Depression, PTSD Smoking Status: Current every day smoker - Past Family History Mother History Unknown: Yes Family Medical History: Hypertension Additional Family Medical History / Comment(s): Lupus. Mother is living. Father History Unknown: Yes Family Medical History: Liver Disease Additional Family Medical History / Comment(s): ETOH abuse. of cirrhosis complications. Medications and Allergies Home Medications Medication Instructions Recorded Confirmed Type Atorvastatin [Lipitor] 80 mg PO DIRECTED 03/30/21 01/31/24 History Omeprazole [PriLOSEC] 20 mg PO DIRECTED 12/06/22 01/31/24 History Amiodarone [Cordarone] 200 mg PO DIRECTED 06/28/23 01/31/24 History DULoxetine HCL [Cymbalta] 60 mg PO DIRECTED 06/28/23 01/31/24 History Apixaban [Eliquis] 5 mg PO DIRECTED 10/04/23 01/31/24 History Thiamine [Vitamin B-1] 100 mg PO DAILY #14 tab 01/30/24 01/31/24 Rx Aspirin 81 mg PO DIRECTED 01/31/24 01/31/24 History Metoprolol Tartrate [Lopressor] 25 mg PO DIRECTED 07/11/24 07/11/24 History Allergies Allergy/AdvReac Type Severity Reaction Status Date / Time Iodinated Contrast Media Allergy Itching-see Verified 01/31/24 11:25 comment fentanyl AdvReac Itching Verified 01/31/24 11:25 Physical Exam Vitals: Vital Signs Temp Pulse Pulse Resp BP BP Pulse Ox 01/31/24 12:32 94 127/86 01/31/24 12:14 90 16 127/83 96 01/31/24 11:00 87 16 111/80 98 01/31/24 09:00 94 16 97/69 98 01/31/24 06:26 85 16 120/85 98 01/31/24 04:24 67 18 107/78 100 01/31/24 02:14 70 18 91/68 99 01/31/24 01:07 97.3 F L 82 16 102/69 100 Intake and Output 01/30/24 01/31/24 01/31/24 22:59 06:59 14:59 Other: Weight 80.739 kg Results CBC & Chem 7: 01/31/24 02:14 01/31/24 02:14 Labs: Abnormal Lab Results - Last 24 Hours (Table) 01/31/24 01/31/24 01/31/24 Range/Units 02:14 02:14 11:04 RBC 4.25 L (4.30-5.90) m/uL Hgb 10.8 L (13.0-17.5) gm/dL Hct 36.9 L (39.0-53.0) % MCHC 29.3 L (31.0-37.0) g/dL RDW 19.4 H (11.5-15.5) % Basophils # (Manual) 0.46 H (0-0.2) k/uL Sodium 147 H (137-145) mmol/L Chloride 110 H (98-107) mmol/L BUN 8 L (9-20) mg/dL Creatinine 0.59 L (0.66-1.25) mg/dL AST 67 H (17-59) U/L U Benzodiazepines Scrn Detected H (NotDetected) Serum Alcohol 279 H* mg/dL
[2024-01-31] MEDS ORDERED: NON FORMULARY DRUG (Omeprazole 20 MG Capsule.Dr) PO SCH (13:15)
--- NOTE | 2024-01-31 13:46 | XR ---
EXAMINATION TYPE: XR chest 2V DATE OF EXAM: 01/31/2024 1:34 PM CLINICAL INDICATION:Male, 58 years old with history of Pneumonia; [facility] COMPARISON: Chest radiographs from 01/27/2024 TECHNIQUE: XR chest 2V Frontal view of the chest. FINDINGS: Lungs/Pleura: Elevated left diaphragm similar prior studies. There is no evidence of pleural effusion , focal consolidation, or pneumothorax. Pulmonary vascularity: Unremarkable. Heart/mediastinum: Cardiomediastinal silhouette is unremarkable. Musculoskeletal: No acute osseous pathology. IMPRESSION: Elevated left diaphragm similar prior no significant change from prior no evidence for pneumonia.
[2024-01-31] MEDS: DULoxetine HCL 60 MG CAPSULE.DR PO SCH (14:15)
[2024-01-31] MEDS: ASPIRIN 81 MG PO SCH (14:15)
[2024-01-31] MEDS: APIXABAN 5 MG TAB PO SCH (14:15)
[2024-01-31] MEDS: THIAMINE 100 MG TAB PO SCH (14:16)
[2024-01-31] MEDS: AMIODARONE 200 MG TAB PO SCH (14:16)
[2024-01-31] MEDS: METOPROLOL SUCCINATE (ER) 25 MG TAB.ER.24H PO SCH (14:16)
[2024-01-31] MEDS: MAGNESIUM SULFATE-D5W PMX 1 GM in DEXTROSE/WATER 1 100ML.BAG IVPB SCH (14:16)
[2024-01-31] MEDS: ATORVASTATIN 80 MG TAB PO SCH (20:23)
[2024-02-01 11:40] LABS: Magnesium 1.7 mg/dL (1.5-2.4)
[2024-02-01 12:00] LABS: BUN/Creat Ratio 20.67 Ratio (12.00-20.00); Blood Urea Nitrogen 12.4 mg/dL (9.0-27.0); Calcium 8.3 mg/dL (8.7-10.3); Carbon Dioxide 19.1 mmol/L (21.6-31.8); Chloride 104 mmol/L (96-109); Glucose 88 mg/dL (70-110); Potassium 4.2 mmol/L (3.5-5.5); Sodium 138 mmol/L (135-145)
[2024-02-01 13:23] VITALS: BP 119/76; PULSE 62; RESP 14; TEMP 98.4
--- NOTE | 2024-02-01 14:45 | P.CN ---
Psychiatric Consult - . Consult date: 02/01/24 Consult:: 02/01/24 14:17 IDENTIFYING DATA: Patient is a 58-year-old male who is currently lives by himself and currently collects Social Security REASON FOR REFERRAL: Psychiatry was consulted for psychiatric evaluation, depression and alcohol abuse HISTORY OF PRESENT ILLNESS: Patient was seen today for psychiatric evaluation. Patient initially came to the hospital on 01/30 was brought in by police apparently patient was outside naked. Patient was intoxicated with alcohol blood alcohol level of 279. He is fairly uncooperative when he was admitted. Patient claims that he has been feeling a bit depressed lately. Claims that he relapsed back on alcohol, has been drinking about 1/5 of vodka a day. He states that "I do not know why I walked outside naked" and states that he was drinking earlier. He states that he has been "overwhelmed" and claims that the medications are not been helping him that much. He did claim that he does have some anxiety. Denying any withdrawal symptoms at this time. States that his sleep is fair, appetite has been poor. He was agreeable to try naltrexone again which has helped in the past and also Zyprexa. At this time he is denying any suicidal homicidal ideations intent or plan. Denying any auditory or visual hallucinations. Patient claims that he is using alcohol regularly as noted above, also cigarette use, denies any other recreational drug use. PAST PSYCHIATRIC HISTORY: Patient states that he has a history of bipolar, depression and alcohol use. Patient's last psychiatric hospitalization was on 03/2020. Patient was on Lamictal and Cymbalta and has recently been off these medications. He currently follows up at [facility] and his therapist and follows up with a nurse practitioner there. He claims that he has had 3 previous suicide attempts in the past overdosing on medication several years ago. He reports having "tardive dyskinesia "on Risperdal. He says that Seroquel made him very sleepy. PAST MEDICAL HISTORY: Past Medical History: COPD, GERD/Reflux, GI Bleed, Hypertension, Myocardial Infarction ([place]), Pneumonia, Skin Disorder Additional Past Medical History / Comment(s): ETOH abuse with delirium tremors, lower GI bleed, IBS, chronic iron deficiency anemia, hypomagnesemia, hyperbilirubinemia, anorexia, vertigo, nephrolithiasis-passed stone on his own, chronic low back/cervical pain, DDD, kyphosis, scoliosis, coccyx pressure ulcer pt states is mostly healed. Dry and itchy skin back in high school. 2 heart attacks, one in December (2020) second in February (2020). Last Myocardial Infarction Date:: February 2021 History of Any Multi-Drug Resistant Organisms: None Reported Past Surgical History: Bariatric Surgery, Heart Catheterization With Stent, Hernia Repair, Orthopedic Surgery, Tonsillectomy Additional Past Surgical History / Comment(s): Right inner Forearm-metal plate, gastric bypass, incisional hernia surgery x2, EGDs, colonoscopies. 2 Stents placed in December 2020. Past Anesthesia/Blood Transfusion Reactions: No Reported Reaction Date of Last Stent Placement:: 2020 Past Psychological History: Anxiety, Bipolar, Depression, PTSD Additional Psychological History / Comment(s): Pt resides in a friends home where he rents a room. He now has a car and drives. Pt states his depression is stable at this time, no thoughts or plans of suicide. He has had multiple mental health unit admissions. He has ETOH abuse. He goes to [facility]. Smoking Status: Current every day smoker Past Alcohol Use History: Abuse Additional Past Alcohol Use History / Comment(s): Pt started smoking in 1979 and is a 1.5 -2ppd smoker. He drinks on average 12 beers /day 4-5 days a week or 1- 2 fifths per day Past Drug Use History: None Reported Additional Drug Use History / Comment(s): Pt still uses marijuana on occasion, but quit all other drugs 4-5 years ago. ALLERGIES: as per EMR. CHEMICAL DEPENDENCY HISTORY: as per HPI. FAMILY PSYCHIATRIC/SUBSTANCE USE HISTORY: Claims his father was an alcoholic and his grandmother had some form of mental illness. SOCIAL HISTORY: Per chart review: States that he was born and raised in [facility] and moved to [place] thereafter. 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 Pt resides in a friends home where he rents a room. Patient reported that this provider that he is living by himself. He says he h as a girlfriend Abby in [place]. He reports having 6 daughters and 3 sons. He says he used to travel and being abandoned. He says he enjoys playing [employer] and belle. MENTAL STATUS EXAM: General Appearance: Patient appears to be wearing glasses, stated age is alert, attempts to be cooperative. Patient has a long house and has fair hygiene and grooming. Tattoos Behavior: Patient is calmly seated without any agitated behavior. Attempts to cooperate Speech: Patient's speech is fluent and nonpressured. Mood/Affect: Patient reports their mood is "depressed lately", affect is congruent and constricted Suicidality/Homicidality: Patient denies having any homicidal or suicidal ideations intent or plan. Perceptions: Patient denies any auditory or visual hallucinations. Though content/process: Chronic delusion. Rambles at times. Logical. Memory and concentration: AOX3, grossly intact for the purposes of this session. Can spell "WORLD" backwards Judgment and insight: Poor chronically, improving IMPRESSIONS: Bipolar disorder unspecified Alcohol use disorder, severe dependence Opioid use disorder, in sustained remission Nicotine dependence Plan: -At this time patient DOES NOT meet criteria for inpatient psychiatric admission. -Would recommend the following medication changes/additions: Start naltrexone 50 mg p.o. daily for alcohol cravings Zyprexa 7.5 mg nightly for mood stabilization/insomnia Continue Cymbalta 60 mg daily for mood/anxiety/pain. -CIWA protocol with PRN Ativan for alcohol withdrawal. Continue to monitor vital signs. -Patient is currently established with [facility] and recommend regular follow-up -Bench Assembler spoke with patient about substance abuse and the harmful effects on medical and mental health, patient verbally understood and agreed. Patient was offered rehab for substance use however patient is declining both of them at this time. -SW to provide patient substance use treatment resources including AA/NA meetings in the community. -SW to provide patient with access line number to call for inpatient substance rehab -Communicated plan to patient's nurse -Psychiatry will sign off at this time, please call if patients condition worsens or there is any questions -Please contact with any questions. 02/01/24 14:40
[2024-02-01] MEDS: NALTREXONE HCL 50 MG TAB PO SCH (16:12)
[2024-02-01] MEDS ORDERED: OLANZapine 7.5 MG TAB PO SCH (21:00)
--- NOTE | 2024-02-01 23:44 | P.CRDCN ---
History of Present Illness History of present illness: HISTORY OF PRESENT ILLNESS: This is a 58-year-old male with a past medical history significant for coronary artery disease with previous stenting, ischemic cardiomyopathy, COPD, paroxysmal atrial fibrillation, hypertension, hyperlipidemia, and alcohol abuse. Patient follows in the office with Dr. Chaudhari. We have been asked to see the patient in consultation for chest pain. he states he went home however does not recall becoming intoxicated or started drink however does recall artery with some on and when he was arguing he was more frustrated and anxious and then started having chest pain. he states he normally gets chest pain like this appears arguing. He was given 1 nitroglycerin and his chest pain improved. He states this is fairly common and is similar to what happens at home and no real difference in the frequency or intensity or duration.troponin was noted to be normal. DIAGNOSTICS: - Most recent echocardiogram obtained in September 2023 revealed ejection fraction 20 to 25%, mild pulmonary hypertension, apical thrombus was noted, and moderate mitral regurgitation - Cardiac catheterization history: October 2023 revealing severely calcified coronary arteries, patent stent in the proximal LAD and left circumflex, chronically occluded proximal RCA and mid to distal LAD, normal LVEDP. REVIEW OF SYSTEMS: At the time of my exam: CONSTITUTIONAL: Denies fever or chills. HEENT: Denies blurred vision, vision changes, or eye pain. Denies hemoptysis CARDIOVASCULAR: +chest pain. Denies orthopnea. Denies PND. Denies palpitations RESPIRATORY: Denies shortness of breath. GASTROINTESTINAL: Denies abdominal pain. Denies nausea or vomiting. HEMATOLOGIC: Denies bleeding disorders. GENITOURINARY: Denies any blood in urine. SKIN: Denies pruitis. Denies rash. PHYSICAL EXAM: VITAL SIGNS: Reviewed. GENERAL: Well-developed in no acute distress. HEENT: Head is normocephalic. Pupils are equal, round. Sclerae anicteric. Mucous membranes of the mouth are moist. Neck supple. No JVD or thyromegaly LUNGS: Respirations even and unlabored. Lungs essentially clear to auscultation bilaterally. HEART: Regular rate and rhythm. S1 and S2 heard. ABDOMEN: Soft. Nondistended. Nontender. EXTREMITIES: Normal range of motion. No clubbing or cyanosis. Peripheral pulses intact. No lower extremity edema NEUROLOGIC: Awake and alert. Oriented x 3. ASSESSMENT: Chest pain, appears more related to anxiety and similar to other chronic symptoms. No symptoms or signs to suggest acute coronary syndrome. Acute alcohol intoxication Acute alcohol withdrawal Coronary artery disease with previous stenting of the proximal LAD and left circumflex Chronically occluded proximal RCA and mid to distal LAD Abnormal troponins, flat, of no clinical significance, acute coronary syndrome ruled out Apical thrombus per echocardiogram, diagnosed September 2023 Ischemic cardiomyopathy, ejection fraction 20 to 25% COPD Paroxysmal atrial fibrillation Hypertension Hyperlipidemia History of alcohol abuse PLAN: An acute coronary event has been ruled out recent workup was unrevealing. Troponinsnormal this hospitalization. Symptoms appear more related to anxiety and stress from stressful situations however did improve with nitro. Symptoms are stable however and if anything more likely chronic stable angina. Discussed possibly trying Imdur however would like to continue current regimen and currently feels well. Okay for discharge home from a cardiology standpoint. Past Medical History Past Medical History: COPD, GERD/Reflux, GI Bleed, Hypertension, Myocardial Infarction ([place]), Pneumonia, Skin Disorder Additional Past Medical History / Comment(s): ETOH abuse with delirium tremors, lower GI bleed, IBS, chronic iron deficiency anemia, hypomagnesemia, hyperbilirubinemia, anorexia, vertigo, nephrolithiasis-passed stone on his own, chronic low back/cervical pain, DDD, kyphosis, scoliosis, coccyx pressure ulcer pt states is mostly healed. Dry and itchy skin back in high school. 2 heart attacks, one in December (2020) second in February (2020). Last Myocardial Infarction Date:: june 2023 History of Any Multi-Drug Resistant Organisms: None Reported Past Surgical History: Bariatric Surgery, Heart Catheterization With Stent, Hernia Repair, Orthopedic Surgery, Tonsillectomy Additional Past Surgical History / Comment(s): Right inner Forearm-metal plate, gastric bypass, incisional hernia surgery x2, EGDs, colonoscopies. 2 Stents placed in December 2020; bilateral knee surgeries Past Anesthesia/Blood Transfusion Reactions: No Reported Reaction Date of Last Stent Placement:: december 2020 Past Psychological History: Anxiety, Bipolar, Depression, PTSD Additional Psychological History / Comment(s): Pt resides in a hotel room. Pt states his depression is stable at this time, no thoughts or plans of suicide. He has had multiple mental health unit admissions. He has ETOH abuse. He goes to [facility]. Smoking Status: Current every day smoker Past Alcohol Use History: Abuse, Daily Additional Past Alcohol Use History / Comment(s): Pt started smokingin 1979 and is a 1.5 -2ppd smoker. Past Drug Use History: None Reported Additional Drug Use History / Comment(s): Pt still uses marijuana on occasion, but quit all other drugs 4-5 years ago. - Past Family History Mother History Unknown: Yes Family Medical History: Hypertension Additional Family Medical History / Comment(s): Lupus. Mother is living. Father History Unknown: Yes Family Medical History: Liver Disease Additional Family Medical History / Comment(s): ETOH abuse. of cirrhosis complications. Medications and Allergies Home Medications Medication Instructions Recorded Confirmed Type Atorvastatin [Lipitor] 80 mg PO DIRECTED 03/30/21 01/31/24 History Omeprazole [PriLOSEC] 20 mg PO DIRECTED 12/06/22 01/31/24 History Amiodarone [Cordarone] 200 mg PO DIRECTED 06/28/23 01/31/24 History DULoxetine HCL [Cymbalta] 60 mg PO DIRECTED 06/28/23 01/31/24 History Apixaban [Eliquis] 5 mg PO DIRECTED 10/04/23 01/31/24 History Thiamine [Vitamin B-1] 100 mg PO DAILY #14 tab 01/30/24 01/31/24 Rx Aspirin 81 mg PO DIRECTED 01/31/24 01/31/24 History Metoprolol Succinate (ER) [Toprol 25 mg PO DAILY #30 tab 02/01/24 Rx XL] Naltrexone HCl [Revia] 50 mg PO DAILY #10 tab 02/01/24 Rx Nitroglycerin Sl Tabs [Nitrostat] 0.4 mg SUBLINGUAL Q5M PRN #20 tab 02/01/24 Rx OLANZapine [ZyPREXA] 7.5 mg PO HS #10 tab 02/01/24 Rx Allergies Allergy/AdvReac Type Severity Reaction Status Date / Time Iodinated Contrast Media Allergy Itching-see Verified 01/31/24 11:25 comment fentanyl AdvReac Itching Verified 01/31/24 11:25 Physical Exam Vitals: Vital Signs Temp Pulse Resp BP BP Pulse Ox 02/01/24 13:21 98.4 F 62 14 119/76 97 02/01/24 07:00 98 F 88 16 114/76 100 02/01/24 01:30 79 16 116/82 97 07/12/24 01:14 89 17 Intake and Output 02/01/24 02/01/24 02/02/24 14:59 22:59 06:59 Intake Total 256 Output Total 400 Balance -144 Intake: IV 20 Invasive Line 1 20 Oral 236 Output: Urine 400 Other: Voiding Method Urinal Results 01/31/24 02:14 02/01/24 05:53 Comprehensive Metabolic Panel 02/01/24 Range/Units 05:53 Sodium 138 (135-145) mmol/L Potassium 4.2 (3.5-5.5) mmol/L Chloride 104 (96-109) mmol/L Carbon Dioxide 19.1 L (21.6-31.8) mmol/L BUN 12.4 (9.0-27.0) mg/dL Creatinine 0.6 (0.6-1.5) mg/dL Glucose 88 (70-110) mg/dL Calcium 8.3 L (8.7-10.3) mg/dL Intake and Output 02/01/24 02/01/24 02/02/24 14:59 22:59 06:59 Intake Total 256 Output Total 400 Balance -144 Intake: IV 20 Invasive Line 1 20 Oral 236 Output: Urine 400 Other: Voiding Method Urinal 01/31/24 02:14 02/01/24 05:53
== END 2024-02-01 17:29 | disposition home or self-care (01) ==
LOC: EC 01:02 → 6NMEDSUR 04:01
PROVIDERS: ADMIT Hospitalist; ATTEND Hospitalist
DX: F10.239 Alcohol dependence with withdrawal, unspecified (principal); E87.0 Hyperosmolality and hypernatremia; E78.5 Hyperlipidemia, unspecified; E87.8 Other disorders of electrolyte and fluid balance, not elsewhere classified; F17.200 Nicotine dependence, unspecified, uncomplicated; F31.9 Bipolar disorder, unspecified; F41.9 Anxiety disorder, unspecified; F43.10 Post-traumatic stress disorder, unspecified; G24.01 Drug induced subacute dyskinesia; I10 Essential (primary) hypertension; I25.10 Atherosclerotic heart disease of native coronary artery without angina pectoris; I25.5 Ischemic cardiomyopathy; I48.0 Paroxysmal atrial fibrillation; I34.0 Nonrheumatic mitral (valve) insufficiency; K21.9 Gastro-esophageal reflux disease without esophagitis; Z98.84 Bariatric surgery status; Z95.5 Presence of coronary angioplasty implant and graft; Z91.51 Personal history of suicidal behavior; Z87.442 Personal history of urinary calculi; Z82.49 Family history of ischemic heart disease and other diseases of the circulatory system; Z79.82 Long term (current) use of aspirin; Z79.01 Long term (current) use of anticoagulants; I27.20 Pulmonary hypertension, unspecified; M41.9 Scoliosis, unspecified; J44.9 Chronic obstructive pulmonary disease, unspecified
CPT/HCPCS: 96376 ×2; 96361 ×2; 96365; 96366; 96375; 99285; 36415; 93005; 85379; 80053; 80048; 83735 ×2; 84484; 85025; 80306; 71046; G0378 ×2; G0480; J3475; J2470 ×2; 80320

== ENCOUNTER 2024-02-24 19:08 | Inpatient (IN) | payer MEDICARE, OTHER ==
[2024-02-24 19:29] VITALS: TEMP 97.9
--- NOTE | 2024-02-24 20:16 | ED ---
Chest Pain HPI - General Chief Complaint: Chest Pain Stated Complaint: chest pain Time Seen by Provider: 02/24/24 19:30 Source: patient, EMS Mode of arrival: EMS Limitations: no limitations - History of Present Illness Initial Comments: Patient is a 58-year-old gentleman past medical history of CAD status post stents, heavy smoking history, alcoholism presenting today for chest pain. Patient states at 6:00 he was sitting and watching TV when he began experiencing left-sided chest pressure. Radiates to his neck intermittently. Was given for 81 mg aspirin via EMS. Did not take any medications at home prior to arrival. Associated nausea and diaphoresis. Did receive Zofran via EMS. Endorses mild shortness of breath. Denies any illicit drug use including cocaine. Does state that he does binge drink, 1/2 to 1 gallon of vodka about 4 days a week. Patient states that he begins drinking when he gets paid on Sunday and stops when he runs out of money. Patient states his last drink was at midnight last night. Does feel tremulous and feels tactile services. Denies any auditory visual donations. Endorses mild headache. No vomiting but does endorse dry heaves. Is able to do serial additions. Patient takes Brilinta. Denies cough or hemoptysis. Pain does not radiate to his back or shoulder blades. Denies any fevers or chills. Denies abdominal pain. - Related Data Home Medications Medication Instructions Recorded Confirmed Atorvastatin [Lipitor] 80 mg PO DIRECTED 03/30/21 02/25/24 Omeprazole [PriLOSEC] 20 mg PO DIRECTED 12/06/22 02/25/24 Amiodarone [Cordarone] 200 mg PO DIRECTED 06/28/23 02/25/24 DULoxetine HCL [Cymbalta] 60 mg PO DIRECTED 06/28/23 02/25/24 Apixaban [Eliquis] 5 mg PO DIRECTED 10/04/23 02/25/24 Aspirin 81 mg PO DIRECTED 01/31/24 02/25/24 Metoprolol Succinate (ER) [Toprol 25 mg PO DIRECTED 02/25/24 02/25/24 Xl] Naltrexone HCl [Revia] 50 mg PO DIRECTED 02/25/24 02/25/24 OLANZapine 7.5 mg PO DIRECTED 02/25/24 02/25/24 Thiamine [Vitamin B-1] 100 mg PO DIRECTED 02/25/24 02/25/24 Previous Rx's Medication Instructions Recorded Nitroglycerin Sl Tabs [Nitrostat] 0.4 mg SUBLINGUAL Q5M PRN #20 tab 02/01/24 Allergies Allergy/AdvReac Type Severity Reaction Status Date / Time Iodinated Contrast Media Allergy Itching-see Verified 02/24/24 19:29 comment fentanyl AdvReac Itching Verified 02/24/24 19:29 Review of Systems ROS Statement: Those systems with pertinent positive or pertinent negative responses have been documented in the HPI. ROS Other: All systems not noted in ROS Statement are negative. EKG Findings - EKG Comments: EKG Findings:: Sinus tachycardia, heart rate 101 bpm, parable 137 ms, QT/QTc 419/477 ms, left axis deviation, no ST elevations or depressions, no arrhythmia Past Medical History Past Medical History: COPD, GERD/Reflux, GI Bleed, Hypertension, Myocardial Infarction ([place]), Pneumonia, Skin Disorder Additional Past Medical History / Comment(s): ETOH abuse with delirium tremors, lower GI bleed, IBS, chronic iron deficiency anemia, hypomagnesemia, hyperbilirubinemia, anorexia, vertigo, nephrolithiasis-passed stone on his own, chronic low back/cervical pain, DDD, kyphosis, scoliosis, coccyx pressure ulcer pt states is mostly healed. Dry and itchy skin back in high school. 2 heart attacks, one in December (2020) second in February (2020). Last Myocardial Infarction Date:: june 2023 History of Any Multi-Drug Resistant Organisms: None Reported Past Surgical History: Bariatric Surgery, Heart Catheterization With Stent, Hernia Repair, Orthopedic Surgery, Tonsillectomy Additional Past Surgical History / Comment(s): Right inner Forearm-metal plate, gastric bypass, incisional hernia surgery x2, EGDs, colonoscopies. 2 Stents placed in December 2020; bilateral knee surgeries Past Anesthesia/Blood Transfusion Reactions: No Reported Reaction Date of Last Stent Placement:: december 2020 Past Psychological History: Anxiety, Bipolar, Depression, PTSD Smoking Status: Current every day smoker Past Alcohol Use History: Abuse, Daily Past Drug Use History: None Reported - Past Family History Mother History Unknown: Yes Family Medical History: Hypertension Additional Family Medical History / Comment(s): Lupus. Mother is living. Father History Unknown: Yes Family Medical History: Liver Disease Additional Family Medical History / Comment(s): ETOH abuse. of cirrhosis complications. General Exam - General Exam Comments Initial Comments: PE: CONSTITUTIONAL: No apparent distress, ill-appearing, nontoxic SKIN: Warm, dry, no jaundice, hives or petechiae EYES: Pupils are equally round, extraocular movements intact without nystagmus, clear conjunctiva, non-icteric sclera HENT: Normocephalic, atraumatic, dry mucus membranes, oropharynx clear without exudates NECK: , Full range of motion, normal appearance PULMONARY: Clear to auscultation without wheezes, rhonchi, or rales, normal excursion, no accessory muscle use and no stridor CARDIOVASCULAR: Tachycardia, regular rhythm, normal S1 and S2. No appreciated murmurs, rubs or gallops. Strong radial pulses with intact distal perfusion. No lower extremity edema GASTROINTESTINAL: Soft, non-tender, non-distended, no palpable masses, no rebound or guarding. No hepatosplenomegaly MUSCULOSKELETAL: Extremities have no gross deformity, no edema, redness, or swelling. No calf swelling ot TTP. NEUROLOGIC:_a/o x 3, GCS 15, normal mentation and speech. Moves all extremities x 4 without motor or sensory deficit, slightly tremulous PSYCHIATRIC: Mildly anxious mood and affect, thought process is clear and linear Limitations: no limitations Course Vital Signs 02/24/24 02/24/24 02/24/24 19:14 22:43 22:50 Temperature 97.9 F Pulse Rate 101 H 107 H Respiratory 18 16 15 Rate Blood Pressure 121/87 113/83 99/74 O2 Sat by Pulse 97 96 94 L Oximetry 02/24/24 02/24/24 02/25/24 23:10 23:40 00:30 Temperature Pulse Rate 108 H 125 H 108 H Respiratory 17 16 13 Rate Blood Pressure 108/77 119/98 135/83 O2 Sat by Pulse 97 96 94 L Oximetry 02/25/24 02/25/24 02/25/24 00:42 01:30 02:30 Temperature Pulse Rate 106 H 106 H 101 H Respiratory 14 12 12 Rate Blood Pressure 110/77 110/76 111/83 O2 Sat by Pulse 94 L 95 94 L Oximetry 02/25/24 02/25/24 02/25/24 03:30 04:30 05:30 Temperature Pulse Rate 99 98 97 Respiratory 14 22 12 Rate Blood Pressure 123/85 126/89 131/88 O2 Sat by Pulse 95 94 L 94 L Oximetry Chest Pain MDM - MDM Was pt. sent in by a medical professional or institution (, PA, DIETETICS DIRECTOR, urgent care, hospital, or assisted...) When possible be specific @ -No Did you speak to anyone other than the patient for history (EMS, parent, family, police, friend...)? What history was obtained from this source @ -No Did you review nursing and triage notes (agree or disagree)? Why? @ -I reviewed and agree with nursing and triage notes Were old charts reviewed (outside hosp., previous admission, EMS record, old EKG, old radiological studies, urgent care reports/EKG's, assisted records)? Report findings @ - Patient presented on 01/31/2024 and was admitted for similar presentation today. Alcohol withdrawal as well as chest pain. History CAD with previous tenting, ischemic cardiomyopathy, COPD, paroxysmal A- fib, hypertension, hyperlipidemia. During previous visit troponin was 0.014 and 0.015 on repeat. Differential Diagnosis (chest pain, altered mental status, abdominal pain women, abdominal pain men, vaginal bleeding, weakness, fever, dyspnea, syncope, headache, dizziness, GI bleed, back pain, seizure, CVA, palpatations, mental health, musculoskeletal)? @ -Differential Chest Pain: Stable Angina, Unstable Angina, STEMI, NSTEMI, pericarditis, pleurisy, chostochondirits, Pneumothorax, Musculoskeletal, Esophageal Spasm GERD, Pancreatitis, this is not meant to be an all-inclusive list. EKG interpreted by me (3pts min.). @ -As above. Sinus tachycardia, heart rate 101 bpm, parable 137 ms, QT/QTc 419/477 ms, left axis deviation, no ST elevations or depressions, no arrhythmia CT interpreted by me (1pt min.). @ -None done U/S interpreted by me (1pt. min.). @ -None done What testing was considered but not performed or refused? (CT, X-rays, U/S, labs)? Why? @ -None What meds were considered but not given or refused? Why? @ -Considered benzodiazepine however patient will be admitted and I feel phen obarbital will be more beneficial to preventing delerium tremens and alcohol withdrawal seizures Did you discuss the management of the patient with other professionals (professionals i.e. , PA, DIETETICS DIRECTOR, lab, RT, psych nurse, executive secretary social welfare, singing messenger, teacher, international first officer, spring encaser)? Give summary @ -No Was smoking cessation discussed for >3mins.? @ -No Was critical care preformed (if so, how long)? @ -No Were there social determinants of health that impacted care today? How? (Homelessness, low income, unemployed, alcoholism, drug addiction, transportation, low edu. Level, literacy, decrease access to med. care, prison, rehab)? @ -Alcoholism Was there de-escalation of care discussed even if they declined (Discuss DNR or withdrawal of care, Hospice)? DNR status @ -No What co-morbidities impacted this encounter? (DM, HTN, Smoking, COPD, CAD, Cancer, CVA, ARF, Chemo, Hep., AIDS, mental health diagnosis, sleep apnea, morbid obesity)? @ -CAD, COPD, smoking Was patient admitted / discharged? Hospital course, mention meds given and route, prescriptions, significant lab abnormalities, going to OR and other pertinent info. @ -Hospital course Patient is a 58-year-old gentleman past medical history of chronic alcohol abuse, CAD, presenting today for chest pain and symptoms of alcohol withdrawal. On assessment patient is tremulous, in no acute distress chronically ill- appearing. Plan for chest pain workup, CIWA relatively low ~12, however anticipate admission for chest pain, so will give up to 260 mg phenobarbital and reassess. Ordered thiamine, multivitamin, IV fluids, sublingual nitroglycerin for chest pain. Patient received aspirin prior to arrival. Patient agreeable with plan. Troponin 0.044, Repeat troponin ordered. AST 92, lipase 40. Reviewed XR on my interpretation I see no conslidations, cardiomegaly, effusions or pneumothorax. Dilated gas filled bowel loops noted. Xray read by radiologist as "elevated diaphragm left greater than right, gas dilated bowel loops in the upper abdomen if concern for obstructive process consider CT, no evidence of acute cardiopulmonary process". Patient denies any abdominal pain, his abdomen is soft and nontender he is not having any episodes of nausea or vomiting, I do not suspect bowel obstruction at this point do not feel further imaging is indicated. On my reassessment patient states that his pain has largely improved. Tremors are much improved though still noted. Ordered 4 mg morphine, 4mg zofran, and additional dose 260 mg phenobarbital. Will admit to [facility] for further treatment. Patient agreeable with plan of care. Patient admitted to Dr. Condon in stable condition, repeat troponin pending. PRN ativan for alcohol withdrawal ordered. Undiagnosed new problem with uncertain prognosis? @ -No Drug Therapy requiring intensive monitoring for toxicity (Heparin, Nitro, Insulin, Cardizem)? @ -No Were any procedures done? @ -No Diagnosis/symptom? @ -Alcohol withdrawal, chest pain Acute, or Chronic, or Acute on Chronic? @ -Acute Uncomplicated (without systemic symptoms) or Complicated (systemic symptoms)? @ -Complicated Side effects of treatment? @ -No Exacerbation, Progression, or Severe Exacerbation? @ -No Poses a threat to life or bodily function? How? (Chest pain, [place], [place], pneumonia, PE, COPD, DKA, ARF, appy, cholecystitis, CVA, Diverticulitis, Homicidal, Suicidal, threat to staff... and all critical care pts) @ -Yes, potentially if chest pain secondary to ACS; if alcohol withdrawal or left untreated could progress to delirium tremens and Disposition Clinical Impression: Chest pain, Alcohol withdrawal Disposition: ADMITTED IP TO THIS HOSP Condition: Stable
[2024-02-24] MEDS: MAGNESIUM SULFATE-D5W PMX 1 GM in DEXTROSE/WATER 1 100ML.BAG IVPB SCH (21:01)
[2024-02-24] MEDS: MULTIVITAMINS, THERA 1 EACH TAB PO STA (21:02)
[2024-02-24] MEDS: THIAMINE 100 MG/ML 2 ML VIAL IM STA (21:03)
[2024-02-24] MEDS: PHENobarbital SODIUM 130 MG/ML 1 ML VIAL IV STA (21:04)
[2024-02-24] MEDS: FOLIC ACID 1 MG TAB PO STA (21:09)
[2024-02-24] MEDS: SODIUM CHLORIDE 0.9% 1,000 ML IV STA (21:11)
[2024-02-24] MEDS: NITROGLYCERIN SL TABS 0.4 MG TAB SUBLINGUAL SCH (21:15)
[2024-02-24 21:16] LABS: ALT 39 U/L (4-49); African American GFR (CKD) >90 (>60 ml/min/1.73 sqM); Albumin 4.5 g/dL (3.5-5.0); Amylase 53 U/L (30-110); Anion Gap 14 mmol/L; Blood Urea Nitrogen 14 mg/dL (9-20); Calcium 8.8 mg/dL (8.4-10.2); Carbon Dioxide 24 mmol/L (22-30); Chloride 104 mmol/L (98-107); Glucose 119 mg/dL (74-99); Lipase 40 U/L (23-300); Non-African American GFR(CKD) >90 (>60 ml/min/1.73 sqM); Sodium 142 mmol/L (137-145); Total Bilirubin 0.9 mg/dL (0.2-1.3); Total Protein 7.4 g/dL (6.3-8.2)
[2024-02-24 21:23] LABS: NT-Pro-B-Type Natriuretic Pept 486 pg/mL
[2024-02-24 21:48] LABS: Phosphorus 3.6 mg/dL (2.5-4.5); Potassium 4.4 mmol/L (3.5-5.1)
[2024-02-24 21:49] LABS: AST 92 U/L (17-59); Alkaline Phosphatase 81 U/L (38-126)
--- NOTE | 2024-02-25 00:21 | XR ---
EXAMINATION TYPE: XR chest 2V DATE OF EXAM: 02/24/2024 9:57 PM CLINICAL INDICATION:Male, 58 years old with history of Chest Pain; [facility] COMPARISON: 01/31/2024 TECHNIQUE: XR chest 2V. Frontal and lateral views of the chest.. FINDINGS: Lungs/Pleura: Elevated left diaphragm similar to prior studies. There is now mild elevation of the ri ght diaphragm as well. There is no evidence of pleural effusion, focal consolidation, or pneumothorax . Chronic senescent changes in both lungs. Pulmonary vascularity: Unremarkable. Heart/mediastinum: Stable cardiomediastinal silhouette. Heart appears enlarged. Aorta is mildly tort uous. Musculoskeletal: No acute osseous pathology. At least one remote right rib deformity. Mild degenerati ve changes of the thoracic spine. Other: Moderate gaseous distention of bowel seen beneath the diaphragm bilaterally. No free air is ochoa ggested. IMPRESSION: 1. Elevated diaphragm, left greater than right. 2. Gas dilated bowel loops partially seen in the upper abdomen. If concern for obstructive process f ollow-up CT abdomen may be obtained. 3. No evidence of acute cardiopulmonary process.
[2024-02-25] MEDS: MORPHINE SULFATE 4 MG/ML SYRINGE IVP STA (00:28)
[2024-02-25] MEDS: ONDANSETRON 4 MG/2 ML VIAL IVP STA (00:31)
[2024-02-25] MEDS: PHENobarbital SODIUM 130 MG/ML 1 ML VIAL IM STA (00:37)
[2024-02-25] MEDS ORDERED: NALOXONE 0.4 MG/ML 1 ML VIAL IV PRN (01:29)
[2024-02-25 01:44] LABS: Anisocytosis Slight; Basophils % (A) 1 %; Eosinophils # (A) 0.1 k/uL (0-0.7); Eosinophils % (A) 2 %; HCT 28.3 % (39.0-53.0); Hypochromasia Marked; Lymphocytes % (A) 17 %; MCHC 32.1 g/dL (31.0-37.0); MCV 84.2 fL (80.0-100.0); Mean Platelet Volume 7.9; Microcytosis Slight; Monocytes # (A) 0.5 k/uL (0-1.0); Monocytes % (A) 8 %; Neutrophils # (A) 4.1 k/uL (1.3-7.7); Neutrophils % (A) 69 %; Platelet Count 305 k/uL (150-450); RBC 3.36 m/uL (4.30-5.90); RDW 19.2 % (11.5-15.5)
[2024-02-25] MEDS ORDERED: MORPHINE SULFATE 4 MG/ML SYRINGE IV PRN (01:51)
[2024-02-25] MEDS ORDERED: ACETAMINOPHEN TAB 325 MG TAB PO PRN (01:51)
[2024-02-25] MEDS ORDERED: ONDANSETRON 4 MG/2 ML VIAL IVP PRN (01:52)
[2024-02-25 01:54] LABS: HGB 9.1 gm/dL (13.0-17.5)
[2024-02-25] MEDS ORDERED: LORazepam 1 MG TAB PO PRN ×3 (01:54)
[2024-02-25] MEDS ORDERED: LORazepam 0.5 MG TAB PO PRN (01:54)
[2024-02-25 02:19] LABS: INR 0.9 (<1.2); Partial Thromboplastin Time 23.9 sec (22.0-30.0); Prothrombin Time 10.2 sec (10.0-12.5)
[2024-02-25] MEDS ORDERED: NITROGLYCERIN SL TABS 0.4 MG TAB SUBLINGUAL PRN (03:11)
[2024-02-25] MEDS: AMIODARONE 200 MG TAB PO SCH (03:33)
[2024-02-25] MEDS: DEXTROSE 5%-0.45% NACL 1,000 ML IV SCH (03:35)
[2024-02-25] MEDS: HEPARIN SOD,PORK IN 0.45% NACL 25,000 UNIT in 0.45% NACL 1 250ML.BAG IV SCH (04:45)
[2024-02-25] MEDS: HEPARIN SODIUM 1,000 UN/ML (10ML VL) IV ONE (04:46)
[2024-02-25 05:43] VITALS: BP 131/88; PULSE 97; RESP 12
[2024-02-25] MEDS: LORazepam 1 MG TAB PO PRN (05:44)
[2024-02-25] MEDS ORDERED: MULTIVITAMINS, THERA 1 EACH TAB PO SCH (09:00)
[2024-02-25] MEDS ORDERED: METOPROLOL SUCCINATE (ER) 25 MG TAB.ER.24H PO SCH (09:00)
[2024-02-25] MEDS ORDERED: NICOTINE 21MG/24HR PATCH TRANSDERM SCH (09:00)
[2024-02-25] MEDS ORDERED: FAMOTIDINE 20 MG TAB PO SCH (09:00)
[2024-02-25] MEDS ORDERED: APIXABAN 5 MG TAB PO SCH (09:00)
[2024-02-25] MEDS ORDERED: ASPIRIN 81 MG PO SCH (09:00)
[2024-02-25] MEDS ORDERED: FOLIC ACID 1 MG TAB PO SCH (09:00)
[2024-02-25] MEDS ORDERED: AMIODARONE 200 MG TAB PO SCH (09:00)
[2024-02-25] MEDS ORDERED: PANTOPRAZOLE 40 MG TABLET PO SCH (09:00)
[2024-02-25] MEDS ORDERED: MULTIVITAMINS, THERA 1 EACH TAB ONE (13:43)
[2024-02-25] MEDS ORDERED: ASPIRIN 81 MG ONE (13:43)
[2024-02-25] MEDS ORDERED: FAMOTIDINE 20 MG TAB ONE (13:43)
[2024-02-25] MEDS ORDERED: METOPROLOL SUCCINATE (ER) 25 MG TAB.ER.24H PO ONE (13:44)
[2024-02-25] MEDS ORDERED: FOLIC ACID 1 MG TAB ONE (13:44)
[2024-02-25] MEDS ORDERED: PANTOPRAZOLE 40 MG TABLET PO ONE (13:44)
[2024-02-25] MEDS ORDERED: NICOTINE 21MG/24HR PATCH TRANSDERM ONE (13:44)
[2024-02-25] MEDS ORDERED: HEPARIN SODIUM 1,000 UN/ML (10ML VL) ONE (15:09)
[2024-02-25] MEDS ORDERED: ATORVASTATIN 80 MG TAB PO SCH (21:00)
[2024-02-26] MEDS ORDERED: HEPARIN SOD,PORK IN 0.45% NACL 250 ML IV ONE (06:24)
[2024-02-26] MEDS ORDERED: MORPHINE SULFATE 4 MG/ML SYRINGE ONE (07:31)
[2024-02-26] MEDS ORDERED: THIAMINE 100 MG TAB PO SCH (09:00)
[2024-02-26] MEDS ORDERED: ATORVASTATIN 80 MG TAB ONE (19:32)
[2024-02-26] MEDS ORDERED: FAMOTIDINE 20 MG TAB ONE (19:32)
[2024-02-26] MEDS ORDERED: HEPARIN SODIUM,PORCINE 5,000 UNIT/ML 1 ML VIAL ONE (19:33)
[2024-02-27] MEDS ORDERED: ASPIRIN 81 MG ONE (08:36)
[2024-02-27] MEDS ORDERED: PANTOPRAZOLE 40 MG TABLET PO ONE (08:36)
[2024-02-27] MEDS ORDERED: METOPROLOL SUCCINATE (ER) 25 MG TAB.ER.24H PO ONE (08:37)
[2024-02-27] MEDS ORDERED: MULTIVITAMINS, THERA 1 EACH TAB ONE (08:37)
[2024-02-27] MEDS ORDERED: FAMOTIDINE 20 MG TAB ONE (08:37)
[2024-02-27] MEDS ORDERED: AMIODARONE 200 MG TAB ONE (08:37)
[2024-02-27] MEDS ORDERED: NICOTINE 21MG/24HR PATCH TRANSDERM ONE (08:37)
[2024-02-27] MEDS ORDERED: HEPARIN SODIUM,PORCINE 5,000 UNIT/ML 1 ML VIAL ONE (08:37)
[2024-02-27] MEDS ORDERED: FOLIC ACID 1 MG TAB ONE (08:37)
[2024-02-27] MEDS ORDERED: APIXABAN 5 MG TAB ONE (08:38)
== END 2024-02-27 16:57 | disposition home or self-care (01) | DRG 897 ==
LOC: EC 19:08 → 3SCARD 02-25 01:29
PROVIDERS: ADMIT Hospitalist; ATTEND Hospitalist
DX: F10.239 Alcohol dependence with withdrawal, unspecified (principal); F10.229 Alcohol dependence with intoxication, unspecified; R07.89 Other chest pain; I25.5 Ischemic cardiomyopathy; I48.0 Paroxysmal atrial fibrillation; M41.9 Scoliosis, unspecified; J44.9 Chronic obstructive pulmonary disease, unspecified; E78.5 Hyperlipidemia, unspecified; I10 Essential (primary) hypertension; I25.10 Atherosclerotic heart disease of native coronary artery without angina pectoris; F17.200 Nicotine dependence, unspecified, uncomplicated; G89.29 Other chronic pain; F32.A Depression, unspecified; F41.9 Anxiety disorder, unspecified; Z79.01 Long term (current) use of anticoagulants; Z79.82 Long term (current) use of aspirin; Z79.899 Other long term (current) drug therapy; Z95.5 Presence of coronary angioplasty implant and graft; Z98.84 Bariatric surgery status; Z82.49 Family history of ischemic heart disease and other diseases of the circulatory system; I25.2 Old myocardial infarction
CPT/HCPCS: 36415; 71046; 80053; 82150; 83690; 83880; 84100; 84484; 85025; 85610; 85730; 93005; 96361; 96365; 96366; 96372; 96375; 99285

== ENCOUNTER 2024-03-01 16:30 | Observation (INO) | payer MEDICARE, OTHER ==
[~2024-03-01 16:30] MED LIST changes: +LORazepam 2 MG/ML INJ ONE; -TICAGRELOR 90 MG TAB PO ONE
[2024-03-01] MEDS ORDERED: APIXABAN 5 MG TAB ONE (20:56)
[2024-03-01] MEDS ORDERED: MAGNESIUM SULFATE-D5W PMX 200 ML IVPB ONE (20:56)
[2024-03-02] MEDS ORDERED: HYDROcodone/APAP 5-325MG 1 EACH TAB ONE ×2 (02:44→08:48)
[2024-03-02] MEDS ORDERED: LORazepam 2 MG/ML INJ ONE (04:55)
[2024-03-02] MEDS ORDERED: APIXABAN 5 MG TAB ONE ×2 (08:49→20:34)
[2024-03-02] MEDS ORDERED: NICOTINE 21MG/24HR PATCH TRANSDERM ONE (08:49)
[2024-03-02] MEDS ORDERED: ASPIRIN 81 MG ONE (08:49)
[2024-03-02] MEDS ORDERED: AMIODARONE 200 MG TAB ONE (08:56)
[2024-03-02] MEDS ORDERED: PANTOPRAZOLE 40 MG TABLET PO ONE (08:56)
[2024-03-02] MEDS ORDERED: THIAMINE 100 MG TAB ONE (08:56)
[2024-03-02] MEDS ORDERED: METOPROLOL SUCCINATE (ER) 25 MG TAB.ER.24H PO ONE (08:57)
[2024-03-02] MEDS ORDERED: DULoxetine HCL 60 MG CAPSULE.DR PO ONE (08:57)
[2024-03-02] MEDS ORDERED: ATORVASTATIN 80 MG TAB ONE (20:34)
[2024-03-03] MEDS ORDERED: AMIODARONE 200 MG TAB ONE (08:13)
[2024-03-03] MEDS ORDERED: PANTOPRAZOLE 40 MG TABLET PO ONE (08:14)
[2024-03-03] MEDS ORDERED: DULoxetine HCL 60 MG CAPSULE.DR PO ONE (08:14)
[2024-03-03] MEDS ORDERED: METOPROLOL TARTRATE 25 MG TAB ONE ×2 (08:14→08:18)
[2024-03-03] MEDS ORDERED: NICOTINE 21MG/24HR PATCH TRANSDERM ONE (08:14)
[2024-03-03] MEDS ORDERED: THIAMINE 100 MG TAB ONE ×2 (08:14→08:19)
[2024-03-03] MEDS ORDERED: ASPIRIN 81 MG ONE (08:14)
[2024-03-03] MEDS ORDERED: APIXABAN 5 MG TAB ONE ×2 (08:15→22:04)
[2024-03-03] MEDS ORDERED: ACETAMINOPHEN TAB 325 MG TAB ONE (08:16)
[2024-03-03] MEDS ORDERED: HYDROcodone/APAP 5-325MG 1 EACH TAB ONE (22:03)
[2024-03-03] MEDS ORDERED: ATORVASTATIN 80 MG TAB ONE (22:04)
[2024-03-03] MEDS ORDERED: OLANZapine 7.5 MG TAB ONE (23:59)
[2024-03-04] MEDS ORDERED: ASPIRIN 81 MG ONE (09:31)
[2024-03-04] MEDS ORDERED: NICOTINE 21MG/24HR PATCH TRANSDERM ONE (09:32)
[2024-03-04] MEDS ORDERED: METOPROLOL SUCCINATE (ER) 25 MG TAB.ER.24H PO ONE (09:32)
[2024-03-04] MEDS ORDERED: THIAMINE 100 MG TAB ONE (09:32)
[2024-03-04] MEDS ORDERED: APIXABAN 5 MG TAB ONE (09:32)
--- NOTE | 2024-03-31 12:14 | CT ---
Site ID [facility] Patient Jonathan Parsons ID [id number] EXAMINATION TYPE: CT brain cspine wo con CT DLP: 1580 mGycm, Automated exposure control for dose reduction was used. DATE OF EXAM: 03/01/2024 4:01 PM COMPARISON: THIS EXAM WAS READ DURING PACS DOWNTIME, NO PRIORS AVAILABLE. CLINICAL INDICATION: Fall, head injury. TECHNIQUE: Brain: Multiple axial CT images of the brain were obtained without IV contrast. Cspine: Axial CT images from the skull base to the inferior aspect of T2 we obtained without intraven ous contrast. Coronal and sagittal reformatted images were also reviewed. . FINDINGS: Brain: Extra-axial spaces: No abnormal extra-axial fluid collections. Ventricular system: Dilatation in proportion to cerebral atrophy. Cerebral parenchyma: Cerebral atrophy. No acute intraparenchymal hemorrhage or mass effect. The mejias -white junction is well differentiated. Scattered hypoattenuating areas are seen within the white mat ter. Cerebellum: Unremarkable. Mass effect: No evidence of midline shift. Intracranial vasculature: Atherosclerotic calcifications of the intracranial vessels. Soft tissues: Normal. Calvarium/osseous structures: No depressed skull fracture. Paranasal sinuses and mastoid air cells: Mild scattered mucosal thickening and or secretions. Visualized orbits: Orbital contents are intact. Cervical spine: Fracture: None. Osseous structures: Multilevel degenerative disc disease changes with endplate spurring and disc oste ophyte complex's. Vertebral alignment: Within normal limits. Spinal canal/Neural Foramina: Disc osteophyte complexes at C2 C3 C3 C4 C4 C5. With at least mild spin al canal stenosis. No evidence for significant neural foraminal stenosis. Neck soft tissues: Prevertebral soft tissues are within normal limits. Other: The airway is patent. The lung apices are clear. IMPRESSION: 1. No acute intracranial process. 2. Nonspecific white matter changes, likely secondary to chronic small vessel ischemic disease. 3. No evidence of cervical spine fracture. 4. Mild multilevel degenerative disc disease.
--- NOTE | 2024-04-07 13:47 | XR ---
Site ID [facility] Patient Jonathan Parsons ID [id number] EXAMINATION TYPE: XR chest 1V DATE OF EXAM: 03/01/2024 4:11 PM CLINICAL INDICATION: Trauma COMPARISON: THIS EXAM WAS READ DURING PACS DOWNTIME, NO PRIORS AVAILABLE. TECHNIQUE: XR chest 1V Frontal view of the chest. FINDINGS: Lungs/Pleura: Elevated left diaphragm with possible hernia. There is no evidence of pleural effusion, focal consolidation, or pneumothorax. Pulmonary vascularity: Unremarkable. Heart/mediastinum: Cardiomediastinal silhouette is unremarkable. Musculoskeletal: No acute osseous pathology. Right-sided rib injuries. Other findings: None IMPRESSION: 1. Right-sided rib deformity correlate for acute fracture with pain. 2. Elevated left diaphragm with possible hernia.
== END 2024-03-04 18:38 | disposition home or self-care (01) ==
LOC: 3SCARD 16:30
PROVIDERS: ADMIT Student in an Organized Health Care Education/Training Program; ATTEND Student in an Organized Health Care Education/Training Program
DX: R55 Syncope and collapse (principal); R07.89 Other chest pain; I25.5 Ischemic cardiomyopathy; F10.230 Alcohol dependence with withdrawal, uncomplicated; I48.0 Paroxysmal atrial fibrillation; I48.92 Unspecified atrial flutter; E83.42 Hypomagnesemia; R79.89 Other specified abnormal findings of blood chemistry; I25.10 Atherosclerotic heart disease of native coronary artery without angina pectoris; I10 Essential (primary) hypertension; E78.5 Hyperlipidemia, unspecified; B88.0 Other acariasis; R07.81 Pleurodynia; S22.31XA Fracture of one rib, right side, initial encounter for closed fracture; R51.9 Headache, unspecified; W19.XXXA Unspecified fall, initial encounter; F17.210 Nicotine dependence, cigarettes, uncomplicated; Z79.82 Long term (current) use of aspirin; Z79.01 Long term (current) use of anticoagulants; Z79.899 Other long term (current) drug therapy; Z95.5 Presence of coronary angioplasty implant and graft
CPT/HCPCS: 70450; 71045; 72125; 93306; 96374; 99285

== ENCOUNTER 2024-04-05 01:00 | Inpatient (IN) | payer MEDICARE, MEDICAID ==
--- NOTE | 2024-04-05 03:09 | ED ---
Psych HPI <Jonathan Perez - Last Filed: 04/05/24 15:05> - General Source: EMS Mode of arrival: EMS <Rula Kenny - Last Filed: 04/16/24 22:50> - General Chief Complaint: Psychiatric Symptoms Stated Complaint: petition Time Seen by Provider: 04/05/24 01:44 - History of Present Illness Initial Comments: 58-year-old male presents emergency department with a petition. He had called police stating that he was going to kill himself. Patient has plans of taking all of his medications. He reports that he has attempted 3 previous times. Reports that he ended up on a ventilator due to overdose. He states that he drank to try and drink himself to . He also reported that he was going to slit his throat. Patient denies any drug use. No homicidal ideations. Pain, precipitating or modifying factors (Rula Kenny) - Related Data Home Medications Medication Instructions Recorded Confirmed Atorvastatin [Lipitor] 80 mg PO DIRECTED 03/30/21 04/15/24 Omeprazole [PriLOSEC] 20 mg PO DIRECTED 12/06/22 04/15/24 Amiodarone [Cordarone] 200 mg PO DIRECTED 06/28/23 04/15/24 DULoxetine HCL [Cymbalta] 60 mg PO DIRECTED 06/28/23 04/15/24 Apixaban [Eliquis] 5 mg PO DIRECTED 10/04/23 04/15/24 Aspirin 81 mg PO DIRECTED 01/31/24 04/15/24 Metoprolol Succinate (ER) [Toprol 25 mg PO DIRECTED 02/25/24 04/15/24 XL] Previous Rx's Medication Instructions Recorded Nitroglycerin Sl Tabs [Nitrostat] 0.4 mg SUBLINGUAL Q5M PRN #20 tab 02/01/24 ARIPiprazole [Abilify] 10 mg PO DAILY 15 Days #15 tab 04/10/24 Albuterol Inhaler [Ventolin Hfa 2 puff INHALATION RT-QID PRN each 04/10/24 Inhaler] metFORMIN HCL [Glucophage] 500 mg PO BID-W/MEALS 15 Days #30 04/10/24 tab Allergies Allergy/AdvReac Type Severity Reaction Status Date / Time Iodinated Contrast Media Allergy Itching-see Verified 04/15/24 08:21 comment fentanyl AdvReac Itching Verified 04/15/24 08:21 Review of Systems ROS Other: All systems not noted in ROS Statement are negative. <Jonathan Perez - Last Filed: 04/05/24 15:05> ROS Other: All systems not noted in ROS Statement are negative. <Rula Kenny Katarzyna - Last Filed: 04/16/24 22:50> ROS Statement: Those systems with pertinent positive or pertinent negative responses have been documented in the HPI. Past Medical History Past Medical History: COPD, GERD/Reflux, GI Bleed, Hypertension, Myocardial Infarction ([place]), Pneumonia, Skin Disorder Additional Past Medical History / Comment(s): ETOH abuse with delirium tremors, lower GI bleed, IBS, chronic iron deficiency anemia, hypomagnesemia, hyperbilirubinemia, anorexia, vertigo, nephrolithiasis-passed stone on his own, chronic low back/cervical pain, DDD, kyphosis, scoliosis, coccyx pressure ulcer pt states is mostly healed. Dry and itchy skin back in high school. 2 heart lindsay cks, one in December (2020) second in February (2020). Last Myocardial Infarction Date:: june 2023 History of Any Multi-Drug Resistant Organisms: None Reported Past Surgical History: Bariatric Surgery, Heart Catheterization With Stent, Hernia Repair, Orthopedic Surgery, Tonsillectomy Additional Past Surgical History / Comment(s): Right inner Forearm-metal plate, gastric bypass, incisional hernia surgery x2, EGDs, colonoscopies. 2 Stents placed in December 2020; bilateral knee surgeries Past Anesthesia/Blood Transfusion Reactions: No Reported Reaction Date of Last Stent Placement:: december 2020 Past Psychological History: Anxiety, Bipolar, Depression, PTSD Smoking Status: Current every day smoker Past Alcohol Use History: Abuse, Daily Past Drug Use History: None Reported - Past Family History Mother History Unknown: Yes Family Medical History: Hypertension Additional Family Medical History / Comment(s): Lupus. Mother is living. Father History Unknown: Yes Family Medical History: Liver Disease Additional Family Medical History / Comment(s): ETOH abuse. of cirrhosis complications. <Ag Kennyah Katarzyna - Last Filed: 04/16/24 22:50> General Exam General appearance: alert, in no apparent distress Head exam: Present: atraumatic, normocephalic, normal inspection Eye exam: Present: normal appearance, PERRL, EOMI. Absent: scleral icterus, con junctival injection, periorbital swelling ENT exam: Present: normal exam, mucous membranes moist Neck exam: Present: normal inspection. Absent: tenderness, meningismus, lymphadenopathy Respiratory exam: Present: normal lung sounds bilaterally. Absent: respiratory distress, wheezes, rales, rhonchi, stridor Cardiovascular Exam: Present: regular rate, normal rhythm, normal heart sounds. Absent: systolic murmur, diastolic murmur, rubs, gallop, clicks GI/Abdominal exam: Present: soft, normal bowel sounds. Absent: distended, tenderness, guarding, rebound, rigid Extremities exam: Present: normal inspection, full ROM, normal capillary refill. Absent: tenderness, pedal edema, joint swelling, calf tenderness Back exam: Present: normal inspection Neurological exam: Present: alert, oriented X3, CN II-XII intact Psychiatric exam: Present: depressed Skin exam: Present: warm, dry, intact, normal color. Absent: rash <Rula Kenny - Last Filed: 04/16/24 22:50> Course Vital Signs 04/05/24 04/05/24 04/05/24 01:10 07:10 18:17 Temperature 97.9 F Pulse Rate 92 104 H Pulse Rate [ 98 Right Sitting] Respiratory 18 18 18 Rate Blood Pressure 115/76 110/66 Blood Pressure 127/74 [Right Arm Sitting] O2 Sat by Pulse 96 96 98 Oximetry Medical Decision Making - EKG Data -: EKG Interpreted by Me <Jonathan Perez - Last Filed: 04/05/24 15:05> - Lab Data Result diagrams: 04/06/24 10:39 04/06/24 10:39 <Rula Kenny - Last Filed: 04/16/24 22:50> - Medical Decision Making Patient was medically cleared by previous provider pending psychiatric evaluation. I spoke with KYM Kenny who determined patient does meet inpatient criteria. They did request EKG be completed which was done. I evaluated EKG and showed no signs of acute ischemia and is similar to previous EKGs from February 2024 in January 2024. Patient will be admitted to inpatient psychiatry. Diagnosis/symptom? @ -Suicidal ideation Acute, or Chronic, or Acute on Chronic? @ -Acute Uncomplicated (without systemic symptoms) or Complicated (systemic symptoms)? @ -Complicated Side effects of treatment? @ -None Exacerbation, Progression, or Severe Exacerbation] @ -No Poses a threat to life or bodily function? @ -Potentially, yes (Jonathan Perez) Was pt. sent in by a medical professional or institution (, TRACEY, PNEUMATIC TUBE OPERATOR, urgent care, hospital, or shelter...) When possible be specific @ -[No] Did you speak to anyone other than the patient for history (EMS, parent, family, police, friend...)? What history was obtained from this source @ -Spoke with EMS for history Did you review nursing and triage notes (agree or disagree)? Why? @ -[I reviewed and agree with nursing and triage notes] Were old charts reviewed (outside hosp., previous admission, EMS record, old EKG, old radiological studies, urgent care reports/EKG's, shelter records)? Report findings @ -[No old charts were reviewed] Differential Diagnosis (chest pain, altered mental status, abdominal pain women, abdominal pain men, vaginal bleeding, weakness, fever, dyspnea, syncope, headache, dizziness, GI bleed, back pain, seizure, CVA, palpatations, mental health, musculoskeletal)? @ -Differential Mental Health Depression, anxiety, bipolar, psychosis, schizophrenia, borderline personality, situational depression, adjustment disorder, behavioral disorder, brain tumor, malingering, substance abuse, encephalopathy, medication reaction, dementia, hypothyroidism, degenerative neurologic disorder, lupus.... This is not meant to be all-inclusive list EKG interpreted by me (3pts min.). @ -Not done X-rays interpreted by me (1pt min.). @ -[None done] CT interpreted by me (1pt min.). @ -[None done] U/S interpreted by me (1pt. min.). @ -[None done] What testing was considered but not performed or refused? (CT, X-rays, U/S, labs)? Why? @ -[None] What meds were considered but not given or refused? Why? @ -[None] Did you discuss the management of the patient with other professionals (professionals i.e. , TRACEY, PNEUMATIC TUBE OPERATOR, lab, RT, psych nurse, elementary school social worker, air conditioning service technician, teacher, homicide squad commanding officer, case management rn)? Give summary @ -Spoke with the EPS who will evaluate the patient in the morning Was smoking cessation discussed for >3mins.? @ -[No] Was critical care preformed (if so, how long)? @ -[No] Were there social determinants of health that impacted care today? How? (Homelessness, low income, unemployed, alcoholism, drug addiction, transportation, low edu. Level, literacy, decrease access to med. care, custodial, rehab)? @ -[No] Was there de-escalation of care discussed even if they declined (Discuss DNR or withdrawal of care, Hospice)? DNR status @ -[No] What co-morbidities impacted this encounter? (DM, HTN, Smoking, COPD, CAD, Cancer, CVA, ARF, Chemo, Hep., AIDS, mental health diagnosis, sleep apnea, morbid obesity)? @ -Depression Was patient admitted / discharged? Hospital course, mention meds given and route, prescriptions, significant lab abnormalities, going to OR and other pertinent info. @ -Upon arrival patient seen and evaluated in room 8. Thorough history and physical exam was performed. Patient is medically cleared. EPS unavailable until the a.m. Patient will be signed out to Dr. Perez. He is made aware that the patient is very high risk (Rula Kenny) - Lab Data Lab Results 04/05/24 04/05/24 04/05/24 Range/Units 08:01 08:01 08:01 Urine Color Dark Brown Urine Appearance Turbid (Clear) Urine pH 5.5 (5.0-8.0) Ur Specific [place] 1.018 (1.001-1.035) Urine Protein 1+ H (Negative) Urine Glucose (UA) Negative (Negative) Urine Ketones Trace H (Negative) Urine Blood Large H (Negative) Urine Nitrite Negative (Negative) Urine Bilirubin Negative (Negative) Urine Urobilinogen <2.0 (<2.0) mg/dL Ur Leukocyte Esterase Small H (Negative) Urine RBC >182 H (0-5) /hpf Urine WBC 18 H (0-5) /hpf Ur Squamous Epith Cells 4 (0-4) /hpf Amorphous Sediment Many H (None) /hpf Urine Mucus Many H (None) /hpf Urine Opiates Screen Not Detected (NotDetected) Ur Oxycodone Screen Not Detected (NotDetected) Urine Methadone Screen Not Detected (NotDetected) Ur Barbiturates Screen Not Detected (NotDetected) U Tricyclic Antidepress Not Detected (NotDetected) Ur Phencyclidine Scrn Not Detected (NotDetected) Ur Amphetamines Screen Not Detected (NotDetected) U Methamphetamines Scrn Not Detected (NotDetected) U Benzodiazepines Scrn Not Detected (NotDetected) Urine Cocaine Screen Not Detected (NotDetected) U Marijuana (THC) Screen Not Detected (NotDetected) SARS-CoV-2 (PCR) Not Detected (Not Detectd) - EKG Data EKG Comments: 12-lead Electrocardiogram Interpretation Note EKG was reviewed and interpreted by myself. 12-lead ECG performed at 1456 is interpreted by me as revealing sinus tachycardia at a rate of 105 beats per minute. Rankin is normal. NM interval is 126 ms, QRS duration is 125 ms, QTc is 468 ms.. There were no ST or T wave abnormalities to suggest myocardial ischem ia or injury. R wave progression across the precordium was satisfactory. By my interpretation this EKG is non-diagnostic for acute ischemia. Compared with EKG from February 2024 and January 2024 with no significant change. (Jonathan Perez) Disposition <Jonathan Perez - Last Filed: 04/05/24 15:05> <Rula Kenny - Last Filed: 04/16/24 22:50> Clinical Impression: Suicidal ideation Disposition: TRANSFER TO PSYCH HOSP/UNIT
[2024-04-05 08:37] LABS: Amphetamine Screen,Urine Not Detected (NotDetected); Barbiturate Screen,Urine Not Detected (NotDetected); Benzodiazepines Screen,Urine Not Detected (NotDetected); Cocaine Screen,Urine Not Detected (NotDetected); Methadone Screen, Urine Not Detected (NotDetected); Opiate Screen,Urine Not Detected (NotDetected); Oxycodone Screen, Urine Not Detected (NotDetected); Phencyclidine Screen,Urine Not Detected (NotDetected); Tricyclic Antidepressant,Urine Not Detected (NotDetected); Urn Cannabinoid Scrn Not Detected (NotDetected)
[2024-04-05] MEDS ORDERED: ACETAMINOPHEN TAB 325 MG TAB PO PRN (17:47)
[2024-04-05] MEDS ORDERED: LORazepam 1 MG TAB PO PRN (17:47)
[2024-04-05] MEDS ORDERED: MAGNESIUM HYDROXIDE 2,400 MG/30 ML CUP PO PRN (17:47)
[2024-04-05] MEDS ORDERED: IBUPROFEN 600 MG TAB PO PRN (17:47)
[2024-04-05] MEDS ORDERED: MAG HYDROX/AL HYDROX/SIMETH 355 ML BOTTLE PO PRN (17:47)
[2024-04-05] MEDS ORDERED: NITROGLYCERIN SL TABS 0.4 MG TAB SUBLINGUAL PRN (17:50)
[2024-04-05] MEDS: ASPIRIN 81 MG PO SCH (18:42)
[2024-04-05] MEDS: METOPROLOL SUCCINATE (ER) 25 MG TAB.ER.24H PO SCH (18:42)
[2024-04-05] MEDS: AMIODARONE 200 MG TAB PO SCH (18:42)
[2024-04-05] MEDS: DULoxetine HCL 60 MG CAPSULE.DR PO SCH (18:42)
[2024-04-05] MEDS: LORazepam 1 MG TAB PO PRN (18:43)
[2024-04-05] MEDS: PANTOPRAZOLE 40 MG TABLET PO SCH (18:53)
[2024-04-05 19:46] LABS: Amorphous Sediment,Urine Many /hpf; Appearance,Urine Turbid (Clear); Bilirubin,Urine Negative (Negative); Blood,Urine Large (Negative); Color,Urine Dark Brown; Glucose,Urine (UA) Negative (Negative); Ketones,Urine Trace (Negative); Leukocyte Esterase,Urine Small (Negative); Mucus,Urine Many /hpf; Nitrite,Urine Negative (Negative); PH, Urine 5.5 (5.0-8.0); Protein,Urine 1+ (Negative); RBC,Urine >182 /hpf (0-5); Specific Gravity,Urine 1.018 (1.001-1.035); Squamous Epithelial Cell,Urine 4 /hpf (0-4); Urobilinogen,Urine <2.0 mg/dL (<2.0); WBC,Urine 18 /hpf (0-5)
[2024-04-05] MEDS: ATORVASTATIN 80 MG TAB PO SCH (21:19)
[2024-04-05] MEDS: APIXABAN 5 MG TAB PO SCH (21:19)
[2024-04-06] MEDS: NICOTINE 14MG/24HR PATCH TRANSDERM SCH (08:05)
--- NOTE | 2024-04-06 10:34 | P.HP ---
Psychiatric H&P - . H&P Date: 04/06/24 History & Physical: Allergies Allergy/AdvReac Type Severity Reaction Status Date / Time Iodinated Contrast Media Allergy Itching-see Verified 02/24/24 19:29 comment fentanyl AdvReac Itching Verified 02/24/24 19:29 Vital Signs Temp 97.9 F 04/05/24 18:17 Pulse 102 H 04/06/24 08:06 Resp 18 04/05/24 18:17 BP 113/74 04/06/24 08:06 Pulse Ox 98 04/05/24 18:17 FiO2 Intake & Output 04/05/24 04/06/24 04/06/24 18:59 06:59 18:59 Weight 80.3 kg Laboratory Last Values Urine Color Dark Brown 04/05/24 08:01 Urine Appearance Turbid (Clear) 04/05/24 08:01 Urine pH 5.5 (5.0-8.0) 04/05/24 08:01 Ur Specific [place] 1.018 (1.001-1.035) 04/05/24 08:01 Urine Protein 1+ (Negative) H 04/05/24 08:01 Urine Glucose (UA) Negative (Negative) 04/05/24 08:01 Urine Ketones Trace (Negative) H 04/05/24 08:01 Urine Blood Large (Negative) H 04/05/24 08:01 Urine Nitrite Negative (Negative) 04/05/24 08:01 Urine Bilirubin Negative (Negative) 04/05/24 08:01 Urine Urobilinogen <2.0 mg/dL (<2.0) 04/05/24 08:01 Ur Leukocyte Esterase Small (Negative) H 04/05/24 08:01 Urine RBC >182 /hpf (0-5) H 04/05/24 08:01 Urine WBC 18 /hpf (0-5) H 04/05/24 08:01 Ur Squamous Epith Cells 4 /hpf (0-4) 04/05/24 08:01 Amorphous Sediment Many /hpf (None) H 04/05/24 08:01 Urine Mucus Many /hpf (None) H 04/05/24 08:01 Urine Opiates Screen Not Detected (NotDetected) 04/05/24 08:01 Ur Oxycodone Screen Not Detected (NotDetected) 04/05/24 08:01 Urine Methadone Screen Not Detected (NotDetected) 04/05/24 08:01 Ur Barbiturates Screen Not Detected (NotDetected) 04/05/24 08:01 U Tricyclic Antidepress Not Detected (NotDetected) 04/05/24 08:01 Ur Phencyclidine Scrn Not Detected (NotDetected) 04/05/24 08:01 Ur Amphetamines Screen Not Detected (NotDetected) 04/05/24 08:01 U Methamphetamines Scrn Not Detected (NotDetected) 04/05/24 08:01 U Benzodiazepines Scrn Not Detected (NotDetected) 04/05/24 08:01 Urine Cocaine Screen Not Detected (NotDetected) 04/05/24 08:01 U Marijuana (THC) Screen Not Detected (NotDetected) 04/05/24 08:01 SARS-CoV-2 (PCR) Not Detected (Not Detectd) 04/05/24 08:01 04/06/24 08:54 IDENTIFYING DATA: Patient is a 58-year-old male who collects SSI who is presenting with suicidal ideation and alcohol use. HPI: Patient was brought into the ED with a petition because he called the police on himself due to suicidal ideation. Patient reported suicidal ideation with a plan to cut his throat or overdose on medications. He also expressed concerns about a "cyber stalker" that has been "making my life miserable" for the past week. Patient reports feeling more depressed for the past 3 weeks. stresses include history of trauma that he is recalling more and concerns about a "cyber stalker" that is interfering with his purchases and finances. He says that I is investigating this but keeps asking him to provide proof of his concerns. He endorses suicidal ideation with plan to overdose with alcohol "because with my other medications and alcohol..." he insinuates awareness that it could be lethal. He reports drinking 0.5 gallon of vodka on 04/03 and 04/04. Prior to this, he reports sobriety for one month. Over the past 3 weeks, he reports fluctuating from trouble sleeping to hypersomnia. He endorses low energy, fair concentration, poor motivation, anhedonia, and good appetite. He expresses thoughts of worthlessness. Patient self-reports consult of diagnosis of bipolar disorder in the past. However, he expresses a long history of impulsive decision making that lasted for numerous years that he is constituting as darci. He also has a long history of substance use including opiate use, cannabis use, alcohol use. Patient states that his last "manic episode" was in 2017 when he decided to speak with a woman online but denies other symptoms consistent with darci at the time. Patient currently endorses suicidal ideation. He denies homicidal ideation. He denies access to guns or firearms. He denies auditory and visual hallucinations. PSYCH HX: Patient states that he has a history of bipolar, depression and alcohol use. Patient's last psychiatric hospitalization was on 03/2020. Patient was on Lamictal and Cymbalta and has recently been off these medications. He currently follows up at [facility] and his therapist and follows up with a nurse practitioner there. He reports having "tardive dyskinesia "on Risperdal. He says that Seroquel made him very sleepy. Patient reports 3 prior suicide attempts by overdose on medications and alcohol. PMH: Past Medical History: COPD, GERD/Reflux, GI Bleed, Hypertension, Myocardial Infarction ([place]), Pneumonia, Skin Disorder Additional Past Medical History / Comment(s): ETOH abuse with delirium tremors, lower GI bleed, IBS, chronic iron deficiency anemia, hypomagnesemia, hyperbilirubinemia, anorexia, vertigo, nephrolithiasis-passed stone on his own, chronic low back/cervical pain, DDD, kyphosis, scoliosis, coccyx pressure ulcer pt states is mostly healed. Dry and itchy skin back in high school. 2 heart attacks, one in December (2020) second in February (2020). Last Myocardial Infarction Date:: june 2023 History of Any Multi-Drug Resistant Organisms: None Reported Past Surgical History: Bariatric Surgery, Heart Catheterization With Stent, Hernia Repair, Orthopedic Surgery, Tonsillectomy Additional Past Surgical History / Comment(s): Right inner Forearm-metal plate, gastric bypass, incisional hernia surgery x2, EGDs, colonoscopies. 2 Stents placed in December 2020; bilateral knee surgeries Past Anesthesia/Blood Transfusion Reactions: No Reported Reaction Date of Last Stent Placement:: december 2020 Past Psychological History: Anxiety, Bipolar, Depression, PTSD Smoking Status: Current every day smoker Past Alcohol Use History: Abuse, Daily Past Drug Use History: None Reported SUBSTANCE HX: History per chart review: He says he began drinking at a young age and the drinking increased in 2011. He reports having attended [employer] in 2016. He also endorses a history of heroin use and says at its peak he was using 1 g daily along with cocaine from 2013 to June 2016. Patient says while he is not on probation, he also smokes marijuana about twice a week "to relax ". Patient states that he began smoking tobacco since he was 9 years old. Alcohol: Was drinking 6 days a month for the past 6 months (around 2-3 fifth of vodka) then was sober for 1 month until 3 days ago. Last drink was on 04/04/24. He reports having been on Vivitrol in the past. Tobacco: 1.5 ppd Cannabis: Denies for the past 3 months Opioids: Has not used in 7.5 years Psilocybin vape pen - was using 5 months ago Denies using other substances SOCIAL/LEGAL HX: Per chart review: States that he was born and raised in [facility] and moved to [place] thereafter. 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 Pt resides in a friends home where he rents a room. Patient reports he is living by himself. He reports being but . He reports having 6 daughters and 3 sons. He says he used to travel and being abandoned. He says he enjoys playing guitar and belle. He collects SSI. FAM PSYCH HX: Claims his father was an alcoholic and his grandmother had some form of mental illness. MENTAL STATUS EXAM: General Appearance: Patient appears to be older stated age is alert, directable, and attempts to cooperate. Thoracic kyphosis and using a walker. Patient appears to have poor hygiene and grooming. Behavior: Patient is seated without any agitated behavior. Speech: Patient's speech is fluent and nonpressured. Mood/Affect: Patient reports their mood is depressed, affect is congruent and constricted. Suicidality/Homicidality: Patient denies having any homicidal ideation intent or plan. Endorses suicidal ideation with a plan Perceptions: Patient denies any visual hallucinations and denies any auditory hallucinations Though content/process: Chronic expression of fixed false belief of cyber stalker. Rambles at times but otherwise linear. Logical. Memory and concentration: AOX3, grossly intact for the purposes of this session. Can spell "WORLD" backwards Judgment and insight: Poor STRENGTHS/WEAKNESSES: Strength is resilience. Weakness is polysubstance use. INTELLECT: average IMPRESSIONS: Major depressive disorder, recurrent, severe R/o substance-induced psychotic disorder R/o Bipolar disorder unspecified Alcohol use disorder, severe dependence, in withdrawal Opioid use disorder, in sustained remission Cannabis use disorder, in early remission Nicotine dependence Hallucinogen use disorder, in early remission Likely delusional disorder Cluster B traits PLAN: -Patient is admitted under voluntary status to [facility] for stabilization of psychiatric symptoms and safety. Patient signed adult voluntary form and medication consent and is placed in patient's chart. -Medications : Start Abilify 10 mg daily for mood augmentation Continue Cymbalta 60 mg daily. Might consider dosing twice a day if that helps more, in the context of gastric bypass surgery hx Will await lab results but patient agreeable with taking Naltrexone 50 mg daily. -CIWA protocol with Ativan PRN. Monitor vital signs. Scoring low today -Patient was counselled on substance abuse and desired to cut back on use. Motivational interviewing. -Patient was informed of the risks, benefits and side effects of the medication and patient verbally consented to taking the medications. Patient signed med consent form and was placed in chart. -Internal Medicine consult to perform medical evaluation and physical. -SW on board for discharge planning. Encourage patient to participate in groups to work on coping skills. 04/06/24 09:39 04/06/24 10:32
[2024-04-06 11:19] LABS: Anisocytosis Slight; HCT 33.3 % (39.0-53.0); HGB 9.4 gm/dL (13.0-17.5); Hypochromasia Marked; MCH 23.8 pg (25.0-35.0); MCHC 28.2 g/dL (31.0-37.0); MCV 84.2 fL (80.0-100.0); Platelet Count 393 k/uL (150-450); RBC 3.96 m/uL (4.30-5.90); RDW 17.4 % (11.5-15.5); WBC 7.3 k/uL (3.8-10.6)
[2024-04-06 11:35] LABS: ALT 34 U/L (4-49); AST 69 U/L (17-59); African American GFR (CKD) >90 (>60 ml/min/1.73 sqM); Albumin 4.4 g/dL (3.5-5.0); Alkaline Phosphatase 96 U/L (38-126); Anion Gap 10 mmol/L; Blood Urea Nitrogen 26 mg/dL (9-20); Calcium 9.4 mg/dL (8.4-10.2); Carbon Dioxide 23 mmol/L (22-30); Chloride 100 mmol/L (98-107); Glucose 110 mg/dL (74-99); Non-African American GFR(CKD) >90 (>60 ml/min/1.73 sqM); Potassium 4.8 mmol/L (3.5-5.1); Sodium 133 mmol/L (137-145); Total Bilirubin 1.3 mg/dL (0.2-1.3); Total Protein 7.3 g/dL (6.3-8.2)
[2024-04-06] MEDS: ARIPiprazole 10 MG TAB PO SCH (11:56)
[2024-04-06 12:10] LABS: Basophils # (M) 0.07 k/uL (0-0.2); Eosinophils # (M) 0.07 k/uL (0-0.7); Monocytes # (M) 0.66 k/uL (0-1.0); Neutrophils % (M) 74 %; Nucleated Red Blood Cells 0 /100 WBC (0-0); Total Cells Counted 100
[2024-04-06 22:55] LABS: Chol/HDL Ratio 2.23 Ratio; LDL Cholesterol,Calculated 60.2 mg/dL (0.0-131.0); VLDL Calculation 15.26 mg/dL (5.00-40.00)
--- NOTE | 2024-04-07 00:03 | P.MDCNMH ---
History of Present Illness H&P Date: 04/07/24 Chief Complaint: medical eval 58 year old male with COPD , hypertension , depression patient coming in for evaluation for overwhelming depression and suicidal ideation , he has been drinking heavily to forget, admits that he has not be compliant with his meds, and started heavy drinking to help with his depression. he admits to smoking and heavy alcohol , denies street drugs denies fever, chills, cough, chest pain , trouble breathing, nausea vomiting, abd pain , or GI bleeding review of systems Pertinent positives as noted in HPI. All other systems were reviewed and are negative on exam Constitutional: No acute distress, conversant Eyes: Anicteric sclerae, moist conjunctiva, Pupils equal round reactive to light ENMT: NC/AT Oropharynx clear, no erythema, or exudates Neck: Supple, no masses, or JVD No carotid bruits No thyromegaly Lungs: Clear to auscultation Clear to percussion Normal respiratory effort, no accessory muscle use Cardiovascular: Heart regular in rate and rhythm, No murmurs, gallops, or rubs No peripheral edema Abdominal: Soft Nontender, no guarding, rebound or rigidity Abdomen moving with respiration Normoactive bowel sounds Extremities: No digital cyanosis No clubbing Pedal pulses intact and symmetrical Radial pulses intact and symmetrical No calf tenderness Psychiatric: Alert and oriented to person, place and time Neuro Muscles Strength 5/5 in all 4 extremities Past Medical History Past Medical History: COPD, GERD/Reflux, GI Bleed, Hypertension, Myocardial Infarction (NC), Pneumonia, Skin Disorder Additional Past Medical History / Comment(s): ETOH abuse with delirium tremors, lower GI bleed, IBS, chronic iron deficiency anemia, hypomagnesemia, hyperbilirubinemia, anorexia, vertigo, nephrolithiasis-passed stone on his own, chronic low back/cervical pain, DDD, kyphosis, scoliosis, coccyx pressure ulcer pt states is mostly healed. Dry and itchy skin back in high school. 2 heart attacks, one in December (2020) second in February (2020). Last Myocardial Infarction Date:: june 2023 History of Any Multi-Drug Resistant Organisms: None Reported Past Surgical History: Bariatric Surgery, Heart Catheterization With Stent, Hernia Repair, Orthopedic Surgery, Tonsillectomy Additional Past Surgical History / Comment(s): Right inner Forearm-metal plate, gastric bypass, incisional hernia surgery x2, EGDs, colonoscopies. 2 Stents placed in December 2020; bilateral knee surgeries Past Anesthesia/Blood Transfusion Reactions: No Reported Reaction Date of Last Stent Placement:: december 2020 Past Psychological History: Anxiety, Bipolar, Depression, PTSD Additional Psychological History / Comment(s): Pt resides in a hotel room. Pt states his depression is stable at this time, no thoughts or plans of suicide. He has had multiple mental health unit admissions. He has ETOH abuse. He goes to [facility]. Smoking Status: Current every day smoker Past Alcohol Use History: Abuse, Daily Additional Past Alcohol Use History / Comment(s): Pt started smokingin 1979 and is a 1.5 -2ppd smoker. Past Drug Use History: None Reported Additional Drug Use History / Comment(s): Pt still uses marijuana on occasion, but quit all other drugs 4-5 years ago. - Past Family History Mother History Unknown: Yes Family Medical History: Hypertension Additional Family Medical History / Comment(s): Lupus. Mother is living. Father History Unknown: Yes Family Medical History: Liver Disease Additional Family Medical History / Comment(s): ETOH abuse. of cirrhosis complications. Medications and Allergies Home Medications Medication Instructions Recorded Confirmed Type Atorvastatin [Lipitor] 80 mg PO DIRECTED 03/30/21 02/25/24 History Omeprazole [PriLOSEC] 20 mg PO DIRECTED 12/06/22 02/25/24 History Amiodarone [Cordarone] 200 mg PO DIRECTED 06/28/23 02/25/24 History DULoxetine HCL [Cymbalta] 60 mg PO DIRECTED 06/28/23 02/25/24 History Apixaban [Eliquis] 5 mg PO DIRECTED 10/04/23 02/25/24 History Aspirin 81 mg PO DIRECTED 01/31/24 02/25/24 History Nitroglycerin Sl Tabs [Nitrostat] 0.4 mg SUBLINGUAL Q5M PRN #20 tab 02/01/24 02/25/24 Rx Metoprolol Succinate (ER) [Toprol 25 mg PO DIRECTED 02/25/24 02/25/24 History Xl] Allergies Allergy/AdvReac Type Severity Reaction Status Date / Time Iodinated Contrast Media Allergy Itching-see Verified 02/24/24 19:29 comment fentanyl AdvReac Itching Verified 02/24/24 19:29 Physical Exam Vitals: Vital Signs Pulse BP BP 04/06/24 21:04 118/76 04/06/24 08:06 102 H 113/74 04/06/24 06:43 81 105/64 Intake and Output 04/06/24 04/06/24 04/07/24 14:59 22:59 06:59 Other: Weight 80.8 kg Cranial Nerve Examination - Cranial Nerves Cranial Nerve II- Optic: Intact Cranial Nerve III- Oculomotor: Intact Cranial Nerve IV- Trochlear: Intact Cranial Nerve V- Trigeminal: Intact Cranial Nerve - Abducens: Intact Cranial Nerve VII- Facial: Intact Cranial Nerve VIII- Auditory: Intact Cranial Nerve IX- Glossopharyngeal: Intact Cranial Nerve X- Vagus: Intact Cranial Nerve XI- Accessory: Intact Cranial Nerve XII- Hypoglossal: Intact Results CBC & Chem 7: 04/06/24 10:39 04/06/24 10:39 Labs: Abnormal Lab Results - Last 24 Hours (Table) 04/06/24 04/06/24 04/06/24 Range/Units 10:39 10:39 10:39 RBC 3.96 L (4.30-5.90) m/uL Hgb 9.4 L (13.0-17.5) gm/dL Hct 33.3 L (39.0-53.0) % MCH 23.8 L (25.0-35.0) pg MCHC 28.2 L (31.0-37.0) g/dL RDW 17.4 H (11.5-15.5) % Sodium 133 L (137-145) mmol/L BUN 26 H (9-20) mg/dL Creatinine 0.65 L (0.66-1.25) mg/dL Glucose 110 H (74-99) mg/dL Hemoglobin A1c 6.2 H (<=6.0) % AST 69 H (17-59) U/L HDL Cholesterol 61.50 H (40.00-60.00) mg/dL Assessment and Plan Assessment: depression and suicidal ideation management per psych COPD albuterol inhaler PRN hypertension resume home blood pressure meds metoprolol chronic anemia denies bleeding continue to monitor DM insulin sliding scale A1c 6.2% P. afib resume metoprolol and eliquis alcohol abuse monitor for alcohol withdrawal stable from medical stand point WBC 7.3 unremarkable Na 133 K 4.8 BUN 26 Cr 0.6 unremarkable renal function thank you for this consultation
[2024-04-07] MEDS ORDERED: DEXTROSE 50% SYRINGE 50 ML IVP PRN ×2 (02:09)
[2024-04-07 07:58] LABS: Glucose,Whole Blood 124 mg/dL (70-110)
[2024-04-07] MEDS ORDERED: ALBUTEROL INHALER 60 PUFF/8 GM INHALER (MHU) INHALATION PRN (08:00)
[2024-04-07] MEDS: INSULIN ASPART (NovoLOG) 100 UNIT/ML VIAL SQ SCH (08:16)
[2024-04-07 13:04] LABS: Glucose,Whole Blood 115 mg/dL (70-110)
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
[2024-04-07 17:49] LABS: Glucose,Whole Blood 116 mg/dL (70-110)
[2024-04-07 20:39] LABS: Glucose,Whole Blood 130 mg/dL (70-110)
[2024-04-08 07:53] LABS: Glucose,Whole Blood 117 mg/dL (70-110)
[2024-04-08] MEDS: metFORMIN 500 MG TAB PO SCH (08:10)
[2024-04-08 12:36] LABS: Glucose,Whole Blood 115 mg/dL (70-110)
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
[2024-04-08 17:41] LABS: Glucose,Whole Blood 117 mg/dL (70-110)
[2024-04-08 19:44] LABS: Glucose,Whole Blood 145 mg/dL (70-110)
[2024-04-09 07:05] VITALS: RESP 16
[2024-04-09 07:45] LABS: Glucose,Whole Blood 115 mg/dL (70-110)
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
[2024-04-09 12:30] LABS: Glucose,Whole Blood 104 mg/dL (70-110)
[2024-04-09 17:28] LABS: Glucose,Whole Blood 101 mg/dL (70-110)
[2024-04-09 19:55] LABS: Glucose,Whole Blood 237 mg/dL (70-110)
[2024-04-10 07:07] VITALS: BP 110/72; PULSE 63; TEMP 98.5
[2024-04-10 07:58] LABS: Glucose,Whole Blood 100 mg/dL (70-110)
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
[2024-04-10 12:42] LABS: Glucose,Whole Blood 94 mg/dL (70-110)
== END 2024-04-10 14:45 | disposition home or self-care (01) | DRG 885 ==
LOC: EC 01:00 → 3MHU 17:36
PROVIDERS: ADMIT Psychiatry & Neurology Psychiatry; ATTEND Psychiatry & Neurology Psychiatry
DX: F33.2 Major depressive disorder, recurrent severe without psychotic features (principal); R45.851 Suicidal ideations; F22 Delusional disorders; I10 Essential (primary) hypertension; J44.9 Chronic obstructive pulmonary disease, unspecified; I48.0 Paroxysmal atrial fibrillation; D50.9 Iron deficiency anemia, unspecified; F10.20 Alcohol dependence, uncomplicated; F11.11 Opioid abuse, in remission; F12.11 Cannabis abuse, in remission; F16.11 Hallucinogen abuse, in remission; F17.200 Nicotine dependence, unspecified, uncomplicated; F41.9 Anxiety disorder, unspecified; F43.10 Post-traumatic stress disorder, unspecified; G47.10 Hypersomnia, unspecified; M40.204 Unspecified kyphosis, thoracic region; G24.01 Drug induced subacute dyskinesia; K21.9 Gastro-esophageal reflux disease without esophagitis; I25.2 Old myocardial infarction; Z79.01 Long term (current) use of anticoagulants; Z98.84 Bariatric surgery status; Z79.82 Long term (current) use of aspirin; Z79.84 Long term (current) use of oral hypoglycemic drugs; Z79.899 Other long term (current) drug therapy; Z88.5 Allergy status to narcotic agent; Z91.041 Radiographic dye allergy status; Z81.1 Family history of alcohol abuse and dependence; Z82.49 Family history of ischemic heart disease and other diseases of the circulatory system
CPT/HCPCS: 80053; 80061; 80306; 81001; 82075; 83036; 84443; 85025; 87635; 93005; 99285

== ENCOUNTER 2024-04-14 22:18 | Inpatient (IN) | payer MEDICAID, MEDICARE ==
--- NOTE | 2024-04-14 23:01 | ED ---
General Adult HPI - General Chief complaint: Shortness of Breath Stated complaint: ITALO Time Seen by Provider: 04/14/24 22:21 Source: patient, EMS, RN notes reviewed, old records reviewed Mode of arrival: EMS Limitations: no limitations - History of Present Illness Initial comments: 58-year-old male presents for evaluation of dyspnea which has progressed over the past 3 days. No associated chest pain. Patient is a current smoker and has history of COPD. Patient states he has not felt well for the past 3 days. Including mild cough. No measured fever. Patient has had poor appetite as well. Patient was transported by paramedics, found to be hypoxic requiring supplemental oxygen. Patient does not wear oxygen at baseline. - Related Data Home Medications Medication Instructions Recorded Confirmed Atorvastatin [Lipitor] 80 mg PO DIRECTED 03/30/21 04/10/24 Omeprazole [PriLOSEC] 20 mg PO DIRECTED 12/06/22 04/10/24 Amiodarone [Cordarone] 200 mg PO DIRECTED 06/28/23 04/10/24 DULoxetine HCL [Cymbalta] 60 mg PO DIRECTED 06/28/23 04/10/24 Apixaban [Eliquis] 5 mg PO DIRECTED 10/04/23 04/10/24 Aspirin 81 mg PO DIRECTED 01/31/24 04/10/24 Metoprolol Succinate (ER) [Toprol 25 mg PO DIRECTED 02/25/24 04/10/24 XL] Previous Rx's Medication Instructions Recorded Nitroglycerin Sl Tabs [Nitrostat] 0.4 mg SUBLINGUAL Q5M PRN #20 tab 02/01/24 ARIPiprazole [Abilify] 10 mg PO DAILY 15 Days #15 tab 04/10/24 Albuterol Inhaler [Ventolin Hfa 2 puff INHALATION RT-QID PRN each 04/10/24 Inhaler] metFORMIN HCL [Glucophage] 500 mg PO BID-W/MEALS 15 Days #30 04/10/24 tab Allergies Allergy/AdvReac Type Severity Reaction Status Date / Time Iodinated Contrast Media Allergy Itching-see Verified 04/14/24 22:29 comment fentanyl AdvReac Itching Verified 04/14/24 22:29 Review of Systems ROS Statement: Those systems with pertinent positive or pertinent negative responses have been documented in the HPI. ROS Other: All systems not noted in ROS Statement are negative. Past Medical History Past Medical History: COPD, GERD/Reflux, GI Bleed, Hypertension, Myocardial Infarction (SD), Pneumonia, Skin Disorder Additional Past Medical History / Comment(s): ETOH abuse with delirium tremors, lower GI bleed, IBS, chronic iron deficiency anemia, hypomagnesemia, hyperbi lirubinemia, anorexia, vertigo, nephrolithiasis-passed stone on his own, chronic low back/cervical pain, DDD, kyphosis, scoliosis, coccyx pressure ulcer pt states is mostly healed. Dry and itchy skin back in high school. 2 heart attacks, one in December (2020) second in February (2020). Last Myocardial Infarction Date:: june 2023 History of Any Multi-Drug Resistant Organisms: None Reported Past Surgical History: Bariatric Surgery, Heart Catheterization With Stent, Hernia Repair, Orthopedic Surgery, Tonsillectomy Additional Past Surgical History / Comment(s): Right inner Forearm-metal plate, gastric bypass, incisional hernia surgery x2, EGDs, colonoscopies. 2 Stents placed in December 2020; bilateral knee surgeries Past Anesthesia/Blood Transfusion Reactions: No Reported Reaction Date of Last Stent Placement:: december 2020 Past Psychological History: Anxiety, Bipolar, Depression, PTSD Smoking Status: Current every day smoker Past Alcohol Use History: Abuse, Daily Past Drug Use History: None Reported - Past Family History Mother History Unknown: Yes Family Medical History: Hypertension Additional Family Medical History / Comment(s): Lupus. Mother is living. Father History Unknown: Yes Family Medical History: Liver Disease Additional Family Medical History / Comment(s): ETOH abuse. of cirrhosis complications. General Exam General appearance: alert, in no apparent distress Head exam: Present: atraumatic, normocephalic Eye exam: Present: normal appearance, PERRL Neck exam: Present: normal inspection Respiratory exam: Present: wheezes, decreased breath sounds. Absent: respiratory distress Cardiovascular Exam: Present: regular rate, normal rhythm GI/Abdominal exam: Present: soft. Absent: distended, tenderness Extremities exam: Present: normal inspection, normal capillary refill Neurological exam: Present: alert, oriented X3 Psychiatric exam: Present: normal affect, normal mood Skin exam: Present: warm, dry, intact. Absent: cyanosis, diaphoretic Course Vital Signs 04/14/24 04/14/24 04/14/24 22:27 23:28 23:46 Temperature 98.1 F Pulse Rate 96 89 94 Respiratory 20 Rate Blood Pressure 144/98 O2 Sat by Pulse 96 Oximetry Medical Decision Making - Medical Decision Making Was pt. sent in by a medical professional or institution ([facility]Y Katz, [employer], urgent care, hospital, or detention...) When possible be specific @ -No Did you speak to anyone other than the patient for history (EMS, parent, family, police, friend...)? What history was obtained from this source @ -No Did you review nursing and triage notes (agree or disagree)? Why? @ -I reviewed and agree with nursing and triage notes Were old charts reviewed (outside hosp., previous admission, EMS record, old EKG, old radiological studies, urgent care reports/EKG's, detention records)? Report findings @ -No old charts were reviewed Differential Dyspnea: Coronary syndrome, arrhythmia, tamponade, asthma, COPD, pulmonary embolism, pneumonia, pneumothorax, pulmonary effusion, anaphylaxis, diabetic ketoacidosis, flailed chest, pulmonary contusion, diaphragmatic rupture, anemia, neuromuscular, this is not meant to be an all-inclusive list. EKG interpreted by me (3pts min.). @ -Sinus rhythm rate of 90 AK interval 171, QRS duration 113, QTc [address] segment elevation. X-rays interpreted by me (1pt min.). @ -[Chest x-ray negative for focal pneumonia, no pneumothorax CT interpreted by me (1pt min.). @ -None done U/S interpreted by me (1pt. min.). @ -None done What testing was considered but not performed or refused? (CT, X-rays, U/S, l abs)? Why? @ -None What meds were considered but not given or refused? Why? @ -None Did you discuss the management of the patient with other professionals (professionals i.e. TRACEY Katz, [employer], lab, RT, psych nurse, social and human services assistant, principal planner, teacher, benefits officer, bilingual case manager)? Give summary @EMH Was smoking cessation discussed for >3mins.? @ -No Was critical care preformed (if so, how long)? @ -No Were there social determinants of health that impacted care today? How? (Homelessness, low income, unemployed, alcoholism, drug addiction, transportation, low edu. Level, literacy, decrease access to med. care, usp, rehab)? @ -No Was there de-escalation of care discussed even if they declined (Discuss DNR or withdrawal of care, Hospice)? DNR status @ -No What co-morbidities impacted this encounter? (DM, HTN, Smoking, COPD, CAD, Cancer, CVA, ARF, Chemo, Hep., AIDS, mental health diagnosis, sleep apnea, morbid obesity)? @ -[COPD, CHF, chronic troponin elevation Was patient admitted / discharged? Hospital course, mention meds given and route, prescriptions, significant lab abnormalities, going to OR and other pertinent info. @ -H 58-year-old male presenting with dyspnea over the past several days. History of COPD and CHF. Patient is hypoxic requiring supplemental oxygen. Patient has chronic anemia no leukocytosis. He has chronic troponin elevation at 0.096. His BNP is elevated above baseline. Likely has a component of both COPD and CHF. He is treated for both with IV diuresis, IV steroids, albuterol, Atrovent. Patient admitted to [facility]. Undiagnosed new problem with uncertain prognosis? @ -[No Drug Therapy requiring intensive monitoring for toxicity (Heparin, Nitro, Insulin, Cardizem)? @ -No Were any procedures done? @ -No Diagnosis/symptom? @COPD, CHF, troponin elevation Acute, or Chronic, or Acute on Chronic? @Acute on chronic Uncomplicated (without systemic symptoms) or Complicated (systemic symptoms)? @ -Default Side effects of treatment? @ -No Exacerbation, Progression, or Severe Exacerbation? @ -No Poses a threat to life or bodily function? How? (Chest pain, USA, SD, pneumonia, PE, COPD, DKA, ARF, appy, cholecystitis, CVA, Diverticulitis, Homicidal, Suicidal, threat to staff... and all critical care pts) @ -Yes, respiratory failure, hypoxia - Lab Data Result diagrams: 04/14/24 23:00 04/14/24 23:02 Lab Results 04/14/24 04/14/24 04/14/24 Range/Units 23:00 23:00 23:02 WBC 10.5 (3.8-10.6) k/uL RBC 4.28 L (4.30-5.90) m/uL Hgb 10.6 L (13.0-17.5) gm/dL Hct 35.9 L (39.0-53.0) % MCV 83.9 (80.0-100.0) fL MCH 24.7 L (25.0-35.0) pg MCHC 29.4 L (31.0-37.0) g/dL RDW 18.3 H (11.5-15.5) % Plt Count 330 (150-450) k/uL MPV 7.2 Neutrophils % 88 % Lymphocytes % 5 % Monocytes % 5 % Eosinophils % 0 % Basophils % 0 % Neutrophils # 9.2 H (1.3-7.7) k/uL Lymphocytes # 0.6 L (1.0-4.8) k/uL Monocytes # 0.5 (0-1.0) k/uL Eosinophils # 0.0 (0-0.7) k/uL Basophils # 0.0 (0-0.2) k/uL Hypochromasia Marked Anisocytosis Slight PT 11.7 (10.0-12.5) sec INR 1.1 (<1.2) APTT 24.2 (22.0-30.0) sec Sodium (137-145) mmol/L Potassium (3.5-5.1) mmol/L Chloride (98-107) mmol/L Carbon Dioxide (22-30) mmol/L Anion Gap mmol/L BUN (9-20) mg/dL Creatinine (0.66-1.25) mg/dL Est GFR (CKD-EPI)AfAm (>60 ml/min/1.73 sqM) Est GFR (CKD-EPI)NonAf (>60 ml/min/1.73 sqM) Glucose (74-99) mg/dL Calcium (8.4-10.2) mg/dL Total Bilirubin (0.2-1.3) mg/dL AST (17-59) U/L ALT (4-49) U/L Alkaline Phosphatase (38-126) U/L Troponin I (0.000-0.034) ng/mL NT-Pro-B Natriuret Pep pg/mL Total Protein (6.3-8.2) g/dL Albumin (3.5-5.0) g/dL Influenza Type A (PCR) Not Detected (Not Detectd) Influenza Type B (PCR) Not Detected (Not Detectd) RSV (PCR) Not Detected (Not Detectd) SARS-CoV-2 (PCR) Not Detected (Not Detectd) 04/14/24 04/14/24 Range/Units 23:02 23:02 WBC (3.8-10.6) k/uL RBC (4.30-5.90) m/uL Hgb (13.0-17.5) gm/dL Hct (39.0-53.0) % MCV (80.0-100.0) fL MCH (25.0-35.0) pg MCHC (31.0-37.0) g/dL RDW (11.5-15.5) % Plt Count (150-450) k/uL MPV Neutrophils % % Lymphocytes % % Monocytes % % Eosinophils % % Basophils % % Neutrophils # (1.3-7.7) k/uL Lymphocytes # (1.0-4.8) k/uL Monocytes # (0-1.0) k/uL Eosinophils # (0-0.7) k/uL Basophils # (0-0.2) k/uL Hypochromasia Anisocytosis PT (10.0-12.5) sec INR (<1.2) APTT (22.0-30.0) sec Sodium 135 L (137-145) mmol/L Potassium 4.6 (3.5-5.1) mmol/L Chloride 100 (98-107) mmol/L Carbon Dioxide 23 (22-30) mmol/L Anion Gap 12 mmol/L BUN 19 (9-20) mg/dL Creatinine 0.74 (0.66-1.25) mg/dL Est GFR (CKD-EPI)AfAm >90 (>60 ml/min/1.73 sqM) Est GFR (CKD-EPI)NonAf >90 (>60 ml/min/1.73 sqM) Glucose 233 H (74-99) mg/dL Calcium 9.6 (8.4-10.2) mg/dL Total Bilirubin 1.3 (0.2-1.3) mg/dL AST 178 H (17-59) U/L ALT 43 (4-49) U/L Alkaline Phosphatase 96 (38-126) U/L Troponin I 0.096 H* (0.000-0.034) ng/mL NT-Pro-B Natriuret Pep 5270 pg/mL Total Protein 7.0 (6.3-8.2) g/dL Albumin 4.4 (3.5-5.0) g/dL Influenza Type A (PCR) (Not Detectd) Influenza Type B (PCR) (Not Detectd) RSV (PCR) (Not Detectd) SARS-CoV-2 (PCR) (Not Detectd) Disposition Clinical Impression: CHF (congestive heart failure), Acute exacerbation of chronic obstructive pulmonary disease Disposition: ADMITTED IP TO THIS HOSP Condition: Stable Is patient prescribed a controlled substance at d/c from ED?: No Referrals: None,Stated [Primary Care Provider] - 1-2 days Time of Disposition: 00:21
[2024-04-14] MEDS: methylPREDNISolone SOD SUCCI 125 MG/2 ML VIAL IV STA (23:15)
[2024-04-14 23:19] LABS: Anisocytosis Slight; Basophils % (A) 0 %; Eosinophils % (A) 0 %; HCT 35.9 % (39.0-53.0); HGB 10.6 gm/dL (13.0-17.5); Hypochromasia Marked; Lymphocytes # (A) 0.6 k/uL (1.0-4.8); Lymphocytes % (A) 5 %; MCH 24.7 pg (25.0-35.0); MCHC 29.4 g/dL (31.0-37.0); MCV 83.9 fL (80.0-100.0); Mean Platelet Volume 7.2; Monocytes # (A) 0.5 k/uL (0-1.0); Monocytes % (A) 5 %; Neutrophils # (A) 9.2 k/uL (1.3-7.7); Neutrophils % (A) 88 %; Platelet Count 330 k/uL (150-450); RBC 4.28 m/uL (4.30-5.90); RDW 18.3 % (11.5-15.5); WBC 10.5 k/uL (3.8-10.6)
[2024-04-14] MEDS: ALBUTEROL NEBULIZED 2.5 MG/3 ML INHALATION STA (23:27)
[2024-04-14] MEDS: IPRATROPIUM 0.5 MG/2.5 ML NEBU INHALATION STA (23:28)
[2024-04-14 23:32] LABS: ALT 43 U/L (4-49); AST 178 U/L (17-59); African American GFR (CKD) >90 (>60 ml/min/1.73 sqM); Albumin 4.4 g/dL (3.5-5.0); Alkaline Phosphatase 96 U/L (38-126); Anion Gap 12 mmol/L; Blood Urea Nitrogen 19 mg/dL (9-20); Calcium 9.6 mg/dL (8.4-10.2); Carbon Dioxide 23 mmol/L (22-30); Chloride 100 mmol/L (98-107); Glucose 233 mg/dL (74-99); Non-African American GFR(CKD) >90 (>60 ml/min/1.73 sqM); Potassium 4.6 mmol/L (3.5-5.1); Sodium 135 mmol/L (137-145); Total Bilirubin 1.3 mg/dL (0.2-1.3)
[2024-04-14 23:35] LABS: INR 1.1 (<1.2); Partial Thromboplastin Time 24.2 sec (22.0-30.0); Prothrombin Time 11.7 sec (10.0-12.5)
[2024-04-14 23:41] LABS: NT-Pro-B-Type Natriuretic Pept 5270 pg/mL
--- NOTE | 2024-04-15 00:04 | XR ---
EXAMINATION TYPE: XR chest 2V DATE OF EXAM: 04/14/2024 COMPARISON: Chest x-ray March 01, 2024 HISTORY: Difficulty in breathing. TECHNIQUE: Frontal and lateral views of the chest are obtained. FINDINGS: Elevated left hemidiaphragm redemonstrated. Chronic bibasilar opacities favor scarring and /or atelectasis. There is no suspicious new focal air space opacity, pleural effusion, or pneumothora x seen. The cardiac silhouette size is stable and mildly enlarged. Old fractures of the right latera l mid ribs redemonstrated. IMPRESSION: Chronic changes and mild cardiomegaly without acute pulmonary process. [facility], , 04/15/2024 12:01 AM
[2024-04-15] MEDS ORDERED: IPRATROPIUM-ALBUTEROL 3 ML NEB INHALATION PRN (00:13)
[2024-04-15] MEDS ORDERED: NALOXONE 0.4 MG/ML 1 ML VIAL IVP PRN (00:13)
[2024-04-15] MEDS ORDERED: ACETAMINOPHEN TAB 325 MG TAB PO PRN (00:13)
[2024-04-15] MEDS: FUROSEMIDE 10 MG/ML 4 ML VIAL IV STA (00:38)
[2024-04-15] MEDS: methylPREDNISolone SOD SUCCI 125 MG/2 ML VIAL IV SCH (05:06)
[2024-04-15] MEDS: IPRATROPIUM-ALBUTEROL 3 ML NEB INHALATION SCH (08:40)
[2024-04-15] MEDS ORDERED: NITROGLYCERIN SL TABS 0.4 MG TAB SUBLINGUAL PRN (10:31)
[2024-04-15] MEDS ORDERED: ALBUTEROL NEBULIZED 2.5 MG/3 ML INHALATION PRN (10:31)
[2024-04-15] MEDS ORDERED: DEXTROSE 50% SYRINGE 50 ML IVP PRN ×2 (10:32)
[2024-04-15] MEDS: AZITHROMYCIN 500 MG TAB PO SCH (10:50)
[2024-04-15] MEDS: FUROSEMIDE 10 MG/ML 4 ML VIAL IV SCH (11:33)
[2024-04-15] MEDS: APIXABAN 5 MG TAB PO SCH (12:10)
[2024-04-15] MEDS: ASPIRIN 81 MG PO SCH (12:10)
[2024-04-15] MEDS: AMIODARONE 200 MG TAB PO SCH (12:10)
[2024-04-15] MEDS: METOPROLOL SUCCINATE (ER) 25 MG TAB.ER.24H PO SCH (12:10)
[2024-04-15] MEDS: ARIPiprazole 10 MG TAB PO SCH (12:11)
[2024-04-15] MEDS: DULoxetine HCL 60 MG CAPSULE.DR PO SCH (12:11)
[2024-04-15] MEDS: PANTOPRAZOLE 40 MG TABLET PO SCH (12:11)
[2024-04-15 12:20] LABS: Glucose,Whole Blood 232 mg/dL (70-110)
[2024-04-15] MEDS: INSULIN ASPART (NovoLOG) 100 UNIT/ML VIAL SQ SCH (12:28)
[2024-04-15] MEDS: NICOTINE 14MG/24HR PATCH TRANSDERM SCH (14:23)
[2024-04-15 17:34] LABS: Appearance,Urine Clear (Clear); Bilirubin,Urine Negative (Negative); Blood,Urine Moderate (Negative); Color,Urine Light Yellow; Glucose,Urine (UA) Negative (Negative); Ketones,Urine 1+ (Negative); Leukocyte Esterase,Urine Negative (Negative); Mucus,Urine Rare /hpf; Nitrite,Urine Negative (Negative); PH, Urine 6.5 (5.0-8.0); Protein,Urine Negative (Negative); RBC,Urine 70 /hpf (0-5); Specific Gravity,Urine 1.012 (1.001-1.035); Squamous Epithelial Cell,Urine <1 /hpf (0-4); WBC,Urine 3 /hpf (0-5)
[2024-04-15 17:39] LABS: Amphetamine Screen,Urine Not Detected (NotDetected); Barbiturate Screen,Urine Not Detected (NotDetected); Benzodiazepines Screen,Urine Not Detected (NotDetected); Cocaine Screen,Urine Not Detected (NotDetected); Methadone Screen, Urine Not Detected (NotDetected); Opiate Screen,Urine Not Detected (NotDetected); Oxycodone Screen, Urine Not Detected (NotDetected); Phencyclidine Screen,Urine Not Detected (NotDetected); Tricyclic Antidepressant,Urine Not Detected (NotDetected); Urn Cannabinoid Scrn Not Detected (NotDetected)
[2024-04-15] MEDS: metFORMIN 500 MG TAB PO SCH (18:25)
--- NOTE | 2024-04-15 20:21 | P.CNPUL ---
History of Present Illness Consult date: 04/15/24 Reason for consult: dyspnea History of present illness: This is a 58-year-old female patient, known history of coronary artery disease, previous coronary stenting, known history of ischemic cardiomyopathy with a echocardiogram from September 2023 revealing an ejection fraction of 20 to 25% with mild pulm hypertension and apical thrombus along with moderate mitral regurgitation. Repeat echo from 01/28/2024 showed an ejection fraction of 30 to 35%, grade 2 diastolic heart failure, reduced global LV function,. Previous CT of the chest from 2023 her previous cardiac catheterization from October 2023 revealing calcified coronaries, patent stent to the LAD and circumflex and chronic occluded proximal RCA and mid to distal LAD with a normal left ve ntricular end-diastolic pressure. The patient is also known to have COPD, paroxysmal atrial fibrillation, hypertension hyperlipidemia previous history of alcohol abuse along with chronic anxiety/depression. The patient was recently treated for alcohol abuse and major depression and the patient was discharged home on Cymbalta and Abilify. The patient is coming to the house because of worsening shortness of breath over the past 3 days. No chest pain. She had a mild cough. Diminished appetite. She was placed on room air oxygen with a pulse ox of 98%. Her blood work from today showing a white cell count of 10.5 with hemoglobin 10.6 and a platelet count of 330. Normal coagulation profile. Normal electrolytes. Normal renal function. Troponin was 0.096. proBNP level was 5270. LFTs are essentially baseline with an AST of 178, ALT of 43 with an alkaline phosphatase of 96. The chest x-ray showed cardiomegaly, chronic elevation of the left hemidiaphragm along with chronic bibasilar pulmonary atelectatic changes. Old right-sided lateral rib fractures. Showed small to moderate-sized right-sided pleural effusion and elevation of the left hemidiaphragm with possible posterior herniation. No evidence of any pulmonary embolism. He is a smoker and he is smoking 1 PPD and he is drinking Etoh (binge drinking). He is using albuterol HFA as needed. NO maintenance inhalers and he has no home 02. Review of Systems Constitutional: Reports fatigue, Reports weight loss Eyes: denies as per HPI, denies blurred vision, denies bulging eye, denies decreased vision, denies diplopia, denies discharge, denies dry eye, denies irritation, denies itching, denies pain, denies photophobia, denies loss of peripheral vision, denies loss of vision, denies tunnel vision/blind spots Ears: deny: decreased hearing, ear discharge, earache, tinnitus Ears, nose, mouth and throat: Reports as per HPI Breasts: absent: as per HPI, gynecomastia Cardiovascular: Reports decreased exercise tolerance, Reports dyspnea on exertion, Reports shortness of breath Respiratory: Reports dyspnea Gastrointestinal: Reports as per HPI Genitourinary: Reports as per HPI Musculoskeletal: Reports as per HPI Musculoskeletal: absent: ankle pain, ankle stiffness, ankle swelling, as per HPI, elbow pain, elbow stiffness, elbow swelling, foot pain, foot stiffness, foot swelling, hand pain, hand stiffness, hand swelling, hip pain, hip stiffness, hip swelling, knee pain, knee stiffness, knee swelling, shoulder pain, shoulder stiffness, shoulder swelling, wrist pain, wrist stiffness, wrist swelling Integumentary: Reports as per HPI Neurological: Reports as per HPI Psychiatric: Reports as per HPI Endocrine: Reports as per HPI Hematologic/Lymphatic: Reports as per HPI Allergic/Immunologic: Reports as per HPI Past Medical History Past Medical History: COPD, GERD/Reflux, GI Bleed, Hypertension, Myocardial Infarction (MD), Pneumonia, Skin Disorder Additional Past Medical History / Comment(s): ETOH abuse with delirium tremors, lower GI bleed, IBS, chronic iron deficiency anemia, hypomagnesemia, hyperbilirubinemia, anorexia, vertigo, nephrolithiasis-passed stone on his own, chronic low back/cervical pain, DDD, kyphosis, scoliosis, coccyx pressure ulcer pt states is mostly healed. Dry and itchy skin back in high school. 2 heart attacks, one in December (2020) second in February (2020). Last Myocardial Infarction Date:: june 2023 History of Any Multi-Drug Resistant Organisms: None Reported Past Surgical History: Bariatric Surgery, Heart Catheterization With Stent, Hernia Repair, Orthopedic Surgery, Tonsillectomy Additional Past Surgical History / Comment(s): Right inner Forearm-metal plate, gastric bypass, incisional hernia surgery x2, EGDs, colonoscopies. 2 Stents placed in December 2020; bilateral knee surgeries Past Anesthesia/Blood Transfusion Reactions: No Reported Reaction Date of Last Stent Placement:: december 2020 Past Psychological History: Anxiety, Bipolar, Depression, PTSD Smoking Status: Current every day smoker Past Alcohol Use History: Abuse, Daily Past Drug Use History: None Reported - Past Family History Mother History Unknown: Yes Family Medical History: Hypertension Additional Family Medical History / Comment(s): Lupus. Mother is living. Father History Unknown: Yes Family Medical History: Liver Disease Additional Family Medical History / Comment(s): ETOH abuse. of cirrhosis complications. Medications and Allergies Home Medications Medication Instructions Recorded Confirmed Type Atorvastatin [Lipitor] 80 mg PO DIRECTED 03/30/21 04/15/24 History Omeprazole [PriLOSEC] 20 mg PO DIRECTED 12/06/22 04/15/24 History Amiodarone [Cordarone] 200 mg PO DIRECTED 06/28/23 04/15/24 History DULoxetine HCL [Cymbalta] 60 mg PO DIRECTED 06/28/23 04/15/24 History Apixaban [Eliquis] 5 mg PO DIRECTED 10/04/23 04/15/24 History Aspirin 81 mg PO DIRECTED 01/31/24 04/15/24 History Nitroglycerin Sl Tabs [Nitrostat] 0.4 mg SUBLINGUAL Q5M PRN #20 tab 02/01/24 04/15/24 Rx Metoprolol Succinate (ER) [Toprol 25 mg PO DIRECTED 02/25/24 04/15/24 History XL] ARIPiprazole [Abilify] 10 mg PO DAILY 15 Days #15 tab 04/10/24 04/15/24 Rx Albuterol Inhaler [Ventolin Hfa 2 puff INHALATION RT-QID PRN each 04/10/24 04/15/24 Rx Inhaler] metFORMIN HCL [Glucophage] 500 mg PO BID-W/MEALS 15 Days #30 04/10/24 04/15/24 Rx tab Allergies Allergy/AdvReac Type Severity Reaction Status Date / Time Iodinated Contrast Media Allergy Itching-see Verified 04/15/24 08:21 comment fentanyl AdvReac Itching Verified 04/15/24 08:21 Physical Exam Vitals: Vital Signs Temp Pulse Resp BP Pulse Ox 04/15/24 12:21 108 H 04/15/24 12:18 103 H 101/67 04/15/24 12:10 103 H 04/15/24 10:27 101 H 20 101/79 98 04/15/24 08:52 109 H 04/15/24 08:40 96 04/15/24 07:38 101 H 20 116/81 97 04/15/24 06:00 99 19 108/84 95 04/15/24 00:40 101 H 19 110/78 04/14/24 23:46 94 04/14/24 23:28 89 04/14/24 22:27 98.1 F 96 20 144/98 96 General: Nontoxic, no distress and appears stated age. No significant respiratory distress, currently on 2 L of oxygen by nasal cannula Derm: Skin warm and dry, normal coloration for ethnicity. Head: Atraumatic, normocephalic and symmetric. Eyes: EOMs intact, no lid lag, and anicteric sclera Mouth: no lip lesions, mucus membranes moist Cardiovascular: regular rate and rhythm with normal S1S2, systolic murmur, positive posterior tibial pulses bilaterally Lungs: Diminished breath sounds, scattered rhonchi in the lung base bilaterally, scattered expiratory wheezes Abdominal: soft, nontender to palpation, no guarding, no appreciable organomegaly Ext: ROM intact. No gross muscle atrophy, no edema, no contractures Neuro: Speech clear, face symmetrical and CN II-XII grossly intact with no noted focal neuro deficits Psych: Alert and oriented to person, place, time, and situation. Appropriate and pleasant affect. Results - Laboratory Findings CBC and BMP: 04/14/24 23:00 04/14/24 23:02 ABG WBC 10.5 k/uL (3.8-10.6) 04/14/24 23:00 RBC 4.28 m/uL (4.30-5.90) L 04/14/24 23:00 Hgb 10.6 gm/dL (13.0-17.5) L 04/14/24 23:00 Hct 35.9 % (39.0-53.0) L 04/14/24 23:00 MCV 83.9 fL (80.0-100.0) 04/14/24 23:00 MCH 24.7 pg (25.0-35.0) L 04/14/24 23:00 MCHC 29.4 g/dL (31.0-37.0) L 04/14/24 23:00 RDW 18.3 % (11.5-15.5) H 04/14/24 23:00 Plt Count 330 k/uL (150-450) 04/14/24 23:00 MPV 7.2 04/14/24 23:00 Neutrophils % 88 % 04/14/24 23:00 Lymphocytes % 5 % 04/14/24 23:00 Monocytes % 5 % 04/14/24 23:00 Eosinophils % 0 % 04/14/24 23:00 Basophils % 0 % 04/14/24 23:00 Neutrophils # 9.2 k/uL (1.3-7.7) H 04/14/24 23:00 Lymphocytes # 0.6 k/uL (1.0-4.8) L 04/14/24 23:00 Monocytes # 0.5 k/uL (0-1.0) 04/14/24 23:00 Eosinophils # 0.0 k/uL (0-0.7) 04/14/24 23:00 Basophils # 0.0 k/uL (0-0.2) 04/14/24 23:00 Hypochromasia Marked 04/14/24 23:00 Anisocytosis Slight 04/14/24 23:00 PT 11.7 sec (10.0-12.5) 04/14/24 23:02 INR 1.1 (<1.2) 04/14/24 23:02 APTT 24.2 sec (22.0-30.0) 04/14/24 23:02 D-Dimer 0.56 mg/L FEU (<0.60) 04/15/24 14:41 Sodium 135 mmol/L (137-145) L 04/14/24 23:02 Potassium 4.6 mmol/L (3.5-5.1) 04/14/24 23:02 Chloride 100 mmol/L (98-107) 04/14/24 23:02 Carbon Dioxide 23 mmol/L (22-30) 04/14/24 23:02 Anion Gap 12 mmol/L 04/14/24 23:02 BUN 19 mg/dL (9-20) 04/14/24 23:02 Creatinine 0.74 mg/dL (0.66-1.25) 04/14/24 23:02 Est GFR (CKD-EPI)AfAm >90 (>60 ml/min/1.73 sqM) 04/14/24 23:02 Est GFR (CKD-EPI)NonAf >90 (>60 ml/min/1.73 sqM) 04/14/24 23:02 Glucose 233 mg/dL (74-99) H 04/14/24 23:02 POC Glucose (mg/dL) 232 mg/dL (70-110) H 04/15/24 12:18 POC Glu Utility Specialist Kat Soliz 04/15/24 12:18 Calcium 9.6 mg/dL (8.4-10.2) 04/14/24 23:02 Total Bilirubin 1.3 mg/dL (0.2-1.3) 04/14/24 23:02 AST 178 U/L (17-59) H 04/14/24 23:02 ALT 43 U/L (4-49) 04/14/24 23:02 Alkaline Phosphatase 96 U/L (38-126) 04/14/24 23:02 Troponin I 0.096 ng/mL (0.000-0.034) H* 04/14/24 23:02 NT-Pro-B Natriuret Pep 5270 pg/mL 04/14/24 23:02 Total Protein 7.0 g/dL (6.3-8.2) 04/14/24 23:02 Albumin 4.4 g/dL (3.5-5.0) 04/14/24 23:02 Influenza Type A (PCR) Not Detected (Not Detectd) 04/14/24 23:00 Influenza Type B (PCR) Not Detected (Not Detectd) 04/14/24 23:00 RSV (PCR) Not Detected (Not Detectd) 04/14/24 23:00 SARS-CoV-2 (PCR) Not Detected (Not Detectd) 04/14/24 23:00 PT/INR, D-dimer PT 11.7 sec (10.0-12.5) 04/14/24 23:02 INR 1.1 (<1.2) 04/14/24 23:02 D-Dimer 0.56 mg/L FEU (<0.60) 04/15/24 14:41 Abnormal lab findings: Abnormal Labs 04/14/24 04/14/24 04/14/24 23:00 23:02 23:02 RBC 4.28 L Hgb 10.6 L Hct 35.9 L MCH 24.7 L MCHC 29.4 L RDW 18.3 H Neutrophils # 9.2 H Lymphocytes # 0.6 L Sodium 135 L Glucose 233 H POC Glucose (mg/dL) AST 178 H Troponin I 0.096 H* 04/15/24 12:18 RBC Hgb Hct MCH MCHC RDW Neutrophils # Lymphocytes # Sodium Glucose POC Glucose (mg/dL) 232 H AST Troponin I - Diagnostic Findings Chest x-ray: image reviewed Assessment and Plan Plan: acute hypoxic respiratory failure, currently on 2 L of oxygen by nasal cannula Acute COPD exacerbation Acute decompensated heart failure Shortness of breath secondary to above Coronary artery disease with previous stenting of the LAD and circumflex and the patient has chronic low occluded RCA and occlusion of the mid to distal LAD CHF with impaired LV function with an ejection fraction of 30 to 35% with previous history of cardiac thrombus History of smoking History of alcoholism History of major depression Paroxysmal atrial fibrillation current rhythm is sinus and the patient has been maintained on long-term anticoagulation with Eliquis Hypertension Hyperlipidemia Kyphoscoliosis of the chest Plan Titrate oxygen flow to maintain saturation above 90%, currently on 2 L Start the patient on DuoNeb nebulized treatments [id number] IV Solu-Medrol 60 mg every 6 hours IV Lasix 40 mg every 12 hours Continue anticoagulation with Eliquis Cardiology follow-up in regards to the troponin leak Will continue to follow. Resume home medications.
[2024-04-15] MEDS: ATORVASTATIN 80 MG TAB PO SCH (20:23)
[2024-04-15 21:00] LABS: Glucose,Whole Blood 225 mg/dL (70-110)
[2024-04-16 05:56] LABS: Glucose,Whole Blood 184 mg/dL (70-110)
[2024-04-16 09:08] LABS: HCT 31.8 % (39.6-50.0); HGB 9.8 g/dL (13.0-17.0); MCH 24.9 pg (27.0-32.0); MCHC 30.8 g/dL (32.0-37.0); MCV 80.7 FL (80.0-97.0); Mean Platelet Volume 9.8 FL (9.5-12.2); NRBC Per 100 WBC 0 X 10*3/uL (0.00-0.01); Platelet Count 300 X 10*3/uL (140-440); RBC 3.94 X 10*6/uL (4.40-5.60); RDW 19.9 % (11.5-14.5); WBC 7.56 X 10*3/uL (4.50-10.00)
[2024-04-16 09:09] LABS: Basophils # (A) 0 X 10*3/uL (0.00-0.10); Basophils % (A) 0 %; Eosinophils # (A) 0 X 10*3/uL (0.04-0.35); Eosinophils % (A) 0 %; Lymphocytes # (A) 0.34 X 10*3/uL (0.90-5.00); Lymphocytes % (A) 4.5 %; Monocytes # (A) 0.25 X 10*3/uL (0.20-1.00); Monocytes % (A) 3.3 %; Neutrophils # (A) 6.94 X 10*3/uL (1.80-7.70); Neutrophils % (A) 91.8 %
[2024-04-16 09:37] LABS: ALT 34 U/L (10-49); AST 37 U/L (14-35); Albumin 4.1 g/dL (3.8-4.9); Albumin/Globulin Ratio 1.58 Ratio (1.60-3.17); Alkaline Phosphatase 100 U/L (41-126); BUN/Creat Ratio 28.11 Ratio (12.00-20.00); Blood Urea Nitrogen 25.3 mg/dL (9.0-27.0); Calcium 9.3 mg/dL (8.7-10.3); Carbon Dioxide 27.2 mmol/L (21.6-31.8); Chloride 93 mmol/L (96-109); Globulin 2.6 g/dL (1.6-3.3); Glucose 183 mg/dL (70-110); Potassium 3.4 mmol/L (3.5-5.5); Sodium 135 mmol/L (135-145); Total Bilirubin 1.1 mg/dL (0.3-1.2); Total Protein 6.7 g/dL (6.2-8.2)
--- NOTE | 2024-04-16 09:52 | P.CRDCN ---
History of Present Illness History of present illness: HISTORY OF PRESENT ILLNESS: This is a 58-year-old male with a past medical history significant for hypertension, hyperlipidemia, coronary artery disease, nicotine dependence, alcohol abuse, paroxysmal atrial fibrillation, and bipolar disorder. Patient follows in the office with Dr. Chaudhari. We have been asked to see the patient in consultation for CHF. Patient examined at the bedside. Patient presented to the hospital with a chief complaint of shortness of breath. Patient states over the past few days he has been feeling short of breath with exertion. He does report that he gained a few pounds at home. He denies any worsening lower extremity edema. He reports having mild palpitations at home. He currently denies any worsening shortness of breath with laying flat but states 2 days ago he did have shortness of breath while laying flat. He continues to smoke. He reports b etween 1 and 1-1/2 packs a day. He also reports continued alcohol use of 2-3 times a week. Blood pressures are soft with a recent reading of 97/62. DIAGNOSTICS: - EKG reveals sinus mechanism with no signs of acute ischemia - Chest xray chronic changes and mild cardiomegaly without acute pulmonary process - Laboratory data: WBC 7.56. Hemoglobin 9.8. Platelet count 300. D-dimer 0.56. Sodium 135. Potassium 3.4. BUN 25. Creatinine 0.9. proBNP 5270. Troponin 0.096. - Current home cardiac medications include amiodarone 200 mg daily, Eliquis 5 mg twice a day, aspirin 81 mg daily, Lipitor 80 mg daily, metoprolol succinate 25 mg daily - Most recent echocardiogram obtained in January 2024 revealed ejection fraction 30 to 35%, mild MR -Patient underwent Lexiscan on 10/05/2023 revealing markedly abnormal exam. There is global hypokinesis with estimated LVEF of 35% and large areas of fixed perfusion defect including the anterior septal wall and inferior wall. Correlate for large areas of old infarct/ischemic cardiomyopathy. Given the large amount of GI activity just adjacent, assessment for focal reversibility is very limited. - Cardiac catheterization history: 06/29/2023 revealing severe calcifications of the coronary arteries, patent stent in the proximal mid LAD with chronic total occlusion distally, chronic total occlusion of the proximal RCA with [id number] collaterals, total occlusion of the proximal left circumflex with slow flow distally. Elevated LVEDP. The patient was transferred to [facility] and underwent stenting of the proximal to mid circumflex and mid second obtuse marginal branch - Cardiac catheterization history: October 2023 revealing severely calcified coronary arteries, patent stent in the proximal LAD and left circumflex, chronically occluded proximal RCA and mid to distal LAD, normal LVEDP. REVIEW OF SYSTEMS: At the time of my exam: CONSTITUTIONAL: Denies fever or chills. HEENT: Denies blurred vision, vision changes, or eye pain. Denies hemoptysis CARDIOVASCULAR: Denies chest pain. Denies orthopnea. Denies PND. Denies palpitations RESPIRATORY: Denies shortness of breath. GASTROINTESTINAL: Denies abdominal pain. Denies nausea or vomiting. HEMATOLOGIC: Denies bleeding disorders. GENITOURINARY: Denies any blood in urine. SKIN: Denies pruitis. Denies rash. PHYSICAL EXAM: VITAL SIGNS: Reviewed. GENERAL: Well-developed in no acute distress. HEENT: Head is normocephalic. Pupils are equal, round. Sclerae anicteric. Mucous membranes of the mouth are moist. Neck supple. No JVD or thyromegaly LUNGS: Respirations even and unlabored. Lungs diminished bilaterally. HEART: Regular rate and rhythm. S1 and S2 heard. ABDOMEN: Soft. Nondistended. Nontender. EXTREMITIES: Normal range of motion. No clubbing or cyanosis. Peripheral pulses intact. No lower extremity edema NEUROLOGIC: Awake and alert. Oriented x 3. ASSESSMENT: Shortness of breath Acute on chronic heart failure with reduced EF Acute COPD exacerbation Minimally elevated troponin, type II CT, secondary to oxygen supply/demand mismatch Coronary artery disease with previous stenting of the proximal LAD and left circumflex Chronically occluded proximal RCA and mid to distal LAD Paroxysmal atrial fibrillation, on [facility] outpatient Ischemic cardiomyopathy History of alcohol abuse History of apical thrombus per echocardiogram, diagnosed September 2023 Hypertension Hyperlipidemia Bipolar disorder Anxiety Depression PTSD Nicotine dependence PLAN: No need to repeat echocardiogram as this was performed in January 2024 Resume home cardiac medications Add Aldactone, lisinopril, and Farxiga due to cardiomyopathy. Increase medications as patient's blood pressures will tolerate. Blood pressures are soft this morning. Recommend eventual AICD secondary to cardiomyopathy. Patient had previously been referred to EP but he did not come to his appointment. Continue IV Lasix 40 mg every 12 hours Daily weights, accurate intake and output, and monitoring of kidney function. Smoking cessation recommended Abstinence from alcohol encouraged Further recommendations pending patient course Nurse practitioner note has been reviewed by physician. Signing provider agrees with the documented findings, assessment, and plan of care documented by [employer] ADVISOR as a scribe. Past Medical History Past Medical History: COPD, GERD/Reflux, GI Bleed, Hypertension, Myocardial Infarction (CT), Pneumonia, Skin Disorder Additional Past Medical History / Comment(s): ETOH abuse with delirium tremors, lower GI bleed, IBS, chronic iron deficiency anemia, hypomagnesemia, hyperbilirubinemia, anorexia, vertigo, nephrolithiasis-passed stone on his own, chronic low back/cervical pain, DDD, kyphosis, scoliosis, coccyx pressure ulcer pt states is mostly healed. Dry and itchy skin back in high school. 2 heart attacks, one in December (2020) second in February (2020). Last Myocardial Infarction Date:: june 2023 History of Any Multi-Drug Resistant Organisms: None Reported Past Surgical History: Bariatric Surgery, Heart Catheterization With Stent, Hernia Repair, Orthopedic Surgery, Tonsillectomy Additional Past Surgical History / Comment(s): Right inner Forearm-metal plate, gastric bypass, incisional hernia surgery x2, EGDs, colonoscopies. 2 Stents placed in December 2020; bilateral knee surgeries Past Anesthesia/Blood Transfusion Reactions: No Reported Reaction Date of Last Stent Placement:: december 2020 Past Psychological History: Anxiety, Bipolar, Depression, PTSD Smoking Status: Current every day smoker Past Alcohol Use History: Abuse, Daily Past Drug Use History: None Reported - Past Family History Mother History Unknown: Yes Family Medical History: Hypertension Additional Family Medical History / Comment(s): Lupus. Mother is living. Father History Unknown: Yes Family Medical History: Liver Disease Additional Family Medical History / Comment(s): ETOH abuse. of cirrhosis complications. Medications and Allergies Home Medications Medication Instructions Recorded Confirmed Type Atorvastatin [Lipitor] 80 mg PO DIRECTED 03/30/21 04/15/24 History Omeprazole [PriLOSEC] 20 mg PO DIRECTED 12/06/22 04/15/24 History Amiodarone [Cordarone] 200 mg PO DIRECTED 06/28/23 04/15/24 History DULoxetine HCL [Cymbalta] 60 mg PO DIRECTED 06/28/23 04/15/24 History Apixaban [Eliquis] 5 mg PO DIRECTED 10/04/23 04/15/24 History Aspirin 81 mg PO DIRECTED 01/31/24 04/15/24 History Nitroglycerin Sl Tabs [Nitrostat] 0.4 mg SUBLINGUAL Q5M PRN #20 tab 02/01/24 04/15/24 Rx Metoprolol Succinate (ER) [Toprol 25 mg PO DIRECTED 02/25/24 04/15/24 History XL] ARIPiprazole [Abilify] 10 mg PO DAILY 15 Days #15 tab 04/10/24 04/15/24 Rx Albuterol Inhaler [Ventolin Hfa 2 puff INHALATION RT-QID PRN each 04/10/24 04/15/24 Rx Inhaler] metFORMIN HCL [Glucophage] 500 mg PO BID-W/MEALS 15 Days #30 04/10/24 04/15/24 Rx tab Allergies Allergy/AdvReac Type Severity Reaction Status Date / Time Iodinated Contrast Media Allergy Itching-see Verified 04/15/24 08:21 comment fentanyl AdvReac Itching Verified 04/15/24 08:21 Physical Exam Vitals: Vital Signs Temp Pulse Pulse Resp BP BP Pulse Ox 04/16/24 08:21 96 04/16/24 08:09 100 04/16/24 07:22 97.8 F 83 18 97/62 95 04/16/24 01:29 98.3 F 91 18 92/62 97 04/15/24 21:47 93 04/15/24 21:39 82 04/15/24 20:00 18 04/15/24 19:22 98.2 F 83 18 99/62 97 04/15/24 17:10 98.2 F 93 20 103/72 97 04/15/24 12:21 108 H 04/15/24 12:18 103 H 101/67 04/15/24 12:10 103 H 04/15/24 10:27 101 H 20 101/79 98 Intake and Output 04/15/24 04/16/24 04/16/24 22:59 06:59 14:59 Intake Total 120 240 Output Total 1200 Balance -1080 240 Intake: Oral 120 240 Output: Urine 1200 Other: Voiding Method Toilet # Voids 1 2 Weight 77.111 kg 77.6 kg Results 04/16/24 03:03 04/16/24 03:03 Cardiac Enzymes 04/16/24 Range/Units 03:03 AST 37 H (14-35) U/L CBC 04/16/24 Range/Units 03:03 WBC 7.56 (4.50-10.00) X 10*3/uL RBC 3.94 L (4.40-5.60) X 10*6/uL Hgb 9.8 L (13.0-17.0) g/dL Hct 31.8 L (39.6-50.0) % Plt Count 300 (140-440) X 10*3/uL Comprehensive Metabolic Panel 04/16/24 Range/Units 03:03 Sodium 135 (135-145) mmol/L Potassium 3.4 L (3.5-5.5) mmol/L Chloride 93 L (96-109) mmol/L Carbon Dioxide 27.2 (21.6-31.8) mmol/L BUN 25.3 (9.0-27.0) mg/dL Creatinine 0.9 (0.6-1.5) mg/dL Glucose 183 H (70-110) mg/dL Calcium 9.3 (8.7-10.3) mg/dL AST 37 H (14-35) U/L ALT 34 (10-49) U/L Alkaline Phosphatase 100 (41-126) U/L Total Protein 6.7 (6.2-8.2) g/dL Albumin 4.1 (3.8-4.9) g/dL Current Medications Generic Name Dose Route Start Last Admin Trade Name Freq PRN Reason Stop Dose Admin Acetaminophen 650 mg 04/15/24 00:13 Acetaminophen Tab 325 Mg Tab PO Q4HR PRN Mild Pain or Fever > 100.5 Albuterol Sulfate 2.5 mg 04/15/24 10:31 Albuterol Nebulized 2.5 Mg/3 Ml INHALATION RT-QID PRN Shortness Of Breath Or Wheezing Albuterol/Ipratropium 3 ml 04/15/24 00:13 Ipratropium-Albuterol 3 Ml Neb INHALATION RT-Q2H PRN Shortness Of Breath Or Wheezing Albuterol/Ipratropium 3 ml 04/15/24 08:00 04/16/24 08:09 Ipratropium-Albuterol 3 Ml Neb INHALATION 3 ml RT-QID ROLA Administration Amiodarone HCl 200 mg 04/15/24 10:45 04/15/24 12:10 Amiodarone 200 Mg Tab PO 200 mg DAILY ROLA Administration Apixaban 5 mg 04/15/24 10:45 04/15/24 20:23 Apixaban 5 Mg Tab PO 5 mg BID ROLA Administration Protocol Aripiprazole 10 mg 04/15/24 10:45 04/15/24 12:11 Aripiprazole 10 Mg Tab PO 10 mg DAILY ROLA Administration Aspirin 81 mg 04/15/24 10:45 04/15/24 12:10 Aspirin 81 Mg PO 81 mg DAILY ROLA Administration Atorvastatin Calcium 80 mg 04/15/24 21:00 04/15/24 20:23 Atorvastatin 80 Mg Tab PO 80 mg HS ROLA Administration Azithromycin 500 mg 04/15/24 09:00 04/15/24 10:50 Azithromycin 500 Mg Tab PO 04/17/24 09:01 500 mg DAILY ROLA Administration Protocol Dapagliflozin 10 mg 04/16/24 09:00 Dapagliflozin Propanediol 10 Mg Tablet PO DAILY ROLA Dextrose/Water 25 ml 04/15/24 10:32 Dextrose 50% Syringe 50 Ml IVP PER PROTOCOL PRN Hypoglycemia Protocol Dextrose/Water 50 ml 04/15/24 10:32 Dextrose 50% Syringe 50 Ml IVP PER PROTOCOL PRN Hypoglycemia Protocol Duloxetine HCl 60 mg 04/15/24 10:45 04/15/24 12:11 Duloxetine Hcl 60 Mg Capsule.Dr PO 60 mg DAILY ROLA Administration Furosemide 40 mg 04/15/24 09:00 04/15/24 20:23 Furosemide 10 Mg/Ml 4 Ml Vial IV 40 mg Q12HR ROLA Administration Insulin Aspart 0 unit 04/15/24 12:30 04/15/24 21:14 Insulin Aspart (Novolog) 100 Unit/Ml Vial SQ 4 unit ACHS ROLA Administration Protocol Lisinopril 2.5 mg 04/16/24 09:00 Lisinopril 2.5 Mg Tab PO DAILY ROLA Metformin HCl 500 mg 04/15/24 17:30 04/15/24 18:25 Metformin 500 Mg Tab PO Not Given BID-W/MEALS [facility] Methylprednisolone Sodium Succinate 60 mg 04/15/24 06:00 04/16/24 05:01 Methylprednisolone Sod Succi 125 Mg/2 Ml Vial IV 60 mg Q6HR ROLA Administration Metoprolol Succinate 25 mg 04/15/24 10:45 04/15/24 12:10 Metoprolol Succinate (Er) 25 Mg Tab.Er.24h PO 25 mg DAILY ROLA Administration Naloxone HCl 0.2 mg 04/15/24 00:13 Naloxone 0.4 Mg/Ml 1 Ml Vial IVP Q2M PRN Opioid Reversal Nicotine 1 patch 04/15/24 13:45 04/15/24 14:23 Nicotine 14mg/24hr Patch TRANSDERM Not Given DAILY ROLA Nitroglycerin 0.4 mg 04/15/24 10:31 Nitroglycerin Sl Tabs 0.4 Mg Tab SUBLINGUAL Q5M PRN Chest Pain Pantoprazole Sodium 40 mg 04/15/24 10:45 04/15/24 12:11 Pantoprazole 40 Mg Tablet PO 40 mg [id number] ROLA Administration Spironolactone 12.5 mg 04/16/24 09:00 Spironolactone 25 Mg Tab PO DAILY ROLA Intake and Output 04/15/24 04/16/24 04/16/24 22:59 06:59 14:59 Intake Total 120 240 Output Total 1200 Balance -1080 240 Intake: Oral 120 240 Output: Urine 1200 Other: Voiding Method Toilet # Voids 1 2 Weight 77.111 kg 77.6 kg 04/16/24 03:03 04/16/24 03:03
[2024-04-16] MEDS: SPIRONOLACTONE 25 MG TAB PO SCH (10:00)
[2024-04-16] MEDS: DAPAGLIFLOZIN PROPANEDIOL 10 MG TABLET PO SCH (10:06)
[2024-04-16 11:54] LABS: Glucose,Whole Blood 216 mg/dL (70-110)
[2024-04-16 16:29] LABS: Glucose,Whole Blood 167 mg/dL (70-110)
--- NOTE | 2024-04-16 18:15 | P.PN ---
Subjective Progress Note Date: 04/16/24 This is a 58-year-old female patient, known history of coronary artery disease, previous coronary stenting, known history of ischemic cardiomyopathy with a echocardiogram from September 2023 revealing an ejection fraction of 20 to 25% with mild pulm hypertension and apical thrombus along with moderate mitral regurgitation. Repeat echo from 01/28/2024 showed an ejection fraction of 30 to 35%, grade 2 diastolic heart failure, reduced global LV function,. Previous CT of the chest from 2023 her previous cardiac catheterization from October 2023 revealing calcified coronaries, patent stent to the LAD and circumflex and chronic occluded proximal RCA and mid to distal LAD with a normal left ventricular end-diastolic pressure. The patient is also known to have COPD, paroxysmal atrial fibrillation, hypertension hyperlipidemia previous history of alcohol abuse along with chronic anxiety/depression. The patient was recently treated for alcohol abuse and major depression and the patient was discharged home on Cymbalta and Abilify. The patient is coming to the house because of worsening shortness of breath over the past 3 days. No chest pain. She had a mild cough. Diminished appetite. She was placed on room air oxygen with a pulse ox of 98%. Her blood work from today showing a white cell count of 10.5 with hemoglobin 10.6 and a platelet count of 330. Normal coagulation profile. Normal electrolytes. Normal renal function. Troponin was 0.096. proBNP level was 5270. LFTs are essentially baseline with an AST of 178, ALT of 43 with an alkaline phosphatase of 96. The chest x-ray showed cardiomegaly, chronic elevation of the left hemidiaphragm along with chronic bibasilar pulmonary atele ctatic changes. Old right-sided lateral rib fractures. Showed small to moderate-sized right-sided pleural effusion and elevation of the left hemidiaphragm with possible posterior herniation. No evidence of any pulmonary embolism. He is a smoker and he is smoking 1 PPD and he is drinking Etoh (binge drinking). He is using albuterol HFA as needed. NO maintenance inhalers and he has no home 02. 04/16/2024, the patient is being seen for a follow-up. The patient is feeling much better compared to yesterday. The patient has been able to diurese well and the overall fluid balance has been negative over the past 24 hours. Net fluid balance has been negative approximately 1 L. Patient is currently on room air oxygen. WBC count 7.5 with a hemoglobin 9.8 and a platelet count of 300. BUN is 25 with a creatinine of 0.9 and the rest of the electrolytes are all within normal limits. Remains on bronchodilators. Remains on IV Solu-Medrol 60 mg every 6 hours regarding history of exacerbation. Remains on Lasix 40 mg IV every 12 hours. He is also on empiric antibiotic coverage with Zithromax. Rest of the medications remain unchanged. Denies having any other specific complaints on today's evaluation. Objective - Vital Signs Vital signs: Vital Signs Temp 97.8 F 04/16/24 07:22 Pulse 96 04/16/24 08:21 Resp 18 04/16/24 07:22 BP 97/62 04/16/24 07:22 Pulse Ox 95 04/16/24 07:22 FiO2 Intake & Output 04/15/24 04/16/24 04/16/24 18:59 06:59 18:59 Intake Total 360 Output Total 1200 Balance -1200 360 Weight 77.111 kg 77.6 kg Intake: Oral 360 Output: Urine 1200 Other: Voiding Method Toilet # Voids 2 - Exam General: Nontoxic, no distress and appears stated age. No significant respiratory distress, currently on room air oxygen Derm: Skin warm and dry, normal coloration for ethnicity. Head: Atraumatic, normocephalic and symmetric. Eyes: EOMs intact, no lid lag, and anicteric sclera Mouth: no lip lesions, mucus membranes moist Cardiovascular: regular rate and rhythm with normal S1S2, systolic murmur, positive posterior tibial pulses bilaterally Lungs: Diminished breath sounds, scattered rhonchi in the lung base bilaterally, scattered expiratory wheezes Abdominal: soft, nontender to palpation, no guarding, no appreciable organomegaly Ext: ROM intact. No gross muscle atrophy, no edema, no contractures Neuro: Speech clear, face symmetrical and CN II-XII grossly intact with no noted focal neuro deficits Psych: Alert and oriented to person, place, time, and situation. Appropriate and pleasant affect. - Labs CBC & Chem 7: 04/16/24 03:03 04/16/24 03:03 Labs: Abnormal Lab Results - Last 24 Hours (Table) 04/15/24 04/15/24 04/15/24 Range/Units 12:18 17:22 20:59 RBC (4.40-5.60) X 10*6/uL Hgb (13.0-17.0) g/dL Hct (39.6-50.0) % MCH (27.0-32.0) pg MCHC (32.0-37.0) g/dL RDW (11.5-14.5) % Lymphocytes # (0.90-5.00) X 10*3/uL Eosinophils # (0.04-0.35) X 10*3/uL Potassium (3.5-5.5) mmol/L Chloride (96-109) mmol/L Anion Gap (4.00-12.00) mmol/L BUN/Creatinine Ratio (12.00-20.00) Ratio Glucose (70-110) mg/dL POC Glucose (mg/dL) 232 H 225 H (70-110) mg/dL Hemoglobin A1c (<=6.0) % AST (14-35) U/L Albumin/Globulin Ratio (1.60-3.17) Ratio Urine Ketones 1+ H (Negative) Urine Blood Moderate H (Negative) Urine RBC 70 H (0-5) /hpf Urine Mucus Rare H (None) /hpf 04/16/24 04/16/24 04/16/24 Range/Units 03:03 03:03 03:03 RBC 3.94 L (4.40-5.60) X 10*6/uL Hgb 9.8 L (13.0-17.0) g/dL Hct 31.8 L (39.6-50.0) % MCH 24.9 L (27.0-32.0) pg MCHC 30.8 L (32.0-37.0) g/dL RDW 19.9 H (11.5-14.5) % Lymphocytes # 0.34 L (0.90-5.00) X 10*3/uL Eosinophils # 0 L (0.04-0.35) X 10*3/uL Potassium 3.4 L (3.5-5.5) mmol/L Chloride 93 L (96-109) mmol/L Anion Gap 14.80 H (4.00-12.00) mmol/L BUN/Creatinine Ratio 28.11 H (12.00-20.00) Ratio Glucose 183 H (70-110) mg/dL POC Glucose (mg/dL) (70-110) mg/dL Hemoglobin A1c 6.2 H (<=6.0) % AST 37 H (14-35) U/L Albumin/Globulin Ratio 1.58 L (1.60-3.17) Ratio Urine Ketones (Negative) Urine Blood (Negative) Urine RBC (0-5) /hpf Urine Mucus (None) /hpf 04/16/24 Range/Units 05:54 RBC (4.40-5.60) X 10*6/uL Hgb (13.0-17.0) g/dL Hct (39.6-50.0) % MCH (27.0-32.0) pg MCHC (32.0-37.0) g/dL RDW (11.5-14.5) % Lymphocytes # (0.90-5.00) X 10*3/uL Eosinophils # (0.04-0.35) X 10*3/uL Potassium (3.5-5.5) mmol/L Chloride (96-109) mmol/L Anion Gap (4.00-12.00) mmol/L BUN/Creatinine Ratio (12.00-20.00) Ratio Glucose (70-110) mg/dL POC Glucose (mg/dL) 184 H (70-110) mg/dL Hemoglobin A1c (<=6.0) % AST (14-35) U/L Albumin/Globulin Ratio (1.60-3.17) Ratio Urine Ketones (Negative) Urine Blood (Negative) Urine RBC (0-5) /hpf Urine Mucus (None) /hpf Assessment and Plan Plan: acute hypoxic respiratory failure, improved and the patient is currently on room air oxygen Acute COPD exacerbation, maintained on a combination of bronchodilators and IV steroids Acute decompensated heart failure, improved and the patient is currently being diuresed with Lasix Shortness of breath secondary to above Coronary artery disease with previous stenting of the LAD and circumflex and the patient has chronic low occluded RCA and occlusion of the mid to distal LAD CHF with impaired LV function with an ejection fraction of 30 to 35% with pre vious history of cardiac thrombus History of smoking History of alcoholism History of major depression Paroxysmal atrial fibrillation current rhythm is sinus and the patient has been maintained on long-term anticoagulation with Eliquis Hypertension Hyperlipidemia Kyphoscoliosis of the chest Plan Clinically improved and oxygenation is improved and the patient is currently on room air oxygen Continue DuoNeb nebulized treatments [id number] IV Solu-Medrol 60 mg every 6 hours to be continued IV Lasix 40 mg every 12 hours to be continued Continue anticoagulation with Eliquis Cardiology follow-up in regards to the troponin leak, this is likely a type II myocardial ischemia. Aldactone was added. The patient was kept also on lisinopril and Farxiga regarding his cardiomyopathy. Will continue IV Lasix for now. Will continue to follow.
[2024-04-16 20:21] LABS: Glucose,Whole Blood 213 mg/dL (70-110)
[2024-04-17 06:24] LABS: Glucose,Whole Blood 176 mg/dL (70-110)
[2024-04-17 08:21] LABS: Basophils # (A) 0.01 X 10*3/uL (0.00-0.10); Basophils % (A) 0.1 %; Eosinophils # (A) 0 X 10*3/uL (0.04-0.35); Eosinophils % (A) 0 %; HCT 31.8 % (39.6-50.0); HGB 9.5 g/dL (13.0-17.0); Lymphocytes # (A) 0.36 X 10*3/uL (0.90-5.00); MCH 24.4 pg (27.0-32.0); MCHC 29.9 g/dL (32.0-37.0); MCV 81.7 FL (80.0-97.0); Mean Platelet Volume 10.5 FL (9.5-12.2); Monocytes # (A) 0.31 X 10*3/uL (0.20-1.00); Monocytes % (A) 2.6 %; NRBC Per 100 WBC 0 X 10*3/uL (0.00-0.01); Neutrophils # (A) 11.15 X 10*3/uL (1.80-7.70); Neutrophils % (A) 93.9 %; Platelet Count 318 X 10*3/uL (140-440); RBC 3.89 X 10*6/uL (4.40-5.60); RDW 20.1 % (11.5-14.5); WBC 11.88 X 10*3/uL (4.50-10.00)
[2024-04-17 09:20] LABS: Blood Urea Nitrogen 34.7 mg/dL (9.0-27.0); Calcium 9.3 mg/dL (8.7-10.3); Chloride 93 mmol/L (96-109); Glucose 162 mg/dL (70-110); Potassium 3.8 mmol/L (3.5-5.5); Sodium 135 mmol/L (135-145)
[2024-04-17] MEDS: FUROSEMIDE 40 MG TAB PO SCH (10:15)
[2024-04-17] MEDS: AMIODARONE 100 MG TAB PO SCH (10:16)
--- NOTE | 2024-04-17 10:22 | P.PN ---
Subjective HISTORY OF PRESENT ILLNESS: This is a 58-year-old male with a past medical history significant for hypertension, hyperlipidemia, coronary artery disease, nicotine dependence, alcohol abuse, paroxysmal atrial fibrillation, and bipolar disorder. Patient follows in the office with Dr. Chaudhari. We have been asked to see the patient in consultation for CHF. Patient examined at the bedside. Patient presented to the hospital with a chief complaint of shortness of breath. Patient states over the past few days he has been feeling short of breath with exertion. He does report that he gained a few pounds at home. He denies any worsening lower extremity edema. He reports having mild palpitations at home. He currently denies any worsening shortness of breath with laying flat but states 2 days ago he did have shortness of breath while laying flat. He continues to smoke. He reports between 1 and 1-1/2 packs a day. He also reports continued alcohol use of 2-3 times a week. Blood pressures are soft with a recent reading of 97/62. DIAGNOSTICS: - EKG reveals sinus mechanism with no signs of acute ischemia - Chest xray chronic changes and mild cardiomegaly without acute pulmonary process - Laboratory data: WBC 7.56. Hemoglobin 9.8. Platelet count 300. D-dimer 0.56. Sodium 135. Potassium 3.4. BUN 25. Creatinine 0.9. proBNP 5270. Troponin 0.096. - Current home cardiac medications include amiodarone 200 mg daily, Eliquis 5 mg twice a day, aspirin 81 mg daily, Lipitor 80 mg daily, metoprolol succinate 25 mg daily - Most recent echocardiogram obtained in January 2024 revealed ejection fraction 30 to 35%, mild MR -Patient underwent Lexiscan on 10/05/2023 revealing markedly abnormal exam. There is global hypokinesis with estimated LVEF of 35% and large areas of fixed perfusion defect including the anterior septal wall and inferior wall. Correlate for large areas of old infarct/ischemic cardiomyopathy. Given the large amount of GI activity just adjacent, assessment for focal reversibility is very limited. - Cardiac catheterization history: 06/29/2023 revealing severe calcifications of the coronary arteries, patent stent in the proximal mid LAD with chronic total occlusion distally, chronic total occlusion of the proximal RCA with [id number] collaterals, total occlusion of the proximal left circumflex with slow flow distally. Elevated LVEDP. The patient was transferred to [facility] and underwent stenting of the proximal to mid circumflex and mid second obtuse marginal branch - Cardiac catheterization history: October 2023 revealing severely calcified coronary arteries, patent stent in the proximal LAD and left circumflex, chronically occluded proximal RCA and mid to distal LAD, normal LVEDP. 04/17/2024 Patient examined this morning at the bedside. Patient denies chest pain or pressure. He denies shortness of breath. Blood pressures remain on the lower side but stable. Recent readings of 94/51 and 108/43. PHYSICAL EXAM: VITAL SIGNS: Reviewed. GENERAL: Well-developed in no acute distress. HEENT: Head is normocephalic. Pupils are equal, round. Sclerae anicteric. Mucous membranes of the mouth are moist. Neck supple. No JVD or thyromegaly LUNGS: Respirations even and unlabored. Lungs clear to auscultation. HEART: Regular rate and rhythm. S1 and S2 heard. ABDOMEN: Soft. Nondistended. Nontender. EXTREMITIES: Normal range of motion. No clubbing or cyanosis. Peripheral pulses intact. No lower extremity edema NEUROLOGIC: Awake and alert. Oriented x 3. ASSESSMENT: Shortness of breath Acute on chronic heart failure with reduced EF Acute COPD exacerbation Minimally elevated troponin, type II MO, secondary to oxygen supply/demand mismatch Coronary artery disease with previous stenting of the proximal LAD and left circumflex Chronically occluded proximal RCA and mid to distal LAD Paroxysmal atrial fibrillation, on [facility] outpatient Ischemic cardiomyopathy History of alcohol abuse History of apical thrombus per echocardiogram, diagnosed September 2023 Hypertension Hyperlipidemia Bipolar disorder Anxiety Depression PTSD Nicotine dependence PLAN: Discontinue IV Lasix. Begin oral Lasix 40 mg twice a day Decrease oral amiodarone to 100 mg daily Aldactone, lisinopril, and Farxiga added yesterday due to cardiomyopathy. Continue these medications Recommend eventual AICD secondary to cardiomyopathy. Patient had previously been referred to EP but he did not come to his appointment. Smoking cessation recommended Abstinence from alcohol encouraged Patient is stable for discharge home today from a cardiac standpoint We will sign off. Please reconsult if needed. Patient to follow-up postdischarge with Dr. Chaudhari Nurse practitioner note has been reviewed by physician. Signing provider agrees with the documented findings, assessment, and plan of care documented by [employer] as a scribe. Objective - Vital Signs Vital signs: Vital Signs Temp 98.4 F 04/17/24 07:45 Pulse 82 09/26/24 09:21 Resp 17 04/17/24 07:45 BP 108/43 04/17/24 07:45 Pulse Ox 97 04/17/24 07:45 FiO2 Intake & Output 04/16/24 04/17/24 04/17/24 18:59 06:59 18:59 Weight 76 kg 73.7 kg Other: # Voids 1 - Labs CBC & Chem 7: 04/17/24 03:37 04/17/24 03:37 Labs: Abnormal Lab Results - Last 24 Hours (Table) 04/16/24 04/16/24 04/16/24 Range/Units 11:53 16:28 20:19 WBC (4.50-10.00) X 10*3/uL RBC (4.40-5.60) X 10*6/uL Hgb (13.0-17.0) g/dL Hct (39.6-50.0) % MCH (27.0-32.0) pg MCHC (32.0-37.0) g/dL RDW (11.5-14.5) % Immature Gran # (0.00-0.04) X 10*3/uL Neutrophils # (1.80-7.70) X 10*3/uL Lymphocytes # (0.90-5.00) X 10*3/uL Eosinophils # (0.04-0.35) X 10*3/uL Chloride (96-109) mmol/L Anion Gap (4.00-12.00) mmol/L BUN (9.0-27.0) mg/dL BUN/Creatinine Ratio (12.00-20.00) Ratio Glucose (70-110) mg/dL POC Glucose (mg/dL) 216 H 167 H 213 H (70-110) mg/dL 04/17/24 04/17/24 04/17/24 Range/Units 03:37 03:37 06:23 WBC 11.88 H (4.50-10.00) X 10*3/uL RBC 3.89 L (4.40-5.60) X 10*6/uL Hgb 9.5 L (13.0-17.0) g/dL Hct 31.8 L (39.6-50.0) % MCH 24.4 L (27.0-32.0) pg MCHC 29.9 L (32.0-37.0) g/dL RDW 20.1 H (11.5-14.5) % Immature Gran # 0.05 H (0.00-0.04) X 10*3/uL Neutrophils # 11.15 H (1.80-7.70) X 10*3/uL Lymphocytes # 0.36 L (0.90-5.00) X 10*3/uL Eosinophils # 0 L (0.04-0.35) X 10*3/uL Chloride 93 L (96-109) mmol/L Anion Gap 16.00 H (4.00-12.00) mmol/L BUN 34.7 H (9.0-27.0) mg/dL BUN/Creatinine Ratio 34.70 H (12.00-20.00) Ratio Glucose 162 H (70-110) mg/dL POC Glucose (mg/dL) 176 H (70-110) mg/dL
[2024-04-17 11:20] LABS: Glucose,Whole Blood 186 mg/dL (70-110)
[2024-04-17 13:12] VITALS: BP 93/56; RESP 18; TEMP 97.9
--- NOTE | 2024-04-17 14:48 | PN ---
PROGRESS NOTE DATE OF SERVICE: 04/15/2024 CHIEF COMPLAINT: Shortness of breath. HISTORY OF PRESENT ILLNESS: This is a 58-year-old gentleman with a past medical history of multiple problems including COPD, history of CAD, being followed by [facility] and Cardiology was complaining of shortness of breath. Apparently, the patient also had multiple psych issues and substance abuse history also. There is no history of any fever, rigors, or chills. PAST MEDICAL HISTORY: COPD, myocardial infarction, pneumonia. Rest of the history and rest of the chart is also reviewed. HOME MEDICATIONS: Reviewed include metformin, doses and rest of medications reviewed. ALLERGIES: Iodinated contrast dye. FAMILY HISTORY: History of lupus. SOCIAL HISTORY: Alcohol abuse history. He is smoking. REVIEW OF SYSTEMS: Fourteen-point review is negative except as mentioned earlier. PHYSICAL EXAMINATION: VITAL SIGNS: Pulse is 101, blood pressure 101/70, respirations 20. HEENT: Conjunctivae normal. NECK: No JVD. CARDIOVASCULAR: S1, S2. RESPIRATIONS: Breath sounds diminished at the bases. Bilateral scattered rhonchi and coarse crackles. ABDOMEN: Soft. LEGS: No edema. NERVOUS SYSTEM: Nonfocal. SKIN: No ulcer, rash, bleeding. JOINTS: No active deforming arthropathy. LABORATORY DATA: Hemoglobin 10.6, rest of the labs are noted. Troponin 0.096. BNP 5270. 2D echo reviewed. ASSESSMENT: 1. Congestive heart failure acute exacerbation. Acute on chronic systolic dysfunction, ejection fraction is 30% to 35%. 2. Chronic obstructive pulmonary disease acute exacerbation, rule out pneumonia. 3. Hypertension. 4. History of coronary artery disease stent. 5. History of EtOH abuse. 6. History of bariatric surgery. 7. Anxiety, bipolar depression, posttraumatic stress disorder. RECOMMENDATIONS AND DISCUSSION: This is a 58-year-old gentleman who presented with multiple complex medical issues. At this time, the patient had shortness of breath, possibly multifactorial CHF and COPD exacerbation. I would recommend IV Lasix, bronchodilators, steroids, D-dimer. If the D-dimer is positive, I recommend V/Q scan, otherwise Pulmonary, Cardiology consultations. Monitor blood sugars closely. Prognosis guarded because of multiple complex medical issues. Further recommendations to follow. See orders for further details. The patient also will be started on IV steroids as DVT prophylaxis. Resume the home medications once they are confirmed. MMODL / IJN: [id number] /
--- NOTE | 2024-04-17 14:51 | PN ---
PROGRESS NOTE DATE OF SERVICE: 04/16/2024 SUBJECTIVE: This is a 58-year-old gentleman, who was admitted with shortness of breath. This is a combination of possible COPD and CHF, is being closely monitored. No chest pain. No palpitation. OBJECTIVE: VITAL SIGNS: Pulse is 93, blood pressure 97/60, respirations 18. CHEST: A few scattered rhonchi and crackles. ABDOMEN: Soft. NERVOUS SYSTEM: Nonfocal. LABORATORY DATA: Hemoglobin 9.8. ASSESSMENT: 1. Shortness of breath with possible chronic obstructive pulmonary disease, congestive heart failure acute exacerbation. 2. History of coronary artery disease stent. 3. Normocytic anemia. 4. Multiple complex medical issues. RECOMMENDATIONS AND DISCUSSION: Recommend to continue current management and continue symptomatic treatment. Continue with Lasix, also bronchodilators. Recommend to repeat labs in the morning. Closely follow with Cardiology, Pulmonology. Guarded prognosis. Further recommendations to follow. MMODL / IJN: [id number] /
[2024-04-17 15:58] VITALS: PULSE 84
[2024-04-17 16:57] LABS: Glucose,Whole Blood 184 mg/dL (70-110)
--- NOTE | 2024-04-17 19:57 | P.PN ---
Subjective Progress Note Date: 04/17/24 This is a 58-year-old female patient, known history of coronary artery disease, previous coronary stenting, known history of ischemic cardiomyopathy with a echocardiogram from September 2023 revealing an ejection fraction of 20 to 25% with mild pulm hypertension and apical thrombus along with moderate mitral regurgitation. Repeat echo from 01/28/2024 showed an ejection fraction of 30 to 35%, grade 2 diastolic heart failure, reduced global LV function,. Previous CT of the chest from 2023 her previous cardiac catheterization from October 2023 revealing calcified coronaries, patent stent to the LAD and circumflex and chronic occluded proximal RCA and mid to distal LAD with a normal left ventricular end-diastolic pressure. The patient is also known to have COPD, paroxysmal atrial fibrillation, hypertension hyperlipidemia previous history of alcohol abuse along with chronic anxiety/depression. The patient was recently treated for alcohol abuse and major depression and the patient was discharged home on Cymbalta and Abilify. The patient is coming to the house because of worsening shortness of breath over the past 3 days. No chest pain. She had a mild cough. Diminished appetite. She was placed on room air oxygen with a pulse ox of 98%. Her blood work from today showing a white cell count of 10.5 with hemoglobin 10.6 and a platelet count of 330. Normal coagulation profile. Normal electrolytes. Normal renal function. Troponin was 0.096. proBNP level was 5270. LFTs are essentially baseline with an AST of 178, ALT of 43 with an alkaline phosphatase of 96. The chest x-ray showed cardiomegaly, chronic elevation of the left hemidiaphragm along with chronic bibasilar pulmonary atele ctatic changes. Old right-sided lateral rib fractures. Showed small to moderate-sized right-sided pleural effusion and elevation of the left hemidiaphragm with possible posterior herniation. No evidence of any pulmonary embolism. He is a smoker and he is smoking 1 PPD and he is drinking Etoh (binge drinking). He is using albuterol HFA as needed. NO maintenance inhalers and he has no home 02. 04/16/2024, the patient is being seen for a follow-up. The patient is feeling much better compared to yesterday. The patient has been able to diurese well and the overall fluid balance has been negative over the past 24 hours. Net fluid balance has been negative approximately 1 L. Patient is currently on room air oxygen. WBC count 7.5 with a hemoglobin 9.8 and a platelet count of 300. BUN is 25 with a creatinine of 0.9 and the rest of the electrolytes are all within normal limits. Remains on bronchodilators. Remains on IV Solu-Medrol 60 mg every 6 hours regarding history of exacerbation. Remains on Lasix 40 mg IV every 12 hours. He is also on empiric antibiotic coverage with Zithromax. Rest of the medications remain unchanged. Denies having any other specific complaints on today's evaluation. On today's evaluation of 04/17/2024, patient is feeling well. No new complaints. No angina. No palpitations. Denies having any chest pain. Denies having any other new complaints. The patient will be taken off the IV Lasix and the patient will be switched to oral Lasix. Cardiac medications were all reviewed and the library services coordinator on the case. Looking for possible discharge today. Blood work was noted. Hemoglobin is 9.5 and a platelet count is at 318. BUN is 34 with a creatinine of 1 and sodium is at 135. No other significant events overnight. Objective - Vital Signs Vital signs: Vital Signs Temp 98.4 F 04/17/24 07:45 Pulse 82 04/17/24 09:21 Resp 17 04/17/24 07:45 BP 108/43 04/17/24 07:45 Pulse Ox 97 04/17/24 07:45 FiO2 Intake & Output 04/16/24 04/17/24 04/17/24 18:59 06:59 18:59 Weight 76 kg 73.7 kg Other: # Voids 1 - Exam General: Nontoxic, no distress and appears stated age. No significant respiratory distress, currently on room air oxygen Derm: Skin warm and dry, normal coloration for ethnicity. Head: Atraumatic, normocephalic and symmetric. Eyes: EOMs intact, no lid lag, and anicteric sclera Mouth: no lip lesions, mucus membranes moist Cardiovascular: regular rate and rhythm with normal S1S2, systolic murmur, positive posterior tibial pulses bilaterally Lungs: Diminished breath sounds, scattered rhonchi in the lung base bilaterally, scattered expiratory wheezes Abdominal: soft, nontender to palpation, no guarding, no appreciable organomegaly Ext: ROM intact. No gross muscle atrophy, no edema, no contractures Neuro: Speech clear, face symmetrical and CN II-XII grossly intact with no noted focal neuro deficits Psych: Alert and oriented to person, place, time, and situation. Appropriate and pleasant affect. - Labs CBC & Chem 7: 04/17/24 03:37 04/17/24 03:37 Labs: Abnormal Lab Results - Last 24 Hours (Table) 04/16/24 04/16/24 04/16/24 Range/Units 11:53 16:28 20:19 WBC (4.50-10.00) X 10*3/uL RBC (4.40-5.60) X 10*6/uL Hgb (13.0-17.0) g/dL Hct (39.6-50.0) % MCH (27.0-32.0) pg MCHC (32.0-37.0) g/dL RDW (11.5-14.5) % Immature Gran # (0.00-0.04) X 10*3/uL Neutrophils # (1.80-7.70) X 10*3/uL Lymphocytes # (0.90-5.00) X 10*3/uL Eosinophils # (0.04-0.35) X 10*3/uL Chloride (96-109) mmol/L Anion Gap (4.00-12.00) mmol/L BUN (9.0-27.0) mg/dL BUN/Creatinine Ratio (12.00-20.00) Ratio Glucose (70-110) mg/dL POC Glucose (mg/dL) 216 H 167 H 213 H (70-110) mg/dL 04/17/24 04/17/24 04/17/24 Range/Units 03:37 03:37 06:23 WBC 11.88 H (4.50-10.00) X 10*3/uL RBC 3.89 L (4.40-5.60) X 10*6/uL Hgb 9.5 L (13.0-17.0) g/dL Hct 31.8 L (39.6-50.0) % MCH 24.4 L (27.0-32.0) pg MCHC 29.9 L (32.0-37.0) g/dL RDW 20.1 H (11.5-14.5) % Immature Gran # 0.05 H (0.00-0.04) X 10*3/uL Neutrophils # 11.15 H (1.80-7.70) X 10*3/uL Lymphocytes # 0.36 L (0.90-5.00) X 10*3/uL Eosinophils # 0 L (0.04-0.35) X 10*3/uL Chloride 93 L (96-109) mmol/L Anion Gap 16.00 H (4.00-12.00) mmol/L BUN 34.7 H (9.0-27.0) mg/dL BUN/Creatinine Ratio 34.70 H (12.00-20.00) Ratio Glucose 162 H (70-110) mg/dL POC Glucose (mg/dL) 176 H (70-110) mg/dL Assessment and Plan Plan: acute hypoxic respiratory failure, improved and the patient is currently on room air oxygen Acute COPD exacerbation, maintained on a combination of bronchodilators and IV steroids Acute decompensated heart failure, improved and the patient is currently being diuresed with Lasix, much improved Shortness of breath secondary to above Coronary artery disease with previous stenting of the LAD and circumflex and the patient has chronic low occluded RCA and occlusion of the mid to distal LAD CHF with impaired LV function with an ejection fraction of 30 to 35% with previous history of cardiac thrombus History of smoking History of alcoholism History of major depression Paroxysmal atrial fibrillation current rhythm is sinus and the patient has been maintained on long-term anticoagulation with Eliquis Hypertension Hyperlipidemia Kyphoscoliosis of the chest Plan Clinically improved and oxygenation is improved and the patient is currently on room air oxygen Continue DuoNeb nebulized treatments [id number] Discontinued IV Solu-Medrol and put the patient on prednisone burst taper Oral Lasix Continue anticoagulation with Eliquis Cardiology follow-up in regards to the troponin leak, this is likely a type II myocardial ischemia. Aldactone was added. The patient was kept also on lisinopril and Farxiga regarding his cardiomyopathy. Home today
--- NOTE | 2024-04-18 13:55 | P.DS ---
Providers Date of admission: 04/15/24 00:18 Expected date of discharge: 04/17/24 Attending physician: Jazmin Condon Consults: 04/15/24 09:15 Consult Physician Routine Consulting Provider: Harjinder Giordano Consult Reason/Comments: chf, copd exac Do you want consulting provider notified?: Yes Consult Physician Routine Consulting Provider: Geoffrey Valdez Consult Reason/Comments: chf exac Do you want consulting provider notified?: Yes Primary care physician: Stated None Hospital Course: Final diagnosis Shortness of breath secondary to COPD as well as CHF exacerbation History of coronary artery disease with stenting Normocytic anemia, iron deficiency anemia Noncompliance with medications and follow-up Homelessness History of hyperlipidemia History of hypertension Previous myocardial infarction's History of EtOH use GI prophylaxis DVT prophylaxis Full code Discharge disposition Patient is being discharged in a stable condition with guarded prognosis to home. Patient will follow-[facility] with [facility] in the outpatient setting upon discharge. Patient is to continue with current medications and close outpatient follow-up with cardiology as scheduled. Total time taken is greater than 35 minutes. Hospital course This is a 58-year-old male who was recently admitted with increasing shortness of breath with acute COPD and CHF exacerbation. Patient being followed by cardiology and pulmonary with adjustments to medications made showing significant improvement and is currently on room air. Patient reports to feeling improved and would like to go home. Patient has been cleared by consultations with close outpatient follow-up with cardiology Dr. Gibson to discuss AICD placement. Please refer to other consultation notes for further HPI. Currently no reports of chest pain, shortness of breath, or palpitations. Patient is afebrile. No reports of nausea or vomiting and patient is tolerating diet. Patient will be going home today. Guarded prognosis given significant comorbidities and high risk for readmissions given noncompliance. Physical exam: Gen: This is a 58-year-old male who is awake, alert and oriented x 3, well- developed, elderly appearing HEENT: Head is atraumatic, normocephalic. Pupils equal, round. Sclerae is anicteric. NECK: Supple. No JVD. No lymphadenopathy. No thyromegaly. LUNGS: Diminished breath sounds bilaterally otherwise clear to auscultation. No wheezes or rhonchi. No intercostal retractions. HEART: Regular rate and rhythm. No murmur. ABDOMEN: Soft. Obese. Bowel sounds are present. No masses. No tenderness. EXTREMITIES: No pedal edema. No calf tenderness. NEUROLOGICAL: Patient is awake, alert and oriented x3. Cranial nerves 2 through 12 are grossly intact. Please refer to medication reconciliation sheet for a list of medications. The impression and plan of care has been dictated by Kiya Diego, Nurse Practitioner as directed. Dr. Kevin MD I have performed a history and examination and MDM of this patient, discussed the same with the dictator, and agree with the dictator's assessment and plan as written ,documented as a scribe. Based on total visit time, I have performed more than 50% of the visit. Patient Condition at Discharge: Stable Plan - Discharge Summary New Discharge Prescriptions: New Spironolactone [Aldactone] 12.5 mg PO DAILY 30 Days #30 tab Amiodarone [Cordarone] 100 mg PO DAILY 30 Days #30 tab Ipratropium-Albuterol Nebulize [Duoneb 0.5 mg-3 mg/3 ml Soln] 3 ml INHALATION RT-QID 30 Days #100 each Dapagliflozin Propanediol [Farxiga] 10 mg PO DAILY #30 tab Furosemide [Lasix] 40 mg PO BID@0900,1600 30 Days #60 tab Acetaminophen Tab [Tylenol] 650 mg PO Q4HR PRN tab PRN Reason: Mild Pain Or Fever > 100.5 Ipratropium-Albuterol Nebulize [Duoneb 0.5 mg-3 mg/3 ml Soln] 3 ml INHALATION RT-Q2H PRN each PRN Reason: Shortness Of Breath Or Wheezing Nicotine 14Mg/24Hr Patch [Habitrol] 1 patch TRANSDERM DAILY #30 patch lisinopriL [Zestril] 2.5 mg PO DAILY 30 Days #30 tab Continue Atorvastatin [Lipitor] 80 mg PO DIRECTED Omeprazole [PriLOSEC] 20 mg PO DIRECTED Nitroglycerin Sl Tabs [Nitrostat] 0.4 mg SUBLINGUAL Q5M PRN #20 tab PRN Reason: Chest Pain Metoprolol Succinate (ER) [Toprol XL] 25 mg PO DIRECTED DULoxetine HCL [Cymbalta] 60 mg PO DIRECTED Apixaban [Eliquis] 5 mg PO DIRECTED Aspirin 81 mg PO DIRECTED ARIPiprazole [Abilify] 10 mg PO DAILY 15 Days #15 tab metFORMIN HCL [Glucophage] 500 mg PO BID-W/MEALS 15 Days #30 tab Albuterol Inhaler [Ventolin Hfa Inhaler] 2 puff INHALATION RT-QID PRN each PRN Reason: Shortness Of Breath Or Wheezing Discontinued Amiodarone [Cordarone] 200 mg PO DIRECTED Discharge Medication List Atorvastatin [Lipitor] 80 mg PO DIRECTED 03/30/21 [History] Omeprazole [PriLOSEC] 20 mg PO DIRECTED 12/06/22 [History] DULoxetine HCL [Cymbalta] 60 mg PO DIRECTED 06/28/23 [History] Apixaban [Eliquis] 5 mg PO DIRECTED 10/04/23 [History] Aspirin 81 mg PO DIRECTED 01/31/24 [History] Nitroglycerin Sl Tabs [Nitrostat] 0.4 mg SUBLINGUAL Q5M PRN #20 tab 02/01/24 [Rx] Metoprolol Succinate (ER) [Toprol XL] 25 mg PO DIRECTED 02/25/24 [History] ARIPiprazole [Abilify] 10 mg PO DAILY 15 Days #15 tab 04/10/24 [Rx] Albuterol Inhaler [Ventolin Hfa Inhaler] 2 puff INHALATION RT-QID PRN each 04/10/24 [Rx] metFORMIN HCL [Glucophage] 500 mg PO BID-W/MEALS 15 Days #30 tab 04/10/24 [Rx] Acetaminophen Tab [Tylenol] 650 mg PO Q4HR PRN tab 04/17/24 [Rx] Amiodarone [Cordarone] 100 mg PO DAILY 30 Days #30 tab 04/17/24 [Rx] Dapagliflozin Propanediol [Farxiga] 10 mg PO DAILY #30 tab 04/17/24 [Rx] Furosemide [Lasix] 40 mg PO BID@0900,1600 30 Days #60 tab 04/17/24 [Rx] Ipratropium-Albuterol Nebulize [Duoneb 0.5 mg-3 mg/3 ml Soln] 3 ml INHALATION RT-Q2H PRN each 04/17/24 [Rx] Ipratropium-Albuterol Nebulize [Duoneb 0.5 mg-3 mg/3 ml Soln] 3 ml INHALATION RT-QID 30 Days #100 each 04/17/24 [Rx] Nicotine 14Mg/24Hr Patch [Habitrol] 1 patch TRANSDERM DAILY #30 patch 04/17/24 [ Rx] Spironolactone [Aldactone] 12.5 mg PO DAILY 30 Days #30 tab 04/17/24 [Rx] lisinopriL [Zestril] 2.5 mg PO DAILY 30 Days #30 tab 04/17/24 [Rx] Follow up Appointment(s)/Referral(s): [facility] [NON-STAFF] - As Needed Jaun Chaudhari MD [STAFF PHYSICIAN] - 04/24/24 4:00 pm Jovita Obregon MD [STAFF PHYSICIAN] - 04/30/24 10:30 am Patient Instructions/Handouts: COPD (Chronic Obstructive Pulmonary Disease) (DC) Activity/Diet/Wound Care/Special Instructions: Activity limited until follow-up Follow-up with primary care provider Follow-up with cardiology Dr. Gibson outpatient Follow-up with pulmonary outpatient Continue taking medications as prescribed Continue with fluid restrictions of 45 ounces throughout the whole day including water, tea, coffee, pop Discharge Disposition: HOME SELF-CARE
== END 2024-04-17 17:30 | disposition home or self-care (01) | DRG 280 ==
LOC: EC 22:18 → 3SCARD 04-15 00:18 → 4SSUR 04-15 00:25 → 1SOBS 04-15 10:17 → 4SSUR 04-15 10:26
PROVIDERS: ADMIT Hospitalist; ATTEND Hospitalist
DX: I11.0 Hypertensive heart disease with heart failure (principal); I50.33 Acute on chronic diastolic (congestive) heart failure; I21.A1 Myocardial infarction type 2; J96.01 Acute respiratory failure with hypoxia; J44.1 Chronic obstructive pulmonary disease with (acute) exacerbation; F10.231 Alcohol dependence with withdrawal delirium; K92.2 Gastrointestinal hemorrhage, unspecified; R17 Unspecified jaundice; F31.30 Bipolar disorder, current episode depressed, mild or moderate severity, unspecified; Z59.00 Homelessness unspecified; I25.10 Atherosclerotic heart disease of native coronary artery without angina pectoris; M41.9 Scoliosis, unspecified; E78.5 Hyperlipidemia, unspecified; I48.0 Paroxysmal atrial fibrillation; F43.10 Post-traumatic stress disorder, unspecified; F41.9 Anxiety disorder, unspecified; R63.0 Anorexia; Z87.442 Personal history of urinary calculi; D50.9 Iron deficiency anemia, unspecified; M54.2 Cervicalgia; R42 Dizziness and giddiness; I25.5 Ischemic cardiomyopathy; E83.42 Hypomagnesemia; K58.9 Irritable bowel syndrome, unspecified; L89.159 Pressure ulcer of sacral region, unspecified stage; Z79.01 Long term (current) use of anticoagulants; Z95.5 Presence of coronary angioplasty implant and graft; F17.210 Nicotine dependence, cigarettes, uncomplicated; I27.20 Pulmonary hypertension, unspecified; I25.2 Old myocardial infarction; Z79.84 Long term (current) use of oral hypoglycemic drugs; Z79.899 Other long term (current) drug therapy; Z82.49 Family history of ischemic heart disease and other diseases of the circulatory system; Z91.148 Patient's other noncompliance with medication regimen for other reason; Z98.84 Bariatric surgery status; Z88.5 Allergy status to narcotic agent; Z91.041 Radiographic dye allergy status
CPT/HCPCS: 36415; 71046; 80048; 80053; 80306; 81001; 83036; 83880; 84484; 85025; 85379; 85610; 85730; 87636; 93005; 94640; 96374; 96375; 96376; 99285

== ENCOUNTER 2024-06-12 23:53 | Observation (INO) | payer MEDICARE, OTHER ==
[2024-06-13] MEDS: SODIUM CHLORIDE 0.9% 1,000 ML IV STA ×2 (00:11→00:32)
[2024-06-13 00:32] LABS: ALT 12 U/L (4-49); AST 24 U/L (17-59); African American GFR (CKD) >90 (>60 ml/min/1.73 sqM); Albumin 4.6 g/dL (3.5-5.0); Alkaline Phosphatase 87 U/L (38-126); Anion Gap 14 mmol/L; Blood Urea Nitrogen 9 mg/dL (9-20); Calcium 9.4 mg/dL (8.4-10.2); Carbon Dioxide 17 mmol/L (22-30); Chloride 114 mmol/L (98-107); Glucose 96 mg/dL (74-99); Non-African American GFR(CKD) >90 (>60 ml/min/1.73 sqM); Potassium 4.1 mmol/L (3.5-5.1); Sodium 145 mmol/L (137-145); Total Bilirubin 0.4 mg/dL (0.2-1.3); Total Protein 7.7 g/dL (6.3-8.2)
[2024-06-13 00:38] LABS: INR 0.8 (<1.2); Partial Thromboplastin Time 22.6 sec (22.0-30.0); Prothrombin Time 9.5 sec (10.0-12.5)
--- NOTE | 2024-06-13 00:38 | XR ---
EXAMINATION TYPE: XR chest 1V portable DATE OF EXAM: 06/13/2024 COMPARISON: Chest x-ray April 14, 2024 HISTORY: Trauma TECHNIQUE: Single frontal view of the chest is obtained. FINDINGS: Elevated left hemidiaphragm is redemonstrated. Cardiomegaly is again seen. No new focal ai rspace opacity, pleural effusion, or pneumothorax seen bilaterally. Old fracture of the posterolatera l right seventh rib is redemonstrated. IMPRESSION: Cardiomegaly without acute pulmonary process. [facility], , 06/13/2024 12:36 AM
--- NOTE | 2024-06-13 00:39 | XR ---
EXAMINATION TYPE: XR pelvis AP view DATE OF EXAM: 06/13/2024 CLINICAL HISTORY: Trauma injury with pain TECHNIQUE: A single AP view of the pelvis is obtained. COMPARISON: CT abdomen and pelvis 2020 FINDINGS: There is no acute fracture/dislocation evident in the pelvis. The hip joints appear symme tric and unremarkable. Pubic symphysis is intact. Suboptimal visualization of the sacroiliac joints. The overlying soft tissue appears unremarkable. IMPRESSION: There is no acute displaced fracture in the pelvis. [facility], , 06/13/2024 12:37 AM
[2024-06-13 00:40] LABS: Anisocytosis Slight; Basophils # (A) 0.1 k/uL (0-0.2); Basophils % (A) 1 %; Eosinophils # (A) 0.2 k/uL (0-0.7); Eosinophils % (A) 3 %; HCT 37.1 % (39.0-53.0); Hypochromasia Marked; Lymphocytes # (A) 1.6 k/uL (1.0-4.8); Lymphocytes % (A) 30 %; MCH 24.8 pg (25.0-35.0); MCHC 29.5 g/dL (31.0-37.0); Mean Platelet Volume 6.4; Microcytosis Slight; Monocytes # (A) 0.2 k/uL (0-1.0); Monocytes % (A) 4 %; Neutrophils % (A) 57 %; Platelet Count 365 k/uL (150-450); RBC 4.42 m/uL (4.30-5.90); WBC 5.3 k/uL (3.8-10.6)
[2024-06-13] MEDS: fentaNYL (PF) 50 MCG/ML 2 ML AMP IVP STA (00:53)
[2024-06-13 00:58] LABS: Alcohol 308 mg/dL
--- NOTE | 2024-06-13 01:04 | CT ---
EXAMINATION TYPE: CT brain cspine wo con, CT facial bones wo con DATE OF EXAM: 06/13/2024 COMPARISON: Prior trauma CT March 01, 2024. Prior facial CT April 12, 2021 HISTORY: Trauma injury with pain Automated Exposure Control for Dose Reduction was Utilized. TECHNIQUE: CT scan of the head, facial bones, and cervical spine are performed without contrast. FINDINGS: There is no acute intracranial hemorrhage or midline shift identified. Mild ventricular a nd sulcal prominence is redemonstrated. Mild low attenuation in the periventricular white matter is a gain seen. The calvarium is intact. The mandible is intact. Temporomandibular joints are maintained bilaterally. Zygomatic arches are int act bilaterally. The nasal bones are intact. Orbital floors and edmonds are intact bilaterally. Globes are intact bilaterally. Intraconal fat is preserved. The pterygoid plates are intact. The paranasal s inuses show mild mucosal thickening in the central ethmoid sinuses otherwise are clear. Cervical spine is visualized in its entirety from C1 through upper thoracic levels and demonstrates s table and satisfactory alignment without evidence of acute fracture or dislocation. Prevertebral sof t tissue appears within normal limits. The C1-C2 articulation is within normal limits on the coronal images. Vertebral body disc space heights remain within normal limits. Spinal canal is grossly prese rved. Thyroid gland is unremarkable. Lung apices show no pneumothorax. IMPRESSION: 1. There is no acute fracture or dislocation evident in the cervical spine. 2. No acute intracranial hemorrhage or midline shift is seen. 3. No acute displaced facial bone fracture. [facility], , 06/13/2024 1:02 AM
[2024-06-13] MEDS ORDERED: NALOXONE 0.4 MG/ML 1 ML VIAL IV PRN (01:33)
[2024-06-13] MEDS ORDERED: ONDANSETRON 4 MG/2 ML VIAL IVP PRN (01:33)
[2024-06-13] MEDS ORDERED: LORazepam 2 MG/ML INJ IV PRN ×3 (01:35)
[2024-06-13] MEDS: MORPHINE SULFATE 4 MG/ML SYRINGE IVP STA (02:04)
--- NOTE | 2024-06-13 02:04 | ED ---
General Adult HPI - General Chief complaint: Fall Stated complaint: fall Time Seen by Provider: 06/12/24 23:58 Source: patient, RN notes reviewed, old records reviewed Mode of arrival: EMS Limitations: no limitations - History of Present Illness Initial comments: Is a 58-year-old male who presents emergency department after a fall. Has a history of alcohol abuse. Also history of COPD, hypertension, CAD. Patient is on blood thinners. Presents over concern for a fall. Patient states he stood up after drinking alcohol today and believes he fainted. Fell and struck his head on the ground. Currently is A and O x 4. Has no obvious injuries. Is complaining of a mild headache. Denies any back pain other than chronic back pain. Denies any neck pain. Has no other acute complaints at this time. States he is an every day drinker. Denies chest pain, shortness of breath, abdominal pain, nausea, vomiting. Presents for further evaluation as a code coag.Patient was found to have bedbugs and was taken to the [facility] room upon arrival. - Related Data Home Medications Medication Instructions Recorded Confirmed Atorvastatin [Lipitor] 80 mg PO DIRECTED 03/30/21 04/15/24 Omeprazole [PriLOSEC] 20 mg PO DIRECTED 12/06/22 04/15/24 DULoxetine HCL [Cymbalta] 60 mg PO DIRECTED 06/28/23 04/15/24 Apixaban [Eliquis] 5 mg PO DIRECTED 10/04/23 04/15/24 Aspirin 81 mg PO DIRECTED 01/31/24 04/15/24 Metoprolol Succinate (ER) [Toprol 25 mg PO DIRECTED 02/25/24 04/15/24 XL] Previous Rx's Medication Instructions Recorded Nitroglycerin Sl Tabs [Nitrostat] 0.4 mg SUBLINGUAL Q5M PRN #20 tab 02/01/24 ARIPiprazole [Abilify] 10 mg PO DAILY 15 Days #15 tab 04/10/24 Albuterol Inhaler [Ventolin Hfa 2 puff INHALATION RT-QID PRN each 04/10/24 Inhaler] metFORMIN HCL [Glucophage] 500 mg PO BID-W/MEALS 15 Days #30 04/10/24 tab Acetaminophen Tab [Tylenol] 650 mg PO Q4HR PRN tab 04/17/24 Amiodarone [Cordarone] 100 mg PO DAILY 30 Days #30 tab 04/17/24 Dapagliflozin Propanediol [Farxiga] 10 mg PO DAILY #30 tab 04/17/24 Furosemide [Lasix] 40 mg PO BID@0900,1600 30 Days #60 04/17/24 tab Ipratropium-Albuterol Nebulize 3 ml INHALATION RT-Q2H PRN each 04/17/24 [Duoneb 0.5 mg-3 mg/3 ml Soln] Ipratropium-Albuterol Nebulize 3 ml INHALATION RT-QID 30 Days 04/17/24 [Duoneb 0.5 mg-3 mg/3 ml Soln] #100 each Nicotine 14Mg/24Hr Patch [Habitrol] 1 patch TRANSDERM DAILY #30 patch 04/17/24 Spironolactone [Aldactone] 12.5 mg PO DAILY 30 Days #30 tab 04/17/24 lisinopriL [Zestril] 2.5 mg PO DAILY 30 Days #30 tab 04/17/24 Allergies Allergy/AdvReac Type Severity Reaction Status Date / Time Iodinated Contrast Media Allergy Itching-see Verified 06/12/24 23:58 comment fentanyl AdvReac Itching Verified 06/12/24 23:58 Review of Systems ROS Statement: Those systems with pertinent positive or pertinent negative responses have been documented in the HPI. Review of Systems: CONST: Denies fever EYES: Denies blurry vision ENT: Denies nasal congestion C/V: Denies Chest pain RESP: Denies shortness of breath GI: Denies abdominal pain : Denies dysuria SKIN: Denies rash. MSK: Denies joint pain. NEURO: Endorses mild headache ROS Other: All systems not noted in ROS Statement are negative. Past Medical History Past Medical History: COPD, GERD/Reflux, GI Bleed, Hypertension, Myocardial Infarction (RI), Pneumonia, Skin Disorder Additional Past Medical History / Comment(s): ETOH abuse with delirium tremors, lower GI bleed, IBS, chronic iron deficiency anemia, hypomagnesemia, hyperbilirubinemia, anorexia, vertigo, nephrolithiasis-passed stone on his own, chronic low back/cervical pain, DDD, kyphosis, scoliosis, coccyx pressure ulcer pt states is mostly healed. Dry and itchy skin back in high school. 2 heart attacks, one in December (2020) second in February (2020). Last Myocardial Infarction Date:: june 2023 History of Any Multi-Drug Resistant Organisms: None Reported Past Surgical History: Bariatric Surgery, Heart Catheterization With Stent, Hernia Repair, Orthopedic Surgery, Tonsillectomy Additional Past Surgical History / Comment(s): Right inner Forearm-metal plate, gastric bypass, incisional hernia surgery x2, EGDs, colonoscopies. 2 Stents placed in December 2020; bilateral knee surgeries Past Anesthesia/Blood Transfusion Reactions: No Reported Reaction Date of Last Stent Placement:: december 2020 Past Psychological History: Anxiety, Bipolar, Depression, PTSD Smoking Status: Current every day smoker Past Alcohol Use History: Abuse, Daily Past Drug Use History: None Reported - Past Family History Mother History Unknown: Yes Family Medical History: Hypertension Additional Family Medical History / Comment(s): Lupus. Mother is living. Father History Unknown: Yes Family Medical History: Liver Disease Additional Family Medical History / Comment(s): ETOH abuse. of cirrhosis complications. General Exam - General Exam Comments Initial Comments: General: Appears in no acute distress. HEAD: Normal with no signs of head trauma. Negative Crooks sign. Negative raccoon eyes. EYES: PERRLA, EOMI, conjunctiva normal, no discharge. Pupils are 2 mm and equal bilaterally. ENT: Hearing grossly intact, normal oropharynx. RESPIRATORY: Clear breath sounds bilaterally. No wheezes, rales, or rhonchi. C/V: Regular rate and rhythm. S1 and S2 auscultated, no edema, peripheral pulses 2+ and intact throughout ABD: Abd is soft, nontender, nondistended EXT: Normal range of motion, no obvious deformity. Pelvis is stable. No significant midline cervical, thoracic, lumbar spine tenderness to palpation. SKIN: No rashes or lesions observed on exposed skin. NEURO: Alert and oriented x 4. Cranial nerves II-XII intact. No focal sensory or strength deficits. GCS of 15. Limitations: no limitations Course Vital Signs 06/13/24 06/13/24 06/13/24 00:01 00:26 00:54 Temperature 98.1 F Pulse Rate 89 80 79 Respiratory 18 18 16 Rate Blood Pressure 89/64 96/67 106/73 O2 Sat by Pulse 98 100 100 Oximetry 06/13/24 06/13/24 01:30 02:02 Temperature Pulse Rate 87 90 Respiratory 16 18 Rate Blood Pressure 113/81 118/80 O2 Sat by Pulse 98 96 Oximetry Medical Decision Making - Medical Decision Making Was pt. sent in by a medical professional or institution (TRACEY Katz, CAPACITOR PACK PRESS OPERATOR, urgent care, hospital, or long term...) When possible be specific @ -No Did you speak to anyone other than the patient for history (EMS, parent, family, police, friend...)? What history was obtained from this source @ -No Did you review nursing and triage notes (agree or disagree)? Why? @ -I reviewed and agree with nursing and triage notes Were old charts reviewed (outside hosp., previous admission, EMS record, old EKG, old radiological studies, urgent care reports/EKG's, long term records)? Report findings @ -Reviewed confirming patient is on blood thinners Differential Diagnosis (chest pain, altered mental status, abdominal pain women, abdominal pain men, vaginal bleeding, weakness, fever, dyspnea, syncope, headache, dizziness, GI bleed, back pain, seizure, CVA, palpatations, mental health, musculoskeletal)? @ -Differential Musculoskeletal Muscular strain, contusion, ligament sprain, fracture, arthritis, septic arthritis, bursitis, cellulitis, muscle spasm, nerve compression, DVT, arterial occlusion, herpes zoster, electrolyte abnormality, tumor.... This is not meant to be in all inclusive list. Also includes intracranial trauma. EKG interpreted by me (3pts min.). @ -As above X-rays interpreted by me (1pt min.). @ -Chest x-ray, pelvis x-ray negative for any obvious acute traumatic injury. CT interpreted by me (1pt min.). @ -CT brain, C-spine, face negative for any obvious acute traumatic injury or acute intracranial process. U/S interpreted by me (1pt. min.). @ -None done What testing was considered but not performed or refused? (CT, X-rays, U/S, labs)? Why? @ -None What meds were considered but not given or refused? Why? @ -None Did you discuss the management of the patient with other professionals (professionals i.e. TRACEY Katz, CAPACITOR PACK PRESS OPERATOR, lab, RT, psych nurse, health and social care teacher, tuckpointer, teacher, senior administrative services officer, egg caser)? Give summary @ -Discussed the case with admitting provider, Dr. Martines who accepted the admission. Was smoking cessation discussed for >3mins.? @ -No Was critical care preformed (if so, how long)? @ -No Were there social determinants of health that impacted care today? How? (Homelessness, low income, unemployed, alcoholism, drug addiction, transport ation, low edu. Level, literacy, decrease access to med. care, residential, rehab)? @ -No Was there de-escalation of care discussed even if they declined (Discuss DNR or withdrawal of care, Hospice)? DNR status @ -No What co-morbidities impacted this encounter? (DM, HTN, Smoking, COPD, CAD, Cancer, CVA, ARF, Chemo, Hep., AIDS, mental health diagnosis, sleep apnea, morbid obesity)? @ -None Was patient admitted / discharged? Hospital course, mention meds given and route, prescriptions, significant lab abnormalities, going to OR and other pertinent info. @ -Patient presents intoxicated with alcohol following a fall. Had bedbugs on him and was decontaminated upon arrival. Does meet criteria for code coag. Does not meet criteria for trauma activation. Cervical collar is in place. We will obtain CT brain, facial bones, C-spine as well as chest and pelvis x-ray. No obvious injuries. Alert and oriented x 4. Patient was in agreement this plan. He will be administered IV analgesia medication as well as IV fluids as patient initially was hypotensive and I do have concern for dehydration for the patient. Likely experience orthostatic hypotension at home causing the syncopal episode. EKG shows no signs of acute ischemia. Laboratory studies are within acceptable limits except for the alcohol intoxication with a level of 308. Urine is still pending. Imaging is all negative. Cervical collar removed and C-spine cleared. Discussed results with the patient. He will be admitted to the hospital at this time due to alcohol intoxication. He was in agreement this plan. He was placed on CIWA protocol. I discussed the case with the admitting provider, Dr. Martines the admission. Undiagnosed new problem with uncertain prognosis? @ -No Drug Therapy requiring intensive monitoring for toxicity (Heparin, Nitro, Insulin, Cardizem)? @ -No Were any procedures done? @ -No Diagnosis/symptom? @ -Syncope, alcohol intoxication Acute, or Chronic, or Acute on Chronic? @ -Acute Uncomplicated (without systemic symptoms) or Complicated (systemic symptoms)? @ -Complicated Side effects of treatment? @ -No Exacerbation, Progression, or Severe Exacerbation? @ -No Poses a threat to life or bodily function? How? (Chest pain, [place], RI, pneumonia, PE, COPD, DKA, ARF, appy, cholecystitis, CVA, Diverticulitis, Homicidal, Suicidal, threat to staff... and all critical care pts) @ -Yes - Lab Data Result diagrams: 06/13/24 00:06 06/13/24 00:06 Lab Results 06/13/24 06/13/24 06/13/24 Range/Units 00:06 00:06 00:06 WBC 5.3 (3.8-10.6) k/uL RBC 4.42 (4.30-5.90) m/uL Hgb 11.0 L (13.0-17.5) gm/dL Hct 37.1 L (39.0-53.0) % MCV 84.0 (80.0-100.0) fL MCH 24.8 L (25.0-35.0) pg MCHC 29.5 L (31.0-37.0) g/dL RDW 19.0 H (11.5-15.5) % Plt Count 365 (150-450) k/uL MPV 6.4 Neutrophils % 57 % Lymphocytes % 30 % Monocytes % 4 % Eosinophils % 3 % Basophils % 1 % Neutrophils # 3.0 (1.3-7.7) k/uL Lymphocytes # 1.6 (1.0-4.8) k/uL Monocytes # 0.2 (0-1.0) k/uL Eosinophils # 0.2 (0-0.7) k/uL Basophils # 0.1 (0-0.2) k/uL Hypochromasia Marked Anisocytosis Slight Microcytosis Slight PT 9.5 L (10.0-12.5) sec INR 0.8 (<1.2) APTT 22.6 (22.0-30.0) sec Sodium 145 (137-145) mmol/L Potassium 4.1 (3.5-5.1) mmol/L Chloride 114 H (98-107) mmol/L Carbon Dioxide 17 L (22-30) mmol/L Anion Gap 14 mmol/L BUN 9 (9-20) mg/dL Creatinine 0.72 (0.66-1.25) mg/dL Est GFR (CKD-EPI)AfAm >90 (>60 ml/min/1.73 sqM) Est GFR (CKD-EPI)NonAf >90 (>60 ml/min/1.73 sqM) Glucose 96 (74-99) mg/dL Calcium 9.4 (8.4-10.2) mg/dL Total Bilirubin 0.4 (0.2-1.3) mg/dL AST 24 (17-59) U/L ALT 12 (4-49) U/L Alkaline Phosphatase 87 (38-126) U/L Total Protein 7.7 (6.3-8.2) g/dL Albumin 4.6 (3.5-5.0) g/dL Serum Alcohol 308 H* mg/dL Influenza Type A (PCR) (Not Detectd) Influenza Type B (PCR) (Not Detectd) RSV (PCR) (Not Detectd) SARS-CoV-2 (PCR) (Not Detectd) Blood Type Blood Type Recheck Bld Type Recheck Status Antibody Screen Spec Expiration Date 06/13/24 06/13/24 Range/Units 00:06 00:26 WBC (3.8-10.6) k/uL RBC (4.30-5.90) m/uL Hgb (13.0-17.5) gm/dL Hct (39.0-53.0) % MCV (80.0-100.0) fL MCH (25.0-35.0) pg MCHC (31.0-37.0) g/dL RDW (11.5-15.5) % Plt Count (150-450) k/uL MPV Neutrophils % % Lymphocytes % % Monocytes % % Eosinophils % % Basophils % % Neutrophils # (1.3-7.7) k/uL Lymphocytes # (1.0-4.8) k/uL Monocytes # (0-1.0) k/uL Eosinophils # (0-0.7) k/uL Basophils # (0-0.2) k/uL Hypochromasia Anisocytosis Microcytosis PT (10.0-12.5) sec INR (<1.2) APTT (22.0-30.0) sec Sodium (137-145) mmol/L Potassium (3.5-5.1) mmol/L Chloride (98-107) mmol/L Carbon Dioxide (22-30) mmol/L Anion Gap mmol/L BUN (9-20) mg/dL Creatinine (0.66-1.25) mg/dL Est GFR (CKD-EPI)AfAm (>60 ml/min/1.73 sqM) Est GFR (CKD-EPI)NonAf (>60 ml/min/1.73 sqM) Glucose (74-99) mg/dL Calcium (8.4-10.2) mg/dL Total Bilirubin (0.2-1.3) mg/dL AST (17-59) U/L ALT (4-49) U/L Alkaline Phosphatase (38-126) U/L Total Protein (6.3-8.2) g/dL Albumin (3.5-5.0) g/dL Serum Alcohol mg/dL Influenza Type A (PCR) Not Detected (Not Detectd) Influenza Type B (PCR) Not Detected (Not Detectd) RSV (PCR) Not Detected (Not Detectd) SARS-CoV-2 (PCR) Not Detected (Not Detectd) Blood Type A Negative Blood Type Recheck A Neg Bld Type Recheck Status No Antibody Screen NEGATIVE Spec Expiration Date 06/16/20242305 - EKG Data -: EKG Interpreted by Me EKG Comments: 12-lead Electrocardiogram Interpretation Note EKG was reviewed and interpreted by myself. 12-lead ECG performed at 0027 is interpreted by me as revealing normal sinus rhythm at a rate of 79 beats per minute. [place] is normal. MS interval is 165 ms, QRS durations 117 ms, QTc is 419 ms.. There were no ST or T wave abnormalities to suggest myocardial ischemia or injury. R wave progression across the precordium was satisfactory. By my interpretation this EKG is non-diagnostic for acute ischemia. Disposition Clinical Impression: Syncope, Alcohol intoxication Disposition: ADMITTED IP TO THIS HOSP Condition: Stable Referrals: [facility] [Primary Care Provider] - 1-2 days Time of Disposition: 01:45
[2024-06-13] MEDS: SODIUM CHLORIDE 0.9% 1,000 ML IV SCH (02:05)
[2024-06-13] MEDS ORDERED: DEXTROSE 50% SYRINGE 50 ML IVP PRN ×2 (04:44)
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
[2024-06-13] MEDS ORDERED: NICOTINE GUM (POLACRILEX) 2 MG GUM BUCCAL PRN (08:00)
[2024-06-13 08:24] LABS: Glucose,Whole Blood 89 mg/dL (70-110)
[2024-06-13] MEDS: INSULIN ASPART (NovoLOG) 100 UNIT/ML VIAL SQ SCH (08:42)
[2024-06-13] MEDS: ACETAMINOPHEN TAB 325 MG TAB PO PRN (09:14)
[2024-06-13] MEDS: THIAMINE 100 MG TAB PO SCH (09:15)
[2024-06-13] MEDS: AMIODARONE 100 MG TAB PO SCH (12:06)
[2024-06-13] MEDS: ARIPiprazole 10 MG TAB PO SCH (12:06)
[2024-06-13] MEDS: METOPROLOL SUCCINATE (ER) 25 MG TAB.ER.24H PO SCH (12:06)
[2024-06-13] MEDS: DULoxetine HCL 60 MG CAPSULE.DR PO SCH (12:06)
[2024-06-13] MEDS: NICOTINE 21MG/24HR PATCH TRANSDERM SCH (12:06)
[2024-06-13] MEDS: APIXABAN 5 MG TAB PO SCH (12:06)
[2024-06-13 12:42] LABS: Glucose,Whole Blood 102 mg/dL (70-110)
[2024-06-13 14:53] LABS: Appearance,Urine Clear (Clear); Bilirubin,Urine Negative (Negative); Blood,Urine Negative (Negative); Color,Urine Colorless; Glucose,Urine (UA) Negative (Negative); Ketones,Urine Negative (Negative); Leukocyte Esterase,Urine Negative (Negative); Nitrite,Urine Negative (Negative); Protein,Urine Negative (Negative); Specific Gravity,Urine 1.013 (1.001-1.035); Urobilinogen,Urine <2.0 mg/dL (<2.0)
[2024-06-13 15:04] LABS: Amphetamine Screen,Urine Not Detected (NotDetected); Barbiturate Screen,Urine Not Detected (NotDetected); Benzodiazepines Screen,Urine Not Detected (NotDetected); Cocaine Screen,Urine Not Detected (NotDetected); Methadone Screen, Urine Not Detected (NotDetected); Opiate Screen,Urine Detected (NotDetected); Oxycodone Screen, Urine Not Detected (NotDetected); Phencyclidine Screen,Urine Not Detected (NotDetected); Tricyclic Antidepressant,Urine Not Detected (NotDetected); Urn Cannabinoid Scrn Not Detected (NotDetected)
[2024-06-13 17:59] LABS: Glucose,Whole Blood 105 mg/dL (70-110)
[2024-06-13 20:48] LABS: Glucose,Whole Blood 284 mg/dL (70-110)
[2024-06-13] MEDS: ATORVASTATIN 80 MG TAB PO SCH (22:11)
[2024-06-14 05:41] LABS: Glucose,Whole Blood 102 mg/dL (70-110)
[2024-06-14 07:14] VITALS: BP 125/82; PULSE 77; RESP 16; TEMP 98.2
[2024-06-14] MEDS: SPIRONOLACTONE 25 MG TAB PO SCH (08:10)
[2024-06-14] MEDS: ASPIRIN 81 MG PO SCH (08:11)
[2024-06-14] MEDS: PANTOPRAZOLE 40 MG TABLET PO SCH (08:11)
[2024-06-14 10:38] LABS: ALT 17 U/L (10-49); AST 27 U/L (14-35); Albumin 3.7 g/dL (3.8-4.9); Albumin/Globulin Ratio 1.68 Ratio (1.60-3.17); Alkaline Phosphatase 106 U/L (41-126); BUN/Creat Ratio 21.83 Ratio (12.00-20.00); Blood Urea Nitrogen 13.1 mg/dL (9.0-27.0); Calcium 8.6 mg/dL (8.7-10.3); Chloride 104 mmol/L (96-109); Globulin 2.2 g/dL (1.6-3.3); Glucose 90 mg/dL (70-110); Potassium 3.8 mmol/L (3.5-5.5); Sodium 137 mmol/L (135-145); Total Bilirubin 0.7 mg/dL (0.3-1.2); Total Protein 5.9 g/dL (6.2-8.2)
[2024-06-14 10:45] LABS: Basophils # (A) 0.06 X 10*3/uL (0.00-0.10); Basophils % (A) 0.7 %; Eosinophils % (A) 2.4 %; HCT 30.7 % (39.6-50.0); HGB 8.8 g/dL (13.0-17.0); Lymphocytes # (A) 1.64 X 10*3/uL (0.90-5.00); Lymphocytes % (A) 19.3 %; MCH 23.9 pg (27.0-32.0); MCHC 28.7 g/dL (32.0-37.0); MCV 83.4 FL (80.0-97.0); Mean Platelet Volume 9.5 FL (9.5-12.2); Monocytes # (A) 0.84 X 10*3/uL (0.20-1.00); Monocytes % (A) 9.9 %; NRBC Per 100 WBC 0 X 10*3/uL (0.00-0.01); Neutrophils # (A) 5.72 X 10*3/uL (1.80-7.70); Neutrophils % (A) 67.3 %; Platelet Count 338 X 10*3/uL (140-440); RBC 3.68 X 10*6/uL (4.40-5.60); RDW 19.7 % (11.5-14.5); WBC 8.49 X 10*3/uL (4.50-10.00)
[2024-06-14 12:10] LABS: Glucose,Whole Blood 115 mg/dL (70-110)
--- NOTE | 2024-06-14 13:26 | P.DS ---
Providers Date of admission: 06/13/24 01:33 Expected date of discharge: 06/14/24 Attending physician: Bharathi Martines Primary care physician: [facility] Hospital Course: Discharge Diagnosis: #Alcohol intoxication #History of alcohol abuse #Anion gap metabolic acidosis #CAD with stent placement in the past #Ischemic cardiomyopathy #Mechanical fall #Paroxysmal atrial fibrillation #COPD without exacerbation #Depression #GERD #Nicotine dependence #Diabetes mellitus Hospital Course: 58-year-old with PMH COPD, hypertension, GERD, history of myocardial infarction (December and February of 2021), GI bleed, alcohol abuse with a history of DTs, CAD with stent placement and a history of Afib currently on eliquis. Presents to the emergency department after fall and alcohol intoxication. Labratory review: -WBCs 5.3, hemoglobin 11, hematocrit 37.1, platelet 365; sodium 145, potassium 4.1, BUN 9, creatinine 0.72, glucose 96, AST 24, ALT 12; serum alcohol level 308 -Respiratory viral panel all negative Imaging: -Chest x-ray done in the ER cardiomegaly without acute pulmonary process -Pelvic x-ray done in the ED showed no acute displaced fracture of the pelvis -Face CT done in the ED shows that there is no acute fracture or dislocation evident in the cervical spine; no acute intracranial hemorrhage or midline shift seen; no acute displaced facial bone fracture -EKG done in the ER showed sinus rhythm heart rate of 79, no ST segment elevation or depression seen, no T-wave inversions seen. Patient was monitored for alcohol withdrawal. Stable at the time of discharge. Outpatient follow-up with PCP. Patient seen and examined at bedside. Vital signs reviewed and stable. General: Nontoxic, no distress, appears at stated age Derm: Warm, dry Head: Atraumatic, normocephalic, symmetric Eyes: EOMI, no lid lag, anicteric sclera Mouth: No lip lesion, mucus membranes moist Cardiovascular: S1S2 reg, no murmur Lungs: CTA bilateral, no rhonchi, no rales, no accessory muscle use Abdominal: Soft, nontender to palpation, no guarding, no appreciable organomegaly Ext: No gross muscle atrophy, no edema, no contractures Neuro: CN II-XI grossly intact, no focal neuro deficits Psych: Alert, oriented, appropriate affect A total of 36 minutes of time were spent preparing this complex discharge summary. Patient was discharged on 06/14/2024 at 1151. Patient Condition at Discharge: Stable Plan - Discharge Summary New Discharge Prescriptions: New Thiamine [Vitamin B-1] 100 mg PO DAILY #120 tab Continue Atorvastatin [Lipitor] 80 mg PO DIRECTED Omeprazole [PriLOSEC] 20 mg PO DAILY Nitroglycerin Sl Tabs [Nitrostat] 0.4 mg SUBLINGUAL Q5M PRN #20 tab PRN Reason: Chest Pain Metoprolol Succinate (ER) [Toprol XL] 25 mg PO DIRECTED Spironolactone [Aldactone] 12.5 mg PO DAILY 30 Days #30 tab Ipratropium-Albuterol Nebulize [Duoneb 0.5 mg-3 mg/3 ml Soln] 3 ml INHALATION RT-QID 30 Days #100 each Furosemide [Lasix] 40 mg PO BID@0900,1600 30 Days #60 tab Acetaminophen Tab [Tylenol] 650 mg PO Q4HR PRN tab PRN Reason: Mild Pain Or Fever > 100.5 Amiodarone [Cordarone] 100 mg PO DIRECTED ARIPiprazole [Abilify] 10 mg PO DIRECTED Dapagliflozin Propanediol [Farxiga] 10 mg PO DIRECTED metFORMIN HCL [Glucophage] 500 mg PO DIRECTED DULoxetine HCL [Cymbalta] 60 mg PO DIRECTED Apixaban [Eliquis] 5 mg PO DIRECTED Aspirin 81 mg PO DAILY Albuterol Inhaler [Ventolin Hfa Inhaler] 2 puff INHALATION RT-QID PRN each PRN Reason: Shortness Of Breath Or Wheezing Ipratropium-Albuterol Nebulize [Duoneb 0.5 mg-3 mg/3 ml Soln] 3 ml INHALATION RT-Q2H PRN each PRN Reason: Shortness Of Breath Or Wheezing Nicotine 14Mg/24Hr Patch [Habitrol] 1 patch TRANSDERM DAILY #30 patch lisinopriL [Zestril] 2.5 mg PO DAILY 30 Days #30 tab Discharge Medication List Atorvastatin [Lipitor] 80 mg PO DIRECTED 03/30/21 [History] Omeprazole [PriLOSEC] 20 mg PO DAILY 12/06/22 [History] DULoxetine HCL [Cymbalta] 60 mg PO DIRECTED 06/28/23 [History] Apixaban [Eliquis] 5 mg PO DIRECTED 10/04/23 [History] Aspirin 81 mg PO DAILY 01/31/24 [History] Nitroglycerin Sl Tabs [Nitrostat] 0.4 mg SUBLINGUAL Q5M PRN #20 tab 02/01/24 [Rx] Metoprolol Succinate (ER) [Toprol XL] 25 mg PO DIRECTED 02/25/24 [History] Albuterol Inhaler [Ventolin Hfa Inhaler] 2 puff INHALATION RT-QID PRN each 04/10/24 [Rx] Acetaminophen Tab [Tylenol] 650 mg PO Q4HR PRN tab 04/17/24 [Rx] Furosemide [Lasix] 40 mg PO BID@0900,1600 30 Days #60 tab 04/17/24 [Rx] Ipratropium-Albuterol Nebulize [Duoneb 0.5 mg-3 mg/3 ml Soln] 3 ml INHALATION RT-Q2H PRN each 04/17/24 [Rx] Ipratropium-Albuterol Nebulize [Duoneb 0.5 mg-3 mg/3 ml Soln] 3 ml INHALATION RT-QID 30 Days #100 each 04/17/24 [Rx] Nicotine 14Mg/24Hr Patch [Habitrol] 1 patch TRANSDERM DAILY #30 patch 04/17/24 [Rx] Spironolactone [Aldactone] 12.5 mg PO DAILY 30 Days #30 tab 04/17/24 [Rx] lisinopriL [Zestril] 2.5 mg PO DAILY 30 Days #30 tab 04/17/24 [Rx] ARIPiprazole [Abilify] 10 mg PO DIRECTED 06/13/24 [History] Amiodarone [Cordarone] 100 mg PO DIRECTED 06/13/24 [History] Dapagliflozin Propanediol [Farxiga] 10 mg PO DIRECTED 06/13/24 [History] metFORMIN HCL [Glucophage] 500 mg PO DIRECTED 06/13/24 [History] Thiamine [Vitamin B-1] 100 mg PO DAILY #120 tab 06/14/24 [Rx] Follow up Appointment(s)/Referral(s): [facility] [Primary Care Provider] - 1-2 days Patient Instructions/Handouts: Alcohol Intoxication (DC) Activity/Diet/Wound Care/Special Instructions: Please see your PCP. Discharge Disposition: HOME SELF-CARE
== END 2024-06-14 14:57 | disposition home or self-care (01) ==
LOC: EC 23:53 → 6NMEDSUR 06-13 01:33
PROVIDERS: ADMIT Student in an Organized Health Care Education/Training Program; ATTEND Student in an Organized Health Care Education/Training Program
DX: F10.129 Alcohol abuse with intoxication, unspecified (principal); E87.20 Acidosis, unspecified; I11.9 Hypertensive heart disease without heart failure; I25.10 Atherosclerotic heart disease of native coronary artery without angina pectoris; J44.9 Chronic obstructive pulmonary disease, unspecified; I48.0 Paroxysmal atrial fibrillation; I25.5 Ischemic cardiomyopathy; E11.9 Type 2 diabetes mellitus without complications; B88.0 Other acariasis; I95.9 Hypotension, unspecified; R55 Syncope and collapse; K21.9 Gastro-esophageal reflux disease without esophagitis; F17.210 Nicotine dependence, cigarettes, uncomplicated; I25.2 Old myocardial infarction; Y90.8 Blood alcohol level of 240 mg/100 ml or more; F32.A Depression, unspecified; G89.29 Other chronic pain; M54.9 Dorsalgia, unspecified; W01.0XXA Fall on same level from slipping, tripping and stumbling without subsequent striking against object, initial encounter; Z79.01 Long term (current) use of anticoagulants; Z79.82 Long term (current) use of aspirin; Z79.84 Long term (current) use of oral hypoglycemic drugs; Z79.899 Other long term (current) drug therapy; Z91.041 Radiographic dye allergy status; Z88.5 Allergy status to narcotic agent; Z95.5 Presence of coronary angioplasty implant and graft; Z87.19 Personal history of other diseases of the digestive system; Z11.52 Encounter for screening for COVID-19; Z11.59 Encounter for screening for other viral diseases
CPT/HCPCS: 96361 ×3; 96374; 96375; 99285; 36415; 94760; 93005; 86900; 86901; 80053 ×2; 85025 ×2; 85610; 85730; 86850; 81003; 80306; 83036; 87636; 72170; 71045; 72125; 70486; 70450; G0378 ×2; G0480; J2270; J3010; 80320

== ENCOUNTER 2024-09-23 04:29 | Emergency (ER) | payer MEDICAID, MEDICARE ==
--- NOTE | 2024-09-23 04:35 | ED ---
Chest Pain HPI - General Stated Complaint: Chest Pain Time Seen by Provider: 09/23/24 04:33 Source: RN notes reviewed, old records reviewed Mode of arrival: EMS Limitations: no limitations - History of Present Illness Initial Comments: This is a 58-year-old male to the ER. He presents today for evaluation of flulike symptoms for 3 days. Patient has a history of COPD and CHF. Multiple ER visits including recent inpatient hospitalization for mental health. Patient states when he was on the mental health unit multiple at the fluid he thinks he did c get exposed to the flu and likely picked up the flu. Patient has had increased cough and congestion for the last 3 days and shortness of breath at home despite using inhaler MD Complaint: chest pain, other (Shortness of breath) -: days(s) (3) Pain Location: substernal Pain Radiation: none Consistency: intermittent Improves With: nothing Worsens With: exertion Other Symptoms: palpitations Treatments Prior to Arrival: none - Related Data Home Medications Medication Instructions Recorded Confirmed ARIPiprazole IM [Abilify Maintena] 400 mg IM Q30D 09/26/24 09/26/24 Albuterol Inhaler [Ventolin Hfa 2 puff INHALATION RT-QID PRN 09/26/24 09/26/24 Inhaler] Amiodarone [Cordarone] 200 mg PO DAILY 09/26/24 09/26/24 Azithromycin [Zithromax] See Taper PO DIRECTED 09/26/24 09/26/24 DULoxetine HCL [Cymbalta] 60 mg PO DAILY 09/26/24 09/26/24 Omeprazole 20 mg PO DAILY 09/26/24 09/26/24 lisinopriL [Zestril] 2.5 mg PO DAILY 09/26/24 09/26/24 predniSONE [Deltasone] 40 mg PO DIRECTED 09/26/24 09/26/24 Previous Rx's Medication Instructions Recorded Ibuprofen [Motrin] 600 mg PO Q6HR PRN tab 09/11/24 Albuterol Inhaler [Ventolin Hfa 2 puff INHALATION Q4HR PRN #8 gm 09/26/24 Inhaler] predniSONE 60 mg PO DAILY #30 tab 09/26/24 Allergies Allergy/AdvReac Type Severity Reaction Status Date / Time Iodinated Contrast Media Allergy Itching-see Verified 09/26/24 14:43 comment fentanyl AdvReac Itching Verified 09/26/24 14:43 Review of Systems ROS Statement: Those systems with pertinent positive or pertinent negative responses have been documented in the HPI. ROS Other: All systems not noted in ROS Statement are negative. EKG Findings - EKG Comments: EKG Findings:: EKG is sinus tachycardia 107 NJ 136 QRS 77 QTc 398 - EKG Results: EKG: interpreted by TIM Past Medical History Past Medical History: COPD, GERD/Reflux, GI Bleed, Hypertension, Myocardial Infarction (PA), Pneumonia, Skin Disorder Additional Past Medical History / Comment(s): ETOH abuse with delirium tremors, lower GI bleed, IBS, chronic iron deficiency anemia, hypomagnesemia, hyperbilirubinemia, anorexia, vertigo, nephrolithiasis-passed stone on his own, chronic low back/cervical pain, DDD, kyphosis, scoliosis, coccyx pressure ulcer pt states is mostly healed. Dry and itchy skin back in high school. 2 heart attacks, one in December (2020) second in February (2020). Last Myocardial Infarction Date:: june 2023 History of Any Multi-Drug Resistant Organisms: None Reported Past Surgical History: Bariatric Surgery, Heart Catheterization With Stent, Hernia Repair, Orthopedic Surgery, Tonsillectomy Additional Past Surgical History / Comment(s): Right inner Forearm-metal plate, gastric bypass, incisional hernia surgery x2, EGDs, colonoscopies. 2 Stents placed in December 2020; bilateral knee surgeries Past Anesthesia/Blood Transfusion Reactions: No Reported Reaction Date of Last Stent Placement:: december 2020 Past Psychological History: Anxiety, Bipolar, Depression, PTSD Additional Psychological History / Comment(s): Pt resides in a hotel room. Pt states his depression is stable at this time, no thoughts or plans of suicide. He has had multiple mental health unit admissions. He has ETOH abuse. He goes to [facility]. Smoking Status: Current every day smoker Past Alcohol Use History: Abuse, Daily Additional Past Alcohol Use History / Comment(s): Pt started smokingin 1979 and is a 1.5 -2ppd smoker. Past Drug Use History: None Reported Additional Drug Use History / Comment(s): Pt still uses marijuana on occasion, but quit all other drugs 4-5 years ago. - Past Family History Mother History Unknown: Yes Family Medical History: Hypertension Additional Family Medical History / Comment(s): Lupus. Mother is living. Father History Unknown: Yes Family Medical History: Liver Disease Additional Family Medical History / Comment(s): ETOH abuse. of cirrhosis complications. General Exam General appearance: alert, in no apparent distress Head exam: Present: atraumatic, normocephalic, normal inspection Eye exam: Present: normal appearance, PERRL, EOMI. Absent: scleral icterus, conjunctival injection, periorbital swelling ENT exam: Present: normal exam, mucous membranes moist Neck exam: Present: normal inspection. Absent: tenderness, meningismus, lymphadenopathy Respiratory exam: Present: normal lung sounds bilaterally. Absent: respiratory distress, wheezes, rales, rhonchi, stridor Cardiovascular Exam: Present: regular rate, normal rhythm, normal heart sounds. Absent: systolic murmur, diastolic murmur, rubs, gallop, clicks GI/Abdominal exam: Present: soft, normal bowel sounds. Absent: distended, tenderness, guarding, rebound, rigid Extremities exam: Present: normal inspection, full ROM, normal capillary refill. Absent: tenderness, pedal edema, joint swelling, calf tenderness Back exam: Present: normal inspection Neurological exam: Present: alert, oriented X3, CN II-XII intact Psychiatric exam: Present: normal affect, normal mood Skin exam: Present: warm, dry, intact, normal color. Absent: rash Course Vital Signs 09/23/24 09/23/24 09/23/24 04:32 06:10 06:20 Temperature 99.4 F Pulse Rate 107 H 104 H 105 H Respiratory 18 Rate Blood Pressure 108/73 O2 Sat by Pulse 94 L Oximetry 09/23/24 06:38 Temperature 98.8 F Pulse Rate 101 H Respiratory 18 Rate Blood Pressure 113/78 O2 Sat by Pulse 95 Oximetry - Reevaluation(s) Reevaluation #1: 09/23/24 05:55 Medical records reviewed Reevaluation #2: 09/23/24 05:55 Is improved and continue to improve Reevaluation #3: 09/23/24 05:55 Questions answered Reevaluation #4: Was pt. sent in by a medical professional or institution (, PA, GOLF BALL INSPECTOR, urgent care, hospital, or fpc...) When possible be specific @ -no Did you speak to anyone other than the patient for history (EMS, parent, family, police, friend...)? What history was obtained from this source @ -no Did you review nursing and triage notes (agree or disagree)? Why? @ -agree Are old charts reviewed (outside hosp., previous admission, EMS record, old EKG, old radiological studies, urgent care reports/EKG's, fpc records)? Report findings @ -yes Differential Diagnosis (chest pain, altered mental status, abdominal pain women, abdominal pain men, vaginal bleeding, weakness, fever, dyspnea, syncope, headache, dizziness, GI bleed, back pain, seizure, CVA, palpatations, mental health, musculoskeletal)? @ -prior EKG interpreted by me (3pts min.). @ -yes X-rays interpreted by me (1pt min.). @ -yes negative for acute disease CT interpreted by me (1pt min.). @ -no U/S interpreted by me (1pt. min.). @ -no What testing was considered but not performed or refused? (CT, X-rays, U/S, labs)? Why? @ -none What meds were considered but not given or refused? Why? @ -none Did you discuss the management of the patient with other professionals (professionals i.e. , PA, GOLF BALL INSPECTOR, lab, RT, psych nurse, psychiatric social worker supervisor, emt, teacher, special forces officer, pillowcase cleaner)? Give summary @ -no Was smoking cessation discussed for >3mins.? @ -no Was critical care preformed (if so, how long)? @ -no Were there social determinants of health that impacted care today? How? (Homelessness, low income, unemployed, alcoholism, drug addiction, transportation, low edu. Level, literacy, decrease access to med. care, usp, rehab)? @ -none Was there de-escalation of care discussed even if they declined (Discuss DNR or withdrawal of care, Hospice)? DNR status @ -no What co-morbidities impacted this encounter? (DM, HTN, Smoking, COPD, CAD, Cancer, CVA, ARF, Chemo, Hep., AIDS, mental health diagnosis, sleep apnea, morbid obesity)? @ -none Was patient admitted / discharged? Hospital course, mention meds given and route, prescriptions, significant lab abnormalities, going to OR and other pertinent info. @ - 58 male history of breath increasing COPD and CHF patient likely has underlying influenza can be discharged home Discharge Undiagnosed new problem with uncertain prognosis? @ -no Drug Therapy requiring intensive monitoring for toxicity (Heparin, Nitro, Insulin, Cardizem)? @ -no Were any procedures done? @ -no Diagnosis/symptom? @ -COPD, CHF influenza Acute, or Chronic, or Acute on Chronic? @ -Acute Uncomplicated (without systemic symptoms) or Complicated (systemic symptoms)? @ -Complicated Side effects of treatment? @ -no Exacerbation, Progression, or Severe Exacerbation? @ -exacerbation Poses a threat to life or bodily function? How? (Chest pain, USA, PA, pneumonia, PE, COPD, DKA, ARF, appy, cholecystitis, CVA, Diverticulitis, Homicidal, Suicidal, threat to staff... and all critical care pts) @ -no Reevaluation #5: Differential Dyspnea: Coronary syndrome, arrhythmia, tamponade, asthma, COPD, pulmonary embolism, pneumonia, pneumothorax, pulmonary effusion, anaphylaxis, diabetic ketoacidosis, flailed chest, pulmonary contusion, diaphragmatic rupture, anemia, neuromuscular, this is not meant to be an all-inclusive list. Chest Pain MDM - MDM 58 male history of breath increasing COPD and CHF patient likely has underlying influenza can be discharged home Disposition Clinical Impression: CHF (congestive heart failure), Acute exacerbation of chronic obstructive pulmonary disease, RSV (acute bronchiolitis due to respiratory syncytial virus) Disposition: HOME SELF-CARE Condition: Good Instructions (If sedation given, give patient instructions): Respiratory Syncytial Virus (ED) Is patient prescribed a controlled substance at d/c from ED?: No Referrals: Jeovany Parikh MD [Primary Care Provider] - 1-2 days Time of Disposition: 06:00
[2024-09-23 04:37] VITALS: RESP 18
[2024-09-23 05:05] LABS: Anisocytosis Slight; Basophils % (A) 0 %; Eosinophils # (A) 0.2 k/uL (0-0.7); Eosinophils % (A) 2 %; HCT 31.9 % (39.0-53.0); Hypochromasia Marked; Lymphocytes # (A) 1.7 k/uL (1.0-4.8); Lymphocytes % (A) 18 %; MCH 21.7 pg (25.0-35.0); MCHC 28.3 g/dL (31.0-37.0); MCV 76.6 fL (80.0-100.0); Mean Platelet Volume 6.8; Microcytosis Moderate; Monocytes # (A) 0.5 k/uL (0-1.0); Monocytes % (A) 5 %; Neutrophils # (A) 6.9 k/uL (1.3-7.7); Neutrophils % (A) 71 %; Platelet Count 420 k/uL (150-450); Poikilocytosis Slight; RBC 4.17 m/uL (4.30-5.90); RDW 19.6 % (11.5-15.5); WBC 9.7 k/uL (3.8-10.6)
[2024-09-23] MEDS: MORPHINE SULFATE 4 MG/ML SYRINGE IV STA (05:05)
[2024-09-23] MEDS: ONDANSETRON 4 MG/2 ML VIAL IVP STA (05:05)
[2024-09-23] MEDS: SODIUM CHLORIDE 0.9% 1,000 ML IV STA (05:06)
[2024-09-23 05:20] LABS: ALT 20 U/L (4-49); AST 39 U/L (17-59); African American GFR (CKD) >90 (>60 ml/min/1.73 sqM); Albumin 3.4 g/dL (3.5-5.0); Alcohol <10 mg/dL; Alkaline Phosphatase 82 U/L (38-126); Anion Gap 7 mmol/L; Blood Urea Nitrogen 14 mg/dL (9-20); Calcium 8.7 mg/dL (8.4-10.2); Carbon Dioxide 29 mmol/L (22-30); Chloride 99 mmol/L (98-107); Glucose 125 mg/dL (74-99); Lipase 48 U/L (23-300); Magnesium 1.8 mg/dL (1.6-2.3); Non-African American GFR(CKD) >90 (>60 ml/min/1.73 sqM); Sodium 135 mmol/L (137-145); Total Bilirubin 0.5 mg/dL (0.2-1.3); Total Protein 6.2 g/dL (6.3-8.2)
[2024-09-23 05:23] LABS: INR 0.9 (<1.2); Partial Thromboplastin Time 23.7 sec (22.0-30.0); Prothrombin Time 10.2 sec (10.0-12.5)
[2024-09-23 05:28] LABS: NT-Pro-B-Type Natriuretic Pept 7510 pg/mL
[2024-09-23 05:30] LABS: Potassium 4.6 mmol/L (3.5-5.1)
[2024-09-23 05:49] LABS: Influenza A Not Detected (Not Detectd); Influenza B Not Detected (Not Detectd); RSV Detected (Not Detectd)
[2024-09-23] MEDS: IPRATROPIUM-ALBUTEROL 3 ML NEB INHALATION STA (06:10)
[2024-09-23] MEDS: DEXAMETHASONE SOD PHOSPHATE 10 MG/ML 1 ML VIAL IVP STA (06:35)
[2024-09-23 06:39] VITALS: BP 113/78; PULSE 101; TEMP 98.8
--- NOTE | 2024-09-23 06:43 | XR ---
EXAMINATION TYPE: XR chest 1V portable DATE OF EXAM: 09/23/2024 4:52 AM COMPARISON: Chest radiographs from 06/13/2024 CLINICAL INDICATION: Male, 58 years old with history of chest pain; [facility] TECHNIQUE: XR chest 1V portable Frontal view of the chest. FINDINGS: Lungs/Pleura: There is no evidence of pleural effusion, focal consolidation, or pneumothorax. Pulmonary vascularity: Unremarkable. Heart/mediastinum: Cardiomediastinal silhouette is unremarkable. Musculoskeletal: No acute osseous pathology. Multiple right-sided rib fractures. IMPRESSION: 1. Chronic changes without acute pulmonary process. No significant change from prior. 2. Remote right-sided rib deformities compatible with fractures. [facility], , 09/23/2024 6:40 AM [facility], , 09/23/2024 6:40 AM
== END 2024-09-23 06:46 | disposition home or self-care (01) ==
LOC: EC 04:29
DX: I11.0 Hypertensive heart disease with heart failure (principal); I50.9 Heart failure, unspecified; J21.0 Acute bronchiolitis due to respiratory syncytial virus; J44.1 Chronic obstructive pulmonary disease with (acute) exacerbation; F17.210 Nicotine dependence, cigarettes, uncomplicated; Z79.899 Other long term (current) drug therapy
CPT/HCPCS: 36415; 94640; 93005; 83880; 80053; 83690; 83735; 84484; 85025; 85610; 85730; 87636; 71045; 99285; 96374; 96375 ×2; 96361; G0480; J2270; J1100; J2405; 80320

== ENCOUNTER 2024-09-24 17:21 | Emergency (ER) | payer MEDICARE ==
[2024-09-24] MEDS: methylPREDNISolone SOD SUCCI 125 MG/2 ML VIAL IV STA (18:16)
[2024-09-24] MEDS: IPRATROPIUM-ALBUTEROL 3 ML NEB INHALATION STA (18:19)
[2024-09-24 18:27] LABS: Appearance,Urine Clear (Clear); Bilirubin,Urine Negative (Negative); Blood,Urine Negative (Negative); Color,Urine Light Yellow; Glucose,Urine (UA) Negative (Negative); Ketones,Urine Negative (Negative); Leukocyte Esterase,Urine Negative (Negative); Nitrite,Urine Negative (Negative); PH, Urine 5.5 (5.0-8.0); Protein,Urine Negative (Negative); Specific Gravity,Urine 1.016 (1.001-1.035); Urobilinogen,Urine <2.0 mg/dL (<2.0)
[2024-09-24 18:28] LABS: Anisocytosis Slight; Basophils % (A) 0 %; Eosinophils % (A) 0 %; HCT 32.5 % (39.0-53.0); Hypochromasia Marked; Lymphocytes # (A) 1.5 k/uL (1.0-4.8); Lymphocytes % (A) 11 %; MCH 21.5 pg (25.0-35.0); MCHC 27.8 g/dL (31.0-37.0); MCV 77.2 fL (80.0-100.0); Mean Platelet Volume 6.6; Microcytosis Moderate; Monocytes # (A) 0.6 k/uL (0-1.0); Monocytes % (A) 4 %; Neutrophils # (A) 10.6 k/uL (1.3-7.7); Neutrophils % (A) 82 %; Platelet Count 562 k/uL (150-450); Poikilocytosis Slight; RBC 4.21 m/uL (4.30-5.90); RDW 19.4 % (11.5-15.5); WBC 12.9 k/uL (3.8-10.6)
[2024-09-24] MEDS: ACETAMINOPHEN TAB 500 MG TAB PO STA (18:31)
[2024-09-24] MEDS: KETOROLAC 15 MG/ML 1 ML VIAL IVP STA (18:31)
[2024-09-24 18:33] LABS: INR 0.9 (<1.2); Partial Thromboplastin Time 22.6 sec (22.0-30.0); Prothrombin Time 10.1 sec (10.0-12.5)
[2024-09-24 18:35] LABS: ALT 21 U/L (4-49); AST 29 U/L (17-59); African American GFR (CKD) >90 (>60 ml/min/1.73 sqM); Albumin 3.6 g/dL (3.5-5.0); Alkaline Phosphatase 78 U/L (38-126); Anion Gap 7 mmol/L; Blood Urea Nitrogen 27 mg/dL (9-20); Calcium 8.9 mg/dL (8.4-10.2); Carbon Dioxide 30 mmol/L (22-30); Chloride 104 mmol/L (98-107); Glucose 132 mg/dL (74-99); Non-African American GFR(CKD) >90 (>60 ml/min/1.73 sqM); Potassium 4.6 mmol/L (3.5-5.1); Sodium 141 mmol/L (137-145); Total Bilirubin 0.4 mg/dL (0.2-1.3); Total Protein 6.6 g/dL (6.3-8.2)
[2024-09-24 18:44] LABS: NT-Pro-B-Type Natriuretic Pept 8620 pg/mL
--- NOTE | 2024-09-24 18:52 | XR ---
EXAMINATION TYPE: XR chest 2V DATE OF EXAM: 09/24/2024 6:43 PM COMPARISON: Chest radiographs from 09/23/2024 CLINICAL INDICATION: Male, 58 years old with history of difficulty breathing; [facility] TECHNIQUE: XR chest 2V Frontal and lateral views of the chest. FINDINGS: Lungs/Pleura: Left diaphragm similar prior. Scattered reticular and airspace opacities of the lungs as significantl y changed. There is no evidence of pleural effusion, focal consolidation, or pneumothorax. Pulmonary vascularity: Unremarkable. Heart/mediastinum: Cardiomediastinal silhouette is unremarkable. Musculoskeletal: No acute osseous pathology. Right posterior rib injuries. IMPRESSION: 1. Similar multifocal airspace and reticular opacities. Correlate for pulmonary edema versus atypica l pneumonia. 2. Similar Elevated left diaphragm. [facility], , 09/24/2024 6:50 PM
--- NOTE | 2024-09-24 19:15 | ED ---
General Adult HPI - General Chief complaint: Shortness of Breath Stated complaint: ITALO Time Seen by Provider: 09/24/24 17:40 Source: patient, EMS Mode of arrival: EMS Limitations: language barrier - History of Present Illness Initial comments: Patient is a 58-year-old male who presents emergency department for cough, congestion. Patient was seen last night for similar complaints and discharged home. Returns as he went home, did not fill any of his prescriptions, smoked 10 additional cigarettes, and came back in with increased work of breathing and wheezing. Patient received multiple breathing treatments from EMS which did improve his symptoms. Currently not requiring oxygen. He states he has been having some chest tightness from all the coughing has been having lately. Was diagnosed with RSV earlier today as well. He has no other acute complaints at this time. Chronically smokes tobacco. Presents for further evaluation at this time. - Related Data Previous Rx's Medication Instructions Recorded ARIPiprazole IM [Abilify Maintena] 400 mg IM QMONTHLY #1 each 09/11/24 ARIPiprazole [Abilify] 10 mg PO HS 14 Days #14 tab 09/11/24 DULoxetine HCL [Cymbalta] 30 mg PO DAILY 30 Days #30 cap 09/11/24 Folic Acid 1 mg PO DAILY tab 09/11/24 Ibuprofen [Motrin] 600 mg PO Q6HR PRN tab 09/11/24 Multivitamins, Thera [Multivitamin 1 each PO DAILY tab 09/11/24 (formulary)] Nicotine 14Mg/24Hr Patch [Habitrol] 1 patch TRANSDERM DAILY 14 Days 09/11/24 #14 patch Thiamine [Vitamin B-1] 100 mg PO DAILY tab 09/11/24 Albuterol Inhaler [Ventolin Hfa 2 puff INHALATION QID #8 gm 09/24/24 Inhaler] Azithromycin [Zithromax] 250 mg PO DAILY 4 Days #4 tab 09/24/24 predniSONE [Deltasone] 40 mg PO DAILY 5 Days #10 tab 09/24/24 Allergies Allergy/AdvReac Type Severity Reaction Status Date / Time Iodinated Contrast Media Allergy Itching-see Verified 09/23/24 04:31 comment fentanyl AdvReac Itching Verified 09/23/24 04:31 Review of Systems ROS Statement: Those systems with pertinent positive or pertinent negative responses have been documented in the HPI. Review of Systems: CONST: Denies fever EYES: Denies blurry vision ENT: Denies nasal congestion C/V: Denies Chest pain RESP: Endorses cough, wheezing. Endorses chest tightness GI: Denies abdominal pain : Denies dysuria SKIN: Denies rash. MSK: Denies joint pain. NEURO: Denies headache ROS Other: All systems not noted in ROS Statement are negative. Past Medical History Past Medical History: COPD, GERD/Reflux, GI Bleed, Hypertension, Myocardial Infarction ([place]), Pneumonia, Skin Disorder Additional Past Medical History / Comment(s): ETOH abuse with delirium tremors, lower GI bleed, IBS, chronic iron deficiency anemia, hypomagnesemia, hyperbilirubinemia, anorexia, vertigo, nephrolithiasis-passed stone on his own, chronic low back/cervical pain, DDD, kyphosis, scoliosis, coccyx pressure ulcer pt states is mostly healed. Dry and itchy skin back in high school. 2 heart attacks, one in December (2020) second in February (2020). Last Myocardial Infarction Date:: june 2023 History of Any Multi-Drug Resistant Organisms: None Reported Past Surgical History: Bariatric Surgery, Heart Catheterization With Stent, Hernia Repair, Orthopedic Surgery, Tonsillectomy Additional Past Surgical History / Comment(s): Right inner Forearm-metal plate, gastric bypass, incisional hernia surgery x2, EGDs, colonoscopies. 2 Stents placed in December 2020; bilateral knee surgeries Past Anesthesia/Blood Transfusion Reactions: No Reported Reaction Date of Last Stent Placement:: december 2020 Past Psychological History: Anxiety, Bipolar, Depression, PTSD Smoking Status: Current every day smoker Past Alcohol Use History: Abuse, Daily Past Drug Use History: None Reported - Past Family History Mother History Unknown: Yes Family Medical History: Hypertension Additional Family Medical History / Comment(s): Lupus. Mother is living. Father History Unknown: Yes Family Medical History: Liver Disease Additional Family Medical History / Comment(s): ETOH abuse. of cirrhosis complications. General Exam - General Exam Comments Initial Comments: General: Appears in no acute distress. HEAD: Normal with no signs of head trauma. EYES: PERRLA, EOMI, conjunctiva normal, no discharge. ENT: Hearing grossly intact, normal oropharynx. RESPIRATORY: Diffuse end expiratory wheezing. Normoxic on room air. No significant increased work of breathing. C/V: Regular rate and rhythm. S1 and S2 auscultated, no edema, peripheral pulses 2+ and intact throughout ABD: Abd is soft, nontender, nondistended EXT: Normal range of motion, no obvious deformity SKIN: No rashes or lesions observed on exposed skin. NEURO: Alert and oriented x 4. Limitations: language barrier Course Vital Signs 09/24/24 09/24/24 09/24/24 17:25 18:19 18:28 Temperature 98.4 F Pulse Rate 114 H 108 H 116 H Respiratory 24 Rate Blood Pressure 130/78 O2 Sat by Pulse 95 Oximetry 09/24/24 19:41 Temperature 98.1 F Pulse Rate 112 H Respiratory 18 Rate Blood Pressure 132/92 O2 Sat by Pulse 95 Oximetry Medical Decision Making - Medical Decision Making Was pt. sent in by a medical professional or institution (TRACEY Katz, PLANT SCIENTIST, urgent care, hospital, or alf...) When possible be specific @ -No Did you speak to anyone other than the patient for history (EMS, parent, family, police, friend...)? What history was obtained from this source @ -No Did you review nursing and triage notes (agree or disagree)? Why? @ -I reviewed and agree with nursing and triage notes Were old charts reviewed (outside hosp., previous admission, EMS record, old EKG, old radiological studies, urgent care reports/EKG's, alf records)? Report findings @ -Reviewed chart from this morning when patient presented for similar complaints. Diagnosed with RSV and COPD exacerbation at that time. Differential Diagnosis (chest pain, altered mental status, abdominal pain women, abdominal pain men, vaginal bleeding, weakness, fever, dyspnea, syncope, headache, dizziness, GI bleed, back pain, seizure, CVA, palpatations, mental health, musculoskeletal)? @ -RSV, COPD, tobacco abuse, this list is not all inclusive. EKG interpreted by me (3pts min.). @ -As above X-rays interpreted by me (1pt min.). @ -Chest x-ray reveals no obvious acute change. Compared with recent chest x- rays which appears relatively consistent with bilateral haziness. Not significantly worse. Radiology today states that is pulmonary edema versus atypical pneumonia. CT interpreted by me (1pt min.). @ -None done U/S interpreted by me (1pt. min.). @ -None done What testing was considered but not performed or refused? (CT, X-rays, U/S, labs)? Why? @ -None What meds were considered but not given or refused? Why? @ -None Did you discuss the management of the patient with other professionals (professionals i.e. , PA, PLANT SCIENTIST, lab, RT, psych nurse, social work manager, store receiver, teacher, aviation tactical readiness officer, correctional counselor/case manager)? Give summary @ -Spoke with Dr. Baker patient's PCP was in agreement plan with outpatient follow-up. Was smoking cessation discussed for >3mins.? @ -Yes Was critical care preformed (if so, how long)? @ -No Were there social determinants of health that impacted care today? How? (Homelessness, low income, unemployed, alcoholism, drug addiction, fernandes sportation, low edu. Level, literacy, decrease access to med. care, alf, rehab)? @ -Tobacco abuse Was there de-escalation of care discussed even if they declined (Discuss DNR or withdrawal of care, Hospice)? DNR status @ -No What co-morbidities impacted this encounter? (DM, HTN, Smoking, COPD, CAD, Cancer, CVA, ARF, Chemo, Hep., AIDS, mental health diagnosis, sleep apnea, morbid obesity)? @ -COPD, tobacco abuse Was patient admitted / discharged? Hospital course, mention meds given and route, prescriptions, significant lab abnormalities, going to OR and other pertinent info. @ -Patient presents for productive cough of sputum, wheezing. States that he had similar complaints this morning and felt improved however went home and smoked more cigarettes which caused his symptoms to return. His chest tightness which is chronic when patient has COPD act up. Presents for further evaluation at this time. Vitals are unremarkable. Not requiring oxygen. We will obtain general workup. He was in agreement this plan. Given IV Solu-Medrol as well as a breathing treatment. EKG shows no signs of acute ischemia. Chest x-ray shows chronic findings, radiology states pulm vascular congestion versus multifocal pneumonia however seen on multiple prior x-rays. Laboratory studies remarkable for chronic anemia, slight elevated leukocytosis of 12, a chronically mildly elevated troponin of 0.069 which is flat when compared with troponin from this morning, as well as a BNP that is elevated. Patient has no clinical symptoms of CHF. No peripheral edema, no paroxysmal nocturnal dyspnea. No orthopnea. I do believe this is a COPD exacerbation with possible tracheobronchitis. The chest x-ray findings do appear chronic. I did offer to admit the patient however he states he feels improved and wants to go home. He will follow-up with his PCP. He will be given a prescription for prednisone, azithromycin and instructed to return to the ER if any worsening symptoms. He was in agreement this plan. I did speak with his PCP, Dr. Baker who was in agreement the plan for follow-up in the office in the next few days. I emphasized tobacco cessation as this is likely why he return to the ER this evening. He expressed understanding. I will provide the patient with a prescription for prednisone, azithromycin. States he does not require breathing treatment or inhaler refills.. I instructed the patient to follow up with their PCP in the next 1-3 days.. I explained that the patient should return to the emergency department if they experience any worsening symptoms. Strict return precautions were discussed with the patient. The patient expressed understanding of these instructions. I answered all questions that the patient had. The patient was discharged home in good condition with their prescriptions and follow up information. Undiagnosed new problem with uncertain prognosis? @ -No Drug Therapy requiring intensive monitoring for toxicity (Heparin, Nitro, Insulin, Cardizem)? @ -No Were any procedures done? @ -No Diagnosis/symptom? @ -COPD, tracheobronchitis, tobacco dependence Acute, or Chronic, or Acute on Chronic? @ -Acute on chronic Uncomplicated (without systemic symptoms) or Complicated (systemic symptoms)? @ -Complicated Side effects of treatment? @ -No Exacerbation, Progression, or Severe Exacerbation? @ -No Poses a threat to life or bodily function? How? (Chest pain, [place], [place], pneumonia, PE, COPD, DKA, ARF, appy, cholecystitis, CVA, Diverticulitis, Homicidal, Suicidal, threat to staff... and all critical care pts) @ -Unlikely at this time - Lab Data Result diagrams: 09/24/24 18:02 09/24/24 18:02 Lab Results 09/24/24 09/24/24 09/24/24 Range/Units 18:02 18:02 18:02 WBC 12.9 H (3.8-10.6) k/uL RBC 4.21 L (4.30-5.90) m/uL Hgb 9.0 L (13.0-17.5) gm/dL Hct 32.5 L (39.0-53.0) % MCV 77.2 L (80.0-100.0) fL MCH 21.5 L (25.0-35.0) pg MCHC 27.8 L (31.0-37.0) g/dL RDW 19.4 H (11.5-15.5) % Plt Count 562 H (150-450) k/uL MPV 6.6 Neutrophils % 82 % Lymphocytes % 11 % Monocytes % 4 % Eosinophils % 0 % Basophils % 0 % Neutrophils # 10.6 H (1.3-7.7) k/uL Lymphocytes # 1.5 (1.0-4.8) k/uL Monocytes # 0.6 (0-1.0) k/uL Eosinophils # 0.0 (0-0.7) k/uL Basophils # 0.0 (0-0.2) k/uL Hypochromasia Marked Poikilocytosis Slight Anisocytosis Slight Microcytosis Moderate PT 10.1 (10.0-12.5) sec INR 0.9 (<1.2) APTT 22.6 (22.0-30.0) sec Sodium 141 (137-145) mmol/L Potassium 4.6 (3.5-5.1) mmol/L Chloride 104 (98-107) mmol/L Carbon Dioxide 30 (22-30) mmol/L Anion Gap 7 mmol/L BUN 27 H (9-20) mg/dL Creatinine 0.61 L (0.66-1.25) mg/dL Est GFR (CKD-EPI)AfAm >90 (>60 ml/min/1.73 sqM) Est GFR (CKD-EPI)NonAf >90 (>60 ml/min/1.73 sqM) Glucose 132 H (74-99) mg/dL Plasma Lactic Acid Jesse (0.7-2.0) mmol/L Calcium 8.9 (8.4-10.2) mg/dL Magnesium 2.0 (1.6-2.3) mg/dL Total Bilirubin 0.4 (0.2-1.3) mg/dL AST 29 (17-59) U/L ALT 21 (4-49) U/L Alkaline Phosphatase 78 (38-126) U/L Troponin I (0.000-0.034) ng/mL NT-Pro-B Natriuret Pep 8620 pg/mL Total Protein 6.6 (6.3-8.2) g/dL Albumin 3.6 (3.5-5.0) g/dL Urine Color Urine Appearance (Clear) Urine pH (5.0-8.0) Ur Specific [place] (1.001-1.035) Urine Protein (Negative) Urine Glucose (UA) (Negative) Urine Ketones (Negative) Urine Blood (Negative) Urine Nitrite (Negative) Urine Bilirubin (Negative) Urine Urobilinogen (<2.0) mg/dL Ur Leukocyte Esterase (Negative) 09/24/24 09/24/24 09/24/24 Range/Units 18:02 18:02 18:12 WBC (3.8-10.6) k/uL RBC (4.30-5.90) m/uL Hgb (13.0-17.5) gm/dL Hct (39.0-53.0) % MCV (80.0-100.0) fL MCH (25.0-35.0) pg MCHC (31.0-37.0) g/dL RDW (11.5-15.5) % Plt Count (150-450) k/uL MPV Neutrophils % % Lymphocytes % % Monocytes % % Eosinophils % % Basophils % % Neutrophils # (1.3-7.7) k/uL Lymphocytes # (1.0-4.8) k/uL Monocytes # (0-1.0) k/uL Eosinophils # (0-0.7) k/uL Basophils # (0-0.2) k/uL Hypochromasia Poikilocytosis Anisocytosis Microcytosis PT (10.0-12.5) sec INR (<1.2) APTT (22.0-30.0) sec Sodium (137-145) mmol/L Potassium (3.5-5.1) mmol/L Chloride (98-107) mmol/L Carbon Dioxide (22-30) mmol/L Anion Gap mmol/L BUN (9-20) mg/dL Creatinine (0.66-1.25) mg/dL Est GFR (CKD-EPI)AfAm (>60 ml/min/1.73 sqM) Est GFR (CKD-EPI)NonAf (>60 ml/min/1.73 sqM) Glucose (74-99) mg/dL Plasma Lactic Acid Jesse 1.8 (0.7-2.0) mmol/L Calcium (8.4-10.2) mg/dL Magnesium (1.6-2.3) mg/dL Total Bilirubin (0.2-1.3) mg/dL AST (17-59) U/L ALT (4-49) U/L Alkaline Phosphatase (38-126) U/L Troponin I 0.069 H* (0.000-0.034) ng/mL NT-Pro-B Natriuret Pep pg/mL Total Protein (6.3-8.2) g/dL Albumin (3.5-5.0) g/dL Urine Color Light Yellow Urine Appearance Clear (Clear) Urine pH 5.5 (5.0-8.0) Ur Specific [place] 1.016 (1.001-1.035) Urine Protein Negative (Negative) Urine Glucose (UA) Negative (Negative) Urine Ketones Negative (Negative) Urine Blood Negative (Negative) Urine Nitrite Negative (Negative) Urine Bilirubin Negative (Negative) Urine Urobilinogen <2.0 (<2.0) mg/dL Ur Leukocyte Esterase Negative (Negative) - EKG Data -: EKG Interpreted by Me EKG Comments: 12-lead Electrocardiogram Interpretation Note EKG was reviewed and interpreted by myself. 12-lead ECG performed at 1806 is interpreted by me as revealing sinus tachycardia at a rate of 108 beats per minute. [place] is normal. VT interval is 152 ms, QRS duration is 117 ms, QTc is 3 to 93 ms.. There were no ST or T wave abnormalities to suggest myocardial ischemia or injury. R wave progression across the precordium was satisfactory. By my interpretation this EKG is non-diagnostic for acute ischemia. Compared w [facility] EKG from September 23, 2024, no significant change. Disposition Clinical Impression: COPD (chronic obstructive pulmonary disease), Tobacco dependence, Tracheobronchitis Disposition: HOME SELF-CARE Condition: Good Instructions (If sedation given, give patient instructions): Acute Bronchitis (ED), COPD (Chronic Obstructive Pulmonary Disease) (ED) Additional Instructions: Follow-up with your PCP Dr. Baker next 1 to 3 days. Return to the ER if worsening symptoms. Prescriptions: predniSONE [Deltasone] 40 mg PO DAILY 5 Days #10 tab Albuterol Inhaler [Ventolin Hfa Inhaler] 2 puff INHALATION QID #8 gm Azithromycin [Zithromax] 250 mg PO DAILY 4 Days #4 tab Is patient prescribed a controlled substance at d/c from ED?: No Referrals: Gurvinder Baker DO [Primary Care Provider] - 1-2 days Time of Disposition: 19:14
[2024-09-24] MEDS: AZITHROMYCIN 500 MG TAB PO STA (19:34)
[2024-09-24] MEDS: predniSONE 20 MG TAB PO STA (19:34)
[2024-09-24 19:42] VITALS: BP 132/92; PULSE 112; RESP 18; TEMP 98.1
== END 2024-09-24 19:42 | disposition home or self-care (01) ==
LOC: EC 17:21
DX: J40 Bronchitis, not specified as acute or chronic (principal); J44.1 Chronic obstructive pulmonary disease with (acute) exacerbation; F17.200 Nicotine dependence, unspecified, uncomplicated
CPT/HCPCS: 36415; 94640; 93005; 83880; 80053; 83605; 83735; 84484; 85025; 85610; 85730; 81003; 71046; 99285; 96374; 96375; J1885; J7512; J2919

== ENCOUNTER 2024-09-26 13:08 | Emergency (ER) | payer MEDICARE ==
[2024-09-26 13:40] VITALS: RESP 18
--- NOTE | 2024-09-26 14:18 | ED ---
General Adult HPI - General Source: patient, EMS, RN notes reviewed, old records reviewed Mode of arrival: EMS Limitations: no limitations <Harjinder Chavis - Last Filed: 09/26/24 14:48> <Iraj Polanco - Last Filed: 09/26/24 21:12> - General Chief complaint: Upper Respiratory Infection Stated complaint: ITALO Time Seen by Provider: 09/26/24 13:11 - History of Present Illness Initial comments: 58-year-old male history of COPD with recent diagnosis of RSV presenting with increased cough and dyspnea. Patient denies current fevers. Denies central chest pain. Denies lower extremity pain or swelling. He reports dry cough and moderate dyspnea which is not improving as an outpatient. (Harjinder Chavis) - Related Data Home Medications Medication Instructions Recorded Confirmed ARIPiprazole IM [Abilify Maintena] 400 mg IM Q30D 09/26/24 09/26/24 Albuterol Inhaler [Ventolin Hfa 2 puff INHALATION RT-QID PRN 09/26/24 09/26/24 Inhaler] Amiodarone [Cordarone] 200 mg PO DAILY 09/26/24 09/26/24 Azithromycin [Zithromax] See Taper PO DIRECTED 09/26/24 09/26/24 DULoxetine HCL [Cymbalta] 60 mg PO DAILY 09/26/24 09/26/24 Omeprazole 20 mg PO DAILY 09/26/24 09/26/24 lisinopriL [Zestril] 2.5 mg PO DAILY 09/26/24 09/26/24 predniSONE [Deltasone] 40 mg PO DIRECTED 09/26/24 09/26/24 Previous Rx's Medication Instructions Recorded Ibuprofen [Motrin] 600 mg PO Q6HR PRN tab 09/11/24 Albuterol Inhaler [Ventolin Hfa 2 puff INHALATION Q4HR PRN #8 gm 09/26/24 Inhaler] predniSONE 60 mg PO DAILY #30 tab 09/26/24 Allergies Allergy/AdvReac Type Severity Reaction Status Date / Time Iodinated Contrast Media Allergy Itching-see Verified 09/26/24 14:43 comment fentanyl AdvReac Itching Verified 09/26/24 14:43 Review of Systems ROS Other: All systems not noted in ROS Statement are negative. <Harjinder Chavis - Last Filed: 09/26/24 14:48> ROS Other: All systems not noted in ROS Statement are negative. <Iraj Polanco - Last Filed: 09/26/24 21:12> ROS Statement: Those systems with pertinent positive or pertinent negative responses have been documented in the HPI. Past Medical History Past Medical History: COPD, GERD/Reflux, GI Bleed, Hypertension, Myocardial Infarction ([place]), Pneumonia, Skin Disorder Additional Past Medical History / Comment(s): ETOH abuse with delirium tremors, lower GI bleed, IBS, chronic iron deficiency anemia, hypomagnesemia, hyperb ilirubinemia, anorexia, vertigo, nephrolithiasis-passed stone on his own, chronic low back/cervical pain, DDD, kyphosis, scoliosis, coccyx pressure ulcer pt states is mostly healed. Dry and itchy skin back in high school. 2 heart attacks, one in December (2020) second in February (2020). Last Myocardial Infarction Date:: june 2023 History of Any Multi-Drug Resistant Organisms: None Reported Past Surgical History: Bariatric Surgery, Heart Catheterization With Stent, Hernia Repair, Orthopedic Surgery, Tonsillectomy Additional Past Surgical History / Comment(s): Right inner Forearm-metal plate, gastric bypass, incisional hernia surgery x2, EGDs, colonoscopies. 2 Stents placed in December 2020; bilateral knee surgeries Past Anesthesia/Blood Transfusion Reactions: No Reported Reaction Date of Last Stent Placement:: december 2020 Past Psychological History: Anxiety, Bipolar, Depression, PTSD Smoking Status: Current every day smoker Past Alcohol Use History: Abuse, Daily Past Drug Use History: None Reported - Past Family History Mother History Unknown: Yes Family Medical History: Hypertension Additional Family Medical History / Comment(s): Lupus. Mother is living. Father History Unknown: Yes Family Medical History: Liver Disease Additional Family Medical History / Comment(s): ETOH abuse. of cirrhosis complications. <Harjinder Chavis Jaqueline - Last Filed: 09/26/24 14:48> General Exam General appearance: alert, in no apparent distress Head exam: Present: atraumatic, normocephalic Eye exam: Present: normal appearance, PERRL ENT exam: Present: normal exam Neck exam: Present: normal inspection. Absent: tenderness Respiratory exam: Present: wheezes, decreased breath sounds, prolonged expiratory. Absent: respiratory distress Cardiovascular Exam: Present: normal rhythm, tachycardia GI/Abdominal exam: Present: soft. Absent: distended, tenderness, guarding Extremities exam: Present: normal inspection, normal capillary refill. Absent: calf tenderness Neurological exam: Present: alert, oriented X3 Psychiatric exam: Present: normal affect, normal mood Skin exam: Present: warm, dry, intact. Absent: cyanosis, diaphoretic <Harjinder Chavis - Last Filed: 09/26/24 14:48> Course Vital Signs 09/26/24 09/26/24 09/26/24 13:27 14:46 15:01 Temperature 97.8 F Pulse Rate 114 H 112 H 110 H Respiratory 18 Rate Blood Pressure 136/92 O2 Sat by Pulse 97 Oximetry 09/26/24 09/26/24 09/26/24 18:40 20:48 20:58 Temperature Pulse Rate 88 116 H 120 H Respiratory 18 Rate Blood Pressure 127/87 O2 Sat by Pulse 97 Oximetry EKG Findings - EKG Results: EKG: interpreted by ERMD EKG shows: tachycardia (Rate 116 bpm) - Blocks, [place], Hypertrophy, ST Abn: AV and intraventricular conduction: intraventricular conduction delay Repolarization changes or abnormalities: nonspecific abnormality, ST segment, and/or T wave <Iraj Polanco - Last Filed: 09/26/24 21:12> Medical Decision Making <Harjinder Chavis - Last Filed: 09/26/24 14:48> - Lab Data Result diagrams: 09/26/24 18:14 09/26/24 14:44 <Iraj Polanco - Last Filed: 09/26/24 21:12> - Medical Decision Making Was pt. sent in by a medical professional or institution (, PA, [facility]ST [facility]ODEL[facility] REPAIR[facility], urgent care, hospital, or fdc...) When possible be specific @ -No Did you speak to anyone other than the patient for history (EMS, parent, family, police, friend...)? What history was obtained from this source @ -No Did you review nursing and triage notes (agree or disagree)? Why? @ -I reviewed and agree with nursing and triage notes Were old charts reviewed (outside hosp., previous admission, EMS record, old EKG, old radiological studies, urgent care reports/EKG's, fdc records)? Report findings @ -No old charts were reviewed Differential Dyspnea: Coronary syndrome, arrhythmia, tamponade, asthma, COPD, pulmonary embolism, pneumonia, pneumothorax, pulmonary effusion, anaphylaxis, diabetic ketoacidosis, flailed chest, pulmonary contusion, diaphragmatic rupture, anemia, neuromuscular, this is not meant to be an all-inclusive list. EKG interpreted by me (3pts min.). @ -As above X-rays interpreted by me (1pt min.). @ -Chest x-ray ordered, results pending CT interpreted by me (1pt min.). @ -None done U/S interpreted by me (1pt. min.). @ -None done What testing was considered but not performed or refused? (CT, X-rays, U/S, labs)? Why? @ -None What meds were considered but not given or refused? Why? @ -None Did you discuss the management of the patient with other professionals (professionals i.e. , PA, LAST REMODELER REPAIRER, lab, RT, psych nurse, aids social worker, line supply, teacher, chief investment officer, senior case manager)? Give summary @ -No Was smoking cessation discussed for >3mins.? @ -No Was critical care preformed (if so, how long)? @ -No Were there social determinants of health that impacted care today? How? (Homelessness, low income, unemployed, alcoholism, drug addiction, transportation, low edu. Level, literacy, decrease access to med. care, fdc, rehab)? @ -No Was there de-escalation of care discussed even if they declined (Discuss DNR or withdrawal of care, Hospice)? DNR status @ -No What co-morbidities impacted this encounter? (DM, HTN, Smoking, COPD, CAD, Cancer, CVA, ARF, Chemo, Hep., AIDS, mental health diagnosis, sleep apnea, morbid obesity)? @COPD Was patient admitted / discharged? Hospital course, mention meds given and route, prescriptions, significant lab abnormalities, going to OR and other pertinent info. @ -[Patient care signed out to Dr. Polanco at shift change awaiting laboratory testing, x-ray, reevaluation. (Harjinder Chavis) - Lab Data Lab Results 09/26/24 09/26/24 09/26/24 Range/Units 14:44 14:44 14:44 WBC (3.8-10.6) k/uL RBC (4.30-5.90) m/uL Hgb (13.0-17.5) gm/dL Hct (39.0-53.0) % MCV (80.0-100.0) fL MCH (25.0-35.0) pg MCHC (31.0-37.0) g/dL RDW (11.5-15.5) % Plt Count (150-450) k/uL MPV Neutrophils % % Lymphocytes % % Monocytes % % Eosinophils % % Basophils % % Neutrophils # (1.3-7.7) k/uL Lymphocytes # (1.0-4.8) k/uL Monocytes # (0-1.0) k/uL Eosinophils # (0-0.7) k/uL Basophils # (0-0.2) k/uL Hypochromasia Poikilocytosis Anisocytosis Microcytosis PT 11.3 (10.0-12.5) sec INR 1.0 (<1.2) APTT 21.8 L (22.0-30.0) sec Sodium 129 L (137-145) mmol/L Potassium 4.6 (3.5-5.1) mmol/L Chloride 95 L (98-107) mmol/L Carbon Dioxide 29 (22-30) mmol/L Anion Gap 5 mmol/L BUN 13 (9-20) mg/dL Creatinine 0.45 L (0.66-1.25) mg/dL Est GFR (CKD-EPI)AfAm >90 (>60 ml/min/1.73 sqM) Est GFR (CKD-EPI)NonAf >90 (>60 ml/min/1.73 sqM) Glucose 141 H (74-99) mg/dL Plasma Lactic Acid Jesse (0.7-2.0) mmol/L Calcium 8.5 (8.4-10.2) mg/dL Magnesium 1.7 (1.6-2.3) mg/dL Total Bilirubin 1.0 (0.2-1.3) mg/dL AST 30 (17-59) U/L ALT 16 (4-49) U/L Alkaline Phosphatase 83 (38-126) U/L Total Protein 6.2 L (6.3-8.2) g/dL Albumin 3.3 L (3.5-5.0) g/dL Influenza Type A (PCR) (Not Detectd) Influenza Type B (PCR) (Not Detectd) RSV (PCR) (Not Detectd) SARS-CoV-2 (PCR) (Not Detectd) Blood Type Blood Type Recheck Bld Type Recheck Status Antibody Screen Spec Expiration Date 09/26/24 09/26/24 09/26/24 Range/Units 14:44 14:44 18:14 WBC 15.4 H (3.8-10.6) k/uL RBC 4.35 (4.30-5.90) m/uL Hgb 9.5 L (13.0-17.5) gm/dL Hct 32.5 L (39.0-53.0) % MCV 74.9 L (80.0-100.0) fL MCH 21.8 L (25.0-35.0) pg MCHC 29.1 L (31.0-37.0) g/dL RDW 19.1 H (11.5-15.5) % Plt Count 591 H (150-450) k/uL MPV 6.2 Neutrophils % 94 % Lymphocytes % 3 % Monocytes % 3 % Eosinophils % 0 % Basophils % 0 % Neutrophils # 14.4 H (1.3-7.7) k/uL Lymphocytes # 0.5 L (1.0-4.8) k/uL Monocytes # 0.4 (0-1.0) k/uL Eosinophils # 0.0 (0-0.7) k/uL Basophils # 0.0 (0-0.2) k/uL Hypochromasia Marked Poikilocytosis Slight Anisocytosis Slight Microcytosis Moderate PT (10.0-12.5) sec INR (<1.2) APTT (22.0-30.0) sec Sodium (137-145) mmol/L Potassium (3.5-5.1) mmol/L Chloride (98-107) mmol/L Carbon Dioxide (22-30) mmol/L Anion Gap mmol/L BUN (9-20) mg/dL Creatinine (0.66-1.25) mg/dL Est GFR (CKD-EPI)AfAm (>60 ml/min/1.73 sqM) Est GFR (CKD-EPI)NonAf (>60 ml/min/1.73 sqM) Glucose (74-99) mg/dL Plasma Lactic Acid Jesse 1.2 (0.7-2.0) mmol/L Calcium (8.4-10.2) mg/dL Magnesium (1.6-2.3) mg/dL Total Bilirubin (0.2-1.3) mg/dL AST (17-59) U/L ALT (4-49) U/L Alkaline Phosphatase (38-126) U/L Total Protein (6.3-8.2) g/dL Albumin (3.5-5.0) g/dL Influenza Type A (PCR) Not Detected (Not Detectd) Influenza Type B (PCR) Not Detected (Not Detectd) RSV (PCR) Detected A (Not Detectd) SARS-CoV-2 (PCR) Not Detected (Not Detectd) Blood Type Blood Type Recheck Bld Type Recheck Status Antibody Screen Spec Expiration Date 09/26/24 Range/Units 18:54 WBC (3.8-10.6) k/uL RBC (4.30-5.90) m/uL Hgb (13.0-17.5) gm/dL Hct (39.0-53.0) % MCV (80.0-100.0) fL MCH (25.0-35.0) pg MCHC (31.0-37.0) g/dL RDW (11.5-15.5) % Plt Count (150-450) k/uL MPV Neutrophils % % Lymphocytes % % Monocytes % % Eosinophils % % Basophils % % Neutrophils # (1.3-7.7) k/uL Lymphocytes # (1.0-4.8) k/uL Monocytes # (0-1.0) k/uL Eosinophils # (0-0.7) k/uL Basophils # (0-0.2) k/uL Hypochromasia Poikilocytosis Anisocytosis Microcytosis PT (10.0-12.5) sec INR (<1.2) APTT (22.0-30.0) sec Sodium (137-145) mmol/L Potassium (3.5-5.1) mmol/L Chloride (98-107) mmol/L Carbon Dioxide (22-30) mmol/L Anion Gap mmol/L BUN (9-20) mg/dL Creatinine (0.66-1.25) mg/dL Est GFR (CKD-EPI)AfAm (>60 ml/min/1.73 sqM) Est GFR (CKD-EPI)NonAf (>60 ml/min/1.73 sqM) Glucose (74-99) mg/dL Plasma Lactic Acid Jesse (0.7-2.0) mmol/L Calcium (8.4-10.2) mg/dL Magnesium (1.6-2.3) mg/dL Total Bilirubin (0.2-1.3) mg/dL AST (17-59) U/L ALT (4-49) U/L Alkaline Phosphatase (38-126) U/L Total Protein (6.3-8.2) g/dL Albumin (3.5-5.0) g/dL Influenza Type A (PCR) (Not Detectd) Influenza Type B (PCR) (Not Detectd) RSV (PCR) (Not Detectd) SARS-CoV-2 (PCR) (Not Detectd) Blood Type A Negative Blood Type Recheck A Neg Bld Type Recheck Status No Antibody Screen NEGATIVE Spec Expiration Date 09/29/2024 - 2353 Disposition <Harjinder Chavis - Last Filed: 09/26/24 14:48> Is patient prescribed a controlled substance at d/c from ED?: No <Iraj Polanco - Last Filed: 09/26/24 21:12> Clinical Impression: COPD (chronic obstructive pulmonary disease), RSV (acute bronchiolitis due to respiratory syncytial virus) Disposition: HOME SELF-CARE Condition: Good Instructions (If sedation given, give patient instructions): Respiratory Syncytial Virus (ED), COPD (Chronic Obstructive Pulmonary Disease) (ED) Prescriptions: predniSONE 60 mg PO DAILY #30 tab Albuterol Inhaler [Ventolin Hfa Inhaler] 2 puff INHALATION Q4HR PRN #8 gm PRN Reason: Wheezing Referrals: Gurvinder Baker DO [Primary Care Provider] - 1-2 days
[2024-09-26] MEDS: IPRATROPIUM 0.5 MG/2.5 ML NEBU INHALATION STA (14:45)
[2024-09-26] MEDS: ALBUTEROL NEBULIZED 2.5 MG/3 ML INHALATION STA ×2 (14:46→20:47)
--- NOTE | 2024-09-26 15:20 | XR ---
EXAMINATION TYPE: XR chest 1V portable DATE OF EXAM: 09/26/2024 COMPARISON: Chest x-ray from 2 days earlier and older studies. CLINICAL INDICATION: Male, 58 years old with history of sob; TECHNIQUE: Single frontal view of the chest is obtained. FINDINGS: Elevated left hemidiaphragm is redemonstrated. Persistent bilateral increased opacities and mild cardiomegaly. No pleural effusion or pneumothorax seen bilaterally. Old right lateral seventh rib fracture redemonstrated. IMPRESSION: Persistent bilateral multifocal acute infiltrates and/or edema and elevated left hemidia phragm. No significant change from most recent study. [facility], , 09/26/2024 3:18 PM
[2024-09-26] MEDS: methylPREDNISolone SOD SUCCI 125 MG/2 ML VIAL IV STA (16:03)
[2024-09-26 18:02] LABS: ALT 16 U/L (4-49); AST 30 U/L (17-59); African American GFR (CKD) >90 (>60 ml/min/1.73 sqM); Albumin 3.3 g/dL (3.5-5.0); Alkaline Phosphatase 83 U/L (38-126); Anion Gap 5 mmol/L; Blood Urea Nitrogen 13 mg/dL (9-20); Calcium 8.5 mg/dL (8.4-10.2); Carbon Dioxide 29 mmol/L (22-30); Chloride 95 mmol/L (98-107); Glucose 141 mg/dL (74-99); Magnesium 1.7 mg/dL (1.6-2.3); Non-African American GFR(CKD) >90 (>60 ml/min/1.73 sqM); Potassium 4.6 mmol/L (3.5-5.1); Sodium 129 mmol/L (137-145); Total Protein 6.2 g/dL (6.3-8.2)
[2024-09-26 18:07] LABS: Partial Thromboplastin Time 21.8 sec (22.0-30.0); Prothrombin Time 11.3 sec (10.0-12.5)
[2024-09-26 18:19] LABS: Anisocytosis Slight; Basophils % (A) 0 %; Eosinophils % (A) 0 %; HCT 32.5 % (39.0-53.0); Hypochromasia Marked; Lymphocytes # (A) 0.5 k/uL (1.0-4.8); Lymphocytes % (A) 3 %; MCH 21.8 pg (25.0-35.0); MCHC 29.1 g/dL (31.0-37.0); MCV 74.9 fL (80.0-100.0); Mean Platelet Volume 6.2; Microcytosis Moderate; Monocytes # (A) 0.4 k/uL (0-1.0); Monocytes % (A) 3 %; Neutrophils # (A) 14.4 k/uL (1.3-7.7); Neutrophils % (A) 94 %; Platelet Count 591 k/uL (150-450); Poikilocytosis Slight; RBC 4.35 m/uL (4.30-5.90); RDW 19.1 % (11.5-15.5); WBC 15.4 k/uL (3.8-10.6)
[2024-09-26 18:34] LABS: HGB 9.5 gm/dL (13.0-17.5)
[2024-09-26 19:14] LABS: Influenza A Not Detected (Not Detectd); Influenza B Not Detected (Not Detectd); RSV Detected (Not Detectd)
[2024-09-26 21:59] VITALS: BP 117/76; PULSE 118; TEMP 98.8
== END 2024-09-26 21:45 | disposition home or self-care (01) ==
LOC: EC 13:08
DX: J44.9 Chronic obstructive pulmonary disease, unspecified (principal); J21.0 Acute bronchiolitis due to respiratory syncytial virus; F17.200 Nicotine dependence, unspecified, uncomplicated
CPT/HCPCS: 36415; 94640 ×2; 93005; 86900; 86901; 80053; 83605; 83735; 85025; 85610; 85730; 86850; 87040; 87636; 71045; 99285; 96374; J2919

== ENCOUNTER 2024-10-23 13:38 | Inpatient (IN) | payer MEDICARE ==
[2024-10-23 15:11] LABS: Anisocytosis Slight; Basophils % (A) 1 %; Eosinophils # (A) 0.1 k/uL (0-0.7); Eosinophils % (A) 1 %; HCT 28.8 % (39.0-53.0); HGB 8.1 gm/dL (13.0-17.5); Hypochromasia Marked; Lymphocytes % (A) 10 %; MCH 21.8 pg (25.0-35.0); MCHC 28.2 g/dL (31.0-37.0); MCV 77.4 fL (80.0-100.0); Mean Platelet Volume 7.6; Microcytosis Moderate; Monocytes # (A) 0.7 k/uL (0-1.0); Monocytes % (A) 8 %; Neutrophils # (A) 7.2 k/uL (1.3-7.7); Neutrophils % (A) 78 %; Platelet Count 393 k/uL (150-450); Poikilocytosis Slight; RBC 3.73 m/uL (4.30-5.90); RDW 19.6 % (11.5-15.5); WBC 9.3 k/uL (3.8-10.6)
[2024-10-23 15:14] LABS: Prothrombin Time 10.8 sec (10.0-12.5)
--- NOTE | 2024-10-23 15:22 | XR ---
EXAMINATION TYPE: XR chest 2V DATE OF EXAM: 10/23/2024 2:52 PM COMPARISON: 09/26/2024 CLINICAL INDICATION: Male, 59 years old with history of Chest Pain, , TECHNIQUE: AP and lateral views FINDINGS: Heart moderately enlarged. Diffuse interstitial opacities. Small bilateral pleural effusions on the l ateral view. More confluent opacity at the left lower lung. Old healed right-sided rib fracture defor mities. IMPRESSION: Correlate for CHF with patchy pulmonary edema. Small bilateral pleural effusions. More confluent opac ity, probably pulmonary edema at the the left base. [facility], Workstation: [facility], 10/23/2024 3:19 PM
[2024-10-23 15:26] LABS: ALT 19 U/L (4-49); African American GFR (CKD) >90 (>60 ml/min/1.73 sqM); Albumin 3.3 g/dL (3.5-5.0); Anion Gap 3 mmol/L; Blood Urea Nitrogen 20 mg/dL (9-20); Calcium 8.3 mg/dL (8.4-10.2); Carbon Dioxide 28 mmol/L (22-30); Chloride 100 mmol/L (98-107); Glucose 118 mg/dL (74-99); Non-African American GFR(CKD) >90 (>60 ml/min/1.73 sqM); Sodium 131 mmol/L (137-145); Total Bilirubin 0.7 mg/dL (0.2-1.3); Total Protein 6.2 g/dL (6.3-8.2)
[2024-10-23 15:33] LABS: NT-Pro-B-Type Natriuretic Pept 11000 pg/mL
[2024-10-23 15:46] LABS: AST 42 U/L (17-59); Alkaline Phosphatase 76 U/L (38-126); Magnesium 1.7 mg/dL (1.6-2.3); Potassium 4.9 mmol/L (3.5-5.1)
--- NOTE | 2024-10-23 16:42 | ED ---
Chest Pain HPI - General Chief Complaint: Chest Pain Stated Complaint: chest pain Time Seen by Provider: 10/23/24 13:40 Source: patient, EMS Mode of arrival: EMS Limitations: no limitations - History of Present Illness Initial Comments: 59-year-old male with past medical history of COPD, hypertension, coronary disease who presents to the emergency department for chest pain. Patient reports the pain started 4 hours ago while he was watching TV. He describes it as a pressure sensation in his chest. Does make him feel short of breath. No nausea, vomiting or diaphoresis. Does admit to previous history of MIs. Patient believes he is on Plavix. States he has been taking his medications as instructed. He is currently in between doctors. Pain is graded as a 5 out of 10. He did receive aspirin and nitro by EMS and states that it did help alleviate some of his symptoms. He denies chills or cough. He does not wear oxygen at home. Denies any lower extremity edema. No other alleviating, precipitating or modifying factors - Related Data Home Medications Medication Instructions Recorded Confirmed ARIPiprazole IM [Abilify Maintena] 400 mg IM Q28D 09/26/24 10/23/24 Albuterol Inhaler [Ventolin Hfa 2 puff INHALATION RT-QID PRN 09/26/24 10/23/24 Inhaler] Amiodarone [Cordarone] 200 mg PO DAILY 09/26/24 10/23/24 Omeprazole 20 mg PO DAILY 09/26/24 10/23/24 lisinopriL [Zestril] 2.5 mg PO DAILY 09/26/24 10/23/24 DULoxetine HCL [Cymbalta] 30 mg PO DAILY 10/23/24 10/23/24 Folic Acid 1 mg PO DAILY 10/23/24 10/23/24 Furosemide [Lasix] 40 mg PO BID 10/23/24 10/23/24 metFORMIN HCL 500 mg PO BID 10/23/24 10/23/24 Previous Rx's Medication Instructions Recorded Ibuprofen [Motrin] 600 mg PO Q6HR PRN tab 09/11/24 Allergies Allergy/AdvReac Type Severity Reaction Status Date / Time Iodinated Contrast Media Allergy Itching-see Verified 10/23/24 18:14 comment fentanyl AdvReac Itching Verified 10/23/24 18:14 Review of Systems ROS Statement: Those systems with pertinent positive or pertinent negative responses have been documented in the HPI. ROS Other: All systems not noted in ROS Statement are negative. Past Medical History Past Medical History: COPD, GERD/Reflux, GI Bleed, Hypertension, Myocardial Infarction ([place]), Pneumonia, Skin Disorder Additional Past Medical History / Comment(s): ETOH abuse with delirium tremors, lower GI bleed, IBS, chronic iron deficiency anemia, hypomagnesemia, hyperbilirubinemia, anorexia, vertigo, nephrolithiasis-passed stone on his own, chronic low back/cervical pain, DDD, kyphosis, scoliosis, coccyx pressure ulcer pt states is mostly healed. Dry and itchy skin back in high school. 2 heart attacks, one in December (2020) second in February (2020). Last Myocardial Infarction Date:: june 2023 History of Any Multi-Drug Resistant Organisms: None Reported Past Surgical History: Bariatric Surgery, Heart Catheterization With Stent, Hernia Repair, Orthopedic Surgery, Tonsillectomy Additional Past Surgical History / Comment(s): Right inner Forearm-metal plate, gastric bypass, incisional hernia surgery x2, EGDs, colonoscopies. 2 Stents placed in December 2020; bilateral knee surgeries Past Anesthesia/Blood Transfusion Reactions: No Reported Reaction Date of Last Stent Placement:: december 2020 Past Psychological History: Anxiety, Bipolar, Depression, PTSD Smoking Status: Current every day smoker Past Alcohol Use History: Abuse, Daily Past Drug Use History: Marijuana - Past Family History Mother History Unknown: Yes Family Medical History: Hypertension Additional Family Medical History / Comment(s): Lupus. Mother is living. Father History Unknown: Yes Family Medical History: Liver Disease Additional Family Medical History / Comment(s): ETOH abuse. of cirrhosis complications. General Exam Limitations: no limitations General appearance: alert, in no apparent distress Head exam: Present: atraumatic, normocephalic, normal inspection Eye exam: Present: normal appearance, PERRL, EOMI. Absent: scleral icterus, conjunctival injection, periorbital swelling ENT exam: Present: normal exam, mucous membranes moist Neck exam: Present: normal inspection. Absent: tenderness, meningismus, lymphadenopathy Respiratory exam: Present: rales, decreased breath sounds. Absent: respiratory distress, wheezes, rhonchi, stridor Cardiovascular Exam: Present: regular rate, normal rhythm, normal heart sounds. Absent: systolic murmur, diastolic murmur, rubs, gallop, clicks GI/Abdominal exam: Present: soft, normal bowel sounds. Absent: distended, tenderness, guarding, rebound, rigid Extremities exam: Present: normal inspection, full ROM, normal capillary refill. Absent: tenderness, pedal edema, joint swelling, calf tenderness Back exam: Present: normal inspection Neurological exam: Present: alert, oriented X3, CN II-XII intact Psychiatric exam: Present: normal affect, normal mood Skin exam: Present: warm, dry, intact, normal color. Absent: rash Course Vital Signs 10/23/24 10/23/24 10/23/24 13:41 14:00 14:30 Temperature 97.7 F Pulse Rate 93 90 92 Respiratory 18 18 18 Rate Blood Pressure 108/72 107/77 110/80 O2 Sat by Pulse 98 97 98 Oximetry 10/23/24 10/23/24 10/23/24 15:30 18:35 19:48 Temperature Pulse Rate 92 96 92 Respiratory 18 18 18 Rate Blood Pressure 113/85 120/86 100/74 O2 Sat by Pulse 100 99 98 Oximetry Chest Pain MDM - MDM Was pt. sent in by a medical professional or institution (, PA, HEALTH AID, urgent care, hospital, or intermediate...) When possible be specific @ -No Did you speak to anyone other than the patient for history (EMS, parent, family, police, friend...)? What history was obtained from this source @ -No Did you review nursing and triage notes (agree or disagree)? Why? @ -I reviewed and agree with nursing and triage notes Were old charts reviewed (outside hosp., previous admission, EMS record, old EKG, old radiological studies, urgent care reports/EKG's, intermediate records)? Report findings @ -No old charts were reviewed Differential Diagnosis (chest pain, altered mental status, abdominal pain women, abdominal pain men, vaginal bleeding, weakness, fever, dyspnea, syncope, headache, dizziness, GI bleed, back pain, seizure, CVA, palpatations, mental health, musculoskeletal)? @ -Differential Chest Pain: Stable Angina, Unstable Angina, STEMI, NSTEMI Aortic Dissection, Pneumothorax, Musculoskeletal, Esophageal Spasm GERD, Cholecystitis, Pancreatitis, Zoster, this is not meant to be an all-inclusive list. EKG interpreted by me (3pts min.). @ -Yes and demonstrates sinus rhythm with a rate of 93. [place] interval 171. QRS 105. QTc of 412. No acute ST segment elevations depressions X-rays interpreted by me (1pt min.). @ -Yes which demonstrate signs of heart failure CT interpreted by me (1pt min.). @ -None done U/S interpreted by me (1pt. min.). @ -None done What testing was considered but not performed or refused? (CT, X-rays, U/S, labs)? Why? @ -None What meds were considered but not given or refused? Why? @ -None Did you discuss the management of the patient with other professionals (professionals i.e. , PA, HEALTH AID, lab, RT, psych nurse, perinatal social worker, senior java programmer analyst, teacher, chief mechanical officer, rn case manager hospice)? Give summary @ -spoke with Dr. Castillo for admission Was smoking cessation discussed for >3mins.? @ -No Was critical care preformed (if so, how long)? @ -No Were there social determinants of health that impacted care today? How? (Homelessness, low income, unemployed, alcoholism, drug addiction, transportation, low edu. Level, literacy, decrease access to med. care, custodial, rehab)? @ -No Was there de-escalation of care discussed even if they declined (Discuss DNR or withdrawal of care, Hospice)? DNR status @ -No What co-morbidities impacted this encounter? (DM, HTN, Smoking, COPD, CAD, Cancer, CVA, ARF, Chemo, Hep., AIDS, mental health diagnosis, sleep apnea, morbid obesity)? @ -etoh abuse, heart failure, coronary disease Was patient admitted / discharged? Hospital course, mention meds given and route, prescriptions, significant lab abnormalities, going to OR and other pertinent info. @ -Upon arrival patient seen and evaluated in bed 19. Thorough history and physical exam performed. Patient took to continuous pulse ox and cardiac monitoring. He was placed on oxygen for comfort and not for hypoxia. Laboratory studies are conducted. Chest x-ray was performed. Patient does appear to have exacerbation of congestive heart failure at this time. I did recommend admission. Patient given 60 mg IV lasix. I spoke with Dr. Castillo for the admission Undiagnosed new problem with uncertain prognosis? @ -No Drug Therapy requiring intensive monitoring for toxicity (Heparin, Nitro, Insulin, Cardizem)? @ -No Were any procedures done? @ -No Diagnosis/symptom? @ -Acute chest pain, acute exacerbation of CHF, history of coronary disease Acute, or Chronic, or Acute on Chronic? @ -Acute Uncomplicated (without systemic symptoms) or Complicated (systemic symptoms)? @ -Complicated Side effects of treatment? @ -No Exacerbation, Progression, or Severe Exacerbation? @ -yes Poses a threat to life or bodily function? How? (Chest pain, [place], [place], pneumonia, PE, COPD, DKA, ARF, appy, cholecystitis, CVA, Diverticulitis, Homicidal, Suicidal, threat to staff... and all critical care pts) @ -No Disposition Clinical Impression: Acute exacerbation of CHF (congestive heart failure), Chest pain, Elevated troponin Disposition: ADMITTED IP TO THIS [facility] Condition: Stable Is patient prescribed a controlled substance at d/c from ED?: No Time of Disposition: 18:02 Decision to Admit Reason: Admit from EC Decision Date: 10/23/24 Decision Time: 18:02
[2024-10-23] MEDS ORDERED: NALOXONE 0.4 MG/ML 1 ML VIAL IV PRN (18:02)
[2024-10-23] MEDS ORDERED: ALBUTEROL NEBULIZED 2.5 MG/3 ML INHALATION PRN (18:23)
[2024-10-23] MEDS ORDERED: IBUPROFEN 600 MG TAB PO PRN (18:23)
[2024-10-23] MEDS: FUROSEMIDE 10 MG/ML 10 ML VIAL IV STA (18:37)
[2024-10-23] MEDS: ACETAMINOPHEN TAB 325 MG TAB PO PRN (19:47)
--- NOTE | 2024-10-23 19:57 | P.HPIM ---
History of Present Illness H&P Date: 10/23/24 Chief Complaint: chest pain Patient is a 59-year-old male with hypertension, coronary artery disease s/p stent x 2, COPD not on home oxygen, paroxysmal atrial fibrillation and thigh coagulated on Eliquis, presenting with chest pain and dyspnea. Patient states chest pain started around 8 AM this morning while watching TV. He rates it a 7/10, constant, pressure-like pain at the center of his chest that radiates to his left shoulder. Decided to call EMS where they gave him nitroglycerin and states that the pain mostly resolved within a few minutes. During interview patient still states he has 7 out of 10 chest pain. He also endorses a complaint of shortness of breath that has been increasing over the past couple days. Says it is worse on exertion when he was walking around the city the other day to do errands. Admits to PND and orthopnea. States that he had RSV 3-4 weeks ago and has been struggling with a cough with yellow sputum as well. Patient denies any fever, chills, headache, heart palpitations, abdominal pain, nausea, vomiting, diarrhea, urinary symptoms, leg swelling. EKG independently interpreted displaying sinus rhythm, low voltage, rate 93 bpm, QTc 412 MS CXR independently interpreted displaying pulmonary vascular congestion suggestive pulmonary edema, small bilateral pleural effusions, cardiomegaly T97.9 F, RI 93, RR 18, BP 108/72, O2 saturation 98% on 2 L nasal cannula Review of systems: Pertinent positives and negatives as discussed in HPI, a complete review of systems was performed and all other systems are negative. Physical examination: Vital signs reviewed General: non toxic, no distress, appears at stated age, normal weight Derm: no unusual rashes/lesions, warm Head: atraumatic, normocephalic, symmetric Eyes: EOMI, anicteric sclera, pupils equal round reactive to light ENT: Nose and ears atraumatic Mouth: no lip lesion, mucus membranes moist Cardiovascular: S1S2 reg, no murmur, positive dorsalis pedis pulse bilateral, no edema Lungs: Diminished breath sounds bilaterally, rales, no accessory muscle use Abdominal: soft, nontender to palpation, no guarding Ext: muscle strength 5 out of 5 in all 4 extremities grossly, no gross muscle atrophy Neuro: CN II-XI grossly intact, no gross focal neuro deficits Psych: Alert, oriented to person, place, and time Assessment/Plan: Patient is a 59-year-old male with hypertension, coronary artery disease s/p stent, COPD presenting with chest pain and dyspnea. ED documentation reviewed. Plan discussed with the patient. The patient is admitted with an anticipated less than 2 midnight stay for the evaluation of acute chest pain and HFrEF e xacerbation. #. Acute HFrEF exacerbation (EF 30-35%) #. Ischemic cardiomyopathy #. Acute chest pain #. Elevated troponin, type I NSTEMI versus type II #. Hypervolemic hyponatremia secondary to HFrEF exacerbation Troponin 0.090 => 0.093, continue to trend, proBNP 11,000, Sodium 131 Has history of mildly elevated, flat troponins, will continue to monitor Place on heparin drip if troponins continue to trend upward S/p Lasix 60 mg IV once IV Lasix 40 mg every 12 hours, monitor renal function/electrolytes Resume GDMT of lisinopril 2.5 mg PO QD, aldactone 12.5 mg PO QD, Farxiga 10 mg PO QD, Toprol XL 25mg PO BID Daily weights, intake/output strict Cardiac telemetry Echocardiogram ordered Cardiology consulted #. COPD without acute exacerbation Patient currently on room air Patient has cough and sputum production likely from recent RSV infection Supplemental oxygen as needed albuterol inhaler as needed Duoneb prn #. Los-ewvozwq-flftwmath diabetes mellitus Humalog insulin SQ sliding scale Accu-Cheks ACHS Monitor for hypoglycemia #. Microcytic anemia Order iron panel No signs of acute bleeding Chronic: #. Paroxysmal atrial fibrillation: amiodarone 200 mg PO QD, Eliquis 5 mg PO BID #. Nicotine dependence: Nicotine patch q 24 hours #. Anxiety/Depression: Cymbalta 30 mg PO QD #. GERD: Protonix 40 mg PO QD DVT prophylaxis: Eliquis 5 mg PO BID CODE STATUS: Full code Anticipated discharge place: Pending clinical course Fermin Fuentes MD PGY-1 IM Dictation was produced using [employer] dictation software. please excuse any grammatical, word or spelling errors. I have seen and evaluated the patient today. I Discussed the case with the resident and agree with the resident's findings I edited the assessment and plan as necessary as documented in the resident's note. Past Medical History Past Medical History: COPD, GERD/Reflux, GI Bleed, Hypertension, Myocardial Infarction ([place]), Pneumonia, Skin Disorder Additional Past Medical History / Comment(s): ETOH abuse with delirium tremors, lower GI bleed, IBS, chronic iron deficiency anemia, hypomagnesemia, hyperbilirubinemia, anorexia, vertigo, nephrolithiasis-passed stone on his own, chronic low back/cervical pain, DDD, kyphosis, scoliosis, coccyx pressure ulcer pt states is mostly healed. Dry and itchy skin back in high school. 2 heart attacks, one in December (2020) second in February (2020). Last Myocardial Infarction Date:: june 2023 History of Any Multi-Drug Resistant Organisms: None Reported Past Surgical History: Bariatric Surgery, Heart Catheterization With Stent, Hernia Repair, Orthopedic Surgery, Tonsillectomy Additional Past Surgical History / Comment(s): Right inner Forearm-metal plate, gastric bypass, incisional hernia surgery x2, EGDs, colonoscopies. 2 Stents placed in December 2020; bilateral knee surgeries Past Anesthesia/Blood Transfusion Reactions: No Reported Reaction Date of Last Stent Placement:: december 2020 Past Psychological History: Anxiety, Bipolar, Depression, PTSD Smoking Status: Current every day smoker Past Alcohol Use History: Abuse, Daily Past Drug Use History: Marijuana - Past Family History Mother History Unknown: Yes Family Medical History: Hypertension Additional Family Medical History / Comment(s): Lupus. Mother is living. Father History Unknown: Yes Family Medical History: Liver Disease Additional Family Medical History / Comment(s): ETOH abuse. of cirrhosis complications. Medications and Allergies Home Medications Medication Instructions Recorded Confirmed Type Ibuprofen [Motrin] 600 mg PO Q6HR PRN tab 09/11/24 10/23/24 Rx ARIPiprazole IM [Abilify Maintena] 400 mg IM Q28D 09/26/24 10/23/24 History Albuterol Inhaler [Ventolin Hfa 2 puff INHALATION RT-QID PRN 09/26/24 10/23/24 History Inhaler] Amiodarone [Cordarone] 200 mg PO DAILY 09/26/24 10/23/24 History Omeprazole 20 mg PO DAILY 09/26/24 10/23/24 History lisinopriL [Zestril] 2.5 mg PO DAILY 09/26/24 10/23/24 History DULoxetine HCL [Cymbalta] 30 mg PO DAILY 10/23/24 10/23/24 History Folic Acid 1 mg PO DAILY 10/23/24 10/23/24 History Furosemide [Lasix] 40 mg PO BID 10/23/24 10/23/24 History metFORMIN HCL 500 mg PO BID 10/23/24 10/23/24 History Allergies Allergy/AdvReac Type Severity Reaction Status Date / Time Iodinated Contrast Media Allergy Itching-see Verified 10/23/24 18:14 comment fentanyl AdvReac Itching Verified 10/23/24 18:14 Physical Exam Vitals: Vital Signs Temp Pulse Resp BP Pulse Ox 10/23/24 18:35 96 18 120/86 99 10/23/24 15:30 92 18 113/85 100 10/23/24 14:30 92 18 110/80 98 10/23/24 14:00 90 18 107/77 97 10/23/24 13:41 97.7 F 93 18 108/72 98 Intake and Output 10/23/24 10/23/24 10/23/24 06:59 14:59 22:59 Other: Weight 83.915 kg Results CBC & Chem 7: 10/24/24 02:48 10/23/24 14:40 Labs: Abnormal Lab Results - Last 24 Hours (Table) 10/23/24 10/23/24 10/23/24 Range/Units 14:40 14:40 14:40 RBC 3.73 L (4.30-5.90) m/uL Hgb 8.1 L (13.0-17.5) gm/dL Hct 28.8 L (39.0-53.0) % MCV 77.4 L (80.0-100.0) fL MCH 21.8 L (25.0-35.0) pg MCHC 28.2 L (31.0-37.0) g/dL RDW 19.6 H (11.5-15.5) % Sodium 131 L (137-145) mmol/L Creatinine 0.58 L (0.66-1.25) mg/dL Glucose 118 H (74-99) mg/dL Calcium 8.3 L (8.4-10.2) mg/dL Troponin I 0.092 H* (0.000-0.034) ng/mL Total Protein 6.2 L (6.3-8.2) g/dL Albumin 3.3 L (3.5-5.0) g/dL
[2024-10-23] MEDS ORDERED: metFORMIN 500 MG TAB PO SCH (21:00)
[2024-10-23 21:01] LABS: Glucose,Whole Blood 170 mg/dL (70-110)
[2024-10-23] MEDS: APIXABAN 5 MG TAB PO SCH (22:25)
[2024-10-23] MEDS: ATORVASTATIN 40 MG TAB PO SCH (22:26)
[2024-10-23] MEDS: INSULIN LISPRO (HumaLOG) 100 UNIT/ML 10 mL VL SQ SCH (22:26)
[2024-10-24 03:38] LABS: Anisocytosis Slight; Basophils # (A) 0.1 k/uL (0-0.2); Basophils % (A) 1 %; Eosinophils # (A) 0.1 k/uL (0-0.7); Eosinophils % (A) 2 %; HCT 29.2 % (39.0-53.0); HGB 8.1 gm/dL (13.0-17.5); Hypochromasia Marked; Lymphocytes # (A) 1.4 k/uL (1.0-4.8); Lymphocytes % (A) 18 %; MCH 21.8 pg (25.0-35.0); MCHC 27.8 g/dL (31.0-37.0); MCV 78.4 fL (80.0-100.0); Mean Platelet Volume 7.5; Microcytosis Slight; Monocytes # (A) 0.6 k/uL (0-1.0); Monocytes % (A) 7 %; Neutrophils # (A) 5.3 k/uL (1.3-7.7); Neutrophils % (A) 69 %; Platelet Count 428 k/uL (150-450); Poikilocytosis Slight; RBC 3.73 m/uL (4.30-5.90); RDW 19.6 % (11.5-15.5); WBC 7.7 k/uL (3.8-10.6)
[2024-10-24 05:50] LABS: Glucose,Whole Blood 116 mg/dL (70-110)
[2024-10-24] MEDS: PANTOPRAZOLE 40 MG TABLET PO SCH (06:38)
[2024-10-24] MEDS: FUROSEMIDE 10 MG/ML 4 ML VIAL IV SCH (06:38)
[2024-10-24 06:57] LABS: African American GFR (CKD) >90 (>60 ml/min/1.73 sqM); Anion Gap 6 mmol/L; Blood Urea Nitrogen 14 mg/dL (9-20); Calcium 8.7 mg/dL (8.4-10.2); Carbon Dioxide 30 mmol/L (22-30); Chloride 97 mmol/L (98-107); Glucose 100 mg/dL (74-99); Magnesium 1.8 mg/dL (1.6-2.3); Non-African American GFR(CKD) >90 (>60 ml/min/1.73 sqM); Potassium 4.2 mmol/L (3.5-5.1); Sodium 133 mmol/L (137-145)
[2024-10-24 07:36] LABS: Influenza A Not Detected (Not Detectd); Influenza B Not Detected (Not Detectd); RSV Not Detected (Not Detectd)
[2024-10-24] MEDS: DULoxetine HCL 30 MG CAPSULE.DR PO SCH (08:57)
[2024-10-24] MEDS: AMIODARONE 200 MG TAB PO SCH (08:57)
[2024-10-24] MEDS: FOLIC ACID 1 MG TAB PO SCH (08:57)
[2024-10-24] MEDS: DAPAGLIFLOZIN PROPANEDIOL 10 MG TABLET PO SCH (08:57)
[2024-10-24] MEDS: SPIRONOLACTONE 25 MG TAB PO SCH (08:57)
[2024-10-24] MEDS: ASPIRIN 81 MG PO SCH (10:29)
[2024-10-24] MEDS: METOPROLOL TARTRATE 25 MG TAB PO SCH ×2 (10:29→20:26)
[2024-10-24] MEDS: SODIUM FERRIC GLUCONAT-SUCROSE 125 MG in SODIUM CHLORIDE 0.9% 100 ML IVPB ONE (10:29)
--- NOTE | 2024-10-24 10:49 | P.CRDCN ---
History of Present Illness History of present illness: HISTORY OF PRESENT ILLNESS: This is a 59-year-old male with a past medical history significant for coronary artery disease, ischemic cardiomyopathy, congestive heart failure, paroxysmal a trial fibrillation, hypertension, and hyperlipidemia. Patient follows in the office with Dr. Chaudhari. We have been asked to see the patient in consultation for chest pain and congestive heart failure. Patient examined at the bedside. Patient presented to the hospital with a chief complaint of shortness of breath and feeling diaphoretic. He also reports having intermittent chest discomfort. Patient was found to be in acute CHF and was started on IV Lasix. Patients blood pressures have been soft in the 80-90s. Patient denies any dizziness or lightheadedness. It is noted that patient has known history of cardiomyopathy. Patient was previously recommended to undergo ICD implantation. However patient has failed to keep his follow-up appointments in the office and has a history of medication noncompliance. DIAGNOSTICS: - EKG reveals sinus mechanism with no signs of acute ischemia. - Chest xray correlate for CHF with patchy pulmonary edema. Small bilateral pleural effusions. More confluent opacity probably pulmonary edema at the left base. - Laboratory data: WBC 7.7. Hemoglobin 8.1. Platelet count 429. Sodium 133. Potassium 4.2. BUN 14. Creatinine 0.56. proBNP 11,000. Troponin 0.092. 0.093. 0.084. - Current home cardiac medications include lisinopril 2.5 mg daily, Lasix 40 mg twice a day, amiodarone 200 mg daily. - Most recent echocardiogram obtained in January 2024 for revealed ejection fraction 30 to 35%, mild MR - Cardiac catheterization history: October 2023 revealed severely calcified coronary arteries. Patent stent in the proximal LAD and left circumflex. Chron ically occluded proximal RCA and mid to distal LAD. REVIEW OF SYSTEMS: At the time of my exam: CONSTITUTIONAL: Denies fever or chills. HEENT: Denies blurred vision, vision changes, or eye pain. Denies hemoptysis CARDIOVASCULAR: Denies chest pain. Denies orthopnea. Denies PND. Denies palpitations RESPIRATORY: Denies shortness of breath. GASTROINTESTINAL: Denies abdominal pain. Denies nausea or vomiting. HEMATOLOGIC: Denies bleeding disorders. GENITOURINARY: Denies any blood in urine. SKIN: Denies pruitis. Denies rash. PHYSICAL EXAM: VITAL SIGNS: Reviewed. GENERAL: Well-developed in no acute distress. HEENT: Head is normocephalic. Pupils are equal, round. Sclerae anicteric. Mucous membranes of the mouth are moist. Neck supple. No JVD or thyromegaly LUNGS: Respirations even and unlabored. Lungs essentially clear to auscultation bilaterally. HEART: Regular rate and rhythm. S1 and S2 heard. ABDOMEN: Soft. Nondistended. Nontender. EXTREMITIES: Normal range of motion. No clubbing or cyanosis. Peripheral pulses intact. No lower extremity edema NEUROLOGIC: Awake and alert. Oriented x 3. ASSESSMENT: Acute on chronic heart failure with reduced EF Elevated troponin, flat, type II MT secondary to oxygen supply and demand mismatch Chronically elevated troponins Coronary artery disease with previous stenting Known chronically occluded proximal RCA and mid to distal LAD Ischemic cardiomyopathy, 30 to 35% Paroxysmal atrial fibrillation Hypertension Hyperlipidemia History of apical thrombus, per echocardiogram 09/2023 Bipolar disorder Anxiety Depression PTSD Nicotine dependence History of alcohol abuse PLAN: Obtain 2D echo to assess cardiac structure and function Repeat chest x-ray in a.m. Add 1500 cc fluid restriction Decrease IV Lasix to 40 mg daily. Likely transition to oral diuretics tomorrow. Daily weights, accurate intake and output, and monitoring of kidney function Add metoprolol tartrate 25 mg twice a day Per Dr. Valdez, give 1 dose of IV iron. Iron studies are currently pending. Possible oral iron pending results of iron studies. Defer to internal medicine for further management. Further recommendations pending patient course Nurse practitioner note has been reviewed by physician. Signing provider agrees with the documented findings, assessment, and plan of care documented by COMMUNITY RECREATION COORDINATOR as a scribe. Past Medical History Past Medical History: COPD, GERD/Reflux, GI Bleed, Hypertension, Myocardial Infarction ([place]), Pneumonia, Skin Disorder Additional Past Medical History / Comment(s): ETOH abuse with delirium tremors, lower GI bleed, IBS, chronic iron deficiency anemia, hypomagnesemia, hyperbilirubinemia, anorexia, vertigo, nephrolithiasis-passed stone on his own, chronic low back/cervical pain, DDD, kyphosis, scoliosis, coccyx pressure ulcer pt states is mostly healed. Dry and itchy skin back in high school. 2 heart attacks, one in December (2020) second in February (2020). Last Myocardial Infarction Date:: june 2023 History of Any Multi-Drug Resistant Organisms: None Reported Past Surgical History: Bariatric Surgery, Heart Catheterization With Stent, Hernia Repair, Orthopedic Surgery, Tonsillectomy Additional Past Surgical History / Comment(s): Right inner Forearm-metal plate, gastric bypass, incisional hernia surgery x2, EGDs, colonoscopies. 2 Stents placed in December 2020; bilateral knee surgeries Past Anesthesia/Blood Transfusion Reactions: No Reported Reaction Date of Last Stent Placement:: december 2020 Past Psychological History: Anxiety, Bipolar, Depression, PTSD Smoking Status: Current every day smoker Past Alcohol Use History: Abuse, Daily Past Drug Use History: Marijuana - Past Family History Mother History Unknown: Yes Family Medical History: Hypertension Additional Family Medical History / Comment(s): Lupus. Mother is living. Father History Unknown: Yes Family Medical History: Liver Disease Additional Family Medical History / Comment(s): ETOH abuse. of cirrhosis complications. Medications and Allergies Home Medications Medication Instructions Recorded Confirmed Type Ibuprofen [Motrin] 600 mg PO Q6HR PRN tab 09/11/24 10/23/24 Rx ARIPiprazole IM [Abilify Maintena] 400 mg IM Q28D 09/26/24 10/23/24 History Albuterol Inhaler [Ventolin Hfa 2 puff INHALATION RT-QID PRN 09/26/24 10/23/24 History Inhaler] Amiodarone [Cordarone] 200 mg PO DAILY 09/26/24 10/23/24 History Omeprazole 20 mg PO DAILY 09/26/24 10/23/24 History lisinopriL [Zestril] 2.5 mg PO DAILY 09/26/24 10/23/24 History DULoxetine HCL [Cymbalta] 30 mg PO DAILY 10/23/24 10/23/24 History Folic Acid 1 mg PO DAILY 10/23/24 10/23/24 History Furosemide [Lasix] 40 mg PO BID 10/23/24 10/23/24 History metFORMIN HCL 500 mg PO BID 10/23/24 10/23/24 History Allergies Allergy/AdvReac Type Severity Reaction Status Date / Time Iodinated Contrast Media Allergy Itching-see Verified 10/23/24 18:14 comment fentanyl AdvReac Itching Verified 10/23/24 18:14 Physical Exam Vitals: Vital Signs Temp Pulse Pulse Resp BP BP Pulse Ox 10/24/24 04:00 97 14 117/75 94 L 10/24/24 02:00 78 16 10/23/24 23:25 97.0 F L 88 14 111/77 97 10/23/24 22:20 78 16 10/23/24 22:08 97.3 F L 77 16 137/69 97 10/23/24 19:48 92 18 100/74 98 10/23/24 18:35 96 18 120/86 99 10/23/24 15:30 92 18 113/85 100 10/23/24 14:30 92 18 110/80 98 10/23/24 14:00 90 18 107/77 97 10/23/24 13:41 97.7 F 93 18 108/72 98 Intake and Output 10/23/24 10/24/24 10/24/24 22:59 06:59 14:59 Output Total 1250 Balance -1250 Output: Urine 1250 Other: Voiding Method Toilet Toilet # Voids 2 Weight 83.915 kg 89.8 kg Results 10/24/24 02:48 10/24/24 06:13 Cardiac Enzymes 10/23/24 10/23/24 10/23/24 Range/Units 14:40 14:40 20:30 AST 42 (17-59) U/L Troponin I 0.092 H* 0.093 H* (0.000-0.034) ng/mL 10/24/24 Range/Units 00:32 AST (17-59) U/L Troponin I 0.084 H* (0.000-0.034) ng/mL Coagulation 10/23/24 Range/Units 14:40 PT 10.8 (10.0-12.5) sec APTT 25.0 (22.0-30.0) sec CBC 10/23/24 10/24/24 Range/Units 14:40 02:48 WBC 9.3 7.7 (3.8-10.6) k/uL RBC 3.73 L 3.73 L (4.30-5.90) m/uL Hgb 8.1 L 8.1 L (13.0-17.5) gm/dL Hct 28.8 L 29.2 L (39.0-53.0) % Plt Count 393 428 (150-450) k/uL Comprehensive Metabolic Panel 10/23/24 10/24/24 Range/Units 14:40 06:13 Sodium 131 L 133 L (137-145) mmol/L Potassium 4.9 4.2 (3.5-5.1) mmol/L Chloride 100 97 L (98-107) mmol/L Carbon Dioxide 28 30 (22-30) mmol/L BUN 20 14 (9-20) mg/dL Creatinine 0.58 L 0.56 L (0.66-1.25) mg/dL Glucose 118 H 100 H (74-99) mg/dL Calcium 8.3 L 8.7 (8.4-10.2) mg/dL AST 42 (17-59) U/L ALT 19 (4-49) U/L Alkaline Phosphatase 76 (38-126) U/L Total Protein 6.2 L (6.3-8.2) g/dL Albumin 3.3 L (3.5-5.0) g/dL Current Medications Generic Name Dose Route Start Last Admin Trade Name Freq PRN Reason Stop Dose Admin Acetaminophen 650 mg 10/23/24 19:26 10/23/24 19:47 Acetaminophen Tab 325 Mg Tab PO 650 mg Q6HR PRN Administration Fever and/ or Pain Albuterol/Ipratropium 3 ml 10/23/24 20:04 Ipratropium-Albuterol 3 Ml Neb INHALATION RT-QID PRN Shortness Of Breath Or Wheezing Amiodarone HCl 200 mg 10/24/24 09:00 Amiodarone 200 Mg Tab PO DAILY [facility] Apixaban 5 mg 10/23/24 21:00 10/23/24 22:25 Apixaban 5 Mg Tab PO 5 mg BID [facility] Administration Protocol Aspirin 81 mg 10/24/24 09:00 Aspirin 81 Mg PO DAILY [facility] Atorvastatin Calcium 40 mg 10/23/24 21:00 10/23/24 22:26 Atorvastatin 40 Mg Tab PO 40 mg HS [facility] Administration Dapagliflozin 10 mg 10/24/24 09:00 Dapagliflozin Propanediol 10 Mg Tablet PO DAILY [facility] Duloxetine HCl 30 mg 10/24/24 09:00 Duloxetine Hcl 30 Mg Capsule.Dr PO DAILY [facility] Folic Acid 1 mg 10/24/24 09:00 Folic Acid 1 Mg Tab PO DAILY [facility] Furosemide 40 mg 10/24/24 06:00 10/24/24 06:38 Furosemide 10 Mg/Ml 4 Ml Vial IV 40 mg Q12H [facility] Administration Ibuprofen 600 mg 10/23/24 18:23 Ibuprofen 600 Mg Tab PO Q6HR PRN Moderate Pain (Scale 4 to 6) Insulin Human Lispro 0 unit 10/23/24 21:00 10/24/24 06:32 Insulin Lispro (Humalog) 100 Unit/Ml 10 Ml Vl SQ Not Given ACHS [facility] Protocol Lisinopril 2.5 mg 10/24/24 09:00 Lisinopril 2.5 Mg Tab PO DAILY [facility] Naloxone HCl 0.2 mg 10/23/24 18:02 Naloxone 0.4 Mg/Ml 1 Ml Vial IV Q2M PRN Opioid Reversal Pantoprazole Sodium 40 mg 10/24/24 07:30 10/24/24 06:38 Pantoprazole 40 Mg Tablet PO 40 mg [id number] [facility] Administration Spironolactone 12.5 mg 10/24/24 09:00 Spironolactone 25 Mg Tab PO DAILY [facility] Intake and Output 10/23/24 10/24/24 10/24/24 22:59 06:59 14:59 Output Total 1250 Balance -1250 Output: Urine 1250 Other: Voiding Method Toilet Toilet # Voids 2 Weight 83.915 kg 89.8 kg 10/24/24 02:48 10/24/24 06:13
[2024-10-24 11:11] LABS: % Iron Saturation 2.41 (15.00-50.00)
[2024-10-24 11:39] LABS: Glucose,Whole Blood 98 mg/dL (70-110)
--- NOTE | 2024-10-24 12:10 | CA ---
Transthoracic Echo Report Name: Jonathan Parsons Age: 59 Gender: M : 1965 Exam Date: 10/24/2024 07:55 Exam Location: [facility] Ht (in): 68 Wt (lb): 185 Ordering Physician: Fermin Fuentes MD Attending/Referring Phys: Job Coach/Job Developer Nikole Lopez RDCS Procedure CPT: Indications: CHF ex Cardiac Hx: Technical Quality: Technically difficult study Contrast 1: Definity Total Dose (mL): 2 Contrast 2: Total Dose (mL): MEASUREMENTS (Male / Female) Normal Values 2D ECHO LV Diastolic Diameter PLAX 4.7 cm 4.2 - 5.9 / 3.9 - 5.3 cm LV Systolic Diameter PLAX 4.2 cm IVS Diastolic Thickness 1.4 cm 0.6 - 1.0 / 0.6 - 0.9 cm LVPW Diastolic Thickness 1.4 cm 0.6 - 1.0 / 0.6 - 0.9 cm LV Relative Wall Thickness 0.6 RV Internal Dim ED PLAX 3.0 cm LA Systolic Diameter LX 4.7 cm 3.0 - 4.0 / 2.7 - 3.8 cm LV Diastolic Volume MOD BP 284.2 cm??? 67 - 155 / 56 - 104 cm??? LV Systolic Volume MOD BP 230.9 cm??? 22 - 58 / 19 - 49 cm??? LV Ejection Fraction MOD BP 18.7 % >= 55 % LV Cardiac Index MOD BP 2577.3 cm???/min???m??? LV Diastolic Volume MOD 4C 289.3 cm??? LV Systolic Volume MOD 4C 235.3 cm??? LV Ejection Fraction MOD 4C 18.7 % LV Cardiac Index MOD 4C 2610.7 cm???/min???m??? LV Diastolic Length 4C 10.7 cm LV Systolic Length 4C 10.2 cm LV Diastolic Volume MOD 2C 273.0 cm??? LV Systolic Volume MOD 2C 221.1 cm??? LV Ejection Fraction MOD 2C 19.0 % LV Cardiac Index MOD 2C 2509.7 cm???/min???m??? LV Diastolic Length 2C 11.1 cm LV Systolic Length 2C 10.6 cm M-MODE Aortic Root Diameter MM 3.5 cm DOPPLER AV Peak Velocity 143.6 cm/s AV Peak Gradient 8.2 mmHg Mitral E Point Velocity 100.3 cm/s Mitral A Point Velocity 87.6 cm/s Mitral E to A Ratio 1.1 MV Deceleration Time 129.3 ms MV E' Velocity 4.3 cm/s Mitral E to MV E' Ratio 23.4 FINDINGS Left Ventricle Left ventricular ejection fraction is estimated at 20-25 %. Left ventricular cavity size normal. Moderate concentric left ventricular hypertrophy. Severely increased left ventricular diastolic volume. Severely increased left ventricular systolic volume. Severely decreased left ventricular ejection fraction. Right Ventricle Normal right ventricular size. Unable to estimate the right ventricular systolic pressure. Right Atrium Severe right atrial dilatation. Left Atrium Mildly increased left atrial diameter. No left atrial thrombus or mass present. Mitral Valve Structurally normal mitral valve. Mitral annular calcification. Trace mitral regurgitation. Aortic Valve Trileaflet aortic valve. Aortic valve sclerosis. No aortic valve stenosis or regurgitation. Tricuspid Valve Structurally normal tricuspid valve. No tricuspid stenosis, regurgitation or prolapse. Pulmonic Valve Pulmonic valve not well visualized. Pericardium No pericardial effusion. Aorta Normal size aortic root and proximal ascending aorta. CONCLUSIONS Indication for procedure Chest pain acute NC congestive heart failure exacerbation Severe LV dysfunction with severely reduced left ventricular ejection fraction biatrial enlargement Previewed by: Dr. Matias Gibson MD (Electronically Signed) Final Date: 24 October 2024 12:09
--- NOTE | 2024-10-24 14:51 | P.PN ---
Subjective Progress Note Date: 10/24/24 Hospital course: Patient is a very pleasant 59-year-old male with a past medical history of CAD status post stenting x 3, ischemic cardiomyopathy with most recently known EF of 30 to 35%, paroxysmal atrial fibrillation on anticoagulation with Eliquis, hypertension, hyperlipidemia, bipolar disorder, anxiety and depression, PTSD, COPD with continued nicotine dependence, and alcohol abuse with binge drinking behaviors. He presented to the hospital on 10/23/2024 with a chief complaint of chest pain. Upon arrival to our facility, patient underwent evaluation in the emergency department. Vital signs upon arrival show blood pressure 108/72, heart rate 93, respiratory rate 18, temp 97.7 F, and SpO2 of 90% on 2 L. EKG completed showing normal sinus rhythm at 93 bpm. Chest x-ray completed concerning for CHF with patchy pulmonary edema and small bilateral pleural effusions. Labs completed and reviewed. CBC showing microcytic anemia with hemoglobin of 8.1 with baseline hemoglobin around 9. Coagulation profile normal findings. BMP showing hyponatremia with sodium of 131 otherwise normal findings. Blood glucose 118. Magnesium slightly low at 1.7. Liver profile unremarkable. Troponin elevated at 0.092 with proBNP of 11,000. Patient was admitted under our services with consultation to cardiology. Troponins were trended resulting at 0.092, 0.093, and 0.084. Influenza A, influenza B, RSV, and COVID PCR negative. Echocardiogram completed revealing a worsening EF of 20 to 25% with biatrial enlargement. Physical exam: Vital signs reviewed and stable. General: Nontoxic, no distress and appears stated age. Chronically ill- appearing Derm: Skin warm and dry, normal coloration for ethnicity. Head: Atraumatic, normocephalic and symmetric. Eyes: EOM's intact, no lid lag, and anicteric sclera Mouth: no lip lesions, mucus membranes moist Cardiovascular: regular rate and rhythm with normal S1S2, no murmur, positive posterior tibial pulses bilaterally, and cap refill < 2 seconds. Lungs: Respirations even, regular, and unlabored on room air. Lungs CTA bilate rally, no rhonchi, no rales, no wheezing, and no accessory muscle usage. Abdominal: soft, nontender to palpation, no guarding, no appreciable organomegaly Ext: ROM intact. No gross muscle atrophy, no edema, no contractures Neuro: Speech clear, face symmetrical and CN II-XII grossly intact with no noted focal neuro deficits Psych: Alert and oriented to person, place, time, and situation. Appropriate and pleasant affect. Assessment and Plan of Care: Chest pain and exertional shortness of breath Elevated troponins Ischemic cardiomyopathy Coronary artery disease status post stenting Paroxysmal atrial fibrillation Hypertension Hyperlipidemia -Cardiology consulted, discussed plan of care with Dr. Valdez. -Echocardiogram revealing a worsening EF of 20 to 25% with biatrial enlargement. -Telemetry monitoring -Lasix 40 mg IVP daily -Continue cardiac medication regimen with aspirin 81 mg daily, Eliquis 5 mg twice daily, amiodarone 200 mg daily, Farxiga 10 mg daily, lisinopril 2.5 mg daily, metoprolol 25 mg twice daily, and Aldactone 12.5 mg daily. -Continue daily weights with close monitoring of I's and O's. -Continue close monitoring of renal function and electrolytes while undergoing IV diuresis. Acute on chronic iron deficiency anemia -Patient received 1 dose of IV Ferrlecit and to begin ferrous sulfate 325 mg daily beginning tomorrow. COPD with continued nicotine dependence, not in acute exacerbation -Recommend smoking cessation. Patient started on nicotine patch 14 mg daily. -Continue DuoNebs 4 times daily as needed for wheezing/shortness of breath. Anxiety with depression PTSD Alcohol abuse with binge drinking behaviors -Patient denies recent alcohol use. Will monitor for signs/symptoms of withdrawal. -Continue Cymbalta 30 mg daily. Data and imaging reviewed: -Troponins were trended resulting at 0.092, 0.093, and 0.084. Influenza A, influenza B, RSV, and COVID PCR negative. -Echocardiogram completed revealing a worsening EF of 20 to 25% with biatrial enlargement. -Vital signs reviewed. Blood pressure soft this morning at 90/61, heart rate 75, respiratory rate 17, 97.5 F, and SpO2 of 95% on room air. CODE STATUS: Full code DVT prophylaxis: Jamie Discussed with: Patient, RN, and sales development executive Anticipated discharge date: Pending clinical course Anticipated discharge place: Home Patient was seen independently by Nurse Pracitioner. This document was prepared using [employer] dictation software. Please allow for errors in high pressure boiler operator, while rare they do occur. Rony Howell NP rendered care for this patient independently, reviewed the findings and plan as documented in the note above and agree with plan. I did not physically speak with or examine the patient on this date. Objective - Vital Signs Vital signs: Vital Signs Temp 97.0 F L 10/23/24 23:25 Pulse 97 10/24/24 04:00 Resp 14 10/24/24 04:00 BP 117/75 10/24/24 04:00 Pulse Ox 94 L 10/24/24 04:00 FiO2 Intake & Output 10/23/24 10/24/24 10/24/24 18:59 06:59 18:59 Output Total 1250 Balance -1250 Weight 83.915 kg 89.8 kg Output: Urine 1250 Other: Voiding Method Toilet # Voids 2 - Labs CBC & Chem 7: 10/24/24 02:48 10/24/24 06:13 Labs: Abnormal Lab Results - Last 24 Hours (Table) 10/23/24 10/23/24 10/23/24 Range/Units 14:40 14:40 14:40 RBC 3.73 L (4.30-5.90) m/uL Hgb 8.1 L (13.0-17.5) gm/dL Hct 28.8 L (39.0-53.0) % MCV 77.4 L (80.0-100.0) fL MCH 21.8 L (25.0-35.0) pg MCHC 28.2 L (31.0-37.0) g/dL RDW 19.6 H (11.5-15.5) % Sodium 131 L (137-145) mmol/L Chloride (98-107) mmol/L Creatinine 0.58 L (0.66-1.25) mg/dL Glucose 118 H (74-99) mg/dL POC Glucose (mg/dL) (70-110) mg/dL Calcium 8.3 L (8.4-10.2) mg/dL Troponin I 0.092 H* (0.000-0.034) ng/mL Total Protein 6.2 L (6.3-8.2) g/dL Albumin 3.3 L (3.5-5.0) g/dL 10/23/24 10/23/24 10/24/24 Range/Units 20:30 20:59 00:32 RBC (4.30-5.90) m/uL Hgb (13.0-17.5) gm/dL Hct (39.0-53.0) % MCV (80.0-100.0) fL MCH (25.0-35.0) pg MCHC (31.0-37.0) g/dL RDW (11.5-15.5) % Sodium (137-145) mmol/L Chloride (98-107) mmol/L Creatinine (0.66-1.25) mg/dL Glucose (74-99) mg/dL POC Glucose (mg/dL) 170 H (70-110) mg/dL Calcium (8.4-10.2) mg/dL Troponin I 0.093 H* 0.084 H* (0.000-0.034) ng/mL Total Protein (6.3-8.2) g/dL Albumin (3.5-5.0) g/dL 10/24/24 10/24/24 10/24/24 Range/Units 02:48 05:48 06:13 RBC 3.73 L (4.30-5.90) m/uL Hgb 8.1 L (13.0-17.5) gm/dL Hct 29.2 L (39.0-53.0) % MCV 78.4 L (80.0-100.0) fL MCH 21.8 L (25.0-35.0) pg MCHC 27.8 L (31.0-37.0) g/dL RDW 19.6 H (11.5-15.5) % Sodium 133 L (137-145) mmol/L Chloride 97 L (98-107) mmol/L Creatinine 0.56 L (0.66-1.25) mg/dL Glucose 100 H (74-99) mg/dL POC Glucose (mg/dL) 116 H (70-110) mg/dL Calcium (8.4-10.2) mg/dL Troponin I (0.000-0.034) ng/mL Total Protein (6.3-8.2) g/dL Albumin (3.5-5.0) g/dL
[2024-10-24] MEDS: IPRATROPIUM-ALBUTEROL 3 ML NEB INHALATION PRN (15:17)
[2024-10-24] MEDS: NICOTINE 14MG/24HR PATCH TRANSDERM SCH (16:19)
[2024-10-24 16:21] LABS: Glucose,Whole Blood 117 mg/dL (70-110)
[2024-10-24 19:52] LABS: Glucose,Whole Blood 107 mg/dL (70-110)
[2024-10-24] MEDS: IPRATROPIUM-ALBUTEROL 3 ML NEB INHALATION SCH (22:08)
[2024-10-25 06:10] LABS: Glucose,Whole Blood 107 mg/dL (70-110)
[2024-10-25 07:26] LABS: Anisocytosis Slight; HCT 31.9 % (39.0-53.0); HGB 8.5 gm/dL (13.0-17.5); Hypochromasia Marked; MCH 21.3 pg (25.0-35.0); MCHC 26.7 g/dL (31.0-37.0); MCV 79.7 fL (80.0-100.0); Mean Platelet Volume 8.8; Microcytosis Slight; Platelet Count 362 k/uL (150-450); Poikilocytosis Slight; RBC 4.01 m/uL (4.30-5.90); RDW 19.6 % (11.5-15.5); WBC 8.6 k/uL (3.8-10.6)
[2024-10-25 07:31] LABS: African American GFR (CKD) >90 (>60 ml/min/1.73 sqM); Anion Gap 3 mmol/L; Blood Urea Nitrogen 17 mg/dL (9-20); Carbon Dioxide 28 mmol/L (22-30); Chloride 99 mmol/L (98-107); Glucose 95 mg/dL (74-99); Magnesium 1.9 mg/dL (1.6-2.3); Non-African American GFR(CKD) >90 (>60 ml/min/1.73 sqM); Potassium 4.7 mmol/L (3.5-5.1); Sodium 130 mmol/L (137-145)
[2024-10-25] MEDS: FUROSEMIDE 10 MG/ML 4 ML VIAL IV SCH (08:35)
--- NOTE | 2024-10-25 09:00 | XR ---
EXAMINATION TYPE: XR chest 2V DATE OF EXAM: 10/25/2024 7:38 AM COMPARISON: 10/23/2024 CLINICAL INDICATION: Male, 59 years old with history of chf, TECHNIQUE: XR chest 2V view(s) obtained. FINDINGS: The heart size is enlarged. The pulmonary vasculature is upper limits normal. No suspicious focal consolidation. There is some mild scattered increased lung markings which are non specific.. IMPRESSION: 1. Mild improving congestive heart failure. [facility], , 10/25/2024 8:58 AM
[2024-10-25 11:44] LABS: Glucose,Whole Blood 105 mg/dL (70-110)
[2024-10-25] MEDS: FERROUS SULFATE 325 MG TAB PO SCH (11:53)
--- NOTE | 2024-10-25 12:18 | P.PN ---
Subjective Progress Note Date: 10/25/24 Hospital course: Patient is a very pleasant 59-year-old male with a past medical history of CAD status post stenting x 3, ischemic cardiomyopathy with most recently known EF of 30 to 35%, paroxysmal atrial fibrillation on anticoagulation with Eliquis, hypertension, hyperlipidemia, bipolar disorder, anxiety and depression, PTSD, COPD with continued nicotine dependence, and alcohol abuse with binge drinking behaviors. He presented to the hospital on 10/23/2024 with a chief complaint of chest pain. Upon arrival to our facility, patient underwent evaluation in the emergency department. Vital signs upon arrival show blood pressure 108/72, heart rate 93, respiratory rate 18, temp 97.7 F, and SpO2 of 90% on 2 L. EKG completed showing normal sinus rhythm at 93 bpm. Chest x-ray completed concerning for CHF with patchy pulmonary edema and small bilateral pleural effusions. Labs completed and reviewed. CBC showing microcytic anemia with hemoglobin of 8.1 with baseline hemoglobin around 9. Coagulation profile normal findings. BMP showing hyponatremia with sodium of 131 otherwise normal findings. Blood glucose 118. Magnesium slightly low at 1.7. Liver profile unremarkable. Troponin elevated at 0.092 with proBNP of 11,000. Patient was admitted under our services with consultation to cardiology. Troponins were trended resulting at 0.092, 0.093, and 0.084. Influenza A, influenza B, RSV, and COVID PCR negative. Echocardiogram completed revealing a worsening EF of 20 to 25% with biatrial enlargement. Physical exam: Patient seen and fully evaluated at bedside this morning. He is currently free from any complaints including chest pain, palpitations, shortness of breath, cough or congestion, or experiencing any weakness/tingling/numbness in his extremities. Vital signs reviewed and stable. General: Nontoxic, no distress and appears stated age. Chronically ill- appearing Derm: Skin warm and dry, normal coloration for ethnicity. Head: Atraumatic, normocephalic and symmetric. Eyes: EOM's intact, no lid lag, and anicteric sclera Mouth: no lip lesions, mucus membranes moist Cardiovascular: regular rate and rhythm with normal S1S2, no murmur, positive posterior tibial pulses bilaterally, and cap refill < 2 seconds. Lungs: Respirations even, regular, and unlabored on room air. Lungs CTA bilaterally, no rhonchi, no rales, no wheezing, and no accessory muscle usage. Abdominal: soft, nontender to palpation, no guarding, no appreciable organomegaly Ext: ROM intact. No gross muscle atrophy, no edema, no contractures Neuro: Speech clear, face symmetrical and CN II-XII grossly intact with no noted focal neuro deficits Psych: Alert and oriented to person, place, time, and situation. Appropriate and pleasant affect. Assessment and Plan of Care: Chest pain and exertional shortness of breath Elevated troponins Ischemic cardiomyopathy Coronary artery disease status post stenting Paroxysmal atrial fibrillation Hypertension Hyperlipidemia -Cardiology consulted, discussed plan of care with Dr. Valdez. -Echocardiogram revealing a worsening EF of 20 to 25% with biatrial enlargement. -Telemetry monitoring -Lasix 40 mg IVP daily -Continue cardiac medication regimen with aspirin 81 mg daily, Eliquis 5 mg twice daily, amiodarone 200 mg daily, Farxiga 10 mg daily, lisinopril 2.5 mg daily, metoprolol 25 mg twice daily, and Aldactone 12.5 mg daily. -Continue daily weights with close monitoring of I's and O's. -Continue close monitoring of renal function and electrolytes while undergoing IV diuresis. Acute on chronic iron deficiency anemia -Patient received 1 dose of IV Ferrlecit and to begin ferrous sulfate 325 mg daily beginning tomorrow. COPD with continued nicotine dependence, not in acute exacerbation -Recommend smoking cessation. Patient started on nicotine patch 14 mg daily. -Continue DuoNebs 4 times daily as needed for wheezing/shortness of breath. Anxiety with depression PTSD Alcohol abuse with binge drinking behaviors -Patient denies recent alcohol use. Will monitor for signs/symptoms of withdrawal. -Continue Cymbalta 30 mg daily. Data and imaging reviewed: -Completed and reviewed. CBC showing mild hemoglobin of 8.5. BMP showing hyponatremia with sodium of 130. Magnesium 1.9. Renal function unremarkable. Blood glucose 95. -Vital signs reviewed. Blood pressure soft this morning at 96/60, heart rate 82, respiratory rate 17, temp 97.9 F, and SpO2 of 95% on room air. CODE STATUS: Full code DVT prophylaxis: Erynquis Discussed with: Patient, RN, and construction craft laborer Anticipated discharge date: Pending clinical course Anticipated discharge place: Home Patient was seen independently by Nurse Pracitioner. This document was prepared using [employer] dictation software. Please allow for errors in early morning, while rare they do occur. Rony Howell, PROFESSIONAL ARCHITECT rendered care for this patient independently, reviewed the findi ngs and plan as documented in the note above and agree with plan. I did not physically speak with or examine the patient on this date. Objective - Vital Signs Vital signs: Vital Signs Temp 98.5 F 10/25/24 03:59 Pulse 82 10/25/24 03:59 Resp 16 10/25/24 03:59 BP 104/71 10/25/24 03:59 Pulse Ox 96 10/25/24 03:59 FiO2 Intake & Output 10/24/24 10/25/24 10/25/24 18:59 06:59 18:59 Intake Total 1033 260 Output Total 2200 1375 Balance -1167 -1115 Weight 87.6 kg Intake: IV 20 20 Invasive Line 1 20 20 Oral 1013 240 Output: Urine 2200 1375 Other: Voiding Method Toilet Toilet - Labs CBC & Chem 7: 10/25/24 06:46 10/25/24 06:46 Labs: Abnormal Lab Results - Last 24 Hours (Table) 10/24/24 10/24/24 10/25/24 Range/Units 06:13 16:19 06:46 RBC (4.30-5.90) m/uL Hgb (13.0-17.5) gm/dL Hct (39.0-53.0) % MCV (80.0-100.0) fL MCH (25.0-35.0) pg MCHC (31.0-37.0) g/dL RDW (11.5-15.5) % Sodium 130 L (137-145) mmol/L Creatinine 0.61 L (0.66-1.25) mg/dL POC Glucose (mg/dL) 117 H (70-110) mg/dL Iron 12 L (65-175) UG/DL TIBC 497 H (228-460) UG/DL % Saturation 2.41 L (15.00-50.00) Transferrin 355.0 H (204.0-354.0) mg/dL 10/25/24 Range/Units 06:46 RBC 4.01 L (4.30-5.90) m/uL Hgb 8.5 L (13.0-17.5) gm/dL Hct 31.9 L (39.0-53.0) % MCV 79.7 L (80.0-100.0) fL MCH 21.3 L (25.0-35.0) pg MCHC 26.7 L (31.0-37.0) g/dL RDW 19.6 H (11.5-15.5) % Sodium (137-145) mmol/L Creatinine (0.66-1.25) mg/dL POC Glucose (mg/dL) (70-110) mg/dL Iron (65-175) UG/DL TIBC (228-460) UG/DL % Saturation (15.00-50.00) Transferrin (204.0-354.0) mg/dL
[2024-10-25 16:32] LABS: Glucose,Whole Blood 117 mg/dL (70-110)
[2024-10-25 19:53] LABS: Glucose,Whole Blood 106 mg/dL (70-110)
--- NOTE | 2024-10-25 23:34 | P.PN ---
Subjective Progress Note Date: 10/25/24 HISTORY OF PRESENT ILLNESS: This is a 59-year-old male with a past medical history significant for coronary artery disease, ischemic cardiomyopathy, congestive heart failure, paroxysmal atrial fibrillation, hypertension, and hyperlipidemia. Patient follows in the office with Dr. Chaudhari. We have been asked to see the patient in consultation for chest pain and congestive heart failure. Patient examined at the bedside. Patient presented to the hospital with a chief complaint of shortness of breath and feeling diaphoretic. He also reports having intermittent chest discomfort. Patient was found to be in acute CHF and was started on IV Lasix. Patients blood pressures have been soft in the 80-90s. Patient denies any dizziness or lightheadedness. It is noted that patient has known history of cardiomyopathy. Patient was previously recommended to undergo ICD implantation. However patient has failed to keep his follow-up appointments in the office and has a history of medication noncompliance. DIAGNOSTICS: - EKG reveals sinus mechanism with no signs of acute ischemia. - Chest xray correlate for CHF with patchy pulmonary edema. Small bilateral pleural effusions. More confluent opacity probably pulmonary edema at the left base. - Laboratory data: WBC 7.7. Hemoglobin 8.1. Platelet count 429. Sodium 133. Potassium 4.2. BUN 14. Creatinine 0.56. proBNP 11,000. Troponin 0.092. 0.09 3. 0.084. - Current home cardiac medications include lisinopril 2.5 mg daily, Lasix 40 mg twice a day, amiodarone 200 mg daily. - Most recent echocardiogram obtained in January 2024 for revealed ejection fraction 30 to 35%, mild MR - Cardiac catheterization history: October 2023 revealed severely calcified coronary arteries. Patent stent in the proximal LAD and left circumflex. Chronically occluded proximal RCA and mid to distal LAD. Progress note 10/25/2024 Echocardiogram from this admission shows an EF of 20 to 25%. This is slightly reduced from the previously documented EF of 30 to 35%. PHYSICAL EXAM: VITAL SIGNS: Reviewed. GENERAL: Well-developed in no acute distress. HEENT: Head is normocephalic. Pupils are equal, round. Sclerae anicteric. Mucous membranes of the mouth are moist. Neck supple. No JVD or thyromegaly LUNGS: Respirations even and unlabored. Lungs essentially clear to auscultation bilaterally. HEART: Regular rate and rhythm. S1 and S2 heard. ABDOMEN: Soft. Nondistended. Nontender. EXTREMITIES: Normal range of motion. No clubbing or cyanosis. Peripheral pulses intact. No lower extremity edema NEUROLOGIC: Awake and alert. Oriented x 3. ASSESSMENT: Acute on chronic heart failure with reduced EF Elevated troponin, flat, type II IL secondary to oxygen supply and demand mismatch Chronically elevated troponins Coronary artery disease with previous stenting Known chronically occluded proximal RCA and mid to distal LAD Ischemic cardiomyopathy, 30 to 35% Paroxysmal atrial fibrillation Hypertension Hyperlipidemia History of apical thrombus, per echocardiogram 09/2023 Bipolar disorder Anxiety Depression PTSD Nicotine dependence History of alcohol abuse PLAN: Add 1500 cc fluid restriction Continue IV Lasix 40 mg daily today. Transition to p.o. tomorrow Bumex 1 mg daily, continue Aldactone 12.5 g daily, Farxiga 10 mg daily Metoprolol 25 mg twice daily, lisinopril 2.5 mg daily Verquvo 2.5 mg on discharge Not able to add further GDMT because of limiting blood pressure. IV iron tomorrow a.m. Continue p.o. iron as ferritin is low and iron saturation is low TIBC is high Anticipate discharge tomorrow a.m. [facility] evaluation Highly recommend to stop smoking, follow-up outpatient with primary signals intelligence analyst within next 1 week. Recommend referral to advanced [facility] failure center for transplant evaluation and further GDMT Objective - Vital Signs Vital signs: Vital Signs Temp 97.8 F 10/25/24 19:33 Pulse 75 10/25/24 20:49 Resp 18 10/25/24 20:49 BP 97/66 10/25/24 19:33 Pulse Ox 95 10/25/24 19:33 FiO2 Intake & Output 10/25/24 10/25/24 10/26/24 06:59 18:59 06:59 Intake Total 260 256 800 Output Total 1375 2700 Balance -1115 -3494 800 Weight 87.6 kg Intake: IV 20 20 10 Invasive Line 1 20 20 10 Oral 240 236 790 Output: Urine 1375 2700 Other: Voiding Method Toilet Toilet Toilet - Labs CBC & Chem 7: 10/25/24 06:46 10/25/24 06:46 Labs: Abnormal Lab Results - Last 24 Hours (Table) 04/05/25 04/05/25 04/05/25 Range/Units 06:46 06:46 16:30 RBC 4.01 L (4.30-5.90) m/uL Hgb 8.5 L (13.0-17.5) gm/dL Hct 31.9 L (39.0-53.0) % MCV 79.7 L (80.0-100.0) fL MCH 21.3 L (25.0-35.0) pg MCHC 26.7 L (31.0-37.0) g/dL RDW 19.6 H (11.5-15.5) % Sodium 130 L (137-145) mmol/L Creatinine 0.61 L (0.66-1.25) mg/dL POC Glucose (mg/dL) 117 H (70-110) mg/dL
[2024-10-26 05:53] LABS: Glucose,Whole Blood 108 mg/dL (70-110)
[2024-10-26] MEDS: SODIUM FERRIC GLUCONAT-SUCROSE 125 MG in SODIUM CHLORIDE 0.9% 100 ML IVPB ONE (08:30)
[2024-10-26] MEDS: BUMETANIDE 1 MG TAB PO SCH (08:30)
[2024-10-26 09:07] LABS: Anisocytosis Slight; HCT 31.9 % (39.0-53.0); HGB 8.8 gm/dL (13.0-17.5); Hypochromasia Marked; MCH 21.7 pg (25.0-35.0); MCHC 27.7 g/dL (31.0-37.0); MCV 78.5 fL (80.0-100.0); Mean Platelet Volume 6.9; Microcytosis Slight; Platelet Count 446 k/uL (150-450); Poikilocytosis Slight; RBC 4.06 m/uL (4.30-5.90); RDW 19.6 % (11.5-15.5)
[2024-10-26 09:19] LABS: African American GFR (CKD) >90 (>60 ml/min/1.73 sqM); Anion Gap 5 mmol/L; Blood Urea Nitrogen 15 mg/dL (9-20); Carbon Dioxide 30 mmol/L (22-30); Chloride 99 mmol/L (98-107); Glucose 120 mg/dL (74-99); Non-African American GFR(CKD) >90 (>60 ml/min/1.73 sqM); Potassium 4.4 mmol/L (3.5-5.1); Sodium 134 mmol/L (137-145)
--- NOTE | 2024-10-26 11:32 | P.PN ---
Subjective Progress Note Date: 10/26/24 Hospital course: Patient is a very pleasant 59-year-old male with a past medical history of CAD status post stenting x 3, ischemic cardiomyopathy with most recently known EF of 30 to 35%, paroxysmal atrial fibrillation on anticoagulation with Eliquis, hypertension, hyperlipidemia, bipolar disorder, anxiety and depression, PTSD, COPD with continued nicotine dependence, and alcohol abuse with binge drinking behaviors. He presented to the hospital on 10/23/2024 with a chief complaint of chest pain. Upon arrival to our facility, patient underwent evaluation in the emergency department. Vital signs upon arrival show blood pressure 108/72, heart rate 93, respiratory rate 18, temp 97.7 F, and SpO2 of 90% on 2 L. EKG completed showing normal sinus rhythm at 93 bpm. Chest x-ray completed concerning for CHF with patchy pulmonary edema and small bilateral pleural effusions. Labs completed and reviewed. CBC showing microcytic anemia with hemoglobin of 8.1 with baseline hemoglobin around 9. Coagulation profile normal findings. BMP showing hyponatremia with sodium of 131 otherwise normal findings. Blood glucose 118. Magnesium slightly low at 1.7. Liver profile unremarkable. Troponin elevated at 0.092 with proBNP of 11,000. Patient was admitted under our services with consultation to cardiology. Troponins were trended resulting at 0.092, 0.093, and 0.084. Influenza A, influenza B, RSV, and COVID PCR negative. Echocardiogram completed revealing a worsening EF of 20 to 25% with biatrial enlargement. Physical exam: Patient seen and fully evaluated at bedside this morning. He remains free from any complaints including chest pain, palpitations, shortness of breath, cough or congestion, or experiencing any weakness/tingling/numbness in his extremities. Pt was requesting discharge, informed patient that chief writer is recommending placement of Life Vest prior to discharge and pt informed that this cannot be placed until tomorrow morning. Pt in agreement to stay overnight to have Life Vest placed. Vital signs reviewed and stable. General: Nontoxic, no distress and appears stated age. Chronically ill- appearing Derm: Skin warm and dry, normal coloration for ethnicity. Head: Atraumatic, normocephalic and symmetric. Eyes: EOM's intact, no lid lag, and anicteric sclera Mouth: no lip lesions, mucus membranes moist Cardiovascular: regular rate and rhythm with normal S1S2, no murmur, positive posterior tibial pulses bilaterally, and cap refill < 2 seconds. Lungs: Respirations even, regular, and unlabored on room air. Lungs CTA bilaterally, no rhonchi, no rales, no wheezing, and no accessory muscle usage. Abdominal: soft, nontender to palpation, no guarding, no appreciable or ganomegaly Ext: ROM intact. No gross muscle atrophy, no edema, no contractures Neuro: Speech clear, face symmetrical and CN II-XII grossly intact with no noted focal neuro deficits Psych: Alert and oriented to person, place, time, and situation. Appropriate and pleasant affect. Assessment and Plan of Care: Chest pain and exertional shortness of breath Elevated troponins Ischemic cardiomyopathy Coronary artery disease status post stenting Paroxysmal atrial fibrillation Hypertension Hyperlipidemia -Cardiology consulted, discussed plan of care with Dr. Valdez. -Echocardiogram revealing a worsening EF of 20 to 25% with biatrial enlargement. -Telemetry monitoring -IV Lasix was discontinued and patient started on Bumex 1 mg daily. -Continue cardiac medication regimen with aspirin 81 mg daily, Eliquis 5 mg twice daily, amiodarone 200 mg daily, Farxiga 10 mg daily, lisinopril 2.5 mg daily, metoprolol 25 mg twice daily, and Aldactone 12.5 mg daily. -Continue daily weights with close monitoring of I's and O's. -Continue close monitoring of renal function and electrolytes while undergoing IV diuresis. Acute on chronic iron deficiency anemia -Patient received 1 dose of IV Ferrlecit and receiving second dose this morning. Continue ferrous sulfate 325 mg daily. COPD with continued nicotine dependence, not in acute exacerbation -Recommend smoking cessation. Patient started on nicotine patch 14 mg daily. -Continue DuoNebs 4 times daily as needed for wheezing/shortness of breath. Anxiety with depression PTSD Alcohol abuse with binge drinking behaviors -Patient denies recent alcohol use. Will monitor for signs/symptoms of withdrawal. -Continue Cymbalta 30 mg daily. Data and imaging reviewed: -Labs Completed and reviewed. CBC showing microcytic anemia with hemoglobin of 8.8 CV 78.5, CH 21.7, MCHC of 27.7, and RDW of 19.6.. BMP showing mild hyponat remia with sodium of 134. Magnesium 2.0. Renal function unremarkable. Blood glucose 120. -Vital signs reviewed. Blood pressure soft this morning at 91/52, heart rate 73, respiratory rate 17, temp 97.8 F, and SpO2 of 97% on room air. CODE STATUS: Full code DVT prophylaxis: Jamie Discussed with: Patient, RN, and chief writer Anticipated discharge date: Tomorrow morning after Life Vest is placed Anticipated discharge place: Home Patient was seen independently by Nurse Pracitioner. This document was prepared using [employer] dictation software. Please allow for errors in serging machine operator automatic, while rare they do occur. Rony Howell NP rendered care for this patient independently, reviewed the findings and plan as documented in the note above and agree with plan. I did not physically speak with or examine the patient on this date. Objective - Vital Signs Vital signs: Vital Signs Temp 97.8 F 10/26/24 04:20 Pulse 76 10/26/24 04:20 Resp 16 10/26/24 04:20 BP 107/70 10/26/24 04:20 Pulse Ox 91 L 10/26/24 04:20 FiO2 Intake & Output 10/25/24 10/26/24 10/26/24 18:59 06:59 18:59 Intake Total 256 1050 Output Total 2700 600 Balance -2444 450 Weight 84 kg Intake: IV 20 20 Invasive Line 1 20 20 Oral 236 1030 Output: Urine 2700 600 Other: Voiding Method Toilet Toilet - Labs CBC & Chem 7: 10/26/24 08:48 10/26/24 08:48 Labs: Abnormal Lab Results - Last 24 Hours (Table) 10/25/24 Range/Units 16:30 POC Glucose (mg/dL) 117 H (70-110) mg/dL
[2024-10-26 11:48] LABS: Glucose,Whole Blood 112 mg/dL (70-110)
--- NOTE | 2024-10-26 15:44 | P.PN ---
Subjective Progress Note Date: 10/26/24 HISTORY OF PRESENT ILLNESS: This is a 59-year-old male with a past medical history significant for coronary artery disease, ischemic cardiomyopathy, congestive heart failure, paroxysmal atrial fibrillation, hypertension, and hyperlipidemia. Patient follows in the office with Dr. Chaudhari. We have been asked to see the patient in consultation for chest pain and congestive heart failure. Patient examined at the bedside. Patient presented to the hospital with a chief complaint of shortness of breath and feeling diaphoretic. He also reports having intermittent chest discomfort. Patient was found to be in acute CHF and was started on IV Lasix. Patients blood pressures have been soft in the 80-90s. Patient denies any dizziness or lightheadedness. It is noted that patient has known history of cardiomyopathy. Patient was previously recommended to undergo ICD implantation. However patient has failed to keep his follow-up appointments in the office and has a history of medication noncompliance. DIAGNOSTICS: - EKG reveals sinus mechanism with no signs of acute ischemia. - Chest xray correlate for CHF with patchy pulmonary edema. Small bilateral pleural effusions. More confluent opacity probably pulmonary edema at the left base. - Laboratory data: WBC 7.7. Hemoglobin 8.1. Platelet count 429. Sodium 133. Potassium 4.2. BUN 14. Creatinine 0.56. proBNP 11,000. Troponin 0.092. 0.09 3. 0.084. - Current home cardiac medications include lisinopril 2.5 mg daily, Lasix 40 mg twice a day, amiodarone 200 mg daily. - Most recent echocardiogram obtained in January 2024 for revealed ejection fraction 30 to 35%, mild MR - Cardiac catheterization history: October 2023 revealed severely calcified coronary arteries. Patent stent in the proximal LAD and left circumflex. Chronically occluded proximal RCA and mid to distal LAD. Progress note 10/25/2024 Echocardiogram from this admission shows an EF of 20 to 25%. This is slightly reduced from the previously documented EF of 30 to 35%. 10/26/2024 Patient is noticed to be sinus rhythm with heart rates in mid 60s when resting. For this I will reduce the dose of beta-deepa Blood pressure is borderline low therefore not able to add further GDMT Reports feeling less short of breath, does not appear volume overloaded PHYSICAL EXAM: VITAL SIGNS: Reviewed. GENERAL: Well-developed in no acute distress. HEENT: Head is normocephalic. Pupils are equal, round. Sclerae anicteric. Mucous membranes of the mouth are moist. Neck supple. No JVD or thyromegaly LUNGS: Respirations even and unlabored. Lungs essentially clear to auscultation bilaterally. HEART: Regular rate and rhythm. S1 and S2 heard. ABDOMEN: Soft. Nondistended. Nontender. EXTREMITIES: Normal range of motion. No clubbing or cyanosis. Peripheral pulses intact. No lower extremity edema NEUROLOGIC: Awake and alert. Oriented x 3. ASSESSMENT: Acute on chronic heart failure with reduced EF Elevated troponin, flat, type II TN secondary to oxygen supply and demand mismatch Chronically elevated troponins Coronary artery disease with previous stenting Known chronically occluded proximal RCA and mid to distal LAD Ischemic cardiomyopathy, 30 to 35% worsening EF to 20 to 25% Paroxysmal atrial fibrillation Hypertension Hyperlipidemia History of apical thrombus, per echocardiogram 09/2023 Bipolar disorder Anxiety Depression PTSD Nicotine dependence History of alcohol abuse PLAN: Add 1500 cc fluid restriction Continue p.o. Bumex 1 mg daily, continue Aldactone 12.5 g daily, Farxiga 10 mg daily Because of low resting heart rate, discontinue metoprolol and instead start bisoprolol 2.5 mg from tomorrow. Continue amiodarone 200 mg daily lisinopril 2.5 mg daily Verquvo 2.5 mg on discharge Not able to add further GDMT because of limiting blood pressure. Outpatient AICD evaluation I have offered him cardiac transplant referral [address] [place] [address] but at this time patient is not much interested in it. He lacks transportation and feels that will not be able to make frequent trips to [facility] Anticipated discharge today however noticed to be bradycardic therefore we will plan discharging tomorrow monitor telemetry Objective - Vital Signs Vital signs: Vital Signs Temp 97.7 F 10/26/24 11:19 Pulse 63 10/26/24 11:19 Resp 17 10/26/24 11:19 BP 91/59 10/26/24 11:19 Pulse Ox 93 L 10/26/24 11:19 FiO2 Intake & Output 10/25/24 10/26/24 10/26/24 18:59 06:59 18:59 Intake Total 256 1050 138 Output Total 2700 600 900 Balance -2444 450 -762 Weight 84 kg Intake: IV 20 20 20 Invasive Line 1 20 20 20 Oral 236 1030 118 Output: Urine 2700 600 900 Other: Voiding Method Toilet Toilet Toilet - Labs CBC & Chem 7: 10/26/24 08:48 10/26/24 08:48 Labs: Abnormal Lab Results - Last 24 Hours (Table) 10/25/24 10/26/24 10/26/24 Range/Units 16:30 08:48 08:48 RBC 4.06 L (4.30-5.90) m/uL Hgb 8.8 L (13.0-17.5) gm/dL Hct 31.9 L (39.0-53.0) % MCV 78.5 L (80.0-100.0) fL MCH 21.7 L (25.0-35.0) pg MCHC 27.7 L (31.0-37.0) g/dL RDW 19.6 H (11.5-15.5) % Sodium 134 L (137-145) mmol/L Glucose 120 H (74-99) mg/dL POC Glucose (mg/dL) 117 H (70-110) mg/dL 10/26/24 Range/Units 11:45 RBC (4.30-5.90) m/uL Hgb (13.0-17.5) gm/dL Hct (39.0-53.0) % MCV (80.0-100.0) fL MCH (25.0-35.0) pg MCHC (31.0-37.0) g/dL RDW (11.5-15.5) % Sodium (137-145) mmol/L Glucose (74-99) mg/dL POC Glucose (mg/dL) 112 H (70-110) mg/dL
[2024-10-26 16:13] LABS: Glucose,Whole Blood 120 mg/dL (70-110)
[2024-10-26 20:13] LABS: Glucose,Whole Blood 80 mg/dL (70-110)
[2024-10-27 05:51] LABS: Glucose,Whole Blood 105 mg/dL (70-110)
[2024-10-27 06:36] LABS: Anisocytosis Slight; HCT 31.8 % (39.0-53.0); HGB 8.9 gm/dL (13.0-17.5); Hypochromasia Marked; MCH 22.1 pg (25.0-35.0); MCV 78.8 fL (80.0-100.0); Mean Platelet Volume 7.3; Microcytosis Slight; Platelet Count 434 k/uL (150-450); Poikilocytosis Slight; RBC 4.04 m/uL (4.30-5.90); RDW 19.8 % (11.5-15.5); WBC 8.1 k/uL (3.8-10.6)
[2024-10-27 07:00] LABS: African American GFR (CKD) >90 (>60 ml/min/1.73 sqM); Anion Gap 6 mmol/L; Blood Urea Nitrogen 19 mg/dL (9-20); Calcium 8.9 mg/dL (8.4-10.2); Carbon Dioxide 29 mmol/L (22-30); Chloride 97 mmol/L (98-107); Glucose 88 mg/dL (74-99); Non-African American GFR(CKD) >90 (>60 ml/min/1.73 sqM); Potassium 4.4 mmol/L (3.5-5.1); Sodium 132 mmol/L (137-145)
[2024-10-27 08:57] VITALS: BP 85/47; PULSE 79; TEMP 97.6
[2024-10-27] MEDS: BISOPROLOL 5 MG TAB PO SCH (09:03)
--- NOTE | 2024-10-27 09:24 | P.DS ---
Providers Date of admission: 10/24/24 14:43 Expected date of discharge: 10/27/24 Attending physician: Miladys Morfin MD Consults: 10/23/24 18:02 Consult Physician Urgent Consulting Provider: [facility] Consult Reason/Comments: aechf, chest pain Do you want consulting provider notified?: Yes Primary care physician: Stated None Hospital Course: Discharge Diagnosis: Chest pain and exertional shortness of breath. Troponins were trended resulting at 0.092, 0.093, and 0.084. Echocardiogram revealing a worsening EF of 20 to 25% with biatrial enlargement. Cardiology evaluated recommending a LifeVest placed prior to discharge. Patient declined stated he refuses to wear. Cardiology also discussed the possibility of AICD placement and patient states that he will reevaluate on his own terms and make decisions after discharge. Patient adamant regarding being discharged home today. Discussed with cardiology as patient's blood pressures remain on the lower end, baseline for patient is 90 systolic he is currently sitting around 85-89 systolic. Can Reforming Machine Operator recommending co ntinuation of current cardiac medication regimen with aspirin 81 mg daily, Eliquis 5 mg twice daily, amiodarone 200 mg daily, Farxiga 10 mg daily, lisinopril 2.5 mg daily, bisoprolol 2.5 mg daily, and Aldactone 12.5 mg daily. Patient cleared from cardiac perspective encouraging patient that he needs to follow-up for further discussion of possible AICD for his EF of 20 to 25%. Elevated troponins. Troponins were trended resulting at 0.092, 0.093, and 0.084. Ischemic cardiomyopathy. Echocardiogram revealing a worsening EF of 20 to 25% with biatrial enlargement. Coronary artery disease status post stenting. Continue cardiac medication regimen with aspirin 81 mg daily, Eliquis 5 mg twice daily, amiodarone 200 mg daily, Farxiga 10 mg daily, lisinopril 2.5 mg daily, bisoprolol 2.5 mg daily, and Aldactone 12.5 mg daily. Paroxysmal atrial fibrillation Hypertension Hyperlipidemia Acute on chronic iron deficiency anemia. Patient received 2 doses of IV Ferrlecit and to continue ferrous sulfate 325 mg daily. COPD with continued nicotine dependence, not in acute exacerbation Recommend smoking cessation. Patient started on nicotine patch 14 mg daily. Continue Ventolin inhaler 2 puffs 4 times daily as needed for wheezing/shortness of breath. Anxiety with depression. Continue Cymbalta 30 mg daily. PTSD. Continue Cymbalta 30 mg daily. Alcohol abuse with binge drinking behaviors. Recommend cessation of any and all alcohol use. Hospital Course: Patient is a very pleasant 59-year-old male with a past medical history of CAD status post stenting x 3, ischemic cardiomyopathy with most recently known EF of 30 to 35%, paroxysmal atrial fibrillation on anticoagulation with Eliquis, hypertension, hyperlipidemia, bipolar disorder, anxiety and depression, PTSD, COPD with continued nicotine dependence, and alcohol abuse with binge drinking behaviors. He presented to the hospital on 10/23/2024 with a chief complaint of chest pain. Upon arrival to our facility, patient underwent evaluation in the emergency department. Vital signs upon arrival show blood pressure 108/72, heart rate 93, respiratory rate 18, temp 97.7 F, and SpO2 of 90% on 2 L. EKG completed showing normal sinus rhythm at 93 bpm. Chest x-ray completed concerning for CHF with patchy pulmonary edema and small bilateral pleural effusions. Labs completed and reviewed. CBC showing microcytic anemia with hemoglobin of 8.1 with baseline hemoglobin around 9. Coagulation profile normal findings. BMP showing hyponatremia with sodium of 131 otherwise normal findings. Blood glucose 118. Magnesium slightly low at 1.7. Liver profile unremarkable. Troponin elevated at 0.092 with proBNP of 11,000. Patient was admitted under our services with consultation to cardiology. Troponins were trended resulting at 0.092, 0.093, and 0.084. Influenza A, influenza B, RSV, and COVID PCR negative. Echocardiogram completed revealing a worsening EF of 20 to 25% with biatrial enlargement. Cardiology evaluated recommending a LifeVest placed prior to discharge. Patient declined stated he refuses to wear. Cardiology also discussed the possibility of AICD placement and patient states that he will reevaluate on his own terms and make decisions after discharge. Patient adamant regarding being discharged home today. Discussed with cardiology as patient's blood pressures remain on the lower end, baseline for patient is 90 systolic he is currently sitting around 85-89 systolic. Can Reforming Machine Operator recommending continuation of current cardiac medication regimen with aspirin 81 mg daily, Eliquis 5 mg twice daily, amiodarone 200 mg daily, Farxiga 10 mg daily, lisinopril 2.5 mg daily, bisoprolol 2.5 mg daily, and Aldactone 12.5 mg daily. Patient cleared from cardiac perspective encouraging patient that he needs to follow-up for further discussion of possible AICD for his EF of 20 to 25%. Patient again encouraged to accept LifeVest and adamantly declined. Patient reports he is at his baseline and denies having any chest pain or shortness of breath. He was encouraged to follow-up outpatient with PCP and mine analyst as recommended. Patient also encouraged to stop smoking and avoid any and all alcohol use. Physical exam: Vital signs reviewed and stable. General: Nontoxic, no distress and appears stated age. Chronically ill- appearing Derm: Skin warm and dry, normal coloration for ethnicity. Head: Atraumatic, normocephalic and symmetric. Eyes: EOM's intact, no lid lag, and anicteric sclera Mouth: no lip lesions, mucus membranes moist Cardiovascular: regular rate and rhythm with normal S1S2, no murmur, positive posterior tibial pulses bilaterally, and cap refill < 2 seconds. Lungs: Respirations even, regular, and unlabored on room air. Lungs CTA bilaterally, no rhonchi, no rales, no wheezing, and no accessory muscle usage. Abdominal: soft, nontender to palpation, no guarding, no appreciable organomegaly Ext: ROM intact. No gross muscle atrophy, no edema, no contractures Neuro: Speech clear, face symmetrical and CN II-XII grossly intact with no noted focal neuro deficits Psych: Alert and oriented to person, place, time, and situation. Appropriate and pleasant affect. A total of 38 minutes of time were spent preparing this complex discharge summary. Pt was discharged on 10/27/24 at 9:23 AM. Patient was seen independently by Nurse Practitioner. This document was prepared using [id number] dictation software. Please allow for errors in director of testing while rare they do occur. Rony Howell NP rendered care for this patient independently, reviewed the findings and plan as documented in the note above. I did not physically speak with or examine the patient on this date. Patient Condition at Discharge: Stable Plan - Discharge Summary Discharge Rx Participant: No New Discharge Prescriptions: New Spironolactone [Aldactone] 12.5 mg PO DAILY 30 Days #15 tab Bumetanide [BUMEX] 1 mg PO DAILY 30 Days #30 tab Apixaban [Eliquis] 5 mg PO BID 30 Days #30 tab Dapagliflozin Propanediol [Farxiga] 10 mg PO DAILY 30 Days #30 tab Nicotine 14Mg/24Hr Patch [Habitrol] 1 patch TRANSDERM DAILY 30 Days #30 patch Atorvastatin [Lipitor] 40 mg PO HS 30 Days #30 tab Bisoprolol [Zebeta] 2.5 mg PO DAILY 30 Days #15 tab Vericiguat [Verquvo] 2.5 mg PO DAILY 90 Days #90 tablet Ferrous Sulfate [Iron (65 MG Elemental)] 325 mg PO W/LUNCH 30 Days #30 tab Continue Omeprazole 20 mg PO DAILY DULoxetine HCL [Cymbalta] 30 mg PO DAILY metFORMIN HCL 500 mg PO BID lisinopriL [Zestril] 2.5 mg PO DAILY Amiodarone [Cordarone] 200 mg PO DAILY Albuterol Inhaler [Ventolin Hfa Inhaler] 2 puff INHALATION RT-QID PRN PRN Reason: Shortness Of Breath ARIPiprazole IM [Abilify Maintena] 400 mg IM Q28D Folic Acid 1 mg PO DAILY Discontinued Ibuprofen [Motrin] 600 mg PO Q6HR PRN tab PRN Reason: Moderate Pain (Scale 4 To 6) Furosemide [Lasix] 40 mg PO BID Discharge Medication List ARIPiprazole IM [Abilify Maintena] 400 mg IM Q28D 09/26/24 [History] Albuterol Inhaler [Ventolin Hfa Inhaler] 2 puff INHALATION RT-QID PRN 09/26/24 [History] Amiodarone [Cordarone] 200 mg PO DAILY 09/26/24 [History] Omeprazole 20 mg PO DAILY 09/26/24 [History] lisinopriL [Zestril] 2.5 mg PO DAILY 09/26/24 [History] DULoxetine HCL [Cymbalta] 30 mg PO DAILY 10/23/24 [History] Folic Acid 1 mg PO DAILY 10/23/24 [History] metFORMIN HCL 500 mg PO BID 10/23/24 [History] Vericiguat [Verquvo] 2.5 mg PO DAILY 90 Days #90 tablet 10/25/24 [Rx] Apixaban [Eliquis] 5 mg PO BID 30 Days #30 tab 10/27/24 [Rx] Atorvastatin [Lipitor] 40 mg PO HS 30 Days #30 tab 10/27/24 [Rx] Bisoprolol [Zebeta] 2.5 mg PO DAILY 30 Days #15 tab 10/27/24 [Rx] Bumetanide [BUMEX] 1 mg PO DAILY 30 Days #30 tab 10/27/24 [Rx] Dapagliflozin Propanediol [Farxiga] 10 mg PO DAILY 30 Days #30 tab 10/27/24 [Rx] Ferrous Sulfate [Iron (65 MG Elemental)] 325 mg PO W/LUNCH 30 Days #30 tab 10/27/24 [Rx] Nicotine 14Mg/24Hr Patch [Habitrol] 1 patch TRANSDERM DAILY 30 Days #30 patch 10/27/24 [Rx] Spironolactone [Aldactone] 12.5 mg PO DAILY 30 Days #15 tab 10/27/24 [Rx] Follow up Appointment(s)/Referral(s): [facility] [NON-STAFF] - 1-2 Days (Please call and schedule appointment.) Jaun Chaudhari MD [STAFF PHYSICIAN] - 11/10/24 9:30 am (This is replacing November appointment.) Patient Instructions/Handouts: Heart Failure (DC), Hypertrophic Cardiomyopathy (DC) Activity/Diet/Wound Care/Special Instructions: Activity: As tolerated. Take breaks as needed. Diet: Heart healthy and carb consistent diet. Avoid salts, or foods with hidden salts such as canned or boxed foods and frozen dinners. Extra salt makes your heart work harder and traps the fluid in your body for longer. Special Instructions: Take all of your medications as directed and remember to keep all of your doctor's appointments and follow-up as needed. Your blood pressures are at baseline on the lower side. It is important to monitor these blood pressures closely at home twice daily and document these findings and a daily log to bring with you to your follow-up appointment with your PCP and mine analyst. Additional changes may be needed to be made to your cardiac medication regimen based upon these results. Also secondary to your lo wer blood pressures, it is important to change positions slowly from lying to sitting, sitting before standing and standing before walking to allow your body time to adjust to the changes in your pressures prior to ambulating or moving onto the next position. If it anytime you get dizzy or lightheaded please return to the previous position for a few minutes prior to moving again. Patient was initially to have LifeVest placed prior to discharge but he is refusing. Patient states he will follow-up with his mine analyst, Dr. Chaudhari and javier possibility of AICD. Thank you for allowing us to participate in your care, it was truly a pleasure having you for our patient!!! Discharge Disposition: HOME SELF-CARE
[2024-10-27 09:37] VITALS: RESP 16
--- NOTE | 2024-10-27 11:16 | P.PN ---
Subjective Progress Note Date: 10/27/24 HISTORY OF PRESENT ILLNESS: This is a 59-year-old male with a past medical history significant for coronary artery disease, ischemic cardiomyopathy, congestive heart failure, paroxysmal atrial fibrillation, hypertension, and hyperlipidemia. Patient follows in the office with Dr. Chaudhari. We have been asked to see the patient in consultation for chest pain and congestive heart failure. Patient examined at the bedside. Patient presented to the hospital with a chief complaint of shortness of breath and feeling diaphoretic. He also reports having intermittent chest discomfort. Patient was found to be in acute CHF and was started on IV Lasix. Patients blood pressures have been soft in the 80-90s. Patient denies any dizziness or lightheadedness. It is noted that patient has known history of cardiomyopathy. Patient was previously recommended to undergo ICD implantation. However patient has failed to keep his follow-up appointments in the office and has a history of medication noncompliance. DIAGNOSTICS: - EKG reveals sinus mechanism with no signs of acute ischemia. - Chest xray correlate for CHF with patchy pulmonary edema. Small bilateral pleural effusions. More confluent opacity probably pulmonary edema at the left base. - Laboratory data: WBC 7.7. Hemoglobin 8.1. Platelet count 429. Sodium 133. Potassium 4.2. BUN 14. Creatinine 0.56. proBNP 11,000. Troponin 0.092. 0.09 3. 0.084. - Current home cardiac medications include lisinopril 2.5 mg daily, Lasix 40 mg twice a day, amiodarone 200 mg daily. - Most recent echocardiogram obtained in January 2024 for revealed ejection fraction 30 to 35%, mild MR - Cardiac catheterization history: October 2023 revealed severely calcified coronary arteries. Patent stent in the proximal LAD and left circumflex. Chronically occluded proximal RCA and mid to distal LAD. Progress note 10/25/2024 Echocardiogram from this admission shows an EF of 20 to 25%. This is slightly reduced from the previously documented EF of 30 to 35%. 10/26/2024 Patient is noticed to be sinus rhythm with heart rates in mid 60s when resting. For this I will reduce the dose of beta-deepa Blood pressure is borderline low therefore not able to add further GDMT Reports feeling less short of breath, does not appear volume overloaded 10/27 Patient seen and examined. He denies having any chest pain or chest pressure, no shortness of breath no palpitations. His blood pressure will was low and bisoprolol and lisinopril were held this morning. Blood pressures 89/55, pulse ox 100% on room air, pulse running in the 70s. Repeat blood work reveals hemoglobin 8.9, creatinine 0.73, potassium 4.4. Patient has declined LifeVest. PHYSICAL EXAM: VITAL SIGNS: Reviewed. GENERAL: Well-developed in no acute distress. HEENT: Head is normocephalic. Pupils are equal, round. Sclerae anicteric. Neck supple. No JVD or thyromegaly LUNGS: Respirations even and unlabored. Lungs essentially clear to auscultation bilaterally. HEART: Regular rate and rhythm. S1 and S2 heard. ABDOMEN: Soft. Nondistended. Nontender. EXTREMITIES: No clubbing or cyanosis. Peripheral pulses intact. No lower extremity edema NEUROLOGIC: Awake and alert. Oriented x 3. ASSESSMENT: Acute on chronic heart failure with reduced EF Elevated troponin, flat, type II [place] secondary to oxygen supply and demand mismatch Chronically elevated troponins Coronary artery disease with previous stenting Known chronically occluded proximal RCA and mid to distal LAD Ischemic cardiomyopathy, 30 to 35% worsening EF to 20 to 25% Paroxysmal atrial fibrillation Hypertension Hyperlipidemia History of apical thrombus, per echocardiogram 09/2023 Bipolar disorder Anxiety Depression PTSD Nicotine dependence History of alcohol abuse Noncompliance PLAN: Continue p.o. Bumex 1 mg daily, continue Aldactone 12.5 g daily, Farxiga 10 mg daily Because of low resting heart rate, discontinue metoprolol and instead start bisoprolol 2.5 mg and continue amiodarone 200 mg daily lisinopril 2.5 mg daily Verquvo 2.5 mg on discharge Not able to add further GDMT because of limiting blood pressure. Patient is adamant that he wants to go home today because his cat is home alone. Recommendation is for patient to stay overnight but he would like to go home today. Patient will follow-up in the office with Dr. Chaudhari in 2 weeks. Anticipated discharge today however noticed to be bradycardic therefore we will plan discharging tomorrow monitor telemetry Objective - Vital Signs Vital signs: Vital Signs Temp 97.6 F 10/27/24 08:00 Pulse 76 10/27/24 08:50 Resp 17 10/27/24 03:29 BP 85/47 10/27/24 08:00 Pulse Ox 100 10/27/24 08:00 FiO2 Intake & Output 10/26/24 10/27/24 10/27/24 18:59 06:59 18:59 Intake Total 374 560 120 Output Total 1500 Balance -1126 560 120 Weight 82.3 kg Intake: IV 20 20 Invasive Line 1 20 20 Oral 354 540 120 Output: Urine 1500 Other: Voiding Method Toilet Toilet - Labs CBC & Chem 7: 10/27/24 05:44 10/27/24 05:44 Labs: Abnormal Lab Results - Last 24 Hours (Table) 10/26/24 10/26/24 10/26/24 Range/Units 08:48 08:48 11:45 RBC 4.06 L (4.30-5.90) m/uL Hgb 8.8 L (13.0-17.5) gm/dL Hct 31.9 L (39.0-53.0) % MCV 78.5 L (80.0-100.0) fL MCH 21.7 L (25.0-35.0) pg MCHC 27.7 L (31.0-37.0) g/dL RDW 19.6 H (11.5-15.5) % Sodium 134 L (137-145) mmol/L Chloride (98-107) mmol/L Glucose 120 H (74-99) mg/dL POC Glucose (mg/dL) 112 H (70-110) mg/dL 10/26/24 10/27/24 10/27/24 Range/Units 16:11 05:44 05:44 RBC 4.04 L (4.30-5.90) m/uL Hgb 8.9 L (13.0-17.5) gm/dL Hct 31.8 L (39.0-53.0) % MCV 78.8 L (80.0-100.0) fL MCH 22.1 L (25.0-35.0) pg MCHC 28.0 L (31.0-37.0) g/dL RDW 19.8 H (11.5-15.5) % Sodium 132 L (137-145) mmol/L Chloride 97 L (98-107) mmol/L Glucose (74-99) mg/dL POC Glucose (mg/dL) 120 H (70-110) mg/dL
--- NOTE | 2024-10-27 14:15 | CDI ---
Date: 10/27/2024 From: Fariba [email or web address] Email: [email or web address] Admit Date: 10/24/2024 02:43:00 PM Patient Name: Jonathan Parsons Visit Number: [id number] Discharge Date: 10/27/2024 11:14:00 AM ATTENTION: The Clinical Documentation Specialists (CDI) and [facility] Coding Staff appreciate your assistance in clarifying documentation. Please respond to the clarification below the line at the bottom and electronically sign. The CDI & [facility] Coding staff will review the response and follow-up if needed. Please note: Queries are made part of the Legal Health Record. If you have any questions, please contact the author of this message via ITS. Dr. Geoffrey Valdez, Type II ND is documented in the Cardiology Consult Note on 10/24/2024 - which may lack sufficient clinical evidence/support in the medical record. Additional clarification is requested. Patient history/risk factors: 59-year-old male presented to [facility] ED for evaluation due to intermittent chest pain and shortness of breath. PMH: Hypertension, chronic systolic heart failure, coronary artery disease, chronic obstructive pulmonary disease, type 2 diabetes mellitus, nicotine dependence, GERD, paroxysmal atrial fibrillation, anxiety/depression, ischemic cardiomyopathy, hyperlipidemia, alcohol abuse Clinical indicators: Documentation Location: Electronic Medical Record Cardiology Consult Note (10/24/2024): o EKG reveals sinus mechanism with no signs of acute ischemia o Elevated troponin, flat, type II ND secondary to oxygen supply and demand mismatch o Chronically elevated troponins o Acute on chronic heart failure with reduced EF o Known chronically occluded proximal RCA and laq-oh-ygmlod LAD o Coronary artery disease with previous stenting o Ischemic cardiomyopathy Troponin I Trend: (10/23/2024) 0.092 --> 0.093 --> --> (10/24/2024) 0.084 BNP (10/23/2024): 11,000 EKG (10/23/2024): Ventricular rate: 93 bpm. Sinus rhythm. Possible anterior myocardial infarction, of indeterminate age. Abnormal ECG. Echocardiogram (10/23/2024): Left ventricular ejection fraction is estimated at 20-25%. Moderate concentric left ventricular hypertrophy. Every increased left ventricular diastolic volume. Severely increased left ventricular systolic volume. Severely decreased left ventricular ejection fraction. Severe right atrial dilatation. Mildly increased left atrial diameter. No left atrial thrombus or mass present. Trace mitral regurgitation. Trileaflet aortic valve. Treatment: Cardiology Consultation Telemetry Monitoring Troponin Trend x 3 Aspirin 81mg Oral Daily After work up and study, please which diagnosis is most appropriate? [ ] Type II ND ruled out. Elevated troponin due to chronic non-ischemic myocardial injury [ ] Type II ND ruled out. Elevated troponin due to acute non-ischemic myocardial injury [ X ] Type II ND secondary to acute on chronic systolic heart failure is a valid diagnosis as evidenced by the following: Acute CHF exacerbation [ ] Type II ND secondary to (please further specify underlying etiology) is a valid diagnosis as evidenced by the following: [ ] Other, please specify [ ] Unable to determine Reference: [employer] Fourth [place] Definition of Myoca rdial Infraction Type II ND is indicated when an acute myocardial injury in the setting of an abnormal troponin with a rise and fall and clinical indicators suggestive of an imbalance between myocardial oxygen supply demand with acute myocardial ischemia unrelated to coronary thrombosis as evidenced by one of the following: Symptoms of myocardial ischemia New ischemic ECG changes Development of pathological Q waves Imaging evidence of new loss of viable myocardium or new regional wall motion abnormality in a pattern consistent with an ischemic etiology MTDD
== END 2024-10-27 11:14 | disposition home or self-care (01) | DRG 280 ==
LOC: EC 13:38 → 3SCARD 18:16 → OBSVTOIN 10-24 14:43
PROVIDERS: ADMIT Family Medicine; ATTEND Family Medicine
DX: I11.0 Hypertensive heart disease with heart failure (principal); I50.23 Acute on chronic systolic (congestive) heart failure; I21.A1 Myocardial infarction type 2; E87.1 Hypo-osmolality and hyponatremia; Z79.01 Long term (current) use of anticoagulants; D50.9 Iron deficiency anemia, unspecified; E78.5 Hyperlipidemia, unspecified; F17.200 Nicotine dependence, unspecified, uncomplicated; F31.9 Bipolar disorder, unspecified; J44.9 Chronic obstructive pulmonary disease, unspecified; I48.0 Paroxysmal atrial fibrillation; I25.82 Chronic total occlusion of coronary artery; I25.10 Atherosclerotic heart disease of native coronary artery without angina pectoris; F41.9 Anxiety disorder, unspecified; K21.9 Gastro-esophageal reflux disease without esophagitis; F43.10 Post-traumatic stress disorder, unspecified; I25.2 Old myocardial infarction; G89.29 Other chronic pain; M41.9 Scoliosis, unspecified; Z79.82 Long term (current) use of aspirin; Z79.84 Long term (current) use of oral hypoglycemic drugs; Z79.899 Other long term (current) drug therapy; Z91.199 Patient's noncompliance with other medical treatment and regimen due to unspecified reason; Z95.5 Presence of coronary angioplasty implant and graft; Z98.84 Bariatric surgery status
CPT/HCPCS: 36415; 71046; 80048; 80053; 82728; 83540; 83550; 83735; 83880; 84466; 84484; 85025; 85027; 85610; 85730; 87636; 93005; 93306; 94640; 96374; 99285

== ENCOUNTER 2024-10-31 11:23 | Emergency (ER) | payer MEDICARE ==
[2024-10-31 11:34] VITALS: BP 98/62; PULSE 78; RESP 18; TEMP 98.7
--- NOTE | 2024-10-31 12:06 | ED ---
General Adult HPI - General Chief complaint: Upper Respiratory Infection Stated complaint: SOB Time Seen by Provider: 10/31/24 12:06 Source: patient, EMS, RN notes reviewed, old records reviewed Mode of arrival: EMS Limitations: no limitations - History of Present Illness Initial comments: 59-year-old male with a past medical history significant of diabetes mellitus, COPD, hypertension and myocardial infarction presenting to the ER via EMS for evaluation of shortness of breath. Patient states 4 to 5 hours ago he was sitting in his recliner watching TV when he started to feel short of breath with a pressure sensation to his left side of his chest. Chest pain does radiate to his left shoulder. He denies any nausea, vomiting, dizziness, lightheadedness or diaphoresis. Patient states he was recently admitted for similar complaint. He did not typically wear oxygen at home. Upon evaluation, patient requesting pain medication. Patient adamantly denies alcohol use or drug use. - Related Data Home Medications Medication Instructions Recorded Confirmed ARIPiprazole IM [Abilify Maintena] 400 mg IM Q28D 09/26/24 10/23/24 Albuterol Inhaler [Ventolin Hfa 2 puff INHALATION RT-QID PRN 09/26/24 10/23/24 Inhaler] Amiodarone [Cordarone] 200 mg PO DAILY 09/26/24 10/23/24 Omeprazole 20 mg PO DAILY 09/26/24 10/23/24 lisinopriL [Zestril] 2.5 mg PO DAILY 09/26/24 10/23/24 DULoxetine HCL [Cymbalta] 30 mg PO DAILY 10/23/24 10/23/24 Folic Acid 1 mg PO DAILY 10/23/24 10/23/24 metFORMIN HCL 500 mg PO BID 10/23/24 10/23/24 Previous Rx's Medication Instructions Recorded Vericiguat [Verquvo] 2.5 mg PO DAILY 90 Days #90 tablet 10/25/24 Apixaban [Eliquis] 5 mg PO BID 30 Days #30 tab 10/27/24 Atorvastatin [Lipitor] 40 mg PO HS 30 Days #30 tab 10/27/24 Bisoprolol [Zebeta] 2.5 mg PO DAILY 30 Days #15 tab 10/27/24 Bumetanide [BUMEX] 1 mg PO DAILY 30 Days #30 tab 10/27/24 Dapagliflozin Propanediol [Farxiga] 10 mg PO DAILY 30 Days #30 tab 10/27/24 Ferrous Sulfate [Iron (65 MG 325 mg PO W/LUNCH 30 Days #30 tab 10/27/24 Elemental)] Nicotine 14Mg/24Hr Patch [Habitrol] 1 patch TRANSDERM DAILY 30 Days 10/27/24 #30 patch Spironolactone [Aldactone] 12.5 mg PO DAILY 30 Days #15 tab 10/27/24 Allergies Allergy/AdvReac Type Severity Reaction Status Date / Time Iodinated Contrast Media Allergy Itching-see Verified 10/31/24 23:04 comment fentanyl AdvReac Itching Verified 10/31/24 23:04 Review of Systems ROS Statement: Those systems with pertinent positive or pertinent negative responses have been documented in the HPI. ROS Other: All systems not noted in ROS Statement are negative. Past Medical History Past Medical History: COPD, GERD/Reflux, GI Bleed, Hypertension, Myocardial Infarction ([place]), Pneumonia, Skin Disorder Additional Past Medical History / Comment(s): ETOH abuse with delirium tremors, lower GI bleed, IBS, chronic iron deficiency anemia, hypomagnesemia, hyperbilirubinemia, anorexia, vertigo, nephrolithiasis-passed stone on his own, chronic low back/cervical pain, DDD, kyphosis, scoliosis, coccyx pressure ulcer pt states is mostly healed. Dry and itchy skin back in high school. 2 heart attacks, one in December (2020) second in February (2020). Last Myocardial Infarction Date:: june 2023 History of Any Multi-Drug Resistant Organisms: None Reported Past Surgical History: Bariatric Surgery, Heart Catheterization With Stent, Hernia Repair, Orthopedic Surgery, Tonsillectomy Additional Past Surgical History / Comment(s): Right inner Forearm-metal plate, gastric bypass, incisional hernia surgery x2, EGDs, colonoscopies. 2 Stents placed in December 2020; bilateral knee surgeries Past Anesthesia/Blood Transfusion Reactions: No Reported Reaction Date of Last Stent Placement:: december 2020 Past Psychological History: Anxiety, Bipolar, Depression, PTSD Smoking Status: Current every day smoker Past Alcohol Use History: Abuse, Daily Past Drug Use History: Marijuana - Past Family History Mother History Unknown: Yes Family Medical History: Hypertension Additional Family Medical History / Comment(s): Lupus. Mother is living. Father History Unknown: Yes Family Medical History: Liver Disease Additional Family Medical History / Comment(s): ETOH abuse. of cirrhosis complications. General Exam Limitations: no limitations General appearance: alert, in no apparent distress Respiratory exam: Present: wheezes (mild throughout all lung izquierdo) Cardiovascular Exam: Present: regular rate, normal rhythm, normal heart sounds. Absent: systolic murmur, diastolic murmur, rubs, gallop, clicks GI/Abdominal exam: Present: soft, normal bowel sounds. Absent: distended, tenderness, guarding, rebound, rigid Extremities exam: Present: normal inspection, full ROM, normal capillary refill. Absent: tenderness, pedal edema, joint swelling, calf tenderness Neurological exam: Present: alert, oriented X3, CN II-XII intact Skin exam: Present: warm, dry, intact, normal color. Absent: rash Course Vital Signs 10/31/24 11:25 Temperature 98.7 F Pulse Rate 78 Respiratory 18 Rate Blood Pressure 98/62 O2 Sat by Pulse 98 Oximetry - Reevaluation(s) Reevaluation #1: 10/31/24 12:40 Patient seen walking to the exiting of emergency department. Per FORENSIC IDENTIFICATION SPECIALIST, patient would like to "check himself out" EKG Findings - EKG Comments: EKG Findings:: EKG taken at 11: 44 showing a sinus rhythm. No ST segment elevations or depressions. Interventricular conduction delay. Ventricular rate 77, LA interval 186, QRS duration 118, QT/QTc 415/446. Medical Decision Making - Medical Decision Making Was pt. sent in by a medical professional or institution (, PA, GAMEROOM TECHNICIAN, urgent care, hospital, or [place] health care facility...) When possible be specific @ -No Did you speak to anyone other than the patient for history (EMS, parent, family, police, friend...)? What history was obtained from this source @ -No Did you review nursing and triage notes (agree or disagree)? Why? @ -I reviewed and agree with nursing and triage notes Were old charts reviewed (outside hosp., previous admission, EMS record, old EKG, old radiological studies, urgent care reports/EKG's, [place] health care facility records)? Report findings @ -ER visit and admission from 10 24 24 Differential Diagnosis (chest pain, altered mental status, abdominal pain women, abdominal pain men, vaginal bleeding, weakness, fever, dyspnea, syncope, headache, dizziness, GI bleed, back pain, seizure, CVA, palpatations, mental health, musculoskeletal)? @ -Differential Dyspnea:Coronary syndrome, arrhythmia, tamponade, asthma, COPD, pulmonary embolism, pneumonia, pneumothorax, pulmonary effusion, anaphylaxis, diabetic ketoacidosis, flailed chest, pulmonary contusion, diaphragmatic rupture, anemia, neuromuscular, this is not meant to be an all-inclusive list. EKG interpreted by me (3pts min.). @ -As above X-rays interpreted by me (1pt min.). @ -CXR showing no acute cardiopulmonary process. Chronically elevated left diaphragm. CT interpreted by me (1pt min.). @ -None done U/S interpreted by me (1pt. min.). @ -None done What testing was considered but not performed or refused? (CT, X-rays, U/S, labs)? Why? @ -None What meds were considered but not given or refused? Why? @ -None Did you discuss the management of the patient with other professionals (professionals i.e. , PA, GAMEROOM TECHNICIAN, lab, RT, psych nurse, psychotherapist social worker, ground host/hostess, teacher, financial services officer, case monitor)? Give summary @ -No Was smoking cessation discussed for >3mins.? @ -No Was critical care preformed (if so, how long)? @ -No Were there social determinants of health that impacted care today? How? (Homel essness, low income, unemployed, alcoholism, drug addiction, transportation, low edu. Level, literacy, decrease access to med. care, care home, rehab)? @ -No Was there de-escalation of care discussed even if they declined (Discuss DNR or withdrawal of care, Hospice)? DNR status @ -No What co-morbidities impacted this encounter? (DM, HTN, Smoking, COPD, CAD, Cancer, CVA, ARF, Chemo, Hep., AIDS, mental health diagnosis, sleep apnea, morbid obesity)? @ -COPD, GERD, GI bleed, hypertension, history of myocardial infarction Was patient admitted / discharged? Hospital course, mention meds given and route, prescriptions, significant lab abnormalities, going to OR and other pertinent info. @ -Patient left AGAINST MEDICAL ADVICE. 59-year-old male presented to the ER v ia EMS for evaluation of dyspnea. Upon rooming, history and physical exam completed. Vitals acceptable limits. Patient no signs of acute distress nontoxic-appearing. Laboratory studies ordered and pending. Patient was seen exiting the emergency department stating he wanted to "check himself out". Patient left AGAINST MEDICAL ADVICE. Patient left AMA prior to laboratory study results were complete. Patient displayed medical decision-making capabilities. Risks of leaving AMA including but not limited to were discussed with patient who verbally expressed understanding. Case discussed with ED attending, Dr. Cervantes. Undiagnosed new problem with uncertain prognosis? @ -No Drug Therapy requiring intensive monitoring for toxicity (Heparin, Nitro, Ins ulin, Cardizem)? @ -No Were any procedures done? @ -No Diagnosis/symptom? @ -AMA Acute, or Chronic, or Acute on Chronic? @ -N/A Uncomplicated (without systemic symptoms) or Complicated (systemic symptoms)? @ -N/A Side effects of treatment? @ -No Exacerbation, Progression, or Severe Exacerbation? @ -No Poses a threat to life or bodily function? How? (Chest pain, [place], [place], pneumonia, PE, COPD, DKA, ARF, appy, cholecystitis, CVA, Diverticulitis, Homicidal, Suicidal, threat to staff... and all critical care pts) @ -Possibly - Lab Data Result diagrams: 10/31/24 12:10 10/31/24 12:10 Lab Results 10/31/24 10/31/24 10/31/24 Range/Units 12:10 12:10 12:10 WBC 8.08 (4.50-10.00) 10*3/uL RBC 3.99 L (4.40-5.60) 10*6/uL Hgb 8.8 L (13.0-17.0) g/dL Hct 31.4 L (39.6-50.0) % MCV 78.7 L (80.0-97.0) fL MCH 22.1 L (27.0-32.0) pg MCHC 28.0 L (32.0-37.0) g/dL Plt Count 469 H (140-440) 10*3/uL MPV 8.8 L (9.5-12.2) fL Immature Gran % (Auto) 0.4 % Neutrophils % 57.0 % Lymphocytes % 32.5 % Monocytes % 7.3 % Eosinophils % 1.6 % Basophils % 1.2 % Immature Gran # 0.03 (0.00-0.04) 10*3/uL Neutrophils # 4.60 (1.80-7.70) 10*3/uL Lymphocytes # 2.63 (0.90-5.00) 10*3/uL Monocytes # 0.59 (0.20-1.00) 10*3/uL Eosinophils # 0.13 (0.04-0.35) 10*3/uL Basophils # 0.10 (0.00-0.10) 10*3/uL PT 10.3 (10.0-12.5) sec INR 0.9 (<1.2) APTT 22.6 (22.0-30.0) sec Sodium 141 (137-145) mmol/L Potassium 4.5 (3.5-5.1) mmol/L Chloride 105 (98-107) mmol/L Carbon Dioxide 29 (22-30) mmol/L Anion Gap 7 mmol/L BUN 15 (9-20) mg/dL Creatinine 0.67 (0.66-1.25) mg/dL Est GFR (CKD-EPI)AfAm >90 (>60 ml/min/1.73 sqM) Est GFR (CKD-EPI)NonAf >90 (>60 ml/min/1.73 sqM) Glucose 93 (74-99) mg/dL Calcium 9.1 (8.4-10.2) mg/dL Magnesium 1.9 (1.6-2.3) mg/dL Total Bilirubin 0.4 (0.2-1.3) mg/dL AST 40 (17-59) U/L ALT 19 (4-49) U/L Alkaline Phosphatase 88 (38-126) U/L Troponin I (0.000-0.034) ng/mL NT-Pro-B Natriuret Pep 972 pg/mL Total Protein 6.9 (6.3-8.2) g/dL Albumin 4.0 (3.5-5.0) g/dL Serum Alcohol 268 H* mg/dL Influenza Type A (PCR) (Not Detectd) Influenza Type B (PCR) (Not Detectd) RSV (PCR) (Not Detectd) SARS-CoV-2 (PCR) (Not Detectd) 10/31/24 10/31/24 Range/Units 12:10 12:10 WBC (4.50-10.00) 10*3/uL RBC (4.40-5.60) 10*6/uL Hgb (13.0-17.0) g/dL Hct (39.6-50.0) % MCV (80.0-97.0) fL MCH (27.0-32.0) pg MCHC (32.0-37.0) g/dL Plt Count (140-440) 10*3/uL MPV (9.5-12.2) fL Immature Gran % (Auto) % Neutrophils % % Lymphocytes % % Monocytes % % Eosinophils % % Basophils % % Immature Gran # (0.00-0.04) 10*3/uL Neutrophils # (1.80-7.70) 10*3/uL Lymphocytes # (0.90-5.00) 10*3/uL Monocytes # (0.20-1.00) 10*3/uL Eosinophils # (0.04-0.35) 10*3/uL Basophils # (0.00-0.10) 10*3/uL PT (10.0-12.5) sec INR (<1.2) APTT (22.0-30.0) sec Sodium (137-145) mmol/L Potassium (3.5-5.1) mmol/L Chloride (98-107) mmol/L Carbon Dioxide (22-30) mmol/L Anion Gap mmol/L BUN (9-20) mg/dL Creatinine (0.66-1.25) mg/dL Est GFR (CKD-EPI)AfAm (>60 ml/min/1.73 sqM) Est GFR (CKD-EPI)NonAf (>60 ml/min/1.73 sqM) Glucose (74-99) mg/dL Calcium (8.4-10.2) mg/dL Magnesium (1.6-2.3) mg/dL Total Bilirubin (0.2-1.3) mg/dL AST (17-59) U/L ALT (4-49) U/L Alkaline Phosphatase (38-126) U/L Troponin I 0.036 H* (0.000-0.034) ng/mL NT-Pro-B Natriuret Pep pg/mL Total Protein (6.3-8.2) g/dL Albumin (3.5-5.0) g/dL Serum Alcohol mg/dL Influenza Type A (PCR) Not Detected (Not Detectd) Influenza Type B (PCR) Not Detected (Not Detectd) RSV (PCR) Not Detected (Not Detectd) SARS-CoV-2 (PCR) Not Detected (Not Detectd) - Radiology Data Radiology results: report reviewed, image reviewed Disposition Clinical Impression: Left against medical advice Disposition: LEFT AGAINST MEDICAL ADVICE Condition: Undetermined Referrals: None,Stated [Primary Care Provider] - 1-2 days Time of Disposition: 06:19
[2024-10-31] MEDS ORDERED: IPRATROPIUM-ALBUTEROL 3 ML NEB INHALATION STA (12:07)
[2024-10-31] MEDS: ACETAMINOPHEN TAB 325 MG TAB PO STA (12:14)
[2024-10-31] MEDS: ASPIRIN 81 MG PO STA (12:15)
[2024-10-31 12:28] LABS: Basophils % (A) 1.2 %; Eosinophils # (A) 0.13 10*3/uL (0.04-0.35); Eosinophils % (A) 1.6 %; HCT 31.4 % (39.6-50.0); HGB 8.8 g/dL (13.0-17.0); Lymphocytes # (A) 2.63 10*3/uL (0.90-5.00); Lymphocytes % (A) 32.5 %; MCH 22.1 pg (27.0-32.0); MCV 78.7 fL (80.0-97.0); Mean Platelet Volume 8.8 fL (9.5-12.2); Monocytes # (A) 0.59 10*3/uL (0.20-1.00); Monocytes % (A) 7.3 %; Platelet Count 469 10*3/uL (140-440); RBC 3.99 10*6/uL (4.40-5.60); RDW 22.6 % (11.5-14.5); WBC 8.08 10*3/uL (4.50-10.00)
[2024-10-31 12:43] LABS: INR 0.9 (<1.2); Partial Thromboplastin Time 22.6 sec (22.0-30.0); Prothrombin Time 10.3 sec (10.0-12.5)
[2024-10-31 12:44] LABS: ALT 19 U/L (4-49); AST 40 U/L (17-59); African American GFR (CKD) >90 (>60 ml/min/1.73 sqM); Alkaline Phosphatase 88 U/L (38-126); Anion Gap 7 mmol/L; Blood Urea Nitrogen 15 mg/dL (9-20); Calcium 9.1 mg/dL (8.4-10.2); Carbon Dioxide 29 mmol/L (22-30); Chloride 105 mmol/L (98-107); Glucose 93 mg/dL (74-99); Magnesium 1.9 mg/dL (1.6-2.3); Non-African American GFR(CKD) >90 (>60 ml/min/1.73 sqM); Potassium 4.5 mmol/L (3.5-5.1); Sodium 141 mmol/L (137-145); Total Bilirubin 0.4 mg/dL (0.2-1.3); Total Protein 6.9 g/dL (6.3-8.2)
[2024-10-31 12:52] LABS: NT-Pro-B-Type Natriuretic Pept 972 pg/mL
--- NOTE | 2024-10-31 12:57 | XR ---
EXAMINATION TYPE: XR chest 2V DATE OF EXAM: 10/31/2024 12:33 PM COMPARISON: 10/25/2024 CLINICAL INDICATION: Male, 59 years old with history of SOB, TECHNIQUE: XR chest 2V view(s) obtained. FINDINGS: The heart size is Prominent. The pulmonary vasculature is upper limits normal. There is elevation left diaphragm. Loops of bowel are under the diaphragms. Old rib deformities prese nt on the right.. IMPRESSION: 1. No acute pulmonary process. Previous congestive heart failure appears resolved correlate clinicall y 2. Chronic-appearing elevation left diaphragm [facility], , 10/31/2024 12:55 PM
[2024-10-31 13:01] LABS: Influenza A Not Detected (Not Detectd); Influenza B Not Detected (Not Detectd); RSV Not Detected (Not Detectd)
[2024-10-31 13:02] LABS: Alcohol 268 mg/dL
== END 2024-10-31 12:44 | disposition left against medical advice (07) ==
LOC: EC 11:23
DX: Z53.29 Procedure and treatment not carried out because of patient's decision for other reasons (principal); I21.9 Acute myocardial infarction, unspecified; K92.2 Gastrointestinal hemorrhage, unspecified; J44.9 Chronic obstructive pulmonary disease, unspecified; E11.9 Type 2 diabetes mellitus without complications; I11.0 Hypertensive heart disease with heart failure; F17.200 Nicotine dependence, unspecified, uncomplicated; Z88.5 Allergy status to narcotic agent; Z91.041 Radiographic dye allergy status
CPT/HCPCS: 36415; 93005; 83880; 80053; 83735; 84484; 85025; 85610; 85730; 87636; 71046; 99285; G0480; 80320

== ENCOUNTER 2024-10-31 22:54 | Observation (INO) | payer MEDICARE ==
[2024-11-01 00:55] LABS: INR 0.9 (<1.2); Prothrombin Time 10.2 sec (10.0-12.5)
--- NOTE | 2024-11-01 01:02 | ED ---
SOB HPI - General Chief Complaint: Shortness of Breath Stated Complaint: SOB Time Seen by Provider: 11/01/24 00:46 Source: patient, EMS Mode of arrival: EMS Limitations: no limitations - History of Present Illness Initial Comments: This patient is a 59-year-old man with history of COPD and angina who presents with complaint of shortness of breath and chest pain that had started this morning. The patient describes it as an aching feeling. He states that it does not feel similar to his previous angina. Patient had come here earlier in the day to have evaluation, was told that the physician wanted to keep him but he signed out AGAINST MEDICAL ADVICE. Patient states that when he got home the chest pain and shortness of breath continued and therefore he returns. He has not noted fever or chills. No diaphoresis, nausea, vomiting, palpitations, lightheadedness or syncope. He has not noted fever or chills. He does have occasional cough. MD Complaint: shortness of breath, chest pain Onset/Timin -: hour(s) Severity: moderate Severity scale (1-10): 7 Quality: aching Consistency: constant Improves With: nothing Worsens With: nothing Known History Of: COPD, other (Angina) Associated Symptoms: chest pain, cough Treatments Prior to Arrival: aspirin - Related Data Home Oxygen Therapy: No Home Medications Medication Instructions Recorded Confirmed ARIPiprazole IM [Abilify Maintena] 400 mg IM Q28D 09/26/24 11/01/24 Albuterol Inhaler [Ventolin Hfa 2 puff INHALATION RT-QID PRN 09/26/24 11/01/24 Inhaler] Amiodarone [Cordarone] 200 mg PO DAILY 09/26/24 11/01/24 Omeprazole 20 mg PO DAILY 09/26/24 11/01/24 lisinopriL [Zestril] 2.5 mg PO DAILY 09/26/24 11/01/24 DULoxetine HCL [Cymbalta] 30 mg PO DAILY 10/23/24 11/01/24 Folic Acid 1 mg PO DAILY 10/23/24 11/01/24 Previous Rx's Medication Instructions Recorded Vericiguat [Verquvo] 2.5 mg PO DAILY 90 Days #90 tablet 10/25/24 Apixaban [Eliquis] 5 mg PO BID 30 Days #30 tab 10/27/24 Atorvastatin [Lipitor] 40 mg PO HS 30 Days #30 tab 10/27/24 Bisoprolol [Zebeta] 2.5 mg PO DAILY 30 Days #15 tab 10/27/24 Bumetanide [BUMEX] 1 mg PO DAILY 30 Days #30 tab 10/27/24 Dapagliflozin Propanediol [Farxiga] 10 mg PO DAILY 30 Days #30 tab 10/27/24 Ferrous Sulfate [Iron (65 MG 325 mg PO W/LUNCH 30 Days #30 tab 10/27/24 Elemental)] Nicotine 14Mg/24Hr Patch [Habitrol] 1 patch TRANSDERM DAILY 30 Days 10/27/24 #30 patch Spironolactone [Aldactone] 12.5 mg PO DAILY 30 Days #15 tab 10/27/24 Allergies Allergy/AdvReac Type Severity Reaction Status Date / Time Iodinated Contrast Media Allergy Itching-see Verified 11/01/24 09:15 comment fentanyl AdvReac Itching Verified 11/01/24 09:15 Review of Systems ROS Statement: Those systems with pertinent positive or pertinent negative responses have been documented in the HPI. ROS Other: All systems not noted in ROS Statement are negative. Constitutional: Denies: fever, chills Respiratory: Reports: cough, dyspnea, wheezes. Denies: hemoptysis, stridor Cardiovascular: Reports: chest pain, dyspnea on exertion. Denies: palpitations, orthopnea, edema, syncope Gastrointestinal: Denies: abdominal pain, nausea, vomiting Genitourinary: Denies: dysuria, hematuria Musculoskeletal: Denies: back pain Skin: Denies: rash Neurological: Denies: headache, weakness Past Medical History Past Medical History: COPD, GERD/Reflux, GI Bleed, Hypertension, Myocardial Infarction ([place]), Pneumonia, Skin Disorder Additional Past Medical History / Comment(s): ETOH abuse with delirium tremors, lower GI bleed, IBS, chronic iron deficiency anemia, hypomagnesemia, hyperbiliru binemia, anorexia, vertigo, nephrolithiasis-passed stone on his own, chronic low back/cervical pain, DDD, kyphosis, scoliosis, coccyx pressure ulcer pt states is mostly healed. Dry and itchy skin back in high school. 2 heart attacks, one in December (2020) second in February (2020). Last Myocardial Infarction Date:: june 2023 History of Any Multi-Drug Resistant Organisms: None Reported Past Surgical History: Bariatric Surgery, Heart Catheterization With Stent, Hernia Repair, Orthopedic Surgery, Tonsillectomy Additional Past Surgical History / Comment(s): Right inner Forearm-metal plate, gastric bypass, incisional hernia surgery x2, EGDs, colonoscopies. 2 Stents placed in December 2020; bilateral knee surgeries Past Anesthesia/Blood Transfusion Reactions: No Reported Reaction Date of Last Stent Placement:: december 2020 Past Psychological History: Anxiety, Bipolar, Depression, PTSD Smoking Status: Current every day smoker Past Alcohol Use History: Abuse, Daily Past Drug Use History: Marijuana - Past Family History Mother History Unknown: Yes Family Medical History: Hypertension Additional Family Medical History / Comment(s): Lupus. Mother is living. Father History Unknown: Yes Family Medical History: Liver Disease Additional Family Medical History / Comment(s): ETOH abuse. of cirrhosis complications. General Exam Limitations: no limitations General appearance: alert, in no apparent distress Head exam: Present: atraumatic, normocephalic Eye exam: Present: normal appearance. Absent: scleral icterus, conjunctival injection ENT exam: Present: normal oropharynx Neck exam: Present: normal inspection Respiratory exam: Present: wheezes, rales (Bilateral bases left greater than right). Absent: respiratory distress, rhonchi, stridor, accessory muscle use Cardiovascular Exam: Present: regular rate, normal rhythm, normal heart sounds. Absent: systolic murmur, diastolic murmur, rubs, gallop GI/Abdominal exam: Present: soft. Absent: distended, tenderness, guarding, rebound, rigid, mass Extremities exam: Present: normal inspection, normal capillary refill. Absent: pedal edema, calf tenderness Back exam: Present: normal inspection. Absent: CVA tenderness (R), CVA tenderness (L) Neurological exam: Present: alert Skin exam: Present: warm, dry, intact, normal color. Absent: rash Course Vital Signs 10/31/24 11/01/24 11/01/24 23:04 01:00 02:00 Temperature 97.9 F Pulse Rate 97 88 96 Respiratory 17 16 17 Rate Blood Pressure 93/56 108/75 109/76 O2 Sat by Pulse 98 100 97 Oximetry 11/01/24 11/01/24 11/01/24 02:50 06:00 08:16 Temperature 98.5 F 98.1 F Pulse Rate 98 88 85 Respiratory 16 15 16 Rate Blood Pressure 117/74 119/74 129/88 O2 Sat by Pulse 96 96 96 Oximetry 11/01/24 11/01/24 11/01/24 10:00 14:03 15:08 Temperature 98 F Pulse Rate 84 80 84 Respiratory 16 18 18 Rate Blood Pressure 128/74 114/80 114/91 O2 Sat by Pulse 97 97 97 Oximetry 11/01/24 16:27 Temperature 97.9 F Pulse Rate 65 Respiratory 16 Rate Blood Pressure 110/81 O2 Sat by Pulse 98 Oximetry Medical Decision Making - Medical Decision Making The patient had chest x-ray that is limited by the patient's posture but does appear to show small left pleural effusion. Was pt. sent in by a medical professional or institution (Dr. PA, BOAT FUELER, urgent care, hospital, or group home...) When possible be specific @ -[No] Did you speak to anyone other than the patient for history (EMS, parent, family, police, friend...)? What history was obtained from this source @ -[No] Did you review nursing and triage notes (agree or disagree)? Why? @ -[I reviewed and agree with nursing and triage notes] Were old charts reviewed (outside hosp., previous admission, EMS record, old EKG, old radiological studies, urgent care reports/EKG's, group home records)? Report findings @ -[No old charts were reviewed] Differential Diagnosis (chest pain, altered mental status, abdominal pain women, abdominal pain men, vaginal bleeding, weakness, fever, dyspnea, syncope, headache, dizziness, GI bleed, back pain, seizure, CVA, palpatations, mental health, musculoskeletal)? @ -[Differential Chest Pain: Stable Angina, Unstable Angina, STEMI, NSTEMI Aortic Dissection, Pneumothorax, Musculoskeletal, Esophageal Spasm GERD, Cholecystitis, Pancreatitis, Zoster, this is not meant to be an all-inclusive list. EKG interpreted by me (3pts min.). @ -[I interpreted as above X-rays interpreted by me (1pt min.). @ -[I interpreted as above CT interpreted by me (1pt min.). @ -[None done] U/S interpreted by me (1pt. min.). @ -[None done] What testing was considered but not performed or refused? (CT, X-rays, U/S, labs)? Why? @ -[None] What meds were considered but not given or refused? Why? @ -[None] Did you discuss the management of the patient with other professionals (professionals i.e. , PA, BOAT FUELER, lab, RT, psych nurse, long term care social worker, certified nursing attendant, teacher, principal gifts officer, skilled nursing case manager)? Give summary @ -[Case discussed with admitting physician and treatment recommendations are incorporated Was smoking cessation discussed for >3mins.? @ -[No] Was critical care preformed (if so, how long)? @ -[No] Were there social determinants of health that impacted care today? How? (Homelessness, low income, unemployed, alcoholism, drug addiction, transportation, low edu. Level, literacy, decrease access to med. care, assisted, rehab)? @ -[No] Was there de-escalation of care discussed even if they declined (Discuss DNR or withdrawal of care, Hospice)? DNR status @ -[No] What co-morbidities impacted this encounter? (DM, HTN, Smoking, COPD, CAD, Cancer, CVA, ARF, Chemo, Hep., AIDS, mental health diagnosis, sleep apnea, morbid obesity)? @ -[History of COPD, alcohol abuse Was patient admitted / discharged? Hospital course, mention meds given and route, prescriptions, significant lab abnormalities, going to OR and other pertinent info. @ -[Patient is 59-year-old man who had left the hospital AGAINST MEDICAL ADVICE and now returns to have further workup. The patient initial workup does not reveal evidence of acute ischemia. He does have some underlying COPD and will be admitted to have further evaluation and treatment. Undiagnosed new problem with uncertain prognosis? @ -[No] Drug Therapy requiring intensive monitoring for toxicity (Heparin, Nitro, Insulin, Cardizem)? @ -[No] Were any procedures done? @ -[No] Diagnosis/symptom? @ -Acute chest pain Acute exacerbation of COPD Acute alcohol intoxication Chronic anemia Acute, or Chronic, or Acute on Chronic? @ -[ Uncomplicated (without systemic symptoms) or Complicated (systemic symptoms)? @ -[Uncomplicated Side effects of treatment? @ -[No] Exacerbation, Progression, or Severe Exacerbation? @ -[No] Poses a threat to life or bodily function? How? (Chest pain, USA, VT, pneumonia, PE, COPD, DKA, ARF, appy, cholecystitis, CVA, Diverticulitis, Homicidal, Suic idal, threat to staff... and all critical care pts) @ -[Requires further cardiology evaluation All treatments are based on ideal body weight as in ED triage - Lab Data Result diagrams: 11/02/24 06:06 11/02/24 06:06 Lab Results 11/01/24 11/01/24 11/01/24 Range/Units 00:24 00:24 00:24 WBC 9.60 (4.50-10.00) 10*3/uL RBC 4.18 L (4.40-5.60) 10*6/uL Hgb 9.3 L (13.0-17.0) g/dL Hct 33.0 L (39.6-50.0) % MCV 78.9 L (80.0-97.0) fL MCH 22.2 L (27.0-32.0) pg MCHC 28.2 L (32.0-37.0) g/dL Plt Count 536 H (140-440) 10*3/uL MPV 8.7 L (9.5-12.2) fL Immature Gran % (Auto) 0.6 % Neutrophils % 73.6 % Lymphocytes % 15.8 % Monocytes % 7.6 % Eosinophils % 0.9 % Basophils % 1.5 % Immature Gran # 0.06 H (0.00-0.04) 10*3/uL Neutrophils # 7.06 (1.80-7.70) 10*3/uL Lymphocytes # 1.52 (0.90-5.00) 10*3/uL Monocytes # 0.73 (0.20-1.00) 10*3/uL Eosinophils # 0.09 (0.04-0.35) 10*3/uL Basophils # 0.14 H (0.00-0.10) 10*3/uL PT 10.2 (10.0-12.5) sec INR 0.9 (<1.2) APTT 23.0 (22.0-30.0) sec Sodium 140 (137-145) mmol/L Potassium 4.3 (3.5-5.1) mmol/L Chloride 101 (98-107) mmol/L Carbon Dioxide 27 (22-30) mmol/L Anion Gap 12 mmol/L BUN 15 (9-20) mg/dL Creatinine 0.60 L (0.66-1.25) mg/dL Est GFR (CKD-EPI)AfAm >90 (>60 ml/min/1.73 sqM) Est GFR (CKD-EPI)NonAf >90 (>60 ml/min/1.73 sqM) Glucose 61 L (74-99) mg/dL Plasma Lactic Acid Jesse (0.7-2.0) mmol/L Calcium 9.6 (8.4-10.2) mg/dL Magnesium 1.7 (1.6-2.3) mg/dL Total Bilirubin 0.4 (0.2-1.3) mg/dL AST 64 H (17-59) U/L ALT 28 (4-49) U/L Alkaline Phosphatase 91 (38-126) U/L Troponin I (0.000-0.034) ng/mL NT-Pro-B Natriuret Pep 905 pg/mL Total Protein 7.4 (6.3-8.2) g/dL Albumin 4.3 (3.5-5.0) g/dL Serum Alcohol mg/dL 11/01/24 11/01/24 11/01/24 Range/Units 00:24 01:22 01:22 WBC (4.50-10.00) 10*3/uL RBC (4.40-5.60) 10*6/uL Hgb (13.0-17.0) g/dL Hct (39.6-50.0) % MCV (80.0-97.0) fL MCH (27.0-32.0) pg MCHC (32.0-37.0) g/dL Plt Count (140-440) 10*3/uL MPV (9.5-12.2) fL Immature Gran % (Auto) % Neutrophils % % Lymphocytes % % Monocytes % % Eosinophils % % Basophils % % Immature Gran # (0.00-0.04) 10*3/uL Neutrophils # (1.80-7.70) 10*3/uL Lymphocytes # (0.90-5.00) 10*3/uL Monocytes # (0.20-1.00) 10*3/uL Eosinophils # (0.04-0.35) 10*3/uL Basophils # (0.00-0.10) 10*3/uL PT (10.0-12.5) sec INR (<1.2) APTT (22.0-30.0) sec Sodium (137-145) mmol/L Potassium (3.5-5.1) mmol/L Chloride (98-107) mmol/L Carbon Dioxide (22-30) mmol/L Anion Gap mmol/L BUN (9-20) mg/dL Creatinine (0.66-1.25) mg/dL Est GFR (CKD-EPI)AfAm (>60 ml/min/1.73 sqM) Est GFR (CKD-EPI)NonAf (>60 ml/min/1.73 sqM) Glucose (74-99) mg/dL Plasma Lactic Acid Jesse 2.8 H* (0.7-2.0) mmol/L Calcium (8.4-10.2) mg/dL Magnesium (1.6-2.3) mg/dL Total Bilirubin (0.2-1.3) mg/dL AST (17-59) U/L ALT (4-49) U/L Alkaline Phosphatase (38-126) U/L Troponin I 0.030 (0.000-0.034) ng/mL NT-Pro-B Natriuret Pep pg/mL Total Protein (6.3-8.2) g/dL Albumin (3.5-5.0) g/dL Serum Alcohol 64 mg/dL - EKG Data -: EKG Interpreted by Nv EKG shows normal: sinus rhythm, axis (Normal), intervals (LA interval 167 ms, QTc 439 ms, both normal. QRS duration 122 ms, prolonged consistent with intraventricular conduction delay.), QRS complexes (Interventricular conduction delay), ST-T waves (Normal) Rate: normal (Rate 82 bpm) Disposition Clinical Impression: Acute exacerbation of chronic obstructive pulmonary disease, Alcohol intoxication, Anemia, Chest pain Disposition: ADMITTED IP TO THIS HOSP Condition: Fair Is patient prescribed a controlled substance at d/c from ED?: No
[2024-11-01 01:09] LABS: ALT 28 U/L (4-49); AST 64 U/L (17-59); African American GFR (CKD) >90 (>60 ml/min/1.73 sqM); Albumin 4.3 g/dL (3.5-5.0); Alkaline Phosphatase 91 U/L (38-126); Anion Gap 12 mmol/L; Blood Urea Nitrogen 15 mg/dL (9-20); Calcium 9.6 mg/dL (8.4-10.2); Carbon Dioxide 27 mmol/L (22-30); Chloride 101 mmol/L (98-107); Glucose 61 mg/dL (74-99); Magnesium 1.7 mg/dL (1.6-2.3); Non-African American GFR(CKD) >90 (>60 ml/min/1.73 sqM); Potassium 4.3 mmol/L (3.5-5.1); Sodium 140 mmol/L (137-145); Total Bilirubin 0.4 mg/dL (0.2-1.3); Total Protein 7.4 g/dL (6.3-8.2)
[2024-11-01 01:17] LABS: NT-Pro-B-Type Natriuretic Pept 905 pg/mL
[2024-11-01 01:19] LABS: Basophils # (A) 0.14 10*3/uL (0.00-0.10); Basophils % (A) 1.5 %; Eosinophils # (A) 0.09 10*3/uL (0.04-0.35); Eosinophils % (A) 0.9 %; HGB 9.3 g/dL (13.0-17.0); Lymphocytes # (A) 1.52 10*3/uL (0.90-5.00); Lymphocytes % (A) 15.8 %; MCH 22.2 pg (27.0-32.0); MCHC 28.2 g/dL (32.0-37.0); MCV 78.9 fL (80.0-97.0); Mean Platelet Volume 8.7 fL (9.5-12.2); Monocytes # (A) 0.73 10*3/uL (0.20-1.00); Monocytes % (A) 7.6 %; Neutrophils # (A) 7.06 10*3/uL (1.80-7.70); Neutrophils % (A) 73.6 %; Platelet Count 536 10*3/uL (140-440); RBC 4.18 10*6/uL (4.40-5.60); RDW 22.7 % (11.5-14.5)
--- NOTE | 2024-11-01 01:51 | XR ---
EXAM: XR Chest, 2 Views CLINICAL HISTORY: ITS.REASON XR Reason: difficulty breathing TECHNIQUE: Frontal and lateral views of the chest. COMPARISON: Chest x-ray of 10/31/2024. FINDINGS: Lungs: Minimal scarring at the left lung base. No consolidation. Pleural space: Minimal blunting of the left CP angle suggests a possible effusion. No pneumothorax. Heart: Cardiomegaly. Mediastinum: Unremarkable. Normal mediastinal contour. Bones/joints: Dextroscoliosis. Other findings: Hypoaeration. IMPRESSION: 1. Cardiomegaly and small left pleural effusion. Consider congestive heart failure. 2. Moderate to severe degenerative disc disease of the thoracic spine and kyphosis are noted.
[2024-11-01] MEDS: MORPHINE SULFATE 4 MG/ML SYRINGE IV STA (02:48)
[2024-11-01] MEDS: NITROGLYCERIN SL TABS 0.4 MG TAB SUBLINGUAL PRN (02:49)
[2024-11-01] MEDS ORDERED: chlordiazePOXIDE 25 MG CAP PO PRN (02:52)
[2024-11-01] MEDS ORDERED: LORazepam 2 MG/ML INJ IV PRN ×3 (02:52)
[2024-11-01] MEDS ORDERED: HEPARIN SODIUM 1,000 UN/ML (10ML VL) IV PRN (09:13)
[2024-11-01] MEDS: HEPARIN SOD,PORK IN 0.45% NACL 25,000 UNIT in 0.45% NACL 1 250ML.BAG IV SCH (09:35)
[2024-11-01] MEDS: HEPARIN SODIUM 1,000 UN/ML (10ML VL) IV ONE (09:35)
[2024-11-01 10:20] LABS: Partial Thromboplastin Time 24.2 sec (22.0-30.0)
[2024-11-01 10:25] LABS: Basophils # (A) 0.11 10*3/uL (0.00-0.10); Basophils % (A) 1.2 %; Eosinophils # (A) 0.15 10*3/uL (0.04-0.35); Eosinophils % (A) 1.6 %; HCT 31.2 % (39.6-50.0); HGB 8.9 g/dL (13.0-17.0); Lymphocytes # (A) 2.53 10*3/uL (0.90-5.00); Lymphocytes % (A) 27.7 %; MCH 22.3 pg (27.0-32.0); MCHC 28.5 g/dL (32.0-37.0); Mean Platelet Volume 8.9 fL (9.5-12.2); Monocytes # (A) 0.82 10*3/uL (0.20-1.00); Neutrophils # (A) 5.51 10*3/uL (1.80-7.70); Neutrophils % (A) 60.2 %; Platelet Count 469 10*3/uL (140-440); RDW 22.5 % (11.5-14.5); WBC 9.15 10*3/uL (4.50-10.00)
[2024-11-01] MEDS ORDERED: ALBUTEROL NEBULIZED 2.5 MG/3 ML INHALATION PRN (13:32)
--- NOTE | 2024-11-01 13:42 | P.HPIM ---
History of Present Illness 59-year-old male with a known history of coronary artery disease, congestive heart failure EF of around 25% came with complaints of chest pressure-like sensation radiating to the left shoulder which started yesterday on and off, resolved at this time. Patient denied any fever chills coughing patient chest pain is nonpleuritic in nature patient shortness of breath resolved at this time EKG did not show any acute ST-T wave changes chest x-ray is within normal limits patient is on room air saturating well at this time was evaluated by cardiology patient has mild elevation of troponins which is 0.038 and 0.037 and mildly elevated lactic acid and patient is on metformin. Patient was on IV heparin which has been discontinued as per cardiology recommendations. Patient started drinking a couple weeks ago patient was sober for a long time patient is also on alcohol withdrawal precautions at this time. REVIEW OF SYSTEMS: All other systems are negative except those mentioned in the HPI PHYSICAL EXAMINATION: GENERAL: The patient is alert and oriented x3, not in any acute distress. Well developed, well nourished. HEENT: Pupils are round and equally reacting to light. EOMI. No scleral icterus. No conjunctival pallor. Normocephalic, atraumatic. No pharyngeal erythema. No thyromegaly. CARDIOVASCULAR: S1 and S2 present. No murmurs, rubs, or gallops. PULMONARY: Chest is clear to auscultation, no wheezing or crackles. ABDOMEN: Soft, nontender, nondistended, normoactive bowel sounds. No palpable organomegaly. MUSCULOSKELETAL: No joint swelling or deformity. EXTREMITIES: No cyanosis, clubbing, or pedal edema. NEUROLOGICAL: Gross neurological examination did not reveal any focal deficits. SKIN: No rashes. Assessment and plan -Chest pain and shortness of breath rule out acute coronary syndrome with only minimal troponin elevation. Patient will be monitored overnight cardiology following the patient. Heparin has been discontinued patient will be resumed on his coronary disease medications - Congestive heart failure ischemic cardiomyopathy chronic systolic function without any acute exacerbation patient was resumed on his heart failure medications at this time. Patient is being evaluated as an outpatient for AICD placement. - Depression for which patient on Cymbalta which was resumed - Atrial fibrillation paroxysmal rate controlled at this time resumed on anticoagulation with Eliquis, amiodarone - Hypertension - COPD without any acute exacerbation-patient saturating well at this time - Alcohol abuse - Alcohol withdrawal for which patient will be monitored and will be on [facility] protocol - Coronary artery disease DVT prophylaxis: On anticoagulation with Eliquis Past Medical History Past Medical History: COPD, GERD/Reflux, GI Bleed, Hypertension, Myocardial Infarction ([place]), Pneumonia, Skin Disorder Additional Past Medical History / Comment(s): ETOH abuse with delirium tremors, lower GI bleed, IBS, chronic iron deficiency anemia, hypomagnesemia, hyperbilirubinemia, anorexia, vertigo, nephrolithiasis-passed stone on his own, chronic low back/cervical pain, DDD, kyphosis, scoliosis, coccyx pressure ulcer pt states is mostly healed. Dry and itchy skin back in high school. 2 heart attacks, one in December (2020) second in February (2020). Last Myocardial Infarction Date:: june 2023 History of Any Multi-Drug Resistant Organisms: None Reported Past Surgical History: Bariatric Surgery, Heart Catheterization With Stent, Hernia Repair, Orthopedic Surgery, Tonsillectomy Additional Past Surgical History / Comment(s): Right inner Forearm-metal plate, gastric bypass, incisional hernia surgery x2, EGDs, colonoscopies. 2 Stents placed in December 2020; bilateral knee surgeries Past Anesthesia/Blood Transfusion Reactions: No Reported Reaction Date of Last Stent Placement:: december 2020 Past Psychological History: Anxiety, Bipolar, Depression, PTSD Smoking Status: Current every day smoker Past Alcohol Use History: Abuse, Daily Past Drug Use History: Marijuana - Past Family History Mother History Unknown: Yes Family Medical History: Hypertension Additional Family Medical History / Comment(s): Lupus. Mother is living. Father History Unknown: Yes Family Medical History: Liver Disease Additional Family Medical History / Comment(s): ETOH abuse. of cirrhosis complications. Medications and Allergies Home Medications Medication Instructions Recorded Confirmed Type ARIPiprazole IM [Abilify Maintena] 400 mg IM Q28D 09/26/24 11/01/24 History Albuterol Inhaler [Ventolin Hfa 2 puff INHALATION RT-QID PRN 09/26/24 11/01/24 History Inhaler] Amiodarone [Cordarone] 200 mg PO DAILY 09/26/24 11/01/24 History Omeprazole 20 mg PO DAILY 09/26/24 11/01/24 History lisinopriL [Zestril] 2.5 mg PO DAILY 09/26/24 11/01/24 History DULoxetine HCL [Cymbalta] 30 mg PO DAILY 10/23/24 11/01/24 History Folic Acid 1 mg PO DAILY 10/23/24 11/01/24 History metFORMIN HCL 500 mg PO BID 10/23/24 11/01/24 History Vericiguat [Verquvo] 2.5 mg PO DAILY 90 Days #90 tablet 10/25/24 11/01/24 Rx Apixaban [Eliquis] 5 mg PO BID 30 Days #30 tab 10/27/24 11/01/24 Rx Atorvastatin [Lipitor] 40 mg PO HS 30 Days #30 tab 10/27/24 11/01/24 Rx Bisoprolol [Zebeta] 2.5 mg PO DAILY 30 Days #15 tab 10/27/24 11/01/24 Rx Bumetanide [BUMEX] 1 mg PO DAILY 30 Days #30 tab 10/27/24 11/01/24 Rx Dapagliflozin Propanediol [Farxiga] 10 mg PO DAILY 30 Days #30 tab 10/27/24 11/01/24 Rx Ferrous Sulfate [Iron (65 MG 325 mg PO W/LUNCH 30 Days #30 tab 10/27/24 11/01/24 Rx Elemental)] Nicotine 14Mg/24Hr Patch [Habitrol] 1 patch TRANSDERM DAILY 30 Days 10/27/24 11/01/24 Rx #30 patch Spironolactone [Aldactone] 12.5 mg PO DAILY 30 Days #15 tab 10/27/24 11/01/24 Rx Allergies Allergy/AdvReac Type Severity Reaction Status Date / Time Iodinated Contrast Media Allergy Itching-see Verified 11/01/24 09:15 comment fentanyl AdvReac Itching Verified 11/01/24 09:15 Physical Exam Vitals: Vital Signs Temp Pulse Resp BP Pulse Ox 11/01/24 10:00 98 F 84 16 128/74 97 11/01/24 08:16 98.1 F 85 16 129/88 96 11/01/24 06:00 88 15 119/74 96 11/01/24 02:50 98.5 F 98 16 117/74 96 11/01/24 02:00 96 17 109/76 97 11/01/24 01:00 88 16 108/75 100 10/31/24 23:04 97.9 F 97 17 93/56 98 Intake and Output 10/31/24 11/01/24 11/01/24 22:59 06:59 14:59 Other: Weight 83.915 kg Results CBC & Chem 7: 11/01/24 09:32 11/01/24 00:24 Labs: Abnormal Lab Results - Last 24 Hours (Table) 11/01/24 11/01/24 11/01/24 Range/Units 00:24 00:24 01:22 RBC 4.18 L (4.40-5.60) 10*6/uL Hgb 9.3 L (13.0-17.0) g/dL Hct 33.0 L (39.6-50.0) % MCV 78.9 L (80.0-97.0) fL MCH 22.2 L (27.0-32.0) pg MCHC 28.2 L (32.0-37.0) g/dL RDW (11.5-14.5) % Plt Count 536 H (140-440) 10*3/uL MPV 8.7 L (9.5-12.2) fL Immature Gran # 0.06 H (0.00-0.04) 10*3/uL Basophils # 0.14 H (0.00-0.10) 10*3/uL Creatinine 0.60 L (0.66-1.25) mg/dL Glucose 61 L (74-99) mg/dL Plasma Lactic Acid Jesse 2.8 H* (0.7-2.0) mmol/L AST 64 H (17-59) U/L Troponin I (0.000-0.034) ng/mL 11/01/24 11/01/24 11/01/24 Range/Units 04:49 07:40 09:32 RBC 4.00 L (4.40-5.60) 10*6/uL Hgb 8.9 L (13.0-17.0) g/dL Hct 31.2 L (39.6-50.0) % MCV 78.0 L (80.0-97.0) fL MCH 22.3 L (27.0-32.0) pg MCHC 28.5 L (32.0-37.0) g/dL RDW 22.5 H (11.5-14.5) % Plt Count 469 H (140-440) 10*3/uL MPV 8.9 L (9.5-12.2) fL Immature Gran # (0.00-0.04) 10*3/uL Basophils # 0.11 H (0.00-0.10) 10*3/uL Creatinine (0.66-1.25) mg/dL Glucose (74-99) mg/dL Plasma Lactic Acid Jesse (0.7-2.0) mmol/L AST (17-59) U/L Troponin I 0.038 H* 0.037 H* (0.000-0.034) ng/mL
[2024-11-01] MEDS ORDERED: metFORMIN 500 MG TAB PO SCH (13:45)
[2024-11-01] MEDS: APIXABAN 5 MG TAB PO SCH (14:04)
[2024-11-01] MEDS: BUMETANIDE 1 MG TAB PO SCH (14:04)
[2024-11-01] MEDS: DULoxetine HCL 30 MG CAPSULE.DR PO SCH (14:04)
[2024-11-01] MEDS: SPIRONOLACTONE 25 MG TAB PO SCH (14:05)
--- NOTE | 2024-11-01 14:17 | P.CRDCN ---
History of Present Illness Consult date: 11/01/24 Requesting physician: Jazmin Condon Reason for Consult (text): Chest pain Chief complaint: Shortness of breath and chest pain History of present illness: This is a pleasant 59-year-old gentleman patient of Dr. Chaudhari with past medical history of coronary artery disease, ischemic cardiomyopathy, chronic systolic heart failure, paroxysmal atrial fibrillation, hypertension, hyperlipidemia, alcohol abuse and noncompliance. Was recently hospitalized earlier this month with complaints of shortness of breath and diaphoresis was found to be in acute CHF and diuresed with IV Lasix. Patient was discharged home on maximized medical therapy after insisting he be discharged home early. He presented again with complaints of shortness of breath and heaviness in his chest. He had not been taking medications at home. He had been drinking alcohol at home. Denies any orthopnea or PND Diagnostics -EKG: Sinus rhythm with moderate IVCD -Chest x-ray: No acute pulmonary process, previous congestive heart failure appears resolved correlate clinically, chronic appearing elevation left diaphragm -Laboratory studies: Hemoglobin 8.9, sodium 140, potassium 4.3, BUN 15, creatinine 0.60, NT proBNP 905, troponin 0.030, 0.038 and 0.037, chronically elevated in the past -Home cardiac medications: Had not been taking any medications at home but prescribed amiodarone 200 mg p.o. daily, Eliquis 5 mg p.o. twice daily, Lipitor 40 mg p.o. daily, bisoprolol 2.5 mg p.o. daily, Bumex 1 mg p.o. daily, Farxiga 10 mg p.o. daily, Aldactone 12.5 mg p.o. daily, lisinopril 2.5 mg p.o. daily, and Verquvo 2.5 mg p.o. daily -Prior stress test: September 2023 markedly abnormal exam, global hypokinesis with estimated LVEF of 35% and large areas of fixed perfusion defect including the anteroseptal wall and inferior wall -Echocardiogram: 10/24/2024, severe LV dysfunction with severely reduced LV ejection fraction of 20 to 25% -Cardiac catheterization: October 2023 revealed severely calcified coronary arteries, patent stent in the proximal LAD and left circumflex and chronically occluded proximal RCA and mid to distal LAD with a normal LVEDP Review Of Systems: At the time of my exam: CONSTITUTIONAL: Denies fever or chills. HEENT: Denies blurred vision, vision changes. CARDIOVASCULAR: Denies chest pain. Denies orthopnea. Denies PND. Denies palpitations, dizziness, or syncope. RESPIRATORY: Denies shortness of breath, wheezing, or cough. Denies hemoptysis. GASTROINTESTINAL: Denies abdominal pain. Denies nausea or vomiting. Denies bleeding. HEMATOLOGIC: Denies bleeding disorders. GENITOURINARY: Denies hematuria. SKIN: Denies puritis. Denies rash. PHYSICAL EXAMINATION: This is a 59-year-old gentleman in no apparent distress at the time of my examination. VITAL SIGNS: Reviewed. HEENT: Head is atraumatic, normocephalic. Pupils are equal, round. Sclerae anicteric. Conjunctivae are clear. Mucous membranes of the mouth are moist. Neck is supple. There is no elevated jugular venous pressure. No carotid bruit is heard. CHEST EXAMINATION: Diminished air entry bilaterally. No wheezes rales or rhonchi. Respirations even and nonlabored. HEART EXAMINATION: Heart regular, positive S1 and S2. No S3. No S4. Soft systolic murmur. ABDOMEN: Soft, nontender. Bowel sounds are heard. No organomegaly noted. EXTREMITIES: 2+ peripheral pulses with no evidence of peripheral edema and no calf tenderness noted. NEUROLOGIC EXAMINATION: Patient is awake, alert and oriented x3. Assessment: 1. Ischemic cardiomyopathy 2. CAD with prior stenting 3. Paroxysmal atrial fibrillation, currently maintaining sinus mechanism 4. Noncompliance 5. Alcohol abuse Plan: From cardiology's perspective resume home medications. Stop IV heparin. Encourage medication compliance and alcohol cessation. Further recommendations to follow depending on clinical course. Thank you kindly for this consultation. Nurse practitioner note has been reviewed, I agree with documented findings and plan of care. Patient was seen and examined. Past Medical History Past Medical History: COPD, GERD/Reflux, GI Bleed, Hypertension, Myocardial Infarction ([place]), Pneumonia, Skin Disorder Additional Past Medical History / Comment(s): ETOH abuse with delirium tremors, lower GI bleed, IBS, chronic iron deficiency anemia, hypomagnesemia, hyperbilirubinemia, anorexia, vertigo, nephrolithiasis-passed stone on his own, chronic low back/cervical pain, DDD, kyphosis, scoliosis, coccyx pressure ulcer pt states is mostly healed. Dry and itchy skin back in high school. 2 heart attacks, one in December (2020) second in February (2020). Last Myocardial Infarction Date:: june 2023 History of Any Multi-Drug Resistant Organisms: None Reported Past Surgical History: Bariatric Surgery, Heart Catheterization With Stent, Hernia Repair, Orthopedic Surgery, Tonsillectomy Additional Past Surgical History / Comment(s): Right inner Forearm-metal plate, gastric bypass, incisional hernia surgery x2, EGDs, colonoscopies. 2 Stents placed in December 2020; bilateral knee surgeries Past Anesthesia/Blood Transfusion Reactions: No Reported Reaction Date of Last Stent Placement:: december 2020 Past Psychological History: Anxiety, Bipolar, Depression, PTSD Smoking Status: Current every day smoker Past Alcohol Use History: Abuse, Daily Past Drug Use History: Marijuana - Past Family History Mother History Unknown: Yes Family Medical History: Hypertension Additional Family Medical History / Comment(s): Lupus. Mother is living. Father History Unknown: Yes Family Medical History: Liver Disease Additional Family Medical History / Comment(s): ETOH abuse. of cirrhosis complications. Medications and Allergies Home Medications Medication Instructions Recorded Confirmed Type ARIPiprazole IM [Abilify Maintena] 400 mg IM Q28D 09/26/24 11/01/24 History Albuterol Inhaler [Ventolin Hfa 2 puff INHALATION RT-QID PRN 09/26/24 11/01/24 History Inhaler] Amiodarone [Cordarone] 200 mg PO DAILY 09/26/24 11/01/24 History Omeprazole 20 mg PO DAILY 09/26/24 11/01/24 History lisinopriL [Zestril] 2.5 mg PO DAILY 09/26/24 11/01/24 History DULoxetine HCL [Cymbalta] 30 mg PO DAILY 10/23/24 11/01/24 History Folic Acid 1 mg PO DAILY 10/23/24 11/01/24 History metFORMIN HCL 500 mg PO BID 10/23/24 11/01/24 History Vericiguat [Verquvo] 2.5 mg PO DAILY 90 Days #90 tablet 10/25/24 11/01/24 Rx Apixaban [Eliquis] 5 mg PO BID 30 Days #30 tab 10/27/24 11/01/24 Rx Atorvastatin [Lipitor] 40 mg PO HS 30 Days #30 tab 10/27/24 11/01/24 Rx Bisoprolol [Zebeta] 2.5 mg PO DAILY 30 Days #15 tab 10/27/24 11/01/24 Rx Bumetanide [BUMEX] 1 mg PO DAILY 30 Days #30 tab 10/27/24 11/01/24 Rx Dapagliflozin Propanediol [Farxiga] 10 mg PO DAILY 30 Days #30 tab 10/27/24 11/01/24 Rx Ferrous Sulfate [Iron (65 MG 325 mg PO W/LUNCH 30 Days #30 tab 10/27/24 11/01/24 Rx Elemental)] Nicotine 14Mg/24Hr Patch [Habitrol] 1 patch TRANSDERM DAILY 30 Days 10/27/24 11/01/24 Rx #30 patch Spironolactone [Aldactone] 12.5 mg PO DAILY 30 Days #15 tab 10/27/24 11/01/24 Rx Allergies Allergy/AdvReac Type Severity Reaction Status Date / Time Iodinated Contrast Media Allergy Itching-see Verified 11/01/24 09:15 comment fentanyl AdvReac Itching Verified 11/01/24 09:15 Physical Exam Vitals: Vital Signs Temp Pulse Resp BP Pulse Ox 11/01/24 14:03 80 18 114/80 97 11/01/24 10:00 98 F 84 16 128/74 97 11/01/24 08:16 98.1 F 85 16 129/88 96 11/01/24 06:00 88 15 119/74 96 11/01/24 02:50 98.5 F 98 16 117/74 96 11/01/24 02:00 96 17 109/76 97 11/01/24 01:00 88 16 108/75 100 10/31/24 23:04 97.9 F 97 17 93/56 98 Intake and Output 10/31/24 11/01/24 11/01/24 22:59 06:59 14:59 Other: Weight 83.915 kg Results 11/01/24 09:32 11/01/24 00:24 Cardiac Enzymes 11/01/24 11/01/24 11/01/24 Range/Units 00:24 00:24 04:49 AST 64 H (17-59) U/L Troponin I 0.030 0.038 H* (0.000-0.034) ng/mL 11/01/24 Range/Units 07:40 AST (17-59) U/L Troponin I 0.037 H* (0.000-0.034) ng/mL Coagulation 11/01/24 11/01/24 Range/Units 00:24 09:32 PT 10.2 11.0 (10.0-12.5) sec APTT 23.0 24.2 (22.0-30.0) sec CBC 11/01/24 11/01/24 Range/Units 00:24 09:32 WBC 9.60 9.15 (4.50-10.00) 10*3/uL RBC 4.18 L 4.00 L (4.40-5.60) 10*6/uL Hgb 9.3 L 8.9 L (13.0-17.0) g/dL Hct 33.0 L 31.2 L (39.6-50.0) % Plt Count 536 H 469 H (140-440) 10*3/uL Comprehensive Metabolic Panel 11/01/24 Range/Units 00:24 Sodium 140 (137-145) mmol/L Potassium 4.3 (3.5-5.1) mmol/L Chloride 101 (98-107) mmol/L Carbon Dioxide 27 (22-30) mmol/L BUN 15 (9-20) mg/dL Creatinine 0.60 L (0.66-1.25) mg/dL Glucose 61 L (74-99) mg/dL Calcium 9.6 (8.4-10.2) mg/dL AST 64 H (17-59) U/L ALT 28 (4-49) U/L Alkaline Phosphatase 91 (38-126) U/L Total Protein 7.4 (6.3-8.2) g/dL Albumin 4.3 (3.5-5.0) g/dL Current Medications Generic Name Dose Route Start Last Admin Trade Name Freq PRN Reason Stop Dose Admin Albuterol Sulfate 2.5 mg 11/01/24 13:32 Albuterol Nebulized 2.5 Mg/3 Ml INHALATION RT-QID PRN Shortness Of Breath Amiodarone HCl 200 mg 11/02/24 09:00 Amiodarone 200 Mg Tab PO DAILY [facility] Apixaban 5 mg 11/01/24 14:00 11/01/24 14:04 Apixaban 5 Mg Tab PO 5 mg BID ROLA Administration Protocol Aripiprazole 400 mg 11/12/24 09:00 Aripiprazole Im 400 Mg Vial (No Cost) Pharmacy Stock IM Q28D [facility] Aspirin 81 mg 11/02/24 09:00 Aspirin 81 Mg PO DAILY [facility] Atorvastatin Calcium 40 mg 11/01/24 21:00 Atorvastatin 40 Mg Tab PO HS [facility] Bisoprolol Fumarate 2.5 mg 11/01/24 14:00 Bisoprolol 5 Mg Tab PO DAILY [facility] Bumetanide 1 mg 11/01/24 14:00 11/01/24 14:04 Bumetanide 1 Mg Tab PO 1 mg DAILY [facility] Administration Chlordiazepoxide HCl 50 mg 11/01/24 02:52 Chlordiazepoxide 25 Mg Cap PO Q4HR PRN Ciwa 6 To 7 Dapagliflozin 10 mg 11/02/24 09:00 Dapagliflozin Propanediol 10 Mg Tablet PO DAILY [facility] Duloxetine HCl 30 mg 11/01/24 14:00 11/01/24 14:04 Duloxetine Hcl 30 Mg Capsule.Dr PO 30 mg DAILY [facility] Administration Lisinopril 2.5 mg 11/01/24 14:00 Lisinopril 2.5 Mg Tab PO DAILY [facility] Lorazepam 2 mg 11/01/24 02:52 Lorazepam 2 Mg/Ml Inj IV 11/03/24 02:52 Q10M PRN CIWA 16 or higher Lorazepam 1 mg 11/01/24 02:52 Lorazepam 2 Mg/Ml Inj IV Q2HR PRN CIWA 8 or 9 Lorazepam 1 mg 11/01/24 02:52 Lorazepam 2 Mg/Ml Inj IV Q1HR PRN CIWA 10 to 15 Nicotine 1 patch 11/02/24 09:00 Nicotine 14mg/24hr Patch TRANSDERM DAILY [facility] Nitroglycerin 0.4 mg 11/01/24 02:41 11/01/24 10:13 Nitroglycerin Sl Tabs 0.4 Mg Tab SUBLINGUAL 0.4 mg Q5M PRN Administration Chest Pain Non-Formulary Medication 2.5 mg 11/02/24 09:00 Vericiguat [Verquvo] PO DAILY [facility] Pantoprazole Sodium 40 mg 11/02/24 07:30 Pantoprazole 40 Mg Tablet PO AC-BRKFST [facility] Sodium Chloride 10 ml 11/01/24 09:00 11/01/24 09:00 Sodium Chloride 0.9% Flush 10 Ml Syringe IV 10 ml BID ROLA Administration Spironolactone 12.5 mg 11/01/24 14:00 11/01/24 14:05 Spironolactone 25 Mg Tab PO 12.5 mg DAILY [facility]OLA Administration Thiamine HCl 100 mg 11/02/24 09:00 Thiamine 100 Mg Tab PO DAILY [facility]OLA Intake and Output 10/31/24 11/01/24 11/01/24 22:59 06:59 14:59 Other: Weight 83.915 kg 11/01/24 09:32 11/01/24 00:24
[2024-11-01] MEDS: BISOPROLOL 5 MG TAB PO SCH (15:06)
[2024-11-01 17:13] VITALS: RESP 16
[2024-11-01] MEDS ORDERED: LORazepam 1 MG/0.5 ML VIAL IV PRN ×3 (19:40→19:45)
[2024-11-01] MEDS: ATORVASTATIN 40 MG TAB PO SCH (20:11)
[2024-11-02] MEDS: PANTOPRAZOLE 40 MG TABLET PO SCH (06:33)
[2024-11-02 06:59] LABS: African American GFR (CKD) >90 (>60 ml/min/1.73 sqM); Anion Gap 5 mmol/L; Blood Urea Nitrogen 16 mg/dL (9-20); Calcium 9.4 mg/dL (8.4-10.2); Carbon Dioxide 31 mmol/L (22-30); Chloride 97 mmol/L (98-107); Glucose 94 mg/dL (74-99); Magnesium 1.7 mg/dL (1.6-2.3); Non-African American GFR(CKD) >90 (>60 ml/min/1.73 sqM); Potassium 4.2 mmol/L (3.5-5.1); Sodium 133 mmol/L (137-145)
[2024-11-02 07:26] VITALS: BP 95/59
[2024-11-02] MEDS ORDERED: ASPIRIN 325 MG TAB PO SCH (09:00)
[2024-11-02] MEDS: AMIODARONE 200 MG TAB PO SCH (09:09)
[2024-11-02] MEDS: NICOTINE 14MG/24HR PATCH TRANSDERM SCH (09:09)
[2024-11-02] MEDS: VERICIGUAT 2.5 MG PO SCH (09:10)
[2024-11-02] MEDS: THIAMINE 100 MG TAB PO SCH (09:10)
[2024-11-02] MEDS: DAPAGLIFLOZIN PROPANEDIOL 10 MG TABLET PO SCH (09:10)
[2024-11-02 09:44] LABS: Basophils # (A) 0.11 X 10*3/uL (0.00-0.10); Basophils % (A) 1.4 %; Eosinophils # (A) 0.24 X 10*3/uL (0.04-0.35); Eosinophils % (A) 3.1 %; HCT 30.8 % (39.6-50.0); HGB 8.7 g/dL (13.0-17.0); Lymphocytes # (A) 1.65 X 10*3/uL (0.90-5.00); Lymphocytes % (A) 21.5 %; MCH 22.1 pg (27.0-32.0); MCHC 28.2 g/dL (32.0-37.0); MCV 78.4 FL (80.0-97.0); Mean Platelet Volume 9.1 FL (9.5-12.2); Monocytes # (A) 0.78 X 10*3/uL (0.20-1.00); Monocytes % (A) 10.1 %; NRBC Per 100 WBC 0 X 10*3/uL (0.00-0.01); Neutrophils # (A) 4.88 X 10*3/uL (1.80-7.70); Neutrophils % (A) 63.5 %; Platelet Count 445 X 10*3/uL (140-440); RBC 3.93 X 10*6/uL (4.40-5.60); RDW 21.9 % (11.5-14.5); WBC 7.69 X 10*3/uL (4.50-10.00)
[2024-11-02] MEDS: ASPIRIN 81 MG PO SCH (10:52)
--- NOTE | 2024-11-02 12:19 | P.PN ---
Subjective Progress Note Date: 11/02/24 This is a pleasant 59-year-old gentleman patient of Dr. Chaudhari with past medical history of coronary artery disease, ischemic cardiomyopathy, chronic systolic heart failure, paroxysmal atrial fibrillation, hypertension, hyperlipidemia, alcohol abuse and noncompliance. Was recently hospitalized earlier this month with complaints of shortness of breath and diaphoresis was found to be in acute CHF and diuresed with IV Lasix. Patient was discharged home on maximized medical therapy after insisting he be discharged home early. He presented again with complaints of shortness of breath and heaviness in his chest. He had not been taking medications at home. He had been drinking alcohol at home. Denies any orthopnea or PND Diagnostics -EKG: Sinus rhythm with moderate IVCD -Chest x-ray: No acute pulmonary process, previous congestive heart failure appears resolved correlate clinically, chronic appearing elevation left diaphragm -Laboratory studies: Hemoglobin 8.9, sodium 140, potassium 4.3, BUN 15, creatinine 0.60, NT proBNP 905, troponin 0.030, 0.038 and 0.037, chronically elevated in the past -Home cardiac medications: Had not been taking any medications at home but prescribed amiodarone 200 mg p.o. daily, Eliquis 5 mg p.o. twice daily, Lipitor 40 mg p.o. daily, bisoprolol 2.5 mg p.o. daily, Bumex 1 mg p.o. daily, Farxiga 10 mg p.o. daily, Aldactone 12.5 mg p.o. daily, lisinopril 2.5 mg p.o. daily, and Verquvo 2.5 mg p.o. daily -Prior stress test: September 2023 markedly abnormal exam, global hypokinesis with estimated LVEF of 35% and large areas of fixed perfusion defect including the anteroseptal wall and inferior wall -Echocardiogram: 10/24/2024, severe LV dysfunction with severely reduced LV ejection fraction of 20 to 25% -Cardiac catheterization: October 2023 revealed severely calcified coronary arteries, patent stent in the proximal LAD and left circumflex and chronically occluded proximal RCA and mid to distal LAD with a normal LVEDP 11/02/2024 Patient was seen and examined resting in bed. Overall feeling better. Verbalizes importance of compliance with medications and alcohol cessation. Renal function and hemoglobin are stable. PHYSICAL EXAMINATION: This is a 59-year-old gentleman in no apparent distress at the time of my examination. VITAL SIGNS: Reviewed. HEENT: Head is atraumatic, normocephalic. Pupils are equal, round. Sclerae anicteric. Conjunctivae are clear. Mucous membranes of the mouth are moist. Neck is supple. There is no elevated jugular venous pressure. No carotid bruit is heard. CHEST EXAMINATION: Diminished air entry bilaterally. No wheezes rales or rhonchi. Respirations even and nonlabored. HEART EXAMINATION: Heart regular, positive S1 and S2. No S3. No S4. Soft systolic murmur. ABDOMEN: Soft, nontender. Bowel sounds are heard. No organomegaly noted. EXTREMITIES: 2+ peripheral pulses with no evidence of peripheral edema and no ca lf tenderness noted. NEUROLOGIC EXAMINATION: Patient is awake, alert and oriented x3. Assessment: 1. Ischemic cardiomyopathy 2. CAD with prior stenting 3. Paroxysmal atrial fibrillation, currently maintaining sinus mechanism 4. Noncompliance 5. Alcohol abuse Plan: From cardiology's perspective medications were reviewed and we will continue the same. Encourage medication compliance and alcohol cessation. Patient may be discharged home on current medications along with Verquvo as ordered on previous discharge. He will follow-up in the office with Dr. Chaudhari. Nurse practitioner note has been reviewed, I agree with documented findings and plan of care. Patient was seen and examined. Objective - Vital Signs Vital signs: Vital Signs Temp 98.6 F 11/02/24 07:00 Pulse 63 11/02/24 07:00 Resp 16 11/02/24 07:00 BP 95/59 11/02/24 07:00 Pulse Ox 98 11/02/24 07:00 FiO2 Intake & Output 11/01/24 11/02/24 11/02/24 18:59 06:59 18:59 Output Total 1400 Balance -1400 Weight 83.915 kg Output: Urine 1400 Other: Voiding Method Toilet Urinal # Voids 2 - Labs CBC & Chem 7: 11/02/24 06:06 11/02/24 06:06 Labs: Abnormal Lab Results - Last 24 Hours (Table) 11/01/24 11/02/24 11/02/24 Range/Units 09:32 06:06 06:06 RBC 3.93 L (4.40-5.60) X 10*6/uL Hgb 8.7 L (13.0-17.0) g/dL Hct 30.8 L (39.6-50.0) % MCV 78.4 L (80.0-97.0) FL MCH 22.1 L (27.0-32.0) pg MCHC 28.2 L (32.0-37.0) g/dL RDW 21.9 H (11.5-14.5) % Plt Count 445 H (140-440) X 10*3/uL MPV 9.1 L (9.5-12.2) FL Basophils # 0.11 H 0.11 H (0.00-0.10) 10*3/uL Sodium 133 L (137-145) mmol/L Chloride 97 L (98-107) mmol/L Carbon Dioxide 31 H (22-30) mmol/L
--- NOTE | 2024-11-02 12:51 | P.DS ---
Providers Date of admission: 11/01/24 02:41 Attending physician: Jazmin Condon Consults: 11/01/24 02:41 Consult Physician Routine Consulting Provider: Artis Dunlap Consult Reason/Comments: chest pain Do you want consulting provider notified?: Yes Primary care physician: Stated None Hospital Course: 59-year-old male with a known history of coronary artery disease, congestive heart failure EF of around 25% came with complaints of chest pressure-like sensation radiating to the left shoulder which started yesterday on and off, resolved at this time. Patient denied any fever chills coughing patient chest pain is nonpleuritic in nature patient shortness of breath resolved at this time EKG did not show any acute ST-T wave changes chest x-ray is within normal limits patient is on room air saturating well at this time was evaluated by cardiology patient has mild elevation of troponins which is 0.038 and 0.037 and mildly elevated lactic acid and patient is on metformin. Patient was on IV heparin which has been discontinued as per cardiology recommendations. Patient started drinking a couple weeks ago patient was sober for a long time patient is also on alcohol withdrawal precautions at this time. 11/02/2024 Patient is overall clinically doing well not in heart failure exacerbation patient chest pain resolved cardiology is not recommending any further intervention at this time patient will be discharged today. Next PHYSICAL EXAMINATION: GENERAL: The patient is alert and oriented x3, not in any acute distress. Well developed, well nourished. HEENT: Pupils are round and equally reacting to light. EOMI. No scleral icterus. No conjunctival pallor. Normocephalic, atraumatic. No pharyngeal erythema. No thyromegaly. CARDIOVASCULAR: S1 and S2 present. No murmurs, rubs, or gallops. PULMONARY: Chest is clear to auscultation, no wheezing or crackles. ABDOMEN: Soft, nontender, nondistended, normoactive bowel sounds. No palpable organomegaly. MUSCULOSKELETAL: No joint swelling or deformity. EXTREMITIES: No cyanosis, clubbing, or pedal edema. NEUROLOGICAL: Gross neurological examination did not reveal any focal deficits. SKIN: No rashes. Assessment and plan -Chest pain and shortness of breath rule out acute coronary syndrome with only minimal troponin elevation. Patient was monitored overnight no further recommendations from cardiology perspective, if cleared by cardiology for discharge patient will be discharged today - Congestive heart failure ischemic cardiomyopathy chronic systolic function without any acute exacerbation patient was resumed on his heart failure medications at this time. Patient is being evaluated as an outpatient for AICD placement. - Depression for which patient on Cymbalta which was resumed - Atrial fibrillation paroxysmal rate controlled at this time resumed on anticoagulation with Eliquis, amiodarone - Hypertension - COPD without any acute exacerbation-patient saturating well at this time - Alcohol abuse - Alcohol withdrawal for which patient will be monitored and will be on [facility] protocol - Coronary artery disease Plan - Discharge Summary New Discharge Prescriptions: Continue Omeprazole 20 mg PO DAILY DULoxetine HCL [Cymbalta] 30 mg PO DAILY Spironolactone [Aldactone] 12.5 mg PO DAILY 30 Days #15 tab Bumetanide [BUMEX] 1 mg PO DAILY 30 Days #30 tab Apixaban [Eliquis] 5 mg PO BID 30 Days #30 tab Dapagliflozin Propanediol [Farxiga] 10 mg PO DAILY 30 Days #30 tab Nicotine 14Mg/24Hr Patch [Habitrol] 1 patch TRANSDERM DAILY 30 Days #30 patch Atorvastatin [Lipitor] 40 mg PO HS 30 Days #30 tab Bisoprolol [Zebeta] 2.5 mg PO DAILY 30 Days #15 tab lisinopriL [Zestril] 2.5 mg PO DAILY Amiodarone [Cordarone] 200 mg PO DAILY Albuterol Inhaler [Ventolin Hfa Inhaler] 2 puff INHALATION RT-QID PRN PRN Reason: Shortness Of Breath ARIPiprazole IM [Abilify Maintena] 400 mg IM Q28D Folic Acid 1 mg PO DAILY Vericiguat [Verquvo] 2.5 mg PO DAILY 90 Days #90 tablet Ferrous Sulfate [Iron (65 MG Elemental)] 325 mg PO W/LUNCH 30 Days #30 tab Discontinued metFORMIN HCL 500 mg PO BID Discharge Medication List ARIPiprazole IM [Abilify Maintena] 400 mg IM Q28D 09/26/24 [History] Albuterol Inhaler [Ventolin Hfa Inhaler] 2 puff INHALATION RT-QID PRN 09/26/24 [History] Amiodarone [Cordarone] 200 mg PO DAILY 09/26/24 [History] Omeprazole 20 mg PO DAILY 09/26/24 [History] lisinopriL [Zestril] 2.5 mg PO DAILY 09/26/24 [History] DULoxetine HCL [Cymbalta] 30 mg PO DAILY 10/23/24 [History] Folic Acid 1 mg PO DAILY 10/23/24 [History] Vericiguat [Verquvo] 2.5 mg PO DAILY 90 Days #90 tablet 10/25/24 [Rx] Apixaban [Eliquis] 5 mg PO BID 30 Days #30 tab 10/27/24 [Rx] Atorvastatin [Lipitor] 40 mg PO HS 30 Days #30 tab 10/27/24 [Rx] Bisoprolol [Zebeta] 2.5 mg PO DAILY 30 Days #15 tab 10/27/24 [Rx] Bumetanide [BUMEX] 1 mg PO DAILY 30 Days #30 tab 10/27/24 [Rx] Dapagliflozin Propanediol [Farxiga] 10 mg PO DAILY 30 Days #30 tab 10/27/24 [Rx] Ferrous Sulfate [Iron (65 MG Elemental)] 325 mg PO W/LUNCH 30 Days #30 tab 10/27/24 [Rx] Nicotine 14Mg/24Hr Patch [Habitrol] 1 patch TRANSDERM DAILY 30 Days #30 patch 10/27/24 [Rx] Spironolactone [Aldactone] 12.5 mg PO DAILY 30 Days #15 tab 10/27/24 [Rx] Follow up Appointment(s)/Referral(s): None,Stated [Primary Care Provider] - 1-2 days Jaun Chaudhari MD [STAFF PHYSICIAN] - 1 Week Discharge Disposition: HOME SELF-CARE
[2024-11-02 13:27] LABS: Chol/HDL Ratio 3.04 Ratio; LDL Cholesterol,Calculated 97.1 mg/dL (0.0-131.0); VLDL Calculation 10.28 mg/dL (5.00-40.00)
[2024-11-02 14:41] VITALS: PULSE 73; TEMP 98.3
[2024-11-12] MEDS ORDERED: ARIPiprazole IM 400 MG VIAL (NO COST) PHARMACY STOCK IM SCH (09:00)
== END 2024-11-02 15:30 | disposition home or self-care (01) ==
LOC: EC 22:54 → 6NMEDSUR 11-01 02:41
PROVIDERS: ADMIT Hospitalist; ATTEND Hospitalist
DX: I25.5 Ischemic cardiomyopathy (principal); I11.0 Hypertensive heart disease with heart failure; I50.22 Chronic systolic (congestive) heart failure; F10.129 Alcohol abuse with intoxication, unspecified; F10.139 Alcohol abuse with withdrawal, unspecified; Y90.3 Blood alcohol level of 60-79 mg/100 ml; I48.0 Paroxysmal atrial fibrillation; I25.10 Atherosclerotic heart disease of native coronary artery without angina pectoris; J44.9 Chronic obstructive pulmonary disease, unspecified; E87.20 Acidosis, unspecified; D64.9 Anemia, unspecified; E78.5 Hyperlipidemia, unspecified; F17.200 Nicotine dependence, unspecified, uncomplicated; T45.516A Underdosing of anticoagulants, initial encounter; T46.6X6A Underdosing of antihyperlipidemic and antiarteriosclerotic drugs, initial encounter; T44.7X6A Underdosing of beta-adrenoreceptor antagonists, initial encounter; T50.1X6A Underdosing of loop [high-ceiling] diuretics, initial encounter; T38.3X6A Underdosing of insulin and oral hypoglycemic [antidiabetic] drugs, initial encounter; T46.4X6A Underdosing of angiotensin-converting-enzyme inhibitors, initial encounter; Z91.128 Patient's intentional underdosing of medication regimen for other reason; Z79.01 Long term (current) use of anticoagulants; Z79.84 Long term (current) use of oral hypoglycemic drugs; Z79.899 Other long term (current) drug therapy; Z88.5 Allergy status to narcotic agent; Z91.041 Radiographic dye allergy status; Z95.5 Presence of coronary angioplasty implant and graft
CPT/HCPCS: 96376; 96365; 96366; 96375; 99285; 36415; 93005; 83880 ×2; 80061; 80053; 80048; 83605; 83735 ×2; 84484; 85025 ×2; 85610; 85730; 71046; G0378 ×2; G0480; J2270; J1644 ×2; 80320

== ENCOUNTER 2025-01-10 09:09 | Observation (INO) | payer MEDICARE ==
--- NOTE | 2025-01-10 09:26 | ED ---
General Adult HPI - General Stated complaint: Chest pain Time Seen by Provider: 01/10/25 09:15 Source: patient, RN notes reviewed, old records reviewed - History of Present Illness Initial comments: This is a 59-year-old male who presents to the emergency department stating he has had chest pain for last 2 hours of shortness of breath. Patient states he been drinking up until that time. Patient states he had at least 15 beers. Patient states he fell last night did hit the top of his head and hurt his right shoulder. Patient does have some abrasions to both lower legs but states neither of them hurt and he has full range of motion of his knees and ankles. Patient denies any abdominal pain patient has nausea vomiting. - Related Data Home Medications Medication Instructions Recorded Confirmed ARIPiprazole IM [Abilify Maintena] 400 mg IM Q28D 09/26/24 11/01/24 Albuterol Inhaler [Ventolin Hfa 2 puff INHALATION RT-QID PRN 09/26/24 11/01/24 Inhaler] Amiodarone [Cordarone] 200 mg PO DAILY 09/26/24 11/01/24 Omeprazole 20 mg PO DAILY 09/26/24 11/01/24 lisinopriL [Zestril] 2.5 mg PO DAILY 09/26/24 11/01/24 DULoxetine HCL [Cymbalta] 30 mg PO DAILY 10/23/24 11/01/24 Folic Acid 1 mg PO DAILY 10/23/24 11/01/24 Previous Rx's Medication Instructions Recorded Vericiguat [Verquvo] 2.5 mg PO DAILY 90 Days #90 tablet 10/25/24 Apixaban [Eliquis] 5 mg PO BID 30 Days #30 tab 10/27/24 Atorvastatin [Lipitor] 40 mg PO HS 30 Days #30 tab 10/27/24 Bisoprolol [Zebeta] 2.5 mg PO DAILY 30 Days #15 tab 10/27/24 Bumetanide [BUMEX] 1 mg PO DAILY 30 Days #30 tab 10/27/24 Dapagliflozin Propanediol [Farxiga] 10 mg PO DAILY 30 Days #30 tab 10/27/24 Ferrous Sulfate [Iron (65 MG 325 mg PO W/LUNCH 30 Days #30 tab 10/27/24 Elemental)] Nicotine 14Mg/24Hr Patch [Habitrol] 1 patch TRANSDERM DAILY 30 Days 10/27/24 #30 patch Spironolactone [Aldactone] 12.5 mg PO DAILY 30 Days #15 tab 10/27/24 Allergies Allergy/AdvReac Type Severity Reaction Status Date / Time Iodinated Contrast Media Allergy Itching-see Verified 01/10/25 09:28 comment fentanyl AdvReac Itching Verified 01/10/25 09:28 Review of Systems ROS Statement: Those systems with pertinent positive or pertinent negative responses have been documented in the HPI. ROS Other: All systems not noted in ROS Statement are negative. Past Medical History Past Medical History: COPD, GERD/Reflux, GI Bleed, Hypertension, Myocardial Infarction ([place]), Pneumonia, Skin Disorder Additional Past Medical History / Comment(s): ETOH abuse with delirium tremors, lower GI bleed, IBS, chronic iron deficiency anemia, hypomagnesemia, hyperbilirubinemia, anorexia, vertigo, nephrolithiasis-passed stone on his own, chronic low back/cervical pain, DDD, kyphosis, scoliosis, coccyx pressure ulcer pt states is mostly healed. Dry and itchy skin back in high school. 2 heart attacks, one in December (2020) second in February (2020). Last Myocardial Infarction Date:: june 2023 History of Any Multi-Drug Resistant Organisms: None Reported Past Surgical History: Bariatric Surgery, Heart Catheterization With Stent, Hernia Repair, Orthopedic Surgery, Tonsillectomy Additional Past Surgical History / Comment(s): Right inner Forearm-metal plate, gastric bypass, incisional hernia surgery x2, EGDs, colonoscopies. 2 Stents placed in December 2020; bilateral knee surgeries Past Anesthesia/Blood Transfusion Reactions: No Reported Reaction Date of Last Stent Placement:: december 2020 Past Psychological History: Anxiety, Bipolar, Depression, PTSD Smoking Status: Current every day smoker Past Alcohol Use History: Abuse, Daily Past Drug Use History: Marijuana - Past Family History Mother History Unknown: Yes Family Medical History: Hypertension Additional Family Medical History / Comment(s): Lupus. Mother is living. Father History Unknown: Yes Family Medical History: Liver Disease Additional Family Medical History / Comment(s): ETOH abuse. of cirrhosis complications. General Exam - General Exam Comments Initial Comments: GENERAL: Patient is well-developed and well-nourished. Patient is nontoxic and well-hy drated and is in mild distress. ENT: Neck is soft and supple. No significant lymphadenopathy is noted. Oropharynx is clear. Moist mucous membranes. Neck has full range of motion without eliciting any pain. EYES: The sclera were anicteric and conjunctiva were pink and moist. Extraocular move ments were intact and pupils were equal round and reactive to light. Eyelids were unremarkable. PULMONARY: Unlabored respirations. Good breath sounds bilaterally. No audible rales rhonchi or wheezing was noted. CARDIOVASCULAR: There is a regular rate and rhythm without any murmurs gallops or rubs. ABDOMEN: Soft and nontender with normal bowel sounds. SKIN: Patient has abrasions to the lateral right leg as well as the anterior aspect of the upper left leg. Patient has abrasions to the right shoulder NEUROLOGIC: Patient is alert and oriented x3. Cranial nerves II through XII are grossly intact. Motor and sensory are also intact. Normal speech, volume and content. Symmetrical smile. MUSCULOSKELETAL: Patient has full range of motion of all 4 extremities. Patient has significant tenderness to the lateral right shoulder LYMPHATICS: No significant lymphadenopathy is noted PSYCHIATRIC: Normal psychiatric evaluation. 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 EKG shows sinus tachycardia 103 bpm there is an occasional PVC CA interval is 161 QRS is 126 QT interval is 413 QTc is 472. Patient's EKG shows no ST segment elevation or depression Was pt. sent in by a medical professional or institution (, PA, HEALTH CARE ANALYST, urgent care, hospital, or usp...) When possible be specific @ -No Did you speak to anyone other than the patient for history (EMS, parent, family, police, friend...)? What history was obtained from this source @ -No Did you review nursing and triage notes (agree or disagree)? Why? @ -I reviewed and agree with nursing and triage notes Were old charts reviewed (outside hosp., previous admission, EMS record, old EKG, old radiological studies, urgent care reports/EKG's, usp records)? Report findings @ -No old charts were reviewed Differential Diagnosis? @ -Differential Chest Pain: Stable Angina, Unstable Angina, STEMI, NSTEMI Aortic Dissection, Pneumothorax, Musculoskeletal, Esophageal Spasm GERD, Cholecystitis, Pancreatitis, Zoster, th is is not meant to be an all-inclusive list. EKG interpreted by me (3pts min.). @ -As above X-rays interpreted by me (1pt min.). @ -Chest x-ray shows no acute abnormality. X-ray of the shoulder shows no acute abnormality CT interpreted by me (1pt min.). @ -CT of the brain and C-spine showed no acute abnormality U/S interpreted by me (1pt. min.). @ -None done What testing was considered but not performed or refused? (CT, X-rays, U/S, labs)? Why? @ -None What meds were considered but not given or refused? Why? @ -None Did you discuss the management of the patient with other professionals (pro fessionals i.e. , PA, HEALTH CARE ANALYST, lab, RT, psych nurse, social work case manager, supervisor mechanic boilermaking, teacher, equal employment opportunity officer, bottle caser)? Give summary @ -I spoke with sound physicians agreed to admit the patient admit the patient for admitting orders Was smoking cessation discussed for >3mins.? @ -No Was critical care preformed (if so, how long)? @ -No Were there social determinants of health that impacted care today? How? (Homelessness, low income, unemployed, alcoholism, drug addiction, transportation, low edu. Level, literacy, decrease access to med. care, penitentiary, rehab)? @ -No Was there de-escalation of care discussed even if they declined (Discuss DNR or withdrawal of care, Hospice)? DNR status @ -No What co-morbidities impacted this encounter? (DM, HTN, Smoking, COPD, CAD, Cancer, CVA, ARF, Chemo, Hep., AIDS, mental health diagnosis, sleep apnea, morbid obesity)? @ -None Was patient admitted / discharged? Hospital course, mention meds given and route, prescriptions, significant lab abnormalities, going to OR and other pertinent info. @ -Patient needed pain medication for the shoulder there which showed no abnormality on the x-ray and patient did receive Toradol. Patient will also be admitted to [facility] with the [facility] protocol Undiagnosed new problem with uncertain prognosis? @ -No Drug Therapy requiring intensive monitoring for toxicity (Heparin, Nitro, Insulin, Cardizem)? @ -No Were any procedures done? @ -No Diagnosis/symptom? @ -Chest pain Acute, or Chronic, or Acute on Chronic? @ -Acute Uncomplicated (without systemic symptoms) or Complicated (systemic symptoms)? @ -Complicate Side effects of treatment? @ -No Exacerbation, Progression, or Severe Exacerbation? @ -No Poses a threat to life or bodily function? How? (Chest pain, [place], [place], pneumonia, PE, COPD, DKA, ARF, appy, cholecystitis, CVA, Diverticulitis, Homicidal, Suicidal, threat to staff... and all critical care pts) @ -Yes this can lead to an [place] and endorgan dysfunction Diagnosis/symptom? @ -Shoulder contusion Acute, or Chronic, or Acute on Chronic? @ -Acute Uncomplicated (without systemic symptoms) or Complicated (systemic symptoms)? @ -Uncomplicated Side effects of treatment? @ -None Exacerbation, Progression, or Severe Exacerbation] @ -No Poses a threat to life or bodily function? @ -No Diagnosis/symptom? @ -Alcohol abuse Acute, or Chronic, or Acute on Chronic? @ -Acute Uncomplicated (without systemic symptoms) or Complicated (systemic symptoms)? @ -Complicated Side effects of treatment? @ -None Exacerbation, Progression, or Severe Exacerbation] @ -No Poses a threat to life or bodily function? @ -No - Lab Data Result diagrams: 01/10/25 09:52 01/10/25 09:52 Lab Results 01/10/25 01/10/25 01/10/25 Range/Units 09:52 09:52 09:52 WBC 11.38 H (4.50-10.00) 10*3/uL RBC 4.22 L (4.40-5.60) 10*6/uL Hgb 10.9 L (13.0-17.0) g/dL Hct 35.4 L (39.6-50.0) % MCV 83.9 (80.0-97.0) fL MCH 25.8 L (27.0-32.0) pg MCHC 30.8 L (32.0-37.0) g/dL Plt Count 391 (140-440) 10*3/uL MPV 8.4 L (9.5-12.2) fL Immature Gran % (Auto) 0.4 % Neutrophils % 74.5 % Lymphocytes % 14.9 % Monocytes % 9.2 % Eosinophils % 0.3 % Basophils % 0.7 % Immature Gran # 0.05 H (0.00-0.04) 10*3/uL Neutrophils # 8.48 H (1.80-7.70) 10*3/uL Lymphocytes # 1.69 (0.90-5.00) 10*3/uL Monocytes # 1.05 H (0.20-1.00) 10*3/uL Eosinophils # 0.03 L (0.04-0.35) 10*3/uL Basophils # 0.08 (0.00-0.10) 10*3/uL PT 10.8 (10.0-12.5) sec INR 1.0 (<1.2) APTT 23.6 (22.0-30.0) sec Sodium 140 (137-145) mmol/L Potassium 4.1 (3.5-5.1) mmol/L Chloride 100 (98-107) mmol/L Carbon Dioxide 22 (22-30) mmol/L Anion Gap 18 mmol/L BUN 15 (9-20) mg/dL Creatinine 0.74 (0.66-1.25) mg/dL Est GFR (CKD-EPI)AfAm >90 (>60 ml/min/1.73 sqM) Est GFR (CKD-EPI)NonAf >90 (>60 ml/min/1.73 sqM) Glucose 125 H (74-99) mg/dL Calcium 8.6 (8.4-10.2) mg/dL Magnesium 1.7 (1.6-2.3) mg/dL Total Bilirubin 0.6 (0.2-1.3) mg/dL AST 80 H (17-59) U/L ALT 29 (4-49) U/L Alkaline Phosphatase 127 H (38-126) U/L Troponin I (0.000-0.034) ng/mL NT-Pro-B Natriuret Pep 386 pg/mL Total Protein 7.0 (6.3-8.2) g/dL Albumin 4.2 (3.5-5.0) g/dL Serum Alcohol 127 mg/dL 01/10/25 Range/Units 09:52 WBC (4.50-10.00) 10*3/uL RBC (4.40-5.60) 10*6/uL Hgb (13.0-17.0) g/dL Hct (39.6-50.0) % MCV (80.0-97.0) fL MCH (27.0-32.0) pg MCHC (32.0-37.0) g/dL Plt Count (140-440) 10*3/uL MPV (9.5-12.2) fL Immature Gran % (Auto) % Neutrophils % % Lymphocytes % % Monocytes % % Eosinophils % % Basophils % % Immature Gran # (0.00-0.04) 10*3/uL Neutrophils # (1.80-7.70) 10*3/uL Lymphocytes # (0.90-5.00) 10*3/uL Monocytes # (0.20-1.00) 10*3/uL Eosinophils # (0.04-0.35) 10*3/uL Basophils # (0.00-0.10) 10*3/uL PT (10.0-12.5) sec INR (<1.2) APTT (22.0-30.0) sec Sodium (137-145) mmol/L Potassium (3.5-5.1) mmol/L Chloride (98-107) mmol/L Carbon Dioxide (22-30) mmol/L Anion Gap mmol/L BUN (9-20) mg/dL Creatinine (0.66-1.25) mg/dL Est GFR (CKD-EPI)AfAm (>60 ml/min/1.73 sqM) Est GFR (CKD-EPI)NonAf (>60 ml/min/1.73 sqM) Glucose (74-99) mg/dL Calcium (8.4-10.2) mg/dL Magnesium (1.6-2.3) mg/dL Total Bilirubin (0.2-1.3) mg/dL AST (17-59) U/L ALT (4-49) U/L Alkaline Phosphatase (38-126) U/L Troponin I 0.074 H* (0.000-0.034) ng/mL NT-Pro-B Natriuret Pep pg/mL Total Protein (6.3-8.2) g/dL Albumin (3.5-5.0) g/dL Serum Alcohol mg/dL Disposition Clinical Impression: Alcohol abuse, Shoulder contusion, Chest pain Disposition: ADMITTED IP TO THIS HOSP Referrals: None,Stated [Primary Care Provider] - 1-2 days Time of Disposition: 13:22
[2025-01-10] MEDS: NITROGLYCERIN OINT 1 INCH/GM PACKET TOPICAL STA (09:54)
[2025-01-10] MEDS: SODIUM CHLORIDE 0.9% 1,000 ML IV STA (09:55)
[2025-01-10] MEDS: ASPIRIN 81 MG PO STA (09:58)
[2025-01-10 10:13] LABS: Basophils # (A) 0.08 10*3/uL (0.00-0.10); Basophils % (A) 0.7 %; Eosinophils # (A) 0.03 10*3/uL (0.04-0.35); Eosinophils % (A) 0.3 %; HCT 35.4 % (39.6-50.0); HGB 10.9 g/dL (13.0-17.0); Lymphocytes # (A) 1.69 10*3/uL (0.90-5.00); Lymphocytes % (A) 14.9 %; MCH 25.8 pg (27.0-32.0); MCHC 30.8 g/dL (32.0-37.0); MCV 83.9 fL (80.0-97.0); Mean Platelet Volume 8.4 fL (9.5-12.2); Monocytes # (A) 1.05 10*3/uL (0.20-1.00); Monocytes % (A) 9.2 %; Neutrophils # (A) 8.48 10*3/uL (1.80-7.70); Neutrophils % (A) 74.5 %; Platelet Count 391 10*3/uL (140-440); RBC 4.22 10*6/uL (4.40-5.60); RDW 19.1 % (11.5-14.5); WBC 11.38 10*3/uL (4.50-10.00)
[2025-01-10 10:24] LABS: Partial Thromboplastin Time 23.6 sec (22.0-30.0); Prothrombin Time 10.8 sec (10.0-12.5)
[2025-01-10 10:28] LABS: ALT 29 U/L (4-49); AST 80 U/L (17-59); African American GFR (CKD) >90 (>60 ml/min/1.73 sqM); Albumin 4.2 g/dL (3.5-5.0); Alkaline Phosphatase 127 U/L (38-126); Anion Gap 18 mmol/L; Blood Urea Nitrogen 15 mg/dL (9-20); Calcium 8.6 mg/dL (8.4-10.2); Carbon Dioxide 22 mmol/L (22-30); Chloride 100 mmol/L (98-107); Glucose 125 mg/dL (74-99); Magnesium 1.7 mg/dL (1.6-2.3); Non-African American GFR(CKD) >90 (>60 ml/min/1.73 sqM); Potassium 4.1 mmol/L (3.5-5.1); Sodium 140 mmol/L (137-145); Total Bilirubin 0.6 mg/dL (0.2-1.3)
[2025-01-10 10:34] LABS: Alcohol 127 mg/dL
[2025-01-10 10:37] LABS: NT-Pro-B-Type Natriuretic Pept 386 pg/mL
--- NOTE | 2025-01-10 11:29 | XR ---
Chest, 2 view. CLINICAL INDICATION: Male, 59 years old with history of Chest Pain COMPARISON: 09/26/2024 TECHNIQUE: PA and lateral views the chest are obtained. FINDINGS: There is persistent moderate elevation of the left hemidiaphragm. There is mild diffuse interstitial opacity less prominent compared to the prior study and therefore m ost likely represents mild pulmonary vascular congestion or edema. There is a retrocardiac opacity wh ich could represent pulmonary edema or pneumonic infiltrate There is no pleural effusion or pneumothorax. Cardiac silhouette is mildly prominent. The osseous structures are intact IMPRESSION: 1. Persistent mild cardiomegaly. 2. Mild pulmonary vascular congestion and interstitial edema. Findings suggest mild CHF. 3. Persistent moderate elevation of the left hemidiaphragm. 4. Retrocardiac opacity consistent with pneumonic infiltrate or pulmonary edema. [facility], , 01/10/2025 11:27 AM
--- NOTE | 2025-01-10 11:31 | XR ---
Right shoulder. HISTORY: Pain following fall. COMPARISON: 12/03/2021. TECHNIQUE: 3 views of the right shoulder were obtained. There is no fracture, dislocation or soft tissue abnormality. The glenohumeral joint is intact and we ll preserved. IMPRESSION: No evidence of acute trauma or osteoarthritis. [facility] , 01/10/2025 11:29 AM
--- NOTE | 2025-01-10 11:36 | CT ---
EXAMINATION TYPE: CT brain [place] wo con DATE OF EXAM: 01/10/2025 COMPARISON: 06/13/2024 CLINICAL INDICATION: Male, 59 years old with history of Trauma; [facility], Fall TECHNIQUE: CT scan of the head and cervical spine are performed without contrast. CT DLP: 1854.[address] CTDI: mGy Automated exposure control for dose reduction was used. Findings: Head CT: Ventricles, basal cisterns and sulci over convexities within normal limits for the patient's age and there is no mass, mass effect or shift of midline structures. No abnormal density is seen throughout the brain parenchyma and there is no acute intra or extra-axia l hemorrhage. Posterior fossa including the brainstem, fourth ventricle and cerebellar pontine angles are grossly n ormal. The intraorbital contents appear normal and symmetric. Visualized paranasal sinuses are well aerated. CT cervical spine: Craniovertebral junction relationships and prevertebral soft tissues are normal. The cervical vertebral segments are normal in height and alignment and there is no fracture subluxati on. There is mild disc space narrowing and spondylosis at the C2-3, C3-4 C4-5 and C5-6 levels and mild de generative disc disease. There is mild facet and uncovertebral joint arthropathy in the mid to lower cervical spine. The bony cervical canal is widely patent. There is mild bony neural foraminal encroachment at the C2- 3 level on the left and mild to moderate at the C3-4 level on the left The paraspinal soft tissues un remarkable. IMPRESSION: 1. Head CT: No acute bleed or mass effect.. Mild age appropriate senescent changes 2. CT cervical spine: No acute trauma. Mild degenerative disc disease and osteoarthritis [facility], , 01/10/2025 11:33 AM
[2025-01-10] MEDS: KETOROLAC 15 MG/ML 1 ML VIAL IVP STA (12:39)
[2025-01-10] MEDS ORDERED: CALCIUM CARBONATE 500 MG CHEWABLE PO PRN (13:17)
[2025-01-10] MEDS ORDERED: PROCHLORPERAZINE 5 MG TAB PO PRN (13:17)
[2025-01-10] MEDS ORDERED: LORazepam 1 MG TAB PO PRN (13:17)
[2025-01-10] MEDS ORDERED: ONDANSETRON 4 MG/2 ML VIAL IVP PRN (13:17)
[2025-01-10] MEDS ORDERED: SODIUM CHLORIDE 0.9% 1,000 ML IV SCH (13:30)
--- NOTE | 2025-01-10 13:30 | P.HPIM ---
History of Present Illness H&P Date: 01/10/25 Patient is a 59-year-old male with past medical history of CAD status post stenting x 3, ischemic cardiomyopathy EF 30 to 35%, paroxysmal A-fib on Eliquis, HTN, HLD, bipolar disorder, anxiety, depression, PTSD, COPD, nicotine dependence, alcohol abuse, who presented to the ER on 01/10/2025 with chest pain that started around 6 in the morning patient shared that he had at least 15 beers prior to that with the last 1 in the morning. Also reported a fall last night with head trauma and right shoulder trauma. Patient does have an abrasion over his right shoulder, and multiple abrasions over lower extremities. He denies any shortness of breath, states that the pain is located in the left- sided chest, is nonradiating, gets better with rest, denies abdominal pain, changes in bowel habits, dysuria. Of note, patient was previously offered LifeVest in October 2024 which he declined. On arrival afebrile, tachycardic in 100s, normotensive, satting well on room air. Blood work revealed leukocytosis 11.3, hemoglobin 10.9, improved from previous 8.7 in October, platelet count 391, coagulation panel normal, sodium 1 potassium, bicarb, creatinine WNL, troponin elevated 0.0 74, alcohol level 127. Patient will be admitted for further evaluation of chest pain with cardiology consultation, alcohol detox. Pertinent positives and negatives as discussed in HPI, a complete review of systems was performed and all other systems are negative. Patient seen and examined at bedside. [] Vital signs reviewed General: Alcohol smell, no distress, appears at stated age Derm: warm, dry Head: atraumatic, normocephalic, symmetric Eyes: EOMI, no lid lag, anicteric sclera, pupils equal round reactive to light ENT: Nose and ears atraumatic Neck: No thyromegaly, supple Mouth: no lip lesion, mucus membranes moist Cardiovascular: S1S2 reg, murmur, no edema Lungs: clear to auscultation bilateral, no rhonchi, no rales, no wheeze, no accessory muscle use Abdominal: soft, nontender to palpation, no guarding, no appreciable organomegaly Ext: no gross muscle atrophy, muscle strength muscle strength 5 out of 5 in all 4 extremities, no contractures, bilateral lower extremity abrasions right shoulder abrasion Neuro: CN II-XII grossly intact Psych: Alert, oriented, appropriate affect Assessment/Plan: Chest pain Elevated troponins Ischemic cardiomyopathy Coronary artery disease status post stenting Paroxysmal atrial fibrillation Hypertension Hyperlipidemia -Cardiology consulted -Trend troponins - Recent echo reviewed/2024, EF of 20 to 25% with biatrial enlargement. -Telemetry monitoring -Once reconciled, continue cardiac medication regimen with aspirin 81 mg daily, Eliquis 5 mg twice daily, amiodarone 200 mg daily, Farxiga 10 mg daily, lisinopril 2.5 mg daily, metoprolol 25 mg twice daily, and Aldactone 12.5 mg daily. -Continue daily weights with close monitoring of I's and O's. -Continue close monitoring of renal function and electrolytes chronic iron deficiency anemia -Continue ferrous sulfate 325 mg daily. COPD with continued nicotine dependence, not in acute exacerbation -Recommend smoking cessation. Patient started on nicotine patch 14 mg daily. -Continue DuoNebs 4 times daily as needed for wheezing/shortness of breath. Anxiety with depression PTSD Alcohol abuse with binge drinking behaviors -Patient denies recent alcohol use. Will monitor for signs/symptoms of withd jasper. -Start CIWA with Ativan, daily folic acid 1 mg, thiamine 100 mg, social work consult -Continue Cymbalta 30 mg daily. - Alcohol abstinence was discussed and strongly recommended The patient is admitted with an anticipated left than 2 midnight stay as observation status for evaluation of chest pain, alcohol intoxication. CODE STATUS: DNR/DNI DVT prophylaxis: Eliquis Anticipated discharge date: TBD Anticipated discharge place: [facility] A total of 40 minutes was spent on the care of this complex patient more than 50% of the time was spent in counseling and care coordination. Past Medical History Past Medical History: COPD, GERD/Reflux, GI Bleed, Hypertension, Myocardial Infarction (VT), Pneumonia, Skin Disorder Additional Past Medical History / Comment(s): ETOH abuse with delirium tremors, lower GI bleed, IBS, chronic iron deficiency anemia, hypomagnesemia, hyperbilirubinemia, anorexia, vertigo, nephrolithiasis-passed stone on his own, chronic low back/cervical pain, DDD, kyphosis, scoliosis, coccyx pressure ulcer pt states is mostly healed. Dry and itchy skin back in high school. 2 heart attacks, one in December (2020) second in February (2020). Last Myocardial Infarction Date:: june 2023 History of Any Multi-Drug Resistant Organisms: None Reported Past Surgical History: Bariatric Surgery, Heart Catheterization With Stent, Fadia ia Repair, Orthopedic Surgery, Tonsillectomy Additional Past Surgical History / Comment(s): Right inner Forearm-metal plate, gastric bypass, incisional hernia surgery x2, EGDs, colonoscopies. 2 Stents placed in December 2020; bilateral knee surgeries Past Anesthesia/Blood Transfusion Reactions: No Reported Reaction Date of Last Stent Placement:: december 2020 Past Psychological History: Anxiety, Bipolar, Depression, PTSD Smoking Status: Current every day smoker Past Alcohol Use History: Abuse, Daily Past Drug Use History: Marijuana - Past Family History Mother History Unknown: Yes Family Medical History: Hypertension Additional Family Medical History / Comment(s): Lupus. Mother is living. Father History Unknown: Yes Family Medical History: Liver Disease Additional Family Medical History / Comment(s): ETOH abuse. of cirrhosis complications. Medications and Allergies Home Medications Medication Instructions Recorded Confirmed Type ARIPiprazole IM [Abilify Maintena] 400 mg IM Q28D 09/26/24 11/01/24 History Albuterol Inhaler [Ventolin Hfa 2 puff INHALATION RT-QID PRN 09/26/24 11/01/24 History Inhaler] Amiodarone [Cordarone] 200 mg PO DAILY 09/26/24 11/01/24 History Omeprazole 20 mg PO DAILY 09/26/24 11/01/24 History lisinopriL [Zestril] 2.5 mg PO DAILY 09/26/24 11/01/24 History DULoxetine HCL [Cymbalta] 30 mg PO DAILY 10/23/24 11/01/24 History Folic Acid 1 mg PO DAILY 10/23/24 11/01/24 History Vericiguat [Verquvo] 2.5 mg PO DAILY 90 Days #90 tablet 10/25/24 11/01/24 Rx Apixaban [Eliquis] 5 mg PO BID 30 Days #30 tab 10/27/24 11/01/24 Rx Atorvastatin [Lipitor] 40 mg PO HS 30 Days #30 tab 10/27/24 11/01/24 Rx Bisoprolol [Zebeta] 2.5 mg PO DAILY 30 Days #15 tab 10/27/24 11/01/24 Rx Bumetanide [BUMEX] 1 mg PO DAILY 30 Days #30 tab 10/27/24 11/01/24 Rx Dapagliflozin Propanediol [Farxiga] 10 mg PO DAILY 30 Days #30 tab 10/27/24 11/01/24 Rx Ferrous Sulfate [Iron (65 MG 325 mg PO W/LUNCH 30 Days #30 tab 10/27/24 11/01/24 Rx Elemental)] Nicotine 14Mg/24Hr Patch [Habitrol] 1 patch TRANSDERM DAILY 30 Days 10/27/24 11/01/24 Rx #30 patch Spironolactone [Aldactone] 12.5 mg PO DAILY 30 Days #15 tab 10/27/24 11/01/24 Rx Allergies Allergy/AdvReac Type Severity Reaction Status Date / Time Iodinated Contrast Media Allergy Itching-see Verified 01/10/25 09:28 comment fentanyl AdvReac Itching Verified 01/10/25 09:28 Physical Exam Vitals: Vital Signs Temp Pulse Pulse Resp BP Pulse Ox 01/10/25 12:35 111 H 18 122/74 95 01/10/25 11:25 98.5 F 108 H 18 111/70 95 01/10/25 10:00 103 H 20 01/10/25 09:18 99.1 F 103 H 18 106/68 93 L Intake and Output 01/09/25 01/10/25 01/10/25 22:59 06:59 14:59 Other: Weight 81.647 kg Results CBC & Chem 7: 01/10/25 09:52 01/10/25 09:52 Labs: Abnormal Lab Results - Last 24 Hours (Table) 01/10/25 01/10/25 01/10/25 Range/Units 09:52 09:52 09:52 WBC 11.38 H (4.50-10.00) 10*3/uL RBC 4.22 L (4.40-5.60) 10*6/uL Hgb 10.9 L (13.0-17.0) g/dL Hct 35.4 L (39.6-50.0) % MCH 25.8 L (27.0-32.0) pg MCHC 30.8 L (32.0-37.0) g/dL MPV 8.4 L (9.5-12.2) fL Immature Gran # 0.05 H (0.00-0.04) 10*3/uL Neutrophils # 8.48 H (1.80-7.70) 10*3/uL Monocytes # 1.05 H (0.20-1.00) 10*3/uL Eosinophils # 0.03 L (0.04-0.35) 10*3/uL Glucose 125 H (74-99) mg/dL AST 80 H (17-59) U/L Alkaline Phosphatase 127 H (38-126) U/L Troponin I 0.074 H* (0.000-0.034) ng/mL
[2025-01-10] MEDS: LORazepam 1 MG TAB PO PRN ×2 (14:35→19:04)
[2025-01-10] MEDS: IPRATROPIUM-ALBUTEROL 3 ML NEB INHALATION PRN (14:52)
[2025-01-10] MEDS: ATORVASTATIN 40 MG TAB PO SCH (20:59)
[2025-01-10] MEDS: LORazepam 0.5 MG TAB PO PRN (21:02)
[2025-01-11 08:31] LABS: Basophils # (A) 0.09 10*3/uL (0.00-0.10); Basophils % (A) 1.1 %; Eosinophils % (A) 2.3 %; HCT 36.2 % (39.6-50.0); HGB 10.8 g/dL (13.0-17.0); Lymphocytes # (A) 1.15 10*3/uL (0.90-5.00); Lymphocytes % (A) 13.5 %; MCH 25.5 pg (27.0-32.0); MCHC 29.8 g/dL (32.0-37.0); MCV 85.6 fL (80.0-97.0); Mean Platelet Volume 8.8 fL (9.5-12.2); Monocytes # (A) 0.84 10*3/uL (0.20-1.00); Monocytes % (A) 9.8 %; Neutrophils # (A) 6.24 10*3/uL (1.80-7.70); Neutrophils % (A) 73.2 %; Platelet Count 358 10*3/uL (140-440); RBC 4.23 10*6/uL (4.40-5.60); RDW 18.8 % (11.5-14.5); WBC 8.53 10*3/uL (4.50-10.00)
[2025-01-11 09:03] LABS: ALT 34 U/L (4-49); AST 83 U/L (17-59); African American GFR (CKD) >90 (>60 ml/min/1.73 sqM); Albumin 3.7 g/dL (3.5-5.0); Albumin/Globulin Ratio 1.3; Alkaline Phosphatase 140 U/L (38-126); Anion Gap 7 mmol/L; Blood Urea Nitrogen 13 mg/dL (9-20); Calcium 8.3 mg/dL (8.4-10.2); Carbon Dioxide 28 mmol/L (22-30); Chloride 102 mmol/L (98-107); Globulin 2.9 g/dL; Glucose 116 mg/dL (74-99); Magnesium 1.9 mg/dL (1.6-2.3); Non-African American GFR(CKD) >90 (>60 ml/min/1.73 sqM); Sodium 137 mmol/L (137-145); Total Protein 6.6 g/dL (6.3-8.2)
[2025-01-11] MEDS: THIAMINE 100 MG TAB PO SCH (09:07)
[2025-01-11] MEDS: ASPIRIN 81 MG PO SCH (09:07)
[2025-01-11] MEDS: FOLIC ACID 1 MG TAB PO SCH (09:07)
[2025-01-11] MEDS ORDERED: ALBUTEROL NEBULIZED 2.5 MG/3 ML INHALATION PRN (11:45)
[2025-01-11] MEDS: LIDOCAINE 4% PATCH TOPICAL SCH (12:03)
[2025-01-11] MEDS: HYDROcodone/APAP 5-325MG 1 EACH TAB PO PRN (12:03)
--- NOTE | 2025-01-11 13:10 | P.PN ---
Subjective Progress Note Date: 01/11/25 Patient is a 59-year-old male with past medical history of CAD status post stenting x 3, ischemic cardiomyopathy EF 30 to 35%, paroxysmal A-fib on Eliquis, HTN, HLD, bipolar disorder, anxiety, depression, PTSD, COPD, nicotine dependence, alcohol abuse, who presented to the ER on 01/10/2025 with chest pain that started around 6 in the morning patient shared that he had at least 15 beers prior to that with the last 1 in the morning. Also reported a fall last night with head trauma and right shoulder trauma. Patient does have an abrasion over his right shoulder, and multiple abrasions over lower extremities. He denies any shortness of breath, states that the pain is located in the left-si ded chest, is nonradiating, gets better with rest, denies abdominal pain, changes in bowel habits, dysuria. Of note, patient was previously offered LifeVest in October 2024 which he declined. On arrival afebrile, tachycardic in 100s, normotensive, satting well on room air. Blood work revealed leukocytosis 11.3, hemoglobin 10.9, improved from previous 8.7 in October, platelet count 391, coagulation panel normal, sodium 1 potassium, bicarb, creatinine WNL, troponin elevated 0.0 74, alcohol level 127. Patient will be admitted for further evaluation of chest pain with cardiology consultation, alcohol detox. 01/11: Seen and examined at bedside, no acute events overnight, feels a little shaky from alcohol withdrawal, denies any shortness of breath, chest pain is subsiding. Complains of right shoulder pain, will provide with lidocaine patch, Tylenol as needed and one-time Sylvester 5 as needed. Vital signs are stable including heart rate and blood pressure, satting well on room air. Leukocytosis resolved, hemoglobin stable 10.8, normal sodium, potassium, bicarb, creatinine 0.6, glucose controlled, troponin peaked at 0.074. Patient seen and examined at bedside. Vital signs reviewed General: , no distress, appears at stated age Derm: warm, dry Head: atraumatic, normocephalic, symmetric Eyes: EOMI, no lid lag, anicteric sclera, pupils equal round reactive to light ENT: Nose and ears atraumatic Neck: No thyromegaly, supple Mouth: no lip lesion, mucus membranes moist Cardiovascular: S1S2 reg, murmur, no edema Lungs: clear to auscultation bilateral, no rhonchi, no rales, no wheeze, no ac cessory muscle use Abdominal: soft, nontender to palpation, no guarding, no appreciable organomegaly Ext: no gross muscle atrophy, muscle strength muscle strength 5 out of 5 in all 4 extremities, no contractures, bilateral lower extremity abrasions right shoulder abrasion Neuro: CN II-XII grossly intact Psych: Alert, oriented, appropriate affect Assessment/Plan: Chest pain Elevated troponins Ischemic cardiomyopathy Coronary artery disease status post stenting Paroxysmal atrial fibrillation Hypertension Hyperlipidemia -Cardiology consulted -Trend troponins - Recent echo /2024, EF of 20 to 25% with biatrial enlargement. -Telemetry monitoring -, continue cardiac medication regimen with aspirin 81 mg daily, Eliquis 5 mg twice daily, amiodarone 200 mg daily, Farxiga 10 mg daily, lisinopril 2.5 mg daily, metoprolol 25 mg twice daily, and Aldactone 12.5 mg daily. -Continue daily weights with close monitoring of I's and O's. -Continue close monitoring of renal function and electrolytes Right shoulder pain status post fall -Had a fall main intoxicated with EtOH -X-ray negative -Lidocaine patch, Tylenol 650 as needed, one-time Sylvester 5 as needed chronic iron deficiency anemia -Continue ferrous sulfate 325 mg daily. COPD with continued nicotine dependence, not in acute exacerbation -Recommend smoking cessation. Patient started on nicotine patch 14 mg daily. -Continue DuoNebs 4 times daily as needed for wheezing/shortness of breath. Anxiety with depression PTSD Alcohol abuse with binge drinking behaviors -Patient denies recent alcohol use. Will monitor for signs/symptoms of withdrawal. -Start CIWA with Ativan, daily folic acid 1 mg, thiamine 100 mg, social work consult -Continue Cymbalta 30 mg daily. - Alcohol abstinence was discussed and strongly recommended The patient is admitted with an anticipated left than 2 midnight stay as observation status for evaluation of chest pain, alcohol intoxication. CODE STATUS: DNR/DNI DVT prophylaxis: Eliquvee Anticipated discharge date: TBD Anticipated discharge place: TBD Objective - Vital Signs Vital signs: Vital Signs Temp 98.2 F 01/11/25 07:35 Pulse 99 01/11/25 07:35 Resp 20 01/11/25 07:35 BP 128/88 01/11/25 07:35 Pulse Ox 98 01/11/25 07:35 FiO2 Intake & Output 01/10/25 01/11/25 01/11/25 18:59 06:59 18:59 Output Total 300 Balance -300 Weight 81.647 kg 81.647 kg Output: Urine 300 - Labs CBC & Chem 7: 01/11/25 07:43 01/11/25 07:43 Labs: Abnormal Lab Results - Last 24 Hours (Table) 01/10/25 01/10/25 01/10/25 Range/Units 14:33 17:04 20:38 RBC (4.40-5.60) 10*6/uL Hgb (13.0-17.0) g/dL Hct (39.6-50.0) % MCH (27.0-32.0) pg MCHC (32.0-37.0) g/dL RDW (11.5-14.5) % MPV (9.5-12.2) fL Creatinine (0.66-1.25) mg/dL Glucose (74-99) mg/dL Calcium (8.4-10.2) mg/dL AST (17-59) U/L Alkaline Phosphatase (38-126) U/L Troponin I 0.073 H* 0.071 H* 0.067 H* (0.000-0.034) ng/mL 01/11/25 01/11/25 Range/Units 07:43 07:43 RBC 4.23 L (4.40-5.60) 10*6/uL Hgb 10.8 L (13.0-17.0) g/dL Hct 36.2 L (39.6-50.0) % MCH 25.5 L (27.0-32.0) pg MCHC 29.8 L (32.0-37.0) g/dL RDW 18.8 H (11.5-14.5) % MPV 8.8 L (9.5-12.2) fL Creatinine 0.60 L (0.66-1.25) mg/dL Glucose 116 H (74-99) mg/dL Calcium 8.3 L (8.4-10.2) mg/dL AST 83 H (17-59) U/L Alkaline Phosphatase 140 H (38-126) U/L Troponin I (0.000-0.034) ng/mL
[2025-01-11] MEDS: NICOTINE 14MG/24HR PATCH TRANSDERM SCH (13:50)
[2025-01-11] MEDS: FERROUS SULFATE 325 MG TAB PO SCH (15:39)
[2025-01-11] MEDS: LORazepam 1 MG TAB PO PRN (15:44)
--- NOTE | 2025-01-11 19:29 | P.CRDCN ---
History of Present Illness Consult date: 01/11/25 History of present illness: HISTORY OF PRESENTING ILLNESS: 59-year-old with past medical history of CAD status post PCI, ischemic cardiomyopathy EF of 30 to 35%, paroxysmal atrial fibrillation hypertension dyslipidemia bipolar disorder. He is also an alcohol abuser. He presented this time because of substernal chest pressure around 6 in the morning. He also reports that he was drinking alcohol and at least drank 15 beers prior to this event. Also reported that he had a fall and hit his right shoulder. Cardiology was consulted for chest pain evaluation Troponin was elevated with a flat pattern, serum alcohol was 127, BUN 15, creatinine 0.7 Admission ECG shows sinus tachycardia heart rate 103 bpm, intermittent PVCs Last echo from 10/2024 shows EF of 20 to 25%, moderate concentric LVH, mild mitral regurgitation Cardiac cath from October 2023 shows severely calcified coronary arteries, patent stent in LAD, LCx, NEUROPATHOLOGIST of RCA, NEUROPATHOLOGIST mid to distal LAD, normal LVEDP REVIEW OF SYSTEMS: 14 point review of system is negative except what is mentioned above in HPI. PHYSICAL EXAMINATION: Neck: Brisk carotid upstroke, no jugular venous distention. Lungs: Clear to auscultation. Heart: Regular rate and rhythm, S1-S2, , no murmur or rub. Abdomen: Soft nontender, positive bowel sounds. Extremities: No edema, intact distal pulses. Neuro: Alert, oritented, no focal deficits. Detailed neuro exam was not performed. ASSESSMENT: # Atypical chest pain, rule out of ACS. # Ischemic cardiomyopathy with a EF of 20% , currently euvolemic # CAD with NEUROPATHOLOGIST of RCA and NEUROPATHOLOGIST of mid to distal LAD. Patent stent in LCx and proximal LAD # Heavy alcohol abuser # Noncompliance # History of paroxysmal atrial fibrillation, currently sinus tachycardic # Bipolar PLAN: Look for other etiology of chest pain like pancreatitis and gastritis considering his heavy alcohol use history. Metoprolol 25 mg BID Continue Eliquis 5 twice daily, amiodarone 200 mg daily, aspirin 81 mg, Lipitor 40 mg, Bumex 1 mg daily, Farxiga 10 mg daily Continue lisinopril 2.5 mg, Aldactone 12.5 mg daily. Previously he has had low blood pressure, currently blood pressures are controlled. Overall poor prognosis. He seems to be a poor candidate for advanced therapy like AICD, vailbility testing , transplant or another advance GDMT specially because he is noncompliant Geoffrey Valdez MD, [facility], [facility] Thank you for allowing [facility] to participate in this patient's care. Feel free to reach out in case of any followup questions. Past Medical History Past Medical History: COPD, GERD/Reflux, GI Bleed, Hypertension, Myocardial Infarction (HI), Pneumonia, Skin Disorder Additional Past Medical History / Comment(s): ETOH abuse with delirium tremors, lower GI bleed, IBS, chronic iron deficiency anemia, hypomagnesemia, hyperbilirubinemia, anorexia, vertigo, nephrolithiasis-passed stone on his own, chronic low back/cervical pain, DDD, kyphosis, scoliosis, coccyx pressure ulcer pt states is mostly healed. Dry and itchy skin back in high school. 2 heart attacks, one in December (2020) second in February (2020). Last Myocardial Infarction Date:: june 2023 History of Any Multi-Drug Resistant Organisms: None Reported Past Surgical History: Bariatric Surgery, Heart Catheterization With Stent, Hernia Repair, Orthopedic Surgery, Tonsillectomy Additional Past Surgical History / Comment(s): Right inner Forearm-metal plate, gastric bypass, incisional hernia surgery x2, EGDs, colonoscopies. 2 Stents placed in December 2020; bilateral knee surgeries Past Anesthesia/Blood Transfusion Reactions: No Reported Reaction Date of Last Stent Placement:: december 2020 Past Psychological History: Anxiety, Bipolar, Depression, PTSD Additional Psychological History / Comment(s): Pt resides in a hotel room. Pt states his depression is stable at this time, no thoughts or plans of suicide. He has had multiple mental health unit admissions. He has ETOH abuse. He goes to [facility] Smoking Status: Current every day smoker Past Alcohol Use History: Abuse, Daily Additional Past Alcohol Use History / Comment(s): Pt started smokingin 1979 and is a 1.5 -2ppd smoker. Past Drug Use History: Marijuana Additional Drug Use History / Comment(s): Pt still uses marijuana on occasion, but quit all other drugs 4-5 years ago. - Past Family History Mother History Unknown: Yes Family Medical History: Hypertension Additional Family Medical History / Comment(s): Lupus. Mother is living. Father History Unknown: Yes Family Medical History: Liver Disease Additional Family Medical History / Comment(s): ETOH abuse. of cirrhosis complications. Medications and Allergies Home Medications Medication Instructions Recorded Confirmed Type ARIPiprazole IM [Abilify Maintena] 400 mg IM Q28D 09/26/24 01/10/25 History Albuterol Inhaler [Ventolin Hfa 2 puff INHALATION RT-QID PRN 09/26/24 01/10/25 History Inhaler] Amiodarone [Cordarone] 200 mg PO DAILY 09/26/24 01/10/25 History Omeprazole 20 mg PO DAILY 09/26/24 01/10/25 History lisinopriL [Zestril] 2.5 mg PO DAILY 09/26/24 01/10/25 History DULoxetine HCL [Cymbalta] 30 mg PO DAILY 10/23/24 01/10/25 History Folic Acid 1 mg PO DAILY 10/23/24 01/10/25 History Vericiguat [Verquvo] 2.5 mg PO DAILY 90 Days #90 tablet 10/25/24 01/10/25 Rx Apixaban [Eliquis] 5 mg PO BID 30 Days #30 tab 10/27/24 01/10/25 Rx Bumetanide [BUMEX] 1 mg PO DAILY 30 Days #30 tab 10/27/24 01/10/25 Rx Dapagliflozin Propanediol [Farxiga] 10 mg PO DAILY 30 Days #30 tab 10/27/24 01/10/25 Rx Ferrous Sulfate [Iron (65 MG 325 mg PO W/LUNCH 30 Days #30 tab 10/27/24 01/10/25 Rx Elemental)] Nicotine 14Mg/24Hr Patch [Habitrol] 1 patch TRANSDERM DAILY 30 Days 10/27/24 01/10/25 Rx #30 patch Spironolactone [Aldactone] 12.5 mg PO DAILY 30 Days #15 tab 10/27/24 01/10/25 Rx Atorvastatin [Lipitor] 80 mg PO HS 01/10/25 01/10/25 History Metoprolol Tartrate [Lopressor] 25 mg PO BID 01/10/25 01/10/25 History Naltrexone HCl [Revia] 50 mg PO DAILY 01/10/25 01/10/25 History Allergies Allergy/AdvReac Type Severity Reaction Status Date / Time Iodinated Contrast Media Allergy Itching-see Verified 01/10/25 09:28 comment fentanyl AdvReac Itching Verified 01/10/25 09:28 Physical Exam Vitals: Vital Signs Temp Pulse Pulse Pulse Resp BP BP 01/11/25 13:35 98.3 F 96 18 131/81 01/11/25 07:35 98.2 F 99 20 128/88 01/11/25 01:39 98.2 F 100 17 128/80 01/11/25 00:00 20 01/10/25 23:43 98.2 F 100 17 137/90 01/10/25 22:32 96 16 132/85 01/10/25 20:00 98.5 F 95 16 122/88 Pulse Ox 01/11/25 13:35 97 01/11/25 07:35 98 01/11/25 01:39 97 01/11/25 00:00 01/10/25 23:43 97 01/10/25 22:32 01/10/25 20:00 Intake and Output 01/11/25 01/11/25 01/11/25 06:59 14:59 22:59 Intake Total 591 236 Output Total 300 800 Balance -300 -209 236 Intake: Oral 591 236 Output: Urine 300 800 Other: Weight 81.647 kg Results 01/11/25 07:43 01/11/25 07:43 Cardiac Enzymes 01/10/25 01/11/25 Range/Units 20:38 07:43 AST 83 H (17-59) U/L Troponin I 0.067 H* (0.000-0.034) ng/mL CBC 01/11/25 Range/Units 07:43 WBC 8.53 (4.50-10.00) 10*3/uL RBC 4.23 L (4.40-5.60) 10*6/uL Hgb 10.8 L (13.0-17.0) g/dL Hct 36.2 L (39.6-50.0) % Plt Count 358 (140-440) 10*3/uL Comprehensive Metabolic Panel 01/11/25 Range/Units 07:43 Sodium 137 (137-145) mmol/L Potassium 4.0 (3.5-5.1) mmol/L Chloride 102 (98-107) mmol/L Carbon Dioxide 28 (22-30) mmol/L BUN 13 (9-20) mg/dL Creatinine 0.60 L (0.66-1.25) mg/dL Glucose 116 H (74-99) mg/dL Calcium 8.3 L (8.4-10.2) mg/dL AST 83 H (17-59) U/L ALT 34 (4-49) U/L Alkaline Phosphatase 140 H (38-126) U/L Total Protein 6.6 (6.3-8.2) g/dL Albumin 3.7 (3.5-5.0) g/dL Current Medications Generic Name Dose Route Start Last Admin Trade Name Freq PRN Reason Stop Dose Admin Acetaminophen 650 mg 01/11/25 11:43 Acetaminophen Tab 325 Mg Tab PO Q6HR PRN Fever and/ or Pain Albuterol Sulfate 2.5 mg 01/11/25 11:45 Albuterol Nebulized 2.5 Mg/3 Ml INHALATION RT-QID PRN Shortness Of Breath Albuterol/Ipratropium 3 ml 01/10/25 13:24 01/10/25 14:52 Ipratropium-Albuterol 3 Ml Neb INHALATION 3 ml QID PRN Administration Shortness Of Breath Amiodarone HCl 200 mg 01/12/25 09:00 Amiodarone 200 Mg Tab PO DAILY [facility] Apixaban 5 mg 01/11/25 21:00 Apixaban 5 Mg Tab PO BID [facility] Protocol Aripiprazole 400 mg 02/06/25 12:00 Aripiprazole Im Syringe 400 Mg (No Charge) Pharmacy Stock IM Q28D [facility] Aspirin 81 mg 01/11/25 09:00 01/11/25 09:07 Aspirin 81 Mg PO 81 mg DAILY [facility] Administration Atorvastatin Calcium 40 mg 01/10/25 21:00 01/10/25 20:59 Atorvastatin 40 Mg Tab PO 40 mg HS [facility] Administration Bumetanide 1 mg 01/12/25 09:00 Bumetanide 1 Mg Tab PO DAILY [facility] Calcium Carbonate/Glycine 1,000 mg 01/10/25 13:17 Calcium Carbonate 500 Mg Chewable PO Q4HR PRN Dyspepsia Dapagliflozin 10 mg 01/12/25 09:00 Dapagliflozin Propanediol 10 Mg Tablet PO DAILY [facility] Duloxetine HCl 30 mg 01/12/25 09:00 Duloxetine Hcl 30 Mg Capsule.Dr PO DAILY [facility] Ferrous Sulfate 325 mg 01/11/25 12:30 01/11/25 15:39 Ferrous Sulfate 325 Mg Tab PO 325 mg W/LUNCH [facility] Administration Folic Acid 1 mg 01/11/25 09:00 01/11/25 09:07 Folic Acid 1 Mg Tab PO 1 mg DAILY [facility] Administration Lidocaine 1 patch 01/11/25 11:45 01/11/25 12:03 Lidocaine 4% Patch TOPICAL 1 patch DAILY [facility] Administration Protocol Lisinopril 2.5 mg 01/12/25 09:00 Lisinopril 2.5 Mg Tab PO DAILY [facility] Lorazepam 0.5 mg 01/10/25 13:17 01/11/25 09:07 Lorazepam 0.5 Mg Tab PO 0.5 mg Q4HR PRN Administration Ciwa 4 To 5 Lorazepam 1 mg 01/10/25 13:17 01/11/25 15:44 Lorazepam 1 Mg Tab PO 1 mg Q4HR PRN Administration Ciwa 6 To 7 Lorazepam 2 mg 01/10/25 13:17 01/10/25 17:44 Lorazepam 1 Mg Tab PO 2 mg Q2HR PRN Administration Ciwa 10 or greater Lorazepam 2 mg 01/10/25 13:17 01/10/25 19:04 Lorazepam 1 Mg Tab PO 2 mg Q3HR PRN Administration Ciwa 8 To 9 Lorazepam 1 mg 01/10/25 13:17 Lorazepam 1 Mg Tab PO Q1HR PRN Alcohol Withdrawal Metoprolol Tartrate 25 mg 01/11/25 21:00 Metoprolol Tartrate 25 Mg Tab PO BID [facility] Nicotine 1 patch 01/11/25 12:00 01/11/25 13:50 Nicotine 14mg/24hr Patch TRANSDERM Not Given DAILY [facility] Ondansetron HCl 4 mg 01/10/25 13:17 Ondansetron 4 Mg/2 Ml Vial IVP Q8HR PRN Nausea And Vomiting Pantoprazole Sodium 40 mg 01/12/25 09:00 Pantoprazole 40 Mg Tablet PO DAILY [facility] Prochlorperazine Maleate 5 mg 01/10/25 13:17 Prochlorperazine 5 Mg Tab PO Q8HR PRN Nausea And Vomiting Spironolactone 12.5 mg 01/12/25 09:00 Spironolactone 25 Mg Tab PO DAILY [facility] Thiamine HCl 100 mg 01/11/25 09:00 01/11/25 09:07 Thiamine 100 Mg Tab PO 100 mg DAILY [facility] Administration Intake and Output 01/11/25 01/11/25 01/11/25 06:59 14:59 22:59 Intake Total 591 236 Output Total 300 800 Balance -300 -209 236 Intake: Oral 591 236 Output: Urine 300 800 Other: Weight 81.647 kg 01/11/25 07:43 01/11/25 07:43
[2025-01-11] MEDS: APIXABAN 5 MG TAB PO SCH (21:11)
[2025-01-11] MEDS: METOPROLOL TARTRATE 25 MG TAB PO SCH (21:11)
[2025-01-12 05:46] VITALS: BP 115/76; PULSE 88; RESP 17; TEMP 97.9
[2025-01-12] MEDS: ACETAMINOPHEN TAB 325 MG TAB PO PRN (09:16)
[2025-01-12] MEDS: DULoxetine HCL 30 MG CAPSULE.DR PO SCH (09:17)
[2025-01-12] MEDS: AMIODARONE 200 MG TAB PO SCH (09:17)
[2025-01-12] MEDS: SPIRONOLACTONE 25 MG TAB PO SCH (09:17)
[2025-01-12] MEDS: DAPAGLIFLOZIN PROPANEDIOL 10 MG TABLET PO SCH (09:17)
[2025-01-12] MEDS: PANTOPRAZOLE 40 MG TABLET PO SCH (09:17)
[2025-01-12] MEDS: BUMETANIDE 1 MG TAB PO SCH (09:18)
--- NOTE | 2025-01-12 12:06 | P.PN ---
Subjective HISTORY OF PRESENTING ILLNESS: 59-year-old with past medical history of CAD status post PCI, ischemic cardiomyopathy EF of 30 to 35%, paroxysmal atrial fibrillation hypertension dyslipidemia bipolar disorder. He is also an alcohol abuser. He presented this time because of substernal chest pressure around 6 in the morning. He also reports that he was drinking alcohol and at least drank 15 beers prior to this event. Also reported that he had a fall and hit his right shoulder. Cardiology was consulted for chest pain evaluation Troponin was elevated with a flat pattern, serum alcohol was 127, BUN 15, creatinine 0.7 Admission ECG shows sinus tachycardia heart rate 103 bpm, intermittent PVCs Last echo from 10/2024 shows EF of 20 to 25%, moderate concentric LVH, mild mitral regurgitation Cardiac cath from October 2023 shows severely calcified coronary arteries, patent stent in LAD, LCx, DYNAMOMETER REPAIRER of RCA, DYNAMOMETER REPAIRER mid to distal LAD, normal LVEDP 01/12/2025 Patient seen and examined resting comfortably laying flat in bed in no acute distress. Blood pressure 115/76 heart rate 88 afebrile maintaining oxygen saturation on room air. PHYSICAL EXAMINATION: Neck: Brisk carotid upstroke, no jugular venous distention. Lungs: Clear to auscultation. Heart: Regular rate and rhythm, S1-S2, , no murmur or rub. Abdomen: Soft nontender, positive bowel sounds. Extremities: No edema, intact distal pulses. Neuro: Alert, oritented, no focal deficits. Detailed neuro exam was not performed. ASSESSMENT: # Atypical chest pain, rule out of ACS. # Ischemic cardiomyopathy with a EF of 20% , currently euvolemic # CAD with DYNAMOMETER REPAIRER of RCA and DYNAMOMETER REPAIRER of mid to distal LAD. Patent stent in LCx and proximal LAD # Heavy alcohol abuser # Noncompliance # History of paroxysmal atrial fibrillation, currently sinus tachycardic # Bipolar PLAN: Stable for discharge from a cardiac perspective. Follow-up in the office with Dr. Chaudhari in 2 weeks. Suggest complete alcohol cessation. Overall poor prognosis. He seems to be a poor candidate for advanced therapy like AICD, vailbility testing , transplant or another advance GDMT specially because he is noncompliant Nurse Practitioner note has been reviewed, I agree with a documented findings and plan of care. Patient was seen and examined. Objective - Vital Signs Vital signs: Vital Signs Temp 97.9 F 01/12/25 05:44 Pulse 88 01/12/25 05:44 Resp 17 01/12/25 05:44 BP 115/76 01/12/25 05:44 Pulse Ox 96 01/12/25 05:44 FiO2 Intake & Output 01/11/25 01/12/25 01/12/25 18:59 06:59 18:59 Intake Total 827 118 Output Total 800 1300 750 Balance 02 -5328 -632 Intake: Oral 827 118 Output: Urine 800 1300 750 - Labs CBC & Chem 7: 01/11/25 07:43 01/11/25 07:43
--- NOTE | 2025-01-12 13:35 | P.DS ---
Providers Date of admission: 01/10/25 13:20 Expected date of discharge: 01/12/25 Attending physician: Gabbie Jay MD Consults: 01/10/25 13:21 Consult Physician Routine Consulting Provider: Balta Bird Consult Reason/Comments: chest pain, elevated troponin Do you want consulting provider notified?: Yes Primary care physician: Stated None Hospital Course: 59-year-old male with past medical history of CAD status post stenting x 3, ischemic cardiomyopathy EF 30 to 35%, paroxysmal A-fib on Eliquis, HTN, HLD, bipolar disorder, anxiety, depression, PTSD, COPD, nicotine dependence, alcohol abuse, who presented to the ER on 01/10/2025 with chest pain. Also reported a fall last night with head trauma and right shoulder trauma. Patient does have an abrasion over his right shoulder, and multiple abrasions over lower extremities. Of note, patient was previously offered LifeVest in October 2024 which he declined. In the ED he underwent extensive evaluation. BP 106/68, T 99.1F, HR 103, RR 18, 93% on RA. CBC, Coag panel, CMP significant for WBC 11.38, RBC 4.22, Hg 10.9, Hct 35.4, glu 125, AST 80, alk phos 127. BNP 386. Trop 0.067, 0.073, 0.071, 0.067 with EKG showing sinus tachycardia with PCVs. CXR showed mild pulmonary vascular congestion. Shoulder XR no acute process. CT head and C-spine no acute process. EtOH level 127. Patient was admitted for further workup and management. Cardiology consulted, recommended no further workup and outpatient follow up. 01/12 Patient was seen and examined. Reports feeling at baseline. Would like to go home. No chest pain. Discharge Plan: Quit drinking alcohol. Restart home medications. Diet: 1.5 L fluid restriction and low salt. Follow up with PCP within 1-2 days and Cardiology within 1 week of discharge. General: non toxic, no distress, appears at stated age Derm: warm, dry, abrasions over the R shoulder and RLE Head: atraumatic, normocephalic, symmetric Eyes: EOMI, no lid lag, anicteric sclera Mouth: no lip lesion, mucus membranes moist Cardiovascular: S1S2 tachy, no murmur Lungs: Decreased BS bilateral, no rhonchi, no rales , no accessory muscle use Ext: no gross muscle atrophy, no edema, no contractures Neuro: no focal neuro deficits Psych: Alert, oriented, appropriate affect Discharge Diagnosis: Chest pain with Troponin elevation (chronically elevated) Right shoulder pain status post fall Alcohol intoxication Ischemic cardiomyopathy with EF 20-25% Coronary artery disease status post stenting Paroxysmal atrial fibrillation Hypertension Hyperlipidemia Chronic iron def. anemia COPD with continued nicotine dependence, not in acute exacerbation Anxiety with depression PTSD This complex discharge took 35 minutes to complete. Patient Condition at Discharge: Stable Plan - Discharge Summary New Discharge Prescriptions: Continue Omeprazole 20 mg PO DAILY DULoxetine HCL [Cymbalta] 30 mg PO DAILY Spironolactone [Aldactone] 12.5 mg PO DAILY 30 Days #15 tab Bumetanide [BUMEX] 1 mg PO DAILY 30 Days #30 tab Apixaban [Eliquis] 5 mg PO BID 30 Days #30 tab Dapagliflozin Propanediol [Farxiga] 10 mg PO DAILY 30 Days #30 tab Nicotine 14Mg/24Hr Patch [Habitrol] 1 patch TRANSDERM DAILY 30 Days #30 patch Metoprolol Tartrate [Lopressor] 25 mg PO BID Naltrexone HCl [Revia] 50 mg PO DAILY Atorvastatin [Lipitor] 80 mg PO HS lisinopriL [Zestril] 2.5 mg PO DAILY Amiodarone [Cordarone] 200 mg PO DAILY Albuterol Inhaler [Ventolin Hfa Inhaler] 2 puff INHALATION RT-QID PRN PRN Reason: Shortness Of Breath ARIPiprazole IM [Abilify Maintena] 400 mg IM Q28D Folic Acid 1 mg PO DAILY Vericiguat [Verquvo] 2.5 mg PO DAILY 90 Days #90 tablet Ferrous Sulfate [Iron (65 MG Elemental)] 325 mg PO W/LUNCH 30 Days #30 tab Discharge Medication List ARIPiprazole IM [Abilify Maintena] 400 mg IM Q28D 09/26/24 [History] Albuterol Inhaler [Ventolin Hfa Inhaler] 2 puff INHALATION RT-QID PRN 09/26/24 [History] Amiodarone [Cordarone] 200 mg PO DAILY 09/26/24 [History] Omeprazole 20 mg PO DAILY 09/26/24 [History] lisinopriL [Zestril] 2.5 mg PO DAILY 09/26/24 [History] DULoxetine HCL [Cymbalta] 30 mg PO DAILY 10/23/24 [History] Folic Acid 1 mg PO DAILY 10/23/24 [History] Vericiguat [Verquvo] 2.5 mg PO DAILY 90 Days #90 tablet 10/25/24 [Rx] Apixaban [Eliquis] 5 mg PO BID 30 Days #30 tab 10/27/24 [Rx] Bumetanide [BUMEX] 1 mg PO DAILY 30 Days #30 tab 10/27/24 [Rx] Dapagliflozin Propanediol [Farxiga] 10 mg PO DAILY 30 Days #30 tab 10/27/24 [Rx] Ferrous Sulfate [Iron (65 MG Elemental)] 325 mg PO W/LUNCH 30 Days #30 tab 10/27/24 [Rx] Nicotine 14Mg/24Hr Patch [Habitrol] 1 patch TRANSDERM DAILY 30 Days #30 patch 10/27/24 [Rx] Spironolactone [Aldactone] 12.5 mg PO DAILY 30 Days #15 tab 10/27/24 [Rx] Atorvastatin [Lipitor] 80 mg PO HS 01/10/25 [History] Metoprolol Tartrate [Lopressor] 25 mg PO BID 01/10/25 [History] Naltrexone HCl [Revia] 50 mg PO DAILY 01/10/25 [History] Follow up Appointment(s)/Referral(s): Geoffrey Valdez MD [Medical Doctor] - 01/20/25 8:45 am None,Stated [Primary Care Provider] - 1-2 days Activity/Diet/Wound Care/Special Instructions: Diet: 1.5 L fluid restriction, low salt, Cardiac diet Please STOP drinking alcohol Follow up with Cardiology for possible AICD and medication adjustment. Discharge Disposition: HOME SELF-CARE
[2025-02-06] MEDS ORDERED: ARIPiprazole IM SYRINGE 400 MG (NO CHARGE) PHARMACY STOCK IM SCH (12:00)
== END 2025-01-12 13:40 | disposition home or self-care (01) ==
LOC: EC 09:09 → 6NMEDSUR 13:20
PROVIDERS: ADMIT Student in an Organized Health Care Education/Training Program; ATTEND Student in an Organized Health Care Education/Training Program
DX: R07.89 Other chest pain (principal); R79.89 Other specified abnormal findings of blood chemistry; I10 Essential (primary) hypertension; I25.10 Atherosclerotic heart disease of native coronary artery without angina pectoris; I25.5 Ischemic cardiomyopathy; K21.9 Gastro-esophageal reflux disease without esophagitis; F31.9 Bipolar disorder, unspecified; F41.8 Other specified anxiety disorders; E78.5 Hyperlipidemia, unspecified; I48.0 Paroxysmal atrial fibrillation; D50.9 Iron deficiency anemia, unspecified; J44.9 Chronic obstructive pulmonary disease, unspecified; F43.10 Post-traumatic stress disorder, unspecified; S40.011A Contusion of right shoulder, initial encounter; W19.XXXA Unspecified fall, initial encounter; I25.2 Old myocardial infarction; F17.200 Nicotine dependence, unspecified, uncomplicated; F10.129 Alcohol abuse with intoxication, unspecified; Y90.6 Blood alcohol level of 120-199 mg/100 ml; Z66 Do not resuscitate; Z91.199 Patient's noncompliance with other medical treatment and regimen due to unspecified reason; Z95.5 Presence of coronary angioplasty implant and graft; Z79.01 Long term (current) use of anticoagulants; Z79.82 Long term (current) use of aspirin; Z79.84 Long term (current) use of oral hypoglycemic drugs; Z79.899 Other long term (current) drug therapy; Z82.49 Family history of ischemic heart disease and other diseases of the circulatory system
CPT/HCPCS: 96374; 99285; 36415; 94640; 93005; 83880; 80053 ×2; 83735 ×2; 84484; 85025 ×2; 85610; 85730; 73030; 71046; 72125; 70450; G0378 ×3; G0480; J1885; 80320

== ENCOUNTER 2025-01-16 15:26 | Observation (INO) | payer MEDICARE, OTHER ==
--- NOTE | 2025-01-16 16:30 | ED ---
General Adult HPI - General Chief complaint: Chest Pain Stated complaint: Chest pain Time Seen by Provider: 01/16/25 15:43 Source: patient Mode of arrival: EMS Limitations: no limitations - History of Present Illness Initial comments: Dictation was produced using M2[employer] dictation software. please excuse any grammatical, word or spelling errors. Chief Complaint: 59-year-old male with chest pain History of Present Illness: Patient is 59-year-old male brought in from home by EMS. Patient was being interviewed by [facility] worker when he began complaining how he felt physically. Patient has been having chest pain since this morning. Does have a history of myocardial infarction with history of 2 coronary artery stents. States that he radiates to his left shoulder. Denies any associated sweating or nausea. The ROS documented in this emergency department record has been reviewed and confirmed by me. Those systems with pertinent positive or negative responses have been documented in the HPI. All other systems are other negative and/or noncontributory. - Related Data Home Medications Medication Instructions Recorded Confirmed ARIPiprazole IM [Abilify Maintena] 400 mg IM Q28D 09/26/24 01/16/25 Albuterol Inhaler [Ventolin Hfa 2 puff INHALATION RT-QID PRN 09/26/24 01/16/25 Inhaler] Amiodarone [Cordarone] 200 mg PO DAILY 09/26/24 01/16/25 Omeprazole 20 mg PO DAILY 09/26/24 01/16/25 lisinopriL [Zestril] 2.5 mg PO DAILY 09/26/24 01/16/25 DULoxetine HCL [Cymbalta] 30 mg PO DAILY 10/23/24 01/16/25 Folic Acid 1 mg PO DAILY 10/23/24 01/16/25 Atorvastatin [Lipitor] 80 mg PO HS 01/10/25 01/16/25 Metoprolol Tartrate [Lopressor] 25 mg PO BID 01/10/25 01/16/25 Naltrexone HCl [Revia] 50 mg PO DAILY 01/10/25 01/16/25 Previous Rx's Medication Instructions Recorded Vericiguat [Verquvo] 2.5 mg PO DAILY 90 Days #90 tablet 10/25/24 Apixaban [Eliquis] 5 mg PO BID 30 Days #30 tab 10/27/24 Bumetanide [BUMEX] 1 mg PO DAILY 30 Days #30 tab 10/27/24 Dapagliflozin Propanediol [Farxiga] 10 mg PO DAILY 30 Days #30 tab 10/27/24 Ferrous Sulfate [Iron (65 MG 325 mg PO W/LUNCH 30 Days #30 tab 10/27/24 Elemental)] Nicotine 14Mg/24Hr Patch [Habitrol] 1 patch TRANSDERM DAILY 30 Days 10/27/24 #30 patch Spironolactone [Aldactone] 12.5 mg PO DAILY 30 Days #15 tab 10/27/24 Allergies Allergy/AdvReac Type Severity Reaction Status Date / Time Iodinated Contrast Media Allergy Itching-see Verified 01/16/25 16:37 comment fentanyl AdvReac Itching Verified 01/16/25 16:37 Review of Systems ROS Statement: Those systems with pertinent positive or pertinent negative responses have been documented in the HPI. ROS Other: All systems not noted in ROS Statement are negative. Past Medical History Past Medical History: COPD, GERD/Reflux, GI Bleed, Hypertension, Myocardial Infarction ([place]), Pneumonia, Skin Disorder Additional Past Medical History / Comment(s): ETOH abuse with delirium tremors, lower GI bleed, IBS, chronic iron deficiency anemia, hypomagnesemia, hyperbilirubinemia, anorexia, vertigo, nephrolithiasis-passed stone on his own, chronic low back/cervical pain, DDD, kyphosis, scoliosis, coccyx pressure ulcer pt states is mostly healed. Dry and itchy skin back in high school. 2 heart attacks, one in December (2020) second in February (2020). Last Myocardial Infarction Date:: june 2023 History of Any Multi-Drug Resistant Organisms: None Reported Past Surgical History: Bariatric Surgery, Heart Catheterization With Stent, Hernia Repair, Orthopedic Surgery, Tonsillectomy Additional Past Surgical History / Comment(s): Right inner Forearm-metal plate, gastric bypass, incisional hernia surgery x2, EGDs, colonoscopies. 2 Stents placed in December 2020; bilateral knee surgeries Past Anesthesia/Blood Transfusion Reactions: No Reported Reaction Date of Last Stent Placement:: december 2020 Past Psychological History: Anxiety, Bipolar, Depression, PTSD Smoking Status: Current every day smoker Past Alcohol Use History: Abuse, Daily Past Drug Use History: Marijuana - Past Family History Mother History Unknown: Yes Family Medical History: Hypertension Additional Family Medical History / Comment(s): Lupus. Mother is living. Father History Unknown: Yes Family Medical History: Liver Disease Additional Family Medical History / Comment(s): ETOH abuse. of cirrhosis complications. General Exam - General Exam Comments Initial Comments: PHYSICAL EXAM: General Impression: Alert and oriented x3, not in acute distress HEENT: Normocephalic atraumatic, extra-ocular movements intact, pupils equal and reactive to light bilaterally, mucous membranes moist. Cardiovascular: Heart regular rate and rhythm Chest: Able to complete full sentences, no retractions, no tachypnea Abdomen: abdomen soft, non-tender, non-distended, no organomegaly Musculoskeletal: Pulses present and equal in all extremities, no peripheral edema Motor: no focal deficits noted Neurological: CN II-XII grossly intact, no focal motor or sensory deficits noted Skin: Intact with no visualized rashes Psych: Normal affect and mood Limitations: no limitations Course Vital Signs 01/16/25 01/16/25 15:27 16:56 Temperature 98.3 F Pulse Rate 96 89 Respiratory 20 18 Rate Blood Pressure 95/69 94/64 O2 Sat by Pulse 95 92 L Oximetry EKG Findings - EKG Comments: EKG Findings:: My EKG interpretation: Ventricular rate 90, sinus rhythm,. 07/24/2001, QRS 116, QTc 408. No MS prolongation, no QTC prolongation, no ST or T-wave changes noted. Compared to EKG from 4 days ago showing no acute changes overall, this EKG is unremarkable Medical Decision Making - Medical Decision Making Was pt. sent in by a medical professional or institution (, PA, CONVEYOR BELT REPAIRER, urgent care, hospital, or group home...) When possible be specific @ -No Did you speak to anyone other than the patient for history (EMS, parent, family, police, friend...)? What history was obtained from this source @ -No Did you review nursing and triage notes (agree or disagree)? Why? @ -I reviewed and agree with nursing and triage notes Were old charts reviewed (outside hosp., previous admission, EMS record, old EKG, old radiological studies, urgent care reports/EKG's, group home records)? Report findings @ -No old charts were reviewed Differential Diagnosis (chest pain, altered mental status, abdominal pain women, abdominal pain men, vaginal bleeding, musculoskeletal, weakness, fever, dyspnea , syncope, headache, dizziness, GI bleed, back pain, seizure, CVA, palpatations, mental health)? @ -Differential Chest Pain: Stable Angina, Unstable Angina, STEMI, NSTEMI Aortic Dissection, Pneumothorax, Musculoskeletal, Esophageal Spasm GERD, Cholecystitis, Pancreatitis, Zoster, this is not meant to be an all-inclusive list. EKG interpreted by me (3pts min.). @ -See above X-rays interpreted by me (1pt min.). @ -Chest x-ray shows no acute processes CT interpreted by me (1pt min.). @ -None done U/S interpreted by me (1pt. min.). @ -None done What testing was considered but not performed or refused? (CT, X-rays, U/S, labs)? Why? @ -None What meds were considered but not given or refused? Why? @ -None Was smoking cessation discussed for >3mins.? @ -No Were there social determinants of health that impacted care today? How? (Homelessness, low income, unemployed, alcoholism, drug addiction, transportation, low edu. Level, literacy, decrease access to med. care, custodial, rehab)? @ -Alcoholism Was there de-escalation of care discussed even if they declined (Discuss DNR or withdrawal of care, Hospice)? DNR status @ -No What co-morbidities impacted this encounter? (DM, HTN, Smoking, COPD, CAD, Cancer, CVA, ARF, Chemo, Hep., AIDS, mental health diagnosis, sleep apnea, morbid obesity)? @ -Coronary artery disease Was patient admitted / discharged? Hospital course, mention meds given and route, prescriptions, significant lab abnormalities, going to OR and other pertinent info. @ -59-year-old male presents emergency department with chest pain. Clinical presentation concerning for acute coronary syndrome. He has history of alcoholism. Alcohol level is elevated. EKG shows no ischemia. Patient well- appearing at the bedside. Laboratory evaluation is unremarkable. Elevated troponin however he has history of elevated troponin. Serum alcohol level is 153. Patient given aspirin will be admitted consultation to cardiology. Chest x-ray shows no acute processes. Did you discuss the management of the patient with other professionals (professionals i.e. , PA, CONVEYOR BELT REPAIRER, lab, RT, psych nurse, social media project manager, meter installer and remover, teacher, foreign service officer, case consultant)? Give summary @ -Case discussed with hospitalist for admission Was critical care preformed (if so, how long)? @ -No Undiagnosed new problem with uncertain prognosis? @ -No Drug Therapy requiring intensive monitoring for toxicity (Heparin, Nitro, Insulin, Cardizem)? @ -No Were any procedures done? @ -No Diagnosis/symptom? Acute, or Chronic, or Acute on Chronic? Uncomplicated (without systemic symptoms) or Complicated (systemic symptoms)? @ -Chest pain Side effects of treatment? @ -No Exacerbation, Progression, or Severe Exacerbation? @ -No Poses a threat to life or bodily function? How? (Chest pain, [place], [place], pneumonia, PE, COPD, DKA, ARF, appy, cholecystitis, CVA, Diverticulitis, Homicidal, Suicidal, threat to staff... and all critical care pts) @ -yes - Lab Data Result diagrams: 01/16/25 16:15 01/16/25 16:15 Lab Results 01/16/25 01/16/25 01/16/25 Range/Units 16:15 16:15 16:15 WBC 14.07 H (4.50-10.00) 10*3/uL RBC 3.87 L (4.40-5.60) 10*6/uL Hgb 10.2 L (13.0-17.0) g/dL Hct 33.4 L (39.6-50.0) % MCV 86.3 (80.0-97.0) fL MCH 26.4 L (27.0-32.0) pg MCHC 30.5 L (32.0-37.0) g/dL Plt Count 324 (140-440) 10*3/uL MPV 8.8 L (9.5-12.2) fL Immature Gran % (Auto) 0.4 % Neutrophils % 80.9 % Lymphocytes % 9.0 % Monocytes % 9.0 % Eosinophils % 0.4 % Basophils % 0.3 % Immature Gran # 0.05 H (0.00-0.04) 10*3/uL Neutrophils # 11.39 H (1.80-7.70) 10*3/uL Lymphocytes # 1.26 (0.90-5.00) 10*3/uL Monocytes # 1.27 H (0.20-1.00) 10*3/uL Eosinophils # 0.06 (0.04-0.35) 10*3/uL Basophils # 0.04 (0.00-0.10) 10*3/uL PT 10.1 (10.0-12.5) sec INR 0.9 (<1.2) APTT 22.0 (22.0-30.0) sec Sodium 135 L (137-145) mmol/L Potassium 3.9 (3.5-5.1) mmol/L Chloride 102 (98-107) mmol/L Carbon Dioxide 18 L (22-30) mmol/L Anion Gap 15 mmol/L BUN 12 (9-20) mg/dL Creatinine 0.60 L (0.66-1.25) mg/dL Est GFR (CKD-EPI)AfAm >90 (>60 ml/min/1.73 sqM) Est GFR (CKD-EPI)NonAf >90 (>60 ml/min/1.73 sqM) Glucose 56 L (74-99) mg/dL Calcium 8.7 (8.4-10.2) mg/dL Magnesium 1.7 (1.6-2.3) mg/dL Total Bilirubin 0.4 (0.2-1.3) mg/dL AST 48 (17-59) U/L ALT 24 (4-49) U/L Alkaline Phosphatase 105 (38-126) U/L Troponin I (0.000-0.034) ng/mL Total Protein 6.5 (6.3-8.2) g/dL Albumin 3.7 (3.5-5.0) g/dL Serum Alcohol mg/dL 01/16/25 01/16/25 Range/Units 16:15 16:56 WBC (4.50-10.00) 10*3/uL RBC (4.40-5.60) 10*6/uL Hgb (13.0-17.0) g/dL Hct (39.6-50.0) % MCV (80.0-97.0) fL MCH (27.0-32.0) pg MCHC (32.0-37.0) g/dL Plt Count (140-440) 10*3/uL MPV (9.5-12.2) fL Immature Gran % (Auto) % Neutrophils % % Lymphocytes % % Monocytes % % Eosinophils % % Basophils % % Immature Gran # (0.00-0.04) 10*3/uL Neutrophils # (1.80-7.70) 10*3/uL Lymphocytes # (0.90-5.00) 10*3/uL Monocytes # (0.20-1.00) 10*3/uL Eosinophils # (0.04-0.35) 10*3/uL Basophils # (0.00-0.10) 10*3/uL PT (10.0-12.5) sec INR (<1.2) APTT (22.0-30.0) sec Sodium (137-145) mmol/L Potassium (3.5-5.1) mmol/L Chloride (98-107) mmol/L Carbon Dioxide (22-30) mmol/L Anion Gap mmol/L BUN (9-20) mg/dL Creatinine (0.66-1.25) mg/dL Est GFR (CKD-EPI)AfAm (>60 ml/min/1.73 sqM) Est GFR (CKD-EPI)NonAf (>60 ml/min/1.73 sqM) Glucose (74-99) mg/dL Calcium (8.4-10.2) mg/dL Magnesium (1.6-2.3) mg/dL Total Bilirubin (0.2-1.3) mg/dL AST (17-59) U/L ALT (4-49) U/L Alkaline Phosphatase (38-126) U/L Troponin I 0.027 (0.000-0.034) ng/mL Total Protein (6.3-8.2) g/dL Albumin (3.5-5.0) g/dL Serum Alcohol 153 mg/dL Disposition Clinical Impression: Chest pain Disposition: [facility] Condition: Fair Referrals: None,Stated [Primary Care Provider] - 1-2 days Decision Time: 18:33
[2025-01-16 16:35] LABS: Basophils # (A) 0.04 10*3/uL (0.00-0.10); Basophils % (A) 0.3 %; Eosinophils # (A) 0.06 10*3/uL (0.04-0.35); Eosinophils % (A) 0.4 %; HCT 33.4 % (39.6-50.0); HGB 10.2 g/dL (13.0-17.0); Lymphocytes # (A) 1.26 10*3/uL (0.90-5.00); MCH 26.4 pg (27.0-32.0); MCHC 30.5 g/dL (32.0-37.0); MCV 86.3 fL (80.0-97.0); Mean Platelet Volume 8.8 fL (9.5-12.2); Monocytes # (A) 1.27 10*3/uL (0.20-1.00); Neutrophils # (A) 11.39 10*3/uL (1.80-7.70); Neutrophils % (A) 80.9 %; Platelet Count 324 10*3/uL (140-440); RBC 3.87 10*6/uL (4.40-5.60); RDW 18.8 % (11.5-14.5); WBC 14.07 10*3/uL (4.50-10.00)
[2025-01-16 16:49] LABS: INR 0.9 (<1.2); Prothrombin Time 10.1 sec (10.0-12.5)
[2025-01-16] MEDS: ASPIRIN 81 MG PO STA (16:56)
[2025-01-16 16:57] LABS: ALT 24 U/L (4-49); AST 48 U/L (17-59); African American GFR (CKD) >90 (>60 ml/min/1.73 sqM); Albumin 3.7 g/dL (3.5-5.0); Alkaline Phosphatase 105 U/L (38-126); Anion Gap 15 mmol/L; Blood Urea Nitrogen 12 mg/dL (9-20); Calcium 8.7 mg/dL (8.4-10.2); Carbon Dioxide 18 mmol/L (22-30); Chloride 102 mmol/L (98-107); Glucose 56 mg/dL (74-99); Magnesium 1.7 mg/dL (1.6-2.3); Non-African American GFR(CKD) >90 (>60 ml/min/1.73 sqM); Potassium 3.9 mmol/L (3.5-5.1); Sodium 135 mmol/L (137-145); Total Bilirubin 0.4 mg/dL (0.2-1.3); Total Protein 6.5 g/dL (6.3-8.2)
[2025-01-16] MEDS ORDERED: LORazepam 1 MG/0.5 ML VIAL IV PRN (18:28)
--- NOTE | 2025-01-16 18:31 | XR ---
EXAMINATION TYPE: XR chest 2V DATE OF EXAM: 01/16/2025 6:06 PM COMPARISON: Chest radiograph 01/10/2025. CLINICAL INDICATION: Male, 59 years old with history of Chest Pain; [facility] TECHNIQUE: XR chest 2V Frontal and lateral views of the chest. FINDINGS: Lungs/Pleura: Asymmetric elevation of the left diaphragm with adjacent left lower lobe atelectasis/sc arring. No sizable pleural effusion. Pulmonary vascularity: Pulmonary vascular congestion. Heart/mediastinum: Cardiomegaly. Musculoskeletal: No acute osseous pathology. Other findings: Questionable free air beneath the right hemidiaphragm. IMPRESSION: 1. Questionable new free air beneath the right hemidiaphragm. In the absence of any recent surgical procedure, further evaluation with CT abdomen/pelvis would be recommended to exclude bowel perforatio n. 2. Cardiomegaly and pulmonary vascular edema suggesting CHF, similar to prior study dated 01/10/2025. [facility], , 01/16/2025 6:29 PM
[2025-01-16] MEDS: LORazepam 1 MG/0.5 ML VIAL IV PRN ×2 (18:40→23:14)
[2025-01-16] MEDS: NITROGLYCERIN SL TABS 0.4 MG TAB SUBLINGUAL STA (19:08)
[2025-01-16] MEDS: diphenhydrAMINE 50 MG/ML 1 ML VIAL IVP STA (19:08)
[2025-01-16] MEDS: methylPREDNISolone SOD SUCCI 125 MG/2 ML VIAL IV STA (19:08)
[2025-01-16] MEDS: FAMOTIDINE 20 MG/2 ML VIAL IV STA (19:09)
--- NOTE | 2025-01-16 19:19 | CT ---
EXAMINATION TYPE: CT abdomen pelvis wo con DATE OF EXAM: 01/16/2025 6:54 PM COMPARISON: Prior CT abdomen/pelvis 09/06/2020. CLINICAL INDICATION: Male, 59 years old with history of abnormal xr; abdominal pain, abnormal xray TECHNIQUE: Axial CT abdomen pelvis wo con;Sagittal and coronal reformats were created on a separate workstation. Oral contrast used: without Oral Contrast (none if empty) CT DLP: 1208.4 mGycm, Automated exposure control for dose reduction was used. FINDINGS: LOWER CHEST: Asymmetric elevation of the left hemidiaphragm. Interposed colon underneath the right he midiaphragm. ABDOMEN LIVER: Unremarkable GALLBLADDER AND BILE DUCTS: Layering increased densities within the lumen consistent with gallstones are present. PANCREAS: Unremarkable. SPLEEN: Unremarkable. ADRENAL GLANDS: Unremarkable. KIDNEYS AND URETERS: Nonobstructing 6 mm calculus in the inferior right kidney. No evidence of hydron ephrosis bilaterally. PELVIS BLADDER: No evidence for wall thickening or mass given limitations of exam. REPRODUCTIVE: Unremarkable. ABDOMEN & PELVIS STOMACH AND BOWEL: Postsurgical changes of previous Aftab-en-Y gastric bypass. Small to moderate size hiatal hernia. No evidence of small bowel obstruction. Diastases of the anterior abdominal wall. Impa cted rectosigmoid colonic stool. PERITONEUM/RETROPERITONEUM: No evidence of pneumoperitoneum or free fluid. VASCULATURE: No evidence of aortic aneurysm. MUSCULOSKELETAL: No acute osseous abnormalities LYMPH NODES: No gross evidence for lymphadenopathy. SOFT TISSUE/ABDOMINAL WALL: Unremarkable IMPRESSION: 1. No acute abnormality in the abdomen/pelvis. Specifically, no evidence of pneumoperitoneum. Findin gs scribed on same day radiograph was interposed colon underneath the right hemidiaphragm. 2. Impacted rectosigmoid colonic stool. 3. Additional nonacute findings as above. [facility], , 01/16/2025 7:16 PM
[2025-01-16 20:31] LABS: Glucose,Whole Blood 107 mg/dL (70-110)
[2025-01-16] MEDS ORDERED: ALBUTEROL NEBULIZED 2.5 MG/3 ML INHALATION PRN (21:32)
--- NOTE | 2025-01-16 22:41 | HP ---
HISTORY AND PHYSICAL CHIEF COMPLAINT: Chest pain. HISTORY OF PRESENT ILLNESS: This 59-year-old gentleman with a past medical history of multiple medical problems and bariatric surgery, CAD stent, anxiety, bipolar, depression, was complaining of chest discomfort for the last couple of days. Currently, the patient is complaining of discomfort in the lower part of his chest, which is more heavy in character 7/10 in severity. The patient also had a fall and abrasions on the shoulder also. The repeat troponin 0.037 and EKG showed nonspecific ST-T changes. PMH Reviwed include ETOH, cad Meds Reviewd FH SH Reviwed ROS negative except above P/E Vitals stable Cardio s1 s2 n RS clear NS no focal deficit abd soft no masses ASSESSMENT: 1. Chest pain, possible unstageable angina, possible acute hny-MS-heyuuci elevation myocardial infarction. 2. CT chest and EKG. 3. Fall and right shoulder abrasion. 4. Impacted stools and constipation on the CAT scan. 5. History of myocardial infarction. 6. History of EtOH and delirium tremens. 7. History of gastroesophageal reflux disease. 8. History of bariatric surgery. 9. Coronary artery disease stent. 10.History of anxiety, bipolar, depression, post-traumatic stress disorder. 11.Multiple complex medical issues. RECOMMENDATION: This 59-year-old gentleman presented with multiple complex medical issues. At this time, I recommend to continue the current medication. I recommend CIWA protocol, IV heparin. The patient is started on Ativan. Resume the home medications, antiplatelet agents. Cardiology consultation. Prognosis guarded because of multiple complex medical issues. Further recommendations to follow. MMODL / IJN: [id number] / MTDD
[2025-01-16] MEDS: BACITRACIN OINT 1 EACH PACKET TOPICAL SCH (23:15)
--- NOTE | 2025-01-17 01:21 | CT ---
EXAM: CT Head Without Intravenous Contrast CLINICAL HISTORY: fall TECHNIQUE: Axial computed tomography images of the head/brain without intravenous contrast. Coronal and sagittal reconstructions are performed. CTDI is 49.1 mGy and DLP is 1094 mGy-cm. This CT exam was performed using one or more of the following dose reduction techniques: automated exposure control, adjustment of the mA and/or kV according to patient size, and/or use of iterative reconstruction technique. 232 images COMPARISON: 01/10/2025 FINDINGS: Brain: Age-related generalized brain volume loss and chronic small vessel ischemic changes. No hemorrhage. Ventricles: Unremarkable. No ventriculomegaly. Bones/joints: No acute findings. Soft tissues: Unremarkable. Sinuses: Unremarkable as visualized. No acute sinusitis. Mastoid air cells: Unremarkable as visualized. No mastoid effusion. IMPRESSION: No acute findings or substantial change.
[2025-01-17 08:21] LABS: Basophils # (A) 0.04 10*3/uL (0.00-0.10); Basophils % (A) 0.5 %; Eosinophils # (A) 0.08 10*3/uL (0.04-0.35); HCT 36.4 % (39.6-50.0); HGB 10.8 g/dL (13.0-17.0); Lymphocytes # (A) 1.16 10*3/uL (0.90-5.00); Lymphocytes % (A) 14.2 %; MCH 25.8 pg (27.0-32.0); MCHC 29.7 g/dL (32.0-37.0); MCV 86.9 fL (80.0-97.0); Mean Platelet Volume 8.8 fL (9.5-12.2); Monocytes # (A) 1.29 10*3/uL (0.20-1.00); Monocytes % (A) 15.8 %; Neutrophils # (A) 5.56 10*3/uL (1.80-7.70); Platelet Count 275 10*3/uL (140-440); RBC 4.19 10*6/uL (4.40-5.60); RDW 18.7 % (11.5-14.5); WBC 8.17 10*3/uL (4.50-10.00)
[2025-01-17 08:42] LABS: African American GFR (CKD) >90 (>60 ml/min/1.73 sqM); Anion Gap 6 mmol/L; Blood Urea Nitrogen 12 mg/dL (9-20); Calcium 8.7 mg/dL (8.4-10.2); Carbon Dioxide 27 mmol/L (22-30); Chloride 106 mmol/L (98-107); Glucose 125 mg/dL (74-99); Non-African American GFR(CKD) >90 (>60 ml/min/1.73 sqM); Sodium 139 mmol/L (137-145)
[2025-01-17] MEDS: NALTREXONE HCL 50 MG TAB PO SCH (08:56)
[2025-01-17] MEDS: BUMETANIDE 1 MG TAB PO SCH (08:56)
[2025-01-17] MEDS: ASPIRIN 325 MG TAB PO SCH (08:56)
[2025-01-17] MEDS: DULoxetine HCL 30 MG CAPSULE.DR PO SCH (08:57)
[2025-01-17] MEDS: PANTOPRAZOLE 40 MG TABLET PO SCH (08:57)
[2025-01-17] MEDS: METOPROLOL TARTRATE 25 MG TAB PO SCH (08:57)
[2025-01-17] MEDS: DAPAGLIFLOZIN PROPANEDIOL 10 MG TABLET PO SCH (08:57)
[2025-01-17] MEDS: FOLIC ACID 1 MG TAB PO SCH (08:57)
[2025-01-17] MEDS: SPIRONOLACTONE 25 MG TAB PO SCH (08:57)
[2025-01-17] MEDS: NICOTINE 14MG/24HR PATCH TRANSDERM SCH (08:58)
[2025-01-17] MEDS: AMIODARONE 200 MG TAB PO SCH (09:08)
--- NOTE | 2025-01-17 12:08 | P.CRDCN ---
History of Present Illness Consult date: 01/17/25 Consult reason: chest pain History of present illness: The patient is a 59-year-old male who follows in the office with Dr. Bob. He has recurrent admissions for chest discomfort, often when he is intoxicated. Patient has a history of EtOH abuse. Patient had recent echocardiogram performed back in October which showed ejection fraction of 20 to 25%. He has known multivessel coronary artery disease. Patient states he was drinking again when he developed heaviness in his chest and therefore presented to the emergency room. Currently the patient denies any chest discomfort. No difficulty breathing DIAGNOSTICS: EKG shows sinus rhythm with left axis deviation Chest x-ray shows no acute cardiopulmonary process lab data: WBC 8.1, hemoglobin 10.8, hematocrit 36.4, platelet 275, sodium down 139, potassium 4.0, BUN 12, creatinine 0.54, troponin 0.02, 0.03, 0.03 REVIEW OF SYSTEMS: No fever or chills. No cough or expectoration. No diaph oresis. Patient denies headache, dizziness, blurred vision, double vision. No hematochezia. No hematemesis. Denies any black stools or blood in his stools. Denies dysuria or hematuria. No muscle weakness or numbness. Positive for chest discomfort PHYSICAL EXAMINATION: This is a 59-year-old male in no apparent distress at the time of my examination. HEENT: Head is atraumatic, normocephalic. Pupils are equal, round. Sclerae anicteric. Conjunctivae are clear. Mucous membranes of the mouth are moist. Neck is supple. There is no jugular venous distention. No carotid bruit is heard. CHEST EXAMINATION: Lungs are clear to auscultation. No chest wall tenderness is noted on palpation or with deep breathing. HEART EXAMINATION: Heart regular rate and rhythm. S1, S2 heard. No murmurs, gallops or rub. ABDOMEN: Soft, nontender. Bowel sounds are heard. No organomegaly noted. EXTREMITIES: 2+ peripheral pulses with no evidence of peripheral edema and no calf tenderness noted. NEUROLOGIC EXAMINATION: Patient is awake, alert and oriented x3. FINAL ASSESSMENT AND PLAN: Chest discomfort, not indicative of acute coronary syndrome History of coronary artery disease History of ischemic cardiomyopathy, EF 20 to 25% History of atrial fibrillation History of EtOH abuse History of noncompliance PLAN: Continue home medication regimen Medical management for coronary artery disease and cardiomyopathy Outpatient follow-up with primary sizer hand I am dictating on behalf of Dr Matias Gibson's history/physical and assessment/plan. Past Medical History Past Medical History: COPD, GERD/Reflux, GI Bleed, Hypertension, Myocardial Infarction (DC), Pneumonia, Skin Disorder Additional Past Medical History / Comment(s): ETOH abuse with delirium tremors, lower GI bleed, IBS, chronic iron deficiency anemia, hypomagnesemia, hyperbil irubinemia, anorexia, vertigo, nephrolithiasis-passed stone on his own, chronic low back/cervical pain, DDD, kyphosis, scoliosis, coccyx pressure ulcer pt states is mostly healed. Dry and itchy skin back in high school. 2 heart attacks, one in December (2020) second in February (2020). Last Myocardial Infarction Date:: june 2023 History of Any Multi-Drug Resistant Organisms: None Reported Past Surgical History: Bariatric Surgery, Heart Catheterization With Stent, Hernia Repair, Orthopedic Surgery, Tonsillectomy Additional Past Surgical History / Comment(s): Right inner Forearm-metal plate, gastric bypass, incisional hernia surgery x2, EGDs, colonoscopies. 2 Stents placed in December 2020; bilateral knee surgeries Past Anesthesia/Blood Transfusion Reactions: No Reported Reaction Date of Last Stent Placement:: december 2020 Past Psychological History: Anxiety, Bipolar, Depression, PTSD Additional Psychological History / Comment(s): Pt resides in a hotel room. Pt states his depression is stable at this time, no thoughts or plans of suicide. He has had multiple mental health unit admissions. He has ETOH abuse. He goes to [facility]. Binge drinks 1-2 fifths a day or a case of beer when he does drink. Smoking Status: Current every day smoker Past Alcohol Use History: Abuse, Daily Additional Past Alcohol Use History / Comment(s): Pt started smokingin 1979 and is a 1.5 -2ppd smoker. Past Drug Use History: Heroin, Marijuana, Opiates Additional Drug Use History / Comment(s): Pt still uses marijuana on occasion, but quit all other drugs 4-5 years ago. - Past Family History Mother History Unknown: Yes Family Medical History: Hypertension Additional Family Medical History / Comment(s): Lupus. Mother is living. Father History Unknown: Yes Family Medical History: Liver Disease Additional Family Medical History / Comment(s): ETOH abuse. of cirrhosis complications. Medications and Allergies Home Medications Medication Instructions Recorded Confirmed Type ARIPiprazole IM [Abilify Maintena] 400 mg IM Q28D 09/26/24 01/16/25 History Albuterol Inhaler [Ventolin Hfa 2 puff INHALATION RT-QID PRN 09/26/24 01/16/25 History Inhaler] Amiodarone [Cordarone] 200 mg PO DAILY 09/26/24 01/16/25 History Omeprazole 20 mg PO DAILY 09/26/24 01/16/25 History lisinopriL [Zestril] 2.5 mg PO DAILY 09/26/24 01/16/25 History DULoxetine HCL [Cymbalta] 30 mg PO DAILY 10/23/24 01/16/25 History Folic Acid 1 mg PO DAILY 10/23/24 01/16/25 History Vericiguat [Verquvo] 2.5 mg PO DAILY 90 Days #90 tablet 10/25/24 01/16/25 Rx Apixaban [Eliquis] 5 mg PO BID 30 Days #30 tab 10/27/24 01/16/25 Rx Bumetanide [BUMEX] 1 mg PO DAILY 30 Days #30 tab 10/27/24 01/16/25 Rx Dapagliflozin Propanediol [Farxiga] 10 mg PO DAILY 30 Days #30 tab 10/27/24 01/16/25 Rx Ferrous Sulfate [Iron (65 MG 325 mg PO W/LUNCH 30 Days #30 tab 10/27/24 01/16/25 Rx Elemental)] Nicotine 14Mg/24Hr Patch [Habitrol] 1 patch TRANSDERM DAILY 30 Days 10/27/24 01/16/25 Rx #30 patch Spironolactone [Aldactone] 12.5 mg PO DAILY 30 Days #15 tab 10/27/24 01/16/25 Rx Atorvastatin [Lipitor] 80 mg PO HS 01/10/25 01/16/25 History Metoprolol Tartrate [Lopressor] 25 mg PO BID 01/10/25 01/16/25 History Naltrexone HCl [Revia] 50 mg PO DAILY 01/10/25 01/16/25 History Allergies Allergy/AdvReac Type Severity Reaction Status Date / Time Iodinated Contrast Media Allergy Itching-see Verified 01/16/25 16:37 comment fentanyl AdvReac Itching Verified 01/16/25 16:37 Physical Exam Vitals: Vital Signs Temp Pulse Pulse Resp BP BP Pulse Ox 01/17/25 07:00 98.4 F 94 16 121/78 98 01/17/25 00:10 98.6 F 100 18 108/74 95 01/16/25 21:50 98.3 F 93 20 119/75 97 01/16/25 21:11 98.0 F 887 H 18 108/72 95 01/16/25 19:01 84 18 109/73 96 01/16/25 16:56 89 18 94/64 92 L 01/16/25 15:27 98.3 F 96 20 95/69 95 Intake and Output 01/16/25 01/17/25 01/17/25 22:59 06:59 14:59 Output Total 850 Balance -850 Output: Urine 850 Other: # Voids 1 Weight 86.183 kg 86.183 kg Results 01/17/25 07:51 01/17/25 07:51 Cardiac Enzymes 01/16/25 01/16/25 01/16/25 Range/Units 16:15 16:15 19:56 AST 48 (17-59) U/L Troponin I 0.027 0.037 H* (0.000-0.034) ng/mL 01/17/25 Range/Units 00:13 AST (17-59) U/L Troponin I 0.032 (0.000-0.034) ng/mL Coagulation 01/16/25 Range/Units 16:15 PT 10.1 (10.0-12.5) sec APTT 22.0 (22.0-30.0) sec CBC 01/16/25 Range/Units 16:15 WBC 14.07 H (4.50-10.00) 10*3/uL RBC 3.87 L (4.40-5.60) 10*6/uL Hgb 10.2 L (13.0-17.0) g/dL Hct 33.4 L (39.6-50.0) % Plt Count 324 (140-440) 10*3/uL Comprehensive Metabolic Panel 01/16/25 Range/Units 16:15 Sodium 135 L (137-145) mmol/L Potassium 3.9 (3.5-5.1) mmol/L Chloride 102 (98-107) mmol/L Carbon Dioxide 18 L (22-30) mmol/L BUN 12 (9-20) mg/dL Creatinine 0.60 L (0.66-1.25) mg/dL Glucose 56 L (74-99) mg/dL Calcium 8.7 (8.4-10.2) mg/dL AST 48 (17-59) U/L ALT 24 (4-49) U/L Alkaline Phosphatase 105 (38-126) U/L Total Protein 6.5 (6.3-8.2) g/dL Albumin 3.7 (3.5-5.0) g/dL Current Medications Generic Name Dose Route Start Last Admin Trade Name Freq PRN Reason Stop Dose Admin Albuterol Sulfate 2.5 mg 01/16/25 21:32 Albuterol Nebulized 2.5 Mg/3 Ml INHALATION RT-QID PRN Shortness Of Breath Amiodarone HCl 200 mg 01/17/25 09:00 Amiodarone 200 Mg Tab PO DAILY [facility] Aspirin 325 mg 01/17/25 09:00 Aspirin 325 Mg Tab PO DAILY [facility] Atorvastatin Calcium 80 mg 01/17/25 21:00 Atorvastatin 80 Mg Tab PO HS [facility] Bacitracin 1 each 01/16/25 22:00 01/16/25 23:15 Bacitracin Oint 1 Each Packet TOPICAL 1 each BID [facility] Administration Protocol Bumetanide 1 mg 01/17/25 09:00 Bumetanide 1 Mg Tab PO DAILY [facility] Dapagliflozin 10 mg 01/17/25 09:00 Dapagliflozin Propanediol 10 Mg Tablet PO DAILY [facility] Duloxetine HCl 30 mg 01/17/25 09:00 Duloxetine Hcl 30 Mg Capsule.Dr PO DAILY [facility] Ferrous Sulfate 325 mg 01/17/25 12:30 Ferrous Sulfate 325 Mg Tab PO W/LUNCH [facility] Folic Acid 1 mg 01/17/25 09:00 Folic Acid 1 Mg Tab PO DAILY [facility] Lisinopril 2.5 mg 01/17/25 09:00 Lisinopril 2.5 Mg Tab PO DAILY [facility] Lorazepam 1 mg 01/16/25 18:28 01/16/25 23:14 Lorazepam 1 Mg/0.5 Ml Vial IV 1 mg Q1HR PRN Administration CIWA 10 to 15 Lorazepam 1 mg 01/16/25 18:28 01/16/25 18:40 Lorazepam 1 Mg/0.5 Ml Vial IV 1 mg Q2HR PRN Administration CIWA 8 or 9 Lorazepam 2 mg 01/16/25 18:28 Lorazepam 1 Mg/0.5 Ml Vial IV 01/18/25 18:28 Q10M PRN CIWA 16 or higher Metoprolol Tartrate 25 mg 01/17/25 09:00 Metoprolol Tartrate 25 Mg Tab PO BID [facility] Naltrexone HCl 50 mg 01/17/25 09:00 Naltrexone Hcl 50 Mg Tab PO DAILY [facility] Nicotine 1 patch 01/17/25 09:00 Nicotine 14mg/24hr Patch TRANSDERM DAILY [facility] Pantoprazole Sodium 40 mg 01/17/25 09:00 Pantoprazole 40 Mg Tablet PO DAILY [facility] Spironolactone 12.5 mg 01/17/25 09:00 Spironolactone 25 Mg Tab PO DAILY [facility] Intake and Output 01/16/25 01/17/25 01/17/25 22:59 06:59 14:59 Output Total 850 Balance -850 Output: Urine 850 Other: # Voids 1 Weight 86.183 kg 86.183 kg 01/16/25 16:15 01/16/25 16:15
[2025-01-17] MEDS: FERROUS SULFATE 325 MG TAB PO SCH (13:19)
[2025-01-17 14:26] LABS: LDL Cholesterol,Calculated 70.7 mg/dL (0.0-131.0); VLDL Calculation 9.28 mg/dL (5.00-40.00)
--- NOTE | 2025-01-17 16:32 | PN ---
PROGRESS NOTE DATE OF SERVICE: 01/17/2025 SUBJECTIVE: This is a 59-year-old gentleman admitted with chest pain, also had a fall, the possibility of withdrawal is also being considered. No chest pain. No palpitation. CT of the brain showed no acute abnormality. OBJECTIVE: VITAL SIGNS: Pulse is 77, blood pressure 106/67, and respirations 18. CHEST: Clear to auscultation. CARDIOVASCULAR: S1, S2. ABDOMEN: Soft. NERVOUS SYSTEM: No focal deficits. LABORATORY DATA: Reviewed. ASSESSMENT: 1. Chest pain, possible unstable angina, possible acute ybi-CG-ybdmolq-elevation myocardial infarction. Cardiomyopathy ef 20- 25% 2. Fall and right shoulder abrasion. 3. Rule out withdrawals. 4. Impacted stools and constipation. 5. History of myocardial infarction. 6. History of EtOH. 7. History of gastroesophageal reflux disease. 8. Multiple complex medical issues. RECOMMENDATIONS AND DISCUSSION: I recommend to continue current management and continue symptomatic treatment. Otherwise at this time, I will recommend closely follow with Cardiology, p.r.n. Ativan and repeat labs in the morning. Increase ambulation. Guarded prognosis. Further recommendations to follow. MMODL / IJN: [id number] / MTDYessica
[2025-01-17] MEDS: ATORVASTATIN 80 MG TAB PO SCH (20:24)
[2025-01-18 08:13] VITALS: BP 125/82; PULSE 74; RESP 17; TEMP 98.1
[2025-01-18 10:01] LABS: Basophils # (A) 0.05 X 10*3/uL (0.00-0.10); Basophils % (A) 0.7 %; Eosinophils # (A) 0.24 X 10*3/uL (0.04-0.35); Eosinophils % (A) 3.2 %; HCT 38.4 % (39.6-50.0); HGB 11.3 g/dL (13.0-17.0); Lymphocytes # (A) 1.32 X 10*3/uL (0.90-5.00); Lymphocytes % (A) 17.9 %; MCH 25.7 pg (27.0-32.0); MCHC 29.4 g/dL (32.0-37.0); MCV 87.3 FL (80.0-97.0); Mean Platelet Volume 9.7 FL (9.5-12.2); Monocytes # (A) 0.89 X 10*3/uL (0.20-1.00); NRBC Per 100 WBC 0 X 10*3/uL (0.00-0.01); Neutrophils # (A) 4.86 X 10*3/uL (1.80-7.70); Neutrophils % (A) 65.8 %; Platelet Count 294 X 10*3/uL (140-440); RDW 18.6 % (11.5-14.5); WBC 7.39 X 10*3/uL (4.50-10.00)
[2025-01-18 10:13] LABS: ALT 21 U/L (10-49); AST 32 U/L (14-35); Albumin 3.7 g/dL (3.8-4.9); Albumin/Globulin Ratio 1.42 Ratio (1.60-3.17); Alkaline Phosphatase 113 U/L (41-126); BUN/Creat Ratio 17.43 Ratio (12.00-20.00); Blood Urea Nitrogen 12.2 mg/dL (9.0-27.0); Calcium 8.7 mg/dL (8.7-10.3); Carbon Dioxide 24.5 mmol/L (21.6-31.8); Chloride 102 mmol/L (96-109); Globulin 2.6 g/dL (1.6-3.3); Glucose 116 mg/dL (70-110); Potassium 4.2 mmol/L (3.5-5.5); Sodium 139 mmol/L (135-145); Total Bilirubin 0.5 mg/dL (0.3-1.2); Total Protein 6.3 g/dL (6.2-8.2)
--- NOTE | 2025-01-18 22:15 | DS ---
DISCHARGE SUMMARY FINAL DIAGNOSES: 1. Chest pain, possible unstable angina, acute myocardial infarction, unlikely per Cardiology. 2. Cardiomyopathy with ejection fraction 20% to 25%. 3. Fall and right shoulder abrasion. 4. EtOH history. 5. Impacted stools and constipation. 6. History of gastroesophageal reflux disease. 7. History of coronary artery disease. 8. Multiple complex medical issues. DISCHARGE DISPOSITION: The patient is being discharged in stable condition with guarded prognosis. HISTORY OF PRESENT ILLNESS: This is a 59-year-old gentleman with a past medical history of medical problems, admitted with chest pain and possible EtOH, treated symptomatically, improved significantly. Cardiology recommended outpatient followup. PHYSICAL EXAMINATION: VITALS: Stable. CARDIOVASCULAR: S1 and S2. ABDOMEN: Soft. NERVOUS SYSTEM: Nonfocal. I would recommend a short course of antibiotics for the abrasions, Keflex 500 mg q.8 for 4 days and then Ecotrin 81 mg p.o. daily. Closely follow with Cardiology. Closely follow with Primary Physician in 1 week. Once again, the patient will be discharged in stable condition and guarded prognosis. No EtOH. Attend AA meetings. MMODL / IJN: [id number] /
== END 2025-01-18 13:57 | disposition home or self-care (01) ==
LOC: EC 15:26 → 6NMEDSUR 18:28
PROVIDERS: ADMIT Hospitalist; ATTEND Hospitalist
DX: R07.9 Chest pain, unspecified (principal); I25.2 Old myocardial infarction; I42.9 Cardiomyopathy, unspecified; F10.231 Alcohol dependence with withdrawal delirium; Y90.6 Blood alcohol level of 120-199 mg/100 ml; W19.XXXA Unspecified fall, initial encounter; S40.211A Abrasion of right shoulder, initial encounter; F31.9 Bipolar disorder, unspecified; I25.10 Atherosclerotic heart disease of native coronary artery without angina pectoris; K21.9 Gastro-esophageal reflux disease without esophagitis; F41.9 Anxiety disorder, unspecified; F17.210 Nicotine dependence, cigarettes, uncomplicated; K59.00 Constipation, unspecified; Z79.01 Long term (current) use of anticoagulants; Z79.84 Long term (current) use of oral hypoglycemic drugs; Z79.899 Other long term (current) drug therapy; Z88.5 Allergy status to narcotic agent; Z91.041 Radiographic dye allergy status; Z95.5 Presence of coronary angioplasty implant and graft; Z98.84 Bariatric surgery status; Z59.01 Sheltered homelessness; Z81.1 Family history of alcohol abuse and dependence
CPT/HCPCS: 96374; 96376 ×2; 99285; 36415; 93005; 80061; 80053 ×2; 80048; 83735; 84484 ×2; 85025 ×3; 85610; 85730; 71046; 70450; 74176; G0378 ×3; G0480; J2060 ×2; 80320